=== PATIENT | male | born 1955 | race Caucasian/White ===

== ENCOUNTER 2020-01-20 14:13 | Outpatient (REF) | payer MEDICARE, SELFPAY | END 2020-01-20 14:14 | disposition home or self-care (01) | LOC: HO.LAB 14:13 | PROVIDERS: PCP Internal Medicine; Visit Provider Internal Medicine | DX: Z20.828 Contact with and (suspected) exposure to other viral communicable diseases (principal) | CPT/HCPCS: C9803; U0003 ==

== ENCOUNTER 2020-04-04 07:16 | Outpatient (REF) | payer MEDICARE, MEDICAID, SELFPAY ==
[2020-04-04 08:08] LABS: MANUAL DIFF FLAG NO
[2020-04-04 08:20] LABS: Basophils Percent Auto 0.2 % (0-2); Eosinophils Absolute Auto 0.1 X10*3/uL (0.0-0.4); Hemoglobin 12.8 g/dl (14.0-18.0); Imm Gran Abs Auto 0.02 X10*3/uL (0.00-0.03); Imm Gran Pct Auto 0.2 % (0.0-0.4); Lymphocytes Absolute Auto 2.5 X10*3/uL (1.2-4.9); Lymphocytes Percent Auto 27.9 % (20-40); Mean Corpuscular HGB Conc 32.8 g/dl (31.0-36.0); Mean Corpuscular Hemoglobin 30.5 pg (27.0-33.0); Mean Corpuscular Volume 93.1 fL (80-98); Mean Platelet Volume 12.7 fL (9.4-12.4); Monocytes Absolute Auto 0.6 X10*3/uL (0.1-1.2); Monocytes Percent Auto 6.5 % (2-11); Neutrophils Absolute Auto 5.7 X10*3/uL (2.0-8.3); Neutrophils Percent Auto 64.2 % (45-73); Platelet Count 178 X10*3/uL (160-400); Red Blood Count 4.19 X10*6/uL (4.60-5.80); White Blood Count 8.9 X10*3/uL (4.8-10.8)
[2020-04-04 08:46] LABS: Glucose Urine UA NEG (NEG); Leukocyte Esterase Urine NEG (NEG); Nitrite Urine NEG (NEG); Specific Gravity - Urine >= 1.030 (1.005-1.025); Urine Blood TRACE (NEG); Urine Ketones NEG (NEG); Urine Protein 2+ MG/DL (NEG-TRACE)
[2020-04-04 08:50] LABS: Appearance Urine CLEAR; Color Urine YELLOW
[2020-04-04 08:57] LABS: Alanine Aminotransferase 35 U/L (0-40); Albumin Level 3.7 g/dL (3.5-5.0); Alkaline Phosphatase 140 U/L (39-117); Anion Gap 12 (12-20); Aspartate Amino Transferase 37 U/L (5-37); Bilirubin Total 0.5 mg/dL (0.0-1.0); Blood Urea Nitrogen 16 mg/dL (9-16); Calcium 8.9 mg/dL (8.4-10.2); Carbon Dioxide 31 mmol/L (22-29); Chloride 103 mmol/L (96-108); Cholesterol 136 mg/dL; Estimated Glomerular Filt Rate > 60; Glucose Fasting 174 mg/dL (60-99); HDL Cholesterol 29 mg/dL; LDL Cholesterol Calculated 70 mg/dl; Potassium 4.3 mmol/l (3.3-5.1); Sodium 142 mmol/L (135-145); Total Protein 6.7 g/dL (6.5-8.0); Triglycerides 188 mg/dL
[2020-04-04 08:58] LABS: Creatinine Urine 132.24 mg/dL
[2020-04-04 09:01] LABS: WBC Urine 0 /HPF (0-4)
[2020-04-04 09:02] LABS: Mucus Urine 1+ /LPF; Squamous Epithelial Cell Urine 1+ /LPF
[2020-04-04 09:12] LABS: TSH reflex Free T4 1.18 mIU/mL (0.32-4.0)
[2020-04-04 09:13] LABS: Microalbum/Creatinine Ratio Ur 669.2 ug/mg cr
[2020-04-04 09:25] LABS: Vitamin B12 252 pg/mL (200-900)
[2020-04-04 09:29] LABS: Estimated Average Glucose 232 mg/dL; Hemoglobin A1c % 9.7 %
== END 2020-04-04 07:17 | disposition home or self-care (01) ==
LOC: HO.LAB 07:16
PROVIDERS: PCP Internal Medicine; Visit Provider Internal Medicine
DX: E11.42 Type 2 diabetes mellitus with diabetic polyneuropathy (principal); I10 Essential (primary) hypertension; E78.00 Pure hypercholesterolemia, unspecified; I25.10 Atherosclerotic heart disease of native coronary artery without angina pectoris; K59.00 Constipation, unspecified; E66.01 Morbid (severe) obesity due to excess calories
CPT/HCPCS: 36415; 80053; 80061; 81001; 82043; 82607; 82746; 83036; 84443; 85025

== ENCOUNTER 2020-05-09 10:27 | Inpatient (IN) | payer MEDICARE, MEDICAID, SELFPAY ==
[2020-05-09] VITALS (17 sets, daily range): BP systolic 40–159; BP diastolic 22–106; PULSE 69–92; RESP 13–27; TEMP 36.3–37.3; O2SAT 93–98; BMI 43.7
--- NOTE | ~2020-05-09 | CT_ITS ---
EXAMINATION: CT PELVIS WITHOUT CONTRAST CLINICAL INFORMATION: Rectal abscess. Evaluate depth and tracking. COMPARISON: None TECHNIQUE: Helical scanning was performed with submillimeter collimation through the pelvis. Sagittal and coronal multiplanar 2-D reconstructions were obtained. This CT examination was performed using dose optimization techniques as appropriate, variously including the following: *Automated exposure control *Adjustment of mA and/or kV according to patient size (this includes techniques or standardized protocols for targeted exams where dose is matched to indication/reason for exam; i.e. extremities or head) *Use of iterative reconstruction technique DLP: 799 mGy-cm FINDINGS: PELVIS: There is a right pararectal soft tissue induration with punctate gas collection. The induration is 5.80 cm in AP length and 1.4 cm thick and likely arises from the posterior anorectal wall. Rest of visualized rectum, sigmoid colon and the descending colon appears unremarkable. Appendix is normal caliber. The small bowel loops are normal caliber. No abnormal pelvic or inguinal lymph nodes seen. OSSEOUS STRUCTURES: No lytic or sclerotic process seen. CT/CT pelvis wo con IMPRESSION: Right perirectal soft tissue induration extending from the posterior anorectal wall. There is punctate air collection within this induration. Not a whole lot of abscess visualized for drainage.
--- NOTE | 2020-05-09 12:03 | ED.SKABFB ---
HPI - Skin/Abscess/Foreign Bdy General Chief complaint: Skin/Abscess/Foreign Body Stated complaint: abscess 5 days Time Seen by Provider: 05/09/20 11:04 Source: patient Mode of arrival: ambulatory History of Present Illness HPI narrative: 64-year-old male with a past medical history of hypertension, constipation, BPH, CAD, diabetes, polyneuropathy, quadruple bypass, major depression disorder, obesity, sick, hyperlipidemia vitamin-D deficiency, complaining of rectal/gluteal abscess x5 days. Reports area is worsening/growing, painful, with perianal itching. Denies fever, chills, drainage from area, pain with BMs/difficulty having BM, dysuria/hematuria or rectal bleeding, abdominal pain MD complaint: abscess/boil Related Data Home Medications Medication Instructions Recorded Confirmed atorvastatin 80 mg tablet 80 mg PO DAILY 03/06/20 03/06/20 gabapentin 400 mg capsule 400 mg PO BID 03/06/20 03/06/20 lisinopril 10 mg tablet 10 mg PO DAILY 03/06/20 03/06/20 tramadol 50 mg tablet 50 mg PO Q6H PRN 03/06/20 03/06/20 miscellaneous medical supply ea MISCELLANEOUS 03/21/20 Previous Rx's Medication Instructions Recorded lancets #100 ea 01/10/20 fluticasone propionate 110 2 puff INHALATION BID #12 g 02/10/20 mcg/actuation HFA aerosol inhaler fluticasone propionate 50 1 spray INTRANASAL DAILY #15.8 ml 02/10/20 mcg/actuation nasal spray,suspension metoprolol tartrate 50 mg tablet 50 mg PO BID #180 tab 03/11/20 furosemide 20 mg tablet 20 mg PO QAM PRN 30 Days #30 tab 03/16/20 diaper,brief,adult,disposable #100 ea 03/27/20 albuterol sulfate 90 mcg/actuation 2 puff PO Q4-6H PRN #8.5 g 04/18/20 aerosol inhaler aspirin 81 mg tablet,delayed 81 mg PO DAILY #90 tab 05/01/20 release Allergies Allergy/AdvReac Type Severity Reaction Status Date / Time hydromorphone [Dilaudid] AdvReac Unknown confusion Verified 03/06/20 08:56 From DILAUDID AdvReac Severe CONFUSION/H Uncoded 03/06/20 08:56 ALLUCIATION S From PERCOCET AdvReac Intermediate AGITATION Uncoded 03/06/20 08:56 Review of Systems Review of Systems: Constitutional: No Fever, No Chills Gastrointestinal: No Nausea, No Vomiting, No Diarrhea, No Constipation, No Abdominal pain Genitourinary: No Dysuria, No Hematuria, +rectal pain Skin: +abscess Yes all other systems are reviewed and are negative PMFSH Past Medical History Attestation statement: The following information was validated with the patient. Medical History Benign essential hypertension Benign prostatic hyperplasia with urinary frequency Constipation Coronary artery disease Diabetes mellitus Diabetic polyneuropathy Major depressive disorder, recurrent Obesity (BMI 30-39.9) Obstructive sleep apnea Pure hypercholesterolemia Vitamin D deficiency Surgical History History of prostate surgery History of quadruple bypass Hx of cholecystectomy Hx of cystoscopy Family History Family History Father Lung cancer Mother Diabetes Hypertension Stomach cancer Social History Social History Alcohol intake: former Smoking Status: Former smoker Advance Directives: Yes Advance Directives Information Provided: Yes Advance Directives on File: No Physical Exam Vital Signs: Vital Signs: Last Vital Signs Temp 98 F 05/09/20 10:30 Pulse 75 05/09/20 12:55 Resp 16 05/09/20 12:55 BP 155/66 H 05/09/20 12:55 Body Mass Index 43.7 Const: General: cooperative, healthy appearing, comfortable and no acute distress Orientation/consciousness: patient oriented x3 Limitations: no limitations HENMT: Head: Yes normal to inspection Ears: hearing grossly normal bilaterally General nose exam: Normal external nose present Face and sinus: Yes normal facial exam Eyes: General: appearance normal, both eyes and all related structures EOM: EOMs intact bilaterally Neck: Neck: Yes normal visual inspection Resp: Effort & Inspection: normal respiratory effort Cardio: Rate: regular rate GI: Other: +Right sided gluteal abscess with +induration and small central fluctuance with surrounding cellulitis. Right sided perirectal ttp and slight fluctuance Inspection: Yes normal to inspection Skin: Rashes: no rashes Wounds: no wounds Neuro: General: patient oriented x3 Extrem: General: Yes normal to inspection Course Course Course Narrative: -leukocytosis of 15.9. H&H at baseline. Sodium 131, corrected for hyperglycemia is 134 - Patient with an SLY with BUN of 25 & Creatinine of 1.59 >> IV Zosyn ordered to cover for severe sepsis Patient's ideal body weight is 121 lb or 55kg x 30cc/kg sepsis fluids = 1650 cc of IVF > 2L ordered due to renal dysfunction -1345-- lactic 1.4 CT pelvis wo con IMPRESSION: Right perirectal soft tissue induration extending from the posterior anorectal wall. There is punctate air collection within this induration. Not a whole lot of abscess visualized for drainage. >> Dr. Crowley Surgery consulted and will evaluate patient in the ED. Patient NPO since 5 am. -patient will be admitted to surgical service for further management and I&D in OR MDM - Skin/Abscess/Foreign Bdy MDM Narrative Medical decision making narrative: 64-year-old male with a past medical history of hypertension, constipation, BPH, CAD, diabetes, polyneuropathy, quadruple bypass, major depression disorder, obesity, sick, hyperlipidemia vitamin-D deficiency, complaining of rectal/gluteal abscess x5 days. On exam mildly tachypneic likely from obesity, NAD/nontoxic-appearing, physical exam as above. Concern for perianal abscess vs perirectal involvement. Will obtain CT to rule out rectal involvement Low concern for severe sepsis at this time Plan: Labs, CT, anticipated I&D Differential Diagnosis Differential diagnosis: Likely abscess of skin or subcutaneous tissue Medical Records Attestation: I reviewed the patient's medical records. Lab Data Result diagrams: 05/09/20 12:05/09/20 12: Labs: Lab Results 05/09/20 05/09/20 05/09/20 Range/Units 12: 12: 12:01 WBC 15.9 H (4.8-10.8) X10*3/uL RBC 4.39 L (4.60-5.80) X10*6/uL Hgb 13.4 L (14.0-18.0) g/dl Hct 40.1 L (42-52) % MCV 91.3 (80-98) fL MCH 30.5 (27.0-33.0) pg MCHC 33.4 (31.0-36.0) g/dl RDW 11.9 (11.0-16.0) % Plt Count 188 (160-400) X10*3/uL MPV 12.5 H (9.4-12.4) fL Immature Gran % (Auto) 0.4 (0.0-0.4) % Neut % (Auto) 81.1 H (45-73) % Lymph % (Auto) 10.6 L (20-40) % [place] % (Auto) 7.0 (2-11) % Eos % (Auto) 0.8 (0-4) % Baso % (Auto) 0.1 (0-2) % Lymph # (Auto) 1.7 (1.2-4.9) X10*3/uL [place] # (Auto) 1.1 (0.1-1.2) X10*3/uL Eos # (Auto) 0.1 (0.0-0.4) X10*3/uL Baso # (Auto) 0.0 (0.0-0.2) X10*3/uL Abs Immat Gran (auto) 0.07 H (0.00-0.03) X10*3/uL Absolute Neuts (auto) 12.9 H (2.0-8.3) X10*3/uL Absolute Nucleated RBC 0.000 (0.0-0.012) X10*3/uL Nucleated RBC % (auto) 0.0 (0.0-0.2) /100WBC Hold Blue Top SEE NOTE Sodium 131 L (135-145) mmol/L Potassium 4.5 (3.3-5.1) mmol/L Chloride 97 (96-108) mmol/L Carbon Dioxide 22 (22-29) mmol/L Anion Gap 17 (12-20) BUN 25 H D (9-16) mg/dL Creatinine 1.59 H (0.5-1.4) mg/dL Estim Creat Clear Calc 52.8 Estimated GFR 44 Random Glucose 292 H (60-115) mg/dL Lactic Acid (0.5-2.0) mmol/L Calcium 8.2 L D (8.4-10.2) mg/dL COVID-19 ([facility]TE) (Negative) COVID-19 Clin Com 05/09/20 05/09/20 Range/Units 12:54 13:20 WBC (4.8-10.8) X10*3/uL RBC (4.60-5.80) X10*6/uL Hgb (14.0-18.0) g/dl Hct (42-52) % MCV (80-98) fL MCH (27.0-33.0) pg MCHC (31.0-36.0) g/dl RDW (11.0-16.0) % Plt Count (160-400) X10*3/uL MPV (9.4-12.4) fL Immature Gran % (Auto) (0.0-0.4) % Neut % (Auto) (45-73) % Lymph % (Auto) (20-40) % [place] % (Auto) (2-11) % Eos % (Auto) (0-4) % Baso % (Auto) (0-2) % Lymph # (Auto) (1.2-4.9) X10*3/uL [place] # (Auto) (0.1-1.2) X10*3/uL Eos # (Auto) (0.0-0.4) X10*3/uL Baso # (Auto) (0.0-0.2) X10*3/uL Abs Immat Gran (auto) (0.00-0.03) X10*3/uL Absolute Neuts (auto) (2.0-8.3) X10*3/uL Absolute Nucleated RBC (0.0-0.012) X10*3/uL Nucleated RBC % (auto) (0.0-0.2) /100WBC Hold Blue Top Sodium (135-145) mmol/L Potassium (3.3-5.1) mmol/L Chloride (96-108) mmol/L Carbon Dioxide (22-29) mmol/L Anion Gap (12-20) BUN (9-16) mg/dL Creatinine (0.5-1.4) mg/dL Estim Creat Clear Calc Estimated GFR Random Glucose (60-115) mg/dL Lactic Acid 1.4 (0.5-2.0) mmol/L Calcium (8.4-10.2) mg/dL COVID-19 ([facility]VETTE) Negative (Negative) COVID-19 Clin Com See Note Discharge Plan Discharge Clinical Impression: Abscess, perirectal Patient Disposition: Admitted As Inpatient
[2020-05-09 12:05] LABS: MANUAL DIFF FLAG NO
[2020-05-09 12:07] LABS: Basophils Percent Auto 0.1 % (0-2); Eosinophils Absolute Auto 0.1 X10*3/uL (0.0-0.4); Eosinophils Percent Auto 0.8 % (0-4); Hematocrit 40.1 % (42-52); Hemoglobin 13.4 g/dl (14.0-18.0); Imm Gran Abs Auto 0.07 X10*3/uL (0.00-0.03); Imm Gran Pct Auto 0.4 % (0.0-0.4); Lymphocytes Absolute Auto 1.7 X10*3/uL (1.2-4.9); Lymphocytes Percent Auto 10.6 % (20-40); Mean Corpuscular HGB Conc 33.4 g/dl (31.0-36.0); Mean Corpuscular Hemoglobin 30.5 pg (27.0-33.0); Mean Corpuscular Volume 91.3 fL (80-98); Mean Platelet Volume 12.5 fL (9.4-12.4); Monocytes Absolute Auto 1.1 X10*3/uL (0.1-1.2); Neutrophils Absolute Auto 12.9 X10*3/uL (2.0-8.3); Neutrophils Percent Auto 81.1 % (45-73); Platelet Count 188 X10*3/uL (160-400); Red Blood Count 4.39 X10*6/uL (4.60-5.80); Red Cell Distribution Width 11.9 % (11.0-16.0); White Blood Count 15.9 X10*3/uL (4.8-10.8)
[2020-05-09 12:34] LABS: Anion Gap 17 (12-20); Blood Urea Nitrogen 25 mg/dL (9-16); Calcium 8.2 mg/dL (8.4-10.2); Carbon Dioxide 22 mmol/L (22-29); Chloride 97 mmol/L (96-108); Creatinine Clr Calc Pharmacy 52.8; Estimated Glomerular Filt Rate 44; Glucose Random 292 mg/dL (60-115); Potassium 4.5 mmol/L (3.3-5.1); Sodium 131 mmol/L (135-145)
[2020-05-09] MEDS: Piperacillin Sodium/Tazobactam 3.375 GM in 0.9 % Sodium Chloride 50 ML IV ×2 (13:14→20:10)
[2020-05-09] MEDS: 0.9 % Sodium Chloride 1,000 ML 999 ML IVCONT ×2 (13:14→14:02)
[2020-05-09 13:39] LABS: Lactic Acid 1.4 mmol/L (0.5-2.0)
[2020-05-09] MEDS: Acetaminophen 325 MG TABLET 650 MG PO (13:40)
--- NOTE | 2020-05-09 13:54 | PC.NURSE ---
pt will have rectal abscess drained in or with dr dominguez. pt aware.
--- NOTE | 2020-05-09 14:02 | PM.HPGS ---
History of Present Illness History of Present Illness Date of Service: 05/09/20 Chief complaint: PERIRECTAL ABSCESS Narrative: Regan Gibbs is a 64 year old male, diabetic, with severe pain near the anus for about 5 days now. He says this seems to be worsening. He denies any fever or chills. He says he has never had any similar problems in the past. He denies any drainage from the area. He says his blood sugars have been stable. Review of Systems Constitutional: Constitutional: Denies chills and Denies fever(s) Cardiovascular: Cardiovascular: Denies chest pain, Denies dyspnea and Denies dyspnea on exertion Respiratory: Respiratory: Denies cough, Denies dyspnea and Denies dyspnea on exertion Gastrointestinal: Gastrointestinal: Denies hematochezia and Denies change in bowel habits Genitourinary: Genitourinary: Denies hematuria and Denies difficulty urinating Musculoskeletal: Musculoskeletal: Denies back pain and Denies limited range of motion Neurologic: Denies focal weakness and Denies convulsions Psychiatric: Psychiatric: Denies depression and Denies mood swings [facility] Past Medical History Medical History Benign essential hypertension Benign prostatic hyperplasia with urinary frequency Constipation Coronary artery disease Diabetes mellitus Diabetic polyneuropathy Major depressive disorder, recurrent Obesity (BMI 30-39.9) Obstructive sleep apnea Pure hypercholesterolemia Vitamin D deficiency Family History Family History Father Lung cancer Mother Diabetes Hypertension Stomach cancer Surgical History Surgical History History of prostate surgery History of quadruple bypass Hx of cholecystectomy Hx of cystoscopy Social History Social History Alcohol intake: former Smoking Status: Never smoker Use of substances other than those prescribed or required for medical reasons: No Advance Directives: Yes Advance Directives Information Provided: Yes Advance Directives on File: No Advance Directives Date on File: 05/09/20 Meds Allergies Allergy/AdvReac Type Severity Reaction Status Date / Time hydromorphone [Dilaudid] AdvReac Unknown confusion Verified 05/09/20 14:31 From DILAUDID AdvReac Severe CONFUSION/H Uncoded 03/06/20 08:56 ALLUCIATION S From PERCOCET AdvReac Intermediate AGITATION Uncoded 03/06/20 08:56 Active Medications: Current Medications Generic Name Dose Route Start Last Admin Trade Name Femi PRN Reason Stop Dose Admin Pharmacy Consult 1 each 05/09/20 13:44 Consult Rx Perform Med Rec MISCELLANE ONCE PRN Consult order Home Medications Medication Instructions Recorded Confirmed Last Taken Type atorvastatin 80 mg tablet 80 mg PO DAILY 03/06/20 03/06/20 Unknown History gabapentin 400 mg capsule 800 mg PO BID 03/06/20 03/06/20 Unknown History lisinopril 10 mg tablet 10 mg PO DAILY 03/06/20 03/06/20 Unknown History tramadol 50 mg tablet 50 mg PO Q6H PRN 03/06/20 03/06/20 Unknown History ferrous sulfate [FeroSul] 325 mg PO DAILY 05/09/20 Unknown History furosemide 20 mg PO DAILY PRN 05/09/20 Unknown History paroxetine HCl 40 mg PO DAILY 05/09/20 Unknown History tamsulosin 0.4 mg PO DAILY 05/09/20 Unknown History Physical Exam Vital Signs: Vital Signs: Last Vital Signs Temp 98 F 05/09/20 10:30 Pulse 75 05/09/20 12:55 Resp 16 05/09/20 12:55 BP 155/66 H 05/09/20 12:55 Body Mass Index 43.7 Const: Other: Complains of pain, appears obese General: no acute distress Orientation/consciousness: patient oriented x3 Neck: Neck: Yes no lymphadenopathy Resp: Auscultation: clear to auscultation bilaterally Cardio: Rhythm: regular rhythm GI: Other: Very tender induration about 4-5 cm, on the right perianal area near the buttock, no draining sinus, Palpation (GI): Soft to palpation, nontender and no guarding Neuro: General: patient oriented x3 Results Results Labs: Short CBC 05/09/20 Range/Units 12:01 WBC 15.9 H (4.8-10.8) X10*3/uL Hgb 13.4 L (14.0-18.0) g/dl Hct 40.1 L (42-52) % Plt Count 188 (160-400) X10*3/uL BMP 05/09/20 12:01 Sodium 131 L Potassium 4.5 Chloride 97 Carbon Dioxide 22 BUN 25 H D Creatinine 1.59 H Calcium 8.[address] scan - pelvis: report reviewed and image reviewed Assessment and Plan (1) Abscess, perirectal: Status: Acute His CAT scan does show a perirectal abscess the right side. He has leukocytosis. There was small amount of gas in the area. I therefore explained to him that it is best to proceed with I and D of this area. This will be done under anesthesia in the operating room as he is very tender. I explained him the technique of the procedure. I reviewed with him the risks including but not limited to bleeding, infections, poor healing, as well as the benefits and alternatives. He understands and has given consent. Procedures Date of Service Date of Service: 05/09/20
[2020-05-09 14:09] LABS: COVID-19 Test Negative (Negative)
--- NOTE | 2020-05-09 14:11 | PC.NURSE ---
report given to isaias rn.
--- NOTE | 2020-05-09 14:30 | HO.ANESPROP2 ---
[facility] Active Problems Active Problems: All Active Problems (Updated 05/09/20 @ 13:51 by SLOAN Polanco) Abscess, perirectal (Acute) Major depressive disorder, recurrent (Acute) Benign prostatic hyperplasia with urinary frequency (Acute) Constipation (Acute) Obstructive sleep apnea (Acute) Vitamin D deficiency (Acute) Diabetic polyneuropathy (Acute) Diabetes mellitus (Acute) Obesity (BMI 30-39.9) (Acute) Benign essential hypertension (Acute) Pure hypercholesterolemia (Acute) Coronary artery disease (Acute) Past Medical History Medical History Benign essential hypertension Benign prostatic hyperplasia with urinary frequency Constipation Coronary artery disease Diabetes mellitus Diabetic polyneuropathy Major depressive disorder, recurrent Obesity (BMI 30-39.9) Obstructive sleep apnea Pure hypercholesterolemia Vitamin D deficiency Family History Family History Father Lung cancer Mother Diabetes Hypertension Stomach cancer Surgical History Surgical History History of prostate surgery History of quadruple bypass Hx of cholecystectomy Hx of cystoscopy Social History Social History Alcohol intake: former Smoking Status: Former smoker Advance Directives: Yes Advance Directives Information Provided: Yes Advance Directives on File: No Meds Allergies Allergy/AdvReac Type Severity Reaction Status Date / Time hydromorphone [Dilaudid] AdvReac Unknown confusion Verified 03/06/20 08:56 From DILAUDID AdvReac Severe CONFUSION/H Uncoded 03/06/20 08:56 ALLUCIATION S From PERCOCET AdvReac Intermediate AGITATION Uncoded 03/06/20 08:56 Active Medications: Current Medications Generic Name Dose Route Start Last Admin Trade Name Freq PRN Reason Stop Dose Admin Cefotetan Disodium 2 gm in 50 mls @ 100 mls/hr 05/09/20 14:07 Cefotan IV 05/09/20 14:36 PREOP ONE Sodium Chloride 1,000 mls @ 80 mls/hr 05/09/20 14:15 Ns IVCONT .[id number] [facility] Pharmacy Consult 1 each 05/09/20 13:44 Consult Rx Perform Med Rec MISCELLANE ONCE PRN Consult order Sodium Chloride 3 ml 05/09/20 16:00 0.9 % Sodium Chloride Flush 3 Ml Syringe IVFLUSH QSHIFT [facility] Home Medications Medication Instructions Recorded Confirmed Last Taken Type atorvastatin 80 mg tablet 80 mg PO DAILY 03/06/20 03/06/20 Unknown History gabapentin 400 mg capsule 400 mg PO BID 03/06/20 03/06/20 Unknown History lisinopril 10 mg tablet 10 mg PO DAILY 03/06/20 03/06/20 Unknown History tramadol 50 mg tablet 50 mg PO Q6H PRN 03/06/20 03/06/20 Unknown History miscellaneous medical supply ea MISCELLANEOUS 03/21/20 Unknown History Exam Exam Date and Time: May 09, 2020 1430 Height,Weight and Vital Signs: Height 5 ft 4 in Weight 115.666 kg Last Vital Signs Temp 97.8 F 05/09/20 14:09 Pulse 80 05/09/20 14:09 Resp 18 05/09/20 14:09 BP 148/90 H 05/09/20 14:09 Pulse Ox 97 05/09/20 14:09 Pertinent Lab Results Pertinent Lab Results: Laboratory Tests 05/09/20 05/09/20 05/09/20 12:01 12:01 12:01 WBC 15.9 H RBC 4.39 L Hgb 13.4 L Hct 40.1 L MCV 91.3 MCH 30.5 MCHC 33.4 RDW 11.9 Plt Count 188 MPV 12.5 H Immature Gran % (Auto) 0.4 Neut % (Auto) 81.1 H Lymph % (Auto) 10.6 L [place] % (Auto) 7.0 Eos % (Auto) 0.8 Baso % (Auto) 0.1 Lymph # (Auto) 1.7 [place] # (Auto) 1.1 Eos # (Auto) 0.1 Baso # (Auto) 0.0 Abs Immat Gran (auto) 0.07 H Absolute Neuts (auto) 12.9 H Absolute Nucleated RBC 0.000 Nucleated RBC % (auto) 0.0 Hold Blue Top SEE NOTE Sodium 131 L Potassium 4.5 Chloride 97 Carbon Dioxide 22 Anion Gap 17 BUN 25 H D Creatinine 1.59 H Estim Creat Clear Calc 52.8 Estimated GFR 44 Random Glucose 292 H Lactic Acid Calcium 8.2 L D COVID-19 ([facility]TE) COVID-19 Clin Com 05/09/20 05/09/20 12:54 13:20 WBC RBC Hgb Hct MCV MCH MCHC RDW Plt Count MPV Immature Gran % (Auto) Neut % (Auto) Lymph % (Auto) [place] % (Auto) Eos % (Auto) Baso % (Auto) Lymph # (Auto) [place] # (Auto) Eos # (Auto) Baso # (Auto) Abs Immat Gran (auto) Absolute Neuts (auto) Absolute Nucleated RBC Nucleated RBC % (auto) Hold Blue Top Sodium Potassium Chloride Carbon Dioxide Anion Gap BUN Creatinine Estim Creat Clear Calc Estimated GFR Random Glucose Lactic Acid 1.4 Calcium COVID-19 (YVETTE) Negative COVID-19 Clin Com See Note Airway Mallampati Class: II TM Dist: >3cm Neck ROM: Full Assessment and Plan Assessment Anesthesia Assessment: Anesthesia Plan Discussed and Chart Reviewed Final Anesthetic Review NPO: Yes ASA Class: III Final Preanesthetic Review: No Changes in Pt Med Stat, Meds/Allgs Chart Reviewed, Consent Obtained/Reviewed and Anes Risks/Benef Reviewed Patient Risk: Intermediate Procedure Risk: Low Assessment/Block/Sedation in SS: Assess/Block/Sedation-SS Anesthetic Plan Anesthetic Plan: MAC: Disposition: Standard PACU
--- NOTE | 2020-05-09 15:18 | W.PM.OPN ---
Operative Note Operative Note Date of Service: 05/09/20 Narrative: Preop diagnosis: Right perirectal abscess Postop diagnosis: Right perirectal abscess Procedure: Exam under anesthesia, Incision and drainage of a right perirectal abscess Surgeon: Tae Crowley MD The patient is a 64-year-old diabetes male who came to the emergency room today because of severe pain in anal area. Examination at shown a very tender, large duration on the right perirectal area. His CAT scan was also sent with a perirectal abscess with note of bubbles of air. I therefore explained to him it was best to proceed with I and D under anesthesia. I discussed with him the technique the procedure. I reviewed the risks, benefits, and alternatives and he had given consent. He was brought to the operating room and placed in right lateral decubitus position under monitored anesthesia care. The left buttock was retracted away from the right buttock with wide tape. The perirectal area on the right was prepped and draped in the usual sterile fashion. A surgical time-out was done. The patient received Cefotan 2 g IV preoperatively. The induration on the right perirectal area was noted. This was about 5 cm in widest dimension. I infiltrated the middle part of this induration using lidocaine 1%. I then made a cruciate incision in the skin using a blade 15 . This was carried down through the full-thickness of the skin into the subcutaneous layer. I proceeded to do blunt dissection using a hemostat through this incision until I entered the abscess cavity. Large amounts of thick yellow pus was drained. Cultures of the abscess was done and sent as a specimen. I probed the abscess cavity with my finger to make sure that we had broken down all loculations. I made sure that we had drained all the abscess by examining the abscess cavity. Examination of the abscess cavity did not reveal any necrotizing process. I copiously irrigated the abscess cavity. I applied light packing with iodoform 1 in. Dressings were applied. The procedure was completed. The patient tolerated well. There were no immediate complications. Estimated blood loss was about 15 cc. The patient was then transferred to the recovery room with stable vital signs.
--- NOTE | 2020-05-09 15:25 | PM.OP ---
Brief Operative Note Date of Service: 05/09/20 Pre-op diagnosis: right perirectal abscess Post-op diagnosis: same Procedure: EUA, I and D of a right perirectal abscess Surgeon: Tae Crowley MD Anesthesia: MAC and local Estimated blood loss (mL): 15 Pathology: other (cultures) Condition: stable Disposition: PACU
[2020-05-09 16:00] LABS: Glucose, Whole Blood 187 mg/dL (60-115)
--- NOTE | 2020-05-09 16:28 | PM.EVENT ---
Event Note Date of Service: 05/09/20 Event Note: seen postop Underwent I and D of a perirectal abscess earlier Large amounts of pus had been drained He looks comfortable Seems to have adequate pain management IV Polinasyn Patient is a diabetic - hospitalist consulted Pain management Hope to be able to DC home tomorrow -has packing in place
--- NOTE | 2020-05-09 16:55 | P.EN_ITS ---
Event Note Date of Service: 05/09/20 Event Note: pt reevaluated in PACU rapid response was called - pt was hypotensive at 59sys with BP cuff, manual he stated he did not feel well was given 2 liters bolus seemed to be not oriented for a few minutes now pt back to baseline mental status BP 135/56 he is alert, joking around denies any chest pain dressings dry Hospitalists came to evaluate lactic acid ordered ok to send to med surg with monitor technician episode lasted about 40 minutes
[2020-05-09 17:15] LABS: Lactic Acid 1.9 mmol/L (0.5-2.0)
--- NOTE | 2020-05-09 17:51 | P.HPHOSP_ITS ---
History of Present Illness Date of Service: 05/09/20 Chief Complaint: Medical management 64 year old mohawk speaking man with history of hypertension, CAD, diabetes mellitus admitted by General surgery and is status post while in the PACU a rapid response was called due to hypotension. Systolic blood pressure was in the 40s at point and patient was not responsive. Apparently reported that he did not feel well. It took him several minutes however he did come around and blood pressure improved to systolic 130s. He denied chest pain, shortness of. [facility] Medical History Benign essential hypertension Benign prostatic hyperplasia with urinary frequency Constipation Coronary artery disease Diabetes mellitus Diabetic polyneuropathy Major depressive disorder, recurrent Obesity (BMI 30-39.9) Obstructive sleep apnea Pure hypercholesterolemia Vitamin D deficiency Family History Father Lung cancer Mother Diabetes Hypertension Stomach cancer Surgical History History of prostate surgery History of quadruple bypass Hx of cholecystectomy Hx of cystoscopy Social History Alcohol intake: former Smoking Status: Never smoker Use of substances other than those prescribed or required for medical reasons: No Advance Directives: Yes Advance Directives Information Provided: Yes Advance Directives on File: No Advance Directives Date on File: 05/09/20 Meds Allergies Allergy/AdvReac Type Severity Reaction Status Date / Time hydromorphone [Dilaudid] AdvReac Unknown confusion Verified 05/09/20 14:31 From DILAUDID AdvReac Severe CONFUSION/H Uncoded 03/06/20 08:56 ALLUCIATION S From PERCOCET AdvReac Intermediate AGITATION Uncoded 03/06/20 08:56 Active Medications: Current Medications Generic Name Dose Route Start Last Admin Trade Name Freq PRN Reason Stop Dose Admin Acetaminophen 650 mg 05/09/20 14:31 Acetaminophen 325 Mg Tablet PO ONCE PRN Pain, Mild (Pain Scale 1-3) Albuterol Sulfate 2 puff 05/09/20 16:07 Albuterol Sulfate 90 Mcg 8 Gm Inhaler INHALE Q4H PRN for wheezing Aspirin 81 mg 05/10/20 09:00 Aspirin Enteric Coated 81 Mg Tablet. PO DAILY [facility] Atorvastatin Calcium 80 mg 05/10/20 09:00 Atorvastatin Calcium 80 Mg Tablet PO DAILY [facility] Fentanyl 50 mcg 05/09/20 14:31 Fentanyl Citrate/Pf 100 Mcg/2 Ml Vial IVPUSH Q5M PRN Pain, Severe (Pain Scale 7-10) Fluticasone Propionate 1 puff 05/09/20 20:00 Fluticasone Propionate 250 Mcg Blst.W.Dev INHALE RBID [facility] Fluticasone Propionate 1 spray 05/10/20 09:00 Fluticasone Propionate Nasal 16 Gm [place] NOSTRIL-B DAILY [facility] Furosemide 20 mg 05/09/20 16:07 Furosemide 20 Mg Tablet PO DAILY PRN swelling Protocol Gabapentin 800 mg 05/09/20 21:00 Gabapentin 400 Mg Capsule PO BID [facility] Sodium Chloride 1,000 mls @ 60 mls/hr 05/09/20 14:15 Ns IVCONT .[id number] [facility] Lactated Ringer's 1,000 mls @ 20 mls/hr 05/09/20 15:00 Lr IVCONT .Q24H [facility] Insulin Glargine 10 unit 05/10/20 09:00 Insulin Glargine,Hum.Rec.Anlog 100 Unit/Ml 10 Ml Vial SUBCUT DAILY [facility] Ketorolac Tromethamine 30 mg 05/09/20 14:31 Ketorolac Tromethamine 30 Mg/Ml Vial IVPUSH ONCE PRN Pain, Moderate (Pain Scale 4-6 Lisinopril 10 mg 05/10/20 09:00 Lisinopril 10 Mg Tablet PO DAILY [facility] Protocol Metoprolol Tartrate 50 mg 05/09/20 21:00 Metoprolol Tartrate 50 Mg Tablet PO BID [facility] Protocol Morphine Sulfate 2 mg 05/09/20 15:12 Morphine Sulfate 2 Mg/Ml Cartridge IVPUSH Q3H PRN Pain, Severe (Pain Scale 7-10) Ondansetron HCl 4 mg 05/09/20 14:31 Ondansetron Hcl 4 Mg/2 Ml Vial IVPUSH ONCE PRN Nausea and Vomiting Oxycodone HCl 5 mg 05/09/20 15:12 Oxycodone Hcl Immed Release 5 Mg Tablet PO Q4H PRN Pain, Moderate (Pain Scale 4-6 Paroxetine HCl 40 mg 05/10/20 09:00 Paroxetine Hcl 40 Mg Tablet PO DAILY [facility] Pharmacy Consult 1 each 05/09/20 13:44 Consult Rx Perform Med Rec MISCELLANE ONCE PRN Consult order Sodium Chloride 3 ml 05/09/20 16:00 0.9 % Sodium Chloride Flush 3 Ml [facility] Tamsulosin HCl 0.4 mg 05/10/20 09:00 Tamsulosin Hcl 0.4 Mg Capsule PO DAILY [facility] Home Medications Medication Instructions Recorded Confirmed Last Taken Type atorvastatin 80 mg tablet 80 mg PO DAILY 03/06/20 05/09/20 Unknown History gabapentin 400 mg capsule 800 mg PO BID 03/06/20 05/09/20 Unknown History lisinopril 10 mg tablet 10 mg PO DAILY 03/06/20 05/09/20 Unknown History tramadol 50 mg tablet 50 mg PO Q6H PRN 03/06/20 05/09/20 Unknown History ferrous sulfate [FeroSul] 325 mg PO DAILY 05/09/20 05/09/20 Unknown History furosemide 20 mg PO DAILY PRN 05/09/20 05/09/20 Unknown History insulin glargine 0 unit SUBCUT DAILY 05/09/20 05/09/20 Unknown History paroxetine HCl 40 mg PO DAILY 05/09/20 05/09/20 Unknown History tamsulosin 0.4 mg PO DAILY 05/09/20 05/09/20 Unknown History Physical Exam Vital Signs and Narrative: Vital Signs: Last Vital Signs Temp 98.9 F 05/09/20 16:30 Pulse 90 05/09/20 17:35 Resp 22 H 05/09/20 17:35 BP 118/58 L 05/09/20 17:35 Pulse Ox 94 05/09/20 17:35 Body Mass Index 43.7 Results Labs CBC and Chem 7: 05/09/20 12:01 05/09/20 12:01 Labs: Laboratory Results - last 24 hr 05/09/20 05/09/20 05/09/20 12:01 12:01 12:01 MCV 91.3 MCH 30.5 MCHC 33.4 RDW 11.9 Plt Count 188 MPV 12.5 H Immature Gran % (Auto) 0.4 Neut % (Auto) 81.1 H Lymph % (Auto) 10.6 L [place] % (Auto) 7.0 Eos % (Auto) 0.8 Baso % (Auto) 0.1 Lymph # (Auto) 1.7 [place] # (Auto) 1.1 Eos # (Auto) 0.1 Baso # (Auto) 0.0 Abs Immat Gran (auto) 0.07 H Absolute Neuts (auto) 12.9 H Absolute Nucleated RBC 0.000 Nucleated RBC % (auto) 0.0 Hold Blue Top SEE NOTE Anion Gap 17 Estim Creat Clear Calc 52.8 Estimated GFR 44 POC Glucose Random Glucose 292 H Lactic Acid Calcium 8.2 L D COVID-19 ([facility]) COVID-19 Clin Com 05/09/20 05/09/20 05/09/20 12:54 13:20 15:56 MCV MCH MCHC RDW Plt Count MPV Immature Gran % (Auto) Neut % (Auto) Lymph % (Auto) [place] % (Auto) Eos % (Auto) Baso % (Auto) Lymph # (Auto) [place] # (Auto) Eos # (Auto) Baso # (Auto) Abs Immat Gran (auto) Absolute Neuts (auto) Absolute Nucleated RBC Nucleated RBC % (auto) Hold Blue Top Anion Gap Estim Creat Clear Calc Estimated GFR POC Glucose 187 H Random Glucose Lactic Acid 1.4 Calcium COVID-19 ([facility]) Negative COVID-19 Clin Com See Note 05/09/20 16:47 MCV MCH MCHC RDW Plt Count MPV Immature Gran % (Auto) Neut % (Auto) Lymph % (Auto) [place] % (Auto) Eos % (Auto) Baso % (Auto) Lymph # (Auto) [place] # (Auto) Eos # (Auto) Baso # (Auto) Abs Immat Gran (auto) Absolute Neuts (auto) Absolute Nucleated RBC Nucleated RBC % (auto) Hold Blue Top Anion Gap Estim Creat Clear Calc Estimated GFR POC Glucose Random Glucose Lactic Acid 1.9 Calcium COVID-19 ([facility]) COVID-19 Clin Com Imaging Radiologist's Impressions: Impressions Pelvis CT 05/09/20 12:45 IMPRESSION: Right perirectal soft tissue induration extending from the posterior anorectal wall. There is punctate air collection within this induration. Not a whole lot of abscess visualized for drainage.
--- NOTE | 2020-05-09 18:00 | P.CONIM_ITS ---
History of Present Illness Data of Consult Service Date: 05/09/20 Requesting physician: Tae Crowley Primary Care Provider: Jerry Persaud MD [facility] Reason for consult: Medical Management 64 year old central african speaking man with history of hypertension, CAD, diabetes mellitus admitted by General surgery and is status post perirectal abscess repair. Surgery was unremarkable. While in the PACU a rapid response was called due to hypotension. Systolic blood pressure was in the 40s and at one point the patient was not responsive. Apparently reported that he did not feel well. It took him several minutes however, he did come around and blood pressure improved to systolic 130s. He denied chest pain, shortness of breath. Review of Systems Review of Systems: Denies any recent fever chills or decrease in appetite respiratory denies any shortness of breath coverage production cardiovascular is adjustment of any PND or edema gastrointestinal denies any dysphagia abdominal pain nausea vomiting or diarrhea genitourinary denies any dysuria frequency or hematuria musculoskeletal denies any joint pain or swelling neuropsych denies any weakness or seizures all other systems reviewed are negative [facility] Medical History Benign essential hypertension Benign prostatic hyperplasia with urinary frequency Constipation Coronary artery disease Diabetes mellitus Diabetic polyneuropathy Major depressive disorder, recurrent Obesity (BMI 30-39.9) Obstructive sleep apnea Pure hypercholesterolemia Vitamin D deficiency Family History Father Lung cancer Mother Diabetes Hypertension Stomach cancer Surgical History History of prostate surgery History of quadruple bypass Hx of cholecystectomy Hx of cystoscopy Social History Alcohol intake: former Smoking Status: Never smoker Use of substances other than those prescribed or required for medical reasons: No Advance Directives: Yes Advance Directives Information Provided: Yes Advance Directives on File: No Advance Directives Date on File: 05/09/20 Meds Allergies Allergy/AdvReac Type Severity Reaction Status Date / Time hydromorphone [Dilaudid] AdvReac Unknown confusion Verified 05/09/20 14:31 From DILAUDID AdvReac Severe CONFUSION/H Uncoded 03/06/20 08:56 ALLUCIATION S From PERCOCET AdvReac Intermediate AGITATION Uncoded 03/06/20 08:56 Active Medications: Current Medications Generic Name Dose Route Start Last Admin Trade Name Freq PRN Reason Stop Dose Admin Acetaminophen 650 mg 05/09/20 14:31 Acetaminophen 325 Mg Tablet PO ONCE PRN Pain, Mild (Pain Scale 1-3) Albuterol Sulfate 2 puff 05/09/20 16:07 Albuterol Sulfate 90 Mcg 8 Gm Inhaler INHALE Q4H PRN for wheezing Aspirin 81 mg 05/10/20 09:00 Aspirin Enteric Coated 81 Mg Tablet.Dr PO DAILY [facility] Atorvastatin Calcium 80 mg 05/10/20 09:00 Atorvastatin Calcium 80 Mg Tablet PO DAILY [facility] Fentanyl 50 mcg 05/09/20 14:31 Fentanyl Citrate/Pf 100 Mcg/2 Ml Vial IVPUSH Q5M PRN Pain, Severe (Pain Scale 7-10) Fluticasone Propionate 1 puff 05/09/20 20:00 Fluticasone Propionate 250 Mcg Blst.W.Dev INHALE RBID [facility] Fluticasone Propionate 1 spray 05/10/20 09:00 Fluticasone Propionate Nasal 16 Gm [place] NOSTRIL-B DAILY [facility] Furosemide 20 mg 05/09/20 16:07 Furosemide 20 Mg Tablet PO DAILY PRN swelling Protocol Gabapentin 800 mg 05/09/20 21:00 Gabapentin 400 Mg Capsule PO BID [facility] Sodium Chloride 1,000 mls @ 60 mls/hr 05/09/20 14:15 Ns IVCONT .[id number] [facility] Lactated Ringer's 1,000 mls @ 20 mls/hr 05/09/20 15:00 Lr IVCONT .Q24H [facility] Insulin Glargine 10 unit 05/10/20 09:00 Insulin Glargine,Hum.Rec.Anlog 100 Unit/Ml 10 Ml Vial SUBCUT DAILY [facility] Ketorolac Tromethamine 30 mg 05/09/20 14:31 Ketorolac Tromethamine 30 Mg/Ml Vial IVPUSH ONCE PRN Pain, Moderate (Pain Scale 4-6 Lisinopril 10 mg 05/10/20 09:00 Lisinopril 10 Mg Tablet PO DAILY [facility] Protocol Metoprolol Tartrate 50 mg 05/09/20 21:00 Metoprolol Tartrate 50 Mg Tablet PO BID [facility] Protocol Morphine Sulfate 2 mg 05/09/20 15:12 Morphine Sulfate 2 Mg/Ml Cartridge IVPUSH Q3H PRN Pain, Severe (Pain Scale 7-10) Ondansetron HCl 4 mg 05/09/20 14:31 Ondansetron Hcl 4 Mg/2 Ml Vial IVPUSH ONCE PRN Nausea and Vomiting Oxycodone HCl 5 mg 05/09/20 15:12 Oxycodone Hcl Immed Release 5 Mg Tablet PO Q4H PRN Pain, Moderate (Pain Scale 4-6 Paroxetine HCl 40 mg 05/10/20 09:00 Paroxetine Hcl 40 Mg Tablet PO DAILY [facility] Pharmacy Consult 1 each 05/09/20 13:44 Consult Rx Perform Med Rec MISCELLANE ONCE PRN Consult order Sodium Chloride 3 ml 05/09/20 16:00 0.9 % Sodium Chloride Flush 3 Ml Syringe IVFLUSH [facility] Tamsulosin HCl 0.4 mg 05/10/20 09:00 Tamsulosin Hcl 0.4 Mg Capsule PO DAILY [facility] Home Medications Medication Instructions Recorded Confirmed Last Taken Type atorvastatin 80 mg tablet 80 mg PO DAILY 03/06/20 05/09/20 Unknown History gabapentin 400 mg capsule 800 mg PO BID 03/06/20 05/09/20 Unknown History lisinopril 10 mg tablet 10 mg PO DAILY 03/06/20 05/09/20 Unknown History tramadol 50 mg tablet 50 mg PO Q6H PRN 03/06/20 05/09/20 Unknown History ferrous sulfate [FeroSul] 325 mg PO DAILY 05/09/20 05/09/20 Unknown History furosemide 20 mg PO DAILY PRN 05/09/20 05/09/20 Unknown History insulin glargine 0 unit SUBCUT DAILY 05/09/20 05/09/20 Unknown History paroxetine HCl 40 mg PO DAILY 05/09/20 05/09/20 Unknown History tamsulosin 0.4 mg PO DAILY 05/09/20 05/09/20 Unknown History Physical Exam Vital Signs and Narrative: Vital Signs: Last Vital Signs Temp 98.9 F 05/09/20 16:30 Pulse 90 05/09/20 17:35 Resp 22 H 05/09/20 17:35 BP 118/58 L 05/09/20 17:35 Pulse Ox 94 05/09/20 17:35 Body Mass Index 43.7 Appearing in no acute distress head is normocephalic atraumatic eyes pupils are PERRLA sclera is anicteric mouth throat mucous membranes are intact and moist neck is supple no lymphadenopathy, no JVD noted lung sounds are clear to auscultation heart regular rate rhythm, clear S1, S2 positive bowel sounds, abdomen is soft, nontender neuro patient is alert x3, no focal deficits Results Labs CBC and Chem 7: 05/09/20 12:05/09/20 12:01 Labs: Laboratory Results - last 24 hr 05/09/20 05/09/20 05/09/20 12:01 12: 12:01 MCV 91.3 MCH 30.5 MCHC 33.4 RDW 11.9 Plt Count 188 MPV 12.5 H Immature Gran % (Auto) 0.4 Neut % (Auto) 81.1 H Lymph % (Auto) 10.6 L [place] % (Auto) 7.0 Eos % (Auto) 0.8 Baso % (Auto) 0.1 Lymph # (Auto) 1.7 [place] # (Auto) 1.1 Eos # (Auto) 0.1 Baso # (Auto) 0.0 Abs Immat Gran (auto) 0.07 H Absolute Neuts (auto) 12.9 H Absolute Nucleated RBC 0.000 Nucleated RBC % (auto) 0.0 Hold Blue Top SEE NOTE Anion Gap 17 Estim Creat Clear Calc 52.8 Estimated GFR 44 POC Glucose Random Glucose 292 H Lactic Acid Calcium 8.2 L D COVID-19 ([facility]) COVID-19 Clin Com 05/09/20 05/09/20 05/09/20 12:54 13:20 15:56 MCV MCH MCHC RDW Plt Count MPV Immature Gran % (Auto) Neut % (Auto) Lymph % (Auto) [place] % (Auto) Eos % (Auto) Baso % (Auto) Lymph # (Auto) [place] # (Auto) Eos # (Auto) Baso # (Auto) Abs Immat Gran (auto) Absolute Neuts (auto) Absolute Nucleated RBC Nucleated RBC % (auto) Hold Blue Top Anion Gap Estim Creat Clear Calc Estimated GFR POC Glucose 187 H Random Glucose Lactic Acid 1.4 Calcium COVID-19 ([facility]) Negative COVID-19 Clin Com See Note 05/09/20 16:47 MCV MCH MCHC RDW Plt Count MPV Immature Gran % (Auto) Neut % (Auto) Lymph % (Auto) [place] % (Auto) Eos % (Auto) Baso % (Auto) Lymph # (Auto) [place] # (Auto) Eos # (Auto) Baso # (Auto) Abs Immat Gran (auto) Absolute Neuts (auto) Absolute Nucleated RBC Nucleated RBC % (auto) Hold Blue Top Anion Gap Estim Creat Clear Calc Estimated GFR POC Glucose Random Glucose Lactic Acid 1.9 Calcium COVID-19 ([facility]) COVID-19 Clin Com Imaging Radiologist's Impressions: Impressions Pelvis CT 05/09/20 12:45 IMPRESSION: Right perirectal soft tissue induration extending from the posterior anorectal wall. There is punctate air collection within this induration. Not a whole lot of abscess visualized for drainage. Assessment and Plan (1) Abscess, perirectal: Status: Acute 64-year-old [place]ic-speaking man admitted by General surgery due to perirectal abscess. Patient was taken OR today for abscess I&D. Surgery was unremarkable however postoperatively patient hypotension and 1 point unr esponsive. Rapid response was called. Systolic pressure was found to be 40s. After several minutes patient did come around blood pressure did improve and patient was alert and awake even joking. Seems like likely vasovagal episode as patient was sitting during the event and suddenly became unresponsive. Due to this consultation was placed. [place] rectal abscess. Management per surgical team. Pain management. Vasovagal syncope. Likely due postoperative course, hypotension, anesthesia. This has since resolved and blood pressures are within acceptable limits at this time. Follow blood pressures closely and neuro status. Hyponatremia. Mild. Likely related to dehydration. Gentle IV fluid hydration. SLY. Likely related to dehydration. Gentle IV fluid hydration. Follow BMP closely. Coronary artery disease. Continue beta-meenakshi, aspirin and statin. Diabetes mellitus. Sliding scale, ADA diet, Lantus. BPH. Continue tamsulosin. DVT prophylaxis with mechanical compression boots Case discussed with Dr. Johnson Full code
[2020-05-09] MEDS: 0.9 % Sodium Chloride 1,000 ML 60 ML IVCONT (20:08)
[2020-05-09] MEDS: Gabapentin 400 MG CAPSULE 800 MG PO (20:10)
[2020-05-09] MEDS: Metoprolol Tartrate 50 MG TABLET PO (20:11)
[2020-05-09] MEDS: Fluticasone Propionate 250 MCG BLST.W.DEV 1 PUFF INHALE (20:17)
[2020-05-09 20:35] LABS: Glucose, Whole Blood 182 mg/dL (60-115)
[2020-05-09] MEDS: Insulin Lispro 100 UNIT/ML 3 ML VIAL SUBCUT (20:54)
[2020-05-10] VITALS (12 sets, daily range): BP systolic 108–143; BP diastolic 53–70; PULSE 57–84; RESP 16–20; TEMP 36–38; O2SAT 93–98; BMI 43.7
[2020-05-10] MEDS: 0.9 % Sodium Chloride Flush 3 ML SYRINGE IVFLUSH ×5 (00:21→16:47)
[2020-05-10] MEDS: Piperacillin Sodium/Tazobactam 3.375 GM in 0.9 % Sodium Chloride 50 ML IV ×4 (02:56→20:51)
[2020-05-10] MEDS: Acetaminophen 325 MG TABLET 650 MG PO (04:08)
[2020-05-10] MEDS: 0.9 % Sodium Chloride 1,000 ML 60 ML IVCONT (04:12)
[2020-05-10 06:09] LABS: Hemoglobin 11.1 g/dl (14.0-18.0)
[2020-05-10 06:11] LABS: Hematocrit 33.1 % (42-52); Mean Corpuscular HGB Conc 33.5 g/dl (31.0-36.0); Mean Corpuscular Hemoglobin 30.6 pg (27.0-33.0); Mean Corpuscular Volume 91.2 fL (80-98); Mean Platelet Volume 12.6 fL (9.4-12.4); PLT CLUMP 1; Red Blood Count 3.63 X10*6/uL (4.60-5.80)
[2020-05-10 06:31] LABS: Anion Gap 12 (12-20); Blood Urea Nitrogen 26 mg/dL (9-16); Calcium 7.7 mg/dL (8.4-10.2); Carbon Dioxide 27 mmol/L (22-29); Chloride 100 mmol/L (96-108); Creatinine Clr Calc Pharmacy 58.7; Estimated Glomerular Filt Rate 49; Glucose Random 198 mg/dL (60-115); Potassium 3.9 mmol/L (3.3-5.1); Sodium 135 mmol/L (135-145)
[2020-05-10 06:44] LABS: PLT ABN DIST 1
[2020-05-10 06:57] LABS: Platelet Count 165 X10*3/uL (160-400); White Blood Count 17.1 X10*3/uL (4.8-10.8)
[2020-05-10] MEDS: Fluticasone Propionate 250 MCG BLST.W.DEV 1 PUFF INHALE ×2 (07:40→19:57)
[2020-05-10 07:52] LABS: Glucose, Whole Blood 169 mg/dL (60-115)
[2020-05-10] MEDS: Insulin Lispro 100 UNIT/ML 3 ML VIAL SUBCUT ×2 (07:57→11:44)
--- NOTE | 2020-05-10 07:58 | P.PNGS_ITS ---
Subjective Subjective Date of Service: 05/10/20 <Cora Moreira PA-C - Last Filed: 05/10/20 08:02> 05/10/20 <Tae Crowley MD - Last Filed: 05/10/20 08:38> Patient reports: no new complaints <Cora Moreira PA-C - Last Filed: 05/10/20 08:02> Interval history: Feels much better this morning. Denies any pain. <DILLON Marquez - Last Filed: 05/10/20 08:02> Physical Exam Vital Signs: Vital Signs: Last Vital Signs Temp 98.5 F 05/10/20 07:35 Pulse 84 05/10/20 07:41 Resp 19 05/10/20 07:35 BP 134/62 05/10/20 07:35 Pulse Ox 93 05/10/20 07:35 Body Mass Index 43.7 <Cora Moreira PA-C - Last Filed: 05/10/20 08:02> Const: General: comfortable, no acute distress and alert <Cora Moreira PA-C - Last Filed: 05/10/20 08:02> Orientation/consciousness: patient oriented x3 <Cora Moreira PA-C - Last Filed: 05/10/20 08:02> Eyes: Sclerae: sclerae normal <Cora Moreira PA-C - Last Filed: 05/10/20 08:02> Resp: Effort & Inspection: normal respiratory effort <Cora Moreira PA-C - Last Filed: 05/10/20 08:02> Back/Spine/Pelvis: Other: right perirectal abscess site- packing removed, I&D site open, moderate amount of induration, edema and erythema persist, no drainage noted <Cora Moreira PA-C - Last Filed: 05/10/20 08:02> Skin: Other: normal color, warm and dry <Cora Moreira PA-C - Last Filed: 05/10/20 08:02> Neuro: General: patient oriented x3 <ANGELES Marquez Last Filed: 05/10/20 08:02> Extrem: General: Yes no clubbing, cyanosis or edema <Cora Moreira PA-C - Last Filed: 05/10/20 08:02> Progress Note: A&P Assessment and plan (1) Abscess, perirectal: Status: Acute <Cora Moreira PA-C - Last Filed: 05/10/20 08:02> Assessment and Plan: Feels much better No events overnight No fever Looks well Some residual induration on abscess site Packing removed CBC shows leukocytosis still Re-evaluate tomorrow Continue IV antibiotics Seen and examined -agree with SLOAN Moreira <Tae Crowley MD - Last Filed: 05/10/20 08:38> (2) Status post incision and drainage: Problem details: POD #1 <Cora Moreira PA-C - Last Filed: 05/10/20 08:02> Status: Acute <Cora Moreira PA-C - Last Filed: 05/10/20 08:02> Assessment and Plan: Feels much better this morning. VSS. I&D site- moderate erythema/induration/edema persist. Packing removed, abscess site remains open. Redressed with fluffs and tape. Cont IV abx for another day. Repeat CBC tomorrow. <Cora Moreira PA-C - Last Filed: 05/10/20 08:02> (3) Diabetes mellitus: Status: Acute <Cora Moreira PA-C - Last Filed: 05/10/20 08:02> Fall Risk Details Current Medications: Current Medications Generic Name Dose Route Start Last Admin Trade Name Freq PRN Reason Stop Dose Admin Albuterol Sulfate 2 puff 05/09/20 16:07 Albuterol Sulfate 90 Mcg 8 Gm Inhaler INHALE Q4H PRN for wheezing Aspirin 81 mg 05/10/20 09:00 Aspirin Enteric Coated 81 Mg Tablet. PO DAILY [facility] Atorvastatin Calcium 80 mg 05/10/20 09:00 Atorvastatin Calcium 80 Mg Tablet PO DAILY [facility] Fentanyl 50 mcg 05/09/20 14:31 Fentanyl Citrate/Pf 100 Mcg/2 Ml Vial IVPUSH Q5M PRN Pain, Severe (Pain Scale 7-10) Fluticasone Propionate 1 puff 05/09/20 20:00 05/10/20 07:40 Fluticasone Propionate 250 Mcg Blst.W.Dev INHALE 1 puff RBID [facility] Administration Fluticasone Propionate 1 spray 05/10/20 09:00 Fluticasone Propionate Nasal 16 Gm [place] NOSTRIL-B DAILY [facility] Furosemide 20 mg 05/09/20 16:07 Furosemide 20 Mg Tablet PO DAILY PRN swelling Protocol Gabapentin 800 mg 05/09/20 21:00 05/09/20 20:10 Gabapentin 400 Mg Capsule PO 800 mg BID [facility] Administration Sodium Chloride 1,000 mls @ 60 mls/hr 05/09/20 14:15 05/10/20 04:12 Ns IVCONT 60 mls/hr .[id number] [facility] Administration Piperacillin Sod/Tazobactam 50 mls @ 100 mls/hr 05/10/20 09:00 Sod 3.375 gm/ Sodium Chloride IV Q6H [facility] Insulin Glargine 10 unit 05/10/20 09:00 Insulin Glargine,Hum.Rec.Anlog 100 Unit/Ml 10 Ml Vial SUBCUT DAILY [facility] Insulin Human Lispro 0 unit 05/09/20 21:00 05/09/20 20:54 Insulin Lispro 100 Unit/Ml 3 Ml Vial SUBCUT 2 unit QIDACHS [facility] Administration Protocol Ketorolac Tromethamine 30 mg 05/09/20 14:31 Ketorolac Tromethamine 30 Mg/Ml Vial IVPUSH ONCE PRN Pain, Moderate (Pain Scale 4-6 Lisinopril 10 mg 05/10/20 09:00 Lisinopril 10 Mg Tablet PO DAILY [facility] Protocol Metoprolol Tartrate 50 mg 05/09/20 21:00 05/09/20 20:11 Metoprolol Tartrate 50 Mg Tablet PO 50 mg BID [facility] Administration Protocol Morphine Sulfate 2 mg 05/09/20 15:12 Morphine Sulfate 2 Mg/Ml Cartridge IVPUSH Q3H PRN Pain, Severe (Pain Scale 7-10) Ondansetron HCl 4 mg 05/09/20 14:31 Ondansetron Hcl 4 Mg/2 Ml Vial IVPUSH ONCE PRN Nausea and Vomiting Oxycodone HCl 5 mg 05/09/20 15:12 Oxycodone Hcl Immed Release 5 Mg Tablet PO Q4H PRN Pain, Moderate (Pain Scale 4-6 Paroxetine HCl 40 mg 05/10/20 09:00 Paroxetine Hcl 40 Mg Tablet PO DAILY [facility] Pharmacy Consult 1 each 05/09/20 13:44 Consult Rx Perform Med Rec MISCELLANE ONCE PRN Consult order Sodium Chloride 3 ml 05/09/20 16:00 05/10/20 00:21 0.9 % Sodium Chloride Flush 3 Ml Syringe IVFLUSH 3 ml QSHIFT [facility] Administration Sodium Chloride 3 ml 05/10/20 00:00 05/10/20 00:21 0.9 % Sodium Chloride Flush 3 Ml Syringe IVFLUSH 3 ml QSHIFT [facility] Administration Tamsulosin HCl 0.4 mg 05/10/20 09:00 Tamsulosin Hcl 0.4 Mg Capsule PO DAILY [facility] <Cora Moreira PA-C - Last Filed: 05/10/20 08:02> Time Spent With Patient Time: Total time spent is greater than 50% in coordination of care (as documented) at patient's floor/unit and/or counseling patient: <Cora Moreira PA-C - Last Filed: 05/10/20 08:02> Time with patient: 15 - 24 minutes <Cora Moreira PA-C - Last Filed: 05/10/20 08:02> Procedures Date of Service Date of Service: 05/10/20 <ANGELES Marquez Last Filed: 05/10/20 08:02>
[2020-05-10] MEDS: Aspirin Enteric Coated 81 MG TABLET.DR PO (08:19)
[2020-05-10] MEDS: Gabapentin 400 MG CAPSULE 800 MG PO ×2 (08:19→20:49)
[2020-05-10] MEDS: Insulin Glargine,Hum.rec.anlog 100 UNIT/ML 10 ML VIAL 10 UNIT SUBCUT (08:19)
[2020-05-10] MEDS: PARoxetine HCL 40 MG TABLET PO (08:19)
[2020-05-10] MEDS: Metoprolol Tartrate 50 MG TABLET PO ×2 (08:20→20:50)
[2020-05-10] MEDS: Atorvastatin Calcium 80 MG TABLET PO (08:20)
[2020-05-10] MEDS: Fluticasone Propionate Nasal 16 GM SPRAY 1 SPRAY NOSTRIL-B (08:20)
[2020-05-10] MEDS: Tamsulosin HCL 0.4 MG CAPSULE PO (08:20)
--- NOTE | 2020-05-10 09:22 | P.POSTANES_ITS ---
Post Anesthesia Evaluation Post Anesthesia Evaluation Vital Signs: Vital Signs Temp Pulse Resp BP Pulse Ox 05/10/20 08:20 68 134/62 05/10/20 08:19 68 134/62 05/10/20 08:00 98.5 F 68 19 134/62 93 05/10/20 07:41 84 05/10/20 07:35 98.5 F 68 19 134/62 93 05/10/20 04:00 97.7 F 74 18 143/59 H 96 05/09/20 23:39 99.2 F 71 18 120/50 L 98 Anesthesia: General Mental Status: Awake Pain Control: Satisfactory Nausea/Vomiting: None Anesthesia-Related Issues: No Anes. Related Issues Comments: Patient had vasovagal episode in PACU awaiting transfer to the [facility]. IV placed and fluid bolus given and patient responded and has been doing well since
[2020-05-10 11:26] LABS: Glucose, Whole Blood 214 mg/dL (60-115)
--- NOTE | 2020-05-10 11:59 | HO.PM.IMPN ---
Subjective Subjective Date of Service: 05/10/20 Interval History: seen in f/u for med consult for medical managment, had an episode of hypotension in PACU yesterday likely from a vagal episode but has since been ok. No issues overngith and feels fine and look forward to going home Review of Systems Gen: no fever Resp: no sob, no cough CV: no chest, no CASTANO, no leg edema GI: No n/v, no abd pain Neuro: No confusion Physical Exam Vital Signs: Vital Signs: Last Vital Signs Temp 99.8 F 05/10/20 11:19 Pulse 76 05/10/20 11:19 Resp 20 05/10/20 11:19 BP 122/58 L 05/10/20 11:19 Pulse Ox 96 05/10/20 11:19 Body Mass Index 43.7 General: AO X 3, no acute distress Resp: CTA bilateral CVS: S1,S2,RRR GI: +BS, NT, no distention Skin: perirectal abscess s/p ID, dressing in place Neuro: motor grossly intact Psych: appropriate affect Objective Data Current Medications Generic Name Dose Route Start Last Admin Trade Name Freq PRN Reason Stop Dose Admin Albuterol Sulfate 2 puff 05/09/20 16:07 Albuterol Sulfate 90 Mcg 8 Gm Inhaler INHALE Q4H PRN for wheezing Aspirin 81 mg 05/10/20 09:00 05/10/20 08:19 Aspirin Enteric Coated 81 Mg Tablet. PO 81 mg DAILY [facility] Administration Atorvastatin Calcium 80 mg 05/10/20 09:00 05/10/20 08:20 Atorvastatin Calcium 80 Mg Tablet PO 80 mg DAILY [facility] Administration Fentanyl 50 mcg 05/09/20 14:31 Fentanyl Citrate/Pf 100 Mcg/2 Ml Vial IVPUSH Q5M PRN Pain, Severe (Pain Scale 7-10) Fluticasone Propionate 1 puff 05/09/20 20:00 05/10/20 07:40 Fluticasone Propionate 250 Mcg Blst.W.Dev INHALE 1 puff RBID [facility] Administration Fluticasone Propionate 1 spray 05/10/20 09:00 05/10/20 08:20 Fluticasone Propionate Nasal 16 Gm [place] NOSTRIL-B 1 spray DAILY [facility] Administration Furosemide 20 mg 05/09/20 16:07 Furosemide 20 Mg Tablet PO DAILY PRN swelling Protocol Gabapentin 800 mg 05/09/20 21:00 05/10/20 08:19 Gabapentin 400 Mg Capsule PO 800 mg BID [facility] Administration Piperacillin Sod/Tazobactam 50 mls @ 100 mls/hr 05/10/20 09:00 05/10/20 08:59 Sod 3.375 gm/ Sodium Chloride IV Infused Q6H [facility] Infusion Insulin Glargine 10 unit 05/10/20 09:00 05/10/20 08:19 Insulin Glargine,Hum.Rec.Anlog 100 Unit/Ml 10 Ml Vial SUBCUT 10 unit DAILY [facility] Administration Insulin Human Lispro 0 unit 05/09/20 21:00 05/10/20 11:44 Insulin Lispro 100 Unit/Ml 3 Ml Vial SUBCUT 4 unit QIDACHS [facility] Administration Protocol Ketorolac Tromethamine 30 mg 05/09/20 14:31 Ketorolac Tromethamine 30 Mg/Ml Vial IVPUSH ONCE PRN Pain, Moderate (Pain Scale 4-6 Lisinopril 10 mg 05/10/20 09:00 05/10/20 08:19 Lisinopril 10 Mg Tablet PO 10 mg DAILY [facility] Administration Protocol Metoprolol Tartrate 50 mg 05/09/20 21:00 05/10/20 08:20 Metoprolol Tartrate 50 Mg Tablet PO 50 mg BID [facility] Administration Protocol Morphine Sulfate 2 mg 05/09/20 15:12 Morphine Sulfate 2 Mg/Ml Cartridge IVPUSH Q3H PRN Pain, Severe (Pain Scale 7-10) Ondansetron HCl 4 mg 05/09/20 14:31 Ondansetron Hcl 4 Mg/2 Ml Vial IVPUSH ONCE PRN Nausea and Vomiting Oxycodone HCl 5 mg 05/09/20 15:12 Oxycodone Hcl Immed Release 5 Mg Tablet PO Q4H PRN Pain, Moderate (Pain Scale 4-6 Paroxetine HCl 40 mg 05/10/20 09:00 05/10/20 08:19 Paroxetine Hcl 40 Mg Tablet PO 40 mg DAILY [facility] Administration Pharmacy Consult 1 each 05/09/20 13:44 Consult Rx Perform Med Rec MISCELLANE ONCE PRN Consult order Sodium Chloride 3 ml 05/09/20 16:00 05/10/20 08:18 0.9 % Sodium Chloride Flush 3 Ml Syringe IVFLUSH Not Given QSHIFT [facility] Sodium Chloride 3 ml 05/10/20 00:00 05/10/20 08:20 0.9 % Sodium Chloride Flush 3 Ml Syringe IVFLUSH 3 ml QSHIFT [facility] Administration Tamsulosin HCl 0.4 mg 05/10/20 09:00 05/10/20 08:20 Tamsulosin Hcl 0.4 Mg Capsule PO 0.4 mg DAILY [facility] Administration Labs CBC & Chem 7: 05/10/20 05:22 05/10/20 05:22 Microbiology Microbiology Results: Microbiology 05/09/20 Unknown Abscess Rectal Gram Stain - Final 05/09/20 Unknown Abscess Rectal Routine Culture - Preliminary Culture in progress. Assessment and Plan (1) Abscess, perirectal: Status: Acute Assessment and Plan: 64-year-old Portuguese-speaking man admitted by General surgery due to perirectal abscess. Patient was taken OR today for abscess I&D. Surgery was unremarkable however postoperatively patient hypotension and 1 point unresponsive. Rapid response was called. Systolic pressure was found to be 40s. After several minutes patient did come around blood pressure did improve and patient was alert and awake even joking. Seems like likely vasovagal episode as patient was sitting during the event and suddenly became unresponsive. Due to this consultation was placed. Zulay rectal abscess. Management per surgical team. Pain management. Vasovagal syncope. Likely due postoperative course, hypotension, anesthesia. This has since resolved and blood pressures are within acceptable limits at this time. Follow blood pressures closely and neuro status. Hyponatremia. Mild. Likely related to dehydration. Resolved SLY. Likely related to dehydration. Getting better, follow Creat Coronary artery disease. Continue beta-meenakshi, aspirin and statin. Diabetes mellitus. Sliding scale, ADA diet, Lantus. BPH. Continue tamsulosin. DVT prophylaxis with mechanical compression boots
--- NOTE | 2020-05-10 14:21 | MHC.CM.PN ---
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 PCP DR RAYMON APONTE TRANSPORTATION TO BE FURTHER EXPLAINED AND WILL TRY TO FIND OUT IF HE HAS A HEALTH CARE PROXY MEDICARE IMM EXPLAINED AND LEFT WITH PATIENT
[2020-05-10 16:29] LABS: Glucose, Whole Blood 150 mg/dL (60-115)
[2020-05-10 19:26] LABS: Glucose, Whole Blood 140 mg/dL (60-115)
[2020-05-10] MEDS: Ketorolac Tromethamine 30 MG/ML VIAL IVPUSH (20:50)
[2020-05-10] MEDS: traZODone HCL 25 MG HALFTAB PO (20:50)
[2020-05-11] MEDS: 0.9 % Sodium Chloride Flush 3 ML SYRINGE IVFLUSH ×3 (00:05→08:22)
[2020-05-11] MEDS: Piperacillin Sodium/Tazobactam 3.375 GM in 0.9 % Sodium Chloride 50 ML IV ×2 (03:31→08:23)
[2020-05-11 04:00] VITALS: BP 120/60; PULSE 60; RESP 18; TEMP 36.4; O2SAT 99
[2020-05-11 04:56] LABS: MANUAL DIFF FLAG NO
[2020-05-11 05:02] LABS: Basophils Percent Auto 0.1 % (0-2); Eosinophils Absolute Auto 0.1 X10*3/uL (0.0-0.4); Eosinophils Percent Auto 1.4 % (0-4); Hematocrit 34.1 % (42-52); Imm Gran Abs Auto 0.03 X10*3/uL (0.00-0.03); Imm Gran Pct Auto 0.4 % (0.0-0.4); Lymphocytes Absolute Auto 1.1 X10*3/uL (1.2-4.9); Lymphocytes Percent Auto 15.1 % (20-40); Mean Corpuscular HGB Conc 32.3 g/dl (31.0-36.0); Mean Corpuscular Hemoglobin 30.1 pg (27.0-33.0); Mean Corpuscular Volume 93.2 fL (80-98); Mean Platelet Volume 12.1 fL (9.4-12.4); Monocytes Absolute Auto 0.8 X10*3/uL (0.1-1.2); Monocytes Percent Auto 11.4 % (2-11); Neutrophils Absolute Auto 5.2 X10*3/uL (2.0-8.3); Neutrophils Percent Auto 71.6 % (45-73); Platelet Count 153 X10*3/uL (160-400); Red Blood Count 3.66 X10*6/uL (4.60-5.80); Red Cell Distribution Width 12.2 % (11.0-16.0); White Blood Count 7.3 X10*3/uL (4.8-10.8)
[2020-05-11 07:20] VITALS: BP 178/70; PULSE 69; RESP 21; TEMP 37.1; O2SAT 100
[2020-05-11 07:36] LABS: Glucose, Whole Blood 114 mg/dL (60-115)
--- NOTE | 2020-05-11 08:13 | PM.PNGS ---
Subjective Subjective Date of Service: 05/12/20 Interval history: Says he continues to feel much better Pain much improved on the perirectal area No events overnight Physical Exam Vital Signs: Vital Signs: Last Vital Signs Temp 98.7 F 05/11/20 07:20 Pulse 69 05/11/20 07:20 Resp 21 H 05/11/20 07:20 BP 178/70 H 05/11/20 07:20 Pulse Ox 100 05/11/20 07:20 Body Mass Index 43.7 Sodium 135 mmol/L (135-1 45) 05/10/20 05:22 BUN 26 mg/dL (9-16) H 05/10/20 05:22 Creatinine 1.43 mg/dL (0.5-1 .4) H 05/10/20 05:22 Laboratory Results - last 24 hr 05/10/20 05/10/20 05/10/20 11:17 16:20 19:14 WBC RBC Hgb Hct MCV MCH MCHC RDW Plt Count MPV Immature Gran % (A uto) Neut % (Auto) Lymph % (Auto) Hitchcock % (Auto) Eos % (Auto) Baso % (Auto) Lymph # (Auto) Hitchcock # (Auto) Eos # (Auto) Baso # (Auto) Abs Immat Gran (au to) Absolute Neuts (au to) Absolute Nucleated RBC Nucleated RBC % (a uto) POC Glucose 214 H 150 H 140 H 05/11/20 05/11/20 04:47 07:22 WBC 7.3 RBC 3.66 L Hgb 11.0 L Hct 34.1 L MCV 93.2 MCH 30.1 MCHC 32.3 RDW 12.2 Plt Count 153 L MPV 12.1 Immature Gran % (A uto) 0.4 Neut % (Auto) 71.6 Lymph % (Auto) 15.1 L Hitchcock % (Auto) 11.4 H Eos % (Auto) 1.4 Baso % (Auto) 0.1 Lymph # (Auto) 1.1 L [place]cock # (Auto) 0.8 Eos # (Auto) 0.1 Baso # (Auto) 0.0 Abs Immat Gran (au to) 0.03 Absolute Neuts (au to) 5.2 Absolute Nucleated RBC 0.000 Nucleated RBC % (a uto) 0.0 POC Glucose 114 Const: General: comfortable and no acute distress Orientation/consciousness: patient oriented x3 Resp: Effort & Inspection: normal respiratory effort Cardio: Rhythm: regular rhythm GI: Other: I&D site on right perirectal area -much less indurated, no significant pus, no cellulitis, no significant tenderness Palpation (GI): Soft to palpation and nontender Neuro: General: patient oriented x3 Progress Note: A&P Assessment and plan (1) Abscess, perirectal: Status: Acute Assessment and Plan: Status post I and D of perirectal abscess I&D site much improved No residual tenderness He feels much better WBC back to normal Sodium now normal, creatinine trending down Appears ready to be discharged home 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 basis Instructed to see his primary care physician as well Blood sugar control emphasized Case discussed with watch case polisher Fall Risk Details Current Medications: Current Medications Generic Name Dose Route Start Last Admin Trade Name Freq PRN Reason Stop Dose Admin Albuterol Sulfate 2 puff 05/09/20 16:07 Albuterol Sulfate 90 Mcg 8 Gm Inhaler INHALE Q4H PRN for wheezing Aspirin 81 mg 05/10/20 09:00 05/10/20 08:19 Aspirin Enteric Coated 81 Mg Tablet. PO 81 mg DAILY [facility] Administration Atorvastatin Calcium 80 mg 05/10/20 09:00 05/10/20 08:20 Atorvastatin Calcium 80 Mg Tablet PO 80 mg DAILY [facility] Administration Fentanyl 50 mcg 05/09/20 14:31 Fentanyl Citrate/Pf 100 Mcg/2 Ml Vial IVPUSH Q5M PRN Pain, Severe (Pain Scale 7-10) Fluticasone Propionate 1 puff 05/09/20 20:00 05/10/20 19:57 Fluticasone Propionate 250 Mcg Blst.W.Dev INHALE 1 puff RBID [facility] Administration Fluticasone Propionate 1 spray 05/10/20 09:00 05/10/20 08:20 Fluticasone Propionate Nasal 16 Gm [place] NOSTRIL-B 1 spray DAILY [facility] Administration Furosemide 20 mg 05/09/20 16:07 Furosemide 20 Mg Tablet PO DAILY PRN swelling Protocol Gabapentin 800 mg 05/09/20 21:00 05/10/20 20:49 Gabapentin 400 Mg Capsule PO 800 mg BID [facility] Administration Piperacillin Sod/Tazobactam 50 mls @ 100 mls/hr 05/10/20 09:00 05/11/20 04:06 Sod 3.375 gm/ Sodium Chloride IV Infused Q6H [facility] Infusion Insulin Glargine 10 unit 05/10/20 09:00 05/10/20 08:19 Insulin Glargine,Hum.Rec.Anlog 100 Unit/Ml 10 Ml Vial SUBCUT 10 unit DAILY [facility] Administration Insulin Human Lispro 0 unit 05/09/20 21:00 05/10/20 21:05 Insulin Lispro 100 Unit/Ml 3 Ml Vial SUBCUT Not Given QIDACHS [facility] Protocol Lisinopril 10 mg 05/10/20 09:00 05/10/20 08:19 Lisinopril 10 Mg Tablet PO 10 mg DAILY [facility] Administration Protocol Metoprolol Tartrate 50 mg 05/09/20 21:00 05/10/20 20:50 Metoprolol Tartrate 50 Mg Tablet PO 50 mg BID [facility] Administration Protocol Morphine Sulfate 2 mg 05/09/20 15:12 Morphine Sulfate 2 Mg/Ml Cartridge IVPUSH Q3H PRN Pain, Severe (Pain Scale 7-10) Ondansetron HCl 4 mg 05/09/20 14:31 Ondansetron Hcl 4 Mg/2 Ml Vial IVPUSH ONCE PRN Nausea and Vomiting Oxycodone HCl 5 mg 05/09/20 15:12 Oxycodone Hcl Immed Release 5 Mg Tablet PO Q4H PRN Pain, Moderate (Pain Scale 4-6 Paroxetine HCl 40 mg 05/10/20 09:00 05/10/20 08:19 Paroxetine Hcl 40 Mg Tablet PO 40 mg DAILY [facility] Administration Pharmacy Consult 1 each 05/09/20 13:44 Consult Rx Perform Med Rec MISCELLANE ONCE PRN Consult order Sodium Chloride 3 ml 05/09/20 16:00 05/11/20 00:05 0.9 % Sodium Chloride Flush 3 Ml Syringe IVFLUSH 3 ml QSHIFT [facility] Administration Sodium Chloride 3 ml 05/10/20 00:00 05/11/20 00:05 0.9 % Sodium Chloride Flush 3 Ml Syringe IVFLUSH 3 ml QSHIFT [facility] Administration Tamsulosin HCl 0.4 mg 05/10/20 09:00 05/10/20 08:20 Tamsulosin Hcl 0.4 Mg Capsule PO 0.4 mg DAILY [facility] Administration Trazodone HCl 25 mg 05/10/20 19:50 05/10/20 20:50 Trazodone Hcl 25 Mg Halftab PO 25 mg BEDTIME PRN Administration Insomnia Time Spent With Patient Time: Total time spent is greater than 50% in coordination of care (as documented) at patient's floor/unit and/or counseling patient: Time with patient: 15 - 24 minutes Procedures Date of Service Date of Service: 05/11/20
[2020-05-11] MEDS: Gabapentin 400 MG CAPSULE 800 MG PO (08:19)
--- NOTE | 2020-05-11 08:19 | P.F2F_ITS ---
Service Date Service Date: 05/11/20 Reasons for Services Homebound: Leaving the home is medically contraindicated at this time without the asist of a device and/or another person due th the listed conditions above and below. 1. Perirectal abscess 2. Diabetes mellitus with polyneuropathy 3. Morbid obesity Certification: Based on the above findings, I certify that this patient is confined to the home and needs intermittent senior care care, physical therapy and/or speech therapy, or continues to need occupational therapy. The patient is under my care, and I have initiated the establishment of the plan of care. The patient will be followed by a physician who will periodically review the plan of care.
[2020-05-11] MEDS: Aspirin Enteric Coated 81 MG TABLET.DR PO (08:20)
[2020-05-11] MEDS: PARoxetine HCL 40 MG TABLET PO (08:20)
[2020-05-11] MEDS: Tamsulosin HCL 0.4 MG CAPSULE PO (08:20)
[2020-05-11] MEDS: Metoprolol Tartrate 50 MG TABLET PO (08:20)
[2020-05-11] MEDS: Insulin Glargine,Hum.rec.anlog 100 UNIT/ML 10 ML VIAL 10 UNIT SUBCUT (08:20)
[2020-05-11] MEDS: Atorvastatin Calcium 80 MG TABLET PO (08:20)
[2020-05-11] MEDS: Fluticasone Propionate Nasal 16 GM SPRAY 1 SPRAY NOSTRIL-B (08:23)
[2020-05-11 08:26] VITALS: PULSE 66; O2SAT 92
[2020-05-11] MEDS: Fluticasone Propionate 250 MCG BLST.W.DEV 1 PUFF INHALE (08:26)
--- NOTE | 2020-05-11 09:19 | MHC.CM.PN ---
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 through catrina, visiting nurse for wound assessment and dressing changes and teaching to patient and medtronics technician /family, [facility] , buy then today when notified that he would need dressing changes qd for a short time for teaching to patient /pvcas and family jeanine called back and reported that they now would have to decline as they have no availability for nursing daily through care [facility] and alls scripts re referred to the following emanuel contreras, [facility] ,[facility] mati campbell spoke with patient and also to his sonmark gomez (explaining the discharge plan t0 he will arrange to have family member pick him up and take him to the pharmacy him) discharge plan home with the [facility] for nursing 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
--- NOTE | 2020-05-11 10:24 | HO.PM.IMPN ---
Subjective Subjective Date of Service: 05/11/20 Interval History: seen in f/u for med consult for medical managment, had an episode of hypotension in PACU yesterday likely from a vagal episode but has since been ok. No new issues, wants to go home Review of Systems Gen: no fever Resp: no sob, no cough CV: no chest, no CASTANO, no leg edema GI: No n/v, no abd pain Neuro: No confusion Physical Exam Vital Signs: Vital Signs: Last Vital Signs Temp 98.7 F 05/11/20 07:20 Pulse 66 05/11/20 08:26 Resp 21 H 05/11/20 07:20 BP 178/70 H 05/11/20 07:20 Pulse Ox 100 05/11/20 07:20 Body Mass Index 43.7 General: AO X 3, no acute distress Resp: CTA bilateral CVS: S1,S2,RRR GI: +BS, NT, no distention Skin: buttock wond dressing in place and been changed by surgery Neuro: motor grossly intact Psych: appropriate affect Objective Data Current Medications Generic Name Dose Route Start Last Admin Trade Name Freq PRN Reason Stop Dose Admin Albuterol Sulfate 2 puff 05/09/20 16:07 Albuterol Sulfate 90 Mcg 8 Gm Inhaler INHALE Q4H PRN for wheezing Aspirin 81 mg 05/10/20 09:00 05/11/20 08:20 Aspirin Enteric Coated 81 Mg Tablet. PO 81 mg DAILY ABELARDO Administration Atorvastatin Calcium 80 mg 05/10/20 09:00 05/11/20 08:20 Atorvastatin Calcium 80 Mg Tablet PO 80 mg DAILY ABELARDO Administration Fentanyl 50 mcg 05/09/20 14:31 Fentanyl Citrate/Pf 100 Mcg/2 Ml Vial IVPUSH Q5M PRN Pain, Severe (Pain Scale 7-10) Fluticasone Propionate 1 puff 05/09/20 20:00 05/11/20 08:26 Fluticasone Propionate 250 Mcg Blst.W.Dev INHALE 1 puff RBID ABELARDO Administration Fluticasone Propionate 1 spray 05/10/20 09:00 05/11/20 08:23 Fluticasone Propionate Nasal 16 Gm [place] NOSTRIL-B 1 spray DAILY ABELARDO Administration Furosemide 20 mg 05/09/20 16:07 Furosemide 20 Mg Tablet PO DAILY PRN swelling Protocol Gabapentin 800 mg 05/09/20 21:00 05/11/20 08:19 Gabapentin 400 Mg Capsule PO 800 mg BID [facility] Administration Piperacillin Sod/Tazobactam 50 mls @ 100 mls/hr 05/10/20 09:00 05/11/20 09:00 Sod 3.375 gm/ Sodium Chloride IV Infused Q6H [facility] Infusion Insulin Glargine 10 unit 05/10/20 09:00 05/11/20 08:20 Insulin Glargine,Hum.Rec.Anlog 100 Unit/Ml 10 Ml Vial SUBCUT 10 unit DAILY [facility] Administration Insulin Human Lispro 0 unit 05/09/20 21:00 05/11/20 08:21 Insulin Lispro 100 Unit/Ml 3 Ml Vial SUBCUT Not Given QIDACHS [facility] Protocol Lisinopril 10 mg 05/10/20 09:00 05/11/20 08:20 Lisinopril 10 Mg Tablet PO 10 mg DAILY [facility] Administration Protocol Metoprolol Tartrate 50 mg 05/09/20 21:00 05/11/20 08:20 Metoprolol Tartrate 50 Mg Tablet PO 50 mg BID [facility] Administration Protocol Morphine Sulfate 2 mg 05/09/20 15:12 Morphine Sulfate 2 Mg/Ml Cartridge IVPUSH Q3H PRN Pain, Severe (Pain Scale 7-10) Ondansetron HCl 4 mg 05/09/20 14:31 Ondansetron Hcl 4 Mg/2 Ml Vial IVPUSH ONCE PRN Nausea and Vomiting Oxycodone HCl 5 mg 05/09/20 15:12 Oxycodone Hcl Immed Release 5 Mg Tablet PO Q4H PRN Pain, Moderate (Pain Scale 4-6 Paroxetine HCl 40 mg 05/10/20 09:00 05/11/20 08:20 Paroxetine Hcl 40 Mg Tablet PO 40 mg DAILY [facility] Administration Pharmacy Consult 1 each 05/09/20 13:44 Consult Rx Perform Med Rec MISCELLANE ONCE PRN Consult order Sodium Chloride 3 ml 05/09/20 16:00 05/11/20 08:22 0.9 % Sodium Chloride Flush 3 Ml Syringe IVFLUSH 3 ml QSWVFT [facility] Administration Sodium Chloride 3 ml 05/10/20 00:00 05/11/20 08:22 0.9 % Sodium Chloride Flush 3 Ml Syringe IVFLUSH Not Given QSWVFT [facility] Tamsulosin HCl 0.4 mg 05/10/20 09:00 05/11/20 08:20 Tamsulosin Hcl 0.4 Mg Capsule PO 0.4 mg DAILY ABELARDO Administration Trazodone HCl 25 mg 05/10/20 19:50 05/10/20 20:50 Trazodone Hcl 25 Mg Halftab PO 25 mg BEDTIME PRN Administration Insomnia Labs CBC & Chem 7: 05/11/20 04:47 05/10/20 05:22 Microbiology Microbiology Results: Microbiology 05/09/20 12:54 Blood - Venous Blood Culture - Preliminary No growth after 24 hours. 05/09/20 12:54 Blood - Venous Blood Culture - Preliminary No growth after 24 hours. 05/09/20 Unknown Abscess Rectal Gram Stain - Final 05/09/20 Unknown Abscess Rectal Routine Culture - Preliminary Culture in progress. Assessment and Plan (1) Abscess, perirectal: Status: Acute Assessment and Plan: 64-year-old Frisian-speaking man admitted by General surgery due to perirectal abscess. Patient was taken OR today for abscess I&D. Surgery was unremarkable however postoperatively patient hypotension and 1 point unresponsive. Rapid response was called. Systolic pressure was found to be 40s. After several minutes patient did come around blood pressure did improve and patient was alert and awake even joking. Seems like likely vasovagal episode as patient was sitting during the event and suddenly became unresponsive. Due to this consultation was placed. Zulay rectal abscess s/p I and D, Management per surgical team. Pain management. Vasovagal syncope. in PACU, rsolved. HypOnatremia. Mild. Likely related to dehydration. Resolved SLY. Likely related to dehydration. Getting better, follow Creat Coronary artery disease. Continue beta-meenakshi, aspirin and statin. Diabetes mellitus. Sliding scale, ADA diet, Lantus. BPH. Continue tamsulosin. DVT prophylaxis with mechanical compression boots From my perspective ok to disdcharge and to follow up with PCP
[2020-05-11 11:19] VITALS: BP 152/65; PULSE 65; RESP 15; TEMP 36.1; O2SAT 96
[2020-05-11 11:46] LABS: Glucose, Whole Blood 252 mg/dL (60-115)
--- NOTE | 2020-05-12 10:43 | PM.DS ---
DS: Providers Provider Date of Service: 05/12/20 Date of admission: 05/09/20 14:09 Primary care physician: Jerry Persaud MD Consults: 05/09/20 15:16 Consult to Hospitalist Routine Consulting Provider: Hospitalist Reason For Exam: diabetes, perirectal abscess DS: Diagnosis Discharge Diagnosis (1) Abscess, perirectal: Status: Acute (2) Status post incision and drainage: Status: Acute (3) Diabetes mellitus: Status: Acute DS: Medications Discharge Medications Home Medications: Home Medications Medication Instructions Recorded Confirmed atorvastatin 80 mg tablet 80 mg PO DAILY 03/06/20 05/09/20 gabapentin 400 mg capsule 800 mg PO BID 03/06/20 05/09/20 lisinopril 10 mg tablet 10 mg PO DAILY 03/06/20 05/09/20 tramadol 50 mg tablet 50 mg PO Q6H PRN 03/06/20 05/09/20 ferrous sulfate [FeroSul] 325 mg PO DAILY 05/09/20 05/09/20 furosemide 20 mg PO DAILY PRN 05/09/20 05/09/20 insulin glargine 0 unit SUBCUT DAILY 05/09/20 05/09/20 paroxetine HCl 40 mg PO DAILY 05/09/20 05/09/20 tamsulosin 0.4 mg PO DAILY 05/09/20 05/09/20 Previous Rx's Medication Instructions Recorded fluticasone propionate 110 2 puff INHALATION BID #12 g 02/10/20 mcg/actuation HFA aerosol inhaler fluticasone propionate 50 1 spray INTRANASAL DAILY #15.8 ml 02/10/20 mcg/actuation nasal spray,suspension metoprolol tartrate 50 mg tablet 50 mg PO BID #180 tab 03/11/20 albuterol sulfate 90 mcg/actuation 2 puff PO Q4-6H PRN #8.5 g 04/18/20 aerosol inhaler aspirin 81 mg tablet,delayed 81 mg PO DAILY #90 tab 05/01/20 release amoxicillin-pot clavulanate 1 tab PO BID #14 tab 05/10/20 [Augmentin] DS: Summary Hospital Course Hospital Course: BRIEF HPI: Regan Gibbs is a 64 year old male with PMH including diabetes mellitus, with severe pain near the anus for about 5 days now. He says this seems to be worsening. He denies any fever or chills. He says he has never had any similar problems in the past. He denies any drainage from the area. He says his blood sugars have been stable. HOSPITAL COURSE: The patient was admitted to the surgical service for further treatment of the perirectal abscess. He was started on IV zosyn, IVF, made NPO and started on PRN analgesics for pain. It was recommended to proceed with incision and drainage of the perirectal abscess under anesthesia. The patient agreed and he was added onto the OR schedule for that day. On 05/09/20, EUA, incision and drainage of right perirectal abscess was performed by Dr. Tae Crowley without complication. The patient tolerated the procedure well. During post op recovery, a rapid response was called as he became hypotensive with a SBP. He was given a 2 liter bolus with improvement in his mental status and blood pressure. Hospitalist consult was obtained and they came to evaluate patient. He was stable and transferred to the medical/surgical floor with telemetry. The patient had an uncomplicated post operative course. He stayed inpatient for 2 nights for treatment with IV zosyn. The packing was removed from the I&D site on POD #1 and dressing was changed. On POD #2, there was significant improvement in the erythema, induration and edema of the abscess site. His WBC normalized. He was transitioned to PO augmentin. He remained clinically appearing well and his vitals remained stable during this time. He was stable for discharge to home and was d/c to home with a PO course of Augmentin, with VNA services and resumption of his home [employer] services. Status at Discharge Functional status at discharge: independent ambulation Overall status at discharge: patient is progressing back to baseline Time Spent with Patient Time attestation: Total time spent providing and/or coordinating discharge services: Discharge coordination time: Less than 30 minutes Physical Exam Vital Signs: Vital Signs: Last Vital Signs Temp 97.0 F 05/11/20 11:19 Pulse 65 05/11/20 11:19 Resp 15 05/11/20 11:19 BP 152/65 H 05/11/20 11:19 Pulse Ox 96 05/11/20 11:19 Body Mass Index 43.7 Const: General: comfortable, no acute distress and alert Orientation/consciousness: patient oriented x3 Eyes: Sclerae: sclerae normal Resp: Effort & Inspection: normal respiratory effort Cardio: Rate: regular rate GI: Rectal Exam - Male: Yes other (I&D site with little erythema and induration remaining, site remains open) Skin: General skin exam: no rashes or lesions noted Neuro: General: patient oriented x3 Extrem: General: Yes no clubbing, cyanosis or edema DS: Data Data Completed and Pending Completed studies during hospitalization [Text1]: Procedures Drainage of Perineum Subcutaneous Tissue and Fascia, Open Approach (05/09/20) Labs on day of discharge: Laboratory Results - last 24 hr 05/11/20 11:17 POC Glucose 252 H Preliminary micro results at discharge 05/09/20 12:54 Blood Culture - Preliminary Blood - Venous No growth after 48 hours. 05/09/20 12:54 Blood Culture - Preliminary Blood - Venous No growth after 48 hours. 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 through [facility] transportation family ) Jerry Persaud MD [Primary Care Provider] - (Upon discharge) Tae Crowley MD [Physician] - None (as needed) Discharge Medications: New amoxicillin-pot clavulanate [Augmentin] 500-125 mg tablet 1 tab PO BID Qty: 14 RF: 0 Continued Flovent HFA 110 mcg/actuation HFA aerosol inhaler 2 puff inhalation BID Qty: 12 RF: 2 fluticasone propionate 50 mcg/actuation spray,suspension 1 spray intranasal DAILY Qty: 15.8 RF: 2 metoprolol tartrate 50 mg tablet 50 mg PO BID Qty: 180 RF: 0 albuterol sulfate 90 mcg/actuation HFA aerosol inhaler 2 puff PO Q4-6H PRN (Reason: for wheezing) Qty: 8.5 RF: 2 aspirin 81 mg tablet,delayed release (DR/EC) 81 mg PO DAILY Qty: 90 RF: 3 furosemide 20 mg tablet 20 mg PO DAILY PRN (Reason: swelling) RF: 0 tamsulosin 0.4 mg capsule 0.4 mg PO DAILY RF: 0 paroxetine HCl 40 mg tablet 40 mg PO DAILY RF: 0 ferrous sulfate [FeroSul] 325 mg (65 mg iron) tablet 325 mg PO DAILY RF: 0 insulin glargine 100 unit/mL Solution 0 unit SUBCUT DAILY RF: 0 gabapentin 400 mg capsule 800 mg PO BID RF: 0 tramadol 50 mg tablet 50 mg PO Q6H PRN (Reason: Pain) RF: 0 lisinopril 10 mg tablet 10 mg PO DAILY RF: 0 atorvastatin 80 mg tablet 80 mg PO DAILY RF: 0 Discharge Orders: Discharge Order (Routine); Ordered 05/11/20 Ordered By: Cora Moreira Diet: diabetic diet Activity on Discharge: As tolerated Stand Alone Forms: Patient Portal Discharge page Activity Restrictions/Additional Instructions: Warm soaks to the mara rectal area at least 3 times a day Need to keep the perirectal area clean and dry -wash after BMs Okay to apply dry gauze to the I&D site and change daily and as needed Care Plan Goals: Wound healing, complete antibiotics course Health Concerns: Diabetes mellitus, right perirectal abscess s/p I&D Plan of Treatment: s/p I&D, transition to PO abx and discharge to home with f/u in office Discharge Date/Time: 05/11/20 14:06
== END 2020-05-11 14:06 | disposition home health service (06) | DRG 358 ==
LOC: HO.ED 14:09 → HO.EDOVER 14:21 → HO.S3 14:23
PROVIDERS: Physician Assistant; Physician Assistant Surgical; Admitting Provider Surgery; Emergency Provider Emergency Medicine; PCP Internal Medicine; Visit Provider Surgery
PROC: 0J9B0ZZ Drainage of Perineum Subcutaneous Tissue and Fascia, Open Approach (ICD-10-PCS; CPT 46040; principal; 2020-05-09 12:10)
DX: K61.1 Rectal abscess (principal); I25.10 Atherosclerotic heart disease of native coronary artery without angina pectoris; E11.9 Type 2 diabetes mellitus without complications; N40.0 Benign prostatic hyperplasia without lower urinary tract symptoms; I95.81 Postprocedural hypotension; Z20.822 Contact with and (suspected) exposure to COVID-19; Z88.5 Allergy status to narcotic agent; Z79.4 Long term (current) use of insulin; Z79.52 Long term (current) use of systemic steroids; Z79.891 Long term (current) use of opiate analgesic; Z79.899 Other long term (current) drug therapy
CPT/HCPCS: 36415; 72192; 80048; 82947; 83605; 85025; 85027; 87040; 87071; 87205; 87635; 94640; 96365; 99024; 99285; J0690; J1885; J2370; J2543; J3010

== ENCOUNTER 2020-05-27 08:58 | Outpatient (REF) | payer MEDICARE, MEDICAID, SELFPAY ==
[2020-05-27 10:54] LABS: Glucose Urine UA NEG (NEG); Leukocyte Esterase Urine NEG (NEG); Nitrite Urine NEG (NEG); Urine Blood NEG (NEG); Urine Ketones NEG (NEG); Urine Protein TRACE MG/DL (NEG-TRACE)
[2020-05-27 10:57] LABS: Appearance Urine CLEAR; Color Urine YELLOW
[2020-05-27 11:03] LABS: MANUAL DIFF FLAG NO
[2020-05-27 11:15] LABS: Basophils Percent Auto 0.2 % (0-2); Eosinophils Absolute Auto 0.1 X10*3/uL (0.0-0.4); Eosinophils Percent Auto 0.7 % (0-4); Hematocrit 36.7 % (42-52); Hemoglobin 11.9 g/dl (14.0-18.0); Imm Gran Abs Auto 0.03 X10*3/uL (0.00-0.03); Imm Gran Pct Auto 0.3 % (0.0-0.4); Lymphocytes Percent Auto 20.9 % (20-40); Mean Corpuscular HGB Conc 32.4 g/dl (31.0-36.0); Mean Corpuscular Hemoglobin 30.4 pg (27.0-33.0); Mean Corpuscular Volume 93.6 fL (80-98); Mean Platelet Volume 12.8 fL (9.4-12.4); Monocytes Absolute Auto 0.7 X10*3/uL (0.1-1.2); Neutrophils Absolute Auto 6.9 X10*3/uL (2.0-8.3); Neutrophils Percent Auto 70.9 % (45-73); Platelet Count 229 X10*3/uL (160-400); Red Blood Count 3.92 X10*6/uL (4.60-5.80); Red Cell Distribution Width 12.3 % (11.0-16.0); White Blood Count 9.8 X10*3/uL (4.8-10.8)
[2020-05-27 11:20] LABS: Creatinine Urine 78.63 mg/dL; Microalbum/Creatinine Ratio Ur 204.7 ug/mg cr
[2020-05-27 11:27] LABS: Alanine Aminotransferase 32 U/L (0-40); Albumin Level 3.9 g/dL (3.5-5.0); Alkaline Phosphatase 146 U/L (39-117); Anion Gap 12 (12-20); Aspartate Amino Transferase 30 U/L (5-37); Bilirubin Total 0.7 mg/dL (0.0-1.0); Blood Urea Nitrogen 28 mg/dL (9-16); Calcium 9.2 mg/dL (8.4-10.2); Carbon Dioxide 33 mmol/L (22-29); Chloride 101 mmol/L (96-108); Cholesterol 137 mg/dL; Estimated Glomerular Filt Rate > 60; Glucose Fasting 157 mg/dL (60-99); HDL Cholesterol 32 mg/dL; LDL Cholesterol Calculated 76 mg/dl; Potassium 5.6 mmol/L (3.3-5.1); Sodium 140 mmol/L (135-145); Total Protein 7.3 g/dL (6.5-8.0); Triglycerides 146 mg/dL
[2020-05-27 11:41] LABS: TSH reflex Free T4 1.09 uIU/mL (0.32-4.0); Vitamin D 25-OH Total 18.3 ng/mL (>30)
[2020-05-29 04:19] LABS: Folate 11.1 ng/mL (> or = 4.0); Vitamin B12 242 pg/mL (200-900)
== END 2020-05-27 08:59 | disposition home or self-care (01) ==
LOC: HO.LAB 08:58
PROVIDERS: PCP Internal Medicine; Visit Provider Internal Medicine
DX: E11.42 Type 2 diabetes mellitus with diabetic polyneuropathy (principal); I10 Essential (primary) hypertension; I25.10 Atherosclerotic heart disease of native coronary artery without angina pectoris; E78.00 Pure hypercholesterolemia, unspecified; E66.9 Obesity, unspecified; E55.9 Vitamin D deficiency, unspecified; L30.4 Erythema intertrigo; N40.1 Benign prostatic hyperplasia with lower urinary tract symptoms; R35.0 Frequency of micturition; Z79.4 Long term (current) use of insulin
CPT/HCPCS: 36415; 80053; 80061; 81003; 82043; 82306; 82607; 82746; 84443; 85025

== ENCOUNTER 2020-07-06 09:37 | Outpatient (REF) | payer MEDICARE, MEDICAID, SELFPAY ==
[2020-07-06 10:41] LABS: Glucose Urine UA NEG (NEG); Leukocyte Esterase Urine NEG (NEG); Nitrite Urine NEG (NEG); Specific Gravity - Urine 1.025 (1.005-1.025); Urine Blood NEG (NEG); Urine Ketones NEG (NEG); Urine Protein 1+ MG/DL (NEG-TRACE)
[2020-07-06 10:42] LABS: Appearance Urine CLEAR; Color Urine YELLOW
[2020-07-06 10:48] LABS: RBC Urine 0 /HPF (0); Squamous Epithelial Cell Urine TRACE /LPF; WBC Urine 0-2 /HPF (0-4)
[2020-07-06 11:01] LABS: Alanine Aminotransferase 35 U/L (0-40); Albumin Level 3.8 g/dL (3.5-5.0); Alkaline Phosphatase 165 U/L (39-117); Anion Gap 13 (12-20); Aspartate Amino Transferase 28 U/L (5-37); Bilirubin Total 0.4 mg/dL (0.0-1.0); Blood Urea Nitrogen 21 mg/dL (9-16); Calcium 9.1 mg/dL (8.4-10.2); Carbon Dioxide 28 mmol/L (22-29); Chloride 101 mmol/L (96-108); Estimated Glomerular Filt Rate 57; Glucose Random 211 mg/dL (60-115); Potassium 4.7 mmol/L (3.3-5.1); Sodium 137 mmol/L (135-145); Total Protein 6.9 g/dL (6.5-8.0)
[2020-07-06 11:34] LABS: Estimated Average Glucose 206 mg/dL; Hemoglobin A1c % 8.8 %
== END 2020-07-06 09:38 | disposition home or self-care (01) ==
LOC: HO.LAB 09:37
PROVIDERS: Nurse Practitioner Family; PCP Internal Medicine; Visit Provider Internal Medicine
DX: E87.5 Hyperkalemia (principal); E11.9 Type 2 diabetes mellitus without complications; L30.4 Erythema intertrigo
CPT/HCPCS: 36415; 80053; 81001; 83036

== ENCOUNTER 2020-10-02 07:03 | Outpatient (REF) | payer MEDICARE, MEDICAID, SELFPAY ==
[2020-10-02 07:36] LABS: MANUAL DIFF FLAG NO
[2020-10-02 07:39] LABS: Basophils Percent Auto 0.2 % (0-2); Eosinophils Absolute Auto 0.1 X10*3/uL (0.0-0.4); Eosinophils Percent Auto 1.1 % (0-4); Hematocrit 38.1 % (42-52); Hemoglobin 12.4 g/dl (14.0-18.0); Imm Gran Abs Auto 0.04 X10*3/uL (0.00-0.03); Imm Gran Pct Auto 0.4 % (0.0-0.4); Lymphocytes Absolute Auto 2.5 X10*3/uL (1.2-4.9); Lymphocytes Percent Auto 24.2 % (20-40); Mean Corpuscular HGB Conc 32.5 g/dl (31.0-36.0); Mean Corpuscular Hemoglobin 30.3 pg (27.0-33.0); Mean Corpuscular Volume 93.2 fL (80-98); Mean Platelet Volume 12.5 fL (9.4-12.4); Monocytes Absolute Auto 0.7 X10*3/uL (0.1-1.2); Monocytes Percent Auto 7.1 % (2-11); Neutrophils Absolute Auto 6.9 X10*3/uL (2.0-8.3); Platelet Count 201 X10*3/uL (160-400); Red Blood Count 4.09 X10*6/uL (4.60-5.80); Red Cell Distribution Width 12.4 % (11.0-16.0); White Blood Count 10.4 X10*3/uL (4.8-10.8)
[2020-10-02 08:00] LABS: Estimated Average Glucose 232 mg/dL; Hemoglobin A1c % 9.7 %
[2020-10-02 08:09] LABS: Alanine Aminotransferase 24 U/L (0-40); Albumin Level 3.7 g/dL (3.5-5.0); Alkaline Phosphatase 152 U/L (39-117); Anion Gap 11 (12-20); Aspartate Amino Transferase 23 U/L (5-37); Bilirubin Total 0.7 mg/dL (0.0-1.0); Blood Urea Nitrogen 19 mg/dL (9-16); Calcium 9.1 mg/dL (8.4-10.2); Carbon Dioxide 32 mmol/L (22-29); Chloride 102 mmol/L (96-108); Cholesterol 149 mg/dL; Estimated Glomerular Filt Rate > 60; Glucose Fasting 223 mg/dL (60-99); HDL Cholesterol 31 mg/dL; LDL Cholesterol Calculated 84 mg/dl; Potassium 5.2 mmol/L (3.3-5.1); Sodium 140 mmol/L (135-145); Total Protein 6.9 g/dL (6.5-8.0); Triglycerides 172 mg/dL
[2020-10-02 08:30] LABS: TSH reflex Free T4 1.73 uIU/mL (0.32-4.0); Vitamin D 25-OH Total 18.4 ng/mL (>30)
[2020-10-02 09:17] LABS: Glucose Urine UA NEG (NEG); Leukocyte Esterase Urine NEG (NEG); Nitrite Urine NEG (NEG); Urine Blood NEG (NEG); Urine Ketones NEG (NEG); Urine Protein 1+ MG/DL (NEG-TRACE)
[2020-10-02 09:30] LABS: Creatinine Urine 204.84 mg/dL; Microalbum/Creatinine Ratio Ur 86.4 ug/mg cr
[2020-10-02 09:37] LABS: Appearance Urine HAZY; Color Urine YELLOW
[2020-10-02 09:40] LABS: RBC Urine 0-2 /HPF (0); Squamous Epithelial Cell Urine TRACE /LPF; WBC Urine 0 /HPF (0-4)
== END 2020-10-02 07:04 | disposition home or self-care (01) ==
LOC: HO.LAB 07:03
PROVIDERS: PCP Internal Medicine; Visit Provider Internal Medicine
DX: I10 Essential (primary) hypertension (principal); I25.10 Atherosclerotic heart disease of native coronary artery without angina pectoris; E66.9 Obesity, unspecified; E78.00 Pure hypercholesterolemia, unspecified; E55.9 Vitamin D deficiency, unspecified; E11.42 Type 2 diabetes mellitus with diabetic polyneuropathy; Z79.4 Long term (current) use of insulin
CPT/HCPCS: 36415; 80053; 80061; 81001; 82043; 82306; 83036; 84443; 85025

== ENCOUNTER 2020-10-05 10:00 | Outpatient (AMB) | payer MEDICARE, MEDICAID, SELFPAY ==
--- NOTE | 2020-10-05 10:07 | A.OFFVIS_ITS ---
Intake Vital Signs 10/05/20 10:08 Height 5 ft 4 in Weight 250 lb BMI 42.9 BP 136/70 Pulse 62 Pulse Source Pulse Oximeter Temp 97.5 F Pulse Oximetry (%) 97 Oxygen Delivery Method Room Air Intake Visit Reasons: AWV/ Form Apple Packing Header Required: No Accompanied by: Self / Same As Patient Allergies hydromorphone [Dilaudid] Adverse Reaction (Unknown, Verified 10/14/22 13:11) confusion From DILAUDID Adverse Reaction (Severe, Uncoded 10/14/22 13:11) CONFUSION/HALLUCIATIONS From PERCOCET Adverse Reaction (Intermediate, Uncoded 10/14/22 13:11) AGITATION HPI AWV/ Form HPI Details Patient comes in today for his Annual Medicare Wellness Exam and follow up visit States that he feels okay He denies any headaches or dizziness Denies any chest pains, no shortness of breath No nausea vomiting, no abdominal pain No change in bowel habits noted Had his follow up labs done a few days ago - to discuss his results He would like to request for prescription for a shower chair IPPE/AWV:? c/o of Annual Wellness Visit, initial visit. ? Medical / Social History Reviewed? Past Medical History? Yes . ? [facility] / Care Team list updated? Yes . ? Surgical/Hospitalization History? Yes . ? Current Medications (including OTC and supplements)? Yes . ? Family History? Yes . ? Tobacco Control form? Yes . ? AUDIT-C (Alcohol use) form? Yes . ? Illicit drug use in Social History? Yes . ? Current diagnosis of depression?? No ? Appropriate PHQ2/PHQ9 completed? Yes . ? Data entered by? Account Representative and reviewed by provider ?Home Safety? Throw rugs?? No ? Grab bars?? No ? Raised toilet seats?? No ? Working smoke detectors?? Yes ? Working carbon monoxide detectors?? Yes ? Data? entered by Account Representative and reviewed by provider ? Activities of Daily Living (ADLs)? Difficulty bathing or showering?? No ? Difficulty dressing?? No ? Difficulty using the toilet?? No ? Difficulty getting in and out of bed?? No ? Difficulty walking?? No ? Receives help from another person with any of the above tasks?? No ? Instrumental Activities of Daily Living (IADLs)? Uses the telephone? without help ? Gets to places out of walking distance? without help ? Goes shopping for groceries? without help ? Prepares own meals? without help ? Does own minor home maintenance? with help [facility] Medical History (Updated 10/21/22 @ 03:38 by Jerry Persaud MD) Benign essential hypertension Benign prostatic hyperplasia with urinary frequency Constipation Coronary artery disease Diabetes mellitus Diabetic polyneuropathy Gastritis and duodenitis Hyperkalemia Intertrigo Major depressive disorder, recurrent Obesity (BMI 30-39.9) Obstructive sleep apnea Pure hypercholesterolemia Vitamin B12 deficiency Vitamin D deficiency Surgical History History of prostate surgery (~12/04/10) History of quadruple bypass (~2005) Hx of cataract extraction (~2011) Hx of cholecystectomy (~2007) Hx of cystoscopy Family History Father Lung cancer Mother Diabetes Hypertension Stomach cancer Social History Household Members: None Housing: Apartment Do you presently have visiting nurse or other home services: No Alcohol intake: never Patient Tobacco Use Status: Former Tobacco user Quit Date: 17 years ago e-Cigarette/Vaping Use: Never Used Second Hand Smoke Exposure: No Advance Directives Date on File: 05/09/20 service: No Current occupational status: disabled Cognitive needs: Yes (cane) Hearing needs: No Vision needs: Yes Questionnaire PHQ-9 Over the last 2 weeks, how often have you been bothered by any of the following problems? 1. Little interest or pleasure in doing things: not at all 2. Feeling down, depressed, or hopeless: not at all 3. Trouble falling or staying asleep, or sleeping too much: not at all 4. Feeling tired or having little energy: not at all 5. Poor appetite or overeating: not at all 6. Feeling bad about yourself - or that you are a failure or have let yourself or your family down: not at all 7. Trouble concentrating on things, such as reading the newspaper or watching television: not at all 8. Moving or speaking so slowly that other people could have noticed. Or the opp osite - being so fidgety or restless that you have been moving around a lot more than usual: not at all 9. Thoughts that you would be better off or of hurting yourself in some way: not at all Total score: 0 10. If you checked off any problems, how difficult have those problems made it for you to do your work, take care of things at home, or get along with other people?: not difficult at all 0-4 None-Minimal, 5-9 Mild, 10-14 Moderate, 15-19 Moderately Severe, 20-27 Severe Source: Developed by Drs. Steven Miller, Monie Garduno, Trevor Lin and colleagues, with an educational kwabena from [employer]. Medicare Wellness Checkup [age] 65-69 What gender do you identify with?: male During the past 4 weeks, how much have you been bothered by emotional problems such as feeling anxious, depressed, irritable, sad or downhearted, and blue?: quite a bit During the past 4 weeks, how much bodily pain have you generally had?: moderate pain During the past 4 weeks, was someone available to help you if you needed & wanted help?: yes, a little During the past 4 weeks, what was the hardest physical activity you could do for at least 2 minutes?: very light Can you get to places out of walking distance without help? (For eg., can you travel alone on buses, taxis or drive your car?): Yes Can you go shopping for groceries or clothes without someone's help?: Yes Can you prepare your own meals?: Yes Can you do your housework without help?: No Because of any health problems, do you need the help of another person with your personal care needs such as eating, bathing, dressing or getting around the house?: Yes Can you handle your own money without help?: Yes During the past 4 weeks, how would you rate your health in general?: poor During the past 4 weeks how have things been going for you?: good & bad parts about equal Are you having difficulties driving your car?: no Do you always fasten your seat belt when you are in a car?: yes, usually During past 4 weeks, have you been bothered by the following: seldom: Trouble eating well?, sometimes: Falling or dizzy when standing up and Problems using the telephone?, often: Teeth or denture problems? and Tiredness or fatigue? and always: Sexual problems? Have you fallen 2 or more times in the past year?: Yes Are you afraid of falling?: Yes Are you a smoker?: no During the past 4 weeks, how many drinks of wine, beer, or other alcoholic beverages did you have?: no alcohol at all Do you exercise for about 20 minutes 3 or more times a week?: no, I usually do not exercise this much Have you been given information to help with the following?: no: Hazards in your house that might hurt you? and no: Keeping track of your medications? How often do you have trouble taking medicines the way you have been told to take them?: I always take medicine as prescribed How confident are you that you can control & manage most of your health problems?: somewhat confident What is your race?: or origin or descent Mini Mental State Exam (MMSE) Orientation What is the (year) (season) (date) (day) (month)?: year, season, date, day and month Where are we (state) (county) (town or city) (hospital) (floor)?: state, county, town or city, hospital/clinic and floor Registration Name of 3 unrelated objects clearly and slowly, then ask patient to repeat all 3 of them. (1st repeat determines score. Make sure they can repeat all three): object 1, object 2 and object 3 Attention & Calculation (CHOOSE ONE) Ask pt to begin with 100 & count backward by 7. Stop after 5 repeats. If pt cannot ask them to spell the word WORLD backward.: 93, 86, 79 and 72 Recall Ask patient to repeat the 3 items from question #3.: object 1 and object 2 Language Show patient a wristwatch & ask what it is. Repeat for pencil.: watch and pencil Ask the patient to repeat the phrase 'No ifs, ands, or buts' after you.: correct Ask the patient to 'take a piece of paper with their right hand' 'fold paper in half' 'place paper on floor': take paper in right hand, fold paper in half and place paper on floor Print the sentence 'CLOSE YOUR EYES' on a piece. If patient actually closes eyes then score.: followed written direction Give patient a blank piece of paper & ask to write a sentence. Score if it contains a noun & verb.: sentence contains subject and verb Score Score: 27 Activity of Daily Living Bathing - sponge bath, tub bath or shower: receives no assistance (gets in/out by self, if usual bathing means Dressing - getting clothes from closets & drawers, including inner/outer garments & fasteners.: gets clothes & gets completely dressed without help Toileting - going to the 'toilet room' for urine/bowel elimination & cleaning self/arranging clothes: goes to toilet room, cleans self, arranges clothes without help Transfer: moves in & out of bed and chair without help (may use support object) Continence: controls urination/bowel movements completely by self Feeding: feeds self without help Total Score: 0 Information obtained from: patient Using telephone: independent Traveling: independent Shopping: independent Preparing meals: independent Housework: needs assistance Taking medicine: independent Managing money: independent AUDIT C Alcohol Use Questionnaire (AUDIT-C) 1. How often do you have a drink containing alcohol?: Never 3. How often do you have six or more drinks on one occasion?: Never Total Score: 0 Score Reviewed/Action Taken: Yes Thrive Questionnaire Date Thrive assessed: 10/05/20 I am a: Patient What is your living situation today?: I have a steady place to live Within the past 12 months, did the food you bought not last and you didn't have the money to get more?: Never true Within the past 12 months, did you worry whether your food would run out before you got money to buy more?: Never true Do you have trouble paying for medicines?: No Do you have trouble getting transportation to medical appointments?: No Do you have trouble paying your heating and electricity bill?: No Do you have trouble taking care of your child, family member or friend?: No Do you have trouble with day-to-day activities such as bathing, preparing meals, shopping, managing finances, etc.?: No Are you currently unemployed and looking for a job?: No Are you interested in more education?: No Currently or been in a relationship where the following occur: no concerns reported Review of Systems Const Denies chills, Reports fatigue, Denies fever(s) and Denies headache(s) ENT Denies dysphagia, Denies dizziness, Denies otalgia, Denies headache(s), Denies odynophagia and Denies sore throat Card Denies chest pain, Denies palpitations and Denies dyspnea Resp Denies cough and Denies dyspnea GI Denies abdominal pain, Denies constipation, Denies dysphagia, Denies heartburn, Denies diarrhea, Denies nausea, Denies odynophagia and Denies vomiting Denies dysuria, Denies nocturia and Denies urinary frequency Musc Denies back pain and Denies arthralgias Skin/Breast Denies rash Neuro Denies dizziness and Denies headache(s) Endo Reports fatigue and Denies palpitations Physical Exam Vital Signs: Last Vital Signs Temp 97.5 F 10/05/20 10:08 Pulse 62 10/05/20 10:08 BP 136/70 10/05/20 10:08 Pulse Ox 97 10/05/20 10:08 Oxygen Delivery Method Room Air 10/05/20 10:08 BMI result Body Mass Index 42.9 IPPE/AWV: Balance Romberg Yes . Tandem walk NO . Walk and Turn Yes . Rise from sit to stand Yes . Vision Corrective lens No Vision screen pass Hearing Whisper test pass . Urinary incont. no. EKG Not clinically necessary. Const General: no acute distress and alert HENMT Ears: TM's normal bilaterally and EAC's normal Throat: Yes posterior oropharynx normal and Yes tonsils normal (no TP congestion noted) Neck Neck: Yes no lymphadenopathy and Yes supple Resp Auscultation: clear to auscultation bilaterally, no rales and no wheezes Cardio Rate: regular rate Rhythm: regular rhythm Heart sounds: no murmurs GI Palpation (GI): Soft to palpation and nontender Auscultation: normal bowel sounds Rectal Exam - Male: Yes other ((+) healing wound/ulcer over the perianal area; no drainage noted) Extrem General: Yes no clubbing, cyanosis or edema Results Reviewed Results Reviewed: Laboratory Tests 10/02/20 10/02/20 10/02/20 07:20 07:20 07:20 WBC 10.4 Hgb 12.4 L Hct 38.1 L Plt Count 201 Sodium 140 Potassium 5.2 H Creatinine 1.10 Estimated GFR > 60 Fasting Glucose 223 H D Estimat Average Glucose 232 Hemoglobin A1c % 9.7 AST 23 ALT 24 Triglycerides 172 Cholesterol 149 LDL Cholesterol, Calc 84 HDL Cholesterol 31 25-OH Vitamin D Total 18.4 TSH 1.73 Urine pH Ur Specific [place] Urine Protein Urine Glucose (UA) Urine Blood 10/02/20 07:25 WBC Hgb Hct Plt Count Sodium Potassium Creatinine Estimated GFR Fasting Glucose Estimat Average Glucose Hemoglobin A1c % AST ALT Triglycerides Cholesterol LDL Cholesterol, Calc HDL Cholesterol 25-OH Vitamin D Total TSH Urine pH 6.0 Ur Specific [place] 1.020 Urine Protein 1+ H Urine Glucose (UA) NEG Urine Blood NEG Assessment & Plan Assessment & Plan (1) Medicare annual wellness visit, initial: Code(s): Z00.00 - Encounter for general adult medical examination without abnormal findings Plan: HRA form reviewed and discussed with patient; form will be scanned into patient's chart (2) Diabetes mellitus: Code(s): E11.9 - Type 2 diabetes mellitus without complications Qualifiers: Diabetes mellitus complication detail: with polyneuropathy Diabetes mellitus complication status: with neurologic complications Diabetes mellitus alf insulin use: with intermediate designer use Diabetes mellitus type: type 2 Qualified Code(s): E11.42 - Type 2 diabetes mellitus with diabetic polyneuropathy; Z79.4 - intermediate designer (current) use of insulin Plan: HgbA1c was at 9.7% on his labs done a few days ago - goal is <7.0% Reinforced diabetic diet Continue Humalog Kwikpen up to 50 units BID per sliding scale, Lantus 80 units BID and Invokana 100 mg Q AM Will refer patient to endocrinology for further evaluation and management (3) Diabetic polyneuropathy: Code(s): E11.42 - Type 2 diabetes mellitus with diabetic polyneuropathy Qualifiers: Diabetes mellitus type: type 2 Qualified Code(s): E11.42 - Type 2 diabetes mellitus with diabetic polyneuropathy Plan: Continue Gabapentin 400 mg BID, Tramadol 50 mg TID PRN and Duloxetine 30 mg QD Pateint is reminded again that the best way to slow down the progression of his neuropathy is to get his diabetes under control, with goal of HgbA1c of at least <7.0% or 7.5% (4) Coronary artery disease: Comment: 2005 Code(s): I25.10 - Atherosclerotic heart disease of [place] coronary artery without angina pectoris Qualifiers: Coronary Disease-Associated Artery/Lesion type: [place] artery [place] vs. transplanted heart: [place] heart Associated angina: without angina Qualified Code(s): I25.10 - Atherosclerotic heart disease of [place] coronary artery without angina pectoris Plan: S/P quadruple bypass in 2005 Continue Aspirin 81 mg QD and Metoprolol 50 mg BID Follow up with cardiology (Dr. Zhou) as scheduled (5) Pure hypercholesterolemia: Code(s): E78.00 - Pure hypercholesterolemia, unspecified Plan: Results of his labs done a few days ago reviewed and discussed with patient Reinforced low cholesterol diet Continue Atorvastatin 80 mg QD Will recheck his labs and fasting lipids in 3 months for follow up (6) Benign essential hypertension: Code(s): I10 - Essential (primary) hypertension Plan: Reinforced low-sodium diet - goal is systolic BP of at least 130 mm or less Continue Lisinopril 10 mg QD and Metoprolol 50 mg BID (7) Obesity (BMI 30-39.9): Code(s): E66.9 - Obesity, unspecified Plan: Reinforced diet/exercise as tolerated/lose weight Plan Follow up in 3 months Orders: Referrals Endocrinology Referral E11.42 - Type 2 diabetes mellitus with diabetic polyneuropathy, Z79.4 - [facility] (current) use of insulin Medications: New [SHOWER CHAIR] As directed 1 ea 0RF E11.42 - Type 2 diabetes mellitus with diabetic polyneuropathy Quality Reporting (2019) Depression/Bipolar (159/160/161/177) PHQ-9: Total score: 0 Coding Level of Care Code Medicare First (G0438) Est Pt Level 4 (23967) Diagnoses Medicare annual wellness visit, initial Z00.00 Diabetes mellitus E11.42; Z79.4 Diabetes mellitus complication detail: with polyneuropathy Diabetes mellitus complication status: with neurologic complications Diabetes mellitus alf insulin use: with intermediate designer use Diabetes mellitus type: type 2 Diabetic polyneuropathy E11.42 Diabetes mellitus type: type 2 Coronary artery disease I25.10 Coronary Disease-Associated Artery/Lesion type: [place] artery [place] vs. transplanted heart: [place] heart Associated angina: without angina Pure hypercholesterolemia E78.00 Benign essential hypertension I10 Obesity (BMI 30-39.9) E66.9
[2020-10-05 10:08] VITALS: BP 136/70; PULSE 62; TEMP 36.4; O2SAT 97; BMI 42.9
== END 2020-10-05 11:21 | disposition home or self-care (01) ==
LOC: HO.HMGH 10:00
PROVIDERS: PCP Internal Medicine; Visit Provider Internal Medicine
DX: Z00.00 Encounter for general adult medical examination without abnormal findings (principal); E11.42 Type 2 diabetes mellitus with diabetic polyneuropathy; Z79.4 Long term (current) use of insulin; I10 Essential (primary) hypertension; I25.10 Atherosclerotic heart disease of native coronary artery without angina pectoris; E78.00 Pure hypercholesterolemia, unspecified; E66.9 Obesity, unspecified
CPT/HCPCS: G0438

== ENCOUNTER 2021-01-05 07:12 | Outpatient (REF) | payer MEDICARE, MEDICAID, SELFPAY ==
[2021-01-05 09:58] LABS: Appearance Urine CLEAR; Color Urine YELLOW; Glucose Urine UA NEG (NEG); Leukocyte Esterase Urine NEG (NEG); Nitrite Urine NEG (NEG); Specific Gravity - Urine 1.015 (1.005-1.025); Urine Blood NEG (NEG); Urine Ketones NEG (NEG); Urine Protein TRACE MG/DL (NEG-TRACE)
== END 2021-01-05 07:13 | disposition home or self-care (01) ==
LOC: HO.LAB 07:12
PROVIDERS: PCP Internal Medicine; Visit Provider Internal Medicine
DX: E11.42 Type 2 diabetes mellitus with diabetic polyneuropathy (principal); I10 Essential (primary) hypertension; L30.4 Erythema intertrigo; Z79.4 Long term (current) use of insulin
CPT/HCPCS: 81003

== ENCOUNTER → 2021-07-03 08:02 | Outpatient (BNVA) | payer OTHER, MEDICAID, SELFPAY | PROVIDERS: PCP Internal Medicine; Visit Provider Internal Medicine Endocrinology, Diabetes & Metabolism | DX: E11.42 Type 2 diabetes mellitus with diabetic polyneuropathy (principal); Z79.4 Long term (current) use of insulin | CPT/HCPCS: 82947 ==

== ENCOUNTER → 2021-07-24 07:59 | Outpatient (BNVA) | payer OTHER, MEDICAID, SELFPAY | PROVIDERS: PCP Internal Medicine; Visit Provider Registered Nurse Diabetes Educator | DX: E11.9 Type 2 diabetes mellitus without complications (principal) ==

== ENCOUNTER → 2021-08-03 08:59 | Outpatient (BNVA) | payer OTHER, MEDICAID, SELFPAY | PROVIDERS: PCP Internal Medicine; Visit Provider Dietitian, Registered | DX: E11.9 Type 2 diabetes mellitus without complications (principal) | CPT/HCPCS: 97802 ==

== ENCOUNTER 2021-08-28 06:35 | Outpatient (REF) | payer OTHER, SELFPAY ==
[2021-08-28 07:03] LABS: MANUAL DIFF FLAG NO
[2021-08-28 07:30] LABS: Basophils Percent Auto 0.2 % (0-2); Eosinophils Absolute Auto 0.1 X10*3/uL (0.0-0.4); Eosinophils Percent Auto 1.1 % (0-4); Hematocrit 37.4 % (42.0-52.0); Hemoglobin 12.5 g/dl (14.0-18.0); Imm Gran Abs Auto 0.05 X10*3/uL (0.00-0.03); Imm Gran Pct Auto 0.5 % (0.0-0.4); Lymphocytes Absolute Auto 2.5 X10*3/uL (1.2-4.9); Lymphocytes Percent Auto 24.8 % (20-40); Mean Corpuscular HGB Conc 33.4 g/dl (31.0-36.0); Mean Corpuscular Hemoglobin 30.5 pg (27.0-33.0); Mean Corpuscular Volume 91.2 fL (80.0-98.0); Mean Platelet Volume 12.8 fL (9.4-12.4); Monocytes Absolute Auto 0.7 X10*3/uL (0.1-1.2); Monocytes Percent Auto 6.9 % (2-11); Neutrophils Absolute Auto 6.6 x10*3/uL (2.0-8.3); Neutrophils Percent Auto 66.5 % (45-73); Platelet Count 193 X10*3/uL (160-400); Red Cell Distribution Width 12.3 % (11.0-16.0); White Blood Count 9.9 X10*3/uL (4.8-10.8)
[2021-08-28 07:42] LABS: Estimated Average Glucose 203 mg/dL; Hemoglobin A1c % 8.7 %
[2021-08-28 07:51] LABS: Appearance Urine CLEAR; Color Urine YELLOW; Glucose Urine UA NEG (NEG); Leukocyte Esterase Urine NEG (NEG); Nitrite Urine NEG (NEG); PH 5.5 (5.0-8.0); Specific Gravity - Urine >= 1.030 (1.005-1.025); UACC Culture Trigger NO; Urine Blood TRACE (NEG); Urine Ketones NEG (NEG); Urine Protein 2+ MG/DL (NEG-TRACE)
[2021-08-28 07:54] LABS: Alanine Aminotransferase 19 U/L (0-40); Albumin Level 3.7 g/dL (3.5-5.0); Alkaline Phosphatase 168 U/L (39-117); Anion Gap 11 (12-20); Aspartate Amino Transferase 19 U/L (5-37); Bilirubin Total 0.4 mg/dL (0.0-1.0); Blood Urea Nitrogen 18 mg/dL (9-16); Calcium 8.7 mg/dL (8.4-10.2); Carbon Dioxide 26 mmol/L (22-29); Chloride 103 mmol/L (96-108); Cholesterol 180 mg/dL; Estimated Glomerular Filt Rate > 60; Glucose Fasting 258 mg/dL (60-99); HDL Cholesterol 26 mg/dL; Sodium 136 mmol/L (135-145); Total Protein 6.9 g/dL (6.5-8.0); Triglycerides 467 mg/dL
[2021-08-28 07:58] LABS: B Type Natriuretic Peptide 102 pg/mL (<100)
[2021-08-28 08:02] LABS: Hyaline Casts Urine 0-2 /LPF; RBC Urine 0-2 /HPF (0); Squamous Epithelial Cell Urine 2+ /LPF; Urine Talc Crystals 2+ /LPF
[2021-08-28 08:18] LABS: TSH reflex Free T4 1.77 uIU/mL (0.32-4.0); Vitamin D 25-OH Total 17.1 ng/mL (>30)
[2021-08-28 08:21] LABS: Creatinine Urine 185.24 mg/dL
[2021-08-28 08:25] LABS: Folate 9.6 ng/mL (> or = 4.0); Vitamin B12 191 pg/mL (200-900)
[2021-08-28 08:41] LABS: Microalbum/Creatinine Ratio Ur 338.4 ug/mg cr
== END 2021-08-28 06:36 | disposition home or self-care (01) ==
LOC: HO.LAB 06:35
PROVIDERS: PCP Internal Medicine; Visit Provider Internal Medicine
DX: I89.0 Lymphedema, not elsewhere classified (principal); R60.0 Localized edema; I10 Essential (primary) hypertension; E11.42 Type 2 diabetes mellitus with diabetic polyneuropathy; E55.9 Vitamin D deficiency, unspecified; E78.00 Pure hypercholesterolemia, unspecified
CPT/HCPCS: 36415; 80053; 80061; 81001; 82043; 82306; 82607; 82746; 83036; 83880; 84443; 85025

== ENCOUNTER → 2021-09-07 10:58 | Outpatient (BNVA) | payer OTHER, SELFPAY | PROVIDERS: PCP Internal Medicine; Visit Provider Dietitian, Registered | DX: E11.9 Type 2 diabetes mellitus without complications (principal); Z71.3 Dietary counseling and surveillance | CPT/HCPCS: 97803 ==

== ENCOUNTER 2021-09-25 07:02 | Outpatient (REF) | payer OTHER, SELFPAY ==
[2021-09-25 08:19] LABS: Anion Gap 11 (12-20); Blood Urea Nitrogen 21 mg/dL (9-16); Calcium 8.9 mg/dL (8.4-10.2); Carbon Dioxide 29 mmol/L (22-29); Chloride 105 mmol/L (96-108); Cholesterol 133 mg/dL; Estimated Glomerular Filt Rate > 60; Glucose Random 140 mg/dL (60-115); HDL Cholesterol 28 mg/dL; LDL Cholesterol Calculated 76 mg/dl; Potassium 4.9 mmol/L (3.3-5.1); Sodium 140 mmol/L (135-145); Triglycerides 146 mg/dL
[2021-09-25 08:54] LABS: Microalbum/Creatinine Ratio Ur 144.9 ug/mg cr
== END 2021-09-25 07:03 | disposition home or self-care (01) ==
LOC: HO.LAB 07:02
PROVIDERS: PCP Internal Medicine; Visit Provider Internal Medicine Endocrinology, Diabetes & Metabolism
DX: E11.9 Type 2 diabetes mellitus without complications (principal)
CPT/HCPCS: 36415; 80048; 80061; 82043

== ENCOUNTER 2021-12-02 07:23 | Emergency (ER) | payer OTHER, SELFPAY ==
[2021-12-02 08:02] VITALS: BP 162/70; PULSE 73; RESP 18; TEMP 37.1; O2SAT 96; BMI 46.3
== END 2021-12-02 12:30 | disposition left against medical advice (07) ==
PROVIDERS: Emergency Provider Emergency Medicine; PCP Internal Medicine
DX: R60.0 Localized edema (principal)
CPT/HCPCS: 99281

== ENCOUNTER → 2021-12-03 11:10 | Outpatient (BNVA) | payer OTHER, SELFPAY | PROVIDERS: PCP Internal Medicine; Visit Provider Registered Nurse Diabetes Educator | DX: E11.9 Type 2 diabetes mellitus without complications (principal) | CPT/HCPCS: 99211 ==

== ENCOUNTER 2021-12-31 06:36 | Outpatient (REF) | payer OTHER, SELFPAY ==
[2021-12-31 07:56] LABS: Eosinophils Absolute Auto 0.1 X10*3/uL (0.0-0.4); Imm Gran Abs Auto 0.05 X10*3/uL (0.00-0.03); Imm Gran Pct Auto 0.4 % (0.0-0.4); MANUAL DIFF FLAG SCAN; SCAN SMEAR FLAG 1
[2021-12-31 07:58] LABS: Basophils Percent Auto 0.2 % (0-2); Hematocrit 39.4 % (42.0-52.0); Lymphocytes Absolute Auto 3.4 X10*3/uL (1.2-4.9); Lymphocytes Percent Auto 27.8 % (20-40); Mean Corpuscular Hemoglobin 30.2 pg (27.0-33.0); Mean Corpuscular Volume 91.4 fL (80.0-98.0); Monocytes Percent Auto 7.7 % (2-11); Neutrophils Absolute Auto 7.8 x10*3/uL (2.0-8.3); Neutrophils Percent Auto 62.9 % (45-73); PLT CLUMP 1; Red Blood Count 4.31 X10*6/uL (4.60-5.80)
[2021-12-31 08:02] LABS: PLT ABN DIST 1
[2021-12-31 08:42] LABS: White Blood Count 12.4 X10*3/uL (4.8-10.8)
[2021-12-31 08:43] LABS: Mean Platelet Volume 13.2 fL (9.4-12.4); Platelet Count 184 X10*3/uL (160-400); SLIDE REVIEW VERIFIED
[2021-12-31 08:54] LABS: Estimated Average Glucose 229 mg/dL; Hemoglobin A1c % 9.6 %
[2021-12-31 09:12] LABS: Folate 14.5 ng/mL (> or = 4.0); Vitamin B12 598 pg/mL (200-900)
[2021-12-31 09:17] LABS: Alanine Aminotransferase 32 U/L (0-40); Albumin Level 3.8 g/dL (3.5-5.0); Alkaline Phosphatase 184 U/L (39-117); Anion Gap 19 (12-20); Aspartate Amino Transferase 29 U/L (5-37); Bilirubin Total 0.4 mg/dL (0.0-1.0); Blood Urea Nitrogen 22 mg/dL (9-16); Calcium 9.3 mg/dL (8.4-10.2); Carbon Dioxide 23 mmol/L (22-29); Chloride 102 mmol/L (96-108); Cholesterol 143 mg/dL; Estimated Glomerular Filt Rate > 60; Glucose Fasting 95 mg/dL (60-99); HDL Cholesterol 30 mg/dL; LDL Cholesterol Calculated 83 mg/dl; Potassium 4.9 mmol/L (3.3-5.1); Sodium 139 mmol/L (135-145); Total Protein 7.3 g/dL (6.5-8.0); Triglycerides 153 mg/dL
[2021-12-31 09:23] LABS: TSH reflex Free T4 1.58 uIU/mL (0.32-4.0); Vitamin D 25-OH Total 30.3 ng/mL (>30)
[2021-12-31 09:25] LABS: Appearance Urine Clear; Color Urine Yellow; Glucose Urine UA Negative (Negative); Leukocyte Esterase Urine Negative (Negative); Nitrite Urine Negative (Negative); PH 5.5 (5.0-9.0); UMIC TRIGGER UACC YES; Urine Blood Negative (Negative); Urine Ketones Trace mg/dL (Negative); Urine Protein 30 (1+) mg/dL (Neg-Trace)
[2021-12-31 09:29] LABS: Bacteria Urine None Seen (None Seen); Hyaline Casts Urine 0-2 /LPF (0-2); RBC Urine 0-2 /HPF (0-2); Squamous Epithelial Cell Urine 0-2 /HPF (0-2); WBC Urine 0-5 /HPF (0-5)
[2021-12-31 13:55] LABS: Creatinine Urine 178.87 mg/dL; Microalbum/Creatinine Ratio Ur 158.2 ug/mg cr
== END 2021-12-31 06:37 | disposition home or self-care (01) ==
LOC: HO.LAB 06:36
PROVIDERS: PCP Internal Medicine; Visit Provider Internal Medicine
DX: E78.00 Pure hypercholesterolemia, unspecified (principal); E55.9 Vitamin D deficiency, unspecified; E11.9 Type 2 diabetes mellitus without complications; E53.8 Deficiency of other specified B group vitamins; I10 Essential (primary) hypertension
CPT/HCPCS: 36415; 80053; 80061; 81001; 82043; 82306; 82607; 82746; 83036; 84443; 85025

== ENCOUNTER → 2022-01-21 12:25 | Outpatient (BNVA) | payer OTHER, SELFPAY | PROVIDERS: PCP Internal Medicine; Visit Provider Dietitian, Registered | DX: E11.9 Type 2 diabetes mellitus without complications (principal) | CPT/HCPCS: 97803 ==

== ENCOUNTER → 2022-01-23 10:13 | Outpatient (BNVA) | payer OTHER, SELFPAY | PROVIDERS: PCP Internal Medicine; Visit Provider Internal Medicine Endocrinology, Diabetes & Metabolism | DX: E11.42 Type 2 diabetes mellitus with diabetic polyneuropathy (principal); Z79.4 Long term (current) use of insulin | CPT/HCPCS: 82947; 99212 ==

== ENCOUNTER → 2022-02-25 08:44 | Outpatient (BNVA) | payer OTHER, SELFPAY | PROVIDERS: PCP Internal Medicine; Visit Provider Urology | DX: Z13.9 Encounter for screening, unspecified (principal); N40.1 Benign prostatic hyperplasia with lower urinary tract symptoms; R32 Unspecified urinary incontinence | CPT/HCPCS: 51798; 99202 ==

== ENCOUNTER → 2022-03-19 09:27 | Outpatient (BNVA) | payer OTHER, SELFPAY | PROVIDERS: PCP Internal Medicine; Visit Provider Surgery Vascular Surgery | DX: I83.11 Varicose veins of right lower extremity with inflammation (principal) | CPT/HCPCS: 99212 ==

== ENCOUNTER 2022-04-01 07:17 | Outpatient (REF) | payer OTHER, SELFPAY ==
[2022-04-01 07:35] LABS: MANUAL DIFF FLAG NO
[2022-04-01 08:18] LABS: Basophils Percent Auto 0.2 % (0-2); Eosinophils Absolute Auto 0.1 X10*3/uL (0.0-0.4); Eosinophils Percent Auto 1.4 % (0-4); Hematocrit 36.7 % (42.0-52.0); Hemoglobin 12.2 g/dl (14.0-18.0); Imm Gran Abs Auto 0.02 X10*3/uL (0.00-0.03); Imm Gran Pct Auto 0.2 % (0.0-0.4); Lymphocytes Absolute Auto 2.4 X10*3/uL (1.2-4.9); Lymphocytes Percent Auto 24.3 % (20-40); Mean Corpuscular HGB Conc 33.2 g/dl (31.0-36.0); Mean Corpuscular Hemoglobin 29.8 pg (27.0-33.0); Mean Corpuscular Volume 89.7 fL (80.0-98.0); Mean Platelet Volume 12.9 fL (9.4-12.4); Monocytes Absolute Auto 0.7 X10*3/uL (0.1-1.2); Monocytes Percent Auto 6.8 % (2-11); Neutrophils Absolute Auto 6.8 x10*3/uL (2.0-8.3); Neutrophils Percent Auto 67.1 % (45-73); Platelet Count 159 X10*3/uL (160-400); Red Blood Count 4.09 X10*6/uL (4.60-5.80); Red Cell Distribution Width 12.3 % (11.0-16.0); White Blood Count 10.1 X10*3/uL (4.8-10.8)
[2022-04-01 08:23] LABS: Appearance Urine Clear; Color Urine Yellow; Glucose Urine UA Negative (Negative); Leukocyte Esterase Urine Negative (Negative); Nitrite Urine Negative (Negative); PH 5.5 (5.0-9.0); UMIC TRIGGER UACC YES; Urine Blood Negative (Negative); Urine Ketones Negative (Negative); Urine Protein 30 (1+) mg/dL (Neg-Trace)
[2022-04-01 08:29] LABS: Bacteria Urine None Seen (None Seen); Hyaline Casts Urine 0-2 /LPF (0-2); RBC Urine 0-2 /HPF (0-2); Squamous Epithelial Cell Urine 0-2 /HPF (0-2); WBC Urine 0-5 /HPF (0-5)
[2022-04-01 08:40] LABS: Creatinine Urine 128.68 mg/dL; Microalbum/Creatinine Ratio Ur 135.2 ug/mg cr
[2022-04-01 08:50] LABS: Alanine Aminotransferase 43 U/L (0-40); Albumin Level 3.6 g/dL (3.5-5.0); Alkaline Phosphatase 155 U/L (39-117); Anion Gap 14 (12-20); Aspartate Amino Transferase 33 U/L (5-37); Bilirubin Total 0.6 mg/dL (0.0-1.0); Blood Urea Nitrogen 19 mg/dL (9-16); Carbon Dioxide 26 mmol/L (22-29); Chloride 108 mmol/L (96-108); Cholesterol 108 mg/dL; Estimated Glomerular Filt Rate > 60; Glucose Fasting 141 mg/dL (60-99); HDL Cholesterol 27 mg/dL; LDL Cholesterol Calculated 62 mg/dl; Potassium 4.2 mmol/L (3.3-5.1); Sodium 144 mmol/L (135-145); Total Protein 6.6 g/dL (6.5-8.0); Triglycerides 96 mg/dL
[2022-04-01 08:51] LABS: Estimated Average Glucose 171 mg/dL; Hemoglobin A1c % 7.6 %
[2022-04-01 09:06] LABS: PSA,Total (Free>4and<10) 0.31 ng/mL (0.00-4.00); TSH reflex Free T4 0.99 uIU/mL (0.32-4.0); Vitamin D 25-OH Total 29.9 ng/mL (>30)
== END 2022-04-01 07:18 | disposition home or self-care (01) ==
LOC: HO.LAB 07:17
PROVIDERS: Urology; PCP Internal Medicine; Visit Provider Internal Medicine
DX: Z12.5 Encounter for screening for malignant neoplasm of prostate (principal); E78.00 Pure hypercholesterolemia, unspecified; E11.9 Type 2 diabetes mellitus without complications; I10 Essential (primary) hypertension; E55.9 Vitamin D deficiency, unspecified; N40.1 Benign prostatic hyperplasia with lower urinary tract symptoms
CPT/HCPCS: 36415; 80053; 80061; 81001; 82043; 82306; 83036; 84153; 84443; 85025

== ENCOUNTER 2022-04-04 12:15 | Outpatient (REF) | payer OTHER, SELFPAY ==
--- NOTE | ~2022-04-04 | US_ITS ---
EXAMINATION: US RETROPERITONEAL LIMITED (RENAL ONLY) CLINICAL INFORMATION: Benign prostatic hypertrophy with lower urinary tract symptoms. COMPARISON: CT scan of 01/07/2016. TECHNIQUE: Renal and bladder ultrasound. FINDINGS: RIGHT KIDNEY: 9.6 x 5.4 x 4.7 cm (SAG x AP x TRV). The kidney is normal in size, contour, and echogenicity. Renal cortical thickness is normal. No calculi or focal parenchymal lesions. No hydronephrosis. LEFT KIDNEY: 10.5 x 5.8 x 3.6 cm (SAG x AP x TRV). The kidney is normal in size, contour, and echogenicity. Renal cortical thickness is normal. No calculi or focal parenchymal lesions. No hydronephrosis. The urinary bladder was full. Ureteral jets were not identified during the course of the study. The prostate gland was not well visualized. Prevoid bladder volume was 156 mL with postvoid bladder volume being 36 mL. US/US renal BI IMPRESSION: 1. Small postvoid residual. 2. Ureteral jets not identified during this study; however, no hydronephrosis is evident.
== END 2022-04-04 12:16 | disposition home or self-care (01) ==
LOC: HO.US 12:15
PROVIDERS: PCP Internal Medicine; Visit Provider Urology
DX: N40.1 Benign prostatic hyperplasia with lower urinary tract symptoms (principal); R32 Unspecified urinary incontinence
CPT/HCPCS: 76775

== ENCOUNTER 2022-04-09 07:31 | Outpatient (REF) | payer OTHER, SELFPAY ==
--- NOTE | ~2022-04-09 | US_ITS ---
EXAMINATION: US LOWER EXTREMITY VENOUS (REFLUX EXAM), BILATERAL CLINICAL INDICATION: Varicose veins COMPARISON: None. TECHNIQUE: Color flow triplex imaging and compression Doppler was performed to evaluate both the deep and the superficial systems bilaterally. To evaluate the superficial system, the examination was performed in the upright position. Color-flow Doppler ultrasound and compression ultrasound were utilized. In addition, maneuvers were utilized to demonstrate reflux. FINDINGS: 1. DEEP VENOUS ULTRASOUND OF THE RIGHT LOWER EXTREMITY: Common Femoral Vein: Compressible, normal respiratory variation and augmented flow. Femoral Vein: Compressible, normal color flow and augmentation. Popliteal Vein: Compressible, normal augmentation. Deep Reflux: There is no evidence of reflux in the deep system in either the common femoral vein or the popliteal vein. There is no evidence of a Araujo's cyst. 2. SUPERFICIAL ULTRASOUND WITH DOPPLER OF RIGHT LOWER EXTREMITY: GREAT SAPHENOUS VEIN: Saphenofemoral Junction: 0.7 cm; Reflux: 0 ms Proximal Thigh: 0.5 cm; Reflux: 0 ms Mid Thigh: 0.3 cm; Reflux: 0 ms Above Knee: 0.3 cm; Reflux: 0 ms At Knee: 0.2 cm; Reflux: 0 ms Below Knee: 0.2 cm; Reflux: 0 ms Mid Calf: 0.1 cm; Reflux: 0 ms Ankle: Not visualized DUPLICATED MEDIAL GREAT SAPHENOUS VEIN: Diameter: None Imaged Reflux: NA DUPLICATED LATERAL GREAT SAPHENOUS VEIN: Diameter: None Imaged Reflux: NA SMALL SAPHENOUS VEIN: Proximal: 0.2 cm; Reflux: 0 ms Distal: 0.2 cm; Reflux: 0 ms VEIN OF GIACOMINI: None Imaged. PERFORATORS: Location: Thigh and calf Size: 0.1-0.3 cm Reflux: NA VARICOSITIES: Location: Multiple varicosities in the proximal thigh Size: 0.3-0.4 cm Reflux: NA 3. DEEP VENOUS ULTRASOUND OF THE LEFT LOWER EXTREMITY: Common Femoral Vein: Compressible, normal respiratory variation and augmented flow. Femoral Vein: Compressible, normal color flow and augmentation. Popliteal Vein: Compressible, normal augmentation. Deep Reflux: There is no evidence of reflux in the deep system in either the common femoral vein or the popliteal vein. There is no evidence of a Araujo's cyst. 4. SUPERFICIAL ULTRASOUND WITH DOPPLER OF LEFT LOWER EXTREMITY: GREAT SAPHENOUS VEIN: Saphenofemoral Junction: 1.2 cm; Reflux: 0 ms Proximal Thigh: 0.4 cm; Reflux: 620 ms Mid Thigh: Not visualized Above Knee: 0.3 cm; Reflux: 0 ms At Knee: 0.2 cm; Reflux: 0 ms Below Knee: Not visualized Mid Calf: 0.2 cm; Reflux: 0 ms Ankle: 0.2 cm; Reflux: 0 ms DUPLICATED MEDIAL GREAT SAPHENOUS VEIN: Diameter: None Imaged Reflux: NA DUPLICATED LATERAL GREAT SAPHENOUS VEIN: Diameter: None Imaged Reflux: NA SMALL SAPHENOUS VEIN: Proximal: 0.3 cm; Reflux: 0 ms Distal: 0.2 cm; Reflux: 0 ms VEIN OF GIACOMINI: None Imaged. PERFORATORS: Location: Multiple perforators in the mid calf and proximal thigh Size: 0.2 cm Reflux: NA VARICOSITIES: Location: None Imaged Size: NA Reflux: NA US/US venous duplex LE BI IMPRESSION: 1. Left great saphenous venous insufficiency proximally. 2. Multiple varicosities in the proximal right thigh and multiple bilateral perforators. 3. No reflux in the bilateral small saphenous veins.
== END 2022-04-09 07:32 | disposition home or self-care (01) ==
LOC: HO.US 07:31
PROVIDERS: Visit Provider Surgery Vascular Surgery
DX: I83.893 Varicose veins of bilateral lower extremities with other complications (principal)
CPT/HCPCS: 93970

== ENCOUNTER → 2022-04-10 09:05 | Outpatient (BNVA) | payer OTHER, SELFPAY | PROVIDERS: PCP Internal Medicine; Visit Provider Dietitian, Registered | DX: E11.9 Type 2 diabetes mellitus without complications (principal) | CPT/HCPCS: 97803 ==

== ENCOUNTER → 2022-04-25 09:38 | Outpatient (BNVA) | payer OTHER, SELFPAY | PROVIDERS: PCP Internal Medicine; Visit Provider Urology | DX: N40.1 Benign prostatic hyperplasia with lower urinary tract symptoms (principal); R35.0 Frequency of micturition; N52.9 Male erectile dysfunction, unspecified | CPT/HCPCS: 52000; 99212 ==

== ENCOUNTER → 2022-06-12 11:40 | Outpatient (BNVA) | payer OTHER, SELFPAY | PROVIDERS: PCP Internal Medicine; Visit Provider Internal Medicine Endocrinology, Diabetes & Metabolism | DX: E11.42 Type 2 diabetes mellitus with diabetic polyneuropathy (principal); E11.49 Type 2 diabetes mellitus with other diabetic neurological complication; Z79.4 Long term (current) use of insulin | CPT/HCPCS: 82947; 99212 ==

== ENCOUNTER → 2022-06-25 11:08 | Outpatient (BNVA) | payer OTHER, SELFPAY | PROVIDERS: PCP Internal Medicine; Visit Provider Surgery Vascular Surgery | DX: I83.11 Varicose veins of right lower extremity with inflammation (principal) | CPT/HCPCS: 99212 ==

== ENCOUNTER 2022-07-04 23:29 | Emergency (ER) | payer OTHER, SELFPAY ==
--- NOTE | ~2022-07-04 | CT_ITS ---
EXAMINATION: CT ABDOMEN AND PELVIS WITHOUT CONTRAST CLINICAL INFORMATION: Left lower quadrant pain. Question diverticulitis. COMPARISON: None available. TECHNIQUE: Nail Tech image of the abdomen and pelvis performed. No additional imaging. Patient would not lie flat. Terminated examination. This CT examination was performed using dose optimization techniques as appropriate, variously including the following: *Automated exposure control *Adjustment of mA and/or kV according to patient size (this includes techniques or standardized protocols for targeted exams where dose is matched to indication/reason for exam; i.e. extremities or head) *Use of iterative reconstruction technique DLP: 5 mGy-cm FINDINGS: On the manager presentation image there is a nonobstructive bowel gas pattern. Degenerative changes of the hips and spine. CT/CT abdomen pelvis wo IV con IMPRESSION: Examination not performed due to patient tolerance.
[2022-07-04 23:31] VITALS: BP 158/80; PULSE 91; RESP 20; TEMP 36.4; O2SAT 97; BMI 41.7
[2022-07-05 00:18] LABS: MANUAL DIFF FLAG NO
[2022-07-05 00:19] LABS: Basophils Percent Auto 0.2 % (0-2); Eosinophils Percent Auto 0.3 % (0-4); Hemoglobin 13.1 g/dl (14.0-18.0); Imm Gran Abs Auto 0.03 X10*3/uL (0.00-0.03); Imm Gran Pct Auto 0.3 % (0.0-0.4); Lymphocytes Absolute Auto 2.4 X10*3/uL (1.2-4.9); Lymphocytes Percent Auto 19.8 % (20-40); Mean Corpuscular HGB Conc 33.6 g/dl (31.0-36.0); Mean Corpuscular Hemoglobin 30.3 pg (27.0-33.0); Mean Corpuscular Volume 90.1 fL (80.0-98.0); Mean Platelet Volume 12.5 fL (9.4-12.4); Monocytes Absolute Auto 0.8 X10*3/uL (0.1-1.2); Monocytes Percent Auto 6.7 % (2-11); Neutrophils Absolute Auto 8.7 x10*3/uL (2.0-8.3); Neutrophils Percent Auto 72.7 % (45-73); Platelet Count 193 X10*3/uL (160-400); Red Blood Count 4.33 X10*6/uL (4.60-5.80); White Blood Count 11.9 X10*3/uL (4.8-10.8)
[2022-07-05 00:28] VITALS: BP 135/84; PULSE 83; RESP 16; TEMP 36.7; O2SAT 96
--- NOTE | 2022-07-05 00:29 | PC.NURSE ---
Pt. on residential monitor at this time
[2022-07-05 01:07] LABS: Alanine Aminotransferase 26 U/L (0-40); Albumin Level 4.1 g/dL (3.5-5.0); Alkaline Phosphatase 134 U/L (39-117); Anion Gap 15 (12-20); Aspartate Amino Transferase 20 U/L (5-37); Bilirubin Direct 0.4 mg/dL (0.0-0.5); Bilirubin Total 1.2 mg/dL (0.0-1.0); Blood Urea Nitrogen 20 mg/dL (9-16); Calcium 9.5 mg/dL (8.4-10.2); Carbon Dioxide 27 mmol/L (22-29); Chloride 101 mmol/L (96-108); Creatinine Clr Calc Pharmacy 62.8; Estimated Glomerular Filt Rate 57; Glucose Random 305 mg/dL (60-115); Lipase 14 U/L (8-78); Potassium 4.5 mmol/L (3.3-5.1); Sodium 138 mmol/L (135-145); Total Protein 7.6 g/dL (6.5-8.0)
--- NOTE | 2022-07-05 01:21 | ED.ABDPAIN ---
HPI - Abdominal Pain General Chief Complaint: Abdominal Pain Stated Complaint: Abd pain Time Seen by Provider: 07/05/22 01:21 Source: patient Mode of arrival: ambulatory Limitations: no limitations History of Present Illness HPI narrative: Patient been complaining of lower abdominal 2 days more on the left side than the right , unable to eat much food no fever no chills no abdominal distention no urinary symptom no fever no chills no blood in the stool no history of similar pain in the past Related Data Home Medications Medication Instructions Recorded Confirmed furosemide 20 mg tablet 20 mg PO DAILY PRN swelling 05/09/20 06/12/22 blood-glucose meter (OneTouch #1 ea 06/12/22 06/12/22 Ultra2 Meter) Previous Rx's Medication Instructions Recorded fluticasone propionate 110 2 puff inhalation BID #12 grams 02/10/20 mcg/actuation HFA aerosol inhaler (Flovent HFA) docusate sodium 100 mg capsule 100 mg PO DAILY PRN constipation 07/17/20 30 days #30 caps SHOWER CHAIR #1 ea 10/05/20 SHOWER CHAIR #1 ea 01/10/21 fluticasone propionate 50 1 spray intranasal DAILY #16 grams 03/16/21 mcg/actuation nasal spray,suspension insulin syr/ndl U100 half gareth 0.5 #100 ea 05/14/21 mL 30 gauge x 5/16 polyethylene glycol 3350 17 17 g PO DAILY 30 days #510 grams 06/26/21 gram/dose oral powder (Miralax) cholecalciferol (vitamin D3) 50 50 mcg PO DAILY 90 days #90 caps 09/07/21 mcg (2,000 unit) capsule nut.tx.gluc.intol,lac-free,soy See Rx Instructions .Route 09/11/21 (Glucerna Hunger Smart oral liquid) .COMPLEX 30 days #60 bottles tamsulosin 0.4 mg capsule 0.4 mg PO DAILY 30 days #30 caps 09/12/21 clotrimazole-betamethasone 1 1 appl topical BID 15 days #45 11/26/21 %-0.05 % topical cream grams aspirin 81 mg tablet,delayed 81 mg PO DAILY #90 tabs 01/14/22 release insulin glargine 100 unit/mL (3 80 unit (0.8 mL) subcut BID 30 01/14/22 mL) subcutaneous pen (Lantus days #48 mL Solostar U-100 Insulin) dulaglutide 1.5 mg/0.5 mL 1.5 mg (0.5 mL) subcut QWEEK #2 mL 01/23/22 subcutaneous pen injector (Trulicuc health) atorvastatin 80 mg tablet 80 mg PO DAILY #90 tabs 02/19/22 duloxetine 30 mg capsule,delayed 30 mg PO DAILY 30 days #30 caps 02/19/22 release blood-glucose meter (Flooveduch #1 ea 03/12/22 Ultra2 Meter kit) insulin lispro 100 unit/mL 35 unit (0.35 mL) subcut BID #15 mL 03/12/22 subcutaneous pen (Humalog KwikPen (U-100) Insulin) paroxetine HCl 40 mg tablet 40 mg PO DAILY #90 tabs 03/12/22 pen needle, diabetic 31 gauge x #100 ea 03/12/2207/23 (Lite Touch Insulin Pen Commerce) lancets 33 gauge (GLGTouch Delica #100 ea 03/13/22 Lancets) gabapentin 400 mg capsule 800 mg PO BID #120 caps 04/22/22 cyanocobalamin (vitamin B-12) 1,000 mcg PO DAILY 90 days #90 tabs 04/25/22 1,000 mcg tablet metoprolol tartrate 50 mg tablet 50 mg PO BID #180 tabs 04/25/22 oxybutynin chloride 10 mg 10 mg PO DAILY #90 tabs 04/25/22 tablet,extended release 24 hr lisinopril 10 mg tablet 10 mg PO DAILY #90 tabs 05/21/22 blood sugar diagnostic 1 strip miscellaneous TID #100 05/31/22 strips omeprazole 40 mg capsule,delayed 40 mg PO DAILY 30 days #30 caps 06/10/22 release flash glucose scanning reader #1 ea 06/12/22 (FreeStyle I[place] 2 [place]) flash glucose sensor ([employer]Style #2 ea 06/12/22 Iwona 2 Sensor kit) albuterol sulfate 90 mcg/actuation 2 puff PO Q4-6H PRN for wheezing 07/02/22 aerosol inhaler #8.5 grams amoxicillin 875 mg-potassium 1 tab PO BID #20 tabs 07/05/22 clavulanate 125 mg tablet dicyclomine 20 mg tablet 20 mg PO QID PRN abdominal pain 07/05/22 #20 tabs Allergies Allergy/AdvReac Type Severity Reaction Status Date / Time hydromorphone [Dilaudid] AdvReac Unknown confusion Verified 07/04/22 23:36 From DILAUDID AdvReac Severe CONFUSION/H Uncoded 06/10/22 09:56 ALLUCIATION S From PERCOCET AdvReac Intermediate AGITATION Uncoded 06/10/22 09:56 Review of Systems Review of Systems Yes all other systems are reviewed and are negative PMFSH Past Medical History Medical History Benign essential hypertension Benign prostatic hyperplasia with urinary frequency Constipation Coronary artery disease Diabetes mellitus Diabetic polyneuropathy Hyperkalemia Intertrigo Major depressive disorder, recurrent Obesity (BMI 30-39.9) Obstructive sleep apnea Pure hypercholesterolemia Vitamin B12 deficiency Vitamin D deficiency Surgical History History of prostate surgery (~12/04/10) History of quadruple bypass (~2005) Hx of cataract extraction (~2011) Hx of cholecystectomy (~2007) Hx of cystoscopy Family History Family History Father Lung cancer Mother Diabetes Hypertension Stomach cancer Social History Social History Household Members: None Housing: Apartment Do you presently have visiting nurse or other home services: No (offered VNA in past and refused) Alcohol intake: never Patient Tobacco Use Status: Former Tobacco user Smoked in Last 30 Days: No e-Cigarette/Vaping Use: Never Used Second Hand Smoke Exposure: Yes Use of substances other than those prescribed or required for medical reasons: No Advance Directives: Yes Advance Directives Information Provided: Yes Advance Directives on File: No Advance Directives Date on File: 05/09/20 service: No Current occupational status: disabled Cognitive needs: Yes (cane) Hearing needs: No Vision needs: Yes Physical Exam ED Vital Signs: Vital Signs - 24 hr 07/04/22 23:31 07/05/22 00:28 07/05/22 01:41 Temperature 97.6 F 98.0 F 97.1 F Pulse Rate 91 83 83 Respiratory Rate 20 16 17 Blood Pressure 158/80 H 135/84 150/60 H Pulse Oximetry 97 96 96 Oxygen Delivery Method Room Air Room Air BMI result Body Mass Index 41.7 Appearance: Alert. Oriented X3. No acute distress. Eyes: No pallor/icterus ENT: Pharynx normal. Oral Mucosa moist Neck: Normal inspection. Neck supple. CVS: Normal heart rate and rhythm. Pulses normal. Respiratory: No respiratory distress. Equal air entry bilateral, no wheezing/rales/rhonchi Abdomen: Soft , deep tenderness left lower quadrant no rebound tenderness or guarding. Bowel sounds are present, no mass palpable, no CVA tenderness Skin: Skin warm and dry. Normal skin color. Normal skin turgor. Extremities: No lower extremity edema. No calf tenderness Neuro: Oriented X 3. No motor deficit. t Medical Decision Making Medical Decision Making [facility] Narrative: Patient has abdominal pain with stable labs unable to get CT scan as patient refusing to lay flat in the CT scan . abdomen is benign patient able to take p.o. fluids labs showed slight leukocytosis will give Augmentin for possible uncomplicated diverticulitis advised to report to the ER if pain gets worse Lab Data [facility] Lab Attestation statement: I reviewed the patient's lab results. 07/05/22 00:12 07/05/22 00:12 Labs: Lab Results 07/05/22 07/05/22 07/05/22 Range/Units 00:12 00:12 01:39 WBC 11.9 H (4.8-10.8) X10*3/uL RBC 4.33 L (4.60-5.80) X10*6/uL Hgb 13.1 L (14.0-18.0) g/dl Hct 39.0 L (42.0-52.0) % MCV 90.1 (80.0-98.0) fL MCH 30.3 (27.0-33.0) pg MCHC 33.6 (31.0-36.0) g/dl RDW 12.0 (11.0-16.0) % Plt Count 193 (160-400) X10*3/uL MPV 12.5 H (9.4-12.4) fL Immature Gran % (Auto) 0.3 (0.0-0.4) % Neut % (Auto) 72.7 (45-73) % Lymph % (Auto) 19.8 L (20-40) % Coles % (Auto) 6.7 (2-11) % Eos % (Auto) 0.3 (0-4) % Baso % (Auto) 0.2 (0-2) % Lymph # (Auto) 2.4 (1.2-4.9) X10*3/uL [place] # (Auto) 0.8 (0.1-1.2) X10*3/uL Eos # (Auto) 0.0 (0.0-0.4) X10*3/uL Baso # (Auto) 0.0 (0.0-0.2) X10*3/uL Abs Immat Gran (auto) 0.03 (0.00-0.03) X10*3/uL Absolute Neuts (auto) 8.7 H (2.0-8.3) x10*3/uL Absolute Nucleated RBC 0.000 (0.0-0.012) X10*3/uL Nucleated RBC % (auto) 0.0 (0.0-0.2) /100WBC Sodium 138 (135-145) mmol/L Potassium 4.5 (3.3-5.1) mmol/L Chloride 101 (96-108) mmol/L Carbon Dioxide 27 (22-29) mmol/L Anion Gap 15 (12-20) BUN 20 H (9-16) mg/dL Creatinine 1.25 (0.5-1.4) mg/dL Estim Creat Clear Calc 62.8 Estimated GFR 57 Random Glucose 305 H (60-115) mg/dL Calcium 9.5 (8.4-10.2) mg/dL Total Bilirubin 1.2 H (0.0-1.0) mg/dL Direct Bilirubin 0.4 (0.0-0.5) mg/dL AST 20 (5-37) U/L ALT 26 (0-40) U/L Alkaline Phosphatase 134 H (39-117) U/L Total Protein 7.6 (6.5-8.0) g/dL Albumin 4.1 (3.5-5.0) g/dL Lipase 14 (8-78) U/L Urine Color Dark Yellow Urine Appearance Clear Urine pH 5.5 (5.0-9.0) Ur Specific [place] >= 1.030 H (1.005-1.025) Urine Protein 100 (2+) H (Neg-Trace) mg/dL Urine Glucose (UA) 100 H (Negative) mg/dL Urine Ketones 15 (Negative) mg/dL Urine Blood Negative (Negative) Urine Nitrite Negative (Negative) Ur Leukocyte Esterase Trace H (Negative) Urine RBC 0-2 (0-2) /HPF Urine WBC 0-5 (0-5) /HPF Ur Squamous Epith Cells 0-2 (0-2) /HPF Urine Bacteria None Seen (None Seen) Hyaline Casts 0-2 (0-2) /LPF Medications Administered Discontinued Medications Generic Name Dose Route Start Last Admin Trade Name Freq PRN Reason Stop Dose Admin Amoxicillin/Clavulanate Potassium 875 mg 07/05/22 04:25 07/05/22 04:51 Amoxicillin/Potassium Clav 875 Mg Tablet PO 07/05/22 04:26 875 mg ONCE ONE Administration Dicyclomine HCl 20 mg 07/05/22 04:25 07/05/22 04:52 Dicyclomine Hcl 10 Mg Capsule PO 07/05/22 04:26 20 mg ONCE ONE Administration Lorazepam 2 mg 07/05/22 02:33 07/05/22 02:42 Lorazepam 1 Mg Tablet PO 07/05/22 02:34 2 mg ONCE ONE Administration Discharge Plan Discharge Clinical Impression: Abdominal pain Patient Disposition: Home, Self-Care Instructions: Abdominal Pain (ED) Additional Instructions: Cause of the abdominal pain is not very clear possibly might have diverticulitis take antibiotic as prescribed Clear fluids advanced as tolerated Follow with PCP if not better La causa del dolor abdominal no est? muy nain, posiblemente tenga diverticulitis, tome el antibi?cathy seg?n lo prescrito. L?quidos kenneth avanzados seg?n tolerancia Siga con PCP si no mejor Prescriptions: New dicyclomine 20 mg tablet 20 mg PO QID PRN (Reason: abdominal pain) Qty: 20 0RF amoxicillin-pot clavulanate 875-125 mg tablet 1 tab PO BID Qty: 20 0RF No Action Flovent HFA 110 mcg/actuation HFA aerosol inhaler 2 puff inhalation BID Qty: 12 2RF docusate sodium 100 mg capsule 100 mg PO DAILY PRN (Reason: constipation) 30 Days Qty: 30 3RF Rx Instructions: 1 capsule as needed Orally Once a day fluticasone propionate 50 mcg/actuation spray,suspension 1 spray intranasal DAILY Qty: 16 2RF polyethylene glycol 3350 [Miralax] 17 gram/dose powder 17 g PO DAILY 30 Days Qty: 510 3RF Glucerna Hunger Smart Liquid See Rx Instructions .ROUTE .COMPLEX 30 Days Qty: 60 3RF Rx Instructions: Take contents of 1 bottle orally twice a day; tamsulosin 0.4 mg capsule 0.4 mg PO DAILY 30 Days Qty: 30 3RF clotrimazole-betamethasone 1-0.05 % cream 1 appl topical BID 15 Days Qty: 45 0RF aspirin 81 mg tablet,delayed release (DR/EC) 81 mg PO DAILY Qty: 90 3RF insulin glargine [Lantus Solostar U-100 Insulin] 100 unit/mL (3 mL) insulin pen 80 unit subcut BID 30 Days Qty: 48 3RF atorvastatin 80 mg tablet 80 mg PO DAILY Qty: 90 1RF duloxetine 30 mg capsule,delayed release(DR/EC) 30 mg PO DAILY 30 Days Qty: 30 3RF (DME) blood-glucose meter [[employer] Ultra2 Meter] Kit See Rx Instructions .Route Qty: 1 0RF Rx Instructions: As directed- To test blood sugar three times daily insulin lispro [Humalog KwikPen Insulin] 100 unit/mL insulin pen 35 unit subcut BID Qty: 15 3RF paroxetine HCl 40 mg tablet 40 mg PO DAILY Qty: 90 0RF (DME) pen needle, diabetic [Lite Touch Insulin Pen [employer]] 31 gauge x 5/16 needle See Rx Instructions .Route Qty: 100 12RF Rx Instructions: Use 3 times daily (DME) lancets [OneTouch Delica Lancets] 33 gauge misc See Rx Instructions .Route Qty: 100 12RF Rx Instructions: As directed 3 times a day gabapentin 400 mg capsule 800 mg PO BID Qty: 120 3RF Rx Instructions: take 2 capsules orally twice a day cyanocobalamin (vitamin B-12) 1,000 mcg tablet 1,000 mcg PO DAILY 90 Days Qty: 90 3RF metoprolol tartrate 50 mg tablet 50 mg PO BID Qty: 180 1RF lisinopril 10 mg tablet 10 mg PO DAILY Qty: 90 0RF blood sugar diagnostic Strip 1 strip miscellaneous TID Qty: 100 3RF albuterol sulfate 90 mcg/actuation HFA aerosol inhaler 2 puff PO Q4-6H PRN (Reason: for wheezing) Qty: 8.5 2RF furosemide 20 mg tablet 20 mg PO DAILY PRN (Reason: swelling) (DME) SHOWER CHAIR See Rx Instructions .Route .MEDSUPPLY Qty: 1 0RF Rx Instructions: As directed ([facility] [place]) SHOWER CHAIR See Rx Instructions .Route .MEDSUPPLY Qty: 1 0RF Rx Instructions: As directed omeprazole 40 mg capsule,delayed release(DR/EC) 40 mg PO DAILY 30 Days Qty: 30 3RF (DME) insulin syr/ndl U100 half gareth 0.5 mL 30 gauge x 5/16 syringe See Rx Instructions .Route Qty: 100 12RF Rx Instructions: Use 4 times daily cholecalciferol (vitamin D3) 50 mcg (2,000 unit) capsule 50 mcg PO DAILY 90 Days Qty: 90 3RF oxybutynin chloride 10 mg tablet extended release 24hr 10 mg PO DAILY Qty: 90 0RF Trulicity 1.5 mg/0.5 mL pen injector 1.5 mg subcut QWEEK Qty: 2 5RF ([facility] [place]) blood-glucose meter [OneTouch Ultra2 Meter] Misc See Rx Instructions .ROUTE TID Qty: 1 Rx Instructions: As directed ([facility] [place]) FreeStyle Iwona 2 Sensor Kit See Rx Instructions .Route Qty: 2 5RF Rx Instructions: As directed change every 14 days ([facility] [place]) FreeStyle Iwona 2 [place] Misc See Rx Instructions .Route Qty: 1 0RF Rx Instructions: As directed Print Language: [place]an
[2022-07-05 01:41] VITALS: BP 150/60; PULSE 83; RESP 17; TEMP 36.2; O2SAT 96
[2022-07-05 01:46] LABS: Appearance Urine Clear; Color Urine Dark Yellow; Glucose Urine UA 100 mg/dL (Negative); Leukocyte Esterase Urine Trace (Negative); Nitrite Urine Negative (Negative); PH 5.5 (5.0-9.0); Specific Gravity - Urine >= 1.030 (1.005-1.025); UMIC TRIGGER UACC YES; Urine Blood Negative (Negative); Urine Ketones 15 mg/dL (Negative); Urine Protein 100 (2+) mg/dL (Neg-Trace)
[2022-07-05 01:48] LABS: Bacteria Urine None Seen (None Seen); Hyaline Casts Urine 0-2 /LPF (0-2); RBC Urine 0-2 /HPF (0-2); Squamous Epithelial Cell Urine 0-2 /HPF (0-2); WBC Urine 0-5 /HPF (0-5)
[2022-07-05] MEDS: LORazepam 1 MG TABLET 2 MG PO (02:42)
[2022-07-05] MEDS: Amoxicillin/Potassium Clav 875 MG TABLET PO (04:51)
[2022-07-05] MEDS: Dicyclomine HCl 10 MG CAPSULE 20 MG PO (04:52)
--- NOTE | 2022-07-05 04:53 | PC.NURSE ---
pt a&o, no sob or chest pain, pt sitting upright in chair, medicated per Mar. No sign of distress
== END 2022-07-05 05:12 | disposition home or self-care (01) ==
PROVIDERS: Emergency Provider Internal Medicine; PCP Internal Medicine
DX: R10.32 Left lower quadrant pain (principal); E11.9 Type 2 diabetes mellitus without complications; I10 Essential (primary) hypertension; E78.00 Pure hypercholesterolemia, unspecified; Z79.4 Long term (current) use of insulin; Z79.899 Other long term (current) drug therapy; Z79.82 Long term (current) use of aspirin; Z79.02 Long term (current) use of antithrombotics/antiplatelets; Z87.891 Personal history of nicotine dependence
CPT/HCPCS: 36415; 74176; 80048; 80076; 81001; 83690; 85025; 99284

== ENCOUNTER 2022-07-06 00:55 | Emergency (ER) | payer OTHER, SELFPAY ==
--- NOTE | ~2022-07-06 | XR_ITS ---
EXAMINATION: XR ABDOMEN KUB CLINICAL INDICATION: Rule out small bowel obstruction, perforation COMPARISON: None available. TECHNIQUE: AP view of the abdomen. FINDINGS: Nonobstructive bowel gas pattern. No dilated loops of bowel. Gas and stool throughout the colon with moderate colonic stool burden. No free air on the upright view. No air-fluid levels. The lung bases are clear. Degenerative changes of the spine. Right upper quadrant surgical clips. XR/XR KUB IMPRESSION: Nonobstructive bowel gas pattern. Moderate colonic stool burden.
[2022-07-06 00:58] VITALS: BP 118/61; PULSE 84; RESP 20; TEMP 36.4; O2SAT 98; BMI 3887.0
[2022-07-06 01:21] VITALS: BP 145/74; PULSE 82; RESP 16; TEMP 36.4; O2SAT 98
--- NOTE | 2022-07-06 01:22 | MHC.EDTECH ---
this pct assumed care of pt around 0100 ,vitals sign taken pt blood drawn and sent to lab .
[2022-07-06 01:24] LABS: MANUAL DIFF FLAG NO
--- NOTE | 2022-07-06 01:24 | MHC.EDTECH ---
warm blanket given .
[2022-07-06 01:25] LABS: Basophils Percent Auto 0.1 % (0-2); Eosinophils Absolute Auto 0.1 X10*3/uL (0.0-0.4); Eosinophils Percent Auto 0.5 % (0-4); Hematocrit 37.2 % (42.0-52.0); Hemoglobin 12.5 g/dl (14.0-18.0); Imm Gran Abs Auto 0.03 X10*3/uL (0.00-0.03); Imm Gran Pct Auto 0.3 % (0.0-0.4); Lymphocytes Absolute Auto 2.2 X10*3/uL (1.2-4.9); Lymphocytes Percent Auto 20.5 % (20-40); Mean Corpuscular HGB Conc 33.6 g/dl (31.0-36.0); Mean Corpuscular Hemoglobin 30.1 pg (27.0-33.0); Mean Corpuscular Volume 89.6 fL (80.0-98.0); Mean Platelet Volume 12.4 fL (9.4-12.4); Monocytes Absolute Auto 0.8 X10*3/uL (0.1-1.2); Monocytes Percent Auto 7.4 % (2-11); Neutrophils Absolute Auto 7.7 x10*3/uL (2.0-8.3); Neutrophils Percent Auto 71.2 % (45-73); Platelet Count 184 X10*3/uL (160-400); Red Blood Count 4.15 X10*6/uL (4.60-5.80); Red Cell Distribution Width 12.1 % (11.0-16.0); White Blood Count 10.8 X10*3/uL (4.8-10.8)
--- NOTE | 2022-07-06 01:35 | ECG_ITS ---
Test Reason : ABD PAIN Blood Pressure : / mmHG Vent. Rate : 076 BPM Atrial Rate : 076 BPM P-R Int : 234 ms QRS Dur : 094 ms QT Int : 390 ms P-R-T Axes : 048 -28 193 degrees QTc Int : 438 ms Sinus rhythm with 1st degree A-V block Minimal voltage criteria for LVH, may be normal variant ( R in aVL ) Septal infarct , age undetermined ST & T wave abnormality, consider lateral ischemia Abnormal ECG When compared with ECG of 27-APR-2019 14:57, Significant changes have occurred Referred By: Nuria Russell Electronically Signed By:Silverio Page
--- NOTE | 2022-07-06 01:36 | ED.ABDPAIN ---
HPI - Abdominal Pain General Chief Complaint: Abdominal Pain Stated Complaint: Abdominal Pain Time Seen by Provider: 07/06/22 01:26 Source: patient Mode of arrival: ambulatory Limitations: no limitations History of Present Illness HPI narrative: Patient comes to the emergency room complaining of nausea and vomiting. Patient was seen here yesterday, diagnosed with possible diverticulitis. Patient states that he is unable to lay flat on the CT scan, therefore yesterday's CT scan was not obtained. Patient denies chest pain or shortness of breath Related Data Home Medications Medication Instructions Recorded Confirmed furosemide 20 mg tablet 20 mg PO DAILY PRN swelling 05/09/20 06/12/22 blood-glucose meter (OneTouch #1 ea 06/12/22 06/12/22 Ultra2 Meter) Previous Rx's Medication Instructions Recorded fluticasone propionate 110 2 puff inhalation BID #12 grams 02/10/20 mcg/actuation HFA aerosol inhaler (Flovent HFA) docusate sodium 100 mg capsule 100 mg PO DAILY PRN constipation 07/17/20 30 days #30 caps SHOWER CHAIR #1 ea 10/05/20 SHOWER CHAIR #1 ea 01/10/21 fluticasone propionate 50 1 spray intranasal DAILY #16 grams 03/16/21 mcg/actuation nasal spray,suspension insulin syr/ndl U100 half gareth 0.5 #100 ea 05/14/21 mL 30 gauge x 5/16 polyethylene glycol 3350 17 17 g PO DAILY 30 days #510 grams 06/26/21 gram/dose oral powder (Miralax) cholecalciferol (vitamin D3) 50 50 mcg PO DAILY 90 days #90 caps 09/07/21 mcg (2,000 unit) capsule nut.tx.gluc.intol,lac-free,soy See Rx Instructions .Route 09/11/21 (Glucerna Hunger Smart oral liquid) .COMPLEX 30 days #60 bottles tamsulosin 0.4 mg capsule 0.4 mg PO DAILY 30 days #30 caps 09/12/21 clotrimazole-betamethasone 1 1 appl topical BID 15 days #45 11/26/21 %-0.05 % topical cream grams aspirin 81 mg tablet,delayed 81 mg PO DAILY #90 tabs 01/14/22 release insulin glargine 100 unit/mL (3 80 unit (0.8 mL) subcut BID 30 01/14/22 mL) subcutaneous pen (Lantus days #48 mL Solostar U-100 Insulin) dulaglutide 1.5 mg/0.5 mL 1.5 mg (0.5 mL) subcut QWEEK #2 mL 01/23/22 subcutaneous pen injector (Trulicity) atorvastatin 80 mg tablet 80 mg PO DAILY #90 tabs 02/19/22 duloxetine 30 mg capsule,delayed 30 mg PO DAILY 30 days #30 caps 02/19/22 release blood-glucose meter (pSiFlow Technologyuch #1 ea 03/12/22 Ultra2 Meter kit) insulin lispro 100 unit/mL 35 unit (0.35 mL) subcut BID #15 mL 03/12/22 subcutaneous pen (Humalog KwikPen (U-100) Insulin) paroxetine HCl 40 mg tablet 40 mg PO DAILY #90 tabs 03/12/22 pen needle, diabetic 31 gauge x #100 ea 03/12/2207/23 (Lite Touch Insulin Pen Rocklin) lancets 33 gauge (LeapforceTouch Delica #100 ea 03/13/22 Lancets) gabapentin 400 mg capsule 800 mg PO BID #120 caps 04/22/22 cyanocobalamin (vitamin B-12) 1,000 mcg PO DAILY 90 days #90 tabs 04/25/22 1,000 mcg tablet metoprolol tartrate 50 mg tablet 50 mg PO BID #180 tabs 04/25/22 oxybutynin chloride 10 mg 10 mg PO DAILY #90 tabs 04/25/22 tablet,extended release 24 hr lisinopril 10 mg tablet 10 mg PO DAILY #90 tabs 05/21/22 blood sugar diagnostic 1 strip miscellaneous TID #100 05/31/22 strips omeprazole 40 mg capsule,delayed 40 mg PO DAILY 30 days #30 caps 06/10/22 release flash glucose scanning reader #1 ea 06/12/22 (FreeStyle Iwona 2 Beggs) flash glucose sensor (CaseMetrixyle #2 ea 06/12/22 Iwona 2 Sensor kit) albuterol sulfate 90 mcg/actuation 2 puff PO Q4-6H PRN for wheezing 07/02/22 aerosol inhaler #8.5 grams amoxicillin 875 mg-potassium 1 tab PO BID #20 tabs 07/05/22 clavulanate 125 mg tablet dicyclomine 20 mg tablet 20 mg PO QID PRN abdominal pain 07/05/22 #20 tabs ondansetron HCl 4 mg tablet 4 mg PO Q6H PRN nausea and 07/06/22 vomiting #14 tabs Allergies Allergy/AdvReac Type Severity Reaction Status Date / Time hydromorphone [Dilaudid] AdvReac Unknown confusion Verified 07/04/22 23:36 From DILAUDID AdvReac Severe CONFUSION/H Uncoded 06/10/22 09:56 ALLUCIATION S From PERCOCET AdvReac Intermediate AGITATION Uncoded 06/10/22 09:56 Review of Systems Review of Systems Constitutional : No Weight loss, No Fever, No Chills, No Night Sweats, No Fatigue, No Malaise ENT/Mouth : No Hearing loss, No Ear Pain, No Nasal Congestion, No Sinus Pain, No Hoarseness, No sore throat, No Rhinorrhea, No Swallowing Difficulty Eyes: No Eye Pain, No Swelling, No Redness, No Foreign Body, No Discharge, No Vision Changes Cardiovascular : No Chest Pain, No SOB, No Dyspnea on Exertion, No Orthopnea, No Edema, No Palpitations Respiratory : No Cough, No Sputum, No Wheezing, No Smoke Exposure, No Dyspnea Gastrointestinal : Complaining of nausea vomiting, No Diarrhea, No Constipation, complaining of diffuse abdominal pain Genitourinary : no irregular bleeding, No Dysuria, No Urinary Frequency, No Hematuria, No Urinary Incontinence, No Urgency, No Flank Pain, No Urinary Flow Changes, No Hesitancy Musculoskeletal : No joint pain, No Myalgias, No Joint Swelling Skin : No Skin Lesions, No rash Neuro : No Weakness, No Numbness, No Paresthesias, No Loss of Consciousness, No Dizziness, No Headache Psych : No Anxiety/Panic, No Depression, No SI/HI/AH/VH, No Social Issues, Heme/Lymph: No Bruising, No Bleeding,No Lymphadenopathy Endocrine : No Polyuria, No Polydipsia, No Temperature Intolerance PMFSH Past Medical History Medical History Benign essential hypertension Benign prostatic hyperplasia with urinary frequency Constipation Coronary artery disease Diabetes mellitus Diabetic polyneuropathy Hyperkalemia Intertrigo Major depressive disorder, recurrent Obesity (BMI 30-39.9) Obstructive sleep apnea Pure hypercholesterolemia Vitamin B12 deficiency Vitamin D deficiency Surgical History History of prostate surgery (~12/04/10) History of quadruple bypass (~2005) Hx of cataract extraction (~2011) Hx of cholecystectomy (~2007) Hx of cystoscopy Family History Family History Father Lung cancer Mother Diabetes Hypertension Stomach cancer Social History Social History Household Members: None Housing: Apartment Do you presently have visiting nurse or other home services: No (offered VNA in past and refused) Alcohol intake: never Patient Tobacco Use Status: Former Tobacco user e-Cigarette/Vaping Use: Never Used Second Hand Smoke Exposure: Yes Advance Directives: Yes Advance Directives Information Provided: Yes Advance Directives on File: No Advance Directives Date on File: 05/09/20 service: No Current occupational status: disabled Cognitive needs: Yes (cane) Hearing needs: No Vision needs: Yes Physical Exam ED Vital Signs: Vital Signs - 24 hr 07/06/22 00:58 07/06/22 01:21 07/06/22 02:04 Temperature 97.5 F 97.6 F Pulse Rate 84 82 77 Respiratory Rate 20 16 Blood Pressure 118/61 145/74 H 139/67 Pulse Oximetry 98 98 Oxygen Delivery Method Room Air Room Air 07/06/22 02:04 07/06/22 02:06 07/06/22 04:00 Temperature 97.8 F Pulse Rate 78 85 85 Respiratory Rate 16 Blood Pressure 142/66 H 144/59 H 144/59 H Pulse Oximetry 98 Oxygen Delivery Method Room Air BMI result Body Mass Index 3887.0 Const Other: Appearance: Alert. Oriented X3. No acute distress. Eyes: Pupils equal, round and reactive to light. ENT: Pharynx normal. Neck: Normal inspection. Neck supple. No lymph nodes noted. No crepitus CVS: Normal heart rate and rhythm. Pulses normal. Normal S1 and S2 Respiratory: No respiratory distress. Breath sounds normal. No Wheezing. No rales Abdomen: Soft and nontender. No rigidity. No distention. Skin: Skin warm and dry. Normal skin color. Normal skin turgor. Extremities: No lower extremity edema. No Lacerations. No Rash Neuro: Oriented X 3. No motor deficit. No sensory deficit. Moving all extremities. No slurred speech. CN 2 through 12 grossly intact Psych: calm, cooperative, normal affect Medical Decision Making Medical Decision Making [facility] Narrative: -patient's labs look better than yesterday. KUB does not show any free air or air-fluid levels. Patient instructed to continue taking his antibiotic as prescribed yesterday. Here in the emergency room, patient was given IV fluids and Zofran. Patient was given 5 units of insulin. -and a gap is closed, not significantly hyperglycemic. DKA is not suspected -by time of discharge, glucose 206 Differential Diagnosis Differential Diagnoses: The differential diagnosis associated with the presentation includes (Diverticulitis, diverticulosis, colitis, gastroenteritis) Lab Data [facility] Lab Attestation statement: I reviewed the patient's lab results. 07/06/22 01:19 07/06/22 01:19 Labs: Lab Results 07/06/22 07/06/22 07/06/22 Range/Units 01:19 01:19 01:52 WBC 10.8 (4.8-10.8) X10*3/uL RBC 4.15 L (4.60-5.80) X10*6/uL Hgb 12.5 L (14.0-18.0) g/dl Hct 37.2 L (42.0-52.0) % MCV 89.6 (80.0-98.0) fL MCH 30.1 (27.0-33.0) pg MCHC 33.6 (31.0-36.0) g/dl RDW 12.1 (11.0-16.0) % Plt Count 184 (160-400) X10*3/uL MPV 12.4 (9.4-12.4) fL Immature Gran % (Auto) 0.3 (0.0-0.4) % Neut % (Auto) 71.2 (45-73) % Lymph % (Auto) 20.5 (20-40) % Steele % (Auto) 7.4 (2-11) % Eos % (Auto) 0.5 (0-4) % Baso % (Auto) 0.1 (0-2) % Lymph # (Auto) 2.2 (1.2-4.9) X10*3/uL Steele # (Auto) 0.8 (0.1-1.2) X10*3/uL Eos # (Auto) 0.1 (0.0-0.4) X10*3/uL Baso # (Auto) 0.0 (0.0-0.2) X10*3/uL Abs Immat Gran (auto) 0.03 (0.00-0.03) X10*3/uL Absolute Neuts (auto) 7.7 (2.0-8.3) x10*3/uL Absolute Nucleated RBC 0.000 (0.0-0.012) X10*3/uL Nucleated RBC % (auto) 0.0 (0.0-0.2) /100WBC Sodium 137 (135-145) mmol/L Potassium 4.3 (3.3-5.1) mmol/L Chloride 100 (96-108) mmol/L Carbon Dioxide 32 H (22-29) mmol/L Anion Gap 9 L (12-20) BUN 19 H (9-16) mg/dL Creatinine 1.19 (0.5-1.4) mg/dL Estim Creat Clear Calc -10.0 Estimated GFR > 60 POC Glucose (60-115) mg/dL Random Glucose 342 H (60-115) mg/dL Calcium 9.2 (8.4-10.2) mg/dL Total Bilirubin 1.1 H (0.0-1.0) mg/dL Direct Bilirubin 0.3 (0.0-0.5) mg/dL AST 25 (5-37) U/L ALT 24 (0-40) U/L Alkaline Phosphatase 133 H (39-117) U/L Total Protein 7.4 (6.5-8.0) g/dL Albumin 4.0 (3.5-5.0) g/dL Lipase 15 (8-78) U/L Urine Color Dark Yellow Urine Appearance Clear Urine pH 5.5 (5.0-9.0) Ur Specific [place] >= 1.030 H (1.005-1.025) Urine Protein 100 (2+) H (Neg-Trace) mg/dL Urine Glucose (UA) 100 H (Negative) mg/dL Urine Ketones Trace (Negative) mg/dL Urine Blood Negative (Negative) Urine Nitrite Negative (Negative) Ur Leukocyte Esterase Negative (Negative) Urine RBC 0-2 (0-2) /HPF Urine WBC 0-5 (0-5) /HPF Ur Squamous Epith Cells 0-2 (0-2) /HPF Urine Bacteria None Seen (None Seen) Hyaline Casts 0-2 (0-2) /LPF 07/06/22 07/06/22 Range/Units 02:54 04:06 WBC (4.8-10.8) X10*3/uL RBC (4.60-5.80) X10*6/uL Hgb (14.0-18.0) g/dl Hct (42.0-52.0) % MCV (80.0-98.0) fL MCH (27.0-33.0) pg MCHC (31.0-36.0) g/dl RDW (11.0-16.0) % Plt Count (160-400) X10*3/uL MPV (9.4-12.4) fL Immature Gran % (Auto) (0.0-0.4) % Neut % (Auto) (45-73) % Lymph % (Auto) (20-40) % Steele % (Auto) (2-11) % Eos % (Auto) (0-4) % Baso % (Auto) (0-2) % Lymph # (Auto) (1.2-4.9) X10*3/uL Steele # (Auto) (0.1-1.2) X10*3/uL Eos # (Auto) (0.0-0.4) X10*3/uL Baso # (Auto) (0.0-0.2) X10*3/uL Abs Immat Gran (auto) (0.00-0.03) X10*3/uL Absolute Neuts (auto) (2.0-8.3) x10*3/uL Absolute Nucleated RBC (0.0-0.012) X10*3/uL Nucleated RBC % (auto) (0.0-0.2) /100WBC Sodium (135-145) mmol/L Potassium (3.3-5.1) mmol/L Chloride (96-108) mmol/L Carbon Dioxide (22-29) mmol/L Anion Gap (12-20) BUN (9-16) mg/dL Creatinine (0.5-1.4) mg/dL Estim Creat Clear Calc Estimated GFR POC Glucose 314 H 206 H (60-115) mg/dL Random Glucose (60-115) mg/dL Calcium (8.4-10.2) mg/dL Total Bilirubin (0.0-1.0) mg/dL Direct Bilirubin (0.0-0.5) mg/dL AST (5-37) U/L ALT (0-40) U/L Alkaline Phosphatase (39-117) U/L Total Protein (6.5-8.0) g/dL Albumin (3.5-5.0) g/dL Lipase (8-78) U/L Urine Color Urine Appearance Urine pH (5.0-9.0) Ur Specific [place] (1.005-1.025) Urine Protein (Neg-Trace) mg/dL Urine Glucose (UA) (Negative) mg/dL Urine Ketones (Negative) mg/dL Urine Blood (Negative) Urine Nitrite (Negative) Ur Leukocyte Esterase (Negative) Urine RBC (0-2) /HPF Urine WBC (0-5) /HPF Ur Squamous Epith Cells (0-2) /HPF Urine Bacteria (None Seen) Hyaline Casts (0-2) /LPF Independent Interpretation I performed an independent interpretation of an: Plain X-Ray (KUB: No air-fluid levels, no free air under the diaphragm) Radiology Impression Discussion of test interpretation with radiology: I have reviewed the radiologist's reading. Radiologist Impression: Nonobstructive bowel gas pattern. No dilated loops of bowel. Gas and stool throughout the colon with moderate colonic stool burden. No free air on the upright view. No air-fluid levels. The lung bases are clear. Degenerative changes of the spine. Right upper quadrant surgical clips. XR/XR KUB IMPRESSION: Nonobstructive bowel gas pattern. Moderate colonic stool burden. ? Medications Administered Discontinued Medications Generic Name Dose Route Start Last Admin Trade Name Freq PRN Reason Stop Dose Admin Sodium Chloride 1,000 mls @ 999 mls/hr 07/06/22 02:01 07/06/22 03:25 Ns IVCONT 07/06/22 03:01 Infused .Q1H1M ONE Infusion Insulin Human Regular 5 unit 07/06/22 02:30 07/06/22 02:57 Insulin Regular, Human 100 Unit/Ml 3 Ml Vial IVPUSH 07/06/22 02:31 5 unit ONCE ONE Administration Ondansetron HCl 4 mg 07/06/22 02:01 07/06/22 02:13 Ondansetron Hcl 4 Mg/2 Ml Vial IVPUSH 07/06/22 02:02 4 mg ONCE ONE Administration Discharge Plan Discharge Clinical Impression: Abdominal pain, Nausea & vomiting, Hyperglycemia Patient Disposition: Home, Self-Care Instructions: Abdominal Pain (ED), Diabetic Hyperglycemia (ED), Diabetes and Exercise (ED) Additional Instructions: Please follow-up with your primary care physician tomorrow. If you have any worsening or new symptoms, please return to the emergency room or call 911 Prescriptions: New ondansetron HCl 4 mg tablet 4 mg PO Q6H PRN (Reason: nausea and vomiting) Qty: 14 0RF No Action Flovent HFA 110 mcg/actuation HFA aerosol inhaler 2 puff inhalation BID Qty: 12 2RF docusate sodium 100 mg capsule 100 mg PO DAILY PRN (Reason: constipation) 30 Days Qty: 30 3RF Rx Instructions: 1 capsule as needed Orally Once a day fluticasone propionate 50 mcg/actuation spray,suspension 1 spray intranasal DAILY Qty: 16 2RF polyethylene glycol 3350 [Miralax] 17 gram/dose powder 17 g PO DAILY 30 Days Qty: 510 3RF Glucerna Hunger Smart Liquid See Rx Instructions .ROUTE .COMPLEX 30 Days Qty: 60 3RF Rx Instructions: Take contents of 1 bottle orally twice a day; tamsulosin 0.4 mg capsule 0.4 mg PO DAILY 30 Days Qty: 30 3RF clotrimazole-betamethasone 1-0.05 % cream 1 appl topical BID 15 Days Qty: 45 0RF aspirin 81 mg tablet,delayed release (DR/EC) 81 mg PO DAILY Qty: 90 3RF insulin glargine [Lantus Solostar U-100 Insulin] 100 unit/mL (3 mL) insulin pen 80 unit subcut BID 30 Days Qty: 48 3RF atorvastatin 80 mg tablet 80 mg PO DAILY Qty: 90 1RF duloxetine 30 mg capsule,delayed release(DR/EC) 30 mg PO DAILY 30 Days Qty: 30 3RF (DME) blood-glucose meter [LeapforceTouch Ultra2 Meter] Kit See Rx Instructions .Route Qty: 1 0RF Rx Instructions: As directed- To test blood sugar three times daily insulin lispro [Humalog KwikPen Insulin] 100 unit/mL insulin pen 35 unit subcut BID Qty: 15 3RF paroxetine HCl 40 mg tablet 40 mg PO DAILY Qty: 90 0RF (DME) pen needle, diabetic [Lite Touch Insulin Pen Rocklin] 31 gauge x 5/16 needle See Rx Instructions .Route Qty: 100 12RF Rx Instructions: Use 3 times daily (DME) lancets [OneTouch Delica Lancets] 33 gauge misc See Rx Instructions .Route Qty: 100 12RF Rx Instructions: As directed 3 times a day gabapentin 400 mg capsule 800 mg PO BID Qty: 120 3RF Rx Instructions: take 2 capsules orally twice a day cyanocobalamin (vitamin B-12) 1,000 mcg tablet 1,000 mcg PO DAILY 90 Days Qty: 90 3RF metoprolol tartrate 50 mg tablet 50 mg PO BID Qty: 180 1RF lisinopril 10 mg tablet 10 mg PO DAILY Qty: 90 0RF blood sugar diagnostic Strip 1 strip miscellaneous TID Qty: 100 3RF albuterol sulfate 90 mcg/actuation HFA aerosol inhaler 2 puff PO Q4-6H PRN (Reason: for wheezing) Qty: 8.5 2RF furosemide 20 mg tablet 20 mg PO DAILY PRN (Reason: swelling) dicyclomine 20 mg tablet 20 mg PO QID PRN (Reason: abdominal pain) Qty: 20 0RF amoxicillin-pot clavulanate 875-125 mg tablet 1 tab PO BID Qty: 20 0RF (DME) SHOWER CHAIR See Rx Instructions .Route .MEDSUPPLY Qty: 1 0RF Rx Instructions: As directed (DME) SHOWER CHAIR See Rx Instructions .Route .MEDSUPPLY Qty: 1 0RF Rx Instructions: As directed omeprazole 40 mg capsule,delayed release(DR/EC) 40 mg PO DAILY 30 Days Qty: 30 3RF (DME) insulin syr/ndl U100 half gareth 0.5 mL 30 gauge x 5/16 syringe See Rx Instructions .Route Qty: 100 12RF Rx Instructions: Use 4 times daily cholecalciferol (vitamin D3) 50 mcg (2,000 unit) capsule 50 mcg PO DAILY 90 Days Qty: 90 3RF oxybutynin chloride 10 mg tablet extended release 24hr 10 mg PO DAILY Qty: 90 0RF Trulicity 1.5 mg/0.5 mL pen injector 1.5 mg subcut QWEEK Qty: 2 5RF (DME) blood-glucose meter [OneTouch Ultra2 Meter] Misc See Rx Instructions .ROUTE TID Qty: 1 Rx Instructions: As directed (DME) FreeStyle Iwona 2 Sensor Kit See Rx Instructions .Route Qty: 2 5RF Rx Instructions: As directed change every 14 days (DME) FreeStyle Iwona 2 Beggs Misc See Rx Instructions .Route Qty: 1 0RF Rx Instructions: As directed
[2022-07-06 01:41] LABS: Anion Gap 9 (12-20); Blood Urea Nitrogen 19 mg/dL (9-16); Calcium 9.2 mg/dL (8.4-10.2); Carbon Dioxide 32 mmol/L (22-29); Chloride 100 mmol/L (96-108); Estimated Glomerular Filt Rate > 60; Glucose Random 342 mg/dL (60-115); Potassium 4.3 mmol/L (3.3-5.1); Sodium 137 mmol/L (135-145)
[2022-07-06 01:53] LABS: Alanine Aminotransferase 24 U/L (0-40); Alkaline Phosphatase 133 U/L (39-117); Aspartate Amino Transferase 25 U/L (5-37); Bilirubin Direct 0.3 mg/dL (0.0-0.5); Bilirubin Total 1.1 mg/dL (0.0-1.0); Lipase 15 U/L (8-78); Total Protein 7.4 g/dL (6.5-8.0)
[2022-07-06 01:58] LABS: Appearance Urine Clear; Color Urine Dark Yellow; Glucose Urine UA 100 mg/dL (Negative); Leukocyte Esterase Urine Negative (Negative); Nitrite Urine Negative (Negative); PH 5.5 (5.0-9.0); Specific Gravity - Urine >= 1.030 (1.005-1.025); UMIC TRIGGER UACC YES; Urine Blood Negative (Negative); Urine Ketones Trace mg/dL (Negative); Urine Protein 100 (2+) mg/dL (Neg-Trace)
[2022-07-06 02:04] VITALS: BP 139/67; BP 142/66; PULSE 77; PULSE 78
[2022-07-06 02:04] LABS: Bacteria Urine None Seen (None Seen); Hyaline Casts Urine 0-2 /LPF (0-2); RBC Urine 0-2 /HPF (0-2); Squamous Epithelial Cell Urine 0-2 /HPF (0-2); WBC Urine 0-5 /HPF (0-5)
[2022-07-06 02:06] VITALS: BP 144/59; PULSE 85
[2022-07-06] MEDS: 0.9 % Sodium Chloride 1,000 ML 999 ML IVCONT (02:11)
[2022-07-06] MEDS: ondansetron HCL 4 MG/2 ML VIAL IVPUSH (02:13)
--- NOTE | 2022-07-06 02:35 | MHC.EDTECH ---
PT EKG DONE AND WAS READ BY MD ROSE .
--- NOTE | 2022-07-06 02:56 | MHC.EDTECH ---
PT BLOOD SUGAR CHECK ,RN KAREN AWARE OF RESULT OF 314 .
[2022-07-06] MEDS: Insulin Regular, Human 100 UNIT/ML 3 ML VIAL IVPUSH (02:57)
[2022-07-06 02:58] LABS: Glucose, Whole Blood 314 mg/dL (60-115)
[2022-07-06 04:00] VITALS: BP 144/59; PULSE 85; RESP 16; TEMP 36.6; O2SAT 98
--- NOTE | 2022-07-06 04:08 | MHC.EDTECH ---
0400 rounding done ,vitals sign taken ,blood sugar re check ,rn david aware of result of 206 .
[2022-07-06 04:12] LABS: Glucose, Whole Blood 206 mg/dL (60-115)
== END 2022-07-06 04:52 | disposition home or self-care (01) ==
PROVIDERS: Emergency Provider Emergency Medicine; PCP Internal Medicine
DX: R10.9 Unspecified abdominal pain (principal); E11.65 Type 2 diabetes mellitus with hyperglycemia; R11.2 Nausea with vomiting, unspecified; E78.00 Pure hypercholesterolemia, unspecified; I10 Essential (primary) hypertension; Z79.4 Long term (current) use of insulin; Z79.899 Other long term (current) drug therapy; Z79.02 Long term (current) use of antithrombotics/antiplatelets
CPT/HCPCS: 36415; 74018; 80048; 80076; 81001; 81003; 82947; 83690; 85025; 93005; 96361; 96374; 96375; 99284; 99285; J2405

== ENCOUNTER 2022-07-06 18:45 | Emergency (ER) | payer OTHER, SELFPAY ==
--- NOTE | ~2022-07-06 | CT_ITS ---
EXAMINATION: CT ABDOMEN AND PELVIS WITHOUT CONTRAST CLINICAL INFORMATION: Left lower quadrant pain. COMPARISON: CT abdomen/pelvis 07/05/2022. TECHNIQUE: Multidetector volumetric imaging was performed from the superior aspect of the liver through the pubic symphysis. Sagittal and coronal reformatted images were obtained on the technologist's workstation. This CT examination was performed using dose optimization techniques as appropriate, variously including the following: *Automated exposure control *Adjustment of mA and/or kV according to patient size (this includes techniques or standardized protocols for targeted exams where dose is matched to indication/reason for exam; i.e. extremities or head) *Use of iterative reconstruction technique DLP: 931 mGy-cm FINDINGS: LUNG BASES: There is a 5 mm pulmonary nodule in the right lower lobe (4:22). No focal consolidation or pleural effusion. Partially imaged and sternal wires and coronary artery calcifications. Symmetric gynecomastia. LIVER, GALLBLADDER, AND BILIARY TREE: The noncontrast liver is normal in size, shape, and attenuation. No focal hepatic lesion or biliary ductal dilatation is present. Cholecystectomy. PANCREAS: Limited noncontrast examination, unremarkable. SPLEEN: Unremarkable. ADRENAL GLANDS: Unremarkable. KIDNEYS AND URETERS: No nephrolithiasis or hydronephrosis. No significant perinephric fat stranding. BLADDER: Unremarkable. GASTROINTESTINAL TRACT: Colonic diverticulosis. No pericolonic inflammatory changes. The stomach and the small bowel are nondilated. Normal appendix. Moderate degree of colonic and rectal stool content. ABDOMINAL WALL: Small bilateral fat-containing inguinal hernias. LYMPH NODES: No lymphadenopathy. VASCULAR: Atherosclerotic disease. Abdominal aorta is normal in caliber. PELVIC VISCERA: Unremarkable. OSSEOUS STRUCTURES: Degenerative changes of the spine. No acute or aggressive appearing osseous abnormalities. CT/CT abdomen pelvis wo IV con IMPRESSION: 1. No acute intra-abdominal or pelvic abnormalities to explain the patient's symptoms. 2. Colonic diverticulosis but no evidence of acute diverticulitis. 3. Moderate degree of colonic and rectal stool content suggesting constipation. 4. Incidentally noted 5 mm pulmonary nodule in the right lower lobe. According to the UPDATED 2017 Fleischner Society recommendations, the advised followup imaging for solid nodules < 6 mm is: LOW RISK PATIENT: No routine follow up. HIGH RISK PATIENT: Optional CT at 12 months.
[2022-07-06 19:16] VITALS: BP 130/60; PULSE 82; RESP 15; TEMP 36.5; O2SAT 99; BMI 41.7
--- NOTE | 2022-07-06 19:22 | ED.ABDPAIN ---
HPI - Abdominal Pain General Chief Complaint: Abdominal Pain <SLOAN Cook - Last Filed: 07/06/22 19:28> Stated Complaint: abd pain, nausea, diarrhea <SLOAN Cook - Last Filed: 07/06/22 19:28> Time Seen by Provider: 07/06/22 20:32 <SLOAN Cook - Last Filed: 07/06/22 19:28> Source: patient <Sharath Styles MD - Last Filed: 07/07/22 02:18> Mode of arrival: ambulatory <Sharath Styles MD - Last Filed: 07/07/22 02:18> Limitations: no limitations <Sharath Styles MD - Last Filed: 07/07/22 02:18> History of Present Illness HPI narrative: Patient with History of constipation not moving his bowel as usual , complaining of pain in left lower abdomen for last 3- 4 days patient was seen here yesterday and again today unable to get the CT scan of the abdomen because patient refused to lay flat on the CT scan machine patient was empirically started on Augmentin, labs were stable now comes again because pain and nausea with multiple episodes of vomiting patient's does not feel comfortable and he agreed for the CT scan <Sharath Styles MD - Last Filed: 07/07/22 02:18> Related Data Home Medications: Home Medications Medication Instructions Recorded Confirmed furosemide 20 mg tablet 20 mg PO DAILY PRN swelling 05/09/20 06/12/22 blood-glucose meter (OneTouch #1 ea 06/12/22 06/12/22 Ultra2 Meter) Previous Rx's Medication Instructions Recorded fluticasone propionate 110 2 puff inhalation BID #12 grams 02/10/20 mcg/actuation HFA aerosol inhaler (Flovent HFA) docusate sodium 100 mg capsule 100 mg PO DAILY PRN constipation 07/17/20 30 days #30 caps SHOWER CHAIR #1 ea 10/05/20 SHOWER CHAIR #1 ea 01/10/21 fluticasone propionate 50 1 spray intranasal DAILY #16 grams 03/16/21 mcg/actuation nasal spray,suspension insulin syr/ndl U100 half gareth 0.5 #100 ea 05/14/21 mL 30 gauge x 5/16 polyethylene glycol 3350 17 17 g PO DAILY 30 days #510 grams 06/26/21 gram/dose oral powder (Miralax) cholecalciferol (vitamin D3) 50 50 mcg PO DAILY 90 days #90 caps 09/07/21 mcg (2,000 unit) capsule nut.tx.gluc.intol,lac-free,soy See Rx Instructions .Route 09/11/21 (Glucerna Hunger Smart oral liquid) .COMPLEX 30 days #60 bottles tamsulosin 0.4 mg capsule 0.4 mg PO DAILY 30 days #30 caps 09/12/21 clotrimazole-betamethasone 1 1 appl topical BID 15 days #45 11/26/21 %-0.05 % topical cream grams aspirin 81 mg tablet,delayed 81 mg PO DAILY #90 tabs 01/14/22 release insulin glargine 100 unit/mL (3 80 unit (0.8 mL) subcut BID 30 01/14/22 mL) subcutaneous pen (Lan #48 mL Solostar U-100 Insulin) dulaglutide 1.5 mg/0.5 mL 1.5 mg (0.5 mL) subcut QWEEK #2 mL 01/23/22 subcutaneous pen injector (T[employer]Spring) atorvastatin 80 mg tablet 80 mg PO DAILY #90 tabs 02/19/22 duloxetine 30 mg capsule,delayed 30 mg PO DAILY 30 days #30 caps 02/19/22 release blood-glucose meter ([employer] #1 ea 03/12/22 Ultra2 Meter kit) insulin lispro 100 unit/mL 35 unit (0.35 mL) subcut BID #15 mL 03/12/22 subcutaneous pen (Humalog KwikPen (U-100) Insulin) paroxetine HCl 40 mg tablet 40 mg PO DAILY #90 tabs 03/12/22 pen needle, diabetic 31 gauge x #100 ea 03/12/2207/23 (Lite Touch Insulin Pen Clark) lancets 33 gauge (OneTouch Delica #100 ea 03/13/22 Lancets) gabapentin 400 mg capsule 800 mg PO BID #120 caps 04/22/22 cyanocobalamin (vitamin B-12) 1,000 mcg PO DAILY 90 days #90 tabs 04/25/22 1,000 mcg tablet metoprolol tartrate 50 mg tablet 50 mg PO BID #180 tabs 04/25/22 oxybutynin chloride 10 mg 10 mg PO DAILY #90 tabs 04/25/22 tablet,extended release 24 hr lisinopril 10 mg tablet 10 mg PO DAILY #90 tabs 05/21/22 blood sugar diagnostic 1 strip miscellaneous TID #100 05/31/22 strips omeprazole 40 mg capsule,delayed 40 mg PO DAILY 30 days #30 caps 06/10/22 release flash glucose scanning reader #1 ea 06/12/22 (FreeStyle Iwona 2 [place]) flash glucose sensor (FreeStyle #2 ea 06/12/22 Iwona 2 Sensor kit) albuterol sulfate 90 mcg/actuation 2 puff PO Q4-6H PRN for wheezing 07/02/22 aerosol inhaler #8.5 grams amoxicillin 875 mg-potassium 1 tab PO BID #20 tabs 07/05/22 clavulanate 125 mg tablet dicyclomine 20 mg tablet 20 mg PO QID PRN abdominal pain 07/05/22 #20 tabs ondansetron HCl 4 mg tablet 4 mg PO Q6H PRN nausea and 07/06/22 vomiting #14 tabs ondansetron 4 mg disintegrating 4 mg PO Q6-8H PRN nausea and 07/07/22 tablet vomiting #7 tabs polyethylene glycol 3350 17 17 g PO DAILY #510 grams 07/07/22 gram/dose oral powder (Miralax) <SLOAN Cook - Last Filed: 07/06/22 19:28> Allergies/Adverse Reactions: Allergies Allergy/AdvReac Type Severity Reaction Status Date / Time hydromorphone [Dilaudid] AdvReac Unknown confusion Verified 07/04/22 23:36 From DILAUDID AdvReac Severe CONFUSION/H Uncoded 06/10/22 09:56 ALLUCIATION S From PERCOCET AdvReac Intermediate AGITATION Uncoded 06/10/22 09:56 <SLOAN Cook - Last Filed: 07/06/22 19:28> Review of Systems Review of Systems Yes all other systems are reviewed and are negative <Sharath Styles MD - Last Filed: 07/07/22 02:18> [facility] Past Medical History Medical History: Medical History Benign essential hypertension Benign prostatic hyperplasia with urinary frequency Constipation Coronary artery disease Diabetes mellitus Diabetic polyneuropathy Hyperkalemia Intertrigo Major depressive disorder, recurrent Obesity (BMI 30-39.9) Obstructive sleep apnea Pure hypercholesterolemia Vitamin B12 deficiency Vitamin D deficiency <SLOAN Cook - Last Filed: 07/06/22 19:28> Surgical History: Surgical History History of prostate surgery (~12/04/10) History of quadruple bypass (~2005) Hx of cataract extraction (~2011) Hx of cholecystectomy (~2007) Hx of cystoscopy <SLOAN Cook - Last Filed: 07/06/22 19:28> Family History Family History: Family History Father Lung cancer Mother Diabetes Hypertension Stomach cancer <SLOAN Cook - Last Filed: 07/06/22 19:28> Social History Social History: Social History Household Members: None Housing: Apartment Do you presently have visiting nurse or other home services: No (offered VNA in past and refused) Alcohol intake: never Patient Tobacco Use Status: Former Tobacco user Smoked in Last 30 Days: No e-Cigarette/Vaping Use: Never Used Second Hand Smoke Exposure: Yes Use of substances other than those prescribed or required for medical reasons: No Advance Directives: Yes Advance Directives Information Provided: No Advance Directives on File: No Advance Directives Date on File: 05/09/20 service: No Current occupational status: disabled Cognitive needs: Yes (cane) Hearing needs: No Vision needs: Yes <SLOAN Cook - Last Filed: 07/06/22 19:28> Physical Exam ED Vital Signs: Vital Signs - 24 hr 07/06/22 19:16 07/06/22 19:44 07/07/22 00:00 Temperature 97.7 F 97.6 F Pulse Rate 82 81 90 Respiratory Rate 15 16 18 Blood Pressure 130/60 157/70 H 156/72 H Pulse Oximetry 99 94 99 Oxygen Delivery Method Room Air Room Air BMI result Body Mass Index 41.7 <SLOAN Cook - Last Filed: 07/06/22 19:28> Vital Signs - 24 hr 04/29/23 19:16 07/06/22 19:44 07/07/22 00:00 Temperature 97.7 F 97.6 F Pulse Rate 82 81 90 Respiratory Rate 15 16 18 Blood Pressure 130/60 157/70 H 156/72 H Pulse Oximetry 99 94 99 Oxygen Delivery Method Room Air Room Air BMI result Body Mass Index 41.7 <Sharath Styles MD - Last Filed: 07/07/22 02:18> Vital Signs - 24 hr 07/06/22 19:16 07/06/22 19:44 07/07/22 00:00 Temperature 97.7 F 97.6 F Pulse Rate 82 81 90 Respiratory Rate 15 16 18 Blood Pressure 130/60 157/70 H 156/72 H Pulse Oximetry 99 94 99 Oxygen Delivery Method Room Air Room Air BMI result Body Mass Index 41.7 <Nuria Russell MD - Last Filed: 07/07/22 05:35> Appearance: Alert. Oriented X3. Feel nauseated actively vomiting Eyes: No pallor or icterus ENT: Pharynx normal. Oral Mucosa moist Neck: Normal inspection. Neck supple. CVS: Normal heart rate and rhythm. Pulses normal. Respiratory: No respiratory distress. Equal air entry bilateral, no wheezing/rales/rhonchi Abdomen: Soft depends left lower quadrant no rebound tenderness regard Bowel sounds are present, no mass palpable, no CVA tenderness Skin: Skin warm and dry. Normal skin color. Normal skin turgor. Extremities: No lower extremity edema. No calf tenderness Neuro: Oriented X 3. No motor deficit. <Sharath Styles MD - Last Filed: 07/07/22 02:18> Course Course Course Narrative: This is an RME: Additional HPI, ROS, PE not included below will be deferred to primary provider. This is a [id number], with a past medical history of htn, diabetes, JAIME, BPH, who presents to the emergency department with ongoing abdominal pain. Patient has been seen here twice for the same symptoms, there is a question of diverticulitis however patient has not had a CT scan of his abdomen, as per note patient has been on able to lay down to get the image. On examination patient has diffuse abdominal tenderness, worse in the left upper quadrant. Patient has been taking antibiotics without any relief and feels as though his pain is only getting worse. Plan: Labs, UA, and CT abd ordered. <SLOAN Cook - Last Filed: 07/06/22 19:28> Medical Decision Making Medical Decision Making MDM Narrative: Patient with 3rd visit to the ER for abdominal discomfort and nausea vomiting last bowel movement was [address] scan was done which was negative for acute pathology except for moderate amount of stool no SBO patient still continued to vomit in the ER unable to take any p.o. fluids. Will give him IV Compazine and Ativan re-evaluate hospitalist aware if patient does not get better will get admitted for intractable vomiting <Sharath Styles MD - Last Filed: 07/07/22 02:18> Patient with 3rd visit to the ER for abdominal discomfort and nausea vomiting last bowel movement was [address] scan was done which was negative for acute pathology except for moderate amount of stool no SBO patient still continued to vomit in the ER unable to take any p.o. fluids. Will give him IV Compazine and Ativan re-evaluate hospitalist aware if patient does not get better will get admitted for intractable vomiting -I was informed by Dr. Pérez, the patient states that he is feeling much better and he would like to be discharged. This is the 3rd visit in 3 days for the same complaints. Patient refuses to stay. Patient will be leaving against medical advice. <Nuria Russell MD - Last Filed: 07/07/22 05:35> Consult Healthcare Provider Management of the patient was discussed with: Hospitalist <Sharath Styles MD - Last Filed: 07/07/22 02:18> Lab Data MDM Lab Attestation statement: I reviewed the patient's lab results. <Sharath Styles MD - Last Filed: 07/07/22 02:18> Result Diagrams: 07/06/22 20:41 07/06/22 20:41 <SLOAN Cook - Last Filed: 07/06/22 19:28> Labs: Lab Results 07/06/22 07/06/22 07/07/22 Range/Units 20:41 20:41 01:30 WBC 8.5 (4.8-10.8) X10*3/uL RBC 4.35 L (4.60-5.80) X10*6/uL Hgb 13.2 L (14.0-18.0) g/dl Hct 39.4 L (42.0-52.0) % MCV 90.6 (80.0-98.0) fL MCH 30.3 (27.0-33.0) pg MCHC 33.5 (31.0-36.0) g/dl RDW 12.2 (11.0-16.0) % Plt Count 169 (160-400) X10*3/uL MPV 12.4 (9.4-12.4) fL Immature Gran % (Auto) 0.4 (0.0-0.4) % Neut % (Auto) 74.3 H (45-73) % Lymph % (Auto) 17.9 L (20-40) % Winn % (Auto) 6.7 (2-11) % Eos % (Auto) 0.6 (0-4) % Baso % (Auto) 0.1 (0-2) % Lymph # (Auto) 1.5 (1.2-4.9) X10*3/uL Winn # (Auto) 0.6 (0.1-1.2) X10*3/uL Eos # (Auto) 0.1 (0.0-0.4) X10*3/uL Baso # (Auto) 0.0 (0.0-0.2) X10*3/uL Abs Immat Gran (auto) 0.03 (0.00-0.03) X10*3/uL Absolute Neuts (auto) 6.3 (2.0-8.3) x10*3/uL Absolute Nucleated RBC 0.000 (0.0-0.012) X10*3/uL Nucleated RBC % (auto) 0.0 (0.0-0.2) /100WBC Sodium 140 (135-145) mmol/L Potassium 4.0 (3.3-5.1) mmol/L Chloride 102 (96-108) mmol/L Carbon Dioxide 28 (22-29) mmol/L Anion Gap 14 (12-20) BUN 15 (9-16) mg/dL Creatinine 1.15 (0.5-1.4) mg/dL Estim Creat Clear Calc 68.2 Estimated GFR > 60 Random Glucose 318 H (60-115) mg/dL Calcium 9.6 (8.4-10.2) mg/dL Magnesium 1.9 (1.6-2.6) mg/dL Total Bilirubin 0.9 (0.0-1.0) mg/dL Direct Bilirubin 0.3 (0.0-0.5) mg/dL AST 31 (5-37) U/L ALT 24 (0-40) U/L Alkaline Phosphatase 128 H (39-117) U/L Total Protein 7.4 (6.5-8.0) g/dL Albumin 4.0 (3.5-5.0) g/dL Lipase 17 (8-78) U/L Urine Color Yellow Urine Appearance Clear Urine pH 6.0 (5.0-9.0) Ur Specific Reading 1.020 (1.005-1.025) Urine Protein 100 (2+) H (Neg-Trace) mg/dL Urine Glucose (UA) >=1000 H (Negative) mg/dL Urine Ketones 15 (Negative) mg/dL Urine Blood Negative (Negative) Urine Nitrite Negative (Negative) Ur Leukocyte Esterase Negative (Negative) Urine RBC 0-2 (0-2) /HPF Urine WBC 0-5 (0-5) /HPF Ur Squamous Epith Cells 0-2 (0-2) /HPF Urine Bacteria None Seen (None Seen) Hyaline Casts 0-2 (0-2) /LPF Ethyl Alcohol < 10 mg/dL <SLOAN Cook - Last Filed: 07/06/22 19:28> Lab Results 07/06/22 07/06/22 07/07/22 Range/Units 20:41 20:41 01:30 WBC 8.5 (4.8-10.8) X10*3/uL RBC 4.35 L (4.60-5.80) X10*6/uL Hgb 13.2 L (14.0-18.0) g/dl Hct 39.4 L (42.0-52.0) % MCV 90.6 (80.0-98.0) fL MCH 30.3 (27.0-33.0) pg MCHC 33.5 (31.0-36.0) g/dl RDW 12.2 (11.0-16.0) % Plt Count 169 (160-400) X10*3/uL MPV 12.4 (9.4-12.4) fL Immature Gran % (Auto) 0.4 (0.0-0.4) % Neut % (Auto) 74.3 H (45-73) % Lymph % (Auto) 17.9 L (20-40) % Winn % (Auto) 6.7 (2-11) % Eos % (Auto) 0.6 (0-4) % Baso % (Auto) 0.1 (0-2) % Lymph # (Auto) 1.5 (1.2-4.9) X10*3/uL Winn # (Auto) 0.6 (0.1-1.2) X10*3/uL Eos # (Auto) 0.1 (0.0-0.4) X10*3/uL Baso # (Auto) 0.0 (0.0-0.2) X10*3/uL Abs Immat Gran (auto) 0.03 (0.00-0.03) X10*3/uL Absolute Neuts (auto) 6.3 (2.0-8.3) x10*3/uL Absolute Nucleated RBC 0.000 (0.0-0.012) X10*3/uL Nucleated RBC % (auto) 0.0 (0.0-0.2) /100WBC Sodium 140 (135-145) mmol/L Potassium 4.0 (3.3-5.1) mmol/L Chloride 102 (96-108) mmol/L Carbon Dioxide 28 (22-29) mmol/L Anion Gap 14 (12-20) BUN 15 (9-16) mg/dL Creatinine 1.15 (0.5-1.4) mg/dL Estim Creat Clear Calc 68.2 Estimated GFR > 60 Random Glucose 318 H (60-115) mg/dL Calcium 9.6 (8.4-10.2) mg/dL Magnesium 1.9 (1.6-2.6) mg/dL Total Bilirubin 0.9 (0.0-1.0) mg/dL Direct Bilirubin 0.3 (0.0-0.5) mg/dL AST 31 (5-37) U/L ALT 24 (0-40) U/L Alkaline Phosphatase 128 H (39-117) U/L Total Protein 7.4 (6.5-8.0) g/dL Albumin 4.0 (3.5-5.0) g/dL Lipase 17 (8-78) U/L Urine Color Yellow Urine Appearance Clear Urine pH 6.0 (5.0-9.0) Ur Specific Reading 1.020 (1.005-1.025) Urine Protein 100 (2+) H (Neg-Trace) mg/dL Urine Glucose (UA) >=1000 H (Negative) mg/dL Urine Ketones 15 (Negative) mg/dL Urine Blood Negative (Negative) Urine Nitrite Negative (Negative) Ur Leukocyte Esterase Negative (Negative) Urine RBC 0-2 (0-2) /HPF Urine WBC 0-5 (0-5) /HPF Ur Squamous Epith Cells 0-2 (0-2) /HPF Urine Bacteria None Seen (None Seen) Hyaline Casts 0-2 (0-2) /LPF Ethyl Alcohol < 10 mg/dL <Sharath Styles MD - Last Filed: 07/07/22 02:18> Lab Results 07/06/22 07/06/22 07/07/22 Range/Units 20:41 20:41 01:30 WBC 8.5 (4.8-10.8) X10*3/uL RBC 4.35 L (4.60-5.80) X10*6/uL Hgb 13.2 L (14.0-18.0) g/dl Hct 39.4 L (42.0-52.0) % MCV 90.6 (80.0-98.0) fL MCH 30.3 (27.0-33.0) pg MCHC 33.5 (31.0-36.0) g/dl RDW 12.2 (11.0-16.0) % Plt Count 169 (160-400) X10*3/uL MPV 12.4 (9.4-12.4) fL Immature Gran % (Auto) 0.4 (0.0-0.4) % Neut % (Auto) 74.3 H (45-73) % Lymph % (Auto) 17.9 L (20-40) % Winn % (Auto) 6.7 (2-11) % Eos % (Auto) 0.6 (0-4) % Baso % (Auto) 0.1 (0-2) % Lymph # (Auto) 1.5 (1.2-4.9) X10*3/uL Winn # (Auto) 0.6 (0.1-1.2) X10*3/uL Eos # (Auto) 0.1 (0.0-0.4) X10*3/uL Baso # (Auto) 0.0 (0.0-0.2) X10*3/uL Abs Immat Gran (auto) 0.03 (0.00-0.03) X10*3/uL Absolute Neuts (auto) 6.3 (2.0-8.3) x10*3/uL Absolute Nucleated RBC 0.000 (0.0-0.012) X10*3/uL Nucleated RBC % (auto) 0.0 (0.0-0.2) /100WBC Sodium 140 (135-145) mmol/L Potassium 4.0 (3.3-5.1) mmol/L Chloride 102 (96-108) mmol/L Carbon Dioxide 28 (22-29) mmol/L Anion Gap 14 (12-20) BUN 15 (9-16) mg/dL Creatinine 1.15 (0.5-1.4) mg/dL Estim Creat Clear Calc 68.2 Estimated GFR > 60 Random Glucose 318 H (60-115) mg/dL Calcium 9.6 (8.4-10.2) mg/dL Magnesium 1.9 (1.6-2.6) mg/dL Total Bilirubin 0.9 (0.0-1.0) mg/dL Direct Bilirubin 0.3 (0.0-0.5) mg/dL AST 31 (5-37) U/L ALT 24 (0-40) U/L Alkaline Phosphatase 128 H (39-117) U/L Total Protein 7.4 (6.5-8.0) g/dL Albumin 4.0 (3.5-5.0) g/dL Lipase 17 (8-78) U/L Urine Color Yellow Urine Appearance Clear Urine pH 6.0 (5.0-9.0) Ur Specific Reading 1.020 (1.005-1.025) Urine Protein 100 (2+) H (Neg-Trace) mg/dL Urine Glucose (UA) >=1000 H (Negative) mg/dL Urine Ketones 15 (Negative) mg/dL Urine Blood Negative (Negative) Urine Nitrite Negative (Negative) Ur Leukocyte Esterase Negative (Negative) Urine RBC 0-2 (0-2) /HPF Urine WBC 0-5 (0-5) /HPF Ur Squamous Epith Cells 0-2 (0-2) /HPF Urine Bacteria None Seen (None Seen) Hyaline Casts 0-2 (0-2) /LPF Ethyl Alcohol < 10 mg/dL <Nuria Russell MD - Last Filed: 07/07/22 05:35> Medications Administered Discontinued Medications Generic Name Dose Route Start Last Admin Trade Name Freq PRN Reason Stop Dose Admin Bisacodyl 10 mg 07/06/22 23:01 07/06/22 23:14 Bisacodyl 5 Mg Tablet.Dr PO 07/06/22 23:02 10 mg ONCE ONE Administration Sodium Chloride 1,000 mls @ 999 mls/hr 07/06/22 20:48 07/06/22 22:03 Ns IV 07/06/22 21:48 Infused .Q1H1M ONE Infusion Sodium Chloride 1,000 mls @ 999 mls/hr 07/07/22 01:12 07/07/22 04:42 Ns IV 07/07/22 02:12 Infused .Q1H1M ONE Infusion Lorazepam 1 mg 07/07/22 01:39 07/07/22 01:55 Lorazepam 2 Mg/Ml Vial IVPUSH 07/07/22 01:40 1 mg ONCE ONE Administration Magnesium Hydroxide 30 ml 07/06/22 23:01 07/06/22 23:14 Milk Of Magnesia 30 Ml Oral.Susp PO 07/06/22 23:02 30 ml ONCE ONE Administration Morphine Sulfate 4 mg 07/06/22 20:48 07/06/22 20:58 Morphine Sulfate 4 Mg/Ml Cartridge IVPUSH 07/06/22 20:49 4 mg ONCE ONE Administration Protocol Ondansetron HCl 4 mg 07/06/22 20:48 07/06/22 20:58 Ondansetron Hcl 4 Mg/2 Ml Vial IVPUSH 07/06/22 20:49 4 mg ONCE ONE Administration Ondansetron HCl 4 mg 07/06/22 23:37 07/06/22 23:47 Ondansetron Hcl 4 Mg/2 Ml Vial IVPUSH 07/06/22 23:38 4 mg ONCE ONE Administration Prochlorperazine Edisylate 10 mg 07/07/22 01:11 07/07/22 01:32 Prochlorperazine Edisylate 10 Mg/2 Ml Vial IVPUSH 07/07/22 01:12 10 mg ONCE ONE Administration <SLOAN Cook - Last Filed: 07/06/22 19:28> Medications Administered Discontinued Medications Generic Name Dose Route Start Last Admin Trade Name Femi PRN Reason Stop Dose Admin Bisacodyl 10 mg 07/06/22 23:01 07/06/22 23:14 Bisacodyl 5 Mg Tablet.Dr PO 07/06/22 23:02 10 mg ONCE ONE Administration Sodium Chloride 1,000 mls @ 999 mls/hr 07/06/22 20:48 07/06/22 22:03 Ns IV 07/06/22 21:48 Infused .Q1H1M ONE Infusion Sodium Chloride 1,000 mls @ 999 mls/hr 07/07/22 01:12 07/07/22 04:42 Ns IV 07/07/22 02:12 Infused .Q1H1M ONE Infusion Lorazepam 1 mg 07/07/22 01:39 07/07/22 01:55 Lorazepam 2 Mg/Ml Vial IVPUSH 07/07/22 01:40 1 mg ONCE ONE Administration Magnesium Hydroxide 30 ml 07/06/22 23:01 07/06/22 23:14 Milk Of Magnesia 30 Ml Oral.Susp PO 07/06/22 23:02 30 ml ONCE ONE Administration Morphine Sulfate 4 mg 07/06/22 20:48 07/06/22 20:58 Morphine Sulfate 4 Mg/Ml Cartridge IVPUSH 07/06/22 20:49 4 mg ONCE ONE Administration Protocol Ondansetron HCl 4 mg 07/06/22 20:48 07/06/22 20:58 Ondansetron Hcl 4 Mg/2 Ml Vial IVPUSH 07/06/22 20:49 4 mg ONCE ONE Administration Ondansetron HCl 4 mg 07/06/22 23:37 07/06/22 23:47 Ondansetron Hcl 4 Mg/2 Ml Vial IVPUSH 07/06/22 23:38 4 mg ONCE ONE Administration Prochlorperazine Edisylate 10 mg 07/07/22 01:11 07/07/22 01:32 Prochlorperazine Edisylate 10 Mg/2 Ml Vial IVPUSH 07/07/22 01:12 10 mg ONCE ONE Administration <Sharath Styles MD - Last Filed: 07/07/22 02:18> Medications Administered Discontinued Medications Generic Name Dose Route Start Last Admin Trade Name Livanq PRN Reason Stop Dose Admin Bisacodyl 10 mg 07/06/22 23:01 07/06/22 23:14 Bisacodyl 5 Mg Tablet.Dr PO 07/06/22 23:02 10 mg ONCE ONE Administration Sodium Chloride 1,000 mls @ 999 mls/hr 07/06/22 20:48 07/06/22 22:03 Ns IV 07/06/22 21:48 Infused .Q1H1M ONE Infusion Sodium Chloride 1,000 mls @ 999 mls/hr 07/07/22 01:12 07/07/22 04:42 Ns IV 07/07/22 02:12 Infused .Q1H1M ONE Infusion Lorazepam 1 mg 07/07/22 01:39 07/07/22 01:55 Lorazepam 2 Mg/Ml Vial IVPUSH 07/07/22 01:40 1 mg ONCE ONE Administration Magnesium Hydroxide 30 ml 07/06/22 23:01 07/06/22 23:14 Milk Of Magnesia 30 Ml Oral.Susp PO 07/06/22 23:02 30 ml ONCE ONE Administration Morphine Sulfate 4 mg 07/06/22 20:48 07/06/22 20:58 Morphine Sulfate 4 Mg/Ml Cartridge IVPUSH 07/06/22 20:49 4 mg ONCE ONE Administration Protocol Ondansetron HCl 4 mg 07/06/22 20:48 07/06/22 20:58 Ondansetron Hcl 4 Mg/2 Ml Vial IVPUSH 07/06/22 20:49 4 mg ONCE ONE Administration Ondansetron HCl 4 mg 07/06/22 23:37 07/06/22 23:47 Ondansetron Hcl 4 Mg/2 Ml Vial IVPUSH 07/06/22 23:38 4 mg ONCE ONE Administration Prochlorperazine Edisylate 10 mg 07/07/22 01:11 07/07/22 01:32 Prochlorperazine Edisylate 10 Mg/2 Ml Vial IVPUSH 07/07/22 01:12 10 mg ONCE ONE Administration <Nuria Russell MD - Last Filed: 07/07/22 05:35> Discharge Plan Discharge Clinical Impression: Intractable vomiting, Constipation, Abdominal pain <SLOAN Cook - Last Filed: 07/06/22 19:28> Patient Disposition: Left Against Medical Advice <SLOAN Cook - Last Filed: 07/06/22 19:28> Instructions: Constipation (ED), Acute Nausea and Vomiting (ED) <SLOAN Coko - Last Filed: 07/06/22 19:28> Additional Instructions: Drink plenty of fluid Medication as advised for nausea/vomiting Take stool softener as prescribed Follow with PCP <SLOAN Cook - Last Filed: 07/06/22 19:28> Prescriptions: New ondansetron 4 mg tablet,disintegrating 4 mg PO Q6-8H PRN (Reason: nausea and vomiting) Qty: 7 0RF polyethylene glycol 3350 [Miralax] 17 gram/dose powder 17 g PO DAILY Qty: 510 0RF No Action Flovent HFA 110 mcg/actuation HFA aerosol inhaler 2 puff inhalation BID Qty: 12 2RF docusate sodium 100 mg capsule 100 mg PO DAILY PRN (Reason: constipation) 30 Days Qty: 30 3RF Rx Instructions: 1 capsule as needed Orally Once a day fluticasone propionate 50 mcg/actuation spray,suspension 1 spray intranasal DAILY Qty: 16 2RF polyethylene glycol 3350 [Miralax] 17 gram/dose powder 17 g PO DAILY 30 Days Qty: 510 3RF Glucerna Hunger Smart Liquid See Rx Instructions .ROUTE .COMPLEX 30 Days Qty: 60 3RF Rx Instructions: Take contents of 1 bottle orally twice a day; tamsulosin 0.4 mg capsule 0.4 mg PO DAILY 30 Days Qty: 30 3RF clotrimazole-betamethasone 1-0.05 % cream 1 appl topical BID 15 Days Qty: 45 0RF aspirin 81 mg tablet,delayed release (DR/EC) 81 mg PO DAILY Qty: 90 3RF insulin glargine [Lantus Solostar U-100 Insulin] 100 unit/mL (3 mL) insulin pen 80 unit subcut BID 30 Days Qty: 48 3RF atorvastatin 80 mg tablet 80 mg PO DAILY Qty: 90 1RF duloxetine 30 mg capsule,delayed release(DR/EC) 30 mg PO DAILY 30 Days Qty: 30 3RF (DME) blood-glucose meter [[employer] Ultra2 Meter] Kit See Rx Instructions .Route Qty: 1 0RF Rx Instructions: As directed- To test blood sugar three times daily insulin lispro [Humalog KwikPen Insulin] 100 unit/mL insulin pen 35 unit subcut BID Qty: 15 3RF paroxetine HCl 40 mg tablet 40 mg PO DAILY Qty: 90 0RF (DME) pen needle, diabetic [Lite Touch Insulin Pen Clark] 31 gauge x 5/16 needle See Rx Instructions .Route Qty: 100 12RF Rx Instructions: Use 3 times daily (DME) lancets [[employer] DelBitbond Lancets] 33 gauge misc See Rx Instructions .Route Qty: 100 12RF Rx Instructions: As directed 3 times a day gabapentin 400 mg capsule 800 mg PO BID Qty: 120 3RF Rx Instructions: take 2 capsules orally twice a day cyanocobalamin (vitamin B-12) 1,000 mcg tablet 1,000 mcg PO DAILY 90 Days Qty: 90 3RF metoprolol tartrate 50 mg tablet 50 mg PO BID Qty: 180 1RF lisinopril 10 mg tablet 10 mg PO DAILY Qty: 90 0RF blood sugar diagnostic Strip 1 strip miscellaneous TID Qty: 100 3RF albuterol sulfate 90 mcg/actuation HFA aerosol inhaler 2 puff PO Q4-6H PRN (Reason: for wheezing) Qty: 8.5 2RF furosemide 20 mg tablet 20 mg PO DAILY PRN (Reason: swelling) dicyclomine 20 mg tablet 20 mg PO QID PRN (Reason: abdominal pain) Qty: 20 0RF amoxicillin-pot clavulanate 875-125 mg tablet 1 tab PO BID Qty: 20 0RF ondansetron HCl 4 mg tablet 4 mg PO Q6H PRN (Reason: nausea and vomiting) Qty: 14 0RF (DME) SHOWER CHAIR See Rx Instructions .Route .MEDSUPPLY Qty: 1 0RF Rx Instructions: As directed (DME) SHOWER CHAIR See Rx Instructions .Route .MEDSUPPLY Qty: 1 0RF Rx Instructions: As directed omeprazole 40 mg capsule,delayed release(DR/EC) 40 mg PO DAILY 30 Days Qty: 30 3RF (DME) insulin syr/ndl U100 half gareth 0.5 mL 30 gauge x 5/16 syringe See Rx Instructions .Route Qty: 100 12RF Rx Instructions: Use 4 times daily cholecalciferol (vitamin D3) 50 mcg (2,000 unit) capsule 50 mcg PO DAILY 90 Days Qty: 90 3RF oxybutynin chloride 10 mg tablet extended release 24hr 10 mg PO DAILY Qty: 90 0RF Trulicity 1.5 mg/0.5 mL pen injector 1.5 mg subcut QWEEK Qty: 2 5RF (DME) blood-glucose meter [OneTouch Ultra2 Meter] Misc See Rx Instructions .ROUTE TID Qty: 1 Rx Instructions: As directed (DME) FreeStyle [place]wona 2 Sensor Kit See Rx Instructions .Route Qty: 2 5RF Rx Instructions: As directed change every 14 days (DME) FreeStyle Iwona 2 [place] Misc See Rx Instructions .Route Qty: 1 0RF Rx Instructions: As directed <SLOAN Cook - Last Filed: 07/06/22 19:28>
[2022-07-06 19:44] VITALS: BP 157/70; PULSE 81; RESP 16; TEMP 36.4; O2SAT 94
[2022-07-06 20:49] LABS: MANUAL DIFF FLAG NO
[2022-07-06 20:53] LABS: Basophils Percent Auto 0.1 % (0-2); Eosinophils Absolute Auto 0.1 X10*3/uL (0.0-0.4); Eosinophils Percent Auto 0.6 % (0-4); Hematocrit 39.4 % (42.0-52.0); Hemoglobin 13.2 g/dl (14.0-18.0); Imm Gran Abs Auto 0.03 X10*3/uL (0.00-0.03); Imm Gran Pct Auto 0.4 % (0.0-0.4); Lymphocytes Absolute Auto 1.5 X10*3/uL (1.2-4.9); Lymphocytes Percent Auto 17.9 % (20-40); Mean Corpuscular HGB Conc 33.5 g/dl (31.0-36.0); Mean Corpuscular Hemoglobin 30.3 pg (27.0-33.0); Mean Corpuscular Volume 90.6 fL (80.0-98.0); Mean Platelet Volume 12.4 fL (9.4-12.4); Monocytes Absolute Auto 0.6 X10*3/uL (0.1-1.2); Monocytes Percent Auto 6.7 % (2-11); Neutrophils Absolute Auto 6.3 x10*3/uL (2.0-8.3); Neutrophils Percent Auto 74.3 % (45-73); Platelet Count 169 X10*3/uL (160-400); Red Blood Count 4.35 X10*6/uL (4.60-5.80); Red Cell Distribution Width 12.2 % (11.0-16.0); White Blood Count 8.5 X10*3/uL (4.8-10.8)
[2022-07-06] MEDS: 0.9 % Sodium Chloride 1,000 ML 999 ML IV (20:57)
[2022-07-06] MEDS: ondansetron HCL 4 MG/2 ML VIAL IVPUSH ×2 (20:58→23:47)
[2022-07-06] MEDS: Morphine Sulfate 4 MG/ML CARTRIDGE IVPUSH (20:58)
[2022-07-06 21:13] LABS: Alanine Aminotransferase 24 U/L (0-40); Alkaline Phosphatase 128 U/L (39-117); Anion Gap 14 (12-20); Aspartate Amino Transferase 31 U/L (5-37); Bilirubin Direct 0.3 mg/dL (0.0-0.5); Bilirubin Total 0.9 mg/dL (0.0-1.0); Blood Urea Nitrogen 15 mg/dL (9-16); Calcium 9.6 mg/dL (8.4-10.2); Carbon Dioxide 28 mmol/L (22-29); Chloride 102 mmol/L (96-108); Creatinine Clr Calc Pharmacy 68.2; Estimated Glomerular Filt Rate > 60; Ethanol < 10 mg/dL; Glucose Random 318 mg/dL (60-115); Lipase 17 U/L (8-78); Magnesium 1.9 mg/dL (1.6-2.6); Sodium 140 mmol/L (135-145); Total Protein 7.4 g/dL (6.5-8.0)
[2022-07-06] MEDS: bisacodyL 5 MG TABLET.DR 10 MG PO (23:14)
[2022-07-06] MEDS: Milk of Magnesia 30 ML ORAL.SUSP PO (23:14)
[2022-07-07] VITALS: BP 156/72; PULSE 90; RESP 18; O2SAT 99
[2022-07-07] MEDS: Prochlorperazine Edisylate 10 MG/2 ML VIAL IVPUSH (01:32)
[2022-07-07] MEDS: 0.9 % Sodium Chloride 1,000 ML 999 ML IV (01:35)
[2022-07-07 01:48] LABS: Appearance Urine Clear; Color Urine Yellow; Glucose Urine UA >=1000 mg/dL (Negative); Leukocyte Esterase Urine Negative (Negative); Nitrite Urine Negative (Negative); UMIC TRIGGER UACC YES; Urine Blood Negative (Negative); Urine Ketones 15 mg/dL (Negative); Urine Protein 100 (2+) mg/dL (Neg-Trace)
[2022-07-07 01:53] LABS: Bacteria Urine None Seen (None Seen); Hyaline Casts Urine 0-2 /LPF (0-2); RBC Urine 0-2 /HPF (0-2); Squamous Epithelial Cell Urine 0-2 /HPF (0-2); WBC Urine 0-5 /HPF (0-5)
[2022-07-07] MEDS: LORazepam 2 MG/ML VIAL 1 MG IVPUSH (01:55)
[2022-07-07 06:00] VITALS: BP 149/62; PULSE 90; RESP 18; O2SAT 100
== END 2022-07-07 06:09 | disposition left against medical advice (07) ==
PROVIDERS: Physician Assistant Medical; Emergency Provider Emergency Medicine; PCP Internal Medicine
DX: R11.10 Vomiting, unspecified (principal); K59.00 Constipation, unspecified; R10.32 Left lower quadrant pain; E11.9 Type 2 diabetes mellitus without complications; I10 Essential (primary) hypertension; E78.00 Pure hypercholesterolemia, unspecified; Z79.899 Other long term (current) drug therapy; Z79.82 Long term (current) use of aspirin; Z79.4 Long term (current) use of insulin; Z79.02 Long term (current) use of antithrombotics/antiplatelets
CPT/HCPCS: 36415; 74176; 80048; 80076; 81001; 82077; 83690; 83735; 85025; 96361; 96374; 96375; 96376; 99285; J2060; J2270; J2405

== ENCOUNTER 2022-07-07 20:23 | Emergency (ER) | payer OTHER, SELFPAY ==
[2022-07-07 20:43] VITALS: BP 147/77; PULSE 79; RESP 18; TEMP 36.8; O2SAT 97; BMI 41.7
[2022-07-07 21:19] LABS: MANUAL DIFF FLAG NO
[2022-07-07 21:21] LABS: Basophils Percent Auto 0.1 % (0-2); Eosinophils Percent Auto 0.4 % (0-4); Hematocrit 37.2 % (42.0-52.0); Hemoglobin 12.5 g/dl (14.0-18.0); Imm Gran Abs Auto 0.02 X10*3/uL (0.00-0.03); Imm Gran Pct Auto 0.2 % (0.0-0.4); Lymphocytes Absolute Auto 1.5 X10*3/uL (1.2-4.9); Lymphocytes Percent Auto 16.2 % (20-40); Mean Corpuscular HGB Conc 33.6 g/dl (31.0-36.0); Mean Corpuscular Hemoglobin 30.3 pg (27.0-33.0); Mean Corpuscular Volume 90.3 fL (80.0-98.0); Mean Platelet Volume 12.2 fL (9.4-12.4); Monocytes Absolute Auto 0.6 X10*3/uL (0.1-1.2); Monocytes Percent Auto 6.6 % (2-11); Neutrophils Percent Auto 76.5 % (45-73); Platelet Count 173 X10*3/uL (160-400); Red Blood Count 4.12 X10*6/uL (4.60-5.80); Red Cell Distribution Width 12.1 % (11.0-16.0); White Blood Count 9.1 X10*3/uL (4.8-10.8)
[2022-07-07 22:07] LABS: Alanine Aminotransferase 23 U/L (0-40); Albumin Level 3.8 g/dL (3.5-5.0); Alkaline Phosphatase 122 U/L (39-117); Aspartate Amino Transferase 27 U/L (5-37); Bilirubin Direct 0.2 mg/dL (0.0-0.5); Bilirubin Total 0.7 mg/dL (0.0-1.0); Blood Urea Nitrogen 13 mg/dL (9-16); Calcium 9.1 mg/dL (8.4-10.2); Carbon Dioxide 28 mmol/L (22-29); Chloride 100 mmol/L (96-108); Creatinine Clr Calc Pharmacy 64.3; Estimated Glomerular Filt Rate 59; Glucose Random 392 mg/dL (60-115); Lipase 15 U/L (8-78); Potassium 4.3 mmol/L (3.3-5.1); Sodium 137 mmol/L (135-145); Total Protein 6.9 g/dL (6.5-8.0)
--- NOTE | 2022-07-07 23:08 | PC.NURSE ---
this rn assumed care of pt @ 2300. poc performed 345. dr grande made aware at this time. no new orders at this time
[2022-07-07 23:09] LABS: Glucose, Whole Blood 345 mg/dL (60-115)
--- NOTE | 2022-07-07 23:26 | ED.ABDPAIN ---
HPI - Abdominal Pain General Chief Complaint: Abdominal Pain Stated Complaint: abd pain Time Seen by Provider: 07/07/22 23:15 Source: patient Mode of arrival: ambulatory Limitations: no limitations History of Present Illness HPI narrative: Patient diabetic with constipation likely gastroparesis been here multiple times for abdominal discomfort had a CT scan done which was negative showed moderate amount of stool was seen here yesterday went home came back again for same symptoms blood sugar on arrival was 392 feel nauseated has not had any bowel movement yet Related Data Home Medications Medication Instructions Recorded Confirmed furosemide 20 mg tablet 20 mg PO DAILY PRN swelling 05/09/20 06/12/22 blood-glucose meter (OneTouch #1 ea 06/12/22 06/12/22 Ultra2 Meter) Previous Rx's Medication Instructions Recorded fluticasone propionate 110 2 puff inhalation BID #12 grams 02/10/20 mcg/actuation HFA aerosol inhaler (Flovent HFA) docusate sodium 100 mg capsule 100 mg PO DAILY PRN constipation 07/17/20 30 days #30 caps SHOWER CHAIR #1 ea 10/05/20 SHOWER CHAIR #1 ea 01/10/21 fluticasone propionate 50 1 spray intranasal DAILY #16 grams 03/16/21 mcg/actuation nasal spray,suspension insulin syr/ndl U100 half gareth 0.5 #100 ea 05/14/21 mL 30 gauge x 5/16 polyethylene glycol 3350 17 17 g PO DAILY 30 days #510 grams 06/26/21 gram/dose oral powder (Miralax) cholecalciferol (vitamin D3) 50 50 mcg PO DAILY 90 days #90 caps 09/07/21 mcg (2,000 unit) capsule nut.tx.gluc.intol,lac-free,soy See Rx Instructions .Route 09/11/21 (Glucerna Hunger Smart oral liquid) .COMPLEX 30 days #60 bottles tamsulosin 0.4 mg capsule 0.4 mg PO DAILY 30 days #30 caps 09/12/21 clotrimazole-betamethasone 1 1 appl topical BID 15 days #45 11/26/21 %-0.05 % topical cream grams aspirin 81 mg tablet,delayed 81 mg PO DAILY #90 tabs 01/14/22 release insulin glargine 100 unit/mL (3 80 unit (0.8 mL) subcut BID 30 01/14/22 mL) subcutaneous pen (Lantus days #48 mL Solostar U-100 Insulin) dulaglutide 1.5 mg/0.5 mL 1.5 mg (0.5 mL) subcut QWEEK #2 mL 01/23/22 subcutaneous pen injector (Trulicity) atorvastatin 80 mg tablet 80 mg PO DAILY #90 tabs 02/19/22 duloxetine 30 mg capsule,delayed 30 mg PO DAILY 30 days #30 caps 02/19/22 release blood-glucose meter ([employer]uch #1 ea 03/12/22 Ultra2 Meter kit) insulin lispro 100 unit/mL 35 unit (0.35 mL) subcut BID #15 mL 03/12/22 subcutaneous pen (Humalog KwikPen (U-100) Insulin) paroxetine HCl 40 mg tablet 40 mg PO DAILY #90 tabs 03/12/22 pen needle, diabetic 31 gauge x #100 ea 03/12/2207/23 (Lite Touch Insulin Pen Merom) lancets 33 gauge (ViacorTouch Delica #100 ea 03/13/22 Lancets) gabapentin 400 mg capsule 800 mg PO BID #120 caps 04/22/22 cyanocobalamin (vitamin B-12) 1,000 mcg PO DAILY 90 days #90 tabs 04/25/22 1,000 mcg tablet metoprolol tartrate 50 mg tablet 50 mg PO BID #180 tabs 04/25/22 oxybutynin chloride 10 mg 10 mg PO DAILY #90 tabs 04/25/22 tablet,extended release 24 hr lisinopril 10 mg tablet 10 mg PO DAILY #90 tabs 05/21/22 blood sugar diagnostic 1 strip miscellaneous TID #100 05/31/22 strips omeprazole 40 mg capsule,delayed 40 mg PO DAILY 30 days #30 caps 06/10/22 release flash glucose scanning reader #1 ea 06/12/22 (FreeStyle [place]wona 2 [place]) flash glucose sensor (GlobalLabStyle #2 ea 06/12/22 Iwona 2 Sensor kit) albuterol sulfate 90 mcg/actuation 2 puff PO Q4-6H PRN for wheezing 07/02/22 aerosol inhaler #8.5 grams amoxicillin 875 mg-potassium 1 tab PO BID #20 tabs 07/05/22 clavulanate 125 mg tablet dicyclomine 20 mg tablet 20 mg PO QID PRN abdominal pain 07/05/22 #20 tabs ondansetron HCl 4 mg tablet 4 mg PO Q6H PRN nausea and 07/06/22 vomiting #14 tabs ondansetron 4 mg disintegrating 4 mg PO Q6-8H PRN nausea and 07/07/22 tablet vomiting #7 tabs polyethylene glycol 3350 17 17 g PO DAILY #510 grams 07/07/22 gram/dose oral powder (Miralax) Allergies Allergy/AdvReac Type Severity Reaction Status Date / Time hydromorphone [Dilaudid] AdvReac Unknown confusion Verified 07/04/22 23:36 From DILAUDID AdvReac Severe CONFUSION/H Uncoded 06/10/22 09:56 ALLUCIATION S From PERCOCET AdvReac Intermediate AGITATION Uncoded 06/10/22 09:56 Review of Systems Review of Systems Yes all other systems are reviewed and are negative FORMERLY [facility], [facility] Past Medical History Medical History Benign essential hypertension Benign prostatic hyperplasia with urinary frequency Constipation Coronary artery disease Diabetes mellitus Diabetic polyneuropathy Hyperkalemia Intertrigo Major depressive disorder, recurrent Obesity (BMI 30-39.9) Obstructive sleep apnea Pure hypercholesterolemia Vitamin B12 deficiency Vitamin D deficiency Surgical History History of prostate surgery (~12/04/10) History of quadruple bypass (~2005) Hx of cataract extraction (~2011) Hx of cholecystectomy (~2007) Hx of cystoscopy Family History Family History Father Lung cancer Mother Diabetes Hypertension Stomach cancer Social History Social History Household Members: None Housing: Apartment Do you presently have visiting nurse or other home services: No (offered VNA in past and refused) Alcohol intake: never Patient Tobacco Use Status: Former Tobacco user e-Cigarette/Vaping Use: Never Used Second Hand Smoke Exposure: Yes Advance Directives: Yes Advance Directives on File: Yes Advance Directives Date on File: 05/09/20 service: No Current occupational status: disabled Cognitive needs: Yes (cane) Hearing needs: No Vision needs: Yes Physical Exam ED Vital Signs: Vital Signs - 24 hr 07/07/22 20:43 07/07/22 23:27 07/08/22 02:19 Temperature 98.3 F 98.1 F 97.1 F Pulse Rate 79 77 75 Respiratory Rate 18 16 16 Blood Pressure 147/77 H 169/78 H 152/62 H Pulse Oximetry 97 99 96 Oxygen Delivery Method Room Air Room Air BMI result Body Mass Index 41.7 Appearance: Alert. Oriented X3. No acute distress. Eyes: No pallor or icterus ENT: Pharynx normal. Oral Mucosa moist Neck: Normal inspection. Neck supple. CVS: Normal heart rate and rhythm. Pulses normal. Respiratory: No respiratory distress. Equal air entry bilateral, no wheezing/rales/rhonchi Abdomen: Soft , mild diffuse tender Bowel sounds are present, no mass palpable, no CVA tenderness Skin: Skin warm and dry. Normal skin color. Normal skin turgor. Extremities: No lower extremity edema. No calf tenderness Neuro: Oriented X 3. No motor deficit. Medical Decision Making Medical Decision Making [facility] Narrative: Patient with diffuse abdominal pain likely gastroparesis no active vomiting in the ER blood sugar was elevated to 392 which improved after insulin which patient does want to stay in the hospital discharge patient home advised to small amount of meals drink plenty of fluid and take stool softener Lab Data MDM Lab Attestation statement: I reviewed the patient's lab results. 07/07/22 21:14 07/07/22 21:14 Labs: Lab Results 07/07/22 07/07/22 07/07/22 Range/Units 21:14 21:14 23:05 WBC 9.1 (4.8-10.8) X10*3/uL RBC 4.12 L (4.60-5.80) X10*6/uL Hgb 12.5 L (14.0-18.0) g/dl Hct 37.2 L (42.0-52.0) % MCV 90.3 (80.0-98.0) fL MCH 30.3 (27.0-33.0) pg MCHC 33.6 (31.0-36.0) g/dl RDW 12.1 (11.0-16.0) % Plt Count 173 (160-400) X10*3/uL MPV 12.2 (9.4-12.4) fL Immature Gran % (Auto) 0.2 (0.0-0.4) % Neut % (Auto) 76.5 H (45-73) % Lymph % (Auto) 16.2 L (20-40) % [place] % (Auto) 6.6 (2-11) % Eos % (Auto) 0.4 (0-4) % Baso % (Auto) 0.1 (0-2) % Lymph # (Auto) 1.5 (1.2-4.9) X10*3/uL [place] # (Auto) 0.6 (0.1-1.2) X10*3/uL Eos # (Auto) 0.0 (0.0-0.4) X10*3/uL Baso # (Auto) 0.0 (0.0-0.2) X10*3/uL Abs Immat Gran (auto) 0.02 (0.00-0.03) X10*3/uL Absolute Neuts (auto) 7.0 (2.0-8.3) x10*3/uL Absolute Nucleated RBC 0.000 (0.0-0.012) X10*3/uL Nucleated RBC % (auto) 0.0 (0.0-0.2) /100WBC Sodium 137 (135-145) mmol/L Potassium 4.3 (3.3-5.1) mmol/L Chloride 100 (96-108) mmol/L Carbon Dioxide 28 (22-29) mmol/L Anion Gap Not Reportable BUN 13 (9-16) mg/dL Creatinine 1.22 (0.5-1.4) mg/dL Estim Creat Clear Calc 64.3 Estimated GFR 59 POC Glucose 345 H (60-115) mg/dL Random Glucose 392 H* (60-115) mg/dL Calcium 9.1 (8.4-10.2) mg/dL Total Bilirubin 0.7 (0.0-1.0) mg/dL Direct Bilirubin 0.2 (0.0-0.5) mg/dL AST 27 (5-37) U/L ALT 23 (0-40) U/L Alkaline Phosphatase 122 H (39-117) U/L Total Protein 6.9 (6.5-8.0) g/dL Albumin 3.8 (3.5-5.0) g/dL Lipase 15 (8-78) U/L Urine Color Urine Appearance Urine pH (5.0-9.0) Ur Specific [place] (1.005-1.025) Urine Protein (Neg-Trace) mg/dL Urine Glucose (UA) (Negative) mg/dL Urine Ketones (Negative) mg/dL Urine Blood (Negative) Urine Nitrite (Negative) Ur Leukocyte Esterase (Negative) Urine RBC (0-2) /HPF Urine WBC (0-5) /HPF Ur Squamous Epith Cells (0-2) /HPF Urine Bacteria (None Seen) Hyaline Casts (0-2) /LPF 07/07/22 07/08/22 Range/Units 23:34 00:54 WBC (4.8-10.8) X10*3/uL RBC (4.60-5.80) X10*6/uL Hgb (14.0-18.0) g/dl Hct (42.0-52.0) % MCV (80.0-98.0) fL MCH (27.0-33.0) pg MCHC (31.0-36.0) g/dl RDW (11.0-16.0) % Plt Count (160-400) X10*3/uL MPV (9.4-12.4) fL Immature Gran % (Auto) (0.0-0.4) % Neut % (Auto) (45-73) % Lymph % (Auto) (20-40) % [place] % (Auto) (2-11) % Eos % (Auto) (0-4) % Baso % (Auto) (0-2) % Lymph # (Auto) (1.2-4.9) X10*3/uL [place] # (Auto) (0.1-1.2) X10*3/uL Eos # (Auto) (0.0-0.4) X10*3/uL Baso # (Auto) (0.0-0.2) X10*3/uL Abs Immat Gran (auto) (0.00-0.03) X10*3/uL Absolute Neuts (auto) (2.0-8.3) x10*3/uL Absolute Nucleated RBC (0.0-0.012) X10*3/uL Nucleated RBC % (auto) (0.0-0.2) /100WBC Sodium (135-145) mmol/L Potassium (3.3-5.1) mmol/L Chloride (96-108) mmol/L Carbon Dioxide (22-29) mmol/L Anion Gap BUN (9-16) mg/dL Creatinine (0.5-1.4) mg/dL Estim Creat Clear Calc Estimated GFR POC Glucose 338 H (60-115) mg/dL Random Glucose (60-115) mg/dL Calcium (8.4-10.2) mg/dL Total Bilirubin (0.0-1.0) mg/dL Direct Bilirubin (0.0-0.5) mg/dL AST (5-37) U/L ALT (0-40) U/L Alkaline Phosphatase (39-117) U/L Total Protein (6.5-8.0) g/dL Albumin (3.5-5.0) g/dL Lipase (8-78) U/L Urine Color Yellow Urine Appearance Clear Urine pH 6.0 (5.0-9.0) Ur Specific [place] >= 1.030 H (1.005-1.025) Urine Protein 100 (2+) H (Neg-Trace) mg/dL Urine Glucose (UA) >=1000 H (Negative) mg/dL Urine Ketones Trace (Negative) mg/dL Urine Blood Negative (Negative) Urine Nitrite Negative (Negative) Ur Leukocyte Esterase Negative (Negative) Urine RBC 0-2 (0-2) /HPF Urine WBC 0-5 (0-5) /HPF Ur Squamous Epith Cells 0-2 (0-2) /HPF Urine Bacteria None Seen (None Seen) Hyaline Casts 0-2 (0-2) /LPF Medications Administered Discontinued Medications Generic Name Dose Route Start Last Admin Trade Name Freq PRN Reason Stop Dose Admin Insulin Human Lispro 12 unit 07/07/22 23:25 07/07/22 23:46 Insulin Lispro 100 Unit/Ml 3 Ml Vial SUBCUT 07/07/22 23:26 12 unit ONCE ONE Administration Ketorolac Tromethamine 60 mg 07/07/22 23:25 07/07/22 23:39 Ketorolac Tromethamine 60 Mg/2 Ml Vial IM 07/07/22 23:26 60 mg ONCE ONE Administration Magnesium Hydroxide 30 ml 07/07/22 23:25 07/07/22 23:38 Milk Of Magnesia 30 Ml Oral.Susp PO 07/07/22 23:26 30 ml ONCE ONE Administration Metoclopramide HCl 10 mg 07/08/22 01:10 07/08/22 01:20 Metoclopramide Hcl 10 Mg Tablet PO 07/08/22 01:11 10 mg ONCE ONE Administration Polyethylene Glycol 17 gm 07/07/22 23:25 07/07/22 23:38 Polyethylene Glycol 3350 17 Gm Powd.Pack PO 07/07/22 23:26 17 gm ONCE ONE Administration Discharge Plan Discharge Clinical Impression: Diabetes mellitus with gastroparesis Patient Disposition: Home, Self-Care Instructions: Gastroparesis (ED) Additional Instructions: Continue your medications and follow up with PCP Drink plenty of fluids Contin?e con tony medicamentos y francisca un seguimiento con el PCP Beber mucho l?quido Prescriptions: No Action Flovent HFA 110 mcg/actuation HFA aerosol inhaler 2 puff inhalation BID Qty: 12 2RF docusate sodium 100 mg capsule 100 mg PO DAILY PRN (Reason: constipation) 30 Days Qty: 30 3RF Rx Instructions: 1 capsule as needed Orally Once a day fluticasone propionate 50 mcg/actuation spray,suspension 1 spray intranasal DAILY Qty: 16 2RF polyethylene glycol 3350 [Miralax] 17 gram/dose powder 17 g PO DAILY 30 Days Qty: 510 3RF Glucerna Hunger Smart Liquid See Rx Instructions .ROUTE .COMPLEX 30 Days Qty: 60 3RF Rx Instructions: Take contents of 1 bottle orally twice a day; tamsulosin 0.4 mg capsule 0.4 mg PO DAILY 30 Days Qty: 30 3RF clotrimazole-betamethasone 1-0.05 % cream 1 appl topical BID 15 Days Qty: 45 0RF aspirin 81 mg tablet,delayed release (DR/EC) 81 mg PO DAILY Qty: 90 3RF insulin glargine [Lantus Solostar U-100 Insulin] 100 unit/mL (3 mL) insulin pen 80 unit subcut BID 30 Days Qty: 48 3RF atorvastatin 80 mg tablet 80 mg PO DAILY Qty: 90 1RF duloxetine 30 mg capsule,delayed release(DR/EC) 30 mg PO DAILY 30 Days Qty: 30 3RF (DME) blood-glucose meter [[employer] Ultra2 Meter] Kit See Rx Instructions .Route Qty: 1 0RF Rx Instructions: As directed- To test blood sugar three times daily insulin lispro [Humalog KwikPen Insulin] 100 unit/mL insulin pen 35 unit subcut BID Qty: 15 3RF paroxetine HCl 40 mg tablet 40 mg PO DAILY Qty: 90 0RF (DME) pen needle, diabetic [Lite Touch Insulin Pen Merom] 31 gauge x 5/16 needle See Rx Instructions .Route Qty: 100 12RF Rx Instructions: Use 3 times daily (DME) lancets [[employer] Delica Lancets] 33 gauge misc See Rx Instructions .Route Qty: 100 12RF Rx Instructions: As directed 3 times a day gabapentin 400 mg capsule 800 mg PO BID Qty: 120 3RF Rx Instructions: take 2 capsules orally twice a day cyanocobalamin (vitamin B-12) 1,000 mcg tablet 1,000 mcg PO DAILY 90 Days Qty: 90 3RF metoprolol tartrate 50 mg tablet 50 mg PO BID Qty: 180 1RF lisinopril 10 mg tablet 10 mg PO DAILY Qty: 90 0RF blood sugar diagnostic Strip 1 strip miscellaneous TID Qty: 100 3RF albuterol sulfate 90 mcg/actuation HFA aerosol inhaler 2 puff PO Q4-6H PRN (Reason: for wheezing) Qty: 8.5 2RF furosemide 20 mg tablet 20 mg PO DAILY PRN (Reason: swelling) dicyclomine 20 mg tablet 20 mg PO QID PRN (Reason: abdominal pain) Qty: 20 0RF amoxicillin-pot clavulanate 875-125 mg tablet 1 tab PO BID Qty: 20 0RF ondansetron HCl 4 mg tablet 4 mg PO Q6H PRN (Reason: nausea and vomiting) Qty: 14 0RF ondansetron 4 mg tablet,disintegrating 4 mg PO Q6-8H PRN (Reason: nausea and vomiting) Qty: 7 0RF polyethylene glycol 3350 [Miralax] 17 gram/dose powder 17 g PO DAILY Qty: 510 0RF (DME) SHOWER CHAIR See Rx Instructions .Route .MEDSUPPLY Qty: 1 0RF Rx Instructions: As directed (DME) SHOWER CHAIR See Rx Instructions .Route .MEDSUPPLY Qty: 1 0RF Rx Instructions: As directed omeprazole 40 mg capsule,delayed release(DR/EC) 40 mg PO DAILY 30 Days Qty: 30 3RF (DME) insulin syr/ndl U100 half gareth 0.5 mL 30 gauge x 5/16 syringe See Rx Instructions .Route Qty: 100 12RF Rx Instructions: Use 4 times daily cholecalciferol (vitamin D3) 50 mcg (2,000 unit) capsule 50 mcg PO DAILY 90 Days Qty: 90 3RF oxybutynin chloride 10 mg tablet extended release 24hr 10 mg PO DAILY Qty: 90 0RF Trulicity 1.5 mg/0.5 mL pen injector 1.5 mg subcut QWEEK Qty: 2 5RF (DME) blood-glucose meter [OneTouch Ultra2 Meter] Misc See Rx Instructions .ROUTE TID Qty: 1 Rx Instructions: As directed (DME) FreeStyle Iwona 2 Sensor Kit See Rx Instructions .Route Qty: 2 5RF Rx Instructions: As directed change every 14 days (DME) FreeStyle Iwona 2 [place] Misc See Rx Instructions .Route Qty: 1 0RF Rx Instructions: As directed Print Language: [place]
[2022-07-07 23:27] VITALS: BP 169/78; PULSE 77; RESP 16; TEMP 36.7; O2SAT 99
[2022-07-07] MEDS: Milk of Magnesia 30 ML ORAL.SUSP PO (23:38)
[2022-07-07] MEDS: polyethylene glycoL 3350 17 GM POWD.PACK PO (23:38)
[2022-07-07] MEDS: Ketorolac Tromethamine 60 MG/2 ML VIAL IM (23:39)
[2022-07-07 23:41] LABS: Appearance Urine Clear; Color Urine Yellow; Glucose Urine UA >=1000 mg/dL (Negative); Leukocyte Esterase Urine Negative (Negative); Nitrite Urine Negative (Negative); Specific Gravity - Urine >= 1.030 (1.005-1.025); UMIC TRIGGER UACC YES; Urine Blood Negative (Negative); Urine Ketones Trace mg/dL (Negative); Urine Protein 100 (2+) mg/dL (Neg-Trace)
[2022-07-07 23:46] LABS: Bacteria Urine None Seen (None Seen); Hyaline Casts Urine 0-2 /LPF (0-2); RBC Urine 0-2 /HPF (0-2); Squamous Epithelial Cell Urine 0-2 /HPF (0-2); WBC Urine 0-5 /HPF (0-5)
[2022-07-07] MEDS: Insulin Lispro 100 UNIT/ML 3 ML VIAL 12 UNIT SUBCUT (23:46)
[2022-07-08 00:58] LABS: Glucose, Whole Blood 338 mg/dL (60-115)
[2022-07-08] MEDS: Metoclopramide HCl 10 MG TABLET PO (01:20)
--- NOTE | 2022-07-08 02:15 | PC.NURSE ---
late entry- pt ambulatory to restroom. pt unsteady while walking. pt states he is always unsteady. this rn assisted pt back into bed
[2022-07-08 02:19] VITALS: BP 152/62; PULSE 75; RESP 16; TEMP 36.2; O2SAT 96
--- NOTE | 2022-07-08 03:30 | PC.NURSE ---
pt reports to bangladeshi speaking rn that he wants to be directly admitted. dr grande and dr saini at pt bedside. pt states that he wants to leave . dr grande placed pt up for discharge
--- NOTE | 2022-07-08 03:40 | PC.NURSE ---
pr provided with discharge packet. pt verbalized understanding. pt states he needed a wheelchair to be brought to waiting room. this rn assised pt in wheelchair to waiting room pt asked this rn to wheel him to his car. this rn educated pt that could not do that. pt walked using own cane to car. charge account identification clerk made aware
== END 2022-07-08 03:45 | disposition home or self-care (01) ==
PROVIDERS: Emergency Provider Internal Medicine; PCP Internal Medicine
DX: E11.43 Type 2 diabetes mellitus with diabetic autonomic (poly)neuropathy (principal); Z79.899 Other long term (current) drug therapy; Z87.891 Personal history of nicotine dependence; Z79.4 Long term (current) use of insulin
CPT/HCPCS: 36415; 80053; 81001; 82248; 82947; 83690; 85025; 96372; 99284; J1885

== ENCOUNTER 2022-07-14 01:01 | Emergency (ER) | payer OTHER, SELFPAY ==
[2022-07-14 01:13] VITALS: BP 146/78; PULSE 84; O2SAT 96
[2022-07-14 01:17] VITALS: BP 138/65; PULSE 83; RESP 17; TEMP 36.6; O2SAT 94
[2022-07-14 01:28] VITALS: BMI 40.6
[2022-07-14 04:24] VITALS: BP 148/59; PULSE 78; RESP 17; TEMP 36.5; O2SAT 95
--- NOTE | 2022-07-14 06:34 | ED.ABDPAIN ---
HPI - Abdominal Pain General Chief Complaint: Abdominal Pain Stated Complaint: abd pain Time Seen by Provider: 07/14/22 06:28 Source: patient, RN notes reviewed and old records reviewed Mode of arrival: ambulatory Limitations: no limitations History of Present Illness HPI narrative: 67-year-old male with history of obesity, diabetes, polyneuropathy, JAIME, HTN, HLD, CAD, lymphedema, BPH who presents to the ER for evaluation for the 5th time in a week and a half for evaluation of abdominal pain and nausea. patient reports he did have 1 episode of vomiting yesterday. States the pain is mostly in his lower abdomen and comes and goes. He currently has no pain or nausea. he states he is hungry. He feels like his sugar is getting low. He states he has had CT scans and x-rays along with blood work done here and [facility] over the last week and a half. He was told he has gastroparesis but was not given any medications for this. He states he has been constipated but did have a small bowel movement here earlier. No vomiting today. No fevers. No urinary symptoms. MD elicited complaint: abdominal pain Onset (ago): week(s) (1.5) Pain Consistency: intermittent Location: diffuse Severity: moderate Quality: cramping and aching Radiation: none Migration to: no migration Exacerbating factors: nothing Relieving factors: nothing Context: history of similar episodes Associated symptoms: nausea, vomiting and chills Related Data Home Medications Medication Instructions Recorded Confirmed furosemide 20 mg tablet 20 mg PO DAILY PRN swelling 05/09/20 06/12/22 blood-glucose meter (OneTouch #1 ea 06/12/22 06/12/22 Ultra2 Meter) Previous Rx's Medication Instructions Recorded fluticasone propionate 110 2 puff inhalation BID #12 grams 02/10/20 mcg/actuation HFA aerosol inhaler (Flovent HFA) docusate sodium 100 mg capsule 100 mg PO DAILY PRN constipation 07/17/20 30 days #30 caps SHOWER CHAIR #1 ea 10/05/20 SHOWER CHAIR #1 ea 01/10/21 fluticasone propionate 50 1 spray intranasal DAILY #16 grams 03/16/21 mcg/actuation nasal spray,suspension insulin syr/ndl U100 half gareth 0.5 #100 ea 05/14/21 mL 30 gauge x 5/16 polyethylene glycol 3350 17 17 g PO DAILY 30 days #510 grams 06/26/21 gram/dose oral powder (Miralax) cholecalciferol (vitamin D3) 50 50 mcg PO DAILY 90 days #90 caps 09/07/21 mcg (2,000 unit) capsule nut.tx.gluc.intol,lac-free,soy See Rx Instructions .Route 09/11/21 (Glucerna Hunger Smart oral liquid) .COMPLEX 30 days #60 bottles tamsulosin 0.4 mg capsule 0.4 mg PO DAILY 30 days #30 caps 09/12/21 clotrimazole-betamethasone 1 1 appl topical BID 15 days #45 11/26/21 %-0.05 % topical cream grams aspirin 81 mg tablet,delayed 81 mg PO DAILY #90 tabs 01/14/22 release insulin glargine 100 unit/mL (3 80 unit (0.8 mL) subcut BID 30 01/14/22 mL) subcutaneous pen (Lantus days #48 mL Solostar U-100 Insulin) dulaglutide 1.5 mg/0.5 mL 1.5 mg (0.5 mL) subcut QWEEK #2 mL 01/23/22 subcutaneous pen injector (TrEquidam) atorvastatin 80 mg tablet 80 mg PO DAILY #90 tabs 02/19/22 duloxetine 30 mg capsule,delayed 30 mg PO DAILY 30 days #30 caps 02/19/22 release blood-glucose meter (Microventuresuch #1 ea 03/12/22 Ultra2 Meter kit) insulin lispro 100 unit/mL 35 unit (0.35 mL) subcut BID #15 mL 03/12/22 subcutaneous pen (Humalog KwikPen (U-100) Insulin) pen needle, diabetic 31 gauge x #100 ea 03/12/2207/23 (Lite Touch Insulin Pen [place]) lancets 33 gauge (OneTouch Delica #100 ea 03/13/22 Lancets) gabapentin 400 mg capsule 800 mg PO BID #120 caps 04/22/22 cyanocobalamin (vitamin B-12) 1,000 mcg PO DAILY 90 days #90 tabs 04/25/22 1,000 mcg tablet metoprolol tartrate 50 mg tablet 50 mg PO BID #180 tabs 04/25/22 oxybutynin chloride 10 mg 10 mg PO DAILY #90 tabs 04/25/22 tablet,extended release 24 hr lisinopril 10 mg tablet 10 mg PO DAILY #90 tabs 05/21/22 blood sugar diagnostic 1 strip miscellaneous TID #100 05/31/22 strips omeprazole 40 mg capsule,delayed 40 mg PO DAILY 30 days #30 caps 06/10/22 release flash glucose scanning reader #1 ea 06/12/22 (FreeStyle [place] 2 [place]) flash glucose sensor (FreeStyle #2 ea 06/12/22 Iwona 2 Sensor kit) albuterol sulfate 90 mcg/actuation 2 puff PO Q4-6H PRN for wheezing 07/02/22 aerosol inhaler #8.5 grams amoxicillin 875 mg-potassium 1 tab PO BID #20 tabs 07/05/22 clavulanate 125 mg tablet dicyclomine 20 mg tablet 20 mg PO QID PRN abdominal pain 07/05/22 #20 tabs ondansetron HCl 4 mg tablet 4 mg PO Q6H PRN nausea and 07/06/22 vomiting #14 tabs ondansetron 4 mg disintegrating 4 mg PO Q6-8H PRN nausea and 07/07/22 tablet vomiting #7 tabs polyethylene glycol 3350 17 17 g PO DAILY #510 grams 07/07/22 gram/dose oral powder (Miralax) paroxetine HCl 40 mg tablet 40 mg PO DAILY #90 tabs 07/12/22 metoclopramide HCl 10 mg tablet 10 mg PO AC PRN nausea and 07/14/22 (Reglan) vomiting #20 tabs polyethylene glycol 3350 17 gram 17 g PO DAILY #14 ea 07/14/22 oral powder packet (Miralax) Allergies Allergy/AdvReac Type Severity Reaction Status Date / Time hydromorphone [Dilaudid] AdvReac Unknown confusion Verified 07/04/22 23:36 From DILAUDID AdvReac Severe CONFUSION/H Uncoded 06/10/22 09:56 ALLUCIATION S From PERCOCET AdvReac Intermediate AGITATION Uncoded 06/10/22 09:56 Review of Systems Review of Systems Yes all other systems are reviewed and are negative [facility] Past Medical History Medical History Benign essential hypertension Benign prostatic hyperplasia with urinary frequency Constipation Coronary artery disease Diabetes mellitus Diabetic polyneuropathy Hyperkalemia Intertrigo Major depressive disorder, recurrent Obesity (BMI 30-39.9) Obstructive sleep apnea Pure hypercholesterolemia Vitamin B12 deficiency Vitamin D deficiency Surgical History History of prostate surgery (~12/04/10) History of quadruple bypass (~2005) Hx of cataract extraction (~2011) Hx of cholecystectomy (~2007) Hx of cystoscopy Family History Family History Father Lung cancer Mother Diabetes Hypertension Stomach cancer Social History Social History Household Members: None Housing: Apartment Do you presently have visiting nurse or other home services: No (offered VNA in past and refused) Alcohol intake: former Patient Tobacco Use Status: Former Tobacco user Smoked in Last 30 Days: No e-Cigarette/Vaping Use: Never Used Second Hand Smoke Exposure: Yes Advance Directives: Yes Advance Directives on File: Yes Advance Directives Date on File: 05/09/20 service: No Current occupational status: disabled Cognitive needs: Yes (cane) Hearing needs: No Vision needs: Yes Physical Exam ED Vital Signs: Vital Signs - 24 hr 07/14/22 01:17 07/14/22 04:24 07/14/22 07:20 Temperature 97.8 F 97.7 F 98.3 F Pulse Rate 83 78 78 Respiratory Rate 17 17 15 Blood Pressure 138/65 148/59 H 147/85 H Pulse Oximetry 94 95 96 Oxygen Delivery Method Room Air Room Air Room Air BMI result Body Mass Index 40.6 Appearance: Alert. Oriented X3. No acute distress. Head: normocephalic, atraumatic. Eyes: Pupils equal, round and reactive to light. ENT: Pharynx normal. No tonsillar swelling or exudate. Neck: Normal inspection. Neck supple. CVS: Normal heart rate and rhythm. Pulses normal. Respiratory: No respiratory distress. Breath sounds normal. Abdomen: Obese, Soft with mild bilateral lower abdominal tenderness to deep palpation onlywithout rebound or guarding, normal active +BS x4 Skin: Skin warm and dry. Normal skin color. Normal skin turgor. No rashes. Extremities: No lower extremity edema. No joint swelling. Neuro/psych: Oriented X 3. No motor deficit. No sensory deficit. CN II-XII intact. Normal speech and cognition. Medical Decision Making Medical Decision Making [facility] Narrative: 67 y/o male with history of DM, BPH, overactive bladder, ED, depression, constipation, obesity, HTN, polyneuropathy, CAD, HLD who presernts to the ER for evaluation of nausea and abdominal pain for the lasts several days. Patient has been here 4 times in the last week and also went to [facility] where patient was diagnosed with gastroparesis and constipation. He states he has not gotten any medications for this. He reports 1 episode of vomiting yesterday. he had a small bowel movement today. He has normoactive bowel sounds on examination, doubt obstruction. He has no leukocytosis, doubt diverticulitis. CT scan done few days ago showing moderate constipation. He has not taken any laxatives. He has not tried Reglan for gastroparesis. Will plan to start laxatives and Reglan. Advised him to stick to a bland diet well is not feeling well. Advised him to follow-up with his primary care doctor and will have him follow-up with GI given his recurrence symptoms. At this time he is tolerating p.o., stable for discharge home. arc trimmer used to discuss diagnosis and plan. All questions were answered Differential Diagnosis Differential Diagnoses: The differential diagnosis associated with the presentation includes diabetic gastroparesis, colitis, diverticulitis, gastroenteritis, UTI, IBS, food intolerance, doubt appendicitis or cholecystitis or SBO Admission/Observation Consideration of admission/observation: Escalation of care including admission/observation considered multiple visits for abd pain, considered admission for intractable pain but he improved Lab Data [facility] Lab Attestation statement: I reviewed the patient's lab results. Stable anemia and thrombocytopenia, no leukocytosis. Labs otherwise unremarkable. 07/14/22 07:17 07/14/22 07:17 Labs: Lab Results 07/14/22 07/14/22 07/14/22 Range/Units 07:17 07:17 07:55 WBC 6.7 (4.8-10.8) X10*3/uL RBC 3.79 L (4.60-5.80) X10*6/uL Hgb 11.5 L (14.0-18.0) g/dl Hct 34.9 L (42.0-52.0) % MCV 92.1 (80.0-98.0) fL MCH 30.3 (27.0-33.0) pg MCHC 33.0 (31.0-36.0) g/dl RDW 12.7 (11.0-16.0) % Plt Count 130 L (160-400) X10*3/uL MPV 12.0 (9.4-12.4) fL Immature Gran % (Auto) 0.1 (0.0-0.4) % Neut % (Auto) 66.6 (45-73) % Lymph % (Auto) 23.1 (20-40) % Maries % (Auto) 10.0 (2-11) % Eos % (Auto) 0.1 (0-4) % Baso % (Auto) 0.1 (0-2) % Lymph # (Auto) 1.5 (1.2-4.9) X10*3/uL Maries # (Auto) 0.7 (0.1-1.2) X10*3/uL Eos # (Auto) 0.0 (0.0-0.4) X10*3/uL Baso # (Auto) 0.0 (0.0-0.2) X10*3/uL Abs Immat Gran (auto) 0.01 (0.00-0.03) X10*3/uL Absolute Neuts (auto) 4.4 (2.0-8.3) x10*3/uL Absolute Nucleated RBC 0.000 (0.0-0.012) X10*3/uL Nucleated RBC % (auto) 0.0 (0.0-0.2) /100WBC Sodium 138 (135-145) mmol/L Potassium 4.4 (3.3-5.1) mmol/L Chloride 103 (96-108) mmol/L Carbon Dioxide 31 H (22-29) mmol/L Anion Gap 8 L (12-20) BUN 19 H (9-16) mg/dL Creatinine 0.89 (0.5-1.4) mg/dL Estim Creat Clear Calc 86.9 Estimated GFR > 60 POC Glucose (60-115) mg/dL Random Glucose 75 (60-115) mg/dL Calcium 8.4 D (8.4-10.2) mg/dL Magnesium 2.0 (1.6-2.6) mg/dL Total Bilirubin 0.8 (0.0-1.0) mg/dL Direct Bilirubin 0.3 (0.0-0.5) mg/dL AST 29 (5-37) U/L ALT 25 (0-40) U/L Alkaline Phosphatase 85 (39-117) U/L Total Protein 6.0 L (6.5-8.0) g/dL Albumin 3.2 L (3.5-5.0) g/dL Lipase 12 (8-78) U/L Urine Color Yellow Urine Appearance Clear Urine pH 8.0 (5.0-9.0) Ur Specific [place] 1.015 (1.005-1.025) Urine Protein 30 (1+) H (Neg-Trace) mg/dL Urine Glucose (UA) Negative (Negative) mg/dL Urine Ketones Negative (Negative) mg/dL Urine Blood Negative (Negative) Urine Nitrite Negative (Negative) Ur Leukocyte Esterase Negative (Negative) Urine RBC 0-2 (0-2) /HPF Urine WBC 0-5 (0-5) /HPF Ur Squamous Epith Cells 0-2 (0-2) /HPF Urine Bacteria None Seen (None Seen) Hyaline Casts 0-2 (0-2) /LPF 07/14/22 Range/Units 07:55 WBC (4.8-10.8) X10*3/uL RBC (4.60-5.80) X10*6/uL Hgb (14.0-18.0) g/dl Hct (42.0-52.0) % MCV (80.0-98.0) fL MCH (27.0-33.0) pg MCHC (31.0-36.0) g/dl RDW (11.0-16.0) % Plt Count (160-400) X10*3/uL MPV (9.4-12.4) fL Immature Gran % (Auto) (0.0-0.4) % Neut % (Auto) (45-73) % Lymph % (Auto) (20-40) % Maries % (Auto) (2-11) % Eos % (Auto) (0-4) % Baso % (Auto) (0-2) % Lymph # (Auto) (1.2-4.9) X10*3/uL Maries # (Auto) (0.1-1.2) X10*3/uL Eos # (Auto) (0.0-0.4) X10*3/uL Baso # (Auto) (0.0-0.2) X10*3/uL Abs Immat Gran (auto) (0.00-0.03) X10*3/uL Absolute Neuts (auto) (2.0-8.3) x10*3/uL Absolute Nucleated RBC (0.0-0.012) X10*3/uL Nucleated RBC % (auto) (0.0-0.2) /100WBC Sodium (135-145) mmol/L Potassium (3.3-5.1) mmol/L Chloride (96-108) mmol/L Carbon Dioxide (22-29) mmol/L Anion Gap (12-20) BUN (9-16) mg/dL Creatinine (0.5-1.4) mg/dL Estim Creat Clear Calc Estimated GFR POC Glucose 61 (60-115) mg/dL Random Glucose (60-115) mg/dL Calcium (8.4-10.2) mg/dL Magnesium (1.6-2.6) mg/dL Total Bilirubin (0.0-1.0) mg/dL Direct Bilirubin (0.0-0.5) mg/dL AST (5-37) U/L ALT (0-40) U/L Alkaline Phosphatase (39-117) U/L Total Protein (6.5-8.0) g/dL Albumin (3.5-5.0) g/dL Lipase (8-78) U/L Urine Color Urine Appearance Urine pH (5.0-9.0) Ur Specific [place] (1.005-1.025) Urine Protein (Neg-Trace) mg/dL Urine Glucose (UA) (Negative) mg/dL Urine Ketones (Negative) mg/dL Urine Blood (Negative) Urine Nitrite (Negative) Ur Leukocyte Esterase (Negative) Urine RBC (0-2) /HPF Urine WBC (0-5) /HPF Ur Squamous Epith Cells (0-2) /HPF Urine Bacteria (None Seen) Hyaline Casts (0-2) /LPF Radiology Impression Discussion of test interpretation with radiology: I have reviewed the radiologist's reading. Radiologist Impression: CT/CT abdomen pelvis wo IV con 07/06/22 IMPRESSION: 1.? No acute intra-abdominal or pelvic abnormalities to explain the patient's symptoms. 2.? Colonic diverticulosis but no evidence of acute diverticulitis. 3.? Moderate degree of colonic and rectal stool content suggesting constipation. 4.? Incidentally noted 5 mm pulmonary nodule in the right lower lobe. According to the UPDATED 2017 Fleischner Society recommendations, the advised followup imaging for solid nodules < 6 mm is: External Record Review External record reviewed: Office record, Outpatient record, Prior outpatient labs and Prior outpatient radiology Prescription Management I considered prescription management with: Other ( Antispasmodics, antiemetics, laxatives) Chronic Conditions Patient?s care impacted by: Diabetes Medications Administered Discontinued Medications Generic Name Dose Route Start Last Admin Trade Name Freq PRN Reason Stop Dose Admin Docusate Sodium 100 mg 07/14/22 08:29 07/14/22 09:10 Docusate Sodium 100 Mg Capsule PO 07/14/22 08:30 100 mg ONCE ONE Administration Metoclopramide HCl 10 mg 07/14/22 08:29 07/14/22 09:10 Metoclopramide Hcl 10 Mg Tablet PO 07/14/22 08:30 10 mg ONCE ONE Administration Polyethylene Glycol 17 gm 07/14/22 08:29 07/14/22 09:10 Polyethylene Glycol 3350 17 Gm Powd.Pack PO 07/14/22 08:30 17 gm ONCE ONE Administration Critical Care Time Critical Care Time Critical Care Time: No Discharge Plan Discharge Clinical Impression: Abdominal pain, Constipation Patient Disposition: Home, Self-Care Instructions: Diabetic Gastroparesis (DC), Constipation (DC) Additional Instructions: Your lab workup today is unremarkable. Your CT scan last week showed constipation. Recommend taking the prescribed laxative daily. Increase her fiber intake and drink plenty of water. It is important to keep her sugars under control. When your sugars are out of control you can have delayed gastric emptying which can make you nauseous and have abdominal pain. Follow-up with your primary care doctor. Also recommend following up with GI given your ongoing symptoms and multiple ER visits for this. Name and number below. Call for an appointment. If you develop new or worsening symptoms call 911 or come back to the ER for further evaluation. Louise an?eduardo de laboratorio de hoy no tiene nada especial. Louise tomograf?a computarizada la semana pasada mostr? estre?imiento. Se recomienda lynn diariamente el laxante prescrito. Aumente louise consumo de fibra y jackson pauline agua. Es importante mantener tony az?cares bajo control. Cuando tony az?cares est?n fuera de control, puede tener un retraso en el vaciamiento g?strico, lo que puede causarle n?useas y dolor abdominal. Seguimiento con louise m?dico de atenci?n primaria. Tambi?n recomiende hacer un seguimiento con GI dados tony s?ntomas continuos y m?ltiples visitas a la spring de emergencias para esto. Nombre y n?kaley a continuaci?n. Llame para virginia jil. Si desarrolla s?ntomas nuevos o que empeoran, llame al 911 o regrese a la spring de emergencias para virginia evaluaci?n adicional. Prescriptions: New metoclopramide HCl [Reglan] 10 mg tablet 10 mg PO AC PRN (Reason: nausea and vomiting) Qty: 20 0RF polyethylene glycol 3350 [Miralax] 17 gram powder in packet 17 g PO DAILY Qty: 14 0RF No Action Flovent HFA 110 mcg/actuation HFA aerosol inhaler 2 puff inhalation BID Qty: 12 2RF docusate sodium 100 mg capsule 100 mg PO DAILY PRN (Reason: constipation) 30 Days Qty: 30 3RF Rx Instructions: 1 capsule as needed Orally Once a day fluticasone propionate 50 mcg/actuation spray,suspension 1 spray intranasal DAILY Qty: 16 2RF polyethylene glycol 3350 [Miralax] 17 gram/dose powder 17 g PO DAILY 30 Days Qty: 510 3RF Glucerna Hunger Smart Liquid See Rx Instructions .ROUTE .COMPLEX 30 Days Qty: 60 3RF Rx Instructions: Take contents of 1 bottle orally twice a day; tamsulosin 0.4 mg capsule 0.4 mg PO DAILY 30 Days Qty: 30 3RF clotrimazole-betamethasone 1-0.05 % cream 1 appl topical BID 15 Days Qty: 45 0RF aspirin 81 mg tablet,delayed release (DR/EC) 81 mg PO DAILY Qty: 90 3RF insulin glargine [Lantus Solostar U-100 Insulin] 100 unit/mL (3 mL) insulin pen 80 unit subcut BID 30 Days Qty: 48 3RF atorvastatin 80 mg tablet 80 mg PO DAILY Qty: 90 1RF duloxetine 30 mg capsule,delayed release(DR/EC) 30 mg PO DAILY 30 Days Qty: 30 3RF (DME) blood-glucose meter [TVA Medical Ultra2 Meter] Kit See Rx Instructions .Route Qty: 1 0RF Rx Instructions: As directed- To test blood sugar three times daily insulin lispro [Humalog KwikPen Insulin] 100 unit/mL insulin pen 35 unit subcut BID Qty: 15 3RF (DME) pen needle, diabetic [Lite Touch Insulin Pen [place]] 31 gauge x 5/16 needle See Rx Instructions .Route Qty: 100 12RF Rx Instructions: Use 3 times daily (DME) lancets [TVA Medical Delica Lancets] 33 gauge misc See Rx Instructions .Route Qty: 100 12RF Rx Instructions: As directed 3 times a day gabapentin 400 mg capsule 800 mg PO BID Qty: 120 3RF Rx Instructions: take 2 capsules orally twice a day cyanocobalamin (vitamin B-12) 1,000 mcg tablet 1,000 mcg PO DAILY 90 Days Qty: 90 3RF metoprolol tartrate 50 mg tablet 50 mg PO BID Qty: 180 1RF lisinopril 10 mg tablet 10 mg PO DAILY Qty: 90 0RF blood sugar diagnostic Strip 1 strip miscellaneous TID Qty: 100 3RF albuterol sulfate 90 mcg/actuation HFA aerosol inhaler 2 puff PO Q4-6H PRN (Reason: for wheezing) Qty: 8.5 2RF paroxetine HCl 40 mg tablet 40 mg PO DAILY Qty: 90 0RF furosemide 20 mg tablet 20 mg PO DAILY PRN (Reason: swelling) dicyclomine 20 mg tablet 20 mg PO QID PRN (Reason: abdominal pain) Qty: 20 0RF amoxicillin-pot clavulanate 875-125 mg tablet 1 tab PO BID Qty: 20 0RF ondansetron HCl 4 mg tablet 4 mg PO Q6H PRN (Reason: nausea and vomiting) Qty: 14 0RF ondansetron 4 mg tablet,disintegrating 4 mg PO Q6-8H PRN (Reason: nausea and vomiting) Qty: 7 0RF polyethylene glycol 3350 [Miralax] 17 gram/dose powder 17 g PO DAILY Qty: 510 0RF (DME) SHOWER CHAIR See Rx Instructions .Route .MEDSUPPLY Qty: 1 0RF Rx Instructions: As directed (DME) SHOWER CHAIR See Rx Instructions .Route .MEDSUPPLY Qty: 1 0RF Rx Instructions: As directed omeprazole 40 mg capsule,delayed release(DR/EC) 40 mg PO DAILY 30 Days Qty: 30 3RF (DME) insulin syr/ndl U100 half gareth 0.5 mL 30 gauge x 5/16 syringe See Rx Instructions .Route Qty: 100 12RF Rx Instructions: Use 4 times daily cholecalciferol (vitamin D3) 50 mcg (2,000 unit) capsule 50 mcg PO DAILY 90 Days Qty: 90 3RF oxybutynin chloride 10 mg tablet extended release 24hr 10 mg PO DAILY Qty: 90 0RF Trulicity 1.5 mg/0.5 mL pen injector 1.5 mg subcut QWEEK Qty: 2 5RF (DME) blood-glucose meter [OneTouch Ultra2 Meter] [facility] [place] See Rx Instructions .ROUTE TID Qty: 1 Rx Instructions: As directed (DME) FreeStyle [place] 2 Sensor Kit See Rx Instructions .Route Qty: 2 5RF Rx Instructions: As directed change every 14 days (DME) FreeStyle [place] 2 [place] [facility] [place] See Rx Instructions .Route Qty: 1 0RF Rx Instructions: As directed Referrals: [facility] [place] [facility]ology Services [Provider Group] (diabetic gastroparesis, constipation) Print Language: Kyrgyz
[2022-07-14 07:20] VITALS: BP 147/85; PULSE 78; RESP 15; TEMP 36.8; O2SAT 96
[2022-07-14 07:25] LABS: MANUAL DIFF FLAG NO
[2022-07-14 07:31] LABS: Basophils Percent Auto 0.1 % (0-2); Eosinophils Percent Auto 0.1 % (0-4); Hematocrit 34.9 % (42.0-52.0); Hemoglobin 11.5 g/dl (14.0-18.0); Imm Gran Abs Auto 0.01 X10*3/uL (0.00-0.03); Imm Gran Pct Auto 0.1 % (0.0-0.4); Lymphocytes Absolute Auto 1.5 X10*3/uL (1.2-4.9); Lymphocytes Percent Auto 23.1 % (20-40); Mean Corpuscular Hemoglobin 30.3 pg (27.0-33.0); Mean Corpuscular Volume 92.1 fL (80.0-98.0); Monocytes Absolute Auto 0.7 X10*3/uL (0.1-1.2); Neutrophils Absolute Auto 4.4 x10*3/uL (2.0-8.3); Neutrophils Percent Auto 66.6 % (45-73); Platelet Count 130 X10*3/uL (160-400); Red Blood Count 3.79 X10*6/uL (4.60-5.80); Red Cell Distribution Width 12.7 % (11.0-16.0); White Blood Count 6.7 X10*3/uL (4.8-10.8)
--- NOTE | 2022-07-14 07:38 | PC.NURSE ---
Resumed care of patient this morning, IV placed and labs obtained, awaiting further orders at this time
[2022-07-14 07:52] LABS: Alanine Aminotransferase 25 U/L (0-40); Albumin Level 3.2 g/dL (3.5-5.0); Alkaline Phosphatase 85 U/L (39-117); Anion Gap 8 (12-20); Aspartate Amino Transferase 29 U/L (5-37); Bilirubin Direct 0.3 mg/dL (0.0-0.5); Bilirubin Total 0.8 mg/dL (0.0-1.0); Blood Urea Nitrogen 19 mg/dL (9-16); Calcium 8.4 mg/dL (8.4-10.2); Carbon Dioxide 31 mmol/L (22-29); Chloride 103 mmol/L (96-108); Creatinine Clr Calc Pharmacy 86.9; Estimated Glomerular Filt Rate > 60; Glucose Random 75 mg/dL (60-115); Lipase 12 U/L (8-78); Potassium 4.4 mmol/L (3.3-5.1); Sodium 138 mmol/L (135-145)
[2022-07-14 08:00] LABS: Glucose, Whole Blood 61 mg/dL (60-115)
[2022-07-14 08:03] LABS: Appearance Urine Clear; Color Urine Yellow; Glucose Urine UA Negative (Negative); Leukocyte Esterase Urine Negative (Negative); Nitrite Urine Negative (Negative); Specific Gravity - Urine 1.015 (1.005-1.025); UMIC TRIGGER UACC YES; Urine Blood Negative (Negative); Urine Ketones Negative (Negative); Urine Protein 30 (1+) mg/dL (Neg-Trace)
[2022-07-14 08:07] LABS: Bacteria Urine None Seen (None Seen); Hyaline Casts Urine 0-2 /LPF (0-2); RBC Urine 0-2 /HPF (0-2); Squamous Epithelial Cell Urine 0-2 /HPF (0-2); WBC Urine 0-5 /HPF (0-5)
[2022-07-14] MEDS: Docusate Sodium 100 MG CAPSULE PO (09:10)
[2022-07-14] MEDS: polyethylene glycoL 3350 17 GM POWD.PACK PO (09:10)
[2022-07-14] MEDS: Metoclopramide HCl 10 MG TABLET PO (09:10)
== END 2022-07-14 10:17 | disposition home or self-care (01) ==
PROVIDERS: Physician Assistant; Emergency Provider Emergency Medicine
DX: R10.13 Epigastric pain (principal); K59.00 Constipation, unspecified; Z79.899 Other long term (current) drug therapy
CPT/HCPCS: 36415; 80048; 80076; 81001; 81003; 82947; 83690; 83735; 85025; 99284

== ENCOUNTER 2022-09-09 09:24 | Outpatient (REF) | payer OTHER, SELFPAY ==
[2022-09-09 10:52] LABS: Estimated Average Glucose 171 mg/dL; Hemoglobin A1c % 7.6 %
[2022-09-09 11:13] LABS: Alanine Aminotransferase 46 U/L (0-40); Albumin Level 3.5 g/dL (3.5-5.0); Alkaline Phosphatase 140 U/L (39-117); Anion Gap 13 (12-20); Aspartate Amino Transferase 37 U/L (5-37); Bilirubin Total 0.4 mg/dL (0.0-1.0); Blood Urea Nitrogen 25 mg/dL (9-16); Calcium 9.4 mg/dL (8.4-10.2); Carbon Dioxide 26 mmol/L (22-29); Chloride 104 mmol/L (96-108); Cholesterol 146 mg/dL; Estimated Glomerular Filt Rate > 60; Glucose Fasting 260 mg/dL (60-99); HDL Cholesterol 27 mg/dL; LDL Cholesterol Calculated 69 mg/dl; Potassium 4.5 mmol/L (3.3-5.1); Sodium 138 mmol/L (135-145); TSH reflex Free T4 1.07 uIU/mL (0.32-4.0); Total Protein 7.3 g/dL (6.5-8.0); Triglycerides 251 mg/dL; Vitamin D 25-OH Total 36.6 ng/mL (>30)
[2022-09-09 11:56] LABS: Creatinine Urine 77.07 mg/dL; Microalbum/Creatinine Ratio Ur 141.4 ug/mg cr
== END 2022-09-09 09:25 | disposition home or self-care (01) ==
LOC: HO.LAB 09:24
PROVIDERS: Absent Provider Internal Medicine; PCP Internal Medicine; Visit Provider Urology
DX: E78.00 Pure hypercholesterolemia, unspecified (principal); R30.0 Dysuria; E11.9 Type 2 diabetes mellitus without complications; E55.9 Vitamin D deficiency, unspecified; I10 Essential (primary) hypertension; N52.9 Male erectile dysfunction, unspecified
CPT/HCPCS: 36415; 80053; 80061; 81003; 82043; 82306; 83036; 84402; 84403; 84443; 85025

== ENCOUNTER 2022-10-09 11:26 | Inpatient (IN) | payer OTHER, SELFPAY ==
[2022-10-09] VITALS (9 sets, daily range): BP systolic 110–161; BP diastolic 48–84; PULSE 51–95; RESP 18–20; TEMP 36.2–38.6; O2SAT 88–97; BMI 35.4
--- NOTE | ~2022-10-09 | CT_ITS ---
EXAMINATION: CT HEAD WITHOUT CONTRAST CLINICAL INFORMATION: Head trauma, rule out intracranial abnormality. COMPARISON: Head CT scan dated 05/04/2012. TECHNIQUE: Contiguous axial imaging was performed from the skull base to vertex without intravenous administration of contrast. Coronal and sagittal reformatted images were obtained. This CT examination was performed using dose optimization techniques as appropriate, variously including the following: *Automated exposure control *Adjustment of mA and/or kV according to patient size (this includes techniques or standardized protocols for targeted exams where dose is matched to indication/reason for exam; i.e. extremities or head) *Use of iterative reconstruction technique DLP: 930.63 mGy-cm FINDINGS: There is mild widening of the cortical sulci and associated ventriculomegaly. The lateral ventricles are symmetrical. The third and fourth ventricles are in their normal midline position. The basilar and prepontine cisterns are unremarkable. Mild periventricular microvascular changes are seen. There is no acute intra or extracerebral abnormality. There is no mass effect or midline shift. Sections through the bony calvarium are unremarkable. The orbits are intact. Mild periventricular microvascular changes are seen. Mild to moderate mucosal thickening posteromedially in the left maxillary sinus. The remainder of the paranasal sinuses are clear. The mastoid air cells are clear. CT/CT head/brain wo IV con IMPRESSION: No acute intracranial pathology.
--- NOTE | ~2022-10-09 | CT_ITS ---
EXAMINATION: CT CERVICAL SPINE WITHOUT CONTRAST CLINICAL INFORMATION: Status post fall with neck pain. COMPARISON: None available. TECHNIQUE: Multiple axial images of the cervical spine were obtained without the administration of intravenous contrast. Coronal and sagittal reformatted images were obtained This CT examination was performed using dose optimization techniques as appropriate, variously including the following: *Automated exposure control *Adjustment of mA and/or kV according to patient size (this includes techniques or standardized protocols for targeted exams where dose is matched to indication/reason for exam; i.e. extremities or head) *Use of iterative reconstruction technique DLP: 767.10 mGy-cm FINDINGS: There is straightening of the normal cervical lordosis with normal spinal alignment. Mild to moderate multilevel degenerative disc disease is seen from C3-4 to C6-7. The vertebral bodies and odontoid processes are intact with the neural foramina are patent. The facet joints are unremarkable. The spinous and transverse processes are unremarkable. A rudimentary right cervical rib and mildly prominent left transverse processes are seen at C7. The cervical soft tissues are unremarkable. There is no significant lymphadenopathy. Mild atherosclerosis is seen in the carotid bulbs bilaterally. There is incidental mild medial deviation of the carotid bulbs bilaterally, left greater than right. The thyroid gland is unremarkable. The visualized lung apices are unremarkable. CT/CT cervical spine wo IV con IMPRESSION: 1. Straightening of the normal cervical lordosis may be secondary to positioning and/or muscle spasm. 2. Mild to moderate multilevel degenerative changes without acute abnormality.
--- NOTE | ~2022-10-09 | XR_ITS ---
EXAMINATION: XR CHEST CLINICAL INFORMATION: Fever. COMPARISON: 06/28/2019 chest radiograph. TECHNIQUE: Frontal view of the chest was obtained. FINDINGS: The lungs are clear. The heart and mediastinal structures are unremarkable. Multilevel sternotomy wires are intact. XR/XR chest 1V IMPRESSION: No acute cardiopulmonary process.
--- NOTE | 2022-10-09 11:42 | PC.NURSE ---
Alert and orienbted, bengali speaking only, info obtained via title one teacher. Patient states fell and was on the floor x 5 hours. Reports weak legs, neck and arm pain.Unable to be c collared by EMS. Unsure if he struck his head, unsure what caused him to fall. Denies sob or chest pain. 92%on RA. temp 101. 5 pa aware.
--- NOTE | 2022-10-09 11:51 | ED.FALL ---
HPI - Fall General Chief Complaint: Fall Stated Complaint: FALL OOB,DOWN X5 HRS,NECK/LEG PAIN PER EMS Time Seen by Provider: 10/09/22 11:29 Source: patient, EMS, RN notes reviewed and old records reviewed Mode of arrival: EMS History of Present Illness HPI Narrative: 67-year-old male with a past medical history of obesity, diabetes, polyneuropathy, JAIME, HTN, HLD, CAD, lymphedema, BPH, presenting to the ED via EMS from home for unwitnessed fall, patient states he is on the floor for about 5 hours unable to get himself up. unknown head trauma, denies LOC, reports neck / back and bilateral arm pain secondary to trying to get self off the ground. Patient denies known fever /chills, CP/ SOB, abdominal pain, nausea / vomiting, urinary symptoms. Takes ASA MD complaint: fall Onset (ago): unknown Related Data Home Medications Medication Instructions Recorded Confirmed blood-glucose meter (OneTouch #1 ea 06/12/22 06/12/22 Ultra2 Meter) insulin lispro 100 unit/mL 15 - 20 unit subcut BID 10/09/22 10/09/22 subcutaneous pen (Humalog KwikPen (U-100) Insulin) polyethylene glycol 3350 17 17 g PO DAILY PRN Constipation 10/09/22 10/09/22 gram/dose oral powder (Miralax) Previous Rx's Medication Instructions Recorded SHOWER CHAIR #1 ea 10/05/20 SHOWER CHAIR #1 ea 01/10/21 fluticasone propionate 50 1 spray intranasal DAILY #16 grams 03/16/21 mcg/actuation nasal spray,suspension insulin syr/ndl U100 half gareth 0.5 #100 ea 05/14/21 mL 30 gauge x 5/16 cholecalciferol (vitamin D3) 50 50 mcg PO DAILY 90 days #90 caps 09/07/21 mcg (2,000 unit) capsule aspirin 81 mg tablet,delayed 81 mg PO DAILY #90 tabs 01/14/22 release insulin glargine 100 unit/mL (3 80 unit (0.8 mL) subcut BID 30 01/14/22 mL) subcutaneous pen (Lantus days #48 mL Solostar U-100 Insulin) blood-glucose meter (OneTouch #1 ea 03/12/22 Ultra2 Meter kit) pen needle, diabetic 31 gauge x #100 ea 03/12/2207/23 (Lite Touch Insulin Pen [place]) lancets 33 gauge (OneTouch [place] #100 ea 03/13/22 Lancets) cyanocobalamin (vitamin B-12) 1,000 mcg PO DAILY 90 days #90 tabs 04/25/22 1,000 mcg tablet metoprolol tartrate 50 mg tablet 50 mg PO BID #180 tabs 04/25/22 omeprazole 40 mg capsule,delayed 40 mg PO DAILY 30 days #30 caps 06/10/22 release flash glucose scanning reader #1 ea 06/12/22 (FreeStyle [place] 2 [place]) flash glucose sensor (FreeStyle #2 ea 06/12/22 [place] 2 Sensor kit) albuterol sulfate 90 mcg/actuation 2 puff PO Q4-6H PRN for wheezing 07/02/22 aerosol inhaler #8.5 grams dicyclomine 20 mg tablet 20 mg PO QID PRN abdominal pain 07/05/22 #20 tabs ondansetron HCl 4 mg tablet 4 mg PO Q6H PRN nausea and 07/06/22 vomiting #14 tabs paroxetine HCl 40 mg tablet 40 mg PO DAILY #90 tabs 07/12/22 oxybutynin chloride 10 mg 10 mg PO DAILY #90 tabs 08/20/22 tablet,extended release 24 hr atorvastatin 80 mg tablet 80 mg PO DAILY #90 tabs 08/23/22 gabapentin 400 mg capsule 800 mg PO BID #120 caps 08/29/22 lisinopril 10 mg tablet 10 mg PO DAILY #90 tabs 09/05/22 metoclopramide HCl 10 mg tablet 10 mg PO AC PRN nausea and 09/05/22 (Reglan) vomiting #20 tabs Allergies Allergy/AdvReac Type Severity Reaction Status Date / Time hydromorphone [Dilaudid] AdvReac Unknown confusion Verified 07/04/22 23:36 From DILAUDID AdvReac Severe CONFUSION/H Uncoded 06/10/22 09:56 ALLUCIATION S From PERCOCET AdvReac Intermediate AGITATION Uncoded 06/10/22 09:56 Review of Systems Review of Systems: Constitutional: No Fever, No Chills, No Fatigue, No Malaise ENT/Mouth: No Ear Pain, No Nasal Congestion, No sore throat, No Rhinorrhea, No Swallowing Difficulty Eyes: No Eye Pain, No Swelling, No Redness, No Vision Changes Cardiovascular: No Chest Pain, No SOB, No Edema, No Palpitations Respiratory: No Cough, No Sputum, No Dyspnea Gastrointestinal: No Nausea, No Vomiting, No Diarrhea, No Constipation, No Abdominal pain Genitourinary: No Dysuria, No Urinary Frequency, No Hematuria, No Urinary Incontinence/retention, No Flank Pain Musculoskeletal: + joint pain, + Myalgias, No Joint Swelling Skin: No Skin Lesions, No rash Neuro: No Weakness, No Numbness, No Paresthesias, No Loss of Consciousness, No Dizziness, No Headache Yes all other systems are reviewed and are negative Constitutional: Constitutional: Reports as per HPI Neurologic: Denies Abnormal speech present [facility] Past Medical History Attestation statement: The following information was validated with the patient. Source: old records reviewed Medical History Benign essential hypertension Benign prostatic hyperplasia with urinary frequency Constipation Coronary artery disease Diabetes mellitus Diabetic polyneuropathy Hyperkalemia Intertrigo Major depressive disorder, recurrent Obesity (BMI 30-39.9) Obstructive sleep apnea Pure hypercholesterolemia Vitamin B12 deficiency Vitamin D deficiency Surgical History History of prostate surgery (~12/04/10) History of quadruple bypass (~2005) Hx of cataract extraction (~2011) Hx of cholecystectomy (~2007) Hx of cystoscopy Family History Family History Father Lung cancer Mother Diabetes Hypertension Stomach cancer Social History Social History Household Members: None Housing: Apartment Do you presently have visiting nurse or other home services: No (offered VNA in past and refused) Alcohol intake: never Patient Tobacco Use Status: Former Tobacco user Smoked in Last 30 Days: Yes e-Cigarette/Vaping Use: Never Used Second Hand Smoke Exposure: Yes Use of substances other than those prescribed or required for medical reasons: No Advance Directives: Yes Advance Directives on File: Yes Advance Directives Date on File: 05/09/20 service: No Current occupational status: disabled Cognitive needs: Yes (cane) Hearing needs: No Vision needs: Yes Physical Exam Vital Signs: Vital Signs: Last Vital Signs Temp 97.5 F 10/09/22 18:14 Pulse 95 10/09/22 18:14 Resp 20 10/09/22 18:14 BP 127/49 L 10/09/22 18:14 Pulse Ox 94 10/09/22 18:14 O2 Del Method Nasal Cannula 10/09/22 18:14 O2 Flow Rate 2 10/09/22 18:14 BMI result Body Mass Index 35.4 Const: General: cooperative and no acute distress Nutritional Appearance: obese Orientation/consciousness: patient oriented x3 Limitations: no limitations HEENT: Head: Yes normal to inspection and Yes atraumatic Ears: hearing grossly normal bilaterally General nose exam: Normal external nose present Face and sinus: Yes normal facial exam Throat: Yes posterior oropharynx normal Eyes: General: appearance normal, both eyes and all related structures Pupils: Equal, round and reactive pupils present EOM: EOMs intact bilaterally Neck: Neck: Yes normal visual inspection, Yes no meningeal signs, No anterior neck swelling and No torticollis Chest: Chest palpation & inspection: normal inspection of the chest, no crepitus and no tenderness Resp: Effort & Inspection: normal respiratory effort and no respiratory distress Auscultation: clear to auscultation bilaterally Cardio: Rate: regular rate Heart sounds: S1 normal heart sound present and S2 normal heart sound present GI: Inspection: Yes normal to inspection Palpation (GI): Soft to palpation, nontender, no guarding and not rigid Back/Spine/Pelvis: Other: No midline cervical/thoracic/lumbar spinous tenderness/step-off or deformity Skin: Rashes: no rashes Wounds: no wounds Neuro: General: patient oriented x3, tone normal, moves all extremities, no meningeal signs, no focal motor deficits and CN's II-XI intact bilaterally Cranial nerves: Yes CN's II-XII intact bilaterally and Yes Equal, round and reactive pupils present Cognition (Neuro): normal cognition Speech: No Abnormal speech present Motor exam (neuro): 5/5 motor strength present throughout Extrem: Other: +b/l LE edema General: Yes normal to inspection Course Course Course Narrative: -1400-- no leukocytosis. H&H at patient's baseline. Lactic acid negative. Initial troponin 74.9 (will obtain 3 hr repeat), BNP 415 > chronically elevated, greater than priors - COVID-19 positive > IV Decadron ordered for hypoxia XR chest 1V IMPRESSION: No acute cardiopulmonary process. -1630-- patient's labs hemolyzed, chemistry still pending CT cervical spine wo IV con IMPRESSION: 1.? Straightening of the normal cervical lordosis may be secondary to positioning and/or muscle spasm. 2.? Mild to moderate multilevel degenerative changes without acute abnormality. -1636-- ED care transferred to [facility] pending remaining labs, head CT, and admission Reevaluation(s) Reevaluation #1: CT of the head without acute intracranial pathology. CMP overall unremarkable. Delta trop negative. Patient admitted to Medicine Service under hospitalist; Dr. Kohli for COVID-19 with hypoxia Time: 18:38 Medications Administered Discontinued Medications Generic Name Dose Route Start Last Admin Trade Name Freq PRN Reason Stop Dose Admin Acetaminophen 975 mg 10/09/22 11:54 10/09/22 13:47 Acetaminophen 325 Mg Tablet PO 10/09/22 11:55 975 mg ONCE ONE Administration Dexamethasone Sodium Phosphate 6 mg 10/09/22 14:02 10/09/22 14:16 Dexamethasone Sod Phosphate 4 Mg/Ml Vial IVPUSH 10/09/22 14:03 6 mg ONCE ONE Administration Sodium Chloride 500 mls @ 999 mls/hr 10/09/22 12:00 10/09/22 16:36 Ns IV 10/09/22 12:30 Infused .Q31M ABELARDO Infusion Ceftriaxone Sodium 1 gm/ 50 mls @ 100 mls/hr 10/09/22 12:11 10/09/22 15:29 Sodium Chloride IV 10/09/22 12:40 Infused ONCE ONE Infusion Lidocaine HCl 5 ml 10/09/22 13:57 10/09/22 14:09 Lidocaine Hcl 1 % Mpf 5 Ml Vial INFILTRATI 10/09/22 13:58 5 ml ONCE STA Administration Procedures EJ/Peripheral Line Neck R: Time Out Performed: No Skin Cleansed in Sterile Fashion: Yes Size (gauge): 20 IV Secured and Dressing Applied: Yes Patient Tolerated Procedure: well Additional Comments: The patient's skin was cleaned with Hibiclens skin prep and alcohol, using 1% lidocaine his skin was anesthetized with 0.5 cc. A 20 gauge Angiocath was easily inserted into his right external jugular. There was good blood return and the IV flushed easily. The IV was secured with Tegaderm. Patient's nurse was able to easily flush the IV as well. Medical Decision Making Medical Decision Making MDM Narrative: 67-year-old male with a past medical history of obesity, diabetes, polyneuropathy, JAIME, HTN, HLD, CAD, lymphedema, BPH, presenting to the ED via EMS from home for unwitnessed fall, patient states he is on the floor for about 5 hours unable to get himself up. On exam febrile 101.5 orally, desatting to 88% on RA > 92% on 2 L NC, lungs CTA, abdomen soft/ nontender, no midline spinous tenderness throughout or red flag symptoms, no evidence of trauma. Concern for ICH vs fractures vs infectious/metabolic etiology including rhabdomyolysis. no evidence of compartment syndrome. Low suspicion for severe sepsis at this time plan: EKG, labs, UA, lactic/ blood cultures, head/ C-spine CT, CXR, IVF, p.o. Tylenol Please refer to course for remaining clinical decision making, interpretation of labs/imaging results, and discussions with consultants and/or family members. Differential Diagnosis Differential Diagnoses: The differential diagnosis associated with the presentation includes As above Admission/Observation Consideration of admission/observation: Escalation of care including admission/observation considered Lab Data [facility] Lab Attestation statement: I reviewed the patient's lab results. 10/09/22 13:16 10/09/22 13:16 Labs: Lab Results 10/09/22 10/09/22 10/09/22 Range/Units 13:16 13:16 13:16 WBC 7.7 (4.8-10.8) X10*3/uL RBC 3.85 L (4.60-5.80) X10*6/uL Hgb 11.7 L (14.0-18.0) g/dl Hct 35.1 L (42.0-52.0) % MCV 91.2 (80.0-98.0) fL MCH 30.4 (27.0-33.0) pg MCHC 33.3 (31.0-36.0) g/dl RDW 12.6 (11.0-16.0) % Plt Count 135 L (160-400) X10*3/uL MPV 13.3 H (9.4-12.4) fL Immature Gran % (Auto) 0.5 H (0.0-0.4) % Neut % (Auto) 75.1 H (45-73) % Lymph % (Auto) 13.7 L (20-40) % [place] % (Auto) 10.6 (2-11) % Eos % (Auto) 0.0 (0-4) % Baso % (Auto) 0.1 (0-2) % Lymph # (Auto) 1.1 L (1.2-4.9) X10*3/uL [place] # (Auto) 0.8 (0.1-1.2) X10*3/uL Eos # (Auto) 0.0 (0.0-0.4) X10*3/uL Baso # (Auto) 0.0 (0.0-0.2) X10*3/uL Abs Immat Gran (auto) 0.04 H (0.00-0.03) X10*3/uL Absolute Neuts (auto) 5.8 (2.0-8.3) x10*3/uL Absolute Nucleated RBC 0.000 (0.0-0.012) X10*3/uL Nucleated RBC % (auto) 0.0 (0.0-0.2) /100WBC PT 11.7 (11.1-13.3) SEC INR 1.0 (0.9-1.1) Sodium (135-145) mmol/L Potassium (3.3-5.1) mmol/L Chloride (96-108) mmol/L Carbon Dioxide (22-29) mmol/L Anion Gap (12-20) BUN (9-16) mg/dL Creatinine (0.5-1.4) mg/dL Estim Creat Clear Calc Estimated GFR POC Glucose (60-115) mg/dL Random Glucose (60-115) mg/dL Lactic Acid 1.1 (0.5-2.0) mmol/L Calcium (8.4-10.2) mg/dL Magnesium (1.6-2.6) mg/dL Total Bilirubin (0.0-1.0) mg/dL Direct Bilirubin (0.0-0.5) mg/dL AST (5-37) U/L ALT (0-40) U/L Alkaline Phosphatase (39-117) U/L Total Creatine Kinase (38-174) U/L Troponin I High Sens (<3.5-35.0) ng/L B-Natriuretic Peptide (<100) pg/mL Total Protein (6.5-8.0) g/dL Albumin (3.5-5.0) g/dL Urine Color Urine Appearance Urine pH (5.0-9.0) Ur Specific [place] (1.005-1.025) Urine Protein (Neg-Trace) mg/dL Urine Glucose (UA) (Negative) mg/dL Urine Ketones (Negative) mg/dL Urine Blood (Negative) Urine Nitrite (Negative) Ur Leukocyte Esterase (Negative) Urine RBC (0-2) /HPF Urine WBC (0-5) /HPF Ur Squamous Epith Cells (0-2) /HPF Urine Bacteria (None Seen) Hyaline Casts (0-2) /LPF COVID-19 (YVETTE) (Negative) COVID-19 Clin Com 10/09/22 10/09/22 10/09/22 Range/Units 13:16 13:16 13:18 WBC (4.8-10.8) X10*3/uL RBC (4.60-5.80) X10*6/uL Hgb (14.0-18.0) g/dl Hct (42.0-52.0) % MCV (80.0-98.0) fL MCH (27.0-33.0) pg MCHC (31.0-36.0) g/dl RDW (11.0-16.0) % Plt Count (160-400) X10*3/uL MPV (9.4-12.4) fL Immature Gran % (Auto) (0.0-0.4) % Neut % (Auto) (45-73) % Lymph % (Auto) (20-40) % [place] % (Auto) (2-11) % Eos % (Auto) (0-4) % Baso % (Auto) (0-2) % Lymph # (Auto) (1.2-4.9) X10*3/uL [place] # (Auto) (0.1-1.2) X10*3/uL Eos # (Auto) (0.0-0.4) X10*3/uL Baso # (Auto) (0.0-0.2) X10*3/uL Abs Immat Gran (auto) (0.00-0.03) X10*3/uL Absolute Neuts (auto) (2.0-8.3) x10*3/uL Absolute Nucleated RBC (0.0-0.012) X10*3/uL Nucleated RBC % (auto) (0.0-0.2) /100WBC PT (11.1-13.3) SEC INR (0.9-1.1) Sodium (135-145) mmol/L Potassium (3.3-5.1) mmol/L Chloride (96-108) mmol/L Carbon Dioxide (22-29) mmol/L Anion Gap (12-20) BUN (9-16) mg/dL Creatinine (0.5-1.4) mg/dL Estim Creat Clear Calc Estimated GFR POC Glucose (60-115) mg/dL Random Glucose (60-115) mg/dL Lactic Acid (0.5-2.0) mmol/L Calcium (8.4-10.2) mg/dL Magnesium (1.6-2.6) mg/dL Total Bilirubin (0.0-1.0) mg/dL Direct Bilirubin (0.0-0.5) mg/dL AST (5-37) U/L ALT (0-40) U/L Alkaline Phosphatase (39-117) U/L Total Creatine Kinase (38-174) U/L Troponin I High Sens 74.9 H (<3.5-35.0) ng/L B-Natriuretic Peptide 415 H (<100) pg/mL Total Protein (6.5-8.0) g/dL Albumin (3.5-5.0) g/dL Urine Color Urine Appearance Urine pH (5.0-9.0) Ur Specific [place] (1.005-1.025) Urine Protein (Neg-Trace) mg/dL Urine Glucose (UA) (Negative) mg/dL Urine Ketones (Negative) mg/dL Urine Blood (Negative) Urine Nitrite (Negative) Ur Leukocyte Esterase (Negative) Urine RBC (0-2) /HPF Urine WBC (0-5) /HPF Ur Squamous Epith Cells (0-2) /HPF Urine Bacteria (None Seen) Hyaline Casts (0-2) /LPF COVID-19 (YVETTE) Positive A (Negative) COVID-19 Clin Com See Note 10/09/22 10/09/22 10/09/22 Range/Units 14:48 15:58 16:44 WBC (4.8-10.8) X10*3/uL RBC (4.60-5.80) X10*6/uL Hgb (14.0-18.0) g/dl Hct (42.0-52.0) % MCV (80.0-98.0) fL MCH (27.0-33.0) pg MCHC (31.0-36.0) g/dl RDW (11.0-16.0) % Plt Count (160-400) X10*3/uL MPV (9.4-12.4) fL Immature Gran % (Auto) (0.0-0.4) % Neut % (Auto) (45-73) % Lymph % (Auto) (20-40) % [place] % (Auto) (2-11) % Eos % (Auto) (0-4) % Baso % (Auto) (0-2) % Lymph # (Auto) (1.2-4.9) X10*3/uL [place] # (Auto) (0.1-1.2) X10*3/uL Eos # (Auto) (0.0-0.4) X10*3/uL Baso # (Auto) (0.0-0.2) X10*3/uL Abs Immat Gran (auto) (0.00-0.03) X10*3/uL Absolute Neuts (auto) (2.0-8.3) x10*3/uL Absolute Nucleated RBC (0.0-0.012) X10*3/uL Nucleated RBC % (auto) (0.0-0.2) /100WBC PT (11.1-13.3) SEC INR (0.9-1.1) Sodium 139 (135-145) mmol/L Potassium 4.3 (3.3-5.1) mmol/L Chloride 103 (96-108) mmol/L Carbon Dioxide 25 (22-29) mmol/L Anion Gap 15 (12-20) BUN 19 H (9-16) mg/dL Creatinine 1.28 (0.5-1.4) mg/dL Estim Creat Clear Calc 66.1 Estimated GFR 56 POC Glucose 178 H (60-115) mg/dL Random Glucose 226 H (60-115) mg/dL Lactic Acid (0.5-2.0) mmol/L Calcium 8.7 D (8.4-10.2) mg/dL Magnesium 1.9 (1.6-2.6) mg/dL Total Bilirubin 0.4 (0.0-1.0) mg/dL Direct Bilirubin 0.2 (0.0-0.5) mg/dL AST 29 (5-37) U/L ALT 26 (0-40) U/L Alkaline Phosphatase 102 (39-117) U/L Total Creatine Kinase 325 H (38-174) U/L Troponin I High Sens (<3.5-35.0) ng/L B-Natriuretic Peptide (<100) pg/mL Total Protein 7.0 (6.5-8.0) g/dL Albumin 3.5 (3.5-5.0) g/dL Urine Color Yellow Urine Appearance Clear Urine pH 6.5 (5.0-9.0) Ur Specific [place] 1.020 (1.005-1.025) Urine Protein 100 (2+) H (Neg-Trace) mg/dL Urine Glucose (UA) Negative (Negative) mg/dL Urine Ketones Negative (Negative) mg/dL Urine Blood Negative (Negative) Urine Nitrite Negative (Negative) Ur Leukocyte Esterase Negative (Negative) Urine RBC 0-2 (0-2) /HPF Urine WBC 0-5 (0-5) /HPF Ur Squamous Epith Cells 0-2 (0-2) /HPF Urine Bacteria None Seen (None Seen) Hyaline Casts 0-2 (0-2) /LPF COVID-19 (YVETTE) (Negative) COVID-19 Clin Com 10/09/22 Range/Units 16:44 WBC (4.8-10.8) X10*3/uL RBC (4.60-5.80) X10*6/uL Hgb (14.0-18.0) g/dl Hct (42.0-52.0) % MCV (80.0-98.0) fL MCH (27.0-33.0) pg MCHC (31.0-36.0) g/dl RDW (11.0-16.0) % Plt Count (160-400) X10*3/uL MPV (9.4-12.4) fL Immature Gran % (Auto) (0.0-0.4) % Neut % (Auto) (45-73) % Lymph % (Auto) (20-40) % [place] % (Auto) (2-11) % Eos % (Auto) (0-4) % Baso % (Auto) (0-2) % Lymph # (Auto) (1.2-4.9) X10*3/uL [place] # (Auto) (0.1-1.2) X10*3/uL Eos # (Auto) (0.0-0.4) X10*3/uL Baso # (Auto) (0.0-0.2) X10*3/uL Abs Immat Gran (auto) (0.00-0.03) X10*3/uL Absolute Neuts (auto) (2.0-8.3) x10*3/uL Absolute Nucleated RBC (0.0-0.012) X10*3/uL Nucleated RBC % (auto) (0.0-0.2) /100WBC PT (11.1-13.3) SEC INR (0.9-1.1) Sodium (135-145) mmol/L Potassium (3.3-5.1) mmol/L Chloride (96-108) mmol/L Carbon Dioxide (22-29) mmol/L Anion Gap (12-20) BUN (9-16) mg/dL Creatinine (0.5-1.4) mg/dL Estim Creat Clear Calc Estimated GFR POC Glucose (60-115) mg/dL Random Glucose (60-115) mg/dL Lactic Acid (0.5-2.0) mmol/L Calcium (8.4-10.2) mg/dL Magnesium (1.6-2.6) mg/dL Total Bilirubin (0.0-1.0) mg/dL Direct Bilirubin (0.0-0.5) mg/dL AST (5-37) U/L ALT (0-40) U/L Alkaline Phosphatase (39-117) U/L Total Creatine Kinase (38-174) U/L Troponin I High Sens 72.2 H (<3.5-35.0) ng/L B-Natriuretic Peptide (<100) pg/mL Total Protein (6.5-8.0) g/dL Albumin (3.5-5.0) g/dL Urine Color Urine Appearance Urine pH (5.0-9.0) Ur Specific [place] (1.005-1.025) Urine Protein (Neg-Trace) mg/dL Urine Glucose (UA) (Negative) mg/dL Urine Ketones (Negative) mg/dL Urine Blood (Negative) Urine Nitrite (Negative) Ur Leukocyte Esterase (Negative) Urine RBC (0-2) /HPF Urine WBC (0-5) /HPF Ur Squamous Epith Cells (0-2) /HPF Urine Bacteria (None Seen) Hyaline Casts (0-2) /LPF COVID-19 (YVETTE) (Negative) COVID-19 Clin Com Radiology Impression Discussion of test interpretation with radiology: I have reviewed the radiologist's reading. Radiologist Impression: CT/CT head/brain wo IV con IMPRESSION: No acute intracranial pathology. Independent Historian Clinical information obtained from an independent historian. History obtained from or confirmed by: EMS External Record Review External record reviewed: Inpatient record, Office record, Outpatient record, Prior outpatient labs, Prior outpatient radiology, Primary care record and Outside ED record Tests considered The following testing was considered but not selected: As above Prescription Management I considered prescription management with: Pain Medication and Antibiotic Chronic Conditions Patient?s care impacted by: Diabetes, Hypertension and Other (JAIME, CAD) Social Determinants Patient?s care significantly limited by Social Determinants of Health including: Problems related to primary support group Discharge Plan Discharge Clinical Impression: COVID-19, Hypoxia, Fall
--- NOTE | 2022-10-09 11:52 | ECG_ITS ---
Test Reason : SOB Blood Pressure : / mmHG Vent. Rate : 062 BPM Atrial Rate : 062 BPM P-R Int : 202 ms QRS Dur : 092 ms QT Int : 416 ms P-R-T Axes : 066 -27 032 degrees QTc Int : 422 ms Sinus rhythm with Premature atrial complexes Septal infarct (cited on or before 06-JUL-2022) Abnormal ECG When compared with ECG of 06-JUL-2022 02:29, Premature atrial complexes are now Present MA interval has decreased T wave inversion no longer evident in Lateral leads Referred By: Cristin Ordoñez Electronically Signed By:JAIME CASTRO
--- NOTE | 2022-10-09 13:05 | PC.NURSE ---
x2 attempts to start IV unsuccessful. second nurse attempted with ultrasound , unsuccessful at this time
[2022-10-09 13:27] LABS: MANUAL DIFF FLAG NO
--- NOTE | 2022-10-09 13:38 | PC.NURSE ---
Provider attempted to place EJ, unsuccessful at this time
[2022-10-09 13:40] LABS: Lactic Acid 1.1 mmol/L (0.5-2.0)
[2022-10-09 13:43] LABS: COVID-19 Test Positive (Negative); IDNOW Serial# BCCEAD1C
[2022-10-09 13:43] LABS: Basophils Percent Auto 0.1 % (0-2); Hematocrit 35.1 % (42.0-52.0); Hemoglobin 11.7 g/dl (14.0-18.0); Imm Gran Abs Auto 0.04 X10*3/uL (0.00-0.03); Imm Gran Pct Auto 0.5 % (0.0-0.4); Lymphocytes Absolute Auto 1.1 X10*3/uL (1.2-4.9); Lymphocytes Percent Auto 13.7 % (20-40); Mean Corpuscular HGB Conc 33.3 g/dl (31.0-36.0); Mean Corpuscular Hemoglobin 30.4 pg (27.0-33.0); Mean Corpuscular Volume 91.2 fL (80.0-98.0); Mean Platelet Volume 13.3 fL (9.4-12.4); Monocytes Absolute Auto 0.8 X10*3/uL (0.1-1.2); Monocytes Percent Auto 10.6 % (2-11); Neutrophils Absolute Auto 5.8 x10*3/uL (2.0-8.3); Neutrophils Percent Auto 75.1 % (45-73); Platelet Count 135 X10*3/uL (160-400); Red Blood Count 3.85 X10*6/uL (4.60-5.80); Red Cell Distribution Width 12.6 % (11.0-16.0); White Blood Count 7.7 X10*3/uL (4.8-10.8)
[2022-10-09 13:47] LABS: Prothrombin Time 11.7 SEC (11.1-13.3)
[2022-10-09] MEDS: Acetaminophen 325 MG TABLET 975 MG PO (13:47)
[2022-10-09 13:51] LABS: B Type Natriuretic Peptide 415 pg/mL (<100); Troponin-I High Sensitivity 74.9 ng/L (<3.5-35.0)
[2022-10-09] MEDS: Lidocaine HCl 1 % MPF 5 ML VIAL INFILTRATI (14:09)
[2022-10-09] MEDS: 0.9 % Sodium Chloride 500 ML 999 ML IV (14:12)
[2022-10-09] MEDS: dexAMETHasone sod phosphate 4 MG/ML VIAL 6 MG IVPUSH (14:16)
[2022-10-09] MEDS: cefTRIAXone sodium 1 GM in 0.9 % Sodium Chloride 50 ML IV (14:17)
--- NOTE | 2022-10-09 14:49 | PHA.MEDREC ---
Pharmacy Consult ? Medication Reconciliation Pharmacy has completed the medication reconciliation. spoke with patient through an ranch hand. Confirmed his medications. He is no longer taking trulicity, he says he stopped taking it about a month and a half ago. His lantus is prescribed for 35 units BID however patient reports taking 15-20 units BID. He did confirm the Humalog units as well.
[2022-10-09 15:09] LABS: Appearance Urine Clear; Color Urine Yellow; Glucose Urine UA Negative (Negative); Leukocyte Esterase Urine Negative (Negative); Nitrite Urine Negative (Negative); PH 6.5 (5.0-9.0); UMIC TRIGGER UACC YES; Urine Blood Negative (Negative); Urine Ketones Negative (Negative); Urine Protein 100 (2+) mg/dL (Neg-Trace)
[2022-10-09 15:11] LABS: Bacteria Urine None Seen (None Seen); Hyaline Casts Urine 0-2 /LPF (0-2); RBC Urine 0-2 /HPF (0-2); Squamous Epithelial Cell Urine 0-2 /HPF (0-2); WBC Urine 0-5 /HPF (0-5)
[2022-10-09 16:02] LABS: Glucose, Whole Blood 178 mg/dL (60-115)
--- NOTE | 2022-10-09 16:49 | PC.NURSE ---
Alert and oriented, reporting feeling much better. labs drawn per order
[2022-10-09 16:58] LABS: Anion Gap 15 (12-20)
[2022-10-09 17:03] LABS: Alanine Aminotransferase 26 U/L (0-40); Albumin Level 3.5 g/dL (3.5-5.0); Alkaline Phosphatase 102 U/L (39-117); Aspartate Amino Transferase 29 U/L (5-37); Bilirubin Direct 0.2 mg/dL (0.0-0.5); Bilirubin Total 0.4 mg/dL (0.0-1.0); Blood Urea Nitrogen 19 mg/dL (9-16); Calcium 8.7 mg/dL (8.4-10.2); Carbon Dioxide 25 mmol/L (22-29); Chloride 103 mmol/L (96-108); Creatinine Clr Calc Pharmacy 66.1; Estimated Glomerular Filt Rate 56; Glucose Random 226 mg/dL (60-115); Magnesium 1.9 mg/dL (1.6-2.6); Potassium 4.3 mmol/L (3.3-5.1); Sodium 139 mmol/L (135-145)
[2022-10-09 17:09] LABS: Troponin-I High Sensitivity 72.2 ng/L (<3.5-35.0)
--- NOTE | 2022-10-09 18:04 | P.HPHOSP_ITS ---
History of Present Illness Date of Service: 10/09/22 Chief Complaint: fatigue, fever, fall 67M PMH CAD obesity, JAIME, htn, hld, bph, DM, presented s/p fall. patient reports about 1 week of feeling ill. reports generalized fatigue, weakness, subjective fevers, denies sick contacts. denies sob, chest pain, cough. on day of presentation had mechanical fall, was unable to get up for 5 hours. eventually managed to contact employees at home where he lives and ems was called, in ED febrile, hypoxic, covid positive. Review of Systems Review of Systems: Yes all other systems are reviewed and are negative FORMERLY [facility], 1928–1983 Medical History Benign essential hypertension Benign prostatic hyperplasia with urinary frequency Constipation Coronary artery disease Diabetes mellitus Diabetic polyneuropathy Hyperkalemia Intertrigo Major depressive disorder, recurrent Obesity (BMI 30-39.9) Obstructive sleep apnea Pure hypercholesterolemia Vitamin B12 deficiency Vitamin D deficiency Family History Father Lung cancer Mother Diabetes Hypertension Stomach cancer Surgical History History of prostate surgery (~12/04/10) History of quadruple bypass (~2005) Hx of cataract extraction (~2011) Hx of cholecystectomy (~2007) Hx of cystoscopy Social History Household Members: None Housing: Apartment Do you presently have visiting nurse or other home services: No (offered VNA in past and refused) Alcohol intake: never Patient Tobacco Use Status: Former Tobacco user Smoked in Last 30 Days: Yes e-Cigarette/Vaping Use: Never Used Second Hand Smoke Exposure: Yes Use of substances other than those prescribed or required for medical reasons: No Advance Directives: Yes Advance Directives on File: Yes Advance Directives Date on File: 05/09/20 service: No Current occupational status: disabled Cognitive needs: Yes (cane) Hearing needs: No Vision needs: Yes Meds Allergies Allergy/AdvReac Type Severity Reaction Status Date / Time hydromorphone [Dilaudid] AdvReac Unknown confusion Verified 07/04/22 23:36 From DILAUDID AdvReac Severe CONFUSION/H Uncoded 06/10/22 09:56 ALLUCIATION S From PERCOCET AdvReac Intermediate AGITATION Uncoded 06/10/22 09:56 Active Medications: Current Medications Dexamethasone Sodium Phosphate (Dexamethasone Sod Phosphate 4 Mg/Ml Vial) 6 mg IVPUSH DAILY [facility] Dextrose (Dextrose 50 % 25 Gm/50 Ml Syringe) 25 gm IVPUSH Q15M PRN; Protocol PRN Reason: per Hypoglycemia Standing Ord. Enoxaparin Sodium (Enoxaparin Sodium 40 Mg/0.4 Ml Syringe) 40 mg SUBCUT Q24H ABELARDO Glucose (Glucose Gel 15 Gm Gel..Gram.) 15 gm PO Q15M PRN; Protocol PRN Reason: per Hypoglycemia Standing Ord. Insulin Glargine (Insulin Glargine,Hum.Rec.Anlog 100 Unit/Ml 10 Ml Vial) 50 unit SUBCUT BID [facility] Insulin Human Lispro (Insulin Lispro 100 Unit/Ml 3 Ml Vial) 0 unit SUBCUT QIDACHS [facility]; Protocol Insulin Human Lispro (Insulin Lispro 100 Unit/Ml 3 Ml Vial) 5 unit SUBCUT QIDACHS [facility] Sodium Chloride (0.9 % Sodium Chloride Flush 3 Ml Syringe) 3 ml IVFLUSH QSHIFT [facility] Home Medications Medication Instructions Recorded Confirmed Last Taken Type blood-glucose meter (OneTouch #1 ea 06/12/22 06/12/22 Unknown History Ultra2 Meter) insulin lispro 100 unit/mL 15 - 20 unit subcut BID 10/09/22 10/09/22 Unknown History subcutaneous pen (Humalog KwikPen (U-100) Insulin) polyethylene glycol 3350 17 17 g PO DAILY PRN Constipation 10/09/22 10/09/22 Unknown History gram/dose oral powder (Miralax) Physical Exam Vital Signs and Narrative: Vital Signs: Last Vital Signs Temp 99.4 F 10/09/22 16:07 Pulse 56 10/09/22 16:07 Resp 20 10/09/22 16:07 BP 125/50 L 10/09/22 16:07 Pulse Ox 91 L 10/09/22 16:07 O2 Del Method Nasal Cannula 10/09/22 16:07 O2 Flow Rate 2 10/09/22 11:44 BMI result Body Mass Index 35.4 General: AO X 3, no acute distress Resp: CTA bilateral, no accessory muscles used CVS: S1,S2,RRR GI: soft, non tender, non distended Neuro: motor grossly intact, alert Psych: appropriate affect, appropriate insight Results Labs 10/09/22 13:16 10/09/22 16:44 Labs: Laboratory Results - last 24 hr 10/09/22 10/09/22 10/09/22 13:16 13:16 13:16 MCV 91.2 MCH 30.4 MCHC 33.3 RDW 12.6 Plt Count 135 L MPV 13.3 H Immature Gran % (Auto) 0.5 H Neut % (Auto) 75.1 H Lymph % (Auto) 13.7 L [place] % (Auto) 10.6 Eos % (Auto) 0.0 Baso % (Auto) 0.1 Lymph # (Auto) 1.1 L [place] # (Auto) 0.8 Eos # (Auto) 0.0 Baso # (Auto) 0.0 Abs Immat Gran (auto) 0.04 H Absolute Neuts (auto) 5.8 Absolute Nucleated RBC 0.000 Nucleated RBC % (auto) 0.0 PT 11.7 INR 1.0 Anion Gap Estim Creat Clear Calc Estimated GFR POC Glucose Random Glucose Lactic Acid 1.1 Calcium Magnesium Total Bilirubin Direct Bilirubin AST ALT Alkaline Phosphatase Total Creatine Kinase B-Natriuretic Peptide Total Protein Albumin Urine Color Urine Appearance Urine pH Ur Specific [place] Urine Protein Urine Glucose (UA) Urine Ketones Urine Blood Urine Nitrite Ur Leukocyte Esterase Urine RBC Urine WBC Ur Squamous Epith Cells Urine Bacteria Hyaline Casts COVID-19 ([facility]) COVID-19 Clin Com 10/09/22 10/09/22 10/09/22 13:16 13:18 14:48 MCV MCH MCHC RDW Plt Count MPV Immature Gran % (Auto) Neut % (Auto) Lymph % (Auto) [place] % (Auto) Eos % (Auto) Baso % (Auto) Lymph # (Auto) [place] # (Auto) Eos # (Auto) Baso # (Auto) Abs Immat Gran (auto) Absolute Neuts (auto) Absolute Nucleated RBC Nucleated RBC % (auto) PT INR Anion Gap Estim Creat Clear Calc Estimated GFR POC Glucose Random Glucose Lactic Acid Calcium Magnesium Total Bilirubin Direct Bilirubin AST ALT Alkaline Phosphatase Total Creatine Kinase B-Natriuretic Peptide 415 H Total Protein Albumin Urine Color Yellow Urine Appearance Clear Urine pH 6.5 Ur Specific [place] 1.020 Urine Protein 100 (2+) H Urine Glucose (UA) Negative Urine Ketones Negative Urine Blood Negative Urine Nitrite Negative Ur Leukocyte Esterase Negative Urine RBC 0-2 Urine WBC 0-5 Ur Squamous Epith Cells 0-2 Urine Bacteria None Seen Hyaline Casts 0-2 COVID-19 ([facility]) Positive A COVID-19 Clin Com See Note 10/09/22 10/09/22 15:58 16:44 MCV MCH MCHC RDW Plt Count MPV Immature Gran % (Auto) Neut % (Auto) Lymph % (Auto) [place] % (Auto) Eos % (Auto) Baso % (Auto) Lymph # (Auto) [place] # (Auto) Eos # (Auto) Baso # (Auto) Abs Immat Gran (auto) Absolute Neuts (auto) Absolute Nucleated RBC Nucleated RBC % (auto) PT INR Anion Gap 15 Estim Creat Clear Calc 66.1 Estimated GFR 56 POC Glucose 178 H Random Glucose 226 H Lactic Acid Calcium 8.7 D Magnesium 1.9 Total Bilirubin 0.4 Direct Bilirubin 0.2 AST 29 ALT 26 Alkaline Phosphatase 102 Total Creatine Kinase 325 H B-Natriuretic Peptide Total Protein 7.0 Albumin 3.5 Urine Color Urine Appearance Urine pH Ur Specific [place] Urine Protein Urine Glucose (UA) Urine Ketones Urine Blood Urine Nitrite Ur Leukocyte Esterase Urine RBC Urine WBC Ur Squamous Epith Cells Urine Bacteria Hyaline Casts COVID-19 ([facility]) COVID-19 Clin Com Imaging Radiologist's Impressions: Impressions Chest X-Ray 10/09/22 12:02 IMPRESSION: No acute cardiopulmonary process. Cervical Spine CT 10/09/22 15:34 IMPRESSION: 1. Straightening of the normal cervical lordosis may be secondary to positioning and/or muscle spasm. 2. Mild to moderate multilevel degenerative changes without acute abnormality. Head CT 10/09/22 15:34 IMPRESSION: No acute intracranial pathology. Assessment and Plan (1) COVID-19: Status: Acute Plan 67M PMH CAD obesity, JAIME, htn, hld, bph, DM, presented s/p fall. found to be hypoxic and covid positive acute hypoxic resipratory failure due to covid 19 decadron wean o2 as tolerated CAD asa, statin DM with hyperglycemia basal bolus insulin monitor pocs htn lisinopril, metoprolol obesity weight loss recommended dvt prophylaxis - lovenox full code patient with significant hypoxia, fevers, comorbidities including obesity and DM make patient at risk for further decompensation and likely to require atleast 2 midnights inpatient Time Spent With Patient Time: Total time managing care of this patient today ____ minutes. Quality Stroke Does the patient have a stroke diagnosis?: No VTE Prior VTE?: No VTE Risk Level:: Medical - moderate - high VTE Device Contraindication: Treatment Not Indicated VTE Drug Contraindication: N/A - Med Ordered
--- NOTE | 2022-10-09 19:42 | MHC.EDTECH ---
Patient repositioned and put in a nohemy
[2022-10-09] MEDS: Enoxaparin Sodium 40 MG/0.4 ML SYRINGE SUBCUT (19:44)
--- NOTE | 2022-10-09 20:13 | PC.NURSE ---
Attempt to call report, nurse in a room.
--- NOTE | 2022-10-09 20:58 | PC.NURSE ---
Report given to Alonzo EDMONDS on [facility]
[2022-10-09 21:55] LABS: Glucose, Whole Blood 346 mg/dL (60-115)
[2022-10-09] MEDS: Insulin Glargine,Hum.rec.anlog 100 UNIT/ML 10 ML VIAL 50 UNIT SUBCUT (22:36)
[2022-10-09] MEDS: Metoprolol Tartrate 50 MG TABLET PO (22:36)
[2022-10-09] MEDS: Gabapentin 400 MG CAPSULE 800 MG PO (22:36)
[2022-10-09] MEDS: Insulin Lispro 100 UNIT/ML 3 ML VIAL SUBCUT ×2 (22:37)
[2022-10-09] MEDS: 0.9 % Sodium Chloride Flush 3 ML SYRINGE IVFLUSH (22:37)
[2022-10-10 04:00] VITALS: BP 152/58; PULSE 50; TEMP 35.9; O2SAT 97
[2022-10-10] MEDS: Omeprazole 40 MG CAPSULE.DR PO (06:02)
[2022-10-10 07:27] LABS: Glucose, Whole Blood 264 mg/dL (60-115)
[2022-10-10 07:32] VITALS: BP 150/50; PULSE 49; RESP 20; TEMP 36.2; O2SAT 97
[2022-10-10 07:36] LABS: Hematocrit 38.8 % (42.0-52.0); Hemoglobin 12.6 g/dl (14.0-18.0); Mean Corpuscular HGB Conc 32.5 g/dl (31.0-36.0); Mean Corpuscular Hemoglobin 29.7 pg (27.0-33.0); Mean Corpuscular Volume 91.5 fL (80.0-98.0); Mean Platelet Volume 12.8 fL (9.4-12.4); Platelet Count 146 X10*3/uL (160-400); Red Blood Count 4.24 X10*6/uL (4.60-5.80); Red Cell Distribution Width 12.5 % (11.0-16.0); White Blood Count 5.7 X10*3/uL (4.8-10.8)
[2022-10-10 07:57] LABS: Anion Gap 15 (12-20); Blood Urea Nitrogen 25 mg/dL (9-16); C Reactive Protein 3.03 mg/dL (< or = 0.50); Calcium 9.3 mg/dL (8.4-10.2); Carbon Dioxide 25 mmol/L (22-29); Chloride 102 mmol/L (96-108); Creatinine Clr Calc Pharmacy 72.3; Estimated Glomerular Filt Rate > 60; Glucose Fasting 272 mg/dL (60-99); Magnesium 2.1 mg/dL (1.6-2.6); Potassium 4.4 mmol/L (3.3-5.1); Sodium 138 mmol/L (135-145)
[2022-10-10] MEDS: Insulin Glargine,Hum.rec.anlog 100 UNIT/ML 10 ML VIAL 50 UNIT SUBCUT ×2 (09:49→22:16)
[2022-10-10] MEDS: Insulin Lispro 100 UNIT/ML 3 ML VIAL SUBCUT ×8 (09:50→22:16)
[2022-10-10] MEDS: 0.9 % Sodium Chloride Flush 3 ML SYRINGE IVFLUSH ×3 (09:51→22:17)
[2022-10-10] MEDS: Atorvastatin Calcium 80 MG TABLET PO (09:52)
[2022-10-10] MEDS: lisinopriL 10 MG TABLET PO (09:52)
[2022-10-10] MEDS: Cyanocobalamin (Vitamin B-12) 1,000 MCG TABLET 1000 MCG PO (09:52)
[2022-10-10] MEDS: Cholecalciferol (Vitamin D3) 25 MCG TABLET 50 MCG PO (09:52)
[2022-10-10] MEDS: Aspirin Enteric Coated 81 MG TABLET.DR PO (09:52)
[2022-10-10] MEDS: dexAMETHasone sod phosphate 4 MG/ML VIAL 6 MG IVPUSH (09:52)
[2022-10-10] MEDS: Metoprolol Tartrate 50 MG TABLET PO ×2 (09:52→22:15)
[2022-10-10] MEDS: Gabapentin 400 MG CAPSULE 800 MG PO ×2 (09:52→22:16)
[2022-10-10] MEDS: PARoxetine HCL 40 MG TABLET PO (09:52)
[2022-10-10] MEDS: oxyBUTYnin chloride ER 5 MG TAB.ER.24 10 MG PO (09:53)
--- NOTE | 2022-10-10 09:56 | MHC.CM.PN ---
Patient is Covid (+) and unreachable by phone. CM awaits a return call from Son/Manuel at listed #. CM will follow.
[2022-10-10 11:06] LABS: Glucose, Whole Blood 279 mg/dL (60-115)
[2022-10-10 11:24] VITALS: BP 150/60; PULSE 52; RESP 20; TEMP 36.2; O2SAT 98
--- NOTE | 2022-10-10 12:20 | HO.PM.IMPN ---
Subjective Subjective Date of Service: 10/10/22 Interval History: improving Neurologic Neurologic: Denies Abnormal speech present Physical Exam Vital Signs: Vital Signs: Last Vital Signs Temp 97.2 F 10/10/22 11:24 Pulse 52 10/10/22 11:24 Resp 20 10/10/22 11:24 BP 150/60 H 10/10/22 11:24 Pulse Ox 98 10/10/22 11:24 O2 Del Method Nasal Cannula 10/10/22 11:24 O2 Flow Rate 2 10/10/22 11:24 BMI result Body Mass Index 35.4 Const: General: cooperative and no acute distress Nutritional Appearance: obese Orientation/consciousness: patient oriented x3 Limitations: no limitations HEENT: Head: Yes normal to inspection and Yes atraumatic Ears: hearing grossly normal bilaterally General nose exam: Normal external nose present Face and sinus: Yes normal facial exam Throat: Yes posterior oropharynx normal Eyes: General: appearance normal, both eyes and all related structures Pupils: Equal, round and reactive pupils present EOM: EOMs intact bilaterally Neck: Neck: Yes normal visual inspection, Yes no meningeal signs, No anterior neck swelling and No torticollis Chest: Chest palpation & inspection: normal inspection of the chest, no crepitus and no tenderness Resp: Effort & Inspection: normal respiratory effort and no respiratory distress Auscultation: clear to auscultation bilaterally Cardio: Rate: regular rate Heart sounds: S1 normal heart sound present and S2 normal heart sound present GI: Inspection: Yes normal to inspection Palpation (GI): Soft to palpation, nontender, no guarding and not rigid Back/Spine/Pelvis: Other: No midline cervical/thoracic/lumbar spinous tenderness/step-off or deformity Skin: Rashes: no rashes Wounds: no wounds Neuro: General: patient oriented x3, tone normal, moves all extremities, no meningeal signs, no focal motor deficits and CN's II-XI intact bilaterally Cranial nerves: Yes CN's II-XII intact bilaterally and Yes Equal, round and reactive pupils present Cognition (Neuro): normal cognition Speech: No Abnormal speech present Motor exam (neuro): 5/5 motor strength present throughout Extrem: Other: +b/l LE edema General: Yes normal to inspection Objective Data Active Medications Albuterol Sulfate (Albuterol Sulfate 90 Mcg 8 Gm Inhaler) 2 puff INHALE Q4H PRN PRN Reason: for wheezing Aspirin (Aspirin Enteric Coated 81 Mg Tablet.) 81 mg PO DAILY [facility] Last Admin: 10/10/22 09:52 Dose: 81 mg Documented By: KODY Atorvastatin Calcium (Atorvastatin Calcium 80 Mg Tablet) 80 mg PO DAILY [facility] Last Admin: 10/10/22 09:52 Dose: 80 mg Documented By: KODY Cyanocobalamin (Cyanocobalamin (Vitamin B-12) 1,000 Mcg Tablet) 1,000 mcg PO DAILY [facility] Last Admin: 10/10/22 09:52 Dose: 1,000 mcg Documented By: KODY Dexamethasone Sodium Phosphate (Dexamethasone Sod Phosphate 4 Mg/Ml Vial) 6 mg IVPUSH DAILY [facility] Last Admin: 10/10/22 09:52 Dose: 6 mg Documented By: KODY Dextrose (Dextrose 50 % 25 Gm/50 Ml Syringe) 25 gm IVPUSH Q15M PRN; Protocol PRN Reason: per Hypoglycemia Standing Ord. Enoxaparin Sodium (Enoxaparin Sodium 40 Mg/0.4 Ml Syringe) 40 mg SUBCUT Q24H [facility] Last Admin: 10/09/22 19:44 Dose: 40 mg Documented By: DAVID Gabapentin (Gabapentin 400 Mg Capsule) 800 mg PO BID [facility] Last Admin: 10/10/22 09:52 Dose: 800 mg Documented By: KODY Glucose (Glucose Gel 15 Gm Gel..Gram.) 15 gm PO Q15M PRN; Protocol PRN Reason: per Hypoglycemia Standing Ord. Insulin Glargine (Insulin Glargine,Hum.Rec.Anlog 100 Unit/Ml 10 Ml Vial) 50 unit SUBCUT BID [facility] Last Admin: 10/10/22 09:49 Dose: 50 unit Documented By: KODY Insulin Human Lispro (Insulin Lispro 100 Unit/Ml 3 Ml Vial) 0 unit SUBCUT QIDACHS [facility]; Protocol Last Admin: 10/10/22 09:50 Dose: 6 unit Documented By: KODY Insulin Human Lispro (Insulin Lispro 100 Unit/Ml 3 Ml Vial) 5 unit SUBCUT QIDACHS [facility] Last Admin: 10/10/22 09:50 Dose: 5 unit Documented By: KODY Lisinopril (Lisinopril 10 Mg Tablet) 10 mg PO DAILY [facility]; Protocol Last Admin: 10/10/22 09:52 Dose: 10 mg Documented By: KODY Metoclopramide HCl (Metoclopramide Hcl 10 Mg Tablet) 10 mg PO TIDAC PRN PRN Reason: nausea and vomiting Metoprolol Tartrate (Metoprolol Tartrate 50 Mg Tablet) 50 mg PO BID [facility]; Protocol Last Admin: 10/10/22 09:52 Dose: 50 mg Documented By: KODY Omeprazole (Omeprazole 40 Mg Capsule.Dr) 40 mg PO DAILY@0630 [facility] Last Admin: 10/10/22 06:02 Dose: 40 mg Documented By: PAULA Oxybutynin Chloride (Oxybutynin Chloride Er 5 Mg Tab.Er.24) 10 mg PO DAILY [facility] Last Admin: 10/10/22 09:53 Dose: 10 mg Documented By: KODY Paroxetine HCl (Paroxetine Hcl 40 Mg Tablet) 40 mg PO DAILY [facility] Last Admin: 10/10/22 09:52 Dose: 40 mg Documented By: KODY Polyethylene Glycol (Polyethylene Glycol 3350 17 Gm Powd.Pack) 17 gm PO DAILY PRN PRN Reason: Constipation Sodium Chloride (0.9 % Sodium Chloride Flush 3 Ml Syringe) 3 ml IVFLUSH QSHIFT [facility] Last Admin: 10/10/22 09:51 Dose: 3 ml Documented By: KODY Vitamin D (Cholecalciferol (Vitamin D3) 25 Mcg Tablet) 50 mcg PO DAILY [facility] Last Admin: 10/10/22 09:52 Dose: 50 mcg Documented By: KODY Labs 10/10/22 07:27 10/10/22 07:27 Labs: Laboratory Results - last 24 hr 10/09/22 10/09/22 10/09/22 13:16 13:16 13:16 MCV 91.2 MCH 30.4 MCHC 33.3 RDW 12.6 Plt Count 135 L MPV 13.3 H Immature Gran % (Auto) 0.5 H Neut % (Auto) 75.1 H Lymph % (Auto) 13.7 L [place] % (Auto) 10.6 Eos % (Auto) 0.0 Baso % (Auto) 0.1 Lymph # (Auto) 1.1 L [place] # (Auto) 0.8 Eos # (Auto) 0.0 Baso # (Auto) 0.0 Abs Immat Gran (auto) 0.04 H Absolute Neuts (auto) 5.8 Absolute Nucleated RBC 0.000 Nucleated RBC % (auto) 0.0 PT 11.7 INR 1.0 Anion Gap Estim Creat Clear Calc Estimated GFR POC Glucose Random Glucose Fasting Glucose Lactic Acid 1.1 Calcium Magnesium Total Bilirubin Direct Bilirubin AST ALT Alkaline Phosphatase Total Creatine Kinase C-Reactive Protein B-Natriuretic Peptide Total Protein Albumin Urine Color Urine Appearance Urine pH Ur Specific [place] Urine Protein Urine Glucose (UA) Urine Ketones Urine Blood Urine Nitrite Ur Leukocyte Esterase Urine RBC Urine WBC Ur Squamous Epith Cells Urine Bacteria Hyaline Casts COVID-19 ([facility]) COVID-19 Clin Com 10/09/22 10/09/22 10/09/22 13:16 13:18 14:48 MCV MCH MCHC RDW Plt Count MPV Immature Gran % (Auto) Neut % (Auto) Lymph % (Auto) [place] % (Auto) Eos % (Auto) Baso % (Auto) Lymph # (Auto) [place] # (Auto) Eos # (Auto) Baso # (Auto) Abs Immat Gran (auto) Absolute Neuts (auto) Absolute Nucleated RBC Nucleated RBC % (auto) PT INR Anion Gap Estim Creat Clear Calc Estimated GFR POC Glucose Random Glucose Fasting Glucose Lactic Acid Calcium Magnesium Total Bilirubin Direct Bilirubin AST ALT Alkaline Phosphatase Total Creatine Kinase C-Reactive Protein B-Natriuretic Peptide 415 H Total Protein Albumin Urine Color Yellow Urine Appearance Clear Urine pH 6.5 Ur Specific [place] 1.020 Urine Protein 100 (2+) H Urine Glucose (UA) Negative Urine Ketones Negative Urine Blood Negative Urine Nitrite Negative Ur Leukocyte Esterase Negative Urine RBC 0-2 Urine WBC 0-5 Ur Squamous Epith Cells 0-2 Urine Bacteria None Seen Hyaline Casts 0-2 COVID-19 ([facility]) Positive A COVID-19 Clin Com See Note 10/09/22 10/09/22 10/09/22 15:58 16:44 21:51 MCV MCH MCHC RDW Plt Count MPV Immature Gran % (Auto) Neut % (Auto) Lymph % (Auto) [place] % (Auto) Eos % (Auto) Baso % (Auto) Lymph # (Auto) [place] # (Auto) Eos # (Auto) Baso # (Auto) Abs Immat Gran (auto) Absolute Neuts (auto) Absolute Nucleated RBC Nucleated RBC % (auto) PT INR Anion Gap 15 Estim Creat Clear Calc 66.1 Estimated GFR 56 POC Glucose 178 H 346 H Random Glucose 226 H Fasting Glucose Lactic Acid Calcium 8.7 D Magnesium 1.9 Total Bilirubin 0.4 Direct Bilirubin 0.2 AST 29 ALT 26 Alkaline Phosphatase 102 Total Creatine Kinase 325 H C-Reactive Protein B-Natriuretic Peptide Total Protein 7.0 Albumin 3.5 Urine Color Urine Appearance Urine pH Ur Specific [place] Urine Protein Urine Glucose (UA) Urine Ketones Urine Blood Urine Nitrite Ur Leukocyte Esterase Urine RBC Urine WBC Ur Squamous Epith Cells Urine Bacteria Hyaline Casts COVID-19 ([facility]) COVID-19 Clin Com 10/10/22 10/10/22 10/10/22 07:14 07:27 07:27 MCV 91.5 MCH 29.7 MCHC 32.5 RDW 12.5 Plt Count 146 L MPV 12.8 H Immature Gran % (Auto) Neut % (Auto) Lymph % (Auto) [place] % (Auto) Eos % (Auto) Baso % (Auto) Lymph # (Auto) [place] # (Auto) Eos # (Auto) Baso # (Auto) Abs Immat Gran (auto) Absolute Neuts (auto) Absolute Nucleated RBC 0.000 Nucleated RBC % (auto) 0.0 PT INR Anion Gap 15 Estim Creat Clear Calc 72.3 Estimated GFR > 60 POC Glucose 264 H Random Glucose Fasting Glucose 272 H Lactic Acid Calcium 9.3 D Magnesium 2.1 Total Bilirubin Direct Bilirubin AST ALT Alkaline Phosphatase Total Creatine Kinase C-Reactive Protein 3.03 H B-Natriuretic Peptide Total Protein Albumin Urine Color Urine Appearance Urine pH Ur Specific [place] Urine Protein Urine Glucose (UA) Urine Ketones Urine Blood Urine Nitrite Ur Leukocyte Esterase Urine RBC Urine WBC Ur Squamous Epith Cells Urine Bacteria Hyaline Casts COVID-19 ([facility]) COVID-19 Clin Com 10/10/22 11:02 MCV MCH MCHC RDW Plt Count MPV Immature Gran % (Auto) Neut % (Auto) Lymph % (Auto) [place] % (Auto) Eos % (Auto) Baso % (Auto) Lymph # (Auto) [place] # (Auto) Eos # (Auto) Baso # (Auto) Abs Immat Gran (auto) Absolute Neuts (auto) Absolute Nucleated RBC Nucleated RBC % (auto) PT INR Anion Gap Estim Creat Clear Calc Estimated GFR POC Glucose 279 H Random Glucose Fasting Glucose Lactic Acid Calcium Magnesium Total Bilirubin Direct Bilirubin AST ALT Alkaline Phosphatase Total Creatine Kinase C-Reactive Protein B-Natriuretic Peptide Total Protein Albumin Urine Color Urine Appearance Urine pH Ur Specific [place] Urine Protein Urine Glucose (UA) Urine Ketones Urine Blood Urine Nitrite Ur Leukocyte Esterase Urine RBC Urine WBC Ur Squamous Epith Cells Urine Bacteria Hyaline Casts COVID-19 ([facility]) COVID-19 Clin Com Assessment and Plan (1) COVID-19: Status: Acute Plan 67M PMH CAD obesity, JAIME, htn, hld, bph, DM, presented s/p fall. found to be hypoxic and covid positive acute hypoxic respiratory failure due to covid 19 complicated by mechanical fall decadron wean o2 as tolerated CAD asa, statin DM with hyperglycemia basal bolus insulin monitor pocs htn lisinopril, metoprolol obesity weight loss recommended dvt prophylaxis - lovenox full code reason for continued hospitalization:still sob, hypoxic Time Spent With Patient Time: Total time managing care of this patient today ____ minutes. Quality Stroke Does the patient have a stroke diagnosis?: No VTE Prior VTE?: No VTE Risk Level:: Medical - moderate - high VTE Device Contraindication: Treatment Not Indicated VTE Drug Contraindication: N/A - Med Ordered
--- NOTE | 2022-10-10 13:17 | MHC.CM.PN ---
CM spoke with Son/HCP/Manuel, who provided CM with an additional Contact/Daughter/Maite @ [phone]. Patient lives alone in an apartment and he uses a cane to assist with mobility. 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 CM has initiated and will follow for dc planning. PCP is Dr. Jerry Persaud.
[2022-10-10 14:58] VITALS: BP 156/69; PULSE 55; RESP 18; TEMP 36.7; O2SAT 97
[2022-10-10 16:16] LABS: Glucose, Whole Blood 257 mg/dL (60-115)
[2022-10-10] MEDS: Enoxaparin Sodium 40 MG/0.4 ML SYRINGE SUBCUT (17:48)
[2022-10-10 19:48] VITALS: BP 157/67; PULSE 53; RESP 18; TEMP 36.7; O2SAT 97
[2022-10-10 20:26] LABS: Glucose, Whole Blood 288 mg/dL (60-115)
[2022-10-10 23:25] VITALS: BP 162/70; PULSE 50; RESP 17; TEMP 36.1; O2SAT 95
[2022-10-11 04:00] VITALS: BP 140/71; PULSE 64; RESP 17; TEMP 36; O2SAT 96
[2022-10-11] MEDS: Omeprazole 40 MG CAPSULE.DR PO (05:16)
[2022-10-11 07:16] LABS: Glucose, Whole Blood 166 mg/dL (60-115)
[2022-10-11 07:20] LABS: Hematocrit 34.4 % (42.0-52.0); Hemoglobin 11.5 g/dl (14.0-18.0); Mean Corpuscular HGB Conc 33.4 g/dl (31.0-36.0); Mean Corpuscular Hemoglobin 30.2 pg (27.0-33.0); Mean Corpuscular Volume 90.3 fL (80.0-98.0); Platelet Count 137 X10*3/uL (160-400); Red Blood Count 3.81 X10*6/uL (4.60-5.80); Red Cell Distribution Width 12.4 % (11.0-16.0); White Blood Count 7.8 X10*3/uL (4.8-10.8)
[2022-10-11 07:25] LABS: Anion Gap 13 (12-20); Blood Urea Nitrogen 28 mg/dL (9-16); Carbon Dioxide 27 mmol/L (22-29); Chloride 104 mmol/L (96-108); Creatinine Clr Calc Pharmacy 76.9; Estimated Glomerular Filt Rate > 60; Glucose Fasting 171 mg/dL (60-99); Potassium 4.4 mmol/L (3.3-5.1); Sodium 140 mmol/L (135-145)
[2022-10-11 07:39] VITALS: BP 140/60; PULSE 52; RESP 20; TEMP 36.8; O2SAT 98
[2022-10-11] MEDS: Cholecalciferol (Vitamin D3) 25 MCG TABLET 50 MCG PO (09:05)
[2022-10-11] MEDS: Cyanocobalamin (Vitamin B-12) 1,000 MCG TABLET 1000 MCG PO (09:06)
[2022-10-11] MEDS: Aspirin Enteric Coated 81 MG TABLET.DR PO (09:06)
[2022-10-11] MEDS: Atorvastatin Calcium 80 MG TABLET PO (09:06)
[2022-10-11] MEDS: PARoxetine HCL 40 MG TABLET PO (09:06)
[2022-10-11] MEDS: Gabapentin 400 MG CAPSULE 800 MG PO (09:06)
[2022-10-11] MEDS: lisinopriL 10 MG TABLET PO (09:06)
[2022-10-11] MEDS: oxyBUTYnin chloride ER 5 MG TAB.ER.24 10 MG PO (09:07)
[2022-10-11] MEDS: dexAMETHasone sod phosphate 4 MG/ML VIAL 6 MG IVPUSH (09:07)
[2022-10-11] MEDS: Insulin Lispro 100 UNIT/ML 3 ML VIAL SUBCUT ×4 (09:08→12:11)
[2022-10-11] MEDS: 0.9 % Sodium Chloride Flush 3 ML SYRINGE IVFLUSH (09:09)
[2022-10-11] MEDS: Insulin Glargine,Hum.rec.anlog 100 UNIT/ML 10 ML VIAL 50 UNIT SUBCUT (09:09)
--- NOTE | 2022-10-11 09:15 | PC.NURSE ---
patient removed from 02 support sat is 96% on room air
--- NOTE | 2022-10-11 09:59 | PM.DS ---
DS: Providers Provider Date of Service: 10/11/22 Date of admission: 10/09/22 18:01 Primary care physician: Jerry Persaud MD DS: Diagnosis Discharge Diagnosis (1) COVID-19: Status: Acute DS: Summary Hospital Course Hospital Course: from initial hpi: 67M PMH CAD obesity, JAIME, htn, hld, bph, DM, presented s/p fall. patient reports about 1 week of feeling ill. reports generalized fatigue, weakness, subjective fevers, denies sick contacts. denies sob, chest pain, cough. on day of presentation had mechanical fall, was unable to get up for 5 hours. eventually managed to contact employees at home where he lives and ems was called, in ED febrile, hypoxic, covid positive. hospital course: patient was admitted for acute hypoxic respiratory failure due to covid 19 complicated by mechanical fall. he was treated with decadron and weaned off o2. sob resolved. for CAD was continue on asa and statin. for DM with hyperglcycemia was conitnued on basal boluds insulin. for htn on lisinopril and metoprolol. for obesity wieght loss recommended. patient will be discharged home with 3 more days of prednisone. Time Spent with Patient Time attestation: Total time managing care of this patient today ____ minutes. Discharge coordination time: Greater than 30 minutes Quality: Safe Use of Opioids Does Pt have an Active Cancer Diagnosis on the Problem List?: No Quality: Stroke Does the patient have a stroke diagnosis?: No Physical Exam Vital Signs: Vital Signs: Last Vital Signs Temp 98.3 F 10/11/22 07:39 Pulse 52 10/11/22 07:39 Resp 20 10/11/22 07:39 BP 140/60 H 10/11/22 07:39 Pulse Ox 98 10/11/22 07:39 O2 Del Method Nasal Cannula 10/11/22 07:39 O2 Flow Rate 2 10/11/22 07:39 BMI result Body Mass Index 35.4 General: AO X 3, no acute distress Resp: CTA bilateral, no accessory muscles used CVS: S1,S2,RRR GI: soft, non tender, non distended Neuro: motor grossly intact, alert Psych: appropriate affect, appropriate insight DS: Data Data Completed and Pending Completed studies during hospitalization [Text1]: Procedures Drainage of Perineum Subcutaneous Tissue and Fascia, Open Approach (05/09/20) Labs on day of discharge: Laboratory Results - last 24 hr 10/10/22 10/10/22 10/10/22 11:02 15:59 19:44 WBC RBC Hgb Hct MCV MCH MCHC RDW Plt Count MPV Absolute Nucleated RBC Nucleated RBC % (auto) Sodium Potassium Chloride Carbon Dioxide Anion Gap BUN Creatinine Estim Creat Clear Calc Estimated GFR POC Glucose 279 H 257 H 288 H Fasting Glucose Calcium 10/11/22 10/11/22 10/11/22 06:45 06:45 07:10 WBC 7.8 RBC 3.81 L Hgb 11.5 L Hct 34.4 L MCV 90.3 MCH 30.2 MCHC 33.4 RDW 12.4 Plt Count 137 L MPV 13.0 H Absolute Nucleated RBC 0.000 Nucleated RBC % (auto) 0.0 Sodium 140 Potassium 4.4 Chloride 104 Carbon Dioxide 27 Anion Gap 13 BUN 28 H Creatinine 1.10 Estim Creat Clear Calc 76.9 Estimated GFR > 60 POC Glucose 166 H Fasting Glucose 171 H Calcium 9.0 Preliminary micro results at discharge 10/09/22 13:14 Blood Culture - Preliminary Blood - Venous No growth after 24 hours. 10/09/22 13:18 Blood Culture - Preliminary Blood - Venous No growth after 24 hours. Discharge Plan Discharge Anticipated Discharge Date/Time: 10/11/22 09:56 Patient Disposition: Home, Self-Care Discharge Diagnosis: covid Referrals: Jerry Persaud MD [Primary Care Provider] - 1 Week Discharge Medications: New prednisone 20 mg tablet 40 mg PO DAILY Qty: 6 0RF Continued fluticasone propionate 50 mcg/actuation spray,suspension 1 spray intranasal DAILY Qty: 16 2RF aspirin 81 mg tablet,delayed release (DR/EC) 81 mg PO DAILY Qty: 90 3RF insulin glargine [Lantus Solostar U-100 Insulin] 100 unit/mL (3 mL) insulin pen 80 unit subcut BID 30 Days Qty: 48 3RF (DME) blood-glucose meter [OneTouch Ultra2 Meter] Kit See Rx Instructions .Route Qty: 1 0RF Rx Instructions: As directed- To test blood sugar three times daily (DME) pen needle, diabetic [Lite Touch Insulin Pen [place]] 31 gauge x 5/16 needle See Rx Instructions .Route Qty: 100 12RF Rx Instructions: Use 3 times daily (DME) lancets [OneTouch Delica Lancets] 33 gauge misc See Rx Instructions .Route Qty: 100 12RF Rx Instructions: As directed 3 times a day cyanocobalamin (vitamin B-12) 1,000 mcg tablet 1,000 mcg PO DAILY 90 Days Qty: 90 3RF metoprolol tartrate 50 mg tablet 50 mg PO BID Qty: 180 1RF albuterol sulfate 90 mcg/actuation HFA aerosol inhaler 2 puff PO Q4-6H PRN (Reason: for wheezing) Qty: 8.5 2RF paroxetine HCl 40 mg tablet 40 mg PO DAILY Qty: 90 0RF oxybutynin chloride 10 mg tablet extended release 24hr 10 mg PO DAILY Qty: 90 0RF atorvastatin 80 mg tablet 80 mg PO DAILY Qty: 90 1RF gabapentin 400 mg capsule 800 mg PO BID Qty: 120 3RF Rx Instructions: take 2 capsules orally twice a day lisinopril 10 mg tablet 10 mg PO DAILY Qty: 90 0RF metoclopramide HCl [Reglan] 10 mg tablet 10 mg PO AC PRN (Reason: nausea and vomiting) Qty: 20 0RF dicyclomine 20 mg tablet 20 mg PO QID PRN (Reason: abdominal pain) Qty: 20 0RF ondansetron HCl 4 mg tablet 4 mg PO Q6H PRN (Reason: nausea and vomiting) Qty: 14 0RF polyethylene glycol 3350 [Miralax] 17 gram/dose powder 17 g PO DAILY PRN (Reason: Constipation) insulin lispro [Humalog KwikPen Insulin] 100 unit/mL insulin pen 15 - 20 unit subcut BID (DME) SHOWER CHAIR See Rx Instructions .Route .MEDSUPPLY Qty: 1 0RF Rx Instructions: As directed (DME) SHOWER CHAIR See Rx Instructions .Route .MEDSUPPLY Qty: 1 0RF Rx Instructions: As directed omeprazole 40 mg capsule,delayed release(DR/EC) 40 mg PO DAILY 30 Days Qty: 30 3RF (DME) insulin syr/ndl U100 half gareth 0.5 mL 30 gauge x 5/16 syringe See Rx Instructions .Route Qty: 100 12RF Rx Instructions: Use 4 times daily cholecalciferol (vitamin D3) 50 mcg (2,000 unit) capsule 50 mcg PO DAILY 90 Days Qty: 90 3RF (DME) blood-glucose meter [OneTouch Ultra2 Meter] Misc See Rx Instructions .ROUTE TID Qty: 1 Rx Instructions: As directed (DME) FreeStyle [place] 2 Sensor Kit See Rx Instructions .Route Qty: 2 5RF Rx Instructions: As directed change every 14 days (DME) FreeStyle [place] 2 [place] Misc See Rx Instructions .Route Qty: 1 0RF Rx Instructions: As directed Discharge Orders: Discharge Order (Routine); Ordered 10/11/22 Ordered By: Jean Kohli Diet: Advance to usual diet Activity on Discharge: As tolerated Stand Alone Forms: Patient Portal Discharge page Care Plan Goals: recovery Health Concerns: covid Plan of Treatment: 3 more days prednsione Assessment: see above
[2022-10-11 11:05] VITALS: BP 148/40; PULSE 50; RESP 20; TEMP 36.1; O2SAT 93
[2022-10-11 11:18] LABS: Glucose, Whole Blood 163 mg/dL (60-115)
== END 2022-10-11 14:14 | disposition home or self-care (01) | DRG 177 ==
LOC: HO.ED 14:02 → HO.EDOVER 18:21 → HO.IMC 20:03
PROVIDERS: Physician Assistant; Admitting Provider Internal Medicine; Emergency Provider Emergency Medicine; PCP Internal Medicine; Visit Provider Internal Medicine
DX: U07.1 COVID-19 (principal); J96.01 Acute respiratory failure with hypoxia; E11.42 Type 2 diabetes mellitus with diabetic polyneuropathy; G47.33 Obstructive sleep apnea (adult) (pediatric); I25.10 Atherosclerotic heart disease of native coronary artery without angina pectoris; E11.65 Type 2 diabetes mellitus with hyperglycemia; I10 Essential (primary) hypertension; E66.9 Obesity, unspecified; Z68.35 Body mass index [BMI] 35.0-35.9, adult; E78.00 Pure hypercholesterolemia, unspecified; Z79.4 Long term (current) use of insulin; Z79.51 Long term (current) use of inhaled steroids; Z79.82 Long term (current) use of aspirin; Z79.899 Other long term (current) drug therapy
CPT/HCPCS: 36415; 70450; 71045; 72125; 80048; 80076; 81001; 82550; 82947; 83605; 83735; 83880; 84484; 85025; 85027; 85610; 86140; 87040; 87635; 93005; 99285; J0696; J1100; J1650

== ENCOUNTER → 2022-10-09 11:52 | Outpatient (BNV) | payer OTHER, SELFPAY | PROVIDERS: Admitting Provider Internal Medicine; Emergency Provider Emergency Medicine; PCP Internal Medicine; Visit Provider Internal Medicine | DX: I49.1 Atrial premature depolarization (principal) | CPT/HCPCS: 93010 ==

== ENCOUNTER → 2022-10-09 12:12 | Outpatient (BNV) | payer OTHER, SELFPAY | PROVIDERS: Emergency Provider Emergency Medicine; PCP Internal Medicine; Visit Provider Internal Medicine | DX: U07.1 COVID-19 (principal); W19.XXXA Unspecified fall, initial encounter | CPT/HCPCS: 99222; 99232; 99239 ==

== ENCOUNTER 2022-10-14 12:41 | Outpatient (AMB) | payer OTHER, SELFPAY ==
--- NOTE | 2022-10-14 12:43 | MHC.PC.OV ---
Vital Signs 10/14/22 12:53 BP 120/72 Blood Pressure Location Lt brachial Position Sitting Pulse 70 Pulse Source Pulse Oximeter Pulse Oximetry (%) 98 Oxygen Delivery Method Room Air Intake Visit Reasons: 3 month f/u Bit Grinder Required: Yes Accompanied by: Self / Same As Patient Allergies hydromorphone [Dilaudid] Adverse Reaction (Unknown, Verified 10/14/22 13:11) confusion From DILAUDID Adverse Reaction (Severe, Uncoded 10/14/22 13:11) CONFUSION/HALLUCIATIONS From PERCOCET Adverse Reaction (Intermediate, Uncoded 10/14/22 13:11) AGITATION Medication List - Last Reconciled 10/14/22 by Jerry Persaud MD albuterol sulfate 90 mcg/actuation 2 puffs PO Q4-6H PRN aspirin 81 mg PO DAILY atorvastatin 80 mg PO DAILY blood-glucose meter (G[employer] Ultra2 Meter kit) As directed- To test blood sugar three times daily blood-glucose meter (CORD:USE Cord Blood Bankuch Ultra2 Meter) As directed cholecalciferol (vitamin D3) 50 mcg PO DAILY 90 days cyanocobalamin (vitamin B-12) 1,000 mcg PO DAILY 90 days dicyclomine 20 mg PO QID PRN flash glucose scanning reader ([place] SoftwareStyle [place] 2 [place]) As directed flash glucose sensor (FreeStyle [place] 2 Sensor kit) As directed change every 14 days fluticasone propionate 50 mcg/actuation 1 spray intranasal DAILY gabapentin 800 mg (2 x 400 mg) PO BID insulin glargine (Lantus Solostar U-100 Insulin) 80 units (0.8 mL) subcut BID 30 days insulin lispro (Humalog KwikPen (U-100) Insulin) 15 - 20 units subcut BID insulin syr/ndl U100 half gareth Use 4 times daily lancets (Gift[employer] Delica Lancets) As directed 3 times a day lisinopril 10 mg PO DAILY metoclopramide HCl (Reglan) 10 mg PO AC PRN metoprolol tartrate 50 mg PO BID omeprazole 40 mg PO DAILY 30 days ondansetron HCl 4 mg PO Q6H PRN oxybutynin chloride ER 10 mg PO DAILY paroxetine HCl 40 mg PO DAILY pen needle, diabetic (Lite Touch Insulin Pen [place]) Use 3 times daily polyethylene glycol 3350 (Miralax) 17 grams PO DAILY PRN prednisone 40 mg (2 x 20 mg) PO DAILY [SHOWER CHAIR As directed] [SHOWER CHAIR As directed] Tobacco use date assessed: 06/10/22 HPI 3 month f/u HPI Details Patient comes in today for his HDF follow up visit He was just discharged from [facility] [place] a few days ago - was admitted briefly last week for COVID-19 when he presented to the ER with increasing fatigue and weakness and following a fall wherein he was on the floor for about 5 hours and could not get up on his own He was started on Decadron and was quickly weaned off when his respiratory symptoms improved; was switched over to oral prednisone and he was promptly discharged home with instructions to continue on his oral Prednisone x 3 more days Patient states that he is currently experiencing some overall weakness and on and off dizziness but feels okay otherwise He denies any fever or headaches Denies any chest pains, no increased SOB No nausea/vomiting, no abdominal pain No change in bowel habits noted He had his follow up labs done last month - to discuss his results Would also like to get Rx for a walker as he states that he has been feeling unsteady lately and no longer feels that the cane is enough to help keep him from falling PFS Medical History (Updated 10/21/22 @ 02:35 by Jerry Persaud MD) Benign essential hypertension Benign prostatic hyperplasia with urinary frequency Constipation Coronary artery disease Diabetes mellitus Diabetic polyneuropathy Gastritis and duodenitis Hyperkalemia Intertrigo Major depressive disorder, recurrent Obesity (BMI 30-39.9) Obstructive sleep apnea Pure hypercholesterolemia Vitamin B12 deficiency Vitamin D deficiency Surgical History History of prostate surgery (~12/04/10) History of quadruple bypass (~2005) Hx of cataract extraction (~2011) Hx of cholecystectomy (~2007) Hx of cystoscopy Family History Father Lung cancer Mother Diabetes Hypertension Stomach cancer Social History Household Members: None Housing: Apartment Do you presently have visiting nurse or other home services: No Alcohol intake: never Patient Tobacco Use Status: Former Tobacco user Quit Date: 17 years ago e-Cigarette/Vaping Use: Never Used Second Hand Smoke Exposure: No Advance Directives Date on File: 05/09/20 service: No Current occupational status: disabled Cognitive needs: Yes (cane) Hearing needs: No Vision needs: Yes Questionnaire PHQ-9 Over the last 2 weeks, how often have you been bothered by any of the following problems? 1. Little interest or pleasure in doing things: several days 2. Feeling down, depressed, or hopeless: several days 3. Trouble falling or staying asleep, or sleeping too much: several days 4. Feeling tired or having little energy: several days 5. Poor appetite or overeating: several days 6. Feeling bad about yourself - or that you are a failure or have let yourself or your family down: not at all 7. Trouble concentrating on things, such as reading the newspaper or watching television: not at all 8. Moving or speaking so slowly that other people could have noticed. Or the opposite - being so fidgety or restless that you have been moving around a lot more than usual: not at all 9. Thoughts that you would be better off or of hurting yourself in some way: not at all Total score: 5 Depression Screening Interpretation: Positive Depression Screening Follow-up: Existing condition and In treatment 63266 - PHQ-9 Billing: Yes Source: Developed by Drs. Steven Miller, Monie Garduno, Trevor Lin and colleagues, with an educational kwabena from [employer]. Thrive Questionnaire Date Thrive assessed: 10/14/22 I am a: Patient What is your living situation today?: I have a steady place to live Within the past 12 months, did the food you bought not last and you didn't have the money to get more?: Never true Within the past 12 months, did you worry whether your food would run out before you got money to buy more?: Never true Do you have trouble paying for medicines?: No Do you have trouble getting transportation to medical appointments?: No Do you have trouble paying your heating and electricity bill?: No Do you have trouble taking care of your child, family member or friend?: No Do you have trouble with day-to-day activities such as bathing, preparing meals, shopping, managing finances, etc.?: No Are you currently unemployed and looking for a job?: No Are you interested in more education?: No Please select the resources that you would like help with: None Currently or been in a relationship where the following occur: no concerns reported AUDIT C Alcohol Use Questionnaire (AUDIT-C) 1. How often do you have a drink containing alcohol?: Never 3. How often do you have six or more drinks on one occasion?: Never Total Score: 0 Score Reviewed/Action Taken: Yes CHEL-7 AMB Questionnaire CHEL-7 Date CHEL - 7 assessed: 10/14/22 Feeling nervous, anxious, or on edge: 1 = Several days Not being able to stop or control worryin = Several days Worrying too much about different things: 1 = Several days Trouble relaxin = Several days Being so restless that it is hard to sit still: 1 = Several days Becoming easily annoyed or irritable: 1 = Several days Feeling afraid as if something awful might happen: 1 = Several days Total CHEL-7 score (0-4 normal; 5-9 mild; 10-14 moderate; 15-21 severe): 7 Source: Developed by Drs. Steven Miller, Monie Garduno, Trevor Lin and colleagues, with an educational kwabena from [employer]. Review of Systems Const Denies chills, Reports fatigue, Denies fever(s) and Denies headache(s) ENT Denies dysphagia, Reports dizziness (on and off), Denies otalgia, Denies headache(s), Denies neck pain, Denies odynophagia and Denies sore throat Card Denies chest pain, Denies rapid heart rate, Denies irregular heart rhythm, Denies palpitations and Reports dyspnea on exertion (mild) Resp Denies chest congestion, Denies cough, Reports dyspnea on exertion (mild) and Denies wheezing GI Denies abdominal pain, Denies constipation, Denies dysphagia, Denies heartburn, Denies diarrhea, Denies nausea, Denies odynophagia and Denies vomiting Denies difficulty urinating, Denies dysuria and Denies urinary frequency Musc Reports back pain (over the lower back - chronic), Denies joint swelling and Denies neck pain Skin/Breast Denies rash Neuro Reports dizziness (on and off), Denies headache(s) and Reports radicular pain (in both legs, on and off) Endo Reports fatigue and Denies palpitations Aller/Immun Denies wheezing Physical exam (Primary Care) Vital Signs: Last Vital Signs Pulse 70 10/14/22 12:53 BP 120/72 10/14/22 12:53 Pulse Ox 98 10/14/22 12:53 Oxygen Delivery Method Room Air 10/14/22 12:53 Tobacco/Smoking Status: Tobacco use Status Tobacco use date assessed 06/10/22 10/14/22 12:45 Patient Tobacco Use Status Former Tobacco user 10/14/22 12:45 e-Cigarette/Vaping Use Never Used 10/14/22 12:45 PHQ-9: PHQ-9 Score PHQ-9: Total score 5 10/14/22 13:41 Depression Screening Interpretation: Positive Depression Screening Follow-up: Existing condition and In treatment Thrive Assessment: Date of Thrive Assessment Date Thrive assessed 10/14/22 10/14/22 12:54 Currently or been in a relationship where the following occur: no concerns reported Const General: no acute distress and alert HENMT Ears: TM's normal bilaterally and EAC's normal Throat: Yes posterior oropharynx normal and Yes tonsils normal (no TP congestion) Neck Neck: Yes no lymphadenopathy and Yes supple Thyroid: Thyroid normal Resp Auscultation: clear to auscultation bilaterally, no rales and no wheezes Cardio Rate: regular rate Rhythm: regular rhythm Heart sounds: no murmurs GI Palpation (GI): Soft to palpation, nontender and not rigid Auscultation: normal bowel sounds General: Yes no CVA tenderness Back/Spine/Pelvis Back: no CVA tenderness Thoracic/Lumbar Spine: lumbar spinal tenderness Skin Rashes: no rashes Extrem Other: (+) healed longitudinal scars over the medial aspect of both lower legs, the result of his quadruple bypass done back in 2005 General: Yes no clubbing, cyanosis or edema Results Reviewed Results Reviewed: Laboratory Tests 09/09/22 09/09/22 09/09/22 09:40 09:41 09:41 WBC Hgb Hct Plt Count Sodium Potassium Creatinine Estimated GFR Fasting Glucose Hemoglobin A1c % 7.6 Calcium Magnesium AST ALT Triglycerides 251 Cholesterol 146 LDL Cholesterol, Calc 69 HDL Cholesterol 27 25-OH Vitamin D Total 36.6 TSH 1.07 Ur Specific [place] Urine Protein Urine Glucose (UA) Urine Blood Microalb/Creat Ratio 141.4 10/09/22 10/09/22 10/10/22 14:48 16:44 07:27 WBC Hgb Hct Plt Count Sodium Potassium Creatinine Estimated GFR Fasting Glucose Hemoglobin A1c % Calcium Magnesium 2.1 AST 29 ALT 26 Triglycerides Cholesterol LDL Cholesterol, Calc HDL Cholesterol 25-OH Vitamin D Total TSH Ur Specific [place] 1.020 Urine Protein 100 (2+) H Urine Glucose (UA) Negative Urine Blood Negative Microalb/Creat Ratio 10/11/22 10/11/22 06:45 06:45 WBC 7.8 Hgb 11.5 L Hct 34.4 L Plt Count 137 L Sodium 140 Potassium 4.4 Creatinine 1.10 Estimated GFR > 60 Fasting Glucose 171 H Hemoglobin A1c % Calcium 9.0 Magnesium AST ALT Triglycerides Cholesterol LDL Cholesterol, Calc HDL Cholesterol 25-OH Vitamin D Total TSH Ur Specific [place] Urine Protein Urine Glucose (UA) Urine Blood Microalb/Creat Ratio Assessment and Plan Assessment & Plan (1) COVID-19: Code(s): U07.1 - COVID-19 Plan: Resolving; S/P Tx with Decadron followed by oral Prednisone Patient states that aside from some overall weakness and fatigue, he currently does not have any increased respiratory symptoms Have advised bed rest, increased oral fluids and symptomatic Tx with OTC meds PRN for the next few days (2) Frequent falls: Code(s): R29.6 - Repeated falls Plan: S/P mechanical fall last week wherein he was on the floor for about 5 hours and could not get up unassisted Reinforced fall precautions Per request, will provide patient with Rx for a walker to help improve his stability/mobility and minimize risks of falling (3) Diabetes mellitus: Code(s): E11.9 - Type 2 diabetes mellitus without complications Qualifiers: Diabetes mellitus type: type 2 Diabetes mellitus extermination supervisor insulin use: with extermination supervisor use Diabetes mellitus complication status: with neurologic complications Diabetes mellitus complication detail: with polyneuropathy Qualified Code(s): E11.42 - Type 2 diabetes mellitus with diabetic polyneuropathy; Z79.4 - custodial (current) use of insulin Plan: HgbA1c was at 7.6% on his labs done last month - goal is <7.0% Reinforced diabetic diet - is now seeing the diabetic school curriculum developer for diet counseling / education Continue Humalog Kwikpen up to 50 units BID per sliding scale, Lantus 80 units BID and Invokana 100 mg Q AM Follow up with endocrinology (Dr. Lucas) as scheduled (4) Diabetic polyneuropathy: Code(s): E11.42 - Type 2 diabetes mellitus with diabetic polyneuropathy Qualifiers: Diabetes mellitus type: type 2 Qualified Code(s): E11.42 - Type 2 diabetes mellitus with diabetic polyneuropathy Plan: Continue Gabapentin 400 mg BID, Tramadol 50 mg TID PRN and Duloxetine 30 mg QD Reminded again that the best way to slow down the progression of his neuropathy is to get his diabetes under control, with goal of HgbA1c of at least <7.0% or 7.5% (5) Coronary artery disease: Comment: 2005 Code(s): I25.10 - Atherosclerotic heart disease of [place] coronary artery without angina pectoris Qualifiers: Coronary Disease-Associated Artery/Lesion type: [place] artery [place] vs. transplanted heart: [place] heart Associated angina: without angina Qualified Code(s): I25.10 - Atherosclerotic heart disease of [place] coronary artery without angina pectoris Plan: S/P quadruple bypass in 2005 Continue Aspirin 81 mg QD and Metoprolol 50 mg BID Follow up with cardiology as scheduled - was seeing Dr. Zhou for cardiology follow up in the past but he was discharged recently due to poor compliance; he has been referred to [facility] [place] Cardiology since (6) Pure hypercholesterolemia: Code(s): E78.00 - Pure hypercholesterolemia, unspecified Plan: Results of his labs done last month reviewed and discussed with patient Reinforced low cholesterol diet Continue Atorvastatin 80 mg QD Will recheck his labs and fasting lipids in 3 months for follow up (7) Benign essential hypertension: Code(s): I10 - Essential (primary) hypertension Plan: Reinforced low-sodium diet - goal is systolic BP of at least 130 mm or less Continue Lisinopril 10 mg QD and Metoprolol 50 mg BID (8) Gastritis and duodenitis: Code(s): K29.90 - Gastroduodenitis, unspecified, without bleeding Plan: (+) gastritis and duodenitis on EGD done by Dr. Chavis in 2008 Reinforced dietary restrictions in gastritis Continue Omeprazole 40 mg QD Follow up with GI as scheduled (9) Obstructive sleep apnea: Code(s): G47.33 - Obstructive sleep apnea (adult) (pediatric) Plan: (+) Hx of JAIME - has CPAP device but states that he has not been using it as he had more trouble sleeping when he tried using it for the first time States that he feels that he sleeps well enough without it and denies any daytime somnolence fatigue (10) Obesity (BMI 30-39.9): Code(s): E66.9 - Obesity, unspecified Plan: Reinforced diet/exercise as tolerated/lose weight Plan Follow up in 3 months Orders: Orders Hemoglobin A1c 3 Months E11.9 - Type 2 diabetes mellitus without complications Lipid Panel 3 Months E78.00 - Pure hypercholesterolemia, unspecified Complete Blood Count Auto Diff 3 Months I10 - Essential (primary) hypertension Comprehensive [place]. Panel Fast 3 Months E78.00 - Pure hypercholesterolemia, unspecified TSH reflex Free T4 3 Months E78.00 - Pure hypercholesterolemia, unspecified Microalbumin, Random (w Creat) 3 Months E11.9 - Type 2 diabetes mellitus without complications UA CC w/rflx Micro + Cult 3 Months R30.0 - Dysuria Vitamin D 25-OH Total 3 Months E55.9 - Vitamin D deficiency, unspecified Vitamin B12 and Folate 3 Months E53.8 - Deficiency of other specified B group vitamins Medications: New [WALKER] As directed 1 ea 0RF E11.42 - Type 2 diabetes mellitus with diabetic polyneuropathy, I89.0 - Lymphedema, not elsewhere classified, R29.6 - Repeated falls Discontinued polyethylene glycol 3350 17 grams PO DAILY 30 days 510 grams 3RF insulin lispro 35 units (0.35 mL) subcut BID 15 mL 3RF E11.42 - Type 2 diabetes mellitus with diabetic polyneuropathy, Z79.4 - termite treater helper (current) use of insulin Coding Level of Care Code Est Pt Level 4 (21878) Diagnoses COVID-19 U07.1 Frequent falls R29.6 Diabetes mellitus E11.42; Z79.4 Diabetes mellitus type: type 2 Diabetes mellitus extermination supervisor insulin use: with extermination supervisor use Diabetes mellitus complication status: with neurologic complications Diabetes mellitus complication detail: with polyneuropathy Diabetic polyneuropathy E11.42 Diabetes mellitus type: type 2 Coronary artery disease I25.10 Coronary Disease-Associated Artery/Lesion type: [place] artery [place] vs. transplanted heart: [place] heart Associated angina: without angina Pure hypercholesterolemia E78.00 Benign essential hypertension I10 Gastritis and duodenitis K29.90 Obstructive sleep apnea G47.33 Obesity (BMI 30-39.9) E66.9
[2022-10-14 12:53] VITALS: BP 120/72; PULSE 70; O2SAT 98
== END 2022-10-14 13:26 | disposition home or self-care (01) ==
PROVIDERS: PCP Internal Medicine; Visit Provider Internal Medicine
DX: U07.1 COVID-19 (principal); R29.6 Repeated falls; E11.42 Type 2 diabetes mellitus with diabetic polyneuropathy; Z79.4 Long term (current) use of insulin; I10 Essential (primary) hypertension; I25.10 Atherosclerotic heart disease of native coronary artery without angina pectoris; E78.00 Pure hypercholesterolemia, unspecified; K29.90 Gastroduodenitis, unspecified, without bleeding; G47.33 Obstructive sleep apnea (adult) (pediatric); E66.9 Obesity, unspecified
CPT/HCPCS: 99214

== ENCOUNTER 2022-10-21 14:33 | Emergency (ER) | payer OTHER, SELFPAY ==
--- NOTE | ~2022-10-21 | XR_ITS ---
EXAMINATION: XR CHEST CLINICAL INFORMATION: Intermittent chest pain. COMPARISON: 10/09/2022 chest radiograph. TECHNIQUE: 2 views of the chest were obtained. FINDINGS: No significant abnormality is noted involving the heart, lungs, mediastinum, bony thorax or soft tissues. Multilevel sternotomy wires are intact. XR/XR chest 2V IMPRESSION: No acute cardiopulmonary process.
[2022-10-21 15:08] VITALS: BP 154/64; PULSE 78
[2022-10-21 15:12] VITALS: BP 113/55; PULSE 74; RESP 13; TEMP 36.8; O2SAT 96; BMI 39.7
--- NOTE | 2022-10-21 15:16 | ECG_ITS ---
Test Reason : CHEST PAIN Blood Pressure : / mmHG Vent. Rate : 067 BPM Atrial Rate : 067 BPM P-R Int : 260 ms QRS Dur : 090 ms QT Int : 420 ms P-R-T Axes : 056 -32 -06 degrees QTc Int : 443 ms Sinus rhythm with 1st degree A-V block Left axis deviation Septal infarct (cited on or before 06-JUL-2022) Abnormal ECG When compared with ECG of 09-OCT-2022 12:14, Premature atrial complexes are no longer Present VT interval has increased T wave amplitude has decreased in Lateral leads Referred By: Zander Lay Electronically Signed By:MARIA TERESA TORRES
[2022-10-21 15:42] LABS: MANUAL DIFF FLAG NO
[2022-10-21 15:44] LABS: Basophils Percent Auto 0.2 % (0-2); Eosinophils Percent Auto 0.4 % (0-4); Hematocrit 34.2 % (42.0-52.0); Hemoglobin 11.4 g/dl (14.0-18.0); Imm Gran Abs Auto 0.04 X10*3/uL (0.00-0.03); Imm Gran Pct Auto 0.4 % (0.0-0.4); Lymphocytes Absolute Auto 1.7 X10*3/uL (1.2-4.9); Lymphocytes Percent Auto 17.2 % (20-40); Mean Corpuscular HGB Conc 33.3 g/dl (31.0-36.0); Mean Corpuscular Hemoglobin 30.2 pg (27.0-33.0); Mean Corpuscular Volume 90.5 fL (80.0-98.0); Mean Platelet Volume 12.2 fL (9.4-12.4); Monocytes Absolute Auto 0.8 X10*3/uL (0.1-1.2); Monocytes Percent Auto 7.8 % (2-11); Neutrophils Absolute Auto 7.4 x10*3/uL (2.0-8.3); Platelet Count 176 X10*3/uL (160-400); Red Blood Count 3.78 X10*6/uL (4.60-5.80); Red Cell Distribution Width 12.2 % (11.0-16.0)
[2022-10-21] MEDS: 0.9 % Sodium Chloride 1,000 ML 999 ML IV (15:46)
[2022-10-21 15:53] LABS: Prothrombin Time 11.8 SEC (11.1-13.3)
--- NOTE | 2022-10-21 15:57 | ED_ITS ---
HPI - Chest Pain General Chief Complaint: Chest Pain Stated Complaint: CP,WEAKNESS,-COVID Time Seen by Provider: 10/21/22 15:15 Source: patient and EMS Mode of arrival: EMS Limitations: no limitations History of Present Illness HPI narrative: 67-year-old male with a history diabetes, electrolyte abnormality, depression, BPH, sleep apnea, hypertension, hypercholesterolemia coronary artery disease presents with chest pain. Chest pain started at approximately 7:00 a.m. this morning. Pain is been intermittent. He rates it as a 5/10. It is substernal. It is sharp and stabbing. The pain does not radiate. The pain is not associated with exertion. The pain typically lasts anywhere from 3-10 minutes at a time. It is not associated with any nausea, vomiting, shortness of breath. Patient recently got over COVID-19 infection. He denies any recent fevers, chills, cough, mucus production. Patient was brought in by EMS. Found to be hemodynamically stable blood sugar in the 300 range. Patient reports that his blood sugars have been running high despite not eating much. His oxygen saturation was 98% on room air. Related Data Home Medications Medication Instructions Recorded Confirmed blood-glucose meter (OneTouch #1 ea 06/12/22 10/14/22 Ultra2 Meter) insulin lispro 100 unit/mL 15 - 20 unit subcut BID 10/09/22 10/21/22 subcutaneous pen (Humalog KwikPen (U-100) Insulin) polyethylene glycol 3350 17 17 g PO DAILY PRN Constipation 10/09/22 10/21/22 gram/dose oral powder (Miralax) Previous Rx's Medication Instructions Recorded SHOWER CHAIR #1 ea 10/05/20 SHOWER CHAIR #1 ea 01/10/21 fluticasone propionate 50 1 spray intranasal DAILY #16 grams 03/16/21 mcg/actuation nasal spray,suspension insulin syr/ndl U100 half gareth 0.5 #100 ea 05/14/21 mL 30 gauge x 07/23 cholecalciferol (vitamin D3) 50 50 mcg PO DAILY 90 days #90 caps 09/07/21 mcg (2,000 unit) capsule aspirin 81 mg tablet,delayed 81 mg PO DAILY #90 tabs 01/14/22 release insulin glargine 100 unit/mL (3 80 unit (0.8 mL) subcut BID 30 01/14/22 mL) subcutaneous pen (Lantus days #48 mL Solostar U-100 Insulin) blood-glucose meter (Freeman MotorbikesTouch #1 ea 03/12/22 Ultra2 Meter kit) pen needle, diabetic 31 gauge x #100 ea 03/12/2207/23 (Lite Touch Insulin Pen [place]) lancets 33 gauge (Freeman MotorbikesTouch Delica #100 ea 03/13/22 Lancets) cyanocobalamin (vitamin B-12) 1,000 mcg PO DAILY 90 days #90 tabs 04/25/22 1,000 mcg tablet metoprolol tartrate 50 mg tablet 50 mg PO BID #180 tabs 04/25/22 flash glucose scanning reader #1 ea 06/12/22 (FreeStyle [place] 2 [place]) flash glucose sensor (Uprizer LabsStyle #2 ea 06/12/22 Iwona 2 Sensor kit) albuterol sulfate 90 mcg/actuation 2 puff PO Q4-6H PRN for wheezing 07/02/22 aerosol inhaler #8.5 grams dicyclomine 20 mg tablet 20 mg PO QID PRN abdominal pain 07/05/22 #20 tabs ondansetron HCl 4 mg tablet 4 mg PO Q6H PRN nausea and 07/06/22 vomiting #14 tabs paroxetine HCl 40 mg tablet 40 mg PO DAILY #90 tabs 07/12/22 oxybutynin chloride 10 mg 10 mg PO DAILY #90 tabs 08/20/22 tablet,extended release 24 hr atorvastatin 80 mg tablet 80 mg PO DAILY #90 tabs 08/23/22 gabapentin 400 mg capsule 800 mg PO BID #120 caps 08/29/22 lisinopril 10 mg tablet 10 mg PO DAILY #90 tabs 09/05/22 WALKER #1 ea 10/14/22 metoclopramide HCl 10 mg tablet 10 mg PO AC PRN nausea and 10/14/22 (Reglan) vomiting #20 tabs omeprazole 40 mg capsule,delayed 40 mg PO DAILY 30 days #30 caps 10/14/22 release Allergies Allergy/AdvReac Type Severity Reaction Status Date / Time hydromorphone [Dilaudid] AdvReac Unknown confusion Verified 10/14/22 13:11 From DILAUDID AdvReac Severe CONFUSION/H Uncoded 10/14/22 13:11 ALLUCIATION S From PERCOCET AdvReac Intermediate AGITATION Uncoded 10/14/22 13:11 Review of Systems Review of Systems: CONSTITUTIONAL: Denies weight loss, fever and chills. HEENT: Denies changes in vision and hearing. RESPIRATORY: Denies SOB and cough. CV: Denies palpitations + CP. GI: Denies abdominal pain, nausea, vomiting and diarrhea. : Denies dysuria and urinary frequency. MSK: Denies myalgia and joint pain. SKIN: Denies rash and pruritus. NEUROLOGICAL: Denies headache and syncope. PSYCHIATRIC: Denies recent changes in mood. Denies anxiety and depression. All other ROS are negative unless in HPI PMFSH Past Medical History Medical History Benign essential hypertension Benign prostatic hyperplasia with urinary frequency Constipation Coronary artery disease Diabetes mellitus Diabetic polyneuropathy Gastritis and duodenitis Hyperkalemia Intertrigo Major depressive disorder, recurrent Obesity (BMI 30-39.9) Obstructive sleep apnea Pure hypercholesterolemia Vitamin B12 deficiency Vitamin D deficiency Surgical History History of prostate surgery (~12/04/10) History of quadruple bypass (~2005) Hx of cataract extraction (~2011) Hx of cholecystectomy (~2007) Hx of cystoscopy Family History Family History Father Lung cancer Mother Diabetes Hypertension Stomach cancer Social History Social History Household Members: None Housing: Apartment Do you presently have visiting nurse or other home services: No Alcohol intake: never Patient Tobacco Use Status: Former Tobacco user Quit Date: 17 years ago e-Cigarette/Vaping Use: Never Used Second Hand Smoke Exposure: No Advance Directives: Yes Advance Directives on File: Yes Advance Directives Date on File: 05/09/20 service: No Current occupational status: disabled Cognitive needs: Yes (cane) Hearing needs: No Vision needs: Yes Physical Exam Vital Signs: Vital Signs: Last Vital Signs Temp 98.0 F 10/21/22 22:45 Pulse 66 10/21/22 22:45 Resp 14 10/21/22 22:45 BP 143/67 H 10/21/22 22:45 Pulse Ox 95 10/21/22 22:45 O2 Del Method Room Air 10/21/22 22:45 BMI result Body Mass Index 39.7 GEN: Well developed, no acute distress, alert, oriented HEENT: Normocephalic, atraumatic, normal external ears, nose appears normal, no oropharyngeal edema or exudates Eyes: Normal to appearance Neck: Supple, no lymphadenopathy Respiratory: Talks in complete sentences, no respiratory distress, clear to auscultation bilaterally Cardiovascular: Regular rate and rhythm, no murmurs rubs or gallops Abdomen: Soft, nontender, nondistended, no guarding, no rebound Back: No CVA tenderness Extremities: No clubbing cyanosis or edema Neurologic: No focal neurologic deficits, cranial nerves 2-12 intact, strength is 5/5 bilaterally Skin: No rash Course Reevaluation(s) Reevaluation #1: The workup is complete at this time. Two sets of cardiac enzymes are negative that with a nonischemic EKG, nontypical chest pain, doubt this is acute coronary syndrome. Patient describes that he is having some generalized weakness which is concerning for him. He is able to somewhat take care of himself. We discussed the possibility of short-term rehabilitation. He is does not appear to be interested but will rediscuss this shortly. Will touch base with our case management assistant to see if we could arrange for some home health assistance. Time: 19:13 Reevaluation #2: Patient has significant lower extremity weakness. We discussed the possibilities again of some form of physical therapy and home health aide versus short-term rehabilitation. He had seems to be at high risk for falls. Patient has agreed to stay overnight pending physical therapy and case management evaluation. I will place the patient in physician observation at this time. Time: 19:32 Reevaluation #3: Transition of care to Dr. Styles pending CM/PT Time: 02:00 Medications Administered Discontinued Medications Generic Name Dose Route Start Last Admin Trade Name Freq PRN Reason Stop Dose Admin Sodium Chloride 1,000 mls @ 999 mls/hr 10/21/22 15:15 10/21/22 17:01 Ns IV 10/21/22 16:15 Infused .Q1H1M ABELARDO Infusion Medical Decision Making Medical Decision Making MDM Narrative: 67-year-old male with multiple medical problems presents with sharp stabbing intermittent chest pain not associated with exertion. Examination was benign. He is hemodynamically stable, no acute distress with no active pain. Differential diagnosis includes: Atypical chest pain, musculoskeletal chest pain, chest wall pain, myocardial infarction, pericarditis, myocarditis, anxiety, stress, reflux, pneumonia, pulmonary embolus, dissection My plan to rule out the differential of above but did obtain an EKG, chest x-ray, laboratory analysis. Will obtain 2 sets of troponins. His pain is atypical although he is diabetic. Assuming his cardiac enzymes are normal, nonischemic EKG, there is a possibly patient may be discharged home with reassurance. However, should his troponin or EKG show any significant abnormalities, patient will certainly warrant hospitalization and further evaluation. Differential Diagnosis Differential Diagnoses: The differential diagnosis associated with the presentation includes (See above) Chest pain Admission/Observation Consideration of admission/observation: Escalation of care including admission/observation considered Lab Data MDM Lab Attestation statement: I reviewed the patient's lab results. 10/21/22 15:37 10/21/22 15:37 Labs: Lab Results 10/21/22 10/21/22 10/21/22 Range/Units 15:37 15:37 15:37 WBC 10.0 (4.8-10.8) X10*3/uL RBC 3.78 L (4.60-5.80) X10*6/uL Hgb 11.4 L (14.0-18.0) g/dl Hct 34.2 L (42.0-52.0) % MCV 90.5 (80.0-98.0) fL MCH 30.2 (27.0-33.0) pg MCHC 33.3 (31.0-36.0) g/dl RDW 12.2 (11.0-16.0) % Plt Count 176 D (160-400) X10*3/uL MPV 12.2 (9.4-12.4) fL Immature Gran % (Auto) 0.4 (0.0-0.4) % Neut % (Auto) 74.0 H (45-73) % Lymph % (Auto) 17.2 L (20-40) % [place] % (Auto) 7.8 (2-11) % Eos % (Auto) 0.4 (0-4) % Baso % (Auto) 0.2 (0-2) % Lymph # (Auto) 1.7 (1.2-4.9) X10*3/uL [place] # (Auto) 0.8 (0.1-1.2) X10*3/uL Eos # (Auto) 0.0 (0.0-0.4) X10*3/uL Baso # (Auto) 0.0 (0.0-0.2) X10*3/uL Abs Immat Gran (auto) 0.04 H (0.00-0.03) X10*3/uL Absolute Neuts (auto) 7.4 (2.0-8.3) x10*3/uL Absolute Nucleated RBC 0.000 (0.0-0.012) X10*3/uL Nucleated RBC % (auto) 0.0 (0.0-0.2) /100WBC PT (11.1-13.3) SEC INR (0.9-1.1) APTT 33.0 (26.0-36.4) SEC Sodium 138 (135-145) mmol/L Potassium 5.0 (3.3-5.1) mmol/L Chloride 104 (96-108) mmol/L Carbon Dioxide 28 (22-29) mmol/L Anion Gap 11 L (12-20) BUN 17 H (9-16) mg/dL Creatinine 1.17 (0.5-1.4) mg/dL Estim Creat Clear Calc 65.2 Estimated GFR > 60 Random Glucose 314 H (60-115) mg/dL Calcium 9.3 (8.4-10.2) mg/dL Total Bilirubin 0.6 (0.0-1.0) mg/dL AST 21 (5-37) U/L ALT 22 (0-40) U/L Alkaline Phosphatase 111 (39-117) U/L Troponin I High Sens (<3.5-35.0) ng/L Total Protein 7.3 (6.5-8.0) g/dL Albumin 3.4 L (3.5-5.0) g/dL TSH 0.73 (0.32-4.0) uIU/mL Urine Color Urine Appearance Urine pH (5.0-9.0) Ur Specific [place] (1.005-1.025) Urine Protein (Neg-Trace) mg/dL Urine Glucose (UA) (Negative) mg/dL Urine Ketones (Negative) mg/dL Urine Blood (Negative) Urine Nitrite (Negative) Ur Leukocyte Esterase (Negative) Urine RBC (0-2) /HPF Urine WBC (0-5) /HPF Ur Squamous Epith Cells (0-2) /HPF Urine Bacteria (None Seen) Hyaline Casts (0-2) /LPF 10/21/22 10/21/22 10/21/22 Range/Units 15:37 15:37 17:36 WBC (4.8-10.8) X10*3/uL RBC (4.60-5.80) X10*6/uL Hgb (14.0-18.0) g/dl Hct (42.0-52.0) % MCV (80.0-98.0) fL MCH (27.0-33.0) pg MCHC (31.0-36.0) g/dl RDW (11.0-16.0) % Plt Count (160-400) X10*3/uL MPV (9.4-12.4) fL Immature Gran % (Auto) (0.0-0.4) % Neut % (Auto) (45-73) % Lymph % (Auto) (20-40) % [place] % (Auto) (2-11) % Eos % (Auto) (0-4) % Baso % (Auto) (0-2) % Lymph # (Auto) (1.2-4.9) X10*3/uL [place] # (Auto) (0.1-1.2) X10*3/uL Eos # (Auto) (0.0-0.4) X10*3/uL Baso # (Auto) (0.0-0.2) X10*3/uL Abs Immat Gran (auto) (0.00-0.03) X10*3/uL Absolute Neuts (auto) (2.0-8.3) x10*3/uL Absolute Nucleated RBC (0.0-0.012) X10*3/uL Nucleated RBC % (auto) (0.0-0.2) /100WBC PT 11.8 (11.1-13.3) SEC INR 1.0 (0.9-1.1) APTT (26.0-36.4) SEC Sodium (135-145) mmol/L Potassium (3.3-5.1) mmol/L Chloride (96-108) mmol/L Carbon Dioxide (22-29) mmol/L Anion Gap (12-20) BUN (9-16) mg/dL Creatinine (0.5-1.4) mg/dL Estim Creat Clear Calc Estimated GFR Random Glucose (60-115) mg/dL Calcium (8.4-10.2) mg/dL Total Bilirubin (0.0-1.0) mg/dL AST (5-37) U/L ALT (0-40) U/L Alkaline Phosphatase (39-117) U/L Troponin I High Sens 23.6 D 22.4 (<3.5-35.0) ng/L Total Protein (6.5-8.0) g/dL Albumin (3.5-5.0) g/dL TSH (0.32-4.0) uIU/mL Urine Color Urine Appearance Urine pH (5.0-9.0) Ur Specific [place] (1.005-1.025) Urine Protein (Neg-Trace) mg/dL Urine Glucose (UA) (Negative) mg/dL Urine Ketones (Negative) mg/dL Urine Blood (Negative) Urine Nitrite (Negative) Ur Leukocyte Esterase (Negative) Urine RBC (0-2) /HPF Urine WBC (0-5) /HPF Ur Squamous Epith Cells (0-2) /HPF Urine Bacteria (None Seen) Hyaline Casts (0-2) /LPF 10/21/22 Range/Units 21:07 WBC (4.8-10.8) X10*3/uL RBC (4.60-5.80) X10*6/uL Hgb (14.0-18.0) g/dl Hct (42.0-52.0) % MCV (80.0-98.0) fL MCH (27.0-33.0) pg MCHC (31.0-36.0) g/dl RDW (11.0-16.0) % Plt Count (160-400) X10*3/uL MPV (9.4-12.4) fL Immature Gran % (Auto) (0.0-0.4) % Neut % (Auto) (45-73) % Lymph % (Auto) (20-40) % [place] % (Auto) (2-11) % Eos % (Auto) (0-4) % Baso % (Auto) (0-2) % Lymph # (Auto) (1.2-4.9) X10*3/uL [place] # (Auto) (0.1-1.2) X10*3/uL Eos # (Auto) (0.0-0.4) X10*3/uL Baso # (Auto) (0.0-0.2) X10*3/uL Abs Immat Gran (auto) (0.00-0.03) X10*3/uL Absolute Neuts (auto) (2.0-8.3) x10*3/uL Absolute Nucleated RBC (0.0-0.012) X10*3/uL Nucleated RBC % (auto) (0.0-0.2) /100WBC PT (11.1-13.3) SEC INR (0.9-1.1) APTT (26.0-36.4) SEC Sodium (135-145) mmol/L Potassium (3.3-5.1) mmol/L Chloride (96-108) mmol/L Carbon Dioxide (22-29) mmol/L Anion Gap (12-20) BUN (9-16) mg/dL Creatinine (0.5-1.4) mg/dL Estim Creat Clear Calc Estimated GFR Random Glucose (60-115) mg/dL Calcium (8.4-10.2) mg/dL Total Bilirubin (0.0-1.0) mg/dL AST (5-37) U/L ALT (0-40) U/L Alkaline Phosphatase (39-117) U/L Troponin I High Sens (<3.5-35.0) ng/L Total Protein (6.5-8.0) g/dL Albumin (3.5-5.0) g/dL TSH (0.32-4.0) uIU/mL Urine Color Yellow Urine Appearance Clear Urine pH 5.5 (5.0-9.0) Ur Specific [place] 1.025 (1.005-1.025) Urine Protein 30 (1+) H (Neg-Trace) mg/dL Urine Glucose (UA) 500 H (Negative) mg/dL Urine Ketones Negative (Negative) mg/dL Urine Blood Negative (Negative) Urine Nitrite Negative (Negative) Ur Leukocyte Esterase Negative (Negative) Urine RBC 0-2 (0-2) /HPF Urine WBC 0-5 (0-5) /HPF Ur Squamous Epith Cells 0-2 (0-2) /HPF Urine Bacteria None Seen (None Seen) Hyaline Casts 0-2 (0-2) /LPF Independent Interpretation I performed an independent interpretation of an: EKG (Normal sinus rhythm heart rate 67, first-degree AV block, nonspecific T-wave changes, poor precordial progression suggestive of an old septal wall NM) and Plain X-Ray (Chest: No acute cardiopulmonary disease) Independent Historian Clinical information obtained from an independent historian. History obtained from or confirmed by: EMS Prescription Management I considered prescription management with: Pain Medication Chronic Conditions Patient?s care impacted by: Diabetes and Hypertension Critical Care Time Critical Care Time Critical Care Time: Yes Total Critical Care Time: 35 Attestation: Approximately 35+ minutes of critical care time was spent on the patient given his significant comorbidities including diabetes, hypertension, coronary artery disease presenting with intermittent sharp chest pain. Patient is at risk for significant morbidity and mortality. Critical care time in the form of initial assessment, reassessment, consultation with patient and family, review of medical data, interpretation medical data, medical management all outside of any procedures was performed. Discharge Plan Discharge Clinical Impression: Chest pain, Generalized weakness Patient Disposition: Still a Patient Instructions: Chest Pain (DC), Weakness (ED) Prescriptions: No Action fluticasone propionate 50 mcg/actuation spray,suspension 1 spray intranasal DAILY Qty: 16 2RF aspirin 81 mg tablet,delayed release (DR/EC) 81 mg PO DAILY Qty: 90 3RF insulin glargine [Lantus Solostar U-100 Insulin] 100 unit/mL (3 mL) insulin pen 80 unit subcut BID 30 Days Qty: 48 3RF (DME) blood-glucose meter [Antix Labsuch Ultra2 Meter] Kit See Rx Instructions .Route Qty: 1 0RF Rx Instructions: As directed- To test blood sugar three times daily (DME) pen needle, diabetic [Lite Touch Insulin Pen [place]] 31 gauge x 5/16 needle See Rx Instructions .Route Qty: 100 12RF Rx Instructions: Use 3 times daily (DME) lancets [OneTouch Delica Lancets] 33 gauge misc See Rx Instructions .Route Qty: 100 12RF Rx Instructions: As directed 3 times a day cyanocobalamin (vitamin B-12) 1,000 mcg tablet 1,000 mcg PO DAILY 90 Days Qty: 90 3RF metoprolol tartrate 50 mg tablet 50 mg PO BID Qty: 180 1RF albuterol sulfate 90 mcg/actuation HFA aerosol inhaler 2 puff PO Q4-6H PRN (Reason: for wheezing) Qty: 8.5 2RF paroxetine HCl 40 mg tablet 40 mg PO DAILY Qty: 90 0RF oxybutynin chloride 10 mg tablet extended release 24hr 10 mg PO DAILY Qty: 90 0RF atorvastatin 80 mg tablet 80 mg PO DAILY Qty: 90 1RF gabapentin 400 mg capsule 800 mg PO BID Qty: 120 3RF Rx Instructions: take 2 capsules orally twice a day lisinopril 10 mg tablet 10 mg PO DAILY Qty: 90 0RF omeprazole 40 mg capsule,delayed release(DR/EC) 40 mg PO DAILY 30 Days Qty: 30 3RF metoclopramide HCl [Reglan] 10 mg tablet 10 mg PO AC PRN (Reason: nausea and vomiting) Qty: 20 0RF dicyclomine 20 mg tablet 20 mg PO QID PRN (Reason: abdominal pain) Qty: 20 0RF ondansetron HCl 4 mg tablet 4 mg PO Q6H PRN (Reason: nausea and vomiting) Qty: 14 0RF polyethylene glycol 3350 [Miralax] 17 gram/dose powder 17 g PO DAILY PRN (Reason: Constipation) insulin lispro [Humalog KwikPen Insulin] 100 unit/mL insulin pen 15 - 20 unit subcut BID (DME) SHOWER CHAIR See Rx Instructions .Route .MEDSUPPLY Qty: 1 0RF Rx Instructions: As directed (DME) SHOWER CHAIR See Rx Instructions .Route .MEDSUPPLY Qty: 1 0RF Rx Instructions: As directed (DME) insulin syr/ndl U100 half gareth 0.5 mL 30 gauge x 5/16 syringe See Rx Instructions .Route Qty: 100 12RF Rx Instructions: Use 4 times daily cholecalciferol (vitamin D3) 50 mcg (2,000 unit) capsule 50 mcg PO DAILY 90 Days Qty: 90 3RF (DME) SHAHLA See Rx Instructions .Route .[facility] Qty: 1 0RF Rx Instructions: As directed (DME) blood-glucose meter [OneTouch Ultra2 Meter] Misc See Rx Instructions .ROUTE TID Qty: 1 Rx Instructions: As directed (DME) FreeStyle [place] 2 Sensor Kit See Rx Instructions .Route Qty: 2 5RF Rx Instructions: As directed change every 14 days (DME) FreeStyle [place] 2 [place] Misc See Rx Instructions .Route Qty: 1 0RF Rx Instructions: As directed Referrals: Robinson Zhou MD [Physician] - 3 days
[2022-10-21 16:53] LABS: Alanine Aminotransferase 22 U/L (0-40); Albumin Level 3.4 g/dL (3.5-5.0); Alkaline Phosphatase 111 U/L (39-117); Anion Gap 11 (12-20); Aspartate Amino Transferase 21 U/L (5-37); Bilirubin Total 0.6 mg/dL (0.0-1.0); Blood Urea Nitrogen 17 mg/dL (9-16); Calcium 9.3 mg/dL (8.4-10.2); Carbon Dioxide 28 mmol/L (22-29); Chloride 104 mmol/L (96-108); Creatinine Clr Calc Pharmacy 65.2; Estimated Glomerular Filt Rate > 60; Glucose Random 314 mg/dL (60-115); Sodium 138 mmol/L (135-145); Total Protein 7.3 g/dL (6.5-8.0)
[2022-10-21 16:55] LABS: Troponin-I High Sensitivity 23.6 ng/L (<3.5-35.0)
[2022-10-21 17:03] VITALS: BP 129/54; PULSE 68; RESP 18; TEMP 36.9; O2SAT 96
[2022-10-21 17:09] LABS: TSH reflex Free T4 0.73 uIU/mL (0.32-4.0)
[2022-10-21 18:13] LABS: Troponin-I High Sensitivity 22.4 ng/L (<3.5-35.0)
[2022-10-21 19:04] VITALS: BP 137/65; PULSE 69; RESP 15; TEMP 36.5; O2SAT 97
--- NOTE | 2022-10-21 21:00 | PHA.MEDREC ---
Pharmacy Consult ? Medication Reconciliation Pharmacy has completed the medication reconciliation. Patient just discharged 10/11/22. Utilized discharge summary and claim history. Iris England, JosieD
[2022-10-21 21:03] VITALS: BP 139/67; PULSE 70; RESP 15; TEMP 36.7; O2SAT 95
[2022-10-21 21:14] LABS: Appearance Urine Clear; Color Urine Yellow; Glucose Urine UA 500 mg/dL (Negative); Leukocyte Esterase Urine Negative (Negative); Nitrite Urine Negative (Negative); PH 5.5 (5.0-9.0); Specific Gravity - Urine 1.025 (1.005-1.025); UMIC TRIGGER UACC YES; Urine Blood Negative (Negative); Urine Ketones Negative (Negative); Urine Protein 30 (1+) mg/dL (Neg-Trace)
[2022-10-21 21:16] LABS: Bacteria Urine None Seen (None Seen); Hyaline Casts Urine 0-2 /LPF (0-2); RBC Urine 0-2 /HPF (0-2); Squamous Epithelial Cell Urine 0-2 /HPF (0-2); WBC Urine 0-5 /HPF (0-5)
--- NOTE | 2022-10-21 22:42 | PC.NURSE ---
This RN assumed care at 1900. Patient is calm and cooperative, son was present at bedside, VSS, will continue to monitor.
[2022-10-21 22:45] VITALS: BP 143/67; PULSE 66; RESP 14; TEMP 36.7; O2SAT 95
[2022-10-22 03:20] VITALS: BP 154/69; PULSE 67; RESP 18; TEMP 36.4; O2SAT 98
[2022-10-22 05:24] LABS: Estimated Average Glucose 192 mg/dL; Hemoglobin A1c % 8.3 %
[2022-10-22 07:58] LABS: Glucose, Whole Blood 258 mg/dL (60-115)
[2022-10-22 08:43] VITALS: BP 162/64; PULSE 75; RESP 18; TEMP 36.6; O2SAT 98
[2022-10-22] MEDS: PARoxetine HCL 40 MG TABLET PO (10:29)
[2022-10-22] MEDS: Cyanocobalamin (Vitamin B-12) 1,000 MCG TABLET 1000 MCG PO (10:29)
[2022-10-22] MEDS: oxyBUTYnin chloride ER 5 MG TAB.ER.24 10 MG PO (10:29)
[2022-10-22] MEDS: Omeprazole 40 MG CAPSULE.DR PO (10:29)
[2022-10-22] MEDS: Aspirin Enteric Coated 81 MG TABLET.DR PO (10:29)
[2022-10-22] MEDS: Metoprolol Tartrate 50 MG TABLET PO ×2 (10:29→21:03)
[2022-10-22] MEDS: Metoclopramide HCl 10 MG TABLET PO ×2 (10:29→18:10)
[2022-10-22] MEDS: Gabapentin 400 MG CAPSULE 800 MG PO ×2 (10:29→21:03)
[2022-10-22] MEDS: Atorvastatin Calcium 80 MG TABLET PO (10:29)
[2022-10-22] MEDS: Cholecalciferol (Vitamin D3) 25 MCG TABLET 50 MCG PO (10:29)
[2022-10-22] MEDS: Insulin Glargine,Hum.rec.anlog 100 UNIT/ML 10 ML VIAL 80 UNIT SUBCUT ×2 (10:30→21:02)
[2022-10-22] MEDS: lisinopriL 10 MG TABLET PO (10:30)
[2022-10-22] MEDS: Fluticasone Propionate Nasal 16 GM SPRAY 1 SPRAY NOSTRIL-B (10:32)
--- NOTE | 2022-10-22 10:40 | PC.NURSE ---
alert and oriented, reports some abdominal pain that has improved. Po meds as ordered, good po intake and appetite for breakfast.
[2022-10-22 11:56] LABS: Glucose, Whole Blood 331 mg/dL (60-115)
--- NOTE | 2022-10-22 13:10 | PC.NURSE ---
Pa notified of bs and patient request to be discharged home and not go to [facility].
--- NOTE | 2022-10-22 16:28 | PC.NURSE ---
Pawel notified of BS of [id number]
[2022-10-22 16:29] VITALS: BP 140/64; PULSE 67; RESP 16; TEMP 36.4; O2SAT 98
[2022-10-22 16:31] LABS: Glucose, Whole Blood 368 mg/dL (60-115)
--- NOTE | 2022-10-22 16:59 | MHC.EDTECH ---
Emptied patients urinal 400mL.
[2022-10-22] MEDS: Insulin Lispro 100 UNIT/ML 3 ML VIAL SUBCUT ×2 (17:21→21:02)
--- NOTE | 2022-10-22 19:06 | PC.NURSE ---
Alert and oriented, denies pain or discomfort, good po intake and appetite for dinner. Aware that he will be seen by therapy in [place]
[2022-10-22 19:18] LABS: Glucose, Whole Blood 223 mg/dL (60-115)
--- NOTE | 2022-10-22 19:18 | PC.NURSE ---
Addendum entered by Raul Carrion RN 10/22/22 19:20: IV R forearm patent, no IFV running currently. Original Note: Assumed care of pt. Pt lying on stretcher, rousable to voice, no complaints at this time. POC glucose checked for current levels, plan to medicate per orders at 2100. Continuing plan of care.
--- NOTE | 2022-10-22 19:24 | PC.NURSE ---
Moved pt to Over 9 for functional telvision.
[2022-10-22 20:54] LABS: Glucose, Whole Blood 186 mg/dL (60-115)
[2022-10-22 21:44] VITALS: BP 138/68; PULSE 66; RESP 16; TEMP 36.6; O2SAT 97
--- NOTE | 2022-10-22 22:17 | MHC.EDTECH ---
Emptied patients urinal 300mL. Assist patient to change soiled juan c and put a clean juan c on. Gave patient two warm blankets.
--- NOTE | 2022-10-23 04:31 | PC.NURSE ---
Assumed care of patient. Resting comfortably. No complaints at this time.
[2022-10-23 06:34] VITALS: BP 145/70; PULSE 66; RESP 15; TEMP 37.1; O2SAT 97
[2022-10-23 07:24] LABS: Glucose, Whole Blood 58 mg/dL (60-115)
--- NOTE | 2022-10-23 07:26 | PC.NURSE ---
PT at bedside to evaluate patient
--- NOTE | 2022-10-23 07:40 | PC.NURSE ---
pt POC low at 58. provided with juice and sandwich - awaiting arrival of breakfast
[2022-10-23 07:53] VITALS: BP 145/70; PULSE 66; O2SAT 97
[2022-10-23 08:27] LABS: Glucose, Whole Blood 105 mg/dL (60-115)
--- NOTE | 2022-10-23 09:21 | MHC.CM.PN ---
Addendum entered by Laine Pena 10/23/22 10:04: [facility] HAS ACCEPTED REFERRAL PENDING PCP VERIFICATION THEY WILL SEE PT WITHIN 48 HOURS Original Note: CM MET WITH PT TO DISCUSS DC PLAN PT IS ARE STR HAS BEEN RECOMMENDED HE REPORTS HE IS NOT INTERESTED IN [facility] PT STATES HE WILL GO HOME WITH [facility] FOR HOME PT HE STATES HE HAS A [employer] DAILY M-F. HE IS AGREEABLE TO A MESSAGE BEING SENT TO [facility] TO EVAL FOR INCREASED HOME SERVICES PT DECLINES CM OFFER TO CALL FAMILY AND STATES HE WILL CALL HIS BROTHER FOR TRANSPORT WHEN READY
[2022-10-23] MEDS: PARoxetine HCL 40 MG TABLET PO (11:01)
[2022-10-23] MEDS: Aspirin Enteric Coated 81 MG TABLET.DR PO (11:01)
[2022-10-23] MEDS: Gabapentin 400 MG CAPSULE 800 MG PO (11:01)
[2022-10-23] MEDS: Cholecalciferol (Vitamin D3) 25 MCG TABLET 50 MCG PO (11:01)
[2022-10-23] MEDS: Fluticasone Propionate Nasal 16 GM SPRAY 1 SPRAY NOSTRIL-B (11:01)
[2022-10-23] MEDS: Metoclopramide HCl 10 MG TABLET PO (11:02)
[2022-10-23] MEDS: Omeprazole 40 MG CAPSULE.DR PO (11:02)
[2022-10-23] MEDS: Cyanocobalamin (Vitamin B-12) 1,000 MCG TABLET 1000 MCG PO (11:02)
[2022-10-23] MEDS: Atorvastatin Calcium 80 MG TABLET PO (11:02)
[2022-10-23] MEDS: Metoprolol Tartrate 50 MG TABLET PO (11:02)
[2022-10-23 11:17] LABS: Glucose, Whole Blood 239 mg/dL (60-115)
[2022-10-23] MEDS: oxyBUTYnin chloride ER 5 MG TAB.ER.24 10 MG PO (11:57)
[2022-10-23] MEDS: lisinopriL 10 MG TABLET PO (11:58)
[2022-10-23] MEDS: Insulin Lispro 100 UNIT/ML 3 ML VIAL SUBCUT (11:58)
[2022-10-23 13:50] VITALS: BP 161/61; PULSE 66; RESP 16; TEMP 36.8; O2SAT 96
== END 2022-10-23 15:03 | disposition home or self-care (01) ==
PROVIDERS: Emergency Provider Emergency Medicine
DX: R07.9 Chest pain, unspecified (principal); R53.1 Weakness; E11.9 Type 2 diabetes mellitus without complications; I10 Essential (primary) hypertension; E78.00 Pure hypercholesterolemia, unspecified; E66.9 Obesity, unspecified; Z68.39 Body mass index [BMI] 39.0-39.9, adult; Z79.4 Long term (current) use of insulin; Z79.82 Long term (current) use of aspirin; Z79.899 Other long term (current) drug therapy; Z87.891 Personal history of nicotine dependence
CPT/HCPCS: 36415; 71046; 80053; 81001; 82947; 83036; 84443; 84484; 85025; 85610; 85730; 93005; 96361; 96374; 97161; 99285

== ENCOUNTER 2022-11-13 11:37 | Emergency (ER) | payer OTHER, SELFPAY ==
[2022-11-13 11:50] VITALS: BP 160/66; BP 182/78; PULSE 69; PULSE 70; RESP 16; O2SAT 95; BMI 38.3
--- NOTE | 2022-11-13 12:00 | PC.NURSE ---
ivorian speaking - medical staff assistant to bedside. pt arrived via ems; reporting lower abdominal pain however now stating pain resolved. home care nurse reported pt noncompliant with daily meds (bp & insulin meds). pt denies n/v/d/cp/sob/urinary sx. nsr on monitor 68 bpm. respirations even and unlabored. +bs x 4. no abd distention/tenderness noted. md to bedside for primary eval. awaiting orders; call aileen goodman.
[2022-11-13 12:01] VITALS: TEMP 36.6
--- NOTE | 2022-11-13 12:08 | ECG_ITS ---
Test Reason : DYSPNEA Blood Pressure : / mmHG Vent. Rate : 070 BPM Atrial Rate : 070 BPM P-R Int : 212 ms QRS Dur : 092 ms QT Int : 408 ms P-R-T Axes : 071 -22 049 degrees QTc Int : 440 ms Sinus rhythm with 1st degree A-V block Septal infarct (cited on or before 06-JUL-2022) Abnormal ECG When compared with ECG of 21-OCT-2022 17:47, Nonspecific T wave abnormality no longer evident in Inferior leads Referred By: Torrie Rick Electronically Signed By:MARIA TERESA TORRES
--- NOTE | 2022-11-13 12:10 | ED.ABDPAIN ---
HPI - Abdominal Pain General Chief Complaint: Abdominal Pain Stated Complaint: left lower abd pain, per ems Time Seen by Provider: 11/13/22 11:48 Source: patient, old records reviewed and vp digital marketing social media and crm Mode of arrival: EMS Limitations: no limitations History of Present Illness HPI narrative: 67 yo male with PMH of ETOH abuse, gastritis, COPD with asthma, pancreatitis, ED, BPH, DM, JAIME, CAD, HLD here with c/o resolved abdominal pain that started yesterday denies fevers, symptoms, nausea and vomiting did have mild diarrhea yesterday that resolved. He has none now and no pain. His GUEST EXPERIENCE MANAGER told EMS he is not longer compliant with medications - he states he doesn't feel like taking them anymore, no SI he just doesn't want to. MD elicited complaint: abdominal pain Pertinent past history: none Onset (ago): day(s) (1) Pain Consistency: now resolved Location: periumbilical Severity: mild Quality: aching Radiation: none Migration to: no migration Exacerbating factors: nothing Relieving factors: nothing Associated symptoms: diarrhea Related Data Home Medications Medication Instructions Recorded Confirmed blood-glucose meter (OneTouch #1 ea 06/12/22 10/14/22 Ultra2 Meter) insulin lispro 100 unit/mL 15 - 20 unit subcut BID 10/09/22 10/21/22 subcutaneous pen (Humalog KwikPen (U-100) Insulin) polyethylene glycol 3350 17 17 g PO DAILY PRN Constipation 10/09/22 10/21/22 gram/dose oral powder (Miralax) Previous Rx's Medication Instructions Recorded SHOWER CHAIR #1 ea 10/05/20 SHOWER CHAIR #1 ea 01/10/21 fluticasone propionate 50 1 spray intranasal DAILY #16 grams 03/16/21 mcg/actuation nasal spray,suspension insulin syr/ndl U100 half gareth 0.5 #100 ea 05/14/21 mL 30 gauge x 5/16 aspirin 81 mg tablet,delayed 81 mg PO DAILY #90 tabs 01/14/22 release insulin glargine 100 unit/mL (3 80 unit (0.8 mL) subcut BID 30 01/14/22 mL) subcutaneous pen (Lantus days #48 mL Solostar U-100 Insulin) blood-glucose meter (OneTouch #1 ea 03/12/22 Ultra2 Meter kit) pen needle, diabetic 31 gauge x #100 ea 03/12/22 5/16 (Lite Touch Insulin Pen [place]) lancets 33 gauge (OneTouch Delica #100 ea 03/13/22 Lancets) cyanocobalamin (vitamin B-12) 1,000 mcg PO DAILY 90 days #90 tabs 04/25/22 1,000 mcg tablet flash glucose scanning reader #1 ea 06/12/22 (FreeStyle [place] 2 [place]) flash glucose sensor (FreeStyle #2 ea 06/12/22 I[place] 2 Sensor kit) dicyclomine 20 mg tablet 20 mg PO QID PRN abdominal pain 07/05/22 #20 tabs ondansetron HCl 4 mg tablet 4 mg PO Q6H PRN nausea and 07/06/22 vomiting #14 tabs oxybutynin chloride 10 mg 10 mg PO DAILY #90 tabs 08/20/22 tablet,extended release 24 hr atorvastatin 80 mg tablet 80 mg PO DAILY #90 tabs 08/23/22 gabapentin 400 mg capsule 800 mg PO BID #120 caps 08/29/22 lisinopril 10 mg tablet 10 mg PO DAILY #90 tabs 09/05/22 WALKER #1 ea 10/14/22 omeprazole 40 mg capsule,delayed 40 mg PO DAILY 30 days #30 caps 10/14/22 release metoprolol tartrate 50 mg tablet 50 mg PO BID #180 tabs 10/28/22 paroxetine HCl 40 mg tablet 40 mg PO DAILY #90 tabs 10/31/22 cholecalciferol (vitamin D3) 50 50 mcg PO DAILY 90 days #90 caps 11/04/22 mcg (2,000 unit) capsule albuterol sulfate 90 mcg/actuation 2 puff PO Q4-6H PRN for wheezing 11/12/22 aerosol inhaler #8.5 grams metoclopramide HCl 10 mg tablet 10 mg PO AC PRN nausea and 11/12/22 (Reglan) vomiting #20 tabs Allergies Allergy/AdvReac Type Severity Reaction Status Date / Time hydromorphone [Dilaudid] AdvReac Unknown confusion Verified 10/14/22 13:11 From DILAUDID AdvReac Severe CONFUSION/H Uncoded 10/14/22 13:11 ALLUCIATION S From PERCOCET AdvReac Intermediate AGITATION Uncoded 08/07/23 13:11 Review of Systems Review of Systems Constitutional : No Weight loss, No Fever, No Chills Cardiovascular : No Chest Pain, No SOB, NoEdema Respiratory : No Cough, No Sputum, No Wheezing Gastrointestinal : no Nausea, no Vomiting, pos Diarrhea, positive abdominal Pain, No Hematochezia, No Melena Genitourinary : No Dysuria, No Urinary Frequency, No Hematuria, No Urgency Musculoskeletal : No joint pain, No Myalgias, No Joint Swelling Skin : No Skin Lesions, No rash Neuro : No Weakness, No Numbness, No Dizziness, No Headache Psych : No Anxiety/Panic, No Depression All other systems reviewed and are negative. FORMERLY [facility], 1928–1983 Past Medical History Attestation statement: The following information was validated with the patient. Source: old records reviewed Medical History Benign essential hypertension Benign prostatic hyperplasia with urinary frequency Constipation Coronary artery disease Diabetes mellitus Diabetic polyneuropathy Gastritis and duodenitis Hyperkalemia Intertrigo Major depressive disorder, recurrent Obesity (BMI 30-39.9) Obstructive sleep apnea Pure hypercholesterolemia Vitamin B12 deficiency Vitamin D deficiency Surgical History History of prostate surgery (~12/04/10) History of quadruple bypass (~2005) Hx of cataract extraction (~2011) Hx of cholecystectomy (~2007) Hx of cystoscopy Family History Family History Father Lung cancer Mother Diabetes Hypertension Stomach cancer Social History Social History Household Members: None Housing: Apartment Do you presently have visiting nurse or other home services: No Alcohol intake: never Patient Tobacco Use Status: Former Tobacco user Quit Date: 17 years ago Smoked in Last 30 Days: No e-Cigarette/Vaping Use: Never Used Second Hand Smoke Exposure: No Use of substances other than those prescribed or required for medical reasons: No Advance Directives: No Advance Directives Date on File: 05/09/20 service: No Current occupational status: disabled Cognitive needs: Yes (cane) Hearing needs: No Vision needs: Yes Physical Exam ED Vital Signs: Vital Signs - 24 hr 11/13/22 11:50 11/13/22 12:01 11/13/22 13:51 Temperature 97.9 F Pulse Rate 69 76 Respiratory Rate 16 14 Blood Pressure 160/66 H 149/58 H Pulse Oximetry 95 96 Oxygen Delivery Method Room Air Room Air BMI result Body Mass Index 38.3 Appearance: Alert. Oriented X3. No acute distress. Eyes: Pupils equal, round and reactive to light. ENT: Pharynx normal. Neck: Normal inspection. Neck supple. CVS: Normal heart rate and rhythm. Pulses normal. Respiratory: No respiratory distress. Breath sounds normal. Abdomen: Soft and nontender. Skin: Skin warm and dry. Normal skin color. Normal skin turgor. Extremities: No lower extremity edema. No calf ttp Neuro: Oriented X 3. No motor deficit. No sensory deficit. Course Course Course Narrative: states he has no pain wants to go home and feels fine, pending UA states he only missed his meds for one day and will take them again. he is tolerating PO no pain or diarrhea here Reevaluation(s) Reevaluation #1: johnny has no urinary symptoms he urinated and we did not get sample at this time he states he feels better and really wants to leave he does not want to stay for urine sample Medical Decision Making Medical Decision Making [facility] Narrative: 67 yo male with PMH of ETOH abuse, gastritis, COPD with asthma, pancreatitis, ED, BPH, DM, JAIME, CAD, HLD here with c/o abdominal pain and diarrhea that resolved yesterday. He states he feels fine now and has no complaints. His GUEST EXPERIENCE MANAGER told EMS he hasn't been eating or drinking much for 2 days and he is not taking his medications. He tells me just doesn't want to. He has no pain on exam at this time. He is somewhat acting off but answers questions as he should. I have ordered labs, UA, bladder scan. I am holding CT scan as he has no pain to palpation and his pain has resolved. Differential Diagnosis Differential Diagnoses: The differential diagnosis associated with the presentation includes UTI, retention, non compliance, constipation Admission/Observation Consideration of admission/observation: Escalation of care including admission/observation considered labs normal no pain tolerating PO not in DKA stable for DC Lab Data [facility] Lab Attestation statement: I reviewed the patient's lab results. 11/13/22 12:37 11/13/22 12:37 Labs: Lab Results 0911/13/22 11/13/22 Range/Units 12:36 12:37 12:37 WBC 9.5 (4.8-10.8) X10*3/uL RBC 3.96 L (4.60-5.80) X10*6/uL Hgb 12.0 L (14.0-18.0) g/dl Hct 35.5 L (42.0-52.0) % MCV 89.6 (80.0-98.0) fL MCH 30.3 (27.0-33.0) pg MCHC 33.8 (31.0-36.0) g/dl RDW 12.3 (11.0-16.0) % Plt Count 212 (160-400) X10*3/uL MPV 12.8 H (9.4-12.4) fL Immature Gran % (Auto) 0.3 (0.0-0.4) % Neut % (Auto) 72.2 (45-73) % Lymph % (Auto) 18.6 L (20-40) % [place] % (Auto) 8.2 (2-11) % Eos % (Auto) 0.5 (0-4) % Baso % (Auto) 0.2 (0-2) % Lymph # (Auto) 1.8 (1.2-4.9) X10*3/uL [place] # (Auto) 0.8 (0.1-1.2) X10*3/uL Eos # (Auto) 0.1 (0.0-0.4) X10*3/uL Baso # (Auto) 0.0 (0.0-0.2) X10*3/uL Abs Immat Gran (auto) 0.03 (0.00-0.03) X10*3/uL Absolute Neuts (auto) 6.9 (2.0-8.3) x10*3/uL Absolute Nucleated RBC 0.000 (0.0-0.012) X10*3/uL Nucleated RBC % (auto) 0.0 (0.0-0.2) /100WBC Sodium 135 (135-145) mmol/L Potassium 4.5 (3.3-5.1) mmol/L Chloride 99 (96-108) mmol/L Carbon Dioxide 30 H (22-29) mmol/L Anion Gap 11 L (12-20) BUN 20 H (9-16) mg/dL Creatinine 1.23 (0.5-1.4) mg/dL Estim Creat Clear Calc 60.9 Estimated GFR 58 Random Glucose 414 H* (60-115) mg/dL Calcium 9.8 (8.4-10.2) mg/dL Magnesium 1.8 (1.6-2.6) mg/dL Total Bilirubin 0.6 (0.0-1.0) mg/dL Direct Bilirubin 0.2 (0.0-0.5) mg/dL AST 20 (5-37) U/L ALT 20 (0-40) U/L Alkaline Phosphatase 134 H (39-117) U/L Ammonia (13-55) umol/L Troponin I High Sens 6.6 D (<3.5-35.0) ng/L Total Protein 7.7 (6.5-8.0) g/dL Albumin 3.8 (3.5-5.0) g/dL Lipase 16 (8-78) U/L Ethyl Alcohol < 10 mg/dL 11/13/22 Range/Units 12:37 WBC (4.8-10.8) X10*3/uL RBC (4.60-5.80) X10*6/uL Hgb (14.0-18.0) g/dl Hct (42.0-52.0) % MCV (80.0-98.0) fL MCH (27.0-33.0) pg MCHC (31.0-36.0) g/dl RDW (11.0-16.0) % Plt Count (160-400) X10*3/uL MPV (9.4-12.4) fL Immature Gran % (Auto) (0.0-0.4) % Neut % (Auto) (45-73) % Lymph % (Auto) (20-40) % [place] % (Auto) (2-11) % Eos % (Auto) (0-4) % Baso % (Auto) (0-2) % Lymph # (Auto) (1.2-4.9) X10*3/uL [place] # (Auto) (0.1-1.2) X10*3/uL Eos # (Auto) (0.0-0.4) X10*3/uL Baso # (Auto) (0.0-0.2) X10*3/uL Abs Immat Gran (auto) (0.00-0.03) X10*3/uL Absolute Neuts (auto) (2.0-8.3) x10*3/uL Absolute Nucleated RBC (0.0-0.012) X10*3/uL Nucleated RBC % (auto) (0.0-0.2) /100WBC Sodium (135-145) mmol/L Potassium (3.3-5.1) mmol/L Chloride (96-108) mmol/L Carbon Dioxide (22-29) mmol/L Anion Gap (12-20) BUN (9-16) mg/dL Creatinine (0.5-1.4) mg/dL Estim Creat Clear Calc Estimated GFR Random Glucose (60-115) mg/dL Calcium (8.4-10.2) mg/dL Magnesium (1.6-2.6) mg/dL Total Bilirubin (0.0-1.0) mg/dL Direct Bilirubin (0.0-0.5) mg/dL AST (5-37) U/L ALT (0-40) U/L Alkaline Phosphatase (39-117) U/L Ammonia 25 (13-55) umol/L Troponin I High Sens (<3.5-35.0) ng/L Total Protein (6.5-8.0) g/dL Albumin (3.5-5.0) g/dL Lipase (8-78) U/L Ethyl Alcohol mg/dL Independent Interpretation I performed an independent interpretation of an: EKG Interpretation: Rate: 70 Rhythm: NSR with 1st degree AVB [place]: left Normal P waves. Normal JOHN. Normal QRS complex. ST T wave : normal no BERNARDA qTC: normal prior studies: no acute ischemia The study has been interpreted contemporaneously by me. . External Record Review External record reviewed: Inpatient record Tests considered The following testing was considered but not selected: CT scan - has no pain to palpation not indicated right now Social Determinants Patient?s care significantly limited by Social Determinants of Health including: Problems related to primary support group Discharge Plan Discharge Clinical Impression: Abdominal pain, Acute hyperglycemia Patient Disposition: Home, Self-Care Instructions: Abdominal Pain (ED), Diabetic Hyperglycemia (ED) Additional Instructions: TAKE YOUR MEDICATIONS. return for worsening symptoms - return of pain or diarrhea. return if you have fevers, vomiting, diarrhea, black or bloody stools, or any other concerns. ALLIE TUS MEDICAMENTOS. Regrese si los s?ntomas empeoran: regreso del dolor o diarrea. Regrese si tiene fiebre, v?mitos, diarrea, heces negras o con marina, o cualquier otra inquietud. Prescriptions: No Action fluticasone propionate 50 mcg/actuation spray,suspension 1 spray intranasal DAILY Qty: 16 2RF aspirin 81 mg tablet,delayed release (DR/EC) 81 mg PO DAILY Qty: 90 3RF insulin glargine [Lantus Solostar U-100 Insulin] 100 unit/mL (3 mL) insulin pen 80 unit subcut BID 30 Days Qty: 48 3RF (DME) blood-glucose meter [FlexMinder Ultra2 Meter] Kit See Rx Instructions .Route Qty: 1 0RF Rx Instructions: As directed- To test blood sugar three times daily (DME) pen needle, diabetic [Lite Touch Insulin Pen [place]] 31 gauge x 5/16 needle See Rx Instructions .Route Qty: 100 12RF Rx Instructions: Use 3 times daily (DME) lancets [ProPerformaTouch Delica Lancets] 33 gauge misc See Rx Instructions .Route Qty: 100 12RF Rx Instructions: As directed 3 times a day cyanocobalamin (vitamin B-12) 1,000 mcg tablet 1,000 mcg PO DAILY 90 Days Qty: 90 3RF oxybutynin chloride 10 mg tablet extended release 24hr 10 mg PO DAILY Qty: 90 0RF atorvastatin 80 mg tablet 80 mg PO DAILY Qty: 90 1RF gabapentin 400 mg capsule 800 mg PO BID Qty: 120 3RF Rx Instructions: take 2 capsules orally twice a day lisinopril 10 mg tablet 10 mg PO DAILY Qty: 90 0RF omeprazole 40 mg capsule,delayed release(DR/EC) 40 mg PO DAILY 30 Days Qty: 30 3RF metoprolol tartrate 50 mg tablet 50 mg PO BID Qty: 180 1RF paroxetine HCl 40 mg tablet 40 mg PO DAILY Qty: 90 0RF cholecalciferol (vitamin D3) 50 mcg (2,000 unit) capsule 50 mcg PO DAILY 90 Days Qty: 90 3RF albuterol sulfate 90 mcg/actuation HFA aerosol inhaler 2 puff PO Q4-6H PRN (Reason: for wheezing) Qty: 8.5 2RF metoclopramide HCl [Reglan] 10 mg tablet 10 mg PO AC PRN (Reason: nausea and vomiting) Qty: 20 0RF dicyclomine 20 mg tablet 20 mg PO QID PRN (Reason: abdominal pain) Qty: 20 0RF ondansetron HCl 4 mg tablet 4 mg PO Q6H PRN (Reason: nausea and vomiting) Qty: 14 0RF polyethylene glycol 3350 [Miralax] 17 gram/dose powder 17 g PO DAILY PRN (Reason: Constipation) insulin lispro [Humalog KwikPen Insulin] 100 unit/mL insulin pen 15 - 20 unit subcut BID (DME) SHOWER CHAIR See Rx Instructions .Route .MEDSUPPLY Qty: 1 0RF [place] Instructions: [place] [place] SHOWER CHAIR See Rx Instructions .Route .MEDSUPPLY Qty: 1 0RF Rx Instructions: [place] [place] syr/ndl U100 half gareth 0.5 mL 30 gauge x 5/16 syringe See Rx Instructions .Route Qty: 100 12RF Rx Instructions: Use 4 times daily [place] [place] WALKER See Rx Instructions .Route .MEDSUPPLY Qty: 1 0RF Rx Instructions: [place] directed [place] [place] blood-glucose meter [OneTouch Ultra2 Meter] Misc See Rx Instructions .ROUTE TID Qty: 1 Rx Instructions: As directed [place] [place] FreeStyle [place] 2 Sensor Kit See Rx Instructions .Route Qty: 2 5RF Rx Instructions: As directed change every 14 days [place] [place] FreeStyle [place] 2 [place] Misc See Rx Instructions .Route Qty: 1 0RF Rx Instructions: As directed Print Language: Guatemalan
--- NOTE | 2022-11-13 12:40 | PC.NURSE ---
20G IV placed to left wrist. labs drawn and sent. awaiting CT scan.
[2022-11-13 12:44] LABS: MANUAL DIFF FLAG NO
[2022-11-13 12:47] LABS: Basophils Percent Auto 0.2 % (0-2); Eosinophils Absolute Auto 0.1 X10*3/uL (0.0-0.4); Eosinophils Percent Auto 0.5 % (0-4); Hematocrit 35.5 % (42.0-52.0); Imm Gran Abs Auto 0.03 X10*3/uL (0.00-0.03); Imm Gran Pct Auto 0.3 % (0.0-0.4); Lymphocytes Absolute Auto 1.8 X10*3/uL (1.2-4.9); Lymphocytes Percent Auto 18.6 % (20-40); Mean Corpuscular HGB Conc 33.8 g/dl (31.0-36.0); Mean Corpuscular Hemoglobin 30.3 pg (27.0-33.0); Mean Corpuscular Volume 89.6 fL (80.0-98.0); Mean Platelet Volume 12.8 fL (9.4-12.4); Monocytes Absolute Auto 0.8 X10*3/uL (0.1-1.2); Monocytes Percent Auto 8.2 % (2-11); Neutrophils Absolute Auto 6.9 x10*3/uL (2.0-8.3); Neutrophils Percent Auto 72.2 % (45-73); Platelet Count 212 X10*3/uL (160-400); Red Blood Count 3.96 X10*6/uL (4.60-5.80); Red Cell Distribution Width 12.3 % (11.0-16.0); White Blood Count 9.5 X10*3/uL (4.8-10.8)
[2022-11-13 12:57] LABS: Ammonia 25 umol/L (13-55)
[2022-11-13 13:09] LABS: Alanine Aminotransferase 20 U/L (0-40); Albumin Level 3.8 g/dL (3.5-5.0); Alkaline Phosphatase 134 U/L (39-117); Anion Gap 11 (12-20); Aspartate Amino Transferase 20 U/L (5-37); Bilirubin Direct 0.2 mg/dL (0.0-0.5); Bilirubin Total 0.6 mg/dL (0.0-1.0); Blood Urea Nitrogen 20 mg/dL (9-16); Calcium 9.8 mg/dL (8.4-10.2); Carbon Dioxide 30 mmol/L (22-29); Chloride 99 mmol/L (96-108); Creatinine Clr Calc Pharmacy 60.9; Estimated Glomerular Filt Rate 58; Ethanol < 10 mg/dL; Glucose Random 414 mg/dL (60-115); Lipase 16 U/L (8-78); Magnesium 1.8 mg/dL (1.6-2.6); Potassium 4.5 mmol/L (3.3-5.1); Sodium 135 mmol/L (135-145); Total Protein 7.7 g/dL (6.5-8.0)
[2022-11-13 13:12] LABS: Troponin-I High Sensitivity 6.6 ng/L (<3.5-35.0)
[2022-11-13 13:51] VITALS: BP 149/58; PULSE 76; RESP 14; O2SAT 96
--- NOTE | 2022-11-13 15:16 | PC.NURSE ---
pt unable to urinate; aware
== END 2022-11-13 15:32 | disposition home or self-care (01) ==
PROVIDERS: Emergency Provider Emergency Medicine; PCP Internal Medicine
DX: R10.32 Left lower quadrant pain (principal); E11.65 Type 2 diabetes mellitus with hyperglycemia; I10 Essential (primary) hypertension; E78.00 Pure hypercholesterolemia, unspecified; F10.11 Alcohol abuse, in remission; E66.9 Obesity, unspecified; Z68.38 Body mass index [BMI] 38.0-38.9, adult; R29.6 Repeated falls; Z91.81 History of falling; Z91.148 Patient's other noncompliance with medication regimen for other reason; Z87.891 Personal history of nicotine dependence
CPT/HCPCS: 36415; 51798; 80048; 80076; 80307; 82140; 83690; 83735; 84484; 85025; 93005; 99283; 99285

== ENCOUNTER 2023-02-11 12:06 | Emergency (ER) | payer OTHER, SELFPAY ==
--- NOTE | ~2023-02-11 | CT_ITS ---
EXAMINATION: CT ABDOMEN AND PELVIS WITH CONTRAST CLINICAL INFORMATION: Periumbilical abdominal pain COMPARISON: Previous CT of the abdomen and pelvis June 2022 TECHNIQUE: Multidetector volumetric images were obtained from the superior aspect of the liver through the pubic symphysis following administration 85 mL of Omnipaque 350 intravenous contrast. Sagittal and coronal reformatted images were obtained on the technologist's workstation. Oral contrast: Yes This CT examination was performed using dose optimization techniques as appropriate, variously including the following: *Automated exposure control *Adjustment of mA and/or kV according to patient size (this includes techniques or standardized protocols for targeted exams where dose is matched to indication/reason for exam; i.e. extremities or head) *Use of iterative reconstruction technique DLP: 781 mGy-cm FINDINGS: LUNG BASES: The visualized lung bases are clear. Median sternotomy wires. Coronary artery calcification. LIVER, GALLBLADDER, AND BILIARY TREE: The liver is normal in size, shape, and attenuation. No focal hepatic lesion or biliary ductal dilatation is present. The gallbladder has been removed. PANCREAS: Unremarkable. SPLEEN: Unremarkable. ADRENAL GLANDS: Unremarkable. KIDNEYS AND URETERS: The kidneys are normal in size, shape, and attenuation. No hydronephrosis, hydroureter, or calculi seen. No perinephric stranding. BLADDER: Unremarkable. GASTROINTESTINAL TRACT: The small and large bowel are unremarkable. The appendix is unremarkable. ABDOMINAL WALL: No significant hernia is appreciated. LYMPH NODES: Normal. VASCULAR: Atherosclerotic disease. No aneurysm PELVIC VISCERA: Unremarkable. OSSEOUS STRUCTURES: Degenerative changes. CT/CT abdomen pelvis w IV con IMPRESSION: No acute findings. Normal appendix. Fleischner guidelines were followed.
[2023-02-11 12:12] VITALS: BP 134/86; PULSE 60; O2SAT 94
[2023-02-11 12:15] VITALS: BP 146/46; PULSE 54; RESP 20; TEMP 36.1; O2SAT 94; BMI 41.2
[2023-02-11 12:24] LABS: Glucose, Whole Blood 276 mg/dL (60-115)
[2023-02-11 12:40] LABS: MANUAL DIFF FLAG NO
[2023-02-11 12:51] LABS: Basophils Percent Auto 0.3 % (0-2); Eosinophils Absolute Auto 0.1 X10*3/uL (0.0-0.4); Eosinophils Percent Auto 0.7 % (0-4); Hematocrit 35.4 % (42.0-52.0); Hemoglobin 11.9 g/dl (14.0-18.0); Imm Gran Abs Auto 0.02 X10*3/uL (0.00-0.03); Imm Gran Pct Auto 0.3 % (0.0-0.4); Mean Corpuscular HGB Conc 33.6 g/dl (31.0-36.0); Red Cell Distribution Width 12.3 % (11.0-16.0); SCAN SMEAR FLAG 1
[2023-02-11 12:53] LABS: Lymphocytes Absolute Auto 1.9 X10*3/uL (1.2-4.9); Lymphocytes Percent Auto 24.8 % (20-40); Mean Corpuscular Hemoglobin 30.4 pg (27.0-33.0); Mean Corpuscular Volume 90.5 fL (80.0-98.0); Mean Platelet Volume 13.1 fL (9.4-12.4); Monocytes Absolute Auto 0.7 X10*3/uL (0.1-1.2); Monocytes Percent Auto 9.9 % (2-11); Neutrophils Absolute Auto 4.8 x10*3/uL (2.0-8.3); Platelet Count 165 X10*3/uL (160-400); Red Blood Count 3.91 X10*6/uL (4.60-5.80); White Blood Count 7.5 X10*3/uL (4.8-10.8)
[2023-02-11 12:54] LABS: PLT ABN DIST 1
[2023-02-11 12:58] LABS: Alanine Aminotransferase 19 U/L (0-40); Albumin Level 3.6 g/dL (3.5-5.0); Alkaline Phosphatase 116 U/L (39-117); Anion Gap 15 (12-20); Aspartate Amino Transferase 26 U/L (5-37); Bilirubin Direct 0.3 mg/dL (0.0-0.5); Bilirubin Total 0.9 mg/dL (0.0-1.0); Blood Urea Nitrogen 16 mg/dL (9-16); Calcium 9.4 mg/dL (8.4-10.2); Carbon Dioxide 25 mmol/L (22-29); Chloride 102 mmol/L (96-108); Creatinine Clr Calc Pharmacy 80.3; Estimated Glomerular Filt Rate > 60; Glucose Random 306 mg/dL (60-115); Potassium 4.5 mmol/L (3.3-5.1); Sodium 137 mmol/L (135-145); Total Protein 7.1 g/dL (6.5-8.0)
[2023-02-11] MEDS: iohexoL 350 MG/ML 75 ML INFUS..BTL 85 ML IV (13:32)
[2023-02-11] MEDS: Morphine Sulfate 2 MG/ML CARTRIDGE IVPUSH (13:38)
[2023-02-11] MEDS: 0.9 % Sodium Chloride 1,000 ML 999 ML IV (13:38)
[2023-02-11] MEDS: ondansetron HCL 4 MG/2 ML VIAL IVPUSH (13:50)
--- NOTE | 2023-02-11 14:00 | ED_ITS ---
HPI - Abdominal Pain General Chief Complaint: Abdominal Pain Stated Complaint: UPPER ABD/THROAT PAIN PER EMS Time Seen by Provider: 02/11/23 13:02 Source: patient, EMS, RN notes reviewed and old records reviewed Mode of arrival: EMS History of Present Illness HPI narrative: 67-year-old male with a past medical history of gastritis, duodenitis, JAIME, major depression, diabetes, HTN, HLD, CAD, presenting to the ED complaining of generalized/lower abdominal pain since last night with associated nausea. Denies known fever, chills, vomiting, diarrhea/constipation, dysuria/hematuria. MD elicited complaint: abdominal pain Related Data Home Medications Medication Instructions Recorded Confirmed insulin lispro 100 unit/mL 15 - 20 unit subcut BID 10/09/22 10/21/22 subcutaneous pen (Humalog KwikPen (U-100) Insulin) polyethylene glycol 3350 17 17 g PO DAILY PRN Constipation 10/09/22 10/21/22 gram/dose oral powder (Miralax) blood-glucose meter (Awesomiuch #1 ea 11/27/22 Ultra2 Meter) Previous Rx's Medication Instructions Recorded SHOWER CHAIR #1 ea 10/05/20 SHOWER CHAIR #1 ea 01/10/21 fluticasone propionate 50 1 spray intranasal DAILY #16 grams 03/16/21 mcg/actuation nasal spray,suspension insulin syr/ndl U100 half gareth 0.5 #100 ea 05/14/21 mL 30 gauge x 07/23 aspirin 81 mg tablet,delayed 81 mg PO DAILY #90 tabs 01/14/22 release pen needle, diabetic 31 gauge x #100 ea 03/12/2207/23 (Lite Touch Insulin Pen [place]) lancets 33 gauge (OneTouch Delica #100 ea 03/13/22 Lancets) cyanocobalamin (vitamin B-12) 1,000 mcg PO DAILY 90 days #90 tabs 04/25/22 1,000 mcg tablet dicyclomine 20 mg tablet 20 mg PO QID PRN abdominal pain 07/05/22 #20 tabs ondansetron HCl 4 mg tablet 4 mg PO Q6H PRN nausea and 07/06/22 vomiting #14 tabs atorvastatin 80 mg tablet 80 mg PO DAILY #90 tabs 08/23/22 gabapentin 400 mg capsule 800 mg (2 x 400 mg) PO BID #120 08/29/22 caps WALKER #1 ea 10/14/22 omeprazole 40 mg capsule,delayed 40 mg PO DAILY 30 days #30 caps 10/14/22 release metoprolol tartrate 50 mg tablet 50 mg PO BID #180 tabs 10/28/22 paroxetine HCl 40 mg tablet 40 mg PO DAILY #90 tabs 10/31/22 cholecalciferol (vitamin D3) 50 50 mcg PO DAILY 90 days #90 caps 11/04/22 mcg (2,000 unit) capsule albuterol sulfate 90 mcg/actuation 2 puff PO Q4-6H PRN for wheezing 11/12/22 aerosol inhaler #8.5 grams metoclopramide HCl 10 mg tablet 10 mg PO AC PRN nausea and 11/12/22 (Reglan) vomiting #20 tabs insulin glargine 100 unit/mL (3 80 unit (0.8 mL) subcut BID 30 11/22/22 mL) subcutaneous pen (Lantus days #48 mL Solostar U-100 Insulin) blood sugar diagnostic 1 strip miscellaneous TID #100 11/27/22 strips oxybutynin chloride 10 mg 10 mg PO DAILY #90 tabs 12/20/22 tablet,extended release 24 hr blood sugar diagnostic (OneTouch #100 ea 01/13/23 Ultra Test strips) lisinopril 10 mg tablet 10 mg PO DAILY #90 tabs 01/13/23 Allergies Allergy/AdvReac Type Severity Reaction Status Date / Time hydromorphone [Dilaudid] AdvReac Unknown confusion Verified 10/14/22 13:11 From DILAUDID AdvReac Severe CONFUSION/H Uncoded 10/14/22 13:11 ALLUCIATION S From PERCOCET AdvReac Intermediate AGITATION Uncoded 10/14/22 13:11 Review of Systems Review of Systems Constitutional: No Fever, No Chills ENT/Mouth: No Ear Pain, No Nasal Congestion, No sore throat, No Rhinorrhea, No Swallowing Difficulty Cardiovascular: No Chest Pain, No SOB Respiratory: No Cough, No Sputum, No Wheezing Gastrointestinal: + Nausea, No Vomiting, No Diarrhea, No Constipation, + Abdominal pain Genitourinary: No Dysuria, No Urinary Frequency, No Hematuria, No Flank Pain Musculoskeletal: No joint pain, No Myalgias, No Joint Swelling Skin: No Skin Lesions, No rash Neuro: No Weakness Yes all other systems are reviewed and are negative Constitutional: Reports as per [facility] Past Medical History Attestation statement: The following information was validated with the patient. Source: old records reviewed Medical History Gastritis and duodenitis Vitamin B12 deficiency Hyperkalemia Intertrigo Major depressive disorder, recurrent Benign prostatic hyperplasia with urinary frequency Constipation Obstructive sleep apnea Vitamin D deficiency Diabetic polyneuropathy Diabetes mellitus Obesity (BMI 30-39.9) Benign essential hypertension Pure hypercholesterolemia Coronary artery disease Surgical History Hx of cataract extraction (~2011) History of quadruple bypass (~2005) Hx of cystoscopy History of prostate surgery (~12/04/10) Hx of cholecystectomy (~2007) Family History Family History Father Lung cancer Mother Diabetes Hypertension Stomach cancer Social History Social History Household Members: None Housing: Apartment Do you presently have visiting nurse or other home services: No Alcohol intake: never Patient Tobacco Use Status: Former Tobacco user Quit Date: 17 years ago Smoked in Last 30 Days: No e-Cigarette/Vaping Use: Never Used Second Hand Smoke Exposure: No Use of substances other than those prescribed or required for medical reasons: No Advance Directives: Yes Advance Directives Information Provided: Yes Advance Directives on File: No Advance Directives Date on File: 05/09/20 service: No Current occupational status: disabled Cognitive needs: Yes (cane) Hearing needs: No Vision needs: Yes Physical Exam ED Vital Signs: Vital Signs - 24 hr 02/11/23 12:15 02/11/23 15:16 Temperature 96.9 F Pulse Rate 54 51 Respiratory Rate 20 16 Blood Pressure 146/46 H 133/55 L Pulse Oximetry 94 96 Oxygen Delivery Method Room Air Room Air BMI result Body Mass Index 41.2 Const General: cooperative, healthy appearing and no acute distress Orientation/consciousness: patient oriented x3 Limitations: no limitations HENMT Head: Yes normal to inspection and Yes atraumatic Ears: hearing grossly normal bilaterally General nose exam: Normal external nose present Face and sinus: Yes normal facial exam Eyes General: appearance normal, both eyes and all related structures EOM: EOMs intact bilaterally Neck Neck: Yes normal visual inspection and Yes no meningeal signs Resp Effort & Inspection: normal respiratory effort and no respiratory distress Auscultation: clear to auscultation bilaterally Cardio Rate: regular rate Heart sounds: S1 normal heart sound present and S2 normal heart sound present GI Inspection: Yes normal to inspection Palpation (GI): Soft to palpation, Tenderness to palpation present (GI) (Lower abdominal tenderness) with no rebound tenderness, no guarding and not rigid General: Yes no CVA tenderness Back/Spine/Pelvis Back: no CVA tenderness Skin Rashes: no rashes Wounds: no wounds Neuro General: patient oriented x3, tone normal and no meningeal signs Cranial nerves: Yes CN's II-XII intact bilaterally Gait exam (Neuro): Normal gait present Extrem General: Yes normal to inspection Course Course Course Narrative: -no leukocytosis. H&H at patient's baseline. Labs otherwise reassuring 1622--CT abdomen pelvis w IV con IMPRESSION: No acute findings. Normal appendix. Fleischner guidelines were followed. -1630--ED transfer to [facility] pending UA, p.o. challenge and dispo per results Medical Decision Making Medical Decision Making [facility] Narrative: 67-year-old male with a past medical history of gastritis, duodenitis, JAIME, major depression, diabetes, HTN, HLD, CAD, presenting to the ED complaining of generalized/lower abdominal pain since last night with associated nausea. On exam vital signs stable, NAD, nontoxic appearing, abdomen soft with lower tenderness, no rebound or guarding. Concern for appendicitis/diverticulitis vs colitis vs UTI. Lower suspicion for renal stone, pancreatitis/cholecystitis/lithiasis at this time. Plan: Labs, UA, CT, IVF, pain control, re-evaluate Please refer to course for remaining clinical decision making, interpretation of labs/imaging results, and discussions with consultants and/or family members. Differential Diagnosis Differential Diagnoses: The differential diagnosis associated with the presentation includes As above Admission/Observation Consideration of admission/observation: Escalation of care including admission/observation considered Lab Data [facility] Lab Attestation statement: I reviewed the patient's lab results. 02/11/23 12:36 02/11/23 12:36 Labs: Lab Results 02/11/23 02/11/23 Range/Units 12:20 12:36 WBC 7.5 (4.8-10.8) X10*3/uL RBC 3.91 L (4.60-5.80) X10*6/uL Hgb 11.9 L (14.0-18.0) g/dl Hct 35.4 L (42.0-52.0) % MCV 90.5 (80.0-98.0) fL MCH 30.4 (27.0-33.0) pg MCHC 33.6 (31.0-36.0) g/dl RDW 12.3 (11.0-16.0) % Plt Count 165 (160-400) X10*3/uL MPV 13.1 H (9.4-12.4) fL Immature Gran % (Auto) 0.3 (0.0-0.4) % Neut % (Auto) 64.0 (45-73) % Lymph % (Auto) 24.8 (20-40) % [place] % (Auto) 9.9 (2-11) % Eos % (Auto) 0.7 (0-4) % Baso % (Auto) 0.3 (0-2) % Lymph # (Auto) 1.9 (1.2-4.9) X10*3/uL [place] # (Auto) 0.7 (0.1-1.2) X10*3/uL Eos # (Auto) 0.1 (0.0-0.4) X10*3/uL Baso # (Auto) 0.0 (0.0-0.2) X10*3/uL Abs Immat Gran (auto) 0.02 (0.00-0.03) X10*3/uL Absolute Neuts (auto) 4.8 (2.0-8.3) x10*3/uL Absolute Nucleated RBC 0.000 (0.0-0.012) X10*3/uL Nucleated RBC % (auto) 0.0 (0.0-0.2) /100WBC Sodium 137 (135-145) mmol/L Potassium 4.5 (3.3-5.1) mmol/L Chloride 102 (96-108) mmol/L Carbon Dioxide 25 (22-29) mmol/L Anion Gap 15 (12-20) BUN 16 (9-16) mg/dL Creatinine 0.97 (0.5-1.4) mg/dL Estim Creat Clear Calc 80.3 Estimated GFR > 60 POC Glucose 276 H (60-115) mg/dL Random Glucose 306 H (60-115) mg/dL Calcium 9.4 (8.4-10.2) mg/dL Magnesium 1.9 (1.6-2.6) mg/dL Total Bilirubin 0.9 (0.0-1.0) mg/dL Direct Bilirubin 0.3 (0.0-0.5) mg/dL AST 26 (5-37) U/L ALT 19 (0-40) U/L Alkaline Phosphatase 116 (39-117) U/L Total Protein 7.1 (6.5-8.0) g/dL Albumin 3.6 (3.5-5.0) g/dL Lipase 10 (8-78) U/L Independent Interpretation I performed an independent interpretation of an: CT Scan Radiology Impression Discussion of test interpretation with radiology: I have reviewed the radiologist's reading. Independent Historian Clinical information obtained from an independent historian. History obtained from or confirmed by: EMS External Record Review External record reviewed: Inpatient record, Office record, Outpatient record, Prior outpatient labs, Prior outpatient radiology, Primary care record and Outside ED record Tests considered The following testing was considered but not selected: As above Prescription Management I considered prescription management with: Pain Medication Chronic Conditions Patient?s care impacted by: Diabetes and Hypertension Medications Administered Discontinued Medications Generic Name Dose Route Start Last Admin Trade Name Freq PRN Reason Stop Dose Admin Sodium Chloride 1,000 mls @ 999 mls/hr 02/11/23 13:15 02/11/23 15:39 Ns IV 02/11/23 14:15 Infused .Q1H1M ABELARDO Infusion Iohexol 85 ml 02/11/23 13:32 02/11/23 13:32 Iohexol 350 Mg/Ml 75 Ml Infus..Btl IV 02/11/23 13:33 85 ml ONCE ONE Administration Morphine Sulfate 2 mg 02/11/23 13:14 02/11/23 13:38 Morphine Sulfate 2 Mg/Ml Cartridge IVPUSH 02/11/23 13:15 2 mg ONCE ONE Administration Protocol Ondansetron HCl 4 mg 02/11/23 13:43 02/11/23 13:50 Ondansetron Hcl 4 Mg/2 Ml Vial IVPUSH 02/11/23 13:44 4 mg ONCE ONE Administration Discharge Plan Discharge Clinical Impression: Abdominal pain Patient Disposition: Still a Patient Prescriptions: No Action fluticasone propionate 50 mcg/actuation spray,suspension 1 spray intranasal DAILY Qty: 16 2RF aspirin 81 mg tablet,delayed release (DR/EC) 81 mg PO DAILY Qty: 90 3RF (DME) pen needle, diabetic [Lite Touch Insulin Pen [place]] 31 gauge x 5/16 needle See Rx Instructions .Route Qty: 100 12RF Rx Instructions: Use 3 times daily (DME) lancets [Awesomiuch Delica Lancets] 33 gauge misc See Rx Instructions .Route Qty: 100 12RF Rx Instructions: As directed 3 times a day cyanocobalamin (vitamin B-12) 1,000 mcg tablet 1,000 mcg PO DAILY 90 Days Qty: 90 3RF atorvastatin 80 mg tablet 80 mg PO DAILY Qty: 90 1RF gabapentin 400 mg capsule 800 mg PO BID Qty: 120 3RF Rx Instructions: take 2 capsules orally twice a day omeprazole 40 mg capsule,delayed release(DR/EC) 40 mg PO DAILY 30 Days Qty: 30 3RF metoprolol tartrate 50 mg tablet 50 mg PO BID Qty: 180 1RF paroxetine HCl 40 mg tablet 40 mg PO DAILY Qty: 90 0RF cholecalciferol (vitamin D3) 50 mcg (2,000 unit) capsule 50 mcg PO DAILY 90 Days Qty: 90 3RF albuterol sulfate 90 mcg/actuation HFA aerosol inhaler 2 puff PO Q4-6H PRN (Reason: for wheezing) Qty: 8.5 2RF metoclopramide HCl [Reglan] 10 mg tablet 10 mg PO AC PRN (Reason: nausea and vomiting) Qty: 20 0RF insulin glargine [Lantus Solostar U-100 Insulin] 100 unit/mL (3 mL) insulin pen 80 unit subcut BID 30 Days Qty: 48 3RF OneTouch Ultra Blue Test Strip Strip 1 strip miscellaneous TID Qty: 100 3RF (DME) blood-glucose meter [OneTouch Ultra2 Meter] [facility] See Rx Instructions .ROUTE TID Qty: 1 Rx Instructions: test 3 times per day oxybutynin chloride 10 mg tablet extended release 24hr 10 mg PO DAILY Qty: 90 1RF (DME) OneTouch Ultra Test Strip See Rx Instructions .Route Qty: 100 8RF Rx Instructions: test 3 times per day lisinopril 10 mg tablet 10 mg PO DAILY Qty: 90 0RF dicyclomine 20 mg tablet 20 mg PO QID PRN (Reason: abdominal pain) Qty: 20 0RF ondansetron HCl 4 mg tablet 4 mg PO Q6H PRN (Reason: nausea and vomiting) Qty: 14 0RF polyethylene glycol 3350 [Miralax] 17 gram/dose powder 17 g PO DAILY PRN (Reason: Constipation) insulin lispro [Humalog KwikPen Insulin] 100 unit/mL insulin pen 15 - 20 unit subcut BID (DME) SHOWER CHAIR See Rx Instructions .Route .MEDSUPPLY Qty: 1 0RF Rx Instructions: As directed ([facility] [place]) SHOWER CHAIR See Rx Instructions .Route .MEDSUPPLY Qty: 1 0RF Rx Instructions: As directed ([facility] [place]) insulin syr/ndl U100 half gareth 0.5 mL 30 gauge x 5/16 syringe See Rx Instructions .Route Qty: 100 12RF Rx Instructions: Use 4 times daily (DME) WALKER See Rx Instructions .Route .MEDSUPPLY Qty: 1 0RF Rx Instructions: As directed
[2023-02-11 14:02] LABS: Lipase 10 U/L (8-78); Magnesium 1.9 mg/dL (1.6-2.6)
[2023-02-11 15:16] VITALS: BP 133/55; PULSE 51; RESP 16; O2SAT 96
--- NOTE | 2023-02-11 18:00 | PC.NURSE ---
Patient requesting to use bathroom. Given urinal at this time and instructed how to use urinal.
[2023-02-11 18:21] LABS: Appearance Urine Clear; Color Urine Yellow; Glucose Urine UA 500 mg/dL (Negative); Leukocyte Esterase Urine Negative (Negative); Nitrite Urine Negative (Negative); Specific Gravity - Urine >= 1.030 (1.005-1.025); Urine Blood Negative (Negative); Urine Ketones Negative (Negative); Urine Protein Trace mg/dL (Neg-Trace)
[2023-02-11 18:52] VITALS: BP 143/58; PULSE 54; RESP 16; TEMP 36.6; O2SAT 97
== END 2023-02-11 19:15 | disposition home or self-care (01) ==
PROVIDERS: Physician Assistant; Emergency Provider Emergency Medicine Emergency Medical Services; PCP Internal Medicine
DX: R10.30 Lower abdominal pain, unspecified (principal); R07.0 Pain in throat; I25.10 Atherosclerotic heart disease of native coronary artery without angina pectoris; E11.9 Type 2 diabetes mellitus without complications; R11.2 Nausea with vomiting, unspecified; Z79.4 Long term (current) use of insulin; Z79.899 Other long term (current) drug therapy; Z87.891 Personal history of nicotine dependence
CPT/HCPCS: 36415; 74177; 80048; 80076; 81003; 82947; 83690; 83735; 85025; 96361; 96374; 96375; 99284; J2270; J2405; Q9967

== ENCOUNTER 2023-02-13 20:45 | Emergency (ER) | payer OTHER, SELFPAY ==
--- NOTE | 2023-02-13 20:55 | ED_ITS ---
HPI - Abdominal Pain General Chief Complaint: General Medical Stated Complaint: Stomach Paim Related Data Home Medications Medication Instructions Recorded Confirmed insulin lispro 100 unit/mL 15 - 20 unit subcut BID 10/09/22 10/21/22 subcutaneous pen (Humalog KwikPen (U-100) Insulin) polyethylene glycol 3350 17 17 g PO DAILY PRN Constipation 10/09/22 10/21/22 gram/dose oral powder (Miralax) blood-glucose meter (PlacedTouch #1 ea 11/27/22 Ultra2 Meter) Previous Rx's Medication Instructions Recorded SHOWER CHAIR #1 ea 10/05/20 SHOWER CHAIR #1 ea 01/10/21 fluticasone propionate 50 1 spray intranasal DAILY #16 grams 03/16/21 mcg/actuation nasal spray,suspension insulin syr/ndl U100 half gareth 0.5 #100 ea 05/14/21 mL 30 gauge x 07/23 aspirin 81 mg tablet,delayed 81 mg PO DAILY #90 tabs 01/14/22 release pen needle, diabetic 31 gauge x #100 ea 03/12/2207/23 (Lite Touch Insulin Pen [place]) lancets 33 gauge (PlacedTouch Delica #100 ea 03/13/22 Lancets) cyanocobalamin (vitamin B-12) 1,000 mcg PO DAILY 90 days #90 tabs 04/25/22 1,000 mcg tablet dicyclomine 20 mg tablet 20 mg PO QID PRN abdominal pain 07/05/22 #20 tabs ondansetron HCl 4 mg tablet 4 mg PO Q6H PRN nausea and 07/06/22 vomiting #14 tabs atorvastatin 80 mg tablet 80 mg PO DAILY #90 tabs 08/23/22 WALKER #1 ea 10/14/22 omeprazole 40 mg capsule,delayed 40 mg PO DAILY 30 days #30 caps 10/14/22 release metoprolol tartrate 50 mg tablet 50 mg PO BID #180 tabs 10/28/22 paroxetine HCl 40 mg tablet 40 mg PO DAILY #90 tabs 10/31/22 cholecalciferol (vitamin D3) 50 50 mcg PO DAILY 90 days #90 caps 11/04/22 mcg (2,000 unit) capsule albuterol sulfate 90 mcg/actuation 2 puff PO Q4-6H PRN for wheezing 11/12/22 aerosol inhaler #8.5 grams metoclopramide HCl 10 mg tablet 10 mg PO AC PRN nausea and 11/12/22 (Reglan) vomiting #20 tabs insulin glargine 100 unit/mL (3 80 unit (0.8 mL) subcut BID 30 11/22/22 mL) subcutaneous pen (Lantus days #48 mL Solostar U-100 Insulin) blood sugar diagnostic 1 strip miscellaneous TID #100 11/27/22 strips oxybutynin chloride 10 mg 10 mg PO DAILY #90 tabs 12/20/22 tablet,extended release 24 hr blood sugar diagnostic (OneTouch #100 ea 01/13/23 Ultra Test strips) lisinopril 10 mg tablet 10 mg PO DAILY #90 tabs 01/13/23 gabapentin 400 mg capsule 800 mg (2 x 400 mg) PO BID #120 02/12/23 caps Allergies Allergy/AdvReac Type Severity Reaction Status Date / Time hydromorphone [Dilaudid] AdvReac Unknown confusion Verified 02/14/23 01:16 From DILAUDID AdvReac Severe CONFUSION/H Uncoded 02/14/23 01:16 ALLUCIATION S From PERCOCET AdvReac Intermediate AGITATION Uncoded 02/14/23 01:16 PMFSH Past Medical History Medical History Gastritis and duodenitis Vitamin B12 deficiency Hyperkalemia Intertrigo Major depressive disorder, recurrent Benign prostatic hyperplasia with urinary frequency Constipation Obstructive sleep apnea Vitamin D deficiency Diabetic polyneuropathy Diabetes mellitus Obesity (BMI 30-39.9) Benign essential hypertension Pure hypercholesterolemia Coronary artery disease Surgical History Hx of cataract extraction (~2011) History of quadruple bypass (~2005) Hx of cystoscopy History of prostate surgery (~12/04/10) Hx of cholecystectomy (~2007) Family History Family History Father Lung cancer Mother Diabetes Hypertension Stomach cancer Social History Social History Household Members: None Housing: Apartment Do you presently have visiting nurse or other home services: No Alcohol intake: never Patient Tobacco Use Status: Former Tobacco user Quit Date: 17 years ago Smoked in Last 30 Days: No e-Cigarette/Vaping Use: Never Used Second Hand Smoke Exposure: No Use of substances other than those prescribed or required for medical reasons: No Advance Directives: No Advance Directives Information Provided: No Advance Directives Date on File: 05/09/20 service: No Current occupational status: disabled Cognitive needs: Yes (cane) Hearing needs: No Vision needs: Yes Physical Exam ED Vital Signs: BMI result Body Mass Index 41.2 Course Course Course Narrative: This is an RME: Additional HPI, ROS, PE not included below will be deferred to primary provider. This is a 67 [id number] with a history of gastritis, duodenitis, JAIME, major depression, diabetes, HTN, HLD, CAD, presenting to the ED complaining of dizziness, abdominal pain and headache. +nausea, no vomiting or diarrhea. Pt was seen in the ER two days ago, had negative CT abd/pelvis. Plan: Labs, POC glucose Reevaluation(s) Reevaluation #1: pt eloped Medical Decision Making Lab Data 02/13/23 21:22 02/13/23 21:22 Labs: Lab Results 02/13/23 02/13/23 Range/Units 21:05 21:22 WBC 8.4 (4.8-10.8) X10*3/uL RBC 4.38 L (4.60-5.80) X10*6/uL Hgb 13.1 L (14.0-18.0) g/dl Hct 38.5 L (42.0-52.0) % MCV 87.9 (80.0-98.0) fL MCH 29.9 (27.0-33.0) pg MCHC 34.0 (31.0-36.0) g/dl RDW 12.2 (11.0-16.0) % Plt Count 178 (160-400) X10*3/uL MPV 12.8 H (9.4-12.4) fL Immature Gran % (Auto) 0.2 (0.0-0.4) % Neut % (Auto) 72.6 (45-73) % Lymph % (Auto) 20.4 (20-40) % Rogers % (Auto) 5.9 (2-11) % Eos % (Auto) 0.7 (0-4) % Baso % (Auto) 0.2 (0-2) % Lymph # (Auto) 1.7 (1.2-4.9) X10*3/uL Rogers # (Auto) 0.5 (0.1-1.2) X10*3/uL Eos # (Auto) 0.1 (0.0-0.4) X10*3/uL Baso # (Auto) 0.0 (0.0-0.2) X10*3/uL Abs Immat Gran (auto) 0.02 (0.00-0.03) X10*3/uL Absolute Neuts (auto) 6.1 (2.0-8.3) x10*3/uL Absolute Nucleated RBC 0.000 (0.0-0.012) X10*3/uL Nucleated RBC % (auto) 0.0 (0.0-0.2) /100WBC Sodium 140 (135-145) mmol/L Potassium 3.8 (3.3-5.1) mmol/L Chloride 102 (96-108) mmol/L Carbon Dioxide 25 (22-29) mmol/L Anion Gap 17 (12-20) BUN 14 (9-16) mg/dL Creatinine 1.02 (0.5-1.4) mg/dL Estim Creat Clear Calc 76.4 Estimated GFR > 60 POC Glucose 358 H* (60-115) mg/dL Random Glucose 361 H* (60-115) mg/dL Calcium 9.7 (8.4-10.2) mg/dL Magnesium 1.8 (1.6-2.6) mg/dL Total Bilirubin 0.7 (0.0-1.0) mg/dL Direct Bilirubin 0.2 (0.0-0.5) mg/dL AST 19 (5-37) U/L ALT 15 (0-40) U/L Alkaline Phosphatase 120 H (39-117) U/L Total Protein 7.1 (6.5-8.0) g/dL Albumin 3.7 (3.5-5.0) g/dL Lipase 12 (8-78) U/L Discharge Plan Discharge Clinical Impression: Nausea Patient Disposition: Left W/O Completing Treatment Prescriptions: No Action fluticasone propionate 50 mcg/actuation spray,suspension 1 spray intranasal DAILY Qty: 16 2RF aspirin 81 mg tablet,delayed release (DR/EC) 81 mg PO DAILY Qty: 90 3RF (DME) pen needle, diabetic [Lite Touch Insulin Pen Stafford] 31 gauge x 5/16 needle See Rx Instructions .Route Qty: 100 12RF Rx Instructions: Use 3 times daily (DME) lancets [OneTouch Delica Lancets] 33 gauge [facility] [place] See Rx Instructions .Route Qty: 100 12RF Rx Instructions: As directed 3 times a day cyanocobalamin (vitamin B-12) 1,000 mcg tablet 1,000 mcg PO DAILY 90 Days Qty: 90 3RF atorvastatin 80 mg tablet 80 mg PO DAILY Qty: 90 1RF omeprazole 40 mg capsule,delayed release(DR/EC) 40 mg PO DAILY 30 Days Qty: 30 3RF metoprolol tartrate 50 mg tablet 50 mg PO BID Qty: 180 1RF paroxetine HCl 40 mg tablet 40 mg PO DAILY Qty: 90 0RF cholecalciferol (vitamin D3) 50 mcg (2,000 unit) capsule 50 mcg PO DAILY 90 Days Qty: 90 3RF albuterol sulfate 90 mcg/actuation HFA aerosol inhaler 2 puff PO Q4-6H PRN (Reason: for wheezing) Qty: 8.5 2RF metoclopramide HCl [Reglan] 10 mg tablet 10 mg PO AC PRN (Reason: nausea and vomiting) Qty: 20 0RF insulin glargine [Lantus Solostar U-100 Insulin] 100 unit/mL (3 mL) insulin pen 80 unit subcut BID 30 Days Qty: 48 3RF OneTouch Ultra Blue Test Strip Strip 1 strip miscellaneous TID Qty: 100 3RF (DME) blood-glucose meter [OneTouch Ultra2 Meter] [facility] [place] See Rx Instructions .ROUTE TID Qty: 1 Rx Instructions: test 3 times per day oxybutynin chloride 10 mg tablet extended release 24hr 10 mg PO DAILY Qty: 90 1RF (DME) OneTouch Ultra Test Strip See Rx Instructions .Route Qty: 100 8RF Rx Instructions: test 3 times per day lisinopril 10 mg tablet 10 mg PO DAILY Qty: 90 0RF gabapentin 400 mg capsule 800 mg PO BID Qty: 120 3RF Rx Instructions: take 2 capsules orally twice a day dicyclomine 20 mg tablet 20 mg PO QID PRN (Reason: abdominal pain) Qty: 20 0RF ondansetron HCl 4 mg tablet 4 mg PO Q6H PRN (Reason: nausea and vomiting) Qty: 14 0RF polyethylene glycol 3350 [Miralax] 17 gram/dose powder 17 g PO DAILY PRN (Reason: Constipation) insulin lispro [Humalog KwikPen Insulin] 100 unit/mL insulin pen 15 - 20 unit subcut BID (DME) SHOWER CHAIR See Rx Instructions .Route .MEDSUPPLY Qty: 1 0RF Rx Instructions: [place] directed [place] [place] SHOWER CHAIR See Rx Instructions .Route .MEDSUPPLY Qty: 1 0RF Rx Instructions: As directed (DME) insulin syr/ndl U100 half gareth 0.5 mL 30 gauge x 5/16 syringe See Rx Instructions .Route Qty: 100 12RF Rx Instructions: Use 4 times daily (DME) WALKER See Rx Instructions .Route .MEDSUPPLY Qty: 1 0RF Rx Instructions: As directed Discharge Date/Time: 02/14/23 00:07
[2023-02-13 20:58] VITALS: BP 128/99; PULSE 83; RESP 18; TEMP 35.9; O2SAT 98; BMI 41.2
[2023-02-13 21:12] LABS: Glucose, Whole Blood 358 mg/dL (60-115)
[2023-02-13 21:27] LABS: MANUAL DIFF FLAG NO
[2023-02-13 21:29] LABS: Basophils Percent Auto 0.2 % (0-2); Eosinophils Absolute Auto 0.1 X10*3/uL (0.0-0.4); Eosinophils Percent Auto 0.7 % (0-4); Hematocrit 38.5 % (42.0-52.0); Hemoglobin 13.1 g/dl (14.0-18.0); Imm Gran Abs Auto 0.02 X10*3/uL (0.00-0.03); Imm Gran Pct Auto 0.2 % (0.0-0.4); Lymphocytes Absolute Auto 1.7 X10*3/uL (1.2-4.9); Lymphocytes Percent Auto 20.4 % (20-40); Mean Corpuscular Hemoglobin 29.9 pg (27.0-33.0); Mean Corpuscular Volume 87.9 fL (80.0-98.0); Mean Platelet Volume 12.8 fL (9.4-12.4); Monocytes Absolute Auto 0.5 X10*3/uL (0.1-1.2); Monocytes Percent Auto 5.9 % (2-11); Neutrophils Absolute Auto 6.1 x10*3/uL (2.0-8.3); Neutrophils Percent Auto 72.6 % (45-73); Platelet Count 178 X10*3/uL (160-400); Red Blood Count 4.38 X10*6/uL (4.60-5.80); Red Cell Distribution Width 12.2 % (11.0-16.0); White Blood Count 8.4 X10*3/uL (4.8-10.8)
[2023-02-13 21:46] LABS: Alanine Aminotransferase 15 U/L (0-40); Albumin Level 3.7 g/dL (3.5-5.0); Alkaline Phosphatase 120 U/L (39-117); Anion Gap 17 (12-20); Aspartate Amino Transferase 19 U/L (5-37); Bilirubin Direct 0.2 mg/dL (0.0-0.5); Bilirubin Total 0.7 mg/dL (0.0-1.0); Blood Urea Nitrogen 14 mg/dL (9-16); Calcium 9.7 mg/dL (8.4-10.2); Carbon Dioxide 25 mmol/L (22-29); Chloride 102 mmol/L (96-108); Creatinine Clr Calc Pharmacy 76.4; Estimated Glomerular Filt Rate > 60; Glucose Random 361 mg/dL (60-115); Lipase 12 U/L (8-78); Magnesium 1.8 mg/dL (1.6-2.6); Potassium 3.8 mmol/L (3.3-5.1); Sodium 140 mmol/L (135-145); Total Protein 7.1 g/dL (6.5-8.0)
[2023-02-21 10:19] LABS: Glucose, Whole Blood 326 mg/dL (60-115)
== END 2023-02-14 00:07 | disposition left against medical advice (07) ==
PROVIDERS: Physician Assistant Medical; Emergency Provider Emergency Medicine; PCP Internal Medicine
DX: R11.0 Nausea (principal); E11.9 Type 2 diabetes mellitus without complications; I10 Essential (primary) hypertension; E78.00 Pure hypercholesterolemia, unspecified; Z87.891 Personal history of nicotine dependence; Z79.82 Long term (current) use of aspirin; Z79.02 Long term (current) use of antithrombotics/antiplatelets; Z79.4 Long term (current) use of insulin; Z79.899 Other long term (current) drug therapy
CPT/HCPCS: 36415; 80048; 80076; 82947; 83690; 83735; 85025; 99281; 99283

== ENCOUNTER 2023-02-14 00:57 | Emergency (ER) | payer OTHER, SELFPAY ==
[2023-02-14 01:07] VITALS: BP 130/88; PULSE 80; O2SAT 97
[2023-02-14 01:12] VITALS: BP 161/63; PULSE 71; RESP 16; TEMP 36.8; O2SAT 100; BMI 34.5
--- NOTE | 2023-02-14 01:23 | ED.GENADULT ---
HPI - General Adult General Chief complaint: Anxiety Stated complaint: abd pain Time Seen by Provider: 02/14/23 01:16 Source: patient Mode of arrival: EMS Limitations: no limitations History of Present Illness HPI narrative: Patient comes to the emergency room via ambulance from home. Patient was seen here earlier today in triage. Patient states that he got tired of waiting to be seen, went home, called the ambulance because he knew he would that coming by ambulance with him in right away. Patient complaining of anxiety. Per EMS, patient's point of care was 400. I asked the patient why he did not take his insulin at home, patient states that he was anxious and then feel like taking it due to anxiety. Of note, patient was seen here 2 days ago, patients hematology and chemistry were at baseline. CT scan did not show any acute abnormality. Related Data Home Medications Medication Instructions Recorded Confirmed insulin lispro 100 unit/mL 15 - 20 unit subcut BID 10/09/22 10/21/22 subcutaneous pen (Humalog KwikPen (U-100) Insulin) polyethylene glycol 3350 17 17 g PO DAILY PRN Constipation 10/09/22 10/21/22 gram/dose oral powder (Miralax) blood-glucose meter (CHIC.TVuch #1 ea 11/27/22 Ultra2 Meter) Previous Rx's Medication Instructions Recorded SHOWER CHAIR #1 ea 10/05/20 SHOWER CHAIR #1 ea 01/10/21 fluticasone propionate 50 1 spray intranasal DAILY #16 grams 03/16/21 mcg/actuation nasal spray,suspension insulin syr/ndl U100 half gareth 0.5 #100 ea 05/14/21 mL 30 gauge x 07/23 aspirin 81 mg tablet,delayed 81 mg PO DAILY #90 tabs 01/14/22 release pen needle, diabetic 31 gauge x #100 ea 03/12/2207/23 (Lite Touch Insulin Pen [place]) lancets 33 gauge (OneTouch Delica #100 ea 03/13/22 Lancets) cyanocobalamin (vitamin B-12) 1,000 mcg PO DAILY 90 days #90 tabs 04/25/22 1,000 mcg tablet dicyclomine 20 mg tablet 20 mg PO QID PRN abdominal pain 07/05/22 #20 tabs ondansetron HCl 4 mg tablet 4 mg PO Q6H PRN nausea and 07/06/22 vomiting #14 tabs atorvastatin 80 mg tablet 80 mg PO DAILY #90 tabs 08/23/22 WALKER #1 ea 10/14/22 omeprazole 40 mg capsule,delayed 40 mg PO DAILY 30 days #30 caps 10/14/22 release metoprolol tartrate 50 mg tablet 50 mg PO BID #180 tabs 10/28/22 paroxetine HCl 40 mg tablet 40 mg PO DAILY #90 tabs 10/31/22 cholecalciferol (vitamin D3) 50 50 mcg PO DAILY 90 days #90 caps 11/04/22 mcg (2,000 unit) capsule albuterol sulfate 90 mcg/actuation 2 puff PO Q4-6H PRN for wheezing 11/12/22 aerosol inhaler #8.5 grams metoclopramide HCl 10 mg tablet 10 mg PO AC PRN nausea and 11/12/22 (Reglan) vomiting #20 tabs insulin glargine 100 unit/mL (3 80 unit (0.8 mL) subcut BID 30 11/22/22 mL) subcutaneous pen (Lanus days #48 mL Solostar U-100 Insulin) blood sugar diagnostic 1 strip miscellaneous TID #100 11/27/22 strips oxybutynin chloride 10 mg 10 mg PO DAILY #90 tabs 12/20/22 tablet,extended release 24 hr blood sugar diagnostic (OneTouch #100 ea 01/13/23 Ultra Test strips) lisinopril 10 mg tablet 10 mg PO DAILY #90 tabs 01/13/23 gabapentin 400 mg capsule 800 mg (2 x 400 mg) PO BID #120 02/12/23 [facility] Allergies Allergy/AdvReac Type Severity Reaction Status Date / Time hydromorphone [Dilaudid] AdvReac Unknown confusion Verified 02/14/23 01:16 From DILAUDID AdvReac Severe CONFUSION/H Uncoded 02/14/23 01:16 ALLUCIATION S From PERCOCET AdvReac Intermediate AGITATION Uncoded 02/14/23 01:16 Review of Systems Review of Systems: Constitutional : No Weight loss, No Fever, No Chills, No Night Sweats, No Fatigue, No Malaise ENT/Mouth : No Hearing loss, No Ear Pain, No Nasal Congestion, No Sinus Pain, No Hoarseness, No sore throat, No Rhinorrhea, No Swallowing Difficulty Eyes: No Eye Pain, No Swelling, No Redness, No Foreign Body, No Discharge, No Vision Changes Cardiovascular : No Chest Pain, No SOB, No Dyspnea on Exertion, No Orthopnea, No Edema, No Palpitations Respiratory : No Cough, No Sputum, No Wheezing, No Smoke Exposure, No Dyspnea Gastrointestinal : No Nausea, No Vomiting, No Diarrhea, No Constipation, No abdominal Pain, No Hematochezia, No Melena Genitourinary : no irregular bleeding, No Dysuria, No Urinary Frequency, No Hematuria, No Urinary Incontinence, No Urgency, No Flank Pain, No Urinary Flow Changes, No Hesitancy Musculoskeletal : No joint pain, No Myalgias, No Joint Swelling Skin : No Skin Lesions, No rash Neuro : No Weakness, No Numbness, No Paresthesias, No Loss of Consciousness, No Dizziness, No Headache Psych : Complaining of anxiety, No Depression, No SI/HI/AH/VH, No Social Issues, Heme/Lymph: No Bruising, No Bleeding,No Lymphadenopathy Endocrine : No Polyuria, No Polydipsia, No Temperature Intolerance PMFSH Past Medical History Medical History Gastritis and duodenitis Vitamin B12 deficiency Hyperkalemia Intertrigo Major depressive disorder, recurrent Benign prostatic hyperplasia with urinary frequency Constipation Obstructive sleep apnea Vitamin D deficiency Diabetic polyneuropathy Diabetes mellitus Obesity (BMI 30-39.9) Benign essential hypertension Pure hypercholesterolemia Coronary artery disease Surgical History Hx of cataract extraction (~2011) History of quadruple bypass (~2005) Hx of cystoscopy History of prostate surgery (~12/04/10) Hx of cholecystectomy (~2007) Family History Family History Father Lung cancer Mother Diabetes Hypertension Stomach cancer Social History Social History Household Members: None Housing: Apartment Do you presently have visiting nurse or other home services: No Alcohol intake: never Patient Tobacco Use Status: Former Tobacco user Quit Date: 17 years ago Smoked in Last 30 Days: No e-Cigarette/Vaping Use: Never Used Second Hand Smoke Exposure: No Use of substances other than those prescribed or required for medical reasons: No Advance Directives: No Advance Directives Information Provided: No Advance Directives Date on File: 05/09/20 service: No Current occupational status: disabled Cognitive needs: Yes (cane) Hearing needs: No Vision needs: Yes Physical Exam ED Vital Signs: Vital Signs - 24 hr 02/14/23 01:12 Temperature 98.3 F Pulse Rate 71 Respiratory Rate 16 Blood Pressure 161/63 H Pulse Oximetry 100 Oxygen Delivery Method Room Air BMI result Body Mass Index 34.5 Const Other: Appearance: Alert. Oriented X3. No acute distress. Eyes: Pupils equal, round and reactive to light. ENT: Pharynx normal. Neck: Normal inspection. Neck supple. No lymph nodes noted. No crepitus CVS: Normal heart rate and rhythm. Pulses normal. Normal S1 and S2 Respiratory: No respiratory distress. Breath sounds normal. No Wheezing. No rales Abdomen: Soft and nontender. No rigidity. No distention. Skin: Skin warm and dry. Normal skin color. Normal skin turgor. Extremities: No lower extremity edema. No Lacerations. No Rash Neuro: Oriented X 3. No motor deficit. No sensory deficit. Moving all extremities. No slurred speech. CN 2 through 12 grossly intact Psych: calm, cooperative, anxious Medications Administered Discontinued Medications Generic Name Dose Route Start Last Admin Trade Name Freq PRN Reason Stop Dose Admin Sodium Chloride 1,000 mls @ 999 mls/hr 02/14/23 01:30 02/14/23 02:18 Ns IVCONT 02/14/23 02:30 999 mls/hr .Q1H1M ONE Administration Insulin Human Regular 10 unit 02/14/23 01:30 02/14/23 02:23 Insulin Regular, Human 100 Unit/Ml 3 Ml Vial IVPUSH 02/14/23 01:31 10 unit ONCE ONE Administration Lorazepam 0.5 mg 02/14/23 01:31 02/14/23 02:23 Lorazepam 0.5 Mg Tablet PO 02/14/23 01:32 0.5 mg ONCE ONE Administration Medical Decision Making Medical Decision Making [facility] Narrative: -my interpretation of labs: patient's labs from 1st visit today are unchanged from previous labs, they are at baseline including hematology and chemistry -we will obtain a point of care, correct glucose if needed and then patient will be discharged home. -patient feeling less anxious, point of care glucose 251, patient asymptomatic. Patient ready for discharge -patient has medications at home including insulin. Patient just does not want to take it because he was anxious. At this time, we will not change any of his medication doses Differential Diagnosis Differential Diagnoses: The differential diagnosis associated with the presentation includes (Anxiety, hyperglycemia) Lab Data MDM Lab Attestation statement: I reviewed the patient's lab results. Labs: Lab Results 02/14/23 02/14/23 Range/Units 01:28 03:09 POC Glucose 402 H* 251 H (60-115) mg/dL Critical Care Time Critical Care Time Critical Care Time: Yes Total Critical Care Time: 45 Attestation: I have personally provided critical care time. Time includes review of lab data, radiology results, discussion with consultants, and monitoring for potential decompensation. Intervention performed as documented. Discharge Plan Discharge Clinical Impression: Anxiety, Acute hyperglycemia Patient Disposition: Home, Self-Care Instructions: Diabetic Hyperglycemia (ED), Anxiety (ED) Additional Instructions: Please follow-up with your primary care physician tomorrow. If you have any worsening or new symptoms, please return to the emergency room or call 911 Prescriptions: No Action fluticasone propionate 50 mcg/actuation spray,suspension 1 spray intranasal DAILY Qty: 16 2RF aspirin 81 mg tablet,delayed release (DR/EC) 81 mg PO DAILY Qty: 90 3RF (DME) pen needle, diabetic [Lite Touch Insulin Pen [place]] 31 gauge x 5/16 needle See Rx Instructions .Route Qty: 100 12RF Rx Instructions: Use 3 times daily (DME) lancets [OneTouch Delica Lancets] 33 gauge misc See Rx Instructions .Route Qty: 100 12RF Rx Instructions: As directed 3 times a day cyanocobalamin (vitamin B-12) 1,000 mcg tablet 1,000 mcg PO DAILY 90 Days Qty: 90 3RF atorvastatin 80 mg tablet 80 mg PO DAILY Qty: 90 1RF omeprazole 40 mg capsule,delayed release(DR/EC) 40 mg PO DAILY 30 Days Qty: 30 3RF metoprolol tartrate 50 mg tablet 50 mg PO BID Qty: 180 1RF paroxetine HCl 40 mg tablet 40 mg PO DAILY Qty: 90 0RF cholecalciferol (vitamin D3) 50 mcg (2,000 unit) capsule 50 mcg PO DAILY 90 Days Qty: 90 3RF albuterol sulfate 90 mcg/actuation HFA aerosol inhaler 2 puff PO Q4-6H PRN (Reason: for wheezing) Qty: 8.5 2RF metoclopramide HCl [Reglan] 10 mg tablet 10 mg PO AC PRN (Reason: nausea and vomiting) Qty: 20 0RF insulin glargine [Lantus Solostar U-100 Insulin] 100 unit/mL (3 mL) insulin pen 80 unit subcut BID 30 Days Qty: 48 3RF OneTouch Ultra Blue Test Strip Strip 1 strip miscellaneous TID Qty: 100 3RF (DME) blood-glucose meter [OneTouch Ultra2 Meter] Misc See Rx Instructions .ROUTE TID Qty: 1 Rx Instructions: test 3 times per day oxybutynin chloride 10 mg tablet extended release 24hr 10 mg PO DAILY Qty: 90 1RF (DME) OneTouch Ultra Test Strip See Rx Instructions .Route Qty: 100 8RF Rx Instructions: test 3 times per day lisinopril 10 mg tablet 10 mg PO DAILY Qty: 90 0RF gabapentin 400 mg capsule 800 mg PO BID Qty: 120 3RF Rx Instructions: take 2 capsules orally twice a day dicyclomine 20 mg tablet 20 mg PO QID PRN (Reason: abdominal pain) Qty: 20 0RF ondansetron HCl 4 mg tablet 4 mg PO Q6H PRN (Reason: nausea and vomiting) Qty: 14 0RF polyethylene glycol 3350 [Miralax] 17 gram/dose powder 17 g PO DAILY PRN (Reason: Constipation) insulin lispro [Humalog KwikPen Insulin] 100 unit/mL insulin pen 15 - 20 unit subcut BID ([facility] [place]) SHOWER CHAIR See Rx Instructions .Route .MEDSUPPLY Qty: 1 0RF Rx Instructions: As directed ([facility] [place]) SHOWER CHAIR See Rx Instructions .Route .MEDSUPPLY Qty: 1 0RF Rx Instructions: As directed ([facility] [place]) insulin syr/ndl U100 half gareth 0.5 mL 30 gauge x 5/16 syringe See Rx Instructions .Route Qty: 100 12RF Rx Instructions: Use 4 times daily ([facility] [place]) WALKER See Rx Instructions .Route .MEDSUPPLY Qty: 1 0RF Rx Instructions: As directed
[2023-02-14 01:33] LABS: Glucose, Whole Blood 402 mg/dL (60-115)
[2023-02-14] MEDS: 0.9 % Sodium Chloride 1,000 ML 999 ML IVCONT (02:18)
[2023-02-14] MEDS: LORazepam 0.5 MG TABLET PO (02:23)
[2023-02-14] MEDS: Insulin Regular, Human 100 UNIT/ML 3 ML VIAL 10 UNIT IVPUSH (02:23)
[2023-02-14 03:15] LABS: Glucose, Whole Blood 251 mg/dL (60-115)
[2023-02-14 03:40] VITALS: BP 156/78; PULSE 82; RESP 20; O2SAT 98
== END 2023-02-14 03:45 | disposition home or self-care (01) ==
PROVIDERS: Emergency Provider Emergency Medicine; PCP Internal Medicine
DX: F41.1 Generalized anxiety disorder (principal); R07.89 Other chest pain; E11.65 Type 2 diabetes mellitus with hyperglycemia; Z79.4 Long term (current) use of insulin; Z79.899 Other long term (current) drug therapy; Z87.891 Personal history of nicotine dependence
CPT/HCPCS: 82947; 96374; 99284

== ENCOUNTER 2023-03-06 18:55 | Emergency (ER) | payer OTHER, SELFPAY ==
--- NOTE | ~2023-03-06 | XR_ITS ---
EXAMINATION: XR CHEST CLINICAL INFORMATION: Generalized weakness COMPARISON: Chest x-ray October 21, 2022 TECHNIQUE: 2 views of the chest were obtained. FINDINGS: Status post median sternotomy. Heart size is normal. Cardiac mediastinal contours are normal. No pulmonary vascular congestion. Lungs normally aerated. No pleural effusion and no pneumothorax. Surgical clips right upper quadrant of abdomen. XR/XR chest 2V IMPRESSION: No acute abnormality of the chest.
[2023-03-06 20:20] VITALS: BP 151/84; PULSE 73; RESP 17; TEMP 36.2; O2SAT 96; BMI 35.5
--- NOTE | 2023-03-06 20:23 | ED.NAVMDI ---
HPI - Nausea/Vomiting/Diarrhea General Chief complaint: General Medical Stated complaint: vomiting Time Seen by Provider: 03/06/23 22:00 Source: patient Mode of arrival: ambulatory Limitations: no limitations History of Present Illness HPI Narrative: Patient comes to the emergency room complaining of not feeling well, nonspecific symptoms, patient states that sometimes he feels weak, sometimes confused. Patient denies any nausea vomiting diarrhea. Patient states in the last few days he has not had any appetite and he has not been drinking fluids. Patient states that he has been using his insulin as prescribed. Related Data Home Medications Medication Instructions Recorded Confirmed insulin lispro 100 unit/mL 15 - 20 unit subcut BID 10/09/22 10/21/22 subcutaneous pen (Humalog KwikPen (U-100) Insulin) polyethylene glycol 3350 17 17 g PO DAILY PRN Constipation 10/09/22 10/21/22 gram/dose oral powder (Miralax) blood-glucose meter (OneTouch #1 ea 11/27/22 Ultra2 Meter) Previous Rx's Medication Instructions Recorded SHOWER CHAIR #1 ea 10/05/20 SHOWER CHAIR #1 ea 01/10/21 fluticasone propionate 50 1 spray intranasal DAILY #16 grams 03/16/21 mcg/actuation nasal spray,suspension insulin syr/ndl U100 half gareth 0.5 #100 ea 05/14/21 mL 30 gauge x 5/16 pen needle, diabetic 31 gauge x #100 ea 03/12/22 5/16 (Lite Touch Insulin Pen [place]) lancets 33 gauge (OneTouch Delica #100 ea 03/13/22 Lancets) cyanocobalamin (vitamin B-12) 1,000 mcg PO DAILY 90 days #90 tabs 04/25/22 1,000 mcg tablet dicyclomine 20 mg tablet 20 mg PO QID PRN abdominal pain 07/05/22 #20 tabs ondansetron HCl 4 mg tablet 4 mg PO Q6H PRN nausea and 07/06/22 vomiting #14 tabs WALKER #1 ea 10/14/22 omeprazole 40 mg capsule,delayed 40 mg PO DAILY 30 days #30 caps 10/14/22 release metoprolol tartrate 50 mg tablet 50 mg PO BID #180 tabs 10/28/22 paroxetine HCl 40 mg tablet 40 mg PO DAILY #90 tabs 10/31/22 cholecalciferol (vitamin D3) 50 50 mcg PO DAILY 90 days #90 caps 11/04/22 mcg (2,000 unit) capsule albuterol sulfate 90 mcg/actuation 2 puff PO Q4-6H PRN for wheezing 11/12/22 aerosol inhaler #8.5 grams metoclopramide HCl 10 mg tablet 10 mg PO AC PRN nausea and 11/12/22 (Reglan) vomiting #20 tabs insulin glargine 100 unit/mL (3 80 unit (0.8 mL) subcut BID 30 11/22/22 mL) subcutaneous pen (Lantus days #48 mL Solostar U-100 Insulin) blood sugar diagnostic 1 strip miscellaneous TID #100 11/27/22 strips oxybutynin chloride 10 mg 10 mg PO DAILY #90 tabs 12/20/22 tablet,extended release 24 hr blood sugar diagnostic (OneTouch #100 ea 01/13/23 Ultra Test strips) lisinopril 10 mg tablet 10 mg PO DAILY #90 tabs 01/13/23 gabapentin 400 mg capsule 800 mg (2 x 400 mg) PO BID #120 02/12/23 caps aspirin 81 mg tablet,delayed 81 mg PO DAILY #90 tabs 03/04/23 release atorvastatin 80 mg tablet 80 mg PO DAILY #90 tabs 03/04/23 Allergies Allergy/AdvReac Type Severity Reaction Status Date / Time hydromorphone [Dilaudid] AdvReac Unknown confusion Verified 02/14/23 01:16 From DILAUDID AdvReac Severe CONFUSION/H Uncoded 02/14/23 01:16 ALLUCIATION S From PERCOCET AdvReac Intermediate AGITATION Uncoded 02/14/23 01:16 Review of Systems Review of Systems: Constitutional : No Weight loss, No Fever, No Chills, No Night Sweats, complaining of fatigue and generalized malaise ENT/Mouth : No Hearing loss, No Ear Pain, No Nasal Congestion, No Sinus Pain, No Hoarseness, No sore throat, No Rhinorrhea, No Swallowing Difficulty Eyes: No Eye Pain, No Swelling, No Redness, No Foreign Body, No Discharge, No Vision Changes Cardiovascular : No Chest Pain, No SOB, No Dyspnea on Exertion, No Orthopnea, No Edema, No Palpitations Respiratory : No Cough, No Sputum, No Wheezing, No Smoke Exposure, No Dyspnea Gastrointestinal : No Nausea, No Vomiting, No Diarrhea, No Constipation, No abdominal Pain, No Hematochezia, No Melena Genitourinary : no irregular bleeding, No Dysuria, No Urinary Frequency, No Hematuria, No Urinary Incontinence, No Urgency, No Flank Pain, No Urinary Flow Changes, No Hesitancy Musculoskeletal : No joint pain, No Myalgias, No Joint Swelling Skin : No Skin Lesions, No rash Neuro : No Weakness, No Numbness, No Paresthesias, No Loss of Consciousness, No Dizziness, No Headache Psych : No Anxiety/Panic, No Depression, No SI/HI/AH/VH, No Social Issues, Heme/Lymph: No Bruising, No Bleeding,No Lymphadenopathy Endocrine : Complaining of not being hungry, feeling thirsty but not drinking fluids. High blood sugar [facility] Past Medical History Medical History Gastritis and duodenitis Vitamin B12 deficiency Hyperkalemia Intertrigo Major depressive disorder, recurrent Benign prostatic hyperplasia with urinary frequency Constipation Obstructive sleep apnea Vitamin D deficiency Diabetic polyneuropathy Diabetes mellitus Obesity (BMI 30-39.9) Benign essential hypertension Pure hypercholesterolemia Coronary artery disease Surgical History Hx of cataract extraction (~2011) History of quadruple bypass (~2005) Hx of cystoscopy History of prostate surgery (~12/04/10) Hx of cholecystectomy (~2007) Family History Family History Father Lung cancer Mother Diabetes Hypertension Stomach cancer Social History Social History Household Members: None Housing: Apartment Do you presently have visiting nurse or other home services: No Alcohol intake: never Patient Tobacco Use Status: Former Tobacco user Quit Date: 17 years ago e-Cigarette/Vaping Use: Never Used Second Hand Smoke Exposure: No Advance Directives: No Advance Directives Information Provided: No Advance Directives Date on File: 05/09/20 service: No Current occupational status: disabled Cognitive needs: Yes (cane) Hearing needs: No Vision needs: Yes Physical Exam Vital Signs: Vital Signs: Last Vital Signs Temp 97.9 F 03/06/23 22:32 Pulse 70 03/06/23 22:32 Resp 14 03/06/23 22:32 BP 170/73 H 03/06/23 22:32 Pulse Ox 98 03/06/23 22:32 O2 Del Method Room Air 03/06/23 22:32 BMI result Body Mass Index 35.5 Const: Other: Appearance: Alert. Oriented X3. No acute distress. Eyes: Pupils equal, round and reactive to light. ENT: Pharynx normal. Neck: Normal inspection. Neck supple. No lymph nodes noted. No crepitus CVS: Normal heart rate and rhythm. Pulses normal. Normal S1 and S2 Respiratory: No respiratory distress. Breath sounds normal. No Wheezing. No rales Abdomen: Soft and nontender. No rigidity. No distention. Skin: Skin warm and dry. Normal skin color. Normal skin turgor. Extremities: No lower extremity edema. No Lacerations. No Rash Neuro: Oriented X 3. No motor deficit. No sensory deficit. Moving all extremities. No slurred speech. CN 2 through 12 grossly intact Psych: calm, cooperative, normal affect Course Course Course Narrative: RME:?67 yo male w/ hx of gastritis, duodenitis, JAIME, major depression, diabetes, HTN, HLD, CAD here w/ generalized weakness and N/V x3 days. Endorses 1 episode of vomiting. endorses associated lethargy, somewhat confused. States sugars at home have been high, around 400-500. Endorses compliance with insulin at home. Denies recent falls. POC in triage 418. Denies recent steroids. labs, UA, CXR Full HPI, ROS and PE to be performed by the primary ED provider. Medications Administered Discontinued Medications Generic Name Dose Route Start Last Admin Trade Name Freq PRN Reason Stop Dose Admin Sodium Chloride 1,000 mls @ 999 mls/hr 03/06/23 22:11 03/06/23 22:54 Ns IVCONT 03/06/23 23:11 999 mls/hr .Q1H1M ONE Administration Insulin Human Regular 10 unit 03/06/23 22:11 03/06/23 22:54 Insulin Regular, Human 100 Unit/Ml 3 Ml Vial IVPUSH 03/06/23 22:12 10 unit ONCE ONE Administration Ondansetron HCl 4 mg 03/06/23 22:11 03/06/23 22:56 Ondansetron Hcl 4 Mg/2 Ml Vial IVPUSH 03/06/23 22:12 4 mg ONCE ONE Administration Medical Decision Making Medical Decision Making [facility] Narrative: -my interpretation of labs: White blood cell count 8.5 , Venous blood gases show normal pCO2, normal pH, chemistry shows elevated glucose of 444, anion gap is closed, patient to be dehydrated, beta hydroxybutyrate elevated, 0.96. -patient received 10 units of insulin, IV fluids 1 L, patient states that he feels much better, patient states that he no longer wants to wait for repeat labs, does not want to wait for serology to return., patient declined giving a urine test. -patient is alert and oriented x3, states he feels better, would like to be discharged home -I discussed with the patient that the workup is not complete, patient is still adamant that he wants to go home. Patient is willing to wait until his fluids are completed. Differential Diagnosis Differential Diagnoses: The differential diagnosis associated with the presentation includes (DKA, diabetes, UTI) Admission/Observation Consideration of admission/observation: Escalation of care including admission/observation considered (Given patient's initial symptoms and lab work, patient was considered) Lab Data [facility] Lab Attestation statement: I reviewed the patient's lab results. 03/06/23 22:45 03/06/23 22:45 Labs: Lab Results 03/06/23 03/06/23 03/06/23 Range/Units 20:29 22:45 22:47 WBC 8.5 (4.8-10.8) X10*3/uL RBC 4.23 L (4.60-5.80) X10*6/uL Hgb 12.9 L (14.0-18.0) g/dl Hct 36.9 L (42.0-52.0) % MCV 87.2 (80.0-98.0) fL MCH 30.5 (27.0-33.0) pg MCHC 35.0 (31.0-36.0) g/dl RDW 12.4 (11.0-16.0) % Plt Count 172 (160-400) X10*3/uL MPV 12.9 H (9.4-12.4) fL Immature Gran % (Auto) 0.2 (0.0-0.4) % Neut % (Auto) 68.2 (45-73) % Lymph % (Auto) 24.0 (20-40) % [place] % (Auto) 7.2 (2-11) % Eos % (Auto) 0.2 (0-4) % Baso % (Auto) 0.2 (0-2) % Lymph # (Auto) 2.0 (1.2-4.9) X10*3/uL [place] # (Auto) 0.6 (0.1-1.2) X10*3/uL Eos # (Auto) 0.0 (0.0-0.4) X10*3/uL Baso # (Auto) 0.0 (0.0-0.2) X10*3/uL Abs Immat Gran (auto) 0.02 (0.00-0.03) X10*3/uL Absolute Neuts (auto) 5.8 (2.0-8.3) x10*3/uL Absolute Nucleated RBC 0.000 (0.0-0.012) X10*3/uL Nucleated RBC % (auto) 0.0 (0.0-0.2) /100WBC VBG pH 7.41 (7.32-7.43) VBG pCO2 50 mmHg VBG pO2 38 mmHg VBG HCO3 32 H (22-26) mmol/L VBG O2 Saturation 57.0 % VBG Base Excess 6.2 mmol/L Sodium 135 (135-145) mmol/L Potassium 3.7 (3.3-5.1) mmol/L Chloride 95 L (96-108) mmol/L Carbon Dioxide 29 (22-29) mmol/L Anion Gap 15 (12-20) BUN 17 H (9-16) mg/dL Creatinine 1.11 (0.5-1.4) mg/dL Estim Creat Clear Calc 64.8 Estimated GFR > 60 POC Glucose 418 H* (60-115) mg/dL Random Glucose 444 H* (60-115) mg/dL Calcium 9.9 (8.4-10.2) mg/dL Magnesium 1.8 (1.6-2.6) mg/dL Total Bilirubin 0.9 (0.0-1.0) mg/dL AST 16 (5-37) U/L ALT 14 (0-40) U/L Alkaline Phosphatase 123 H (39-117) U/L Ammonia 14 (13-55) umol/L Total Protein 7.8 (6.5-8.0) g/dL Albumin 4.2 (3.5-5.0) g/dL Lipase 9 (8-78) U/L Beta-Hydroxybutyrate 0.96 H (0.02-0.27) mmol/L Critical Care Time Critical Care Time Critical Care Time: Yes Total Critical Care Time: 60 Attestation: I have personally provided critical care time. Time includes review of lab data, radiology results, discussion with consultants, and monitoring for potential decompensation. Intervention performed as documented. Discharge Plan Discharge Clinical Impression: Acute hyperglycemia, Malaise Patient Disposition: Left Against Medical Advice Instructions: Diabetic Hyperglycemia (ED) Additional Instructions: Please follow-up with your primary care physician tomorrow. If you have any worsening or new symptoms, please return to the emergency room or call 911 Prescriptions: No Action fluticasone propionate 50 mcg/actuation spray,suspension 1 spray intranasal DAILY Qty: 16 2RF (DME) pen needle, diabetic [Lite Touch Insulin Pen [place]] 31 gauge x 5/16 needle See Rx Instructions .Route Qty: 100 12RF Rx Instructions: Use 3 times daily (DME) lancets [OneTouch Delica Lancets] 33 gauge misc See Rx Instructions .Route Qty: 100 12RF Rx Instructions: As directed 3 times a day cyanocobalamin (vitamin B-12) 1,000 mcg tablet 1,000 mcg PO DAILY 90 Days Qty: 90 3RF omeprazole 40 mg capsule,delayed release(DR/EC) 40 mg PO DAILY 30 Days Qty: 30 3RF metoprolol tartrate 50 mg tablet 50 mg PO BID Qty: 180 1RF paroxetine HCl 40 mg tablet 40 mg PO DAILY Qty: 90 0RF cholecalciferol (vitamin D3) 50 mcg (2,000 unit) capsule 50 mcg PO DAILY 90 Days Qty: 90 3RF albuterol sulfate 90 mcg/actuation HFA aerosol inhaler 2 puff PO Q4-6H PRN (Reason: for wheezing) Qty: 8.5 2RF metoclopramide HCl [Reglan] 10 mg tablet 10 mg PO AC PRN (Reason: nausea and vomiting) Qty: 20 0RF insulin glargine [Lantus Solostar U-100 Insulin] 100 unit/mL (3 mL) insulin pen 80 unit subcut BID 30 Days Qty: 48 3RF OneTouch Ultra Blue Test Strip Strip 1 strip miscellaneous TID Qty: 100 3RF (DME) blood-glucose meter [OneTouch Ultra2 Meter] [facility] See Rx Instructions .ROUTE TID Qty: 1 Rx Instructions: test 3 times per day oxybutynin chloride 10 mg tablet extended release 24hr 10 mg PO DAILY Qty: 90 1RF (DME) OneTouch Ultra Test Strip See Rx Instructions .Route Qty: 100 8RF Rx Instructions: test 3 times per day lisinopril 10 mg tablet 10 mg PO DAILY Qty: 90 0RF gabapentin 400 mg capsule 800 mg PO BID Qty: 120 3RF Rx Instructions: take 2 capsules orally twice a day atorvastatin 80 mg tablet 80 mg PO DAILY Qty: 90 0RF aspirin 81 mg tablet,delayed release (DR/EC) 81 mg PO DAILY Qty: 90 0RF dicyclomine 20 mg tablet 20 mg PO QID PRN (Reason: abdominal pain) Qty: 20 0RF ondansetron HCl 4 mg tablet 4 mg PO Q6H PRN (Reason: nausea and vomiting) Qty: 14 0RF polyethylene glycol 3350 [Miralax] 17 gram/dose powder 17 g PO DAILY PRN (Reason: Constipation) insulin lispro [Humalog KwikPen Insulin] 100 unit/mL insulin pen 15 - 20 unit subcut BID (DME) SHOWER CHAIR See Rx Instructions .Route .MEDSUPPLY Qty: 1 0RF Rx Instructions: As directed ([facility] [place]) SHOWER CHAIR See Rx Instructions .Route .MEDSUPPLY Qty: 1 0RF Rx Instructions: As directed ([facility] [place]) insulin syr/ndl U100 half gareth 0.5 mL 30 gauge x 5/16 syringe See Rx Instructions .Route Qty: 100 12RF Rx Instructions: Use 4 times daily ([facility] [place]) WALKER See Rx Instructions .Route .MEDSUPPLY Qty: 1 0RF Rx Instructions: As directed
--- NOTE | 2023-03-06 20:24 | ECG_ITS ---
Test Reason : WEAKNESS Blood Pressure : / mmHG Vent. Rate : 075 BPM Atrial Rate : 075 BPM P-R Int : 180 ms QRS Dur : 098 ms QT Int : 406 ms P-R-T Axes : 000 -24 100 degrees QTc Int : 453 ms Artifact in tracing Normal sinus rhythm Left ventricular hypertrophy with repolarization abnormality ( R in aVL ) Abnormal ECG When compared with ECG of 13-NOV-2022 12:13, MS interval has decreased Referred By: Renea Spivey Electronically Signed By:JAIME CASTRO
[2023-03-06 20:33] LABS: Glucose, Whole Blood 418 mg/dL (60-115)
[2023-03-06 22:32] VITALS: BP 170/73; PULSE 70; RESP 14; TEMP 36.6; O2SAT 98
[2023-03-06 22:50] LABS: MANUAL DIFF FLAG NO
[2023-03-06 22:52] LABS: Basophils Percent Auto 0.2 % (0-2); Eosinophils Percent Auto 0.2 % (0-4); Hematocrit 36.9 % (42.0-52.0); Hemoglobin 12.9 g/dl (14.0-18.0); Imm Gran Abs Auto 0.02 X10*3/uL (0.00-0.03); Imm Gran Pct Auto 0.2 % (0.0-0.4); Mean Corpuscular Hemoglobin 30.5 pg (27.0-33.0); Mean Corpuscular Volume 87.2 fL (80.0-98.0); Mean Platelet Volume 12.9 fL (9.4-12.4); Monocytes Absolute Auto 0.6 X10*3/uL (0.1-1.2); Monocytes Percent Auto 7.2 % (2-11); Neutrophils Absolute Auto 5.8 x10*3/uL (2.0-8.3); Neutrophils Percent Auto 68.2 % (45-73); Platelet Count 172 X10*3/uL (160-400); Red Blood Count 4.23 X10*6/uL (4.60-5.80); Red Cell Distribution Width 12.4 % (11.0-16.0); White Blood Count 8.5 X10*3/uL (4.8-10.8)
[2023-03-06 22:54] LABS: VBG Base Excess 6.2 mmol/L; VBG HCO3 32 mmol/L (22-26); VBG pCO2 50 mmHg; VBG pH 7.41 (7.32-7.43); VBG pO2 38 mmHg
[2023-03-06] MEDS: Insulin Regular, Human 100 UNIT/ML 3 ML VIAL 10 UNIT IVPUSH (22:54)
[2023-03-06] MEDS: 0.9 % Sodium Chloride 1,000 ML 999 ML IVCONT (22:54)
[2023-03-06] MEDS: ondansetron HCL 4 MG/2 ML VIAL IVPUSH (22:56)
--- NOTE | 2023-03-06 22:56 | PC.NURSE ---
Multiple RN's attempted IV. GREY Fuentes placed a 22g IV in the right AC. Labs drawn and sent. Pt medicated per MAY.
[2023-03-06 22:58] LABS: Venous Blood Gas Refer to POC result
[2023-03-06 23:04] LABS: Beta-Hydroxybutyrate 0.96 mmol/L (0.02-0.27)
[2023-03-06 23:07] LABS: Alanine Aminotransferase 14 U/L (0-40); Albumin Level 4.2 g/dL (3.5-5.0); Alkaline Phosphatase 123 U/L (39-117); Ammonia 14 umol/L (13-55); Anion Gap 15 (12-20); Aspartate Amino Transferase 16 U/L (5-37); Bilirubin Total 0.9 mg/dL (0.0-1.0); Blood Urea Nitrogen 17 mg/dL (9-16); Calcium 9.9 mg/dL (8.4-10.2); Carbon Dioxide 29 mmol/L (22-29); Chloride 95 mmol/L (96-108); Creatinine Clr Calc Pharmacy 64.8; Estimated Glomerular Filt Rate > 60; Glucose Random 444 mg/dL (60-115); Lipase 9 U/L (8-78); Magnesium 1.8 mg/dL (1.6-2.6); Potassium 3.7 mmol/L (3.3-5.1); Sodium 135 mmol/L (135-145); Total Protein 7.8 g/dL (6.5-8.0)
[2023-03-06 23:32] LABS: Glucose, Whole Blood 367 mg/dL (60-115)
== END 2023-03-06 23:59 | disposition left against medical advice (07) ==
PROVIDERS: Physician Assistant Medical; Emergency Provider Emergency Medicine; PCP Internal Medicine
DX: R11.2 Nausea with vomiting, unspecified (principal); R94.31 Abnormal electrocardiogram [ECG] [EKG]; E11.65 Type 2 diabetes mellitus with hyperglycemia; I25.10 Atherosclerotic heart disease of native coronary artery without angina pectoris; Z79.4 Long term (current) use of insulin; Z79.899 Other long term (current) drug therapy
CPT/HCPCS: 36415; 71046; 80053; 82010; 82140; 82803; 82947; 83690; 83735; 85025; 93005; 96361; 96374; 96375; 99284; J2405

== ENCOUNTER → 2023-03-06 20:24 | Outpatient (BNV) | payer OTHER, SELFPAY | PROVIDERS: Emergency Provider Emergency Medicine; PCP Internal Medicine; Visit Provider Internal Medicine | DX: R94.31 Abnormal electrocardiogram [ECG] [EKG] (principal) | CPT/HCPCS: 93010 ==

== ENCOUNTER 2023-03-09 19:49 | Emergency (ER) | payer OTHER, SELFPAY ==
--- NOTE | 2023-03-09 19:57 | ED_ITS ---
HPI - General Adult General Stated complaint: anxiety Related Data Home Medications Medication Instructions Recorded Confirmed insulin lispro 100 unit/mL 15 - 20 unit subcut BID 10/09/22 10/21/22 subcutaneous pen (Humalog KwikPen (U-100) Insulin) polyethylene glycol 3350 17 17 g PO DAILY PRN Constipation 10/09/22 10/21/22 gram/dose oral powder (Miralax) blood-glucose meter (ProxeonTouch #1 ea 11/27/22 Ultra2 Meter) Previous Rx's Medication Instructions Recorded SHOWER CHAIR #1 ea 10/05/20 SHOWER CHAIR #1 ea 01/10/21 fluticasone propionate 50 1 spray intranasal DAILY #16 grams 03/16/21 mcg/actuation nasal spray,suspension insulin syr/ndl U100 half gareth 0.5 #100 ea 05/14/21 mL 30 gauge x 5/16 pen needle, diabetic 31 gauge x #100 ea 03/12/22 5/16 (Lite Touch Insulin Pen [place]) lancets 33 gauge (OneTouch Delica #100 ea 03/13/22 Lancets) cyanocobalamin (vitamin B-12) 1,000 mcg PO DAILY 90 days #90 tabs 04/25/22 1,000 mcg tablet dicyclomine 20 mg tablet 20 mg PO QID PRN abdominal pain 07/05/22 #20 tabs ondansetron HCl 4 mg tablet 4 mg PO Q6H PRN nausea and 07/06/22 vomiting #14 tabs WALKER #1 ea 10/14/22 omeprazole 40 mg capsule,delayed 40 mg PO DAILY 30 days #30 caps 10/14/22 release metoprolol tartrate 50 mg tablet 50 mg PO BID #180 tabs 10/28/22 paroxetine HCl 40 mg tablet 40 mg PO DAILY #90 tabs 10/31/22 cholecalciferol (vitamin D3) 50 50 mcg PO DAILY 90 days #90 caps 11/04/22 mcg (2,000 unit) capsule albuterol sulfate 90 mcg/actuation 2 puff PO Q4-6H PRN for wheezing 11/12/22 aerosol inhaler #8.5 grams metoclopramide HCl 10 mg tablet 10 mg PO AC PRN nausea and 11/12/22 (Reglan) vomiting #20 tabs insulin glargine 100 unit/mL (3 80 unit (0.8 mL) subcut BID 30 11/22/22 mL) subcutaneous pen (Lantus days #48 mL Solostar U-100 Insulin) blood sugar diagnostic 1 strip miscellaneous TID #100 11/27/22 strips oxybutynin chloride 10 mg 10 mg PO DAILY #90 tabs 12/20/22 tablet,extended release 24 hr blood sugar diagnostic (OneTouch #100 ea 01/13/23 Ultra Test strips) lisinopril 10 mg tablet 10 mg PO DAILY #90 tabs 01/13/23 gabapentin 400 mg capsule 800 mg (2 x 400 mg) PO BID #120 02/12/23 caps aspirin 81 mg tablet,delayed 81 mg PO DAILY #90 tabs 03/04/23 release atorvastatin 80 mg tablet 80 mg PO DAILY #90 tabs 03/04/23 Allergies Allergy/AdvReac Type Severity Reaction Status Date / Time hydromorphone [Dilaudid] AdvReac Unknown confusion Verified 03/09/23 19:55 From DILAUDID AdvReac Severe CONFUSION/H Uncoded 02/14/23 01:16 ALLUCIATION S From PERCOCET AdvReac Intermediate AGITATION Uncoded 02/14/23 01:16 [facility] Past Medical History Medical History Gastritis and duodenitis Vitamin B12 deficiency Hyperkalemia Intertrigo Major depressive disorder, recurrent Benign prostatic hyperplasia with urinary frequency Constipation Obstructive sleep apnea Vitamin D deficiency Diabetic polyneuropathy Diabetes mellitus Obesity (BMI 30-39.9) Benign essential hypertension Pure hypercholesterolemia Coronary artery disease Surgical History Hx of cataract extraction (~2011) History of quadruple bypass (~2005) Hx of cystoscopy History of prostate surgery (~12/04/10) Hx of cholecystectomy (~2007) Family History Family History Father Lung cancer Mother Diabetes Hypertension Stomach cancer Social History Social History Household Members: None Housing: Apartment Do you presently have visiting nurse or other home services: No Alcohol intake: never Patient Tobacco Use Status: Former Tobacco user Quit Date: 17 years ago e-Cigarette/Vaping Use: Never Used Second Hand Smoke Exposure: No Advance Directives Date on File: 05/09/20 service: No Current occupational status: disabled Cognitive needs: Yes (cane) Hearing needs: No Vision needs: Yes Course Course Course Narrative: This is a rapid medical exam: Additional HPI, ROS, PE not included below will be deferred to primary provider. Patient is a 67-year-old male presenting to the emergency department complaining of anxiety related to the end of the year. Feels sad but denies any suicidal or homicidal ideation. Denies auditory or visual hallucinations. States he was seen at [facility] last night and was prescribed a laxative. States he does not currently have any anxiety medicine. Denies any physical complaints. After completion of triage patient states that he is leaving the ED. Discharge Plan Discharge Clinical Impression: Anxiety Patient Disposition: Left W/O Completing Treatment Prescriptions: No Action fluticasone propionate 50 mcg/actuation spray,suspension 1 spray intranasal DAILY Qty: 16 2RF (DME) pen needle, diabetic [Lite Touch Insulin Pen [place]] 31 gauge x 5/16 needle See Rx Instructions .Route Qty: 100 12RF Rx Instructions: Use 3 times daily (DME) lancets [OneTouch Delica Lancets] 33 gauge misc See Rx Instructions .Route Qty: 100 12RF Rx Instructions: As directed 3 times a day cyanocobalamin (vitamin B-12) 1,000 mcg tablet 1,000 mcg PO DAILY 90 Days Qty: 90 3RF omeprazole 40 mg capsule,delayed release(DR/EC) 40 mg PO DAILY 30 Days Qty: 30 3RF metoprolol tartrate 50 mg tablet 50 mg PO BID Qty: 180 1RF paroxetine HCl 40 mg tablet 40 mg PO DAILY Qty: 90 0RF cholecalciferol (vitamin D3) 50 mcg (2,000 unit) capsule 50 mcg PO DAILY 90 Days Qty: 90 3RF albuterol sulfate 90 mcg/actuation HFA aerosol inhaler 2 puff PO Q4-6H PRN (Reason: for wheezing) Qty: 8.5 2RF metoclopramide HCl [Reglan] 10 mg tablet 10 mg PO AC PRN (Reason: nausea and vomiting) Qty: 20 0RF insulin glargine [Lantus Solostar U-100 Insulin] 100 unit/mL (3 mL) insulin pen 80 unit subcut BID 30 Days Qty: 48 3RF OneTouch Ultra Blue Test Strip Strip 1 strip miscellaneous TID Qty: 100 3RF (DME) blood-glucose meter [OneTouch Ultra2 Meter] [facility] See Rx Instructions .ROUTE TID Qty: 1 Rx Instructions: test 3 times per day oxybutynin chloride 10 mg tablet extended release 24hr 10 mg PO DAILY Qty: 90 1RF (DME) OneTouch Ultra Test Strip See Rx Instructions .Route Qty: 100 8RF Rx Instructions: test 3 times per day lisinopril 10 mg tablet 10 mg PO DAILY Qty: 90 0RF gabapentin 400 mg capsule 800 mg PO BID Qty: 120 3RF Rx Instructions: take 2 capsules orally twice a day atorvastatin 80 mg tablet 80 mg PO DAILY Qty: 90 0RF aspirin 81 mg tablet,delayed release (DR/EC) 81 mg PO DAILY Qty: 90 0RF dicyclomine 20 mg tablet 20 mg PO QID PRN (Reason: abdominal pain) Qty: 20 0RF ondansetron HCl 4 mg tablet 4 mg PO Q6H PRN (Reason: nausea and vomiting) Qty: 14 0RF polyethylene glycol 3350 [Miralax] 17 gram/dose powder 17 g PO DAILY PRN (Reason: Constipation) insulin lispro [Humalog KwikPen Insulin] 100 unit/mL insulin pen 15 - 20 unit subcut BID ([facility] [place]) SHOWER CHAIR See Rx Instructions .Route .MEDSUPPLY Qty: 1 0RF Rx Instructions: As directed ([facility] [place]) SHOWER CHAIR See Rx Instructions .Route .MEDSUPPLY Qty: 1 0RF Rx Instructions: As directed ([facility] [place]) insulin syr/ndl U100 half gareth 0.5 mL 30 gauge x 5/16 syringe See Rx Instructions .Route Qty: 100 12RF Rx Instructions: Use 4 times daily ([facility] [place]) WALKER See Rx Instructions .Route .MEDSUPPLY Qty: 1 0RF Rx Instructions: As directed
[2023-03-09 20:00] VITALS: BP 160/79; PULSE 82; RESP 16; TEMP 36.9; O2SAT 98; BMI 37.2
== END 2023-03-09 22:28 | disposition left against medical advice (07) ==
PROVIDERS: Emergency Provider Emergency Medicine
DX: F41.9 Anxiety disorder, unspecified (principal); E11.9 Type 2 diabetes mellitus without complications; I10 Essential (primary) hypertension
CPT/HCPCS: 99283

== ENCOUNTER 2023-04-16 15:47 | Outpatient (AMB) | payer OTHER, SELFPAY ==
--- NOTE | 2023-04-16 16:30 | A.OFFVIS_ITS ---
Intake Intake Visit Reasons: follow up testo & urinary issues Intake Note: Patient presents to office for follow-up on Urinary Issues and Testosterone: Medication: tamsulosin and oxybutin? blood thinners: aspirin? no ABX allergies? PVR 10 Rehabilitation Aide Required: Yes Rehabilitation Aide Language: Weight And Balance Control Agent Name: DEVORA Parada/PADDY Boyle Information Interpreted: non-clinical & clinical Accompanied by: Self / Same As Patient Allergies hydromorphone [Dilaudid] Adverse Reaction (Unknown, Verified 05/09/23 10:03) confusion From DILAUDID Adverse Reaction (Severe, Uncoded 05/02/23 17:03) CONFUSION/HALLUCIATIONS From PERCOCET Adverse Reaction (Intermediate, Uncoded 05/02/23 17:03) AGITATION Medication List - Last Reconciled 04/16/23 by Vida Martinez MD albuterol sulfate 90 mcg/actuation 2 puffs PO Q4-6H PRN aspirin 81 mg PO DAILY atorvastatin 80 mg PO DAILY blood sugar diagnostic (OneTouch Ultra Test strips) test 3 times per day blood sugar diagnostic 1 strip miscellaneous TID blood-glucose meter (Meilapp.comTouch Ultra2 Meter) test 3 times per day cholecalciferol (vitamin D3) 50 mcg PO DAILY 90 days cyanocobalamin (vitamin B-12) 1,000 mcg PO DAILY 90 days dicyclomine 20 mg PO QID PRN fluticasone propionate 50 mcg/actuation 1 spray intranasal DAILY gabapentin 800 mg (2 x 400 mg) PO BID insulin glargine (Lantus Solostar U-100 Insulin) 80 units (0.8 mL) subcut BID 30 days insulin lispro (Humalog KwikPen (U-100) Insulin) 15 - 20 units subcut BID insulin syr/ndl U100 half gareth Use 4 times daily lancets (Satellieruch Delica Lancets) As directed 3 times a day lisinopril 10 mg PO DAILY metoclopramide HCl (Reglan) 10 mg PO AC PRN metoprolol tartrate 50 mg PO BID omeprazole 40 mg PO DAILY 30 days ondansetron HCl 4 mg PO Q6H PRN oxybutynin chloride ER 10 mg PO DAILY paroxetine HCl 40 mg PO DAILY pen needle, diabetic (Lite Touch Insulin Pen [place]) Use 3 times daily pen needle, diabetic (BD Ultra-Fine Original Pen Needle) 3 times daily pen needle, diabetic (BD Ultra-Fine [place] Pen Needle) test 3 times daily polyethylene glycol 3350 (Miralax) 17 grams PO DAILY PRN [SHOWER CHAIR As directed] [SHOWER CHAIR As directed] tamsulosin (Flomax) 0.4 mg PO BEDTIME [WALKER As directed] HPI HPI Comments History of Present Illness Details 04/16/23--Regan is a 67-year-old Pashto-speaking male and is here as for FU. He has been prescribed Flomax and oxybutynin for lower urinary tract symptoms urgency and BPH. Certified translator and interpreter present. Past medical history significant for insulin dependent diabetes. The patient states he was started on Flomax by his primary care physician but is still having urgency and urinary leakage. He is up 4-5 times at night to urinate. He denies problems with urinary tract infections are irritative voiding symptoms, denies gross hematuria. Review of chart: 04/25/22--Office cystoscopy- prostatic u rethra bilobar enlargement, non obstructive, no suspicious bladder lesions visualized Renal ultrasound-04/04/22- results WNL and PSA 04/01/22---0.31 he c/o's of problems with erections. CoMorbidity IDDM Evaluation today urinalysis leukocytes negative blood negative, protein 1 +. Plan - increase oxybutynin to 10 mg ER daily, testosterone levels, fu in 2 months PFSH Medical History Gastritis and duodenitis Vitamin B12 deficiency Hyperkalemia Intertrigo Major depressive disorder, recurrent Benign prostatic hyperplasia with urinary frequency Constipation Obstructive sleep apnea Vitamin D deficiency Diabetic polyneuropathy Diabetes mellitus Obesity (BMI 30-39.9) Benign essential hypertension Pure hypercholesterolemia Coronary artery disease Surgical History Hx of cataract extraction (~2011) History of quadruple bypass (~2005) Hx of cystoscopy History of prostate surgery (~12/04/10) Hx of cholecystectomy (~2007) Family History Father Lung cancer Mother Diabetes Hypertension Stomach cancer Social History Household Members: None Housing: Apartment Do you presently have visiting nurse or other home services: No Alcohol intake: never Patient Tobacco Use Status: Former Tobacco user Quit Date: 17 years ago e-Cigarette/Vaping Use: Never Used Second Hand Smoke Exposure: No Advance Directives Date on File: 05/09/20 service: No Current occupational status: disabled Cognitive needs: Yes (cane) Hearing needs: No Vision needs: Yes Review of Systems Const All systems reviewed & are unremarkable except as noted in HPI and below Reports no additional complaints Eyes Reports no additional complaints ENT Reports no additional complaints Card Reports no additional complaints Resp Reports no additional complaints GI Reports no additional complaints Reports as per HPI Musc Reports no additional complaints Skin/Breast Reports system reviewed and no additional complaints, except as documented Neuro Reports no additional complaints Psych Reports no additional complaints Endo Reports no additional complaints Lam/Lymph Reports no additional complaints Aller/Immun Reports no additional complaints Results AMB Urinalysis, Automated UA Leukoctes 0 Sydney/uL Last Edit by DEVORA Parada on 04/16/23 16:48 UA Nitrite Negative Last Edit by DEVORA Parada on 04/16/23 16:48 UA Urobilinogen 0.2 mg/dL Last Edit by DEVORA Parada on 04/16/23 16:4 8 UA Protein 30 mg/dL Last Edit by DEVORA Parada on 04/16/23 16:48 UA pH 5.5 Last Edit by DEVORA Parada on 04/16/23 16:48 UA Blood 0 Gomez/uL Last Edit by DEVORA Parada on 04/16/23 16:48 UA Specific [place] 1.025 Last Edit by DEVORA Parada on 04/16/23 16: 48 UA Ketone Negative Last Edit by DEVORA Parada on 04/16/23 16:48 UA Bilirubin 1 mg/dL Last Edit by DEVORA Parada on 04/16/23 16:48 UA Glucose 0 mg/dL Last Edit by DEVORA Parada on 04/16/23 16:48 Results Reviewed Results Reviewed: Laboratory Last Values Urine pH (Auto) 5.5 04/16/23 16:47 Specific [place] (Auto) 1.025 04/16/23 16:47 Urine Protein (Auto) 30 mg/dL 04/16/23 16:47 Glucose (UA)(Auto) 0 mg/dL 04/16/23 16:47 Urine Ketones (Auto) Negative 04/16/23 16:47 Urine Blood (Auto) 0 Gomez/uL 04/16/23 16:47 Urine Nitrite (Auto) Negative 04/16/23 16:47 Urine Bilirubin (Auto) 1 mg/dL 04/16/23 16:47 Urine Urobilinogen (Auto) 0.2 mg/dL 04/16/23 16:47 Leukocyte Esterase (Auto) 0 [place]/uL 04/16/23 16:47 Assessment & Plan Assessment & Plan (1) Urinary incontinence: Code(s): R32 - Unspecified urinary incontinence (2) BPH loc w urin obs/LUTS: Code(s): N40.1 - Benign prostatic hyperplasia with lower urinary tract symptoms (3) OAB (overactive bladder): Code(s): N32.81 - Overactive bladder (4) Erectile dysfunction: Code(s): N52.9 - Male erectile dysfunction, unspecified Plan increase oxybutynin to 10 mg ER daily, testosterone levels, fu in 2 months Orders: Orders AMB Urinalysis Automated 04/16/23 Z13.9 - Encounter for screening, unspecified Prostate Specific Antigen 04/16/23 N40.1 - Benign prostatic hyperplasia with lower urinary tract symptoms Medications: New tamsulosin (Flomax) 0.4 mg PO BEDTIME 90 caps 2RF Refilled oxybutynin chloride ER 10 mg PO DAILY 90 tabs 1RF Coding Level of Care Code Est Pt Level 4 (74525) Diagnoses Urinary incontinence R32 BPH loc w urin obs/LUTS N40.1 OAB (overactive bladder) N32.81 Erectile dysfunction N52.9
== END 2023-04-16 16:51 | disposition home or self-care (01) ==
PROVIDERS: Visit Provider Urology
DX: R32 Unspecified urinary incontinence (principal); N40.1 Benign prostatic hyperplasia with lower urinary tract symptoms; N32.81 Overactive bladder; N52.9 Male erectile dysfunction, unspecified
CPT/HCPCS: 99214

== ENCOUNTER → 2023-04-16 15:47 | Outpatient (BNVA) | payer OTHER, SELFPAY | PROVIDERS: Visit Provider Urology | DX: N40.1 Benign prostatic hyperplasia with lower urinary tract symptoms (principal); N32.81 Overactive bladder; N52.9 Male erectile dysfunction, unspecified; R32 Unspecified urinary incontinence | CPT/HCPCS: 81003; 99212 ==

== ENCOUNTER 2023-05-02 16:47 | Outpatient (AMB) | payer OTHER, SELFPAY ==
[2023-05-02 16:52] VITALS: BP 138/70; PULSE 80; RESP 16; O2SAT 97; BMI 40.9
--- NOTE | 2023-05-02 16:52 | A.OFFPC_ITS ---
Vital Signs 05/02/23 16:52 Height 5 ft 3 in Weight 231 lb BMI 40.9 BP 138/70 Blood Pressure Location Lt brachial Position Sitting Respiration 16 Pulse 80 Pulse Source Pulse Oximeter Pulse Oximetry (%) 97 Oxygen Delivery Method Room Air Intake Visit Reasons: follow up Intake Note: Pt is here for medication F/U. Neurophysiologist Required: Yes Neurophysiologist Language: Armenian Accompanied by: Self / Same As Patient Allergies hydromorphone [Dilaudid] Adverse Reaction (Unknown, Verified 05/02/23 17:03) confusion From DILAUDID Adverse Reaction (Severe, Uncoded 05/02/23 17:03) CONFUSION/HALLUCIATIONS From PERCOCET Adverse Reaction (Intermediate, Uncoded 05/02/23 17:03) AGITATION Medication List - Last Reconciled 05/02/23 by Jerry Persaud MD albuterol sulfate 90 mcg/actuation 2 puffs PO Q4-6H PRN aspirin 81 mg PO DAILY atorvastatin 80 mg PO DAILY blood sugar diagnostic (Marginizeuch Ultra Test strips) test 3 times per day blood sugar diagnostic 1 strip miscellaneous TID blood-glucose meter (Marginizeuch Ultra2 Meter) test 3 times per day cholecalciferol (vitamin D3) 50 mcg PO DAILY 90 days cyanocobalamin (vitamin B-12) 1,000 mcg PO DAILY 90 days dicyclomine 20 mg PO QID PRN fluticasone propionate 50 mcg/actuation 1 spray intranasal DAILY gabapentin 800 mg (2 x 400 mg) PO BID insulin glargine (Lantus Solostar U-100 Insulin) 80 units (0.8 mL) subcut BID 30 days insulin lispro (Humalog KwikPen (U-100) Insulin) 15 - 20 units subcut BID insulin syr/ndl U100 half gareth Use 4 times daily lancets (WIDIPTouch Delica Lancets) As directed 3 times a day lisinopril 10 mg PO DAILY metoclopramide HCl (Reglan) 10 mg PO AC PRN metoprolol tartrate 50 mg PO BID omeprazole 40 mg PO DAILY 30 days ondansetron HCl 4 mg PO Q6H PRN oxybutynin chloride ER 10 mg PO DAILY paroxetine HCl 40 mg PO DAILY pen needle, diabetic (Lite Touch Insulin Pen [place]) Use 3 times daily pen needle, diabetic (BD Ultra-Fine Original Pen Needle) 3 times daily pen needle, diabetic (BD Ultra-Fine Brittany Pen Needle) test 3 times daily polyethylene glycol 3350 (Miralax) 17 grams PO DAILY PRN [SHOWER CHAIR As directed] [SHOWER CHAIR As directed] tamsulosin (Flomax) 0.4 mg PO BEDTIME [WALKER As directed] Tobacco use date assessed: 05/02/23 Fall risk assessment: 1 Fall in past year Last assessed Fall Risk: 05/02/23 Dental Screening Dental Screen Date: 05/02/23 Did you have a dental visit in the last 12 months?: Yes Did you have a dental problem in the last 6 months where you did not have access to dental care?: No Was dental information given to patient?: Patient has dentist HPI follow up HPI Details Patient comes in today for his follow up visit - was last seen by me on 10/14/2022 States that he feels okay He denies any headaches or dizziness Denies any chest pains, no increased SOB No nausea/vomiting, no abdominal pain No change in bowel habits noted He has no follow up labs done recently but recalls that he had a HgbA1c done by a nurse sent over by his health insurance ([employer]) a few weeks ago - HgbA1c was at 8.5% States that he continues to experience increased pain and at times, an intense burning sensation in both of his legs and feet, and that the pain gets unbearable sometimes and that his current medications are not really helping much with the pain FOR[facility]LY [facility], [facility] Medical History Gastritis and duodenitis Vitamin B12 deficiency Hyperkalemia Intertrigo Major depressive disorder, recurrent Benign prostatic hyperplasia with urinary frequency Constipation Obstructive sleep apnea Vitamin D deficiency Diabetic polyneuropathy Diabetes mellitus Obesity (BMI 30-39.9) Benign essential hypertension Pure hypercholesterolemia Coronary artery disease Surgical History Hx of cataract extraction (~2011) History of quadruple bypass (~2005) Hx of cystoscopy History of prostate surgery (~12/04/10) Hx of cholecystectomy (~2007) Family History Father Lung cancer Mother Diabetes Hypertension Stomach cancer Social History Household Members: None Housing: Apartment Do you presently have visiting nurse or other home services: No Alcohol intake: never Patient Tobacco Use Status: Former Tobacco user Quit Date: 17 years ago e-Cigarette/Vaping Use: Never Used Second Hand Smoke Exposure: No Advance Directives Date on File: 05/09/20 service: No Current occupational status: disabled Cognitive needs: Yes (cane) Hearing needs: No Vision needs: Yes Questionnaire PHQ-9 Over the last 2 weeks, how often have you been bothered by any of the following problems? 1. Little interest or pleasure in doing things: not at all 2. Feeling down, depressed, or hopeless: not at all 3. Trouble falling or staying asleep, or sleeping too much: not at all 4. Feeling tired or having little energy: not at all 5. Poor appetite or overeating: not at all 6. Feeling bad about yourself - or that you are a failure or have let yourself or your family down: not at all 7. Trouble concentrating on things, such as reading the newspaper or watching television: not at all 8. Moving or speaking so slowly that other people could have noticed. Or the opposite - being so fidgety or restless that you have been moving around a lot more than usual: not at all 9. Thoughts that you would be better off or of hurting yourself in some way: not at all Total score: 0 Depression Screening Interpretation: Negative Depression Screening Done: Yes 74998 - PHQ-9 Billing: Yes Source: Developed by Drs. Steven Miller, Monie Garduno, Trevor Lin and colleagues, with an educational kwabena from [employer]. Thrive Questionnaire Date Thrive assessed: 05/02/23 I am a: Patient What is your living situation today?: I have a steady place to live Within the past 12 months, did the food you bought not last and you didn't have the money to get more?: Never true Within the past 12 months, did you worry whether your food would run out before you got money to buy more?: Never true Do you have trouble paying for medicines?: No Do you have trouble getting transportation to medical appointments?: No Do you have trouble paying your heating and electricity bill?: No Do you have trouble taking care of your child, family member or friend?: No Do you have trouble with day-to-day activities such as bathing, preparing meals, shopping, managing finances, etc.?: No Are you currently unemployed and looking for a job?: No Are you interested in more education?: No Please select the resources that you would like help with: None Currently or been in a relationship where the following occur: no concerns reported THRIVE Score: 0 AUDIT C Alcohol Use Questionnaire (AUDIT-C) 1. How often do you have a drink containing alcohol?: Never 3. How often do you have six or more drinks on one occasion?: Never Total Score: 0 Score Reviewed/Action Taken: Yes CHEL-7 AMB Questionnaire CHEL-7 Date CHEL - 7 assessed: 05/02/23 Feeling nervous, anxious, or on edge: 0 = Not at all Not being able to stop or control worryin = Not at all Worrying too much about different things: 0 = Not at all Trouble relaxin = Not at all Being so restless that it is hard to sit still: 0 = Not at all Becoming easily annoyed or irritable: 0 = Not at all Feeling afraid as if something awful might happen: 0 = Not at all Total CHEL-7 score (0-4 normal; 5-9 mild; 10-14 moderate; 15-21 severe): 0 Source: Developed by Drs. Steven Miller, Monie Garduno, Trevor Lin and colleagues, with an educational kwabena from [employer]. CHEL-7 Assessment Billing CHEL-7 Assessment Tool: CHEL-7 Assessment 18320 Review of Systems Const Denies chills, Reports fatigue, Denies fever(s) and Denies headache(s) ENT Denies dysphagia, Denies dizziness, Denies otalgia, Denies headache(s), Denies neck pain, Denies odynophagia and Denies sore throat Card Denies chest pain, Denies rapid heart rate, Denies irregular heart rhythm, Denies palpitations and Reports dyspnea on exertion (mild) Resp Denies chest congestion, Denies cough, Reports dyspnea on exertion (mild) and Denies wheezing GI Denies abdominal pain, Denies constipation, Denies dysphagia, Denies heartburn, Denies diarrhea, Denies nausea, Denies odynophagia and Denies vomiting Denies difficulty urinating, Denies dysuria and Denies urinary frequency Musc Reports back pain (over the lower back - chronic), Denies joint swelling and Denies neck pain Skin/Breast Denies rash Neuro Denies dizziness, Denies headache(s) and Reports radicular pain (in both legs, on and off) Endo Reports fatigue and Denies palpitations Aller/Immun Denies wheezing Physical exam (Primary Care) Vital Signs: Last Vital Signs Pulse 80 05/02/23 16:52 Resp 16 05/02/23 16:52 BP 138/70 05/02/23 16:52 Pulse Ox 97 05/02/23 16:52 Oxygen Delivery Method Room Air 05/02/23 16:52 BMI result Body Mass Index 40.9 Tobacco/Smoking Status: Tobacco use Status Tobacco use date assessed 05/02/23 05/02/23 16:57 Patient Tobacco Use Status Former Tobacco user 05/02/23 16:53 e-Cigarette/Vaping Use Never Used 05/02/23 16:53 PHQ-9: PHQ-9 Score PHQ-9: Total score 0 05/02/23 17:14 Depression Screening Interpretation: Negative Thrive Assessment: Date of Thrive Assessment Date Thrive assessed 05/02/23 05/02/23 16:57 Currently or been in a relationship where the following occur: no concerns reported Const General: no acute distress and alert HENMT Ears: TM's normal bilaterally and EAC's normal Throat: Yes posterior oropharynx normal and Yes tonsils normal (no TP congestion) Neck Neck: Yes no lymphadenopathy and Yes supple Thyroid: Thyroid normal Resp Auscultation: clear to auscultation bilaterally, no rales and no wheezes Cardio Rate: regular rate Rhythm: regular rhythm Heart sounds: no murmurs GI Palpation (GI): Soft to palpation and nontender Auscultation: normal bowel sounds General: Yes no CVA tenderness Back/Spine/Pelvis Back: no CVA tenderness Thoracic/Lumbar Spine: lumbar spinal tenderness Skin Rashes: no rashes Extrem Other: (+) healed longitudinal scars over the medial aspect of both lower legs, the result of his quadruple bypass done back in 2005 General: Yes no clubbing, cyanosis or edema Results AMB Hemoglobin A1c AMB Hemoglobin A1c 8.8 % Last Edit by AMOR Joya on 05/02/23 17:14 Results Reviewed Results Reviewed: Laboratory Last Values Hgb A1c (Clinic) 8.8 % (4.0-6.0) H 05/02/23 17:08 Assessment and Plan Assessment & Plan (1) Type 2 diabetes mellitus with diabetic neuropathy: Code(s): E11.40 - Type 2 diabetes mellitus with diabetic neuropathy, unspecified Qualifiers: Diabetes mellitus terminal supervisor insulin use: with terminal supervisor use Qualified Code(s): E11.40 - Type 2 diabetes mellitus with diabetic neuropathy, unspecified; Z79.4 - terminal supervisor (current) use of insulin Plan: In-office HgbA1c done today is at 8.8% (HgbA1c was at 7.6% back in October 2022) - goal is <7.0% Reinforced diabetic diet - is now seeing the diabetic superintendent system operation for diet counseling / education Continue Humalog Kwikpen up to 50 units BID per sliding scale, Lantus 80 units BID and Trulicity 1.5 mg SQ once a week although it appears that patient has not been taking his Trulicity lately He used to see Dr. Lucas for endocrinology follow-up and management but has not been seen since June 2022 Will refer him back to endocrinology for further evaluation and management of his poorly controlled diabetes mellitus (2) Diabetic polyneuropathy: Code(s): E11.42 - Type 2 diabetes mellitus with diabetic polyneuropathy Qualifiers: Diabetes mellitus type: type 2 Qualified Code(s): E11.42 - Type 2 diabetes mellitus with diabetic polyneuropathy Plan: Continue Gabapentin *00 mg BID, Tramadol 50 mg TID PRN and Duloxetine 30 mg QD Reminded again that the best way to slow down the progression of his neuropathy is to get his diabetes under control, with goal of HgbA1c of at least <7.0% or 7.5% As he has been experiencing increasing pain in his lower extremities and his current medications have not been helping, will refer him to pain management (3) Coronary artery disease: Comment: 2005 Code(s): I25.10 - Atherosclerotic heart disease of [place] coronary artery without angina pectoris Qualifiers: Associated angina: without angina Coronary Disease-Associated Artery/Lesion type: [place] artery [place] vs. transplanted heart: [place] heart Qualified Code(s): I25.10 - Atherosclerotic heart disease of [place] coronary artery without angina pectoris Plan: S/P quadruple bypass in 2005 Continue Aspirin 81 mg QD and Metoprolol 50 mg BID [place] [facility] [place] (4) Pure hypercholesterolemia: Code(s): E78.00 - Pure hypercholesterolemia, unspecified Plan: Reinforced low cholesterol diet Continue Atorvastatin 80 mg QD Will recheck his labs and fasting lipids in 3 months for follow up (5) Benign essential hypertension: Code(s): I10 - Essential (primary) hypertension Plan: Reinforced low-sodium diet - goal is systolic BP of at least 130 mm or less Continue Lisinopril 10 mg QD and Metoprolol 50 mg BID (6) Gastritis and duodenitis: Code(s): K29.90 - Gastroduodenitis, unspecified, without bleeding Plan: (+) gastritis and duodenitis on EGD done by Dr. Chavis in 2008 Reinforced dietary restrictions in gastritis Continue Omeprazole 40 mg QD Follow up with GI as scheduled (7) Obstructive sleep apnea: Code(s): G47.33 - Obstructive sleep apnea (adult) (pediatric) Plan: (+) Hx of JAIME - has CPAP device but states that he has not been using it as he had more trouble sleeping when he tried using it for the first time States that he feels that he sleeps well enough without it and denies any daytime somnolence fatigue (8) Obesity (BMI 30-39.9): Code(s): E66.9 - Obesity, unspecified Plan: Reinforced diet/exercise as tolerated/lose weight Plan Follow up in 3 months Orders: Orders TSH reflex Free T4 3 Months E78.00 - Pure hypercholesterolemia, unspecified UA CC w/rflx Micro + Cult 3 Months R30.0 - Dysuria AMB Hemoglobin A1c 24 E11.9 - Type 2 diabetes mellitus without complications Hemoglobin A1c 3 Months E11.9 - Type 2 diabetes mellitus without complications Complete Blood Count Auto Diff 3 Months D64.9 - Anemia, unspecified Comprehensive [place]. Panel Fast 3 Months E78.00 - Pure hypercholesterolemia, unspecified Lipid Panel 3 Months E78.00 - Pure hypercholesterolemia, unspecified Vitamin D 25-OH Total 3 Months E55.9 - Vitamin D deficiency, unspecified Vitamin B12 and Folate 3 Months E53.8 - Deficiency of other specified B group vitamins Microalbumin, Random (w Creat) 3 Months E11.9 - Type 2 diabetes mellitus without complications Referrals Pain Management Referral E11.42 - Type 2 diabetes mellitus with diabetic polyneuropathy Endocrinology Referral E11.40 - Type 2 diabetes mellitus with diabetic neurop athy, unspecified Coding Level of Care Code Est Pt Level 4 (76128) Diagnoses Type 2 diabetes mellitus with diabetic neuropathy, with long-term current use of insulin E11.40; Z79.4 Diabetes mellitus jail insulin use: with terminal supervisor use Diabetic polyneuropathy associated with type 2 diabetes mellitus E11.42 Diabetes mellitus type: type 2 Coronary artery disease involving [place] coronary artery of [place] heart without angina pectoris I25.10 Associated angina: without angina Coronary Disease-Associated Artery/Lesion type: [place] artery [place] vs. transplanted heart: [place] heart Pure hypercholesterolemia E78.00 Benign essential hypertension I10 Gastritis and duodenitis K29.90 Obstructive sleep apnea G47.33 Obesity (BMI 30-39.9) E66.9 Additional Codes CHEL-7 Assessment Billing - CHEL-7 Assessment Tool: CHEL-7 Assessment 46043 ([id number])
== END 2023-05-02 17:19 | disposition home or self-care (01) ==
PROVIDERS: PCP Internal Medicine; Visit Provider Internal Medicine
DX: E11.40 Type 2 diabetes mellitus with diabetic neuropathy, unspecified (principal); Z79.4 Long term (current) use of insulin; Z68.41 Body mass index [BMI] 40.0-44.9, adult; E66.9 Obesity, unspecified; E11.42 Type 2 diabetes mellitus with diabetic polyneuropathy; E78.00 Pure hypercholesterolemia, unspecified; I25.10 Atherosclerotic heart disease of native coronary artery without angina pectoris; I10 Essential (primary) hypertension; K29.90 Gastroduodenitis, unspecified, without bleeding; G47.33 Obstructive sleep apnea (adult) (pediatric)
CPT/HCPCS: 83036; 99214

== ENCOUNTER 2023-05-09 09:48 | Emergency (ER) | payer OTHER, SELFPAY ==
--- NOTE | ~2023-05-09 | CT_ITS ---
EXAMINATION: CT HEAD WITHOUT CONTRAST CLINICAL INFORMATION: Weakness. COMPARISON: CT head dated 10/09/2022. TECHNIQUE: Contiguous axial imaging was performed from the skull base to vertex without intravenous administration of contrast. This CT examination was performed using dose optimization techniques as appropriate, variously including the following: *Automated exposure control *Adjustment of mA and/or kV according to patient size (this includes techniques or standardized protocols for targeted exams where dose is matched to indication/reason for exam; i.e. extremities or head) *Use of iterative reconstruction technique DLP: 793 mGy-cm FINDINGS: There is no intracranial hemorrhage. There is no evidence of acute/subacute cerebral or cerebellar infarction. There is a moderate degree of microvascular ischemic change. There is a lacunar infarct, chronic within the left aspect of the annie. There is no midline shift or mass effect. No extra-axial fluid collection. The ventricles are normal in size. The orbits are symmetric and within normal limits. The ocular lenses are surgically absent. The calvarium is intact. Mastoid air cells are well aerated. Paranasal sinuses are clear. CT/CT head/brain wo IV con IMPRESSION: No acute intracranial abnormality. There is moderate microvascular ischemic change.
--- NOTE | ~2023-05-09 | XR_ITS ---
EXAMINATION: XR CHEST CLINICAL INFORMATION: Shortness of breath. COMPARISON: 03/06/2023 TECHNIQUE: Frontal view of the chest was obtained. FINDINGS: The lungs are moderately expanded. No focal consolidation. No pleural effusion. Cardiac silhouette is unchanged. Prior median sternotomy. XR/XR chest 1V IMPRESSION: No acute abnormality.
[2023-05-09 10:00] VITALS: BP 142/74; BP 155/49; PULSE 79; PULSE 85; RESP 18; TEMP 37.2; O2SAT 94; O2SAT 95; BMI 36.6
--- NOTE | 2023-05-09 10:03 | ECG_ITS ---
Test Reason : EPIGASTRIC PAIN Blood Pressure : / mmHG Vent. Rate : 076 BPM Atrial Rate : 076 BPM P-R Int : 244 ms QRS Dur : 094 ms QT Int : 388 ms P-R-T Axes : 021 -28 035 degrees QTc Int : 436 ms Sinus rhythm with 1st degree A-V block Minimal voltage criteria for LVH, may be normal variant ( R in aVL ) Septal infarct , age undetermined Possible Lateral infarct , age undetermined Abnormal ECG When compared with ECG of 06-MAR-2023 20:45, OK interval has increased Borderline criteria for Lateral infarct are now Present T wave inversion no longer evident in Lateral leads Referred By: Breann Monahan Electronically Signed By:JAIME CASTRO
--- NOTE | 2023-05-09 10:04 | ED.GENADULT ---
HPI - General Adult General Chief complaint: Abdominal Pain Stated complaint: ABD PAIN Time Seen by Provider: 05/09/23 10:02 Source: patient, family and EMS Mode of arrival: EMS Limitations: other (poor historian ) History of Present Illness HPI narrative: This is a 67-year-old male history of diabetes, alcohol abuse, COPD, asthma, gastritis, overactive bladder, erectile dysfunction, BPH, hyperkalemia, intertrigo, hypercholesterolemia presenting to the emergency department via ambulance for complaints of epigastric pain, shortness of breath, urinary frequency ongoing for the past few days. Patient reports his shortness of breath has been worsening. Patient is not on a blood thinner. Patient denies chest pain, nausea, vomiting, abdominal pain, headache, vision changes, dizziness and weakness. Patient seems confused. Related Data Home Medications Medication Instructions Recorded Confirmed insulin lispro 100 unit/mL 15 - 20 unit subcut BID 10/09/22 05/02/23 subcutaneous pen (Humalog KwikPen (U-100) Insulin) polyethylene glycol 3350 17 17 g PO DAILY PRN Constipation 10/09/22 05/02/23 gram/dose oral powder (Miralax) blood-glucose meter (OneTouch #1 ea 11/27/22 05/02/23 Ultra2 Meter) Previous Rx's Medication Instructions Recorded SHOWER CHAIR #1 ea 10/05/20 SHOWER CHAIR #1 ea 01/10/21 fluticasone propionate 50 1 spray intranasal DAILY #16 grams 03/16/21 mcg/actuation nasal spray,suspension insulin syr/ndl U100 half gareth 0.5 #100 ea 05/14/21 mL 30 gauge x 5/16 pen needle, diabetic 31 gauge x #100 ea 03/12/22 5/16 (Lite Touch Insulin Pen [place]) lancets 33 gauge (OneTouch Delica #100 ea 03/13/22 Lancets) cyanocobalamin (vitamin B-12) 1,000 mcg PO DAILY 90 days #90 tabs 04/25/22 1,000 mcg tablet dicyclomine 20 mg tablet 20 mg PO QID PRN abdominal pain 07/05/22 #20 tabs ondansetron HCl 4 mg tablet 4 mg PO Q6H PRN nausea and 07/06/22 vomiting #14 tabs metoprolol tartrate 50 mg tablet 50 mg PO BID #180 tabs 10/28/22 paroxetine HCl 40 mg tablet 40 mg PO DAILY #90 tabs 10/31/22 cholecalciferol (vitamin D3) 50 50 mcg PO DAILY 90 days #90 caps 11/04/22 mcg (2,000 unit) capsule albuterol sulfate 90 mcg/actuation 2 puff PO Q4-6H PRN for wheezing 11/12/22 aerosol inhaler #8.5 grams metoclopramide HCl 10 mg tablet 10 mg PO AC PRN nausea and 11/12/22 (Reglan) vomiting #20 tabs insulin glargine 100 unit/mL (3 80 unit (0.8 mL) subcut BID 30 11/22/22 mL) subcutaneous pen (Lantus days #48 mL Solostar U-100 Insulin) blood sugar diagnostic 1 strip miscellaneous TID #100 11/27/22 strips blood sugar diagnostic (OneTouch #100 ea 01/13/23 Ultra Test strips) lisinopril 10 mg tablet 10 mg PO DAILY #90 tabs 01/13/23 aspirin 81 mg tablet,delayed 81 mg PO DAILY #90 tabs 03/04/23 release atorvastatin 80 mg tablet 80 mg PO DAILY #90 tabs 03/04/23 pen needle, diabetic 29 gauge x #100 ea 04/02/23 12 (BD Ultra-Fine Original Pen Needle) pen needle, diabetic 32 gauge x #1,200 ea 04/02/23 (BD Ultra-Fine Brittany Pen Needle) WALKER #1 ea 04/09/23 omeprazole 40 mg capsule,delayed 40 mg PO DAILY 30 days #30 caps 04/09/23 release oxybutynin chloride 10 mg 10 mg PO DAILY #90 tabs 04/16/23 tablet,extended release 24 hr tamsulosin 0.4 mg capsule (Flomax) 0.4 mg PO BEDTIME #90 caps 04/16/23 gabapentin 800 mg tablet 800 mg PO TID 30 days #90 tabs 05/08/23 Allergies Allergy/AdvReac Type Severity Reaction Status Date / Time hydromorphone [Dilaudid] AdvReac Unknown confusion Verified 05/09/23 10:03 From DILAUDID AdvReac Severe CONFUSION/H Uncoded 05/02/23 17:03 ALLUCIATION S From PERCOCET AdvReac Intermediate AGITATION Uncoded 05/02/23 17:03 Review of Systems Review of Systems: Yes all other systems are reviewed and are negative [facility] Past Medical History Attestation statement: The following information was validated with the patient. Source: old records reviewed and nursing notes reviewed Medical History Gastritis and duodenitis Vitamin B12 deficiency Hyperkalemia Intertrigo Major depressive disorder, recurrent Benign prostatic hyperplasia with urinary frequency Constipation Obstructive sleep apnea Vitamin D deficiency Diabetic polyneuropathy Diabetes mellitus Obesity (BMI 30-39.9) Benign essential hypertension Pure hypercholesterolemia Coronary artery disease Surgical History Hx of cataract extraction (~2011) History of quadruple bypass (~2005) Hx of cystoscopy History of prostate surgery (~12/04/10) Hx of cholecystectomy (~2007) Family History Family History Father Lung cancer Mother Diabetes Hypertension Stomach cancer Social History Social History Household Members: None Housing: Apartment Do you presently have visiting nurse or other home services: No Alcohol intake: never Patient Tobacco Use Status: Former Tobacco user Quit Date: 17 years ago e-Cigarette/Vaping Use: Never Used Second Hand Smoke Exposure: No Advance Directives: No Advance Directives Information Provided: Yes Advance Directives Date on File: 05/09/20 service: No Current occupational status: disabled Cognitive needs: Yes (cane) Hearing needs: No Vision needs: Yes Physical Exam ED Vital Signs: Vital Signs - 24 hr 05/09/23 10:00 05/09/23 14:35 Temperature 98.9 F 98.9 F Pulse Rate 79 80 Respiratory Rate 18 16 Blood Pressure 155/49 H 160/80 H Pulse Oximetry 94 98 Oxygen Delivery Method Room Air Room Air BMI result Body Mass Index 36.6 vss Appearance: Alert.? Oriented to person not place time or situation? No acute distress.? Head: Normocephalic, atraumatic, no step-offs or deformities Eyes: Pupils equal, round and reactive to light.? CVS: Normal heart rate and rhythm.? Pulses normal.? Respiratory: No respiratory distress.? Breath sounds normal.? Abdomen: Soft and nontender.? Skin: Skin warm and dry.? Normal skin color.? Normal skin turgor.? Extremities: No lower extremity edema.? No calf ttp. Global weakness Back: No midline tenderness, no C-spine tenderness, full range of motion, no CVA tenderness bilaterally Neuro: Oriented to person not place, time situation.? No motor deficit.? No sensory deficit. Unsteady gait Course Reevaluation(s) Reevaluation #1: CBC with normocytic baseline anemia. Chemistry with elevated anion gap at this time unclear etiology. Blood cultures, lactic acid ordered and pending. BUN 23, creatinine 0.97. Fluids ordered. Lactic acid negative. Flu, COVID, RSV negative. Nursing staff did try to get patient up earlier patient with unsteady gait. Head scan ordered. Patient states claustrophobia. Ativan ordered as he was refusing scan earlier. Time: 14:22 Reevaluation #2: Beta hydroxybutyrate normal. Unlikely anion gap secondary to DKA. Patient adamantly refusing CT scan. Has been taking multiple times. Pending UA Time: 15:43 Reevaluation #3: I have tried to call patient's son multiple times no answer. Time: 16:59 Additional Reevaluation(s): 1702 Spoke to son (mark hancock) and daughter patient has been very confused/ spaced out and at times depressed but hasnt been evaluated for dementia. He has not been making sense lately. Has a SUPPLY ROOM CLERK who told him he should go in to be seen. Son and daughter tell me he lives home alone. Agree it would be unsafe to send him home like this. Family would want patient to get abdominal scans. Sign out to Marlys REYNOSO Medications Administered Discontinued Medications Generic Name Dose Route Start Last Admin Trade Name Freq PRN Reason Stop Dose Admin Sodium Chloride 1,000 mls @ 999 mls/hr 05/09/23 14:30 05/09/23 17:10 Ns IV 05/09/23 15:30 Infused .Q1H1M ABELARDO Infusion Lorazepam 0.5 mg 05/09/23 14:21 05/09/23 14:31 Lorazepam 0.5 Mg Tablet PO 05/09/23 14:22 0.5 mg ONCE ONE Administration Lorazepam 1 mg 05/09/23 17:08 05/09/23 17:15 Lorazepam 2 Mg/Ml Vial IVPUSH 05/09/23 17:09 1 mg ONCE ONE Administration Medical Decision Making Medical Decision Making [facility] Narrative: 1005 67-year-old male presents with epigastric pain, urinary frequency, shortness of breath for the past few days. Recently COVID positive Physical examination diminished breath sounds bilaterally . History and physical exam concerning for post viral symptoms versus pneumonia versus CHF versus chronic lung condition. Unlikely PE, ACS, dissection, acute hypoxic respiratory failure. Will rule out metabolic derangements and or UTI for concerns of possible urinary tract infection. Plan labs, imaging, viral test Differential Diagnosis Differential Diagnoses: The differential diagnosis associated with the presentation includes History and physical exam concerning for post viral symptoms versus pneumonia versus CHF versus chronic lung condition. Unlikely PE, ACS, dissection, acute hypoxic respiratory failure. Will rule out metabolic derangements and or UTI for concerns of possible urinary tract infection. Admission/Observation Consideration of admission/observation: Escalation of care including admission/observation considered Unlikely Consult Healthcare Provider Management of the patient was discussed with: Technical Maintenance Specialist ([employer]) Lab Data [facility] Lab Attestation statement: I reviewed the patient's lab results. 05/09/23 11:47 05/09/23 11:47 Labs: Lab Results 05/09/23 05/09/23 05/09/23 Range/Units 11:23 11:47 12:35 WBC 9.1 (4.8-10.8) X10*3/uL RBC 3.94 L (4.60-5.80) X10*6/uL Hgb 12.2 L (14.0-18.0) g/dl Hct 35.3 L (42.0-52.0) % MCV 89.6 (80.0-98.0) fL MCH 31.0 (27.0-33.0) pg MCHC 34.6 (31.0-36.0) g/dl RDW 12.3 (11.0-16.0) % Plt Count 158 L (160-400) X10*3/uL MPV Not Reportable Immature Gran % (Auto) 0.3 (0.0-0.4) % Neut % (Auto) 72.9 (45-73) % Lymph % (Auto) 18.6 L (20-40) % [place] % (Auto) 7.5 (2-11) % Eos % (Auto) 0.5 (0-4) % Baso % (Auto) 0.2 (0-2) % Lymph # (Auto) 1.7 (1.2-4.9) X10*3/uL [place] # (Auto) 0.7 (0.1-1.2) X10*3/uL Eos # (Auto) 0.1 (0.0-0.4) X10*3/uL Baso # (Auto) 0.0 (0.0-0.2) X10*3/uL Abs Immat Gran (auto) 0.03 (0.00-0.03) X10*3/uL Absolute Neuts (auto) 6.6 (2.0-8.3) x10*3/uL Absolute Nucleated RBC 0.000 (0.0-0.012) X10*3/uL Nucleated RBC % (auto) 0.0 (0.0-0.2) /100WBC Smear Tech's Comments VERIFIED Hold Purple Top SEE NOTE PT 11.4 (11.1-13.3) SEC INR 0.9 (0.9-1.1) Sodium 143 (135-145) mmol/L Potassium 4.6 (3.3-5.1) mmol/L Chloride 98 (96-108) mmol/L Carbon Dioxide 25 (22-29) mmol/L Anion Gap 25 H (12-20) BUN 23 H (9-16) mg/dL Creatinine 0.97 (0.5-1.4) mg/dL Estim Creat Clear Calc 80.7 Estimated GFR > 60 Random Glucose 273 H (60-115) mg/dL Lactic Acid (0.5-2.0) mmol/L Calcium 9.2 D (8.4-10.2) mg/dL Magnesium 2.1 (1.6-2.6) mg/dL Total Bilirubin 0.7 (0.0-1.0) mg/dL AST 21 (5-37) U/L ALT 25 (0-40) U/L Alkaline Phosphatase 112 (39-117) U/L Total Creatine Kinase 95 (38-174) U/L Troponin I High Sens 7.3 (<3.5-35.0) ng/L B-Natriuretic Peptide 88 (<100) pg/mL Total Protein 7.0 (6.5-8.0) g/dL Albumin 3.7 (3.5-5.0) g/dL Lipase 14 (8-78) U/L Beta-Hydroxybutyrate (0.02-0.27) mmol/L Urine Color Urine Appearance Urine pH (5.0-9.0) Ur Specific [place] (1.005-1.025) Urine Protein (Neg-Trace) mg/dL Urine Glucose (UA) (Negative) mg/dL Urine Ketones (Negative) mg/dL Urine Blood (Negative) Urine Nitrite (Negative) Ur Leukocyte Esterase (Negative) Urine RBC (0-2) /HPF Urine WBC (0-5) /HPF Ur Squamous Epith Cells (0-2) /HPF Urine Bacteria (None Seen) Hyaline Casts (0-2) /LPF Salicylates (15-30) mg/dL Acetaminophen (<30) mcg/mL Ethyl Alcohol mg/dL Influenza Type A (PCR) NEGATIVE (Negative) Influenza Type B (PCR) NEGATIVE (Negative) RSV RNA Qual (PCR) NEGATIVE (Negative) SARS-CoV-2 RNA (RT-PCR) NEGATIVE (Negative) 05/09/23 05/09/23 05/09/23 Range/Units 12:43 13:24 15:36 WBC (4.8-10.8) X10*3/uL RBC (4.60-5.80) X10*6/uL Hgb (14.0-18.0) g/dl Hct (42.0-52.0) % MCV (80.0-98.0) fL MCH (27.0-33.0) pg MCHC (31.0-36.0) g/dl RDW (11.0-16.0) % Plt Count (160-400) X10*3/uL MPV Immature Gran % (Auto) (0.0-0.4) % Neut % (Auto) (45-73) % Lymph % (Auto) (20-40) % [place] % (Auto) (2-11) % Eos % (Auto) (0-4) % Baso % (Auto) (0-2) % Lymph # (Auto) (1.2-4.9) X10*3/uL [place] # (Auto) (0.1-1.2) X10*3/uL Eos # (Auto) (0.0-0.4) X10*3/uL Baso # (Auto) (0.0-0.2) X10*3/uL Abs Immat Gran (auto) (0.00-0.03) X10*3/uL Absolute Neuts (auto) (2.0-8.3) x10*3/uL Absolute Nucleated RBC (0.0-0.012) X10*3/uL Nucleated RBC % (auto) (0.0-0.2) /100WBC Smear Tech's Comments Hold Purple Top PT (11.1-13.3) SEC INR (0.9-1.1) Sodium (135-145) mmol/L Potassium (3.3-5.1) mmol/L Chloride (96-108) mmol/L Carbon Dioxide (22-29) mmol/L Anion Gap (12-20) BUN (9-16) mg/dL Creatinine (0.5-1.4) mg/dL Estim Creat Clear Calc Estimated GFR Random Glucose (60-115) mg/dL Lactic Acid 1.8 (0.5-2.0) mmol/L Calcium (8.4-10.2) mg/dL Magnesium (1.6-2.6) mg/dL Total Bilirubin (0.0-1.0) mg/dL AST (5-37) U/L ALT (0-40) U/L Alkaline Phosphatase (39-117) U/L Total Creatine Kinase (38-174) U/L Troponin I High Sens (<3.5-35.0) ng/L B-Natriuretic Peptide (<100) pg/mL Total Protein (6.5-8.0) g/dL Albumin (3.5-5.0) g/dL Lipase (8-78) U/L Beta-Hydroxybutyrate 0.13 (0.02-0.27) mmol/L Urine Color Yellow Urine Appearance Clear Urine pH 6.5 (5.0-9.0) Ur Specific [place] 1.020 (1.005-1.025) Urine Protein 30 (1+) H (Neg-Trace) mg/dL Urine Glucose (UA) 100 H (Negative) mg/dL Urine Ketones Negative (Negative) mg/dL Urine Blood Negative (Negative) Urine Nitrite Negative (Negative) Ur Leukocyte Esterase Negative (Negative) Urine RBC 0-2 (0-2) /HPF Urine WBC 0-5 (0-5) /HPF Ur Squamous Epith Cells 0-2 (0-2) /HPF Urine Bacteria None Seen (None Seen) Hyaline Casts 0-2 (0-2) /LPF Salicylates < 5.0 L (15-30) mg/dL Acetaminophen < 3 (<30) mcg/mL Ethyl Alcohol < 10 mg/dL Influenza Type A (PCR) (Negative) Influenza Type B (PCR) (Negative) RSV RNA Qual (PCR) (Negative) SARS-CoV-2 RNA (RT-PCR) (Negative) Independent Interpretation I performed an independent interpretation of an: EKG (Ventricular rate of 76, [place] prolonged 244, QT normal, QTC normal. EKG with sinus rhythm and a 1st degree AV block no ST elevations or inversions concerning for acute ischemia.), Plain X-Ray (XR/XR chest 1V IMPRESSION: No acute abnormality. ) and CT Scan Radiology Impression Discussion of test interpretation with radiology: I have reviewed the radiologist's reading. External Record Review External record reviewed: Inpatient record, Office record, Outpatient record, Prior outpatient labs, Prior outpatient radiology, Primary care record and Outside ED record Chronic Conditions Patient?s care impacted by: Diabetes and Other (Hyperlipidemia, CAD) Critical Care Time Critical Care Time Critical Care Time: Yes Total Critical Care Time: 35 Attestation: I attest to this time spent taking care of the patient, obtaining history, physical, reviewing labs, imaging, speaking to my attending, speaking to specialist. Discharge Plan Discharge Clinical Impression: Confusion, Abdominal pain, Unsteady gait, Physical deconditioning, Shortness of breath Patient Disposition: Still a Patient Prescriptions: No Action fluticasone propionate 50 mcg/actuation spray,suspension 1 spray intranasal DAILY Qty: 16 2RF (DME) pen needle, diabetic [Lite Touch Insulin Pen [place]] 31 gauge x 5/16 needle See Rx Instructions .Route Qty: 100 12RF Rx Instructions: Use 3 times daily (DME) lancets [OneTouch Delica Lancets] 33 gauge misc See Rx Instructions .Route Qty: 100 12RF Rx Instructions: As directed 3 times a day cyanocobalamin (vitamin B-12) 1,000 mcg tablet 1,000 mcg PO DAILY 90 Days Qty: 90 3RF metoprolol tartrate 50 mg tablet 50 mg PO BID Qty: 180 1RF paroxetine HCl 40 mg tablet 40 mg PO DAILY Qty: 90 0RF cholecalciferol (vitamin D3) 50 mcg (2,000 unit) capsule 50 mcg PO DAILY 90 Days Qty: 90 3RF albuterol sulfate 90 mcg/actuation HFA aerosol inhaler 2 puff PO Q4-6H PRN (Reason: for wheezing) Qty: 8.5 2RF metoclopramide HCl [Reglan] 10 mg tablet 10 mg PO AC PRN (Reason: nausea and vomiting) Qty: 20 0RF insulin glargine [Lantus Solostar U-100 Insulin] 100 unit/mL (3 mL) insulin pen 80 unit subcut BID 30 Days Qty: 48 3RF OneTouch Ultra Blue Test Strip Strip 1 strip miscellaneous TID Qty: 100 3RF (DME) blood-glucose meter [OneTouch Ultra2 Meter] Mis See Rx Instructions .ROUTE TID Qty: 1 Rx Instructions: test 3 times per day (DME) OneTouch Ultra Test Strip See Rx Instructions .Route Qty: 100 8RF Rx Instructions: test 3 times per day lisinopril 10 mg tablet 10 mg PO DAILY Qty: 90 0RF atorvastatin 80 mg tablet 80 mg PO DAILY Qty: 90 0RF aspirin 81 mg tablet,delayed release (DR/EC) 81 mg PO DAILY Qty: 90 0RF (DME) pen needle, diabetic [BD Ultra-Fine Orig Pen Needle] 29 gauge x 1/2 needle See Rx Instructions .Route Qty: 100 12RF Rx Instructions: 3 times daily (DME) pen needle, diabetic [BD Ultra-Fine Brittany Pen Needle] 32 gauge x 5/32 needle See Rx Instructions .Route Qty: 1200 4RF Rx Instructions: test 3 times daily omeprazole 40 mg capsule,delayed release(DR/EC) 40 mg PO DAILY 30 Days Qty: 30 3RF (DME) SHAHLA See Rx Instructions .Route .MEDSUPPLY Qty: 1 0RF Rx Instructions: As directed gabapentin 800 mg tablet 800 mg PO TID 30 Days Qty: 90 1RF dicyclomine 20 mg tablet 20 mg PO QID PRN (Reason: abdominal pain) Qty: 20 0RF ondansetron HCl 4 mg tablet 4 mg PO Q6H PRN (Reason: nausea and vomiting) Qty: 14 0RF polyethylene glycol 3350 [Miralax] 17 gram/dose powder 17 g PO DAILY PRN (Reason: Constipation) insulin lispro [Humalog KwikPen Insulin] 100 unit/mL insulin pen 15 - 20 unit subcut BID (DME) SHOWER CHAIR See Rx Instructions .Route .MEDSUPPLY Qty: 1 0RF Rx Instructions: As directed ([facility]) SHOWER CHAIR See Rx Instructions .Route .MEDSUPPLY Qty: 1 0RF Rx Instructions: As directed ([facility]) insulin syr/ndl U100 half gareth 0.5 mL 30 gauge x 5/16 syringe See Rx Instructions .Route Qty: 100 12RF Rx Instructions: Use 4 times daily oxybutynin chloride 10 mg tablet extended release 24hr 10 mg PO DAILY Qty: 90 1RF tamsulosin [Flomax] 0.4 mg capsule 0.4 mg PO BEDTIME Qty: 90 2RF
[2023-05-09 11:56] LABS: Basophils Percent Auto 0.2 % (0-2); Eosinophils Absolute Auto 0.1 X10*3/uL (0.0-0.4); Eosinophils Percent Auto 0.5 % (0-4); Hematocrit 35.3 % (42.0-52.0); Hemoglobin 12.2 g/dl (14.0-18.0); Imm Gran Abs Auto 0.03 X10*3/uL (0.00-0.03); Imm Gran Pct Auto 0.3 % (0.0-0.4); Lymphocytes Absolute Auto 1.7 X10*3/uL (1.2-4.9); Lymphocytes Percent Auto 18.6 % (20-40); MANUAL DIFF FLAG SCAN; Mean Corpuscular HGB Conc 34.6 g/dl (31.0-36.0); Mean Corpuscular Volume 89.6 fL (80.0-98.0); Monocytes Absolute Auto 0.7 X10*3/uL (0.1-1.2); Monocytes Percent Auto 7.5 % (2-11); Neutrophils Absolute Auto 6.6 x10*3/uL (2.0-8.3); Neutrophils Percent Auto 72.9 % (45-73); PLT CLUMP 1; Red Blood Count 3.94 X10*6/uL (4.60-5.80); Red Cell Distribution Width 12.3 % (11.0-16.0); SCAN SMEAR FLAG 1
[2023-05-09 12:18] LABS: B Type Natriuretic Peptide 88 pg/mL (<100)
[2023-05-09 12:22] LABS: Platelet Count 158 X10*3/uL (160-400); White Blood Count 9.1 X10*3/uL (4.8-10.8)
[2023-05-09 12:23] LABS: SLIDE REVIEW VERIFIED
[2023-05-09 12:25] LABS: Influenza A PCR NEGATIVE (Negative); Influenza B PCR NEGATIVE (Negative); Resp Syncy Virus RNA Qual PCR NEGATIVE (Negative); SARS COV2 PCR INHOUSE NEGATIVE (Negative)
[2023-05-09 12:30] LABS: Alanine Aminotransferase 25 U/L (0-40); Albumin Level 3.7 g/dL (3.5-5.0); Alkaline Phosphatase 112 U/L (39-117); Anion Gap 25 (12-20); Aspartate Amino Transferase 21 U/L (5-37); Bilirubin Total 0.7 mg/dL (0.0-1.0); Blood Urea Nitrogen 23 mg/dL (9-16); Calcium 9.2 mg/dL (8.4-10.2); Carbon Dioxide 25 mmol/L (22-29); Chloride 98 mmol/L (96-108); Creatinine Clr Calc Pharmacy 80.7; Estimated Glomerular Filt Rate > 60; Glucose Random 273 mg/dL (60-115); Lipase 14 U/L (8-78); Magnesium 2.1 mg/dL (1.6-2.6); Potassium 4.6 mmol/L (3.3-5.1); Sodium 143 mmol/L (135-145); Troponin-I High Sensitivity 7.3 ng/L (<3.5-35.0)
[2023-05-09 12:51] LABS: INTERNATIONAL NORM RATIO 0.9 (0.9-1.1); Prothrombin Time 11.4 SEC (11.1-13.3)
[2023-05-09 13:43] LABS: Lactic Acid 1.8 mmol/L (0.5-2.0)
[2023-05-09] MEDS: LORazepam 0.5 MG TABLET PO (14:31)
[2023-05-09] MEDS: 0.9 % Sodium Chloride 1,000 ML 999 ML IV (14:31)
[2023-05-09 14:35] VITALS: BP 160/80; PULSE 80; RESP 16; TEMP 37.2; O2SAT 98
[2023-05-09 14:37] LABS: Acetaminophen LAB < 3 mcg/mL (<30); Salicylate < 5.0 mg/dL (15-30)
[2023-05-09 14:43] LABS: Beta-Hydroxybutyrate 0.13 mmol/L (0.02-0.27)
[2023-05-09 15:53] LABS: Appearance Urine Clear; Color Urine Yellow; Glucose Urine UA 100 mg/dL (Negative); Leukocyte Esterase Urine Negative (Negative); Nitrite Urine Negative (Negative); PH 6.5 (5.0-9.0); UMIC TRIGGER UACC YES; Urine Blood Negative (Negative); Urine Ketones Negative (Negative); Urine Protein 30 (1+) mg/dL (Neg-Trace)
[2023-05-09 16:03] LABS: Bacteria Urine None Seen (None Seen); Hyaline Casts Urine 0-2 /LPF (0-2); RBC Urine 0-2 /HPF (0-2); Squamous Epithelial Cell Urine 0-2 /HPF (0-2); WBC Urine 0-5 /HPF (0-5)
[2023-05-09 16:15] LABS: Ethanol < 10 mg/dL
--- NOTE | 2023-05-09 16:56 | PC.NURSE ---
Pt getting himself dressed and attempting to leave, pt redirected to room, camera placed on patient at this time
[2023-05-09] MEDS: LORazepam 2 MG/ML VIAL 1 MG IVPUSH (17:15)
--- NOTE | 2023-05-09 18:38 | MHC.EDTECH ---
Patient given dinner tray
--- NOTE | 2023-05-09 21:11 | MHC.CM.ED ---
CM received consult from Madelyn LISA. CM met with patient with manager commercial. Pt is alert to name. Does not know where he is. Could not tell CM where he lived initially, but then remembered the city and then eventually, his address. Pt could tell CM who his PCP is. Pt tells CM that he has a NEWSPAPER MANAGING EDITOR, who comes for 1 hour/dayx5. All conversations seemed to take him some time to find the answer. manager commercial confirms that patient seems confused. Pt lives alone. Has a walker. No HCP on file. Son, Manuel Boo ([phone]). PA spoke with son, who stated that he does not see his father very often, but thinks he is confused and depressed. Pt is unsteady on his feet. PT evaluation is pending. Psych consult pending. No STR referrals placed pending psych evaluation. CM will follow for safe discharge plan.
--- NOTE | 2023-05-10 04:41 | PC.NURSE ---
Pt has been resting in bed, periodically attempting to stand, asking for the bathroom. Pt has been assisted to the commode several times. Pt has a camera and a sitter in place at this time due to high fall risk and high flight risk status. Pt has no complaints.
[2023-05-10 06:22] VITALS: BP 158/96; PULSE 80; RESP 14; TEMP 36.4; O2SAT 97
--- NOTE | 2023-05-10 08:38 | PC.NURSE ---
pt sitting upright in recliner in no apparent distress at this time. no sob/wob noted. respirations even and unlabored. camera/1:1 sitter present for safety precautions. call gallagher placed within reach.
[2023-05-10 09:21] VITALS: BP 159/82; PULSE 79; RESP 16; TEMP 36.8; O2SAT 97
--- NOTE | 2023-05-10 09:21 | PC.NURSE ---
PT eval completed at this time. pt requires a 1:1 assist while using walker for an assistive device. pt ambulates w/ a slow/shuffling gait. no sob/wob noted. respirations even and unlabored.
[2023-05-10 09:24] VITALS: BP 159/82; PULSE 76; O2SAT 94
--- NOTE | 2023-05-10 12:59 | PC.NURSE ---
pt becoming increasingly agitated d/t not having ashley españa completed yet. pt states that he wants to go home and that he will start yelling if he does not leave soon. ED provider notified/aware.
--- NOTE | 2023-05-10 12:59 | MHC.CM.ED ---
Addendum entered by Dede Bush 05/10/23 15:18: Spoke with son Manuel to confirm information given by pt: per Manuel, pt lives alone but has a sister that lives below him who assists at times as well as HISTOLOGY SUPERVISOR's who help w/cleaning and errands. Manuel states his father needs time to process questions and may not understand what is being asked. His sister, (not spouse) confirms this. Manuel will be in to visit on 05/10 and will assist w/CM questions as he knows how to speak with pt to elicit information. We will discuss completion of a HCP as well. CM to follow Original Note: Met w/pt using German interpretor: Discussed PT findings recommending STR. Pt verbalizing understanding of STR recommendation but states he is in a hurry to go home. Pt will need to be seen by psych to ensure he has insight into his needs and can make his own decisions. Broad STR referrals made in anticipation of pt requiring placement. Pt's payor, [employer], does not give auth on weekends and pt will need to board in ED. Call placed to spouse to inform her of plan. ED CM to follow.
[2023-05-10] MEDS: LORazepam 0.5 MG TABLET PO (13:41)
--- NOTE | 2023-05-10 13:41 | PC.NURSE ---
medication administered per provider order. effectiveness pending. 1:1 sitter remains present. plan of care ongoing.
[2023-05-10 13:44] VITALS: BP 178/71; PULSE 79; RESP 16; TEMP 37.1; O2SAT 98
--- NOTE | 2023-05-10 16:25 | PM.PSYCN ---
History of Present Illness Date of Service: 05/10/2023 Chief Complaint: ABD PAIN Reason for Consult: ? confusion and ?ability to decide to refuse short term rehab recommended by ER providers Requesting physician: Breann Monahan Discussed with referring provider: Yes Sources of Information: patient interviewed, chart reviewed and crisis/core team assessment reviewed (coordinated care with care team Daphne and had link trainer mechanic) Additional Sources of Information: called sister Indy with help of link trainer mechanic HPI Narrative: 67 yo Single HM presents to ER for intermittent abdominal and back pain- nursing reports patient can barely walk- ER doc finds no acute finding but there is some decline in self care/adls and ? confusion- ? deconditioned so short term rehab recommended. He has no HCP but has dr Persaud for pcp - His son is at work and was called by a few people at hospital and is reportedly not very involved. However- I want to see if we can engage him in helping father access care before determining capacity to refuse placement in short term rehab. Pt reports never having had screening colonscopy but co abd pain and back pain- Sister Indy reports that he has no patience at doctors and will leave dr Khan's office before being seen. Indy his sister is 74 and reports she can not support him as she has her own flooring machine feeder and is legally blind. Though she would gladly engage pt's son Manuel to see if he could help father. 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 He denies hx of mental health issues, (sister reports anxiety and that is problem) He had hx of etoh use 18 years ago - sober since no longer drinks. He knows he has diabetes and takes insulin but does not know of other conditions hx of confusion and agiation on opiates (see allergies report) Past Psychiatric History: hx of ?untreated anxiety and hx of etoh use years ago , hx on diagnoses of MDD? Medical Evaluation Reviewed: Yes decondtioned due to recent covid? with ongoing various somatic complaints Personal & Social History: lives alone and has flooring machine feeder- limited social contacts? sister , and more infrequently son. Review of Systems Review of Systems reviewed most recent cpe with dr Persaud 05/02/23! which noted no depression and no anxiety on 2 rating scales however no mention about neuro status/cognition - outside of needing cane/walker due to possible diabetic neuropathy [facility] Medical History Gastritis and duodenitis Vitamin B12 deficiency Hyperkalemia Intertrigo Major depressive disorder, recurrent Benign prostatic hyperplasia with urinary frequency Constipation Obstructive sleep apnea Vitamin D deficiency Diabetic polyneuropathy Diabetes mellitus Obesity (BMI 30-39.9) Benign essential hypertension Pure hypercholesterolemia Coronary artery disease Surgical History Hx of cataract extraction (~2011) History of quadruple bypass (~2005) Hx of cystoscopy History of prostate surgery (~12/04/10) Hx of cholecystectomy (~2007) Diagnostics Vital Signs (24Hr): Vital Signs - 24 hr 05/10/23 06:22 05/10/23 09:21 05/10/23 09:24 Temperature 97.5 F 98.2 F Pulse Rate 80 79 76 Respiratory Rate 14 16 Blood Pressure 158/96 H 159/82 H 159/82 H Pulse Oximetry 97 97 94 Oxygen Delivery Method Room Air Room Air 05/10/23 13:44 Temperature 98.7 F Pulse Rate 79 Respiratory Rate 16 Blood Pressure 178/71 H Pulse Oximetry 98 Oxygen Delivery Method Room Air BMI result Body Mass Index 36.6 Labs 05/09/23 11:47 05/09/23 11:47 Labs: Laboratory Results - last 48 hr 05/09/23 05/09/23 05/09/23 11:23 11:47 12:35 WBC 9.1 RBC 3.94 L Hgb 12.2 L Hct 35.3 L MCV 89.6 MCH 31.0 MCHC 34.6 RDW 12.3 Plt Count 158 L MPV Not Reportable Immature Gran % (Auto) 0.3 Neut % (Auto) 72.9 Lymph % (Auto) 18.6 L Harlan % (Auto) 7.5 Eos % (Auto) 0.5 Baso % (Auto) 0.2 Lymph # (Auto) 1.7 Harlan # (Auto) 0.7 Eos # (Auto) 0.1 Baso # (Auto) 0.0 Abs Immat Gran (auto) 0.03 Absolute Neuts (auto) 6.6 Absolute Nucleated RBC 0.000 Nucleated RBC % (auto) 0.0 Smear Tech's Comments VERIFIED Hold Purple Top SEE NOTE PT 11.4 INR 0.9 Sodium 143 Potassium 4.6 Chloride 98 Carbon Dioxide 25 Anion Gap 25 H BUN 23 H Creatinine 0.97 Estim Creat Clear Calc 80.7 Estimated GFR > 60 Random Glucose 273 H Lactic Acid Calcium 9.2 D Magnesium 2.1 Total Bilirubin 0.7 AST 21 ALT 25 Alkaline Phosphatase 112 Total Creatine Kinase 95 Troponin I High Sens 7.3 B-Natriuretic Peptide 88 Total Protein 7.0 Albumin 3.7 Lipase 14 Beta-Hydroxybutyrate Urine Color Urine Appearance Urine pH Ur Specific [place] Urine Protein Urine Glucose (UA) Urine Ketones Urine Blood Urine Nitrite Ur Leukocyte Esterase Urine RBC Urine WBC Ur Squamous Epith Cells Urine Bacteria Hyaline Casts Salicylates Acetaminophen Ethyl Alcohol Influenza Type A (PCR) NEGATIVE Influenza Type B (PCR) NEGATIVE RSV RNA Qual (PCR) NEGATIVE SARS-CoV-2 RNA (RT-PCR) NEGATIVE 05/09/23 05/09/23 05/09/23 12:43 13:24 15:36 WBC RBC Hgb Hct MCV MCH MCHC RDW Plt Count MPV Immature Gran % (Auto) Neut % (Auto) Lymph % (Auto) [place] % (Auto) Eos % (Auto) Baso % (Auto) Lymph # (Auto) [place] # (Auto) Eos # (Auto) Baso # (Auto) Abs Immat Gran (auto) Absolute Neuts (auto) Absolute Nucleated RBC Nucleated RBC % (auto) Smear Tech's Comments Hold Purple Top PT INR Sodium Potassium Chloride Carbon Dioxide Anion Gap BUN Creatinine Estim Creat Clear Calc Estimated GFR Random Glucose Lactic Acid 1.8 Calcium Magnesium Total Bilirubin AST ALT Alkaline Phosphatase Total Creatine Kinase Troponin I High Sens B-Natriuretic Peptide Total Protein Albumin Lipase Beta-Hydroxybutyrate 0.13 Urine Color Yellow Urine Appearance Clear Urine pH 6.5 Ur Specific [place] 1.020 Urine Protein 30 (1+) H Urine Glucose (UA) 100 H Urine Ketones Negative Urine Blood Negative Urine Nitrite Negative Ur Leukocyte Esterase Negative Urine RBC 0-2 Urine WBC 0-5 Ur Squamous Epith Cells 0-2 Urine Bacteria None Seen Hyaline Casts 0-2 Salicylates < 5.0 L Acetaminophen < 3 Ethyl Alcohol < 10 Influenza Type A (PCR) Influenza Type B (PCR) RSV RNA Qual (PCR) SARS-CoV-2 RNA (RT-PCR) Imaging Radiology Impressions: ITS Impressions Chest X-Ray 05/09/23 10:20 IMPRESSION: No acute abnormality. Head CT 05/09/23 20:27 IMPRESSION: No acute intracranial abnormality. There is moderate microvascular ischemic change. Mental Status Exam Mental Status Exam Patient Appearance: Fatigued and Disheveled Patient Orientation: Person, Place, Time and Situation Level of Consciousness: Awake and Appropriate Patient Behavior: Appropriate, Dependent, Passive and Wandering Mood Description: Calm and Anxious Affect Description: Blunted Patient Cognition Impaired: Yes Ability to Follow Directions: Fair Speech Pattern: Clear and Impoverished Hallucinations: None Delusions: Not Present Thought Process: Intact Thought Content: positive for Poverty of Content Medications Medications see note from pcp 05/02 Allergies Allergies Allergy/AdvReac Type Severity Reaction Status Date / Time hydromorphone [Dilaudid] AdvReac Unknown confusion Verified 05/09/23 10:03 From DILAUDID AdvReac Severe CONFUSION/H Uncoded 05/02/23 17:03 ALLUCIATION S From PERCOCET AdvReac Intermediate AGITATION Uncoded 05/02/23 17:03 Assessment & Plan Assessment & Plan (1) Confusion with non-focal neuro exam: Status: Acute Code(s): R41.0 - Disorientation, unspecified Assessment and Plan: Seems to understand partially but has no clear reason why he refusing rehab other than wanting to be home- (2) Physical deconditioning: Status: Acute Code(s): R53.81 - Other malaise (3) Post covid-19 condition, unspecified: Status: Acute Code(s): U09.9 - Post COVID-19 condition, unspecified Plan hold over night for further assessment of cognition and coordinate care with his son POssible do a MOCA with patient tomorrow with link trainer mechanic Total time managing care of this patient today ____ minutes. Patient educated on: medical condition Informed Consent: further education needed
--- NOTE | 2023-05-10 16:51 | MHC.EDTECH ---
Patient given a shower
[2023-05-10] MEDS: OLANZapine 10 MG TABLET PO (21:19)
[2023-05-10 21:20] VITALS: BP 162/78; PULSE 95; RESP 20; TEMP 36.6; O2SAT 97
--- NOTE | 2023-05-10 21:23 | PC.NURSE ---
Pt very restless, stating I am going to leave , Pt unsteady on feet, ambulated to BR with one assist but did not use BR. Needs multiple redirection with camera in place. Provider Mahendra made aware, new order given per MAY.
[2023-05-11 01:35] LABS: Glucose, Whole Blood 350 mg/dL (60-115)
--- NOTE | 2023-05-11 01:38 | PC.NURSE ---
Pt restless again, reports he has to use BR and on assist Pt was not able to. Bladder scan results >210 mL.
--- NOTE | 2023-05-11 01:49 | MHC.EDTECH ---
POC was taken for patient at 01:20 with a result of 320. RN aware
--- NOTE | 2023-05-11 01:51 | PC.NURSE ---
POC 350, Med rec complete by list. Provider Mahendra made aware.
[2023-05-11 03:27] VITALS: BP 152/69; PULSE 98; RESP 18; O2SAT 96
[2023-05-11] MEDS: Insulin Glargine,Hum.rec.anlog 100 UNIT/ML 10 ML VIAL 80 UNIT SUBCUT ×2 (03:29→09:47)
[2023-05-11] MEDS: Metoprolol Tartrate 50 MG TABLET PO ×2 (03:29→09:48)
[2023-05-11] MEDS: Gabapentin 400 MG CAPSULE 800 MG PO ×2 (03:29→09:48)
[2023-05-11] MEDS: Docusate Sodium 100 MG CAPSULE PO ×2 (03:29→09:48)
[2023-05-11 03:36] LABS: Glucose, Whole Blood 333 mg/dL (60-115)
--- NOTE | 2023-05-11 03:43 | PC.NURSE ---
Pt incontinent of large amount of urine. Incontinent care provided.
--- NOTE | 2023-05-11 03:43 | MHC.EDTECH ---
POC- 333 AT 03:25
[2023-05-11 06:45] LABS: Glucose, Whole Blood 279 mg/dL (60-115)
[2023-05-11 09:46] VITALS: BP 155/73; PULSE 79; RESP 16; O2SAT 96
[2023-05-11] MEDS: Insulin Lispro 100 UNIT/ML 3 ML VIAL SUBCUT (09:47)
[2023-05-11] MEDS: Cholecalciferol (Vitamin D3) 25 MCG TABLET 50 MCG PO (09:48)
[2023-05-11] MEDS: Atorvastatin Calcium 80 MG TABLET PO (09:48)
[2023-05-11] MEDS: Aspirin Enteric Coated 81 MG TABLET.DR PO (09:48)
[2023-05-11] MEDS: Omeprazole 40 MG CAPSULE.DR PO (09:48)
[2023-05-11] MEDS: lisinopriL 10 MG TABLET PO (09:48)
[2023-05-11] MEDS: Cyanocobalamin (Vitamin B-12) 1,000 MCG TABLET 1000 MCG PO (10:15)
--- NOTE | 2023-05-11 12:08 | MHC.CM.ED ---
Pt has been accepted to [facility] in [facility] for a transfer time of 3:30pm via [facility]. Family in to visit and updated on plan. HCP completed and faxed to [facility]. Pt verbalizes understanding of d/c plan
[2023-05-11 13:30] LABS: Glucose, Whole Blood 79 mg/dL (60-115)
--- NOTE | 2023-05-11 14:29 | P.CNPS_ITS ---
History of Present Illness Date of Service: 05/11/23 Chief Complaint: ABD PAIN Reason for Consult: ? competency - Did [place] on patient that wasn't even scorable- pt was distracted by some pain ED recommends short term rehab for deconditioning they will also need to assess OT pt's safety to go home independtly - Currently pt refusing to go - envoking HCP as pt seems to have no good understanding of his condition or the recommendation- Discussed with referring provider: No (but discussed today with case folder and pt's son) Sources of Information: patient interviewed Additional Sources of Information: MOCA POOR RESPONSE CAN'T BE SCORED - WOULD SHOW SEVERE DEMENTIA AT THIS TIME HPI Narrative: SEEN SECOND DAY IN A ROW NO BETTER, MAYBE WORSE TODAY Past Psychiatric History: hx of ?untreated anxiety and hx of etoh use years ago , hx on diagnoses of MDD? Personal & Social History: SISTER AND SON CAME IN TO SUPPORT DECISION TO GET MORE FURTHER CARE Review of Systems Review of Systems CO PAIN IN BACK AND STOMACH ONGOING - [facility] Medical History Gastritis and duodenitis Vitamin B12 deficiency Hyperkalemia Intertrigo Major depressive disorder, recurrent Benign prostatic hyperplasia with urinary frequency Constipation Obstructive sleep apnea Vitamin D deficiency Diabetic polyneuropathy Diabetes mellitus Obesity (BMI 30-39.9) Benign essential hypertension Pure hypercholesterolemia Coronary artery disease Surgical History Hx of cataract extraction (~2011) History of quadruple bypass (~2005) Hx of cystoscopy History of prostate surgery (~12/04/10) Hx of cholecystectomy (~2007) Diagnostics Vital Signs (24Hr): Vital Signs - 24 hr 05/10/23 21:20 05/11/23 03:27 05/11/23 09:46 Temperature 97.9 F Pulse Rate 95 98 79 Respiratory Rate 20 18 16 Blood Pressure 162/78 H 152/69 H 155/73 H Pulse Oximetry 97 96 96 Oxygen Delivery Method Room Air Room Air BMI result Body Mass Index 36.6 Labs 05/09/23 11:47 05/09/23 11:47 Labs: Laboratory Results - last 48 hr 05/09/23 05/09/23 05/09/23 12:43 13:24 15:36 POC Glucose Beta-Hydroxybutyrate 0.13 Urine Color Yellow Urine Appearance Clear Urine pH 6.5 Ur Specific [place] 1.020 Urine Protein 30 (1+) H Urine Glucose (UA) 100 H Urine Ketones Negative Urine Blood Negative Urine Nitrite Negative Ur Leukocyte Esterase Negative Urine RBC 0-2 Urine WBC 0-5 Ur Squamous Epith Cells 0-2 Urine Bacteria None Seen Hyaline Casts 0-2 Salicylates < 5.0 L Acetaminophen < 3 Ethyl Alcohol < 10 05/11/23 05/11/23 05/11/23 01:29 03:30 06:40 POC Glucose 350 H* 333 H 279 H Beta-Hydroxybutyrate Urine Color Urine Appearance Urine pH Ur Specific [place] Urine Protein Urine Glucose (UA) Urine Ketones Urine Blood Urine Nitrite Ur Leukocyte Esterase Urine RBC Urine WBC Ur Squamous Epith Cells Urine Bacteria Hyaline Casts Salicylates Acetaminophen Ethyl Alcohol 05/11/23 13:25 POC Glucose 79 Beta-Hydroxybutyrate Urine Color Urine Appearance Urine pH Ur Specific [place] Urine Protein Urine Glucose (UA) Urine Ketones Urine Blood Urine Nitrite Ur Leukocyte Esterase Urine RBC Urine WBC Ur Squamous Epith Cells Urine Bacteria Hyaline Casts Salicylates Acetaminophen Ethyl Alcohol Imaging Radiology Impressions: ITS Impressions Chest X-Ray 05/09/23 10:20 IMPRESSION: No acute abnormality. Head CT 05/09/23 20:27 IMPRESSION: No acute intracranial abnormality. There is moderate microvascular ischemic change. Mental Status Exam Mental Status Exam Narrative: LYING IN BED, NOT ABLE TO COOPERATE FULLY WITH MOCA DUE TO DISTRACTION FROM PAIN AND LIMITED INTEREST IN COOPERATIVE- Patient Appearance: Fatigued, Disheveled and Unkempt Patient Orientation: Person, Place, Time and Situation Level of Consciousness: Awake Patient Behavior: Dependent, Passive, Distractible and Poor Eye Contact Mood Description: Anxious Affect Description: Appropriate Patient Cognition Impaired: Yes Ability to Follow Directions: Fair Speech Pattern: Poor Articulation and Long Pauses Memory Description: Immediate Impaired Hallucinations: None Delusions: Not Present Thought Content: positive for [place] Judgement: Poor Medications Medications Current Medications Albuterol Sulfate (Albuterol Sulfate 90 Mcg 8 Gm Inhaler) 2 puff INHALE Q4H PRN PRN Reason: for wheezing Aspirin (Aspirin Enteric Coated 81 Mg Tablet.) 81 mg PO DAILY [facility] Last Admin: 05/11/23 09:48 Dose: 81 mg Atorvastatin Calcium (Atorvastatin Calcium 80 Mg Tablet) 80 mg PO DAILY [facility] Last Admin: 05/11/23 09:48 Dose: 80 mg Cyanocobalamin (Cyanocobalamin (Vitamin B-12) 1,000 Mcg Tablet) 1,000 mcg PO DAILY [facility] Last Admin: 05/11/23 10:15 Dose: 1,000 mcg Dextrose (Dextrose 50 % 25 Gm/50 Ml Syringe) 25 gm IVPUSH Q15M PRN; Protocol PRN Reason: per Hypoglycemia Standing Ord. Docusate Sodium (Docusate Sodium 100 Mg Capsule) 100 mg PO BID [facility] Last Admin: 05/11/23 09:48 Dose: 100 mg Gabapentin (Gabapentin 400 Mg Capsule) 800 mg PO BID [facility] Last Admin: 05/11/23 09:48 Dose: 800 mg Glucose (Glucose Gel 15 Gm Gel..Gram.) 15 gm PO Q15M PRN; Protocol PRN Reason: per Hypoglycemia Standing Ord. Hydroxyzine HCl (Hydroxyzine Hcl 25 Mg Tablet) 25 mg PO Q6H PRN PRN Reason: anxiety Insulin Glargine (Insulin Glargine,Hum.Rec.Anlog 100 Unit/Ml 10 Ml Vial) 80 unit SUBCUT BID [facility] Last Admin: 05/11/23 09:47 Dose: 80 unit Insulin Human Lispro (Insulin Lispro 100 Unit/Ml 3 Ml Vial) 0 unit SUBCUT QIDACHS [facility]; Protocol Last Admin: 05/11/23 13:32 Dose: Not Given Lisinopril (Lisinopril 10 Mg Tablet) 10 mg PO DAILY [facility]; Protocol Last Admin: 05/11/23 09:48 Dose: 10 mg Metoprolol Tartrate (Metoprolol Tartrate 50 Mg Tablet) 50 mg PO BID [facility]; Protocol Last Admin: 05/11/23 09:48 Dose: 50 mg Omeprazole (Omeprazole 40 Mg Capsule.Dr) 40 mg PO DAILY [facility] Last Admin: 05/11/23 09:48 Dose: 40 mg Vitamin D (Cholecalciferol (Vitamin D3) 25 Mcg Tablet) 50 mcg PO DAILY [facility] Last Admin: 05/11/23 09:48 Dose: 50 mcg Allergies Allergies Allergy/AdvReac Type Severity Reaction Status Date / Time hydromorphone [Dilaudid] AdvReac Unknown confusion Verified 05/09/23 10:03 From DILAUDID AdvReac Severe CONFUSION/H Uncoded 05/02/23 17:03 ALLUCIATION S From PERCOCET AdvReac Intermediate AGITATION Uncoded 05/02/23 17:03 Assessment & Plan Assessment & Plan (1) Confusion with non-focal neuro exam: Status: Acute Code(s): R41.0 - Disorientation, unspecified Assessment and Plan: POOR MOCA SCORE DOES NOT APPEAR COMPETENT RECOMMEND INVOKING HCP =- (2) Physical deconditioning: Status: Acute Code(s): R53.81 - Other malaise Total time managing care of this patient today ____ minutes. Patient educated on: medical condition Guardian/Caregiver educated on: medical condition and other (FAMILY UNDERSTANDS) Informed Consent: does not understand (PT DOES NOT UNDERSTAND RISK/BENEFIT)
[2023-05-11 14:44] VITALS: BP 111/36; PULSE 79; RESP 16; TEMP 36.4; O2SAT 96
[2023-05-11 16:15] VITALS: BP 157/72; PULSE 75; RESP 16; O2SAT 97
== END 2023-05-11 16:27 | disposition home or self-care (01) ==
PROVIDERS: Physician Assistant; Emergency Provider Emergency Medicine Emergency Medical Services; PCP Internal Medicine
DX: R41.0 Disorientation, unspecified (principal); R10.13 Epigastric pain; R26.81 Unsteadiness on feet; R53.81 Other malaise; R06.02 Shortness of breath; R45.1 Restlessness and agitation; Z11.52 Encounter for screening for COVID-19; Z20.828 Contact with and (suspected) exposure to other viral communicable diseases; E11.9 Type 2 diabetes mellitus without complications; F10.10 Alcohol abuse, uncomplicated; Y90.0 Blood alcohol level of less than 20 mg/100 ml; J44.9 Chronic obstructive pulmonary disease, unspecified; E78.00 Pure hypercholesterolemia, unspecified; Z79.4 Long term (current) use of insulin; Z79.02 Long term (current) use of antithrombotics/antiplatelets; Z79.899 Other long term (current) drug therapy; Z79.82 Long term (current) use of aspirin
CPT/HCPCS: 0241U; 36415; 70450; 71045; 80053; 80143; 80179; 80307; 81001; 82010; 82550; 82947; 83605; 83690; 83735; 83880; 84484; 85025; 85610; 87040; 93005; 96361; 96374; 97162; 99285; J2060; S9485

== ENCOUNTER → 2023-05-09 10:03 | Outpatient (BNV) | payer OTHER, SELFPAY | PROVIDERS: Emergency Provider Emergency Medicine Emergency Medical Services; PCP Internal Medicine; Visit Provider Internal Medicine | DX: R94.31 Abnormal electrocardiogram [ECG] [EKG] (principal) | CPT/HCPCS: 93010 ==

== ENCOUNTER 2023-06-11 09:58 | Outpatient (AMB) | payer OTHER, SELFPAY ==
[2023-06-11 10:01] VITALS: BP 110/72; PULSE 85; O2SAT 98; BMI 39.9
--- NOTE | 2023-06-11 10:01 | A.OFFPC_ITS ---
Vital Signs 06/11/23 10:01 Height 5 ft 3 in Weight 102.058 kg BMI 39.9 BP 110/72 Blood Pressure Location Lt brachial Position Sitting Pulse 85 Pulse Source Pulse Oximeter Pulse Oximetry (%) 98 Oxygen Delivery Method Room Air Intake Visit Reasons: [facility]/Abdominal Pain 05/10-05/23 Distribution Associate Required: No Graphic Art Technician: Not Required per policy Accompanied by: Self / Same As Patient Allergies hydromorphone [Dilaudid] Adverse Reaction (Unknown, Verified 06/11/23 10:02) confusion From DILAUDID Adverse Reaction (Severe, Uncoded 06/11/23 10:02) CONFUSION/HALLUCIATIONS From PERCOCET Adverse Reaction (Intermediate, Uncoded 06/11/23 10:02) AGITATION Tobacco use date assessed: 05/02/23 Fall risk assessment: No Falls in past year Last assessed Fall Risk: 06/11/23 Dental Screening Dental Screen Date: 05/02/23 HPI HPI Comments History of Present Illness Details 68-year-old male with history of uncontr olled type 2 diabetes, history of alcohol abuse, COPD/or asthma overlap, gastritis, BPH with LUTS, among others presented to the ED on 05/08 for evaluation of epigastric pain, shortness of breath, urinary frequency. In the ED, hematology studies unremarkable. Renal function baseline, electrolyte levels normal. Abdominal exam benign. Head CT negative for acute intracranial abnormality. CXR negative for acute abnormality. He was negative for COVID-19, flu, RSV. Urinalysis unremarkable. He was noted to have unsteady gait.. Per family report, the patient had been confused and spaced out at times with he possible underlying dementia. The patient does live at home alone with [facility] services. He he was recommended for short-term rehab but adamantly refused. The patient was evaluated by Psychiatry recommending patient be held overnight for further assessment of cognition and to coordinate care with his son. Beltrami was performed at bedside with poor response was unable to be scored but felt to show severe dementia had this been able to be scored. The patient was deemed to not have capacity and was recommended for discharge to [facility] for short-term rehab from 05/10 thru 05/25. While at rehab, patient was ambulating with walker and cane. Per report, PT/OT course uneventful and patient met goal for inpatient therapy. Was recommended to discharge home with services. While at the facility, his Lantus was decreased from 80 units twice daily to 30 units twice daily. However patient reports his glucose levels are uncontrolled and has continued using 80 units twice daily. He continues using between 15-20 units of lispro with meals. He states he has known difficulty with excess neck Ng and poor dietary choices. His most recent hemoglobin A1c was 8.8%. Reports fasting glucose is between 200-300. He is looking for assistance with this. He continues to feel unsteady with his gait and states he only has a cane at home and would like a walker. He has not had any falls since returning home but states he does feel unsteady. 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 He states that his legs feel weak bilaterally and he does have neuropathy in the bilateral lower extremities which is affecting his gait. He states that his gabapentin was decreased to 400mg BID at the facility (previously 800mg BID) and reports pain is poorly controlled. He does have referral to Pain Management but has not yet attended an appointment. Mi in discharge medications reviewed and reconciled. However, as noted above patient has resumed Lantus 80 units twice daily though was taking 30 units twice daily while at rehab though diet was controlled during his stay. [facility] Medical History Gastritis and duodenitis Vitamin B12 deficiency Hyperkalemia Intertrigo Major depressive disorder, recurrent Benign prostatic hyperplasia with urinary frequency Constipation Obstructive sleep apnea Vitamin D deficiency Diabetic polyneuropathy Diabetes mellitus Obesity (BMI 30-39.9) Benign essential hypertension Pure hypercholesterolemia Coronary artery disease Surgical History Hx of cataract extraction (~2011) History of quadruple bypass (~2005) Hx of cystoscopy History of prostate surgery (~12/04/10) Hx of cholecystectomy (~2007) Family History Father Lung cancer Mother Diabetes Hypertension Stomach cancer Social History Household Members: None Housing: Apartment Do you presently have visiting nurse or other home services: No Alcohol intake: never Patient Tobacco Use Status: Former Tobacco user Quit Date: 17 years ago e-Cigarette/Vaping Use: Never Used Second Hand Smoke Exposure: No Advance Directives Date on File: 05/09/20 service: No Current occupational status: disabled Cognitive needs: Yes (cane) Hearing needs: No Vision needs: Yes Questionnaire Thrive Questionnaire Date Thrive assessed: 05/02/23 CHEL-7 AMB Questionnaire CHEL-7 Date CHEL - 7 assessed: 05/02/23 Source: Developed by Drs. Steven Miller, Monie Garduno, Trevor Lin and colleagues, with an educational kwabena from [employer]. Review of Systems Const All systems reviewed & are unremarkable except as noted in HPI and below Physical exam (Primary Care) Vital Signs: Last Vital Signs Pulse 85 06/11/23 10:01 BP 110/72 06/11/23 10:01 Pulse Ox 98 06/11/23 10:01 Oxygen Delivery Method Room Air 06/11/23 10:01 BMI result Body Mass Index 39.9 Tobacco/Smoking Status: Tobacco use Status Tobacco use date assessed 05/02/23 06/11/23 10:02 Patient Tobacco Use Status Former Tobacco user 06/11/23 10:02 e-Cigarette/Vaping Use Never Used 06/11/23 10:02 Thrive Assessment: Date of Thrive Assessment Date Thrive assessed 05/02/23 06/11/23 10:02 Const Other: Constitutional - Awake and Alert, No apparent distress Eyes - PERRLA, EOMI Cardiovascular - S1S2, RRR, No edema Respiratory - Normal lung expansion, Normal respiratory effort, No respiratory distress, CTA bilaterally Extremities - no calf tenderness bilaterally, no swelling Skin - Warm/Dry Neurological - Alert & oriented x3. 4/5 strenght ble, difficulty with change of positions, slow/unsteady gait with cane Results Reviewed Results Reviewed: CBC, BMP, UA, CXR, head CT, ED report, Psychiatry consult, [facility] discharge report Assessment and Plan Assessment & Plan (1) Frequent falls: Code(s): R29.6 - Repeated falls Plan: Due to unsteady gait and diabetic polyneuropathy. Discussed that his gabapentin can increase risk of confusion or sedation. However pain levels to remain uncontrolled. Will increase frequency of gabapentin 400 mg 2 t.i.d.. He should follow-up with pain management as scheduled. He is ordered for a walker as he was using this device along with cane while at rehab facility and would greatly benefit from this. He also reports he was not discharged with home services. He is referred for PT/OT for further rehabilitation as well as home safety assessment. (2) Type 2 diabetes mellitus with diabetic neuropathy: Code(s): E11.40 - Type 2 diabetes mellitus with diabetic neuropathy, unspecified Qualifiers: Diabetes mellitus termination clerk insulin use: with termination clerk use Qualified Code(s): E11.40 - Type 2 diabetes mellitus with diabetic neuropathy, unspecified; Z79.4 - [facility] (current) use of insulin Plan: Diabetes uncontrolled with hemoglobin A1c of 8.8%. The patient reports that he has very poor compliance with diabetic diet and frequently snacks. He is referred to [facility] for further assistance with his diabetes including Nutrition Education. At this time will continue Lantus 80 units twice daily as patient has been using this and fasting glucose remains uncontrolled between 200-300. He will continue lispo ssi as directed. Increase gabapentin as above for diabetic polyneuropathy. (3) Unsteady gait: Code(s): R26.81 - Unsteadiness on feet Plan: As above Orders: Referrals Nurse Navigator Referral E11.40 - Type 2 diabetes mellitus with diabetic neuropathy, unspecified, Z79.4 - bed bug exterminator (current) use of insulin [facility] Referral E11.40 - Type 2 diabetes mellitus with diabetic neuropathy, unspecified, R26.81 - Unsteadiness on feet, R29.6 - Repeated falls, Z79.4 - bed bug exterminator (current) use of insulin Medications: New walker As directed 1 ea 0RF E11.40 - Type 2 diabetes mellitus with diabetic neuropathy, unspecified, R26.81 - Unsteadiness on feet, Z79.4 - [facility] (current) use of insulin Changed From gabapentin 800 mg PO BID To gabapentin 400 mg PO TID 270 caps 1RF Coding Level of Care Code Est Pt Level 5 (05605) Diagnoses Frequent falls R29.6 Type 2 diabetes mellitus with diabetic neuropathy, with long-term current use of insulin E11.40; Z79.4 Diabetes mellitus [facility] insulin use: with [facility] use Unsteady gait R26.81 Time Spent (min) 45 Comment Time spent reviewing as above, interview/exam with patient, documentation time
== END 2023-06-11 10:38 | disposition home or self-care (01) ==
PROVIDERS: PCP Internal Medicine; Visit Provider Physician Assistant
DX: R26.81 Unsteadiness on feet (principal); R29.6 Repeated falls; E11.40 Type 2 diabetes mellitus with diabetic neuropathy, unspecified; Z79.4 Long term (current) use of insulin
CPT/HCPCS: 99215

== ENCOUNTER 2023-07-23 16:17 | Emergency (ER) | payer OTHER, SELFPAY ==
[2023-07-23 16:51] VITALS: BP 182/96; PULSE 81; O2SAT 97
[2023-07-23 16:58] LABS: Glucose, Whole Blood 410 mg/dL (60-115)
--- NOTE | 2023-07-23 16:58 | ED.AMS ---
HPI - Altered Mental Status General Chief Complaint: Altered Mental Status Stated Complaint: confused Time Seen by Provider: 07/23/23 16:54 Source: EMS Mode of arrival: EMS History of Present Illness HPI narrative: Patient history of coronary artery disease hypertension BPH brought by EMS for increased confusion patient was admitted here on 05/11/23 and sent to short-term rehab seen by psychiatrist :: POOR MOCA SCORE DOES NOT APPEAR COMPETENT RECOMMEND INVOKING HCP per family patient has not taken his medication for 1 week family very vague nobody aware about taking medication and who is giving the medication Related Data Home Medications ?Medication ?Instructions ?Recorded ?Confirmed polyethylene glycol 3350 17 17 g PO DAILY PRN Constipation 10/09/22 06/15/23 gram/dose oral powder (Miralax) blood-glucose meter ([employer] #1 ea 11/27/22 06/15/23 Ultra2 Meter) atorvastatin 80 mg tablet 80 mg PO DAILY 05/11/23 06/15/23 cholecalciferol (vitamin D3) 50 50 mcg PO DAILY 05/11/23 07/23/23 mcg (2,000 unit) capsule (Vitamin D3) cyanocobalamin (vitamin B-12) 1,000 mcg PO DAILY 05/11/23 07/23/23 1,000 mcg tablet hydroxyzine HCl 25 mg tablet 25 mg PO Q6H PRN anxiety 05/11/23 07/23/23 insulin glargine 100 unit/mL (3 80 unit subcut BID 05/11/23 07/23/23 mL) subcutaneous pen (Lantus Solostar U-100 Insulin) omeprazole 40 mg capsule,delayed 40 mg PO DAILY 05/11/23 07/23/23 release insulin lispro 100 unit/mL 15 - 20 unit subcut .TIDAC 06/15/23 07/23/23 subcutaneous pen (Humalog KwikPen (U-100) Insulin) Previous Rx's ?Medication ?Instructions ?Recorded SHOWER CHAIR #1 ea 10/05/20 SHOWER CHAIR #1 ea 01/10/21 fluticasone propionate 50 1 spray intranasal DAILY #16 grams 03/16/21 mcg/actuation nasal spray,suspension insulin syr/ndl U100 half gareth 0.5 #100 ea 05/14/21 mL 30 gauge x 07/23 pen needle, diabetic 31 gauge x #100 ea 01/03/23 5/16 (Lite Touch Insulin Pen [place]) lancets 33 gauge (OneTouch Delica #100 ea 03/13/22 Lancets) dicyclomine 20 mg tablet 20 mg PO QID PRN abdominal pain 07/05/22 #20 tabs ondansetron HCl 4 mg tablet 4 mg PO Q6H PRN nausea and 07/06/22 vomiting #14 tabs albuterol sulfate 90 mcg/actuation 2 puff PO Q4-6H PRN for wheezing 11/12/22 aerosol inhaler #8.5 grams metoclopramide HCl 10 mg tablet 10 mg PO AC PRN nausea and 11/12/22 (Reglan) vomiting #20 tabs blood sugar diagnostic 1 strip miscellaneous TID #100 11/27/22 strips blood sugar diagnostic [facility] 01/13/23 Ultra Test strips) pen needle, diabetic 29 gauge x #100 ea 04/02/2303/11 (BD Ultra-Fine Original Pen Needle) pen needle, diabetic 32 gauge x #1,200 ea 04/02/23 (BD Ultra-Fine Brittany Pen Needle) WALKER #1 ea 04/09/23 oxybutynin chloride 10 mg 10 mg PO DAILY #90 tabs 04/16/23 tablet,extended release 24 hr tamsulosin 0.4 mg capsule (Flomax) 0.4 mg PO BEDTIME #90 caps 04/16/23 metoprolol tartrate 50 mg tablet 50 mg PO BID #180 tabs 06/08/23 gabapentin 400 mg capsule 400 mg PO TID #270 caps 06/11/23 walker #1 ea 06/15/23 aspirin 81 mg tablet,delayed 81 mg PO DAILY #90 tabs 07/09/23 release docusate sodium 100 mg capsule 100 mg PO BID PRN constipation 30 07/11/23 days #60 caps lisinopril 10 mg tablet 10 mg PO DAILY 90 days #90 tabs 07/11/23 paroxetine HCl 40 mg tablet 40 mg PO DAILY #90 tabs 07/11/23 Allergies Allergy/AdvReac Type Severity Reaction Status Date / Time hydromorphone [Dilaudid] AdvReac Unknown confusion Verified 07/23/23 17:04 From DILAUDID AdvReac Severe CONFUSION/H Uncoded 06/11/23 10:02 ALLUCIATION S From PERCOCET AdvReac Intermediate AGITATION Uncoded 06/11/23 10:02 Review of Systems Review of Systems: Yes Unobtainable due to mental status PMFSH Past Medical History Medical History Gastritis and duodenitis Vitamin B12 deficiency Hyperkalemia Intertrigo Major depressive disorder, recurrent Benign prostatic hyperplasia with urinary frequency Constipation Obstructive sleep apnea Vitamin D deficiency Diabetic polyneuropathy Diabetes mellitus Obesity (BMI 30-39.9) Benign essential hypertension Pure hypercholesterolemia Coronary artery disease Surgical History Hx of cataract extraction (~2011) History of quadruple bypass (~2005) Hx of cystoscopy History of prostate surgery (~12/04/10) Hx of cholecystectomy (~2007) Family History Family History Father Lung cancer Mother Diabetes Hypertension Stomach cancer Social History Social History Household Members: None Housing: Apartment Do you presently have visiting nurse or other home services: No Alcohol intake: never Patient Tobacco Use Status: Former Tobacco user Quit Date: 17 years ago Smoked in Last 30 Days: No e-Cigarette/Vaping Use: Never Used Second Hand Smoke Exposure: No Advance Directives: Yes Advance Directives on File: Yes Advance Directives Date on File: 05/30/23 Do you have a plan to hurt others: No Plan service: No Current occupational status: disabled Cognitive needs: Yes (cane) Hearing needs: No Vision needs: Yes Physical Exam ED Vital Signs: Vital Signs - 24 hr 07/23/23 17:02 07/23/23 21:20 07/23/23 23:46 Temperature 97.9 F 97.9 F Pulse Rate 85 68 75 Respiratory Rate 16 16 Blood Pressure 176/65 H 170/63 H 172/67 H Pulse Oximetry 93 95 Oxygen Delivery Method Room Air Room Air 07/24/23 00:02 Temperature 97.7 F Pulse Rate 75 Respiratory Rate 16 Blood Pressure 172/67 H Pulse Oximetry 96 Oxygen Delivery Method Room Air BMI result Body Mass Index 40.3 Appearance: Alert. Oriented X1-2. No acute distress. Eyes: PERRLA, No Nystagmus ENT: Pharynx normal. Oral Mucosa dry Neck: Normal inspection. Neck supple. CVS: Normal heart rate and rhythm. Pulses normal. Respiratory: No respiratory distress. Equal air entry bilateral, no wheezing/rales/rhonchi Abdomen: Soft and nontender. Bowel sounds are present, no mass palpable, no CVA tenderness Skin: Skin warm and dry. Normal skin color. Normal skin turgor. Extremities: No lower extremity edema. No calf tenderness Neuro: Oriented X 1-2. No motor deficit. No sensory deficit.No cerebellar signs , cranial nerves II-XII intact Medications Administered Generic Name Dose Route Start Last Admin Trade Name Freq PRN Reason Stop Dose Admin Metoprolol Tartrate 50 mg 07/23/23 23:30 07/23/23 23:46 Metoprolol Tartrate 50 Mg Tablet PO 50 mg BID ABELARDO Administration Protocol Discontinued Medications Generic Name Dose Route Start Last Admin Trade Name Freq PRN Reason Stop Dose Admin Sodium Chloride 1,000 mls @ 999 mls/hr 07/23/23 18:00 07/23/23 20:05 Ns IV 07/23/23 19:00 Infused .Q1H1M ONE Infusion Insulin Glargine 80 unit 07/23/23 19:08 07/23/23 19:44 Insulin Glargine,Hum.Rec.Anlog 100 Unit/Ml 10 Ml Vial SUBCUT 07/23/23 19:09 80 unit ONCE ONE Administration Insulin Human Lispro 14 unit 07/23/23 18:00 07/23/23 18:49 Insulin Lispro 100 Unit/Ml 3 Ml Vial SUBCUT 07/23/23 18:01 14 unit ONCE ONE Administration Medical Decision Making Medical Decision Making MDM Narrative: Patient's dementia with multiple comorbid condition poor management at home RN spoke with the family Son Manuel called ED to see how his father was. Manuel has not seen his father in over a week, was unsure why EMS was called and did not know his father's medications. Manuel called his aunt who seemed to have more information, she called EMS because the patient was wandering around his apartment, and seemed spaced out . Per patient's sister patient has not taken his insulin or any other medication in days. Patient lives alone, still drives, but per son was in a fpc maybe a month ago . Son did not know why he was in a fpc. Manuel's number is [phone] can be reached for additional questions. Patient was seen during last admission 05/31 by psychiatrist when decided : POOR MOCA SCORE DOES NOT APPEAR COMPETENT RECOMMEND INVOKING HCP supposed to go to short-term rehab for 3 weeks. Will consult case management patient's blood sugar improved after insulin to 215 now Differential Diagnosis Differential Diagnoses: The differential diagnosis associated with the presentation includes Dementia/metabolic encephalopathy/hyperglycemia Admission/Observation Consideration of admission/observation: Escalation of care including admission/observation considered Lab Data [facility] Lab Attestation statement: I reviewed the patient's lab results. 07/23/23 17:24 07/23/23 17:24 Labs: Lab Results 07/23/23 07/23/23 07/23/23 Range/Units 16:55 17:24 19:44 WBC 9.7 (4.8-10.8) X10*3/uL RBC 4.35 L (4.60-5.80) X10*6/uL Hgb 13.2 L (14.0-18.0) g/dl Hct 37.6 L (42.0-52.0) % MCV 86.4 (80.0-98.0) fL MCH 30.3 (27.0-33.0) pg MCHC 35.1 (31.0-36.0) g/dl RDW 11.9 (11.0-16.0) % Plt Count 194 (160-400) X10*3/uL MPV 12.4 (9.4-12.4) fL Immature Gran % (Auto) 0.3 (0.0-0.4) % Neut % (Auto) 73.0 (45-73) % Lymph % (Auto) 17.1 L (20-40) % [place] % (Auto) 8.9 (2-11) % Eos % (Auto) 0.4 (0-4) % Baso % (Auto) 0.3 (0-2) % Lymph # (Auto) 1.7 (1.2-4.9) X10*3/uL [place] # (Auto) 0.9 (0.1-1.2) X10*3/uL Eos # (Auto) 0.0 (0.0-0.4) X10*3/uL Baso # (Auto) 0.0 (0.0-0.2) X10*3/uL Abs Immat Gran (auto) 0.03 (0.00-0.03) X10*3/uL Absolute Neuts (auto) 7.1 (2.0-8.3) x10*3/uL Absolute Nucleated RBC 0.000 (0.0-0.012) X10*3/uL Nucleated RBC % (auto) 0.0 (0.0-0.2) /100WBC Smear Tech's Comments VERIFIED Hold Blue Top SEE NOTE Sodium 137 (135-145) mmol/L Potassium 3.8 (3.3-5.1) mmol/L Chloride 101 (96-108) mmol/L Carbon Dioxide 24 (22-29) mmol/L Anion Gap 16 (12-20) BUN 28 H (9-16) mg/dL Creatinine 1.41 H (0.5-1.4) mg/dL Estim Creat Clear Calc 57.6 Estimated GFR 50 POC Glucose 410 H* 325 H (60-115) mg/dL Random Glucose 441 H* (60-115) mg/dL Calcium 9.7 (8.4-10.2) mg/dL Total Bilirubin 0.7 (0.0-1.0) mg/dL AST 18 (5-37) U/L ALT 20 (0-40) U/L Alkaline Phosphatase 133 H (39-117) U/L Troponin I High Sens 16.3 D (<3.5-35.0) ng/L Total Protein 7.8 (6.5-8.0) g/dL Albumin 4.1 (3.5-5.0) g/dL Urine Color Urine Appearance Urine pH (5.0-9.0) Ur Specific [place] (1.005-1.025) Urine Protein (Neg-Trace) mg/dL Urine Glucose (UA) (Negative) mg/dL Urine Ketones (Negative) mg/dL Urine Blood (Negative) Urine Nitrite (Negative) Ur Leukocyte Esterase (Negative) Urine RBC (0-2) /HPF Urine WBC (0-5) /HPF Ur Squamous Epith Cells (0-2) /HPF Urine Bacteria (None Seen) Hyaline Casts (0-2) /LPF 05/15/24 05/15/24 Range/Units 22:06 23:00 WBC (4.8-10.8) X10*3/uL RBC (4.60-5.80) X10*6/uL Hgb (14.0-18.0) g/dl Hct (42.0-52.0) % MCV (80.0-98.0) fL MCH (27.0-33.0) pg MCHC (31.0-36.0) g/dl RDW (11.0-16.0) % Plt Count (160-400) X10*3/uL MPV (9.4-12.4) fL Immature Gran % (Auto) (0.0-0.4) % Neut % (Auto) (45-73) % Lymph % (Auto) (20-40) % [place] % (Auto) (2-11) % Eos % (Auto) (0-4) % Baso % (Auto) (0-2) % Lymph # (Auto) (1.2-4.9) X10*3/uL [place] # (Auto) (0.1-1.2) X10*3/uL Eos # (Auto) (0.0-0.4) X10*3/uL Baso # (Auto) (0.0-0.2) X10*3/uL Abs Immat Gran (auto) (0.00-0.03) X10*3/uL Absolute Neuts (auto) (2.0-8.3) x10*3/uL Absolute Nucleated RBC (0.0-0.012) X10*3/uL Nucleated RBC % (auto) (0.0-0.2) /100WBC Smear Tech's Comments Hold Blue Top Sodium (135-145) mmol/L Potassium (3.3-5.1) mmol/L Chloride (96-108) mmol/L Carbon Dioxide (22-29) mmol/L Anion Gap (12-20) BUN (9-16) mg/dL Creatinine (0.5-1.4) mg/dL Estim Creat Clear Calc Estimated GFR POC Glucose 215 H (60-115) mg/dL Random Glucose (60-115) mg/dL Calcium (8.4-10.2) mg/dL Total Bilirubin (0.0-1.0) mg/dL AST (5-37) U/L ALT (0-40) U/L Alkaline Phosphatase (39-117) U/L Troponin I High Sens (<3.5-35.0) ng/L Total Protein (6.5-8.0) g/dL Albumin (3.5-5.0) g/dL Urine Color Yellow Urine Appearance Clear Urine pH 5.5 (5.0-9.0) Ur Specific [place] 1.025 (1.005-1.025) Urine Protein 100 (2+) H (Neg-Trace) mg/dL Urine Glucose (UA) >=1000 H (Negative) mg/dL Urine Ketones Negative (Negative) mg/dL Urine Blood Negative (Negative) Urine Nitrite Negative (Negative) Ur Leukocyte Esterase Negative (Negative) Urine RBC 0-2 (0-2) /HPF Urine WBC 0-5 (0-5) /HPF Ur Squamous Epith Cells 0-2 (0-2) /HPF Urine Bacteria None Seen (None Seen) Hyaline Casts 0-2 (0-2) /LPF Independent Interpretation I performed an independent interpretation of an: EKG Interpretation: Normal sinus rhythm left axis deviation LVH no acute STT wave changes no acute ischemia Discharge Plan Discharge Clinical Impression: Diabetes mellitus with hyperglycemia, Dementia Patient Disposition: Still a Patient Prescriptions: No Action fluticasone propionate 50 mcg/actuation spray,suspension 1 spray intranasal DAILY Qty: 16 2RF (DME) pen needle, diabetic [Lite Touch Insulin Pen [place]] 31 gauge x 5/16 needle See Rx Instructions .Route Qty: 100 12RF Rx Instructions: Use 3 times daily (DME) lancets [OneTouch Delica Lancets] 33 gauge misc See Rx Instructions .Route Qty: 100 12RF Rx Instructions: As directed 3 times a day albuterol sulfate 90 mcg/actuation HFA aerosol inhaler 2 puff PO Q4-6H PRN (Reason: for wheezing) Qty: 8.5 2RF metoclopramide HCl [Reglan] 10 mg tablet 10 mg PO AC PRN (Reason: nausea and vomiting) Qty: 20 0RF OneTouch Ultra Blue Test Strip Strip 1 strip miscellaneous TID Qty: 100 3RF (DME) blood-glucose meter [OneTouch Ultra2 Meter] Misc See Rx Instructions .ROUTE TID Qty: 1 Rx Instructions: test 3 times per day (DME) OneTouch Ultra Test Strip See Rx Instructions .Route Qty: 100 8RF Rx Instructions: test 3 times per day (DME) pen needle, diabetic [BD Ultra-Fine Orig Pen Needle] 29 gauge x 1/2 needle See Rx Instructions .Route Qty: 100 12RF Rx Instructions: 3 times daily (DME) pen needle, diabetic [BD Ultra-Fine Brittany Pen Needle] 32 gauge x needle See Rx Instructions .Route Qty: 1200 4RF Rx Instructions: test 3 times daily (DME) WALKER See Rx Instructions .Route .MEDSUPPLY Qty: 1 0RF Rx Instructions: As directed metoprolol tartrate 50 mg tablet 50 mg PO BID Qty: 180 1RF aspirin 81 mg tablet,delayed release (DR/EC) 81 mg PO DAILY Qty: 90 0RF docusate sodium 100 mg capsule 100 mg PO BID PRN (Reason: constipation) 30 Days Qty: 60 3RF lisinopril 10 mg tablet 10 mg PO DAILY 90 Days Qty: 90 1RF paroxetine HCl 40 mg tablet 40 mg PO DAILY Qty: 90 0RF dicyclomine 20 mg tablet 20 mg PO QID PRN (Reason: abdominal pain) Qty: 20 0RF ondansetron HCl 4 mg tablet 4 mg PO Q6H PRN (Reason: nausea and vomiting) Qty: 14 0RF polyethylene glycol 3350 [Miralax] 17 gram/dose powder 17 g PO DAILY PRN (Reason: Constipation) atorvastatin 80 mg tablet 80 mg PO DAILY cyanocobalamin (vitamin B-12) 1,000 mcg tablet 1,000 mcg PO DAILY omeprazole 40 mg capsule,delayed release(DR/EC) 40 mg PO DAILY hydroxyzine HCl 25 mg tablet 25 mg PO Q6H PRN (Reason: anxiety) insulin glargine [Lantus Solostar U-100 Insulin] 100 unit/mL (3 mL) insulin pen 80 unit subcut BID cholecalciferol (vitamin D3) [Vitamin D3] 50 mcg (2,000 unit) capsule 50 mcg PO DAILY (DME) SHOWER CHAIR See Rx Instructions .Route .MEDSUPPLY Qty: 1 0RF Rx Instructions: [place] directed [place] [place]OWER CHAIR See Rx Instructions .Route .MEDSUPPLY Qty: 1 0RF Rx Instructions: As directed (DME) insulin syr/ndl U100 half gareth 0.5 mL 30 gauge x 5/16 syringe See Rx Instructions .Route Qty: 100 12RF Rx Instructions: Use 4 times daily gabapentin 400 mg capsule 400 mg PO TID Qty: 270 1RF (DME) walker Misc See Rx Instructions .Route Qty: 1 0RF Rx Instructions: As directed insulin lispro [Humalog KwikPen Insulin] 100 unit/mL insulin pen 15 - 20 unit subcut .TIDAC oxybutynin chloride 10 mg tablet extended release 24hr 10 mg PO DAILY Qty: 90 1RF tamsulosin [Flomax] 0.4 mg capsule 0.4 mg PO BEDTIME Qty: 90 2RF Print Language: Divehi
[2023-07-23 17:02] VITALS: BP 176/65; PULSE 85; RESP 16; TEMP 36.6; O2SAT 93; BMI 40.3
--- NOTE | 2023-07-23 17:07 | ECG_ITS ---
Test Reason : ALTERED MENTAL Blood Pressure : / mmHG Vent. Rate : 076 BPM Atrial Rate : 076 BPM P-R Int : 190 ms QRS Dur : 096 ms QT Int : 418 ms P-R-T Axes : 052 -30 097 degrees QTc Int : 470 ms Normal sinus rhythm Left axis deviation Minimal voltage criteria for LVH, may be normal variant ( R in aVL ) Septal infarct (cited on or before 09-MAY-2023) Abnormal ECG When compared with ECG of 09-MAY-2023 11:03, CA interval has decreased Borderline criteria for Lateral infarct are no longer Present Nonspecific T wave abnormality now evident in Lateral leads Referred By: Sharath Styles Electronically Signed By:BAN SPANGLER MD
[2023-07-23 17:40] LABS: Basophils Percent Auto 0.3 % (0-2); Eosinophils Percent Auto 0.4 % (0-4); Hematocrit 37.6 % (42.0-52.0); Hemoglobin 13.2 g/dl (14.0-18.0); Imm Gran Abs Auto 0.03 X10*3/uL (0.00-0.03); Imm Gran Pct Auto 0.3 % (0.0-0.4); Lymphocytes Absolute Auto 1.7 X10*3/uL (1.2-4.9); Lymphocytes Percent Auto 17.1 % (20-40); MANUAL DIFF FLAG SCAN; Mean Corpuscular HGB Conc 35.1 g/dl (31.0-36.0); Mean Corpuscular Hemoglobin 30.3 pg (27.0-33.0); Mean Corpuscular Volume 86.4 fL (80.0-98.0); Mean Platelet Volume 12.4 fL (9.4-12.4); Monocytes Absolute Auto 0.9 X10*3/uL (0.1-1.2); Monocytes Percent Auto 8.9 % (2-11); Neutrophils Absolute Auto 7.1 x10*3/uL (2.0-8.3); PLT CLUMP 1; Red Blood Count 4.35 X10*6/uL (4.60-5.80); Red Cell Distribution Width 11.9 % (11.0-16.0); SCAN SMEAR FLAG 1
[2023-07-23 17:57] LABS: Troponin-I High Sensitivity 16.3 ng/L (<3.5-35.0)
[2023-07-23 17:59] LABS: Platelet Count 194 X10*3/uL (160-400); SLIDE REVIEW VERIFIED; White Blood Count 9.7 X10*3/uL (4.8-10.8)
--- NOTE | 2023-07-23 17:59 | PC.NURSE ---
Son Manuel called ED to see how his father was. Manuel has not seen his father in over a week, was unsure why EMS was called and did not know his father's medications. Manuel called his aunt who seemed to have more information, she called EMS because the patient was wandering around his apartment, and seemed spaced out . Per patient's sister patient has not taken his insulin or any other medication in days. Patient lives alone, still drives, but per son was in a group home maybe a month ago . Son did not know why he was in a group home. Manuel's number is [phone] can be reached for additional questions.
[2023-07-23 18:01] LABS: Alanine Aminotransferase 20 U/L (0-40); Albumin Level 4.1 g/dL (3.5-5.0); Alkaline Phosphatase 133 U/L (39-117); Anion Gap 16 (12-20); Aspartate Amino Transferase 18 U/L (5-37); Bilirubin Total 0.7 mg/dL (0.0-1.0); Blood Urea Nitrogen 28 mg/dL (9-16); Calcium 9.7 mg/dL (8.4-10.2); Carbon Dioxide 24 mmol/L (22-29); Chloride 101 mmol/L (96-108); Creatinine Clr Calc Pharmacy 57.6; Estimated Glomerular Filt Rate 50; Glucose Random 441 mg/dL (60-115); Potassium 3.8 mmol/L (3.3-5.1); Sodium 137 mmol/L (135-145); Total Protein 7.8 g/dL (6.5-8.0)
--- NOTE | 2023-07-23 18:33 | PC.NURSE ---
Attempted IV insertion x 2, charge nurse aware. Will find additional RN to attempt insertion
[2023-07-23] MEDS: 0.9 % Sodium Chloride 1,000 ML 999 ML IV (18:45)
[2023-07-23] MEDS: Insulin Lispro 100 UNIT/ML 3 ML VIAL 14 UNIT SUBCUT (18:49)
[2023-07-23] MEDS: Insulin Glargine,Hum.rec.anlog 100 UNIT/ML 10 ML VIAL 80 UNIT SUBCUT (19:44)
[2023-07-23 19:47] LABS: Glucose, Whole Blood 325 mg/dL (60-115)
--- NOTE | 2023-07-23 20:44 | PC.NURSE ---
Handoff report to Marleen EDMONDS.
[2023-07-23 21:20] VITALS: BP 170/63; PULSE 68; RESP 16; TEMP 36.6; O2SAT 95
--- NOTE | 2023-07-23 21:48 | MHC.CM.ED ---
CM met with patient with merchant mill utility worker, as patient is Welsh speaking. Pt is confused. Appears to be word searching. Pt does not know where he is or why he is here. Pt does not know where he lives. He knows his PCP is Dr. Persaud and his son is Manuel. When asked if he needs help at home, he says yes. CM called and spoke with his son, Manuel. Manuel will be in tonight to speak with CM and see his father. Manuel admits that his father seems to be doing worse since he left the rehab. States he has dementia, and sometimes remembers and sometimes does not. CM spent some time explaining the dementia process with Manuel. Manuel believes he is the HCP and thinks he has a copy at home. He is willing to be the HCP. He understands that the HCP may be invoked, and he would need to make medical decisions for his father, including him possibly living in a usp. Pt has [employer]. Manuel tells CM that he works and cannot care for his father 30/09. 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 He does not know the agency.His father ambulates poorly, uses a cane and walker and does not believe his consistantly takes his medications. States his aunt tries to help care for him, but she is not well herself. She told him he is not taking his medications. CM reviewed the old record. He was admitted on 05/08-05/10 and was discharged to [place] for STR. There is documentation of a HCP being faxed to [place], but it is not in our system. Pt had a psych evaluation at that time. Per psych, the patient did not have capacity and it was recommended to invoke the HCP at that time. A MOCA was attempted, but patient was unable to attend to the questioning, so no scoring was obtained. Per psych eval, the inability to complete the testing leads to the probable diagnosis of severe dementia. Pt is not safe to go home. CM spoke with Manuel at the bedside. Manuel thinks his father should go to LTC and is not safe at home. Cannot care for him at home, as he works and his father would be alone in his home. Manuel was very happy with his care at [place] and would like him to return there if they have a bed. He is also interested in [facility] and [facility]. CM will place referrals. CM spoke with Dr. Styles and requested a psych evaluation for capacity and to attempt to complete a MOCA if recommended by psych. CM will follow for discharge planning
[2023-07-23 22:13] LABS: Glucose, Whole Blood 215 mg/dL (60-115)
--- NOTE | 2023-07-23 22:39 | PC.NURSE ---
Med rec done with most recent pharmacy fills.
[2023-07-23 23:21] LABS: Appearance Urine Clear; Color Urine Yellow; Glucose Urine UA >=1000 mg/dL (Negative); Leukocyte Esterase Urine Negative (Negative); Nitrite Urine Negative (Negative); PH 5.5 (5.0-9.0); Specific Gravity - Urine 1.025 (1.005-1.025); UMIC TRIGGER UACC YES; Urine Blood Negative (Negative); Urine Ketones Negative (Negative); Urine Protein 100 (2+) mg/dL (Neg-Trace)
[2023-07-23 23:29] LABS: Bacteria Urine None Seen (None Seen); Hyaline Casts Urine 0-2 /LPF (0-2); RBC Urine 0-2 /HPF (0-2); Squamous Epithelial Cell Urine 0-2 /HPF (0-2); WBC Urine 0-5 /HPF (0-5)
[2023-07-23 23:46] VITALS: BP 172/67; PULSE 75
[2023-07-23] MEDS: Metoprolol Tartrate 50 MG TABLET PO (23:46)
[2023-07-24] VITALS (7 sets, daily range): BP systolic 105–197; BP diastolic 54–67; PULSE 54–75; RESP 16; TEMP 36.1–36.6; O2SAT 96–98
--- NOTE | 2023-07-24 02:44 | PC.NURSE ---
This copy writer assumed care of this Pt at 2100. Pt A&O to self, confused, unable to make needs known. T/W asked Pt if he had to use the BR, Pt denied, laughed and sat on edge of bed and started urinating on floor. Urine sample was able to be obtained and sent to lab.
[2023-07-24 07:34] LABS: Glucose, Whole Blood 86 mg/dL (60-115)
--- NOTE | 2023-07-24 08:42 | MHC.CM.ED ---
Addendum entered by Jenn Sloan 07/24/23 12:50: [facility] not have a bed to offer. [facility] is able to offer a bed. Manuel accepts bed. [facility] has been asked to go for ins auth. Addendum entered by Jenn Sloan 07/24/23 08:57: Copy of HCP obtained from [facility]. Original Note: Patient remains in ER overflow. HCP invoked by Dr Olguin. Physical therapy eval pending. Continue to monitor for d/c needs.
[2023-07-24] MEDS: Insulin Glargine,Hum.rec.anlog 100 UNIT/ML 10 ML VIAL 80 UNIT SUBCUT (10:28)
[2023-07-24] MEDS: Omeprazole 40 MG CAPSULE.DR PO (10:29)
[2023-07-24] MEDS: lisinopriL 10 MG TABLET PO (10:29)
[2023-07-24] MEDS: Cyanocobalamin (Vitamin B-12) 1,000 MCG TABLET 1000 MCG PO (10:32)
[2023-07-24] MEDS: Gabapentin 400 MG CAPSULE PO ×3 (10:32→20:41)
[2023-07-24] MEDS: oxyBUTYnin chloride ER 5 MG TAB.ER.24 10 MG PO (10:32)
[2023-07-24] MEDS: Cholecalciferol (Vitamin D3) 25 MCG TABLET 50 MCG PO (10:33)
[2023-07-24] MEDS: Aspirin Enteric Coated 81 MG TABLET.DR PO (10:33)
[2023-07-24 11:29] LABS: Glucose, Whole Blood 102 mg/dL (60-115)
[2023-07-24 11:35] LABS: COVID-19 Test Negative (Negative); IDNOW Serial# 152EDE1D
--- NOTE | 2023-07-24 12:00 | PC.NURSE ---
Pt remains confused awaiting case management review for placement. FIELD SERVICER at bedside, Covid swab obtained this am. Pt alert and confused. Speaks pest control technician needed. Medication not avaiable in the [facility], pharmacy notified awaiting medication delivery.
[2023-07-24] MEDS: PARoxetine HCL 40 MG TABLET PO (12:58)
--- NOTE | 2023-07-24 14:10 | PC.NURSE ---
this RN assumed care of patient, patient resting quietly in hospital bed, respirations equal and unlabored, skin dry and intact. sitter at bedside
--- NOTE | 2023-07-24 15:20 | PC.NURSE ---
patient medicated per MAY, takes meds with water
[2023-07-24 20:39] LABS: Glucose, Whole Blood 68 mg/dL (60-115)
[2023-07-24] MEDS: Metoprolol Tartrate 50 MG TABLET PO (20:41)
[2023-07-24] MEDS: Glucose Gel 15 GM GEL..GRAM. PO (20:42)
--- NOTE | 2023-07-24 20:42 | PC.NURSE ---
Pt blood glucose 68. PO glucose given at this time and nighttime lantus held.
[2023-07-24 22:58] LABS: Glucose, Whole Blood 85 mg/dL (60-115)
--- NOTE | 2023-07-25 04:29 | PC.NURSE ---
pt arrived from the main ed to overflow
--- NOTE | 2023-07-25 04:29 | PC.NURSE ---
Handoff report to Edvin EDMONDS. Pt transported to overflow per [facility].
--- NOTE | 2023-07-25 05:16 | PC.NURSE ---
Addendum entered by Edvin Weller RN 07/25/23 06:02: poc 170, pt awake Addendum entered by Edvin Weller RN 07/25/23 05:38: pt drowsy, Medicated per, charge nurse and dr. gonzalez Original Note: pt POC 58
[2023-07-25 05:17] LABS: Glucose, Whole Blood 58 mg/dL (60-115)
[2023-07-25] MEDS: Dextrose 10 % 250 ML 750 ML IV (05:36)
[2023-07-25 05:37] VITALS: BP 141/63; PULSE 50; RESP 18; TEMP 37.1; O2SAT 94
[2023-07-25 06:06] LABS: Glucose, Whole Blood 170 mg/dL (60-115)
[2023-07-25 07:16] LABS: Glucose, Whole Blood 130 mg/dL (60-115)
[2023-07-25] MEDS: oxyBUTYnin chloride ER 5 MG TAB.ER.24 10 MG PO (09:13)
[2023-07-25] MEDS: lisinopriL 10 MG TABLET PO (09:13)
[2023-07-25] MEDS: Gabapentin 400 MG CAPSULE PO ×3 (09:14→20:39)
[2023-07-25] MEDS: Omeprazole 40 MG CAPSULE.DR PO (09:14)
[2023-07-25] MEDS: Metoprolol Tartrate 50 MG TABLET PO ×2 (09:14→20:39)
[2023-07-25] MEDS: Cyanocobalamin (Vitamin B-12) 1,000 MCG TABLET 1000 MCG PO (09:14)
[2023-07-25] MEDS: Aspirin Enteric Coated 81 MG TABLET.DR PO (09:14)
[2023-07-25] MEDS: Cholecalciferol (Vitamin D3) 25 MCG TABLET 50 MCG PO (09:14)
[2023-07-25 09:17] VITALS: BP 166/49; PULSE 54; RESP 16; TEMP 36.5; O2SAT 95
[2023-07-25] MEDS: Insulin Glargine,Hum.rec.anlog 100 UNIT/ML 10 ML VIAL 80 UNIT SUBCUT ×2 (10:39→20:44)
[2023-07-25] MEDS: PARoxetine HCL 40 MG TABLET PO (11:12)
[2023-07-25 11:59] LABS: Glucose, Whole Blood 259 mg/dL (60-115)
[2023-07-25] MEDS: Insulin Lispro 100 UNIT/ML 3 ML VIAL SUBCUT ×2 (12:21→16:57)
[2023-07-25 14:47] VITALS: BP 125/66; PULSE 62; RESP 18; TEMP 36.4; O2SAT 97
--- NOTE | 2023-07-25 16:18 | MHC.CM.ED ---
Patient remains in ER overflow. Insurance auth has been obtained by [facility]. Patient can leave tomorrow 07/25 at 10am. Markus JOY booked. Med [facility] with chart. Patient, son Leeanne Jackson RN and Rich LISA aware. Continue to monitor for d/c needs.
[2023-07-25 16:47] LABS: Glucose, Whole Blood 167 mg/dL (60-115)
[2023-07-25 20:39] VITALS: BP 159/70; PULSE 66
[2023-07-25 20:46] LABS: Glucose, Whole Blood 112 mg/dL (60-115)
--- NOTE | 2023-07-25 23:51 | MHC.EDTECH ---
pt given mor gerry and crackers
[2023-07-26 05:12] VITALS: BP 140/58; PULSE 56; RESP 16; TEMP 36.3; O2SAT 94
[2023-07-26] MEDS: Dextrose 10 % 250 ML 750 ML IV (07:45)
[2023-07-26 07:58] LABS: Glucose, Whole Blood 40 mg/dL (60-115)
[2023-07-26 08:39] LABS: Glucose, Whole Blood 43 mg/dL (60-115)
[2023-07-26 08:54] LABS: Glucose, Whole Blood 140 mg/dL (60-115)
[2023-07-26] MEDS: oxyBUTYnin chloride ER 5 MG TAB.ER.24 10 MG PO (09:36)
[2023-07-26] MEDS: Aspirin Enteric Coated 81 MG TABLET.DR PO (09:37)
[2023-07-26] MEDS: Cholecalciferol (Vitamin D3) 25 MCG TABLET 50 MCG PO (09:37)
[2023-07-26] MEDS: Cyanocobalamin (Vitamin B-12) 1,000 MCG TABLET 1000 MCG PO (09:37)
[2023-07-26] MEDS: Omeprazole 40 MG CAPSULE.DR PO (09:37)
[2023-07-26] MEDS: PARoxetine HCL 40 MG TABLET PO (09:37)
[2023-07-26 09:38] VITALS: BP 162/55
[2023-07-26] MEDS: lisinopriL 10 MG TABLET PO (09:38)
[2023-07-26 09:39] VITALS: BP 162/55; PULSE 57
[2023-07-26] MEDS: Glucose Gel 15 GM GEL..GRAM. PO (09:40)
[2023-07-26] MEDS: Gabapentin 400 MG CAPSULE PO (09:43)
[2023-07-26 11:12] VITALS: BP 150/63; PULSE 60; RESP 16; TEMP 36.7; O2SAT 97
--- NOTE | 2023-07-26 11:12 | MHC.CM.PN ---
DP: PT WILL DC [facility] THIS AM [facility]IA [facility] CENTER UPDATED.
== END 2023-07-26 11:14 | disposition skilled nursing facility (03) ==
PROVIDERS: Physician Assistant Medical; Emergency Provider Internal Medicine; PCP Internal Medicine
DX: F03.90 Unspecified dementia, unspecified severity, without behavioral disturbance, psychotic disturbance, mood disturbance, and anxiety (principal); R41.0 Disorientation, unspecified; E11.65 Type 2 diabetes mellitus with hyperglycemia; Z79.4 Long term (current) use of insulin; Z79.899 Other long term (current) drug therapy
CPT/HCPCS: 36415; 80053; 81001; 82947; 84484; 85025; 87635; 93005; 97163; 99285

== ENCOUNTER → 2023-07-23 17:07 | Outpatient (BNV) | payer OTHER, SELFPAY | PROVIDERS: Emergency Provider Internal Medicine; PCP Internal Medicine; Visit Provider Internal Medicine Cardiovascular Disease | DX: R94.31 Abnormal electrocardiogram [ECG] [EKG] (principal); R41.82 Altered mental status, unspecified | CPT/HCPCS: 93010 ==

== ENCOUNTER 2023-09-07 23:11 | Emergency (ER) | payer OTHER, SELFPAY ==
[2023-09-07 23:20] VITALS: BP 158/68; BP 160/66; PULSE 79; PULSE 88; RESP 20; TEMP 37.3; O2SAT 96; O2SAT 97; BMI 39.5
--- NOTE | 2023-09-08 00:38 | ED_ITS ---
HPI - Anxiety General Chief Complaint: Anxiety Stated Complaint: anxiety Time Seen by Provider: 09/07/23 23:31 Source: patient Mode of arrival: EMS Limitations: language barrier History of Present Illness ED Provider: Jamilah Pena PA-C HPI narrative: 68-year-old male with history of anxiety, depression, hypertension, hyperlipidemia, diabetes, coronary artery disease, asthma/COPD, alcohol abuse, morbid obesity, dementia presents from home with anxiety. Patient states he was getting ready for bed and was having difficulty sleeping, he became anxious and called EMS for assistance. Patient states he tried to call his sister who lives below him and another apartment, he was advised to go to the emergency department. Patient states he has medication at home for his anxiety, however he did not take it. Patient denies SI or HI at this time. Related Data Home Medications ?Medication ?Instructions ?Recorded ?Confirmed polyethylene glycol 3350 17 17 g PO DAILY PRN Constipation 10/09/22 06/15/23 gram/dose oral powder (Miralax) blood-glucose meter (OneTouch #1 ea 11/27/22 06/15/23 Ultra2 Meter) atorvastatin 80 mg tablet 80 mg PO DAILY 05/11/23 06/15/23 cholecalciferol (vitamin D3) 50 50 mcg PO DAILY 05/11/23 07/23/23 mcg (2,000 unit) capsule (Vitamin D3) cyanocobalamin (vitamin B-12) 1,000 mcg PO DAILY 05/11/23 07/23/23 1,000 mcg tablet hydroxyzine HCl 25 mg tablet 25 mg PO Q6H PRN anxiety 05/11/23 07/23/23 insulin glargine 100 unit/mL (3 80 unit subcut BID 05/11/23 07/23/23 mL) subcutaneous pen (Lantus Solostar U-100 Insulin) omeprazole 40 mg capsule,delayed 40 mg PO DAILY 05/11/23 07/23/23 release insulin lispro 100 unit/mL 15 - 20 unit subcut .TIDAC 06/15/23 07/23/23 subcutaneous pen (Humalog KwikPen (U-100) Insulin) Previous Rx's ?Medication ?Instructions ?Recorded SHOWER CHAIR #1 ea 10/05/20 SHOWER CHAIR #1 ea 01/10/21 fluticasone propionate 50 1 spray intranasal DAILY #16 grams 03/16/21 mcg/actuation nasal spray,suspension insulin syr/ndl U100 half gareth 0.5 #100 ea 05/14/21 mL 30 gauge x 07/23 pen needle, diabetic 31 gauge x #100 ea 03/12/2207/23 (Lite Touch Insulin Pen [place]) lancets 33 gauge (Elauch Sofia #100 ea 03/13/22 Lancets) dicyclomine 20 mg tablet 20 mg PO QID PRN abdominal pain 07/05/22 #20 tabs ondansetron HCl 4 mg tablet 4 mg PO Q6H PRN nausea and 07/06/22 vomiting #14 tabs albuterol sulfate 90 mcg/actuation 2 puff PO Q4-6H PRN for wheezing 11/12/22 aerosol inhaler #8.5 grams metoclopramide HCl 10 mg tablet 10 mg PO AC PRN nausea and 11/12/22 (Reglan) vomiting #20 tabs blood sugar diagnostic 1 strip miscellaneous TID #100 11/27/22 strips blood sugar diagnostic ([facility] e[facility] 01/13/23 Ultra Test strips) pen needle, diabetic 29 gauge x #100 ea 04/02/2303/11 (BD Ultra-Fine Original Pen Needle) pen needle, diabetic 32 gauge x #1,200 ea 04/02/23 (BD Ultra-Fine Brittany Pen Needle) SHAHLA #1 ea 04/09/23 oxybutynin chloride 10 mg 10 mg PO DAILY #90 tabs 04/16/23 tablet,extended release 24 hr tamsulosin 0.4 mg capsule (Flomax) 0.4 mg PO BEDTIME #90 caps 04/16/23 metoprolol tartrate 50 mg tablet 50 mg PO BID #180 tabs 06/08/23 gabapentin 400 mg capsule 400 mg PO TID #270 caps 06/11/23 walker #1 ea 06/15/23 aspirin 81 mg tablet,delayed 81 mg PO DAILY #90 tabs 07/09/23 release docusate sodium 100 mg capsule 100 mg PO BID PRN constipation 30 07/11/23 days #60 caps lisinopril 10 mg tablet 10 mg PO DAILY 90 days #90 tabs 07/11/23 paroxetine HCl 40 mg tablet 40 mg PO DAILY #90 tabs 07/11/23 Allergies Allergy/AdvReac Type Severity Reaction Status Date / Time hydromorphone [Dilaudid] AdvReac Unknown confusion Verified 09/07/23 23:22 From DILAUDID AdvReac Severe CONFUSION/H Uncoded 09/07/23 23:22 ALLUCIATION S From PERCOCET AdvReac Intermediate AGITATION Uncoded 09/07/23 23:22 Review of Systems Review of Systems: Yes all other systems are reviewed and are negative Constitutional: Constitutional: Denies fever(s) Cardiovascular: Cardiovascular: Denies chest pain and Denies dyspnea Respiratory: Respiratory: Denies dyspnea Gastrointestinal: Gastrointestinal: Denies abdominal pain and Denies nausea Integumentary/Breasts: Skin/Breast: Denies rash Psychiatric: Psychiatric: Reports abnormal sleep pattern and Reports anxiety PMFSH Past Medical History Attestation statement: The following information was validated with the patient. Medical History Gastritis and duodenitis Vitamin B12 deficiency Hyperkalemia Intertrigo Major depressive disorder, recurrent Benign prostatic hyperplasia with urinary frequency Constipation Obstructive sleep apnea Vitamin D deficiency Diabetic polyneuropathy Diabetes mellitus Obesity (BMI 30-39.9) Benign essential hypertension Pure hypercholesterolemia Coronary artery disease Surgical History Hx of cataract extraction (~2011) History of quadruple bypass (~2005) Hx of cystoscopy History of prostate surgery (~12/04/10) Hx of cholecystectomy (~2007) Family History Family History Father Lung cancer Mother Diabetes Hypertension Stomach cancer Social History Social History Household Members: None Housing: Apartment Do you presently have visiting nurse or other home services: No Alcohol intake: never Patient Tobacco Use Status: Former Tobacco user e-Cigarette/Vaping Use: Never Used Second Hand Smoke Exposure: No Advance Directives: Yes Advance Directives on File: Yes Advance Directives Date on File: 07/24/23 Do you have a plan to hurt others: No Plan service: No Current occupational status: disabled Cognitive needs: Yes (cane) Hearing needs: No Vision needs: Yes Physical Exam Vital Signs: Vital Signs: Last Vital Signs Temp 98.9 F 09/08/23 00:43 Pulse 70 09/08/23 00:43 Resp 18 09/08/23 00:43 BP 171/67 H 09/08/23 00:43 Pulse Ox 96 09/08/23 00:43 O2 Del Method Room Air 09/08/23 00:43 BMI result Body Mass Index 39.5 Const: Other: Alert, overall well in appearance Orientation/consciousness: oriented to person, oriented to place and oriented to time HEENT: Other: No alcohol halitosis Resp: Other: Nonlabored respirations Cardio: Other: Normal peripheral perfusion Skin: Other: No rash Neuro: General: oriented to person, oriented to place and oriented to time Psych: Other: Calm cooperative, does not appear anxious Medical Decision Making Medical Decision Making MDM Narrative: 68-year-old male with history of anxiety, depression, hypertension, hyperlipidemia, diabetes, coronary artery disease, asthma/COPD, alcohol abuse, morbid obesity, dementia presents from home with anxiety. Patient states he was getting ready for bed and was having difficulty sleeping, he became anxious and called EMS for assistance. Patient states he tried to call his sister who lives below him and another apartment, he was advised to go to the emergency department. Patient states he has medication at home for his anxiety, however he did not take it. Patient denies SI or HI at this time. Problem: Psychiatric illness, alcohol abuse, dementia History: Per patient I have considered the following differential diagnoses: Decompensated psychiatric illness, alcohol intoxication, SI, HI Plan: Patient is literally here in the emergency department secondary to insomnia that made him anxious. I am not initiating a medical workup as it is not warranted. The patient is able to call for a ride, he knows his nephew will come pick him up. I will send him with information to read about insomnia, and the use of melatonin. He can follow up with his primary care provider as needed. Thought about alcohol intoxication, however he appears clinically sober and there is no alcohol halitosis. Thought about decompensated psychiatric illness, however he denies suicidal or homicidal ideation, he is alert and oriented x3. With his complaint of insomnia, perhaps the patient's dementia is worsening, however again he is alert and oriented x3. There is no indication to pursue this at this time. Patient further indicates that he has an appointment this month whose primary care provider to discuss his insomnia. We will be sending him with a list of outpatient resources for therapy and counseling. Differential Diagnosis Differential Diagnoses: The differential diagnosis associated with the p resentation includes Decompensated psychiatric illness, alcohol intoxication, SI, HI Discharge Plan Discharge Clinical Impression: Insomnia, Anxiety and depression Patient Disposition: Home, Self-Care Instructions: Insomnia (ED), Anxiety (ED) Additional Instructions: I provided you with information to read about regard to your anxiety disorder and insomnia. You need to follow up with your primary care provider for further discussion about medication management. I am also providing you with a list of outpatient resources for counseling and therapy, sounds as if your anxiety and depression are poorly controlled. In the meantime, you can use [id number] melatonin, 9 mg, taken an hour before bed. Read the package instructions. Call your primary care provider tomorrow for an appointment. Prescriptions: No Action fluticasone propionate 50 mcg/actuation spray,suspension 1 spray intranasal DAILY Qty: 16 2RF (DME) pen needle, diabetic [Lite Touch Insulin Pen [place]] 31 gauge x 5/16 n eedle See Rx Instructions .Route Qty: 100 12RF Rx Instructions: Use 3 times daily (DME) lancets [OneTouch Delica Lancets] 33 gauge misc See Rx Instructions .Route Qty: 100 12RF Rx Instructions: As directed 3 times a day albuterol sulfate 90 mcg/actuation HFA aerosol inhaler 2 puff PO Q4-6H PRN (Reason: for wheezing) Qty: 8.5 2RF metoclopramide HCl [Reglan] 10 mg tablet 10 mg PO AC PRN (Reason: nausea and vomiting) Qty: 20 0RF OneTouch Ultra Blue Test Strip Strip 1 strip miscellaneous TID Qty: 100 3RF (DME) blood-glucose meter [OneTouch Ultra2 Meter] Misc See Rx Instructions .ROUTE TID Qty: 1 Rx Instructions: test 3 times per day (DME) OneTouch Ultra Test Strip See Rx Instructions .Route Qty: 100 8RF Rx Instructions: test 3 times per day (DME) pen needle, diabetic [BD Ultra-Fine Orig Pen Needle] 29 gauge x 1/2 needle See Rx Instructions .Route Qty: 100 12RF Rx Instructions: 3 times daily (DME) pen needle, diabetic [BD Ultra-Fine Brittany Pen Needle] 32 gauge x 5/32 needle See Rx Instructions .Route Qty: 1200 4RF Rx Instructions: test 3 times daily (DME) SHAHLA See Rx Instructions .Route .MEDSUPPLY Qty: 1 0RF Rx Instructions: As directed metoprolol tartrate 50 mg tablet 50 mg PO BID Qty: 180 1RF aspirin 81 mg tablet,delayed release (DR/EC) 81 mg PO DAILY Qty: 90 0RF docusate sodium 100 mg capsule 100 mg PO BID PRN (Reason: constipation) 30 Days Qty: 60 3RF lisinopril 10 mg tablet 10 mg PO DAILY 90 Days Qty: 90 1RF paroxetine HCl 40 mg tablet 40 mg PO DAILY Qty: 90 0RF dicyclomine 20 mg tablet 20 mg PO QID PRN (Reason: abdominal pain) Qty: 20 0RF ondansetron HCl 4 mg tablet 4 mg PO Q6H PRN (Reason: nausea and vomiting) Qty: 14 0RF polyethylene glycol 3350 [Miralax] 17 gram/dose powder 17 g PO DAILY PRN (Reason: Constipation) atorvastatin 80 mg tablet 80 mg PO DAILY cyanocobalamin (vitamin B-12) 1,000 mcg tablet 1,000 mcg PO DAILY omeprazole 40 mg capsule,delayed release(DR/EC) 40 mg PO DAILY hydroxyzine HCl 25 mg tablet 25 mg PO Q6H PRN (Reason: anxiety) insulin glargine [Lantus Solostar U-100 Insulin] 100 unit/mL (3 mL) insulin pen 80 unit subcut BID cholecalciferol (vitamin D3) [Vitamin D3] 50 mcg (2,000 unit) capsule 50 mcg PO DAILY (DME) SHOWER CHAIR See Rx Instructions .Route .MEDSUPPLY Qty: 1 0RF Rx Instructions: As directed (DME) SHOWER CHAIR See Rx Instructions .Route .MEDSUPPLY Qty: 1 0RF Rx Instructions: As directed (DME) insulin syr/ndl U100 half gareth 0.5 mL 30 gauge x 516 syringe See Rx Instructions .Route Qty: 100 12RF Rx Instructions: Use 4 times daily gabapentin 400 mg capsule 400 mg PO TID Qty: 270 1RF (DME) shahla [facility] See Rx Instructions .Route Qty: 1 0RF Rx Instructions: As directed insulin lispro [Humalog KwikPen Insulin] 100 unit/mL insulin pen 15 - 20 unit subcut .TIDAC oxybutynin chloride 10 mg tablet extended release 24hr 10 mg PO DAILY Qty: 90 1RF tamsulosin [Flomax] 0.4 mg capsule 0.4 mg PO BEDTIME Qty: 90 2RF Print Language: French
[2023-09-08 00:43] VITALS: BP 171/67; PULSE 70; RESP 18; TEMP 37.2; O2SAT 96
[2023-09-08 02:41] VITALS: BP 153/84; PULSE 89; RESP 18; TEMP 36.8; O2SAT 96
== END 2023-09-08 02:42 | disposition home or self-care (01) ==
PROVIDERS: Emergency Provider Emergency Medicine
DX: F41.9 Anxiety disorder, unspecified (principal); G47.00 Insomnia, unspecified; F33.1 Major depressive disorder, recurrent, moderate; Z79.899 Other long term (current) drug therapy
CPT/HCPCS: 99282; 99284

== ENCOUNTER 2023-10-03 11:01 | Outpatient (AMB) | payer OTHER, SELFPAY ==
[2023-10-03 11:15] VITALS: BP 128/52; PULSE 60; O2SAT 96; BMI 40.3
--- NOTE | 2023-10-03 11:15 | MHC.PC.OV ---
Vital Signs 10/03/23 11:15 Height 5 ft 3 in Weight 227 lb 8 oz BMI 40.3 BP 128/52 L Blood Pressure Location Lt brachial Position Sitting Pulse 60 Pulse Source Pulse Oximeter Pulse Oximetry (%) 96 Oxygen Delivery Method Room Air Intake Visit Reasons: HDF 08/13/23 - see comments Sharepoint Net Developer Required: No Accompanied by: Nephew or Niece Allergies hydromorphone [Dilaudid] Adverse Reaction (Unknown, Verified 10/03/23 11:40) confusion From DILAUDID Adverse Reaction (Severe, Uncoded 10/03/23 11:40) CONFUSION/HALLUCIATIONS From PERCOCET Adverse Reaction (Intermediate, Uncoded 10/03/23 11:40) AGITATION Medication List - Last Reconciled 10/03/23 by Jerry Persaud MD albuterol sulfate 90 mcg/actuation 2 puffs PO Q4-6H PRN aspirin 81 mg PO DAILY atorvastatin 80 mg PO DAILY blood sugar diagnostic ([employer] Ultra Test strips) test 3 times per day blood sugar diagnostic 1 strip miscellaneous TID blood-glucose meter ([employer] Ultra2 Meter) test 3 times per day cholecalciferol (vitamin D3) (Vitamin D3) 50 mcg PO DAILY cyanocobalamin (vitamin B-12) 1,000 mcg PO DAILY dicyclomine 20 mg PO QID PRN docusate sodium 100 mg PO BID PRN 30 days fluticasone propionate 50 mcg/actuation 1 spray intranasal DAILY gabapentin 400 mg PO TID hydroxyzine HCl 25 mg PO Q6H PRN insulin glargine (Lantus Solostar U-100 Insulin) 80 units subcut BID insulin lispro (Humalog KwikPen (U-100) Insulin) 15 - 20 units subcut .TIDAC insulin syr/ndl U100 half gareth Use 4 times daily lancets ([employer] Delica Lancets) As directed 3 times a day lisinopril 10 mg PO DAILY 90 days metoclopramide HCl (Reglan) 10 mg PO AC PRN metoprolol tartrate 50 mg PO BID omeprazole 40 mg PO DAILY ondansetron HCl 4 mg PO Q6H PRN oxybutynin chloride ER 10 mg PO DAILY paroxetine HCl 40 mg PO DAILY pen needle, diabetic (Lite Touch Insulin Pen [place]) Use 3 times daily pen needle, diabetic (BD Ultra-Fine Original Pen Needle) 3 times daily pen needle, diabetic (BD Ultra-Fine Brittany Pen Needle) test 3 times daily polyethylene glycol 3350 (Miralax) 17 grams PO DAILY PRN [SHOWER CHAIR As directed] [SHOWER CHAIR As directed] tamsulosin (Flomax) 0.4 mg PO BEDTIME [WALKER As directed] walker As directed Tobacco use date assessed: 05/02/23 Fall risk assessment: No Falls in past year Last assessed Fall Risk: 10/03/23 Dental Screening Dental Screen Date: 05/02/23 HPI HDF 08/13/23 - see comments HPI Details Patient comes in today for his follow up visit - is accompanied today by his niece, who is also his [facility] His niece is the one now helping patient manage and take his meds He was seen at the ER back on 07/23/2023 for increasing confusion and at the time, it was determined that patient does not appear to be competent enough to manage his own meds and health conditions and he was transferred to short term rehab, where he spent some time until a [facility]/HCP was assigned to him He again went to the ER more recently on 09/07/2023 for increasing anxiety due to inability to get any sleep for a few days He was given a refill on his Hydroxyzine and was advised also to try taking some OTC Melatonin but was not prescribed anything else stronger to help him sleep due to his polypharmacy and inability to manage his own medications Patient states that he still has increased anxiety/depression but feels okay otherwise He denies any headaches or dizziness Denies any chest pains, no increased SOB No nausea/vomiting, no abdominal pain No change in bowel habits noted Reports that he has been experiencing increased pain over his left hip posteriorly for a few weeks now - notes that the pain seems to feel worse after some prolonged walking or standing recently Needs a couple of his Rx refilled He's had no follow up labs done recently other than his labs done at the ER back on 07/23/2023 [facility] Medical History Gastritis and duodenitis Vitamin B12 deficiency Hyperkalemia Intertrigo Major depressive disorder, recurrent Benign prostatic hyperplasia with urinary frequency Constipation Obstructive sleep apnea Vitamin D deficiency Diabetic polyneuropathy Diabetes mellitus Obesity (BMI 30-39.9) Benign essential hypertension Pure hypercholesterolemia Coronary artery disease Surgical History Hx of cataract extraction (~2011) History of quadruple bypass (~2005) Hx of cystoscopy History of prostate surgery (~12/04/10) Hx of cholecystectomy (~2007) Family History Father Lung cancer Mother Diabetes Hypertension Stomach cancer Social History Household Members: None Housing: Apartment Do you presently have visiting nurse or other home services: No Alcohol intake: never Patient Tobacco Use Status: Former Tobacco user e-Cigarette/Vaping Use: Never Used Second Hand Smoke Exposure: No Advance Directives Date on File: 07/24/23 service: No Current occupational status: disabled Cognitive needs: Yes (cane) Hearing needs: No Vision needs: Yes Questionnaire Thrive Questionnaire Date Thrive assessed: 05/02/23 CHEL-7 AMB Questionnaire CHEL-7 Date CHEL - 7 assessed: 05/02/23 Source: Developed by Drs. Steven Miller, Monie Garduno, Trevor Lin and colleagues, with an educational kwabena from [employer]. Review of Systems Const Denies chills, Reports fatigue, Denies fever(s) and Denies headache(s) ENT Denies dysphagia, Denies dizziness, Denies otalgia, Denies headache(s), Denies neck pain, Denies odynophagia and Denies sore throat Card Denies chest pain, Denies rapid heart rate, Denies irregular heart rhythm, Denies palpitations and Reports dyspnea on exertion (mild) Resp Denies chest congestion, Denies cough, Reports dyspnea on exertion (mild) and Denies wheezing GI Denies abdominal pain, Denies constipation, Denies dysphagia, Denies heartburn, Denies diarrhea, Denies nausea, Denies odynophagia and Denies vomiting Denies difficulty urinating, Denies dysuria and Denies urinary frequency Musc Reports back pain (over the lower back - chronic), Reports arthralgias (over the posterior left hip recently), Denies joint swelling and Denies neck pain Skin/Breast Denies rash Neuro Reports confusion (on and off - unable to manage his own meds due to cognitive issues), Denies dizziness, Denies headache(s) and Reports radicular pain (in both legs, on and off) Psych Reports confusion (on and off - unable to manage his own meds due to cognitive issues) Endo Reports fatigue and Denies palpitations Aller/Immun Denies wheezing Physical exam (Primary Care) Vital Signs: Last Vital Signs Pulse 60 10/03/23 11:15 BP 128/52 L 10/03/23 11:15 Pulse Ox 96 10/03/23 11:15 Oxygen Delivery Method Room Air 10/03/23 11:15 BMI result Body Mass Index 40.3 Tobacco/Smoking Status: Tobacco use Status Tobacco use date assessed 05/02/23 10/03/23 11:16 Patient Tobacco Use Status Former Tobacco user 10/03/23 11:16 e-Cigarette/Vaping Use Never Used 10/03/23 11:16 Thrive Assessment: Date of Thrive Assessment Date Thrive assessed 05/02/23 10/03/23 11:16 Const General: no acute distress, alert and confusion (on and off - unable to manage his own meds due to cognitive issues) Orientation/consciousness: confusion (on and off - unable to manage his own meds due to cognitive issues) HENMT Ears: TM's normal bilaterally and EAC's normal Throat: Yes posterior oropharynx normal and Yes tonsils normal (no TP congestion) Neck Neck: Yes no lymphadenopathy and Yes supple Thyroid: Thyroid normal Resp Auscultation: clear to auscultation bilaterally, no rales and no wheezes Cardio Rate: regular rate Rhythm: regular rhythm Heart sounds: no murmurs GI Palpation (GI): Soft to palpation and nontender Auscultation: normal bowel sounds General: Yes no CVA tenderness Back/Spine/Pelvis Back: no CVA tenderness Thoracic/Lumbar Spine: lumbar spinal tenderness Skin Rashes: no rashes Neuro General: confusion (on and off - unable to manage his own meds due to cognitive issues) Extrem Other: (+) healed longitudinal scars over the medial aspect of both lower legs, the result of his quadruple bypass done back in 2005 General: Yes no clubbing, cyanosis or edema Results AMB Hemoglobin A1c AMB Hemoglobin A1c 8.8 % Last Edit by AMOR Joya on 10/03/23 11:20 Results Reviewed Results Reviewed: Laboratory Last Values Hgb A1c (Clinic) 8.8 % (4.0-6.0) H 10/03/23 11:04 Assessment and Plan Assessment & Plan (1) Type 2 diabetes mellitus with diabetic neuropathy: Code(s): E11.40 - Type 2 diabetes mellitus with diabetic neuropathy, unspecified Qualifiers: Diabetes mellitus retirement insulin use: 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 Lucas for endocrinology follow-up and management but has not been seen since June 2022 Will refer him back to endocrinology for further evaluation and management of his poorly controlled diabetes mellitus (2) Diabetic polyneuropathy: Code(s): E11.42 - Type 2 diabetes mellitus with diabetic polyneuropathy Qualifiers: Diabetes mellitus type: type 2 Qualified Code(s): E11.42 - Type 2 diabetes mellitus with diabetic polyneuropathy Plan: Continue Gabapentin *00 mg BID, Tramadol 50 mg TID PRN and Duloxetine 30 mg QD He is reminded again that the best way to slow down the progression of his neuropathy is to get his diabetes under control, with goal of HgbA1c of at least <7.0% or 7.5% He was also previously referred to pain management as he was experiencing increasing pain in his lower extremities and his current medications have not been helping - unclear if he was ever seen or if he pursued this (3) Coronary artery disease: Comment: 2005 Code(s): I25.10 - Atherosclerotic heart disease of jackson coronary artery without angina pectoris Qualifiers: Coronary Disease-Associated Artery/Lesion type: jackson artery [place] vs. transplanted heart: jackson heart Associated angina: without angina Qualified Code(s): I25.10 - Atherosclerotic heart disease of jackson coronary artery without angina pectoris Plan: S/P quadruple bypass in 2005 Continue Aspirin 81 mg QD and Metoprolol 50 mg BID Follow up with [facility] cardiology as scheduled (4) Pure hypercholesterolemia: Code(s): E78.00 - Pure hypercholesterolemia, unspecified Plan: Reinforced low cholesterol diet Continue Atorvastatin 80 mg QD Will recheck his labs and fasting lipids in 3 months for follow up (5) Benign essential hypertension: Code(s): I10 - Essential (primary) hypertension Plan: Reinforced low-sodium diet - goal is systolic BP of at least 130 mm or less Continue Lisinopril 10 mg QD and Metoprolol 50 mg BID (6) Gastritis and duodenitis: Code(s): K29.90 - Gastroduodenitis, unspecified, without bleeding Plan: (+) gastritis and duodenitis on EGD done by Dr. Chavis in 2008 Reinforced dietary restrictions in gastritis Continue Omeprazole 40 mg QD Follow up with GI as scheduled (7) Left hip pain: Code(s): M25.552 - Pain in left hip Plan: Will send him for x-rays of the left hip for further evaluation (8) Obstructive sleep apnea: Code(s): G47.33 - Obstructive sleep apnea (adult) (pediatric) Plan: (+) Hx of JAIME - has CPAP device but states that he has not been using it as he had more trouble sleeping when he tried using it for the first time States that he feels that he sleeps well enough without it and denies any daytime somnolence fatigue (9) Anxiety and depression: Code(s): F41.9 - Anxiety disorder, unspecified; F32.A - Depression, unspecified Plan: Continue Hydroxyzine 25 mg Q 6 hours PRN and Paroxetine 40 mg QD Will refer him to psychiatry for further evaluation and management (10) Obesity (BMI 30-39.9): Code(s): E66.9 - Obesity, unspecified Plan: Reinforced diet; exercise and weight loss are unrealistic given patient's comorbidities and cognitive deficits Plan Follow up in 3 months Orders: Orders AMB Hemoglobin A1c 10/03/23 E11.40 - Type 2 diabetes mellitus with diabetic neuropathy, unspecified, Z79.4 - 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 Panel Fast 3 Months E78.00 - Pure hypercholesterolemia, unspecified UA CC w/rflx Micro + Cult 3 Months R30.0 - Dysuria Hemoglobin A1c 3 Months E11.9 - Type 2 diabetes mellitus without complications Complete Blood Count Auto Diff 3 Months D64.9 - Anemia, unspecified Microalbumin, Random (w Creat) 3 Months E11.9 - Type 2 diabetes mellitus without complications Referrals Endocrinology Referral E11.42 - Type 2 diabetes mellitus with diabetic polyneuropathy, Z79.4 - residential (current) use of insulin Psychiatry Referral F32.A - Depression, unspecified, F41.9 - Anxiety disorder, unspecified Medications: Changed From hydroxyzine HCl 25 mg PO Q6H PRN anxiety To hydroxyzine HCl 25 mg PO Q6H 30 days PRN 120 tabs 3RF anxiety From cyanocobalamin (vitamin B-12) 1,000 mcg PO DAILY To cyanocobalamin (vitamin B-12) 1,000 mcg PO DAILY 90 days 90 tabs 3RF Coding Level of Care Code Est Pt Level 4 (27272) Complex EM visit Add On G2211 Diagnoses Type 2 diabetes mellitus with diabetic neuropathy, with long-term current use of insulin E11.40; Z79.4 Diabetes mellitus retirement insulin use: 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 transplanted heart: jackson heart Associated angina: without angina Pure hypercholesterolemia E78.00 Benign essential hypertension I10 Gastritis and duodenitis K29.90 Left hip pain M25.552 Obstructive sleep apnea G47.33 Anxiety and depression F41.9; F32.A Obesity (BMI 30-39.9) E66.9
== END 2023-10-03 12:00 | disposition home or self-care (01) ==
PROVIDERS: PCP Internal Medicine; Visit Provider Internal Medicine
DX: E11.40 Type 2 diabetes mellitus with diabetic neuropathy, unspecified (principal); Z79.4 Long term (current) use of insulin
CPT/HCPCS: 83036; 99214; G2211

== ENCOUNTER 2023-10-04 08:37 | Outpatient (REF) | payer OTHER, SELFPAY ==
--- NOTE | ~2023-10-04 | XR_ITS ---
EXAMINATION: XR HIP, LEFT CLINICAL INFORMATION: Left hip pain. COMPARISON: 02/11/2023 TECHNIQUE: AP and frog-leg lateral views of the left hip. FINDINGS: Mild osteoarthritis of the left hip with marginal osteophytes and nonuniform joint space narrowing. No fracture or malalignment. Enthesopathic spurring is present at the anterior superior iliac spine. XR/XR hip LT min 2V IMPRESSION: Mild osteoarthritis in the left hip. No acute osseous findings.
[2023-10-04 12:02] LABS: TSH reflex Free T4 1.77 uIU/mL (0.32-4.0); Vitamin D 25-OH Total 36.9 ng/mL (>30)
[2023-10-04 12:15] LABS: Folate 8.4 ng/mL (> or = 4.0); Vitamin B12 1741 pg/mL (200-900)
== END 2023-10-04 08:38 | disposition home or self-care (01) ==
LOC: HO.LAB 08:37
PROVIDERS: PCP Internal Medicine; Visit Provider Internal Medicine
DX: E78.00 Pure hypercholesterolemia, unspecified (principal); E53.8 Deficiency of other specified B group vitamins; E55.9 Vitamin D deficiency, unspecified; M25.552 Pain in left hip
CPT/HCPCS: 36415; 73502; 82306; 82607; 82746; 84443

== ENCOUNTER 2023-10-21 12:50 | Outpatient (AMB) | payer OTHER, SELFPAY ==
--- NOTE | 2023-10-21 12:55 | A.OFFVIS_ITS ---
Vital Signs 10/21/23 12:59 Height 5 ft 3 in Weight 227 lb 1.218 oz BMI 40.2 BP 128/60 Blood Pressure Location Rt brachial Position Sitting Pulse 60 Pulse Source Pulse Oximeter Intake Visit Reasons: T2DM/CONFIRMED Intake Note: Patient presents today for to re-establish treatment for Type 2 Diabetes Mellitus: Last Diabetic eye exam was on: DUE Last Podiatry exam was on: Does not see a Document Management Analyst Most recent HbA1c: 8.8%, 10/03/2023 Random Glucose- 127mg/dL, Today Production Reproduction Manager Required: Yes Production Reproduction Manager Language: [place] Accompanied by: Nephew or Niece Allergies hydromorphone [Dilaudid] Adverse Reaction (Unknown, Verified 10/03/23 11:40) confusion From DILAUDID Adverse Reaction (Severe, Uncoded 10/03/23 11:40) CONFUSION/HALLUCIATIONS From PERCOCET Adverse Reaction (Intermediate, Uncoded 10/03/23 11:40) AGITATION HPI Comments Details: This is a 68-year-old male with a past medical history of type 2 diabetes with neuropathy, JAIME, hyperlipidemia, hypercholesterolemia, CAD, depression and dementia presenting for management of type 2 diabetes. Accompanied by niece /ENTERPRISE RESOURCE PLANNERCrystal. master fire control technician present for visit. He was initially diagnosed in 1981. He was last seen by Dr. Lucas on 06/12/2022. They mention recent hospitalizations for depression and dementia. They did not bring his glucometer today. He does not have a CGM. POC 127. Hemoglobin A1c 8.8%. Current regimen: Lantus 60 units twice daily. Humalog sliding scale taken 15 minutes prior to meals. He usually has 2 meals during the day, and he does not take Humalog at night if he has dinnerl. He was previously on Trulicity. No clear reason patient gives for why this was discontinued. Chart indicates he has a history of pancreatitis. Humalog sliding scale 200-250: 2 units 251-300: 4 units 301-350: 6 units 351-400: 8 units Over 400: 10 units They deny glucose readings less than 70. He did feel shaky when his glucose was 84 the other day. His niece says there is great variability in glucose readings. She became involved with his care, and now she is his ENTERPRISE RESOURCE PLANNER. They are trying to increase ENTERPRISE RESOURCE PLANNER hours. She does prepare his meals when she is there and checks his glucose. She wants to now if he is a candidate for insulin pump. Hypoglycemia symptoms: Shakiness Hyperglycemia symptoms: Dry mouth, polydipsia Microvascular complications: Neuropathy, nephropathy (CKD) Macrovascular complications: CAD, TIA in 1996 and 2009 ROS: Constitutional: No unexplained weight loss, fever, chills or night sweats. Eyes: No vision changes Respiratory: No shortness of breath Cardiovascular: No chest pain Gastrointestinal: No anorexia, nausea, vomiting or diarrhea. No abdominal pain Neurologic: No headache, dizziness, syncope, Endocrine: No cold or heat intolerance. No polyuria Physical exam: Constitutional: Alert, in no distress. Eyes: Pupils are equal, round and reactive to light. Extraocular muscles intact. Neck: Supple, Full range of motion. No lymphadenopathy. Respiratory: Clear to auscultation. Cardiovascular: S1 S2 regular. No murmurs. Right foot: Warm and well perfused. No clubbing, cyanosis or edema. DP pulse 3+. Decreased vibratory sensation and sensation to monofilament. Left foot: Warm and well perfused. No clubbing, cyanosis or edema. DP pulse 3+. Decreased vibratory sensation and sensation to monofilament. [facility] Medical History (Updated 10/21/23 @ 16:08 by SLOAN Pedersen) Type 2 diabetes mellitus with neurologic complication Gastritis and duodenitis Vitamin B12 deficiency Hyperkalemia Intertrigo Major depressive disorder, recurrent Benign prostatic hyperplasia with urinary frequency Constipation Obstructive sleep apnea Vitamin D deficiency Diabetic polyneuropathy Diabetes mellitus Obesity (BMI 30-39.9) Benign essential hypertension Pure hypercholesterolemia Coronary artery disease Surgical History Hx of cataract extraction (~2011) History of quadruple bypass (~2005) Hx of cystoscopy History of prostate surgery (~12/04/10) Hx of cholecystectomy (~2007) Family History Father Lung cancer Mother Diabetes Hypertension Stomach cancer Social History Household Members: None Housing: Apartment Do you presently have visiting nurse or other home services: No Alcohol intake: never Patient Tobacco Use Status: Former Tobacco user e-Cigarette/Vaping Use: Never Used Second Hand Smoke Exposure: No Advance Directives Date on File: 07/24/23 service: No Current occupational status: disabled Cognitive needs: Yes (cane) Hearing needs: No Vision needs: Yes Physical Exam Vital Signs: Last Vital Signs Pulse 60 10/21/23 12:59 BP 128/60 10/21/23 12:59 BMI result Body Mass Index 40.2 Results Reviewed Results Reviewed: Laboratory Last Values Glucose (Clinic) 127 mg/dL (60-115) H 10/21/23 13:04 Assessment & Plan Assessment & Plan (1) Type 2 diabetes mellitus with neurologic complication: Code(s): E11.49 - Type 2 diabetes mellitus with other diabetic neurological complication Category: Medical Qualifiers: 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 Encouraged compliance with humalog sliding scale for all meals. Prescribed freestyle iwona 3. Referred to division director. Defer resuming glp1 given history of pancreatitis. Will discuss possibility of starting SGLT2 at follow up visit. Follow up in 4 weeks to review CGM data. Medications: New blood-glucose sensor (FreeStyle [place] 3 Sensor device) As directed 2 ea 11RF blood-glucose meter,continuous (FreeStyle [place] 3 [place]) as directed 1 ea 0RF Coding Level of Care Code Est Pt Level 5 (39515) Complex EM visit Add On G2211 Diagnoses Type 2 diabetes mellitus with diabetic polyneuropathy, with long-term current use of insulin E11.42; Z79.4 Diabetes mellitus nursing home insulin use: with nursing home use Diabetes mellitus complication detail: with polyneuropathy Time Spent (min) 55 Comment seeing the patient, reviewing the chart completing documentation
[2023-10-21 12:59] VITALS: BP 128/60; PULSE 60; BMI 40.2
[2023-10-21 13:10] LABS: Glucose, Whole Blood 127 mg/dL (60-115)
== END 2023-10-21 14:10 | disposition home or self-care (01) ==
PROVIDERS: PCP Internal Medicine; Visit Provider Physician Assistant Medical
DX: E11.42 Type 2 diabetes mellitus with diabetic polyneuropathy (principal); Z79.4 Long term (current) use of insulin
CPT/HCPCS: 99215; G2211

== ENCOUNTER → 2023-10-21 12:50 | Outpatient (BNVA) | payer OTHER, SELFPAY | PROVIDERS: PCP Internal Medicine; Visit Provider Physician Assistant Medical | DX: E11.42 Type 2 diabetes mellitus with diabetic polyneuropathy (principal); Z79.4 Long term (current) use of insulin | CPT/HCPCS: 82947; 99212 ==

== ENCOUNTER 2023-11-04 15:34 | Emergency (ER) | payer OTHER, SELFPAY ==
--- NOTE | 2023-11-04 15:45 | ED.GENADULT ---
HPI - General Adult General Chief complaint: Urogenital-Male Stated complaint: Abdominal pain/sent from Time Seen by Provider: 11/04/23 17:08 Source: patient Mode of arrival: ambulatory Limitations: no limitations History of Present Illness ED Provider: harjinder GAYLE narrative: Patient is type 2 diabetic comes here for dysuria frequency for last few days no fever no chills no history of frequent UTI no nausea no vomiting POC was 118 on arrival Related Data Home Medications ?Medication ?Instructions ?Recorded ?Confirmed polyethylene glycol 3350 17 17 g PO DAILY PRN Constipation 10/09/22 10/03/23 gram/dose oral powder (Miralax) blood-glucose meter (OneTouch #1 ea 11/27/22 10/03/23 Ultra2 Meter) atorvastatin 80 mg tablet 80 mg PO DAILY 05/11/23 10/03/23 cholecalciferol (vitamin D3) 50 50 mcg PO DAILY 05/11/23 10/03/23 mcg (2,000 unit) capsule (Vitamin D3) Monthly Medication Organizer 10/03/23 (Med-Box) Previous Rx's ?Medication ?Instructions ?Recorded SHOWER CHAIR #1 ea 10/05/20 SHOWER CHAIR #1 ea 01/10/21 fluticasone propionate 50 1 spray intranasal DAILY #16 grams 03/16/21 mcg/actuation nasal spray,suspension insulin syr/ndl U100 half gareth 0.5 #100 ea 05/14/21 mL 30 gauge x /16 pen needle, diabetic 31 gauge x #100 ea 03/12/22 516 (Lite Touch Insulin Pen Veteran) lancets 33 gauge (Oneuch Delica #100 ea 03/13/22 Lancets) dicyclomine 20 mg tablet 20 mg PO QID PRN abdominal pain 07/05/22 #20 tabs ondansetron HCl 4 mg tablet 4 mg PO Q6H PRN nausea and 07/06/22 vomiting #14 tabs metoclopramide HCl 10 mg tablet 10 mg PO AC PRN nausea and 11/12/22 (Reglan) vomiting #20 tabs blood sugar diagnostic 1 strip miscellaneous TID #100 11/27/22 strips blood sugar diagnostic (OneTouch #100 ea 01/13/23 Ultra Test strips) pen needle, diabetic 29 gauge x #100 ea 04/02/23 1/2 (BD Ultra-Fine Original Pen Needle) pen needle, diabetic 32 gauge x #1,200 ea 04/02/2332 (BD Ultra-Fine Brittany Pen Needle) WALKER #1 ea 04/09/23 oxybutynin chloride 10 mg 10 mg PO DAILY #90 tabs 04/16/23 tablet,extended release 24 hr tamsulosin 0.4 mg capsule (Flomax) 0.4 mg PO BEDTIME #90 caps 04/16/23 metoprolol tartrate 50 mg tablet 50 mg PO BID #180 tabs 06/08/23 gabapentin 400 mg capsule 400 mg PO TID #270 caps 06/11/23 walker #1 ea 06/15/23 docusate sodium 100 mg capsule 100 mg PO BID PRN constipation 30 07/11/23 days #60 caps lisinopril 10 mg tablet 10 mg PO DAILY 90 days #90 tabs 07/11/23 aspirin 81 mg tablet,delayed 81 mg PO DAILY #90 tabs 10/01/23 release paroxetine HCl 40 mg tablet 40 mg PO DAILY #90 tabs 10/01/23 cyanocobalamin (vitamin B-12) 1,000 mcg PO DAILY 90 days #90 tabs 10/03/23 1,000 mcg tablet hydroxyzine HCl 25 mg tablet 25 mg PO Q6H PRN anxiety 30 days 10/03/23 #120 tabs monthly medication organizer (med #1 ea 10/06/23 box) [facility] #1 ea 10/07/23 albuterol sulfate 90 mcg/actuation 2 puff PO Q4-6H PRN for wheezing 10/09/23 aerosol inhaler #8.5 grams insulin lispro 100 unit/mL 15 - 20 unit (0.15 - 0.2 mL) 10/13/23 subcutaneous pen (Humalog KwikPen subcut .TIDAC #15 mL (U-100) Insulin) omeprazole 40 mg capsule,delayed 40 mg PO DAILY #30 caps 10/17/23 release insulin glargine 100 unit/mL (3 80 unit (0.8 mL) subcut BID #45 mL 10/20/23 mL) subcutaneous pen (Lantus Solostar U-100 Insulin) blood-glucose meter,continuous #1 ea 10/21/23 (FreeStyle Iwona 3 Alder) blood-glucose sensor (FreeStyle #2 ea 10/21/23 Iwona 3 Sensor device) cefuroxime axetil 250 mg tablet 250 mg PO BID 7 days #14 tabs 11/04/23 phenazopyridine 200 mg tablet 200 mg PO TID 2 days #6 tabs 11/04/23 (Pyridium) Allergies Allergy/AdvReac Type Severity Reaction Status Date / Time hydromorphone [Dilaudid] AdvReac Unknown confusion Verified 11/04/23 15:51 From DILAUDID AdvReac Severe CONFUSION/H Uncoded 10/03/23 11:40 ALLUCIATION S From PERCOCET AdvReac Intermediate AGITATION Uncoded 10/03/23 11:40 Review of Systems Review of Systems: Yes all other systems are reviewed and are negative PMFSH Past Medical History Medical History Type 2 diabetes mellitus with neurologic complication Gastritis and duodenitis Vitamin B12 deficiency Hyperkalemia Intertrigo Major depressive disorder, recurrent Benign prostatic hyperplasia with urinary frequency Constipation Obstructive sleep apnea Vitamin D deficiency Diabetic polyneuropathy Diabetes mellitus Obesity (BMI 30-39.9) Benign essential hypertension Pure hypercholesterolemia Coronary artery disease Surgical History Hx of cataract extraction (~2011) History of quadruple bypass (~2005) Hx of cystoscopy History of prostate surgery (~12/04/10) Hx of cholecystectomy (~2007) Family History Family History Father Lung cancer Mother Diabetes Hypertension Stomach cancer Social History Social History Household Members: None Housing: Apartment Do you presently have visiting nurse or other home services: No Alcohol intake: never Patient Tobacco Use Status: Former Tobacco user Smoked in Last 30 Days: No e-Cigarette/Vaping Use: Never Used Second Hand Smoke Exposure: No Use of substances other than those prescribed or required for medical reasons: No Advance Directives: Yes Advance Directives on File: Yes Advance Directives Date on File: 07/24/23 Do you have a plan to hurt others: No Plan service: No Current occupational status: disabled Cognitive needs: Yes (cane) Hearing needs: No Vision needs: Yes Physical Exam ED Vital Signs: Vital Signs - 24 hr 11/04/23 15:47 11/04/23 17:28 11/04/23 17:49 Temperature 99.0 F 98 F 98.2 F Pulse Rate 59 55 55 Respiratory Rate 18 14 14 Blood Pressure 139/47 L 141/68 H 120/70 Pulse Oximetry 94 94 98 Oxygen Delivery Method Room Air Room Air Room Air BMI result Body Mass Index 39.5 Appearance: Alert. Oriented X3. No acute distress. Eyes: No pallor or icterus ENT: Pharynx normal. Oral Mucosa moist Neck: Normal inspection. Neck supple. CVS: Normal heart rate and rhythm. Pulses normal. Respiratory: No respiratory distress. Equal air entry bilateral, no wheezing/rales/rhonchi Abdomen: Soft and nontender. Bowel sounds are present, no mass palpable, no CVA tenderness Skin: Skin warm and dry. Normal skin color. Normal skin turgor. Extremities: No lower extremity edema. No calf tenderness Neuro: Oriented X 3. No motor deficit. Course Course Course Narrative: This is an RME done by SLOAN Monahan: Additional HPI, ROS, PE not included below will be deferred to primary provider. 68 year old male presenting from urgent care with complaints of urinary frequency, burning, foul smell, and abdominal pain for past 3-5 days. Pt states blood glucose was 219 around 12:30 today. Plan - labs, urine Appearance: Alert.? Oriented X3.? No acute cardiopulmonary distress distress.? Head: Normocephalic, atraumatic, no step-offs or deformities Neck: Normal inspection.? Neck supple.? CVS: Pulses normal.? Respiratory: No respiratory distress.? Abdomen: Soft and nontender.? Skin: ? Normal skin color. Extremities: 5/5 strength to bilateral upper and lower extremities Neuro: Oriented X 3.? No motor deficit.? No sensory deficit. Medications Administered Discontinued Medications Generic Name Dose Route Start Last Admin Trade Name Freq PRN Reason Stop Dose Admin Cefuroxime Axetil 500 mg 11/04/23 17:26 11/04/23 17:36 Cefuroxime Axetil 500 Mg Tablet PO 11/04/23 17:27 500 mg ONCE ONE Administration Phenazopyridine HCl 200 mg 11/04/23 17:26 11/04/23 17:35 Phenazopyridine Hcl 200 Mg Tablet PO 11/04/23 17:27 200 mg ONCE ONE Administration Medical Decision Making Medical Decision Making [facility] Narrative: Patient with uncomplicated UTI with no previous history of UTIs will prescribe Ceftin and Pyridium for symptoms culture of the urine advised to follow with PCP Differential Diagnosis Differential Diagnoses: The differential diagnosis associated with the presentation includes UTI/ pyelonephritis Lab Data [facility] Lab Attestation statement: I reviewed the patient's lab results. 11/04/23 16:43 11/04/23 16:43 Labs: Lab Results 11/04/23 11/04/23 Range/Units 16:43 16:55 WBC 10.1 (4.8-10.8) X10*3/uL RBC 3.72 L (4.60-5.80) X10*6/uL Hgb 11.2 L (14.0-18.0) g/dl Hct 32.8 L (42.0-52.0) % MCV 88.2 (80.0-98.0) fL MCH 30.1 (27.0-33.0) pg MCHC 34.1 (31.0-36.0) g/dl RDW 13.1 (11.0-16.0) % Plt Count 191 (160-400) X10*3/uL MPV 11.5 (9.4-12.4) fL Immature Gran % (Auto) 0.4 (0.0-0.4) % Neut % (Auto) 67.4 (45-73) % Lymph % (Auto) 21.9 (20-40) % Cecil % (Auto) 9.0 (2-11) % Eos % (Auto) 1.1 (0-4) % Baso % (Auto) 0.2 (0-2) % Lymph # (Auto) 2.2 (1.2-4.9) X10*3/uL Cecil # (Auto) 0.9 (0.1-1.2) X10*3/uL Eos # (Auto) 0.1 (0.0-0.4) X10*3/uL Baso # (Auto) 0.0 (0.0-0.2) X10*3/uL Abs Immat Gran (auto) 0.04 H (0.00-0.03) X10*3/uL Absolute Neuts (auto) 6.8 (2.0-8.3) x10*3/uL Absolute Nucleated RBC 0.000 (0.0-0.012) X10*3/uL Nucleated RBC % (auto) 0.0 (0.0-0.2) /100WBC VBG pH 7.52 H (7.32-7.43) VBG pCO2 35 mmHg VBG pO2 172 mmHg VBG HCO3 29 H (22-26) mmol/L VBG O2 Saturation 100.0 % VBG Base Excess 6.4 mmol/L Sodium 139 (135-145) mmol/L Potassium 4.2 (3.3-5.1) mmol/L Chloride 104 (96-108) mmol/L Carbon Dioxide 26 (22-29) mmol/L Anion Gap 13 (12-20) BUN 23 H (9-16) mg/dL Creatinine 1.34 (0.5-1.4) mg/dL Estim Creat Clear Calc 56.0 Estimated GFR 53 Random Glucose 118 H (60-115) mg/dL Calcium 9.2 (8.4-10.2) mg/dL Magnesium 1.8 (1.6-2.6) mg/dL Total Bilirubin 0.5 (0.0-1.0) mg/dL AST 25 (5-37) U/L ALT 28 (0-40) U/L Alkaline Phosphatase 100 (39-117) U/L Total Protein 6.8 (6.5-8.0) g/dL Albumin 3.5 (3.5-5.0) g/dL Lipase 11 (8-78) U/L Beta-Hydroxybutyrate 0.06 (0.02-0.27) mmol/L Urine Color Yellow Urine Appearance Turbid Urine pH 6.5 (5.0-9.0) Ur Specific [place] 1.020 (1.005-1.025) Urine Protein 100 (2+) H (Neg-Trace) mg/dL Urine Glucose (UA) Negative (Negative) mg/dL Urine Ketones Trace (Negative) mg/dL Urine Blood Moderate (2+) H (Negative) Urine Nitrite Negative (Negative) Ur Leukocyte Esterase Large (3+) H (Negative) Urine RBC >20 H (0-2) /HPF Urine WBC >50 H (0-5) /HPF Ur Squamous Epith Cells 0-2 (0-2) /HPF Urine Bacteria Trace (None Seen) Hyaline Casts 0-2 (0-2) /LPF Discharge Plan Discharge Clinical Impression: Acute UTI Patient Disposition: Home, Self-Care Instructions: Urinary Tract Infection in Men (ED) Additional Instructions: Drink plenty of fluids Take antibiotics as prescribed Pyridium every 8 hours as needed for 2 days for symptoms Report to the ER/PCP if high fever/vomiting/increased flank pain Prescriptions: New cefuroxime axetil 250 mg tablet 250 mg PO BID 7 Days Qty: 14 0RF phenazopyridine [Pyridium] 200 mg tablet 200 mg PO TID 2 Days Qty: 6 0RF No Action fluticasone propionate 50 mcg/actuation spray,suspension 1 spray intranasal DAILY Qty: 16 2RF (DME) pen needle, diabetic [Lite Touch Insulin Pen Veteran] 31 gauge x 5/16 needle See Rx Instructions .Route Qty: 100 12RF Rx Instructions: Use 3 times daily (DME) lancets [OneTouch Delica Lancets] 33 gauge misc See Rx Instructions .Route Qty: 100 12RF Rx Instructions: As directed 3 times a day metoclopramide HCl [Reglan] 10 mg tablet 10 mg PO AC PRN (Reason: nausea and vomiting) Qty: 20 0RF OneTouch Ultra Blue Test Strip Strip 1 strip miscellaneous TID Qty: 100 3RF (DME) blood-glucose meter [OneTouch Ultra2 Meter] Mis See Rx Instructions .ROUTE TID Qty: 1 Rx Instructions: test 3 times per day (DME) OneTouch Ultra Test Strip See Rx Instructions .Route Qty: 100 8RF Rx Instructions: test 3 times per day (DME) pen needle, diabetic [BD Ultra-Fine Orig Pen Needle] 29 gauge x 1/2 needle See Rx Instructions .Route Qty: 100 12RF Rx Instructions: 3 times daily (DME) pen needle, diabetic [BD Ultra-Fine Brittany Pen Needle] 32 gauge x 5/32 needle See Rx Instructions .Route Qty: 1200 4RF Rx Instructions: test 3 times daily (DME) WALKER See Rx Instructions .Route .MEDSUPPLY Qty: 1 0RF Rx Instructions: As directed metoprolol tartrate 50 mg tablet 50 mg PO BID Qty: 180 1RF docusate sodium 100 mg capsule 100 mg PO BID PRN (Reason: constipation) 30 Days Qty: 60 3RF lisinopril 10 mg tablet 10 mg PO DAILY 90 Days Qty: 90 1RF aspirin 81 mg tablet,delayed release (DR/EC) 81 mg PO DAILY Qty: 90 0RF paroxetine HCl 40 mg tablet 40 mg PO DAILY Qty: 90 0RF (DME) Monthly Medication Organizer (Med-Box) 0 .Route .MEDSUPPLY (DME) monthly medication organizer (med box) See Rx Instructions .Route .MEDSUPPLY Qty: 1 0RF Rx Instructions: monthly medication organizer box; (DME) Semi-[facility] Bed See Rx Instructions .Route .MEDSUPPLY Qty: 1 0RF Rx Instructions: As directed albuterol sulfate 90 mcg/actuation HFA aerosol inhaler 2 puff PO Q4-6H PRN (Reason: for wheezing) Qty: 8.5 2RF insulin lispro [Humalog KwikPen Insulin] 100 unit/mL insulin pen 15 - 20 unit subcut .TIDAC Qty: 15 3RF omeprazole 40 mg capsule,delayed release(DR/EC) 40 mg PO DAILY Qty: 30 3RF insulin glargine [Lantus Solostar U-100 Insulin] 100 unit/mL (3 mL) insulin pen 80 unit subcut BID Qty: 45 3RF dicyclomine 20 mg tablet 20 mg PO QID PRN (Reason: abdominal pain) Qty: 20 0RF ondansetron HCl 4 mg tablet 4 mg PO Q6H PRN (Reason: nausea and vomiting) Qty: 14 0RF polyethylene glycol 3350 [Miralax] 17 gram/dose powder 17 g PO DAILY PRN (Reason: Constipation) atorvastatin 80 mg tablet 80 mg PO DAILY cholecalciferol (vitamin D3) [Vitamin D3] 50 mcg (2,000 unit) capsule 50 mcg PO DAILY (DME) SHOWER CHAIR See Rx Instructions .Route .MEDSUPPLY Qty: 1 0RF Rx Instructions: [place] [place] SHOWER [place]AIR See Rx Instructions .Route .MEDSUPPLY Qty: 1 0RF Rx Instructions: [place] [place] syr/ndl U100 half gareth 0.5 mL 30 gauge x 5/16 syringe See Rx Instructions .Route Qty: 100 12RF Rx Instructions: Use 4 times daily gabapentin 400 mg capsule 400 mg PO TID Qty: 270 1RF (DME) walker Misc See Rx Instructions .Route Qty: 1 0RF Rx Instructions: As directed hydroxyzine HCl 25 mg tablet 25 mg PO Q6H PRN (Reason: anxiety) 30 Days Qty: 120 3RF cyanocobalamin (vitamin B-12) 1,000 mcg tablet 1,000 mcg PO DAILY 90 Days Qty: 90 3RF oxybutynin chloride 10 mg tablet extended release 24hr 10 mg PO DAILY Qty: 90 1RF tamsulosin [Flomax] 0.4 mg capsule 0.4 mg PO BEDTIME Qty: 90 2RF (DME) FreeStyle Iwona 3 Sensor Device See Rx Instructions .ROUTE .MEDSUPPLY Qty: 2 11RF Rx Instructions: As directed (DME) FreeStyle Iwona 3 Alder Misc See Rx Instructions .ROUTE .MEDSUPPLY Qty: 1 0RF Rx Instructions: as directed Interventions: ED Discharge Assessment Last Done: 11/04/23 17:49 Discharge Date/Time: 11/04/23 17:52 Print Language: Romanian
[2023-11-04 15:47] VITALS: BP 139/47; PULSE 59; RESP 18; TEMP 37.2; O2SAT 94; BMI 39.5
[2023-11-04 16:49] LABS: MANUAL DIFF FLAG NO
[2023-11-04 16:51] LABS: Appearance Urine Turbid; Color Urine Yellow; Glucose Urine UA Negative (Negative); Leukocyte Esterase Urine Large (3+) (Negative); Nitrite Urine Negative (Negative); PH 6.5 (5.0-9.0); UMIC TRIGGER UACC YES; Urine Blood Moderate (2+) (Negative); Urine Ketones Trace mg/dL (Negative); Urine Protein 100 (2+) mg/dL (Neg-Trace)
[2023-11-04 16:53] LABS: Bacteria Urine Trace (None Seen); Hyaline Casts Urine 0-2 /LPF (0-2); RBC Urine >20 /HPF (0-2); Squamous Epithelial Cell Urine 0-2 /HPF (0-2); UACC Culture Trigger YES; WBC Urine >50 /HPF (0-5)
[2023-11-04 16:58] LABS: Basophils Percent Auto 0.2 % (0-2); Eosinophils Absolute Auto 0.1 X10*3/uL (0.0-0.4); Eosinophils Percent Auto 1.1 % (0-4); Hematocrit 32.8 % (42.0-52.0); Hemoglobin 11.2 g/dl (14.0-18.0); Imm Gran Abs Auto 0.04 X10*3/uL (0.00-0.03); Imm Gran Pct Auto 0.4 % (0.0-0.4); Lymphocytes Absolute Auto 2.2 X10*3/uL (1.2-4.9); Lymphocytes Percent Auto 21.9 % (20-40); Mean Corpuscular HGB Conc 34.1 g/dl (31.0-36.0); Mean Corpuscular Hemoglobin 30.1 pg (27.0-33.0); Mean Corpuscular Volume 88.2 fL (80.0-98.0); Mean Platelet Volume 11.5 fL (9.4-12.4); Monocytes Absolute Auto 0.9 X10*3/uL (0.1-1.2); Neutrophils Absolute Auto 6.8 x10*3/uL (2.0-8.3); Neutrophils Percent Auto 67.4 % (45-73); Platelet Count 191 X10*3/uL (160-400); Red Blood Count 3.72 X10*6/uL (4.60-5.80); Red Cell Distribution Width 13.1 % (11.0-16.0); White Blood Count 10.1 X10*3/uL (4.8-10.8)
[2023-11-04 16:58] LABS: VBG Base Excess 6.4 mmol/L; VBG HCO3 29 mmol/L (22-26); VBG pCO2 35 mmHg; VBG pH 7.52 (7.32-7.43); VBG pO2 172 mmHg
[2023-11-04 17:11] LABS: Alanine Aminotransferase 28 U/L (0-40); Albumin Level 3.5 g/dL (3.5-5.0); Alkaline Phosphatase 100 U/L (39-117); Anion Gap 13 (12-20); Aspartate Amino Transferase 25 U/L (5-37); Bilirubin Total 0.5 mg/dL (0.0-1.0); Blood Urea Nitrogen 23 mg/dL (9-16); Calcium 9.2 mg/dL (8.4-10.2); Carbon Dioxide 26 mmol/L (22-29); Chloride 104 mmol/L (96-108); Estimated Glomerular Filt Rate 53; Glucose Random 118 mg/dL (60-115); Lipase 11 U/L (8-78); Magnesium 1.8 mg/dL (1.6-2.6); Potassium 4.2 mmol/L (3.3-5.1); Sodium 139 mmol/L (135-145); Total Protein 6.8 g/dL (6.5-8.0)
[2023-11-04 17:28] VITALS: BP 141/68; PULSE 55; RESP 14; TEMP 36.6; O2SAT 94
[2023-11-04] MEDS: Phenazopyridine HCL 200 MG TABLET PO (17:35)
[2023-11-04] MEDS: cefuroxime axetiL 500 MG TABLET PO (17:36)
[2023-11-04 17:49] VITALS: BP 120/70; PULSE 55; RESP 14; TEMP 36.8; O2SAT 98
[2023-11-04 18:18] LABS: Beta-Hydroxybutyrate 0.06 mmol/L (0.02-0.27)
[2023-11-04 18:25] LABS: Venous Blood Gas Refer to POC result
== END 2023-11-04 17:52 | disposition home or self-care (01) ==
PROVIDERS: Physician Assistant; Emergency Provider Internal Medicine; PCP Internal Medicine
DX: N39.0 Urinary tract infection, site not specified (principal); R30.0 Dysuria; R35.0 Frequency of micturition; Z79.899 Other long term (current) drug therapy
CPT/HCPCS: 36415; 80053; 81001; 82010; 82803; 83690; 83735; 85025; 87086; 99283; 99284

== ENCOUNTER 2023-11-12 10:09 | Outpatient (AMB) | payer OTHER, SELFPAY ==
--- NOTE | 2023-11-12 10:39 | MHC.AMDMED ---
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 Name: Pt's Nemissy Allergies hydromorphone [Dilaudid] Adverse Reaction (Unknown, Verified 11/04/23 15:51) confusion From DILAUDID Adverse Reaction (Severe, Uncoded 10/03/23 11:40) CONFUSION/HALLUCIATIONS From PERCOCET Adverse Reaction (Intermediate, Uncoded 10/03/23 11:40) AGITATION HPI Comprehensive Diabetes Asmnt Most Recent Diabetes Results: Creatinine 1.34 mg/dL (0.5-1.4) 11/04/23 Blood Urea Nitrogen 23 mg/dL (9-16) H 11/04/23 Sodium 139 mmol/L (135-145) 11/04/23 Potassium 4.2 mmol/L (3.3-5.1) 11/04/23 Chloride 104 mmol/L (96-108) 11/04/23 Carbon Dioxide 26 mmol/L (22-29) 11/04/23 Calcium 9.2 mg/dL (8.4-10.2) 11/04/23 AST 25 U/L (5-37) 11/04/23 ALT 28 U/L (0-40) 11/04/23 Total Protein 6.8 g/dL (6.5-8.0) 11/04/23 Albumin 3.5 g/dL (3.5-5.0) 11/04/23 [facility] Medical History Type 2 diabetes mellitus with neurologic complication Gastritis and duodenitis Vitamin B12 deficiency Hyperkalemia Intertrigo Major depressive disorder, recurrent Benign prostatic hyperplasia with urinary frequency Constipation Obstructive sleep apnea Vitamin D deficiency Diabetic polyneuropathy Diabetes mellitus Obesity (BMI 30-39.9) Benign essential hypertension Pure hypercholesterolemia Coronary artery disease Surgical History Hx of cataract extraction (~2011) History of quadruple bypass (~2005) Hx of cystoscopy History of prostate surgery (~12/04/10) Hx of cholecystectomy (~2007) Family History Father Lung cancer Mother Diabetes Hypertension Stomach cancer Social History Household Members: None Housing: Apartment Do you presently have visiting nurse or other home services: No Alcohol intake: never Patient Tobacco Use Status: Former Tobacco user e-Cigarette/Vaping Use: Never Used Second Hand Smoke Exposure: No Advance Directives Date on File: 07/24/23 service: No Current occupational status: disabled Cognitive needs: Yes (cane) Hearing needs: No Vision needs: Yes Assessment & Plan Assessment & Plan (1) Type 2 diabetes mellitus with neurologic complication: Code(s): E11.49 - Type 2 diabetes mellitus with other diabetic neurological complication Qualifiers: Diabetes mellitus terminal superintendent insulin use: with terminal superintendent use Diabetes mellitus complication detail: with polyneuropathy Qualified Code(s): E11.42 - Type 2 diabetes mellitus with diabetic polyneuropathy; Z79.4 - USP (current) use of insulin Plan: Patient at visit to set up an insert Iwona 3 Instructed patient sensors water proof you can shower, or swim do not submerge sensor in water for over 30 minutes Is sensor falls off cannot put back in you need to replace sensor, customer service number given to patient for sensor replacement Sensor placed on the back of L arm Patient left visit with sensor in warmup Patient visit with his niece, patient's niece wanted to know if patient would it be able to use an insulin pump to administer insulin because he forgets to take his insulin in the evening when he is alone. Discussed with patient and his niece different options for insulin pump therapy, patient declined insulin pump therapy at this time Reviewed how to interpret trend arrows Reminded patient that to check finger sticks if symptoms do not match sensor reading. Discussed lag time between finger stick and sensor data.? Instructed patient she should always keep blood glucometer for backup testing if needed Reviewed delay of CGM from fingersticks Reminded pt that if symptoms do not match sensor still needs to check fingersticks. Portions of this note were created using voice recognition software, please excuse any words or phrases that may have been misinterpreted. Coding Level of Care Code Est Pt Level 1 (74876) Diagnoses Type 2 diabetes mellitus with diabetic polyneuropathy, with long-term current use of insulin E11.42; Z79.4 Diabetes mellitus group home insulin use: with group home use Diabetes mellitus complication detail: with polyneuropathy
== END 2023-11-12 11:08 | disposition home or self-care (01) ==
PROVIDERS: PCP Internal Medicine; Visit Provider Registered Nurse Diabetes Educator
DX: E11.42 Type 2 diabetes mellitus with diabetic polyneuropathy (principal); Z79.4 Long term (current) use of insulin

== ENCOUNTER → 2023-11-12 10:09 | Outpatient (BNVA) | payer OTHER, SELFPAY | PROVIDERS: PCP Internal Medicine; Visit Provider Registered Nurse Diabetes Educator | DX: E11.49 Type 2 diabetes mellitus with other diabetic neurological complication (principal); E11.42 Type 2 diabetes mellitus with diabetic polyneuropathy; Z79.4 Long term (current) use of insulin; Z71.89 Other specified counseling | CPT/HCPCS: 99211 ==

== ENCOUNTER 2023-11-20 09:55 | Emergency (ER) | payer OTHER, SELFPAY ==
--- NOTE | ~2023-11-20 | XR_ITS ---
EXAMINATION: XR CHEST CLINICAL INFORMATION: Shortness of breath. COMPARISON: Chest radiograph dated May 09, 2023. TECHNIQUE: 2 views of the chest were obtained. FINDINGS: There are sternotomy sutures. There are mediastinal clips. The heart is normal in size. There are low lung volumes. No consolidation. No pleural effusion or pneumothorax. No acute osseous abnormality. XR/XR chest 2V IMPRESSION: No acute cardiopulmonary disease. Electronically signed by: Jorge Landers DO 11/20/2023 07:14 PM EDT
--- NOTE | ~2023-11-20 | CT_ITS ---
EXAMINATION: CT ABDOMEN AND PELVIS WITH CONTRAST CLINICAL INFORMATION: Abdominal pain COMPARISON: 02/11/2023 TECHNIQUE: Multidetector volumetric images were obtained from the superior aspect of the liver through the pubic symphysis following administration 85 mL of Omnipaque 350 intravenous contrast. Sagittal and coronal reformatted images were obtained on the technologist's workstation. Oral contrast: No This CT examination was performed using dose optimization techniques as appropriate, variously including the following: *Automated exposure control *Adjustment of mA and/or kV according to patient size (this includes techniques or standardized protocols for targeted exams where dose is matched to indication/reason for exam; i.e. extremities or head) *Use of iterative reconstruction technique DLP: 1297 mGy-cm FINDINGS: LUNG BASES: Unremarkable. ABDOMINAL AND PELVIC WALL: Unremarkable. LIVER AND BILIARY TREE: Unremarkable. GALLBLADDER: Status post cholecystectomy. PANCREAS: Unremarkable. SPLEEN: Unremarkable. ADRENAL GLANDS: Unremarkable. KIDNEYS AND URETERS: Unremarkable. GASTROINTESTINAL TRACT: Unremarkable. Appendix is within normal limits. VASCULAR: Aortic atherosclerotic calcifications, no aneurysmal dialation. LYMPH NODES/PERITONEUM: No lymphadenopathy. FREE FLUID: None. BLADDER: Unremarkable. PELVIC VISCERA: Unremarkable. OSSEOUS STRUCTURES: Degenerative changes of the spine. CT/CT abdomen pelvis w IV con IMPRESSION: No acute intra-abdominal abnormality. Electronically signed by: Tami Bell MD 11/20/2023 11:56 PM EDT
[2023-11-20 10:14] VITALS: BP 165/48; PULSE 62; RESP 20; TEMP 35.7; O2SAT 97; BMI 41.2
[2023-11-20 10:37] LABS: MANUAL DIFF FLAG NO
[2023-11-20 10:40] LABS: Basophils Percent Auto 0.3 % (0-2); Eosinophils Absolute Auto 0.1 X10*3/uL (0.0-0.4); Eosinophils Percent Auto 0.9 % (0-4); Hematocrit 38.4 % (42.0-52.0); Hemoglobin 13.1 g/dl (14.0-18.0); Imm Gran Abs Auto 0.04 X10*3/uL (0.00-0.03); Imm Gran Pct Auto 0.4 % (0.0-0.4); Lymphocytes Absolute Auto 2.3 X10*3/uL (1.2-4.9); Lymphocytes Percent Auto 20.3 % (20-40); Mean Corpuscular HGB Conc 34.1 g/dl (31.0-36.0); Mean Corpuscular Volume 87.9 fL (80.0-98.0); Mean Platelet Volume 11.2 fL (9.4-12.4); Monocytes Absolute Auto 0.8 X10*3/uL (0.1-1.2); Neutrophils Percent Auto 71.1 % (45-73); Platelet Count 221 X10*3/uL (160-400); Red Blood Count 4.37 X10*6/uL (4.60-5.80); Red Cell Distribution Width 12.6 % (11.0-16.0); White Blood Count 11.2 X10*3/uL (4.8-10.8)
[2023-11-20 10:59] LABS: Alanine Aminotransferase 35 U/L (0-40); Anion Gap 14 (12-20); Aspartate Amino Transferase 23 U/L (5-37); Bilirubin Direct 0.1 mg/dL (0.0-0.5); Bilirubin Total 0.4 mg/dL (0.0-1.0); Blood Urea Nitrogen 22 mg/dL (9-16); Calcium 9.7 mg/dL (8.4-10.2); Carbon Dioxide 27 mmol/L (22-29); Chloride 105 mmol/L (96-108); Creatinine Clr Calc Pharmacy 70.5; Estimated Glomerular Filt Rate > 60; Glucose Random 121 mg/dL (60-115); Potassium 3.5 mmol/L (3.3-5.1); Sodium 142 mmol/L (135-145)
[2023-11-20 11:00] LABS: Alkaline Phosphatase 140 U/L (39-117); Lipase 14 U/L (8-78); Total Protein 7.6 g/dL (6.5-8.0)
[2023-11-20 11:17] LABS: Influenza A PCR NEGATIVE (Negative); Influenza B PCR NEGATIVE (Negative); Resp Syncy Virus RNA Qual PCR NEGATIVE (Negative); SARS COV2 PCR INHOUSE NEGATIVE (Negative)
[2023-11-20 16:09] VITALS: BP 162/71; PULSE 60; RESP 16; TEMP 36.5; O2SAT 97
[2023-11-20 16:19] LABS: Glucose, Whole Blood 157 mg/dL (60-115)
--- NOTE | 2023-11-20 17:07 | ED.GENADULT ---
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 Per the patient and his niece who is his primary caregiver, the patient has had decreased appetite for the last 3 days. He had abdominal pain starting this morning and he vomited 3 times today The patient's niece states the patient was complaining of left upper abdominal pain He reports some chest pain 2 days ago but this resolved he has not had chest pain since The patient does endorse some shortness of breath, no fevers or coughing He denies any history abdominal surgeries There have been no reported sick contacts at home No other complaints or concerns at this time Related Data Home Medications ?Medication ?Instructions ?Recorded ?Confirmed polyethylene glycol 3350 17 17 g PO DAILY PRN Constipation 10/09/22 10/03/23 gram/dose oral powder (Miralax) blood-glucose meter (Steelwedge SoftwareTouch #1 ea 11/27/22 10/03/23 Ultra2 Meter) atorvastatin 80 mg tablet 80 mg PO DAILY 05/11/23 10/03/23 Monthly Medication Organizer 10/03/23 (Med-Box) Previous Rx's ?Medication ?Instructions ?Recorded SHOWER CHAIR #1 ea 10/05/20 SHOWER CHAIR #1 ea 01/10/21 fluticasone propionate 50 1 spray intranasal DAILY #16 grams 03/16/21 mcg/actuation nasal spray,suspension insulin syr/ndl U100 half gareth 0.5 #100 ea 05/14/21 mL 30 gauge x 5/16 pen needle, diabetic 31 gauge x #100 ea 03/12/22 5/16 (Lite Touch Insulin Pen [place]) lancets 33 gauge (Steelwedge SoftwareTouch Delica #100 ea 03/13/22 Lancets) dicyclomine 20 mg tablet 20 mg PO QID PRN abdominal pain 07/05/22 #20 tabs ondansetron HCl 4 mg tablet 4 mg PO Q6H PRN nausea and 07/06/22 vomiting #14 tabs metoclopramide HCl 10 mg tablet 10 mg PO AC PRN nausea and 11/12/22 (Reglan) vomiting #20 tabs blood sugar diagnostic 1 strip miscellaneous TID #100 11/27/22 strips blood sugar diagnostic (OneTouch #100 ea 01/13/23 Ultra Test strips) pen needle, diabetic 29 gauge x #100 ea 04/02/2303/11 (BD Ultra-Fine Original Pen Needle) pen needle, diabetic 32 gauge x #1,200 ea 04/02/23 (BD Ultra-Fine Brittany Pen Needle) WALKER #1 ea 04/09/23 oxybutynin chloride 10 mg 10 mg PO DAILY #90 tabs 04/16/23 tablet,extended release 24 hr tamsulosin 0.4 mg capsule (Flomax) 0.4 mg PO BEDTIME #90 caps 04/16/23 metoprolol tartrate 50 mg tablet 50 mg PO BID #180 tabs 06/08/23 gabapentin 400 mg capsule 400 mg PO TID #270 caps 06/11/23 walker #1 ea 06/15/23 docusate sodium 100 mg capsule 100 mg PO BID PRN constipation 30 07/11/23 days #60 caps lisinopril 10 mg tablet 10 mg PO DAILY 90 days #90 tabs 07/11/23 aspirin 81 mg tablet,delayed 81 mg PO DAILY #90 tabs 10/01/23 release paroxetine HCl 40 mg tablet 40 mg PO DAILY #90 tabs 10/01/23 cyanocobalamin (vitamin B-12) 1,000 mcg PO DAILY 90 days #90 tabs 10/03/23 1,000 mcg tablet hydroxyzine HCl 25 mg tablet 25 mg PO Q6H PRN anxiety 30 days 10/03/23 #120 tabs monthly medication organizer (med #1 ea 10/06/23 box) Semi-Electric Hospital Bed #1 ea 10/07/23 albuterol sulfate 90 mcg/actuation 2 puff PO Q4-6H PRN for wheezing 10/09/23 aerosol inhaler #8.5 grams insulin lispro 100 unit/mL 15 - 20 unit (0.15 - 0.2 mL) 10/13/23 subcutaneous pen (Humalog KwikPen subcut .TIDAC #15 mL (U-100) Insulin) omeprazole 40 mg capsule,delayed 40 mg PO DAILY #30 caps 10/17/23 release insulin glargine 100 unit/mL (3 80 unit (0.8 mL) subcut BID #45 mL 10/20/23 mL) subcutaneous pen (Lantus Solostar U-100 Insulin) blood-glucose meter,continuous #1 ea 10/21/23 (FreeStyle [place] 3 [place]) blood-glucose sensor (FreeStyle #2 ea 10/21/23 Iwona 3 Sensor device) cefuroxime axetil 250 mg tablet 250 mg PO BID 7 days #14 tabs 11/04/23 phenazopyridine 200 mg tablet 200 mg PO TID 2 days #6 tabs 11/04/23 (Pyridium) cholecalciferol (vitamin D3) 50 50 mcg PO DAILY #90 caps 11/19/23 mcg (2,000 unit) capsule (Vitamin D3) ondansetron 4 mg disintegrating 4 mg PO Q8H PRN nausea and 11/21/23 tablet vomiting #20 tabs Allergies Allergy/AdvReac Type Severity Reaction Status Date / Time hydromorphone [Dilaudid] AdvReac Unknown confusion Verified 11/20/23 10:16 From DILAUDID AdvReac Severe CONFUSION/H Uncoded 10/03/23 11:40 ALLUCIATION S From PERCOCET AdvReac Intermediate AGITATION Uncoded 10/03/23 11:40 Review of Systems Constitutional: Constitutional: Denies body ache(s), Denies chills and Denies fever(s) ENT: Denies sore throat Cardiovascular: Cardiovascular: Reports chest pain and Reports dyspnea Respiratory: Respiratory: Denies cough and Reports dyspnea Gastrointestinal: Gastrointestinal: Reports abdominal pain, Denies hematochezia, Reports nausea and Reports vomiting Musculoskeletal: Musculoskeletal: Denies back pain Integumentary/Breasts: Skin/Breast: Denies rash PMFSH Past Medical History Medical History Type 2 diabetes mellitus with neurologic complication Gastritis and duodenitis Vitamin B12 deficiency Hyperkalemia Intertrigo Major depressive disorder, recurrent Benign prostatic hyperplasia with urinary frequency Constipation Obstructive sleep apnea Vitamin D deficiency Diabetic polyneuropathy Diabetes mellitus Obesity (BMI 30-39.9) Benign essential hypertension Pure hypercholesterolemia Coronary artery disease Surgical History Hx of cataract extraction (~2011) History of quadruple bypass (~2005) Hx of cystoscopy History of prostate surgery (~12/04/10) Hx of cholecystectomy (~2007) Family History Family History Father Lung cancer Mother Diabetes Hypertension Stomach cancer Social History Social History Household Members: None Housing: Apartment Do you presently have visiting nurse or other home services: No Alcohol intake: never Patient Tobacco Use Status: Former Tobacco user e-Cigarette/Vaping Use: Never Used Second Hand Smoke Exposure: No Advance Directives: Yes Advance Directives on File: Yes Advance Directives Date on File: 07/24/23 Do you have a plan to hurt others: No Plan service: No Current occupational status: disabled Cognitive needs: Yes (cane) Hearing needs: No Vision needs: Yes Physical Exam ED Vital Signs: Vital Signs - 24 hr 11/20/23 10:14 11/20/23 16:09 11/20/23 18:48 Temperature 96.3 F L 97.7 F 97.7 F Pulse Rate 62 60 68 Respiratory Rate 20 16 14 Blood Pressure 165/48 H 162/71 H 186/75 H Pulse Oximetry 97 97 97 Oxygen Delivery Method Room Air Room Air Room Air Oxygen Flow Rate 11/20/23 20:00 11/20/23 22:00 Temperature 97.4 F 97.5 F Pulse Rate 72 81 Respiratory Rate 19 19 Blood Pressure 147/74 H 176/89 H Pulse Oximetry 100 93 Oxygen Delivery Method Nasal Cannula Room Air Oxygen Flow Rate 4 BMI result Body Mass Index 41.2 Const General: healthy appearing, comfortable, no acute distress, alert and awake Nutritional Appearance: well nourished Orientation/consciousness: patient oriented x3 HENMT Head: Yes normocephalic and Yes atraumatic Eyes Eyelids: Yes eyelids normal Conjunctivae: conjunctivae normal Sclerae: sclerae normal Corneas: corneas normal Pupils: Equal, round and reactive pupils present EOM: EOMs intact bilaterally Neck Neck: Yes full ROM Resp Effort & Inspection: normal respiratory effort, able to speak in complete sentences, no audible wheezes and not labored Auscultation: clear to auscultation bilaterally Cardio Rate: regular rate Rhythm: regular rhythm GI Inspection: No distended Palpation (GI): Soft to palpation, not firm, Tenderness to palpation present (GI) in the LLQ, in the RLQ and in the LUQ; not in the RUQ, no guarding and not rigid Skin General skin exam: elasticity normal Neuro General: patient oriented x3 Cranial nerves: Yes Equal, round and reactive pupils present and Yes Bilaterally intact EOM present Cognition (Neuro): normal cognition Extrem Other: Moving all extremities well without any obvious deformities Course Reevaluation(s) Reevaluation #1: Patient's workup is negative, the white count was likely from vomiting. CT scan shows no infectious, obstructive pathology. The patient is feeling better, he is able to ambulate without vomiting. He is comfortable with discharge at this time. I discussed this with the patient and his niece who is bedside Time: 00:03 Medications Administered Discontinued Medications Generic Name Dose Route Start Last Admin Trade Name Freq PRN Reason Stop Dose Admin Hydroxyzine HCl 25 mg 11/20/23 17:48 11/20/23 17:55 Hydroxyzine Hcl 25 Mg Tablet PO 11/20/23 17:49 25 mg ONCE ONE Administration Sodium Chloride 1,000 mls @ 999 mls/hr 11/20/23 17:00 11/20/23 18:06 Ns IV 11/20/23 18:00 999 mls/hr .Q1H1M ABELARDO Administration Iohexol 85 ml 11/20/23 21:16 11/20/23 21:16 Iohexol 350 Mg/Ml 100 Ml Infus..Btl IV 11/20/23 21:17 85 ml ONCE ONE Administration Lorazepam 2 mg 11/20/23 20:11 11/20/23 20:28 Lorazepam 2 Mg/Ml Vial IVPUSH 11/20/23 20:12 2 mg ONCE ONE Administration Ondansetron HCl 4 mg 11/20/23 16:56 11/20/23 18:06 Ondansetron Hcl 4 Mg/2 Ml Vial IVPUSH 11/20/23 16:57 4 mg ONCE ONE Administration Medical Decision Making Medical Decision Making MDM Narrative: 68-year-old male past medical history as documented above presents for evaluation of mostly abdominal pain and shortness a breath. He also complains of weakness, lightheadedness and headache. Per his knees, his vomiting appears to be positional. His labs ordered in triage are indicative of a leukocytosis of 11.2, this may just be reactive to vomiting but could represent infectious pathology. The patient does have generalized abdominal tenderness, he has tenderness in the right lower quadrant, left lower quadrant and left quadrant. There was no specific right upper quadrant, so biliary disease is less likely. Patient has a mild anemia is actually improved compared to his baseline. This may be due to hemoconcentration from vomiting he has no significant left shift. Patient has chronic kidney disease and his elevated BUN of 22 is indicative of that, his creatinine is within normal limits at 1.09. The patient is a diabetic with a random glucose of 121, no evidence of DKA. Alk-phos is elevated to 140. The patient has a history of alcohol abuse but is not an active drinker. Plan for chest x-ray, CT scan of the abdomen pelvis. Viral swabs negative. The patient was recently treated for a UTI, he complete his antibiotics, we will repeat a urinalysis to evaluate for continued UTI Differential Diagnosis Differential Diagnoses: The differential diagnosis associated with the presentation includes Viral syndrome Pneumonia Gastroenteritis Acute appendicitis Peptic ulcer disease Bowel obstruction less likely UTI Lab Data MDM Lab Attestation statement: I reviewed the patient's lab results. 11/20/23 10:34 11/20/23 10:34 Labs: Lab Results 11/20/23 11/20/23 11/20/23 Range/Units 10:34 16:07 18:04 WBC 11.2 H (4.8-10.8) X10*3/uL RBC 4.37 L (4.60-5.80) X10*6/uL Hgb 13.1 L (14.0-18.0) g/dl Hct 38.4 L (42.0-52.0) % MCV 87.9 (80.0-98.0) fL MCH 30.0 (27.0-33.0) pg MCHC 34.1 (31.0-36.0) g/dl RDW 12.6 (11.0-16.0) % Plt Count 221 (160-400) X10*3/uL MPV 11.2 (9.4-12.4) fL Immature Gran % (Auto) 0.4 (0.0-0.4) % Neut % (Auto) 71.1 (45-73) % Lymph % (Auto) 20.3 (20-40) % Ness % (Auto) 7.0 (2-11) % Eos % (Auto) 0.9 (0-4) % Baso % (Auto) 0.3 (0-2) % Lymph # (Auto) 2.3 (1.2-4.9) X10*3/uL Ness # (Auto) 0.8 (0.1-1.2) X10*3/uL Eos # (Auto) 0.1 (0.0-0.4) X10*3/uL Baso # (Auto) 0.0 (0.0-0.2) X10*3/uL Abs Immat Gran (auto) 0.04 H (0.00-0.03) X10*3/uL Absolute Neuts (auto) 8.0 (2.0-8.3) x10*3/uL Absolute Nucleated RBC 0.000 (0.0-0.012) X10*3/uL Nucleated RBC % (auto) 0.0 (0.0-0.2) /100WBC Sodium 142 (135-145) mmol/L Potassium 3.5 (3.3-5.1) mmol/L Chloride 105 (96-108) mmol/L Carbon Dioxide 27 (22-29) mmol/L Anion Gap 14 (12-20) BUN 22 H (9-16) mg/dL Creatinine 1.09 (0.5-1.4) mg/dL Estim Creat Clear Calc 70.5 Estimated GFR > 60 POC Glucose 157 H (60-115) mg/dL Random Glucose 121 H (60-115) mg/dL Calcium 9.7 (8.4-10.2) mg/dL Total Bilirubin 0.4 (0.0-1.0) mg/dL Direct Bilirubin 0.1 (0.0-0.5) mg/dL AST 23 (5-37) U/L ALT 35 (0-40) U/L Alkaline Phosphatase 140 H (39-117) U/L Troponin I High Sens 5.0 D (<3.5-35.0) ng/L Total Protein 7.6 (6.5-8.0) g/dL Albumin 4.0 (3.5-5.0) g/dL Lipase 14 (8-78) U/L Urine Color Urine Appearance Urine pH (5.0-9.0) Ur Specific Alvo (1.005-1.025) Urine Protein (Neg-Trace) mg/dL Urine Glucose (UA) (Negative) mg/dL Urine Ketones (Negative) mg/dL Urine Blood (Negative) Urine Nitrite (Negative) Ur Leukocyte Esterase (Negative) Urine RBC (0-2) /HPF Urine WBC (0-5) /HPF Ur Squamous Epith Cells (0-2) /HPF Urine Bacteria (None Seen) Hyaline Casts (0-2) /LPF Influenza Type A (PCR) NEGATIVE (Negative) Influenza Type B (PCR) NEGATIVE (Negative) RSV RNA Qual (PCR) NEGATIVE (Negative) SARS-CoV-2 RNA (RT-PCR) NEGATIVE (Negative) 11/20/23 Range/Units 22:04 WBC (4.8-10.8) X10*3/uL RBC (4.60-5.80) X10*6/uL Hgb (14.0-18.0) g/dl Hct (42.0-52.0) % MCV (80.0-98.0) fL MCH (27.0-33.0) pg MCHC (31.0-36.0) g/dl RDW (11.0-16.0) % Plt Count (160-400) X10*3/uL MPV (9.4-12.4) fL Immature Gran % (Auto) (0.0-0.4) % Neut % (Auto) (45-73) % Lymph % (Auto) (20-40) % Ness % (Auto) (2-11) % Eos % (Auto) (0-4) % Baso % (Auto) (0-2) % Lymph # (Auto) (1.2-4.9) X10*3/uL Ness # (Auto) (0.1-1.2) X10*3/uL Eos # (Auto) (0.0-0.4) X10*3/uL Baso # (Auto) (0.0-0.2) X10*3/uL Abs Immat Gran (auto) (0.00-0.03) X10*3/uL Absolute Neuts (auto) (2.0-8.3) x10*3/uL Absolute Nucleated RBC (0.0-0.012) X10*3/uL Nucleated RBC % (auto) (0.0-0.2) /100WBC Sodium (135-145) mmol/L Potassium (3.3-5.1) mmol/L Chloride (96-108) mmol/L Carbon Dioxide (22-29) mmol/L Anion Gap (12-20) BUN (9-16) mg/dL Creatinine (0.5-1.4) mg/dL Estim Creat Clear Calc Estimated GFR POC Glucose (60-115) mg/dL Random Glucose (60-115) mg/dL Calcium (8.4-10.2) mg/dL Total Bilirubin (0.0-1.0) mg/dL Direct Bilirubin (0.0-0.5) mg/dL AST (5-37) U/L ALT (0-40) U/L Alkaline Phosphatase (39-117) U/L Troponin I High Sens (<3.5-35.0) ng/L Total Protein (6.5-8.0) g/dL Albumin (3.5-5.0) g/dL Lipase (8-78) U/L Urine Color Yellow Urine Appearance Clear Urine pH 5.5 (5.0-9.0) Ur Specific Alvo >= 1.030 H (1.005-1.025) Urine Protein 300 (3+) H (Neg-Trace) mg/dL Urine Glucose (UA) Negative (Negative) mg/dL Urine Ketones Negative (Negative) mg/dL Urine Blood Negative (Negative) Urine Nitrite Negative (Negative) Ur Leukocyte Esterase Negative (Negative) Urine RBC 0-2 (0-2) /HPF Urine WBC 0-5 (0-5) /HPF Ur Squamous Epith Cells 0-2 (0-2) /HPF Urine Bacteria None Seen (None Seen) Hyaline Casts 0-2 (0-2) /LPF Influenza Type A (PCR) (Negative) Influenza Type B (PCR) (Negative) RSV RNA Qual (PCR) (Negative) SARS-CoV-2 RNA (RT-PCR) (Negative) Discharge Plan Discharge Clinical Impression: Vomiting Patient Disposition: Home, Self-Care Instructions: Acute Nausea and Vomiting (ED) Additional Instructions: Your workup in the ER today was reassuring. You do not have COVID, your chest x-ray was clear, your CT scan of the abdomen pelvis was clear Use Zofran as needed for nausea/vomiting Follow-up with your primary doctor, return for new or worsening symptoms Prescriptions: New ondansetron 4 mg tablet,disintegrating 4 mg PO Q8H PRN (Reason: nausea and vomiting) Qty: 20 0RF No Action fluticasone propionate 50 mcg/actuation spray,suspension 1 spray intranasal DAILY Qty: 16 2RF (DME) pen needle, diabetic [Lite Touch Insulin Pen [place]] 31 gauge x 5/16 needle See Rx Instructions .Route Qty: 100 12RF Rx Instructions: Use 3 times daily (DME) lancets [OneTouch Delica Lancets] 33 gauge misc See Rx Instructions .Route Qty: 100 12RF Rx Instructions: As directed 3 times a day metoclopramide HCl [Reglan] 10 mg tablet 10 mg PO AC PRN (Reason: nausea and vomiting) Qty: 20 0RF OneTouch Ultra Blue Test Strip Strip 1 strip miscellaneous TID Qty: 100 3RF (DME) blood-glucose meter [OneTouch Ultra2 Meter] [facility] [place] Rx Instructions .ROUTE TID Qty: 1 Rx Instructions: test 3 times per day (DME) OneTouch Ultra Test Strip See Rx Instructions .Route Qty: 100 8RF Rx Instructions: test 3 times per day (DME) pen needle, diabetic [BD Ultra-Fine Orig Pen Needle] 29 gauge x 1/2 needle See Rx Instructions .Route Qty: 100 12RF Rx Instructions: 3 times daily (DME) pen needle, diabetic [BD Ultra-Fine Brittany Pen Needle] 32 gauge x 5/32 needle See Rx Instructions .Route Qty: 1200 4RF Rx Instructions: test 3 times daily (DME) WALKER See Rx Instructions .Route .MEDSUPPLY Qty: 1 0RF Rx Instructions: As directed metoprolol tartrate 50 mg tablet 50 mg PO BID Qty: 180 1RF docusate sodium 100 mg capsule 100 mg PO BID PRN (Reason: constipation) 30 Days Qty: 60 3RF lisinopril 10 mg tablet 10 mg PO DAILY 90 Days Qty: 90 1RF aspirin 81 mg tablet,delayed release (DR/EC) 81 mg PO DAILY Qty: 90 0RF paroxetine HCl 40 mg tablet 40 mg PO DAILY Qty: 90 0RF [place] [place] Medication Organizer (Med-Box) 0 .Route .MEDSUPPLY [place] [place] medication organizer (med box) See Rx Instructions .Route .MEDSUPPLY Qty: 1 0RF Rx Instructions: monthly medication organizer box; [place] [place] Semi-Electric [facility] Bed See Rx Instructions .Route .MEDSUPPLY Qty: 1 0RF Rx Instructions: As directed albuterol sulfate 90 mcg/actuation HFA aerosol inhaler 2 puff PO Q4-6H PRN (Reason: for wheezing) Qty: 8.5 2RF insulin lispro [Humalog KwikPen Insulin] 100 unit/mL insulin pen 15 - 20 unit subcut .TIDAC Qty: 15 3RF omeprazole 40 mg capsule,delayed release(DR/EC) 40 mg PO DAILY Qty: 30 3RF insulin glargine [Lantus Solostar U-100 Insulin] 100 unit/mL (3 mL) insulin pen 80 unit subcut BID Qty: 45 3RF cholecalciferol (vitamin D3) [Vitamin D3] 50 mcg (2,000 unit) capsule 50 mcg PO DAILY Qty: 90 3RF dicyclomine 20 mg tablet 20 mg PO QID PRN (Reason: abdominal pain) Qty: 20 0RF ondansetron HCl 4 mg tablet 4 mg PO Q6H PRN (Reason: nausea and vomiting) Qty: 14 0RF polyethylene glycol 3350 [Miralax] 17 gram/dose powder 17 g PO DAILY PRN (Reason: Constipation) atorvastatin 80 mg tablet 80 mg PO DAILY cefuroxime axetil 250 mg tablet 250 mg PO BID 7 Days Qty: 14 0RF phenazopyridine [Pyridium] 200 mg tablet 200 mg PO TID 2 Days Qty: 6 0RF [place] [place] SHOWER CHAIR See Rx Instructions .Route .MEDSUPPLY Qty: 1 0RF Rx Instructions: As directed [place] [place] SHOWER CHAIR See Rx Instructions .Route .MEDSUPPLY Qty: 1 0RF Rx Instructions: As directed [place] [place] insulin syr/ndl U100 half gareth 0.5 mL 30 gauge x 5/16 syringe See Rx Instructions .Route Qty: 100 12RF Rx Instructions: Use 4 times daily gabapentin 400 mg capsule 400 mg PO TID Qty: 270 1RF (DME) walker Misc See Rx Instructions .Route Qty: 1 0RF Rx Instructions: As directed hydroxyzine HCl 25 mg tablet 25 mg PO Q6H PRN (Reason: anxiety) 30 Days Qty: 120 3RF cyanocobalamin (vitamin B-12) 1,000 mcg tablet 1,000 mcg PO DAILY 90 Days Qty: 90 3RF oxybutynin chloride 10 mg tablet extended release 24hr 10 mg PO DAILY Qty: 90 1RF tamsulosin [Flomax] 0.4 mg capsule 0.4 mg PO BEDTIME Qty: 90 2RF (DME) FreeStyle [place] 3 Sensor Device See Rx Instructions .ROUTE .MEDSUPPLY Qty: 2 11RF Rx Instructions: As directed (DME) FreeStyle [place] 3 [place] Misc See Rx Instructions .ROUTE .MEDSUPPLY Qty: 1 0RF Rx Instructions: as directed Print Language: Polish
--- NOTE | 2023-11-20 17:23 | ECG_ITS ---
Test Reason : CHEST PAIN Blood Pressure : / mmHG Vent. Rate : 057 BPM Atrial Rate : 057 BPM P-R Int : 224 ms QRS Dur : 118 ms QT Int : 428 ms P-R-T Axes : 000 210 149 degrees QTc Int : 416 ms Suspect limb lead reversal, interpretation assumes no reversal Sinus bradycardia with 1st degree A-V block Septal infarct (cited on or before 09-MAY-2023) Lateral infarct , age undetermined Abnormal ECG When compared with ECG of 23-JUL-2023 17:38, QRS axis Shifted right Referred By: Kb Marie Electronically Signed By:MARIA TERESA TORRES
[2023-11-20] MEDS: hydrOXYzine HCL 25 MG TABLET PO (17:55)
[2023-11-20] MEDS: ondansetron HCL 4 MG/2 ML VIAL IVPUSH (18:06)
[2023-11-20] MEDS: 0.9 % Sodium Chloride 1,000 ML 999 ML IV (18:06)
[2023-11-20 18:48] VITALS: BP 186/75; PULSE 68; RESP 14; TEMP 36.5; O2SAT 97
[2023-11-20 20:00] VITALS: BP 147/74; PULSE 72; RESP 19; TEMP 36.3; O2SAT 100
[2023-11-20] MEDS: LORazepam 2 MG/ML VIAL IVPUSH (20:28)
[2023-11-20] MEDS: iohexoL 350 MG/ML 100 ML INFUS..BTL 85 ML IV (21:16)
[2023-11-20 22:00] VITALS: BP 176/89; PULSE 81; RESP 19; TEMP 36.4; O2SAT 93
[2023-11-20 22:12] LABS: Appearance Urine Clear; Color Urine Yellow; Glucose Urine UA Negative (Negative); Leukocyte Esterase Urine Negative (Negative); Nitrite Urine Negative (Negative); PH 5.5 (5.0-9.0); Specific Gravity - Urine >= 1.030 (1.005-1.025); UMIC TRIGGER UACC YES; Urine Blood Negative (Negative); Urine Ketones Negative (Negative); Urine Protein 300 (3+) mg/dL (Neg-Trace)
[2023-11-20 22:15] LABS: Bacteria Urine None Seen (None Seen); Hyaline Casts Urine 0-2 /LPF (0-2); RBC Urine 0-2 /HPF (0-2); Squamous Epithelial Cell Urine 0-2 /HPF (0-2); WBC Urine 0-5 /HPF (0-5)
[2023-11-21 00:49] VITALS: BP 176/89; PULSE 78; RESP 12; TEMP 36.4; O2SAT 98
== END 2023-11-21 00:51 | disposition home or self-care (01) ==
PROVIDERS: Physician Assistant; Emergency Provider Internal Medicine; PCP Internal Medicine
DX: R06.02 Shortness of breath (principal); E11.9 Type 2 diabetes mellitus without complications; F33.1 Major depressive disorder, recurrent, moderate; R07.89 Other chest pain; R10.12 Left upper quadrant pain; F03.90 Unspecified dementia, unspecified severity, without behavioral disturbance, psychotic disturbance, mood disturbance, and anxiety; R11.2 Nausea with vomiting, unspecified; J44.9 Chronic obstructive pulmonary disease, unspecified; R51.9 Headache, unspecified; Z79.899 Other long term (current) drug therapy; Z03.818 Encounter for observation for suspected exposure to other biological agents ruled out; Z79.4 Long term (current) use of insulin
CPT/HCPCS: 0241U; 36415; 71046; 74177; 80048; 80076; 81001; 82947; 83690; 84484; 85025; 93005; 96374; 96375; 99284; J2060; J2405; Q9967

== ENCOUNTER 2023-11-25 10:00 | Outpatient (AMB) | payer OTHER, SELFPAY ==
--- NOTE | 2023-11-25 10:31 | A.OFFVIS_ITS ---
Vital Signs 11/25/23 10:47 BMI Reason not done Patient refused/unable BP 138/58 L Blood Pressure Location Lt brachial Position Sitting Pulse 61 Pulse Source Pulse Oximeter Intake Visit Reasons: Review CGM data/LVM Intake Note: Patient present today to follow up on Type 2 Diabetes Mellitus. Last Diabetic Eye exam: 11/14/2023 Last Podiatry Visit: Does not see a Freelance Programmer/App Developer Random Glucose: 155 mg/dl HgA1C: 8.8% 10/03/2023 Baking Factory Worker Required: Yes Baking Factory Worker Language: Utility Technician Services: Baking Factory Worker Offered & Declined Accompanied by: Niece Allergies hydromorphone [Dilaudid] Adverse Reaction (Unknown, Verified 11/25/23 10:48) confusion From DILAUDID Adverse Reaction (Severe, Uncoded 11/25/23 10:48) CONFUSION/HALLUCIATIONS From PERCOCET Adverse Reaction (Intermediate, Uncoded 11/25/23 10:48) AGITATION HPI Comments Details: This is a 68-year-old male with a past medical history of type 2 diabetes with neuropathy, JAIME, hyperlipidemia, hypercholesterolemia, CAD, depression and dementia presenting for management of type 2 diabetes. Accompanied by niece/PAINTER ASSISTANTCrystal. seismic interpreter present for visit. He was initially diagnosed in 1981. He was last seen by me on 10/21/23. I reviewed today's CGM download dated 11/12/2023 through 11/25/2023 Time CGM active: 93% Average glucose 178 mg/dL GMI 7.6% Glucose variability 37% Very high 16% High 27% Target range 55% Low 2% Very low 0% Trends show hypoglycemia late night to midnight. Patient had 1 day with hypoglycemia mid afternoon. He experiences hyperglycemia throughout the day. Current regimen: Lantus 60 units twice daily. Humalog per sliding scale before meals. Humalog sliding scale 200-250: 2 units 251-300: 4 units 301-350: 6 units 351-400: 8 units Over 400: 10 units He was previously on Trulicity. Chart indicates he has a history of pancreatitis. He met with the hematology nurse educator to discuss insulin pumps, but he is not interested in purusing it right now. His niece continues to be his PAINTER ASSISTANT. Hypoglycemia symptoms: Shakiness Hyperglycemia symptoms: Dry mouth, polydipsia Microvascular complications: Neuropathy, nephropathy (CKD) Macrovascular complications: CAD, TIA in 1996 and 2009 ROS: Constitutional: No unexplained weight loss, fever, chills or night sweats. Eyes: No vision changes Respiratory: No shortness of breath Cardiovascular: No chest pain Gastrointestinal: No anorexia, nausea, vomiting or diarrhea. No abdominal pain Neurologic: No headache, dizziness, syncope, Endocrine: No cold or heat intolerance. No polyuria Physical exam: Constitutional: Alert, in no distress. Eyes: Pupils are equal, round and reactive to light. Extraocular muscles intact. Neck: Supple, Full range of motion. No lymphadenopathy. Respiratory: Clear to auscultation. Cardiovascular: S1 S2 regular. No murmurs. ON LICENSE OF [facility] Medical History Type 2 diabetes mellitus with neurologic complication Gastritis and duodenitis Vitamin B12 deficiency Hyperkalemia Intertrigo Major depressive disorder, recurrent Benign prostatic hyperplasia with urinary frequency Constipation Obstructive sleep apnea Vitamin D deficiency Diabetic polyneuropathy Diabetes mellitus Obesity (BMI 30-39.9) Benign essential hypertension Pure hypercholesterolemia Coronary artery disease Surgical History Hx of cataract extraction (~2011) History of quadruple bypass (~2005) Hx of cystoscopy History of prostate surgery (~12/04/10) Hx of cholecystectomy (~2007) Family History Father Lung cancer Mother Diabetes Hypertension Stomach cancer Social History Household Members: None Housing: Apartment Do you presently have visiting nurse or other home services: No Alcohol intake: never Patient Tobacco Use Status: Former Tobacco user e-Cigarette/Vaping Use: Never Used Second Hand Smoke Exposure: No Advance Directives Date on File: 07/24/23 service: No Current occupational status: disabled Cognitive needs: Yes (cane) Hearing needs: No Vision needs: Yes Physical Exam Vital Signs: Last Vital Signs Pulse 61 11/25/23 10:47 BP 138/58 L 11/25/23 10:47 Office Procedures Glucose Monitoring Details 75543 - Glucose monitoring, continuous-physician I&R (see HPI) Procedure code (CPT) selection complete Results Reviewed Results Reviewed: Laboratory Last Values Glucose (Clinic) 155 mg/dL (60-115) H 11/25/23 11:05 Assessment & Plan Assessment & Plan (1) Type 2 diabetes mellitus with neurologic complication: Code(s): E11.49 - Type 2 diabetes mellitus with other diabetic neurological complication Category: Medical Qualifiers: Diabetes mellitus detention insulin use: with detention use Diabetes mellitus complication detail: with polyneuropathy Qualified Code(s): E11.42 - Type 2 diabetes mellitus with diabetic polyneuropathy; Z79.4 - rodent exterminator (current) use of insulin Plan: In summary this is a 68-year-old male with suboptimally controlled type 2 diabetes requiring chronic insulin use with micro and macrovascular comp lications. We discussed recent episodes of nocturnal hypoglycemia. Decrease Lantus to 56 units at bedtime, continue 60 units of Lantus in the morning and current sliding scale for Humalog. They were advised that is is vital to bring glucometer to visits so we can review data and make adjustments to the patient's medication regimen. Encouraged compliance with humalog sliding scale for all meals. Consult with hematology nurse educator greatly appreciated. Defer resuming glp1 given history of pancreatitis and duodenitis. We discussed SGLT2. Daughter mentions he was recently in the hospital for a UTI. History of intertrigo also noted so he may not be a good candidate for this medication. Follow up in 2-4 weeks to review CGM to ensure hypoglycemic episodes decreased. Orders: Orders AMB Glucose Monitoring Today E11.9 - Type 2 diabetes mellitus without complications Patient Instructions: Lantus 60 units in the morning Decrease Lantus 56 units at bedtime Continue Humalog sliding scale with meals. If you experience low blood sugar, treat this by eating a chewable fruit candy like skittles or jelly beans (about 8 pieces), 4 ounces (1/2 cup) of fruit juice (not diet), 1 tablespoon of honey or 4 glucose tablets. If your blood sugar is under 50, take double the amount of one of the above. Recheck your blood sugar in 15 minutes. Coding Level of Care Code Est Pt Level 4 (93676) Diagnoses Type 2 diabetes mellitus with diabetic polyneuropathy, with long-term current use of insulin E11.42; Z79.4 Diabetes mellitus detention insulin use: with detention use Diabetes mellitus complication detail: with polyneuropathy CPT Codes Details - CPT: 74727 - Glucose monitoring, continuous-physician I&R ([id number])
[2023-11-25 10:47] VITALS: BP 138/58; PULSE 61
[2023-11-25 11:11] LABS: Glucose, Whole Blood 155 mg/dL (60-115)
== END 2023-11-25 11:34 | disposition home or self-care (01) ==
LOC: HO.ENCR 10:00
PROVIDERS: PCP Internal Medicine; Visit Provider Physician Assistant Medical
DX: E11.42 Type 2 diabetes mellitus with diabetic polyneuropathy (principal); Z79.4 Long term (current) use of insulin
CPT/HCPCS: 95251; 99214

== ENCOUNTER → 2023-11-25 10:00 | Outpatient (BNVA) | payer OTHER, SELFPAY | PROVIDERS: PCP Internal Medicine; Visit Provider Physician Assistant Medical | DX: E11.42 Type 2 diabetes mellitus with diabetic polyneuropathy (principal); E78.00 Pure hypercholesterolemia, unspecified; Z79.4 Long term (current) use of insulin | CPT/HCPCS: 82947; 99212 ==

== ENCOUNTER 2023-12-05 06:13 | Emergency (ER) | payer OTHER, SELFPAY ==
--- NOTE | 2023-12-05 | ECG_ITS ---
Test Reason : AMS Blood Pressure : / mmHG Vent. Rate : 078 BPM Atrial Rate : 078 BPM P-R Int : 198 ms QRS Dur : 100 ms QT Int : 402 ms P-R-T Axes : 064 -28 074 degrees QTc Int : 458 ms Normal sinus rhythm Minimal voltage criteria for LVH, may be normal variant ( R in aVL ) Septal infarct (cited on or before 09-MAY-2023) Abnormal ECG When compared with ECG of 20-NOV-2023 18:06, Criteria for Lateral infarct are no longer Present Non-specific change in ST segment in Lateral leads Referred By: Generic ED Physician Electronically Signed By:MARIA TERESA TORRES
[2023-12-05 06:20] VITALS: BP 132/65; BP 152/47; PULSE 80; PULSE 85; RESP 16; TEMP 37.6; O2SAT 95; BMI 39.0
--- NOTE | 2023-12-05 06:36 | PC.NURSE ---
attempt to call hcp no answer. attempt call to home phone no answer. ?if pt is at baseline mentation. per previous visits pt at baseline. awaiting primary eval by ed provider. labs/ekg ordered per protocol. pt is pleasant, talking and laughing. pt has no complaints at this time.
[2023-12-05 06:41] LABS: MANUAL DIFF FLAG NO
[2023-12-05 06:43] LABS: Basophils Percent Auto 0.3 % (0-2); Eosinophils Absolute Auto 0.1 X10*3/uL (0.0-0.4); Eosinophils Percent Auto 0.6 % (0-4); Hematocrit 34.6 % (42.0-52.0); Hemoglobin 11.9 g/dl (14.0-18.0); Imm Gran Abs Auto 0.04 X10*3/uL (0.00-0.03); Imm Gran Pct Auto 0.4 % (0.0-0.4); Lymphocytes Absolute Auto 1.7 X10*3/uL (1.2-4.9); Lymphocytes Percent Auto 16.8 % (20-40); Mean Corpuscular HGB Conc 34.4 g/dl (31.0-36.0); Mean Corpuscular Hemoglobin 30.6 pg (27.0-33.0); Mean Corpuscular Volume 88.9 fL (80.0-98.0); Mean Platelet Volume 11.6 fL (9.4-12.4); Monocytes Absolute Auto 0.6 X10*3/uL (0.1-1.2); Monocytes Percent Auto 5.9 % (2-11); Neutrophils Absolute Auto 7.8 x10*3/uL (2.0-8.3); Platelet Count 150 X10*3/uL (160-400); Red Blood Count 3.89 X10*6/uL (4.60-5.80); Red Cell Distribution Width 12.9 % (11.0-16.0); White Blood Count 10.2 X10*3/uL (4.8-10.8)
[2023-12-05 06:58] LABS: Alanine Aminotransferase 27 U/L (0-40); Albumin Level 3.9 g/dL (3.5-5.0); Alkaline Phosphatase 105 U/L (39-117); Anion Gap 15 (12-20); Aspartate Amino Transferase 20 U/L (5-37); Bilirubin Total 0.6 mg/dL (0.0-1.0); Blood Urea Nitrogen 27 mg/dL (9-16); Calcium 9.8 mg/dL (8.4-10.2); Carbon Dioxide 25 mmol/L (22-29); Chloride 100 mmol/L (96-108); Creatinine Clr Calc Pharmacy 54.4; Estimated Glomerular Filt Rate 51; Glucose Random 374 mg/dL (60-115); Potassium 3.9 mmol/L (3.3-5.1); Sodium 136 mmol/L (135-145); Total Protein 7.2 g/dL (6.5-8.0)
[2023-12-05 07:04] LABS: Troponin-I High Sensitivity 5.1 ng/L (<3.5-35.0)
[2023-12-05 07:19] LABS: Influenza A PCR NEGATIVE (Negative); Influenza B PCR NEGATIVE (Negative); Resp Syncy Virus RNA Qual PCR NEGATIVE (Negative); SARS COV2 PCR INHOUSE NEGATIVE (Negative)
--- NOTE | 2023-12-05 07:59 | ED.GENADULT ---
HPI - General Adult General Chief complaint: General Medical Stated complaint: General Malaise Time Seen by Provider: 12/05/23 07:25 Source: patient Mode of arrival: ambulatory Limitations: no limitations History of Present Illness HPI narrative: 68-year-old male past medical history significant for dementia. Patient has diabetes and this was to have someone come to the house every day but has not had any we visited for the past week. Patient found to be hyperglycemic on arrival patient is unsure why he is here he denies fevers chills pain nausea vomiting or diarrhea. Related Data Home Medications ?Medication ?Instructions ?Recorded ?Confirmed polyethylene glycol 3350 17 17 g PO DAILY PRN Constipation 10/09/22 10/03/23 gram/dose oral powder (Miralax) blood-glucose meter (OneTouch #1 ea 11/27/22 10/03/23 Ultra2 Meter) atorvastatin 80 mg tablet 80 mg PO DAILY 05/11/23 10/03/23 Monthly Medication Organizer 10/03/23 (Med-Box) Previous Rx's ?Medication ?Instructions ?Recorded SHOWER CHAIR #1 ea 10/05/20 SHOWER CHAIR #1 ea 01/10/21 fluticasone propionate 50 1 spray intranasal DAILY #16 grams 03/16/21 mcg/actuation nasal spray,suspension insulin syr/ndl U100 half gareth 0.5 #100 ea 05/14/21 mL 30 gauge x 5/16 pen needle, diabetic 31 gauge x #100 ea 03/12/22 5/16 (Lite Touch Insulin Pen [place]) lancets 33 gauge ([facility] #100 ea 03/13/22 Lancets) dicyclomine 20 mg tablet 20 mg PO QID PRN abdominal pain 07/05/22 #20 tabs ondansetron HCl 4 mg tablet 4 mg PO Q6H PRN nausea and 07/06/22 vomiting #14 tabs metoclopramide HCl 10 mg tablet 10 mg PO AC PRN nausea and 11/12/22 (Reglan) vomiting #20 tabs blood sugar diagnostic 1 strip miscellaneous TID #100 11/27/22 strips blood sugar diagnostic (OneTouch #100 ea 01/13/23 Ultra Test strips) pen needle, diabetic 29 gauge x #100 ea 04/02/23 1/2 (BD Ultra-Fine Original Pen Needle) pen needle, diabetic 32 gauge x #1,200 ea 04/02/23 (BD Ultra-Fine Brittany Pen Needle) WALKER #1 ea 04/09/23 oxybutynin chloride 10 mg 10 mg PO DAILY #90 tabs 04/16/23 tablet,extended release 24 hr tamsulosin 0.4 mg capsule (Flomax) 0.4 mg PO BEDTIME #90 caps 04/16/23 metoprolol tartrate 50 mg tablet 50 mg PO BID #180 tabs 06/08/23 gabapentin 400 mg capsule 400 mg PO TID #270 caps 06/11/23 walker #1 ea 06/15/23 docusate sodium 100 mg capsule 100 mg PO BID PRN constipation 30 07/11/23 days #60 caps lisinopril 10 mg tablet 10 mg PO DAILY 90 days #90 tabs 07/11/23 aspirin 81 mg tablet,delayed 81 mg PO DAILY #90 tabs 10/01/23 release paroxetine HCl 40 mg tablet 40 mg PO DAILY #90 tabs 10/01/23 cyanocobalamin (vitamin B-12) 1,000 mcg PO DAILY 90 days #90 tabs 10/03/23 1,000 mcg tablet hydroxyzine HCl 25 mg tablet 25 mg PO Q6H PRN anxiety 30 days 10/03/23 #120 tabs monthly medication organizer (med #1 ea 10/06/23 box) [facility] Bed #1 ea 10/07/23 albuterol sulfate 90 mcg/actuation 2 puff PO Q4-6H PRN for wheezing 10/09/23 aerosol inhaler #8.5 grams insulin lispro 100 unit/mL 15 - 20 unit (0.15 - 0.2 mL) 10/13/23 subcutaneous pen (Humalog KwikPen subcut .TIDAC #15 mL (U-100) Insulin) omeprazole 40 mg capsule,delayed 40 mg PO DAILY #30 caps 10/17/23 release insulin glargine 100 unit/mL (3 80 unit (0.8 mL) subcut BID #45 mL 10/20/23 mL) subcutaneous pen (Lantus Solostar U-100 Insulin) blood-glucose meter,continuous #1 ea 10/21/23 (FreeStyle [place] 3 [place]) blood-glucose sensor (FreeStyle #2 10/21/23 Iwona 3 Sensor device) cefuroxime axetil 250 mg tablet 250 mg PO BID 7 days #14 tabs 11/04/23 phenazopyridine 200 mg tablet 200 mg PO TID 2 days #6 tabs 11/04/23 (Pyridium) cholecalciferol (vitamin D3) 50 50 mcg PO DAILY #90 caps 11/19/23 mcg (2,000 unit) capsule (Vitamin D3) Active Mal guard pads 6 x 11 #208 ea 11/21/23 Cleansing wipes #100 ea 11/21/23 Disposable 30x30 polymer pads #90 ea 11/21/23 heavy floweds Powder free synthetic exam gloves #100 ea 11/21/23 ondansetron 4 mg disintegrating 4 mg PO Q8H PRN nausea and 11/21/23 tablet vomiting #20 tabs Allergies Allergy/AdvReac Type Severity Reaction Status Date / Time hydromorphone [Dilaudid] AdvReac Unknown confusion Verified 12/05/23 06:22 From DILAUDID AdvReac Severe CONFUSION/H Uncoded 12/05/23 06:22 ALLUCIATION S From PERCOCET AdvReac Intermediate AGITATION Uncoded 12/05/23 06:22 Review of Systems Review of Systems: Review of systems: General: Patient denies any fever chills recent illness or falls Musculoskeletal: Denies back pain or body aches or other injuries HEENT: denies headache, runny nose, ear pain Respiratory: denies shortness of breath, cough Cardiovascular: no chest pain or palpitations : denies dysuria, frequency Abdomen: no nausea vomiting denies abdominal pain Extremities: no swelling, no pain Skin: no diaphoresis Yes all other systems are reviewed and are negative [facility]LY [facility] Past Medical History Medical History Type 2 diabetes mellitus with neurologic complication Gastritis and duodenitis Vitamin B12 deficiency Hyperkalemia Intertrigo Major depressive disorder, recurrent Benign prostatic hyperplasia with urinary frequency Constipation Obstructive sleep apnea Vitamin D deficiency Diabetic polyneuropathy Diabetes mellitus Obesity (BMI 30-39.9) Benign essential hypertension Pure hypercholesterolemia Coronary artery disease Surgical History Hx of cataract extraction (~2011) History of quadruple bypass (~2005) Hx of cystoscopy History of prostate surgery (~12/04/10) Hx of cholecystectomy (~2007) Family History Family History Father Lung cancer Mother Diabetes Hypertension Stomach cancer Social History Social History Household Members: None Housing: Apartment Do you presently have visiting nurse or other home services: No Alcohol intake: never Patient Tobacco Use Status: Former Tobacco user Smoked in Last 30 Days: No e-Cigarette/Vaping Use: Never Used Second Hand Smoke Exposure: No Advance Directives: Yes Advance Directives on File: Yes Advance Directives Date on File: 07/24/23 service: No Current occupational status: disabled Cognitive needs: Yes (cane) Hearing needs: No Vision needs: Yes Physical Exam ED Vital Signs: Vital Signs - 24 hr 12/05/23 06:20 12/05/23 08:33 Temperature 99.6 F Pulse Rate 80 78 Respiratory Rate 16 18 Blood Pressure 152/47 H 139/61 Pulse Oximetry 95 94 Oxygen Delivery Method Room Air Room Air BMI result Body Mass Index 39.0 General: Well-appearing well-nourished in no signs of distress HEENT: Normocephalic atraumatic Neck: No signs of JVD, no masses no tenderness or lymphadenopathy Cardiovascular: Regular rate and rhythm Respiratory: Clear to auscultation bilaterally Abdomen: Soft nontender no masses Extremities: Normal pedal pulses no signs of edema Skin: Dry warm no rashes Back: No tenderness full ROM Course Course Course Narrative: Patient's medical workup was unremarkable patient is up and ambulatory family is contacted and they do not want placement for the patient they will come pick the patient up and take him home. Medications Administered Discontinued Medications Generic Name Dose Route Start Last Admin Trade Name Freq PRN Reason Stop Dose Admin Sodium Chloride 1,000 mls @ 999 mls/hr 12/05/23 08:00 12/05/23 09:43 Ns IV 12/05/23 09:00 Infused .Q1H1M ABELARDO Infusion Insulin Human Lispro 15 unit 12/05/23 08:00 12/05/23 08:26 Insulin Lispro 100 Unit/Ml 3 Ml Vial SUBCUT 12/05/23 08:01 15 unit ONCE ONE Administration Medical Decision Making Medical Decision Making [facility] Narrative: Pending case management I will give patient some fluids while awaiting. Differential Diagnosis Differential Diagnoses: The differential diagnosis associated with the presentation includes Patient with concerns for he has living alone I will wait for continuous pillowcase cutter to see the patient general labs already sent and are normal Lab Data 12/05/23 06:37 12/05/23 06:37 Labs: Lab Results 12/05/23 12/05/23 12/05/23 Range/Units 06:33 06:37 09:17 WBC 10.2 (4.8-10.8) X10*3/uL RBC 3.89 L (4.60-5.80) X10*6/uL Hgb 11.9 L (14.0-18.0) g/dl Hct 34.6 L (42.0-52.0) % MCV 88.9 (80.0-98.0) fL MCH 30.6 (27.0-33.0) pg MCHC 34.4 (31.0-36.0) g/dl RDW 12.9 (11.0-16.0) % Plt Count 150 L D (160-400) X10*3/uL MPV 11.6 (9.4-12.4) fL Immature Gran % (Auto) 0.4 (0.0-0.4) % Neut % (Auto) 76.0 H (45-73) % Lymph % (Auto) 16.8 L (20-40) % [place] % (Auto) 5.9 (2-11) % Eos % (Auto) 0.6 (0-4) % Baso % (Auto) 0.3 (0-2) % Lymph # (Auto) 1.7 (1.2-4.9) X10*3/uL [place] # (Auto) 0.6 (0.1-1.2) X10*3/uL Eos # (Auto) 0.1 (0.0-0.4) X10*3/uL Baso # (Auto) 0.0 (0.0-0.2) X10*3/uL Abs Immat Gran (auto) 0.04 H (0.00-0.03) X10*3/uL Absolute Neuts (auto) 7.8 (2.0-8.3) x10*3/uL Absolute Nucleated RBC 0.000 (0.0-0.012) X10*3/uL Nucleated RBC % (auto) 0.0 (0.0-0.2) /100WBC Sodium 136 (135-145) mmol/L Potassium 3.9 (3.3-5.1) mmol/L Chloride 100 (96-108) mmol/L Carbon Dioxide 25 (22-29) mmol/L Anion Gap 15 (12-20) BUN 27 H (9-16) mg/dL Creatinine 1.37 (0.5-1.4) mg/dL Estim Creat Clear Calc 54.4 Estimated GFR 51 POC Glucose 259 H (60-115) mg/dL Random Glucose 374 H* (60-115) mg/dL Calcium 9.8 (8.4-10.2) mg/dL Total Bilirubin 0.6 (0.0-1.0) mg/dL AST 20 (5-37) U/L ALT 27 (0-40) U/L Alkaline Phosphatase 105 (39-117) U/L Troponin I High Sens 5.1 (<3.5-35.0) ng/L Total Protein 7.2 (6.5-8.0) g/dL Albumin 3.9 (3.5-5.0) g/dL Influenza Type A (PCR) NEGATIVE (Negative) Influenza Type B (PCR) NEGATIVE (Negative) RSV RNA Qual (PCR) NEGATIVE (Negative) SARS-CoV-2 RNA (RT-PCR) NEGATIVE (Negative) Discharge Plan Discharge Clinical Impression: Acute hyperglycemia, Dementia Patient Disposition: Home, Self-Care Instructions: Diabetic Hyperglycemia (ED), Dementia (ED) Additional Instructions: You were seen today in the emergency department for elevated blood sugar. Please call follow up with her doctor if you have any other concerns please return to the emergency department. Prescriptions: No Action fluticasone propionate 50 mcg/actuation spray,suspension 1 spray intranasal DAILY Qty: 16 2RF (DME) pen needle, diabetic [Lite Touch Insulin Pen [place]] 31 gauge x 5/16 needle See Rx Instructions .Route Qty: 100 12RF Rx Instructions: Use 3 times daily (DME) lancets [OneTouch Delica Lancets] 33 gauge misc See Rx Instructions .Route Qty: 100 12RF Rx Instructions: As directed 3 times a day metoclopramide HCl [Reglan] 10 mg tablet 10 mg PO AC PRN (Reason: nausea and vomiting) Qty: 20 0RF OneTouch Ultra Blue Test Strip Strip 1 strip miscellaneous TID Qty: 100 3RF (DME) blood-glucose meter [OneTouch Ultra2 Meter] Mis See Rx Instructions .ROUTE TID Qty: 1 Rx Instructions: test 3 times per day (DME) OneTouch Ultra Test Strip See Rx Instructions .Route Qty: 100 8RF Rx Instructions: test 3 times per day (DME) pen needle, diabetic [BD Ultra-Fine Orig Pen Needle] 29 gauge x 1/2 needle See Rx Instructions .Route Qty: 100 12RF Rx Instructions: 3 times daily (DME) pen needle, diabetic [BD Ultra-Fine Brittany Pen Needle] 32 gauge x needle See Rx Instructions .Route Qty: 1200 4RF Rx Instructions: test 3 times daily (DME) WALKER See Rx Instructions .Route .MEDSUPPLY Qty: 1 0RF Rx Instructions: As directed metoprolol tartrate 50 mg tablet 50 mg PO BID Qty: 180 1RF docusate sodium 100 mg capsule 100 mg PO BID PRN (Reason: constipation) 30 Days Qty: 60 3RF lisinopril 10 mg tablet 10 mg PO DAILY 90 Days Qty: 90 1RF aspirin 81 mg tablet,delayed release (DR/EC) 81 mg PO DAILY Qty: 90 0RF paroxetine HCl 40 mg tablet 40 mg PO DAILY Qty: 90 0RF (DME) Monthly Medication Organizer (Med-Box) 0 .Route .MEDSUPPLY ([facility] [place] monthly medication organizer (med box) See Rx Instructions .Route .MEDSUPPLY Qty: 1 0RF Rx Instructions: monthly medication organizer box; ([facility] [place]) Semi-[facility] Bed See Rx Instructions .Route .MEDSUPPLY Qty: 1 0RF Rx Instructions: As directed albuterol sulfate 90 mcg/actuation HFA aerosol inhaler 2 puff PO Q4-6H PRN (Reason: for wheezing) Qty: 8.5 2RF insulin lispro [Humalog KwikPen Insulin] 100 unit/mL insulin pen 15 - 20 unit subcut .TIDAC Qty: 15 3RF omeprazole 40 mg capsule,delayed release(DR/EC) 40 mg PO DAILY Qty: 30 3RF insulin glargine [Lantus Solostar U-100 Insulin] 100 unit/mL (3 mL) insulin pen 80 unit subcut BID Qty: 45 3RF cholecalciferol (vitamin D3) [Vitamin D3] 50 mcg (2,000 unit) capsule 50 mcg PO DAILY Qty: 90 3RF (DME) Disposable 30x30 polymer pads heavy floweds See Rx Instructions .Route .MEDSUPPLY Qty: 90 11RF Rx Instructions: As directed (DME) Active Mal guard pads 6 x 11 See Rx Instructions .Route .MEDSUPPLY Qty: 208 0RF Rx Instructions: As directed ([facility] [place]) Cleansing wipes See Rx Instructions .Route .MEDSUPPLY Qty: 100 11RF Rx Instructions: As directed ([facility] [place]) Powder free synthetic exam gloves small See Rx Instructions .Route .MEDSUPPLY Qty: 100 11RF Rx Instructions: As directed dicyclomine 20 mg tablet 20 mg PO QID PRN (Reason: abdominal pain) Qty: 20 0RF ondansetron HCl 4 mg tablet 4 mg PO Q6H PRN (Reason: nausea and vomiting) Qty: 14 0RF polyethylene glycol 3350 [Miralax] 17 gram/dose powder 17 g PO DAILY PRN (Reason: Constipation) atorvastatin 80 mg tablet 80 mg PO DAILY cefuroxime axetil 250 mg tablet 250 mg PO BID 7 Days Qty: 14 0RF phenazopyridine [Pyridium] 200 mg tablet 200 mg PO TID 2 Days Qty: 6 0RF ondansetron 4 mg tablet,disintegrating 4 mg PO Q8H PRN (Reason: nausea and vomiting) Qty: 20 0RF ([facility] [place]) SHOWER CHAIR See Rx Instructions .Route .MEDSUPPLY Qty: 1 0RF Rx Instructions: As directed ([facility] [place]) SHOWER CHAIR See Rx Instructions .Route .MEDSUPPLY Qty: 1 0RF Rx Instructions: As directed ([facility] [place]) insulin syr/ndl U100 half gareth 0.5 mL 30 gauge x 5/16 syringe See Rx Instructions .Route Qty: 100 12RF Rx Instructions: Use 4 times daily gabapentin 400 mg capsule 400 mg PO TID Qty: 270 1RF (DME) walker Misc See Rx Instructions .Route Qty: 1 0RF Rx Instructions: As directed hydroxyzine HCl 25 mg tablet 25 mg PO Q6H PRN (Reason: anxiety) 30 Days Qty: 120 3RF cyanocobalamin (vitamin B-12) 1,000 mcg tablet 1,000 mcg PO DAILY 90 Days Qty: 90 3RF oxybutynin chloride 10 mg tablet extended release 24hr 10 mg PO DAILY Qty: 90 1RF tamsulosin [Flomax] 0.4 mg capsule 0.4 mg PO BEDTIME Qty: 90 2RF (DME) FreeStyle [place] 3 Sensor Device See Rx Instructions .ROUTE .MEDSUPPLY Qty: 2 11RF Rx Instructions: As directed (DME) FreeStyle Iwona 3 [place] Misc See Rx Instructions .ROUTE .MEDSUPPLY Qty: 1 0RF Rx Instructions: as directed Print Language: Bulgarian
[2023-12-05] MEDS: Insulin Lispro 100 UNIT/ML 3 ML VIAL 15 UNIT SUBCUT (08:26)
[2023-12-05] MEDS: 0.9 % Sodium Chloride 1,000 ML 999 ML IV (08:27)
[2023-12-05 08:33] VITALS: BP 139/61; PULSE 78; RESP 18; O2SAT 94
[2023-12-05 09:21] LABS: Glucose, Whole Blood 259 mg/dL (60-115)
--- NOTE | 2023-12-05 09:58 | MHC.CM.ED ---
Addendum entered by Jenn Sloan 12/05/23 12:44: Spoke with richar's HCP/son, Manuel. Manuel feels patient can safely return home. Patient lives on the 7th floor. Manuel's aunt, lives on the 2nd floor of the same building and sees him multiple times a day. Patient's niece is also his INSTRUMENTAL TEACHER. Manuel will be here at 1230pm to transport patient home. Original Note: Received case management consult from Dr Aceves. Patient came to the ER due to weakness. Work up essentially negative. Physical therapy eval is pending. Attempted to meet with patient in regards to dischare planning. Nursing care currently being provided. Attempted to speak to son/HCP, Manuel. Left message requesting return telephone call. Per Dr Aceves, family is interested in LTC. Patient has been to [facility] and [facility] in the past. Referral will be broadcasted at this time. Continue to monitor for d/c needs.
--- NOTE | 2023-12-05 10:04 | PC.NURSE ---
Pt up out of bed using urinal. Pt then assisted by Mili and this RN. Pt unsteady gait on feet, redirected back into bed. Pt pulled out 20g IV in left forearm, 1L NS finished. Plan for case management to meet with pt regarding possible LTC. Call gallagher within reach, all needs met at this time.
[2023-12-05 12:23] VITALS: BP 139/61; PULSE 78; O2SAT 94
[2023-12-05 12:51] VITALS: BP 139/61; PULSE 72; RESP 18; TEMP 37.3; O2SAT 98
== END 2023-12-05 12:53 | disposition home or self-care (01) ==
PROVIDERS: Emergency Provider Student in an Organized Health Care Education/Training Program; PCP Internal Medicine
DX: E11.65 Type 2 diabetes mellitus with hyperglycemia (principal); F03.90 Unspecified dementia, unspecified severity, without behavioral disturbance, psychotic disturbance, mood disturbance, and anxiety; Z03.818 Encounter for observation for suspected exposure to other biological agents ruled out; I10 Essential (primary) hypertension; E78.00 Pure hypercholesterolemia, unspecified; J45.909 Unspecified asthma, uncomplicated; Z87.891 Personal history of nicotine dependence; Z79.02 Long term (current) use of antithrombotics/antiplatelets; Z79.899 Other long term (current) drug therapy; Z79.4 Long term (current) use of insulin; Z79.82 Long term (current) use of aspirin
CPT/HCPCS: 0241U; 80053; 82947; 84484; 85025; 93005; 96360; 97162; 99285

== ENCOUNTER 2023-12-09 14:52 | Emergency (ER) | payer OTHER, SELFPAY ==
--- NOTE | ~2023-12-09 | XR_ITS ---
EXAMINATION: XR RIBS, RIGHT CLINICAL INFORMATION: Right rib pain after trauma COMPARISON: Chest radiograph 11/20/2023 TECHNIQUE: Single view chest and 6 additional views of the right ribs were obtained. FINDINGS: Status post median sternotomy Lungs are clear. No consolidation, pneumothorax, or pleural effusion. The cardiomediastinal silhouette and pulmonary vasculature are normal. Status post median sternotomy. Osseous structures are unremarkable. Ribs are intact. No fractures are identified. XR/XR ribs RT min 3V w CXR1V IMPRESSION: 1. No acute pulmonary disease. 2. No displaced rib fractures. Electronically signed by: Dakota Julian MD 12/09/2023 04:38 PM EDT RP
[2023-12-09 15:09] VITALS: BP 122/47; PULSE 64; RESP 20; TEMP 37.1; O2SAT 95; BMI 41.2
--- NOTE | 2023-12-09 15:10 | ED.GENADULT ---
HPI - General Adult General Chief complaint: Fall Stated complaint: Fall 12/06 - back pain Time Seen by Provider: 12/09/23 19:05 Source: patient and family (niece ) Mode of arrival: ambulatory Limitations: no limitations History of Present Illness ED Provider: DR. Osuna HPI narrative: a 68-year-old male brought in for evaluation of right-sided body ache after he sustained a fall on Friday the was witnessed by his niece, patient fell end up twisting his body and fell on his right side complaining of right-sided pain and right flank pain, no head injury, not taking anticoagulation. Related Data Home Medications ?Medication ?Instructions ?Recorded ?Confirmed polyethylene glycol 3350 17 17 g PO DAILY PRN Constipation 10/09/22 10/03/23 gram/dose oral powder (Miralax) blood-glucose meter (OneTouch #1 ea 11/27/22 10/03/23 Ultra2 Meter) atorvastatin 80 mg tablet 80 mg PO DAILY 05/11/23 10/03/23 Monthly Medication Organizer 10/03/23 (Med-Box) Previous Rx's ?Medication ?Instructions ?Recorded SHOWER CHAIR #1 ea 10/05/20 SHOWER CHAIR #1 ea 01/10/21 fluticasone propionate 50 1 spray intranasal DAILY #16 grams 03/16/21 mcg/actuation nasal spray,suspension insulin syr/ndl U100 half gareth 0.5 #100 ea 05/14/21 mL 30 gauge x 5/16 pen needle, diabetic 31 gauge x #100 ea 03/12/22 5/16 (Lite Touch Insulin Pen Labolt) lancets 33 gauge (OneTouch Delica #100 ea 03/13/22 Lancets) dicyclomine 20 mg tablet 20 mg PO QID PRN abdominal pain 07/05/22 #20 tabs ondansetron HCl 4 mg tablet 4 mg PO Q6H PRN nausea and 07/06/22 vomiting #14 tabs metoclopramide HCl 10 mg tablet 10 mg PO AC PRN nausea and 11/12/22 (Reglan) vomiting #20 tabs blood sugar diagnostic 1 strip miscellaneous TID #100 11/27/22 strips blood sugar diagnostic (OneTouch #100 ea 01/13/23 Ultra Test strips) pen needle, diabetic 29 gauge x #100 ea 04/02/23 1/2 (BD Ultra-Fine Original Pen Needle) pen needle, diabetic 32 gauge x #1,200 ea 04/02/2332 (BD Ultra-Fine Brittany Pen Needle) WALKER #1 ea 04/09/23 oxybutynin chloride 10 mg 10 mg PO DAILY #90 tabs 04/16/23 tablet,extended release 24 hr tamsulosin 0.4 mg capsule (Flomax) 0.4 mg PO BEDTIME #90 caps 04/16/23 metoprolol tartrate 50 mg tablet 50 mg PO BID #180 tabs 06/08/23 gabapentin 400 mg capsule 400 mg PO TID #270 caps 06/11/23 walker #1 ea 06/15/23 docusate sodium 100 mg capsule 100 mg PO BID PRN constipation 30 07/11/23 days #60 caps lisinopril 10 mg tablet 10 mg PO DAILY 90 days #90 tabs 07/11/23 aspirin 81 mg tablet,delayed 81 mg PO DAILY #90 tabs 10/01/23 release paroxetine HCl 40 mg tablet 40 mg PO DAILY #90 tabs 10/01/23 cyanocobalamin (vitamin B-12) 1,000 mcg PO DAILY 90 days #90 tabs 10/03/23 1,000 mcg tablet hydroxyzine HCl 25 mg tablet 25 mg PO Q6H PRN anxiety 30 days 10/03/23 #120 tabs monthly medication organizer (med #1 ea 10/06/23 box) Semi-[facility] Hospital Bed #1 ea 10/07/23 albuterol sulfate 90 mcg/actuation 2 puff PO Q4-6H PRN for wheezing 10/09/23 aerosol inhaler #8.5 grams insulin lispro 100 unit/mL 15 - 20 unit (0.15 - 0.2 mL) 10/13/23 subcutaneous pen (Humalog KwikPen subcut .TIDAC #15 mL (U-100) Insulin) omeprazole 40 mg capsule,delayed 40 mg PO DAILY #30 caps 10/17/23 release insulin glargine 100 unit/mL (3 80 unit (0.8 mL) subcut BID #45 mL 10/20/23 mL) subcutaneous pen (Lantus Solostar U-100 Insulin) blood-glucose meter,continuous #1 ea 10/21/23 (FreeStyle [place] 3 [place]) blood-glucose sensor (FreeStyle #2 ea 10/21/23 Iwona 3 Sensor device) cefuroxime axetil 250 mg tablet 250 mg PO BID 7 days #14 tabs 11/04/23 phenazopyridine 200 mg tablet 200 mg PO TID 2 days #6 tabs 11/04/23 (Pyridium) cholecalciferol (vitamin D3) 50 50 mcg PO DAILY #90 caps 11/19/23 mcg (2,000 unit) capsule (Vitamin D3) Active Mal guard pads 6 x 11 #208 ea 11/21/23 Cleansing wipes #100 ea 11/21/23 Disposable 30x30 polymer pads #90 ea 11/21/23 heavy floweds Powder free synthetic exam gloves #100 ea 11/21/23 ondansetron 4 mg disintegrating 4 mg PO Q8H PRN nausea and 11/21/23 tablet vomiting #20 tabs cyclobenzaprine 10 mg tablet 10 mg PO TID PRN muscle spasm #10 12/09/23 tabs naproxen 500 mg tablet 500 mg PO BID PRN pain #10 tabs 12/09/23 Allergies Allergy/AdvReac Type Severity Reaction Status Date / Time hydromorphone [Dilaudid] AdvReac Unknown confusion Verified 12/09/23 15:10 From DILAUDID AdvReac Severe CONFUSION/H Uncoded 12/05/23 06:22 ALLUCIATION S From PERCOCET AdvReac Intermediate AGITATION Uncoded 12/05/23 06:22 Review of Systems Review of Systems: All other systems are reviewed and are negative Constitutional: Reports as per HPI and Reports no additional constitutional complaints Eyes: Reports as per HPI and Reports no additional eye complaints Reports system reviewed and no additional complaints, except as documented Cardiovascular: Reports as per HPI and Reports no additional cardiovascular complaints Respiratory: Reports as per HPI and Reports no additional respiratory complaints Gastrointestinal: Reports as per HPI and Reports no additional gastrointestinal complaints Genitourinary: Reports no additional female genitourinary complaints Musculoskeletal: Reports no additional musculoskeletal complaints Skin/Breast: Reports system reviewed and no additional complaints, except as docu Psychiatric: Reports no additional psychiatric complaints Endocrine: Reports no additional endocrine complaints Hematologic/Lymphatic: Reports no additional hematologic/lymphatic complaints Allergic/Immunologic: Reports no additional allergic/immunologic complaints Reports system reviewed and no additional complaints, except as documented and Reports Abnormal speech present [facility] Past Medical History Medical History Type 2 diabetes mellitus with neurologic complication Gastritis and duodenitis Vitamin B12 deficiency Hyperkalemia Intertrigo Major depressive disorder, recurrent Benign prostatic hyperplasia with urinary frequency Constipation Obstructive sleep apnea Vitamin D deficiency Diabetic polyneuropathy Diabetes mellitus Obesity (BMI 30-39.9) Benign essential hypertension Pure hypercholesterolemia Coronary artery disease Surgical History Hx of cataract extraction (~2011) History of quadruple bypass (~2005) Hx of cystoscopy History of prostate surgery (~12/04/10) Hx of cholecystectomy (~2007) Family History Family History Father Lung cancer Mother Diabetes Hypertension Stomach cancer Social History Social History Household Members: None Housing: Apartment Do you presently have visiting nurse or other home services: No Alcohol intake: never Patient Tobacco Use Status: Former Tobacco user e-Cigarette/Vaping Use: Never Used Second Hand Smoke Exposure: No Advance Directives: Yes Advance Directives on File: Yes Advance Directives Date on File: 07/24/23 service: No Current occupational status: disabled Cognitive needs: Yes (cane) Hearing needs: No Vision needs: Yes Physical Exam ED Vital Signs: Vital Signs - 24 hr 12/09/23 15:09 12/09/23 19:28 Temperature 98.8 F 98.6 F Pulse Rate 64 59 Respiratory Rate 20 16 Blood Pressure 122/47 L 167/64 H Pulse Oximetry 95 98 Oxygen Delivery Method Room Air Room Air BMI result Body Mass Index 41.2 Vital signs have been reviewed and appear to be correct. Blood pressure elevated. Heart rate normal. Respiratory rate normal. Temperature normal. Oxygen saturation normal. Appearance: Alert. Oriented X3. No acute distress. Head: Normal external exam. Normocephalic. Atraumatic. No Araujo signs noted. No raccoon eyes noted Eyes: PERRLA. EOMI. Conjunctiva and sclera normal. Eyelids normal. ENT: TM's Normal. Pharynx normal. Uvula midline. Moist mucous membranes. No trismus noted. No drooling noted. No muffled voice noted. Neck: Normal inspection. Neck supple. FROM. No adenopathy. Thyroid Normal. No meningeal signs. No neck mass noted. CVS: Normal heart rate and rhythm. Heart sound normal. No murmurs noted. Pulses normal throughout. Respiratory: No respiratory distress. Painless inspiration. Breath sounds normal. No wheezes/rales/rhonchi noted. Chest nontender. No accessory muscle usage noted or decreased air movement noted. Abdomen: Soft and nontender. Bowel sounds normal in all 4 quadrants. No distention noted. No organomegaly noted. No visible injury noted. Back: Right flank pain, no tenderness, no ecchymosis, no obvious deformity. Full range of motion noted. Skin: Skin warm and dry. Normal skin color. Normal skin turgor. No rashes/lesions/lacerations noted. Extremities: No lower extremity edema. Extremities exhibit normal range of motion. Extremities nontender. Neuro: Oriented X 3. Cranial nerve exam: II-XII are grossly intact No motor deficit. No sensory deficit. Reflexes normal. Course Course Course Narrative: RME, this is a rapid medical exam performed by Rich Marie please refer to primary provider for complete H&P- 68-year-old male past medical history significant for diabetes, COPD, history of alcohol abuse, obesity, overactive bladder, sleep apnea, hypertension presents for evaluation of right flank pain. The patient fell 2 days ago onto his right side. She is having right flank pain in the area of his injury. Plan for x-rays. Per his caregiver he has also been having worsening difficulty swallowing Reevaluation(s) Reevaluation #1: Sustained a fall 2 days ago with right flank pain, feels slightly better after was given Toradol in the emergency department patient with a history mental status change and bad reaction to narcotic, rib/chest x-ray unremarkable CT abdomen pelvis was not performed because patient is claustrophobic and got anxious on the table. Will discharge take naproxen if needed for pain. Patient was given the option of staying in the emergency department and get PT evaluation and case management to place him to a short-term rehab but patient declined. Time: 21:00 Medications Administered Discontinued Medications Generic Name Dose Route Start Last Admin Trade Name Freq PRN Reason Stop Dose Admin Ketorolac Tromethamine 30 mg 12/09/23 19:16 12/09/23 19:41 Ketorolac Tromethamine 30 Mg/Ml Vial IM 12/09/23 19:17 30 mg ONCE ONE Administration Medical Decision Making Differential Diagnosis Differential Diagnoses: The differential diagnosis associated with the presentation includes ( Rib fracture, chest wall contusion, UTI, pyelonephritis, myofascial pain.) Admission/Observation Consideration of admission/observation: Escalation of care including admission/observation considered Lab Data MDM Lab Attestation statement: I reviewed the patient's lab results. Labs: Lab Results 12/09/23 Range/Units 20:03 Urine Color Yellow Urine Appearance Clear Urine pH 5.5 (5.0-9.0) Ur Specific [place] 1.010 (1.005-1.025) Urine Protein Trace (Neg-Trace) mg/dL Urine Glucose (UA) Negative (Negative) mg/dL Urine Ketones Negative (Negative) mg/dL Urine Blood Negative (Negative) Urine Nitrite Negative (Negative) Ur Leukocyte Esterase Negative (Negative) Independent Interpretation I performed an independent interpretation of an: Plain X-Ray ( Rib and chest: No acute pathology.) Radiology Impression Discussion of test interpretation with radiology: I have reviewed the radiologist's reading. Discharge Plan Discharge Clinical Impression: Muscular abdominal pain in right flank Patient Disposition: Home, Self-Care Instructions: Musculoskeletal Pain (ED) Prescriptions: New cyclobenzaprine 10 mg tablet 10 mg PO TID PRN (Reason: muscle spasm) Qty: 10 0RF naproxen 500 mg tablet 500 mg PO BID PRN (Reason: pain) Qty: 10 0RF No Action fluticasone propionate 50 mcg/actuation spray,suspension 1 spray intranasal DAILY Qty: 16 2RF (DME) pen needle, diabetic [Lite Touch Insulin Pen Labolt] 31 gauge x 5/16 needle See Rx Instructions .Route Qty: 100 12RF Rx Instructions: Use 3 times daily (DME) lancets [OneTouch Delica Lancets] 33 gauge misc See Rx Instructions .Route Qty: 100 12RF Rx Instructions: As directed 3 times a day metoclopramide HCl [Reglan] 10 mg tablet 10 mg PO AC PRN (Reason: nausea and vomiting) Qty: 20 0RF OneTouch Ultra Blue Test Strip Strip 1 strip miscellaneous TID Qty: 100 3RF (DME) blood-glucose meter [OneTouch Ultra2 Meter] Misc See Rx Instructions .ROUTE TID Qty: 1 Rx Instructions: test 3 times per day (DME) OneTouch Ultra Test Strip See Rx Instructions .Route Qty: 100 8RF Rx Instructions: test 3 times per day (DME) pen needle, diabetic [BD Ultra-Fine Orig Pen Needle] 29 gauge x 1/2 needle See Rx Instructions .Route Qty: 100 12RF Rx Instructions: 3 times daily (DME) pen needle, diabetic [BD Ultra-Fine Brittany Pen Needle] 32 gauge x needle See Rx Instructions .Route Qty: 1200 4RF Rx Instructions: test 3 times daily (DME) WALKER See Rx Instructions .Route .MEDSUPPLY Qty: 1 0RF Rx Instructions: As directed metoprolol tartrate 50 mg tablet 50 mg PO BID Qty: 180 1RF docusate sodium 100 mg capsule 100 mg PO BID PRN (Reason: constipation) 30 Days Qty: 60 3RF lisinopril 10 mg tablet 10 mg PO DAILY 90 Days Qty: 90 1RF aspirin 81 mg tablet,delayed release (DR/EC) 81 mg PO DAILY Qty: 90 0RF paroxetine HCl 40 mg tablet 40 mg PO DAILY Qty: 90 0RF (DME) Monthly Medication Organizer (Med-Box) 0 .Route .MEDSUPPLY ([facility]) monthly medication organizer (med box) See Rx Instructions .Route .MEDSUPPLY Qty: 1 0RF Rx Instructions: monthly medication organizer box; ([facility]) Semi-[facility]lectric [facility] Bed See Rx Instructions .Route .MEDSUPPLY Qty: 1 0RF Rx Instructions: As directed albuterol sulfate 90 mcg/actuation HFA aerosol inhaler 2 puff PO Q4-6H PRN (Reason: for wheezing) Qty: 8.5 2RF insulin lispro [Humalog KwikPen Insulin] 100 unit/mL insulin pen 15 - 20 unit subcut .TIDAC Qty: 15 3RF omeprazole 40 mg capsule,delayed release(DR/EC) 40 mg PO DAILY Qty: 30 3RF insulin glargine [Lantus Solostar U-100 Insulin] 100 unit/mL (3 mL) insulin pen 80 unit subcut BID Qty: 45 3RF cholecalciferol (vitamin D3) [Vitamin D3] 50 mcg (2,000 unit) capsule 50 mcg PO DAILY Qty: 90 3RF (DME) Disposable 30x30 polymer pads heavy floweds See Rx Instructions .Route .MEDSUPPLY Qty: 90 11RF Rx Instructions: As directed ([facility]) Active Mal guard pads 6 x 11 See Rx Instructions .Route .MEDSUPPLY Qty: 208 0RF Rx Instructions: As directed ([facility]) Cleansing wipes See Rx Instructions .Route .MEDSUPPLY Qty: 100 11RF Rx Instructions: As directed ([facility]) Powder free synthetic exam gloves small See Rx Instructions .Route .MEDSUPPLY Qty: 100 11RF Rx Instructions: As directed dicyclomine 20 mg tablet 20 mg PO QID PRN (Reason: abdominal pain) Qty: 20 0RF ondansetron HCl 4 mg tablet 4 mg PO Q6H PRN (Reason: nausea and vomiting) Qty: 14 0RF polyethylene glycol 3350 [Miralax] 17 gram/dose powder 17 g PO DAILY PRN (Reason: Constipation) atorvastatin 80 mg tablet 80 mg PO DAILY cefuroxime axetil 250 mg tablet 250 mg PO BID 7 Days Qty: 14 0RF phenazopyridine [Pyridium] 200 mg tablet 200 mg PO TID 2 Days Qty: 6 0RF ondansetron 4 mg tablet,disintegrating 4 mg PO Q8H PRN (Reason: nausea and vomiting) Qty: 20 0RF ([facility]) SHOWER CHAIR See Rx Instructions .Route .MEDSUPPLY Qty: 1 0RF Rx Instructions: As directed ([facility]) SHOWER CHAIR See Rx Instructions .Route .MEDSUPPLY Qty: 1 0RF Rx Instructions: As directed ([facility]) insulin syr/ndl U100 half gareth 0.5 mL 30 gauge x 5/16 syringe See Rx Instructions .Route Qty: 100 12RF Rx Instructions: Use 4 times daily gabapentin 400 mg capsule 400 mg PO TID Qty: 270 1RF (DME) walker Misc See Rx Instructions .Route Qty: 1 0RF Rx Instructions: As directed hydroxyzine HCl 25 mg tablet 25 mg PO Q6H PRN (Reason: anxiety) 30 Days Qty: 120 3RF cyanocobalamin (vitamin B-12) 1,000 mcg tablet 1,000 mcg PO DAILY 90 Days Qty: 90 3RF oxybutynin chloride 10 mg tablet extended release 24hr 10 mg PO DAILY Qty: 90 1RF tamsulosin [Flomax] 0.4 mg capsule 0.4 mg PO BEDTIME Qty: 90 2RF (DME) FreeStyle Iwona 3 Sensor Device See Rx Instructions .ROUTE .MEDSUPPLY Qty: 2 11RF Rx Instructions: As directed (DME) FreeStyle Iwona 3 [place] Misc See Rx Instructions .ROUTE .MEDSUPPLY Qty: 1 0RF Rx Instructions: as directed Print Language: Vietnamese
[2023-12-09 19:28] VITALS: BP 167/64; PULSE 59; RESP 16; TEMP 37; O2SAT 98
[2023-12-09] MEDS: Ketorolac Tromethamine 30 MG/ML VIAL IM (19:41)
[2023-12-09 20:16] LABS: Appearance Urine Clear; Color Urine Yellow; Glucose Urine UA Negative (Negative); Leukocyte Esterase Urine Negative (Negative); Nitrite Urine Negative (Negative); PH 5.5 (5.0-9.0); Urine Blood Negative (Negative); Urine Ketones Negative (Negative); Urine Protein Trace mg/dL (Neg-Trace)
[2023-12-09 21:19] VITALS: BP 167/64; PULSE 59; RESP 16; TEMP 37; O2SAT 98
== END 2023-12-09 21:20 | disposition home or self-care (01) ==
PROVIDERS: Emergency Provider Emergency Medicine; PCP Internal Medicine
DX: R10.9 Unspecified abdominal pain (principal); M79.18 Myalgia, other site; R07.81 Pleurodynia; Z91.81 History of falling; E11.9 Type 2 diabetes mellitus without complications; I10 Essential (primary) hypertension; E78.00 Pure hypercholesterolemia, unspecified; Z79.82 Long term (current) use of aspirin; Z79.899 Other long term (current) drug therapy; Z79.4 Long term (current) use of insulin; Z79.02 Long term (current) use of antithrombotics/antiplatelets
CPT/HCPCS: 71101; 81003; 96372; 99283; 99284; J1885

== ENCOUNTER 2023-12-12 10:47 | Outpatient (AMB) | payer OTHER, SELFPAY ==
--- NOTE | 2023-12-12 10:56 | A.OFFVIS_ITS ---
Vital Signs 12/12/23 10:57 Height 5 ft 4 in Weight 242 lb 8.136 oz BMI 41.6 BP 142/55 H Blood Pressure Location Rt brachial Position Sitting Intake Visit Reasons: diabetes check CGM Intake Note: Patient present today to follow up on Type 2 Diabetes Mellitus. Last Diabetic Eye exam: 11/14/2023 Last Podiatry Visit: Does not see a Customer Advocacy Manager Most Recent HgA1C: 8.8% 10/03/2023 Random Glucose: 187 mg/dl, Today Road Test Examiner Required: Yes Road Test Examiner Language: Panel Gluer Services: Road Test Examiner Offered & Declined Accompanied by: Niece Allergies hydromorphone [Dilaudid] Adverse Reaction (Unknown, Verified 12/09/23 15:10) confusion From DILAUDID Adverse Reaction (Severe, Uncoded 12/05/23 06:22) CONFUSION/HALLUCIATIONS From PERCOCET Adverse Reaction (Intermediate, Uncoded 12/05/23 06:22) AGITATION HPI Comments Details: This is a 68-year-old male with a past medical history of type 2 diabetes with neuropathy, dementia, JAIME, hyperlipidemia, hypercholesterolemia, CAD, depression and dementia presenting for management of type 2 diabetes. Accompanied by niece/Crystal MENDEZ (phone [phone]). He was initially diagnosed in 1981. He was last seen by me on 11/25/23. His niece says dementia is worsening. The patient fell 12/07/2023. They took him to the ER 12/09/2023. He injured his ribs but no fractures. He was put on naproxen and Flexeril. Flexeril is making him very sedated. They have an appointment with primary care on 12/25/2023. Patient was also seen at the emergency department on 12/05/2023. His niece says that he went to his mother's house at 4 in the morning, and he was unsure why he was there. Blood sugar was 374. He was treated with insulin and fluids and discharged home POC 187. 8.8% 10/03/2023. They reduced his dose of Lantus at night to 56 units, and he takes 60 units in the morning. His niece is not always there to administer the evening dose. He misses the dose sometimes or other times may take it at a different time. Last week he got both doses at least 3 days because she administered it. She administers Humalog before his breakfast and before lunch per sliding scale, but she says he forgets it a lot before his dinner which is his largest meal. She also suspects he takes it some time after dinner sometimes which may be contributing to ongoing nocturnal hypoglycemia. Humalog sliding scale 200-250: 2 units 251-300: 4 units 301-350: 6 units 351-400: 8 units Over 400: 10 units He was previously on Trulicity. Discontinued-history of pancreatitis. We discussed SGLT2, but he has a history of UTI and intertrigo. I reviewed today's CGM download dated 11/27/2023 through 12/10/2023 Time CGM active: 97% Average glucose 203 mg/dL GMI 8.2% Glucose variability 43.3% Very high 30% High 26% Target range 39% Low 5% Very low 0% Patient experiences hypoglycemia mostly between 12am and 4 am and 7 am to 2 am Hypoglycemia symptoms: Shakiness and increased confusion Hyperglycemia symptoms: Dry mouth, polydipsia and increased confusion Microvascular complications: Neuropathy, nephropathy (CKD) Macrovascular complications: CAD, TIA in 1996 and 2009 ROS: Constitutional: No unexplained weight loss, fever, chills or night sweats. Eyes: No vision changes Respiratory: No shortness of breath Cardiovascular: No chest pain Gastrointestinal: No anorexia, nausea, vomiting or diarrhea. No abdominal pain Neurologic: No headache, dizziness, syncope, Endocrine: No cold or heat intolerance. No polyuria Physical exam: Constitutional: Alert, in no distress. Appears tired. Ambulates with walker. Eyes: Pupils are equal, round and reactive to light. Extraocular muscles intact. Neck: Supple, Full range of motion. No lymphadenopathy. Abdomen: soft, nontender Ribs: right anterolateral area tender, no ecchymosis or swelling Respiratory: Clear to auscultation. Cardiovascular: S1 S2 regular. No murmurs. [facility] Medical History Type 2 diabetes mellitus with neurologic complication Gastritis and duodenitis Vitamin B12 deficiency Hyperkalemia Intertrigo Major depressive disorder, recurrent Benign prostatic hyperplasia with urinary frequency Constipation Obstructive sleep apnea Vitamin D deficiency Diabetic polyneuropathy Diabetes mellitus Obesity (BMI 30-39.9) Benign essential hypertension Pure hypercholesterolemia Coronary artery disease Surgical History Hx of cataract extraction (~2011) History of quadruple bypass (~2005) Hx of cystoscopy History of prostate surgery (~12/04/10) Hx of cholecystectomy (~2007) Family History Father Lung cancer Mother Diabetes Hypertension Stomach cancer Social History Household Members: None Housing: Apartment Do you presently have visiting nurse or other home services: No Alcohol intake: never Patient Tobacco Use Status: Former Tobacco user e-Cigarette/Vaping Use: Never Used Second Hand Smoke Exposure: No Advance Directives Date on File: 07/24/23 service: No Current occupational status: disabled Cognitive needs: Yes (cane) Hearing needs: No Vision needs: Yes Physical Exam Vital Signs: Last Vital Signs BP 142/55 H 12/12/23 10:57 BMI result Body Mass Index 41.6 Office Procedures Glucose Monitoring Details Details: see [facility] [id number] - Glucose monitoring, continuous-physician I&R Procedure code (CPT) selection complete Results Reviewed Results Reviewed: Laboratory Last Values Glucose (Clinic) 187 mg/dL (60-115) H 12/12/23 11:04 Assessment & Plan Assessment & Plan (1) Type 2 diabetes mellitus with neurologic complication: Code(s): E11.49 - Type 2 diabetes mellitus with other diabetic neurological complication Category: Medical Qualifiers: Diabetes mellitus complication detail: with polyneuropathy Diabetes m ellitus extermination inspector insulin use: with extermination inspector use Qualified Code(s): E11.42 - Type 2 diabetes mellitus with diabetic polyneuropathy; Z79.4 - [facility] (current) use of insulin Plan: In summary this is a 68-year-old male with suboptimally controlled type 2 diabetes micro and macrovascular complications on basal-bolus insulin. Given dementia we discussed simplifying his medication regimen. Due to his significant insulin requirement Lantus has been prescribed twice daily and improper administration is contributing to hyper and hypoglycemia. Tresiba is the preferred insulin for this patient and is medically necessary. Stop Lantus and start Tresiba U200 100 units every morning so that his DIRECTOR CHEMISTRY can consistently administer this for him. We discussed the dose may need to be adjusted, but we need to see how he is doing after getting the medication consistently. Continue humalog sliding scale and administer 15 minutes before meals. In order to decrease insulin requirement I will start him on Metformin ER 500 mg daily and increase based on tolerability and response. Side effects reviewed. Bring glucometer to visits so we can review data and make adjustments to the patient's medication regimen. Reviewed treatment of hypo/hyperglycemia. Follow up in 1 week for diabetes mellitus. Orders: Orders AMB Glucose Monitoring Today E11.9 - Type 2 diabetes mellitus without complications Medications: New insulin degludec (Tresiba FlexTouch U-200 insulin) Replaces insulin glargine (lantus). 100 units (0.5 mL) subcut DAILY 18 mL 5RF metformin ER 500 mg PO DAILY 90 tabs 0RF glucose (Dex4 Glucose) until symptoms of low blood sugar are controlled 16 grams (4 x 4 gram) PO Q15M PRN 60 tabs 1RF hypoglycemia Discontinued insulin glargine (Lantus Solostar U-100 Insulin) Discontinued Reason: Doctor's Order 80 units (0.8 mL) subcut BID 45 mL 3RF Coding Level of Care Code Est Pt Level 5 (66553) Diagnoses Type 2 diabetes mellitus with diabetic polyneuropathy, with long-term current use of insulin E11.42; Z79.4 Diabetes mellitus complication detail: with polyneuropathy Diabetes mellitus extermination inspector insulin use: with fpc use CPT Codes Details - CPT: 38772 - Glucose monitoring, continuous-physician I&R ([id number]) Time Spent (min) 50 Comment reviewing records, direct patient care, completing documentation
[2023-12-12 10:57] VITALS: BP 142/55; BMI 41.6
[2023-12-12 11:08] LABS: Glucose, Whole Blood 187 mg/dL (60-115)
== END 2023-12-12 11:56 | disposition home or self-care (01) ==
PROVIDERS: PCP Internal Medicine; Visit Provider Physician Assistant Medical
DX: E11.42 Type 2 diabetes mellitus with diabetic polyneuropathy (principal); Z79.4 Long term (current) use of insulin

== ENCOUNTER → 2023-12-12 10:47 | Outpatient (BNVA) | payer OTHER, SELFPAY | PROVIDERS: PCP Internal Medicine; Visit Provider Physician Assistant Medical | DX: E11.42 Type 2 diabetes mellitus with diabetic polyneuropathy (principal); E78.00 Pure hypercholesterolemia, unspecified; F03.90 Unspecified dementia, unspecified severity, without behavioral disturbance, psychotic disturbance, mood disturbance, and anxiety; Z79.4 Long term (current) use of insulin | CPT/HCPCS: 82947; 99212 ==

== ENCOUNTER 2023-12-23 15:05 | Outpatient (AMB) | payer OTHER, SELFPAY ==
--- NOTE | 2023-12-23 15:06 | A.OFFVIS_ITS ---
Vital Signs 12/23/23 15:08 Height 5 ft 4 in Weight 235 lb 14.314 oz BMI 40.5 BP 122/58 L Blood Pressure Location Rt brachial Position Sitting Pulse 85 Pulse Source Pulse Oximeter Intake Visit Reasons: DM Intake Note: Patient present today to follow up on Type 2 Diabetes Mellitus. Last Diabetic Eye exam: 11/14/2023 Last Podiatry Visit: Does not see a Openstack Cloud Consulting Architect Most Recent HgA1C: 8.8% 10/03/2023 Random Glucose: 166 mg/dL, Today Industrial Roof Plumber Required: Yes Industrial Roof Plumber Language: Net Software Developer Services: Industrial Roof Plumber Offered & Declined Accompanied by: Niece Allergies hydromorphone [Dilaudid] Adverse Reaction (Unknown, Verified 12/23/23 15:07) confusion From DILAUDID Adverse Reaction (Severe, Uncoded 12/23/23 15:07) CONFUSION/HALLUCIATIONS From PERCOCET Adverse Reaction (Intermediate, Uncoded 12/23/23 15:07) AGITATION Medication List - Last Reconciled 12/23/23 by SLOAN Pedersen [Active Mal guard pads 6 x 11 As directed] albuterol sulfate 90 mcg/actuation 2 puffs PO Q4-6H PRN aspirin 81 mg PO DAILY atorvastatin 80 mg PO DAILY blood sugar diagnostic (OneTouch Ultra Test strips) test 3 times per day blood sugar diagnostic 1 strip miscellaneous TID blood-glucose meter (OneTouch Ultra2 Meter) test 3 times per day blood-glucose meter,continuous (FreeStyle Iwona 3 [place]) as directed blood-glucose sensor (FreeStyle Iwona 3 Sensor device) As directed cefuroxime axetil 250 mg PO BID 7 days cholecalciferol (vitamin D3) (Vitamin D3) 50 mcg PO DAILY [Cleansing wipes As directed] cyanocobalamin (vitamin B-12) 1,000 mcg PO DAILY 90 days cyclobenzaprine 10 mg PO TID PRN dicyclomine 20 mg PO QID PRN [Disposable 30x30 polymer pads heavy floweds As directed] docusate sodium 100 mg PO BID PRN 30 days fluticasone propionate 50 mcg/actuation 1 spray intranasal DAILY gabapentin 400 mg PO TID glucose (Dex4 Glucose) 16 grams (4 x 4 gram) PO Q15M PRN hydroxyzine HCl 25 mg PO Q6H PRN 30 days insulin degludec (Tresiba FlexTouch U-200 insulin) 100 units (0.5 mL) subcut DAILY insulin lispro (Humalog KwikPen (U-100) Insulin) 15 - 20 units (0.15 - 0.2 mL) subcut .TIDAC insulin syr/ndl U100 half gareth Use 4 times daily lancets ([employer] Delica Lancets) As directed 3 times a day lisinopril 10 mg PO DAILY 90 days metformin ER 1,000 mg PO DAILY metoclopramide HCl (Reglan) 10 mg PO AC PRN metoprolol tartrate 50 mg PO BID [monthly medication organizer (med box) monthly medication organizer box; ] [Monthly Medication Organizer (Med-Box) ] naproxen 500 mg PO BID PRN omeprazole 40 mg PO DAILY ondansetron 4 mg PO Q8H PRN ondansetron HCl 4 mg PO Q6H PRN oxybutynin chloride ER 10 mg PO DAILY paroxetine HCl 40 mg PO DAILY pen needle, diabetic (Lite Touch Insulin Pen [place]) Use 3 times daily pen needle, diabetic (BD Ultra-Fine Original Pen Needle) 3 times daily pen needle, diabetic (BD Ultra-Fine Brittany Pen Needle) test 3 times daily phenazopyridine (Pyridium) 200 mg PO TID 2 days polyethylene glycol 3350 (Miralax) 17 grams PO DAILY PRN [Powder free synthetic exam gloves As directed] [Semi-Electric Hospital Bed As directed] [SHOWER CHAIR As directed] [SHOWER CHAIR As directed] tamsulosin (Flomax) 0.4 mg PO BEDTIME [WALKER As directed] walker As directed HPI Comments Details: This is a 68-year-old male with a past medical history of type 2 diabetes with neuropathy, dementia, JAIME, hyperlipidemia, hypercholesterolemia, CAD, depression and dementia presenting for management of type 2 diabetes. Accompanied by niece/SNOW REMOVAL SUPERVISORCrystal (phone [phone]). He was initially diagnosed in 1981. He was last seen by me on 12/12/23. POC 166, but his Iwona 3 sensor is reading 49. They tell me that this started happening this morning. It was 44, but when she checked a fingerstick glucose it was 178. He denies symptoms of hypoglycemia. Sensor was applied 4 days ago. Patient states that the Iwona 3 sensor before this 1 did not work and gave an error message. POC 187. 8.8% 10/03/2023. Current regimen: Lantus 60 units in the morning and 56 units at night, metformin extended release 500 mg once daily, Humalog per sliding scale. I prescribed Tresiba 100 units in the morning to replace Lantus due to episodes of hyper and hypoglycemia and inconsistencies with medication administration. His niece is usually not there in the evening to administer the dose. Patient says today that he is taking the dose in the evening, but she feels strongly that this is not the case or that he is not getting it consistently so they did not start the Tresiba due to concerns about hypoglycemia on the dose prescribed. She administers Humalog before his breakfast and before lunch per sliding scale, but she says he forgets it a lot before his dinner which is his largest meal. She also suspects he takes it some time after dinner. We started metformin after his last visit in an attempt to decrease the amount of prandial insulin he needs. They have seen a significant benefit with this, and he denies side effects to the medication. Humalog sliding scale 200-250: 2 units 251-300: 4 units 301-350: 6 units 351-400: 8 units Over 400: 10 units He was previously on Trulicity. Discontinued-history of pancreatitis. He has not taken an SGLT2, but he has a history of UTI and intertrigo. Patient's CGM was only active 33% of the time from December 09 to 12/23/2023. Target range 58% High 16% Very high 16% Low 6% - erroneous data from today Very low 4% - erroneous data from today Glucose variability 47.5% Average glucose 158 Hypoglycemia symptoms: None Hyperglycemia symptoms: Dry mouth, polydipsia and increased confusion Microvascular complications: Neuropathy, nephropathy (CKD) Macrovascular complications: CAD, TIA in 1996 and 2009 ROS: Constitutional: No unexplained weight loss, fever, chills or night sweats. Eyes: No vision changes Respiratory: No shortness of breath Cardiovascular: No chest pain Gastrointestinal: No anorexia, nausea, vomiting or diarrhea. No abdominal pain Neurologic: No headache, dizziness, syncope, Endocrine: No cold or heat intolerance. No polyuria Physical exam: Constitutional: Alert, in no distress. Appears alert today. Ambulates with walker. Eyes: Pupils are equal, round and reactive to light. Extraocular muscles intact. Neck: Supple, Full range of motion. No lymphadenopathy. Respiratory: Clear to auscultation. Cardiovascular: S1 S2 regular. No murmurs. [facility] Medical History Type 2 diabetes mellitus with neurologic complication Gastritis and duodenitis Vitamin B12 deficiency Hyperkalemia Intertrigo Major depressive disorder, recurrent Benign prostatic hyperplasia with urinary frequency Constipation Obstructive sleep apnea Vitamin D deficiency Diabetic polyneuropathy Diabetes mellitus Obesity (BMI 30-39.9) Benign essential hypertension Pure hypercholesterolemia Coronary artery disease Surgical History Hx of cataract extraction (~2011) History of quadruple bypass (~2005) Hx of cystoscopy History of prostate surgery (~12/04/10) Hx of cholecystectomy (~2007) Family History Father Lung cancer Mother Diabetes Hypertension Stomach cancer Social History Household Members: None Housing: Apartment Do you presently have visiting nurse or other home services: No Alcohol intake: never Patient Tobacco Use Status: Former Tobacco user e-Cigarette/Vaping Use: Never Used Second Hand Smoke Exposure: No Advance Directives Date on File: 07/24/23 service: No Current occupational status: disabled Cognitive needs: Yes (cane) Hearing needs: No Vision needs: Yes Physical Exam Vital Signs: Last Vital Signs Pulse 85 12/23/23 15:08 BP 122/58 L 12/23/23 15:08 BMI result Body Mass Index 40.5 Results Reviewed Results Reviewed: Laboratory Last Values Glucose (Clinic) 166 mg/dL (60-115) H 12/23/23 15:22 Assessment & Plan Assessment & Plan (1) Type 2 diabetes mellitus with neurologic complication: Code(s): E11.49 - Type 2 diabetes mellitus with other diabetic neurological complication Category: Medical Qualifiers: Diabetes mellitus nursing home insulin use: with truck terminal manager use Diabetes mellitus complication detail: with polyneuropathy Qualified Code(s): E11.42 - Type 2 diabetes mellitus with diabetic polyneuropathy; Z79.4 - [facility] (current) use of insulin Plan: In summary this is a 68-year-old male with suboptimally controlled type 2 diabetes with micro and macrovascular complications on basal-bolus insulin and metformin. Given dementia we again revisited the goal of simplifying his medication regimen. I am concerned about him switching to Tresiba without knowing how much Lantus he is getting in a 24 hour period especially given the sizable doses he is supposed to be taking. His niece says she will try tracking this until his next visit and will not start Tresiba yet. Continue humalog sliding scale and administer 15 minutes before meals. Increase metformin extended release to 500 mg 2 tablets daily. Side effects reviewed. The Iwona 3 sensor was removed at the visit. Iwona 3 plus sensor applied to patient at the visit. Reviewed treatment of hypo/hyperglycemia. He has a follow up scheduled in 2 weeks with me for type 2 diabetes. Medications: New insulin glargine (Lantus Solostar U-100 Insulin) subcutaneously 60 units every morning and 56 units every evening Discontinued insulin degludec (Tresiba FlexTouch U-200 insulin) Replaces insulin glargine (lantus). Discontinued Reason: Doctor's Order 100 units (0.5 mL) subcut DAILY 18 mL 5RF Coding Level of Care Code Est Pt Level 5 (67935) Complex EM visit Add On G2211 Diagnoses Type 2 diabetes mellitus with diabetic polyneuropathy, with long-term current use of insulin E11.42; Z79.4 Diabetes mellitus truck terminal manager insulin use: with nursing home use Diabetes mellitus complication detail: with polyneuropathy Time Spent (min) 58 Comment Direct patient care and completing documentation
[2023-12-23 15:08] VITALS: BP 122/58; PULSE 85; BMI 40.5
[2023-12-23 15:30] LABS: Glucose, Whole Blood 166 mg/dL (60-115)
== END 2023-12-23 16:11 | disposition home or self-care (01) ==
PROVIDERS: PCP Internal Medicine; Visit Provider Physician Assistant Medical
DX: E11.42 Type 2 diabetes mellitus with diabetic polyneuropathy (principal); Z79.4 Long term (current) use of insulin

== ENCOUNTER → 2023-12-23 15:05 | Outpatient (BNVA) | payer OTHER, SELFPAY | PROVIDERS: PCP Internal Medicine; Visit Provider Physician Assistant Medical | DX: E11.42 Type 2 diabetes mellitus with diabetic polyneuropathy (principal); Z79.4 Long term (current) use of insulin | CPT/HCPCS: 82947; 99212 ==

== ENCOUNTER 2023-12-25 10:18 | Outpatient (AMB) | payer OTHER, SELFPAY ==
[2023-12-25 10:35] VITALS: BP 148/66; PULSE 64; O2SAT 98; BMI 40.2
--- NOTE | 2023-12-25 10:35 | A.OFFPC_ITS ---
Vital Signs 12/25/23 10:35 Height 5 ft 4 in Weight 234 lb 6 oz BMI 40.2 BP 148/66 H Blood Pressure Location Rt brachial Position Sitting Pulse 64 Pulse Source Pulse Oximeter Pulse Oximetry (%) 98 Oxygen Delivery Method Room Air Intake Visit Reasons: [facility] 12/06 fall Online Merchant Required: No Accompanied by: Niece-BASEBALL GLOVE STUFFER Allergies hydromorphone [Dilaudid] Adverse Reaction (Unknown, Verified 12/25/23 10:36) confusion From DILAUDID Adverse Reaction (Severe, Uncoded 12/25/23 10:36) CONFUSION/HALLUCIATIONS From PERCOCET Adverse Reaction (Intermediate, Uncoded 12/25/23 10:36) AGITATION Tobacco use date assessed: 05/02/23 Fall risk assessment: No Falls in past year Last assessed Fall Risk: 12/25/23 Dental Screening Dental Screen Date: 05/02/23 HPI HPI Comments History of Present Illness Details 68 y/o male patient who presents to the clinic today for EDF. Pt was admitted at [facility] on 12/09/23 and discharged home the same day. Pt suffered a Fall at home, after he lost his balance due to BLE weakness. He reports Lower back pain. He was discharged home with Naproxen and Flexeril. Today he continues to c/o back pain. His Import/Export Specialist reports that she has noticed Memory changes on patient. Pt has F/U with PCP in January. [facility] Medical History Type 2 diabetes mellitus with neurologic complication Gastritis and duodenitis Vitamin B12 deficiency Hyperkalemia Intertrigo Major depressive disorder, recurrent Benign prostatic hyperplasia with urinary frequency Constipation Obstructive sleep apnea Vitamin D deficiency Diabetic polyneuropathy Diabetes mellitus Obesity (BMI 30-39.9) Benign essential hypertension Pure hypercholesterolemia Coronary artery disease Surgical History Hx of cataract extraction (~2011) History of quadruple bypass (~2005) Hx of cystoscopy History of prostate surgery (~12/04/10) Hx of cholecystectomy (~2007) Family History Father Lung cancer Mother Diabetes Hypertension Stomach cancer Social History Household Members: None Housing: Apartment Do you presently have visiting nurse or other home services: No Alcohol intake: never Patient Tobacco Use Status: Former Tobacco user e-Cigarette/Vaping Use: Never Used Second Hand Smoke Exposure: No Advance Directives Date on File: 07/24/23 service: No Current occupational status: disabled Cognitive needs: Yes (cane) Hearing needs: No Vision needs: Yes Questionnaire Thrive Questionnaire Date Thrive assessed: 05/02/23 CHEL-7 AMB Questionnaire CHEL-7 Date CHEL - 7 assessed: 05/02/23 Source: Developed by Drs. Steven Miller, Monie Garduno, Trevor Lin and colleagues, with an educational kwabena from [employer]. Review of Systems Const All systems reviewed & are unremarkable except as noted in HPI and below Physical exam (Primary Care) Vital Signs: Last Vital Signs Pulse 64 12/25/23 10:35 BP 148/66 H 12/25/23 10:35 Pulse Ox 98 12/25/23 10:35 Oxygen Delivery Method Room Air 12/25/23 10:35 BMI result Body Mass Index 40.2 Tobacco/Smoking Status: Tobacco use Status Tobacco use date assessed 05/02/23 12/25/23 10:37 Patient Tobacco Use Status Former Tobacco user 12/25/23 10:37 e-Cigarette/Vaping Use Never Used 12/25/23 10:37 Thrive Assessment: Date of Thrive Assessment Date Thrive assessed 05/02/23 12/25/23 10:37 Const General: cooperative and no acute distress Nutritional Appearance: obese Orientation/consciousness: patient oriented x3 Limitations: ambulation with walker GI Inspection: Yes Abdominal panniculus present Back/Spine/Pelvis Back: back tenderness Thoracic/Lumbar Spine: pain with thoraco-lumbar ROM and lumbar spinal tenderness Neuro General: patient oriented x3 and moves all extremities Psych Speech and movement: Normal speech and movement present Office Procedures Flu Questionnaire Does the patient have a severe egg allergy?: No Does the patient have severe life threatening allergies?: No Does the patient have a fever or illness today?: No Results AMB Hemoglobin A1c AMB Hemoglobin A1c 7.4 % Last Edit by AMOR Joya on 12/25/23 10:41 Immunizations Fluarix Triv [id number] (PF) 45 mcg (15 mcg x 3)/0.5 mL IM syringe Performing Provider: Nadya Wells NP Per[facility] Administered by: AMOR Joya on 12/25/23 10:37 Dose Route Admin Location Dispensed Lot Number Expiration Date [facility] Senior Qc Technician 0.5 mL IM Left Deltoid 0.5 mL [id number] 09/06/24 [id number] Silver Curve VIS Given Date VIS Provided VIS Publication Date 12/25/23 Single Vaccine 20 Eligibility Eligibility Date Funding Source Not [facility] Eligible 12/25/23 Private Results Reviewed Results Reviewed: Laboratory Last Values Hgb A1c (Clinic) 7.4 % (4.0-6.0) H 12/25/23 10:41 Coding Level of Care Code Est Pt Level 4 (12400) Diagnoses Chronic right-sided low back pain without sciatica M54.50; G89.29 Back pain laterality: right Chronicity: chronic Sciatica presence: without sciatica Time Spent (min) 20 Comment Spent on reviewing hospital notes and patient education Assessment & Plan Assessment & Plan (1) Low back pain: Code(s): M54.50 - Low back pain, unspecified Qualifiers: Back pain laterality: right Chronicity: chronic Sciatica presence: without sciatica Qualified Code(s): M54.50 - Low back pain, unspecified; G89.29 - Other chronic pain Plan: Ordered Lidocaine Patches for pain relief. Continue taking NSAIDs and Acetaminophen for pain relief. Ordered PT Ordered Muscle relaxants. Orders: Orders Influenza [id number] Immunization Today Z23 - Encounter for immunization PT Evaluation and Treatment Today G89.29 - Other chronic pain, M54.50 - Low back pain, unspecified AMB Hemoglobin A1c Today E11.40 - Type 2 diabetes mellitus with diabetic neuropathy, unspecified, Z79.4 - roasterman (current) use of insulin Medications: New lidocaine 5% leave on most painful area for up to 12 hrs 1 patch topical DAILY 30 ea 0RF G89.29 - Other chronic pain, M54.50 - Low back pain, unspecified metaxalone 800 mg PO BEDTIME 10 tabs 0RF G89.29 - Other chronic pain, M54.50 - Low back pain, unspecified Refilled naproxen 500 mg PO BID PRN 60 tabs 0RF pain G89.29 - Other chronic pain, M54.50 - Low back pain, unspecified Discontinued cyclobenzaprine Discontinued Reason: Patient Completed Course 10 mg PO TID PRN 10 tabs 0RF muscle spasm
== END 2023-12-25 10:51 | disposition home or self-care (01) ==
PROVIDERS: PCP Internal Medicine; Visit Provider Nurse Practitioner Family
DX: M54.50 Low back pain, unspecified (principal); G89.29 Other chronic pain; E11.40 Type 2 diabetes mellitus with diabetic neuropathy, unspecified; Z79.4 Long term (current) use of insulin; Z23 Encounter for immunization

== ENCOUNTER → 2023-12-25 10:18 | Outpatient (BNVA) | payer OTHER, SELFPAY | PROVIDERS: PCP Internal Medicine; Visit Provider Nurse Practitioner Family | DX: G89.29 Other chronic pain (principal); M54.50 Low back pain, unspecified; E11.40 Type 2 diabetes mellitus with diabetic neuropathy, unspecified; Z79.4 Long term (current) use of insulin; Z23 Encounter for immunization | CPT/HCPCS: 83036; 90471; 90656; 99212 ==

== ENCOUNTER 2024-01-09 11:31 | Outpatient (REF) | payer OTHER, SELFPAY ==
[2024-01-09 14:19] LABS: Estimated Glomerular Filt Rate 56
== END 2024-01-09 11:32 | disposition home or self-care (01) ==
LOC: HO.LAB 11:31
PROVIDERS: PCP Internal Medicine; Visit Provider Physician Assistant Medical
DX: E11.42 Type 2 diabetes mellitus with diabetic polyneuropathy (principal); Z79.4 Long term (current) use of insulin
CPT/HCPCS: 36415; 82565; 82947; 99212

== ENCOUNTER 2024-01-09 11:31 | Outpatient (AMB) | payer OTHER, SELFPAY ==
--- NOTE | 2024-01-09 11:33 | A.OFFVIS_ITS ---
Vital Signs 01/09/24 11:38 Height 5 ft 4 in Weight 233 lb 11.04 oz BMI 40.1 BP 120/70 Blood Pressure Location Rt brachial Position Sitting Pulse 70 Pulse Source Pulse Oximeter Intake Visit Reasons: T2DM/CONFIRMED Intake Note: Patient present today to follow up on Type 2 Diabetes Mellitus. Last Diabetic Eye exam: 11/14/2023 Last Podiatry Visit: Does not see a Chief I Dispatcher Most Recent HgA1C: 7.4%, 12/25/2023 Random Glucose: 98 mg/dL, Today Biometrics Consultant Required: Yes Biometrics Consultant Language: Crate Icer Services: Biometrics Consultant Offered & Declined Accompanied by: Niece Allergies hydromorphone [Dilaudid] Adverse Reaction (Unknown, Verified 12/25/23 10:36) confusion From DILAUDID Adverse Reaction (Severe, Uncoded 12/25/23 10:36) CONFUSION/HALLUCIATIONS From PERCOCET Adverse Reaction (Intermediate, Uncoded 12/25/23 10:36) AGITATION HPI Comments Details: This is a 68-year-old male with a past medical history of type 2 diabetes with neuropathy, dementia, JAIME, hyperlipidemia, hypercholesterolemia, CAD, depression and dementia presenting for management of type 2 diabetes. Accompanied by niece/PUBLIC HEALTH TEACHERCrystal (phone [phone]). He was initially diagnosed in 1981. He was last seen by me on 12/23/23. POC 98. A1c 7.4% 12/25/2023 down from 8.8% 10/03/2023. Current regimen: Lantus 60 units in the morning and 56 units at night, metformin extended release 500 mg 2 tabs daily, Humalog per sliding scale. Previously documented that his niece his PUBLIC HEALTH TEACHER leaves at 3 or 17:00 and is not there to administer evening doses of Humalog and Lantus. She sometimes that is the Lantus up for him, but when she comes back in the morning it has not been administered. This happens to half the days of the week. She says that when he does administer it she thinks those are the mornings he has low blood sugar. She also does not know if he is administering Humalog correctly. Humalog sliding scale 200-250: 2 units 251-300: 4 units 301-350: 6 units 351-400: 8 units Over 400: 10 units He was previously on Trulicity. Discontinued-history of pancreatitis. He has not taken an SGLT2, but he has a history of UTI and intertrigo. Reviewed CGM download dated 12/27/23 - 01/09/2024 CGM active 96% Average glucose 183 G [place] 7.7% Glucose variability 34.3% Very high 15% High 38% Target 44% Low 3% Very low 0% Patient experiences overnight, morning and evening lows. Hypoglycemia symptoms: None Hyperglycemia symptoms: Dry mouth, polydipsia and increased confusion Microvascular complications: Neuropathy, nephropathy (CKD) Macrovascular complications: CAD, TIA in 1996 and 2009 ROS: Constitutional: No unexplained weight loss, fever, chills or night sweats. Eyes: No vision changes Respiratory: No shortness of breath Cardiovascular: No chest pain Gastrointestinal: No anorexia, nausea, vomiting or diarrhea. No abdominal pain Neurologic: No headache, dizziness, syncope Endocrine: No cold or heat intolerance. No polyuria Physical exam: Constitutional: Alert, in no distress. Appears alert today. Ambulates with walker. Eyes: Pupils are equal, round and reactive to light. Extraocular muscles intact. Neck: Supple, Full range of motion. No lymphadenopathy. Respiratory: Clear to auscultation. Cardiovascular: S1 S2 regular. No murmurs. [facility] Medical History Type 2 diabetes mellitus with neurologic complication Gastritis and duodenitis Vitamin B12 deficiency Hyperkalemia Intertrigo Major depressive disorder, recurrent Benign prostatic hyperplasia with urinary frequency Constipation Obstructive sleep apnea Vitamin D deficiency Diabetic polyneuropathy Diabetes mellitus Obesity (BMI 30-39.9) Benign essential hypertension Pure hypercholesterolemia Coronary artery disease Surgical History Hx of cataract extraction (~2011) History of quadruple bypass (~2005) Hx of cystoscopy History of prostate surgery (~12/04/10) Hx of cholecystectomy (~2007) Family History Father Lung cancer Mother Diabetes Hypertension Stomach cancer Social History Household Members: None Housing: Apartment Do you presently have visiting nurse or other home services: No Alcohol intake: never Patient Tobacco Use Status: Former Tobacco user e-Cigarette/Vaping Use: Never Used Second Hand Smoke Exposure: No Advance Directives Date on File: 07/24/23 service: No Current occupational status: disabled Cognitive needs: Yes (cane) Hearing needs: No Vision needs: Yes Physical Exam Vital Signs: Last Vital Signs Pulse 70 01/09/24 11:38 BP 120/70 01/09/24 11:38 BMI result Body Mass Index 40.1 Assessment & Plan Assessment & Plan (1) Type 2 diabetes mellitus with neurologic complication: Code(s): E11.49 - Type 2 diabetes mellitus with other diabetic neurological complication Category: Medical Qualifiers: Diabetes mellitus exterminator insulin use: with exterminator use Diabetes mellitus complication detail: with polyneuropathy Qualified Code(s): E11.42 - Type 2 diabetes mellitus with diabetic polyneuropathy; Z79.4 - [facility] (curre nt) use of insulin Plan: In summary this is a 68-year-old male with suboptimally controlled type 2 diabetes with micro and macrovascular complications on basal-bolus insulin and metformin. Continue Lantus 60 units in the morning and decrease to 50 units at night due to hypoglycemic events. Continue humalog sliding scale and administer 15 minutes before meals. Increase metformin extended release to 500 mg 2 tablets qam and 1 tablet in the afternoon. Side effects reviewed. Check creatinine today. Reviewed treatment of hypo/hyperglycemia. I submitted a letter to [facility] to request an increase in his PUBLIC HEALTH TEACHER hours because he is unable to administer his medications consistently in the evening. Follow up in 4 weeks for type 2 diabetes. Orders: Orders Creatinine Today E11.42 - Type 2 diabetes mellitus with diabetic p olyneuropathy, Z79.4 - [facility] (current) use of insulin Medications: Changed From metformin ER 1,000 mg PO DAILY To metformin ER 1,500 mg (3 x 500 mg) PO DAILY 90 days 270 tabs 0RF Patient Instructions: Increase Metformin 500 mg to 3 tablets daily. He can take 2 in the morning and 1 in the afternoon or evening. Continue sliding scale for Humalog. Continue Lantus 60 units in the morning and decrease Lantus to 50 units in the evening. Coding Level of Care Code Est Pt Level 4 (82214) Complex EM visit Add On G2211 Diagnoses Type 2 diabetes mellitus with diabetic polyneuropathy, with long-term current use of insulin E11.42; Z79.4 Diabetes mellitus exterminator insulin use: with exterminator use Diabetes mellitus complication detail: with polyneuropathy
[2024-01-09 11:38] VITALS: BP 120/70; PULSE 70; BMI 40.1
[2024-01-09 11:47] LABS: Glucose, Whole Blood 98 mg/dL (60-115)
== END 2024-01-09 12:22 | disposition home or self-care (01) ==
LOC: HO.ENCR 11:31
PROVIDERS: PCP Internal Medicine; Visit Provider Physician Assistant Medical
DX: E11.42 Type 2 diabetes mellitus with diabetic polyneuropathy (principal); Z79.4 Long term (current) use of insulin

== ENCOUNTER 2024-02-12 10:17 | Outpatient (AMB) | payer OTHER, SELFPAY ==
--- NOTE | 2024-02-12 10:42 | MHC.AMDMED ---
Intake Intake Visit Reasons: 60 min-lvm Stationary Boiler Fireman Required: Yes Stationary Boiler Fireman Language: Scottish Allergies hydromorphone [Dilaudid] Adverse Reaction (Unknown, Verified 12/25/23 10:36) confusion From DILAUDID Adverse Reaction (Severe, Uncoded 12/25/23 10:36) CONFUSION/HALLUCIATIONS From PERCOCET Adverse Reaction (Intermediate, Uncoded 12/25/23 10:36) AGITATION HPI Comprehensive Diabetes Asmnt Most Recent Diabetes Results: Hemoglobin A1c 10.4 % 10/13/19 Microalb/Creat Ratio 141.4 ug/mg cr 09/09/22 Cholesterol 146 mg/dL 09/09/22 HDL Cholesterol 27 mg/dL 09/09/22 Triglycerides 251 mg/dL 09/09/22 Creatinine 1.28 mg/dL (0.5-1.4) 01/09/24 Blood Urea Nitrogen 27 mg/dL (9-16) H 12/05/23 Sodium 136 mmol/L (135-145) 12/05/23 Potassium 3.9 mmol/L (3.3-5.1) 12/05/23 Chloride 100 mmol/L (96-108) 12/05/23 Carbon Dioxide 25 mmol/L (22-29) 12/05/23 Calcium 9.8 mg/dL (8.4-10.2) 12/05/23 AST 20 U/L (5-37) 12/05/23 ALT 27 U/L (0-40) 12/05/23 Total Protein 7.2 g/dL (6.5-8.0) 12/05/23 Albumin 3.9 g/dL (3.5-5.0) 12/05/23 [facility] Medical History Type 2 diabetes mellitus with neurologic complication Gastritis and duodenitis Vitamin B12 deficiency Hyperkalemia Intertrigo Major depressive disorder, recurrent Benign prostatic hyperplasia with urinary frequency Constipation Obstructive sleep apnea Vitamin D deficiency Diabetic polyneuropathy Diabetes mellitus Obesity (BMI 30-39.9) Benign essential hypertension Pure hypercholesterolemia Coronary artery disease Surgical History Hx of cataract extraction (~2011) History of quadruple bypass (~2005) Hx of cystoscopy History of prostate surgery (~12/04/10) Hx of cholecystectomy (~2007) Family History Father Lung cancer Mother Diabetes Hypertension Stomach cancer Social History Household Members: None Housing: Apartment Do you presently have visiting nurse or other home services: No Alcohol intake: never Patient Tobacco Use Status: Former Tobacco user e-Cigarette/Vaping Use: Never Used Second Hand Smoke Exposure: No Advance Directives Date on File: 07/24/23 service: No Current occupational status: disabled Cognitive needs: Yes (cane) Hearing needs: No Vision needs: Yes Assessment & Plan Assessment & Plan (1) Type 2 diabetes mellitus without complications: Code(s): E11.9 - Type 2 diabetes mellitus without complications Plan: Personal Continuous Glucose Monitor: Patients CGM information reviewed, Pt uses Shotsyle [place] 3 sensor with [place] Sensor data: Hypoglycemia: ? 0% Hyperglycemia:?94% Time in Range:?6% Average glucose for the last 2 weeks? 333 mg/dL Patient was at visit without TROUBLE SHOOTER, patient could not answer how he is taking his Humalog Recommendation?to switch patient from Lantus to Tresiba U 200, sent to provider. This may help with medication adherence Patient has assistance at home to insert sensor independently at home without issue.? Portions of this note were created using voice recognition software, please excuse any words or phrases that may have been misinterpreted. Patient Instructions: Seguimiento con Adrianna, la asistente mayelin, arsh 08/20/23 Coding Level of Care Code Est Pt Level 1 (15260) Diagnoses Type 2 diabetes mellitus without complications E11.9
== END 2024-02-12 10:51 | disposition home or self-care (01) ==
PROVIDERS: PCP Internal Medicine; Visit Provider Registered Nurse Diabetes Educator
DX: E11.9 Type 2 diabetes mellitus without complications (principal)

== ENCOUNTER → 2024-02-12 10:17 | Outpatient (BNVA) | payer OTHER, SELFPAY | PROVIDERS: PCP Internal Medicine; Visit Provider Registered Nurse Diabetes Educator | DX: E11.9 Type 2 diabetes mellitus without complications (principal) | CPT/HCPCS: 99211 ==

== ENCOUNTER 2024-02-18 12:59 | Emergency (ER) | payer OTHER, SELFPAY ==
[2024-02-18 13:33] VITALS: BP 132/94; PULSE 89; O2SAT 95
[2024-02-18 13:38] VITALS: BP 168/72; PULSE 87; RESP 18; TEMP 36.8; O2SAT 97; BMI 37.5
[2024-02-18 13:40] LABS: Glucose, Whole Blood 418 mg/dL (60-115)
--- NOTE | 2024-02-18 13:44 | ECG_ITS ---
Test Reason : abd pain Blood Pressure : / mmHG Vent. Rate : 089 BPM Atrial Rate : 089 BPM P-R Int : 178 ms QRS Dur : 098 ms QT Int : 386 ms P-R-T Axes : 040 -30 111 degrees QTc Int : 469 ms Normal sinus rhythm Left axis deviation Left ventricular hypertrophy with repolarization abnormality ( R in aVL , Ezekiel product ) Cannot rule out Septal infarct (cited on or before 09-MAY-2023) Abnormal ECG When compared with ECG of 05-DEC-2023 06:21, No significant change was found Referred By: Renea Osuna Electronically Signed By:BAN SPANGLER MD
--- NOTE | 2024-02-18 13:58 | ED.GENADULT ---
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 Osuna HPI narrative: A 68-year-old male speaking with history of dementia, DM, came in by ambulance for evaluation of few minutes of feeling generalized weakness and not feeling well when he woke up from an afternoon nap. Symptoms lasted for about 5 minutes then patient at his baseline, family called 911 and was transported to the hospital. Patient currently symptoms, no chest pain, no shortness of breath, no abdominal pain, no nausea, no vomiting, no diarrhea, no fever,. Related Data Home Medications ?Medication ?Instructions ?Recorded ?Confirmed polyethylene glycol 3350 17 17 g PO DAILY PRN Constipation 10/09/22 10/03/23 gram/dose oral powder (Miralax) blood-glucose meter (PurposeMatch (formerly [employer]) #1 ea 11/27/22 10/03/23 Ultra2 Meter) atorvastatin 80 mg tablet 80 mg PO DAILY 05/11/23 10/03/23 Monthly Medication Organizer 10/03/23 (Med-Box) insulin glargine 100 unit/mL (3 See Rx Instructions subcut QAM 12/23/23 12/23/23 mL) subcutaneous pen (Lantus Solostar U-100 Insulin) Previous Rx's ?Medication ?Instructions ?Recorded SHOWER CHAIR #1 ea 10/05/20 SHOWER CHAIR #1 ea 01/10/21 fluticasone propionate 50 1 spray intranasal DAILY #16 grams 03/16/21 mcg/actuation nasal spray,suspension insulin syr/ndl U100 half gareth 0.5 #100 ea 05/14/21 mL 30 gauge x 5/16 pen needle, diabetic 31 gauge x #100 ea 03/12/22 5/16 (Lite Touch Insulin Pen [place]) lancets 33 gauge (OneTouch Delica #100 ea 03/13/22 Lancets) dicyclomine 20 mg tablet 20 mg PO QID PRN abdominal pain 07/05/22 #20 tabs ondansetron HCl 4 mg tablet 4 mg PO Q6H PRN nausea and 07/06/22 vomiting #14 tabs metoclopramide HCl 10 mg tablet 10 mg PO AC PRN nausea and 11/12/22 (Reglan) vomiting #20 tabs blood sugar diagnostic 1 strip miscellaneous TID #100 11/27/22 strips blood sugar diagnostic (OneTouch #100 ea 01/13/23 Ultra Test strips) pen needle, diabetic 29 gauge x #100 ea 04/02/2303/11 (BD Ultra-Fine Original Pen Needle) pen needle, diabetic 32 gauge x #1,200 ea 04/02/23 (BD Ultra-Fine Brittany Pen Needle) WALKER #1 ea 04/09/23 oxybutynin chloride 10 mg 10 mg PO DAILY #90 tabs 04/16/23 tablet,extended release 24 hr tamsulosin 0.4 mg capsule (Flomax) 0.4 mg PO BEDTIME #90 caps 04/16/23 metoprolol tartrate 50 mg tablet 50 mg PO BID #180 tabs 06/08/23 gabapentin 400 mg capsule 400 mg PO TID #270 caps 06/11/23 walker #1 ea 06/15/23 lisinopril 10 mg tablet 10 mg PO DAILY 90 days #90 tabs 07/11/23 aspirin 81 mg tablet,delayed 81 mg PO DAILY #90 tabs 10/01/23 release paroxetine HCl 40 mg tablet 40 mg PO DAILY #90 tabs 10/01/23 cyanocobalamin (vitamin B-12) 1,000 mcg PO DAILY 90 days #90 tabs 10/03/23 1,000 mcg tablet hydroxyzine HCl 25 mg tablet 25 mg PO Q6H PRN anxiety 30 days 10/03/23 #120 tabs monthly medication organizer (med #1 ea 10/06/23 box) Semi-Electric Hospital Bed #1 ea 10/07/23 omeprazole 40 mg capsule,delayed 40 mg PO DAILY #30 caps 10/17/23 release blood-glucose meter,continuous #1 ea 10/21/23 (FreeStyle [place] 3 [place]) blood-glucose sensor (FreeStyle #2 ea 10/21/23 Iwona 3 Sensor device) cefuroxime axetil 250 mg tablet 250 mg PO BID 7 days #14 tabs 11/04/23 phenazopyridine 200 mg tablet 200 mg PO TID 2 days #6 tabs 11/04/23 (Pyridium) cholecalciferol (vitamin D3) 50 50 mcg PO DAILY #90 caps 11/19/23 mcg (2,000 unit) capsule (Vitamin D3) Active Mal guard pads 6 x 11 #208 ea 11/21/23 Cleansing wipes #100 ea 11/21/23 Disposable 30x30 polymer pads #90 ea 11/21/23 heavy floweds Powder free synthetic exam gloves #100 ea 11/21/23 ondansetron 4 mg disintegrating 4 mg PO Q8H PRN nausea and 11/21/23 tablet vomiting #20 tabs lidocaine 5 % topical patch 1 patch topical DAILY #30 ea 12/25/23 metaxalone 800 mg tablet 800 mg PO BEDTIME #10 tabs 12/25/23 naproxen 500 mg tablet 500 mg PO BID PRN pain #60 tabs 12/25/23 metformin 500 mg tablet,extended 1,500 mg (3 x 500 mg) PO DAILY 90 01/09/24 release 24 hr days #270 tabs glucose 4 gram chewable tablet 16 g (4 x 4 gram) PO Q15M #10 tabs 01/22/24 docusate sodium 100 mg capsule 100 mg PO BID PRN constipation 30 01/28/24 days #60 caps insulin lispro 100 unit/mL 15 - 20 unit (0.15 - 0.2 mL) 01/30/24 subcutaneous pen (Humalog KwikPen subcut .TIDAC #15 mL (U-100) Insulin) albuterol sulfate 90 mcg/actuation 2 puff PO Q4-6H PRN for wheezing 02/07/24 aerosol inhaler #8.5 grams Allergies Allergy/AdvReac Type Severity Reaction Status Date / Time hydromorphone [Dilaudid] AdvReac Unknown confusion Verified 02/18/24 13:40 From DILAUDID AdvReac Severe CONFUSION/H Uncoded 12/25/23 10:36 ALLUCIATION S From PERCOCET AdvReac Intermediate AGITATION Uncoded 12/25/23 10:36 Review of Systems Review of Systems: All other systems are reviewed and are negative Constitutional: Reports as per HPI and Reports no additional constitutional complaints Eyes: Reports as per HPI and Reports no additional eye complaints Reports system reviewed and no additional complaints, except as documented Cardiovascular: Reports as per HPI and Reports no additional cardiovascular complaints Respiratory: Reports as per HPI and Reports no additional respiratory complaints Gastrointestinal: Reports as per HPI and Reports no additional gastrointestinal complaints Genitourinary: Reports no additional female genitourinary complaints Musculoskeletal: Reports no additional musculoskeletal complaints Skin/Breast: Reports system reviewed and no additional complaints, except as docu Psychiatric: Reports no additional psychiatric complaints Endocrine: Reports no additional endocrine complaints Hematologic/Lymphatic: Reports no additional hematologic/lymphatic complaints Allergic/Immunologic: Reports no additional allergic/immunologic complaints Reports system reviewed and no additional complaints, except as documented and Reports Abnormal speech present [facility] Past Medical History Medical History Type 2 diabetes mellitus with neurologic complication Gastritis and duodenitis Vitamin B12 deficiency Hyperkalemia Intertrigo Major depressive disorder, recurrent Benign prostatic hyperplasia with urinary frequency Constipation Obstructive sleep apnea Vitamin D deficiency Diabetic polyneuropathy Diabetes mellitus Obesity (BMI 30-39.9) Benign essential hypertension Pure hypercholesterolemia Coronary artery disease Surgical History Hx of cataract extraction (~2011) History of quadruple bypass (~2005) Hx of cystoscopy History of prostate surgery (~12/04/10) Hx of cholecystectomy (~2007) Family History Family History Father Lung cancer Mother Diabetes Hypertension Stomach cancer Social History Social History Household Members: None Housing: Apartment Do you presently have visiting nurse or other home services: No Alcohol intake: never Patient Tobacco Use Status: Former Tobacco user e-Cigarette/Vaping Use: Never Used Second Hand Smoke Exposure: No Advance Directives: Yes Advance Directives on File: Yes Advance Directives Date on File: 07/24/23 service: No Current occupational status: disabled Cognitive needs: Yes (cane) Hearing needs: No Vision needs: Yes Physical Exam ED Vital Signs: Vital Signs - 24 hr 02/18/24 13:38 02/18/24 17:12 Temperature 98.2 F 98.8 F Pulse Rate 87 106 H Respiratory Rate 18 20 Blood Pressure 168/72 H 144/81 H Pulse Oximetry 97 97 Oxygen Delivery Method Room Air Room Air BMI result Body Mass Index 37.5 Vital signs have been reviewed and appear to be correct. Blood pressure elevated. Heart rate normal. Respiratory rate normal. Temperature normal. Oxygen saturation normal. Appearance: Alert. Oriented X3. No acute distress. Head: Normal external exam. Normocephalic. Atraumatic. No Araujo signs noted. No raccoon eyes noted Eyes: PERRLA. EOMI. Conjunctiva and sclera normal. Eyelids normal. ENT: TM's Normal. Pharynx normal. Uvula midline. Moist mucous membranes. No trismus noted. No drooling noted. No muffled voice noted. Neck: Normal inspection. Neck supple. FROM. No adenopathy. Thyroid Normal. No meningeal signs. No neck mass noted. CVS: Normal heart rate and rhythm. Heart sound normal. No murmurs noted. Pulses normal throughout. Respiratory: No respiratory distress. Painless inspiration. Breath sounds normal. No wheezes/rales/rhonchi noted. Chest nontender. No accessory muscle usage noted or decreased air movement noted. Abdomen: Soft and nontender. Bowel sounds normal in all 4 quadrants. No distention noted. No organomegaly noted. No visible injury noted. Back: No CVA tenderness. Full range of motion noted. Skin: Skin warm and dry. Normal skin color. Normal skin turgor. No rashes/lesions/lacerations noted. Extremities: No lower extremity edema. Extremities exhibit normal range of motion. Extremities nontender. Neuro: Oriented X 3. Cranial nerve exam: II-XII are grossly intact No motor deficit. No sensory deficit. Reflexes normal. Course Reevaluation(s) Reevaluation #1: Patient now is AAO x3, no acute distress, VSS, labs are unremarkable, able to tolerate p.o. intake in the emergency department, found to have diabetic hyperglycemia with no DKA was managed with IV fluids and IV insulin, patient currently has no complaints or symptoms, no chest pain. Time: 17:40 Medications Administered Discontinued Medications Generic Name Dose Route Start Last Admin Trade Name Freq PRN Reason Stop Dose Admin Insulin Human Regular 5 unit 02/18/24 15:44 02/18/24 16:12 Insulin Regular, Human 100 Unit/Ml 10 Ml Vial IVPUSH 02/18/24 15:45 5 unit ONCE ONE Administration Medical Decision Making Differential Diagnosis Differential Diagnoses: The differential diagnosis associated with the presentation includes (Electrolyte derangement, hyperglycemia, DKA, severe anemia, UTI, upper respiratory viral infection.) Admission/Observation Consideration of admission/observation: Escalation of care including admission/observation considered Lab Data MDM Lab Attestation statement: I reviewed the patient's lab results. 02/18/24 15:02 02/18/24 15:03 Labs: Lab Results 02/18/24 02/18/24 02/18/24 Range/Units 13:37 15:02 15:03 WBC 11.9 H (4.8-10.8) X10*3/uL RBC 4.38 L (4.60-5.80) X10*6/uL Hgb 13.2 L (14.0-18.0) g/dl Hct 37.8 L (42.0-52.0) % MCV 86.3 (80.0-98.0) fL MCH 30.1 (27.0-33.0) pg MCHC 34.9 (31.0-36.0) g/dl RDW 12.2 (11.0-16.0) % Plt Count 199 D (160-400) X10*3/uL MPV 12.2 (9.4-12.4) fL Immature Gran % (Auto) 0.3 (0.0-0.4) % Neut % (Auto) 78.9 H (45-73) % Lymph % (Auto) 14.2 L (20-40) % [place] % (Auto) 5.8 (2-11) % Eos % (Auto) 0.6 (0-4) % Baso % (Auto) 0.2 (0-2) % Lymph # (Auto) 1.7 (1.2-4.9) X10*3/uL [place] # (Auto) 0.7 (0.1-1.2) X10*3/uL Eos # (Auto) 0.1 (0.0-0.4) X10*3/uL Baso # (Auto) 0.0 (0.0-0.2) X10*3/uL Abs Immat Gran (auto) 0.04 H (0.00-0.03) X10*3/uL Absolute Neuts (auto) 9.4 H (2.0-8.3) x10*3/uL Absolute Nucleated RBC 0.000 (0.0-0.012) X10*3/uL Nucleated RBC % (auto) 0.0 (0.0-0.2) /100WBC Sodium 137 (135-145) mmol/L Potassium 4.3 (3.3-5.1) mmol/L Chloride 100 (96-108) mmol/L Carbon Dioxide 25 (22-29) mmol/L Anion Gap 16 (12-20) BUN 17 H (9-16) mg/dL Creatinine 1.21 (0.5-1.4) mg/dL Estim Creat Clear Calc 64.6 Estimated GFR 59 POC Glucose 418 H* (60-115) mg/dL Random Glucose 423 H* (60-115) mg/dL Calcium 9.5 (8.4-10.2) mg/dL Total Bilirubin 0.6 (0.0-1.0) mg/dL Direct Bilirubin 0.1 (0.0-0.5) mg/dL AST 22 (5-37) U/L ALT 13 (0-40) U/L Alkaline Phosphatase 120 H (39-117) U/L Troponin I High Sens 28.8 D (<3.5-35.0) ng/L Total Protein 7.4 (6.5-8.0) g/dL Albumin 3.9 (3.5-5.0) g/dL Lipase 11 (8-78) U/L Urine Color Urine Appearance Urine pH (5.0-9.0) Ur Specific [place] (1.005-1.025) Urine Protein (Neg-Trace) mg/dL Urine Glucose (UA) (Negative) mg/dL Urine Ketones (Negative) mg/dL Urine Blood (Negative) Urine Nitrite (Negative) Ur Leukocyte Esterase (Negative) Urine RBC (0-2) /HPF Urine WBC (0-5) /HPF Ur Squamous Epith Cells (0-2) /HPF Urine Bacteria (None Seen) Hyaline Casts (0-2) /LPF Influenza Type A (PCR) NEGATIVE (Negative) Influenza Type B (PCR) NEGATIVE (Negative) RSV RNA Qual (PCR) NEGATIVE (Negative) SARS-CoV-2 RNA (RT-PCR) NEGATIVE (Negative) 02/18/24 02/18/24 02/18/24 Range/Units 15:05 16:32 17:31 WBC (4.8-10.8) X10*3/uL RBC (4.60-5.80) X10*6/uL Hgb (14.0-18.0) g/dl Hct (42.0-52.0) % MCV (80.0-98.0) fL MCH (27.0-33.0) pg MCHC (31.0-36.0) g/dl RDW (11.0-16.0) % Plt Count (160-400) X10*3/uL MPV (9.4-12.4) fL Immature Gran % (Auto) (0.0-0.4) % Neut % (Auto) (45-73) % Lymph % (Auto) (20-40) % [place] % (Auto) (2-11) % Eos % (Auto) (0-4) % Baso % (Auto) (0-2) % Lymph # (Auto) (1.2-4.9) X10*3/uL [place] # (Auto) (0.1-1.2) X10*3/uL Eos # (Auto) (0.0-0.4) X10*3/uL Baso # (Auto) (0.0-0.2) X10*3/uL Abs Immat Gran (auto) (0.00-0.03) X10*3/uL Absolute Neuts (auto) (2.0-8.3) x10*3/uL Absolute Nucleated RBC (0.0-0.012) X10*3/uL Nucleated RBC % (auto) (0.0-0.2) /100WBC Sodium (135-145) mmol/L Potassium (3.3-5.1) mmol/L Chloride (96-108) mmol/L Carbon Dioxide (22-29) mmol/L Anion Gap (12-20) BUN (9-16) mg/dL Creatinine (0.5-1.4) mg/dL Estim Creat Clear Calc Estimated GFR POC Glucose 371 H* 319 H (60-115) mg/dL Random Glucose (60-115) mg/dL Calcium (8.4-10.2) mg/dL Total Bilirubin (0.0-1.0) mg/dL Direct Bilirubin (0.0-0.5) mg/dL AST (5-37) U/L ALT (0-40) U/L Alkaline Phosphatase (39-117) U/L Troponin I High Sens (<3.5-35.0) ng/L Total Protein (6.5-8.0) g/dL Albumin (3.5-5.0) g/dL Lipase (8-78) U/L Urine Color Yellow Urine Appearance Cloudy Urine pH 6.0 (5.0-9.0) Ur Specific [place] 1.025 (1.005-1.025) Urine Protein 100 (2+) H (Neg-Trace) mg/dL Urine Glucose (UA) >=1000 H (Negative) mg/dL Urine Ketones 15 (Negative) mg/dL Urine Blood Negative (Negative) Urine Nitrite Negative (Negative) Ur Leukocyte Esterase Negative (Negative) Urine RBC 0-2 (0-2) /HPF Urine WBC 0-5 (0-5) /HPF Ur Squamous Epith Cells 0-2 (0-2) /HPF Urine Bacteria None Seen (None Seen) Hyaline Casts 0-2 (0-2) /LPF Influenza Type A (PCR) (Negative) Influenza Type B (PCR) (Negative) RSV RNA Qual (PCR) (Negative) SARS-CoV-2 RNA (RT-PCR) (Negative) Chronic Conditions Patient?s care impacted by: Diabetes Discharge Plan Discharge Clinical Impression: Acute hyperglycemia Patient Disposition: Home, Self-Care Instructions: Diabetic Hyperglycemia (ED) Prescriptions: No Action fluticasone propionate 50 mcg/actuation spray,suspension 1 spray intranasal DAILY Qty: 16 2RF (DME) pen needle, diabetic [Lite Touch Insulin Pen [place]] 31 gauge x 5/16 needle See Rx Instructions .Route Qty: 100 12RF Rx Instructions: Use 3 times daily (DME) lancets [OneTouch Delica Lancets] 33 gauge misc See Rx Instructions .Route Qty: 100 12RF Rx Instructions: As directed 3 times a day metoclopramide HCl [Reglan] 10 mg tablet 10 mg PO AC PRN (Reason: nausea and vomiting) Qty: 20 0RF OneTouch Ultra Blue Test Strip Strip 1 strip miscellaneous TID Qty: 100 3RF (DME) blood-glucose meter [OneTouch Ultra2 Meter] Mis See Rx Instructions .ROUTE TID Qty: 1 Rx Instructions: test 3 times per day (DME) OneTouch Ultra Test Strip See Rx Instructions .Route Qty: 100 8RF Rx Instructions: test 3 times per day (DME) pen needle, diabetic [BD Ultra-Fine Orig Pen Needle] 29 gauge x 1/2 needle See Rx Instructions .Route Qty: 100 12RF Rx Instructions: 3 times daily (DME) pen needle, diabetic [BD Ultra-Fine Brittany Pen Needle] 32 gauge x 5/32 needle See Rx Instructions .Route Qty: 1200 4RF Rx Instructions: test 3 times daily (DME) WALKER See Rx Instructions .Route .MEDSUPPLY Qty: 1 0RF Rx Instructions: As directed metoprolol tartrate 50 mg tablet 50 mg PO BID Qty: 180 1RF lisinopril 10 mg tablet 10 mg PO DAILY 90 Days Qty: 90 1RF aspirin 81 mg tablet,delayed release (DR/EC) 81 mg PO DAILY Qty: 90 0RF paroxetine HCl 40 mg tablet 40 mg PO DAILY Qty: 90 0RF (DME) Monthly Medication Organizer (Med-Box) 0 .Route .MEDSUPPLY (DME) monthly medication organizer (med box) See Rx Instructions .Route .MEDSUPPLY Qty: 1 0RF Rx Instructions: monthly medication organizer box; (DME) Semi-Electric Hospital Bed See Rx Instructions .Route .MEDSUPPLY Qty: 1 0RF Rx Instructions: As directed omeprazole 40 mg capsule,delayed release(DR/EC) 40 mg PO DAILY Qty: 30 3RF cholecalciferol (vitamin D3) [Vitamin D3] 50 mcg (2,000 unit) capsule 50 mcg PO DAILY Qty: 90 3RF (DME) Disposable 30x30 polymer pads heavy floweds See Rx Instructions .Route .MEDSUPPLY Qty: 90 11RF Rx Instructions: As directed (DME) Active Mal guard pads 6 x 11 See Rx Instructions .Route .MEDSUPPLY Qty: 208 0RF Rx Instructions: As directed ([facility] [place]) Cleansing wipes See Rx Instructions .Route .MEDSUPPLY Qty: 100 11RF Rx Instructions: As directed ([facility]) Powder free synthetic exam gloves small See Rx Instructions .Route .MEDSUPPLY Qty: 100 11RF Rx Instructions: As directed glucose 4 gram tablet,chewable 16 g PO Q15M Qty: 10 5RF Rx Instructions: Chew 4 tablets as needed for low blood sugar (less than 70 mg/dL) every 15 minutes until symptoms improve docusate sodium 100 mg capsule 100 mg PO BID PRN (Reason: constipation) 30 Days Qty: 60 3RF insulin lispro [Humalog KwikPen Insulin] 100 unit/mL insulin pen 15 - 20 unit subcut .TIDAC Qty: 15 3RF albuterol sulfate 90 mcg/actuation HFA aerosol inhaler 2 puff PO Q4-6H PRN (Reason: for wheezing) Qty: 8.5 2RF dicyclomine 20 mg tablet 20 mg PO QID PRN (Reason: abdominal pain) Qty: 20 0RF ondansetron HCl 4 mg tablet 4 mg PO Q6H PRN (Reason: nausea and vomiting) Qty: 14 0RF polyethylene glycol 3350 [Miralax] 17 gram/dose powder 17 g PO DAILY PRN (Reason: Constipation) atorvastatin 80 mg tablet 80 mg PO DAILY cefuroxime axetil 250 mg tablet 250 mg PO BID 7 Days Qty: 14 0RF phenazopyridine [Pyridium] 200 mg tablet 200 mg PO TID 2 Days Qty: 6 0RF ondansetron 4 mg tablet,disintegrating 4 mg PO Q8H PRN (Reason: nausea and vomiting) Qty: 20 0RF (DME) SHOWER CHAIR See Rx Instructions .Route .MEDSUPPLY Qty: 1 0RF Rx Instructions: As directed (DME) SHOWER CHAIR See Rx Instructions .Route .MEDSUPPLY Qty: 1 0RF Rx Instructions: As directed (DME) insulin syr/ndl U100 half gareth 0.5 mL 30 gauge x 5/16 syringe See Rx Instructions .Route Qty: 100 12RF Rx Instructions: Use 4 times daily gabapentin 400 mg capsule 400 mg PO TID Qty: 270 1RF (DME) [facility] [place] See Rx Instructions .Route Qty: 1 0RF Rx Instructions: As directed hydroxyzine HCl 25 mg tablet 25 mg PO Q6H PRN (Reason: anxiety) 30 Days Qty: 120 3RF cyanocobalamin (vitamin B-12) 1,000 mcg tablet 1,000 mcg PO DAILY 90 Days Qty: 90 3RF metformin 500 mg tablet extended release 24 hr 1,500 mg PO DAILY 90 Days Qty: 270 0RF oxybutynin chloride 10 mg tablet extended release 24hr 10 mg PO DAILY Qty: 90 1RF tamsulosin [Flomax] 0.4 mg capsule 0.4 mg PO BEDTIME Qty: 90 2RF (DME) FreeStyle [place] 3 Sensor Device See Rx Instructions .ROUTE .MEDSUPPLY Qty: 2 11RF Rx Instructions: As directed (DME) FreeStyle [place] 3 [place] Misc See Rx Instructions .ROUTE .MEDSUPPLY Qty: 1 0RF Rx Instructions: as directed naproxen 500 mg tablet 500 mg PO BID PRN (Reason: pain) Qty: 60 0RF lidocaine 5 % adhesive patch,medicated 1 patch topical DAILY Qty: 30 0RF Rx Instructions: leave on most painful area for up to 12 hrs metaxalone 800 mg tablet 800 mg PO BEDTIME Qty: 10 0RF insulin glargine [Lantus Solostar U-100 Insulin] 100 unit/mL (3 mL) insulin pen See Rx Instructions subcut QAM Rx Instructions: subcutaneously 60 units every morning and 56 units every evening Referrals: Jerry Persaud MD [Primary Care Provider] - Print Language: Com[place]an
[2024-02-18 15:15] LABS: MANUAL DIFF FLAG NO
[2024-02-18 15:17] LABS: Appearance Urine Cloudy; Color Urine Yellow; Glucose Urine UA >=1000 mg/dL (Negative); Leukocyte Esterase Urine Negative (Negative); Nitrite Urine Negative (Negative); Specific Gravity - Urine 1.025 (1.005-1.025); UMIC TRIGGER UACC YES; Urine Blood Negative (Negative); Urine Ketones 15 mg/dL (Negative); Urine Protein 100 (2+) mg/dL (Neg-Trace)
[2024-02-18 15:19] LABS: Basophils Percent Auto 0.2 % (0-2); Eosinophils Absolute Auto 0.1 X10*3/uL (0.0-0.4); Eosinophils Percent Auto 0.6 % (0-4); Hematocrit 37.8 % (42.0-52.0); Hemoglobin 13.2 g/dl (14.0-18.0); Imm Gran Abs Auto 0.04 X10*3/uL (0.00-0.03); Imm Gran Pct Auto 0.3 % (0.0-0.4); Lymphocytes Absolute Auto 1.7 X10*3/uL (1.2-4.9); Lymphocytes Percent Auto 14.2 % (20-40); Mean Corpuscular HGB Conc 34.9 g/dl (31.0-36.0); Mean Corpuscular Hemoglobin 30.1 pg (27.0-33.0); Mean Corpuscular Volume 86.3 fL (80.0-98.0); Mean Platelet Volume 12.2 fL (9.4-12.4); Monocytes Absolute Auto 0.7 X10*3/uL (0.1-1.2); Monocytes Percent Auto 5.8 % (2-11); Neutrophils Absolute Auto 9.4 x10*3/uL (2.0-8.3); Neutrophils Percent Auto 78.9 % (45-73); Platelet Count 199 X10*3/uL (160-400); Red Blood Count 4.38 X10*6/uL (4.60-5.80); Red Cell Distribution Width 12.2 % (11.0-16.0); White Blood Count 11.9 X10*3/uL (4.8-10.8)
[2024-02-18 15:19] LABS: Bacteria Urine None Seen (None Seen); Hyaline Casts Urine 0-2 /LPF (0-2); RBC Urine 0-2 /HPF (0-2); Squamous Epithelial Cell Urine 0-2 /HPF (0-2); WBC Urine 0-5 /HPF (0-5)
[2024-02-18 15:36] LABS: Troponin-I High Sensitivity 28.8 ng/L (<3.5-35.0)
[2024-02-18 15:43] LABS: Albumin Level 3.9 g/dL (3.5-5.0); Anion Gap 16 (12-20); Aspartate Amino Transferase 22 U/L (5-37); Bilirubin Direct 0.1 mg/dL (0.0-0.5); Bilirubin Total 0.6 mg/dL (0.0-1.0); Blood Urea Nitrogen 17 mg/dL (9-16); Calcium 9.5 mg/dL (8.4-10.2); Carbon Dioxide 25 mmol/L (22-29); Chloride 100 mmol/L (96-108); Creatinine Clr Calc Pharmacy 64.6; Estimated Glomerular Filt Rate 59; Glucose Random 423 mg/dL (60-115); Lipase 11 U/L (8-78); Potassium 4.3 mmol/L (3.3-5.1); Sodium 137 mmol/L (135-145); Total Protein 7.4 g/dL (6.5-8.0)
[2024-02-18 15:52] LABS: Influenza A PCR NEGATIVE (Negative); Influenza B PCR NEGATIVE (Negative); Resp Syncy Virus RNA Qual PCR NEGATIVE (Negative); SARS COV2 PCR INHOUSE NEGATIVE (Negative)
[2024-02-18] MEDS: Insulin Regular, Human 100 UNIT/ML 10 ML VIAL IVPUSH (16:12)
[2024-02-18 16:39] LABS: Glucose, Whole Blood 371 mg/dL (60-115)
[2024-02-18 17:02] LABS: Alanine Aminotransferase 13 U/L (0-40); Alkaline Phosphatase 120 U/L (39-117)
[2024-02-18 17:12] VITALS: BP 144/81; PULSE 106; RESP 20; TEMP 37.1; O2SAT 97
[2024-02-18 17:35] LABS: Glucose, Whole Blood 319 mg/dL (60-115)
--- NOTE | 2024-02-18 18:05 | PC.NURSE ---
called son Manuel and left a message asking him to come and lease picker the pt
[2024-02-18 19:07] VITALS: BP 144/81; PULSE 106; RESP 20; TEMP 37.1; O2SAT 97
== END 2024-02-18 19:07 | disposition home or self-care (01) ==
PROVIDERS: Emergency Provider Emergency Medicine; PCP Internal Medicine
DX: E11.65 Type 2 diabetes mellitus with hyperglycemia (principal); R53.1 Weakness; Z03.818 Encounter for observation for suspected exposure to other biological agents ruled out; I10 Essential (primary) hypertension; E78.00 Pure hypercholesterolemia, unspecified; F03.90 Unspecified dementia, unspecified severity, without behavioral disturbance, psychotic disturbance, mood disturbance, and anxiety; J45.909 Unspecified asthma, uncomplicated; Z79.4 Long term (current) use of insulin; Z79.02 Long term (current) use of antithrombotics/antiplatelets; Z79.899 Other long term (current) drug therapy; Z79.82 Long term (current) use of aspirin; Z79.84 Long term (current) use of oral hypoglycemic drugs; Z87.891 Personal history of nicotine dependence
CPT/HCPCS: 0241U; 36415; 80048; 80076; 81001; 82947; 83690; 84484; 85025; 93005; 96374; 99284

== ENCOUNTER → 2024-02-18 13:44 | Outpatient (BNV) | payer OTHER, SELFPAY | PROVIDERS: Emergency Provider Emergency Medicine; PCP Internal Medicine; Visit Provider Internal Medicine Cardiovascular Disease | DX: R10.9 Unspecified abdominal pain (principal); R94.31 Abnormal electrocardiogram [ECG] [EKG] | CPT/HCPCS: 93010 ==

== ENCOUNTER 2024-02-21 11:08 | Emergency (ER) | payer OTHER, SELFPAY ==
--- NOTE | ~2024-02-21 | CT_ITS ---
EXAMINATION: CT HEAD WITHOUT CONTRAST CLINICAL INFORMATION: Falls, nausea, vomiting COMPARISON: CT head 05/09/2023 TECHNIQUE: Contiguous axial imaging was performed from the skull base to vertex without intravenous administration of contrast. This CT examination was performed using dose optimization techniques as appropriate, variously including the following: *Automated exposure control *Adjustment of mA and/or kV according to patient size (this includes techniques or standardized protocols for targeted exams where dose is matched to indication/reason for exam; i.e. extremities or head) *Use of iterative reconstruction technique DLP: 797 mGy-cm FINDINGS: There is no evidence of acute intracranial hemorrhage or edematous large vessel territorial infarction. No abnormal mass effect or midline shift is seen. [place] to white matter differentiation is well preserved. No abnormal extra-axial fluid collections are identified. Commensurate prominence of the ventricles and sulci is compatible with generalized parenchymal volume loss. There is moderate periventricular and subcortical white matter hypoattenuation, most likely representing microangiopathic disease No acute calvarial fracture.. Paranasal sinuses and mastoid air cells are well-aerated. CT/CT head/brain wo IV con IMPRESSION: No CT evidence of acute intracranial hemorrhage or edematous territorial infarction.. Chronic findings as detailed above. Electronically signed by: Rashaad Rick MD 02/21/2024 03:05 PM [facility]UR[facility]
--- NOTE | ~2024-02-21 | XR_ITS ---
EXAMINATION: XR CHEST CLINICAL INFORMATION: cough COMPARISON: Prior chest 12/09/2023 TECHNIQUE: Frontal view of the chest was obtained. FINDINGS: Low lung volumes. Otherwise clear. Sternotomy wires in place intact. Cardiomediastinal silhouette normal. Bone and soft tissues unremarkable. XR/XR chest 1V IMPRESSION: 1. Low lung volumes. 2. No acute disease. Electronically signed by: Kervin Acosta MD 02/21/2024 02:43 PM [facility]
[2024-02-21 11:26] VITALS: BP 164/68; PULSE 88; RESP 20; TEMP 37; O2SAT 98; BMI 37.4
--- NOTE | 2024-02-21 11:29 | ED_ITS ---
HPI - General Adult General Chief complaint: Nausea/Vomiting/Diarrhea Stated complaint: pain Time Seen by Provider: 02/21/24 12:17 Source: patient, EMS, old records reviewed and translator and interpreter Mode of arrival: EMS Limitations: other (very poor historian) History of Present Illness ED Provider: KAREN HPI narrative: 68 yo male with PMH of CAD obesity, JAIME, HTN, HLD, BPH, DM, COPD, cognitive impairment, frequent falls here with many complaints including his mouth is very dry, then states he tries to swallow and it comes right back up which has been 1 week. He denies abdominal pain, diarrhea, sick contacts. No new SOB from his COPD. He denies any GI bleeding. He then admits he fell but no injury and no headstrike. He denies FB but then initially stated he couldn't swallow and now states he feels like when he does it gets stuck. He states he is very anxious. He was very hard to follow as his story keeps changing MD complaint: unclear if n/v or just dry mouth Onset (ago): week(s) (1) Location: mouth Radiation: non-radiation Severity: moderate Quality: other (dry) Relieving factors: none Exacerbating factors: eating Associated symptoms: loss of appetite, malaise and other (falls) Treatments prior to arrival: none Related Data Home Medications ?Medication ?Instructions ?Recorded ?Confirmed polyethylene glycol 3350 17 17 g PO DAILY PRN Constipation 10/09/22 10/03/23 gram/dose oral powder (Miralax) blood-glucose meter (OneTouch #1 ea 11/27/22 10/03/23 Ultra2 Meter) atorvastatin 80 mg tablet 80 mg PO DAILY 05/11/23 10/03/23 Monthly Medication Organizer 10/03/23 (Med-Box) insulin glargine 100 unit/mL (3 See Rx Instructions subcut QAM 12/23/23 12/23/23 mL) subcutaneous pen (Lantus Solostar U-100 Insulin) Previous Rx's ?Medication ?Instructions ?Recorded SHOWER CHAIR #1 ea 10/05/20 SHOWER CHAIR #1 ea 01/10/21 fluticasone propionate 50 1 spray intranasal DAILY #16 grams 03/16/21 mcg/actuation nasal spray,suspension insulin syr/ndl U100 half gareth 0.5 #100 ea 05/14/21 mL 30 gauge x 5/16 pen needle, diabetic 31 gauge x #100 ea 03/12/22 5/16 (Lite Touch Insulin Pen Evergreen) lancets 33 gauge [facility] ea 03/13/22 Lancets) dicyclomine 20 mg tablet 20 mg PO QID PRN abdominal pain 07/05/22 #20 tabs ondansetron HCl 4 mg tablet 4 mg PO Q6H PRN nausea and 07/06/22 vomiting #14 tabs metoclopramide HCl 10 mg tablet 10 mg PO AC PRN nausea and 11/12/22 (Reglan) vomiting #20 tabs blood sugar diagnostic 1 strip miscellaneous TID #100 11/27/22 strips blood sugar diagnostic (OneTouch #100 ea 01/13/23 Ultra Test strips) pen needle, diabetic 29 gauge x #100 ea 04/02/2303/11 (BD Ultra-Fine Original Pen Needle) pen needle, diabetic 32 gauge x #1,200 ea 04/02/23 (BD Ultra-Fine Brittany Pen Needle) WALKER #1 ea 04/09/23 oxybutynin chloride 10 mg 10 mg PO DAILY #90 tabs 04/16/23 tablet,extended release 24 hr tamsulosin 0.4 mg capsule (Flomax) 0.4 mg PO BEDTIME #90 caps 04/16/23 metoprolol tartrate 50 mg tablet 50 mg PO BID #180 tabs 06/08/23 gabapentin 400 mg capsule 400 mg PO TID #270 caps 06/11/23 walker #1 ea 06/15/23 lisinopril 10 mg tablet 10 mg PO DAILY 90 days #90 tabs 07/11/23 aspirin 81 mg tablet,delayed 81 mg PO DAILY #90 tabs 10/01/23 release paroxetine HCl 40 mg tablet 40 mg PO DAILY #90 tabs 10/01/23 cyanocobalamin (vitamin B-12) 1,000 mcg PO DAILY 90 days #90 tabs 10/03/23 1,000 mcg tablet hydroxyzine HCl 25 mg tablet 25 mg PO Q6H PRN anxiety 30 days 10/03/23 #120 tabs monthly medication organizer (med #1 ea 10/06/23 box) Semi-Electric Hospital Bed #1 ea 10/07/23 blood-glucose meter,continuous #1 ea 10/21/23 (FreeStyle Iwona 3 Porter) blood-glucose sensor (FreeStyle #2 ea 10/21/23 Iwona 3 Sensor device) cefuroxime axetil 250 mg tablet 250 mg PO BID 7 days #14 tabs 11/04/23 phenazopyridine 200 mg tablet 200 mg PO TID 2 days #6 tabs 11/04/23 (Pyridium) cholecalciferol (vitamin D3) 50 50 mcg PO DAILY #90 caps 11/19/23 mcg (2,000 unit) capsule (Vitamin D3) Active Mal guard pads 6 x 11 #208 ea 11/21/23 Cleansing wipes #100 ea 11/21/23 Disposable 30x30 polymer pads #90 ea 11/21/23 heavy floweds Powder free synthetic exam gloves #100 ea 11/21/23 ondansetron 4 mg disintegrating 4 mg PO Q8H PRN nausea and 11/21/23 tablet vomiting #20 tabs lidocaine 5 % topical patch 1 patch topical DAILY #30 ea 12/25/23 metaxalone 800 mg tablet 800 mg PO BEDTIME #10 tabs 12/25/23 naproxen 500 mg tablet 500 mg PO BID PRN pain #60 tabs 12/25/23 metformin 500 mg tablet,extended 1,500 mg (3 x 500 mg) PO DAILY 90 01/09/24 release 24 hr days #270 tabs glucose 4 gram chewable tablet 16 g (4 x 4 gram) PO Q15M #10 tabs 01/22/24 docusate sodium 100 mg capsule 100 mg PO BID PRN constipation 30 01/28/24 days #60 caps insulin lispro 100 unit/mL 15 - 20 unit (0.15 - 0.2 mL) 01/30/24 subcutaneous pen (Humalog KwikPen subcut .TIDAC #15 mL (U-100) Insulin) albuterol sulfate 90 mcg/actuation 2 puff PO Q4-6H PRN for wheezing 02/07/24 aerosol inhaler #8.5 grams omeprazole 40 mg capsule,delayed 40 mg PO DAILY #30 caps 02/20/24 release cefuroxime axetil 250 mg tablet 250 mg PO BID 6 days #12 tabs 02/21/24 Allergies Allergy/AdvReac Type Severity Reaction Status Date / Time hydromorphone [Dilaudid] AdvReac Unknown confusion Verified 02/21/24 11:29 From DILAUDID AdvReac Severe CONFUSION/H Uncoded 02/21/24 11:29 ALLUCIATION S From PERCOCET AdvReac Intermediate AGITATION Uncoded 02/21/24 11:29 Review of Systems 2 Review of Systems: Constitutional : No Fever, No Chills ENT/Mouth : No sore throat, No Rhinorrhea, pos dry mouth Eyes: No Swelling, No Redness Cardiovascular : No Chest Pain, No SOB, NoEdema Respiratory : No Cough, No Sputum, No Wheezing Gastrointestinal : Positive Nausea, Positive Vomiting, no Diarrhea, no abdominal Pain, No Hematochezia, No Melena Genitourinary : No Dysuria, No Urinary Frequency, No Hematuria, No Urgency Musculoskeletal : No joint pain, No Myalgias, No Joint Swelling Skin : No Skin Lesions, No rash Neuro : pos Weakness, No Numbness, No Dizziness, No Headache Psych : pos Anxiety/Panic, No Depression All other systems reviewed and are negative. [facility] Past Medical History Attestation statement: The following information was validated with the patient. Source: old records reviewed Medical History Type 2 diabetes mellitus with neurologic complication Gastritis and duodenitis Vitamin B12 deficiency Hyperkalemia Intertrigo Major depressive disorder, recurrent Benign prostatic hyperplasia with urinary frequency Constipation Obstructive sleep apnea Vitamin D deficiency Diabetic polyneuropathy Diabetes mellitus Obesity (BMI 30-39.9) Benign essential hypertension Pure hypercholesterolemia Coronary artery disease Surgical History Hx of cataract extraction (~2011) History of quadruple bypass (~2005) Hx of cystoscopy History of prostate surgery (~12/04/10) Hx of cholecystectomy (~2007) Family History Family History Father Lung cancer Mother Diabetes Hypertension Stomach cancer Social History Social History Household Members: None Housing: Apartment Do you presently have visiting nurse or other home services: No Alcohol intake: never Patient Tobacco Use Status: Former Tobacco user Smoked in Last 30 Days: No e-Cigarette/Vaping Use: Never Used Second Hand Smoke Exposure: No Use of substances other than those prescribed or required for medical reasons: No Advance Directives: Yes Advance Directives on File: Yes Advance Directives Date on File: 07/24/23 service: No Current occupational status: disabled Cognitive needs: Yes (cane) Hearing needs: No Vision needs: Yes Physical Exam ED Vital Signs: Vital Signs - 24 hr 02/21/24 11:26 02/21/24 14:13 Temperature 98.6 F 97.9 F Pulse Rate 88 94 Respiratory Rate 20 18 Blood Pressure 164/68 H 156/70 H Pulse Oximetry 98 98 Oxygen Delivery Method Room Air Room Air BMI result Body Mass Index 37.4 Appearance: Alert. Oriented X3 he is oriented but then his story changes about his complaints. No acute distress. Eyes: Pupils equal, round and reactive to light. ENT: Pharynx dry MM. on exam he is able to swallow water a few times without any vomiting or difficulty swallowing - no choking or gagging. atraumatic Neck: Normal inspection. Neck supple. CVS: Normal heart rate and rhythm. Pulses normal. Respiratory: No respiratory distress. Breath sounds normal. Abdomen: Soft and nontender. Skin: Skin warm and dry. pale skin color. Normal skin turgor. Extremities: No lower extremity edema. Neuro: Oriented X 3. No motor deficit. No sensory deficit. Course Course Course Narrative: This is an RME: Additional HPI, ROS, PE not included below will be deferred to primary provider. RME assessment and note performed by: Dulce Cortes PA-C This is a [id number]-male, with a hx of depression, COPD, who presents to the ER with complaints of nausea, vomiting x 1 week. No diarrhea. Reports that he has been unable to tolerate anything by mouth due to nausea and vomiting. He reports no abdominal pain or chest pain. Plan: Labs, EKG, UA, further ER eval needed Medications Administered Discontinued Medications Generic Name Dose Route Start Last Admin Trade Name Freq PRN Reason Stop Dose Admin Sodium Chloride 1,000 mls @ 999 mls/hr 02/21/24 12:58 02/21/24 13:12 Ns IV 02/21/24 13:58 999 mls/hr .Q1H1M ONE Administration Magnesium Sulfate 2 gm in 50 mls @ 25 mls/hr 02/21/24 13:52 02/21/24 14:29 Magnesium Sulfate/H2o IV 02/21/24 15:51 25 mls/hr ONCE ONE Administration Insulin Human Regular 5 unit 02/21/24 12:58 02/21/24 13:22 Insulin Regular, Human 100 Unit/Ml 10 Ml Vial IVPUSH 02/21/24 12:59 5 unit ONCE ONE Administration Lorazepam 0.5 mg 02/21/24 12:58 02/21/24 13:17 Lorazepam 2 Mg/Ml Vial IVPUSH 02/21/24 12:59 0.5 mg STAT STA Administration Medical Decision Making Medical Decision Making MDM Narrative: 68 yo male with PMH of CAD obesity, JAIME, HTN, HLD, BPH, DM, COPD, cognitive impairment, frequent falls here with c/o dry mouth then n/v but then denies it, no diarrhea no abdominal pain, fell but denies trauma - at this time his complaint changes frequently he has no abdominal pain on exam - I am going to order CT head for fall, labs UA, he is drinking on arrival and has no swallowing difficulties and no vomiting. It is odd he is not eating but his BS is high - will dose with insulin. Differential Diagnosis Differential Diagnoses: The differential diagnosis associated with the presentation includes n/v, dry mouth, anxiety, dehydration no abdominal pain to suggest pathology Admission/Observation Consideration of admission/observation: Escalation of care including admission/observation considered labs at baseline, mild bump in Cr but not SLY + UA started on ceftriaxone will dose with ceftin he is eating sandwhiches and drinking fluids here with no issue he states he wants to go home I am unclear family was here and told us to take his keys away but we will call for a ride home for him Lab Data [facility] Lab Attestation statement: I reviewed the patient's lab results. 02/21/24 11:52 02/21/24 11:52 Labs: Lab Results 02/21/24 02/21/24 02/21/24 Range/Units 11:52 14:14 14:28 WBC 8.8 (4.8-10.8) X10*3/uL RBC 3.92 L (4.60-5.80) X10*6/uL Hgb 12.1 L (14.0-18.0) g/dl Hct 34.0 L (42.0-52.0) % MCV 86.7 (80.0-98.0) fL MCH 30.9 (27.0-33.0) pg MCHC 35.6 (31.0-36.0) g/dl RDW 12.3 (11.0-16.0) % Plt Count 179 (160-400) X10*3/uL MPV 12.5 H (9.4-12.4) fL Immature Gran % (Auto) 0.6 H (0.0-0.4) % Neut % (Auto) 73.4 H (45-73) % Lymph % (Auto) 18.6 L (20-40) % [place] % (Auto) 5.8 (2-11) % Eos % (Auto) 1.4 (0-4) % Baso % (Auto) 0.2 (0-2) % Lymph # (Auto) 1.6 (1.2-4.9) X10*3/uL [place] # (Auto) 0.5 (0.1-1.2) X10*3/uL Eos # (Auto) 0.1 (0.0-0.4) X10*3/uL Baso # (Auto) 0.0 (0.0-0.2) X10*3/uL Abs Immat Gran (auto) 0.05 H (0.00-0.03) X10*3/uL Absolute Neuts (auto) 6.5 (2.0-8.3) x10*3/uL Absolute Nucleated RBC 0.000 (0.0-0.012) X10*3/uL Nucleated RBC % (auto) 0.0 (0.0-0.2) /100WBC Sodium 134 L (135-145) mmol/L Potassium 4.1 (3.3-5.1) mmol/L Chloride 99 (96-108) mmol/L Carbon Dioxide 26 (22-29) mmol/L Anion Gap 13 (12-20) BUN 24 H (9-16) mg/dL Creatinine 1.63 H (0.5-1.4) mg/dL Estim Creat Clear Calc 46.3 Estimated GFR 42 POC Glucose 336 H (60-115) mg/dL Random Glucose 540 H* (60-115) mg/dL Calcium 9.6 (8.4-10.2) mg/dL Magnesium 1.5 L (1.6-2.6) mg/dL Total Bilirubin 0.4 (0.0-1.0) mg/dL Direct Bilirubin 0.1 (0.0-0.5) mg/dL AST 24 (5-37) U/L ALT 18 (0-40) U/L Alkaline Phosphatase 138 H (39-117) U/L Troponin I High Sens 15.4 (<3.5-35.0) ng/L Total Protein 7.1 (6.5-8.0) g/dL Albumin 3.9 (3.5-5.0) g/dL Lipase 9 (8-78) U/L Urine Color Yellow Urine Appearance Clear Urine pH 5.5 (5.0-9.0) Ur Specific [place] 1.025 (1.005-1.025) Urine Protein 30 (1+) H (Neg-Trace) mg/dL Urine Glucose (UA) >=1000 H (Negative) mg/dL Urine Ketones Negative (Negative) mg/dL Urine Blood Negative (Negative) Urine Nitrite Positive H (Negative) Ur Leukocyte Esterase Negative (Negative) Urine RBC 0-2 (0-2) /HPF Urine WBC 6-10 H (0-5) /HPF Ur Squamous Epith Cells 0-2 (0-2) /HPF Urine Bacteria 4+ (None Seen) Hyaline Casts 0-2 (0-2) /LPF Ethyl Alcohol < 10 mg/dL Influenza Type A (PCR) NEGATIVE (Negative) Influenza Type B (PCR) NEGATIVE (Negative) RSV RNA Qual (PCR) NEGATIVE (Negative) SARS-CoV-2 RNA (RT-PCR) NEGATIVE (Negative) Independent Interpretation I performed an independent interpretation of an: EKG, Plain X-Ray (normal) and CT Scan (no ICH) Interpretation: Rate: 81 Rhythm: NSR with 1st degree AVB [place]: left, LVH Normal P waves. Normal JOHN. Normal QRS complex. ST T wave : no BERNARDA, nonspecific ST T wave changes I and aVL consistent with LVH qTC: 464 prior studies: no acute ischemia The study has been interpreted contemporaneously by me. . Radiology Impression Discussion of test interpretation with radiology: I have reviewed the radiologist's reading. External Record Review External record reviewed: Inpatient record and Outpatient record Prescription Management I considered prescription management with: Antibiotic Discharge Plan Discharge Clinical Impression: Acute dehydration, Hypomagnesemia, Acute UTI Patient Disposition: Home, Self-Care Instructions: Dehydration (ED), Urinary Tract Infection in Men (ED), Hypomagnesemia (ED) Additional Instructions: your magnesium was low we replaced it you were mildly dehydrated we gave you IV fluids in the ED you were given a dose of antibiotics in the ED REPEAT YOUR LABS ON FRIDAY WITH YOUR DOCTOR NEXT DOSE OF ANTIBIOTIC IS IN THE MORNING On a cephalosporin?antibiotic, softer bowel movements are to be expected. Call your provider if you move your bowels more than 4 times a day, your bowel movements are almost all liquid, or you get a rash.?? Prescriptions: New cefuroxime axetil 250 mg tablet 250 mg PO BID 6 Days Qty: 12 0RF No Action fluticasone propionate 50 mcg/actuation spray,suspension 1 spray intranasal DAILY Qty: 16 2RF (DME) pen needle, diabetic [Lite Touch Insulin Pen Evergreen] 31 gauge x 5/16 needle See Rx Instructions .Route Qty: 100 12RF Rx Instructions: Use 3 times daily (DME) lancets [OneTouch Delica Lancets] 33 gauge misc See Rx Instructions .Route Qty: 100 12RF Rx Instructions: As directed 3 times a day metoclopramide HCl [Reglan] 10 mg tablet 10 mg PO AC PRN (Reason: nausea and vomiting) Qty: 20 0RF OneTouch Ultra Blue Test Strip Strip 1 strip miscellaneous TID Qty: 100 3RF (DME) blood-glucose meter [OneTouch Ultra2 Meter] [facility] See Rx Instructions .ROUTE TID Qty: 1 Rx Instructions: test 3 times per day (DME) OneTouch Ultra Test Strip See Rx Instructions .Route Qty: 100 8RF Rx Instructions: test 3 times per day (DME) pen needle, diabetic [BD Ultra-Fine Orig Pen Needle] 29 gauge x 1/2 needle See Rx Instructions .Route Qty: 100 12RF Rx Instructions: 3 times daily (DME) pen needle, diabetic [BD Ultra-Fine Brittany Pen Needle] 32 gauge x 5/32 needle See Rx Instructions .Route Qty: 1200 4RF Rx Instructions: test 3 times daily (DME) WALKER See Rx Instructions .Route .MEDSUPPLY Qty: 1 0RF Rx Instructions: As directed metoprolol tartrate 50 mg tablet 50 mg PO BID Qty: 180 1RF lisinopril 10 mg tablet 10 mg PO DAILY 90 Days Qty: 90 1RF aspirin 81 mg tablet,delayed release (DR/EC) 81 mg PO DAILY Qty: 90 0RF paroxetine HCl 40 mg tablet 40 mg PO DAILY Qty: 90 0RF (DME) Monthly Medication Organizer (Med-Box) 0 .Route .MEDSUPPLY (DME) monthly medication organizer (med box) See Rx Instructions .Route .MEDSUPPLY Qty: 1 0RF Rx Instructions: monthly medication organizer box; (DME) Semi-Electric Hospital Bed See Rx Instructions .Route .MEDSUPPLY Qty: 1 0RF Rx Instructions: As directed cholecalciferol (vitamin D3) [Vitamin D3] 50 mcg (2,000 unit) capsule 50 mcg PO DAILY Qty: 90 3RF (DME) Disposable 30x30 polymer pads heavy floweds See Rx Instructions .Route .MEDSUPPLY Qty: 90 11RF Rx Instructions: As directed (DME) Active Mal guard pads 6 x 11 See Rx Instructions .Route .MEDSUPPLY Qty: 208 0RF Rx Instructions: As directed (DME) Cleansing wipes See Rx Instructions .Route .MEDSUPPLY Qty: 100 11RF Rx Instructions: As directed (DME) Powder free synthetic exam gloves small See Rx Instructions .Route .MEDSUPPLY Qty: 100 11RF Rx Instructions: As directed glucose 4 gram tablet,chewable 16 g PO Q15M Qty: 10 5RF Rx Instructions: Chew 4 tablets as needed for low blood sugar (less than 70 mg/dL) every 15 minutes until symptoms improve docusate sodium 100 mg capsule 100 mg PO BID PRN (Reason: constipation) 30 Days Qty: 60 3RF insulin lispro [Humalog KwikPen Insulin] 100 unit/mL insulin pen 15 - 20 unit subcut .TIDAC Qty: 15 3RF albuterol sulfate 90 mcg/actuation HFA aerosol inhaler 2 puff PO Q4-6H PRN (Reason: for wheezing) Qty: 8.5 2RF omeprazole 40 mg capsule,delayed release(DR/EC) 40 mg PO DAILY Qty: 30 3RF dicyclomine 20 mg tablet 20 mg PO QID PRN (Reason: abdominal pain) Qty: 20 0RF ondansetron HCl 4 mg tablet 4 mg PO Q6H PRN (Reason: nausea and vomiting) Qty: 14 0RF polyethylene glycol 3350 [Miralax] 17 gram/dose powder 17 g PO DAILY PRN (Reason: Constipation) atorvastatin 80 mg tablet 80 mg PO DAILY cefuroxime axetil 250 mg tablet 250 mg PO BID 7 Days Qty: 14 0RF phenazopyridine [Pyridium] 200 mg tablet 200 mg PO TID 2 Days Qty: 6 0RF ondansetron 4 mg tablet,disintegrating 4 mg PO Q8H PRN (Reason: nausea and vomiting) Qty: 20 0RF (DME) SHOWER CHAIR See Rx Instructions .Route .MEDSUPPLY Qty: 1 0RF Rx Instructions: As directed (DME) SHOWER CHAIR See Rx Instructions .Route .MEDSUPPLY Qty: 1 0RF Rx Instructions: As directed (DME) insulin syr/ndl U100 half gareth 0.5 mL 30 gauge x 5/16 syringe See Rx Instructions .Route Qty: 100 12RF Rx Instructions: Use 4 times daily gabapentin 400 mg capsule 400 mg PO TID Qty: 270 1RF (DME) kashif [facility] See Rx Instructions .Route Qty: 1 0RF Rx Instructions: As directed hydroxyzine HCl 25 mg tablet 25 mg PO Q6H PRN (Reason: anxiety) 30 Days Qty: 120 3RF cyanocobalamin (vitamin B-12) 1,000 mcg tablet 1,000 mcg PO DAILY 90 Days Qty: 90 3RF metformin 500 mg tablet extended release 24 hr 1,500 mg PO DAILY 90 Days Qty: 270 0RF oxybutynin chloride 10 mg tablet extended release 24hr 10 mg PO DAILY Qty: 90 1RF tamsulosin [Flomax] 0.4 mg capsule 0.4 mg PO BEDTIME Qty: 90 2RF (DME) FreeStyle Iwona 3 Sensor Device See Rx Instructions .ROUTE .MEDSUPPLY Qty: 2 11RF Rx Instructions: As directed (DME) FreeStyle Iwona 3 Porter Misc See Rx Instructions .ROUTE .MEDSUPPLY Qty: 1 0RF Rx Instructions: as directed naproxen 500 mg tablet 500 mg PO BID PRN (Reason: pain) Qty: 60 0RF lidocaine 5 % adhesive patch,medicated 1 patch topical DAILY Qty: 30 0RF Rx Instructions: leave on most painful area for up to 12 hrs metaxalone 800 mg tablet 800 mg PO BEDTIME Qty: 10 0RF insulin glargine [Lantus Solostar U-100 Insulin] 100 unit/mL (3 mL) insulin pen See Rx Instructions subcut QAM Rx Instructions: subcutaneously 60 units every morning and 56 units every evening Print Language: Eritrean
--- NOTE | 2024-02-21 11:32 | ECG_ITS ---
Test Reason : PAIN Blood Pressure : / mmHG Vent. Rate : 081 BPM Atrial Rate : 081 BPM P-R Int : 204 ms QRS Dur : 098 ms QT Int : 400 ms P-R-T Axes : 075 -26 084 degrees QTc Int : 464 ms Normal sinus rhythm Minimal voltage criteria for LVH, may be normal variant ( R in aVL ) Borderline ECG When compared with ECG of 18-FEB-2024 15:38, No significant change was found Referred By: Dulce Cortes Electronically Signed By:BAN SPANGLER MD
[2024-02-21 11:56] LABS: MANUAL DIFF FLAG NO
[2024-02-21 11:58] LABS: Basophils Percent Auto 0.2 % (0-2); Eosinophils Absolute Auto 0.1 X10*3/uL (0.0-0.4); Eosinophils Percent Auto 1.4 % (0-4); Hemoglobin 12.1 g/dl (14.0-18.0); Imm Gran Abs Auto 0.05 X10*3/uL (0.00-0.03); Imm Gran Pct Auto 0.6 % (0.0-0.4); Lymphocytes Absolute Auto 1.6 X10*3/uL (1.2-4.9); Lymphocytes Percent Auto 18.6 % (20-40); Mean Corpuscular HGB Conc 35.6 g/dl (31.0-36.0); Mean Corpuscular Hemoglobin 30.9 pg (27.0-33.0); Mean Corpuscular Volume 86.7 fL (80.0-98.0); Mean Platelet Volume 12.5 fL (9.4-12.4); Monocytes Absolute Auto 0.5 X10*3/uL (0.1-1.2); Monocytes Percent Auto 5.8 % (2-11); Neutrophils Absolute Auto 6.5 x10*3/uL (2.0-8.3); Neutrophils Percent Auto 73.4 % (45-73); Platelet Count 179 X10*3/uL (160-400); Red Blood Count 3.92 X10*6/uL (4.60-5.80); Red Cell Distribution Width 12.3 % (11.0-16.0); White Blood Count 8.8 X10*3/uL (4.8-10.8)
[2024-02-21 12:34] LABS: Influenza A PCR NEGATIVE (Negative); Influenza B PCR NEGATIVE (Negative); Resp Syncy Virus RNA Qual PCR NEGATIVE (Negative); SARS COV2 PCR INHOUSE NEGATIVE (Negative)
[2024-02-21 12:35] LABS: Troponin-I High Sensitivity 15.4 ng/L (<3.5-35.0)
[2024-02-21 12:53] LABS: Alanine Aminotransferase 18 U/L (0-40); Albumin Level 3.9 g/dL (3.5-5.0); Alkaline Phosphatase 138 U/L (39-117); Anion Gap 13 (12-20); Aspartate Amino Transferase 24 U/L (5-37); Bilirubin Direct 0.1 mg/dL (0.0-0.5); Bilirubin Total 0.4 mg/dL (0.0-1.0); Blood Urea Nitrogen 24 mg/dL (9-16); Calcium 9.6 mg/dL (8.4-10.2); Carbon Dioxide 26 mmol/L (22-29); Chloride 99 mmol/L (96-108); Creatinine Clr Calc Pharmacy 46.3; Estimated Glomerular Filt Rate 42; Glucose Random 540 mg/dL (60-115); Lipase 9 U/L (8-78); Magnesium 1.5 mg/dL (1.6-2.6); Potassium 4.1 mmol/L (3.3-5.1); Sodium 134 mmol/L (135-145); Total Protein 7.1 g/dL (6.5-8.0)
[2024-02-21] MEDS: 0.9 % Sodium Chloride 1,000 ML 999 ML IV (13:12)
[2024-02-21] MEDS: LORazepam 2 MG/ML VIAL 0.5 MG IVPUSH (13:17)
[2024-02-21] MEDS: Insulin Regular, Human 100 UNIT/ML 10 ML VIAL IVPUSH (13:22)
[2024-02-21 14:13] VITALS: BP 156/70; PULSE 94; RESP 18; TEMP 36.6; O2SAT 98
[2024-02-21 14:20] LABS: Appearance Urine Clear; Color Urine Yellow; Glucose Urine UA >=1000 mg/dL (Negative); Leukocyte Esterase Urine Negative (Negative); Nitrite Urine Positive (Negative); PH 5.5 (5.0-9.0); Specific Gravity - Urine 1.025 (1.005-1.025); UMIC TRIGGER UACC YES; Urine Blood Negative (Negative); Urine Ketones Negative (Negative); Urine Protein 30 (1+) mg/dL (Neg-Trace)
[2024-02-21 14:27] LABS: Bacteria Urine 4+ (None Seen); Hyaline Casts Urine 0-2 /LPF (0-2); RBC Urine 0-2 /HPF (0-2); Squamous Epithelial Cell Urine 0-2 /HPF (0-2); UACC Culture Trigger YES
[2024-02-21] MEDS: Magnesium Sulfate/H2O 2 GM/50 ML PIGGYBACK IV (14:29)
[2024-02-21 14:33] LABS: Glucose, Whole Blood 336 mg/dL (60-115)
[2024-02-21 14:41] LABS: Ethanol < 10 mg/dL
--- NOTE | 2024-02-21 16:16 | PC.NURSE ---
Patient admitted from home via triage for c/o of vomiting x1 week. Patient states feels like he can't swallow. Patient also stated he had fallen a couple of times as well. Swallow test performed by MD, patient able to pass swallow test without issue. Patient stated mouth felt dry as well. Alert but confused at times. BS was 540, 5 units of Insulin given as ordered with effect. 20g IV started, IVF infusing as ordered. OOB with walker and RN at side ambulating to bathroom.
[2024-02-21] MEDS: cefTRIAXone sodium 1 GM VIAL IVPUSH (16:46)
[2024-02-21 18:14] VITALS: BP 156/70; PULSE 94; RESP 18; TEMP 36.6; O2SAT 98
== END 2024-02-21 18:15 | disposition home or self-care (01) ==
PROVIDERS: Physician Assistant Medical; Emergency Provider Emergency Medicine; PCP Internal Medicine
DX: E86.0 Dehydration (principal); E83.42 Hypomagnesemia; N39.0 Urinary tract infection, site not specified; B96.20 Unspecified Escherichia coli [E. coli] as the cause of diseases classified elsewhere; Z03.818 Encounter for observation for suspected exposure to other biological agents ruled out; R11.2 Nausea with vomiting, unspecified; F41.9 Anxiety disorder, unspecified; R53.1 Weakness; E11.9 Type 2 diabetes mellitus without complications; I10 Essential (primary) hypertension; E78.00 Pure hypercholesterolemia, unspecified; J44.9 Chronic obstructive pulmonary disease, unspecified; R29.6 Repeated falls; Z91.81 History of falling; Z87.891 Personal history of nicotine dependence; Z79.4 Long term (current) use of insulin; Z79.899 Other long term (current) drug therapy; Z79.82 Long term (current) use of aspirin; Z79.84 Long term (current) use of oral hypoglycemic drugs; Z79.02 Long term (current) use of antithrombotics/antiplatelets
CPT/HCPCS: 0241U; 70450; 71045; 80048; 80076; 80307; 81001; 82947; 83690; 83735; 84484; 85025; 87086; 87088; 87186; 93005; 96361; 96365; 96366; 96375; 99285; J0696; J2060; J3475

== ENCOUNTER → 2024-02-21 11:32 | Outpatient (BNV) | payer OTHER, SELFPAY | PROVIDERS: Emergency Provider Emergency Medicine; PCP Internal Medicine; Visit Provider Internal Medicine Cardiovascular Disease | DX: R11.2 Nausea with vomiting, unspecified (principal) | CPT/HCPCS: 93010 ==

== ENCOUNTER 2024-03-01 16:51 | Emergency (ER) | payer OTHER, SELFPAY ==
--- NOTE | ~2024-03-01 | CT_ITS ---
EXAMINATION CT HEAD WITHOUT CONTRAST CLINICAL INFORMATION: Headache COMPARISON: CT head February 21, 2024 TECHNIQUE: CT of the head was performed without intravenous contrast. Reformatted axial, coronal, and sagittal images were reviewed. This CT examination was performed using dose optimization techniques as appropriate, variously including the following: *Automated exposure control *Adjustment of mA and/or kV according to patient size (this includes techniques or standardized protocols for targeted exams where dose is matched to indication/reason for exam; i.e. extremities or head) *Use of iterative reconstruction technique DLP: 782 mGy-cm FINDINGS: No intracranial hemorrhage, extra-axial fluid collection, or midline shift is identified. Caruso-white matter differentiation is preserved. Periventricular white matter hypoattenuation consistent with chronic small vessel ischemic disease. Prominence of the cerebral sulci with commensurate ventriculomegaly consistent with age-related cerebral volume loss. Basal cisterns are within normal limits. Paranasal sinuses are clear. Mastoid air cells and middle ear cavities are clear. No acute calvarial fractures. CT/CT head/brain wo IV con IMPRESSION: No acute intracranial abnormality. Chronic small vessel ischemic disease and age-related cerebral volume loss. Electronically signed by: Sam Noe DO 03/01/2024 08:27 PM EST
--- NOTE | ~2024-03-01 | XR_ITS ---
EXAMINATION: XR CHEST CLINICAL INFORMATION: Exertional dyspnea COMPARISON: 04/23/2023 TECHNIQUE: Frontal view of the chest was obtained. FINDINGS: No focal consolidation, pulmonary edema, or pleural effusion. Stable cardiomediastinal silhouette. XR/XR chest 1V IMPRESSION: No acute cardiopulmonary findings. Electronically signed by: Saul Malave MD 03/01/2024 08:03 PM [facility]
[2024-03-01 17:00] VITALS: BP 117/65; PULSE 88; O2SAT 100
[2024-03-01 17:01] VITALS: BP 142/65; PULSE 83; RESP 17; TEMP 37.1; O2SAT 99
[2024-03-01 17:11] VITALS: BMI 46.0
--- NOTE | 2024-03-01 18:09 | ECG_ITS ---
Test Reason : SOB Blood Pressure : / mmHG Vent. Rate : 082 BPM Atrial Rate : 082 BPM P-R Int : 208 ms QRS Dur : 096 ms QT Int : 372 ms P-R-T Axes : 064 -35 070 degrees QTc Int : 434 ms Normal sinus rhythm Left axis deviation Minimal voltage criteria for LVH, may be normal variant ( R in aVL ) Septal infarct , age undetermined Abnormal ECG When compared with ECG of 21-FEB-2024 12:33, No significant change was found Referred By: Renea Osuna Electronically Signed By:Silverio Page
--- NOTE | 2024-03-01 18:11 | ED_ITS ---
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 Osuna HPI narrative: A 68-year-old male with PMH for CAD, obesity, JAIME, HTN, HLD, BPH, DM. Came in by ambulance for evaluation of multiple symptoms. Headache for the past 2-3 days, and feeling lightheadedness and dizziness, no fever, no chills, no weakness, no numbness. Patient is also complaining of dry mouth and feeling thirsty, patient is diabetic stated that his blood sugar is bed on the high side above 300 at home. Patient is also complaining of exertional dyspnea, lower extremity swelling and edema. Related Data Home Medications ?Medication ?Instructions ?Recorded ?Confirmed polyethylene glycol 3350 17 17 g PO DAILY PRN Constipation 10/09/22 10/03/23 gram/dose oral powder (Miralax) blood-glucose meter (PlayOn! Sportsuch #1 ea 11/27/22 10/03/23 Ultra2 Meter) atorvastatin 80 mg tablet 80 mg PO DAILY 05/11/23 10/03/23 Monthly Medication Organizer 10/03/23 (Med-Box) insulin glargine 100 unit/mL (3 See Rx Instructions subcut QAM 12/23/23 12/23/23 mL) subcutaneous pen (Lantus Solostar U-100 Insulin) Previous Rx's ?Medication ?Instructions ?Recorded SHOWER CHAIR #1 ea 10/05/20 SHOWER CHAIR #1 ea 01/10/21 fluticasone propionate 50 1 spray intranasal DAILY #16 grams 03/16/21 mcg/actuation nasal spray,suspension insulin syr/ndl U100 half gareth 0.5 #100 ea 05/14/21 mL 30 gauge x /16 pen needle, diabetic 31 gauge x #100 ea 03/12/2216 (Lite Touch Insulin Pen Mears) lancets 33 gauge (OneTouch Delica #100 ea 03/13/22 Lancets) dicyclomine 20 mg tablet 20 mg PO QID PRN abdominal pain 07/05/22 #20 tabs ondansetron HCl 4 mg tablet 4 mg PO Q6H PRN nausea and 07/06/22 vomiting #14 tabs metoclopramide HCl 10 mg tablet 10 mg PO AC PRN nausea and 11/12/22 (Reglan) vomiting #20 tabs blood sugar diagnostic 1 strip miscellaneous TID #100 11/27/22 strips blood sugar diagnostic (OneTouch #100 ea 01/13/23 Ultra Test strips) pen needle, diabetic 29 gauge x #100 ea 04/02/23 1 (BD Ultra-Fine Original Pen Needle) pen needle, diabetic 32 gauge x #1,200 ea 04/02/23 (BD Ultra-Fine Brittany Pen Needle) WALKER #1 ea 04/09/23 oxybutynin chloride 10 mg 10 mg PO DAILY #90 tabs 04/16/23 tablet,extended release 24 hr tamsulosin 0.4 mg capsule (Flomax) 0.4 mg PO BEDTIME #90 caps 04/16/23 metoprolol tartrate 50 mg tablet 50 mg PO BID #180 tabs 06/08/23 gabapentin 400 mg capsule 400 mg PO TID #270 caps 06/11/23 walker #1 ea 06/15/23 lisinopril 10 mg tablet 10 mg PO DAILY 90 days #90 tabs 07/11/23 cyanocobalamin (vitamin B-12) 1,000 mcg PO DAILY 90 days #90 tabs 10/03/23 1,000 mcg tablet monthly medication organizer (med #1 ea 10/06/23 box) Semi-Electric [facility] #1 ea 10/07/23 blood-glucose meter,continuous #1 ea 10/21/23 (FreeStyle [place] 3 [place]) blood-glucose sensor (FreeStyle #2 ea 10/21/23 Iwona 3 Sensor device) cefuroxime axetil 250 mg tablet 250 mg PO BID 7 days #14 tabs 11/04/23 phenazopyridine 200 mg tablet 200 mg PO TID 2 days #6 tabs 11/04/23 (Pyridium) cholecalciferol (vitamin D3) 50 50 mcg PO DAILY #90 caps 11/19/23 mcg (2,000 unit) capsule (Vitamin D3) Active Mal guard pads 6 x 11 #208 ea 11/21/23 Cleansing wipes #100 ea 11/21/23 Disposable 30x30 polymer pads #90 ea 11/21/23 heavy floweds Powder free synthetic exam gloves #100 ea 11/21/23 ondansetron 4 mg disintegrating 4 mg PO Q8H PRN nausea and 11/21/23 tablet vomiting #20 tabs metaxalone 800 mg tablet 800 mg PO BEDTIME #10 tabs 12/25/23 metformin 500 mg tablet,extended 1,500 mg (3 x 500 mg) PO DAILY 90 01/09/24 release 24 hr days #270 tabs glucose 4 gram chewable tablet 16 g (4 x 4 gram) PO Q15M #10 tabs 01/22/24 docusate sodium 100 mg capsule 100 mg PO BID PRN constipation 30 01/28/24 days #60 caps insulin lispro 100 unit/mL 15 - 20 unit (0.15 - 0.2 mL) 01/30/24 subcutaneous pen (Humalog KwikPen subcut .TIDAC #15 mL (U-100) Insulin) albuterol sulfate 90 mcg/actuation 2 puff PO Q4-6H PRN for wheezing 02/07/24 aerosol inhaler #8.5 grams omeprazole 40 mg capsule,delayed 40 mg PO DAILY #30 caps 02/20/24 release cefuroxime axetil 250 mg tablet 250 mg PO BID 6 days #12 tabs 02/21/24 aspirin 81 mg tablet,delayed 81 mg PO DAILY #90 tabs 02/27/24 release hydroxyzine HCl 25 mg tablet 25 mg PO Q6H PRN anxiety 30 days 02/27/24 #120 tabs lidocaine 5 % topical patch 1 patch topical DAILY #30 ea 02/27/24 naproxen 500 mg tablet 500 mg PO BID PRN pain #60 tabs 02/27/24 paroxetine HCl 40 mg tablet 40 mg PO DAILY #90 tabs 02/27/24 Allergies Allergy/AdvReac Type Severity Reaction Status Date / Time hydromorphone [Dilaudid] AdvReac Unknown confusion Verified 03/01/24 17:12 From DILAUDID AdvReac Severe CONFUSION/H Uncoded 03/01/24 17:12 ALLUCIATION S From PERCOCET AdvReac Intermediate AGITATION Uncoded 03/01/24 17:12 Review of Systems 2 Review of Systems: All other systems are reviewed and are negative Constitutional: Reports as per HPI and Reports no additional constitutional complaints Eyes: Reports as per HPI and Reports no additional eye complaints Reports system reviewed and no additional complaints, except as documented Cardiovascular: Reports as per HPI and Reports no additional cardiovascular complaints Respiratory: Reports as per HPI and Reports no additional respiratory complaints Gastrointestinal: Reports as per HPI and Reports no additional gastrointestinal complaints Genitourinary: Reports no additional female genitourinary complaints Musculoskeletal: Reports no additional musculoskeletal complaints Skin/Breast: Reports system reviewed and no additional complaints, except as docu Psychiatric: Reports no additional psychiatric complaints Endocrine: Reports no additional endocrine complaints Hematologic/Lymphatic: Reports no additional hematologic/lymphatic complaints Allergic/Immunologic: Reports no additional allergic/immunologic complaints Reports system reviewed and no additional complaints, except as documented and Reports Abnormal speech present [facility] Past Medical History Medical History Type 2 diabetes mellitus with neurologic complication Gastritis and duodenitis Vitamin B12 deficiency Hyperkalemia Intertrigo Major depressive disorder, recurrent Benign prostatic hyperplasia with urinary frequency Constipation Obstructive sleep apnea Vitamin D deficiency Diabetic polyneuropathy Diabetes mellitus Obesity (BMI 30-39.9) Benign essential hypertension Pure hypercholesterolemia Coronary artery disease Surgical History Hx of cataract extraction (~2011) History of quadruple bypass (~2005) Hx of cystoscopy History of prostate surgery (~12/04/10) Hx of cholecystectomy (~2007) Family History Family History Father Lung cancer Mother Diabetes Hypertension Stomach cancer Social History Social History Household Members: None Housing: Apartment Do you presently have visiting nurse or other home services: No Alcohol intake: never Patient Tobacco Use Status: Former Tobacco user Smoked in Last 30 Days: No e-Cigarette/Vaping Use: Never Used Second Hand Smoke Exposure: No Use of substances other than those prescribed or required for medical reasons: No Advance Directives: Yes Advance Directives on File: Yes Advance Directives Date on File: 07/24/23 Do you have a plan to hurt others: No Plan service: No Current occupational status: disabled Cognitive needs: Yes (cane) Hearing needs: No Vision needs: Yes Physical Exam ED Vital Signs: Vital Signs - 24 hr 03/01/24 17:03/01/24 19:46 Temperature 98.7 F Pulse Rate 83 85 Respiratory Rate 17 22 H Blood Pressure 142/65 H 142/71 H Pulse Oximetry 99 96 Oxygen Delivery Method Room Air Room Air BMI result Body Mass Index 46.0 Vital signs have been reviewed and appear to be correct. Blood pressure elevated. Heart rate normal. Respiratory rate normal. Temperature normal. Oxygen saturation normal. Appearance: Alert. Oriented X3. No acute distress. Head: Normal external exam. Normocephalic. Atraumatic. No Araujo signs noted. No raccoon eyes noted Eyes: PERRLA. EOMI. Conjunctiva and sclera normal. Eyelids normal. ENT: TM's Normal. Pharynx normal. Uvula midline. Moist mucous membranes. No trismus noted. No drooling noted. No muffled voice noted. Neck: Normal inspection. Neck supple. FROM. No adenopathy. Thyroid Normal. No meningeal signs. No neck mass noted. CVS: Normal heart rate and rhythm. Heart sound normal. No murmurs noted. Pulses normal throughout. Respiratory: No respiratory distress. Painless inspiration. Breath sounds normal. No wheezes/rales/rhonchi noted. Chest nontender. No accessory muscle usage noted or decreased air movement noted. Abdomen: Soft and nontender. Bowel sounds normal in all 4 quadrants. No distention noted. No organomegaly noted. No visible injury noted. Back: No CVA tenderness. Full range of motion noted. Skin: Skin warm and dry. Normal skin color. Normal skin turgor. No rashes/lesions/lacerations noted. Extremities: +1 lower extremity edema bilaterally, Extremities exhibit normal range of motion. Extremities nontender. Neuro: Mental status: Normal attention, orientation, memory, and affect. Cranial nerves: Pupils are equal, round and reactive to light, EOMI, visual elise are fall, face is symmetric, facial sensations are normal. Motor examination normal muscle tone, strength to 4 extremities. DTR are +2, planter's are flexor. Sensory exam; normal coordination, no ataxia, gait stable. Cerebellar exam: [id number] and [id number] is normal. Extrapyramidal system: No tremors, no rigidity with normal facial expressions. Pronator drift not present NIH Stroke Scale Time: 20:39 Level of Consciousness: Alert Level of Consciousness Questions: Answers both questions correctly Level of Consciousness Commands: Performs both tasks correctly Best Gaze: Normal Visual: No visual loss Facial Palsy: Normal Motor Arm (Right): No drift Motor Arm (Left): No drift Motor Leg (Right): No drift Motor Leg (Left): No drift Limb Ataxia: Absent Sensory: Normal Best Language: No aphasia Dysarthia: Normal Extinction and Inattention: No abnormality Score: 0 Course Reevaluation(s) Reevaluation #1: Poorly-controlled diabetes with hyperglycemia in the ED, otherwise normal neuro exam, head CT is unremarkable, no sign of CHF. Will discharge and follow-up with PCP patient was instructed to discuss with PCP a better management plan for his diabetes. Will keep the patient for physician observation patient is expressing interest in going to rehab. Will consult cm/PT. Time: 20:37 Medical Decision Making Differential Diagnosis Differential Diagnoses: The differential diagnosis associated with the presentation includes (ACS, CHF, pneumonia, pneumothorax, pleural effusion, electrolyte derangement, DKA, severe anemia, UTI, diabetic hyperglycemia.) Admission/Observation Consideration of admission/observation: Escalation of care including admission/observation considered Lab Data MDM Lab Attestation statement: I reviewed the patient's lab results. 03/01/24 19:36 03/01/24 19:36 Labs: Lab Results 03/01/24 03/01/24 03/01/24 Range/Units 19:36 19:37 20:06 WBC 7.3 (4.8-10.8) X10*3/uL RBC 4.19 L (4.60-5.80) X10*6/uL Hgb 13.1 L (14.0-18.0) g/dl Hct 37.0 L (42.0-52.0) % MCV 88.3 (80.0-98.0) fL MCH 31.3 (27.0-33.0) pg MCHC 35.4 (31.0-36.0) g/dl RDW 11.9 (11.0-16.0) % Plt Count 205 (160-400) X10*3/uL MPV 12.1 (9.4-12.4) fL Immature Gran % (Auto) 0.3 (0.0-0.4) % Neut % (Auto) 65.1 (45-73) % Lymph % (Auto) 25.0 (20-40) % [place] % (Auto) 8.1 (2-11) % Eos % (Auto) 1.4 (0-4) % Baso % (Auto) 0.1 (0-2) % Lymph # (Auto) 1.8 (1.2-4.9) X10*3/uL [place] # (Auto) 0.6 (0.1-1.2) X10*3/uL Eos # (Auto) 0.1 (0.0-0.4) X10*3/uL Baso # (Auto) 0.0 (0.0-0.2) X10*3/uL Abs Immat Gran (auto) 0.02 (0.00-0.03) X10*3/uL Absolute Neuts (auto) 4.8 (2.0-8.3) x10*3/uL Absolute Nucleated RBC 0.000 (0.0-0.012) X10*3/uL Nucleated RBC % (auto) 0.0 (0.0-0.2) /100WBC Sodium 138 (135-145) mmol/L Potassium 4.8 (3.3-5.1) mmol/L Chloride 102 (96-108) mmol/L Carbon Dioxide 28 (22-29) mmol/L Anion Gap 13 (12-20) BUN 21 H (9-16) mg/dL Creatinine 1.23 (0.5-1.4) mg/dL Estim Creat Clear Calc 62.0 Estimated GFR 58 Random Glucose 334 H (60-115) mg/dL Lactic Acid 1.2 (0.5-2.0) mmol/L Calcium 10.3 H D (8.4-10.2) mg/dL Total Bilirubin 0.5 (0.0-1.0) mg/dL Direct Bilirubin 0.1 (0.0-0.5) mg/dL AST 31 (5-37) U/L ALT 20 (0-40) U/L Alkaline Phosphatase 123 H (39-117) U/L Troponin I High Sens 11.6 (<3.5-35.0) ng/L Total Protein 7.8 (6.5-8.0) g/dL Albumin 4.1 (3.5-5.0) g/dL Lipase 9 (8-78) U/L Urine Color Yellow Urine Appearance Clear Urine pH 6.0 (5.0-9.0) Ur Specific [place] 1.020 (1.005-1.025) Urine Protein 100 (2+) H (Neg-Trace) mg/dL Urine Glucose (UA) >=1000 H (Negative) mg/dL Urine Ketones Trace (Negative) mg/dL Urine Blood Negative (Negative) Urine Nitrite Negative (Negative) Ur Leukocyte Esterase Negative (Negative) Urine RBC 0-2 (0-2) /HPF Urine WBC 0-5 (0-5) /HPF Ur Squamous Epith Cells 0-2 (0-2) /HPF Urine Bacteria None Seen (None Seen) Hyaline Casts 0-2 (0-2) /LPF Influenza Type A (PCR) NEGATIVE (Negative) Influenza Type B (PCR) NEGATIVE (Negative) RSV RNA Qual (PCR) NEGATIVE (Negative) SARS-CoV-2 RNA (RT-PCR) NEGATIVE (Negative) Independent Interpretation I performed an independent interpretation of an: Plain X-Ray (Chest: No acute intrathoracic pathology.) and CT Scan (Head: No acute intracranial pathology.) Radiology Impression Discussion of test interpretation with radiology: I have reviewed the radiologist's reading. Discharge Plan Discharge Clinical Impression: Acute hyperglycemia, Generalized weakness Patient Disposition: Still a Patient Instructions: Diabetic Hyperglycemia (ED) Additional Instructions: Follow-up with your PCP to manage your diabetes. Prescriptions: No Action fluticasone propionate 50 mcg/actuation spray,suspension 1 spray intranasal DAILY Qty: 16 2RF (DME) pen needle, diabetic [Lite Touch Insulin Pen Mears] 31 gauge x 5/16 needle See Rx Instructions .Route Qty: 100 12RF Rx Instructions: Use 3 times daily (DME) lancets [OneTouch Delica Lancets] 33 gauge misc See Rx Instructions .Route Qty: 100 12RF Rx Instructions: As directed 3 times a day metoclopramide HCl [Reglan] 10 mg tablet 10 mg PO AC PRN (Reason: nausea and vomiting) Qty: 20 0RF OneTouch Ultra Blue Test Strip Strip 1 strip miscellaneous TID Qty: 100 3RF (DME) blood-glucose meter [OneTouch Ultra2 Meter] [facility] See Rx Instructions .ROUTE TID Qty: 1 Rx Instructions: test 3 times per day (DME) OneTouch Ultra Test Strip See Rx Instructions .Route Qty: 100 8RF Rx Instructions: test 3 times per day (DME) pen needle, diabetic [BD Ultra-Fine Orig Pen Needle] 29 gauge x 1/2 needle See Rx Instructions .Route Qty: 100 12RF Rx Instructions: 3 times daily (DME) pen needle, diabetic [BD Ultra-Fine Brittany Pen Needle] 32 gauge x 5/ needle See Rx Instructions .Route Qty: 1200 4RF Rx Instructions: test 3 times daily (DME) WALKER See Rx Instructions .Route .MEDSUPPLY Qty: 1 0RF Rx Instructions: As directed metoprolol tartrate 50 mg tablet 50 mg PO BID Qty: 180 1RF lisinopril 10 mg tablet 10 mg PO DAILY 90 Days Qty: 90 1RF (DME) Monthly Medication Organizer (Med-Box) 0 .Route .MEDSUPPLY (DME) monthly medication organizer (med box) See Rx Instructions .Route .MEDSUPPLY Qty: 1 0RF Rx Instructions: monthly medication organizer box; (DME) Semi-Electric Hospital Bed See Rx Instructions .Route .MEDSUPPLY Qty: 1 0RF Rx Instructions: As directed cholecalciferol (vitamin D3) [Vitamin D3] 50 mcg (2,000 unit) capsule 50 mcg PO DAILY Qty: 90 3RF (DME) Disposable 30x30 polymer pads heavy floweds See Rx Instructions .Route .MEDSUPPLY Qty: 90 11RF Rx Instructions: As directed (DME) Active Mal guard pads 6 x 11 See Rx Instructions .Route .MEDSUPPLY Qty: 208 0RF Rx Instructions: As directed (DME) Cleansing wipes See Rx Instructions .Route .MEDSUPPLY Qty: 100 11RF Rx Instructions: As directed (DME) Powder free synthetic exam gloves small See Rx Instructions .Route .MEDSUPPLY Qty: 100 11RF Rx Instructions: As directed glucose 4 gram tablet,chewable 16 g PO Q15M Qty: 10 5RF Rx Instructions: Chew 4 tablets as needed for low blood sugar (less than 70 mg/dL) every 15 minutes until symptoms improve docusate sodium 100 mg capsule 100 mg PO BID PRN (Reason: constipation) 30 Days Qty: 60 3RF insulin lispro [Humalog KwikPen Insulin] 100 unit/mL insulin pen 15 - 20 unit subcut .TIDAC Qty: 15 3RF albuterol sulfate 90 mcg/actuation HFA aerosol inhaler 2 puff PO Q4-6H PRN (Reason: for wheezing) Qty: 8.5 2RF omeprazole 40 mg capsule,delayed release(DR/EC) 40 mg PO DAILY Qty: 30 3RF paroxetine HCl 40 mg tablet 40 mg PO DAILY Qty: 90 0RF lidocaine 5 % adhesive patch,medicated 1 patch topical DAILY Qty: 30 0RF Rx Instructions: leave on most painful area for up to 12 hrs naproxen 500 mg tablet 500 mg PO BID PRN (Reason: pain) Qty: 60 0RF aspirin 81 mg tablet,delayed release (DR/EC) 81 mg PO DAILY Qty: 90 0RF hydroxyzine HCl 25 mg tablet 25 mg PO Q6H PRN (Reason: anxiety) 30 Days Qty: 120 3RF dicyclomine 20 mg tablet 20 mg PO QID PRN (Reason: abdominal pain) Qty: 20 0RF ondansetron HCl 4 mg tablet 4 mg PO Q6H PRN (Reason: nausea and vomiting) Qty: 14 0RF polyethylene glycol 3350 [Miralax] 17 gram/dose powder 17 g PO DAILY PRN (Reason: Constipation) atorvastatin 80 mg tablet 80 mg PO DAILY cefuroxime axetil 250 mg tablet 250 mg PO BID 7 Days Qty: 14 0RF phenazopyridine [Pyridium] 200 mg tablet 200 mg PO TID 2 Days Qty: 6 0RF ondansetron 4 mg tablet,disintegrating 4 mg PO Q8H PRN (Reason: nausea and vomiting) Qty: 20 0RF cefuroxime axetil 250 mg tablet 250 mg PO BID 6 Days Qty: 12 0RF ([facility]) SHOWER CHAIR See Rx Instructions .Route .MEDSUPPLY Qty: 1 0RF Rx Instructions: As directed ([facility]) SHOWER CHAIR See Rx Instructions .Route .MEDSUPPLY Qty: 1 0RF Rx Instructions: As directed ([facility]) insulin syr/ndl U100 half gareth 0.5 mL 30 gauge x 5/16 syringe See Rx Instructions .Route Qty: 100 12RF Rx Instructions: Use 4 times daily gabapentin 400 mg capsule 400 mg PO TID Qty: 270 1RF ([facility]) kashif Misellie See Rx Instructions .Route Qty: 1 0RF Rx Instructions: As directed cyanocobalamin (vitamin B-12) 1,000 mcg tablet 1,000 mcg PO DAILY 90 Days Qty: 90 3RF metformin 500 mg tablet extended release 24 hr 1,500 mg PO DAILY 90 Days Qty: 270 0RF oxybutynin chloride 10 mg tablet extended release 24hr 10 mg PO DAILY Qty: 90 1RF tamsulosin [Flomax] 0.4 mg capsule 0.4 mg PO BEDTIME Qty: 90 2RF (DME) FreeStyle Iwona 3 Sensor Device See Rx Instructions .ROUTE .MEDSUPPLY Qty: 2 11RF Rx Instructions: As directed (DME) FreeStyle Iwona 3 [place] Misc See Rx Instructions .ROUTE .MEDSUPPLY Qty: 1 0RF Rx Instructions: as directed metaxalone 800 mg tablet 800 mg PO BEDTIME Qty: 10 0RF insulin glargine [Lantus Solostar U-100 Insulin] 100 unit/mL (3 mL) insulin pen See Rx Instructions subcut QAM Rx Instructions: subcutaneously 60 units every morning and 56 units every evening Referrals: Jerry Persaud MD [Primary Care Provider] - Print Language: [place]
[2024-03-01 19:41] LABS: MANUAL DIFF FLAG NO
[2024-03-01 19:43] LABS: Basophils Percent Auto 0.1 % (0-2); Eosinophils Absolute Auto 0.1 X10*3/uL (0.0-0.4); Eosinophils Percent Auto 1.4 % (0-4); Hemoglobin 13.1 g/dl (14.0-18.0); Imm Gran Abs Auto 0.02 X10*3/uL (0.00-0.03); Imm Gran Pct Auto 0.3 % (0.0-0.4); Lymphocytes Absolute Auto 1.8 X10*3/uL (1.2-4.9); Mean Corpuscular HGB Conc 35.4 g/dl (31.0-36.0); Mean Corpuscular Hemoglobin 31.3 pg (27.0-33.0); Mean Corpuscular Volume 88.3 fL (80.0-98.0); Mean Platelet Volume 12.1 fL (9.4-12.4); Monocytes Absolute Auto 0.6 X10*3/uL (0.1-1.2); Monocytes Percent Auto 8.1 % (2-11); Neutrophils Absolute Auto 4.8 x10*3/uL (2.0-8.3); Neutrophils Percent Auto 65.1 % (45-73); Platelet Count 205 X10*3/uL (160-400); Red Blood Count 4.19 X10*6/uL (4.60-5.80); Red Cell Distribution Width 11.9 % (11.0-16.0); White Blood Count 7.3 X10*3/uL (4.8-10.8)
[2024-03-01 19:46] VITALS: BP 142/71; PULSE 85; RESP 22; O2SAT 96
[2024-03-01 19:59] LABS: Lactic Acid 1.2 mmol/L (0.5-2.0)
[2024-03-01 20:00] LABS: Alanine Aminotransferase 20 U/L (0-40); Albumin Level 4.1 g/dL (3.5-5.0); Alkaline Phosphatase 123 U/L (39-117); Anion Gap 13 (12-20); Aspartate Amino Transferase 31 U/L (5-37); Bilirubin Direct 0.1 mg/dL (0.0-0.5); Bilirubin Total 0.5 mg/dL (0.0-1.0); Blood Urea Nitrogen 21 mg/dL (9-16); Calcium 10.3 mg/dL (8.4-10.2); Carbon Dioxide 28 mmol/L (22-29); Chloride 102 mmol/L (96-108); Estimated Glomerular Filt Rate 58; Glucose Random 334 mg/dL (60-115); Lipase 9 U/L (8-78); Potassium 4.8 mmol/L (3.3-5.1); Sodium 138 mmol/L (135-145); Total Protein 7.8 g/dL (6.5-8.0)
[2024-03-01 20:06] LABS: Troponin-I High Sensitivity 11.6 ng/L (<3.5-35.0)
[2024-03-01 20:15] LABS: Appearance Urine Clear; Color Urine Yellow; Glucose Urine UA >=1000 mg/dL (Negative); Leukocyte Esterase Urine Negative (Negative); Nitrite Urine Negative (Negative); UMIC TRIGGER UACC YES; Urine Blood Negative (Negative); Urine Ketones Trace mg/dL (Negative); Urine Protein 100 (2+) mg/dL (Neg-Trace)
[2024-03-01 20:18] LABS: Bacteria Urine None Seen (None Seen); Hyaline Casts Urine 0-2 /LPF (0-2); RBC Urine 0-2 /HPF (0-2); Squamous Epithelial Cell Urine 0-2 /HPF (0-2); WBC Urine 0-5 /HPF (0-5)
[2024-03-01 20:26] LABS: Influenza A PCR NEGATIVE (Negative); Influenza B PCR NEGATIVE (Negative); Resp Syncy Virus RNA Qual PCR NEGATIVE (Negative); SARS COV2 PCR INHOUSE NEGATIVE (Negative)
[2024-03-01 21:39] VITALS: BP 171/86; PULSE 81; RESP 16; TEMP 36.7; O2SAT 96
[2024-03-01 21:41] VITALS: BP 171/86; PULSE 81; RESP 16; TEMP 36.7; O2SAT 96
== END 2024-03-01 21:43 | disposition home or self-care (01) ==
PROVIDERS: Emergency Provider Emergency Medicine; PCP Internal Medicine
DX: E11.65 Type 2 diabetes mellitus with hyperglycemia (principal); R53.1 Weakness; R06.02 Shortness of breath; Z03.818 Encounter for observation for suspected exposure to other biological agents ruled out; R29.700 NIHSS score 0; I10 Essential (primary) hypertension; E78.5 Hyperlipidemia, unspecified; F03.90 Unspecified dementia, unspecified severity, without behavioral disturbance, psychotic disturbance, mood disturbance, and anxiety; J45.909 Unspecified asthma, uncomplicated; Z79.4 Long term (current) use of insulin; Z79.899 Other long term (current) drug therapy; Z79.82 Long term (current) use of aspirin; Z79.02 Long term (current) use of antithrombotics/antiplatelets; Z79.84 Long term (current) use of oral hypoglycemic drugs
CPT/HCPCS: 0241U; 70450; 71045; 80048; 80076; 81001; 83605; 83690; 83880; 84484; 85025; 87040; 93005; 99284

== ENCOUNTER → 2024-03-01 18:09 | Outpatient (BNV) | payer OTHER, SELFPAY | PROVIDERS: Emergency Provider Emergency Medicine; PCP Internal Medicine; Visit Provider Internal Medicine Cardiovascular Disease | DX: R94.31 Abnormal electrocardiogram [ECG] [EKG] (principal) | CPT/HCPCS: 93010 ==

== ENCOUNTER 2024-03-02 01:23 | Emergency (ER) | payer OTHER, SELFPAY ==
[2024-03-02 01:31] VITALS: BP 152/82; BP 167/73; PULSE 78; PULSE 89; RESP 18; TEMP 36.8; O2SAT 98; BMI 35.4
[2024-03-02 01:34] LABS: Glucose, Whole Blood 351 mg/dL (60-115)
--- NOTE | 2024-03-02 01:50 | PC.NURSE ---
pt biba from home, mostly georgian speaking, a&ox4, respirations even and unlabored. pt reporting hyperglycemia, pt reports taking 7u insulin Prior to ems arrival, ems poc 540. on arrival, pt poc 351. pt offers no complaints at this time. pt seen here yesterday for similar episode.
--- NOTE | 2024-03-02 02:06 | ED.GENADULT ---
HPI - General Adult General Chief complaint: General Medical Stated complaint: HIGH POC Time Seen by Provider: 03/02/24 01:52 Source: patient and EMS Mode of arrival: EMS Limitations: no limitations History of Present Illness ED Provider: Dr. Nuria Russell HPI narrative: Patient comes to the emergency room complaining of high blood sugar and anxiety. Patient was discharged from the hospital about 3 hours ago. Initially the plan was to keep him overnight so that PT and case management could help him out for possible rehab/possible placement? . Patient states that he checked his sugar at home, it was above 500, became anxious, gave himself 10 units of insulin, called 911 and came to the hospital. Patient has a complaints. Related Data Home Medications ?Medication ?Instructions ?Recorded ?Confirmed polyethylene glycol 3350 17 17 g PO DAILY PRN Constipation 10/09/22 10/03/23 gram/dose oral powder (Miralax) blood-glucose meter (MattersightTouch #1 ea 11/27/22 10/03/23 Ultra2 Meter) atorvastatin 80 mg tablet 80 mg PO DAILY 05/11/23 10/03/23 Monthly Medication Organizer 10/03/23 (Med-Box) insulin glargine 100 unit/mL (3 See Rx Instructions subcut QAM 12/23/23 12/23/23 mL) subcutaneous pen (Lantus Solostar U-100 Insulin) Previous Rx's ?Medication ?Instructions ?Recorded SHOWER CHAIR #1 ea 10/05/20 SHOWER CHAIR #1 ea 01/10/21 fluticasone propionate 50 1 spray intranasal DAILY #16 grams 03/16/21 mcg/actuation nasal spray,suspension insulin syr/ndl U100 half gareth 0.5 #100 ea 05/14/21 mL 30 gauge x 5/16 pen needle, diabetic 31 gauge x #100 ea 03/12/22 5/16 (Lite Touch Insulin Pen [place]) lancets 33 gauge (OneTouch Delica #100 ea 03/13/22 Lancets) dicyclomine 20 mg tablet 20 mg PO QID PRN abdominal pain 07/05/22 #20 tabs ondansetron HCl 4 mg tablet 4 mg PO Q6H PRN nausea and 07/06/22 vomiting #14 tabs metoclopramide HCl 10 mg tablet 10 mg PO AC PRN nausea and 11/12/22 (Reglan) vomiting #20 tabs blood sugar diagnostic 1 strip miscellaneous TID #100 11/27/22 strips blood sugar diagnostic (OneTouch #100 ea 01/13/23 Ultra Test strips) pen needle, diabetic 29 gauge x #100 ea 04/02/23 1/2 (BD Ultra-Fine Original Pen Needle) pen needle, diabetic 32 gauge x #1,200 ea 04/02/23/32 (BD Ultra-Fine Brittany Pen Needle) WALKER #1 ea 04/09/23 oxybutynin chloride 10 mg 10 mg PO DAILY #90 tabs 04/16/23 tablet,extended release 24 hr tamsulosin 0.4 mg capsule (Flomax) 0.4 mg PO BEDTIME #90 caps 04/16/23 metoprolol tartrate 50 mg tablet 50 mg PO BID #180 tabs 06/08/23 gabapentin 400 mg capsule 400 mg PO TID #270 caps 06/11/23 walker #1 ea 06/15/23 lisinopril 10 mg tablet 10 mg PO DAILY 90 days #90 tabs 07/11/23 cyanocobalamin (vitamin B-12) 1,000 mcg PO DAILY 90 days #90 tabs 10/03/23 1,000 mcg tablet monthly medication organizer (med #1 ea 10/06/23 box) Semi-Electric Hospital Bed #1 ea 10/07/23 blood-glucose meter,continuous #1 ea 10/21/23 (FreeStyle [place] 3 [place]) blood-glucose sensor (FreeStyle #2 ea 10/21/23 [place] 3 Sensor device) cefuroxime axetil 250 mg tablet 250 mg PO BID 7 days #14 tabs 11/04/23 phenazopyridine 200 mg tablet 200 mg PO TID 2 days #6 tabs 11/04/23 (Pyridium) cholecalciferol (vitamin D3) 50 50 mcg PO DAILY #90 caps 11/19/23 mcg (2,000 unit) capsule (Vitamin D3) Active Mal guard pads 6 x 11 #208 ea 11/21/23 Cleansing wipes #100 ea 11/21/23 Disposable 30x30 polymer pads #90 ea 11/21/23 heavy floweds Powder free synthetic exam gloves #100 ea 11/21/23 ondansetron 4 mg disintegrating 4 mg PO Q8H PRN nausea and 11/21/23 tablet vomiting #20 tabs metaxalone 800 mg tablet 800 mg PO BEDTIME #10 tabs 12/25/23 metformin 500 mg tablet,extended 1,500 mg (3 x 500 mg) PO DAILY 90 01/09/24 release 24 hr days #270 tabs glucose 4 gram chewable tablet 16 g (4 x 4 gram) PO Q15M #10 tabs 01/22/24 docusate sodium 100 mg capsule 100 mg PO BID PRN constipation 30 01/28/24 days #60 caps insulin lispro 100 unit/mL 15 - 20 unit (0.15 - 0.2 mL) 01/30/24 subcutaneous pen (Humalog KwikPen subcut .TIDAC #15 mL (U-100) Insulin) albuterol sulfate 90 mcg/actuation 2 puff PO Q4-6H PRN for wheezing 02/07/24 aerosol inhaler #8.5 grams omeprazole 40 mg capsule,delayed 40 mg PO DAILY #30 caps 02/20/24 release cefuroxime axetil 250 mg tablet 250 mg PO BID 6 days #12 tabs 02/21/24 aspirin 81 mg tablet,delayed 81 mg PO DAILY #90 tabs 02/27/24 release hydroxyzine HCl 25 mg tablet 25 mg PO Q6H PRN anxiety 30 days 02/27/24 #120 tabs lidocaine 5 % topical patch 1 patch topical DAILY #30 ea 02/27/24 naproxen 500 mg tablet 500 mg PO BID PRN pain #60 tabs 02/27/24 paroxetine HCl 40 mg tablet 40 mg PO DAILY #90 tabs 02/27/24 Allergies Allergy/AdvReac Type Severity Reaction Status Date / Time hydromorphone [Dilaudid] AdvReac Unknown confusion Verified 03/02/24 01:38 From DILAUDID AdvReac Severe CONFUSION/H Uncoded 03/02/24 01:38 ALLUCIATION S From PERCOCET AdvReac Intermediate AGITATION Uncoded 03/02/24 01:38 Review of Systems Review of Systems: Constitutional : No Weight loss, No Fever, No Chills, No Night Sweats, No Fatigue, No Malaise ENT/Mouth : No Hearing loss, No Ear Pain, No Nasal Congestion, No Sinus Pain, No Hoarseness, No sore throat, No Rhinorrhea, No Swallowing Difficulty Eyes: No Eye Pain, No Swelling, No Redness, No Foreign Body, No Discharge, No Vision Changes Cardiovascular : No Chest Pain, No SOB, No Dyspnea on Exertion, No Orthopnea, No Edema, No Palpitations Respiratory : No Cough, No Sputum, No Wheezing, No Smoke Exposure, No Dyspnea Gastrointestinal : No Nausea, No Vomiting, No Diarrhea, No Constipation, No abdominal Pain, No Hematochezia, No Melena Genitourinary : no irregular bleeding, No Dysuria, No Urinary Frequency, No Hematuria, No Urinary Incontinence, No Urgency, No Flank Pain, No Urinary Flow Changes, No Hesitancy Musculoskeletal : No joint pain, No Myalgias, No Joint Swelling Skin : No Skin Lesions, No rash Neuro : No Weakness, No Numbness, No Paresthesias, No Loss of Consciousness, No Dizziness, No Headache Psych : Complaining of anxiety, No Depression, No SI/HI/AH/VH, No Social Issues, Heme/Lymph: No Bruising, No Bleeding,No Lymphadenopathy Endocrine : Complaining of hyperglycemia, No Polyuria, No Polydipsia, No Temperature Intolerance PMFSH Past Medical History Medical History Type 2 diabetes mellitus with neurologic complication Gastritis and duodenitis Vitamin B12 deficiency Hyperkalemia Intertrigo Major depressive disorder, recurrent Benign prostatic hyperplasia with urinary frequency Constipation Obstructive sleep apnea Vitamin D deficiency Diabetic polyneuropathy Diabetes mellitus Obesity (BMI 30-39.9) Benign essential hypertension Pure hypercholesterolemia Coronary artery disease Surgical History Hx of cataract extraction (~2011) History of quadruple bypass (~2005) Hx of cystoscopy History of prostate surgery (~12/04/10) Hx of cholecystectomy (~2007) Family History Family History Father Lung cancer Mother Diabetes Hypertension Stomach cancer Social History Social History Household Members: None Housing: Apartment Do you presently have visiting nurse or other home services: No Alcohol intake: never Patient Tobacco Use Status: Former Tobacco user Smoked in Last 30 Days: No e-Cigarette/Vaping Use: Never Used Second Hand Smoke Exposure: No Use of substances other than those prescribed or required for medical reasons: No Advance Directives: Yes Advance Directives on File: Yes Advance Directives Date on File: 07/24/23 Do you have a plan to hurt others: No Plan service: No Current occupational status: disabled Cognitive needs: Yes (cane) Hearing needs: No Vision needs: Yes Physical Exam ED Vital Signs: Vital Signs - 24 hr 03/02/24 01:31 Temperature 98.3 F Pulse Rate 89 Respiratory Rate 18 Blood Pressure 167/73 H Pulse Oximetry 98 Oxygen Delivery Method Room Air BMI result Body Mass Index 35.4 Const Other: Appearance: Alert. Oriented X3. No acute distress. Eyes: Pupils equal, round and reactive to light. ENT: Pharynx normal. Neck: Normal inspection. Neck supple. No lymph nodes noted. No crepitus CVS: Normal heart rate and rhythm. Pulses normal. Normal S1 and S2 Respiratory: No respiratory distress. Breath sounds normal. No Wheezing. No rales Abdomen: Soft and nontender. No rigidity. No distention. Skin: Skin warm and dry. Normal skin color. Normal skin turgor. Extremities: No lower extremity edema. No Lacerations. No Rash Neuro: Oriented X 3. No motor deficit. No sensory deficit. Moving all extremities. No slurred speech. CN 2 through 12 grossly intact Psych: calm, cooperative, normal affect Medical Decision Making Medical Decision Making [facility] Narrative: We have current labs from his previous visit a few hours ago. Current point of care 351, patient receiving subcutaneous insulin. After subcutaneous insulin, patient's glucose 205, patient asymptomatic. Lab Data [facility] Lab Attestation statement: I reviewed the patient's lab results. Labs: Lab Results 03/02/24 03/02/24 Range/Units 01:28 02:15 POC Glucose 351 H* 205 H (60-115) mg/dL Discharge Plan Discharge Clinical Impression: Acute hyperglycemia, Anxiety Patient Disposition: Home, Self-Care Instructions: Diabetic Hyperglycemia (ED), Anxiety (ED) Additional Instructions: Please follow-up with your primary care physician tomorrow. If you have any worsening or new symptoms, please return to the emergency room or call 911 Prescriptions: No Action fluticasone propionate 50 mcg/actuation spray,suspension 1 spray intranasal DAILY Qty: 16 2RF (DME) pen needle, diabetic [Lite Touch Insulin Pen [place]] 31 gauge x 5/16 needle See Rx Instructions .Route Qty: 100 12RF Rx Instructions: Use 3 times daily (DME) lancets [OneTouch Delica Lancets] 33 gauge misc See Rx Instructions .Route Qty: 100 12RF Rx Instructions: As directed 3 times a day metoclopramide HCl [Reglan] 10 mg tablet 10 mg PO AC PRN (Reason: nausea and vomiting) Qty: 20 0RF OneTouch Ultra Blue Test Strip Strip 1 strip miscellaneous TID Qty: 100 3RF (DME) blood-glucose meter [OneTouch Ultra2 Meter] [facility] [place] See Rx Instructions .ROUTE TID Qty: 1 Rx Instructions: test 3 times per day (DME) OneTouch Ultra Test Strip See Rx Instructions .Route Qty: 100 8RF Rx Instructions: test 3 times per day (DME) pen needle, diabetic [BD Ultra-Fine Orig Pen Needle] 29 gauge x 1/2 needle See Rx Instructions .Route Qty: 100 12RF Rx Instructions: 3 times daily (DME) pen needle, diabetic [BD Ultra-Fine Brittany Pen Needle] 32 gauge x 5/32 needle See Rx Instructions .Route Qty: 1200 4RF Rx Instructions: test 3 times daily (DME) WALKER See Rx Instructions .Route .MEDSUPPLY Qty: 1 0RF Rx Instructions: As directed metoprolol tartrate 50 mg tablet 50 mg PO BID Qty: 180 1RF lisinopril 10 mg tablet 10 mg PO DAILY 90 Days Qty: 90 1RF (DME) Monthly Medication Organizer (Med-Box) 0 .Route .MEDSUPPLY (DME) monthly medication organizer (med box) See Rx Instructions .Route .MEDSUPPLY Qty: 1 0RF Rx Instructions: monthly medication organizer box; (DME) Semi-Electric Hospital Bed See Rx Instructions .Route .MEDSUPPLY Qty: 1 0RF Rx Instructions: As directed cholecalciferol (vitamin D3) [Vitamin D3] 50 mcg (2,000 unit) capsule 50 mcg PO DAILY Qty: 90 3RF (DME) Disposable 30x30 polymer pads heavy floweds See Rx Instructions .Route .MEDSUPPLY Qty: 90 11RF Rx Instructions: As directed (DME) Active Mal guard pads 6 x 11 See Rx Instructions .Route .MEDSUPPLY Qty: 208 0RF Rx Instructions: As directed (DME) Cleansing wipes See Rx Instructions .Route .MEDSUPPLY Qty: 100 11RF Rx Instructions: As directed (DME) Powder free synthetic exam gloves small See Rx Instructions .Route .MEDSUPPLY Qty: 100 11RF Rx Instructions: As directed glucose 4 gram tablet,chewable 16 g PO Q15M Qty: 10 5RF Rx Instructions: Chew 4 tablets as needed for low blood sugar (less than 70 mg/dL) every 15 minutes until symptoms improve docusate sodium 100 mg capsule 100 mg PO BID PRN (Reason: constipation) 30 Days Qty: 60 3RF insulin lispro [Humalog KwikPen Insulin] 100 unit/mL insulin pen 15 - 20 unit subcut .TIDAC Qty: 15 3RF albuterol sulfate 90 mcg/actuation HFA aerosol inhaler 2 puff PO Q4-6H PRN (Reason: for wheezing) Qty: 8.5 2RF omeprazole 40 mg capsule,delayed release(DR/EC) 40 mg PO DAILY Qty: 30 3RF paroxetine HCl 40 mg tablet 40 mg PO DAILY Qty: 90 0RF lidocaine 5 % adhesive patch,medicated 1 patch topical DAILY Qty: 30 0RF Rx Instructions: leave on most painful area for up to 12 hrs naproxen 500 mg tablet 500 mg PO BID PRN (Reason: pain) Qty: 60 0RF aspirin 81 mg tablet,delayed release (DR/EC) 81 mg PO DAILY Qty: 90 0RF hydroxyzine HCl 25 mg tablet 25 mg PO Q6H PRN (Reason: anxiety) 30 Days Qty: 120 3RF dicyclomine 20 mg tablet 20 mg PO QID PRN (Reason: abdominal pain) Qty: 20 0RF ondansetron HCl 4 mg tablet 4 mg PO Q6H PRN (Reason: nausea and vomiting) Qty: 14 0RF polyethylene glycol 3350 [Miralax] 17 gram/dose powder 17 g PO DAILY PRN (Reason: Constipation) atorvastatin 80 mg tablet 80 mg PO DAILY cefuroxime axetil 250 mg tablet 250 mg PO BID 7 Days Qty: 14 0RF phenazopyridine [Pyridium] 200 mg tablet 200 mg PO TID 2 Days Qty: 6 0RF ondansetron 4 mg tablet,disintegrating 4 mg PO Q8H PRN (Reason: nausea and vomiting) Qty: 20 0RF cefuroxime axetil 250 mg tablet 250 mg PO BID 6 Days Qty: 12 0RF (DME) SHOWER CHAIR See Rx Instructions .Route .MEDSUPPLY Qty: 1 0RF Rx Instructions: As directed (DME) SHOWER CHAIR See Rx Instructions .Route .MEDSUPPLY Qty: 1 0RF Rx Instructions: As directed (DME) insulin syr/ndl U100 half gareth 0.5 mL 30 gauge x 5/16 syringe See Rx Instructions .Route Qty: 100 12RF Rx Instructions: Use 4 times daily gabapentin 400 mg capsule 400 mg PO TID Qty: 270 1RF (DME) walker Misc See Rx Instructions .Route Qty: 1 0RF Rx Instructions: As directed cyanocobalamin (vitamin B-12) 1,000 mcg tablet 1,000 mcg PO DAILY 90 Days Qty: 90 3RF metformin 500 mg tablet extended release 24 hr 1,500 mg PO DAILY 90 Days Qty: 270 0RF oxybutynin chloride 10 mg tablet extended release 24hr 10 mg PO DAILY Qty: 90 1RF tamsulosin [Flomax] 0.4 mg capsule 0.4 mg PO BEDTIME Qty: 90 2RF (DME) FreeStyle [place] 3 Sensor Device See Rx Instructions .ROUTE .MEDSUPPLY Qty: 2 11RF Rx Instructions: As directed (DME) FreeStyle [place] 3 [place] Misc See Rx Instructions .ROUTE .MEDSUPPLY Qty: 1 0RF Rx Instructions: as directed metaxalone 800 mg tablet 800 mg PO BEDTIME Qty: 10 0RF insulin glargine [Lantus Solostar U-100 Insulin] 100 unit/mL (3 mL) insulin pen See Rx Instructions subcut QAM Rx Instructions: subcutaneously 60 units every morning and 56 units every evening Print Language: Macedonian
[2024-03-02 02:19] LABS: Glucose, Whole Blood 205 mg/dL (60-115)
[2024-03-02] MEDS: Insulin Lispro 100 UNIT/ML 3 ML VIAL SUBCUT (02:27)
[2024-03-02 03:51] VITALS: BP 167/73; PULSE 89; RESP 18; TEMP 36.8; O2SAT 98
== END 2024-03-02 03:52 | disposition home or self-care (01) ==
PROVIDERS: Emergency Provider Emergency Medicine
DX: E11.65 Type 2 diabetes mellitus with hyperglycemia (principal); F41.1 Generalized anxiety disorder; F43.0 Acute stress reaction; Z79.4 Long term (current) use of insulin; Z87.891 Personal history of nicotine dependence; Z79.899 Other long term (current) drug therapy
CPT/HCPCS: 82947; 99282; 99284

== ENCOUNTER 2024-03-03 03:57 | Emergency (ER) | payer OTHER, SELFPAY ==
[2024-03-03 04:00] VITALS: BP 160/60; PULSE 81; O2SAT 98
[2024-03-03 04:06] VITALS: BP 145/54; PULSE 85; RESP 20; TEMP 36.8; O2SAT 97; BMI 18.4
[2024-03-03 04:14] LABS: Glucose, Whole Blood 197 mg/dL (60-115)
[2024-03-03] MEDS: LORazepam 1 MG TABLET PO (04:14)
--- NOTE | 2024-03-03 04:21 | ED.ANXIETY ---
HPI - Anxiety General Chief Complaint: Anxiety Stated Complaint: ANXIETY Time Seen by Provider: 03/03/24 04:08 Source: patient Mode of arrival: ambulatory Limitations: no limitations History of Present Illness ED Provider: HPI narrative: Patient's history of anxiety diabetes unable to sleep for last 2 days tried hydroxyzine without much sleep denies any depression or any stress asking for medication to relax and sleep Related Data Home Medications ?Medication ?Instructions ?Recorded ?Confirmed polyethylene glycol 3350 17 17 g PO DAILY PRN Constipation 10/09/22 10/03/23 gram/dose oral powder (Miralax) blood-glucose meter (OneTouch #1 ea 11/27/22 10/03/23 Ultra2 Meter) atorvastatin 80 mg tablet 80 mg PO DAILY 05/11/23 10/03/23 Monthly Medication Organizer 10/03/23 (Med-Box) insulin glargine 100 unit/mL (3 See Rx Instructions subcut QAM 12/23/23 12/23/23 mL) subcutaneous pen (Lantus Solostar U-100 Insulin) Previous Rx's ?Medication ?Instructions ?Recorded SHOWER CHAIR #1 ea 10/05/20 SHOWER CHAIR #1 ea 01/10/21 fluticasone propionate 50 1 spray intranasal DAILY #16 grams 03/16/21 mcg/actuation nasal spray,suspension insulin syr/ndl U100 half gareth 0.5 #100 ea 05/14/21 mL 30 gauge x 5/16 pen needle, diabetic 31 gauge x #100 ea 03/12/22 5/16 (Lite Touch Insulin Pen [place]) lancets 33 gauge (OneTouch Delica #100 ea 03/13/22 Lancets) dicyclomine 20 mg tablet 20 mg PO QID PRN abdominal pain 07/05/22 #20 tabs ondansetron HCl 4 mg tablet 4 mg PO Q6H PRN nausea and 07/06/22 vomiting #14 tabs metoclopramide HCl 10 mg tablet 10 mg PO AC PRN nausea and 11/12/22 (Reglan) vomiting #20 tabs blood sugar diagnostic 1 strip miscellaneous TID #100 11/27/22 strips blood sugar diagnostic (OneTouch #100 ea 01/13/23 Ultra Test strips) pen needle, diabetic 29 gauge x #100 ea 04/02/23 1/2 (BD Ultra-Fine Original Pen Needle) pen needle, diabetic 32 gauge x #1,200 ea 04/02/23 5/32 (BD Ultra-Fine Brittany Pen Needle) WALKER #1 ea 04/09/23 oxybutynin chloride 10 mg 10 mg PO DAILY #90 tabs 04/16/23 tablet,extended release 24 hr tamsulosin 0.4 mg capsule (Flomax) 0.4 mg PO BEDTIME #90 caps 04/16/23 metoprolol tartrate 50 mg tablet 50 mg PO BID #180 tabs 06/08/23 gabapentin 400 mg capsule 400 mg PO TID #270 caps 06/11/23 walker #1 ea 06/15/23 lisinopril 10 mg tablet 10 mg PO DAILY 90 days #90 tabs 07/11/23 cyanocobalamin (vitamin B-12) 1,000 mcg PO DAILY 90 days #90 tabs 10/03/23 1,000 mcg tablet monthly medication organizer (med #1 ea 10/06/23 box) Semi-Electric Hospital Bed #1 ea 10/07/23 blood-glucose meter,continuous #1 10/21/23 (FreeStyle [place] 3 [place]) blood-glucose sensor (FreeStyle #2 ea 10/21/23 Iwona 3 Sensor device) cefuroxime axetil 250 mg tablet 250 mg PO BID 7 days #14 tabs 11/04/23 phenazopyridine 200 mg tablet 200 mg PO TID 2 days #6 tabs 11/04/23 (Pyridium) cholecalciferol (vitamin D3) 50 50 mcg PO DAILY #90 caps 11/19/23 mcg (2,000 unit) capsule (Vitamin D3) Active Mal guard pads 6 x 11 #208 ea 11/21/23 Cleansing wipes #100 ea 11/21/23 Disposable 30x30 polymer pads #90 ea 11/21/23 heavy floweds Powder free synthetic exam gloves #100 ea 11/21/23 ondansetron 4 mg disintegrating 4 mg PO Q8H PRN nausea and 11/21/23 tablet vomiting #20 tabs metaxalone 800 mg tablet 800 mg PO BEDTIME #10 tabs 12/25/23 metformin 500 mg tablet,extended 1,500 mg (3 x 500 mg) PO DAILY 90 01/09/24 release 24 hr days #270 tabs glucose 4 gram chewable tablet 16 g (4 x 4 gram) PO Q15M #10 tabs 01/22/24 docusate sodium 100 mg capsule 100 mg PO BID PRN constipation 30 01/28/24 days #60 caps insulin lispro 100 unit/mL 15 - 20 unit (0.15 - 0.2 mL) 01/30/24 subcutaneous pen (Humalog KwikPen subcut .TIDAC #15 mL (U-100) Insulin) albuterol sulfate 90 mcg/actuation 2 puff PO Q4-6H PRN for wheezing 02/07/24 aerosol inhaler #8.5 grams omeprazole 40 mg capsule,delayed 40 mg PO DAILY #30 caps 02/20/24 release cefuroxime axetil 250 mg tablet 250 mg PO BID 6 days #12 tabs 02/21/24 aspirin 81 mg tablet,delayed 81 mg PO DAILY #90 tabs 02/27/24 release hydroxyzine HCl 25 mg tablet 25 mg PO Q6H PRN anxiety 30 days 02/27/24 #120 tabs lidocaine 5 % topical patch 1 patch topical DAILY #30 ea 02/27/24 naproxen 500 mg tablet 500 mg PO BID PRN pain #60 tabs 02/27/24 paroxetine HCl 40 mg tablet 40 mg PO DAILY #90 tabs 02/27/24 lorazepam 1 mg tablet (Ativan) 1 mg PO BEDTIME PRN anxiety/sleep 03/03/24 #10 tabs Allergies Allergy/AdvReac Type Severity Reaction Status Date / Time hydromorphone [Dilaudid] AdvReac Unknown confusion Verified 03/03/24 04:07 From DILAUDID AdvReac Severe CONFUSION/H Uncoded 03/03/24 04:07 ALLUCIATION S From PERCOCET AdvReac Intermediate AGITATION Uncoded 03/03/24 04:07 Review of Systems Review of Systems: Yes all other systems are reviewed and are negative PMFSH Past Medical History Medical History Type 2 diabetes mellitus with neurologic complication Gastritis and duodenitis Vitamin B12 deficiency Hyperkalemia Intertrigo Major depressive disorder, recurrent Benign prostatic hyperplasia with urinary frequency Constipation Obstructive sleep apnea Vitamin D deficiency Diabetic polyneuropathy Diabetes mellitus Obesity (BMI 30-39.9) Benign essential hypertension Pure hypercholesterolemia Coronary artery disease Surgical History Hx of cataract extraction (~2011) History of quadruple bypass (~2005) Hx of cystoscopy History of prostate surgery (~12/04/10) Hx of cholecystectomy (~2007) Family History Family History Father Lung cancer Mother Diabetes Hypertension Stomach cancer Social History Social History Household Members: None Housing: Apartment Do you presently have visiting nurse or other home services: No Alcohol intake: never Patient Tobacco Use Status: Former Tobacco user Smoked in Last 30 Days: No e-Cigarette/Vaping Use: Never Used Second Hand Smoke Exposure: No Use of substances other than those prescribed or required for medical reasons: No Advance Directives: Yes Advance Directives on File: Yes Advance Directives Date on File: 07/24/23 service: No Current occupational status: disabled Cognitive needs: Yes (cane) Hearing needs: No Vision needs: Yes Physical Exam Vital Signs: Vital Signs: Last Vital Signs Temp 98.3 F 03/03/24 04:06 Pulse 85 03/03/24 04:06 Resp 20 03/03/24 04:06 BP 145/54 H 03/03/24 04:06 Pulse Ox 97 03/03/24 04:06 O2 Del Method Room Air 03/03/24 04:06 BMI result Body Mass Index 18.4 Appearance: Alert. Oriented X3. No acute distress. Anxious Eyes: PERRLA, No Nystagmus ENT: Pharynx normal. Oral Mucosa moist Neck: Normal inspection. Neck supple. CVS: Normal heart rate and rhythm. Pulses normal. Respiratory: No respiratory distress. Equal air entry bilateral, no wheezing/rales/rhonchi Abdomen: Soft and nontender. Bowel sounds are present, no mass palpable, no CVA tenderness Skin: Skin warm and dry. Normal skin color. Normal skin turgor. Extremities: No lower extremity edema. No calf tenderness Neuro: Oriented X 3. No motor deficit. No sensory deficit.No cerebellar signs , cranial nerves II-XII intact Medications Administered Discontinued Medications Generic Name Dose Route Start Last Admin Trade Name Freq PRN Reason Stop Dose Admin Lorazepam 1 mg 03/03/24 04:08 12/25/24 04:14 Lorazepam 1 Mg Tablet PO 03/03/24 04:09 1 mg ONCE ONE Administration Medical Decision Making Medical Decision Making [facility] Narrative: Patient's anxiety with frequent ED visits for sleep problems does not have any medication for anxiety at home will prescribe him lorazepam for now advised to follow up with PCP if patient felt relaxed after taking 1 tablet of lorazepam in the ER Lab Data [facility] Lab Attestation statement: I reviewed the patient's lab results. Labs: Lab Results 03/03/24 Range/Units 04:10 POC Glucose 197 H (60-115) mg/dL Discharge Plan Discharge Clinical Impression: Anxiety, Insomnia disorder Patient Disposition: Home, Self-Care Instructions: Insomnia (ED), Anxiety (ED) Additional Instructions: Take medication as prescribed for insomnia and anxiety every evening to get good sleep Follow up with your PCP/therapist Prescriptions: New lorazepam [Ativan] 1 mg tablet 1 mg PO BEDTIME PRN (Reason: anxiety/sleep) Qty: 10 0RF No Action fluticasone propionate 50 mcg/actuation spray,suspension 1 spray intranasal DAILY Qty: 16 2RF (DME) pen needle, diabetic [Lite Touch Insulin Pen [place]] 31 gauge x 5/16 needle See Rx Instructions .Route Qty: 100 12RF Rx Instructions: Use 3 times daily (DME) lancets [OneTouch Delica Lancets] 33 gauge misc See Rx Instructions .Route Qty: 100 12RF Rx Instructions: As directed 3 times a day metoclopramide HCl [Reglan] 10 mg tablet 10 mg PO AC PRN (Reason: nausea and vomiting) Qty: 20 0RF OneTouch Ultra Blue Test Strip Strip 1 strip miscellaneous TID Qty: 100 3RF (DME) blood-glucose meter [OneTouch Ultra2 Meter] Misc See Rx Instructions .ROUTE TID Qty: 1 Rx Instructions: test 3 times per day (DME) OneTouch Ultra Test Strip See Rx Instructions .Route Qty: 100 8RF Rx Instructions: test 3 times per day (DME) pen needle, diabetic [BD Ultra-Fine Orig Pen Needle] 29 gauge x 1/2 needle See Rx Instructions .Route Qty: 100 12RF Rx Instructions: 3 times daily (DME) pen needle, diabetic [BD Ultra-Fine Brittany Pen Needle] 32 gauge x 5/32 needle See Rx Instructions .Route Qty: 1200 4RF Rx Instructions: test 3 times daily (DME) WALKER See Rx Instructions .Route .MEDSUPPLY Qty: 1 0RF Rx Instructions: As directed metoprolol tartrate 50 mg tablet 50 mg PO BID Qty: 180 1RF lisinopril 10 mg tablet 10 mg PO DAILY 90 Days Qty: 90 1RF (DME) Monthly Medication Organizer (Med-Box) 0 .Route .MEDSUPPLY (DME) monthly medication organizer (med box) See Rx Instructions .Route .MEDSUPPLY Qty: 1 0RF Rx Instructions: monthly medication organizer box; (DME) Semi-Electric Hospital Bed See Rx Instructions .Route .MEDSUPPLY Qty: 1 0RF Rx Instructions: As directed cholecalciferol (vitamin D3) [Vitamin D3] 50 mcg (2,000 unit) capsule 50 mcg PO DAILY Qty: 90 3RF (DME) Disposable 30x30 polymer pads heavy floweds See Rx Instructions .Route .MEDSUPPLY Qty: 90 11RF Rx Instructions: As directed (DME) Active Mal guard pads 6 x 11 See Rx Instructions .Route .MEDSUPPLY Qty: 208 0RF Rx Instructions: As directed (DME) Cleansing wipes See Rx Instructions .Route .MEDSUPPLY Qty: 100 11RF Rx Instructions: As directed (DME) Powder free synthetic exam gloves small See Rx Instructions .Route .MEDSUPPLY Qty: 100 11RF Rx Instructions: As directed glucose 4 gram tablet,chewable 16 g PO Q15M Qty: 10 5RF Rx Instructions: Chew 4 tablets as needed for low blood sugar (less than 70 mg/dL) every 15 minutes until symptoms improve docusate sodium 100 mg capsule 100 mg PO BID PRN (Reason: constipation) 30 Days Qty: 60 3RF insulin lispro [Humalog KwikPen Insulin] 100 unit/mL insulin pen 15 - 20 unit subcut .TIDAC Qty: 15 3RF albuterol sulfate 90 mcg/actuation HFA aerosol inhaler 2 puff PO Q4-6H PRN (Reason: for wheezing) Qty: 8.5 2RF omeprazole 40 mg capsule,delayed release(DR/EC) 40 mg PO DAILY Qty: 30 3RF paroxetine HCl 40 mg tablet 40 mg PO DAILY Qty: 90 0RF lidocaine 5 % adhesive patch,medicated 1 patch topical DAILY Qty: 30 0RF Rx Instructions: leave on most painful area for up to 12 hrs naproxen 500 mg tablet 500 mg PO BID PRN (Reason: pain) Qty: 60 0RF aspirin 81 mg tablet,delayed release (DR/EC) 81 mg PO DAILY Qty: 90 0RF hydroxyzine HCl 25 mg tablet 25 mg PO Q6H PRN (Reason: anxiety) 30 Days Qty: 120 3RF dicyclomine 20 mg tablet 20 mg PO QID PRN (Reason: abdominal pain) Qty: 20 0RF ondansetron HCl 4 mg tablet 4 mg PO Q6H PRN (Reason: nausea and vomiting) Qty: 14 0RF polyethylene glycol 3350 [Miralax] 17 gram/dose powder 17 g PO DAILY PRN (Reason: Constipation) atorvastatin 80 mg tablet 80 mg PO DAILY cefuroxime axetil 250 mg tablet 250 mg PO BID 7 Days Qty: 14 0RF phenazopyridine [Pyridium] 200 mg tablet 200 mg PO TID 2 Days Qty: 6 0RF ondansetron 4 mg tablet,disintegrating 4 mg PO Q8H PRN (Reason: nausea and vomiting) Qty: 20 0RF cefuroxime axetil 250 mg tablet 250 mg PO BID 6 Days Qty: 12 0RF (DME) SHOWER CHAIR See Rx Instructions .Route .MEDSUPPLY Qty: 1 0RF Rx Instructions: As directed (DME) SHOWER CHAIR See Rx Instructions .Route .MEDSUPPLY Qty: 1 0RF Rx Instructions: As directed (DME) insulin syr/ndl U100 half gareth 0.5 mL 30 gauge x 5/16 syringe See Rx Instructions .Route Qty: 100 12RF Rx Instructions: Use 4 times daily gabapentin 400 mg capsule 400 mg PO TID Qty: 270 1RF (DME) walker [facility] [place] See Rx Instructions .Route Qty: 1 0RF Rx Instructions: As directed cyanocobalamin (vitamin B-12) 1,000 mcg tablet 1,000 mcg PO DAILY 90 Days Qty: 90 3RF metformin 500 mg tablet extended release 24 hr 1,500 mg PO DAILY 90 Days Qty: 270 0RF oxybutynin chloride 10 mg tablet extended release 24hr 10 mg PO DAILY Qty: 90 1RF tamsulosin [Flomax] 0.4 mg capsule 0.4 mg PO BEDTIME Qty: 90 2RF (DME) FreeStyle Iwona 3 Sensor Device See Rx Instructions .ROUTE .MEDSUPPLY Qty: 2 11RF Rx Instructions: As directed (DME) FreeStyle [place] 3 [place] Misc See Rx Instructions .ROUTE .MEDSUPPLY Qty: 1 0RF Rx Instructions: as directed metaxalone 800 mg tablet 800 mg PO BEDTIME Qty: 10 0RF insulin glargine [Lantus Solostar U-100 Insulin] 100 unit/mL (3 mL) insulin pen See Rx Instructions subcut QAM Rx Instructions: subcutaneously 60 units every morning and 56 units every evening Print Language: Jordanian
[2024-03-03 06:27] VITALS: BP 134/58; PULSE 74; RESP 16; TEMP 36.8; O2SAT 98
[2024-03-03 06:32] VITALS: BP 134/58; PULSE 74; RESP 16; TEMP 36.8; O2SAT 98
[2024-03-03 08:19] VITALS: BP 00/00; PULSE 0; RESP 0; TEMP -17.7; TEMP 0; O2SAT 0
== END 2024-03-03 07:30 | disposition home or self-care (01) ==
PROVIDERS: Emergency Provider Internal Medicine; PCP Internal Medicine
DX: F41.9 Anxiety disorder, unspecified (principal); G47.00 Insomnia, unspecified; E11.9 Type 2 diabetes mellitus without complications; Z79.899 Other long term (current) drug therapy; Z87.891 Personal history of nicotine dependence
CPT/HCPCS: 82947; 99283; 99284

== ENCOUNTER 2024-03-04 00:49 | Emergency (ER) | payer OTHER, SELFPAY ==
[2024-03-04 00:53] VITALS: BP 148/64; PULSE 74; O2SAT 99
[2024-03-04 00:54] VITALS: BP 136/48; PULSE 73; RESP 18; TEMP 36.7; O2SAT 99; BMI 39.6
--- NOTE | 2024-03-04 01:58 | PC.NURSE ---
provided pt with water per request
--- NOTE | 2024-03-04 02:31 | PC.NURSE ---
pt rang for tv not working, found remote and gave to pt
--- NOTE | 2024-03-04 03:34 | PC.NURSE ---
pt rang for assist to bathroom, provided walker and stand by assist.
[2024-03-04 04:00] VITALS: BP 140/59; PULSE 82; RESP 18; TEMP 37.1; O2SAT 98
--- NOTE | 2024-03-04 04:39 | PC.NURSE ---
made pt a cup of tea, pt on the phone in his room
--- NOTE | 2024-03-04 05:58 | ED_ITS ---
HPI - Anxiety General Chief Complaint: Anxiety Stated Complaint: anxious, insomnia, hyperglycemic, hx diabetes Time Seen by Provider: 03/04/24 03:33 Source: patient Mode of arrival: EMS Limitations: no limitations History of Present Illness ED Provider: HPI narrative: Patient's history of anxiety insomnia been here 5 times this month unable to get his medication yesterday from the pharmacy comes here again as he could not sleep tonight also with increased anxiety Related Data Home Medications ?Medication ?Instructions ?Recorded ?Confirmed polyethylene glycol 3350 17 17 g PO DAILY PRN Constipation 10/09/22 10/03/23 gram/dose oral powder (Miralax) blood-glucose meter (OneTouch #1 ea 11/27/22 10/03/23 Ultra2 Meter) atorvastatin 80 mg tablet 80 mg PO DAILY 05/11/23 10/03/23 Monthly Medication Organizer 10/03/23 (Med-Box) insulin glargine 100 unit/mL (3 See Rx Instructions subcut QAM 12/23/23 12/23/23 mL) subcutaneous pen (Lantus Solostar U-100 Insulin) Previous Rx's ?Medication ?Instructions ?Recorded SHOWER CHAIR #1 ea 10/05/20 SHOWER CHAIR #1 ea 01/10/21 fluticasone propionate 50 1 spray intranasal DAILY #16 grams 03/16/21 mcg/actuation nasal spray,suspension insulin syr/ndl U100 half gareth 0.5 #100 ea 05/14/21 mL 30 gauge x 5/16 pen needle, diabetic 31 gauge x #100 ea 03/12/22 5/16 (Lite Touch Insulin Pen [place]) lancets 33 gauge ([employer] [place] #100 ea 03/13/22 Lancets) dicyclomine 20 mg tablet 20 mg PO QID PRN abdominal pain 07/05/22 #20 tabs ondansetron HCl 4 mg tablet 4 mg PO Q6H PRN nausea and 07/06/22 vomiting #14 tabs metoclopramide HCl 10 mg tablet 10 mg PO AC PRN nausea and 11/12/22 (Reglan) vomiting #20 tabs blood sugar diagnostic 1 strip miscellaneous TID #100 11/27/22 strips blood sugar diagnostic (OneTouch #100 ea 01/13/23 Ultra Test strips) pen needle, diabetic 29 gauge x #100 ea 01/24/24 1/2 (BD Ultra-Fine Original Pen Needle) pen needle, diabetic 32 gauge x #1,200 ea 04/02/23 (BD Ultra-Fine Brittany Pen Needle) WALKER #1 ea 04/09/23 oxybutynin chloride 10 mg 10 mg PO DAILY #90 tabs 04/16/23 tablet,extended release 24 hr tamsulosin 0.4 mg capsule (Flomax) 0.4 mg PO BEDTIME #90 caps 04/16/23 metoprolol tartrate 50 mg tablet 50 mg PO BID #180 tabs 06/08/23 gabapentin 400 mg capsule 400 mg PO TID #270 caps 06/11/23 walker #1 ea 06/15/23 lisinopril 10 mg tablet 10 mg PO DAILY 90 days #90 tabs 07/11/23 cyanocobalamin (vitamin B-12) 1,000 mcg PO DAILY 90 days #90 tabs 10/03/23 1,000 mcg tablet monthly medication organizer (med #1 ea 10/06/23 box) Semi-Electric Hospital Bed #1 ea 10/07/23 blood-glucose meter,continuous #1 ea 10/21/23 (FreeStyle [place] 3 [place]) blood-glucose sensor (FreeStyle #2 ea 10/21/23 Iwona 3 Sensor device) cefuroxime axetil 250 mg tablet 250 mg PO BID 7 days #14 tabs 11/04/23 phenazopyridine 200 mg tablet 200 mg PO TID 2 days #6 tabs 11/04/23 (Pyridium) cholecalciferol (vitamin D3) 50 50 mcg PO DAILY #90 caps 11/19/23 mcg (2,000 unit) capsule (Vitamin D3) Active Mal guard pads 6 x 11 #208 ea 11/21/23 Cleansing wipes #100 ea 11/21/23 Disposable 30x30 polymer pads #90 ea 11/21/23 heavy floweds Powder free synthetic exam gloves #100 ea 11/21/23 ondansetron 4 mg disintegrating 4 mg PO Q8H PRN nausea and 11/21/23 tablet vomiting #20 tabs metaxalone 800 mg tablet 800 mg PO BEDTIME #10 tabs 12/25/23 metformin 500 mg tablet,extended 1,500 mg (3 x 500 mg) PO DAILY 90 01/09/24 release 24 hr days #270 tabs glucose 4 gram chewable tablet 16 g (4 x 4 gram) PO Q15M #10 tabs 01/22/24 docusate sodium 100 mg capsule 100 mg PO BID PRN constipation 30 01/28/24 days #60 caps insulin lispro 100 unit/mL 15 - 20 unit (0.15 - 0.2 mL) 01/30/24 subcutaneous pen (Humalog KwikPen subcut .TIDAC #15 mL (U-100) Insulin) albuterol sulfate 90 mcg/actuation 2 puff PO Q4-6H PRN for wheezing 02/07/24 aerosol inhaler #8.5 grams omeprazole 40 mg capsule,delayed 40 mg PO DAILY #30 caps 02/20/24 release cefuroxime axetil 250 mg tablet 250 mg PO BID 6 days #12 tabs 02/21/24 aspirin 81 mg tablet,delayed 81 mg PO DAILY #90 tabs 02/27/24 release hydroxyzine HCl 25 mg tablet 25 mg PO Q6H PRN anxiety 30 days 02/27/24 #120 tabs lidocaine 5 % topical patch 1 patch topical DAILY #30 ea 02/27/24 naproxen 500 mg tablet 500 mg PO BID PRN pain #60 tabs 02/27/24 paroxetine HCl 40 mg tablet 40 mg PO DAILY #90 tabs 02/27/24 lorazepam 1 mg tablet (Ativan) 1 mg PO BEDTIME PRN anxiety/sleep 03/03/24 #10 tabs Allergies Allergy/AdvReac Type Severity Reaction Status Date / Time hydromorphone [Dilaudid] AdvReac Unknown confusion Verified 03/04/24 00:55 From DILAUDID AdvReac Severe CONFUSION/H Uncoded 03/04/24 00:55 ALLUCIATION S From PERCOCET AdvReac Intermediate AGITATION Uncoded 03/04/24 00:55 Review of Systems Review of Systems: Yes all other systems are reviewed and are negative PMFSH Past Medical History Medical History Type 2 diabetes mellitus with neurologic complication Gastritis and duodenitis Vitamin B12 deficiency Hyperkalemia Intertrigo Major depressive disorder, recurrent Benign prostatic hyperplasia with urinary frequency Constipation Obstructive sleep apnea Vitamin D deficiency Diabetic polyneuropathy Diabetes mellitus Obesity (BMI 30-39.9) Benign essential hypertension Pure hypercholesterolemia Coronary artery disease Surgical History Hx of cataract extraction (~2011) History of quadruple bypass (~2005) Hx of cystoscopy History of prostate surgery (~12/04/10) Hx of cholecystectomy (~2007) Family History Family History Father Lung cancer Mother Diabetes Hypertension Stomach cancer Social History Social History Household Members: None Housing: Apartment Do you presently have visiting nurse or other home services: No Alcohol intake: never Patient Tobacco Use Status: Former Tobacco user e-Cigarette/Vaping Use: Never Used Second Hand Smoke Exposure: No Advance Directives: Yes Advance Directives on File: Yes Advance Directives Date on File: 07/24/23 service: No Current occupational status: disabled Cognitive needs: Yes (cane) Hearing needs: No Vision needs: Yes Physical Exam Vital Signs: Vital Signs: Last Vital Signs Temp 98.7 F 03/04/24 04:00 Pulse 82 03/04/24 04:00 Resp 18 03/04/24 04:00 BP 140/59 H 03/04/24 04:00 Pulse Ox 98 03/04/24 04:00 O2 Del Method Room Air 03/04/24 04:00 BMI result Body Mass Index 39.6 Appearance: Alert. Oriented X3. No acute distress. Anxious Eyes: PERRLA, No Nystagmus ENT: Pharynx normal. Oral Mucosa moist Neck: Normal inspection. Neck supple. CVS: Normal heart rate and rhythm. Pulses normal. Respiratory: No respiratory distress. Equal air entry bilateral, no wheezing/rales/rhonchi Abdomen: Soft and nontender. Bowel sounds are present, no mass palpable, no CVA tenderness Skin: Skin warm and dry. Normal skin color. Normal skin turgor. Extremities: No lower extremity edema. No calf tenderness Neuro: Oriented X 3. No motor deficit. Medical Decision Making Medical Decision Making MDM Narrative: Patient's anxiety does have medications at home need to go to pharmacy to pick it up will discharge patient home advised to take his medications as prescribed and follow up with PCP Discharge Plan Discharge Clinical Impression: Acute anxiety Patient Disposition: Home, Self-Care Instructions: Anxiety (ED) Additional Instructions: Take medication as prescribed for sleep and anxiety Follow with your PCP Prescriptions: No Action fluticasone propionate 50 mcg/actuation spray,suspension 1 spray intranasal DAILY Qty: 16 2RF (DME) pen needle, diabetic [Lite Touch Insulin Pen [place]] 31 gauge x 5/16 needle See Rx Instructions .Route Qty: 100 12RF Rx Instructions: Use 3 times daily (DME) lancets [OneTouch [place] Lancets] 33 gauge misc See Rx Instructions .Route Qty: 100 12RF Rx Instructions: As directed 3 times a day metoclopramide HCl [Reglan] 10 mg tablet 10 mg PO AC PRN (Reason: nausea and vomiting) Qty: 20 0RF OneTouch Ultra Blue Test Strip Strip 1 strip miscellaneous TID Qty: 100 3RF (DME) blood-glucose meter [OneTouch Ultra2 Meter] [facility] [place] [facility] [place] See Rx Instructions .ROUTE TID Qty: 1 Rx Instructions: test 3 times per day (DME) OneTouch Ultra Test Strip See Rx Instructions .Route Qty: 100 8RF Rx Instructions: test 3 times per day (DME) pen needle, diabetic [BD Ultra-Fine Orig Pen Needle] 29 gauge x 1/2 needle See Rx Instructions .Route Qty: 100 12RF Rx Instructions: 3 times daily (DME) pen needle, diabetic [BD Ultra-Fine Brittany Pen Needle] 32 gauge x 5/32 needle See Rx Instructions .Route Qty: 1200 4RF Rx Instructions: test 3 times daily (DME) WALKER See Rx Instructions .Route .MEDSUPPLY Qty: 1 0RF Rx Instructions: As directed metoprolol tartrate 50 mg tablet 50 mg PO BID Qty: 180 1RF lisinopril 10 mg tablet 10 mg PO DAILY 90 Days Qty: 90 1RF (DME) Monthly Medication Organizer (Med-Box) 0 .Route .MEDSUPPLY (DME) monthly medication organizer (med box) See Rx Instructions .Route .MEDSUPPLY Qty: 1 0RF Rx Instructions: monthly medication organizer box; (DME) Semi-Electric Hospital Bed See Rx Instructions .Route .MEDSUPPLY Qty: 1 0RF Rx Instructions: As directed cholecalciferol (vitamin D3) [Vitamin D3] 50 mcg (2,000 unit) capsule 50 mcg PO DAILY Qty: 90 3RF (DME) Disposable 30x30 polymer pads heavy floweds See Rx Instructions .Route .MEDSUPPLY Qty: 90 11RF Rx Instructions: As directed (DME) Active Mal guard pads 6 x 11 See Rx Instructions .Route .MEDSUPPLY Qty: 208 0RF Rx Instructions: As directed (DME) Cleansing wipes See Rx Instructions .Route .MEDSUPPLY Qty: 100 11RF Rx Instructions: As directed (DME) Powder free synthetic exam gloves small See Rx Instructions .Route .MEDSUPPLY Qty: 100 11RF Rx Instructions: As directed glucose 4 gram tablet,chewable 16 g PO Q15M Qty: 10 5RF Rx Instructions: Chew 4 tablets as needed for low blood sugar (less than 70 mg/dL) every 15 minutes until symptoms improve docusate sodium 100 mg capsule 100 mg PO BID PRN (Reason: constipation) 30 Days Qty: 60 3RF insulin lispro [Humalog KwikPen Insulin] 100 unit/mL insulin pen 15 - 20 unit subcut .TIDAC Qty: 15 3RF albuterol sulfate 90 mcg/actuation HFA aerosol inhaler 2 puff PO Q4-6H PRN (Reason: for wheezing) Qty: 8.5 2RF omeprazole 40 mg capsule,delayed release(DR/EC) 40 mg PO DAILY Qty: 30 3RF paroxetine HCl 40 mg tablet 40 mg PO DAILY Qty: 90 0RF lidocaine 5 % adhesive patch,medicated 1 patch topical DAILY Qty: 30 0RF Rx Instructions: leave on most painful area for up to 12 hrs naproxen 500 mg tablet 500 mg PO BID PRN (Reason: pain) Qty: 60 0RF aspirin 81 mg tablet,delayed release (DR/EC) 81 mg PO DAILY Qty: 90 0RF hydroxyzine HCl 25 mg tablet 25 mg PO Q6H PRN (Reason: anxiety) 30 Days Qty: 120 3RF dicyclomine 20 mg tablet 20 mg PO QID PRN (Reason: abdominal pain) Qty: 20 0RF ondansetron HCl 4 mg tablet 4 mg PO Q6H PRN (Reason: nausea and vomiting) Qty: 14 0RF polyethylene glycol 3350 [Miralax] 17 gram/dose powder 17 g PO DAILY PRN (Reason: Constipation) atorvastatin 80 mg tablet 80 mg PO DAILY cefuroxime axetil 250 mg tablet 250 mg PO BID 7 Days Qty: 14 0RF phenazopyridine [Pyridium] 200 mg tablet 200 mg PO TID 2 Days Qty: 6 0RF ondansetron 4 mg tablet,disintegrating 4 mg PO Q8H PRN (Reason: nausea and vomiting) Qty: 20 0RF cefuroxime axetil 250 mg tablet 250 mg PO BID 6 Days Qty: 12 0RF lorazepam [Ativan] 1 mg tablet 1 mg PO BEDTIME PRN (Reason: anxiety/sleep) Qty: 10 0RF (DME) SHOWER CHAIR See Rx Instructions .Route .MEDSUPPLY Qty: 1 0RF Rx Instructions: As directed (DME) SHOWER CHAIR See Rx Instructions .Route .MEDSUPPLY Qty: 1 0RF Rx Instructions: As directed (DME) insulin syr/ndl U100 half gareth 0.5 mL 30 gauge x 5/16 syringe See Rx Instructions .Route Qty: 100 12RF Rx Instructions: Use 4 times daily gabapentin 400 mg capsule 400 mg PO TID Qty: 270 1RF (DME) walker Misc See Rx Instructions .Route Qty: 1 0RF Rx Instructions: As directed cyanocobalamin (vitamin B-12) 1,000 mcg tablet 1,000 mcg PO DAILY 90 Days Qty: 90 3RF metformin 500 mg tablet extended release 24 hr 1,500 mg PO DAILY 90 Days Qty: 270 0RF oxybutynin chloride 10 mg tablet extended release 24hr 10 mg PO DAILY Qty: 90 1RF tamsulosin [Flomax] 0.4 mg capsule 0.4 mg PO BEDTIME Qty: 90 2RF (DME) FreeStyle [place] 3 Sensor Device See Rx Instructions .ROUTE .MEDSUPPLY Qty: 2 11RF Rx Instructions: As directed (DME) FreeStyle [place] 3 [place] Misc See Rx Instructions .ROUTE .MEDSUPPLY Qty: 1 0RF Rx Instructions: as directed metaxalone 800 mg tablet 800 mg PO BEDTIME Qty: 10 0RF insulin glargine [Lantus Solostar U-100 Insulin] 100 unit/mL (3 mL) insulin pen See Rx Instructions subcut QAM Rx Instructions: subcutaneously 60 units every morning and 56 units every evening Print Language: [place]
[2024-03-04 06:36] VITALS: BP 131/66; PULSE 76; RESP 18; TEMP 36.6; O2SAT 99
[2024-03-04 06:55] VITALS: BP 131/66; PULSE 76; RESP 18; TEMP 36.6; O2SAT 99
== END 2024-03-04 06:55 | disposition home or self-care (01) ==
PROVIDERS: Emergency Provider Internal Medicine
DX: F41.9 Anxiety disorder, unspecified (principal); E11.9 Type 2 diabetes mellitus without complications; I10 Essential (primary) hypertension; E78.00 Pure hypercholesterolemia, unspecified; G47.33 Obstructive sleep apnea (adult) (pediatric); Z87.891 Personal history of nicotine dependence
CPT/HCPCS: 99283

== ENCOUNTER 2024-03-04 22:36 | Emergency (ER) | payer OTHER, SELFPAY ==
[2024-03-04 22:49] VITALS: BP 145/75; PULSE 82; RESP 18; TEMP 36.5; O2SAT 100; BMI 41.2
[2024-03-04 23:14] LABS: MANUAL DIFF FLAG NO
[2024-03-04 23:15] LABS: Basophils Percent Auto 0.3 % (0-2); Eosinophils Absolute Auto 0.1 X10*3/uL (0.0-0.4); Eosinophils Percent Auto 1.3 % (0-4); Hemoglobin 11.7 g/dl (14.0-18.0); Imm Gran Abs Auto 0.05 X10*3/uL (0.00-0.03); Imm Gran Pct Auto 0.5 % (0.0-0.4); Lymphocytes Absolute Auto 2.4 X10*3/uL (1.2-4.9); Lymphocytes Percent Auto 24.7 % (20-40); Mean Corpuscular HGB Conc 33.4 g/dl (31.0-36.0); Mean Corpuscular Volume 89.7 fL (80.0-98.0); Mean Platelet Volume 11.8 fL (9.4-12.4); Monocytes Absolute Auto 0.7 X10*3/uL (0.1-1.2); Monocytes Percent Auto 7.3 % (2-11); Neutrophils Absolute Auto 6.3 x10*3/uL (2.0-8.3); Neutrophils Percent Auto 65.9 % (45-73); Platelet Count 216 X10*3/uL (160-400); Red Cell Distribution Width 12.1 % (11.0-16.0); White Blood Count 9.6 X10*3/uL (4.8-10.8)
[2024-03-04 23:30] LABS: Alanine Aminotransferase 22 U/L (0-40); Albumin Level 3.8 g/dL (3.5-5.0); Alkaline Phosphatase 117 U/L (39-117); Anion Gap 13 (12-20); Aspartate Amino Transferase 29 U/L (5-37); Bilirubin Total 0.2 mg/dL (0.0-1.0); Blood Urea Nitrogen 27 mg/dL (9-16); Calcium 9.3 mg/dL (8.4-10.2); Carbon Dioxide 26 mmol/L (22-29); Chloride 104 mmol/L (96-108); Creatinine Clr Calc Pharmacy 55.7; Estimated Glomerular Filt Rate 51; Glucose Random 175 mg/dL (60-115); Potassium 4.5 mmol/L (3.3-5.1); Sodium 138 mmol/L (135-145); Total Protein 7.2 g/dL (6.5-8.0)
[2024-03-04 23:53] LABS: Influenza A PCR NEGATIVE (Negative); Influenza B PCR NEGATIVE (Negative); Resp Syncy Virus RNA Qual PCR NEGATIVE (Negative); SARS COV2 PCR INHOUSE NEGATIVE (Negative)
== END 2024-03-05 03:32 | disposition left against medical advice (07) ==
LOC: HO.ED 03-05 03:29
PROVIDERS: Emergency Provider Emergency Medicine
DX: F41.9 Anxiety disorder, unspecified (principal); R06.02 Shortness of breath; R53.1 Weakness; Z03.818 Encounter for observation for suspected exposure to other biological agents ruled out
CPT/HCPCS: 0241U; 80053; 85025; 99281

== ENCOUNTER 2024-03-19 09:14 | Emergency (ER) | payer OTHER, SELFPAY ==
--- NOTE | ~2024-03-19 | XR_ITS ---
EXAMINATION: XR ABDOMEN KUB CLINICAL INDICATION: constipation COMPARISON: X-ray dated July 06, 2022 TECHNIQUE: AP view of the abdomen. FINDINGS: No intestinal dilatation. No air-fluid levels. Stool within the large intestine. Vascular clips right upper abdomen. Sternal wires. Multilevel thoracolumbar spondylosis. XR/XR KUB IMPRESSION: No intestinal obstruction pattern. Status post cholecystectomy. Multilevel thoracolumbar spondylosis. Electronically signed by: Jermain Harrington MD 03/19/2024 10:39 AM AURY BUTT
[2024-03-19 09:27] VITALS: BP 130/49; PULSE 75; RESP 16; TEMP 37; O2SAT 93; BMI 38.8
--- NOTE | 2024-03-19 09:53 | ED.GENADULT ---
HPI - General Adult General Chief complaint: Abdominal Pain Stated complaint: back pain Time Seen by Provider: 03/19/24 09:53 History of Present Illness ED Provider: Sharif GAYLE narrative: The patient says that he developed abdominal pain around 08:00 this morning. He tried to have a bowel movement but he felt it was difficult and he thought he might be constipated. A relative drove him to the emergency room. No fever, sweats, chills. No nausea or vomiting. He feels the pain across his lower abdomen. Related Data Home Medications ?Medication ?Instructions ?Recorded ?Confirmed polyethylene glycol 3350 17 17 g PO DAILY PRN Constipation 10/09/22 10/03/23 gram/dose oral powder (Miralax) blood-glucose meter (OneTouch #1 ea 11/27/22 10/03/23 Ultra2 Meter) atorvastatin 80 mg tablet 80 mg PO DAILY 05/11/23 10/03/23 Monthly Medication Organizer 10/03/23 (Med-Box) insulin glargine 100 unit/mL (3 See Rx Instructions subcut QAM 12/23/23 12/23/23 mL) subcutaneous pen (Lantus Solostar U-100 Insulin) Previous Rx's ?Medication ?Instructions ?Recorded SHOWER CHAIR #1 ea 10/05/20 SHOWER CHAIR #1 ea 01/10/21 fluticasone propionate 50 1 spray intranasal DAILY #16 grams 03/16/21 mcg/actuation nasal spray,suspension insulin syr/ndl U100 half gareth 0.5 #100 ea 05/14/21 mL 30 gauge x 5/16 pen needle, diabetic 31 gauge x #100 ea 03/12/22 5/16 (Lite Touch Insulin Pen [place]) lancets 33 gauge (OneTouch Delica #100 ea 03/13/22 Lancets) dicyclomine 20 mg tablet 20 mg PO QID PRN abdominal pain 07/05/22 #20 tabs ondansetron HCl 4 mg tablet 4 mg PO Q6H PRN nausea and 07/06/22 vomiting #14 tabs metoclopramide HCl 10 mg tablet 10 mg PO AC PRN nausea and 11/12/22 (Reglan) vomiting #20 tabs blood sugar diagnostic 1 strip miscellaneous TID #100 11/27/22 strips blood sugar diagnostic (OneTouch #100 ea 01/13/23 Ultra Test strips) pen needle, diabetic 29 gauge x #100 ea 04/02/23 1/2 (BD Ultra-Fine Original Pen Needle) pen needle, diabetic 32 gauge x #1,200 ea 04/02/23 (BD Ultra-Fine Brittany Pen Needle) WALKER #1 ea 04/09/23 oxybutynin chloride 10 mg 10 mg PO DAILY #90 tabs 04/16/23 tablet,extended release 24 hr tamsulosin 0.4 mg capsule (Flomax) 0.4 mg PO BEDTIME #90 caps 04/16/23 metoprolol tartrate 50 mg tablet 50 mg PO BID #180 tabs 06/08/23 gabapentin 400 mg capsule 400 mg PO TID #270 caps 06/11/23 walker #1 ea 06/15/23 lisinopril 10 mg tablet 10 mg PO DAILY 90 days #90 tabs 07/11/23 cyanocobalamin (vitamin B-12) 1,000 mcg PO DAILY 90 days #90 tabs 10/03/23 1,000 mcg tablet monthly medication organizer (med #1 10/06/23 box) Semi-Electric Hospital Bed #1 ea 10/07/23 blood-glucose meter,continuous #1 10/21/23 (FreeStyle [place] 3 [place]) blood-glucose sensor (FreeStyle #2 ea 10/21/23 Iwona 3 Sensor device) cefuroxime axetil 250 mg tablet 250 mg PO BID 7 days #14 tabs 11/04/23 phenazopyridine 200 mg tablet 200 mg PO TID 2 days #6 tabs 11/04/23 (Pyridium) cholecalciferol (vitamin D3) 50 50 mcg PO DAILY #90 caps 11/19/23 mcg (2,000 unit) capsule (Vitamin D3) Active Mal guard pads 6 x 11 #208 ea 11/21/23 Cleansing wipes #100 ea 11/21/23 Disposable 30x30 polymer pads #90 ea 11/21/23 heavy floweds Powder free synthetic exam gloves #100 ea 11/21/23 ondansetron 4 mg disintegrating 4 mg PO Q8H PRN nausea and 11/21/23 tablet vomiting #20 tabs metaxalone 800 mg tablet 800 mg PO BEDTIME #10 tabs 12/25/23 metformin 500 mg tablet,extended 1,500 mg (3 x 500 mg) PO DAILY 90 01/09/24 release 24 hr days #270 tabs glucose 4 gram chewable tablet 16 g (4 x 4 gram) PO Q15M #10 tabs 01/22/24 docusate sodium 100 mg capsule 100 mg PO BID PRN constipation 30 01/28/24 days #60 caps insulin lispro 100 unit/mL 15 - 20 unit (0.15 - 0.2 mL) 01/30/24 subcutaneous pen (Humalog KwikPen subcut .TIDAC #15 mL (U-100) Insulin) albuterol sulfate 90 mcg/actuation 2 puff PO Q4-6H PRN for wheezing 02/07/24 aerosol inhaler #8.5 grams omeprazole 40 mg capsule,delayed 40 mg PO DAILY #30 caps 02/20/24 release cefuroxime axetil 250 mg tablet 250 mg PO BID 6 days #12 tabs 02/21/24 aspirin 81 mg tablet,delayed 81 mg PO DAILY #90 tabs 02/27/24 release hydroxyzine HCl 25 mg tablet 25 mg PO Q6H PRN anxiety 30 days 02/27/24 #120 tabs lidocaine 5 % topical patch 1 patch topical DAILY #30 ea 02/27/24 naproxen 500 mg tablet 500 mg PO BID PRN pain #60 tabs 02/27/24 paroxetine HCl 40 mg tablet 40 mg PO DAILY #90 tabs 02/27/24 lorazepam 1 mg tablet (Ativan) 1 mg PO BEDTIME PRN anxiety/sleep 03/03/24 #10 tabs Allergies Allergy/AdvReac Type Severity Reaction Status Date / Time hydromorphone [Dilaudid] AdvReac Unknown confusion Verified 03/19/24 09:31 From DILAUDID AdvReac Severe CONFUSION/H Uncoded 03/04/24 22:54 ALLUCIATION S From PERCOCET AdvReac Intermediate AGITATION Uncoded 03/04/24 22:54 Review of Systems Review of Systems: Yes all other systems are reviewed and are negative PMFSH Past Medical History Medical History Type 2 diabetes mellitus with neurologic complication Gastritis and duodenitis Vitamin B12 deficiency Hyperkalemia Intertrigo Major depressive disorder, recurrent Benign prostatic hyperplasia with urinary frequency Constipation Obstructive sleep apnea Vitamin D deficiency Diabetic polyneuropathy Diabetes mellitus Obesity (BMI 30-39.9) Benign essential hypertension Pure hypercholesterolemia Coronary artery disease Surgical History Hx of cataract extraction (~2011) History of quadruple bypass (~2005) Hx of cystoscopy History of prostate surgery (~12/04/10) Hx of cholecystectomy (~2007) Family History Family History Father Lung cancer Mother Diabetes Hypertension Stomach cancer Social History Social History Household Members: None Housing: Apartment Do you presently have visiting nurse or other home services: No Alcohol intake: never Patient Tobacco Use Status: Former Tobacco user Smoked in Last 30 Days: No e-Cigarette/Vaping Use: Never Used Second Hand Smoke Exposure: No Use of substances other than those prescribed or required for medical reasons: No Advance Directives: Yes Advance Directives on File: Yes Advance Directives Date on File: 07/24/23 service: No Current occupational status: disabled Cognitive needs: Yes (cane) Hearing needs: No Vision needs: Yes Physical Exam ED Vital Signs: Vital Signs - 24 hr 03/19/24 09:27 03/19/24 10:25 03/19/24 12:18 Temperature 98.6 F 97.9 F 98.7 F Pulse Rate 75 82 77 Respiratory Rate 16 16 16 Blood Pressure 130/49 L 170/85 H 161/70 H Pulse Oximetry 93 94 94 Oxygen Delivery Method Room Air Room Air Room Air BMI result Body Mass Index 38.8 Const Other: The patient is somewhat chronically ill-appearing man who is awake and alert. He does not appear obviously acutely ill. He is pleasant cooperative. HENNV Head: Yes normal to inspection Mouth: Normal oral and palatal mucosa present and moist mucous membranes Eyes General: appearance normal, both eyes and all related structures Neck Neck: Yes full ROM Resp Effort & Inspection: normal respiratory effort Auscultation: clear to auscultation bilaterally Cardio Rate: regular rate Rhythm: regular rhythm Heart sounds: S1 normal heart sound present and S2 normal heart sound present GI Other: The abdomen was soft and nontender. Rectal exam revealed normal rectal tone. No significant stool in the rectum. No fecal impaction. Skin Other: Skin was pale and dry Neuro Other: the patient is awake and alert. Cranial nerves are grossly intact. He moves extremities symmetrically. Extrem Other: No peripheral edema Medications Administered Discontinued Medications Generic Name Dose Route Start Last Admin Trade Name Freq PRN Reason Stop Dose Admin Sodium Biphosphate/Sodium Phosphate 133 ml 03/19/24 10:40 03/19/24 10:42 Sodium Phosphate,Baldwin-Dibasic 133 Ml Enema [place] 03/19/24 10:41 133 ml ONCE ONE Administration Medical Decision Making Medical Decision Making [facility] Narrative: the patient is a 68-year-old male who presents with the complaint of lower abdominal pain and a sense of hard stools. A KUB did not show any significant abnormalities. Digital rectal exam does not reveal any fecal impaction. I administered a Fleet enema after performing a digital rectal exam. The patient subsequently reports having a large bowel movement with improvement in his symptoms. He will be discharged With instructions to increase fiber in his diet. Discharge Plan Discharge Clinical Impression: Abdominal pain, Constipation Patient Disposition: Home, Self-Care Instructions: Constipation (ED), High Fiber Diet (ED) Additional Instructions: It seems as though your abdominal discomfort may have been the result of constipation. Please try to increase the amount of fiber in your diet to help reduce constipation in the future. Vegetables and beans will be helpful. Please follow up soon with your regular doctor to discuss this further. Return to the emergency room if worse. Prescriptions: No Action fluticasone propionate 50 mcg/actuation spray,suspension 1 spray intranasal DAILY Qty: 16 2RF (DME) pen needle, diabetic [Lite Touch Insulin Pen [place]] 31 gauge x 5/16 needle See Rx Instructions .Route Qty: 100 12RF Rx Instructions: Use 3 times daily (DME) lancets [OneTouch Delica Lancets] 33 gauge misc See Rx Instructions .Route Qty: 100 12RF Rx Instructions: As directed 3 times a day metoclopramide HCl [Reglan] 10 mg tablet 10 mg PO AC PRN (Reason: nausea and vomiting) Qty: 20 0RF OneTouch Ultra Blue Test Strip Strip 1 strip miscellaneous TID Qty: 100 3RF (DME) blood-glucose meter [OneTouch Ultra2 Meter] Misc See Rx Instructions .ROUTE TID Qty: 1 Rx Instructions: test 3 times per day (DME) OneTouch Ultra Test Strip See Rx Instructions .Route Qty: 100 8RF Rx Instructions: test 3 times per day (DME) pen needle, diabetic [BD Ultra-Fine Orig Pen Needle] 29 gauge x 1/2 needle See Rx Instructions .Route Qty: 100 12RF Rx Instructions: 3 times daily (DME) pen needle, diabetic [BD Ultra-Fine Brittany Pen Needle] 32 gauge x 5/32 needle See Rx Instructions .Route Qty: 1200 4RF Rx Instructions: test 3 times daily (DME) WALKER See Rx Instructions .Route .MEDSUPPLY Qty: 1 0RF Rx Instructions: As directed metoprolol tartrate 50 mg tablet 50 mg PO BID Qty: 180 1RF lisinopril 10 mg tablet 10 mg PO DAILY 90 Days Qty: 90 1RF (DME) Monthly Medication Organizer (Med-Box) 0 .Route .MEDSUPPLY (DME) monthly medication organizer (med box) See Rx Instructions .Route .MEDSUPPLY Qty: 1 0RF Rx Instructions: monthly medication organizer box; (DME) [facility] Bed See Rx Instructions .Route .MEDSUPPLY Qty: 1 0RF Rx Instructions: As directed cholecalciferol (vitamin D3) [Vitamin D3] 50 mcg (2,000 unit) capsule 50 mcg PO DAILY Qty: 90 3RF (DME) Disposable 30x30 polymer pads heavy floweds See Rx Instructions .Route .MEDSUPPLY Qty: 90 11RF Rx Instructions: As directed (DME) Active Mal guard pads 6 x 11 See Rx Instructions .Route .MEDSUPPLY Qty: 208 0RF Rx Instructions: As directed (DME) Cleansing wipes See Rx Instructions .Route .MEDSUPPLY Qty: 100 11RF Rx Instructions: As directed (DME) Powder free synthetic exam gloves small See Rx Instructions .Route .MEDSUPPLY Qty: 100 11RF Rx Instructions: As directed glucose 4 gram tablet,chewable 16 g PO Q15M Qty: 10 5RF Rx Instructions: Chew 4 tablets as needed for low blood sugar (less than 70 mg/dL) every 15 minutes until symptoms improve docusate sodium 100 mg capsule 100 mg PO BID PRN (Reason: constipation) 30 Days Qty: 60 3RF insulin lispro [Humalog KwikPen Insulin] 100 unit/mL insulin pen 15 - 20 unit subcut .TIDAC Qty: 15 3RF albuterol sulfate 90 mcg/actuation HFA aerosol inhaler 2 puff PO Q4-6H PRN (Reason: for wheezing) Qty: 8.5 2RF omeprazole 40 mg capsule,delayed release(DR/EC) 40 mg PO DAILY Qty: 30 3RF paroxetine HCl 40 mg tablet 40 mg PO DAILY Qty: 90 0RF lidocaine 5 % adhesive patch,medicated 1 patch topical DAILY Qty: 30 0RF Rx Instructions: leave on most painful area for up to 12 hrs naproxen 500 mg tablet 500 mg PO BID PRN (Reason: pain) Qty: 60 0RF aspirin 81 mg tablet,delayed release (DR/EC) 81 mg PO DAILY Qty: 90 0RF hydroxyzine HCl 25 mg tablet 25 mg PO Q6H PRN (Reason: anxiety) 30 Days Qty: 120 3RF dicyclomine 20 mg tablet 20 mg PO QID PRN (Reason: abdominal pain) Qty: 20 0RF ondansetron HCl 4 mg tablet 4 mg PO Q6H PRN (Reason: nausea and vomiting) Qty: 14 0RF polyethylene glycol 3350 [Miralax] 17 gram/dose powder 17 g PO DAILY PRN (Reason: Constipation) atorvastatin 80 mg tablet 80 mg PO DAILY cefuroxime axetil 250 mg tablet 250 mg PO BID 7 Days Qty: 14 0RF phenazopyridine [Pyridium] 200 mg tablet 200 mg PO TID 2 Days Qty: 6 0RF ondansetron 4 mg tablet,disintegrating 4 mg PO Q8H PRN (Reason: nausea and vomiting) Qty: 20 0RF cefuroxime axetil 250 mg tablet 250 mg PO BID 6 Days Qty: 12 0RF lorazepam [Ativan] 1 mg tablet 1 mg PO BEDTIME PRN (Reason: anxiety/sleep) Qty: 10 0RF ([facility]) SHOWER CHAIR See Rx Instructions .Route .MEDSUPPLY Qty: 1 0RF Rx Instructions: As directed ([facility]) SHOWER CHAIR See Rx Instructions .Route .MEDSUPPLY Qty: 1 0RF Rx Instructions: As directed ([facility]) insulin syr/ndl U100 half gareth 0.5 mL 30 gauge x 5/16 syringe See Rx Instructions .Route Qty: 100 12RF Rx Instructions: Use 4 times daily gabapentin 400 mg capsule 400 mg PO TID Qty: 270 1RF (DME) walker Misc See Rx Instructions .Route Qty: 1 0RF Rx Instructions: As directed cyanocobalamin (vitamin B-12) 1,000 mcg tablet 1,000 mcg PO DAILY 90 Days Qty: 90 3RF metformin 500 mg tablet extended release 24 hr 1,500 mg PO DAILY 90 Days Qty: 270 0RF oxybutynin chloride 10 mg tablet extended release 24hr 10 mg PO DAILY Qty: 90 1RF tamsulosin [Flomax] 0.4 mg capsule 0.4 mg PO BEDTIME Qty: 90 2RF (DME) FreeStyle Iwona 3 Sensor Device See Rx Instructions .ROUTE .MEDSUPPLY Qty: 2 11RF Rx Instructions: As directed (DME) FreeStyle [place] 3 [place] Misc See Rx Instructions .ROUTE .MEDSUPPLY Qty: 1 0RF Rx Instructions: as directed metaxalone 800 mg tablet 800 mg PO BEDTIME Qty: 10 0RF insulin glargine [Lantus Solostar U-100 Insulin] 100 unit/mL (3 mL) insulin pen See Rx Instructions subcut QAM Rx Instructions: subcutaneously 60 units every morning and 56 units every evening Referrals: Jerry Persaud MD [Primary Care Provider] - (Constipation) Interventions: ED Discharge Assessment Last Done: 03/19/24 12:56 Discharge Date/Time: 03/19/24 12:56 Print Language: Puerto Rican
[2024-03-19 10:25] VITALS: BP 170/85; PULSE 82; RESP 16; TEMP 36.6; O2SAT 94
[2024-03-19] MEDS: Sodium Phosphate,Mono-Dibasic 133 ML ENEMA PR (10:42)
[2024-03-19 12:18] VITALS: BP 161/70; PULSE 77; RESP 16; TEMP 37.1; O2SAT 94
[2024-03-19 12:56] VITALS: BP 161/70; PULSE 77; RESP 16; TEMP 37.1; O2SAT 94
== END 2024-03-19 12:56 | disposition home or self-care (01) ==
PROVIDERS: Emergency Provider Emergency Medicine; PCP Internal Medicine
DX: K59.00 Constipation, unspecified (principal); R10.30 Lower abdominal pain, unspecified; R10.2 Pelvic and perineal pain; E11.9 Type 2 diabetes mellitus without complications; Z79.899 Other long term (current) drug therapy; Z79.4 Long term (current) use of insulin
CPT/HCPCS: 74018; 99284

== ENCOUNTER → 2024-03-19 10:00 | Outpatient (BNV) | payer OTHER, SELFPAY | PROVIDERS: Emergency Provider Emergency Medicine; PCP Internal Medicine; Visit Provider Radiology Diagnostic Radiology | DX: K59.00 Constipation, unspecified (principal) | CPT/HCPCS: 74018 ==

== ENCOUNTER 2024-04-23 14:25 | Outpatient (AMB) | payer OTHER, SELFPAY ==
--- OUTSIDE RECORDS SUMMARY | 2024-04-23 14:27 | XMS_ITS | Clinical Summary ---
Author Organization [facility] Address [address] [place] [address] Care Team Providers Care Director Meetings Name Role Phone Unavailable Primary Care Provider Unavailabl e Social History Tobacco Use Types Packs/Day Years Used Date Smoking Tobacco: Never Assessed Sex and Gender Information Value Date Recorded Sex Assigned at Not on file Legal Sex Male 9:10 PM EST Gender Identity Not on file Sexual Orientation Not on file Plan of Treatment Health Maintenance Due Date Last Done Comments DTaP,Tdap,and Td Vaccines (1 - Tdap) 1972 Zoster Vaccines (1 of 2) 06/04/2003 Pneumococcal Vaccine: 50+ Ye ars (1 of 1 - PCV) 2018 Abdominal Aortic Aneurysm (A AA) Screen 04/04/2023 Cholesterol Screening (Lipid Panel) 04/04/2023 Colorectal Cancer Screening: Colonoscopy 04/04/2023 Depression Screening 04/04/2023 Falls Risk Assessment 04/04/2023 Hepatitis C Screening 04/04/2023 Social Influencers of Health Screening 04/04/2023 COVID-19 Vaccine ( - 2023-2 5 season) 2023 Influenza Vaccine (#1) 2023 RSV Immunization Patients 60 + Years Old (1 - 1-dose 75+ series) 2028 HIB Vaccines Aged Out No longer eligi ble based on patient's age to complete this topic HPV Vaccines Aged Out No longer eligi ble based on patient's age to complete this topic Hepatitis A Vaccines Aged Out No long er eligible based on patient's age to complete this topic Hepatitis B Vaccines Aged Out No long er eligible based on patient's age to complete this topic IPV Vaccines Aged Out No longer eligi ble based on patient's age to complete this topic MMR Vaccines Aged Out No longer eligi ble based on patient's age to complete this topic Meningococcal ACWY Vaccine Aged Out N o longer eligible based on patient's age to complete this topic RSV Immunization Patients Un lashawn 20 months Aged Out No longer eligible b ased on patient's age to complete this topic Varicella Vaccines Aged Out No longer eligible based on patient's age to complete this topic
--- OUTSIDE RECORDS SUMMARY | 2024-04-23 14:27 | XMS_ITS | Clinical Summary ---
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 2 Active atorvastatin (Lipitor) 80 MG tablet Take 80 mg by mouth in the morning. 2 Active Blood Glucose Monitoring Suppl (ONE TOUCH ULTRA 2) w/Device kit USE TO CHECK BLOOD SUGAR THREE TIMES DAILY 2 Active cholecalcifero l (Vitamin D-3) 50 MCG (2000 UT) capsule TAKE 1 CAPSULE BY MOUTH EVERY DAY FOR 90 DAYS 2 Active clotrimazole-b etamethasone (Lotrisone) cream APPLY TOPICALLY TO THE AFFECTED AREA TWICE DAILY FOR 15 DAYS 2 Active cyanocobalamin (Vitamin B-12) 1000 MCG tablet Take 1,000 mcg by mouth in the morning. 2 Active Trulicity 1.5 MG/0.5ML solution pen-injector INJECT ONE PEN (=1.5MG) SUBCUTANEOUSLY ONCE A WEEK DIRECTED 2 Active DULoxetine (Cymbalta) [address] capsule Take 30 mg by mouth in the morning. 2 Active FeroSul 325 (65 Fe) MG tablet Take 1 tablet by mouth in the morning. 2 Active fluticasone (Flonase) 50 MCG/ACT nasal spray SHAKE LIQUID AND USE 1 SPRAY IN EACH NOSTRIL DAILY 2 Active gabapentin (Neurontin) 400 MG capsule Take 800 mg by mouth in the morning and at bedtime. 2 Active OneTouch Ultra test strip TEST BLOOD SUGAR THREE TIMES DAILY 2 Active Lantus SoloStar 100 UNIT/ML pen ADMINISTER 80 UNITS UNDER THE SKIN TWICE DAILY 2 Active insulin lispro (HumaLOG) 100 UNIT/ML injection INJECT 35 UNITS UNDER THE SKIN TWICE DAILY 2 Active B-D ULTRAFINE III SHORT PEN 31G X 8 MM misc USE TO INJECT 3 TIMES DAILY 2 Active lisinopril 10 MG tablet Take 10 mg by mouth in the morning. 2 Active metoprolol tartrate (Lopressor) 50 MG tablet Take 50 mg by mouth in the morning and at bedtime. 2 Active oxybutynin XL (Ditropan-XL) 5 MG 24 hr tablet Take 5 mg by mouth in the morning. 2 Active PARoxetine (Paxil) 40 MG tablet Take 40 mg by mouth in the morning. 2 Active polyethylene glycol, PEG, 3350 (Glycolax) 17 GM/SCOOP powder DISSOLVE 17 GRAMS IN LIQUID AND TAKE BY MOUTH DAILY 2 Active tamsulosin (Flomax) 0.4 MG 24 hr capsule Take 0.4 mg by mouth in the morning. 2 Active Immunizations Name Administration Dates Next Due Influenza High-dose Quadrivalent Preservative Fr ee 02/27/2022 Influenza Whole 12/27/2005 Influenza injectable quadriv alent IIV4 with preservative 02/25/2018,11/20/2016 Influenza injectable quadrivalent preservative f ree 01/10/2021 Influenza, High Dose Seasonal, Preservative Free 12/15/2018 Influenza, seasonal, injectable, preservative fr ee 05/04/2012 Pneumococcal Conjugate PCV 20 05/22/2022 Pneumococcal Polysaccharide PPSV23 01/10/2001 RSV Bivalent 04/17/2023 Tdap 03/22/2016 Zoster, Recombinant 05/22/2022,02/27/2022 Social History Tobacco Use Types Packs/Day Years Used Date Smoking Tobacco: Former Cigarettes 1 30 0 06/12/1975 - 06/11/2005 Passive Smoke Exposure: Never Smokeless Tobacco: Never Tobacco Cessation:Counseling Given: Not Answered Alcohol Use Standard Drinks/Week Comments Not Currently 12 (1 standard drink = 0.6 oz pu re alcohol) Sex and Gender Information Value Date Recorded Sex Assigned at Male 01/07/2022 10:14 AM EDT Legal Sex Male 10:14 AM EDT Gender Identity Male 03/18/2022 9:09 AM EST Sexual Orientation Choose not to disclose 2021 10:14 AM EDT Last Filed Vital Signs Vital Sign Reading Time Taken Comments Blood Pressure 120/64 05/31/2022 3:14 PM EDT Pulse 76 03/29/2022 8:49 AM EST Temperature - - Respiratory Rate - - Oxygen Saturation - - Inhaled Oxygen Concentration - - Weight - - Height - - Body Mass Index - - Plan of Treatment Health Maintenance Due Date Last Done Comments CT Colonography 1953 Colonoscopy 1953 Colorectal Cancer Screening 1953 Dental X-Ray: Bitewings 1953 Depression Screening 1953 FIT DNA/Cologuard 1953 FIT 1953 FOBT 1953 Lipid Panel 1953 SDOH Screening 1953 Sigmoidoscopy 1953 Alcohol/Substance Use Screening 1965 Hepatitis C Screening 06/04/1971 Dental Oral Exam 08/16/2022 02/14/2022 Dental Prophylaxis 08/16/2022 02/14/2022 Tobacco Screening 06/01/2023 05/31/2022 COVID-19 Vaccine ( season) 2023 Influenza Vaccine (#1) 2023 , 01/10/2021, 12/15/2018, Additional history exists Dental X-Ray: Full Mouth 05/14/2025 05/13/2022 DTaP/Tdap/Td Vaccines (2 - Td or Tdap) 03/22/2026 03/22/2016 Pneumococcal Vaccine: 50+ Years Completed 05/22/2022, 01/10/2001 Zoster Vaccines Completed 05/22/2022, 02/27/2022 RSV Patients and Patients Aged 60 years or older Completed 04/17/2023 HIB Vaccines Aged Out No longer eligi [...] patient's age to complete this topic Meningococcal Vaccine Aged Out No renetta rajesh eligible based on patient's age to complete this topic RSV under 20 months Aged Out No longe r eligible based on patient's age to complete this topic Rotavirus Vaccines Aged Out No longer eligible based on patient's age to complete this topic Procedures Procedure Name Priority Date/Time Associated Diagnosis Comments PANORAMIC RADIOGRAPHIC IMAGE Routine 05/13/2022 10:00 AM EST Edentulous maxilla Partially edentulous mandible, class I edentulism PROPHYLAXIS - ADULT Routine 02/14/2022 8 :00 AM EST PERIODIC ORAL EVALUATION - ESTABLISHED PATIENT Routine 02/14/2022 8:00 AM EST from Last 3 Months or Most Recently Relevant to Health Maintenance [place] [phone] DENTAL - [facility]
--- OUTSIDE RECORDS SUMMARY | 2024-04-23 14:27 | XMS_ITS ---
Author Name Tammy Vega NP Address [address] [place] [address] Phone [phone] Organization 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 Role Phone Cale Vegakiara Unavailable [phone] Unavailable Unavailable Unavailable Unavailable Unavailable Unavailable [facility] Unavailable Unavailable Unavailable Unavailable Jerry Persaud Unavailable [phone] Reason for Referral Not Available Allergies, adverse reactions, alerts Allergen Type Reaction Severity Status Onset Date HYDROmorphone HCl Allergy to substance (disorder) Anxiety Mild Active N/A History of medication use Medication Class Instructions Start Date End Date OneTouch Ultra Strip USE TO TEST THREE T IMES DAILY 2021-03-21 No Data Available DULoxetine 30 mg Cap delayed rel TAKE 1 CAPSULE BY MOUTH DAILY 2021-09-07 2022-10-18 VITAMIN B-12 1000MCG TABLETS N/B TAKE 1 TABLET BY MOUTH EVERY DAY 2021-09-07 No Data Available VITAMIN D3 2000UNIT CAPSULES TAKE 1 CAPS ULE BY MOUTH EVERY DAY FOR 90 DAYS 2021-09-07 2022-10-18 Metoprolol Tartrate 50 mg Tab take 1 tab let orally twice daily 2021-09-12 No Data Available Tamsulosin 0.4 mg Cap 1 capsule orally o ne time daily 2021-09-12 No Data Available Aspirin Low Dose 81 mg Tab delayed rel TAKE 1 TABLET BY MOUTH DAILY 2021-09-12 No Data Available Gabapentin 400 mg Cap 1 capsules orally TID 2021-03-28 No Data Available Lantus SoloStar 100 UNIT/ML Solution Pen-injector Subcutaneous ADMINISTER 60 UNITS UNDER THE SKIN IN THE MORNING, AND 56 IN THE EVENING. 2021-05-14 No Data Available B-D PEN NDL SHRT [id number](07/23) ANNAMARIE USE TO INJECT 3 TIMES DAILY 2021-06-052023-12-12 Clotrimazole-Betamethasone 1-0.05 % Crm APPLY TOPICALLY TO THE AFFECTED AREA TWICE DAILY FOR 15 DAYS 2021-11-26 No Data Available Lisinopril 10 mg Tab TAKE 1 TABLET BY [facility] DAILY 2022-02-05 No Data Available Trulicity 1.5 mg/0.5ML Solution Pen-injector ADMINISTER 1.5 MG UNDER THE SKIN EVERY WEEK 2022-01-23 2022-10-14 Fluticasone Propionate 50 MCG/ACT Suspension Nasal 1 puffs inhaled orally 1x per day 2022-02-19 No Data Available Atorvastatin Calcium 80 mg Tab take 1 tablet orally once daily 2022-02-19 No Data Available Vitamin B-12 1000 MCG Tab TAKE 1 TABLET BY MOUTH EVERY DAY 2022-04-25 No Data Available Oxybutynin Chloride ER 10 mg Tab ER 24hr TAKE 1 TABLET BY MOUTH ONCE DAILY 2022-04-25 No Data Available Insulin Lispro (1 Unit Dial) 100 UNIT/ML Solution Pen-injector Subcutaneous INJECT 2-8 UNITS SUBCUTANEOUSLY TWICE DAILY DIRECTED 2022-03-12 No Data Available OneTouch Delica Plus [id number] Miscellaneous TEST BLOOD SUGAR THREE TIMES DAILY 2022-03-13 No Data Available UltiCare Pen Needle 31 gauge x 5/16 USE THREE TIMES DAILY DIRECTED 2022-03-12 2023-12-12 Omeprazole 40 mg Cap delayed rel TAKE 1 CAPSULE BY MOUTH EVERY DAY 2022-06-10 No Data Available FreeStyle Iwona 2 Sensor Miscellaneous USE DIRECTED. CHANGE EVERY 14 DAYS. 2022-06-12 No Data Available Amoxicillin-Pot Clavulanate 875/125 mg Tab TAKE 1 TABLET BY MOUTH TWICE DAILY 2022-07-05 No Data Available PARoxetine 40 mg Tab TAKE 1 TABLET BY [facility] DAILY 2022-07-12 No Data Available Polyethylene Glycol 3350 17 GM Packet Mix 1 packet in 8 ounces of water, juice, coffee or tea and drink once a day 2022-07-14 No Data Available Vitamin D3 50 mcg (2,000 unit) capsule TAKE 1 CAPSULE BY MOUTH DAILY 2021-09-07 No Data Available predniSONE 20 mg Tab TAKE 2 TABLETS BY [facility] DAILY x 3days 2022-10-11 2022-10-18 Aspirin 81 mg Tab delayed rel take 1 tab let orally once daily 2022-10-14 No Data Available Albuterol Sulfate HFA 108 (9 0 Base) MCG/ACT Aerosol Solution Inhalation 2 puffs Q 4-6H PRN cough, wheezing 2022-10-14 No Data Available Diclofenac Sodium 1 % Gel 4 grams topica lly to affected area 4 times per day PRN 2023-04-04 No Data Available hydrOXYzine 25 mg Tab take 1 tablets ora lly every 6 hours as needed for moderate to severe anxiety 2023-04-04 2023-12-10 hydrOXYzine 25 mg Tab ADVISED TO HOLD ta ke 1 tablets orally every 6 hours as needed for moderate to severe anxiety 2023-04-04 No Data Available Docusate Sodium 100 mg Cap TAKE 1 CAPSUL E BY MOUTH TWICE DAILY 2023-03-08 No Data Available UltiCare Pen Needle 32 gauge x 5/32 USE THREE TIMES DAILY 2023-04-02 2023-12-12 Trulicity 1.5 mg/0.5ML Solution Pen-injector INJECT ONE PEN (=1.5MG) SUBCUTANEOUSLY ONCE A WEEK DIRECTED 2022-08-06 No Data Available Esomeprazole Magnesium 40 mg Cap delayed rel TAKE 1 CAPSULE BY MOUTH EVERY DAY 2023-05-26 No Data Available Flexeril (cyclobenzaprine) 1 0 mg ADVISED TO HOLD UNLESS ABSOLUTELY NECESSARY 1 po TID prn 2023-12-10 2023-12-18 Naproxen 500 mg Tab 1 tablet by mouth tw ice a day 2023-12-10 No Data Available Dicyclomine 20 mg Tab 1 tablet orally 2 times a day PRN 2023-12-10 No Data Available Metoclopramide 10 mg Tab 1 tablet orally 3 times per day before meals and QHS PRN 2023-12-10 No Data Available BD ULTRA-FINE SHAJI PEN NEEDL E 32 GAUGE X 5/32 USE THREE TIMES DAILY 2023-04-02 2023-12-12 TechLITE Pen Needle 32 gauge x 5/32 USE THREE TIMES DAILY 2023-04-02 2023-12-12 Phenazopyridine 200 mg Tab TAKE 1 TABLET BY MOUTH THREE TIMES DAILY FOR 2 DAYS 2023-11-04 No Data Available Cefuroxime Axetil 250 mg Tab TAKE 1 TABL ET BY MOUTH TWICE DAILY FOR 7 DAYS 2023-11-04 No Data Available prednisoLONE Acetate 1 % Suspension INSTILL 1 DROP IN THE RIGHT EYE THREE TIMES DAILY FOR 2 WEEKS 2023-11-14 No Data Available Cyclobenzaprine 10 mg Tab TAKE 1 TABLET BY MOUTH THREE TIMES DAILY NEEDED FOR MUSCLE SPASMS 2023-12-09 No Data Available metFORMIN ER 500 mg Tab ER 24hr TAKE 1 TABLET BY MOUTH EVERY DAY 2023-12-12 No Data Available Tresiba FlexTouch 200 UNIT/M L Solution Pen-injector INJECT 100 UNITS SUBCUTANEOUSLY EVERY DAY 2023-12-12 No Data Available glucose 4 gram chewable tablet CHEW 4 TABLETS NEEDED FOR low blood sugar (LESS THAN 70mg/dL) EVERY 15 MINUTES UNTIL SYMPTOMS IMPROVE 2023-12-12 No Data Available Lidocaine 5 % Patch APPLY 1 PATCH TOPICA LLY TO SKIN, LEAVE ON FOR 12 HOURS AND OFF FOR 12 HOURS DIRECTED 2023-12-25 No Data Available TRUEplus Glucose 4 GM Tab Chewable CHEW 4 TABLETS NEEDED FOR low blood sugar (LESS THAN 70mg/dL) EVERY 15 MINUTES UNTIL SYMPTOMS IMPROVE 2023-12-12 No Data Available Pentips 32 gauge x 5/32 needle USE THREE TIMES DAILY 2023-04-02 No Data Available Pentips Pen Needle 32 gauge x 5/32 USE THREE TIMES DAILY 2023-04-02 No Data Available LORazepam 1 mg Tab TAKE 1 TABLET BY SHANNAN TH AT BEDTIME NEEDED FOR ANXIETY OR for SLEEP 2024-03-03 No Data Available Problem List Problem Status Onset Date Resolved Date BPH (benign prostatic hyperplasia) Active 2021-03 2-13 N/A Hyperlipidemia Active 2022-02-19 N/A Morbid (severe) obesity due to excess calories Active 2022-02-25 N/A Coronary artery disease Active 2022-02-23 N/A Diabetic peripheral neuropat hy associated with type 2 diabetes mellitus Active 2022-02-19 N/A Altered mental state Active 2023-07-31 N/A Other [facility] other [facility] care Active 2023-03-26 N/A MDD (major depressive disord er), recurrent episode, moderate Active 2023-04-04 N/A Osteoarthritis, multiple sites Active 2023-12-18 N/A Unsteady gait Active 2023-12-18 N/A Fall, initial encounter Active 2023-04-04 N/A Diabetes mellitus with other complicationsHLD Active 2022-02-19 N/A Chronic obstructive airway d iseasePulmonary emphysema, unspecified emphysema type Active 2022-02-19 N/ A Hypertension Active 2022-02-19 N/A History of recent hospitalization Active 2024-02 N/A Declining functional status andFrequent falls Active 2023-12-10 N/A Anxiety Active 2024-03-08 N/A Upper respiratory infection Active 2024-03-08 N/A Low back pain Active 2022-02-23 N/A Other problems related to co dical facilities and other health care Active 2024-03-08 N/A Encounters Encounters Type Facility Date of Service Diagnosis/Co mplaint New patient,40-59min; chronic exacerbation, 2 stable chronic or 1 acute illness add add modifier 95 for video (do not use for phone, instead use [id number]) [facility] Morbid (severe) obesity due to excess caloriesBody mass index (BMI) 40.0-44.9, adultChronic obstructive pulmonary disease, unspecifiedEnlarged prostate without lower urinary tract symptomsType 2 diabetes mellitus with diabetic polyneuropathyEssential (primary) hypertensionHyperlipidemia, unspecifiedMajor depressive disorder, single episode, in full remissionLow back pain, unspecifiedAthscl heart disease of [place] coronary artery w/o ang pctrsType 2 diabetes mellitus with other specified complicationLong term (current) use of insulin New patient,40-59min; chronic exacerbation, 2 stable chronic or 1 acute illness add add modifier 95 for video (do not use for phone, instead use [id number]) [facility] New patient,40-59min; chronic exacerbation, 2 stable chronic or 1 acute illness add add modifier 95 for video (do not use for phone, instead use [id number]) [facility] New patient,40-59min; chronic exacerbation, 2 stable chronic or 1 acute illness add add modifier 95 for video (do not use for phone, instead use [id number]) [facility] New patient,40-59min; chronic exacerbation, 2 stable chronic or 1 acute illness add add modifier 95 for video (do not use for phone, instead use [id number]) [facility] New patient,40-59min; chronic exacerbation, 2 stable chronic or 1 acute illness add add modifier 95 for video (do not use for phone, instead use [id number]) [facility] [place] 02[place]2022 RN, CN or CP time with patient by phone; use with 1111F, BP, A1c or other CPTII codes [facility] [place] 10/14/2022 Encounter for other specifie d aftercare RN, CN or CP time with patient by phone; use with 1111F, BP, A1c or other CPTII codes [facility] [place] 10/14/2022 Estab. patient 30-39min; chronic exacerbation, 2 stable chronic or 1 acute illness add add modifier 95 for video, (do not use for phone, instead use [id number]) [facility] [place]18[place]2022 Type 2 diabetes mellitus wit h other specified complicationHyperlipidemia, unspecifiedEmphysema, unspecifiedType 2 diabetes mellitus with diabetic polyneuropathyMajor depressive disorder, single episode, in full remissionMorbid (severe) obesity due to excess caloriesBody mass index (BMI) 40.0-44.9, adultEssential (primary) hypertensionLow back pain, unspecifiedEnlarged prostate without lower urinary tract symptomsCOVID-19 Estab. patient 30-39min; chronic exacerbation, 2 stable chronic or 1 acute illness add add modifier 95 for video, (do not use for phone, instead use [id number]) [facility] [place] Estab. patient 30-39min; chronic exacerbation, 2 stable chronic or 1 acute illness add add modifier 95 for video, (do not use for phone, instead use [id number]) [facility] [place] Estab. patient 30-39min; chronic exacerbation, 2 stable chronic or 1 acute illness add add modifier 95 for video, (do not use for phone, instead use [id number]) [facility] [place]18[place] Estab. patient 30-39min; chronic exacerbation, 2 stable chronic or 1 acute illness add add modifier 95 for video, (do not use for phone, instead use [id number]) [facility] [place] Estab. patient 30-39min; chronic exacerbation, 2 stable chronic or 1 acute illness add add modifier 95 for video, (do not use for phone, instead use [id number]) [facility] [place] Estab. patient 30-39min; chronic exacerbation, 2 stable chronic or 1 acute illness add add modifier 95 for video, (do not use for phone, instead use [id number]) [facility] [place] Estab. patient 30-39min; chronic exacerbation, 2 stable chronic or 1 acute illness add add modifier 95 for video, (do not use for phone, instead use [id number]) [facility] [place] 10[place]18[place] Estab. patient 30-39min; chronic exacerbation, 2 stable chronic or 1 acute illness add add modifier 95 for video, (do not use for phone, instead use [id number]) [facility] [place] 10[place]18[place] Estab. patient 30-39min; chronic exacerbation, 2 stable chronic or 1 acute illness add add modifier 95 for video, (do not use for phone, instead use [id number]) [facility] [place] 10[place]18[place]22 Unlisted special service; to be used for medical record reviews and reporting CPTII codes (1111F, etc) [facility] [place] 11/25/2022 Other specified health statu s Unlisted special service; to be used for medical record reviews and reporting CPTII codes (1111F, etc) [facility] [place] 11/25/2022 Unlisted special service; to be used for medical record reviews and reporting CPTII codes (1111F, etc) [facility] [place] 11/25/2022 No Data Available [facility] [place] 02/24/2023 Type 2 diabetes mellitus wit h other specified complicationEmphysema, unspecifiedEnlarged prostate without lower urinary tract symptomsType 2 diabetes mellitus with diabetic polyneuropathyEssential (primary) hypertensionHyperlipidemia, unspecifiedMajor depressive disorder, single episode, in full remissionLow back pain, unspecifiedAthscl heart disease of [place] coronary artery w/o ang pctrsMorbid (severe) obesity due to excess caloriesBody mass index (BMI) 40.0-44.9, adult No Data Available [facility]20[place] No Data Available [facility] No Data Available [facility] No Data Available [facility]20[place] No Data Available [facility] No Data Available [facility]2023 Type 2 diabetes mellitus wit h diabetic polyneuropathyType 2 diabetes mellitus with other specified complicationHyperlipidemia, unspecifiedLong term (current) use of insulinMorbid (severe) obesity due to excess caloriesBody mass index (BMI) 40.0-44.9, adultMajor depressive disorder, recurrent, moderateEmphysema, unspecifiedEnlarged prostate without lower urinary tract symptomsEssential (primary) hypertensionLow back pain, unspecifiedOther problems related to medical facilities and other health careUnspecified fall, initial encounterAnxiety disorder, unspecified No Data Available [facility]2023 No Data Available [facility] No Data Available [facility]20[place] No Data Available [facility] 04[place]04[place]20[place] No Data Available [facility]04[place]20[place] No Data Available [facility] 04/04[place]2023 No Data Available [facility] 04[place]04[place]2023 No Data Available [facility] 05/02/2023 Type 2 diabetes mellitus wit h other specified complicationEmphysema, unspecifiedEnlarged prostate without lower urinary tract symptomsType 2 diabetes mellitus with diabetic polyneuropathyEssential (primary) hypertensionHyperlipidemia, unspecifiedLow back pain, unspecifiedAthscl heart disease of [place] coronary artery w/o ang pctrsBody mass index (BMI) 40.0-44.9, adultMorbid (severe) obesity due to excess caloriesOther problems related to medical facilities and other health careUnspecified fall, initial encounterAnxiety disorder, unspecifiedMajor depressive disorder, recurrent, moderate No Data Available [facility] 05[place]2023 No Data Available [facility] 05[place] No Data Available [facility] 05/[place]20[place] No Data Available [facility] 05/[place]20[place] No Data Available [facility] 05/[place]20[place] No Data Available [facility] 05[place]2023 Type 2 diabetes mellitus wit h diabetic polyneuropathyType 2 diabetes mellitus with other specified complicationHyperlipidemia, unspecifiedEmphysema, unspecifiedMorbid (severe) obesity due to excess caloriesBody mass index (BMI) 40.0-44.9, adultMajor depressive disorder, recurrent, moderateEnlarged prostate without lower urinary tract symptomsEssential (primary) hypertensionLow back pain, unspecifiedOther problems related to medical facilities and other health careAnxiety disorder, unspecifiedUnspecified fall, subsequent encounter No Data Available [facility] 05[place]2023 No Data Available [facility] 05[place]20[place] No Data Available [facility]20[place] No Data Available [facility]20[place] No Data Available [facility] 05[place]20[place] No Data Available [facility] 07[place]/2023 Type 2 diabetes mellitus wit h other specified complicationHyperlipidemia, unspecifiedLong term (current) use of insulinLong-term (current) use of injectable non-insulin antidiabetic drugsOther problems related to medical facilities and other health care No Data Available [facility] 07/[place]/2023 Altered mental status, unspecified No Data Available [facility] 08/26/2023 Altered mental status, unspecifiedOther problems related to medical facilities and other health care No Data Available [facility] [place] 10[place]02[place]2023 Type 2 diabetes mellitus wit h other specified complicationHyperlipidemia, unspecifiedOther problems related to medical facilities and other health careAltered mental status, unspecified Estab. patient 30-39min; chronic exacerbation, 2 stable chronic or 1 acute illness add add modifier 95 for video, (do not use for phone, instead use [id number]) [facility]2023 Type 2 diabetes mellitus wit h other specified complicationEmphysema, unspecifiedEnlarged prostate without lower urinary tract symptomsType 2 diabetes mellitus with diabetic polyneuropathyEssential (primary) hypertensionHyperlipidemia, unspecifiedLow back pain, unspecifiedMorbid (severe) obesity due to excess caloriesOther problems related to medical facilities and other health careBody mass index (BMI) 40.0-44.9, adultAnxiety disorder, unspecifiedMajor depressive disorder, recurrent, moderateAltered mental status, unspecifiedRepeated fallsOther malaiseChondrocostal junction syndrome [tietze]Unspecified abdominal painOther specified health statusPatient's noncompliance with other medical treatment and regimen due to unspecified reason Estab. patient 30-39min; chronic exacerbation, 2 stable chronic or 1 acute illness add add modifier 95 for video, (do not use for phone, instead use [id number]) [facility] Estab. patient 30-39min; chronic exacerbation, 2 stable chronic or 1 acute illness add add modifier 95 for video, (do not use for phone, instead use [id number]) [facility] Estab. patient 30-39min; chronic exacerbation, 2 stable chronic or 1 acute illness add add modifier 95 for video, (do not use for phone, instead use [id number]) [facility] [place] Estab. patient 30-39min; chronic exacerbation, 2 stable chronic or 1 acute illness add add modifier 95 for video, (do not use for phone, instead use [id number]) [facility] [place]20[place] Estab. patient 30-39min; chronic exacerbation, 2 stable chronic or 1 acute illness add add modifier 95 for video, (do not use for phone, instead use [id number]) [facility]20[place] Estab. patient 30-39min; chronic exacerbation, 2 stable chronic or 1 acute illness add add modifier 95 for video, (do not use for phone, instead use [id number]) [facility]20[place] Estab. patient 30-39min; chronic exacerbation, 2 stable chronic or 1 acute illness add add modifier 95 for video, (do not use for phone, instead use [id number]) [facility] 12[place]20[place] Estab. patient 30-39min; chronic exacerbation, 2 stable chronic or 1 acute illness add add modifier 95 for video, (do not use for phone, instead use [id number]) [facility] 12[place]2023 Estab. patient 30-39min; chronic exacerbation, 2 stable chronic or 1 acute illness add add modifier 95 for video, (do not use for phone, instead use [id number]) [facility] 12[place]10[place]2023 No Data Available [facility] [place] 12[place]18[place]2023 Major depressive disorder, recurrent, moderateType 2 diabetes mellitus with other specified complicationHyperlipidemia, unspecifiedPolyosteoarthritis, unspecifiedUnsteadiness on feetAnxiety disorder, unspecifiedOther problems related to medical facilities and other health careLow back pain, unspecifiedUnspecified fall, initial encounter No Data Available [facility] [place] 12/18[place]2023 No Data Available [facility] [place] 12/18[place]2023 No Data Available [facility] [place] 12/18[place]2023 No Data Available [facility] [place] 12/18[place]2023 No Data Available [facility] 01/14/2024 Essential (primary) hypertensionType 2 diabetes mellitus with other specified complicationNicotine dependence, unspecified, in remissionHyperlipidemia, unspecifiedOther problems related to medical facilities and other health care No Data Available [facility] 01/14/2024 No Data Available [facility] [place] 01/14[place]2024 No Data Available [facility] [place] No Data Available [facility] [place] 01/14[place]2024 No Data Available [facility] [place] 01/14/2024 No Data Available [facility] [place] 02/27/2024 Other malaiseRepeated fallsPersonal history of other medical treatment No Data Available [facility] [place] 02/27/2024 No Data Available [facility] [place] 02/27/2024 No Data Available [facility] [place] 02/27/2024 No Data Available [facility] [place] 03/08/2024 Anxiety disorder, unspecifiedAcute upper respiratory infection, unspecifiedOther problems related to medical facilities and other health care No Data Available [facility] [place] 03/08/2024 No Data Available [facility] [place] 03/08/20[place] Estab. patient 10-29min; 1 minor problem; add add modifier 95 for video, modifier 93 for phone [facility] [place] 03/12/2024 Acute upper respiratory infection, unspecifiedOther problems related to medical facilities and other health care Estab. patient 10-29min; 1 minor problem; add add modifier 95 for video, modifier 93 for phone [facility] [place] 03/12/2024 Estab. patient 10-29min; 1 minor problem; add add modifier 95 for video, modifier 93 for phone [facility] [place] 04[place]07/2024 Low back pain, unspecifiedOt her problems related to medical facilities and other health care Vital Signs Date of Collection Vitals 2022-02-19 11:14:30 Height - 162.56 cmWe ight - 109.77 kgBody Mass Index (BMI) - 41.54 kg/m2 2022-10-18 13:25:11 Height - 162.56 cmWe ight - 108.86 kgBody Mass Index (BMI) - 41.2 kg/m2BP Diastolic - 64.0 mm[Hg]BP Systolic - 120.0 mm[Hg] 2023-02-24 07:37:55 Weight - 108.86 kgBo dy Mass Index (BMI) - 41.2 kg/m2Pain Scale - 0.0 {score} 2023-04-04 08:03:10 Weight - 108.86 kgBo dy Mass Index (BMI) - 41.2 kg/m2BP Diastolic - 64.0 mm[Hg]BP Systolic - 120.0 mm[Hg]Pain Scale - 4.0 {score} 2023-05-02 06:52:53 Weight - 108.86 kgBo dy Mass Index (BMI) - 41.2 kg/m2Pain Scale - 4.0 {score} 2023-05-20 09:16:58 Weight - 108.86 kgBo dy Mass Index (BMI) - 41.2 kg/m2Pain Scale - 0.0 {score} 2023-12-10 06:39:26 BP Diastolic - 76.0 mm[Hg]BP Systolic - 150.0 mm[Hg]Heart Rate - 56.0 /min 2023-12-18 09:44:24 Height - 162.56 cmWe ight - 108.86 kgBody Mass Index (BMI) - 41.2 kg/m2BP Systolic - 140.0 mm[Hg]Pain Scale - 2.0 {score} 2024-01-14 12:22:45 Height - 162.56 cmWe ight - 104.33 kgBody Mass Index (BMI) - 39.48 kg/m2Pain Scale - 0.0 {score} 2024-02-27 07:10:08 Pain Scale - 0.0 {sc ore} Social History Social History Social History Observation Description Effec tive Time Current Smoking Status Former smoker 2024-04-10 4 Sex Male Gender identity Man History of Procedures Procedures Service Procedure code Service date Servicing provider Phone# New patient,40-59min; chronic exacerbation, 2 stable chronic or 1 acute illness add add modifier 95 for video (do not use for phone, instead use 61108-48) [id number] 2022-02-19 No Data Available No Data Availa ble Medication List Documented (1159F) 1159F 2022-02-19 No Data Available No Data Colette ilable Medication Review by prescribing provider or pharmacist documented (1160F) 1160F 2022-02-19 No Data Available No Data Colette ilable Pain Assessment - Pain Documented on a Pain Scale (1125F) 1125F 2022-02-19 No Data Available No Data Colette ilable Advance Care Directive Advance care planning discussion documented in the medical record (1158F) 1158F 2022-02-19 No Data Available No Data Availa ble BMI obtained (3008F) 3008F 2022-02-19 No Data Availab le No Data Available RN, CN or CP time with patient by phone; use with 1111F, BP, A1c or other CPTII codes 28758 2022-10-14 No Data Available No Data Avai lable Medications prescribed in hospital were reviewed and reconciled against what they were taking prior to admission during today's visit. (1111F) 1111F 2022-10-14 No Data Available No Data Availa ble Estab. patient 30-39min; chronic exacerbation, 2 stable chronic or 1 acute illness add add modifier 95 for video, (do not use for phone, instead use 15694-40) [id number] 2022-10-18 No Data Available No Data Availa ble Medication List Documented (1159F) 1159F 2022-10-18 No Data Available No Data Colette ilable Medication Review by prescribing provider or pharmacist documented (1160F) 1160F 2022-10-18 No Data Available No Data Colette ilable BMI obtained (3008F) 3008F 2022-10-18 No Data Availab le No Data Available Advance Care Directive Advance care planning discussion documented in the medical record (1158F) 1158F 2022-10-18 No Data Available No Data Availa ble Advance care planning discussed and documented ? advance care plan or surrogate decision-maker was documented in the medical record. (1123F) 1123F 2022-10-18 No Data Available No Data Availa ble Medications prescribed in hospital were reviewed and reconciled against what they were taking prior to admission during today's visit. (1111F) 1111F 2022-10-18 No Data Available No Data Availa ble SBP < 130 (3074F) 3074F 2022-10-18 No Data Available No Data Available DBP <80 (3078F) 3078F 2022-10-18 No Data Available No Data Available No Data Available 1125 2022-10-18 No Data Available No Data Available Unlisted special service; to be used for medical record reviews and reporting CPTII codes (1111F, etc) 94934 2022-11-25 No Data Available No Data Availa ble DBP <80 (3078F) 3078F 2022-11-25 No Data Available No Data Available SBP < 130 (3074F) 3074F 2022-11-25 No Data Available No Data Available No Data Available [id number] 2023-02-24 No Data Available No Data Available Medication List Documented (1159F) 1159F 2023-02-24 No Data Available No Data Colette ilable Functional Status Assessed (1170F) 1170F 2023-02-24 No Data Available No Data Avail able Pain Assessment - NO pain present (1126F) 1126F 2023-02-24 No Data Available No Data A vailable Advance Care Directive Advance care planning discussion documented in the medical record (1158F) 1158F 2023-02-24 No Data Available No Data Availa ble BMI obtained (3008F) 3008F 2023-02-24 No Data Availab le No Data Available No Data Available 2023-04-04 No Data Available No Data Available Functional Status Assessed (1170F) 1170F 2023-04-04 No Data Available No Data Avail able Medication List Documented (1159F) 1159F 2023-04-04 No Data Available No Data Colette ilable Pain Assessment - Pain Documented on a Pain Scale (1125F) 1125F 2023-04-04 No Data Available No Data Colette ilable SBP < 130 (3074F) 3074F 2023-04-04 No Data Available No Data Available DBP <80 (3078F) 3078F 2023-04-04 No Data Available No Data Available Medications prescribed in hospital were reviewed and reconciled against what they were taking prior to admission during today's visit. (1111F) 1111F 2023-04-04 No Data Available No Data Availa ble BMI obtained (3008F) 3008F 2023-04-04 No Data Availab le No Data Available No Data Available 2023-05-02 No Data Available No Data Available Pain Assessment - Pain Documented on a Pain Scale (1125F) 1125F 2023-05-02 No Data Available No Data Colette ilable BMI obtained (3008F) 3008F 2023-05-02 No Data Availab le No Data Available Advance Care Directive Advance care planning discussion documented in the medical record (1158F) 1158F 2023-05-02 No Data Available No Data Availa ble Advance care planning discussed and documented ? advance care plan or surrogate decision-maker was documented in the medical record. (1123F) 1123F 2023-05-02 No Data Available No Data Availa ble Functional Status Assessed (1170F) 1170F 2023-05-02 No Data Available No Data Avail able No Data Available [id number] 2023-05-20 No Data Available No Data Available Functional Status Assessed (1170F) 1170F 2023-05-20 No Data Available No Data Avail able Medication List Documented (1159F) 1159F 2023-05-20 No Data Available No Data Colette ilable Medications prescribed in hospital were reviewed and reconciled against what they were taking prior to admission during today's visit. (1111F) 1111F 2023-05-20 No Data Available No Data Availa ble Pain Assessment - NO pain present (1126F) 1126F 2023-05-20 No Data Available No Data A vailable BMI obtained (3008F) 3008F 2023-05-20 No Data Availab le No Data Available No Data Available [id number] 2023-07-08 No Data Available No Data Available No Data Available 21274 2023-07-31 No Data Available No Data Available No Data Available 55178 2023-08-26 No Data Available No Data Available No Data Available [id number] 2023-10-02 No Data Available No Data Available Estab. patient 30-39min; chronic exacerbation, 2 stable chronic or 1 acute illness add add modifier 95 for video, (do not use for phone, instead use 15636-47) 61888 2023-12-10 No Data Available No Data Availa ble Medication List Documented (1159F) 1159F 2023-12-10 No Data Available No Data Colette ilable Medication Review by prescribing provider or pharmacist documented (1160F) 1160F 2023-12-10 No Data Available No Data Colette ilable BMI obtained (3008F) 3008F 2023-12-10 No Data Availab le No Data Available Advance Care Directive Advance care planning discussion documented in the medical record (1158F) 1158F 2023-12-10 No Data Available No Data Availa ble Advance care planning discussed and documented ? advance care plan or surrogate decision-maker was documented in the medical record. (1123F) 1123F 2023-12-10 No Data Available No Data Availa ble Pain Assessment - Pain Documented on a Pain Scale (1125F) 1125F 2023-12-10 No Data Available No Data Colette ilable SBP >= 140 3077F 2023-12-10 No Data Available No Data Available DBP <80 (3078F) 3078F 2023-12-10 No Data Available No Data Available Functional Status Assessed (1170F) 1170F 2023-12-10 No Data Available No Data Avail able No Data Available [id number] 2023-12-18 No Data Available No Data Available Medication List Documented (1159F) 1159F 2023-12-18 No Data Available No Data Colette ilable Pain Assessment - Pain Documented on a Pain Scale (1125F) 1125F 2023-12-18 No Data Available No Data Colette ilable BMI obtained (3008F) 3008F 2023-12-18 No Data Availab le No Data Available SBP >= 140 3077F 2023-12-18 No Data Available No Data Available No Data Available 13290 2024-01-14 No Data Available No Data Available Pain Assessment - NO pain present (1126F) 1126F 2024-01-14 No Data Available No Data A vailable Functional Status Assessed (1170F) 1170F 2024-01-14 No Data Available No Data Avail able BMI obtained (3008F) 3008F 2024-01-14 No Data Availab le No Data Available Advance Care Directive Advance care planning discussion documented in the medical record (1158F) 1158F 2024-01-14 No Data Available No Data Availa ble Advance care planning discussed and documented ? advance care plan or surrogate decision-maker was documented in the medical record. (1123F) 1123F 2024-01-14 No Data Available No Data Availa ble No Data Available [id number] 2024-02-27 No Data Available No Data Available Medications prescribed in hospital were reviewed and reconciled against what they were taking prior to admission during today's visit. (1111F) 1111F 2024-02-27 No Data Available No Data Availa ble Medication List Documented (1159F) 1159F 2024-02-27 No Data Available No Data Colette ilable Pain Assessment - NO pain present (1126F) 1126F 2024-02-27 No Data Available No Data A vailable No Data Available [id number] 2024-03-08 No Data Available No Data Available Medication List Documented (1159F) 1159F 2024-03-08 No Data Available No Data Colette ilable Medications prescribed in hospital were reviewed and reconciled against what they were taking prior to admission during today's visit. (1111F) 1111F 2024-03-08 No Data Available No Data Availa ble Estab. patient 10-29min; 1 minor problem; add add modifier 95 for video, modifier 93 for phone 94050 2024-03-12 No Data Available No Data Availa ble Medication List Documented (1159F) 1159F 2024-03-12 No Data Available No Data Colette ilable Estab. 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 [employer] 2023-12-18 has meals on wheels coming in 2023-12-18 Mental Status No Information Assessments Date of Service Assessments 2022-02-19 11:14:30 Type 2 diabetes beck itus with other specified complicationChronic obstructive airway diseaseBPH (benign prostatic hyperplasia)Diabetic peripheral neuropathy associated with type 2 diabetes mellitusHypertensionHyperlipidemiaMajor depressive disorder in remissionLow back painCoronary artery diseaseMorbid (severe) obesity due to excess calories 2022-10-18 13:25:11 Diabetes mellitus wi th other complications/HLDChronic obstructive airway diseasePulmonary emphysema, unspecified emphysema typeBPH (benign prostatic hyperplasia)Diabetic peripheral neuropathy associated with type 2 diabetes mellitusHypertensionHyperlipidemiaMajor depressive disorder in remissionLow back painMorbid (severe) obesity due to excess caloriesCOVID-19 2023-02-24 07:37:55 Diabetes mellitus wi th other complications/HLDChronic obstructive airway diseasePulmonary emphysema, unspecified emphysema typeBPH (benign prostatic hyperplasia)Diabetic peripheral neuropathy associated with type 2 diabetes mellitusHypertensionHyperlipidemiaMajor depressive disorder in remissionLow back painCoronary artery diseaseMorbid (severe) obesity due to excess calories 2023-04-04 08:03:10 Diabetes mellitus wi th other complications/HLDChronic obstructive airway diseasePulmonary emphysema, unspecified emphysema typeBPH (benign prostatic hyperplasia)Diabetic peripheral neuropathy associated with type 2 diabetes mellitusHypertensionHyperlipidemiaLow back painCoronary artery diseaseMorbid (severe) obesity due to excess caloriesOther problems related to medical facilities and other health careFall, initial encounterMDD (major depressive disorder), recurrent episode, moderate 2023-05-02 06:52:53 Diabetes mellitus wi th other complications/HLDChronic obstructive airway diseasePulmonary emphysema, unspecified emphysema typeBPH (benign prostatic hyperplasia)Diabetic peripheral neuropathy associated with type 2 diabetes mellitusHypertensionHyperlipidemiaLow back painCoronary artery diseaseMorbid (severe) obesity due to excess caloriesOther problems related to medical facilities and other health careFall, initial encounterMDD (major depressive disorder), recurrent episode, moderate 2023-05-20 09:16:58 Diabetes mellitus wi th other complications/HLDChronic obstructive airway diseasePulmonary emphysema, unspecified emphysema typeBPH (benign prostatic hyperplasia)Diabetic peripheral neuropathy associated with type 2 diabetes mellitusHypertensionHyperlipidemiaLow back painCoronary artery diseaseMorbid (severe) obesity due to excess caloriesOther problems related to medical facilities and other health careFall, initial encounterMDD (major depressive disorder), recurrent episode, moderate 2023-07-08 11:58:49 Diabetes mellitus wi th other complications/HLDOther problems related to medical facilities and other health care 2023-07-31 07:55:39 Altered mental state 2023-08-26 13:38:01 Altered mental state Other problems related to medical facilities and other health care 2023-10-02 12:45:19 Diabetes mellitus wi th other complications/HLDOther problems related to medical facilities and other health careAltered mental state 2023-12-10 06:39:26 Diabetes mellitus wi th other complications/HLDChronic obstructive airway diseasePulmonary emphysema, unspecified emphysema typeBPH (benign prostatic hyperplasia)Diabetic peripheral neuropathy associated with type 2 diabetes mellitusHypertensionHyperlipidemiaLow back painCoronary artery diseaseMorbid (severe) obesity due to excess caloriesOther problems related to medical facilities and other health careFall, initial encounterMDD (major depressive disorder), recurrent episode, moderateAltered mental stateDeclining functional status andFrequent fallsFlank pain and costochondritisPoor compliance and Needs assistance with community resources 2023-12-18 09:44:24 Osteoarthritis, mult iple sitesUnsteady gaitMDD (major depressive disorder), recurrent episode, moderateFall, initial encounterOther problems related to medical facilities and other health careLow back painDiabetes mellitus with other complicationsHLD 2024-01-14 12:22:45 Diabetes mellitus wi th other complicationsHLDHypertensionOther problems related to medical facilities and other health care 2024-02-27 07:10:08 Patient Education to avoid future hospitalization: Call [facility] if symptoms of illness develop.History of recent hospitalizationDeclining functional status andFrequent falls 2024-03-08 07:30:24 Patient Education to avoid future hospitalization: Call [facility] if symptoms of illness develop.AnxietyUpper respiratory infectionOther problems related to medical facilities and other health care 2024-03-12 07:31:36 Upper respiratory in fectionOther problems related to medical facilities and other health care 2024-04-07 05:25:01 Other problems relat ed to medical facilities and other health careLow back painOther problems related to medical facilities and other health care Plan of Care Date of Service Plans 2022-02-19 11:14:30 Medication Review by prescribing provider or pharmacist documented (1160F)Medication List Documented (1159F)Functional Status Assessed (1170F)Advance Care Directive Advance care planning discussion documented in the medical record (1158F)BMI obtained (3008F)Televideo new patient,40-59min; chronic exacerbation, 2 stable chronic or 1 acute illness add modifier 95Pain Assessment - Pain Documented (1125F)Continue to see PCP. Follow-up with [facility] as needed for any acute or disease education needs that may arise.StableNo A1c on EMR, Pt denies monitoring BGLantus, TrulicityContinue to f/u w/ track helper q3-6 months, monitor BG levels, discussed dietary and exercise interventions, contact us if develop hyperglycemia s/sxStableAlbuterol, FloventMonitor O2, take medications as Rx, continue f/u care w/ PCP [id number], contact us if you develop respiratory distressStableTamsulosinMonitor urine output, continue taking medication as prescribed, f/u PCP [id number], contact us if develop acute decrease in urine outputStableGabapentin, Lantus, TrulicityMonitor sensation of BLE, continue taking medications as Rx, monitor BG levels, discussed diabetic dietary and exercise interventions, contact us if neuropathy worsensStablePt denies monitoring BPLisinopril, MetoprololDiscussed dietary and exercise interventions, f/u w/ PCP q6-12 months, contact us develop emergent HTN s/sxStableAtorvastatin Discussed dietary and exercise interventions, f/u w/ PCP q6-12 monthsStablePHQ-2: score 0CymbaltaContinue taking medication as Rx, discussed using effective coping mechanisms and benefits of potential verbal therapyStableCymbaltaContinue taking medications, practice core ROM exercises as tolerable, contact us if develop increase in low back pain without reliefSuspectBMI-41.54encourage healthy food choices 2022-10-14 11:57:28 Oct 15, 2022, 12:00 P M 2022-10-18 13:25:11 Medication Review by prescribing provider or pharmacist documented (1160F)Medication List Documented (1159F)Functional Status Assessed (1170F)Advance Care Directive Advance care planning discussion documented in the medical record (1158F)BMI obtained (3008F)SBP < 130 (3074F)DBP <80 (3078F)Televideo 30-39min; chronic exacerbation, 2 stable chronic or 1 acute illness add modifier 95Advance care planning discussed and documented ? advance care plan or surrogate decision-maker was documented in the medical record. (1123F)Advance care planning discussed and documented in the medical record ? beneficiary/patient did not wish to or was unable to provide an advance care plan or name a surrogate decision-maker. (1124F)Pain Assessment - NO pain documented (1126F)Medications prescribed in hospital were reviewed and reconciled against what they were taking prior to admission during today's visit. (1111F)Medications prescribed in hospital were reviewed and reconciled against what they were taking prior to admission during today's visit. (1111F)Continue to see PCP. Follow-up with [facility] as needed for any acute or disease education needs that may arise.Type 2 diabetes mellitus with HLDNo A1c on EMR, Pt denies monitoring BGLantus, TrulicityContinue to f/u w/ track helper q3-6 months, monitor BG levels, discussed dietary and exercise interventions, contact us if develop hyperglycemia s/sxStableAlbuterol, FloventMonitor O2, take medications as Rx, continue f/u care w/ PCP [id number], contact us if you develop respiratory distressStableTamsulosinMonitor urine output, continue taking medication as prescribed, f/u PCP [id number], contact us if develop acute decrease in urine outputStableGabapentin, Lantus, TrulicityMonitor sensation of BLE, continue taking medications as Rx, monitor BG levels, discussed diabetic dietary and exercise interventions, contact us if neuropathy worsensStablePt denies monitoring BPLisinopril, MetoprololDiscussed dietary and exercise interventions, f/u w/ PCP q6-12 months, contact us develop emergent HTN s/sxStableAtorvastatin Discussed dietary and exercise interventions, f/u w/ PCP q6-12 monthsStablePHQ-2: score 0CymbaltaContinue taking medication as Rx, discussed using effective coping mechanisms and benefits of potential verbal therapyStableCymbaltaContinue taking medications, practice core ROM exercises as tolerable, contact us if develop increase in low back pain without reliefBMI-41.54encourage healthy food choicesdiagnosed 10/08/2022Improving, tested negative 2022-11-25 08:14:28 Unlisted special ser vice; to be used for medical record reviews and reporting CPTII codes (1111F, etc)3074FDBP <80 (3078F) 2023-02-24 07:37:55 Phone (patient, pare nt, or guardian); 5-10 minutes of medical discussion (no modifier 95)Continue to see PCP. Follow-up with [facility] as needed for any acute or disease education needs that may arise 30/09.Type 2 diabetes mellitus with HLDNo A1c on EMR, Pt denies monitoring BGLantus, TrulicityContinue to f/u w/ track helper q3-6 months, monitor BG levels, discussed dietary and exercise interventions, contact us if develop hyperglycemia s/sxStableAlbuterol, FloventMonitor O2, take medications as Rx, continue f/u care w/ PCP [id number], contact us if you develop respiratory distressStableTamsulosinMonitor urine output, continue taking medication as prescribed, f/u PCP [id number], contact us if develop acute decrease in urine outputStableGabapentin, Lantus, TrulicityMonitor sensation of BLE, continue taking medications as Rx, monitor BG levels, discussed diabetic dietary and exercise interventions, contact us if neuropathy worsensStablePt denies monitoring BPLisinopril, MetoprololDiscussed dietary and exercise interventions, f/u w/ PCP q6-12 months, contact us develop emergent HTN s/sxStableAtorvastatin Discussed dietary and exercise interventions, f/u w/ PCP q6-12 monthsStablePHQ-2: score 0CymbaltaContinue taking medication as Rx, discussed using effective coping mechanisms and benefits of potential verbal fajjabl96/18/23: feels more calm now that he's home; he feels safe at home. Previously having night sanchez. (h/o nightmares since family started passing away: dad, friends, brother). Reports he is having better night sleep now. denies SI, just wants to be home.StableCymbaltaContinue taking medications, practice core ROM exercises as tolerable, contact us if develop increase in low back pain without reliefSuspectAdvised to eat a healthy diet include emphasizing fruits, vegetables, whole grains, poultry, fish and nuts and limiting sugary foods and beverages. Eating this way may help increase fiber, which is also beneficial. A diet high in fiber can help lower cholesterol levels by as much as 10 percent. DASH diet. Increase exercise to 30-45 min q day. Decrease sugary drinks, stop soda intake. Limit ETOH intake. If you smoke, quit smoking.BMI-41.54encourage healthy food choices 2023-04-04 08:03:10 Phone (patient, pare nt, or guardian); 5-10 minutes of medical discussion (no modifier 95)Medications prescribed in hospital were reviewed and reconciled against what they were taking prior to admission during today's visit. (1111F)SBP < 130 (3074F)DBP <80 (3078F)BMI obtained (3008F)Pain Assessment - Pain Documented (1125F)Medications prescribed in hospital were reviewed and reconciled against what they were taking prior to admission during today's visit. (1111F)Continue to see PCP. Follow-up with [facility] as needed for any acute or disease education needs that may arise 30/09.Type 2 diabetes mellitus with HLDNo A1c on EMR, Pt denies monitoring BGLantus, TrulicityContinue to f/u w/ track helper q3-6 months, monitor BG levels, discussed dietary and exercise interventions, contact us if develop hyperglycemia s/sxCONTINGENCY PLANMember to call for the following symptoms: Blood sugar <70/ Blood sugar >300/ More thirsty than usual/ Urinating more than usualPlanned intervention:StableAlbuterol, FloventMonitor O2, take medications as Rx, continue f/u care w/ PCP [id number], contact us if you develop respiratory distressStableTamsulosinMonitor urine output, continue taking medication as prescribed, f/u PCP [id number], contact us if develop acute decrease in urine outputStableGabapentin, Lantus, TrulicityMonitor sensation of BLE, continue taking medications as Rx, monitor BG levels, discussed diabetic dietary and exercise interventions, contact us if neuropathy worsensStablePt denies monitoring BPLisinopril, MetoprololDiscussed dietary and exercise interventions, f/u w/ PCP q6-12 months, contact us develop emergent HTN s/sxStableAtorvastatin Discussed dietary and exercise interventions, f/u w/ PCP q6-12 monthsStableCymbaltaContinue taking medications, practice core ROM exercises as tolerable, contact us if develop increase in low back pain without reliefSuspectAdvised to eat a healthy diet include emphasizing fruits, vegetables, whole grains, poultry, fish and nuts and limiting sugary foods and beverages. Eating this way may help increase fiber, which is also beneficial. A diet high in fiber can help lower cholesterol levels by as much as 10 percent. DASH diet. Increase exercise to 30-45 min q day. Decrease sugary drinks, stop soda intake. Limit ETOH intake. If you smoke, quit smoking.BMI-41.54encourage healthy food choicesWhen member to call: 1. If bp is elevated sbp>150; dbp>90 or symptomatic-h/a, dizziness, cp, sob. 2. if there is a fall 3. if BS >300 or BS<90 or symptomatic; i.e., dizzy, off balance , shaky, general weakness. 4. if UTI symptoms arise-urinary frequency, dysuria, low abd pain. 5. if pain in knees increases/ or joint pain increased Please remember to call CBContinue to see PCP. Follow-up with [facility] as needed for any acute or disease education needs that may arise 30/09.what should be done when the member calls: see each individual diagnosis for contingency planfall 04/03/23: from chair neck pain today 10did not hit his head taking tylenol arthritis BS: 99, 120's Is no longer using trulicity (d/t N/V) DME ordered in ER-shower chair and walker ANXIETY: taking gabapentin (for RLS)Large Anxiety component (exacerbated end of year 2022)taking paroxetine 40mg 02/24/23: feels more calm now that he's home; he feels safe at home. Previously having night sanchez. (h/o nightmares since family started passing away: dad, friends, brother). Reports he is having better night sleep now. denies SI, just wants to be home. 04/04/23: feels anxiety much improved, but does have panic attacks 2x/ week 2023-05-02 06:52:53 Phone (patient, pare nt, or guardian); 5-10 minutes of medical discussion (no modifier 95)Continue to see PCP. Follow-up with [facility] as needed for any acute or disease education needs that may arise 30/09.Type 2 diabetes mellitus with HLDNo A1c on EMR, Pt denies monitoring BGLantus, TrulicityContinue to f/u w/ track helper q3-6 months, monitor BG levels, discussed dietary and exercise interventions, contact us if develop hyperglycemia s/sxCONTINGENCY PLANMember to call for the following symptoms: Blood sugar <70/ Blood sugar >300/ More thirsty than usual/ Urinating more than usualPlanned intervention:StableAlbuterol, FloventMonitor O2, take medications as Rx, continue f/u care w/ PCP [id number], contact us if you develop respiratory distressStableTamsulosinMonitor urine output, continue taking medication as prescribed, f/u PCP [id number], contact us if develop acute decrease in urine outputStableGabapentin, Lantus, TrulicityMonitor sensation of BLE, continue taking medications as Rx, monitor BG levels, discussed diabetic dietary and exercise interventions, contact us if neuropathy worsen05/02/23: Worse symptom out of all chronic issues is neuropathy . will f/u with pcp today. plan was to increase gabapentin during last OV, but never received the increase at the pharmacy. Will discuss increase josé manuel with pcp and recommend lyrica if gabapentin not helpingStablePt denies monitoring BPLisinopril, MetoprololDiscussed dietary and exercise interventions, f/u w/ PCP q6-12 months, contact us develop emergent HTN s/sxStableAtorvastatin Discussed dietary and exercise interventions, f/u w/ PCP q6-12 monthsStableCymbaltaContinue taking medications, practice core ROM exercises as tolerable, contact us if develop increase in low back pain without reliefSuspectAdvised to eat a healthy diet include emphasizing fruits, vegetables, whole grains, poultry, fish and nuts and limiting sugary foods and beverages. Eating this way may help increase fiber, which is also beneficial. A diet high in fiber can help lower cholesterol levels by as much as 10 percent. DASH diet. Increase exercise to 30-45 min q day. Decrease sugary drinks, stop soda intake. Limit ETOH intake. If you smoke, quit smoking.BMI-41.54encourage healthy food choicesWhen member to call: 1. If bp is elevated sbp>150; dbp>90 or symptomatic-h/a, dizziness, cp, sob. 2. if there is a fall 3. if BS >300 or BS<90 or symptomatic; i.e., dizzy, off balance , shaky, general weakness. 4. if UTI symptoms arise-urinary frequency, dysuria, low abd pain. 5. if pain in knees increases/ or joint pain increased Please remember to call CBContinue to see PCP. Follow-up with [facility] as needed for any acute or disease education needs that may arise 30/09.what should be done when the member calls: see each individual diagnosis for contingency planfall 04/03/23: from chair neck pain today 06/17did not hit his head taking tylenol arthritis BS: 99, 120's Is no longer using trulicity (d/t N/V) DME ordered in ER-shower chair and walker ANXIETY: taking gabapentin (for RLS)Large Anxiety component (exacerbated end of year 2022)taking paroxetine 40mg 02/24/23: feels more calm now that he's home; he feels safe at home. Previously having night sanchez. (h/o nightmares since family started passing away: dad, friends, brother). Reports he is having better night sleep now. denies SI, just wants to be home. 04/04/23: feels anxiety much improved, but does have panic attacks 2x/ week 05/02/23: hydroxyzine is helping with panic attacks PRN 2023-05-20 09:16:58 Phone (patient, pare nt, or guardian); 5-10 minutes of medical discussion (no modifier 95)Medications prescribed in hospital were reviewed and reconciled against what they were taking prior to admission during today's visit. (1111F)Continue to see PCP. Follow-up with [facility] as needed for any acute or disease education needs that may arise 30/09.Type 2 diabetes mellitus with HLDNo A1c on EMR, Pt denies monitoring BGLantus, TrulicityContinue to f/u w/ track helper q3-6 months, monitor BG levels, discussed dietary and exercise interventions, contact us if develop hyperglycemia s/sxCONTINGENCY PLANMember to call for the following symptoms: Blood sugar <70/ Blood sugar >300/ More thirsty than usual/ Urinating more than usualPlanned intervention: 05/20/23: had episodes of hypoglycemia in STR; have decreased lantus to 60Units per nightStableAlbuterol, FloventMonitor O2, take medications as Rx, continue f/u care w/ PCP [id number], contact us if you develop respiratory distressStableTamsulosinMonitor urine output, continue taking medication as prescribed, f/u PCP [id number], contact us if develop acute decrease in urine outputStableGabapentin, Lantus, TrulicityMonitor sensation of BLE, continue taking medications as Rx, monitor BG levels, discussed diabetic dietary and exercise interventions, contact us if neuropathy worsen05/02/23: Worse symptom out of all chronic issues is neuropathyStablePt denies monitoring BPLisinopril, MetoprololDiscussed dietary and exercise interventions, f/u w/ PCP q6-12 months, contact us develop emergent HTN s/sxStableAtorvastatin Discussed dietary and exercise interventions, f/u w/ PCP q6-12 monthsStableCymbaltaContinue taking medications, practice core ROM exercises as tolerable, contact us if develop increase in low back pain without reliefSuspectAdvised to eat a healthy diet include emphasizing fruits, vegetables, whole grains, poultry, fish and nuts and limiting sugary foods and beverages. Eating this way may help increase fiber, which is also beneficial. A diet high in fiber can help lower cholesterol levels by as much as 10 percent. DASH diet. Increase exercise to 30-45 min q day. Decrease sugary drinks, stop soda intake. Limit ETOH intake. If you smoke, quit smoking.BMI-41.54encourage healthy food choicesWhen member to call: 1. If bp is elevated sbp>150; dbp>90 or symptomatic-h/a, dizziness, cp, sob. 2. if there is a fall 3. if BS >300 or BS<90 or symptomatic; i.e., dizzy, off balance , shaky, general weakness. 4. if UTI symptoms arise-urinary frequency, dysuria, low abd pain. 5. if pain in knees increases/ or joint pain increased Please remember to call [facility] to see PCP. Follow-up with [facility] as needed for any acute or disease education needs that may arise 30/09.what should be done when the member calls: see each individual diagnosis for contingency planfall 04/03/23: from chair neck pain today 4/10did not hit his head taking tylenol arthritis BS: 99, 120's Is no longer using trulicity (d/t N/V) DME ordered in ER-shower chair and walker ANXIETY: taking gabapentin (for RLS)Large Anxiety component (exacerbated end of year 2022)taking paroxetine 40mg 02/24/23: feels more calm now that he's home; he feels safe at home. Previously having night sanchez. (h/o nightmares since family started passing away: dad, friends, brother). Reports he is having better night sleep now. denies SI, just wants to be home. 04/04/23: feels anxiety much improved, but does have panic attacks 2x/ week 05/02/23: hydroxyzine is helping with panic attacks PRN 2023-07-08 11:58:49 Phone (patient, pare nt, or guardian); 5-10 minutes of medical discussion (no modifier 95)Continue to see PCP. Follow-up with [facility] as needed for any acute or disease education needs that may arise 30/09.Type 2 diabetes mellitus with HLDNo A1c on EMR, Pt denies monitoring BGLantus, TrulicityContinue to f/u w/ track helper q3-6 months, monitor BG levels, discussed dietary and exercise interventions, contact us if develop hyperglycemia s/sxCONTINGENCY PLANMember to call for the following symptoms: Blood sugar <70/ Blood sugar >300/ More thirsty than usual/ Urinating more than usualPlanned intervention: 05/20/23: had episodes of hypoglycemia in STR; have decreased lantus to 60Units per night 07/08/23: Reports episodic hypoglycemia episode at night, causing him to eat more (unhealthy) and wake up with high BS levels in the 300's. Patient has not been compliant with insulin medication instructions. He has an appt with endo on August 07. I reviewed the current dosing and instructions of the insulins and contingency plan.When member to call: 1. If bp is elevated sbp>150; dbp>90 or symptomatic-h/a, dizziness, cp, sob. 2. if there is a fall 3. if BS >300 or BS<90 or symptomatic; i.e., dizzy, off balance , shaky, general weakness. 4. if UTI symptoms arise-urinary frequency, dysuria, low abd pain. 5. if pain in knees increases/ or joint pain increased Please remember to call CBContinue to see PCP. Follow-up with [facility] as needed for any acute or disease education needs that may arise 30/09.what should be done when the member calls: see each individual diagnosis for contingency plan 2023-07-31 07:55:39 Phone (patient, pare nt, or guardian); 5-10 minutes of medical discussion (no modifier 95)Continue to see PCP. Follow-up with [facility] as needed for any acute or disease education needs that may arise 30/09.07/31/23: Cg reports patient had AMS last week (unable to recall date) tx from the hospital to a halfway for advanced dementia per cg. I left a message to the patient's son Manuel for add. information. Placed member on hold due to placement. 2023-08-26 13:38:01 Phone (patient, pare nt, or guardian); 5-10 minutes of medical discussion (no modifier 95)Continue to see PCP. Follow-up with [facility] as needed for any acute or disease education needs that may arise 30/09.07/31/23: Cg reports patient had AMS last week (unable to recall date) tx from the hospital to a halfway for advanced dementia per cg. I left a message to the patient's son Manuel for add. information. Placed member on hold due to placement.08/26/23: Son reports that the patient returned home 2 weeks ago from SNF. The family has been providing 30/09 support but he reports that the patient needs more CATTLE MANAGER hours to continue to providing adequate care. I provided [facility] CC number for follow up. Denies any other concerns at this time. He reports that the patient requires care with all ADLs and reminders to eat and drink medications.When member to call: 1. If bp is elevated sbp>150; dbp>90 or symptomatic-h/a, dizziness, cp, sob. 2. if there is a fall 3. if BS >300 or BS<90 or symptomatic; i.e., dizzy, off balance , shaky, general weakness. 4. if UTI symptoms arise-urinary frequency, dysuria, low abd pain. 5. if pain in knees increases/ or joint pain increased Please remember to call CBContinue to see PCP. Follow-up with [facility] as needed for any acute or disease education needs that may arise 30/09.what should be done when the member calls: see each individual diagnosis for contingency plan 2023-10-02 12:45:19 Phone (patient, pare nt, or guardian); 5-10 minutes of medical discussion (no modifier 95)Continue to see PCP. Follow-up with [facility] as needed for any acute or disease education needs that may arise 30/09.Type 2 diabetes mellitus with HLDNo A1c on EMR, Pt denies monitoring BGLantus, TrulicityContinue to f/u w/ track helper q3-6 months, monitor BG levels, discussed dietary and exercise interventions, contact us if develop hyperglycemia s/sxCONTINGENCY PLANMember to call for the following symptoms: Blood sugar <70/ Blood sugar >300/ More thirsty than usual/ Urinating more than usualPlanned intervention: 05/20/23: had episodes of hypoglycemia in STR; have decreased lantus to 60Units per night 07/08/23: Reports episodic hypoglycemia episode at night, causing him to eat more (unhealthy) and wake up with high BS levels in the 300's. Patient has not been compliant with insulin medication instructions. He has an appt with endo on August 07. I reviewed the current dosing and instructions of the insulins and contingency plan.10/02/23: Son reports that the patient recently started with CATTLE MANAGER (niece) to help with his care. He was previously non-compliant with his medications and insulin; CATTLE MANAGER Crystal is helping with his medication management due to BS in 300's avg.When member to call: 1. If bp is elevated sbp>150; dbp>90 or symptomatic-h/a, dizziness, cp, sob. 2. if there is a fall 3. if BS >300 or BS<90 or symptomatic; i.e., dizzy, off balance , shaky, general weakness. 4. if UTI symptoms arise-urinary frequency, dysuria, low abd pain. 5. if pain in knees increases/ or joint pain increased Please remember to call CBContinue to see PCP. Follow-up with [facility] as needed for any acute or disease education needs that may arise 30/09.what should be done when the member calls: see each individual diagnosis for contingency plan07/31/23: Cg reports patient had AMS last week (unable to recall date) tx from the hospital to a halfway for advanced dementia per cg. I left a message to the patient's son Manuel for add. information. Placed member on hold due to placement.08/26/23: Son reports that the patient returned home 2 weeks ago from SNF. The family has been providing 24/7 support but he reports that the patient needs more CATTLE MANAGER hours to continue to providing adequate care. I provided [facility] CC number for follow up. Denies any other concerns at this time. He reports that the patient requires care with all ADLs and reminders to eat and drink medications. 10/02/23: Son reports that the patient's cognitive status has slightly improved and he is closer to his baseline. He requires additional care due to overall decline. 2023-12-10 06:39:26 Televideo 30-39min; chronic exacerbation, 2 stable chronic or 1 acute illness add modifier 95Functional Status Assessed (1170F)BMI obtained (3008F)Advance Care Directive Advance care planning discussion documented in the medical record (1158F)Advance care planning discussed and documented ? advance care plan or surrogate decision-maker was documented in the medical record. (1123F)Pain Assessment - Pain Documented (1125F)Continue to see PCP. Follow-up with [facility] as needed for any acute or disease education needs that may arise.Type 2 diabetes mellitus with HLDNo A1c on EMR, Pt denies monitoring BGLantus, TrulicityContinue to f/u w/ track helper q3-6 months, monitor BG levels, discussed dietary and exercise interventions, contact us if develop hyperglycemia s/sxCONTINGENCY PLANMember to call for the following symptoms: Blood sugar <70/ Blood sugar >300/ More thirsty than usual/ Urinating more than usualPlanned intervention: 05/20/23: had episodes of hypoglycemia in STR; have decreased lantus to 60Units per night 07/08/23: Reports episodic hypoglycemia episode at night, causing him to eat more (unhealthy) and wake up with high BS levels in the 300's. Patient has not been compliant with insulin medication instructions. He has an appt with endo on August 07. I reviewed the current dosing and instructions of the insulins and contingency plan.10/02/23: Son reports that the patient recently started with CATTLE MANAGER (niece) to help with his care. He was previously non-compliant with his medications and insulin; CATTLE MANAGER Crystal is helping with his medication management due to BS in 300's avg.StableAlbuterol, FloventMonitor O2, take medications as Rx, continue f/u care w/ PCP [id number], contact us if you develop respiratory distressStableTamsulosinMonitor urine output, continue taking medication as prescribed, f/u PCP [id number], contact us if develop acute decrease in urine outputStableGabapentin, Lantus, TrulicityMonitor sensation of BLE, continue taking medications as Rx, monitor BG levels, discussed diabetic dietary and exercise interventions, contact us if neuropathy worsen/: Worse symptom out of all chronic issues is neuropathyStablePt denies monitoring BPLisinopril, MetoprololDiscussed dietary and exercise interventions, f/u w/ PCP q6-12 months, contact us develop emergent HTN s/sx10//24BP 150/76 today but in pain and frustrated about reduced CATTLE MANAGER hours. Please keep a log and we will FU.StableAtorvastatin Discussed dietary and exercise interventions, f/u w/ PCP q6-12 monthsStableCymbaltaContinue taking medications, practice core ROM exercises as tolerable, contact us if develop increase in low back pain without reliefSuspectAdvised to eat a healthy diet include emphasizing fruits, vegetables, whole grains, poultry, fish and nuts and limiting sugary foods and beverages. Eating this way may help increase fiber, which is also beneficial. A diet high in fiber can help lower cholesterol levels by as much as 10 percent. DASH diet. Increase exercise to 30-45 min q day. Decrease sugary drinks, stop soda intake. Limit ETOH intake. If you smoke, quit smoking.BMI-41.54encourage healthy food choicesWhen member to call: If he falls or feels dizzy and is at danger of fallingIf bp is elevated sbp>150; dbp>90 or symptomatic-h/a, dizziness, cp, sob. if BS >300 or BS<90 or symptomatic; i.e., dizzy, off balance , shaky, general weakness. if UTI symptoms arise-urinary frequency, dysuria, low abd pain. if pain in knees increases/ or joint pain increased Please remember to call CBContinue to see PCP. Follow-up with [facility] as needed for any acute or disease education needs that may arise 30/09.what should be done when the member calls: see each individual diagnosis for contingency planfall 04/03/23: from chair neck pain today 10did not hit his head taking tylenol arthritis BS: 99, 120's Is no longer using trulicity (d/t N/V) DME ordered in ER-shower chair and walker ANXIETY: taking gabapentin (for RLS)Large Anxiety component (exacerbated end of year 2022)taking paroxetine 40mg 02/24/23: feels more calm now that he's home; he feels safe at home. Previously having night sanchez. (h/o nightmares since family started passing away: dad, friends, brother). Reports he is having better night sleep now. denies SI, just wants to be home. 04/04/23: feels anxiety much improved, but does have panic attacks 2x/ week 05/02/23: hydroxyzine is helping with panic attacks PRNPCA hours were reduced just as he is getting weaker and his walking is unsafe.Needs PT - asking PCP.Due to not enough CATTLE MANAGER presence, has fallen a number of times recently, and hurt his ribs badly.Also needs medication reminders. Reduced CATTLE MANAGER hours because they were sending meals on wheels. CATTLE MANAGER has been with him since August and has not been paid yet.WAS PRESCRIBED FLEXERIL Advised not to take due to risk of falls, unless absolutely necessary for pain, and then only half a tablet, and do not stand up (take at bedtime for example).ALso advised to hold hydroxyzine for similar reasons - FU w PCP re polypharmacy and FU w CB 1 month.Patient verbalized understanding. Caregiver verbalized understanding.fell and hurt ribs, no rib fracture per [facility] (per patient), but has pain in right rib areaPaoinful to cough.Advice to breathe deeply and make sure he coughs properly (with coughing pillow) if he has to cough, to reduce risk of pneumonia.Naproxen BID (with food)Patient verbalized understanding. Caregiver verbalized understanding.Reduced CATTLE MANAGER hours because they were sending meals on wheels but has not received the meals yet.Also needs medication reminders now that his CATTLE MANAGER is not there as much - at risk for noncompliance.Reduced CATTLE MANAGER hours because they were sending meals on wheels. CATTLE MANAGER has been with him since August and has not been paid yet.Messaged [facility] for assistance. 2023-12-18 09:44:24 Phone (patient, pare nt, or guardian); 5-10 minutes of medical discussion (no modifier 95)Continue to see PCP. Follow-up with [facility] as needed for any acute or disease education needs that may arise 30/09.at risk for falls uses PRN diclofenac gel, gabapentin, PRN naproxen Fall prevention TIPS: Wear sensible shoes. Remove home hazards (Get rid of all rugs/mats in your home). Light up your living space (keep a flash light next to your bed for night time). Use assistive devices.Unsteady gait R26.81 d/t OA M15.9, Low back pain M54.50at risk for fallsFall prevention TIPS: Wear sensible shoes. Remove home hazards (Get rid of all rugs/mats in your home). Light up your living space (keep a flash light next to your bed for night time). Use assistive devices.rollator walker ordered 12/18/23Large Anxiety component (exacerbated end of year 2022)taking paroxetine 40mg 02/24/23: feels more calm now that he's home; he feels safe at home. Previously having night sanchez. (h/o nightmares since family started passing away: dad, friends, brother). Reports he is having better night sleep now. denies SI, just wants to be home. 04/04/23: feels anxiety much improved, but does have panic attacks 2x/ week 05/02/23: hydroxyzine is helping with panic attacks PRN10.10.24: continues to see psychiatrist. Anxiety controlled with medications.fall 04/03/23: from chair neck pain today 10did not hit his head taking tylenol arthritis BS: 99, 120's Is no longer using trulicity (d/t N/V) DME ordered in ER-shower chair and walker ANXIETY: taking gabapentin (for RLS) 10.10.10-reports number of falls in past few months, Last fall one week ago. At times feels off-balanced, dizzy, lightheaded. will order walker/rollator today. Bedside commode also orderedmeds that are contributing to his fall risk: dicyclomine, cyclobenzaprine, gabapentin, hydroxyzine, oxybutynin. Will send via sms to his [facility] member to call: If he falls or feels dizzy and is at danger of fallingIf bp is elevated sbp>150; dbp>90 or symptomatic-h/a, dizziness, cp, sob. if BS >300 or BS<90 or symptomatic; i.e., dizzy, off balance , shaky, general weakness. if UTI symptoms arise-urinary frequency, dysuria, low abd pain. if pain in knees increases/ or joint pain increased Please remember to call CBContinue to see PCP. Follow-up with [facility] as needed for any acute or disease education needs that may arise 30/09.what should be done when the member calls: see each individual diagnosis for contingency planStableCymbaltaContinue taking medications, practice core ROM exercises as tolerable, contact us if develop increase in low back pain without reliefType 2 diabetes mellitus with HLDNo A1c on EMR, Pt denies monitoring BGLantus, TrulicityContinue to f/u w/ track helper q3-6 months, monitor BG levels, discussed dietary and exercise interventions, contact us if develop hyperglycemia s/sxCONTINGENCY PLANMember to call for the following symptoms: Blood sugar <70/ Blood sugar >300/ More thirsty than usual/ Urinating more than usualPlanned intervention: 05/20/23: had episodes of hypoglycemia in STR; have decreased lantus to 60Units per night 07/08/23: Reports episodic hypoglycemia episode at night, causing him to eat more (unhealthy) and wake up with high BS levels in the 300's. Patient has not been compliant with insulin medication instructions. He has an appt with endo on August 07. I reviewed the current dosing and instructions of the insulins and contingency plan.10/02/23: Son reports that the patient recently started with CATTLE MANAGER (niece) to help with his care. He was previously non-compliant with his medications and insulin; CATTLE MANAGER Crystal is helping with his medication management due to BS in 300's avg.12.18.23: reports his BS have decreased. Now <200 average. Is f/u wit pcp and reports good bs and good BP during visit no records available to review today 2024-01-14 12:22:45 Phone (patient, pare nt, or guardian); 5-10 minutes of medical discussion (no modifier 95)Pain Assessment - NO pain documented (1126F)Continue to see PCP. Follow-up with [facility] as needed for any acute or disease education needs that may arise 30/09.Type 2 diabetes mellitus with HLDNo A1c on EMR, Pt denies monitoring BGLantus, TrulicityContinue to f/u w/ track helper q3-6 months, monitor BG levels, discussed dietary and exercise interventions, contact us if develop hyperglycemia s/sxCONTINGENCY PLANMember to call for the following symptoms: Blood sugar <70/ Blood sugar >300/ More thirsty than usual/ Urinating more than usualPlanned intervention: 05/20/23: had episodes of hypoglycemia in STR; have decreased lantus to 60Units per night 07/08/23: Reports episodic hypoglycemia episode at night, causing him to eat more (unhealthy) and wake up with high BS levels in the 300's. Patient has not been compliant with insulin medication instructions. He has an appt with endo on August 07. I reviewed the current dosing and instructions of the insulins and contingency plan.10/02/23: Son reports that the patient recently started with CATTLE MANAGER (niece) to help with his care. He was previously non-compliant with his medications and insulin; CATTLE MANAGER Crystal is helping with his medication management due to BS in 300's [id number]: reports his BS have decreased. Now <200 average. Is f/u wit pcp and reports good bs and good BP during visit no records available to review today01/14/2024 patient visited track helper this week . patient states that his BG is controlled for the most part.StablePt denies monitoring BPLisinopril, MetoprololDiscussed dietary and exercise interventions, f/u w/ PCP q6-12 months, contact us develop emergent HTN s/sx1//24BP 150/76 today but in pain and frustrated about reduced CATTLE MANAGER hours. Please keep a log and we will FU.01/14/2024 patient states that his BP is controlled and take his medicationWhen member to call: If he falls or feels dizzy and is at danger of fallingIf bp is elevated sbp>150; dbp>90 or symptomatic-h/a, dizziness, cp, sob. if BS >300 or BS<90 or symptomatic; i.e., dizzy, off balance , shaky, general weakness. if UTI symptoms arise-urinary frequency, dysuria, low abd pain. if pain in knees increases/ or joint pain increased Please remember to call CBContinue to see PCP. Follow-up with [facility] as needed for any acute or disease education needs that may arise 30/09.what should be done when the member calls: see each individual diagnosis for contingency plan 2024-02-27 07:10:08 Discharge medication s reconciled with current medication listPhone (patient, parent, or guardian); 5-10 minutes of medical discussion (no modifier 95)Advance care planning discussed and documented ? advance care plan or surrogate decision-maker was documented in the medical record. ([id number])Advance care planning discussed and documented in the medical record ? beneficiary/patient did not wish to or was unable to provide an advance care plan or name a surrogate decision-maker. (1124F)PCP visit is planned for:Patient reports that on 02/12/2024 and was discharged the same date.- not admittedPatient reports that he was in the hospital due to having respiratoy infection- thought he had COVID-19, he fell at home and decided to get looked at.CATTLE MANAGER hours were reduced just as he is getting weaker and his walking is unsafe.Needs PT - asking PCP.Due to not enough CATTLE MANAGER presence, has fallen a number of times recently, and hurt his ribs badly.Also needs medication reminders. Reduced CATTLE MANAGER hours because they were sending meals on wheels. CATTLE MANAGER has been with him since August and has not been paid yet.WAS PRESCRIBED FLEXERIL Advised not to take due to risk of falls, unless absolutely necessary for pain, and then only half a tablet, and do not stand up (take at bedtime for example).ALso advised to hold hydroxyzine for similar reasons - FU w PCP re polypharmacy and FU w CB 1 month.Patient verbalized understanding. Caregiver verbalized understanding. 02/27/24 - Patient reports that he was in the hospital due to having respiratoy infection- thought he had COVID-19, he fell at home and decided to get looked at. He already followed up with PCP 2024-03-08 07:30:24 Discharge medication s reconciled with current medication listPhone (patient, parent, or guardian); 5-10 minutes of medical discussion (no modifier 95)PCP visit is planned for:Patient reports that he went into the ED on 03/03/24 for Anxiety, panic attack. The patient reports that he was given Lorazepam 10 tablets - LORazepam 1 mg Tab TAKE 1 TABLET BY MOUTH AT BEDTIME NEEDED FOR ANXIETY OR for SLEEP. He reports that he hasn't picked them up education on importance of picking up medication. Asked patient if he follows with psych or psychiatrist patient stated no. Declined referral. Patient educated on the importance of f/u with phycologist and psychiatrist , importance of medication compliance and not to stop abruptly. also patient made aware not to mix medications with alcohol. if patient is presenting an episode of anxiety to seek medical assistance or to call [facility].03/08/24 Patient reports fever, chills and congestion with coughing. - for about 1 week he has had symptoms and doesn't feel betterRx for azithromycin and benzonatate capsules sentPSYCH CONTINGENCY PLANLast updated: 03/08/2024Member to call for the following symptoms: Agitation/ Anxiety/ Insomnia/ Panic attacksPlanned intervention: Hydroxyzine (Vistaril) 25mg PO q6h PRN anxiety/ Encourage member to journal feelings/ Remind member of personal goal:/ Encourage use of home medication:/ Increase dose of current medication:/ Limit extra stimulation 2024-03-12 07:31:36 Phone (patient, pare nt, or guardian); 5-10 minutes of medical discussion (no modifier 95)Continue to see PCP. Follow-up with [facility] as needed for any acute or disease education needs that may arise 30/09.03/08/24 Patient reports fever, chills and congestion with coughing. - for about 1 week he has had symptoms and doesn't feel betterRx for azithromycin and Benzonatate capsules sent03/12/2024 Patient reports that respiratory infection has improved feeling much betterWhen member to call: If he falls or feels dizzy and is at danger of fallingIf bp is elevated sbp>150; dbp>90 or symptomatic-h/a, dizziness, cp, sob. if BS >300 or BS<90 or symptomatic; i.e., dizzy, off balance , shaky, general weakness. if UTI symptoms arise-urinary frequency, dysuria, low abd pain. if pain in knees increases/ or joint pain increased Please remember [facility]. [facility] any acute or disease education needs that may arise 30/09.what should be done when the member calls: see each individual diagnosis for contingency plan 2024-04-07 05:25:01 Estab. patient 10-29 min; 1 minor problem; add add modifier 95 for video, modifier 93 for phoneContinue to see PCP. [facility] for any acute or disease education needs that may arise 30/09.Add Contingency PlanStableCymbaltaContinue taking medications, practice core ROM exercises as tolerable, contact us if develop increase in low back pain without reliefER visit on 03/19/24 at [facility] for back pain. He reports feeling better, he will follow up with PCP. Denies any current concerns.When member to call: 1. If bp is elevated sbp>150; dbp>90 or symptomatic-h/a, dizziness, cp, sob. 2. if there is a fall 3. if BS >300 or BS<90 or symptomatic; i.e., dizzy, off balance , shaky, general weakness. 4. if UTI symptoms arise-urinary frequency, dysuria, low abd pain.5. Generalized body pain/aches.Please remember to call CBPSYCH CONTINGENCY PLANLast updated: 03/08/2024Member to call for the following symptoms: Agitation/ Anxiety/ Insomnia/ Panic attacksPlanned intervention: Hydroxyzine (Vistaril) 25mg PO q6h PRN anxiety/ Encourage member to journal feelings/ Remind member of personal goal:/ Encourage use of home medication:/ Increase dose of current medication:/ Limit extra stimulation Goals Date Goal 2022-02-19 Remember to monitor BP and BG levels daily, monitor progression of neuropathy 2022-02-19 Call me if if develo p hyperglycemia s/sx, emergent HTN s/sx, or respiratory distress 2022-02-19 Continue taking medi cations as prescribed and performs ADLs independently 2024-01-14 At least 50% of time spent counseling pt, discussing diagnosis, treatment plan, compliance, and coordinating followup care. Continue taking medications as directed and keep all follow up appointments with established PCP and Specialist 2024-02-27 Continue taking medi cations as directed and keep all follow up appointments with established PCP and Specialist. 2024-03-08 Continue taking medi cations as directed and keep all follow up appointments with established PCP and Specialist. 2024-03-12 Continue taking medi cations as directed and keep all follow up appointments with established PCP and Specialist. Health Concerns Date Concern 2024-04-07 Visit completed via audio by telephone. Patient/Guardian agreed to visit via telehealth.Time spent in visit: 2024-04-07 Most recent hospital stay(s) or ER visit(s) and precipitating factors: ER visit on 03/19/24 at [facility] for back pain. He reports feeling better, he will follow up with PCP.
[2024-04-23 14:30] VITALS: BP 110/80; PULSE 69; O2SAT 99; BMI 38.7
--- NOTE | 2024-04-23 14:30 | A.OFFPC_ITS ---
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 Project Management Required: No Accompanied by: Self / Same As Patient Allergies hydromorphone [Dilaudid] Adverse Reaction (Unknown, Verified 04/23/24 15:12) confusion From DILAUDID Adverse Reaction (Severe, Uncoded 04/23/24 15:12) CONFUSION/HALLUCIATIONS From PERCOCET Adverse Reaction (Intermediate, Uncoded 04/23/24 15:12) AGITATION Medication List - Last Reconciled 04/23/24 by Jerry Persaud MD [Active Mal guard pads 6 x 11 As directed] albuterol sulfate 90 mcg/actuation 2 puffs PO Q4-6H PRN aspirin 81 mg PO DAILY atorvastatin 80 mg PO DAILY blood sugar diagnostic ([employer]uch Ultra Test strips) test 3 times per day blood sugar diagnostic 1 strip miscellaneous TID blood-glucose meter (ShijiebangTouch Ultra2 Meter) test 3 times per day blood-glucose meter,continuous (FreeStyle [place] 3 Breda) as directed blood-glucose sensor (FreeStyle [place] 3 Sensor device) As directed cholecalciferol (vitamin D3) (Vitamin D3) 50 mcg PO DAILY [Cleansing wipes As directed] cyanocobalamin (vitamin B-12) 1,000 mcg PO DAILY 90 days dicyclomine 20 mg PO QID PRN [Disposable 30x30 polymer pads heavy floweds As directed] docusate sodium 100 mg PO BID PRN 30 days fluticasone propionate 50 mcg/actuation 1 spray intranasal DAILY gabapentin 400 mg PO TID glucose 16 grams (4 x 4 gram) PO Q15M hydroxyzine HCl 25 mg PO Q6H PRN 30 days insulin glargine (Lantus Solostar U-100 Insulin) subcutaneously 60 units every morning and 56 units every evening insulin lispro (Humalog KwikPen (U-100) Insulin) 15 - 20 units (0.15 - 0.2 mL) subcut .TIDAC insulin syr/ndl U100 half gareth Use 4 times daily lancets ([employer] Delica Lancets) As directed 3 times a day lidocaine 5% 1 patch topical DAILY lisinopril 10 mg PO DAILY 90 days lorazepam (Ativan) 1 mg PO BEDTIME PRN metaxalone 800 mg PO BEDTIME metformin ER 1,500 mg (3 x 500 mg) PO DAILY 90 days metoclopramide HCl (Reglan) 10 mg PO AC PRN metoprolol tartrate 50 mg PO BID [monthly medication organizer (med box) monthly medication organizer box; ] [Monthly Medication Organizer (Med-Box) ] naproxen 500 mg PO BID PRN omeprazole 40 mg PO DAILY ondansetron 4 mg PO Q8H PRN ondansetron HCl 4 mg PO Q6H PRN oxybutynin chloride ER 10 mg PO DAILY paroxetine HCl 40 mg PO DAILY pen needle, diabetic (Lite Touch Insulin Pen [place]) Use 3 times daily pen needle, diabetic (BD Ultra-Fine Original Pen Needle) 3 times daily pen needle, diabetic (BD Ultra-Fine Brittany Pen Needle) test 3 times daily phenazopyridine (Pyridium) 200 mg PO TID 2 days polyethylene glycol 3350 (Miralax) 17 grams PO DAILY PRN [Powder free synthetic exam gloves As directed] [Semi-Electric Hospital Bed As directed] [SHOWER CHAIR As directed] [SHOWER CHAIR As directed] tamsulosin (Flomax) 0.4 mg PO BEDTIME [WALKER As directed] walker As directed Tobacco use date assessed: 04/23/24 Last assessed Fall Risk: 04/23/24 Dental Screening Dental Screen Date: 04/23/24 HPI 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 HPI Details Patient comes in today for his follow-up visit - is accompanied again by his niece, who is also his ANALYTICAL TECHNICIAN They are currently requesting for him to have more hours of ANALYTICAL TECHNICIAN help as he is reportedly no longer able to care for himself and he is not able to manage his medications on his own States that he currently only gets 2 hours of ANALYTICAL TECHNICIAN help a day, which is severely inadequate Patient has been feeling very depressed lately and according to his niece, has also been experiencing frequent bouts of confusion as well as episodes of visual hallucinations States that patient often reports seeing people that are not actually present - patient states that these people do not talk back to him and he denies experiencing any auditory hallucinations/hearing voices His niece is also requesting for him to transfer to Dr. Caceres as his PCP due to language barrier (patient speaks very little Amharic) as his niece states that she tries to come in with him to his appointments but she also has some other commitments and may not be able to come in with him all the time and in those situations, they feel like patient is not able to express himself properly in Amharic States that they tried to transfer to Dr. Caceres a couple of months ago but patient missed his appointment with her and would like to know if they can try to transfer again to Dr. Caceres as his PCP Patient states that he currently feels okay He denies any headaches or dizziness Denies any exertional chest pains; reports that has been experiencing increased shortness of breath with exertion a few years now This appears to be due to a combination of his weight, physical decompensation, his chronic bilateral lower extremity pain and gait instability as it appears to take a lot of effort for him to move about No nausea/vomiting, no abdominal pain No change in bowel habits noted Needs a few of his Rx refilled He has no follow-up labs done recently - his most recent labs were done when he was admitted to the hospital back in February 2024 [facility] Medical History (Updated 04/25/24 @ 06:22 by Jerry Persaud MD) Anxiety Type 2 diabetes mellitus with neurologic complication Gastritis and duodenitis Vitamin B12 deficiency Hyperkalemia Intertrigo Major depressive disorder, recurrent Benign prostatic hyperplasia with urinary frequency Constipation Obstructive sleep apnea Vitamin D deficiency Diabetic polyneuropathy Diabetes mellitus Obesity (BMI 30-39.9) Benign essential hypertension Pure hypercholesterolemia Coronary artery disease Surgical History Hx of cataract extraction (~2011) History of quadruple bypass (~2005) Hx of cystoscopy History of prostate surgery (~12/04/10) Hx of cholecystectomy (~2007) Family History Father Lung cancer Mother Diabetes Hypertension Stomach cancer Social History Household Members: None Housing: Apartment Do you presently have visiting nurse or other home services: No Alcohol intake: never Patient Tobacco Use Status: Former Tobacco user e-Cigarette/Vaping Use: Never Used Second Hand Smoke Exposure: No Advance Directives Date on File: 07/24/23 service: No Current occupational status: disabled Cognitive needs: Yes (cane) Hearing needs: No Vision needs: Yes Questionnaire PHQ-9 Over the last 2 weeks, how often have you been bothered by any of the following problems? 1. Little interest or pleasure in doing things: not at all 2. Feeling down, depressed, or hopeless: not at all 3. Trouble falling or staying asleep, or sleeping too much: not at all 4. Feeling tired or having little energy: not at all 5. Poor appetite or overeating: not at all 6. Feeling bad about yourself - or that you are a failure or have let yourself or your family down: not at all 7. Trouble concentrating on things, such as reading the newspaper or watching television: not at all 8. Moving or speaking so slowly that other people could have noticed. Or the opposite - being so fidgety or restless that you have been moving around a lot more than usual: not at all 9. Thoughts that you would be better off or of hurting yourself in some way: not at all Total score: 0 Depression Screening Interpretation: Negative Depression Screening Done: Yes 27788 - PHQ-9 Billing: Yes Source: Developed by Drs. Steven Miller, Monie Garduno, Trevor Lin and colleagues, with an educational kwabena from [employer]. Thrive Questionnaire Date Thrive assessed: 04/23/24 I am a: Patient What is your living situation today?: I have a steady place to live Within the past 12 months, did the food you bought not last and you didn't have the money to get more?: Never true Within the past 12 months, did you worry whether your food would run out before you got money to buy more?: Never true Do you have trouble paying for medicines?: No Do you have trouble getting transportation to medical appointments?: No Do you have trouble paying your heating and electricity bill?: No Do you have trouble taking care of your child, family member or friend?: No Do you have trouble with day-to-day activities such as bathing, preparing meals, shopping, managing finances, etc.?: No Are you currently unemployed and looking for a job?: No Are you interested in more education?: No Please select the resources that you would like help with: None Currently or been in a relationship where the following occur: No concerns reported THRIVE Score: 0 AUDIT C Alcohol Use Questionnaire (AUDIT-C) 1. How often do you have a drink containing alcohol?: Never 3. How often do you have six or more drinks on one occasion?: Never Total Score: 0 Score Reviewed/Action Taken: Yes CHEL-7 AMB Questionnaire CHEL-7 Date CHEL - 7 assessed: 04/23/24 Feeling nervous, anxious, or on edge: 0 = Not at all Not being able to stop or control worryin = Not at all Worrying too much about different things: 0 = Not at all Trouble relaxin = Not at all Being so restless that it is hard to sit still: 0 = Not at all Becoming easily annoyed or irritable: 0 = Not at all Feeling afraid as if something awful might happen: 0 = Not at all Total CHEL-7 score (0-4 normal; 5-9 mild; 10-14 moderate; 15-21 severe): 0 Source: Developed by Drs. Steven Miller, Monie Garduno, Trevor Lin and colleagues, with an educational kwabena from [employer]. Review of Systems Const Denies chills, Reports difficulty sleeping, Reports fatigue, Denies fever(s) and Denies headache(s) ENT Denies dysphagia, Denies dizziness, Denies otalgia, Denies headache(s), Denies neck pain, Denies odynophagia and Denies sore throat Card Denies chest pain, Denies irregular heart rhythm, Denies palpitations and Reports dyspnea on exertion (mild) Resp Denies chest congestion, Denies cough and Reports dyspnea on exertion (mild) GI Denies abdominal pain, Denies constipation, Denies dysphagia, Denies heartburn, Denies diarrhea, Denies nausea, Denies odynophagia and Denies vomiting Denies difficulty urinating, Denies dysuria and Denies urinary frequency Musc Reports back pain (over the lower back - chronic), Reports arthralgias (over the posterior left hip ) and Denies neck pain Skin/Breast Denies rash Neuro Reports confusion (on and off - unable to manage his own meds due to cognitive issues), Denies dizziness, Denies headache(s) and Reports radicular pain (in both legs, on and off) Psych Reports confusion (on and off - unable to manage his own meds due to cognitive issues), Reports depression and Reports visual hallucinations Endo Reports fatigue and Denies palpitations Physical exam (Primary Care) Vital Signs: Last Vital Signs Pulse 69 04/23/24 14:30 BP 110/80 04/23/24 14:30 Pulse Ox 99 04/23/24 14:30 Oxygen Delivery Method Room Air 04/23/24 14:30 BMI result Body Mass Index 38.7 Tobacco/Smoking Status: Tobacco use Status Tobacco use date assessed 04/23/24 04/23/24 14:32 Patient Tobacco Use Status Former Tobacco user 04/23/24 14:32 e-Cigarette/Vaping Use Never Used 04/23/24 14:32 PHQ-9: PHQ-9 Score PHQ-9: Total score 0 04/23/24 15:23 Depression Screening Interpretation: Negative Thrive Assessment: Date of Thrive Assessment Date Thrive assessed 04/23/24 04/23/24 14:32 Currently or been in a relationship where the following occur: No concerns reported Const General: no acute distress and confusion (on and off - unable to manage his own meds due to cognitive issues) Orientation/consciousness: confusion (on and off - unable to manage his own meds due to cognitive issues) HENMT Ears: TM's normal bilaterally and EAC's normal Throat: Yes posterior oropharynx normal and Yes tonsils normal (no TP congestion) Neck Neck: Yes supple and No lymphadenopathy Thyroid: Thyroid normal Resp Auscultation: clear to auscultation bilaterally, no rales and no wheezes Cardio Rate: regular rate Rhythm: regular rhythm Heart sounds: no murmurs GI Palpation (GI): Soft to palpation and nontender Auscultation: normal bowel sounds General: Yes no CVA tenderness Back/Spine/Pelvis Back: no CVA tenderness Thoracic/Lumbar Spine: lumbar spinal tenderness Skin Rashes: no rashes Neuro General: confusion (on and off - unable to manage his own meds due to cognitive issues) Extrem Other: (+) healed longitudinal scars over the medial aspect of both lower legs, the result of his quadruple bypass done back in 2005 General: Yes no clubbing, cyanosis or edema Results AMB Hemoglobin A1c AMB Hemoglobin A1c 10.2 % Last Edit by DEVORA Alvarez on 04/23/24 14:56 Results Reviewed Results Reviewed: Laboratory Last Values Hgb A1c (Clinic) 10.2 % (4.0-6.0) H 04/23/24 14:55 Coding Level of Care Code Est Pt Level 4 (80703) Diagnoses Type 2 diabetes mellitus with diabetic neuropathy, with long-term current use of insulin E11.40; Z79.4 Diabetes mellitus snf insulin use: with snf use Diabetic polyneuropathy associated with type 2 diabetes mellitus E11.42 Diabetes mellitus type: type 2 Coronary artery disease involving [place] coronary artery of [place] heart without angina pectoris I25.10 Associated angina: without angina Coronary Disease-Associated Artery/Lesion type: [place] artery [place] vs. transplanted heart: [place] heart Pure hypercholesterolemia E78.00 Benign essential hypertension I10 Gastritis and duodenitis K29.90 Visual hallucination R44.1 Left hip pain M25.552 Obstructive sleep apnea G47.33 Anxiety F41.9 Episode of recurrent major depressive disorder, unspecified depression episode severity F33.9 Active/Remission status: currently active Depression Type: major depressive disorder Major depression episode severity: unspecified Major depression recurrence: recurrent Obesity (BMI 30-39.9) E66.9 Additional Codes PHQ-9 - 55375 - PHQ-9 Billing: Yes ([id number]) Assessment & Plan Assessment & Plan (1) Type 2 diabetes mellitus with diabetic neuropathy: Code(s): E11.40 - Type 2 diabetes mellitus with diabetic neuropathy, unspecified Category: Medical Qualifiers: Diabetes mellitus snf insulin use: with snf use Qualified Code(s): E11.40 - Type 2 diabetes mellitus with diabetic neuropathy, unspecified; Z79.4 - MCFP (current) use of insulin Plan: His in-office HgbA1c today is at 10.2% (he was previously at 7.4% back when he was seen by endocrinology in December 2023) - goal is at least <7.5% Reinforced diabetic diet Continue Metformin ER 1500 mg QD, Lantus 60 units in AM and 56 units in PM and Humalog Kwikpen 15 to 20 units TID with meals per sliding scale Follow up with endocrinology as scheduled (2) Diabetic polyneuropathy: Code(s): E11.42 - Type 2 diabetes mellitus with diabetic polyneuropathy Category: Medical Qualifiers: Diabetes mellitus type: type 2 Qualified Code(s): E11.42 - Type 2 diabetes mellitus with diabetic polyneuropathy Plan: Continue Gabapentin *00 mg BID, Tramadol 50 mg TID PRN and Duloxetine 30 mg QD He is reminded again that the best way to slow down the progression of his neuropathy is to get his diabetes under control, with goal of HgbA1c of at least <7.0% or 7.5% He was also previously referred to pain management as he was experiencing incre asing pain in his lower extremities and his current medications have not been helping - unclear if he was ever seen or if he ever pursued this (3) Coronary artery disease: Comment: S/P quadruple bypass in 2005 Code(s): I25.10 - Atherosclerotic heart disease of [place] coronary artery without angina pectoris Category: Medical Qualifiers: Associated angina: without angina Coronary Disease-Associated Artery/Lesion type: [place] artery [place] vs. transplanted heart: [place] heart Qualified Code(s): I25.10 - Atherosclerotic heart disease of [place] coronary artery without angina pectoris Plan: S/P quadruple bypass in 2005 Continue Aspirin 81 mg QD and Metoprolol 50 mg BID Follow up with [facility] cardiology as scheduled (4) Pure hypercholesterolemia: Code(s): E78.00 - Pure hypercholesterolemia, unspecified Category: Medical Plan: Patient has not had any follow-up labs done recently and his most recent labs done when he was at the hospital back in February 2024 did not include a fasting lipid profile Reinforced low cholesterol diet Continue Atorvastatin 80 mg QD Will recheck his labs and fasting lipids in couple of months before his next appointment for follow up (5) Benign essential hypertension: Code(s): I10 - Essential (primary) hypertension Category: Medical Plan: Reinforced low-sodium diet - goal is systolic BP of at least 130 mm or less Continue Lisinopril 10 mg QD and Metoprolol 50 mg BID (6) Gastritis and duodenitis: Code(s): K29.90 - Gastroduodenitis, unspecified, without bleeding Category: Medical Plan: (+) gastritis and duodenitis on EGD done by Dr. Chavis in 2008 Reinforced dietary restrictions in gastritis Continue Omeprazole 40 mg QD Follow up with GI as scheduled (7) Visual hallucination: Code(s): R44.1 - Visual hallucinations Category: Medical Plan: I am concerned that this may be a symptom/manifestation of some undiagnosed dementia at present, especially in light of patient's declining ability to care for himself Will refer him to Neurology [facility] for further evaluation and management (8) Left hip pain: Code(s): M25.552 - Pain in left hip Category: Medical Plan: X-rays of the left hip done back in September 2023 revealed (+) mild osteoarthritis in the left hip with no acute osseous findings Have advised patient of the option of going to physical therapy or referring him to Orthopedics if his left hip pain persists Patient states that his left hip pain has eased up a lot lately and he would like to hold off on seeing other doctors for now (9) Obstructive sleep apnea: Code(s): G47.33 - Obstructive sleep apnea (adult) (pediatric) Category: Medical Plan: (+) Hx of JAIME - he has a CPAP device but patient states that he has not been using it as he had more trouble sleeping when he tried using it for the first time States that he feels that he sleeps well enough without it and denies any daytime somnolence or fatigue and does not wish to pursue this further for now (10) Anxiety: Code(s): F41.9 - Anxiety disorder, unspecified Category: Medical Plan: Continue Hydroxyzine 25 mg Q 6 hours PRN and Paroxetine 40 mg QD We did refer him to psychiatry for further evaluation and management previously (11) Depression: Code(s): F32.A - Depression, unspecified Category: Medical Qualifiers: Active/Remission status: currently active Depression Type: major depressive disorder Major depression episode severity: unspecified Major depression recurrence: recurrent Qualified Code(s): F33.9 - Major depressive disorder, recurrent, unspecified Plan: Continue Paroxetine 40 mg QD Follow-up with Psychiatry as scheduled (12) Obesity (BMI 30-39.9): Code(s): E66.9 - Obesity, unspecified Category: Medical Plan: Reinforced diet; exercise and weight loss are unrealistic given patient's comorbidities and cognitive deficits Plan Follow up as scheduled in June 2024 - would like to switch to Dr. Caceres due to language barrier and family states that they cannot come in with him to his appointments all the time Orders: Orders AMB Hemoglobin A1c 04/23/24 Z13.9 - Encounter for screening, unspecified Referrals Neurology Referral F09 - Unspecified mental disorder due to known physiological condition, R44.1 - Visual hallucinations Medications: New insulin glargine (Lantus Solostar U-100 Insulin) Take 60 units every morning and 56 units every evening subcutaneously 15 mL 3RF Changed From atorvastatin 80 mg PO DAILY To atorvastatin 80 mg PO DAILY 90 days 90 tabs 1RF Refilled tamsulosin (Flomax) 0.4 mg PO BEDTIME 90 caps 2RF paroxetine HCl 40 mg PO DAILY 90 tabs 0RF oxybutynin chloride ER 10 mg PO DAILY 90 tabs 0RF
== END 2024-04-23 15:40 | disposition home or self-care (01) ==
PROVIDERS: PCP Internal Medicine; Visit Provider Internal Medicine
DX: Z13.9 Encounter for screening, unspecified (principal)

== ENCOUNTER → 2024-04-23 14:25 | Outpatient (BNVA) | payer OTHER, SELFPAY | PROVIDERS: PCP Internal Medicine; Visit Provider Internal Medicine | DX: E11.40 Type 2 diabetes mellitus with diabetic neuropathy, unspecified (principal); E11.42 Type 2 diabetes mellitus with diabetic polyneuropathy; I25.10 Atherosclerotic heart disease of native coronary artery without angina pectoris; E78.00 Pure hypercholesterolemia, unspecified; I10 Essential (primary) hypertension; K29.90 Gastroduodenitis, unspecified, without bleeding; R44.1 Visual hallucinations; G47.33 Obstructive sleep apnea (adult) (pediatric); F41.9 Anxiety disorder, unspecified; F33.9 Major depressive disorder, recurrent, unspecified; E66.9 Obesity, unspecified; Z79.4 Long term (current) use of insulin | CPT/HCPCS: 83036; 96127; 99212 ==

== ENCOUNTER 2024-04-30 15:04 | Outpatient (AMB) | payer OTHER, SELFPAY ==
--- NOTE | 2024-04-30 15:08 | A.OFFVIS_ITS ---
Vital Signs 04/30/24 15:11 04/30/24 15:46 BMI Reason not done Patient refused/unable BP 132/58 L Blood Pressure Location Rt brachial Position Sitting Pulse 75 Pulse Source Pulse Oximeter Pulse Oximetry (%) 92 93 Oxygen Delivery Method Room Air Intake Visit Reasons: DM Intake Note: Patient present today to follow up on Type 2 Diabetes Mellitus. Last Diabetic Eye exam: 11/14/2023 Last Podiatry Visit: Does not see a Hay Sorter Random Glucose: 275 mg/dl HgA1C: 10.2% 04/23/2024 [employer] Supervisor Required: Yes [employer] Supervisor Language: [employer] Services: [employer] Supervisor Offered & Declined Accompanied by: Ninoska Allergies hydromorphone [Dilaudid] Adverse Reaction (Unknown, Verified 04/30/24 15:12) confusion From DILAUDID Adverse Reaction (Severe, Uncoded 04/30/24 15:12) CONFUSION/HALLUCIATIONS From PERCOCET Adverse Reaction (Intermediate, Uncoded 04/30/24 15:12) AGITATION HPI Comments Details: This is a 68-year-old male with a past medical history of type 2 diabetes with neuropathy, dementia, JAIME, hyperlipidemia, hypercholesterolemia, CAD, depression and depression presenting for management of type 2 diabetes. Accompanied by Crystal macedo (phone [phone]). His niece provides most of the history. I have not seen the patient since 01/09/2024. He missed appointments. She is no longer his DIAMOND SAWER. Reports he has a new DIAMOND SAWER. He only has DIAMOND SAWER services 2 hours per day. DIAMOND SAWER does not come at scheduled time. Patient is living alone in his apartment. She tells me that other family members including grandparents are trying to administer his medications, but they do not administer medications as prescribed. Sometimes they gave him 30 or 40 units of insulin. She does not know how often he is getting Humalog. She is putting the metformin in his pillbox. She reports that he seems to be declining in terms of cognitive status over several months. He is frequently drowsy. He is on multiple medications with sedation as a side effect. He falls frequently. He has been in the emergency department about once per month since September of 2023. She also states he wanders out of his house day and night. His hemoglobin A1c was down to 7.4% 12/25/2023, but now it is 10.2%. He needs assistance with ADLs. He was initially diagnosed in 1981. He was last seen by me on 12/23/23. Current regimen: Lantus 60 units in the morning and 50 units at night, metformin extended release 500 mg 2 tabs qam and 1 tab at night, Humalog per sliding scale. Humalog sliding scale 200-250: 2 units 251-300: 4 units 301-350: 6 units 351-400: 8 units Over 400: 10 units He was previously on Trulicity. Discontinued-history of pancreatitis. He has not taken an SGLT2, but he has a history of UTI and intertrigo. They do not have a glucometer with them today. It is unclear how often blood sugars are being monitored. Microvascular complications: Neuropathy, nephropathy (CKD) Macrovascular complications: CAD, TIA in 1996 and 2009 ROS: Constitutional: No fevers, chills or night sweats. Eyes: No vision changes Respiratory: No shortness of breath Cardiovascular: No chest pain Gastrointestinal: No anorexia, nausea, vomiting or diarrhea. No abdominal pain Neurologic: No headache or dizziness Endocrine: No cold or heat intolerance. No polyuria Physical exam: Constitutional: He is drowsy but in no acute distress. He is in a wheelchair. Eyes: Pupils are equal, round and reactive to light. Extraocular muscles intact. Neck: Supple, Full range of motion. No lymphadenopathy. Respiratory: Clear to auscultation. Cardiovascular: S1 S2 regular. No murmurs. Neurologic: He answers questions when asked and maintains eye contact when I am speaking to him. Extremities: No lower extremity edema [facility] Medical History (Updated 04/30/24 @ 16:51 by SLOAN Pedersen) At risk for elder neglect Anxiety Type 2 diabetes mellitus with neurologic complication Gastritis and duodenitis Vitamin B12 deficiency Hyperkalemia Intertrigo Major depressive disorder, recurrent Benign prostatic hyperplasia with urinary frequency Constipation Obstructive sleep apnea Vitamin D deficiency Diabetic polyneuropathy Diabetes mellitus Obesity (BMI 30-39.9) Benign essential hypertension Pure hypercholesterolemia Coronary artery disease Surgical History Hx of cataract extraction (~2011) History of quadruple bypass (~2005) Hx of cystoscopy History of prostate surgery (~12/04/10) Hx of cholecystectomy (~2007) Family History Father Lung cancer Mother Diabetes Hypertension Stomach cancer Social History Household Members: None Housing: Apartment Do you presently have visiting nurse or other home services: No Alcohol intake: never Patient Tobacco Use Status: Former Tobacco user e-Cigarette/Vaping Use: Never Used Second Hand Smoke Exposure: No Advance Directives Date on File: 07/24/23 service: No Current occupational status: disabled Cognitive needs: Yes (cane) Hearing needs: No Vision needs: Yes Physical Exam Vital Signs: Last Vital Signs Pulse 75 04/30/24 15:11 BP 132/58 L 04/30/24 15:11 Pulse Ox 93 04/30/24 15:46 Oxygen Delivery Method Room Air 04/30/24 15:11 Results Reviewed Results Reviewed: Laboratory Last Values Glucose (Clinic) 275 mg/dL (60-115) H 04/30/24 15:27 Laboratory Tests 09/09/22 05/09/23 07/23/23 09:41 11:47 17:24 Creatinine 1.41 H Estim Creat Clear Calc 57.6 Estimated GFR 50 Hgb A1c (Clinic) AST 18 ALT 20 B-Natriuretic Peptide 88 Triglycerides 251 Cholesterol 146 LDL Cholesterol, Calc 69 HDL Cholesterol 27 Vitamin B12 10/04/23 03/04/24 04/23/24 09:02 23:09 14:55 Creatinine 1.38 Estim Creat Clear Calc Estimated GFR 51 Hgb A1c (Clinic) 10.2 H AST 29 ALT 22 B-Natriuretic Peptide Triglycerides Cholesterol LDL Cholesterol, Calc HDL Cholesterol Vitamin B12 1741 H Assessment & Plan Assessment & Plan (1) Type 2 diabetes mellitus with neurologic complication: Code(s): E11.49 - Type 2 diabetes mellitus with other diabetic neurological complication Category: Medical Qualifiers: Diabetes mellitus complication detail: with polyneuropathy 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 I had a very kvng discussion with his niece today. We are not going to be able to control his diabetes with the current circumstances. She is concerned about his care as am I. I think the level of care he needs exceeds his current living situation. Advised that I will be filing elder at risk. I will notify his primary care provider. I did not make adjustments to his medications at this time since medications are being administered incorrectly, and there were no glucometer readings to review today. Follow up in 2-3 weeks. Coding Level of Care Code Est Pt Level 5 (85043) Complex EM visit Add On G2211 Diagnoses Type 2 diabetes mellitus with diabetic polyneuropathy, with long-term current use of insulin E11.42; Z79.4 Diabetes mellitus complication detail: with polyneuropathy Diabetes mellitus care home insulin use: with olericulture teacher use At risk for elder neglect Z91.89 Time Spent (min) 65 Comment Care coordination, direct patient care, completing documentation
[2024-04-30 15:11] VITALS: BP 132/58; PULSE 75; O2SAT 92
--- OUTSIDE RECORDS SUMMARY | 2024-04-30 15:12 | XMS_ITS | Clinical Summary ---
[facility] Organization [facility] Address [address] [place] [address] Care Team Providers Care Supervisor [employer] Name Role Phone Unavailable Primary Care Provider [...] DTaP,Tdap,and Td Vaccines (1 - Tdap) 1972 Pneumococcal Vaccine: 50+ Ye ars (1 of 1 - PCV) 06/04/2003 Zoster Vaccines (1 of 2) 06/04/2003 Abdominal Aortic Aneurysm (A AA) Screen 04/04/2023 [...] patient's age to complete this topic Meningococcal B Vacine Aged Out No lo nger eligible based on patient's age to complete this topic RSV Immunization Patients Un lashawn 20 months Aged Out No longer eligible b ased on patient's age to complete this topic Varicella Vaccines Aged Out No longer eligible based on patient's age to complete this topic
--- OUTSIDE RECORDS SUMMARY | 2024-04-30 15:13 | XMS_ITS | Clinical Summary ---
Author Organization [facility] Address [address] [place] [address] Care Team Providers Care Strategic Development Manager Name Role Phone Unavailable Primary Care Provider [...] Most Recently Relevant to Health Maintenance [place] [phone] DENTAL - [facility]
--- OUTSIDE RECORDS SUMMARY | 2024-04-30 15:13 | XMS_ITS ---
Author Name Tammy Vega NP Address [address] [place] [address] Phone [phone] Organization [facility] Care Team Providers Care Build Manager Name Role Phone Cale Vegakiara Unavailable [phone] Unavailable Unavailable Unavailable Unavailable Unavailable Unavailable [facility] Unavailable Unavailable Unavailable Unavailable Jerry Persaud Unavailable [phone] Reason for Referral Not Available Allergies, adverse [...] No Data Available B-D PEN NDL SHRT [id number](07/23) ANNAMARIE USE TO INJECT 3 TIMES DAILY 2021-06-052023-12-12 Clotrimazole-Betamethasone 1-0.05 % Crm APPLY TOPICALLY TO THE AFFECTED AREA TWICE DAILY FOR 15 DAYS 2021-11-26 No Data Available Lisinopril 10 mg Tab TAKE 1 TABLET BY MO [facility] DAILY 2022-02-05 No Data Available Trulicity [...] 2022-03-12 No Data Available OneTouch Delica Plus [id number] Miscellaneous TEST BLOOD SUGAR THREE TIMES DAILY [...] mg Tab TAKE 1 TABLET BY MO [facility] DAILY 2022-07-12 No Data Available Polyethylene Glycol 3350 17 GM Packet Mix 1 packet in 8 ounces of water, juice, coffee or tea and drink once a day 2022-07-14 No Data Available Vitamin D3 50 mcg (2,000 unit) capsule TAKE 1 CAPSULE BY MOUTH DAILY 2021-09-07 No Data Available predniSONE 20 mg Tab TAKE 2 TABLETS BY M [facility] DAILY x 3days 2022-10-11 2022-10-18 Aspirin 81 [...] Active 2023-07-31 N/A [facility] Active 2023-03-26 [...] Active 2022-02-23 N/A Other problems related to hi dical facilities and other health care Active 2024-03-08 N/A Encounters Encounters Type Facility Date of Service Diagnosis/Co mplaint New patient,40-59min; chronic exacerbation, 2 stable chronic or 1 acute illness add add modifier 95 for video (do not use for phone, instead use 50753-23) [facility] ([place]19[place] Morbid (severe) obesity due to excess caloriesBody mass index (BMI) 40.0-44.9, adultChronic obstructive pulmonary disease, unspecifiedEnlarged prostate without lower urinary tract symptomsType 2 diabetes mellitus with diabetic polyneuropathyEssential (primary) hypertensionHyperlipidemia, unspecifiedMajor depressive disorder, single episode, in full remissionLow back pain, unspecifiedAthscl heart disease of [place] coronary artery w/o ang pctrsType 2 diabetes mellitus with other specified complicationLong term (current) use of insulin New patient,40-59min; chronic exacerbation, 2 stable chronic or 1 acute illness add add modifier 95 for video (do not use for phone, instead use 75699-93) [facility] New patient,40-59min; chronic exacerbation, 2 stable chronic or 1 acute illness add add modifier 95 for video (do not use for phone, instead use 06197-13) [facility] New patient,40-59min; chronic exacerbation, 2 stable chronic or 1 acute illness add add modifier 95 for video (do not use for phone, instead use 88234-70) [facility] New patient,40-59min; chronic exacerbation, 2 stable chronic or 1 acute illness add add modifier 95 for video (do not use for phone, instead use 59324-17) [facility] New patient,40-59min; chronic exacerbation, 2 stable chronic or 1 acute illness add add modifier 95 for video (do not use for phone, instead use 55179-90) [facility] ([place] 02[place]19/20[place] RN, CN or CP time with patient by phone; use with 1111F, BP, A1c or other CPTII codes [facility], ([place]) 10/14/2022 Encounter for other specifie d aftercare RN, CN or CP time with patient by phone; use with 1111F, BP, A1c or other CPTII codes [facility], ([place]) 10/14/2022 Estab. patient 30-39min; chronic exacerbation, 2 stable chronic or 1 acute illness add add modifier 95 for video, (do not use for phone, instead use 95540-17) [facility]18[place]20[place] Type 2 diabetes mellitus wit h [...] (do not use for phone, instead use 17247-49) [facility] Estab. patient 30-39min; chronic exacerbation, 2 stable chronic or 1 acute illness add add modifier 95 for video, (do not use for phone, instead use 95746-39) [facility]18[place] Estab. patient 30-39min; chronic exacerbation, 2 stable chronic or 1 acute illness add add modifier 95 for video, (do not use for phone, instead use 79480-14) [facility]18[place]20[place] Estab. patient 30-39min; chronic exacerbation, 2 stable chronic or 1 acute illness add add modifier 95 for video, (do not use for phone, instead use 03620-31) [facility]18[place]20[place] Estab. patient 30-39min; chronic exacerbation, 2 stable chronic or 1 acute illness add add modifier 95 for video, (do not use for phone, instead use 44661-04) [facility]18[place] Estab. patient 30-39min; chronic exacerbation, 2 stable chronic or 1 acute illness add add modifier 95 for video, (do not use for phone, instead use 67934-67) [facility] ([place] 10[place]18/20[place] Estab. patient 30-39min; chronic exacerbation, 2 stable chronic or 1 acute illness add add modifier 95 for video, (do not use for phone, instead use 11262-39) [facility] ([place] 10[place]18/2022 Estab. patient 30-39min; chronic exacerbation, 2 stable chronic or 1 acute illness add add modifier 95 for video, (do not use for phone, instead use 48746-15) [facility] ([place] 10[place]18/2022 Estab. patient 30-39min; chronic exacerbation, 2 stable chronic or 1 acute illness add add modifier 95 for video, (do not use for phone, instead use 01612-48) [facility] 10/18/2022 Unlisted special service; to be used for medical record reviews and reporting CPTII codes (1111F, etc) [facility] ([place] 11/25/2022 Other specified health statu s Unlisted special service; to be used for medical record reviews and reporting CPTII codes (1111F, etc) [facility] ([place]/25/2022 Unlisted special service; to be used for medical record reviews and reporting CPTII codes (1111F, etc) [facility]/2022 No Data Available [facility] ([place] 02/24/2023 Type 2 diabetes mellitus wit h other specified complicationEmphysema, unspecifiedEnlarged prostate without lower urinary tract symptomsType 2 diabetes mellitus with diabetic polyneuropathyEssential (primary) hypertensionHyperlipidemia, unspecifiedMajor depressive disorder, single episode, in full remissionLow back pain, unspecifiedAthscl heart disease of [place] coronary artery w/o ang pctrsMorbid (severe) obesity due to excess caloriesBody mass index (BMI) 40.0-44.9, adult No Data Available [facility]/20[place] No Data Available [facility] No Data Available [facility] No Data Available [facility] No Data Available [facility] No Data Available [facility]20[place] Type 2 diabetes mellitus [...] initial encounterAnxiety disorder, unspecified No Data Available [facility]20[place] No Data Available [facility] No Data Available [facility]20[place] No Data Available [facility]20[place] No Data Available [facility]04[place]20[place] No Data Available [facility] No Data Available [facility]20[place] No Data Available [facility] 05[place]02/2023 Type 2 diabetes mellitus wit h other specified complicationEmphysema, unspecifiedEnlarged prostate without lower urinary tract symptomsType 2 diabetes mellitus with diabetic polyneuropathyEssential (primary) hypertensionHyperlipidemia, unspecifiedLow back pain, unspecifiedAthscl heart disease of [place] coronary artery w/o ang pctrsBody mass index (BMI) 40.0-44.9, adultMorbid (severe) obesity due to excess caloriesOther problems related to medical facilities and other health careUnspecified fall, initial encounterAnxiety disorder, unspecifiedMajor depressive disorder, recurrent, moderate No Data Available [facility] No Data Available [facility] No Data Available [facility] No Data Available [facility] No Data Available [facility] No Data Available [facility]2023 Type 2 diabetes mellitus wit h diabetic polyneuropathyType 2 diabetes mellitus with other specified complicationHyperlipidemia, unspecifiedEmphysema, unspecifiedMorbid (severe) obesity due to excess caloriesBody mass index (BMI) 40.0-44.9, adultMajor depressive disorder, recurrent, moderateEnlarged prostate without lower urinary tract symptomsEssential (primary) hypertensionLow back pain, unspecifiedOther problems related to medical facilities and other health careAnxiety disorder, unspecifiedUnspecified fall, subsequent encounter No Data Available [facility]20[place] No Data Available [facility] No Data Available [facility] No Data Available [facility] No Data Available [facility] No Data Available [facility] 07[place]08/2023 Type 2 diabetes mellitus wit h other specified complicationHyperlipidemia, unspecifiedLong term (current) use of insulinLong-term (current) use of injectable non-insulin antidiabetic drugsOther problems related to medical facilities and other health care No Data Available [facility] 07[place]/2023 Altered mental status, unspecified No Data Available [facility] 08/26/2023 Altered mental status, unspecifiedOther problems related to medical facilities and other health care No Data Available [facility] 10[place]02/2023 Type 2 diabetes mellitus wit h other specified complicationHyperlipidemia, unspecifiedOther problems related to medical facilities and other health careAltered mental status, unspecified Estab. patient 30-39min; chronic exacerbation, 2 stable chronic or 1 acute illness add add modifier 95 for video, (do not use for phone, instead use 17010-78) [facility]20[place] Type 2 diabetes mellitus wit h [...] (do not use for phone, instead use 19388-67) [facility]20[place] Estab. patient 30-39min; chronic exacerbation, 2 stable chronic or 1 acute illness add add modifier 95 for video, (do not use for phone, instead use 25873-58) [facility] 12[place]10[place]20[place] Estab. patient 30-39min; chronic exacerbation, 2 stable chronic or 1 acute illness add add modifier 95 for video, (do not use for phone, instead use 22655-42) [facility]20[place] Estab. patient 30-39min; chronic exacerbation, 2 stable chronic or 1 acute illness add add modifier 95 for video, (do not use for phone, instead use 51879-04) [facility]20[place] Estab. patient 30-39min; chronic exacerbation, 2 stable chronic or 1 acute illness add add modifier 95 for video, (do not use for phone, instead use 98407-39) [facility] Estab. patient 30-39min; chronic exacerbation, 2 stable chronic or 1 acute illness add add modifier 95 for video, (do not use for phone, instead use 53087-26) [facility] Estab. patient 30-39min; chronic exacerbation, 2 stable chronic or 1 acute illness add add modifier 95 for video, (do not use for phone, instead use 90881-94) [facility]20[place] Estab. patient 30-39min; chronic exacerbation, 2 stable chronic or 1 acute illness add add modifier 95 for video, (do not use for phone, instead use 72002-52) [facility] 12[place]20[place] Estab. patient 30-39min; chronic exacerbation, 2 stable chronic or 1 acute illness add add modifier 95 for video, (do not use for phone, instead use 88843-08) [facility] 12[place]20[place] No Data Available [facility] 12[place]18[place]2023 Major depressive disorder, recurrent, moderateType 2 diabetes mellitus with other specified complicationHyperlipidemia, unspecifiedPolyosteoarthritis, unspecifiedUnsteadiness on feetAnxiety disorder, unspecifiedOther problems related to medical facilities and other health careLow back pain, unspecifiedUnspecified fall, initial encounter No Data Available [facility] 12[place]18[place]2023 No Data Available [facility]/18[place]20[place] No Data Available [facility]/18[place]20[place] No Data Available [facility]18[place]20[place] No Data Available [facility] 01[place]14/2024 Essential (primary) hypertensionType 2 diabetes mellitus with other specified complicationNicotine dependence, unspecified, in remissionHyperlipidemia, unspecifiedOther problems related to medical facilities and other health care No Data Available [facility] 01[place]14[place]20[place] No Data Available [facility] 01/14/20[place] No Data Available [facility] [place] 01[place]14[place]20[place] No Data Available [facility] [place]/14[place]2024 No Data Available [facility] [place] 01[place]14[place]2024 No Data Available [facility] [place] 02/27/2024 Other malaiseRepeated fallsPersonal history of other medical treatment No Data Available [facility] [place] 02/27/2024 No Data Available [facility] [place] 02/27/2024 No Data Available [facility] [place] 02/27/2024 No Data Available [facility] [place] 03/08/2024 Anxiety disorder, unspecifiedAcute upper respiratory infection, unspecifiedOther problems related to medical facilities and other health care No Data Available [facility] 03/08/2024 No Data Available [facility] [place] 03/08/20[place] Estab. patient 10-29min; 1 minor problem; add add modifier 95 for video, modifier 93 for phone [facility] 03/12/2024 Acute upper respiratory infection, unspecifiedOther problems related to medical facilities and other health care Estab. patient 10-29min; 1 minor problem; add add modifier 95 for video, modifier 93 for phone [facility] 03/12/2024 Estab. patient 10-29min; 1 minor problem; add add modifier 95 for video, modifier 93 for phone [facility] 04/07/2024 Low back pain, unspecifiedOt [...] tive Time Current Smoking Status Former smoker 2024-04-11 1 Sex Male Gender identity Man History of Procedures Procedures Service Procedure code Service date Servicing provider Phone# New patient,40-59min; chronic exacerbation, 2 stable chronic or 1 acute illness add add modifier 95 for video (do not use for phone, instead use 36059-73) [id number] 2022-02-19 No Data Available No Data Availa [...] 1111F, BP, A1c or other CPTII codes 86842 2022-10-14 No Data Available No Data Avai lable Medications prescribed in hospital were reviewed and reconciled against what they were taking prior to admission during today's visit. (1111F) 1111F 2022-10-14 No Data Available No Data Availa ble Estab. patient 30-39min; chronic exacerbation, 2 stable chronic or 1 acute illness add add modifier 95 for video, (do not use for phone, instead use 59448-75) [id number] 2022-10-18 No Data Available No Data Availa [...] reviews and reporting CPTII codes (1111F, etc) 65042 2022-11-25 No Data Available No Data Availa ble DBP <80 (3078F) 3078F 2022-11-25 No Data Available No Data Available SBP < 130 (3074F) 3074F 2022-11-25 No Data Available No Data Available No Data Available [id number] 2023-02-24 No Data Available No Data Available [...] No Data Avail able No Data Available [id number] 2023-05-20 No Data Available No Data Available [...] le No Data Available No Data Available [id number] 2023-07-08 No Data Available No Data Available No Data Available [id number] 2023-07-31 No Data Available No Data Available No Data Available [id number] 2023-08-26 No Data Available No Data Available No Data Available [id number] 2023-10-02 No Data Available No Data Available Estab. patient 30-39min; chronic exacerbation, 2 stable chronic or 1 acute illness add add modifier 95 for video, (do not use for phone, instead use 57603-85) 82577 2023-12-10 No Data Available No Data Availa [...] No Data Avail able No Data Available [id number] 2023-12-18 No Data Available No Data Available [...] Available No Data Available No Data Available [id number] 2024-01-14 No Data Available No Data Available [...] No Data Availa ble No Data Available [id number] 2024-02-27 No Data Available No Data Available [...] No Data A vailable No Data Available [id number] 2024-03-08 No Data Available No Data Available [...] 95 for video, modifier 93 for phone 89712 2024-03-12 No Data Available No Data Availa [...] in last 6 months - Yes 2022-10-18 [employer] coming in M-F only one h our per day (originally approved for 10 hours) 2023-04-04 uses cane and walker at home to ambulate 2023-12-18 [employer] MACHINE [employer]CH[employer] is his niece. [employer] 2023-12-18 has meals [...] denies monitoring BGLantus, TrulicityContinue to f/u w/ valet cashier q3-6 months, monitor BG levels, discussed dietary and exercise interventions, contact us if develop hyperglycemia s/sxStableAlbuterol, FloventMonitor O2, take medications as Rx, continue f/u care w/ PCP [id number], contact us if you develop respiratory distressStableTamsulosinMonitor urine output, continue taking medication as prescribed, f/u PCP [id number], contact us if develop acute decrease in [...] denies monitoring BGLantus, TrulicityContinue to f/u w/ valet cashier q3-6 months, monitor BG levels, discussed dietary and exercise interventions, contact us if develop hyperglycemia s/sxStableAlbuterol, FloventMonitor O2, take medications as Rx, continue f/u care w/ PCP [id number], contact us if you develop respiratory distressStableTamsulosinMonitor urine output, continue taking medication as prescribed, f/u PCP [id number], contact us if develop acute decrease in [...] denies monitoring BGLantus, TrulicityContinue to f/u w/ valet cashier q3-6 months, monitor BG levels, discussed dietary and exercise interventions, contact us if develop hyperglycemia s/sxStableAlbuterol, FloventMonitor O2, take medications as Rx, continue f/u care w/ PCP [id number], contact us if you develop respiratory distressStableTamsulosinMonitor urine output, continue taking medication as prescribed, f/u PCP [id number], contact us if develop acute decrease in [...] coping mechanisms and benefits of potential verbal [id number]/18/23: feels more calm now that he's home; [...] denies monitoring BGLantus, TrulicityContinue to f/u w/ valet cashier q3-6 months, monitor BG levels, discussed dietary and exercise interventions, contact us if develop hyperglycemia s/sxCONTINGENCY PLANMember to call for the following symptoms: Blood sugar <70/ Blood sugar >300/ More thirsty than usual/ Urinating more than usualPlanned intervention:StableAlbuterol, FloventMonitor O2, take medications as Rx, continue f/u care w/ PCP [id number], contact us if you develop respiratory distressStableTamsulosinMonitor urine output, continue taking medication as prescribed, f/u PCP [id number], contact us if develop acute decrease in [...] denies monitoring BGLantus, TrulicityContinue to f/u w/ valet cashier q3-6 months, monitor BG levels, discussed dietary and exercise interventions, contact us if develop hyperglycemia s/sxCONTINGENCY PLANMember to call for the following symptoms: Blood sugar <70/ Blood sugar >300/ More thirsty than usual/ Urinating more than usualPlanned intervention:StableAlbuterol, FloventMonitor O2, take medications as Rx, continue f/u care w/ PCP [id number], contact us if you develop respiratory distressStableTamsulosinMonitor urine output, continue taking medication as prescribed, f/u PCP [id number], contact us if develop acute decrease in [...] denies monitoring BGLantus, TrulicityContinue to f/u w/ valet cashier q3-6 months, monitor BG levels, discussed dietary and exercise interventions, contact us if develop hyperglycemia s/sxCONTINGENCY PLANMember to call for the following symptoms: Blood sugar <70/ Blood sugar >300/ More thirsty than usual/ Urinating more than usualPlanned intervention: 05/20/23: had episodes of hypoglycemia in STR; have decreased lantus to 60Units per nightStableAlbuterol, FloventMonitor O2, take medications as Rx, continue f/u care w/ PCP [id number], contact us if you develop respiratory distressStableTamsulosinMonitor urine output, continue taking medication as prescribed, f/u PCP [id number], contact us if develop acute decrease in [...] joint pain increased Please remember to call [facility] to see PCP. Follow-up with Don as [...] denies monitoring BGLantus, TrulicityContinue to f/u w/ valet cashier q3-6 months, monitor BG levels, discussed dietary [...] date) tx from the hospital to a shelter for [facility] per cg. I left [...] date) tx from the hospital to a shelter for advanced dementia per cg. I left a message to the patient's son Manuel for add. information. Placed member on hold due to placement.08/26/23: Son reports that the patient returned home 2 weeks ago from SNF. The family has been providing 30/09 support but he reports that the patient needs more [employer] hours to continue to providing adequate care. I provided [facility] number for follow up. Denies any [...] denies monitoring BGLantus, TrulicityContinue to f/u w/ valet cashier q3-6 months, monitor BG levels, discussed dietary [...] reports that the patient recently started with [employer] (niece) to help with his care. He was previously non-compliant with his medications and insulin; [employer]CH[employer] Crystal is helping with his medication management [...] date) tx from the hospital to a shelter for advanced dementia per cg. I left a message to the patient's son Manuel for add. information. Placed member on hold due to placement.08/26/23: Son reports that the patient returned home 2 weeks ago from SNF. The family has been providing 24/7 support but he reports that the patient needs more [employer]CH[employer] hours to continue to providing adequate care. I provided [facility] number for follow up. Denies any [...] denies monitoring BGLantus, TrulicityContinue to f/u w/ valet cashier q3-6 months, monitor BG levels, discussed dietary [...] reports that the patient recently started with BAKERY MACHINE MECHANIC (niece) to help with his care. He was previously non-compliant with his medications and insulin; BAKERY MACHINE MECHANIC Crystal is helping with his medication management due to BS in 300's avg.StableAlbuterol, FloventMonitor O2, take medications as Rx, continue f/u care w/ PCP [id number], contact us if you develop respiratory distressStableTamsulosinMonitor urine output, continue taking medication as prescribed, f/u PCP [id number], contact us if develop acute decrease in [...] but in pain and frustrated about reduced BAKERY MACHINE MECHANIC hours. Please keep a log and we [...] call CBContinue to see PCP. Follow-up with [facility] as needed for any acute or disease [...] PT - asking PCP.Due to not enough BAKERY MACHINE MECHANIC presence, has fallen a number of times recently, and hurt his ribs badly.Also needs medication reminders. Reduced BAKERY MACHINE MECHANIC hours because they were sending meals on wheels. BAKERY MACHINE MECHANIC has been with him since August and [...] (with food)Patient verbalized understanding. Caregiver verbalized understanding.Reduced BAKERY MACHINE MECHANIC hours because they were sending meals on wheels but has not received the meals yet.Also needs medication reminders now that his BAKERY MACHINE MECHANIC is not there as much - at risk for noncompliance.Reduced BAKERY MACHINE MECHANIC hours because they were sending meals on wheels. BAKERY MACHINE MECHANIC has been with him since August and [...] denies monitoring BGLantus, TrulicityContinue to f/u w/ valet cashier q3-6 months, monitor BG levels, discussed dietary [...] reports that the patient recently started with BAKERY MACHINE MECHANIC (niece) to help with his care. He was previously non-compliant with his medications and insulin; BAKERY MACHINE MECHANIC Crystal is helping with his medication management [...] denies monitoring BGLantus, TrulicityContinue to f/u w/ valet cashier q3-6 months, monitor BG levels, discussed dietary [...] reports that the patient recently started with BAKERY MACHINE MECHANIC (niece) to help with his care. He was previously non-compliant with his medications and insulin; BAKERY MACHINE MECHANIC Crystal is helping with his medication management due to BS in 300's avg.10.10.24: reports his BS have decreased. Now <200 average. Is f/u wit pcp and reports good bs and good BP during visit no records available to review today01/14/2024 patient visited valet cashier this week . patient states that his BG is controlled for the most part.StablePt denies monitoring BPLisinopril, MetoprololDiscussed dietary and exercise interventions, f/u w/ PCP q6-12 months, contact us develop emergent HTN s/sx1//24BP 150/76 today but in pain and frustrated about reduced BAKERY MACHINE MECHANIC hours. Please keep a log and we [...] at home and decided to get looked at.BAKERY MACHINE MECHANIC hours were reduced just as he is getting weaker and his walking is unsafe.Needs PT - asking PCP.Due to not enough BAKERY MACHINE MECHANIC presence, has fallen a number of times recently, and hurt his ribs badly.Also needs medication reminders. Reduced BAKERY MACHINE MECHANIC hours because they were sending meals on wheels. BAKERY MACHINE MECHANIC has been with him since August and [...] to seek medical assistance or to call [facility].03/08/24 Patient reports fever, chills and congestion with [...] modifier 95)Continue to see PCP. Follow-up with [facility] as needed for any acute or disease [...] joint pain increased Please remember [facility]. [facility] for any acute or disease education needs that may arise 30/09.what should be done when the member calls: see each individual diagnosis for contingency plan 2024-04-07 05:25:01 Estab. patient 10-29 min; 1 minor problem; add add modifier 95 for video, modifier 93 for phoneContinue to see PCP. [facility] for any acute or disease education needs that may arise 30/09.Add Contingency PlanStableCymbaltaContinue taking medications, practice core ROM exercises as tolerable, contact us if develop increase in low back pain without reliefER visit on 03/19/24 at [facility] for [facility]. He reports feeling better, [...] precipitating factors: ER visit on 03/19/24 at [facility] for back pain. He reports feeling better, he will follow up with PCP.
[2024-04-30 15:35] LABS: Glucose, Whole Blood 275 mg/dL (60-115)
[2024-04-30 15:46] VITALS: O2SAT 93
== END 2024-04-30 16:07 | disposition home or self-care (01) ==
PROVIDERS: PCP Internal Medicine; Visit Provider Physician Assistant Medical
DX: E11.42 Type 2 diabetes mellitus with diabetic polyneuropathy (principal); Z79.4 Long term (current) use of insulin; Z91.89 Other specified personal risk factors, not elsewhere classified

== ENCOUNTER → 2024-04-30 15:04 | Outpatient (BNVA) | payer OTHER, SELFPAY | PROVIDERS: PCP Internal Medicine; Visit Provider Physician Assistant Medical | DX: E11.42 Type 2 diabetes mellitus with diabetic polyneuropathy (principal); E11.65 Type 2 diabetes mellitus with hyperglycemia; Z91.89 Other specified personal risk factors, not elsewhere classified; Z79.4 Long term (current) use of insulin; Z79.84 Long term (current) use of oral hypoglycemic drugs | CPT/HCPCS: 82947; 99212 ==

== ENCOUNTER 2024-05-28 14:55 | Outpatient (AMB) | payer OTHER, SELFPAY ==
--- NOTE | 2024-05-28 14:57 | A.OFFVIS_ITS ---
Vital Signs 05/28/24 15:01 Height 5 ft 4 in Weight 222 lb 14.197 oz BMI 38.3 BP 112/58 L Blood Pressure Location Rt brachial Position Sitting Pulse 60 Pulse Source Pulse Oximeter Pulse Oximetry (%) 95 Oxygen Delivery Method Room Air Intake Visit Reasons: DM Intake Note: Patient present today to follow up on Type 2 Diabetes Mellitus. Last Diabetic Eye exam: 11/14/2023 Last Podiatry Visit: Does not see a [employer] Supervisor Random Glucose: 219 mg/dl HgA1C: 10.2% 04/23/2024 Woolen Tester Required: Yes Woolen Tester Language: Adoption Counselor Services: Woolen Tester Offered & Declined Accompanied by: SUPERVISOR PRINTING AND STAMPING Allergies hydromorphone [Dilaudid] Adverse Reaction (Unknown, Verified 05/28/24 15:02) confusion From DILAUDID Adverse Reaction (Severe, Uncoded 05/28/24 15:02) CONFUSION/HALLUCIATIONS From PERCOCET Adverse Reaction (Intermediate, Uncoded 05/28/24 15:02) AGITATION Medication List - Last Reconciled 05/28/24 by SLOAN Pedersen [Active Mal guard pads 6 x 11 As directed] albuterol sulfate 90 mcg/actuation 2 puffs PO Q4-6H PRN aspirin 81 mg PO DAILY atorvastatin 80 mg PO DAILY 90 days blood sugar diagnostic (OneTouch Ultra Test strips) test 3 times per day blood sugar diagnostic 1 strip miscellaneous TID blood-glucose meter (OneTouch Ultra2 Meter) test 3 times per day blood-glucose meter,continuous (FreeStyle [place] 3 [place]) as directed blood-glucose sensor (FreeStyle [place] 3 Sensor device) As directed cholecalciferol (vitamin D3) (Vitamin D3) 50 mcg PO DAILY [Cleansing wipes As directed] cyanocobalamin (vitamin B-12) 1,000 mcg PO DAILY 90 days dicyclomine 20 mg PO QID PRN [Disposable 30x30 polymer pads heavy floweds As directed] docusate sodium 100 mg PO BID PRN 30 days fluticasone propionate 50 mcg/actuation 1 spray intranasal DAILY gabapentin 400 mg PO TID glucose 16 grams (4 x 4 gram) PO Q15M hydroxyzine HCl 25 mg PO Q6H PRN 30 days insulin glargine (Lantus Solostar U-100 Insulin) Take 60 units every morning and 56 units every evening subcutaneously insulin lispro (Humalog KwikPen (U-100) Insulin) 15 - 20 units (0.15 - 0.2 mL) subcut .TIDAC insulin syr/ndl U100 half gareth Use 4 times daily lancets (OneTouch Delica Lancets) As directed 3 times a day lidocaine 5% 1 patch topical DAILY lisinopril 10 mg PO DAILY 90 days lorazepam (Ativan) 1 mg PO BEDTIME PRN metaxalone 800 mg PO BEDTIME metformin ER 1,500 mg (3 x 500 mg) PO DAILY 90 days metoclopramide HCl (Reglan) 10 mg PO AC PRN metoprolol tartrate 50 mg PO BID [monthly medication organizer (med box) monthly medication organizer box; ] [Monthly Medication Organizer (Med-Box) ] naproxen 500 mg PO BID PRN omeprazole 40 mg PO DAILY ondansetron 4 mg PO Q8H PRN ondansetron HCl 4 mg PO Q6H PRN oxybutynin chloride ER 10 mg PO DAILY paroxetine HCl 40 mg PO DAILY pen needle, diabetic (Lite Touch Insulin Pen [place]) Use 3 times daily pen needle, diabetic (BD Ultra-Fine Original Pen Needle) 3 times daily pen needle, diabetic (BD Ultra-Fine Brittany Pen Needle) test 3 times daily phenazopyridine (Pyridium) 200 mg PO TID 2 days polyethylene glycol 3350 (Miralax) 17 grams PO DAILY PRN [Powder free synthetic exam gloves As directed] [Semi-Electric Hospital Bed As directed] [SHOWER CHAIR As directed] [SHOWER CHAIR As directed] tamsulosin (Flomax) 0.4 mg PO BEDTIME [WALKER As directed] walker As directed HPI Comments Details: This is a 68-year-old male with a past medical history of type 2 diabetes with neuropathy, dementia, JAIME, hyperlipidemia, hypercholesterolemia, CAD, depression and depression presenting for management of type 2 diabetes. Accompanied by Fidelia MENDEZ. Usually accompanied by his niece, Crystal (phone [phone]). They report he was hospitalized after a fall and was released last Friday from [facility]. She says he has an appointment with his primary care office at the end of the month. They had evaluation with a visiting nurse, and he is getting PT and OT. Fidelia says his family members are administering his medication, but she was not able to confirm dosages and frequency. They do not have the meter with him today to review blood sugars. He was initially diagnosed in 1981. Current regimen: Lantus 60 units in the morning and 50 units at night, metformin extended release 500 mg 2 tabs qam and 1 tab at night, Humalog per sliding scale. Humalog sliding scale 200-250: 2 units 251-300: 4 units 301-350: 6 units 351-400: 8 units Over 400: 10 units Previous medications: He was previously on Trulicity. Discontinued-history of pancreatitis. He has not taken an SGLT2, but he has a history of UTI and intertrigo. Microvascular complications: Neuropathy, nephropathy (CKD) Macrovascular complications: CAD, TIA in 1996 and 2009 ROS: Constitutional: No fevers, chills or night sweats. Eyes: No vision changes Respiratory: No shortness of breath Cardiovascular: No chest pain Gastrointestinal: No anorexia, nausea, vomiting or diarrhea. No abdominal pain Neurologic: No headache or dizziness Endocrine: No cold or heat intolerance. No polyuria Physical exam: Constitutional: No acute distress. In wheelchair. Eyes: Pupils are equal, round and reactive to light. Extraocular muscles intact. Neck: Supple, Full range of motion. No lymphadenopathy. Respiratory: Clear to auscultation. Cardiovascular: S1 S2 regular. No murmurs. Neurologic: He answers questions when asked and maintains eye contact when I am speaking to him. Extremities: No lower extremity edema [facility] Medical History (Updated 04/30/24 @ 16:51 by SLOAN Pedersen) At risk for elder neglect Anxiety Type 2 diabetes mellitus with neurologic complication Gastritis and duodenitis Vitamin B12 deficiency Hyperkalemia Intertrigo Major depressive disorder, recurrent Benign prostatic hyperplasia with urinary frequency Constipation Obstructive sleep apnea Vitamin D deficiency Diabetic polyneuropathy Diabetes mellitus Obesity (BMI 30-39.9) Benign essential hypertension Pure hypercholesterolemia Coronary artery disease Surgical History Hx of cataract extraction (~2011) History of quadruple bypass (~2005) Hx of cystoscopy History of prostate surgery (~12/04/10) Hx of cholecystectomy (~2007) Family History Father Lung cancer Mother Diabetes Hypertension Stomach cancer Social History Household Members: None Housing: Apartment Do you presently have visiting nurse or other home services: No Alcohol intake: never Patient Tobacco Use Status: Former Tobacco user e-Cigarette/Vaping Use: Never Used Second Hand Smoke Exposure: No Advance Directives Date on File: 07/24/23 service: No Current occupational status: disabled Cognitive needs: Yes (cane) Hearing needs: No Vision needs: Yes Physical Exam Vital Signs: Last Vital Signs Pulse 60 05/28/24 15:01 BP 112/58 L 05/28/24 15:01 Pulse Ox 95 05/28/24 15:01 Oxygen Delivery Method Room Air 05/28/24 15:01 BMI result Body Mass Index 38.3 Results Reviewed Results Reviewed: Laboratory Last Values Glucose (Clinic) 219 mg/dL (60-115) H 05/28/24 15:09 Laboratory Tests 09/09/22 05/09/23 07/23/23 09:41 11:47 17:24 Creatinine 1.41 H Estim Creat Clear Calc 57.6 Estimated GFR 50 Hgb A1c (Clinic) AST 18 ALT 20 B-Natriuretic Peptide 88 Triglycerides 251 Cholesterol 146 LDL Cholesterol, Calc 69 HDL Cholesterol 27 Vitamin B12 10/04/23 03/04/24 04/23/24 09:02 23:09 14:55 Creatinine 1.38 Estim Creat Clear Calc Estimated GFR 51 Hgb A1c (Clinic) 10.2 H AST 29 ALT 22 B-Natriuretic Peptide Triglycerides Cholesterol LDL Cholesterol, Calc HDL Cholesterol Vitamin B12 1741 H Assessment & Plan Assessment & Plan (1) Type 2 diabetes mellitus with neurologic complication: Code(s): E11.49 - Type 2 diabetes mellitus with other diabetic neurological complication Category: Medical Qualifiers: Diabetes mellitus shelter insulin use: with wardrobe manager use Diabetes mellitus complication detail: with polyneuropathy Qualified Code(s): E11.42 - Type 2 diabetes mellitus with diabetic polyneuropathy; Z79.4 - long-term (current) use of insulin Plan: In summary this is a 68-year-old male with uncontrolled type 2 diabetes with micro and macrovascular complications on basal-bolus insulin and metformin. They did not have the glucometer today, and it was still unclear today what medications are being administered reliably at home, but residential is starting s/p hospitalization for medication administration. Continue Lantus 60 units in the morning and 50 units at night. Continue humalog sliding scale and administer 15 minutes before meals. Continue metformin extended release 500 mg 2 tablets qam and 1 tablet in the afternoon. Side effects reviewed. Reviewed treatment of hypo/hyperglycemia. I will follow back up with [facility]. Filed elder Follow up in 2 weeks for type 2 diabetes and bring glucometer. Coding Level of Care Code Est Pt Level 4 (78799) Complex EM visit Add On G2211 Diagnoses Type 2 diabetes mellitus with diabetic polyneuropathy, with long-term current use of insulin E11.42; Z79.4 Diabetes mellitus wardrobe manager insulin use: with shelter use Diabetes mellitus complication detail: with polyneuropathy
[2024-05-28 15:01] VITALS: BP 112/58; PULSE 60; O2SAT 95; BMI 38.3
[2024-05-28 15:13] LABS: Glucose, Whole Blood 219 mg/dL (60-115)
--- OUTSIDE RECORDS SUMMARY | 2024-05-28 17:03 | XMS_ITS | Clinical Summary ---
Author Organization [employer] Address [address] [place] [address] Care Team Providers Care [place] Services Manager Name Role Phone Unavailable Primary Care [...] Most Recently Relevant to Health Maintenance [place] [phone] [facility]AL - [facility]
--- OUTSIDE RECORDS SUMMARY | 2024-05-28 17:03 | XMS_ITS | Clinical Summary ---
[facility] Organization [facility] Address [address] [place] [address] Care Team Providers Care Furnace Keeper Name Role Phone Unavailable Primary Care Provider [...]
--- OUTSIDE RECORDS SUMMARY | 2024-05-28 17:03 | XMS_ITS ---
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 Name Role Phone Cale Vegakiara Unavailable [phone] Unavailable Unavailable Unavailable Unavailable Unavailable [phone] [facility] Unavailable [phone] Jerry Persaud Unavailable [phone] Reason for Referral Not Available Allergies, adverse [...] No Data Available B-D PEN NDL SHRT [id number](07/23) ANNAMARIE USE TO INJECT 3 TIMES DAILY 2021-06-05 2023-12-12 Clotrimazole-Betamethasone 1-0.05 % Crm APPLY TOPICALLY TO THE AFFECTED AREA TWICE DAILY FOR 15 DAYS 2021-11-26 No Data Available Lisinopril 10 mg Tab TAKE 1 TABLET BY MO [facility] DAILY 2022-02-05 No Data Available Trulicity 1.5 [...] 2022-03-12 No Data Available OneTouch Delica Plus [id number] Miscellaneous TEST BLOOD SUGAR THREE TIMES DAILY [...] 40 mg Tab TAKE 1 TABLET BY [facility] DAILY 2022-07-12 No Data Available Polyethylene Glycol 3350 17 GM Packet Mix 1 packet in 8 ounces of water, juice, coffee or tea and drink once a day 2022-07-14 No Data Available Vitamin D3 50 mcg (2,000 unit) capsule TAKE 1 CAPSULE BY MOUTH DAILY 2021-09-07 No Data Available predniSONE 20 mg Tab TAKE 2 TABLETS BY M [facility] DAILY x 3days 2022-10-11 2022-10-18 Aspirin 81 [...] Active 2023-07-31 N/A Other problems related to [facility] facilities and other health care Active 2023-03-26 [...] Active 2022-02-23 N/A Other problems related to dc dical facilities and other health care Active 2024-03-08 N/A Encounters Encounters Type Facility Date of Service Diagnosis/Co mplaint New patient,40-59min; chronic exacerbation, 2 stable chronic or 1 acute illness add add modifier 95 for video (do not use for phone, instead use 83153-83) [facility] Morbid (severe) obesity due to excess caloriesBody mass index (BMI) 40.0-44.9, adultChronic obstructive pulmonary disease, unspecifiedEnlarged prostate without lower urinary tract symptomsType 2 diabetes mellitus with diabetic polyneuropathyEssential (primary) hypertensionHyperlipidemia, unspecifiedMajor depressive disorder, single episode, in full remissionLow back pain, unspecifiedAthscl heart disease of [place] coronary artery w/o ang pctrsType 2 diabetes mellitus with other specified complicationLong term (current) use of insulin New patient,40-59min; chronic exacerbation, 2 stable chronic or 1 acute illness add add modifier 95 for video (do not use for phone, instead use 70870-67) [facility] 02[place] New patient,40-59min; chronic exacerbation, 2 stable chronic or 1 acute illness add add modifier 95 for video (do not use for phone, instead use 66545-49) [facility] 02[place] New patient,40-59min; chronic exacerbation, 2 stable chronic or 1 acute illness add add modifier 95 for video (do not use for phone, instead use 11630-53) [facility] 02[place] New patient,40-59min; chronic exacerbation, 2 stable chronic or 1 acute illness add add modifier 95 for video (do not use for phone, instead use 20961-69) [facility] 02[place] New patient,40-59min; chronic exacerbation, 2 stable chronic or 1 acute illness add add modifier 95 for video (do not use for phone, instead use 82013-81) [facility] 02[place]19[place]2022 RN, CN or CP time with patient by phone; use with 1111F, BP, A1c or other CPTII codes [facility], ([place]) 10/14/2022 Encounter for other specifie d aftercare RN, CN or CP time with patient by phone; use with 1111F, BP, A1c or other CPTII codes [facility] 10/14/2022 Estab. patient 30-39min; chronic exacerbation, 2 stable chronic or 1 acute illness add add modifier 95 for video, (do not use for phone, instead use 75663-81) [facility]18[place]2022 Type 2 diabetes mellitus wit h [...] (do not use for phone, instead use 27338-17) [facility] 10[place]18[place]20[place] Estab. patient 30-39min; chronic exacerbation, 2 stable chronic or 1 acute illness add add modifier 95 for video, (do not use for phone, instead use 38041-68) [facility] 10[place]18[place]20[place] Estab. patient 30-39min; chronic exacerbation, 2 stable chronic or 1 acute illness add add modifier 95 for video, (do not use for phone, instead use 08938-56) [facility] 10[place]18[place]20[place] Estab. patient 30-39min; chronic exacerbation, 2 stable chronic or 1 acute illness add add modifier 95 for video, (do not use for phone, instead use 16411-81) [facility] 10[place]18[place]20[place] Estab. patient 30-39min; chronic exacerbation, 2 stable chronic or 1 acute illness add add modifier 95 for video, (do not use for phone, instead use 62878-20) [facility] 10[place]18[place]20[place] Estab. patient 30-39min; chronic exacerbation, 2 stable chronic or 1 acute illness add add modifier 95 for video, (do not use for phone, instead use 39695-97) [facility] 10[place]18[place]20[place] Estab. patient 30-39min; chronic exacerbation, 2 stable chronic or 1 acute illness add add modifier 95 for video, (do not use for phone, instead use 13137-92) [facility] 10[place]18[place]20[place] Estab. patient 30-39min; chronic exacerbation, 2 stable chronic or 1 acute illness add add modifier 95 for video, (do not use for phone, instead use 81974-57) [facility] 10[place]18[place]20[place] Estab. patient 30-39min; chronic exacerbation, 2 stable chronic or 1 acute illness add add modifier 95 for video, (do not use for phone, instead use 00498-03) [facility] [place] 10[place]18[place]2022 Unlisted special service; to be used for medical record reviews and reporting CPTII codes (1111F, etc) [facility] ([place]/2022 Other specified health statu s Unlisted special service; to be used for medical record reviews and reporting CPTII codes (1111F, etc) [facility] [place]/25/2022 Unlisted special service; to be used for medical record reviews and reporting CPTII codes (1111F, etc) [facility] [place] 11/25/2022 No Data Available [facility] [place] 02[place]/2023 Type 2 diabetes mellitus wit h other specified complicationEmphysema, unspecifiedEnlarged prostate without lower urinary tract symptomsType 2 diabetes mellitus with diabetic polyneuropathyEssential (primary) hypertensionHyperlipidemia, unspecifiedMajor depressive disorder, single episode, in full remissionLow back pain, unspecifiedAthscl heart disease of [place] coronary artery w/o ang pctrsMorbid (severe) obesity due to excess caloriesBody mass index (BMI) 40.0-44.9, adult No Data Available [facility] No Data Available [facility] No Data Available [facility] No Data Available [facility] No Data Available [facility] No Data Available [facility] 04[place]04[place]2023 Type 2 diabetes mellitus wit [...] initial encounterAnxiety disorder, unspecified No Data Available [facility]2023 No Data Available [facility] No Data Available [facility]20[place] No Data Available [facility] No Data Available [facility] No Data Available [facility]20[place] No Data Available [facility]20[place] No Data Available [facility] 05[place]02[place]2023 Type 2 diabetes mellitus wit h other specified complicationEmphysema, unspecifiedEnlarged prostate without lower urinary tract symptomsType 2 diabetes mellitus with diabetic polyneuropathyEssential (primary) hypertensionHyperlipidemia, unspecifiedLow back pain, unspecifiedAthscl heart disease of [place] coronary artery w/o ang pctrsBody mass index (BMI) 40.0-44.9, adultMorbid (severe) obesity due to excess caloriesOther problems related to medical facilities and other health careUnspecified fall, initial encounterAnxiety disorder, unspecifiedMajor depressive disorder, recurrent, moderate No Data Available [facility]2023 No Data Available [facility]20[place] No Data Available [facility]20[place] No Data Available [facility]20[place] No Data Available [facility]20[place] No Data Available [facility] 05[place]2023 Type 2 diabetes mellitus wit h diabetic polyneuropathyType 2 diabetes mellitus with other specified complicationHyperlipidemia, unspecifiedEmphysema, unspecifiedMorbid (severe) obesity due to excess caloriesBody mass index (BMI) 40.0-44.9, adultMajor depressive disorder, recurrent, moderateEnlarged prostate without lower urinary tract symptomsEssential (primary) hypertensionLow back pain, unspecifiedOther problems related to medical facilities and other health careAnxiety disorder, unspecifiedUnspecified fall, subsequent encounter No Data Available [facility]20[place] No Data Available [facility]20[place] No Data Available [facility]20[place] No Data Available [facility] No Data Available [facility] No Data Available [facility] 07[place]2023 Type 2 diabetes mellitus wit h other specified complicationHyperlipidemia, unspecifiedLong term (current) use of insulinLong-term (current) use of injectable non-insulin antidiabetic drugsOther problems related to medical facilities and other health care No Data Available [facility] 07[place]/2023 Altered mental status, unspecified No Data Available [facility] 08/[place]/2023 Altered mental status, unspecifiedOther problems related to medical facilities and other health care No Data Available [facility] 10[place]02/2023 Type 2 diabetes mellitus wit h other specified complicationHyperlipidemia, unspecifiedOther problems related to medical facilities and other health careAltered mental status, unspecified Estab. patient 30-39min; chronic exacerbation, 2 stable chronic or 1 acute illness add add modifier 95 for video, (do not use for phone, instead use 89082-35) [facility]2023 Type 2 diabetes mellitus wit h [...] (do not use for phone, instead use 69865-05) [facility] 12[place]20[place] Estab. patient 30-39min; chronic exacerbation, 2 stable chronic or 1 acute illness add add modifier 95 for video, (do not use for phone, instead use 21300-35) [facility] 12[place]10[place]2023 Estab. patient 30-39min; chronic exacerbation, 2 stable chronic or 1 acute illness add add modifier 95 for video, (do not use for phone, instead use 34549-02) [facility] 12[place]2023 Estab. patient 30-39min; chronic exacerbation, 2 stable chronic or 1 acute illness add add modifier 95 for video, (do not use for phone, instead use 19190-60) [facility] 12[place]2023 Estab. patient 30-39min; chronic exacerbation, 2 stable chronic or 1 acute illness add add modifier 95 for video, (do not use for phone, instead use 20340-78) [facility] Estab. patient 30-39min; chronic exacerbation, 2 stable chronic or 1 acute illness add add modifier 95 for video, (do not use for phone, instead use 49455-76) [facility] Estab. patient 30-39min; chronic exacerbation, 2 stable chronic or 1 acute illness add add modifier 95 for video, (do not use for phone, instead use 43173-40) [facility] Estab. patient 30-39min; chronic exacerbation, 2 stable chronic or 1 acute illness add add modifier 95 for video, (do not use for phone, instead use 92075-68) [facility] 12[place]20[place] Estab. patient 30-39min; chronic exacerbation, 2 stable chronic or 1 acute illness add add modifier 95 for video, (do not use for phone, instead use 67187-71) [facility] 12[place]2023 No Data Available [facility] 12[place]18[place]2023 Major depressive disorder, recurrent, moderateType 2 diabetes mellitus with other specified complicationHyperlipidemia, unspecifiedPolyosteoarthritis, unspecifiedUnsteadiness on feetAnxiety disorder, unspecifiedOther problems related to medical facilities and other health careLow back pain, unspecifiedUnspecified fall, initial encounter No Data Available [facility] 12[place]18[place]2023 No Data Available [facility] 12[place]18[place]2023 No Data Available [facility] 12/18[place]2023 No Data Available [facility] 12[place]18[place]2023 No Data Available [facility] 01[place]14/2024 Essential (primary) hypertensionType 2 diabetes mellitus with other specified complicationNicotine dependence, unspecified, in remissionHyperlipidemia, unspecifiedOther problems related to medical facilities and other health care No Data Available [facility] 01/14/2024 No Data Available [facility] 01/14/2024 No Data Available [facility] 01/14/2024 No Data Available [facility] No Data Available [facility] 01[place]14/2024 No Data Available [facility] [place] 02/27/2024 Other malaiseRepeated fallsPersonal history of other medical treatment No Data Available [facility] [place] 02/27/2024 No Data Available [facility] 02/27/2024 No Data Available [facility] [place] 02/27/2024 No Data Available [facility] [place] 03/08/2024 Anxiety disorder, unspecifiedAcute upper respiratory infection, unspecifiedOther problems related to medical facilities and other health care No Data Available [facility] [place] 03/08/2024 No Data Available [facility] [place] 03/08/20[place] Estab. patient 10-29min; 1 minor problem; add add modifier 95 for video, modifier 93 for phone [facility] [place] 03[place]12/2024 Acute upper respiratory infection, unspecifiedOther problems related to medical facilities and other health care Estab. patient 10-29min; 1 minor problem; add add modifier 95 for video, modifier 93 for phone [facility] 03/12/2024 Estab. patient 10-29min; 1 minor problem; add add modifier 95 for video, modifier 93 for phone [facility] [place] 04/07/2024 Low back pain, unspecifiedOt her [...] tive Time Current Smoking Status Former smoker 2024-05-09 1 Sex Male Gender identity Man History of Procedures Procedures Service Procedure code Service date Servicing provider Phone# New patient,40-59min; chronic exacerbation, 2 stable chronic or 1 acute illness add add modifier 95 for video (do not use for phone, instead use 51144-57) [id number] 2022-02-19 No Data Available No Data Availa [...] 1111F, BP, A1c or other CPTII codes 75125 2022-10-14 No Data Available No Data Avai lable Medications prescribed in hospital were reviewed and reconciled against what they were taking prior to admission during today's visit. (1111F) 1111F 2022-10-14 No Data Available No Data Availa ble Estab. patient 30-39min; chronic exacerbation, 2 stable chronic or 1 acute illness add add modifier 95 for video, (do not use for phone, instead use 17051-47) 96757 2022-10-18 No Data Available No Data Availa [...] reviews and reporting CPTII codes (1111F, etc) 42034 2022-11-25 No Data Available No Data Availa ble DBP <80 (3078F) 3078F 2022-11-25 No Data Available No Data Available SBP < 130 (3074F) 3074F 2022-11-25 No Data Available No Data Available No Data Available [id number] 2023-02-24 No Data Available No Data Available [...] le No Data Available No Data Available [id number] 2023-05-02 No Data Available No Data Available [...] No Data Avail able No Data Available 80107 2023-05-20 No Data Available No Data Available [...] le No Data Available No Data Available [id number] 2023-07-08 No Data Available No Data Available No Data Available [id number] 2023-07-31 No Data Available No Data Available No Data Available [id number] 2023-08-26 No Data Available No Data Available No Data Available [id number] 2023-10-02 No Data Available No Data Available Estab. patient 30-39min; chronic exacerbation, 2 stable chronic or 1 acute illness add add modifier 95 for video, (do not use for phone, instead use 54149-90) [id number] 2023-12-10 No Data Available No Data Availa [...] No Data Avail able No Data Available [id number] 2023-12-18 No Data Available No Data Available [...] Available No Data Available No Data Available [id number] 2024-01-14 No Data Available No Data Available [...] No Data Availa ble No Data Available [id number] 2024-02-27 No Data Available No Data Available [...] No Data A vailable No Data Available [id number] 2024-03-08 No Data Available No Data Available [...] 95 for video, modifier 93 for phone [id number] 2024-03-12 No Data Available No Data Availa ble Medication List Documented (1159F) 1159F 2024-03-12 No Data Available No Data Colette ilable Estab. patient 10-29min; 1 minor problem; add add modifier 95 for video, modifier 93 for phone [id number] 2024-04-07 No Data Available No Data Availa ble Functional Status Functional Category Effective Dates ADLsDressing - Needs assista nceBathing - Needs assistanceToileting - Needs assistanceTransfers - Needs assistanceEating - IndependentiADLsShopping - Needs assistanceMedications - IndependentHousekeeping - Needs assistanceCooking - Needs assistanceFalls in last 6 months - Yes 2022-10-18 IT SUPPORT SPECIALIST coming in M-F only one h our per day (originally approved for 10 hours) 2023-04-04 uses cane and walker at home to ambulate 2023-12-18 IT SUPPORT SPECIALIST is his niece. [employer] 2023-12-18 has meals [...] denies monitoring BGLantus, TrulicityContinue to f/u w/ fortune cookie maker q3-6 months, monitor BG levels, discussed dietary and exercise interventions, contact us if develop hyperglycemia s/sxStableAlbuterol, FloventMonitor O2, take medications as Rx, continue f/u care w/ PCP [id number], contact us if you develop respiratory distressStableTamsulosinMonitor urine output, continue taking medication as prescribed, f/u PCP [id number], contact us if develop acute decrease in [...] denies monitoring BGLantus, TrulicityContinue to f/u w/ fortune cookie maker q3-6 months, monitor BG levels, discussed dietary and exercise interventions, contact us if develop hyperglycemia s/sxStableAlbuterol, FloventMonitor O2, take medications as Rx, continue f/u care w/ PCP [id number], contact us if you develop respiratory distressStableTamsulosinMonitor urine output, continue taking medication as prescribed, f/u PCP [id number], contact us if develop acute decrease in [...] denies monitoring BGLantus, TrulicityContinue to f/u w/ fortune cookie maker q3-6 months, monitor BG levels, discussed dietary and exercise interventions, contact us if develop hyperglycemia s/sxStableAlbuterol, FloventMonitor O2, take medications as Rx, continue f/u care w/ PCP [id number], contact us if you develop respiratory distressStableTamsulosinMonitor urine output, continue taking medication as prescribed, f/u PCP [id number], contact us if develop acute decrease in [...] coping mechanisms and benefits of potential verbal ayozyqx00/18/23: feels more calm now that he's home; [...] denies monitoring BGLantus, TrulicityContinue to f/u w/ fortune cookie maker q3-6 months, monitor BG levels, discussed dietary and exercise interventions, contact us if develop hyperglycemia s/sxCONTINGENCY PLANMember to call for the following symptoms: Blood sugar <70/ Blood sugar >300/ More thirsty than usual/ Urinating more than usualPlanned intervention:StableAlbuterol, FloventMonitor O2, take medications as Rx, continue f/u care w/ PCP [id number], contact us if you develop respiratory distressStableTamsulosinMonitor urine output, continue taking medication as prescribed, f/u PCP [id number], contact us if develop acute decrease in [...] denies monitoring BGLantus, TrulicityContinue to f/u w/ fortune cookie maker q3-6 months, monitor BG levels, discussed dietary and exercise interventions, contact us if develop hyperglycemia s/sxCONTINGENCY PLANMember to call for the following symptoms: Blood sugar <70/ Blood sugar >300/ More thirsty than usual/ Urinating more than usualPlanned intervention:StableAlbuterol, FloventMonitor O2, take medications as Rx, continue f/u care w/ PCP [id number], contact us if you develop respiratory distressStableTamsulosinMonitor urine output, continue taking medication as prescribed, f/u PCP [id number], contact us if develop acute decrease in [...] denies monitoring BGLantus, TrulicityContinue to f/u w/ fortune cookie maker q3-6 months, monitor BG levels, discussed dietary and exercise interventions, contact us if develop hyperglycemia s/sxCONTINGENCY PLANMember to call for the following symptoms: Blood sugar <70/ Blood sugar >300/ More thirsty than usual/ Urinating more than usualPlanned intervention: 05/20/23: had episodes of hypoglycemia in STR; have decreased lantus to 60Units per nightStableAlbuterol, FloventMonitor O2, take medications as Rx, continue f/u care w/ PCP [id number], contact us if you develop respiratory distressStableTamsulosinMonitor urine output, continue taking medication as prescribed, f/u PCP [id number], contact us if develop acute decrease in [...] joint pain increased [facility]. Follow-up with Don as [...] denies monitoring BGLantus, TrulicityContinue to f/u w/ fortune cookie maker q3-6 months, monitor BG levels, discussed dietary [...] date) tx from the hospital to a intermediate for advanced dementia per cg. I left [...] date) tx from the hospital to a intermediate for advanced dementia per cg. I left a message to the patient's son Manuel for add. information. Placed member on hold due to placement.08/26/23: Son reports that the patient returned home 2 weeks ago from SNF. The family has been providing / support but he reports that the patient needs more IT SUPPORT SPECIALIST hours to continue to providing adequate care. I provided [facility] number for follow up. Denies any [...] modifier 95)Continue to see PCP. Follow-up with Don as needed for any acute or disease education needs that may arise 30/09.Type 2 diabetes mellitus with HLDNo A1c on EMR, Pt denies monitoring BGLantus, TrulicityContinue to f/u w/ fortune cookie maker q3-6 months, monitor BG levels, discussed dietary [...] reports that the patient recently started with IT SUPPORT SPECIALIST (niece) to help with his care. He was previously non-compliant with his medications and insulin; IT SUPPORT SPECIALIST Crystal is helping with his medication management [...] date) tx from the hospital to a intermediate for advanced dementia per cg. I left a message to the patient's son Manuel for add. information. Placed member on hold due to placement.08/26/23: Son reports that the patient returned home 2 weeks ago from SNF. The family has been providing 24/7 support but he reports that the patient needs more IT SUPPORT SPECIALIST hours to continue to providing adequate care. I provided [facility] number for follow up. Denies any [...] denies monitoring BGLantus, TrulicityContinue to f/u w/ fortune cookie maker q3-6 months, monitor BG levels, discussed dietary [...] reports that the patient recently started with IT SUPPORT SPECIALIST (niece) to help with his care. He was previously non-compliant with his medications and insulin; IT SUPPORT SPECIALIST Crystal is helping with his medication management due to BS in 300's avg.StableAlbuterol, FloventMonitor O2, take medications as Rx, continue f/u care w/ PCP [id number], contact us if you develop respiratory distressStableTamsulosinMonitor urine output, continue taking medication as prescribed, f/u PCP [id number], contact us if develop acute decrease in urine outputStableGabapentin, Lantus, TrulicityMonitor sensation of BLE, continue taking medications as Rx, monitor BG levels, discussed diabetic dietary and exercise interventions, contact us if neuropathy worsen/: Worse symptom out of all chronic issues is neuropathyStablePt denies monitoring BPLisinopril, MetoprololDiscussed dietary and exercise interventions, f/u w/ PCP q6-12 months, contact us develop emergent HTN s/sx10//BP 150/76 today but in pain and frustrated about reduced IT SUPPORT SPECIALIST hours. Please keep a log and we [...] joint pain increased [facility]. Follow-up with [facility] as needed for any acute or disease education needs that may arise 30/09.what should be done when the member calls: see each individual diagnosis for contingency planfall 04/03/23: from chair neck pain today /10did not hit his head taking tylenol arthritis [...] PT - asking PCP.Due to not enough IT SUPPORT SPECIALIST presence, has fallen a number of times recently, and hurt his ribs badly.Also needs medication reminders. Reduced IT SUPPORT SPECIALIST hours because they were sending meals on wheels. IT SUPPORT SPECIALIST has been with him since August and [...] (with food)Patient verbalized understanding. Caregiver verbalized understanding.Reduced IT SUPPORT SPECIALIST hours because they were sending meals on wheels but has not received the meals yet.Also needs medication reminders now that his IT SUPPORT SPECIALIST is not there as much - at risk for noncompliance.Reduced IT SUPPORT SPECIALIST hours because they were sending meals on wheels. IT SUPPORT SPECIALIST has been with him since August and [...] joint pain increased Please remember [facility]. [facility] for any acute or disease education needs that may arise 30/09.what should be done when the member calls: see each individual diagnosis for contingency planStableCymbaltaContinue taking medications, practice core ROM exercises as tolerable, contact us if develop increase in low back pain without reliefType 2 diabetes mellitus with HLDNo A1c on EMR, Pt denies monitoring BGLantus, TrulicityContinue to f/u w/ fortune cookie maker q3-6 months, monitor BG levels, discussed dietary [...] reports that the patient recently started with IT SUPPORT SPECIALIST (niece) to help with his care. He was previously non-compliant with his medications and insulin; IT SUPPORT SPECIALIST Crystal is helping with his medication management [...] denies monitoring BGLantus, TrulicityContinue to f/u w/ fortune cookie maker q3-6 months, monitor BG levels, discussed dietary [...] reports that the patient recently started with IT SUPPORT SPECIALIST (niece) to help with his care. He was previously non-compliant with his medications and insulin; IT SUPPORT SPECIALIST Crystal is helping with his medication management due to BS in 300's avg.10.10.24: reports his BS have decreased. Now <200 average. Is f/u wit pcp and reports good bs and good BP during visit no records available to review today01/14/2024 patient visited fortune cookie maker this week . patient states that his BG is controlled for the most part.StablePt denies monitoring BPLisinopril, MetoprololDiscussed dietary and exercise interventions, f/u w/ PCP q6-12 months, contact us develop emergent HTN s/sx1/05/03BP 150/76 today but in pain and frustrated about reduced IT SUPPORT SPECIALIST hours. Please keep a log and we [...] at home and decided to get looked at.IT SUPPORT SPECIALIST hours were reduced just as he is getting weaker and his walking is unsafe.Needs PT - asking PCP.Due to not enough IT SUPPORT SPECIALIST presence, has fallen a number of times recently, and hurt his ribs badly.Also needs medication reminders. Reduced IT SUPPORT SPECIALIST hours because they were sending meals on wheels. IT SUPPORT SPECIALIST has been with him since August and [...] to seek medical assistance or to call [facility].03/08/24 Patient reports fever, chills and congestion [...] modifier 95)Continue to see PCP. Follow-up with [facility] as needed for any acute or [...] joint pain increased Please remember [facility]. [facility] as needed for any acute or disease education needs that may arise 30/09.what should be done when the member calls: see each individual diagnosis for contingency plan 2024-04-07 05:25:01 Estab. patient 10-29 min; 1 minor problem; add add modifier 95 for video, modifier 93 for phoneContinue to see PCP. [facility] needed for any acute or disease education needs that may arise 30/09.Add Contingency PlanStableCymbaltaContinue taking medications, practice core ROM exercises as tolerable, contact us if develop increase in low back pain without reliefER visit on 03/19/24 at [facility] for back pain. He reports feeling [...] precipitating factors: ER visit on 03/19/24 at [facility] for back pain. He reports feeling better, he will follow up with PCP.
== END 2024-05-28 15:44 | disposition home or self-care (01) ==
LOC: HO.ENCR 14:56
PROVIDERS: PCP Internal Medicine; Visit Provider Physician Assistant Medical
DX: E11.42 Type 2 diabetes mellitus with diabetic polyneuropathy (principal); Z79.4 Long term (current) use of insulin

== ENCOUNTER → 2024-05-28 14:55 | Outpatient (BNVA) | payer OTHER, SELFPAY | PROVIDERS: PCP Internal Medicine; Visit Provider Physician Assistant Medical | DX: E11.42 Type 2 diabetes mellitus with diabetic polyneuropathy (principal); Z79.4 Long term (current) use of insulin; Z79.84 Long term (current) use of oral hypoglycemic drugs | CPT/HCPCS: 82947; 99212 ==

== ENCOUNTER 2024-06-03 22:15 | Emergency (ER) | payer OTHER, SELFPAY ==
[2024-06-03 22:23] VITALS: BP 157/43; PULSE 63; RESP 18; TEMP 36.8; O2SAT 93; BMI 37.0
[2024-06-03 22:35] LABS: MANUAL DIFF FLAG NO
[2024-06-03 22:36] LABS: Basophils Percent Auto 0.2 % (0-2); Eosinophils Absolute Auto 0.1 X10*3/uL (0.0-0.4); Eosinophils Percent Auto 0.9 % (0-4); Hematocrit 33.9 % (42.0-52.0); Hemoglobin 11.6 g/dl (14.0-18.0); Imm Gran Abs Auto 0.04 X10*3/uL (0.00-0.03); Imm Gran Pct Auto 0.4 % (0.0-0.4); Lymphocytes Absolute Auto 2.3 X10*3/uL (1.2-4.9); Lymphocytes Percent Auto 20.4 % (20-40); Mean Corpuscular HGB Conc 34.2 g/dl (31.0-36.0); Mean Corpuscular Hemoglobin 29.4 pg (27.0-33.0); Mean Platelet Volume 11.6 fL (9.4-12.4); Monocytes Absolute Auto 0.6 X10*3/uL (0.1-1.2); Monocytes Percent Auto 5.1 % (2-11); Neutrophils Absolute Auto 8.2 x10*3/uL (2.0-8.3); Platelet Count 223 X10*3/uL (160-400); Red Blood Count 3.94 X10*6/uL (4.60-5.80); Red Cell Distribution Width 12.3 % (11.0-16.0); White Blood Count 11.2 X10*3/uL (4.8-10.8)
[2024-06-03 22:50] LABS: Alanine Aminotransferase 22 U/L (0-40); Albumin Level 3.7 g/dL (3.5-5.0); Alkaline Phosphatase 107 U/L (39-117); Anion Gap 14 (12-20); Aspartate Amino Transferase 30 U/L (5-37); Bilirubin Total 0.5 mg/dL (0.0-1.0); Blood Urea Nitrogen 17 mg/dL (9-16); Calcium 9.2 mg/dL (8.4-10.2); Carbon Dioxide 26 mmol/L (22-29); Chloride 103 mmol/L (96-108); Creatinine Clr Calc Pharmacy 59.6; Estimated Glomerular Filt Rate 60; Glucose Random 302 mg/dL (60-115); Potassium 4.4 mmol/L (3.3-5.1); Sodium 139 mmol/L (135-145); Total Protein 6.7 g/dL (6.5-8.0)
[2024-06-04 01:27] VITALS: BP 154/57; PULSE 61; RESP 16; TEMP 36.7; O2SAT 97
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
--- NOTE | 2024-06-04 02:31 | PC.NURSE ---
Pt refusing IV and CT scan. Very disrespectful to staff- RN, PCT, and MD. Plan for PO meds and DC home.
[2024-06-04] MEDS: Dicyclomine HCl 10 MG CAPSULE 20 MG PO (02:49)
[2024-06-04] MEDS: Ondansetron ODT 4 MG TAB.RAPDIS TRANSLINGU (02:49)
[2024-06-04 02:55] VITALS: BP 154/57; PULSE 61; RESP 16; TEMP 36.7; O2SAT 97
== END 2024-06-04 02:56 | disposition home or self-care (01) ==
PROVIDERS: Emergency Provider Internal Medicine; PCP Internal Medicine
DX: R10.9 Unspecified abdominal pain (principal); E11.9 Type 2 diabetes mellitus without complications; I10 Essential (primary) hypertension; E78.00 Pure hypercholesterolemia, unspecified; Z87.891 Personal history of nicotine dependence; Z79.02 Long term (current) use of antithrombotics/antiplatelets; Z79.4 Long term (current) use of insulin; Z79.899 Other long term (current) drug therapy; Z79.84 Long term (current) use of oral hypoglycemic drugs
CPT/HCPCS: 36415; 80053; 85025; 99282; 99283

== ENCOUNTER 2024-06-11 09:59 | Outpatient (AMB) | payer OTHER, SELFPAY ==
--- NOTE | 2024-06-11 10:02 | MHC.OFFVIS ---
Vital Signs 06/11/24 10:10 06/11/24 11:06 Height 5 ft 4 in Weight 217 lb 9.54 oz BMI 37.3 BP 98/44 L 96/44 L Blood Pressure Location Lt brachial Position Sitting Pulse 70 Pulse Source Pulse Oximeter Pulse Oximetry (%) 98 Oxygen Delivery Method Room Air Intake Visit Reasons: Type II diabetes Intake Note: Patient present today to follow up on Type 2 Diabetes Mellitus. Last Diabetic Eye exam: 11/14/2023 Last Podiatry Visit: Does not see a Service Delivery Director Random Glucose: 336 mg/dl HgA1C: 10.2% 04/23/2024 Gas Adjuster Required: Yes Gas Adjuster Language: Blackjack Supervisor Services: Gas Adjuster Offered & Declined Accompanied by: BULK PLANT AGENT Allergies hydromorphone [Dilaudid] Adverse Reaction (Unknown, Verified 06/11/24 10:10) confusion From DILAUDID Adverse Reaction (Severe, Uncoded 06/11/24 10:10) CONFUSION/HALLUCIATIONS From PERCOCET Adverse Reaction (Intermediate, Uncoded 06/11/24 10:10) AGITATION Medication List - Last Reconciled 06/11/24 by SLOAN Pedersen [Active Mal guard pads 6 x 11 As directed] albuterol sulfate 90 mcg/actuation 2 puffs PO Q4-6H PRN aspirin 81 mg PO DAILY atorvastatin 80 mg PO DAILY 90 days blood sugar diagnostic (OneTouch Ultra Test strips) test 3 times per day blood sugar diagnostic 1 strip miscellaneous TID blood-glucose meter (OneTouch Ultra2 Meter) test 3 times per day blood-glucose sensor (FreeStyle Iwona 3 Sensor device) As directed blood-glucose,director new product,cont (FreeStyle Iwona 3 [place]) as directed cholecalciferol (vitamin D3) (Vitamin D3) 50 mcg PO DAILY [Cleansing wipes As directed] cyanocobalamin (vitamin B-12) 1,000 mcg PO DAILY 90 days dicyclomine 20 mg PO TID PRN dicyclomine 20 mg PO QID PRN [Disposable 30x30 polymer pads heavy floweds As directed] docusate sodium 100 mg PO BID PRN 30 days fluticasone propionate 50 mcg/actuation 1 spray intranasal DAILY gabapentin 400 mg PO TID glucose 16 grams (4 x 4 gram) PO Q15M hydroxyzine HCl 25 mg PO Q6H PRN 30 days insulin glargine U-300 conc (Toujeo Max U-300 SoloStar) 120 units (0.4 mL) subcut BEDTIME insulin lispro (Humalog KwikPen (U-100) Insulin) 2 - 12 units subcut .TIDAC insulin syr/ndl U100 half gareth Use 4 times daily lancets (OneTouch Delica Lancets) As directed 3 times a day lidocaine 5% 1 patch topical DAILY lisinopril 10 mg PO DAILY 90 days lorazepam (Ativan) 1 mg PO BEDTIME PRN metaxalone 800 mg PO BEDTIME metformin ER 1,500 mg (3 x 500 mg) PO DAILY 90 days metoclopramide HCl (Reglan) 10 mg PO AC PRN metoprolol tartrate 50 mg PO BID [monthly medication organizer (med box) monthly medication organizer box; ] [Monthly Medication Organizer (Med-Box) ] naproxen 500 mg PO BID PRN omeprazole 40 mg PO DAILY ondansetron 4 mg PO Q6-8H PRN ondansetron 4 mg PO Q8H PRN ondansetron HCl 4 mg PO Q6H PRN oxybutynin chloride ER 10 mg PO DAILY paroxetine HCl 40 mg PO DAILY pen needle, diabetic (Lite Touch Insulin Pen Letart) Use 3 times daily pen needle, diabetic (BD Ultra-Fine Original Pen Needle) 3 times daily pen needle, diabetic (BD Ultra-Fine Brittany Pen Needle) test 3 times daily phenazopyridine (Pyridium) 200 mg PO TID 2 days polyethylene glycol 3350 (Miralax) 17 grams PO DAILY PRN [Powder free synthetic exam gloves As directed] [Semi-Electric Hospital Bed As directed] [SHOWER CHAIR As directed] [SHOWER CHAIR As directed] tamsulosin (Flomax) 0.4 mg PO BEDTIME [WALKER As directed] walker As directed HPI Comments Details: This is a 69-year-old male with a past medical history of type 2 diabetes with neuropathy, dementia, JAIME, hyperlipidemia, hypercholesterolemia, CAD, depression and depression presenting for management of type 2 diabetes. Accompanied by Fidelia MENDEZ. Declined title search manager. He is not feeling well. They tell me that for the past week he has a sore throat, headache, shakiness and weakness. He had a low-grade fever last night up to 100 degrees. He had no fever this morning, but he did take 2 tablets of Tylenol. Throat feels a little bit better since taking that, but he has not been able to eat and drink very much. Says that his throat hurts too much to swallow. Today he only had a small amount of applesauce and mor gerry, and he is drinking some water. Endorses dizziness. He is using his walker, but his BULK PLANT AGENT says as of this morning he seems more unsteady. Went to the ED 06/04/2024 for evaluation of abdominal pain and was discharged. Denies abdominal pain today. Denies chest pain, shortness of breath, palpitations. His blood pressure was high when they were checking it at home as evidenced by the log they presented today, but today his blood pressure is low now at 96/44. His blood sugar is 336. Patient was unable to be assisted to the restroom to check urine for ketones because he felt too weak. He has a history of frequent falling. He was diagnosed with diabetes in 1981. Usually accompanied by his niece, Crystal (phone [phone]). Fidelia says he has a skilled nurse coming twice per week and PT and OT. Reviewed Iwona 3 download Average glucose 245 Glucose management indicator 9.2% Glucose variability 23.7% Very high 52% High 36% Target range 12% 0% hypoglycemia. Patient has hyperglycemia throughout the 24 hour period. Current regimen: Lantus 60 units in the morning and 50 units at night, metformin extended release 500 mg 2 tabs qam and 1 tab at night, Humalog per sliding scale. Humalog sliding scale 200-250: 2 units 251-300: 4 units 301-350: 6 units 351-400: 8 units Over 400: 10 units Previous medications: He was previously on Trulicity. Discontinued-history of pancreatitis. He has not taken an SGLT2, but he has a history of UTI and intertrigo. Microvascular complications: Neuropathy, nephropathy (CKD) Macrovascular complications: CAD, TIA in 1996 and 2009 ROS: Constitutional: + low grade fevers as of yesterday, no chills, +fatigue and increased weakness from baseline Eyes: No vision changes or loss of vision Respiratory: Denies cough, wheezing or shortness of breath Cardiovascular: Denies chest pain, chest pressure and palpitations. Gastrointestinal: No anorexia, nausea, vomiting or diarrhea. No abdominal pain : Denies dysuria, urinary frequency and hematuria Neurologic: +dizziness and increase shakiness Endocrine: No cold or heat intolerance. No polyuria Physical exam: Constitutional: In no acute distress but appears fatigued. Throat: Tonsils 2+ and erythematous without exudates. Eyes: Pupils are equal, round and reactive to light. Extraocular muscles intact. Neck: Supple, Full range of motion. No lymphadenopathy. Respiratory: Clear to auscultation. Cardiovascular: S1 S2 regular. No murmurs. Neurologic: He answers questions when asked and maintains eye contact when I am speaking to him. He is very shaky and unsteady when trying to stand and walk using his walker with assistance. Extremities: No lower extremity edema [facility] Medical History (Updated 06/11/24 @ 11:15 by SLOAN Pedersen) Decreased oral intake Sore throat Weakness At risk for elder neglect Anxiety Type 2 diabetes mellitus with neurologic complication Gastritis and duodenitis Vitamin B12 deficiency Hyperkalemia Intertrigo Major depressive disorder, recurrent Benign prostatic hyperplasia with urinary frequency Constipation Obstructive sleep apnea Vitamin D deficiency Diabetic polyneuropathy Diabetes mellitus Obesity (BMI 30-39.9) Benign essential hypertension Pure hypercholesterolemia Coronary artery disease Surgical History Hx of cataract extraction (~2011) History of quadruple bypass (~2005) Hx of cystoscopy History of prostate surgery (~12/04/10) Hx of cholecystectomy (~2007) Family History Father Lung cancer Mother Diabetes Hypertension Stomach cancer Social History Household Members: None Housing: Apartment Do you presently have visiting nurse or other home services: No Alcohol intake: never Patient Tobacco Use Status: Former Tobacco user e-Cigarette/Vaping Use: Never Used Second Hand Smoke Exposure: No Advance Directives Date on File: 07/24/23 service: No Current occupational status: disabled Cognitive needs: Yes (cane) Hearing needs: No Vision needs: Yes Physical Exam Vital Signs: Last Vital Signs Pulse 70 06/11/24 10:10 BP 98/44 L 06/11/24 10:10 Pulse Ox 98 06/11/24 10:10 Oxygen Delivery Method Room Air 06/11/24 10:10 BMI result Body Mass Index 37.3 Office Procedures Glucose Monitoring Details Details: see [facility] [address] - Glucose monitoring, continuous-physician I&R Procedure code (CPT) selection complete Results Reviewed Results Reviewed: Laboratory Last Values Glucose (Clinic) 336 mg/dL (60-115) H 06/11/24 10:16 Laboratory Tests 09/09/22 05/09/23 07/23/23 09:41 11:47 17:24 Creatinine 1.41 H Estim Creat Clear Calc 57.6 Estimated GFR 50 Hgb A1c (Clinic) AST 18 ALT 20 B-Natriuretic Peptide 88 Triglycerides 251 Cholesterol 146 LDL Cholesterol, Calc 69 HDL Cholesterol 27 Vitamin B12 10/04/23 03/04/24 04/23/24 09:02 23:09 14:55 Creatinine 1.38 Estim Creat Clear Calc Estimated GFR 51 Hgb A1c (Clinic) 10.2 H AST 29 ALT 22 B-Natriuretic Peptide Triglycerides Cholesterol LDL Cholesterol, Calc HDL Cholesterol Vitamin B12 1741 H Assessment & Plan Assessment & Plan (1) Type 2 diabetes mellitus with neurologic complication: Code(s): E11.49 - Type 2 diabetes mellitus with other diabetic neurological complication Category: Medical Qualifiers: Diabetes mellitus terminal gauger supervisor insulin use: with terminal gauger supervisor use Diabetes mellitus complication detail: with polyneuropathy Qualified Code(s): E11.42 - Type 2 diabetes mellitus with diabetic polyneuropathy; Z79.4 - terminal superintendent (current) use of insulin (2) Weakness: Code(s): R53.1 - Weakness Category: Medical (3) Sore throat: Code(s): J02.9 - Acute pharyngitis, unspecified Category: Medical (4) Decreased oral intake: Code(s): R63.8 - Other symptoms and signs concerning food and fluid intake Category: Medical Plan In summary this is a 69-year-old male with uncontrolled type 2 diabetes with micro and macrovascular complications on basal-bolus insulin and metformin with hyperglycemia today and 1 week of headache, sore throat, decreased oral intake. Now has increased shakiness and weakness this morning and low blood pressure. He has a history of frequent falls. Advised patient I am recommending transport by ambulance to the ER for evaluation. I am concerned he may have an underlying viral or bacterial infection and is now dehydrated along with hyperglycemia. They agreed. EMS transported patient to the hospital. Continue Metformin 2 pills in the morning and 1 pill at in the evening Stop lantus 60 units in the morning and 50 units at night and start Toujeo 120 units every evening. Adjust Humalog sliding scale blood sugar 150-200 take 2 units blood sugar 201-250: take 4 units blood sugar 251-300: take 6 units blood sugar 301-350: take 8 units blood sugar 351-400: take 10 units blood sugar Over 400: take 12 units Reviewed treatment of hypo/hyperglycemia. Follow up in 2 weeks for type 2 diabetes. Orders: Orders AMB Glucose Monitoring Today SLOAN Pedersen E11.9 - Type 2 diabetes mellitus without complications AMB Ketone Urine Dipstick Today SLOAN Pedersen Z13.9 - Encounter for screening, unspecified Medications: New insulin glargine U-300 conc (Toujeo Max U-300 SoloStar) 120 units (0.4 mL) subcut BEDTIME 18 mL 3RF SLOAN Pedersen Changed From insulin lispro (Humalog KwikPen (U-100) Insulin) 15 - 20 units (0.15 - 0.2 mL) subcut .TIDAC 15 mL 3RF To insulin lispro (Humalog KwikPen (U-100) Insulin) 2 - 12 units subcut .TIDAC Jerry Persaud MD Discontinued insulin glargine (Lantus Solostar U-100 Insulin) Discontinued Reason: Doctor's Order Take 60 units every morning and 56 units every evening subcutaneously 15 mL 3RF Patient Instructions: Cotinue Metformin 2 pills in the morning and 1 pill at in the evening Stop lantus 60 units in the morning and 50 units at night and start Toujeo 120 units every evening. Adjust sliding scale Humalog sliding scale blood sugar 150-200 take 2 units blood sugar 201-250: take 4 units blood sugar 251-300: take 6 units blood sugar 301-350: take 8 units blood sugar 351-400: take 10 units blood sugar Over 400: take 12 units Coding Level of Care Code Est Pt Level 5 (05492) Diagnoses Type 2 diabetes mellitus with diabetic polyneuropathy, with long-term current use of insulin E11.42; Z79.4 Diabetes mellitus skilled nursing insulin use: with terminal gauger supervisor use Diabetes mellitus complication detail: with polyneuropathy Weakness R53.1 Sore throat J02.9 Decreased oral intake R63.8 CPT Codes Details - CPT: 02716 - Glucose monitoring, continuous-physician I&R ([id number]) Time Spent (min) 48 Comment Direct patient care, completing documentation
[2024-06-11 10:10] VITALS: BP 98/44; PULSE 70; O2SAT 98; BMI 37.3
[2024-06-11 10:21] LABS: Glucose, Whole Blood 336 mg/dL (60-115)
[2024-06-11 11:06] VITALS: BP 96/44
--- OUTSIDE RECORDS SUMMARY | 2024-06-11 11:19 | XMS_ITS ---
Author Name Tammy Vega NP Address [address] [place] [address] Phone [phone] [facility] [facility] Care Team Providers Care Egg Breaker Name Role Phone Cale Vegakiara Unavailable [phone] [facility] Unavailable Unavailable Unavailable Unavailable Unavailable Unavailable Unavailable [facility] Unavailable HungJerry carrillo Unavailable [phone] Reason for Referral Not Available Allergies, adverse [...] MOUTH DAILY 2021-09-12 No Data Available Gabapentin 200 mg Cap 1 capsules orally TID 2021-03-28 No Data Available Lantus SoloStar 100 UNIT/ML Solution Pen-injector Subcutaneous 35U IN THE EVENING. 2021-05-14 No Data Available B-D PEN NDL SHRT [id number](07/23) ANNAMARIE USE TO INJECT 3 TIMES DAILY 2021-06-05 2023-12-12 Clotrimazole-Betamethasone 1-0.05 % Crm APPLY TOPICALLY TO THE AFFECTED AREA TWICE DAILY FOR 15 DAYS 2021-11-26 No Data Available Lisinopril 10 mg Tab TAKE 1 TABLET BY [facility] DAILY 2022-02-05 2024-06-01 Trulicity 1.5 mg/0.5ML Solution Pen-injector ADMINISTER 1.5 [...] 2022-03-12 No Data Available OneTouch Delica Plus [id number] Miscellaneous TEST BLOOD SUGAR THREE TIMES DAILY [...] 40 mg Tab TAKE 1 TABLET BY [facility] DAILY 2022-07-12 No Data Available Polyethylene Glycol 3350 17 GM Packet Mix 1 packet in 8 ounces of water, juice, coffee or tea and drink once a day 2022-07-14 No Data Available Vitamin D3 50 mcg (2,000 unit) capsule TAKE 1 CAPSULE BY MOUTH DAILY 2021-09-07 No Data Available predniSONE 20 mg Tab TAKE 2 TABLETS BY [facility] DAILY x 3days 2022-10-11 2022-10-18 Aspirin 81 [...] needed for moderate to severe anxiety 2023-04-04 2024-06-01 Docusate Sodium 100 mg Cap TAKE 1 CAPSUL E BY MOUTH DAILY 2023-03-08 No Data Available UltiCare Pen Needle 32 gauge x 5/32 USE THREE TIMES DAILY 2023-04-02 2023-12-12 Trulicity 1.5 mg/0.5ML Solution Pen-injector INJECT ONE PEN (=1.5MG) SUBCUTANEOUSLY ONCE A WEEK DIRECTED 2022-08-06 2024-06-01 Esomeprazole Magnesium 40 mg Cap delayed rel TAKE 1 CAPSULE BY MOUTH EVERY DAY 2023-05-26 2024-06-08 Flexeril (cyclobenzaprine) 1 0 mg ADVISED TO HOLD UNLESS ABSOLUTELY NECESSARY 1 po TID prn 2023-12-10 2023-12-18 Naproxen 500 mg Tab 1 tablet by mouth tw ice a day as needed for pain 2023-12-10 No Data Available Dicyclomine 20 mg Tab 1 tablet orally 2 times a day PRN 2023-12-10 No Data Available Metoclopramide 10 mg Tab 1 tablet orally 3 times per day before meals and QHS PRN 2023-12-10 2024-06-01 BD ULTRA-FINE SHAJI PEN NEEDL E 32 GAUGE X 5/32 USE THREE TIMES DAILY 2023-04-02 2023-12-12 TechLITE Pen Needle 32 gauge x 5/32 USE THREE TIMES DAILY 2023-04-02 2023-12-12 Phenazopyridine 200 mg Tab TAKE 1 TABLET BY MOUTH THREE TIMES DAILY FOR 2 DAYS 2023-11-04 2024-06-01 Cefuroxime Axetil 250 mg Tab TAKE 1 TABL ET BY MOUTH TWICE DAILY FOR 7 DAYS 2023-11-04 No Data Available prednisoLONE Acetate 1 % Suspension INSTILL 1 DROP IN THE RIGHT EYE THREE TIMES DAILY FOR 2 WEEKS 2023-11-14 2024-06-01 Cyclobenzaprine 10 mg Tab TAKE 1 TABLET BY MOUTH THREE TIMES DAILY NEEDED FOR MUSCLE SPASMS 2023-12-09 No Data Available metFORMIN ER 500 mg Tab ER 24hr TAKE 1 TABLET BY MOUTH BID 2023-12-12 No Data Avail able Tresiba FlexTouch 200 UNIT/M L Solution Pen-injector INJECT 100 UNITS SUBCUTANEOUSLY EVERY DAY 2023-12-12 2024-06-01 glucose 4 gram chewable tablet CHEW 4 [...] NEEDED FOR ANXIETY OR for SLEEP 2024-03-03 2024-06-01 Azithromycin 250 mg Tab TAKE 2 TABLETS B Y MOUTH ON DAY 1, THEN TAKE 1 TABLET DAILY ON DAYS 2-5 2024-03-08 No Data Available TechLITE Pen Needle 32 gauge x 5/32 USE THREE TIMES DAILY 2023-04-02 No Data Available Clopidogrel Bisulfate 75 mg Tab TOME 1 TABLETA POR V A ORAL TODOS LOS D 2024-05-03 2024 hydrALAZINE 25 mg Tab 1 tablet 2 time daily 2024-05-03 No Data Available Lidocaine 5 % Patch 1 patch topically to affected area daily remove after 12 hours PRN Pain 2024-06-08 No Data Available Ondansetron 4 mg Tab Disintegrating 1 tablet orally every 8 hours prn 2024-06-08 No Data Available Furosemide 20 mg Tab Take 1 tablet daily 2024-06-08 No Data Available Memantine 5 mg Tab TAKE 1 TABLET BY SHAN[facility] TH TWICE DAILY 2024-06-07 No Data Available QUEtiapine Fumarate 25 mg Tab TAKE 1 TAB LET BY MOUTH AT BEDTIME 2024-06-07 No Data Available Clopidogrel Bisulfate 75 mg Tab take 1 tablet by mouth daily 2024-06-09 No Data Available Problem List Problem Status Onset Date Resolved Date BPH (benign prostatic hyperplasia) Active 2021-03 2-13 N/A Hyperlipidemia Active 2022-02-19 N/A Morbid (severe) obesity due to excess calories Active 2022-02-25 N/A Coronary artery disease Active 2022-02-23 N/A MDD (major depressive disord er), recurrent episode, moderate Active 2023-04-04 N/A Osteoarthritis, multiple sites Active 2023-12-18 N/A Unsteady gait Active 2023-12-18 N/A Anxiety Active 2024-03-08 N/A Low back pain Active 2022-02-23 N/A Upper respiratory infection Resolved 2024-03-08 2024-06-04 Abdominal pain Active 2024-06-04 N/A Fall, initial encounter Active 2023-04-04 N/A Incontinence Active 2024-06-08 N/A History of recent hospitalization Active 2024-02 N/A Chronic obstructive airway d iseasePulmonary emphysema, unspecified emphysema type Active 2022-02-19 N/ A Altered mental state Resolved 2023-07-312024-06 Diabetes mellitus with other complicationsHLD Active 2022-02-19 N/A Other problems related to [facility] facilities and other health care Active 2024-03-08 N/A URI (upper respiratory infection) Active 2024-06 N/A Hypertension Active 2022-02-19 N/A Diabetic peripheral neuropat hy associated with type 2 diabetes mellitus Active 2022-02-19 N/A Encounters Encounters Type Facility Date of Service Diagnosis/Co mplaint New patient,40-59min; chronic exacerbation, 2 stable chronic or 1 acute illness add add modifier 95 for video (do not use for phone, instead use 52329-10) [facility], ([place]) 02[place]19[place]2022 Morbid (severe) obesity due to excess caloriesBody mass index (BMI) 40.0-44.9, adultChronic obstructive pulmonary disease, unspecifiedEnlarged prostate without lower urinary tract symptomsType 2 diabetes mellitus with diabetic polyneuropathyEssential (primary) hypertensionHyperlipidemia, unspecifiedMajor depressive disorder, single episode, in full remissionLow back pain, unspecifiedAthscl heart disease [place] coronary artery w/o ang pctrsType 2 diabetes mellitus with other specified complicationLong term (current) use of insulin New patient,40-59min; chronic exacerbation, 2 stable chronic or 1 acute illness add add modifier 95 for video (do not use for phone, instead use [id number]) [facility], [place] 02[place]19/2022 New patient,40-59min; chronic exacerbation, 2 stable chronic or 1 acute illness add add modifier 95 for video (do not use for phone, instead use 30039-79) [facility] [place] New patient,40-59min; chronic exacerbation, 2 stable chronic or 1 acute illness add add modifier 95 for video (do not use for phone, instead use 65768-48) [facility] 02[place] New patient,40-59min; chronic exacerbation, 2 stable chronic or 1 acute illness add add modifier 95 for video (do not use for phone, instead use 01060-05) [facility] [place] 02[place] New patient,40-59min; chronic exacerbation, 2 stable chronic or 1 acute illness add add modifier 95 for video (do not use for phone, instead use 74181-89) [facility], [place] 02/19/2022 RN, CN or CP time with patient by phone; use with 1111F, BP, A1c or other CPTII codes [facility], ([place]) 10/14/2022 Encounter for other specifie d aftercare RN, CN or CP time with patient by phone; use with 1111F, BP, A1c or other CPTII codes [facility], ([place]) 10/14/2022 Estab. patient 30-39min; chronic exacerbation, 2 stable chronic or 1 acute illness add add modifier 95 for video, (do not use for phone, instead use 95155-32) [facility] [place] 10[place]18/2022 Type 2 diabetes mellitus wit h [...] (do not use for phone, instead use 78371-62) [facility]18[place] Estab. patient 30-39min; chronic exacerbation, 2 stable chronic or 1 acute illness add add modifier 95 for video, (do not use for phone, instead use 75063-81) [facility]18[place]20[place] Estab. patient 30-39min; chronic exacerbation, 2 stable chronic or 1 acute illness add add modifier 95 for video, (do not use for phone, instead use 82144-56) [facility] 10[place]18/20[place] Estab. patient 30-39min; chronic exacerbation, 2 stable chronic or 1 acute illness add add modifier 95 for video, (do not use for phone, instead use 66334-29) [facility], ([place]) 10[place]18/20[place] Estab. patient 30-39min; chronic exacerbation, 2 stable chronic or 1 acute illness add add modifier 95 for video, (do not use for phone, instead use 71889-71) [facility]18/20[place] Estab. patient 30-39min; chronic exacerbation, 2 stable chronic or 1 acute illness add add modifier 95 for video, (do not use for phone, instead use 53990-65) [facility] 10[place]18/20[place] Estab. patient 30-39min; chronic exacerbation, 2 stable chronic or 1 acute illness add add modifier 95 for video, (do not use for phone, instead use 46556-89) [facility] 10[place]18/2022 Estab. patient 30-39min; chronic exacerbation, 2 stable chronic or 1 acute illness add add modifier 95 for video, (do not use for phone, instead use 12718-21) [facility] 10[place]18/2022 Estab. patient 30-39min; chronic exacerbation, 2 stable chronic or 1 acute illness add add modifier 95 for video, (do not use for phone, instead use 15505-64) [facility] 10[place]18/2022 Unlisted special service; to be used for medical record reviews and reporting CPTII codes (1111F, etc) [facility] 11/25/2022 Other specified health statu s Unlisted special service; to be used for medical record reviews and reporting CPTII codes (1111F, etc) [facility]/25/2022 Unlisted special service; to be used for medical record reviews and reporting CPTII codes (1111F, etc) [facility] 11/25/2022 No Data Available [facility] 02/24/2023 Type 2 diabetes mellitus wit h other specified complicationEmphysema, unspecifiedEnlarged prostate without lower urinary tract symptomsType 2 diabetes mellitus with diabetic polyneuropathyEssential (primary) hypertensionHyperlipidemia, unspecifiedMajor depressive disorder, single episode, in full remissionLow back pain, unspecifiedAthscl heart disease of [place] coronary artery w/o ang pctrsMorbid (severe) obesity due to excess caloriesBody mass index (BMI) 40.0-44.9, adult No Data Available [facility] 02[place]24/2023 No Data Available [facility] 02/24/2023 No Data Available [facility] 02/24/2023 No Data Available [facility] No Data Available [facility] No Data Available [facility] 04/04/2023 Type 2 diabetes mellitus wit h [...] initial encounterAnxiety disorder, unspecified No Data Available [facility]20[place] No Data Available [facility]20[place] No Data Available [facility]20[place] No Data Available [facility]20[place] No Data Available [facility]20[place] No Data Available [facility]/04[place]20[place] No Data Available [facility]/04[place]20[place] No Data Available [facility] [place] 05[place]02/2023 Type 2 diabetes mellitus wit h other specified complicationEmphysema, unspecifiedEnlarged prostate without lower urinary tract symptomsType 2 diabetes mellitus with diabetic polyneuropathyEssential (primary) hypertensionHyperlipidemia, unspecifiedLow back pain, unspecifiedAthscl heart disease of [place] coronary artery w/o ang pctrsBody mass index (BMI) 40.0-44.9, adultMorbid (severe) obesity due to excess caloriesOther problems related to medical facilities and other health careUnspecified fall, initial encounterAnxiety disorder, unspecifiedMajor depressive disorder, recurrent, moderate No Data Available [facility] 05[place]02[place]20[place] No Data Available [facility]02[place]20[place] No Data Available [facility]20[place] No Data Available [facility]/02[place]20[place] No Data Available [facility]/02/2023 No Data Available [facility]/2023 Type 2 diabetes mellitus wit h diabetic polyneuropathyType 2 diabetes mellitus with other specified complicationHyperlipidemia, unspecifiedEmphysema, unspecifiedMorbid (severe) obesity due to excess caloriesBody mass index (BMI) 40.0-44.9, adultMajor depressive disorder, recurrent, moderateEnlarged prostate without lower urinary tract symptomsEssential (primary) hypertensionLow back pain, unspecifiedOther problems related to medical facilities and other health careAnxiety disorder, unspecifiedUnspecified fall, subsequent encounter No Data Available [facility]2023 No Data Available [facility] 05[place]/2023 No Data Available [facility] 05/20/2023 No Data Available [facility] 05/20/2023 No Data Available [facility] 05/20/2023 No Data Available [facility] 07/08/2023 Type 2 diabetes mellitus wit h other specified complicationHyperlipidemia, unspecifiedLong term (current) use of insulinLong-term (current) use of injectable non-insulin antidiabetic drugsOther problems related to medical facilities and other health care No Data Available [facility] 07/31/2023 Altered mental status, unspecified No Data Available [facility] 08/26/2023 Altered mental status, unspecifiedOther problems related to medical facilities and other health care No Data Available [facility] 10/02/2023 Type 2 diabetes mellitus wit h other specified complicationHyperlipidemia, unspecifiedOther problems related to medical facilities and other health careAltered mental status, unspecified Estab. patient 30-39min; chronic exacerbation, 2 stable chronic or 1 acute illness add add modifier 95 for video, (do not use for phone, instead use [id number]) [facility] 12/10/2023 Type 2 diabetes mellitus wit h [...] (do not use for phone, instead use 42373-31) [facility] 12[place]10/2023 Estab. patient 30-39min; chronic exacerbation, 2 stable chronic or 1 acute illness add add modifier 95 for video, (do not use for phone, instead use 94524-73) [facility] 12[place]10/2023 Estab. patient 30-39min; chronic exacerbation, 2 stable chronic or 1 acute illness add add modifier 95 for video, (do not use for phone, instead use 08897-05) [facility] 12[place]10/2023 Estab. patient 30-39min; chronic exacerbation, 2 stable chronic or 1 acute illness add add modifier 95 for video, (do not use for phone, instead use 24899-73) [facility] 12[place]10/2023 Estab. patient 30-39min; chronic exacerbation, 2 stable chronic or 1 acute illness add add modifier 95 for video, (do not use for phone, instead use 61282-84) [facility] 12[place]10/2023 Estab. patient 30-39min; chronic exacerbation, 2 stable chronic or 1 acute illness add add modifier 95 for video, (do not use for phone, instead use 47247-05) [facility] 12[place]10/2023 Estab. patient 30-39min; chronic exacerbation, 2 stable chronic or 1 acute illness add add modifier 95 for video, (do not use for phone, instead use 60419-63) [facility] 12/10/2023 Estab. patient 30-39min; chronic exacerbation, 2 stable chronic or 1 acute illness add add modifier 95 for video, (do not use for phone, instead use 10196-37) [facility] 12/10/2023 Estab. patient 30-39min; chronic exacerbation, 2 stable chronic or 1 acute illness add add modifier 95 for video, (do not use for phone, instead use 52833-49) [facility] [place]20[place] No Data Available [facility] [place]2023 Major depressive disorder, recurrent, moderateType 2 diabetes mellitus with other specified complicationHyperlipidemia, unspecifiedPolyosteoarthritis, unspecifiedUnsteadiness on feetAnxiety disorder, unspecifiedOther problems related to medical facilities and other health careLow back pain, unspecifiedUnspecified fall, initial encounter No Data Available [facility] [place]18[place]20[place] No Data Available [facility] [place] No Data Available [facility] [place]20[place] No Data Available [facility] [place] No Data Available [facility] [place] Essential (primary) hypertensionType 2 diabetes mellitus with other specified complicationNicotine dependence, unspecified, in remissionHyperlipidemia, unspecifiedOther problems related to medical facilities and other health care No Data Available [facility] [place]20[place] No Data Available [facility] [place]20[place] No Data Available [facility] [place] No Data Available [facility] [place] No Data Available [facility] [place] No Data Available [facility] [place]2024 Other malaiseRepeated fallsPersonal history of other medical treatment No Data Available [facility] [place]/27/20[place] No Data Available [facility] [place] 02/[place]/2024 No Data Available [facility] [place] 02/27/2024 No Data Available [facility] [place] 03[place]08/2024 Anxiety disorder, unspecifiedAcute upper respiratory infection, unspecifiedOther problems related to medical facilities and other health care No Data Available [facility] [place] No Data Available [facility] [place] Estab. patient 10-29min; 1 minor problem; add add modifier 95 for video, modifier 93 for phone [facility] [place] 03[place]12/2024 Acute upper respiratory infection, unspecifiedOther problems related to medical facilities and other health care Estab. patient 10-29min; 1 minor problem; add add modifier 95 for video, modifier 93 for phone [facility] [place] 03/12/20[place] Estab. patient 10-29min; 1 minor problem; add add modifier 95 for video, modifier 93 for [facility], ([place] 04[place]07/2024 Low back pain, unspecifiedOt her problems related to medical facilities and other health care RN, CN or CP time with patient by phone; use with 1111F, BP, A1c or other CPTII codes [facility] 06[place]/2024 Encounter for other specifie d aftercare RN, CN or CP time with patient by phone; use with 1111F, BP, A1c or other CPTII codes [facility] 06/01/20[place] Estab. patient 10-29min; 1 minor problem; add add modifier 95 for video, modifier 93 for phone [facility] [place]04/2024 Other problems related to medical facilities and other health careUnspecified abdominal pain Estab. patient 10-29min; 1 minor problem; add add modifier 95 for video, modifier 93 for phone [facility], ([place] 2024 Type 2 diabetes mellitus wit h other specified complicationHyperlipidemia, unspecifiedEmphysema, unspecifiedUnspecified urinary incontinenceUnspecified fall, subsequent encounterPersonal history of other medical treatment Estab. patient 10-29min; 1 minor problem; add add modifier 95 for video, modifier 93 for [facility] Estab. patient 10-29min; 1 minor problem; add add modifier 95 for video, modifier 93 for phone [facility] 20[facility] Estab. patient 10-29min; 1 minor problem; add add modifier 95 for video, modifier 93 for phone [facility] [place] 06/09/2024 Type 2 diabetes mellitus wit h other specified complicationOther problems related to medical facilities and other health care Estab. patient 10-29min; 1 minor problem; add add modifier 95 for video, modifier 93 for phone [facility] 06/09/2024 Acute upper respiratory infection, unspecifiedEssential (primary) hypertensionType 2 diabetes mellitus with diabetic polyneuropathy Vital Signs Date of Collection Vitals 2022-02-19 [...] 07:10:08 Pain Scale - 0.0 {sc ore} 2024-06-09 19:06:09 BP Diastolic - 92.0 mm[Hg]BP Systolic - 144.0 mm[Hg]Heart Rate - 77.0 /minBody Temperature - 37.61 CelO2 % BldC Oximetry - 91.0 % Social History Social History Social History Observation Description Effec tive Time Current Smoking Status Former smoker 4 Sex Male Gender identity Man History of Procedures Procedures Service Procedure code Service date Servicing provider Phone# New patient,40-59min; chronic exacerbation, 2 stable chronic or 1 acute illness add add modifier 95 for video (do not use for phone, instead use 04043-58) [id number] 2022-02-19 No Data Available No Data Availa [...] 1111F, BP, A1c or other CPTII codes [id number] 2022-10-14 No Data Available No Data Avai lable Medications prescribed in hospital were reviewed and reconciled against what they were taking prior to admission during today's visit. (1111F) 1111F 2022-10-14 No Data Available No Data Availa ble Estab. patient 30-39min; chronic exacerbation, 2 stable chronic or 1 acute illness add add modifier 95 for video, (do not use for phone, instead use 04510-14) [id number] 2022-10-18 No Data Available No Data Availa [...] reviews and reporting CPTII codes (1111F, etc) [id number] 2022-11-25 No Data Available No Data Availa ble DBP <80 (3078F) 3078F 2022-11-25 No Data Available No Data Available SBP < 130 (3074F) 3074F 2022-11-25 No Data Available No Data Available No Data Available [id number] 2023-02-24 No Data Available No Data Available [...] le No Data Available No Data Available [id number] 2023-04-04 No Data Available No Data Available [...] le No Data Available No Data Available [id number] 2023-05-02 No Data Available No Data Available [...] No Data Avail able No Data Available [id number] 2023-05-20 No Data Available No Data Available [...] le No Data Available No Data Available [id number] 2023-07-08 No Data Available No Data Available No Data Available [id number] 2023-07-31 No Data Available No Data Available No Data Available [id number] 2023-08-26 No Data Available No Data Available No Data Available [id number] 2023-10-02 No Data Available No Data Available Estab. patient 30-39min; chronic exacerbation, 2 stable chronic or 1 acute illness add add modifier 95 for video, (do not use for phone, instead use 03132-15) [id number] 2023-12-10 No Data Available No Data Availa [...] No Data Avail able No Data Available [id number] 2023-12-18 No Data Available No Data Available [...] Available No Data Available No Data Available [id number] 2024-01-14 No Data Available No Data Available [...] No Data Availa ble No Data Available [id number] 2024-02-27 No Data Available No Data Available [...] No Data A vailable No Data Available 2024-03-08 No Data Available No Data Available [...] 95 for video, modifier 93 for phone [id number] 2024-03-12 No Data Available No Data Availa ble Medication List Documented (1159F) [id number] 2024-03-12 No Data Available No Data Colette ilable Estab. patient 10-29min; 1 minor problem; add add modifier 95 for video, modifier 93 for phone [id number] 2024-04-07 No Data Available No Data Availa ble RN, CN or CP time with patient by phone; use with 1111F, BP, A1c or other CPTII codes [id number] 2024-06-01 No Data Available No Data Avai lable Medications prescribed in hospital were reviewed and reconciled against what they were taking prior to admission during today's visit. (1111F) 1111F 2024-06-01 No Data Available No Data Availa ble Estab. patient 10-29min; 1 minor problem; add add modifier 95 for video, modifier 93 for phone [id number] 2024-06-04 No Data Available No Data Availa ble Estab. patient 10-29min; 1 minor problem; add add modifier 95 for video, modifier 93 for phone [id number] 2024 No Data Available No Data Availa ble Medications prescribed in hospital were reviewed and reconciled against what they were taking prior to admission during today's visit. (1111F) 1111F 2024 No Data Available No Data Availa ble Medication List Documented (1159F) 1159F 2024 No Data Available No Data Colette ilable Estab. patient 10-29min; 1 minor problem; add add modifier 95 for video, modifier 93 for phone [id number] 2024-06-09 No Data Available No Data Availa ble Estab. patient 10-29min; 1 minor problem; add add modifier 95 for video, modifier 93 for phone [id number] 2024-06-10 No Data Available No Data Availa ble Functional Status Functional Category Effective Dates ADLsDressing - Needs assista nceBathing - Needs assistanceToileting - Needs assistanceTransfers - Needs assistanceEating - IndependentiADLsShopping - Needs assistanceMedications - IndependentHousekeeping - Needs assistanceCooking - Needs assistanceFalls in last 6 months - Yes 2022-10-18 [facility] coming in M-F only one h our per day (originally approved for 10 hours) 2023-04-04 uses cane and walker at home to ambulate 2023-12-18 [facility] is his niece. [place] 2023-12-18 has meals [...] episode, moderate 2023-07-08 11:58:49 Diabetes mellitus wi other complications/HLDOther problems related to medical facilities and other health care 2023-07-31 07:55:39 Altered mental state 2023-08-26 13:38:01 Altered mental state Other problems related to medical facilities and other health care 2023-10-02 12:45:19 Diabetes mellitus [facility] other complications/HLDOther problems related to medical facilities and other health careAltered mental state 2023-12-10 06:39:26 Diabetes mellitus ks th other complications/HLDChronic obstructive airway diseasePulmonary emphysema, [...] with other complicationsHLD 2024-01-14 12:22:45 Diabetes mellitus [facility] other complicationsHLDHypertensionOther problems related to medical facilities [...] to medical facilities and other health care 2024-06-04 09:01:08 Other problems relat ed to medical facilities and other health careAbdominal pain 2024 07:07:28 Diabetes mellitus wi th other complicationsHLDFall, initial encounterPatient Education to avoid future hospitalization: Call Don if symptoms of illness develop.Other problems related to medical facilities and other health careIncontinenceHistory of recent hospitalizationChronic obstructive airway diseasePulmonary emphysema, unspecified emphysema type 2024-06-09 07:50:22 Follow up plan for a cute symptoms:Diabetes mellitus with other complicationsHLDOther problems related to medical facilities and other health care 2024-06-09 19:06:09 Follow up plan for a cute symptoms: 06/11/24 with APPURI (upper respiratory infection)HypertensionDiabetic peripheral neuropathy associated with type 2 diabetes mellitus Plan of Care Date of Service Plans 2022-02-19 11:14:30 Medication Review by prescribing provider or pharmacist documented (1160F)Medication List Documented (1159F)Functional Status Assessed (1170F)Advance Care Directive Advance care planning discussion documented in the medical record (1158F)BMI obtained (3008F)Televideo new patient,40-59min; chronic exacerbation, 2 stable chronic or 1 acute illness add modifier 95Pain Assessment - Pain Documented (1125F)Continue to see PCP. Follow-up with Don as needed for any acute or disease education needs that may arise.StableNo A1c on EMR, Pt denies monitoring BGLantus, TrulicityContinue to f/u w/ electronic controls repairer supervisor q3-6 months, monitor BG levels, discussed dietary and exercise interventions, contact us if develop hyperglycemia s/sxStableAlbuterol, FloventMonitor O2, take medications as Rx, continue f/u care w/ PCP [id number], contact us if you develop respiratory distressStableTamsulosinMonitor urine output, continue taking medication as prescribed, f/u PCP [id number], contact us if develop acute decrease in [...] denies monitoring BGLantus, TrulicityContinue to f/u w/ electronic controls repairer supervisor q3-6 months, monitor BG levels, discussed dietary and exercise interventions, contact us if develop hyperglycemia s/sxStableAlbuterol, FloventMonitor O2, take medications as Rx, continue f/u care w/ PCP [id number], contact us if you develop respiratory distressStableTamsulosinMonitor urine output, continue taking medication as prescribed, f/u PCP [id number], contact us if develop acute decrease in [...] denies monitoring BGLantus, TrulicityContinue to f/u w/ electronic controls repairer supervisor q3-6 months, monitor BG levels, discussed dietary and exercise interventions, contact us if develop hyperglycemia s/sxStableAlbuterol, FloventMonitor O2, take medications as Rx, continue f/u care w/ PCP [id number], contact us if you develop respiratory distressStableTamsulosinMonitor urine output, continue taking medication as prescribed, f/u PCP [id number], contact us if develop acute decrease in [...] coping mechanisms and benefits of potential verbal [id number]/18/23: feels more calm now that he's home; [...] denies monitoring BGLantus, TrulicityContinue to f/u w/ electronic controls repairer supervisor q3-6 months, monitor BG levels, discussed dietary and exercise interventions, contact us if develop hyperglycemia s/sxCONTINGENCY PLANMember to call for the following symptoms: Blood sugar <70/ Blood sugar >300/ More thirsty than usual/ Urinating more than usualPlanned intervention:StableAlbuterol, FloventMonitor O2, take medications as Rx, continue f/u care w/ PCP [id number], contact us if you develop respiratory distressStableTamsulosinMonitor urine output, continue taking medication as prescribed, f/u PCP [id number], contact us if develop acute decrease in [...] joint pain increased [facility]. [facility] with [facility] as [...] modifier 95)Continue to see PCP. [facility] or disease education needs that may arise 30/09.Type 2 diabetes mellitus with HLDNo A1c on EMR, Pt denies monitoring BGLantus, TrulicityContinue to f/u w/ electronic controls repairer supervisor q3-6 months, monitor BG levels, discussed dietary and exercise interventions, contact us if develop hyperglycemia s/sxCONTINGENCY PLANMember to call for the following symptoms: Blood sugar <70/ Blood sugar >300/ More thirsty than usual/ Urinating more than usualPlanned intervention:StableAlbuterol, FloventMonitor O2, take medications as Rx, continue f/u care w/ PCP [id number], contact us if you develop respiratory distressStableTamsulosinMonitor urine output, continue taking medication as prescribed, f/u PCP [id number], contact us if develop acute decrease in [...] denies monitoring BGLantus, TrulicityContinue to f/u w/ electronic controls repairer supervisor q3-6 months, monitor BG levels, discussed dietary and exercise interventions, contact us if develop hyperglycemia s/sxCONTINGENCY PLANMember to call for the following symptoms: Blood sugar <70/ Blood sugar >300/ More thirsty than usual/ Urinating more than usualPlanned intervention: 05/20/23: had episodes of hypoglycemia in STR; have decreased lantus to 60Units per nightStableAlbuterol, FloventMonitor O2, take medications as Rx, continue f/u care w/ PCP [id number], contact us if you develop respiratory distressStableTamsulosinMonitor urine output, continue taking medication as prescribed, f/u PCP [id number], contact us if develop acute decrease in [...] call CBContinue to see PCP. [facility] for [facility] [...] denies monitoring BGLantus, TrulicityContinue to f/u w/ electronic controls repairer supervisor q3-6 months, monitor BG levels, discussed dietary [...] joint pain increased [facility]. [facility] with [facility] as [...] date) tx [facility] the hospital to a [facility] for advanced [facility] per cg. I left [...] date) tx from the hospital to a fci for advanced dementia per cg. I left a message to the patient's son Manuel for add. information. Placed member on hold due to placement.08/26/23: Son reports that the patient returned home 2 weeks ago from SNF. The family has been providing 30/09 support but he reports that the patient needs more [facility] hours to continue to providing adequate care. I provided [facility] CC number for follow up. Denies [...] joint pain increased [facility] with [facility] as needed for any acute or disease education needs that may arise 30/09.what should be done when the member calls: see each individual diagnosis for contingency plan 2023-10-02 12:45:19 Phone (patient, pare nt, or guardian); 5-10 minutes of medical discussion (no modifier 95)Continue to see PCP. [facility] or disease education needs that may arise 30/09.Type 2 diabetes mellitus with HLDNo A1c on EMR, Pt denies monitoring BGLantus, TrulicityContinue to f/u w/ electronic controls repairer supervisor q3-6 months, monitor BG levels, discussed dietary [...] reports that the patient recently started with [facility] (niece) to help with his care. He was previously non-compliant with his medications and insulin; [facility] Crystal is helping with his medication management [...] date) tx from the hospital to a fci for advanced dementia per cg. I left a message to the patient's son Manuel for add. information. Placed member on hold due to placement.08/26/23: Son reports that the patient returned home 2 weeks ago from SNF. The family has been providing 30/09 support but he reports that the patient needs more [facility] [employer] hours to continue to providing adequate care. I provided [facility] CC number for follow up. Denies [...] denies monitoring BGLantus, TrulicityContinue to f/u w/ electronic controls repairer supervisor q3-6 months, monitor BG levels, discussed dietary [...] reports that the patient recently started with [facility] [employer] (niece) to help with his care. He was previously non-compliant with his medications and insulin; [facility] [employer] Crystal is helping with his medication management due to BS in 300's avg.StableAlbuterol, FloventMonitor O2, take medications as Rx, continue f/u care w/ PCP [id number], contact us if you develop respiratory distressStableTamsulosinMonitor urine output, continue taking medication as prescribed, f/u PCP [id number], contact us if develop acute decrease in urine outputStableGabapentin, Lantus, TrulicityMonitor sensation of BLE, continue taking medications as Rx, monitor BG levels, discussed diabetic dietary and exercise interventions, contact us if neuropathy worsen05/02/23: Worse symptom out of all chronic issues is neuropathyStablePt denies monitoring BPLisinopril, MetoprololDiscussed dietary and exercise interventions, f/u w/ PCP q6-12 months, contact us develop emergent HTN s/sx10/05/03BP 150/76 today but in pain and frustrated about reduced [facility] [employer] hours. Please keep a log and we [...] joint pain increased [facility]. [facility] as needed for any acute or [...] PT - asking PCP.Due to not enough [facility] [employer] presence, has fallen a number of times recently, and hurt his ribs badly.Also needs medication reminders. Reduced [facility] [employer] hours because they were sending meals on wheels. [facility] [employer] has been with him since August and [...] (with food)Patient verbalized understanding. Caregiver verbalized understanding.Reduced [facility] [employer] hours because they were sending meals on wheels but has not received the meals yet.Also needs medication reminders now that his C[facility] [employer] is not there as much - at risk for noncompliance.Reduced [facility] [employer] hours because they were sending meals on wheels. [facility] [employer] has been with him since August and [...] 05/02/23: hydroxyzine is helping with panic attacks PRN10.10: continues to see psychiatrist. Anxiety controlled with medications.fall 04/03/23: from chair neck pain today 06/17did [...] oxybutynin. Will send via sms to his [facility] member to call: If he falls or feels dizzy and is at danger of fallingIf bp is elevated sbp>150; dbp>90 or symptomatic-h/a, dizziness, cp, sob. if BS >300 or BS<90 or symptomatic; i.e., dizzy, off balance , shaky, general weakness. if UTI symptoms arise-urinary frequency, dysuria, low abd pain. if pain in knees increases/ or joint pain increased Please [facility]. Follow-up with Don as [...] denies monitoring BGLantus, TrulicityContinue to f/u w/ electronic controls repairer supervisor q3-6 months, monitor BG levels, discussed dietary [...] reports that the patient recently started with [facility] [employer] (niece) to help with his care. He was previously non-compliant with his medications and insulin; [facility] [employer] Crystal is helping with his medication management [...] denies monitoring BGLantus, TrulicityContinue to f/u w/ electronic controls repairer supervisor q3-6 months, monitor BG levels, discussed dietary [...] reports that the patient recently started with [facility] [employer] (niece) to help with his care. He was previously non-compliant with his medications and insulin; [facility] [employer] Crystal is helping with his medication management due to BS in 300's avg.10.24: reports his BS have decreased. Now <200 average. Is f/u wit pcp and reports good bs and good BP during visit no records available to review today01/14/2024 patient visited electronic controls repairer supervisor this week . patient states that his BG is controlled for the most part.StablePt denies monitoring BPLisinopril, MetoprololDiscussed dietary and exercise interventions, f/u w/ PCP q6-12 months, contact us develop emergent HTN s/sx1BP 150/76 today but in pain and frustrated about reduced [facility] [employer] hours. Please keep a log and we [...] joint pain increased [facility]. [facility] [...] at home and decided to get looked at.[facility] [employer] hours were reduced just as he is getting weaker and his walking is unsafe.Needs PT - asking PCP.Due to not enough [facility] [employer] presence, has fallen a number of times recently, and hurt his ribs badly.Also needs medication reminders. Reduced [facility] [employer] hours because they were sending meals on wheels. [facility] has been with him since August and [...] to seek medical assistance or [facility]03[facility]08[facility]24 Patient reports fever, chills and congestion with [...] for phoneContinue to see PCP. Follow-up with [facility] as needed for any acute or disease education needs that may arise 30/09.Add Contingency PlanStableCymbaltaContinue taking medications, practice core ROM exercises as tolerable, contact us if develop increase in low back pain without reliefER visit on 03/19/24 at [facility]. He reports feeling better, [...] remember to call CBPSYCH CONTINGENCY PLANLast updated: 03/08/2024[facility] to call for the following symptoms: Agitation/ Anxiety/ Insomnia/ Panic attacksPlanned intervention: Hydroxyzine (Vistaril) 25mg PO q6h PRN anxiety/ Encourage member to journal feelings/ Remind member of personal goal:/ Encourage use of home medication:/ Increase dose of current medication:/ Limit extra stimulation 2024-06-04 09:01:08 Estab. patient 10-29 min; 1 minor problem; add add modifier 95 for video, modifier 93 for phoneContinue to see PCP. Follow-up with [facility] as needed for any acute or disease education needs that may arise 30/09.When member to call: 1. If bp is elevated sbp>150; dbp>90 or symptomatic-h/a, dizziness, cp, sob. 2. if there is a fall 3. if BS >300 or BS<90 or symptomatic; i.e., dizzy, off balance , shaky, general weakness. 4. if UTI symptoms arise-urinary frequency, dysuria, low abd pain.5. Generalized body pain/aches.Please remember to call CBPlease call if you experience abdominal pain, swelling, constipation, diarrhea, nausea or vomitingPlanned intervention: Prescribe medication as appropriatePSYCH CONTINGENCY PLANLast updated: 03/08/2024[facility] to call for the following symptoms: Agitation/ Anxiety/ Insomnia/ Panic attacksPlanned intervention: Hydroxyzine (Vistaril) 25mg PO q6h PRN anxiety/ Encourage member to journal feelings/ Remind member of personal goal:/ Encourage use of home medication:/ Increase dose of current medication:/ Limit extra stimulation06/04/24: ER visit on 06/03/24 for severe abdominal pain. Niece reports the patient's symptom started in the evening, denies other symptoms. She suggested calling CB, but the patient insisted in going to the ER. She reports that the patient was diagnoses with a possible virus, prescribed a medication (unable to recall, MR requested). Reports that the patient is feeling better, denies any current concerns. 2024 07:07:28 Estab. patient 10-29 min; 1 minor problem; add add modifier 95 for video, modifier 93 for phoneDischarge medications reconciled with current medication listContinue to see PCP. Follow-up with [facility] as needed for any acute or disease education needs that may arise 30/09. PCP visit is planned for:Type 2 diabetes mellitus with HLDA1C 11/7% 5Continue to f/u w/ electronic controls repairer supervisor q3-6 months, monitor BG levels, discussed dietary and exercise interventions, contact us if develop hyperglycemia s/s06/03/24: [facility] [employer]/Ninoska Crystal reports that she recently restarted care with the patient. She reports his blood sugar were better controlled months ago under her care and she will monitor patient blood sugar and diet.fall 04/03/23: from chair neck pain today 06/17did not hit his head taking tylenol arthritis BS: 99, 120's Is no longer using trulicity (d/t N/V) DME ordered in ER-shower chair and walker ANXIETY: taking gabapentin (for RLS) 06/03/24: Patient was hospitalized on 05/21-05/24 post falls. Cg reports the patient had a fall and hit head on a bureau. The patient is currently walking with a walker, denies any current concernsFALL CONTINGENCY PLANMember to call for the following symptoms: Fall??/ Refusing to use walker??/ Vertigo/ WeaknessPlanned intervention: Encourage extra fluid intake / Assess for change in mental status and provide reassurance if none (patient's Baseline is _) / Review importance of sitting for two to three minutes prior to standing after laying downPlease call if you experience ANDOMINAL PAIN, swelling, constipation, diarrhea, nausea or vomitingPlanned intervention: Prescribe medication as appropriatePSYCH CONTINGENCY PLANLast updated: 03/08/2024Member to call for the following symptoms: Agitation/ Anxiety/ Insomnia/ Panic attacksPlanned intervention: Hydroxyzine (Vistaril) 25mg PO q6h PRN anxiety/ Encourage member to journal feelings/ Remind member of personal goal:/ Encourage use of home medication:/ Increase dose of current medication:/ Limit extra stimulation06/03/24: Cg requesting incontinence supplies, order placed on 06/08/24.Patient reports that on 02/12/2024 and was discharged the same date.- not admittedPatient reports that he was in the hospital due to having respiratoy infection- thought he had COVID-19, he fell at home and decided to get looked at. Patient was hospitalized on 05/21-05/24 post fall at [facility].StableAlbuterol, FloventMonitor O2, take medications as Rx, continue f/u care w/ PCP [id number], contact us if you develop respiratory [id number]/16/2024 patient states he feels well at the moment. 06/03/24: Denies dyspnea 2024-06-09 07:50:22 Televideo 10-29min; 1 minor problem; add add modifier 95 for video, modifier 93 for phoneContinue to see PCP. Follow-up with Don as needed for any acute or disease education needs that may arise 30/09.Type 2 diabetes mellitus with HLDA1C 11/% 5Continue to f/u w/ electronic controls repairer supervisor q3-6 months, monitor BG levels, discussed dietary and exercise interventions, contact us if develop hyperglycemia s/s06/03/24: [facility] [employer]OR/Ninoska Rojas reports that she recently restarted care with the patient. She reports his blood sugar were better controlled months ago under her care and she will monitor patient blood sugar and diet.06/09/24:Cg reports BS this am 308, after receiving sliding scale lispro (12 units), rechecked 2 hours later, BS 317. Instructed cg to administer 2 more units of lispro, encouraged water intake and walk as tolerated and recheck 30-60 min. She reports hx of sudden hypoglycemis, thus, only 2 units recommended at this time. Patient denies any sx of distress, they will callback with continued hyperglycemia.DIABETES CONTINGENCY PLANLast updated: 06/09/2024Member to call for the following symptoms: Blood sugar <70??/ Blood sugar >300??/ DeliriumPlanned intervention: Increase short-acting insulin to lispro 2 units/ Encourage adequate water intake/ Limit high-sugar and high-carbohydrate foods/ Go for a walkPlease call if you experience ANDOMINAL PAIN, swelling, constipation, diarrhea, nausea or vomitingPlanned intervention: Prescribe medication as appropriatePSYCH CONTINGENCY PLANLast updated: 03/08/2024Member to call for the following symptoms: Agitation/ Anxiety/ Insomnia/ Panic attacksPlanned intervention: Hydroxyzine (Vistaril) 25mg PO q6h PRN anxiety/ Encourage member to journal feelings/ Remind member of personal goal:/ Encourage use of home medication:/ Increase dose of current medication:/ Limit extra stimulation 2024-06-09 19:06:09 Televideo 10-29min; 1 minor problem; add add modifier 95 for video, modifier 93 for phoneContinue to see PCP. Follow-up with [facility] as needed for any acute or disease education needs that may arise 30/09.06/09/24: Continue albuterol inhaler as directed.May give OTC cough/cold meds Tylenol every 6 hours as neededMay use cool mist vaporizer/humidifier next to bed. Elevate HOB when lying down. Increase water intake, warm tea with honey, salt water gargles.Contact CB with increase, new or worsening symptomsF/U with JILLIAN 06/11/24StablePt denies monitoring BPLisinopril, MetoprololDiscussed dietary and exercise interventions, f/u w/ PCP q6-12 months, contact us develop emergent HTN s/sx10/2/24BP 150/76 today but in pain and frustrated about reduced [facility] [employer] hours. Please keep a log and we will FU.01/14/2024 patient states that his BP is controlled and take his medication 06/09/24: BP elevated 167/90 and 144/92. Taking furosemide, metoprolol and hydralazine (changed from lisinopril) 05/24/24. Has appt with PCP on 08/05/24 to discuss changes.Monitor sodium and water intake.Regular exercise, continue meds as directed.Contact CB with new, continued or worsening symptoms.F/U with JILLIAN 06/11/24StableGabapentin, Lantus, TrulicityMonitor sensation of BLE, continue taking medications as Rx, monitor BG levels, discussed diabetic dietary and exercise interventions, contact us if neuropathy worsen05/02/23: Worse symptom out of all chronic issues is neuropathy 06/09/24: Continue 35 Units of lantus every evening and Lispro 2-8 Units BID PRN.Increase water and activity.Limit high sugar foods. BGL may be elevated d/t current illness.Contact CB with new, continued or worsening symptoms.F/U with JILLIAN 06/11/24 Goals Date Goal 2022-02-19 Remember to monitor [...] PCP and Specialist. Health Concerns Date Concern 2024-06-10 Visit completed via audio by telephone. Patient/Guardian agreed to visit via telehealth.Time spent in visit: 25:36 minutes 2024-06-10 Today, patient has c hief complaint of: BP and BGL concernsSummary of acute complaint: members BP has been a bit high today, she spoke to Tammy earlier today. member has been eating soup and yucca. member has been drinking a lot. a couple days ago he had swollen feet, but today he woke up with no swelling. denies CP but has headaches and SOB. member was negative for covid. CG states member is lethargic and his body feels warm but is alert, not confused. no cough. no vision changes with headache. his hands are shaking. Member and CG in car while talking to JILLIAN. Has appt 08/05/24 with PCP to discuss BP med changes - stopped lisinopril and started hydralazine, continues with metoprolol.Applicable vital signs: BP 167/90 144/92 HR 77O2 91% low. BG 346 342 Temp 99.7# hours/days of symptoms: todayMedications/interventions member has tried for symptoms / result of interventions: Furosemide. lispro and lantus RN interventions/care plan: eat low carb foods and low salt diet. cassava/yucca is high in carbs and will raise BG. the soup if salty it will make him retain water and increase BP. cool cloth on head for headache. give tylenol now. Was this the second consecutive acute visit (yes/no), if yes was a [employer] JILLIAN f/u visit scheduled?
--- OUTSIDE RECORDS SUMMARY | 2024-06-11 11:19 | XMS_ITS | Clinical Summary ---
[facility] Address [address] [place] [address] Care Team Providers Care Overhead Garage Door Hanger Name Role Phone Unavailable Primary Care Provider [...] 2023 Influenza Vaccine (#1) 2023 RSV Immunization Adult Patie nts (1 - 1-dose 75+ series) 2028 HIB [...]
--- OUTSIDE RECORDS SUMMARY | 2024-06-11 11:19 | XMS_ITS | Clinical Summary ---
Author Organization [employer] Address [address] [facility] [address] [place] [address] Care Team Providers Care Head Grinder Name Role Phone Unavailable Primary Care Provider [...] Most Recently Relevant to Health Maintenance [place] [phone] DENTAL - [facility]
== END 2024-06-11 11:02 | disposition home or self-care (01) ==
LOC: HO.ENCR 10:00
PROVIDERS: PCP Internal Medicine; Visit Provider Physician Assistant Medical
DX: E11.42 Type 2 diabetes mellitus with diabetic polyneuropathy (principal); Z79.4 Long term (current) use of insulin; R53.1 Weakness; J02.9 Acute pharyngitis, unspecified; R63.8 Other symptoms and signs concerning food and fluid intake

== ENCOUNTER 2024-06-11 11:33 | Emergency (ER) | payer OTHER, SELFPAY ==
--- NOTE | ~2024-06-11 | XR_ITS ---
EXAMINATION: XR CHEST CLINICAL INFORMATION: cp COMPARISON: 03/01/2024. TECHNIQUE: Frontal view of the chest was obtained. FINDINGS: There has been a prior median sternotomy. The cardiac, hilar, and mediastinal contours are normal. There are low lung volumes. Lungs are otherwise clear. No pneumothorax or effusion. No focal osseous or soft tissue abnormality. There are mild degenerative changes of the shoulder joints and spine. XR/XR chest 1V IMPRESSION: 1. Low lung volumes with no active pulmonary disease. 2. Prior sternotomy. Electronically signed by: Gabriele Savage MD 06/11/2024 12:20 PM EDT
[2024-06-11 11:46] VITALS: BP 121/56; BP 128/66; PULSE 67; PULSE 72; RESP 16; TEMP 36.6; O2SAT 95; O2SAT 96; BMI 37.9
--- NOTE | 2024-06-11 12:01 | ECG_ITS ---
Test Reason : cp Blood Pressure : */* mmHG Vent. Rate : 66 BPM Atrial Rate : 66 BPM P-R Int : 216 ms QRS Dur : 94 ms QT Int : 370 ms P-R-T Axes : 65 -29 -2 degrees QTcB Int : 387 ms Sinus rhythm with 1st degree A-V block with Premature supraventricular complexes Moderate voltage criteria for LVH, may be normal variant ( R in aVL , Earlimart product ) Septal infarct (cited on or before 01-Mar-2024) ST & T wave abnormality, consider inferior ischemia Abnormal ECG When compared with ECG of 01-Mar-2024 19:42, Premature supraventricular complexes are now Present T wave inversion now evident in Inferior leads Referred By: Sada Rodriguez Electronically Signed By: JAIME CASTRO
--- NOTE | 2024-06-11 12:03 | PC.NURSE ---
pt comes to ED from PCP appointment were he reports weakness and poor PO intake for 2-3 days. he denies pain. VSS stable
--- NOTE | 2024-06-11 12:04 | ED_ITS ---
HPI - Weakness General Chief complaint: Weakness Stated complaint: INC WEAKNESS/DIZZINESS Time Seen by Provider: 06/11/24 11:51 History of Present Illness HPI Narrative: Patient is a 69-year-old male with a history of diabetes. Was sent from the clinic for having decreased p.o. intake generalized malaise. Patient has no specific pain. Denies any coughing congestion upper respiratory symptoms denies any chest pain. Denies any abdominal pain. Denies any nausea vomiting diarrhea. Was noted to have a sugar in the 300 range and a blood pressure of 90s over 40s. Patient denies any diaphoresis denies any palpitation. There has been no changes in medication. Related Data Home Medications ?Medication ?Instructions ?Recorded ?Confirmed polyethylene glycol 3350 17 17 g PO DAILY PRN Constipation 10/09/22 06/11/24 gram/dose oral powder (Miralax) blood-glucose meter (OneTouch #1 ea 11/27/22 06/11/24 Ultra2 Meter) Monthly Medication Organizer 10/03/23 06/11/24 (Med-Box) insulin lispro 100 unit/mL 2 - 12 unit subcut .TIDAC 06/11/24 06/11/24 subcutaneous pen (Humalog KwikPen (U-100) Insulin) Previous Rx's ?Medication ?Instructions ?Recorded SHOWER CHAIR #1 ea 10/05/20 SHOWER CHAIR #1 ea 01/10/21 fluticasone propionate 50 1 spray intranasal DAILY #16 grams 03/16/21 mcg/actuation nasal spray,suspension insulin syr/ndl U100 half gareth 0.5 #100 ea 05/14/21 mL 30 gauge x 5/16 pen needle, diabetic 31 gauge x #100 ea 03/12/22 5/16 (Lite Touch Insulin Pen [place]) lancets 33 gauge (OneTouch Delica #100 ea 03/13/22 Lancets) dicyclomine 20 mg tablet 20 mg PO QID PRN abdominal pain 07/05/22 #20 tabs ondansetron HCl 4 mg tablet 4 mg PO Q6H PRN nausea and 07/06/22 vomiting #14 tabs metoclopramide HCl 10 mg tablet 10 mg PO AC PRN nausea and 11/12/22 (Reglan) vomiting #20 tabs blood sugar diagnostic 1 strip miscellaneous TID #100 11/27/22 strips blood sugar diagnostic (OneTouch #100 ea 01/13/23 Ultra Test strips) pen needle, diabetic 29 gauge x #100 ea 04/02/23/ (BD Ultra-Fine Original Pen Needle) WALKER #1 ea 04/09/23 gabapentin 400 mg capsule 400 mg PO TID #270 caps 06/11/23 walker #1 ea 06/15/23 cyanocobalamin (vitamin B-12) 1,000 mcg PO DAILY 90 days #90 tabs 10/03/23 1,000 mcg tablet monthly medication organizer (med #1 ea 10/06/23 box) [facility] Bed #1 ea 10/07/23 blood-glucose sensor (FreeStyle #2 ea 10/21/23 Iwona 3 Sensor device) 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-glucose,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,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 #1 ea 10/21/23 (FreeStyle Iwona 3 Harwood) phenazopyridine 200 mg tablet 200 mg PO TID 2 days #6 tabs 11/04/23 (Pyridium) cholecalciferol (vitamin D3) 50 50 mcg PO DAILY #90 caps 11/19/23 mcg (2,000 unit) capsule (Vitamin D3) Active Mal guard pads 6 x 11 #208 ea 11/21/23 Cleansing wipes #100 ea 11/21/23 Disposable 30x30 polymer pads #90 ea 11/21/23 heavy floweds Powder free synthetic exam gloves #100 ea 11/21/23 ondansetron 4 mg disintegrating 4 mg PO Q8H PRN nausea and 11/21/23 tablet vomiting #20 tabs metaxalone 800 mg tablet 800 mg PO BEDTIME #10 tabs 12/25/23 glucose 4 gram chewable tablet 16 g (4 x 4 gram) PO Q15M #10 tabs 01/22/24 docusate sodium 100 mg capsule 100 mg PO BID PRN constipation 30 01/28/24 days #60 caps hydroxyzine HCl 25 mg tablet 25 mg PO Q6H PRN anxiety 30 days 02/27/24 #120 tabs lorazepam 1 mg tablet (Ativan) 1 mg PO BEDTIME PRN anxiety/sleep 03/03/24 #10 tabs omeprazole 40 mg capsule,delayed 40 mg PO DAILY #30 caps 04/01/24 release pen needle, diabetic 32 gauge x #1,200 ea 04/08/24 (BD Ultra-Fine Brittany Pen Needle) aspirin 81 mg tablet,delayed 81 mg PO DAILY #90 tabs 04/23/24 release atorvastatin 80 mg tablet 80 mg PO DAILY 90 days #90 tabs 04/23/24 lisinopril 10 mg tablet 10 mg PO DAILY 90 days #90 tabs 04/23/24 metoprolol tartrate 50 mg tablet 50 mg PO BID #180 tabs 04/23/24 naproxen 500 mg tablet 500 mg PO BID PRN pain #60 tabs 04/23/24 oxybutynin chloride 10 mg 10 mg PO DAILY #90 tabs 04/23/24 tablet,extended release 24 hr paroxetine HCl 40 mg tablet 40 mg PO DAILY #90 tabs 04/23/24 tamsulosin 0.4 mg capsule (Flomax) 0.4 mg PO BEDTIME #90 caps 04/23/24 metformin 500 mg tablet,extended 1,500 mg (3 x 500 mg) PO DAILY 90 04/29/24 release 24 hr days #270 tabs lidocaine 5 % topical patch 1 patch topical DAILY #30 ea 05/20/24 albuterol sulfate 90 mcg/actuation 2 puff PO Q4-6H PRN for wheezing 05/24/24 aerosol inhaler #8.5 grams dicyclomine 20 mg tablet 20 mg PO TID PRN Abdominal 06/04/24 Discomfort #20 tabs ondansetron 4 mg disintegrating 4 mg PO Q6-8H PRN nausea and 06/04/24 tablet vomiting #7 tabs insulin glargine U-300 conc 300 120 unit (0.4 mL) subcut BEDTIME 06/11/24 unit/mL (3 mL) subcutaneous pen #18 mL (Toujeo Max U-300 SoloStar) penicillin V potassium 500 mg 500 mg PO TID #30 tabs 06/11/24 tablet Allergies Allergy/AdvReac Type Severity Reaction Status Date / Time hydromorphone [Dilaudid] AdvReac Unknown confusion Verified 06/11/24 11:48 From DILAUDID AdvReac Severe CONFUSION/H Uncoded 06/11/24 11:48 ALLUCIATION S From PERCOCET AdvReac Intermediate AGITATION Uncoded 06/11/24 11:48 Review of Systems 2 Review of Systems: No fever no chills no chest pain or shortness breath no diaphoresis Yes all other systems are reviewed and are negative [facility] Past Medical History Attestation statement: The following information was validated with the patient. Medical History Decreased oral intake Sore throat Weakness At risk for elder neglect Anxiety Type 2 diabetes mellitus with neurologic complication Gastritis and duodenitis Vitamin B12 deficiency Hyperkalemia Intertrigo Major depressive disorder, recurrent Benign prostatic hyperplasia with urinary frequency Constipation Obstructive sleep apnea Vitamin D deficiency Diabetic polyneuropathy Diabetes mellitus Obesity (BMI 30-39.9) Benign essential hypertension Pure hypercholesterolemia Coronary artery disease Surgical History Hx of cataract extraction (~2011) History of quadruple bypass (~2005) Hx of cystoscopy History of prostate surgery (~12/04/10) Hx of cholecystectomy (~2007) Family History Family History Father Lung cancer Mother Diabetes Hypertension Stomach cancer Social History Social History Household Members: None Housing: Apartment Do you presently have visiting nurse or other home services: No Alcohol intake: never Patient Tobacco Use Status: Former Tobacco user Smoked in Last 30 Days: No e-Cigarette/Vaping Use: Never Used Second Hand Smoke Exposure: No Use of substances other than those prescribed or required for medical reasons: No Advance Directives: Yes Advance Directives on File: Yes Advance Directives Date on File: 07/24/23 Do you have a plan to hurt others: No Plan service: No Current occupational status: disabled Cognitive needs: Yes (cane) Hearing needs: No Vision needs: Yes Physical Exam 2 Vital Signs: Vital Signs: Last Vital Signs Temp 98 F 06/11/24 11:46 Pulse 67 06/11/24 16:24 Resp 18 06/11/24 16:24 BP 146/50 H 06/11/24 16:24 Pulse Ox 98 06/11/24 16:24 O2 Del Method Room Air 06/11/24 16:24 BMI result Body Mass Index 37.9 Appearance: Alert. Oriented X3. No acute distress. Eyes: Pupils equal, round and reactive to light. ENT: Pharynx normal. Neck: Normal inspection. Neck supple. No lymph nodes noted. No crepitus CVS: Normal heart rate and rhythm. Pulses normal. Normal S1 and S2 Respiratory: No respiratory distress. Breath sounds normal. No Wheezing. No rales Abdomen: Soft and nontender. No rigidity. No distention. good BS x4 Skin: Skin warm and dry. Normal skin color. Normal skin turgor. Extremities: No lower extremity edema. Neurovascular intact to all extremities. No Lacerations. No Rash Neuro: Oriented X 3. No motor deficit. No sensory deficit. Moving all extermities. No slurred speech Medications Administered Discontinued Medications Generic Name Dose Route Start Last Admin Trade Name Freq PRN Reason Stop Dose Admin Sodium Chloride 1,000 mls @ 999 mls/hr 06/11/24 12:00 06/11/24 13:30 Ns IV 06/11/24 13:00 Infused .Q1H1M ABELARDO Infusion Medical Decision Making Medical Decision Making [facility] Narrative: patient is 69 years old presents today with having decreased p.o. intake weakness. 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 We did a rapid strep on patient which came back positive. We did electrolytes on patient which was normal. White count slightly elevated at 13. Patient's BUN and creatinine was normal. Glucose was 216 troponin mildly elevated at 31 this is about the same as the initial 136. Patient is lipase is normal no evidence for pancreatitis. Urine showed no gross signs of infection. Flu COVID RSV were all negative. My interpretation patient's chest x-ray is grossly negative for Pneumothorax for pneumonia. Patient well-appearing wants to go home blood pressure has remained well during the entire stay in the ED. will give patient antibiotics for strep. Close follow-up on an outpatient basis. my interpretation of patient's EKG showed a sinus rhythm heart rate is 80 SC QRS QTC normal no acute ST segment elevation. Unchanged from previous EKG. Differential Diagnosis Differential Diagnoses: The differential diagnosis associated with the presentation includes Strep pharyngitis, flu, RSV, electrolyte disturbance Admission/Observation Consideration of admission/observation: Escalation of care including admission/observation considered Considered admission but given overall well Lab Data [facility] Lab Attestation statement: I reviewed the patient's lab results. 06/11/24 12:13 06/11/24 12:13 Labs: Lab Results 06/11/24 06/11/24 06/11/24 Range/Units 12:13 12:14 15:12 WBC 13.1 H (4.8-10.8) X10*3/uL RBC 3.83 L (4.60-5.80) X10*6/uL Hgb 11.3 L (14.0-18.0) g/dl Hct 34.0 L (42.0-52.0) % MCV 88.8 (80.0-98.0) fL MCH 29.5 (27.0-33.0) pg MCHC 33.2 (31.0-36.0) g/dl RDW 12.6 (11.0-16.0) % Plt Count 208 (160-400) X10*3/uL MPV 12.0 (9.4-12.4) fL Immature Gran % (Auto) 0.4 (0.0-0.4) % Neut % (Auto) 71.2 (45-73) % Lymph % (Auto) 17.7 L (20-40) % Candler % (Auto) 9.8 (2-11) % Eos % (Auto) 0.7 (0-4) % Baso % (Auto) 0.2 (0-2) % Lymph # (Auto) 2.3 (1.2-4.9) X10*3/uL [place]ler # (Auto) 1.3 H (0.1-1.2) X10*3/uL Eos # (Auto) 0.1 (0.0-0.4) X10*3/uL Baso # (Auto) 0.0 (0.0-0.2) X10*3/uL Abs Immat Gran (auto) 0.05 H (0.00-0.03) X10*3/uL Absolute Neuts (auto) 9.3 H (2.0-8.3) x10*3/uL Absolute Nucleated RBC 0.000 (0.0-0.012) X10*3/uL Nucleated RBC % (auto) 0.0 (0.0-0.2) /100WBC Sodium 136 (135-145) mmol/L Potassium 4.1 (3.3-5.1) mmol/L Chloride 103 (96-108) mmol/L Carbon Dioxide 27 (22-29) mmol/L Anion Gap 10 L (12-20) BUN 16 (9-16) mg/dL Creatinine 1.21 (0.5-1.4) mg/dL Estim Creat Clear Calc 59.8 Estimated GFR 59 Random Glucose 216 H (60-115) mg/dL Calcium 9.1 (8.4-10.2) mg/dL Total Bilirubin 0.5 (0.0-1.0) mg/dL Direct Bilirubin 0.2 (0.0-0.5) mg/dL AST 26 (5-37) U/L ALT 19 (0-40) U/L Alkaline Phosphatase 103 (39-117) U/L Troponin I High Sens 37.7 H D (<3.5-35.0) ng/L Total Protein 6.6 (6.5-8.0) g/dL Albumin 3.6 (3.5-5.0) g/dL Lipase 7 L (8-78) U/L Urine Color Yellow Urine Appearance Clear Urine pH 7.0 (5.0-9.0) Ur Specific [place] 1.010 (1.005-1.025) Urine Protein 30 (1+) H (Neg-Trace) mg/dL Urine Glucose (UA) 100 H (Negative) mg/dL Urine Ketones Negative (Negative) mg/dL Urine Blood Negative (Negative) Urine Nitrite Negative (Negative) Ur Leukocyte Esterase Negative (Negative) Urine RBC 0-2 (0-2) /HPF Urine WBC 0-5 (0-5) /HPF Ur Squamous Epith Cells 0-2 (0-2) /HPF Urine Bacteria None Seen (None Seen) Hyaline Casts 0-2 (0-2) /LPF Influenza Type A (PCR) NEGATIVE (Negative) Influenza Type B (PCR) NEGATIVE (Negative) RSV RNA Qual (PCR) NEGATIVE (Negative) SARS-CoV-2 RNA (RT-PCR) NEGATIVE (Negative) S. pyogenes GrpA MIKE (Negative) 06/11/24 Range/Units 16:52 WBC (4.8-10.8) X10*3/uL RBC (4.60-5.80) X10*6/uL Hgb (14.0-18.0) g/dl Hct (42.0-52.0) % MCV (80.0-98.0) fL MCH (27.0-33.0) pg MCHC (31.0-36.0) g/dl RDW (11.0-16.0) % Plt Count (160-400) X10*3/uL MPV (9.4-12.4) fL Immature Gran % (Auto) (0.0-0.4) % Neut % (Auto) (45-73) % Lymph % (Auto) (20-40) % Candler % (Auto) (2-11) % Eos % (Auto) (0-4) % Baso % (Auto) (0-2) % Lymph # (Auto) (1.2-4.9) X10*3/uL Candler # (Auto) (0.1-1.2) X10*3/uL Eos # (Auto) (0.0-0.4) X10*3/uL Baso # (Auto) (0.0-0.2) X10*3/uL Abs Immat Gran (auto) (0.00-0.03) X10*3/uL Absolute Neuts (auto) (2.0-8.3) x10*3/uL Absolute Nucleated RBC (0.0-0.012) X10*3/uL Nucleated RBC % (auto) (0.0-0.2) /100WBC Sodium (135-145) mmol/L Potassium (3.3-5.1) mmol/L Chloride (96-108) mmol/L Carbon Dioxide (22-29) mmol/L Anion Gap (12-20) BUN (9-16) mg/dL Creatinine (0.5-1.4) mg/dL Estim Creat Clear Calc Estimated GFR Random Glucose (60-115) mg/dL Calcium (8.4-10.2) mg/dL Total Bilirubin (0.0-1.0) mg/dL Direct Bilirubin (0.0-0.5) mg/dL AST (5-37) U/L ALT (0-40) U/L Alkaline Phosphatase (39-117) U/L Troponin I High Sens 31.1 (<3.5-35.0) ng/L Total Protein (6.5-8.0) g/dL Albumin (3.5-5.0) g/dL Lipase (8-78) U/L Urine Color Urine Appearance Urine pH (5.0-9.0) Ur Specific [place] (1.005-1.025) Urine Protein (Neg-Trace) mg/dL Urine Glucose (UA) (Negative) mg/dL Urine Ketones (Negative) mg/dL Urine Blood (Negative) Urine Nitrite (Negative) Ur Leukocyte Esterase (Negative) Urine RBC (0-2) /HPF Urine WBC (0-5) /HPF Ur Squamous Epith Cells (0-2) /HPF Urine Bacteria (None Seen) Hyaline Casts (0-2) /LPF Influenza Type A (PCR) (Negative) Influenza Type B (PCR) (Negative) RSV RNA Qual (PCR) (Negative) SARS-CoV-2 RNA (RT-PCR) (Negative) S. pyogenes GrpA MIKE Positive A (Negative) Independent Interpretation I performed an independent interpretation of an: EKG ( my interpretation patient's EKG as above) and Plain X-Ray ( my interpretation patient's chest x- ray as above) Radiology Impression Discussion of test interpretation with radiology: I have reviewed the radiologist's reading. External Record Review External record reviewed: Inpatient record Chronic Conditions Patient?s care impacted by: Diabetes Social Determinants Patient?s care significantly limited by Social Determinants of Health including: Problems related to primary support group Discharge Plan Discharge Clinical Impression: Acute streptococcal pharyngitis Patient Disposition: Home, Self-Care Instructions: Strep Throat (DC) Prescriptions: New penicillin V potassium 500 mg tablet 500 mg PO TID Qty: 30 0RF No Action fluticasone propionate 50 mcg/actuation spray,suspension 1 spray intranasal DAILY Qty: 16 2RF (DME) pen needle, diabetic [Lite Touch Insulin Pen [place]] 31 gauge x 5/16 needle See Rx Instructions .Route Qty: 100 12RF Rx Instructions: Use 3 times daily (DME) lancets [OneTouch Delica Lancets] 33 gauge misc See Rx Instructions .Route Qty: 100 12RF Rx Instructions: As directed 3 times a day metoclopramide HCl [Reglan] 10 mg tablet 10 mg PO AC PRN (Reason: nausea and vomiting) Qty: 20 0RF OneTouch Ultra Blue Test Strip Strip 1 strip miscellaneous TID Qty: 100 3RF (DME) blood-glucose meter [OneTouch Ultra2 Meter] Misc See Rx Instructions .ROUTE TID Qty: 1 Rx Instructions: test 3 times per day (DME) OneTouch Ultra Test Strip See Rx Instructions .Route Qty: 100 8RF Rx Instructions: test 3 times per day (DME) pen needle, diabetic [BD Ultra-Fine Orig Pen Needle] 29 gauge x 1/2 needle See Rx Instructions .Route Qty: 100 12RF Rx Instructions: 3 times daily (DME) WALKER See Rx Instructions .Route .MEDSUPPLY Qty: 1 0RF Rx Instructions: As directed (DME) Monthly Medication Organizer (Med-Box) 0 .Route .MEDSUPPLY (DME) monthly medication organizer (med box) See Rx Instructions .Route .MEDSUPPLY Qty: 1 0RF Rx Instructions: monthly medication organizer box; (DME) Semi-Electric Hospital Bed See Rx Instructions .Route .MEDSUPPLY Qty: 1 0RF Rx Instructions: As directed cholecalciferol (vitamin D3) [Vitamin D3] 50 mcg (2,000 unit) capsule 50 mcg PO DAILY Qty: 90 3RF (DME) Disposable 30x30 polymer pads heavy floweds See Rx Instructions .Route .MEDSUPPLY Qty: 90 11RF Rx Instructions: As directed (DME) Active Mal guard pads 6 x 11 See Rx Instructions .Route .MEDSUPPLY Qty: 208 0RF Rx Instructions: As directed (DME) Cleansing wipes See Rx Instructions .Route .MEDSUPPLY Qty: 100 11RF Rx Instructions: As directed (DME) Powder free synthetic exam gloves small See Rx Instructions .Route .MEDSUPPLY Qty: 100 11RF Rx Instructions: As directed glucose 4 gram tablet,chewable 16 g PO Q15M Qty: 10 5RF Rx Instructions: Chew 4 tablets as needed for low blood sugar (less than 70 mg/dL) every 15 minutes until symptoms improve docusate sodium 100 mg capsule 100 mg PO BID PRN (Reason: constipation) 30 Days Qty: 60 3RF hydroxyzine HCl 25 mg tablet 25 mg PO Q6H PRN (Reason: anxiety) 30 Days Qty: 120 3RF omeprazole 40 mg capsule,delayed release(DR/EC) 40 mg PO DAILY Qty: 30 3RF (DME) pen needle, diabetic [BD Ultra-Fine Brittany Pen Needle] 32 gauge x / needle See Rx Instructions .Route Qty: 1200 11RF Rx Instructions: test 3 times daily aspirin 81 mg tablet,delayed release (DR/EC) 81 mg PO DAILY Qty: 90 0RF lisinopril 10 mg tablet 10 mg PO DAILY 90 Days Qty: 90 1RF metoprolol tartrate 50 mg tablet 50 mg PO BID Qty: 180 1RF naproxen 500 mg tablet 500 mg PO BID PRN (Reason: pain) Qty: 60 0RF metformin 500 mg tablet extended release 24 hr 1,500 mg PO DAILY 90 Days Qty: 270 0RF lidocaine 5 % adhesive patch,medicated 1 patch topical DAILY Qty: 30 0RF Rx Instructions: leave on most painful area for up to 12 hrs albuterol sulfate 90 mcg/actuation HFA aerosol inhaler 2 puff PO Q4-6H PRN (Reason: for wheezing) Qty: 8.5 2RF dicyclomine 20 mg tablet 20 mg PO QID PRN (Reason: abdominal pain) Qty: 20 0RF ondansetron HCl 4 mg tablet 4 mg PO Q6H PRN (Reason: nausea and vomiting) Qty: 14 0RF polyethylene glycol 3350 [Miralax] 17 gram/dose powder 17 g PO DAILY PRN (Reason: Constipation) phenazopyridine [Pyridium] 200 mg tablet 200 mg PO TID 2 Days Qty: 6 0RF ondansetron 4 mg tablet,disintegrating 4 mg PO Q8H PRN (Reason: nausea and vomiting) Qty: 20 0RF lorazepam [Ativan] 1 mg tablet 1 mg PO BEDTIME PRN (Reason: anxiety/sleep) Qty: 10 0RF dicyclomine 20 mg tablet 20 mg PO TID PRN (Reason: Abdominal Discomfort) Qty: 20 0RF ondansetron 4 mg tablet,disintegrating 4 mg PO Q6-8H PRN (Reason: nausea and vomiting) Qty: 7 0RF ([facility]) SHOWER CHAIR See Rx Instructions .Route .MEDSUPPLY Qty: 1 0RF Rx Instructions: As directed ([facility]) SHOWER CHAIR See Rx Instructions .Route .MEDSUPPLY Qty: 1 0RF Rx Instructions: As directed ([facility]) insulin syr/ndl U100 half gareth 0.5 mL 30 gauge x 5/16 syringe See Rx Instructions .Route Qty: 100 12RF Rx Instructions: Use 4 times daily gabapentin 400 mg capsule 400 mg PO TID Qty: 270 1RF (DME) walker Misc See Rx Instructions .Route Qty: 1 0RF Rx Instructions: As directed cyanocobalamin (vitamin B-12) 1,000 mcg tablet 1,000 mcg PO DAILY 90 Days Qty: 90 3RF insulin glargine U-300 conc [Toujeo Max U-300 SoloStar] 300 unit/mL (3 mL) insulin pen 120 unit subcut BEDTIME Qty: 18 3RF insulin lispro [Humalog KwikPen Insulin] 100 unit/mL insulin pen 2 - 12 unit subcut .TIDAC (DME) FreeStyle Iwona 3 Sensor Device See Rx Instructions .ROUTE .MEDSUPPLY Qty: 2 11RF Rx Instructions: As directed (DME) FreeStyle Iwona 3 [place]wood Misc See Rx Instructions .ROUTE .MEDSUPPLY Qty: 1 0RF Rx Instructions: as directed metaxalone 800 mg tablet 800 mg PO BEDTIME Qty: 10 0RF atorvastatin 80 mg tablet 80 mg PO DAILY 90 Days Qty: 90 1RF oxybutynin chloride 10 mg tablet extended release 24hr 10 mg PO DAILY Qty: 90 0RF tamsulosin [Flomax] 0.4 mg capsule 0.4 mg PO BEDTIME Qty: 90 2RF paroxetine HCl 40 mg tablet 40 mg PO DAILY Qty: 90 0RF Print Language: Belarusian
[2024-06-11] MEDS: 0.9 % Sodium Chloride 1,000 ML 999 ML IV (12:12)
[2024-06-11 12:18] LABS: MANUAL DIFF FLAG NO
--- NOTE | 2024-06-11 12:20 | ECG_ITS ---
Test Reason : cp Blood Pressure : */* mmHG Vent. Rate : 64 BPM Atrial Rate : 64 BPM P-R Int : 216 ms QRS Dur : 94 ms QT Int : 426 ms P-R-T Axes : 39 -29 -6 degrees QTcB Int : 439 ms Sinus rhythm with 1st degree A-V block Moderate voltage criteria for LVH, may be normal variant ( R in aVL , Ezekiel product ) Septal infarct (cited on or before 01-Mar-2024) Abnormal ECG When compared with ECG of 11-Jun-2024 12:17, Premature supraventricular complexes are no longer Present QT has lengthened Referred By: Sada Rodriguez Electronically Signed By: JAIME CASTRO
[2024-06-11 12:21] LABS: Basophils Percent Auto 0.2 % (0-2); Eosinophils Absolute Auto 0.1 X10*3/uL (0.0-0.4); Eosinophils Percent Auto 0.7 % (0-4); Hemoglobin 11.3 g/dl (14.0-18.0); Imm Gran Abs Auto 0.05 X10*3/uL (0.00-0.03); Imm Gran Pct Auto 0.4 % (0.0-0.4); Lymphocytes Absolute Auto 2.3 X10*3/uL (1.2-4.9); Lymphocytes Percent Auto 17.7 % (20-40); Mean Corpuscular HGB Conc 33.2 g/dl (31.0-36.0); Mean Corpuscular Hemoglobin 29.5 pg (27.0-33.0); Mean Corpuscular Volume 88.8 fL (80.0-98.0); Monocytes Absolute Auto 1.3 X10*3/uL (0.1-1.2); Monocytes Percent Auto 9.8 % (2-11); Neutrophils Absolute Auto 9.3 x10*3/uL (2.0-8.3); Neutrophils Percent Auto 71.2 % (45-73); Platelet Count 208 X10*3/uL (160-400); Red Blood Count 3.83 X10*6/uL (4.60-5.80); Red Cell Distribution Width 12.6 % (11.0-16.0); White Blood Count 13.1 X10*3/uL (4.8-10.8)
[2024-06-11 12:41] LABS: Alanine Aminotransferase 19 U/L (0-40); Albumin Level 3.6 g/dL (3.5-5.0); Alkaline Phosphatase 103 U/L (39-117); Anion Gap 10 (12-20); Aspartate Amino Transferase 26 U/L (5-37); Bilirubin Direct 0.2 mg/dL (0.0-0.5); Bilirubin Total 0.5 mg/dL (0.0-1.0); Blood Urea Nitrogen 16 mg/dL (9-16); Calcium 9.1 mg/dL (8.4-10.2); Carbon Dioxide 27 mmol/L (22-29); Chloride 103 mmol/L (96-108); Creatinine Clr Calc Pharmacy 59.8; Estimated Glomerular Filt Rate 59; Glucose Random 216 mg/dL (60-115); Lipase 7 U/L (8-78); Potassium 4.1 mmol/L (3.3-5.1); Sodium 136 mmol/L (135-145); Total Protein 6.6 g/dL (6.5-8.0)
[2024-06-11 12:48] LABS: Troponin-I High Sensitivity 37.7 ng/L (<3.5-35.0)
[2024-06-11 13:00] LABS: Influenza A PCR NEGATIVE (Negative); Influenza B PCR NEGATIVE (Negative); Resp Syncy Virus RNA Qual PCR NEGATIVE (Negative); SARS COV2 PCR INHOUSE NEGATIVE (Negative)
--- OUTSIDE RECORDS SUMMARY | 2024-06-11 14:40 | XMS_ITS ---
Author Name Tammy Vega NP Address [address] [place] [address] Phone [phone] [facility] [employer] [facility] Care Team Providers Care Resident Hall Director Name Role Phone Cale Vegakiara Unavailable [phone] [facility] Unavailable [phone] Unavailable Unavailable Unavailable Unavailable Unavailable Unavailable [facility] Unavailable HungJerry carrillo Unavailable [phone] Reason for Referral Not Available Allergies, adverse [...] No Data Available B-D PEN NDL SHRT [id number](07/23) ANNAMARIE USE TO INJECT 3 TIMES DAILY 2021-06-05 2023-12-12 Clotrimazole-Betamethasone 1-0.05 % Crm APPLY TOPICALLY TO THE AFFECTED AREA TWICE DAILY FOR 15 DAYS 2021-11-26 No Data Available Lisinopril 10 mg Tab TAKE 1 TABLET BY [facility] DAILY 2022-02-05 2024-06-01 Trulicity 1.5 mg/0.5ML Solution [...] 2022-03-12 No Data Available OneTouch Delica Plus [id number] Miscellaneous TEST BLOOD SUGAR THREE TIMES DAILY [...] 40 mg Tab TAKE 1 TABLET BY [facility] DAILY 2022-07-12 No Data Available Polyethylene Glycol 3350 17 GM Packet Mix 1 packet in 8 ounces of water, juice, coffee or tea and drink once a day 2022-07-14 No Data Available Vitamin D3 50 mcg (2,000 unit) capsule TAKE 1 CAPSULE BY MOUTH DAILY 2021-09-07 No Data Available predniSONE 20 mg Tab TAKE 2 TABLETS BY [facility] DAILY x 3days 2022-10-11 2022-10-18 Aspirin 81 [...] Resolved Date BPH (benign prostatic hyperplasia) Active 2021-03-13 N/A Hyperlipidemia Active 2022-02-19 N/A Morbid (severe) [...] Active 2023-04-04 N/A Incontinence Active 2024-06-08 N/A Chronic obstructive airway d iseasePulmonary emphysema, unspecified emphysema type Active 2022-02-19 N/ A Altered mental state Resolved 2023-07-312024-06 Diabetes mellitus with other complicationsHLD Active 2022-02-19 N/A Other problems related to [facility] facilities and other health care Active 2024-03-08 N/A URI (upper respiratory infection) Active 2024-06 N/A Hypertension Active 2022-02-19 N/A Diabetic peripheral neuropat hy associated with type 2 diabetes mellitus Active 2022-02-19 N/A History of recent hospitalization Active 2024-02 N/A Encounters Encounters Type Facility Date of Service Diagnosis/Co mplaint New patient,40-59min; chronic exacerbation, 2 stable chronic or 1 acute illness add add modifier 95 for video (do not use for phone, instead use 19514-74) [facility], ([place]22 Morbid (severe) obesity due to excess caloriesBody mass index (BMI) 40.0-44.9, adultChronic obstructive pulmonary disease, unspecifiedEnlarged prostate without lower urinary tract symptomsType 2 diabetes mellitus with diabetic polyneuropathyEssential (primary) hypertensionHyperlipidemia, unspecifiedMajor depressive disorder, single episode, in full remissionLow back pain, unspecifiedAthscl heart disease of [place] coronary artery w/o ang pctrsType 2 diabetes mellitus with other specified complicationLong term (current) use of insulin New patient,40-59min; chronic exacerbation, 2 stable chronic or 1 acute illness add add modifier 95 for video (do not use for phone, instead use 12760-50) [facility], ([place]19[place] New patient,40-59min; chronic exacerbation, 2 stable chronic or 1 acute illness add add modifier 95 for video (do not use for phone, instead use 99726-86) [facility] ([place] 02[place] New patient,40-59min; chronic exacerbation, 2 stable chronic or 1 acute illness add add modifier 95 for video (do not use for phone, instead use 38195-23) [facility] New patient,40-59min; chronic exacerbation, 2 stable chronic or 1 acute illness add add modifier 95 for video (do not use for phone, instead use 86016-10) [facility] [place] 02[place] New patient,40-59min; chronic exacerbation, 2 stable chronic or 1 acute illness add add modifier 95 for video (do not use for phone, instead use 93675-76) [facility], [place] 02[place]19/2022 RN, CN or CP time with patient by phone; use with 1111F, BP, A1c or other CPTII codes [facility], ([place]) 10/14/2022 Encounter for other specifie d aftercare RN, CN or CP time with patient by phone; use with 1111F, BP, A1c or other CPTII codes [facility], ([place] 10/14/2022 Estab. patient 30-39min; chronic exacerbation, 2 stable chronic or 1 acute illness add add modifier 95 for video, (do not use for phone, instead use 52177-89) [facility] [place]18[place]2022 Type 2 diabetes mellitus wit h [...] (do not use for phone, instead use 79478-39) [facility]18/20[place] Estab. patient 30-39min; chronic exacerbation, 2 stable chronic or 1 acute illness add add modifier 95 for video, (do not use for phone, instead use 91478-44) [facility] 10[place]18/20[place] Estab. patient 30-39min; chronic exacerbation, 2 stable chronic or 1 acute illness add add modifier 95 for video, (do not use for phone, instead use 00327-31) [facility] 10[place]18/2022 Estab. patient 30-39min; chronic exacerbation, 2 stable chronic or 1 acute illness add add modifier 95 for video, (do not use for phone, instead use 37518-44) [facility], ([place] 10[place]18/20[place] Estab. patient 30-39min; chronic exacerbation, 2 stable chronic or 1 acute illness add add modifier 95 for video, (do not use for phone, instead use 76823-92) [facility] 10[place]18/2022 Estab. patient 30-39min; chronic exacerbation, 2 stable chronic or 1 acute illness add add modifier 95 for video, (do not use for phone, instead use 97125-38) [facility] 10[place]18/2022 Estab. patient 30-39min; chronic exacerbation, 2 stable chronic or 1 acute illness add add modifier 95 for video, (do not use for phone, instead use 96141-02) [facility] 10[place]18/2022 Estab. patient 30-39min; chronic exacerbation, 2 stable chronic or 1 acute illness add add modifier 95 for video, (do not use for phone, instead use 76025-12) [facility] 10[place]18/2022 Estab. patient 30-39min; chronic exacerbation, 2 stable chronic or 1 acute illness add add modifier 95 for video, (do not use for phone, instead use 14516-56) [facility] 10[place]18/2022 Unlisted special service; to be used for medical record reviews and reporting CPTII codes (1111F, etc) [facility], [place]/25/2022 Other specified health statu s Unlisted special service; to be used for medical record reviews and reporting CPTII codes (1111F, etc) [facility]/2022 Unlisted special service; to be used for medical record reviews and reporting CPTII codes (1111F, etc) [facility] 11/[place]/2022 No Data Available [facility] 02[place]/2023 Type 2 diabetes mellitus wit h other specified complicationEmphysema, unspecifiedEnlarged prostate without lower urinary tract symptomsType 2 diabetes mellitus with diabetic polyneuropathyEssential (primary) hypertensionHyperlipidemia, unspecifiedMajor depressive disorder, single episode, in full remissionLow back pain, unspecifiedAthscl heart disease of [place] coronary artery w/o ang pctrsMorbid (severe) obesity due to excess caloriesBody mass index (BMI) 40.0-44.9, adult No Data Available [facility] 02/[place]/2023 No Data Available [facility] 02/[place]/2023 No Data Available [facility] 02/[place]/20[place] No Data Available [facility] No Data Available [facility] No Data Available [facility] 04[place]04[place]2023 Type 2 diabetes mellitus wit h [...] initial encounterAnxiety disorder, unspecified No Data Available [facility] No Data Available [facility] No Data Available [facility] No Data Available [facility] No Data Available [facility]20[place] No Data Available [facility]20[place] No Data Available [facility]20[place] No Data Available [facility]02[place]2023 Type 2 diabetes mellitus wit h other specified complicationEmphysema, unspecifiedEnlarged prostate without lower urinary tract symptomsType 2 diabetes mellitus with diabetic polyneuropathyEssential (primary) hypertensionHyperlipidemia, unspecifiedLow back pain, unspecifiedAthscl heart disease of [place] coronary artery w/o ang pctrsBody mass index (BMI) 40.0-44.9, adultMorbid (severe) obesity due to excess caloriesOther problems related to medical facilities and other health careUnspecified fall, initial encounterAnxiety disorder, unspecifiedMajor depressive disorder, recurrent, moderate No Data Available [facility]20[place] No Data Available [facility] No Data Available [facility]20[place] No Data Available [facility]20[place] No Data Available [facility] 05[place]02[place]2023 No Data Available [facility] 05[place]/2023 Type 2 [...] unspecifiedUnspecified fall, subsequent encounter No Data Available [facility] 05[place]2023 No Data Available [facility]20[place] No Data Available [facility]2023 No Data Available [facility]20[place] No Data Available [facility] 05[place]20[place] No Data Available [facility] 07[place]/2023 Type 2 diabetes mellitus wit h other specified complicationHyperlipidemia, unspecifiedLong term (current) use of insulinLong-term (current) use of injectable non-insulin antidiabetic drugsOther problems related to medical facilities and other health care No Data Available [facility] 07[place]/2023 Altered mental status, unspecified No Data Available [facility] 08/[place]/2023 Altered mental status, unspecifiedOther problems related to medical facilities and other health care No Data Available [facility] 10[place]02/2023 Type 2 diabetes mellitus wit h other specified complicationHyperlipidemia, unspecifiedOther problems related to medical facilities and other health careAltered mental status, unspecified Estab. patient 30-39min; chronic exacerbation, 2 stable chronic or 1 acute illness add add modifier 95 for video, (do not use for phone, instead use 54828-09) [facility]2023 Type 2 diabetes mellitus wit h [...] (do not use for phone, instead use 37462-65) [facility] 12[place]10/2023 Estab. patient 30-39min; chronic exacerbation, 2 stable chronic or 1 acute illness add add modifier 95 for video, (do not use for phone, instead use 93245-30) [facility] 12[place]10/2023 Estab. patient 30-39min; chronic exacerbation, 2 stable chronic or 1 acute illness add add modifier 95 for video, (do not use for phone, instead use 36971-91) [facility] 12[place]/2023 Estab. patient 30-39min; chronic exacerbation, 2 stable chronic or 1 acute illness add add modifier 95 for video, (do not use for phone, instead use 25185-03) [facility] 12[place]10/2023 Estab. patient 30-39min; chronic exacerbation, 2 stable chronic or 1 acute illness add add modifier 95 for video, (do not use for phone, instead use 48175-13) [facility] 12[place]2023 Estab. patient 30-39min; chronic exacerbation, 2 stable chronic or 1 acute illness add add modifier 95 for video, (do not use for phone, instead use 90560-40) [facility] 12[place]10[place]2023 Estab. patient 30-39min; chronic exacerbation, 2 stable chronic or 1 acute illness add add modifier 95 for video, (do not use for phone, instead use 30903-65) [facility] 12[place]2023 Estab. patient 30-39min; chronic exacerbation, 2 stable chronic or 1 acute illness add add modifier 95 for video, (do not use for phone, instead use 42658-55) [facility] 12[place]/2023 Estab. patient 30-39min; chronic exacerbation, 2 stable chronic or 1 acute illness add add modifier 95 for video, (do not use for phone, instead use 13894-64) [facility] [place] No Data Available [facility] [place]2023 Major depressive disorder, recurrent, moderateType 2 diabetes mellitus with other specified complicationHyperlipidemia, unspecifiedPolyosteoarthritis, unspecifiedUnsteadiness on feetAnxiety disorder, unspecifiedOther problems related to medical facilities and other health careLow back pain, unspecifiedUnspecified fall, initial encounter No Data Available [facility] [place]20[place] No Data Available [facility] [place] No Data Available [facility] [place] No Data Available [facility] [place] No Data Available [facility] [place] Essential (primary) hypertensionType 2 diabetes mellitus with other specified complicationNicotine dependence, unspecified, in remissionHyperlipidemia, unspecifiedOther problems related to medical facilities and other health care No Data Available [facility] [place] No Data Available [facility] [place] No Data Available [facility] [place] No Data Available [facility] [place] No Data Available [facility] [place] No Data Available [facility] [place]2024 Other malaiseRepeated fallsPersonal history of other medical treatment No Data Available [facility] [place] No Data Available [facility] [place] No Data Available [facility] [place] 02[place]27[place]20[place] No Data Available [facility] [place] 03[place]08/2024 Anxiety disorder, unspecifiedAcute upper respiratory infection, unspecifiedOther problems related to medical facilities and other health care No Data Available [facility] [place]20[place] No Data Available [facility] [place] Estab. patient 10-29min; 1 minor problem; add add modifier 95 for video, modifier 93 for phone [facility] [place] 03[place]12/2024 Acute upper respiratory infection, unspecifiedOther problems related to medical facilities and other health care Estab. patient 10-29min; 1 minor problem; add add modifier 95 for video, modifier 93 for phone [facility] [place] 03[place]12/20[place] Estab. patient 10-29min; 1 minor problem; add add modifier 95 for video, modifier 93 for [facility], [place] 04[place]07/2024 Low back pain, unspecifiedOt her problems related to medical facilities and other health care RN, CN or CP time with patient by phone; use with 1111F, BP, A1c or other CPTII codes [facility], [place] 06/[place]/20[place] Encounter for other specifie d aftercare RN, CN or CP time with patient by phone; use with 1111F, BP, A1c or other CPTII codes [facility], [place] 06/01/20[place] Estab. patient 10-29min; 1 minor problem; add add modifier 95 for video, modifier 93 for phone [facility] [place] 06/04/2024 Other problems related to medical facilities and other health careUnspecified abdominal pain Estab. patient 10-29min; 1 minor problem; add add modifier 95 for video, modifier 93 for phone [facility], [place] 2024 Type 2 diabetes mellitus wit h other specified complicationHyperlipidemia, unspecifiedEmphysema, unspecifiedUnspecified urinary incontinenceUnspecified fall, subsequent encounterPersonal history of other medical treatment Estab. patient 10-29min; 1 minor problem; add add modifier 95 for video, modifier 93 for [facility] [facility] Estab. patient 10-29min; 1 minor problem; add add modifier 95 for video, modifier 93 for phone [facility] [place] Estab. patient 10-29min; 1 minor problem; add add modifier 95 for video, modifier 93 for phone [facility] 06/[place]/2024 Type 2 diabetes mellitus wit h other specified complicationOther problems related to medical facilities and other health care Estab. patient 10-29min; 1 minor problem; add add modifier 95 for video, modifier 93 for phone [facility] [place]24 Acute upper respiratory infection, unspecifiedEssential (primary) hypertensionType 2 diabetes mellitus with diabetic polyneuropathy Estab. patient 10-29min; 1 minor problem; add add modifier 95 for video, modifier 93 for phone [facility] [place] 06[place]/2024 Other problems related to medical facilities and other health carePersonal history of other medical treatment Vital Signs Date of Collection Vitals 2022-02-19 [...] (do not use for phone, instead use 61748-53) [id number] 2022-02-19 No Data Available No Data Availa [...] 1111F, BP, A1c or other CPTII codes 77174 2022-10-14 No Data Available No Data Avai lable Medications prescribed in hospital were reviewed and reconciled against what they were taking prior to admission during today's visit. (1111F) 1111F 2022-10-14 No Data Available No Data Availa ble Estab. patient 30-39min; chronic exacerbation, 2 stable chronic or 1 acute illness add add modifier 95 for video, (do not use for phone, instead use 32420-57) 08253 2022-10-18 No Data Available No Data Availa [...] reviews and reporting CPTII codes (1111F, etc) 78105 2022-11-25 No Data Available No Data Availa ble DBP <80 (3078F) 3078F 2022-11-25 No Data Available No Data Available SBP < 130 (3074F) 3074F 2022-11-25 No Data Available No Data Available No Data Available [id number] 2023-02-24 No Data Available No Data Available [...] le No Data Available No Data Available [id number] 2023-04-04 No Data Available No Data Available [...] No Data Avail able No Data Available [id number] 2023-05-20 No Data Available No Data Available [...] le No Data Available No Data Available [id number] 2023-07-08 No Data Available No Data Available No Data Available [id number] 2023-07-31 No Data Available No Data Available No Data Available 2023-08-26 No Data Available No Data Available No Data Available [id number] 2023-10-02 No Data Available No Data Available Estab. patient 30-39min; chronic exacerbation, 2 stable chronic or 1 acute illness add add modifier 95 for video, (do not use for phone, instead use 25791-20) 94363 2023-12-10 No Data Available No Data Availa [...] No Data Avail able No Data Available [id number] 2023-12-18 No Data Available No Data Available [...] Available No Data Available No Data Available [id number] 2024-01-14 No Data Available No Data Available [...] No Data Availa ble No Data Available 2024-02-27 No Data Available No Data Available [...] 95 for video, modifier 93 for phone [id number] 2024-03-12 No Data Available No Data Availa ble Medication List Documented (1159F) 1159F 2024-03-12 No Data Available No Data Colette ilable Estab. patient 10-29min; 1 minor problem; add add modifier 95 for video, modifier 93 for phone 2024-04-07 No Data Available No Data Availa ble RN, CN or CP time with patient by phone; use with 1111F, BP, A1c or other CPTII codes 63361 2024-06-01 No Data Available No Data Avai lable Medications prescribed in hospital were reviewed and reconciled against what they were taking prior to admission during today's visit. (1111F) 1111F 2024-06-01 No Data Available No Data Availa ble Estab. patient 10-29min; 1 minor problem; add add modifier 95 for video, modifier 93 for phone 2024-06-04 No Data Available No Data Availa ble Estab. patient 10-29min; 1 minor problem; add add modifier 95 for video, modifier 93 for phone 2024 No Data Available No Data Availa [...] 95 for video, modifier 93 for phone [id number] 2024-06-09 No Data Available No Data Availa ble Estab. patient 10-29min; 1 minor problem; add add modifier 95 for video, modifier 93 for phone [id number] 2024-06-10 No Data Available No Data Availa ble Estab. patient 10-29min; 1 minor problem; add add modifier 95 for video, modifier 93 for phone [id number] 2024-06-11 No Data Available No Data Availa ble Functional Status Functional Category Effective Dates ADLsDressing - Needs assista nceBathing - Needs assistanceToileting - Needs assistanceTransfers - Needs assistanceEating - IndependentiADLsShopping - Needs assistanceMedications - IndependentHousekeeping - Needs assistanceCooking - Needs assistanceFalls in last 6 months - Yes 2022-10-18 [employer] coming in M-F only one h our per day (originally approved for 10 hours) 2023-04-04 uses cane and walker at home to ambulate 2023-12-18 EQUITY STRUCTURER is his niece. [employer] 2023-12-18 has meals [...] neuropathy associated with type 2 diabetes mellitus 2024-06-11 09:57:26 Other problems relat ed to medical facilities and other health careHistory of recent hospitalization Plan of Care Date of Service Plans [...] denies monitoring BGLantus, TrulicityContinue to f/u w/ drywall finishing foreman q3-6 months, monitor BG levels, discussed dietary and exercise interventions, contact us if develop hyperglycemia s/sxStableAlbuterol, FloventMonitor O2, take medications as Rx, continue f/u care w/ PCP [id number], contact us if you develop respiratory distressStableTamsulosinMonitor urine output, continue taking medication as prescribed, f/u PCP [id number], contact us if develop acute decrease in [...] denies monitoring BGLantus, TrulicityContinue to f/u w/ drywall finishing foreman q3-6 months, monitor BG levels, discussed dietary and exercise interventions, contact us if develop hyperglycemia s/sxStableAlbuterol, FloventMonitor O2, take medications as Rx, continue f/u care w/ PCP [id number], contact us if you develop respiratory distressStableTamsulosinMonitor urine output, continue taking medication as prescribed, f/u PCP [id number], contact us if develop acute decrease in [...] denies monitoring BGLantus, TrulicityContinue to f/u w/ drywall finishing foreman q3-6 months, monitor BG levels, discussed dietary and exercise interventions, contact us if develop hyperglycemia s/sxStableAlbuterol, FloventMonitor O2, take medications as Rx, continue f/u care w/ PCP [id number], contact us if you develop respiratory distressStableTamsulosinMonitor urine output, continue taking medication as prescribed, f/u PCP [id number], contact us if develop acute decrease in [...] coping mechanisms and benefits of potential verbal kjpamma81/18/23: feels more calm now that he's home; [...] denies monitoring BGLantus, TrulicityContinue to f/u w/ drywall finishing foreman q3-6 months, monitor BG levels, discussed dietary and exercise interventions, contact us if develop hyperglycemia s/sxCONTINGENCY PLANMember to call for the following symptoms: Blood sugar <70/ Blood sugar >300/ More thirsty than usual/ Urinating more than usualPlanned intervention:StableAlbuterol, FloventMonitor O2, take medications as Rx, continue f/u care w/ PCP [id number], contact us if you develop respiratory distressStableTamsulosinMonitor urine output, continue taking medication as prescribed, f/u PCP [id number], contact us if develop acute decrease in [...] call CBContinue to see PCP. Follow-up with [facility] as [...] denies monitoring BGLantus, TrulicityContinue to f/u w/ drywall finishing foreman q3-6 months, monitor BG levels, discussed dietary and exercise interventions, contact us if develop hyperglycemia s/sxCONTINGENCY PLANMember to call for the following symptoms: Blood sugar <70/ Blood sugar >300/ More thirsty than usual/ Urinating more than usualPlanned intervention:StableAlbuterol, FloventMonitor O2, take medications as Rx, continue f/u care w/ PCP [id number], contact us if you develop respiratory distressStableTamsulosinMonitor urine output, continue taking medication as prescribed, f/u PCP [id number], contact us if develop acute decrease in [...] denies monitoring BGLantus, TrulicityContinue to f/u w/ drywall finishing foreman q3-6 months, monitor BG levels, discussed dietary and exercise interventions, contact us if develop hyperglycemia s/sxCONTINGENCY PLANMember to call for the following symptoms: Blood sugar <70/ Blood sugar >300/ More thirsty than usual/ Urinating more than usualPlanned intervention: 05/20/23: had episodes of hypoglycemia in STR; have decreased lantus to 60Units per nightStableAlbuterol, FloventMonitor O2, take medications as Rx, continue f/u care w/ PCP [id number], contact us if you develop respiratory distressStableTamsulosinMonitor urine output, continue taking medication as prescribed, f/u PCP [id number], contact us if develop acute decrease in [...] denies monitoring BGLantus, TrulicityContinue to f/u w/ drywall finishing foreman q3-6 months, monitor BG levels, discussed dietary [...] medication instructions. He has an appt with [facility] on August 07. I reviewed the current [...] date) tx from the hospital to a prison for advanced dementia per cg. 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 I left a message to the patient's son Manuel for add. information. Placed member on hold due to placement.08/26/23: Son reports that the patient returned home 2 weeks ago from SNF. The family has been providing 30/09 support but he reports that the patient needs more EQUITY STRUCTURER hours to continue to providing adequate care. I provided [facility] number for follow up. [...] joint pain increased [facility]. Follow-up with [facility] [...] denies monitoring BGLantus, TrulicityContinue to f/u w/ drywall finishing foreman q3-6 months, monitor BG levels, discussed dietary [...] reports that the patient recently started with EQUITY STRUCTURER (niece) to help with his care. He was previously non-compliant with his medications and insulin; EQUITY STRUCTURER Crystal is helping with his medication management [...] date) tx from the hospital to a prison for advanced dementia per cg. I left a message to the patient's son Manuel for add. information. Placed member on hold due to placement.08/26/23: Son reports that the patient returned home 2 weeks ago from SNF. The family has been providing 30/09 support but he reports that the patient needs more EQUITY STRUCTURER hours to continue to providing adequate care. I provided [facility] CC number for follow up. Denies any other concerns at this time. He reports that the patient requires care with all ADLs and reminders to eat and drink medications. 7/25/24: Son reports that the patient's cognitive status [...] denies monitoring BGLantus, TrulicityContinue to f/u w/ drywall finishing foreman q3-6 months, monitor BG levels, discussed dietary [...] reports that the patient recently started with EQUITY STRUCTURER (niece) to help with his care. He was previously non-compliant with his medications and insulin; EQUITY STRUCTURER Crystal is helping with his medication management due to BS in 300's avg.StableAlbuterol, FloventMonitor O2, take medications as Rx, continue f/u care w/ PCP [id number], contact us if you develop respiratory distressStableTamsulosinMonitor urine output, continue taking medication as prescribed, f/u PCP [id number], contact us if develop acute decrease in [...] but in pain and frustrated about reduced EQUITY STRUCTURER hours. Please keep a log and we [...] joint pain increased [facility]. [facility] with [facility] as needed for any acute or [...] (for RLS)Large Anxiety component (exacerbated end of 2022)taking paroxetine 40mg 02/24/23: feels more calm [...] PT - asking PCP.Due to not enough EQUITY STRUCTURER presence, has fallen a number of times recently, and hurt his ribs badly.Also needs medication reminders. Reduced EQUITY STRUCTURER hours because they were sending meals on wheels. EQUITY STRUCTURER has been with him since August and [...] (with food)Patient verbalized understanding. Caregiver verbalized understanding.Reduced EQUITY STRUCTURER hours because they were sending meals on wheels but has not received the meals yet.Also needs medication reminders now that his EQUITY STRUCTURER is not there as much - at risk for noncompliance.Reduced EQUITY STRUCTURER hours because they were sending meals on wheels. EQUITY STRUCTURER has been with him since August and [...] oxybutynin. Will send via sms to his [facility] member to call: If he falls or feels dizzy and is at danger of fallingIf bp is elevated sbp>150; dbp>90 or symptomatic-h/a, dizziness, cp, sob. if BS >300 or BS<90 or symptomatic; i.e., dizzy, off balance , shaky, general weakness. if UTI symptoms arise-urinary frequency, dysuria, low abd pain. if pain in knees increases/ or joint pain increased Please [facility]. Follow-up with [facility] as [...] denies monitoring BGLantus, TrulicityContinue to f/u w/ drywall finishing foreman q3-6 months, monitor BG levels, discussed dietary [...] reports that the patient recently started with EQUITY STRUCTURER (niece) to help with his care. He was previously non-compliant with his medications and insulin; EQUITY STRUCTURER Crystal is helping with his medication management [...] documented ([id number])Continue to see PCP. Follow-up with [facility] as needed for any acute or disease education needs that may arise 30/09.Type 2 diabetes mellitus with HLDNo A1c on EMR, Pt denies monitoring BGLantus, TrulicityContinue to f/u w/ drywall finishing foreman q3-6 months, monitor BG levels, discussed dietary [...] reports that the patient recently started with EQUITY STRUCTURER (niece) to help with his care. He was previously non-compliant with his medications and insulin; EQUITY STRUCTURER Crystal is helping with his medication management due to BS in 300's avg.10: reports his BS have decreased. Now <200 average. Is f/u wit pcp and reports good bs and good BP during visit no records available to review today01/14/2024 patient visited drywall finishing foreman this week . patient states that his BG is controlled for the most part.StablePt denies monitoring BPLisinopril, MetoprololDiscussed dietary and exercise interventions, f/u w/ PCP q6-12 months, contact us develop emergent HTN s/sx1BP 150/76 today but in pain and frustrated about reduced EQUITY STRUCTURER hours. Please keep a log and we [...] joint pain increased Please [facility]. Follow-up with [facility] [...] at home and decided to get looked at.EQUITY STRUCTURER hours were reduced just as he is getting weaker and his walking is unsafe.Needs PT - asking PCP.Due to not enough EQUITY STRUCTURER presence, has fallen a number of times recently, and hurt his ribs badly.Also needs medication reminders. Reduced EQUITY STRUCTURER hours because they were sending meals on wheels. EQUITY STRUCTURER has been with him since August and [...] to seek medical assistance or to call [facility].03/08/24 Patient reports fever, chills and congestion [...] modifier 95)Continue to see PCP. Follow-up with [facility] as needed for any acute or [...] joint pain increased Please remember to call [facility] to see PCP. Follow-up with [facility] as needed for any acute or disease education needs that may arise 30/09.what should be done when the member calls: see each individual diagnosis for contingency plan 2024-04-07 05:25:01 Estab. patient 10-29 min; 1 minor problem; add add modifier 95 for video, modifier 93 for phoneContinue to see PCP. Follow-up with [facility] as needed for any acute or disease education needs that may arise 30/09.Add Contingency PlanStableCymbaltaContinue taking medications, practice core ROM exercises as tolerable, contact us if develop increase in low back pain without reliefER visit on 03/19/24 at [facility] for [facility]. He reports feeling [...] remember to call CBPSY[facility] CONTINGENCY PLANLast updated: 03/08/2024[facility] to call for the following symptoms: Agitation/ [...] for phoneContinue to see PCP. Follow-up with [facility] as [...] visit on 06/03/24 for severe abdominal pain. Ninoska reports the patient's symptom started in the [...] with HLDA1C 11/7% 5Continue to f/u w/ drywall finishing foreman q3-6 months, monitor BG levels, discussed dietary and exercise interventions, contact us if develop hyperglycemia s/s06/03/24: EQUITY STRUCTURER/Ninoska Rojas reports that she recently restarted care [...] was hospitalized on 05/21-05/24 post fall at [facility].StableAlbuterol, FloventMonitor O2, take medications as Rx, continue f/u care w/ PCP [id number], contact us if you develop respiratory /16/2024 patient states he feels well at the moment. 06/03/24: Denies dyspnea 2024-06-09 07:50:22 Televideo 10-29min; 1 minor problem; add add modifier 95 for video, modifier 93 for phoneContinue to see PCP. Follow-up with Don as needed for any acute or disease education needs that may arise 30/09.Type 2 diabetes mellitus with HLDA1C 11/% 5Continue to f/u w/ drywall finishing foreman q3-6 months, monitor BG levels, discussed dietary and exercise interventions, contact us if develop hyperglycemia s/s06/03/24: EQUITY STRUCTURER/Ninoska Crystal reports that she recently restarted care [...] callback with continued hyperglycemia.DIABETES CONTINGENCY PLANLast updated: 06/09/2024[facility] to call for the following symptoms: Blood sugar <70??/ Blood sugar >300??/ DeliriumPlanned intervention: Increase short-acting insulin to lispro 2 units/ Encourage adequate water intake/ Limit high-sugar and high-carbohydrate foods/ Go for a walkPlease call if you experience ANDOMINAL PAIN, swelling, constipation, diarrhea, nausea or vomitingPlanned intervention: Prescribe medication as appropriatePSYCH CONTINGENCY PLANLast updated: 03/08/2024[facility] to call for the following symptoms: Agitation/ [...] but in pain and frustrated about reduced EQUITY STRUCTURER hours. Please keep a log and we [...] continued or worsening symptoms.F/U with JILLIAN 06/11/24 2024-06-11 09:57:26 Estab. patient 10-29 min; 1 minor problem; add add modifier 95 for video, modifier 93 for phoneContinue to see PCP. Follow-up with [facility] as needed for any acute or disease education needs that may arise 30/09.DIABETES CONTINGENCY PLANLast updated: 06/09/2024[facility] to call for the following symptoms: Blood sugar <70??/ Blood sugar >300??/ DeliriumPlanned intervention: Increase short-acting insulin to lispro 2 units/ Encourage adequate water intake/ Limit high-sugar and high-carbohydrate foods/ Go for a walkPlease call if you experience ANDOMINAL PAIN, swelling, constipation, diarrhea, nausea or vomitingPlanned intervention: Prescribe medication as appropriatePSYCH CONTINGENCY PLANLast updated: 03/08/2024[facility] to call for the following symptoms: Agitation/ Anxiety/ Insomnia/ Panic attacksPlanned intervention: Hydroxyzine (Vistaril) 25mg PO q6h PRN anxiety/ Encourage member to journal feelings/ Remind member of personal goal:/ Encourage use of home medication:/ Increase dose of current medication:/ Limit extra stimulationPatient reports that on 02/12/2024 and was discharged the same date.- not admittedPatient reports that he was in the hospital due to having respiratoy infection- thought he had COVID-19, he fell at home and decided to get looked at. Patient was hospitalized on 05/21-05/24 post fall at [facility].06/11/24: Christopher Suarez reports that the patient is currently in the ER [facility]. Patient was send by drywall finishing foreman due to high BP, BS and possible infection. Cg reports that the patient complained of sore throat today. Reports BS yesterday 168 and he was feeling well. Scheduled a follow up for 06/15. Goals Date Goal 2022-02-19 Remember to monitor [...] PCP and Specialist. Health Concerns Date Concern 2024-06-11 Visit completed via audio by telephone. Patient/Guardian agreed to visit via telehealth.Time spent in visit: 2024-06-11 Most recent hospital stay(s) or ER visit(s) and precipitating factors: Currently in the [facility]
--- OUTSIDE RECORDS SUMMARY | 2024-06-11 14:40 | XMS_ITS | Clinical Summary ---
[facility] Address [address] [place] [address] Care Team Providers Care Pre Press Operator Name Role Phone Unavailable Primary Care Provider [...]
--- OUTSIDE RECORDS SUMMARY | 2024-06-11 14:41 | XMS_ITS | Clinical Summary ---
Author Organization [employer] Address [address] [place] [address] Care Team Providers Care Family And Marriage Counsellor Name Role Phone Unavailable Primary Care Provider [...] Most Recently Relevant to Health Maintenance [place] [phone] DENTAL - [facility]
[2024-06-11 15:22] LABS: Appearance Urine Clear; Color Urine Yellow; Glucose Urine UA 100 mg/dL (Negative); Leukocyte Esterase Urine Negative (Negative); Nitrite Urine Negative (Negative); UMIC TRIGGER UACC YES; Urine Blood Negative (Negative); Urine Ketones Negative (Negative); Urine Protein 30 (1+) mg/dL (Neg-Trace)
[2024-06-11 15:27] LABS: Bacteria Urine None Seen (None Seen); Hyaline Casts Urine 0-2 /LPF (0-2); RBC Urine 0-2 /HPF (0-2); Squamous Epithelial Cell Urine 0-2 /HPF (0-2); WBC Urine 0-5 /HPF (0-5)
[2024-06-11 16:24] VITALS: BP 146/50; PULSE 67; RESP 18; O2SAT 98
[2024-06-11 17:00] LABS: IDNOW Serial# 55D5AD1C; Strep A Nucleic Acid Positive (Negative)
[2024-06-11 17:15] LABS: Troponin-I High Sensitivity 31.1 ng/L (<3.5-35.0)
[2024-06-11 18:25] VITALS: BP 146/50; PULSE 67; RESP 18; TEMP 36.6; O2SAT 98
== END 2024-06-11 18:34 | disposition home or self-care (01) ==
PROVIDERS: Emergency Provider Emergency Medicine Emergency Medical Services; PCP Internal Medicine
DX: J02.0 Streptococcal pharyngitis (principal); R53.1 Weakness; R42 Dizziness and giddiness; R07.89 Other chest pain; I44.0 Atrioventricular block, first degree; Z87.891 Personal history of nicotine dependence; Z03.818 Encounter for observation for suspected exposure to other biological agents ruled out; Z79.899 Other long term (current) drug therapy
CPT/HCPCS: 0241U; 36415; 71045; 80048; 80076; 81001; 82947; 83690; 84484; 85025; 87651; 93005; 96360; 99212; 99284

== ENCOUNTER → 2024-06-11 12:01 | Outpatient (BNV) | payer OTHER, SELFPAY | PROVIDERS: Emergency Provider Emergency Medicine Emergency Medical Services; PCP Internal Medicine; Visit Provider Internal Medicine | DX: I44.0 Atrioventricular block, first degree (principal); I49.3 Ventricular premature depolarization | CPT/HCPCS: 93010 ==

== ENCOUNTER → 2024-06-11 12:01 | Outpatient (BNV) | payer OTHER, SELFPAY | PROVIDERS: Emergency Provider Emergency Medicine Emergency Medical Services; Visit Provider Radiology Diagnostic Radiology | DX: J98.4 Other disorders of lung (principal) | CPT/HCPCS: 71045 ==

== ENCOUNTER 2024-06-13 06:01 | Emergency (ER) | payer OTHER, SELFPAY ==
[2024-06-13 06:10] VITALS: BP 138/88; PULSE 74; O2SAT 97
[2024-06-13 06:13] VITALS: BP 144/41; PULSE 71; RESP 19; TEMP 36.6; O2SAT 95; BMI 38.1
--- OUTSIDE RECORDS SUMMARY | 2024-06-13 07:09 | XMS_ITS | Clinical Summary ---
Author Organization [facility] Address [address] [place] [address] Care Team Providers Care Gear Design Engineer Name Role Phone Unavailable Primary Care Provider [...]
--- OUTSIDE RECORDS SUMMARY | 2024-06-13 07:09 | XMS_ITS | Clinical Summary ---
Author Organization [employer] Address [address] [place] [address] Care Team Providers Care Exchange Clerk Name Role Phone Unavailable Primary Care Provider [...] Most Recently Relevant to Health Maintenance [place] [phone] DENTAL - [facility]
--- OUTSIDE RECORDS SUMMARY | 2024-06-13 07:09 | XMS_ITS ---
Author Name Tammy Vega NP Address [address] [place] [address] Phone [phone] [facility] [facility] Care Team Providers Care Dietetics Teacher Name Role Phone Cale Vegakiara Unavailable [phone] [facility] Unavailable Unavailable Unavailable Unavailable Unavailable Unavailable Unavailable [facility] Unavailable HungJerry carrillo Unavailable [phone] Reason for Referral Not Available Allergies, adverse [...] No Data Available B-D PEN NDL SHRT [id number](07/23) ANNAMARIE USE TO INJECT 3 TIMES DAILY 2021-06-05 2023-12-12 Clotrimazole-Betamethasone 1-0.05 % Crm APPLY TOPICALLY TO THE AFFECTED AREA TWICE DAILY FOR 15 DAYS 2021-11-26 No Data Available Lisinopril 10 mg Tab TAKE 1 TABLET BY [facility] DAILY 2022-02-05 2024-06-01 Trulicity 1.5 mg/0.5ML Solution [...] 2022-03-12 No Data Available OneTouch Delica Plus [id number] Miscellaneous TEST BLOOD SUGAR THREE TIMES DAILY [...] 40 mg Tab TAKE 1 TABLET BY [facility] DAILY 2022-07-12 No Data Available Polyethylene Glycol 3350 17 GM Packet Mix 1 packet in 8 ounces of water, juice, coffee or tea and drink once a day 2022-07-14 No Data Available Vitamin D3 50 mcg (2,000 unit) capsule TAKE 1 CAPSULE BY MOUTH DAILY 2021-09-07 No Data Available predniSONE 20 mg Tab TAKE 2 TABLETS BY [facility] DAILY x 3days 2022-10-11 2022-10-18 Aspirin [...] Active 2022-02-19 N/A Other problems related to [facility] facilities and other health care Active [...] (do not use for phone, instead use 13799-64) [facility] ([place]2022 Morbid (severe) obesity due to excess caloriesBody mass index (BMI) 40.0-44.9, adultChronic obstructive pulmonary disease, unspecifiedEnlarged prostate without lower urinary tract symptomsType 2 diabetes mellitus with diabetic polyneuropathyEssential (primary) hypertensionHyperlipidemia, unspecifiedMajor depressive disorder, single episode, in full remissionLow back pain, unspecifiedAthscl heart disease of [place] coronary artery w/o ang pctrsType 2 diabetes mellitus with other specified complicationLong term (current) use of insulin New patient,40-59min; chronic exacerbation, 2 stable chronic or 1 acute illness add add modifier 95 for video (do not use for phone, instead use 50701-37) [facility], [place] New patient,40-59min; chronic exacerbation, 2 stable chronic or 1 acute illness add add modifier 95 for video (do not use for phone, instead use 46877-88) [facility] [place] New patient,40-59min; chronic exacerbation, 2 stable chronic or 1 acute illness add add modifier 95 for video (do not use for phone, instead use 24372-84) [facility] New patient,40-59min; chronic exacerbation, 2 stable chronic or 1 acute illness add add modifier 95 for video (do not use for phone, instead use 44468-31) [facility] [place] New patient,40-59min; chronic exacerbation, 2 stable chronic or 1 acute illness add add modifier 95 for video (do not use for phone, instead use 32784-60) [facility] 02[place]20[place] RN, CN or CP time with patient by phone; use with 1111F, BP, A1c or other CPTII codes [facility] 10[place]14/2022 Encounter for other specifie d aftercare RN, CN or CP time with patient by phone; use with 1111F, BP, A1c or other CPTII codes [facility] 10[place]14/2022 Estab. patient 30-39min; chronic exacerbation, 2 stable chronic or 1 acute illness add add modifier 95 for video, (do not use for phone, instead use 33994-51) [facility] [place]18[place]20[place] Type 2 diabetes mellitus wit h [...] (do not use for phone, instead use 33149-65) [facility] Estab. patient 30-39min; chronic exacerbation, 2 stable chronic or 1 acute illness add add modifier 95 for video, (do not use for phone, instead use 81800-37) [facility]18[place] Estab. patient 30-39min; chronic exacerbation, 2 stable chronic or 1 acute illness add add modifier 95 for video, (do not use for phone, instead use 92282-68) [facility]18[place] Estab. patient 30-39min; chronic exacerbation, 2 stable chronic or 1 acute illness add add modifier 95 for video, (do not use for phone, instead use 86285-03) [facility], ([place] 10[place]18/20[place] Estab. patient 30-39min; chronic exacerbation, 2 stable chronic or 1 acute illness add add modifier 95 for video, (do not use for phone, instead use 47129-37) [facility]18[place] Estab. patient 30-39min; chronic exacerbation, 2 stable chronic or 1 acute illness add add modifier 95 for video, (do not use for phone, instead use 26754-92) [facility] Estab. patient 30-39min; chronic exacerbation, 2 stable chronic or 1 acute illness add add modifier 95 for video, (do not use for phone, instead use 67747-42) [facility]18[place] Estab. patient 30-39min; chronic exacerbation, 2 stable chronic or 1 acute illness add add modifier 95 for video, (do not use for phone, instead use 97017-88) [facility] 10[place]18[place] Estab. patient 30-39min; chronic exacerbation, 2 stable chronic or 1 acute illness add add modifier 95 for video, (do not use for phone, instead use 03751-24) [facility] 10[place]18[place]2022 Unlisted special service; to be used for medical record reviews and reporting CPTII codes (1111F, etc) [facility]/2022 Other specified health statu s Unlisted special service; to be used for medical record reviews and reporting CPTII codes (1111F, etc) [facility]20[place] Unlisted special service; to be used for medical record reviews and reporting CPTII codes (1111F, etc) [facility]/2022 No Data Available [facility] 02[place]2023 Type 2 diabetes mellitus wit h other specified complicationEmphysema, unspecifiedEnlarged prostate without lower urinary tract symptomsType 2 diabetes mellitus with diabetic polyneuropathyEssential (primary) hypertensionHyperlipidemia, unspecifiedMajor depressive disorder, single episode, in full remissionLow back pain, unspecifiedAthscl heart disease of [place] coronary artery w/o ang pctrsMorbid (severe) obesity due to excess caloriesBody mass index (BMI) 40.0-44.9, adult No Data Available [facility] 02[place]/2023 No Data Available [facility]20[place] No Data Available [facility]20[place] No Data Available [facility] No Data Available [facility] No Data Available [facility] 04[place]04[place]2023 Type 2 diabetes mellitus wit h [...] initial encounterAnxiety disorder, unspecified No Data Available [facility] No Data Available [facility]20[place] No Data Available [facility]/04[place]20[place] No Data Available [facility]/04[place]20[place] No Data Available [facility]/04/20[place] No Data Available [facility] 04/04/2023 No Data Available [facility] 04[place]04/2023 No Data Available [facility] [place]02[place]2023 Type 2 diabetes mellitus wit h other specified complicationEmphysema, unspecifiedEnlarged prostate without lower urinary tract symptomsType 2 diabetes mellitus with diabetic polyneuropathyEssential (primary) hypertensionHyperlipidemia, unspecifiedLow back pain, unspecifiedAthscl heart disease of [place] coronary artery w/o ang pctrsBody mass index (BMI) 40.0-44.9, adultMorbid (severe) obesity due to excess caloriesOther problems related to medical facilities and other health careUnspecified fall, initial encounterAnxiety disorder, unspecifiedMajor depressive disorder, recurrent, moderate No Data Available [facility] 05[place]02[place]2023 No Data Available [facility] 05[place]02[place]20[place] No Data Available [facility] 05/02[place]2023 No Data Available [facility] 05/02/2023 No Data Available [facility] 05/02/2023 No Data Available [facility] 05/20/2023 Type 2 [...] unspecifiedUnspecified fall, subsequent encounter No Data Available [facility]20[place] No Data Available [facility] No Data Available [facility]20[place] No Data Available [facility]20[place] No Data Available [facility] 05[place]20[place] No Data Available [facility] 07[place]/2023 Type 2 diabetes mellitus wit h other specified complicationHyperlipidemia, unspecifiedLong term (current) use of insulinLong-term (current) use of injectable non-insulin antidiabetic drugsOther problems related to medical facilities and other health care No Data Available [facility] 07[place]/2023 Altered mental status, unspecified No Data Available [facility] 08[place]/2023 Altered mental status, unspecifiedOther problems related to medical facilities and other health care No Data Available [facility] 10[place]02/2023 Type 2 diabetes mellitus wit h other specified complicationHyperlipidemia, unspecifiedOther problems related to medical facilities and other health careAltered mental status, unspecified Estab. patient 30-39min; chronic exacerbation, 2 stable chronic or 1 acute illness add add modifier 95 for video, (do not use for phone, instead use 25620-63) [facility] 12[place]2023 Type 2 diabetes mellitus wit h [...] (do not use for phone, instead use 50496-41) [facility] 12[place]10[place]2023 Estab. patient 30-39min; chronic exacerbation, 2 stable chronic or 1 acute illness add add modifier 95 for video, (do not use for phone, instead use 39213-83) [facility] 12[place]10[place]20[place] Estab. patient 30-39min; chronic exacerbation, 2 stable chronic or 1 acute illness add add modifier 95 for video, (do not use for phone, instead use 00765-27) [facility] 12[place]10[place]2023 Estab. patient 30-39min; chronic exacerbation, 2 stable chronic or 1 acute illness add add modifier 95 for video, (do not use for phone, instead use 62113-63) [facility] 12[place]10[place]2023 Estab. patient 30-39min; chronic exacerbation, 2 stable chronic or 1 acute illness add add modifier 95 for video, (do not use for phone, instead use 20636-56) [facility] 12[place]10[place]2023 Estab. patient 30-39min; chronic exacerbation, 2 stable chronic or 1 acute illness add add modifier 95 for video, (do not use for phone, instead use 31102-80) [facility] 12[place]10[place]2023 Estab. patient 30-39min; chronic exacerbation, 2 stable chronic or 1 acute illness add add modifier 95 for video, (do not use for phone, instead use 06666-22) [facility] 12[place]10[place]2023 Estab. patient 30-39min; chronic exacerbation, 2 stable chronic or 1 acute illness add add modifier 95 for video, (do not use for phone, instead use 56969-59) [facility] 12[place]20[place] Estab. patient 30-39min; chronic exacerbation, 2 stable chronic or 1 acute illness add add modifier 95 for video, (do not use for phone, instead use 05771-60) [facility] [place]20[place] No Data Available [facility] [place]18[place]2023 Major depressive disorder, recurrent, moderateType 2 diabetes mellitus with other specified complicationHyperlipidemia, unspecifiedPolyosteoarthritis, unspecifiedUnsteadiness on feetAnxiety disorder, unspecifiedOther problems related to medical facilities and other health careLow back pain, unspecifiedUnspecified fall, initial encounter No Data Available [facility] [place] 12[place]18[place]20[place] No Data Available [facility] [place]/18[place]20[place] No Data Available [facility] [place]/18[place]20[place] No Data Available [facility] [place]18[place]20[place] No Data Available [facility] [place] Essential (primary) hypertensionType 2 diabetes mellitus with other specified complicationNicotine dependence, unspecified, in remissionHyperlipidemia, unspecifiedOther problems related to medical facilities and other health care No Data Available [facility] [place] No Data Available [facility] [place]20[place] No Data Available [facility] [place] No Data Available [facility] [place] No Data Available [facility] [place] No Data Available [facility] [place] 02/[place]/2024 Other malaiseRepeated fallsPersonal history of other medical treatment No Data Available [facility] [place] 02/[place]/20[place] No Data Available [facility] [place] 02/[place]/20[place] No Data Available [facility] [place] 02[place]/2024 No Data Available [facility] [place] 03/08/2024 Anxiety disorder, unspecifiedAcute upper respiratory infection, unspecifiedOther problems related to medical facilities and other health care No Data Available [facility] [place]20[place] No Data Available [facility] [place] Estab. patient 10-29min; 1 minor problem; add add modifier 95 for video, modifier 93 for phone [facility] [place] 03/12/2024 Acute upper respiratory infection, unspecifiedOther problems related to medical facilities and other health care Estab. patient 10-29min; 1 minor problem; add add modifier 95 for video, modifier 93 for phone [facility] [place] 03/12/20[place] Estab. patient 10-29min; 1 minor problem; add add modifier 95 for video, modifier 93 for [facility], ([place] 04/07/2024 Low back pain, unspecifiedOt her problems related to medical facilities and other health care RN, CN or CP time with patient by phone; use with 1111F, BP, A1c or other CPTII codes [facility], [place] 06[place]/20[place] Encounter for other specifie d aftercare RN, CN or CP time with patient by phone; use with 1111F, BP, A1c or other CPTII codes [facility], [place] 06[place]/20[place] Estab. patient 10-29min; 1 minor problem; add add modifier 95 for video, modifier 93 for phone [facility] [place] 06/04/2024 Other problems related to medical facilities and other health careUnspecified abdominal pain Estab. patient 10-29min; 1 minor problem; add add modifier 95 for video, modifier 93 for phone [facility] ([place] 2024 Type 2 diabetes mellitus wit h other specified complicationHyperlipidemia, unspecifiedEmphysema, unspecifiedUnspecified urinary incontinenceUnspecified fall, subsequent encounterPersonal history of other medical treatment Estab. patient 10-29min; 1 minor problem; add add modifier 95 for video, modifier 93 for [facility] ([place] [facility] Estab. patient 10-29min; 1 minor problem; add add modifier 95 for video, modifier 93 for phone [facility] ([place] 2024 Estab. patient 10-29min; 1 minor problem; add add modifier 95 for video, modifier 93 for phone [facility] [place] 06/09/2024 Type 2 diabetes mellitus wit h other specified complicationOther problems related to medical facilities and other health care Estab. patient 10-29min; 1 minor problem; add add modifier 95 for video, modifier 93 for phone [facility] [place] 06[place]/2024 Acute upper respiratory infection, unspecifiedEssential (primary) hypertensionType 2 diabetes mellitus with diabetic polyneuropathy Estab. patient 10-29min; 1 minor problem; add add modifier 95 for video, modifier 93 for phone [facility] [place] 06/11/2024 Other problems related to [...] tive Time Current Smoking Status Former smoker 6 Sex Male Gender identity Man History of Procedures Procedures Service Procedure code Service date Servicing provider Phone# New patient,40-59min; chronic exacerbation, 2 stable chronic or 1 acute illness add add modifier 95 for video (do not use for phone, instead use [id number]) [id number] 2022-02-19 No Data Available No Data Availa [...] 1111F, BP, A1c or other CPTII codes 87570 2022-10-14 No Data Available No Data Avai lable Medications prescribed in hospital were reviewed and reconciled against what they were taking prior to admission during today's visit. (1111F) 1111F 2022-10-14 No Data Available No Data Availa ble Estab. patient 30-39min; chronic exacerbation, 2 stable chronic or 1 acute illness add add modifier 95 for video, (do not use for phone, instead use 91798-91) 81854 2022-10-18 No Data Available No Data Availa [...] reviews and reporting CPTII codes (1111F, etc) 10363 2022-11-25 No Data Available No Data Availa ble DBP <80 (3078F) 3078F 2022-11-25 No Data Available No Data Available SBP < 130 (3074F) 3074F 2022-11-25 No Data Available No Data Available No Data Available [id number] 2023-02-24 No Data Available No Data Available [...] le No Data Available No Data Available [id number] 2023-04-04 No Data Available No Data Available [...] No Data Avail able No Data Available [id number] 2023-05-20 No Data Available No Data Available [...] le No Data Available No Data Available [id number] 2023-07-08 No Data Available No Data Available No Data Available [id number] 2023-07-31 No Data Available No Data Available No Data Available 2023-08-26 No Data Available No Data Available No Data Available [id number] 2023-10-02 No Data Available No Data Available Estab. patient 30-39min; chronic exacerbation, 2 stable chronic or 1 acute illness add add modifier 95 for video, (do not use for phone, instead use 81049-06) 84790 2023-12-10 No Data Available No Data Availa [...] No Data Avail able No Data Available [id number] 2023-12-18 No Data Available No Data Available [...] Available No Data Available No Data Available [id number] 2024-01-14 No Data Available No Data Available [...] 95 for video, modifier 93 for phone [id number] 2024-03-12 No Data Available No Data Availa ble Medication List Documented (1159F) 1159F 2024-03-12 No Data Available No Data Colette ilable Estab. patient 10-29min; 1 minor problem; add add modifier 95 for video, modifier 93 for phone 2024-04-07 No Data Available No Data Availa ble RN, CN or CP time with patient by phone; use with 1111F, BP, A1c or other CPTII codes 44456 2024-06-01 No Data Available No Data Avai [...] 95 for video, modifier 93 for phone [id number] 2024-06-09 No Data Available No Data Availa ble Estab. patient 10-29min; 1 minor problem; add add modifier 95 for video, modifier 93 for phone [id number] 2024-06-10 No Data Available No Data Availa ble Estab. patient 10-29min; 1 minor problem; add add modifier 95 for video, modifier 93 for phone [id number] 2024-06-11 No Data Available No Data Availa ble Functional Status Functional Category Effective Dates ADLsDressing - Needs assista nceBathing - Needs assistanceToileting - Needs assistanceTransfers - Needs assistanceEating - IndependentiADLsShopping - Needs assistanceMedications - IndependentHousekeeping - Needs assistanceCooking - Needs assistanceFalls in last 6 months - Yes 2022-10-18 [employer] coming in M-F only one h our per day (originally approved for 10 hours) 2023-04-04 uses cane and walker at home to ambulate 2023-12-18 [employer] DEL[employer] is his niece. [employer] 2023-12-18 has meals [...] denies monitoring BGLantus, TrulicityContinue to f/u w/ mule developer q3-6 months, monitor BG levels, discussed dietary and exercise interventions, contact us if develop hyperglycemia s/sxStableAlbuterol, FloventMonitor O2, take medications as Rx, continue f/u care w/ PCP [id number], contact us if you develop respiratory distressStableTamsulosinMonitor urine output, continue taking medication as prescribed, f/u PCP [id number], contact us if develop acute decrease in [...] denies monitoring BGLantus, TrulicityContinue to f/u w/ mule developer q3-6 months, monitor BG levels, discussed dietary and exercise interventions, contact us if develop hyperglycemia s/sxStableAlbuterol, FloventMonitor O2, take medications as Rx, continue f/u care w/ PCP [id number], contact us if you develop respiratory distressStableTamsulosinMonitor urine output, continue taking medication as prescribed, f/u PCP [id number], contact us if develop acute decrease in [...] denies monitoring BGLantus, TrulicityContinue to f/u w/ mule developer q3-6 months, monitor BG levels, discussed dietary and exercise interventions, contact us if develop hyperglycemia s/sxStableAlbuterol, FloventMonitor O2, take medications as Rx, continue f/u care w/ PCP [id number], contact us if you develop respiratory distressStableTamsulosinMonitor urine output, continue taking medication as prescribed, f/u PCP [id number], contact us if develop acute decrease in [...] coping mechanisms and benefits of potential verbal /18/23: feels more calm now that he's home; [...] denies monitoring BGLantus, TrulicityContinue to f/u w/ mule developer q3-6 months, monitor BG levels, discussed dietary and exercise interventions, contact us if develop hyperglycemia s/sxCONTINGENCY PLANMember to call for the following symptoms: Blood sugar <70/ Blood sugar >300/ More thirsty than usual/ Urinating more than usualPlanned intervention:StableAlbuterol, FloventMonitor O2, take medications as Rx, continue f/u care w/ PCP [id number], contact us if you develop respiratory distressStableTamsulosinMonitor urine output, continue taking medication as prescribed, f/u PCP [id number], contact us if develop acute decrease in [...] denies monitoring BGLantus, TrulicityContinue to f/u w/ mule developer q3-6 months, monitor BG levels, discussed dietary and exercise interventions, contact us if develop hyperglycemia s/sxCONTINGENCY PLANMember to call for the following symptoms: Blood sugar <70/ Blood sugar >300/ More thirsty than usual/ Urinating more than usualPlanned intervention:StableAlbuterol, FloventMonitor O2, take medications as Rx, continue f/u care w/ PCP [id number], contact us if you develop respiratory distressStableTamsulosinMonitor urine output, continue taking medication as prescribed, f/u PCP [id number], contact us if develop acute decrease in [...] denies monitoring BGLantus, TrulicityContinue to f/u w/ mule developer q3-6 months, monitor BG levels, discussed dietary and exercise interventions, contact us if develop hyperglycemia s/sxCONTINGENCY PLANMember to call for the following symptoms: Blood sugar <70/ Blood sugar >300/ More thirsty than usual/ Urinating more than usualPlanned intervention: 05/20/23: had episodes of hypoglycemia in STR; have decreased lantus to 60Units per nightStableAlbuterol, FloventMonitor O2, take medications as Rx, continue f/u care w/ PCP [id number], contact us if you develop respiratory distressStableTamsulosinMonitor urine output, continue taking medication as prescribed, f/u PCP [id number], contact us if develop acute decrease in [...] denies monitoring BGLantus, TrulicityContinue to f/u w/ mule developer q3-6 months, monitor BG levels, discussed dietary [...] medication instructions. He has an appt with [facility] on August 07. I reviewed the current [...] he reports that the patient needs more LE[employer]SP[employer] DEL[employer] hours to continue to providing adequate care. I provided [facility] number for follow up. Denies [...] joint pain increased Please [facility] Follow-up with [facility] [...] denies monitoring BGLantus, TrulicityContinue to f/u w/ mule developer q3-6 months, monitor BG levels, discussed dietary [...] reports that the patient recently started with LE[employer]LET [employer]SP[employer]ER [employer] (niece) to help with his care. He was previously non-compliant with his medications and insulin; [employer] Crystal is helping with his medication management [...] he reports that the patient needs more [employer] hours to continue to providing adequate care. I provided [facility] number for follow up. Denies [...] denies monitoring BGLantus, TrulicityContinue to f/u w/ mule developer q3-6 months, monitor BG levels, discussed dietary [...] reports that the patient recently started with [employer] (niece) to help with his care. He was previously non-compliant with his medications and insulin; [employer] Crystal is helping with his medication management due to BS in 300's avg.StableAlbuterol, FloventMonitor O2, take medications as Rx, continue f/u care w/ PCP [id number], contact us if you develop respiratory distressStableTamsulosinMonitor urine output, continue taking medication as prescribed, f/u PCP [id number], contact us if develop acute decrease in [...] but in pain and frustrated about reduced [employer] hours. Please keep a log and we [...] joint pain increased [facility]. [facility] for any acute or [...] PT - asking PCP.Due to not enough [employer] presence, has fallen a number of times recently, and hurt his ribs badly.Also needs medication reminders. Reduced [employer] hours because they were sending meals on wheels. [employer] has been with him since August and [...] (with food)Patient verbalized understanding. Caregiver verbalized understanding.Reduced [employer] hours because they were sending meals on wheels but has not received the meals yet.Also needs medication reminders now that his [employer] is not there as much - at risk for noncompliance.Reduced [employer] hours because they were sending meals on wheels. [employer] has been with him since August and [...] oxybutynin. Will send via sms to his [facility] member to call: If he falls or feels dizzy and is at danger of fallingIf bp is elevated sbp>150; dbp>90 or symptomatic-h/a, dizziness, cp, sob. if BS >300 or BS<90 or symptomatic; i.e., dizzy, off balance , shaky, general weakness. if UTI symptoms arise-urinary frequency, dysuria, low abd pain. if pain in knees increases/ or joint pain increased [facility]. [facility]up with [facility] [...] denies monitoring BGLantus, TrulicityContinue to f/u w/ mule developer q3-6 months, monitor BG levels, discussed dietary [...] reports that the patient recently started with [employer] (niece) to help with his care. He was previously non-compliant with his medications and insulin; [employer] Crystal is helping with his medication management [...] denies monitoring BGLantus, TrulicityContinue to f/u w/ mule developer q3-6 months, monitor BG levels, discussed dietary [...] reports that the patient recently started with [employer] (niece) to help with his care. He was previously non-compliant with his medications and insulin; [employer] Crystal is helping with his medication management due to BS in 300's avg.10: reports his BS have decreased. Now <200 average. Is f/u wit pcp and reports good bs and good BP during visit no records available to review today01/14/2024 patient visited mule developer this week . patient states that his BG is controlled for the most part.StablePt denies monitoring BPLisinopril, MetoprololDiscussed dietary and exercise interventions, f/u w/ PCP q6-12 months, contact us develop emergent HTN s/sx1BP 150/76 today but in pain and frustrated about reduced [employer] hours. Please keep a log and we [...] joint pain increased [facility]. Follow-up with [facility] [...] at home and decided to get looked at.[employer] hours were reduced just as he is getting weaker and his walking is unsafe.Needs PT - asking PCP.Due to not enough [employer] presence, has fallen a number of times recently, and hurt his ribs badly.Also needs medication reminders. Reduced [employer] hours because they were sending meals on wheels. [employer] has been with him since August and [...] to seek medical assistance or to [facility].03/08/24 Patient reports fever, chills and congestion [...] modifier 95)Continue to see PCP. [facility] needed for any acute or [...] joint pain increased Please remember to call [facility] to see PCP. [facility] needed for any acute or [...] reliefER visit on 03/19/24 at [facility] for back pain. He reports feeling [...] remember to call CBPSYCH CONTINGENCY PLANLast updated: 03/08/2024[facility] to call for the following symptoms: [...] with HLDA1C 11/7% 5Continue to f/u w/ mule developer q3-6 months, monitor BG levels, discussed dietary and exercise interventions, contact us if develop hyperglycemia s/s06/03/24: [employer]/Ninoska Rojas reports that she recently restarted care [...] hospitalized on 05/21-05/24 post fall at [facility].StableAlbuterol, FloventMonitor O2, take medications as Rx, continue f/u care w/ PCP [id number], contact us if you develop respiratory yahtommw26/16/2024 patient states he feels well at the moment. 06/03/24: Denies dyspnea 2024-06-09 07:50:22 Televideo 10-29min; 1 minor problem; add add modifier 95 for video, modifier 93 for phoneContinue to see PCP. Follow-up with Don as needed for any acute or disease education needs that may arise 30/09.Type 2 diabetes mellitus with HLDA1C 11/% 5Continue to f/u w/ mule developer q3-6 months, monitor BG levels, discussed dietary and exercise interventions, contact us if develop hyperglycemia s/s06/03/24: [employer]/Ninoska Crystal reports that she recently restarted care [...] callback with continued hyperglycemia.DIABETES CONTINGENCY PLANLast updated: 06/09/2024[facility] to call for the following symptoms: Blood sugar <70??/ Blood sugar >300??/ DeliriumPlanned intervention: Increase short-acting insulin to lispro 2 units/ Encourage adequate water intake/ Limit high-sugar and high-carbohydrate foods/ Go for a walkPlease call if you experience ANDOMINAL PAIN, swelling, constipation, diarrhea, nausea or vomitingPlanned intervention: Prescribe medication as appropriatePSYCH CONTINGENCY PLANLast updated: 03/08/2024[facility] to call for the following symptoms: [...] but in pain and frustrated about reduced [employer] hours. Please keep a log and we [...] for phoneContinue to see PCP. [facility] for any acute or disease education needs that may arise 30/09.DIABETES CONTINGENCY PLANLast updated: 06/09/2024[facility] to call for the following symptoms: Blood sugar <70??/ Blood sugar >300??/ DeliriumPlanned intervention: Increase short-acting insulin to lispro 2 units/ Encourage adequate water intake/ Limit high-sugar and high-carbohydrate foods/ Go for a walkPlease call if you experience ANDOMINAL PAIN, swelling, constipation, diarrhea, nausea or vomitingPlanned intervention: Prescribe medication as appropriatePSYCH CONTINGENCY PLANLast updated: 03/08/2024[facility] to call for the following symptoms: [...] hospitalized on 05/21-05/24 post fall at [facility].06/11/24: Christopher Suarez reports that the patient is currently in the ER [facility]. Patient was send by mule developer due to high BP, BS and possible [...] and precipitating factors: Currently in the [facility]
--- NOTE | 2024-06-13 07:13 | ED_ITS ---
HPI - Abdominal Pain General Chief Complaint: Abdominal Pain Stated Complaint: constipation Time Seen by Provider: 06/13/24 07:12 Source: patient, EMS and planogrammer Mode of arrival: EMS Limitations: no limitations History of Present Illness ED Provider: DR. Osuna HPI narrative: 69-year-old male past medical history CAD, obesity, JAIME, HTN, HLD, BPH, DM. Presented with complaint of abdominal pain on unable to have bowel movement since Friday, no nausea, no vomiting, no fever, no chills, patient is a vague historian and somewhat aggressive toward the staff using offending language. P atient is expressing that he is uncomfortable and experiencing pain in the abdomen and rectum. Patient was seen for similar presentation in the past. Related Data Home Medications ?Medication ?Instructions ?Recorded ?Confirmed polyethylene glycol 3350 17 17 g PO DAILY PRN Constipation 10/09/22 06/11/24 gram/dose oral powder (Miralax) blood-glucose meter (Advanced ICU CareTouch #1 ea 11/27/22 06/11/24 Ultra2 Meter) Monthly Medication Organizer 10/03/23 06/11/24 (Med-Box) insulin lispro 100 unit/mL 2 - 12 unit subcut .TIDAC 06/11/24 06/11/24 subcutaneous pen (Humalog KwikPen (U-100) Insulin) Previous Rx's ?Medication ?Instructions ?Recorded SHOWER CHAIR #1 ea 10/05/20 SHOWER CHAIR #1 ea 01/10/21 fluticasone propionate 50 1 spray intranasal DAILY #16 grams 03/16/21 mcg/actuation nasal spray,suspension insulin syr/ndl U100 half gareth 0.5 #100 ea 05/14/21 mL 30 gauge x 5/16 pen needle, diabetic 31 gauge x #100 ea 03/12/22 5/16 (Lite Touch Insulin Pen [place]) lancets 33 gauge (OneTouch Delica #100 ea 03/13/22 Lancets) dicyclomine 20 mg tablet 20 mg PO QID PRN abdominal pain 07/05/22 #20 tabs ondansetron HCl 4 mg tablet 4 mg PO Q6H PRN nausea and 07/06/22 vomiting #14 tabs metoclopramide HCl 10 mg tablet 10 mg PO AC PRN nausea and 11/12/22 (Reglan) vomiting #20 tabs blood sugar diagnostic 1 strip miscellaneous TID #100 11/27/22 strips blood sugar diagnostic (OneTouch #100 ea 01/13/23 Ultra Test strips) pen needle, diabetic 29 gauge x #100 ea 04/02/23 1/2 (BD Ultra-Fine Original Pen Needle) WALKER #1 ea 04/09/23 gabapentin 400 mg capsule 400 mg PO TID #270 caps 06/11/23 walker #1 ea 06/15/23 cyanocobalamin (vitamin B-12) 1,000 mcg PO DAILY 90 days #90 tabs 10/03/23 1,000 mcg tablet monthly medication organizer (med #1 ea 10/06/23 box) Semi-Electric Hospital Bed #1 ea 10/07/23 blood-glucose sensor (FreeStyle #2 ea 10/21/23 Iwona 3 Sensor device) blood-glucose,lithographic plate maker,cont #1 ea 10/21/23 (FreeStyle [place] 3 [place]) phenazopyridine 200 mg tablet 200 mg PO TID 2 days #6 tabs 11/04/23 (Pyridium) cholecalciferol (vitamin D3) 50 50 mcg PO DAILY #90 caps 11/19/23 mcg (2,000 unit) capsule (Vitamin D3) Active Mal guard pads 6 x 11 #208 ea 11/21/23 Cleansing wipes #100 ea 11/21/23 Disposable 30x30 polymer pads #90 ea 11/21/23 heavy floweds Powder free synthetic exam gloves #100 ea 11/21/23 ondansetron 4 mg disintegrating 4 mg PO Q8H PRN nausea and 11/21/23 tablet vomiting #20 tabs metaxalone 800 mg tablet 800 mg PO BEDTIME #10 tabs 12/25/23 glucose 4 gram chewable tablet 16 g (4 x 4 gram) PO Q15M #10 tabs 01/22/24 docusate sodium 100 mg capsule 100 mg PO BID PRN constipation 30 01/28/24 days #60 caps hydroxyzine HCl 25 mg tablet 25 mg PO Q6H PRN anxiety 30 days 02/27/24 #120 tabs lorazepam 1 mg tablet (Ativan) 1 mg PO BEDTIME PRN anxiety/sleep 03/03/24 #10 tabs omeprazole 40 mg capsule,delayed 40 mg PO DAILY #30 caps 04/01/24 release pen needle, diabetic 32 gauge x #1,200 ea 04/08/24 (BD Ultra-Fine Brittany Pen Needle) aspirin 81 mg tablet,delayed 81 mg PO DAILY #90 tabs 04/23/24 release atorvastatin 80 mg tablet 80 mg PO DAILY 90 days #90 tabs 04/23/24 lisinopril 10 mg tablet 10 mg PO DAILY 90 days #90 tabs 04/23/24 metoprolol tartrate 50 mg tablet 50 mg PO BID #180 tabs 04/23/24 naproxen 500 mg tablet 500 mg PO BID PRN pain #60 tabs 04/23/24 oxybutynin chloride 10 mg 10 mg PO DAILY #90 tabs 04/23/24 tablet,extended release 24 hr paroxetine HCl 40 mg tablet 40 mg PO DAILY #90 tabs 04/23/24 tamsulosin 0.4 mg capsule (Flomax) 0.4 mg PO BEDTIME #90 caps 04/23/24 metformin 500 mg tablet,extended 1,500 mg (3 x 500 mg) PO DAILY 90 04/29/24 release 24 hr days #270 tabs lidocaine 5 % topical patch 1 patch topical DAILY #30 ea 05/20/24 albuterol sulfate 90 mcg/actuation 2 puff PO Q4-6H PRN for wheezing 05/24/24 aerosol inhaler #8.5 grams dicyclomine 20 mg tablet 20 mg PO TID PRN Abdominal 06/04/24 Discomfort #20 tabs ondansetron 4 mg disintegrating 4 mg PO Q6-8H PRN nausea and 06/04/24 tablet vomiting #7 tabs insulin glargine U-300 conc 300 120 unit (0.4 mL) subcut BEDTIME 06/11/24 unit/mL (3 mL) subcutaneous pen #18 mL (Toujeo Max U-300 SoloStar) penicillin V potassium 500 mg 500 mg PO TID #30 tabs 06/11/24 tablet polyethylene glycol 3350 17 17 g PO DAILY #119 grams 06/13/24 gram/dose oral powder (Miralax) Allergies Allergy/AdvReac Type Severity Reaction Status Date / Time hydromorphone [Dilaudid] AdvReac Unknown confusion Verified 06/13/24 06:15 From DILAUDID AdvReac Severe CONFUSION/H Uncoded 06/11/24 11:48 ALLUCIATION S From PERCOCET AdvReac Intermediate AGITATION Uncoded 06/11/24 11:48 Review of Systems Review of Systems All other systems are reviewed and are negative Constitutional: Reports as per HPI and Reports no additional constitutional complaints Eyes: Reports as per HPI and Reports no additional eye complaints Reports system reviewed and no additional complaints, except as documented Cardiovascular: Reports as per HPI and Reports no additional cardiovascular complaints Respiratory: Reports as per HPI and Reports no additional respiratory complaints Gastrointestinal: Reports as per HPI and Reports no additional gastrointestinal complaints Genitourinary: Reports no additional female genitourinary complaints Musculoskeletal: Reports no additional musculoskeletal complaints Skin/Breast: Reports system reviewed and no additional complaints, except as docu Psychiatric: Reports no additional psychiatric complaints Endocrine: Reports no additional endocrine complaints Hematologic/Lymphatic: Reports no additional hematologic/lymphatic complaints Allergic/Immunologic: Reports no additional allergic/immunologic complaints Reports system reviewed and no additional complaints, except as documented and Reports Abnormal speech present [facility] Past Medical History Medical History Decreased oral intake Sore throat Weakness At risk for elder neglect Anxiety Type 2 diabetes mellitus with neurologic complication Gastritis and duodenitis Vitamin B12 deficiency Hyperkalemia Intertrigo Major depressive disorder, recurrent Benign prostatic hyperplasia with urinary frequency Constipation Obstructive sleep apnea Vitamin D deficiency Diabetic polyneuropathy Diabetes mellitus Obesity (BMI 30-39.9) Benign essential hypertension Pure hypercholesterolemia Coronary artery disease Surgical History Hx of cataract extraction (~2011) History of quadruple bypass (~2005) Hx of cystoscopy History of prostate surgery (~12/04/10) Hx of cholecystectomy (~2007) Family History Family History Father Lung cancer Mother Diabetes Hypertension Stomach cancer Social History Social History Household Members: None Housing: Apartment Do you presently have visiting nurse or other home services: No Alcohol intake: never Patient Tobacco Use Status: Former Tobacco user e-Cigarette/Vaping Use: Never Used Second Hand Smoke Exposure: No Advance Directives: Yes Advance Directives on File: Yes Advance Directives Date on File: 07/24/23 service: No Current occupational status: disabled Cognitive needs: Yes (cane) Hearing needs: No Vision needs: Yes Physical Exam ED Vital Signs: Vital Signs - 24 hr 06/13/24 06:13 06/13/24 08:10 Temperature 97.9 F 97.9 F Pulse Rate 71 71 Respiratory Rate 19 19 Blood Pressure 144/41 H 144/41 H Pulse Oximetry 95 95 Oxygen Delivery Method Room Air Room Air BMI result Body Mass Index 38.1 Vital signs have been reviewed and appear to be correct. Blood pressure elevated. Heart rate normal. Respiratory rate normal. Temperature normal. Oxygen saturation normal. Appearance: Alert. Oriented X3. No acute distress. Head: Normal external exam. Normocephalic. Atraumatic. No Araujo signs noted. No raccoon eyes noted Eyes: PERRLA. EOMI. Conjunctiva and sclera normal. Eyelids normal. ENT: TM's Normal. Pharynx normal. Uvula midline. Moist mucous membranes. No trismus noted. No drooling noted. No muffled voice noted. Neck: Normal inspection. Neck supple. FROM. No adenopathy. Thyroid Normal. No meningeal signs. No neck mass noted. CVS: Normal heart rate and rhythm. Heart sound normal. No murmurs noted. Pulses normal throughout. Respiratory: No respiratory distress. Painless inspiration. Breath sounds normal. No wheezes/rales/rhonchi noted. Chest nontender. No accessory muscle usage noted or decreased air movement noted. Abdomen: Soft and nontender. Bowel sounds normal in all 4 quadrants. No distention noted. No organomegaly noted. No visible injury noted. Rectal exam: Hard stool in the vault, s/p disimpaction of the rectum Back: No CVA tenderness. Full range of motion noted. Skin: Skin warm and dry. Normal skin color. Normal skin turgor. No rashes/lesions/lacerations noted. Extremities: No lower extremity edema. Extremities exhibit normal range of motion. Extremities nontender. Neuro: Oriented X 3. Cranial nerve exam: II-XII are grossly intact No motor deficit. No sensory deficit. Reflexes normal. Course Reevaluation(s) Reevaluation #1: Patient has a successful bowel movement in the emergency department after rectal disimpaction, patient feels better. Repeat abdominal exam shows no tenderness, no rebound tenderness, no guarding. Time: 08:01 Medical Decision Making Differential Diagnosis Differential Diagnoses: The differential diagnosis associated with the presentation includes (Constipation, colitis, diverticulitis, small-bowel obstruction.) Admission/Observation Consideration of admission/observation: Escalation of care including admission/observation considered Discharge Plan Discharge Clinical Impression: Constipation Patient Disposition: Home, Self-Care Instructions: Constipation (ED) Prescriptions: New polyethylene glycol 3350 [Miralax] 17 gram/dose powder 17 g PO DAILY Qty: 119 0RF No Action fluticasone propionate 50 mcg/actuation spray,suspension 1 spray intranasal DAILY Qty: 16 2RF (DME) pen needle, diabetic [Lite Touch Insulin Pen [place]] 31 gauge x 5/16 needle See Rx Instructions .Route Qty: 100 12RF Rx Instructions: Use 3 times daily (DME) lancets [OneTouch Delica Lancets] 33 gauge misc See Rx Instructions .Route Qty: 100 12RF Rx Instructions: As directed 3 times a day metoclopramide HCl [Reglan] 10 mg tablet 10 mg PO AC PRN (Reason: nausea and vomiting) Qty: 20 0RF OneTouch Ultra Blue Test Strip Strip 1 strip miscellaneous TID Qty: 100 3RF (DME) blood-glucose meter [OneTouch Ultra2 Meter] Misc See Rx Instructions .ROUTE TID Qty: 1 Rx Instructions: test 3 times per day (DME) OneTouch Ultra Test Strip See Rx Instructions .Route Qty: 100 8RF Rx Instructions: test 3 times per day (DME) pen needle, diabetic [BD Ultra-Fine Orig Pen Needle] 29 gauge x 1/2 needle See Rx Instructions .Route Qty: 100 12RF Rx Instructions: 3 times daily (DME) WALKER See Rx Instructions .Route .MEDSUPPLY Qty: 1 0RF Rx Instructions: As directed (DME) Monthly Medication Organizer (Med-Box) 0 .Route .MEDSUPPLY (DME) monthly medication organizer (med box) See Rx Instructions .Route .MEDSUPPLY Qty: 1 0RF Rx Instructions: monthly medication organizer box; (DME) Semi-Electric Hospital Bed See Rx Instructions .Route .MEDSUPPLY Qty: 1 0RF Rx Instructions: As directed cholecalciferol (vitamin D3) [Vitamin D3] 50 mcg (2,000 unit) capsule 50 mcg PO DAILY Qty: 90 3RF (DME) Disposable 30x30 polymer pads heavy floweds See Rx Instructions .Route .MEDSUPPLY Qty: 90 11RF Rx Instructions: As directed (DME) Active Mal guard pads 6 x 11 See Rx Instructions .Route .MEDSUPPLY Qty: 208 0RF Rx Instructions: As directed (DME) Cleansing wipes See Rx Instructions .Route .MEDSUPPLY Qty: 100 11RF Rx Instructions: As directed (DME) Powder free synthetic exam gloves small See Rx Instructions .Route .MEDSUPPLY Qty: 100 11RF Rx Instructions: As directed glucose 4 gram tablet,chewable 16 g PO Q15M Qty: 10 5RF Rx Instructions: Chew 4 tablets as needed for low blood sugar (less than 70 mg/dL) every 15 minutes until symptoms improve docusate sodium 100 mg capsule 100 mg PO BID PRN (Reason: constipation) 30 Days Qty: 60 3RF hydroxyzine HCl 25 mg tablet 25 mg PO Q6H PRN (Reason: anxiety) 30 Days Qty: 120 3RF omeprazole 40 mg capsule,delayed release(DR/EC) 40 mg PO DAILY Qty: 30 3RF (DME) pen needle, diabetic [BD Ultra-Fine Brittany Pen Needle] 32 gauge x 5/32 needle See Rx Instructions .Route Qty: 1200 11RF Rx Instructions: test 3 times daily aspirin 81 mg tablet,delayed release (DR/EC) 81 mg PO DAILY Qty: 90 0RF lisinopril 10 mg tablet 10 mg PO DAILY 90 Days Qty: 90 1RF metoprolol tartrate 50 mg tablet 50 mg PO BID Qty: 180 1RF naproxen 500 mg tablet 500 mg PO BID PRN (Reason: pain) Qty: 60 0RF metformin 500 mg tablet extended release 24 hr 1,500 mg PO DAILY 90 Days Qty: 270 0RF lidocaine 5 % adhesive patch,medicated 1 patch topical DAILY Qty: 30 0RF Rx Instructions: leave on most painful area for up to 12 hrs albuterol sulfate 90 mcg/actuation HFA aerosol inhaler 2 puff PO Q4-6H PRN (Reason: for wheezing) Qty: 8.5 2RF dicyclomine 20 mg tablet 20 mg PO QID PRN (Reason: abdominal pain) Qty: 20 0RF ondansetron HCl 4 mg tablet 4 mg PO Q6H PRN (Reason: nausea and vomiting) Qty: 14 0RF polyethylene glycol 3350 [Miralax] 17 gram/dose powder 17 g PO DAILY PRN (Reason: Constipation) phenazopyridine [Pyridium] 200 mg tablet 200 mg PO TID 2 Days Qty: 6 0RF ondansetron 4 mg tablet,disintegrating 4 mg PO Q8H PRN (Reason: nausea and vomiting) Qty: 20 0RF penicillin V potassium 500 mg tablet 500 mg PO TID Qty: 30 0RF lorazepam [Ativan] 1 mg tablet 1 mg PO BEDTIME PRN (Reason: anxiety/sleep) Qty: 10 0RF dicyclomine 20 mg tablet 20 mg PO TID PRN (Reason: Abdominal Discomfort) Qty: 20 0RF ondansetron 4 mg tablet,disintegrating 4 mg PO Q6-8H PRN (Reason: nausea and vomiting) Qty: 7 0RF ([facility] [place]) SHOWER CHAIR See Rx Instructions .Route .MEDSUPPLY Qty: 1 0RF Rx Instructions: As directed ([facility] [place]) SHOWER CHAIR See Rx Instructions .Route .MEDSUPPLY Qty: 1 0RF Rx Instructions: As directed ([facility] [place]) insulin syr/ndl U100 half gareth 0.5 mL 30 gauge x 5/16 syringe See Rx Instructions .Route Qty: 100 12RF Rx Instructions: Use 4 times daily gabapentin 400 mg capsule 400 mg PO TID Qty: 270 1RF (DME) walker Misc See Rx Instructions .Route Qty: 1 0RF Rx Instructions: As directed cyanocobalamin (vitamin B-12) 1,000 mcg tablet 1,000 mcg PO DAILY 90 Days Qty: 90 3RF insulin glargine U-300 conc [Toujeo Max U-300 SoloStar] 300 unit/mL (3 mL) insulin pen 120 unit subcut BEDTIME Qty: 18 3RF insulin lispro [Humalog KwikPen Insulin] 100 unit/mL insulin pen 2 - 12 unit subcut .TIDAC ([facility] [place]) FreeStyle Iwona 3 Sensor Device See Rx Instructions .ROUTE .MEDSUPPLY Qty: 2 11RF Rx Instructions: As directed ([facility] [place]) FreeStyle Iwona 3 [place] Misc See Rx Instructions .ROUTE .MEDSUPPLY Qty: 1 0RF Rx Instructions: as directed metaxalone 800 mg tablet 800 mg PO BEDTIME Qty: 10 0RF atorvastatin 80 mg tablet 80 mg PO DAILY 90 Days Qty: 90 1RF oxybutynin chloride 10 mg tablet extended release 24hr 10 mg PO DAILY Qty: 90 0RF tamsulosin [Flomax] 0.4 mg capsule 0.4 mg PO BEDTIME Qty: 90 2RF paroxetine HCl 40 mg tablet 40 mg PO DAILY Qty: 90 0RF Interventions: ED Discharge Assessment Last Done: 06/13/24 08:10 Discharge Date/Time: 06/13/24 08:11 Print Language: [place]
[2024-06-13 08:10] VITALS: BP 144/41; PULSE 71; RESP 19; TEMP 36.6; O2SAT 95
== END 2024-06-13 08:11 | disposition home or self-care (01) ==
PROVIDERS: Emergency Provider Emergency Medicine
DX: K59.00 Constipation, unspecified (principal); R10.9 Unspecified abdominal pain; I10 Essential (primary) hypertension; E78.00 Pure hypercholesterolemia, unspecified; Z79.899 Other long term (current) drug therapy
CPT/HCPCS: 99283

== ENCOUNTER → 2024-07-12 15:16 | Outpatient (BNVA) | payer OTHER, SELFPAY | DX: Z13.89 Encounter for screening for other disorder (principal) ==

== ENCOUNTER 2024-07-23 10:45 | Outpatient (AMB) | payer OTHER, SELFPAY ==
--- NOTE | 2024-07-23 10:53 | MHC.OFFVIS ---
Vital Signs 07/23/24 10:58 Height 5 ft 4 in Weight 225 lb 1.471 oz BMI 38.6 BP 134/64 Blood Pressure Location Rt brachial Position Sitting Pulse 67 Pulse Source Pulse Oximeter Pulse Oximetry (%) 97 Oxygen Delivery Method Room Air Intake Visit Reasons: T2DM Intake Note: Patient present today to follow up on Type 2 Diabetes Mellitus. Last Diabetic Eye exam: 11/14/2023 Last Podiatry Visit: Does not see a Pizza Baker Random Glucose: 241 mg/dl HgA1C: 9.0% 07/23/2024 Senior Program Planner Required: Yes Senior Program Planner Language: Customer Field Representative Services: Senior Program Planner Offered & Declined Accompanied by: Niece Allergies hydromorphone [Dilaudid] Adverse Reaction (Unknown, Verified 07/23/24 10:59) confusion From DILAUDID Adverse Reaction (Severe, Uncoded 07/23/24 10:59) CONFUSION/HALLUCIATIONS From PERCOCET Adverse Reaction (Intermediate, Uncoded 07/23/24 10:59) AGITATION Medication List - Last Reconciled 07/23/24 by SLOAN Pedersen [Active Mal guard pads 6 x 11 As directed] albuterol sulfate 90 mcg/actuation 2 puffs PO Q4-6H PRN aspirin 81 mg PO DAILY atorvastatin 80 mg PO DAILY 90 days blood sugar diagnostic (OneTouch Ultra Test strips) test 3 times per day blood sugar diagnostic 1 strip miscellaneous TID blood-glucose meter (OneTouch Ultra2 Meter) test 3 times per day blood-glucose sensor (FreeStyle Iwona 3 Sensor device) As directed blood-glucose,fuel assembler,cont (FreeStyle [place] 3 [place]) as directed cholecalciferol (vitamin D3) (Vitamin D3) 50 mcg PO DAILY [Cleansing wipes As directed] cyanocobalamin (vitamin B-12) 1,000 mcg PO DAILY 90 days dextrose (TRUEplus Glucose) 15 grams (32 mL) PO Q15M PRN dicyclomine 20 mg PO TID PRN dicyclomine 20 mg PO QID PRN [Disposable 30x30 polymer pads heavy floweds As directed] docusate sodium 100 mg PO BID PRN 30 days fluticasone propionate 50 mcg/actuation 1 spray intranasal DAILY gabapentin 400 mg PO TID glucose (TRUEplus Glucose) 15 grams (4 x 3.75 gram) PO .every 15 minutes PRN insulin glargine U-300 conc (Toujeo Max U-300 SoloStar) 35 units subcut BEDTIME insulin lispro 15 - 20 units (0.15 - 0.2 mL) subcut TID insulin syr/ndl U100 half gareth Use 4 times daily lancets (Leroy Brothersuch Delica Lancets) As directed 3 times a day lidocaine 5% 1 patch topical DAILY lisinopril 10 mg PO DAILY 90 days lorazepam (Ativan) 1 mg PO BEDTIME PRN metaxalone 800 mg PO BEDTIME metformin ER 1,500 mg (3 x 500 mg) PO DAILY 90 days metoclopramide HCl (Reglan) 10 mg PO AC PRN metoprolol tartrate 50 mg PO BID [monthly medication organizer (med box) monthly medication organizer box; ] [Monthly Medication Organizer (Med-Box) ] naproxen 500 mg PO BID PRN omeprazole 40 mg PO DAILY ondansetron 4 mg PO Q6-8H PRN ondansetron HCl 4 mg PO Q6H PRN oxybutynin chloride ER 10 mg PO DAILY paroxetine HCl 40 mg PO DAILY pen needle, diabetic (Lite Touch Insulin Pen [place]) Use 3 times daily pen needle, diabetic (BD Ultra-Fine Original Pen Needle) 3 times daily pen needle, diabetic (BD Ultra-Fine Brittany Pen Needle) test 3 times daily phenazopyridine (Pyridium) 200 mg PO TID 2 days polyethylene glycol 3350 (Miralax) 17 grams PO DAILY [Powder free synthetic exam gloves As directed] [Semi-Electric Hospital Bed As directed] [SHOWER CHAIR As directed] [SHOWER CHAIR As directed] tamsulosin (Flomax) 0.4 mg PO BEDTIME [WALKER As directed] walker As directed HPI Comments Details: This is a 69-year-old male with a past medical history of type 2 diabetes with neuropathy, dementia, JAIME, hyperlipidemia, hypercholesterolemia, CAD, depression and depression presenting for management of type 2 diabetes. Accompanied by his niece, Crystal (phone [phone]). His BUSINESS INTEGRATION MANAGER is Fidelia. He was diagnosed with diabetes in 1981. Hga1c today 9% down form 10.2%. Reviewed Iwona 3 download CGM active 76% Average glucose 253 G KS 9.4% Glucose variability 22.9% Very high 48% High 44% Target range 8% 0% hypoglycemia Patient has hyperglycemia throughout the day and night with occasional improvement in sugars in the late afternoon and early evening. Current regimen: Metformin 2 pills in the morning and 1 pill at in the evening Toujeo 120 units every evening. Humalog sliding scale blood sugar 150-200 take 2 units blood sugar 201-250: take 4 units blood sugar 251-300: take 6 units blood sugar 301-350: take 8 units blood sugar 351-400: take 10 units blood sugar Over 400: take 12 units He is actually taking 20-40 units of Toujeo in the evening because he had hypoglycemia at 50 when they administered 120 units. Lantus dosing prior to switching to Toujeo was difficult to ascertain due to changes in caregivers and noncompliance. He is also only taking metformin 1 pill twice daily. Humalog is being administered per sliding scale. Previous medications: He was previously on Trulicity. Discontinued-history of pancreatitis. He has not taken an SGLT2, but he has a history of UTI and intertrigo. Lantus discontinued to switch to Toujeo. Microvascular complications: Neuropathy, nephropathy (CKD) Macrovascular complications: CAD, TIA in 1996 and 2009 ROS: Constitutional: No fevers, chills, weakness. Eyes: No vision changes or loss of vision Respiratory: Denies cough, wheezing or shortness of breath Cardiovascular: Denies chest pain, chest pressure and palpitations. Gastrointestinal: No anorexia, nausea, vomiting or diarrhea. No abdominal pain : Denies dysuria, urinary frequency and hematuria Endocrine: No cold or heat intolerance. No polyuria or polydipsia Physical exam: Constitutional: In no acute distress but appears fatigued. Throat: Tonsils 2+ and erythematous without exudates. Eyes: Pupils are equal, round and reactive to light. Extraocular muscles intact. Neck: Supple, Full range of motion. No lymphadenopathy. Respiratory: Clear to auscultation. Cardiovascular: S1 S2 regular. No murmurs. Right foot: Warm and well perfused. No clubbing, cyanosis. Trace pedal edema Intact DP pulse. Absent vibratory sensation. He has limited sensation to monofilament in the proximal foot. No open wounds. Left foot: Warm and well perfused. No clubbing, cyanosis. Trace pedal edema. Intact DP pulse. Absent vibratory sensation and absent sensation to monofilament. No open wounds. PFSH Medical History Decreased oral intake Sore throat Weakness At risk for elder neglect Anxiety Type 2 diabetes mellitus with neurologic complication Gastritis and duodenitis Vitamin B12 deficiency Hyperkalemia Intertrigo Major depressive disorder, recurrent Benign prostatic hyperplasia with urinary frequency Constipation Obstructive sleep apnea Vitamin D deficiency Diabetic polyneuropathy Diabetes mellitus Obesity (BMI 30-39.9) Benign essential hypertension Pure hypercholesterolemia Coronary artery disease Surgical History Hx of cataract extraction (~2011) History of quadruple bypass (~2005) Hx of cystoscopy History of prostate surgery (~12/04/10) Hx of cholecystectomy (~2007) Family History Father Lung cancer Mother Diabetes Hypertension Stomach cancer Social History Household Members: None Housing: Apartment Do you presently have visiting nurse or other home services: No Alcohol intake: never Patient Tobacco Use Status: Former Tobacco user e-Cigarette/Vaping Use: Never Used Second Hand Smoke Exposure: No Advance Directives Date on File: 07/24/23 service: No Current occupational status: disabled Cognitive needs: Yes (cane) Hearing needs: No Vision needs: Yes Physical Exam Vital Signs: Last Vital Signs Pulse 67 07/23/24 10:58 BP 134/64 07/23/24 10:58 Pulse Ox 97 07/23/24 10:58 Oxygen Delivery Method Room Air 07/23/24 10:58 BMI result Body Mass Index 38.6 Office Procedures Glucose Monitoring Details Details: See [facility] [address] - Glucose monitoring, continuous-physician I&R Procedure code (CPT) selection complete Results AMB Hemoglobin A1c AMB Hemoglobin A1c 9.0 % Last Edit by DEVORA Loya on 07/23/24 11:18 Results Reviewed Results Reviewed: Laboratory Last Values Glucose (Clinic) 241 mg/dL (60-115) H 07/23/24 11:07 Laboratory Tests 09/09/22 09/09/22 10/04/23 09:40 09:41 09:02 Plt Count Creatinine Estim Creat Clear Calc Hgb A1c (Clinic) AST ALT Cholesterol 146 LDL Cholesterol, Calc 69 HDL Cholesterol 27 TSH 1.77 Urine Creatinine 77.07 Urine Microalbumin 109.0 Microalb/Creat Ratio 141.4 04/23/24 06/03/24 06/11/24 14:55 22:30 12:13 Plt Count 208 Creatinine 1.20 1.21 Estim Creat Clear Calc 59.6 59.8 Hgb A1c (Clinic) 10.2 H AST 26 ALT 19 Cholesterol LDL Cholesterol, Calc HDL Cholesterol TSH Urine Creatinine Urine Microalbumin Microalb/Creat Ratio Assessment & Plan Assessment & Plan (1) Type 2 diabetes mellitus with neurologic complication: Code(s): E11.49 - Type 2 diabetes mellitus with other diabetic neurological complication Category: Medical Qualifiers: Diabetes mellitus complication detail: with polyneuropathy Diabetes mellitus laborer marine terminal insulin use: with mcfp use Qualified Code(s): E11.42 - Type 2 diabetes mellitus with diabetic polyneuropathy; Z79.4 - senior living (current) use of insulin Plan In summary this is a 69-year-old male with uncontrolled type 2 diabetes with micro and macrovascular complications on basal-bolus insulin and metformin with improving glycemic control. Take Metformin 2 pills in the morning and 1 pill at in the evening Adinister Toujeo 35 units every evening. If he has low sugars decrease to 30 units. Humalog sliding scale: blood sugar 150-200 take 2 units blood sugar 201-250: take 4 units blood sugar 251-300: take 6 units blood sugar 301-350: take 8 units blood sugar 351-400: take 10 units blood sugar Over 400: take 12 units If you experience low blood sugar, treat this by eating a chewable fruit candy like skittles or jelly beans (about 8 pieces), 4 ounces (1/2 cup) of fruit juice (not diet), 1 tablespoon of honey or 4 glucose tablets. If your blood sugar is under 55, take double the amount of one of the above. Recheck your blood sugar in 15 minutes. Follow up in 2 weeks for type 2 diabetes. Orders: Orders Lipid Panel Today E11.42 - Type 2 diabetes mellitus with diabetic polyneuropathy, E78.5 - Hyperlipidemia, unspecified, Z79.4 - laborer marine terminal (current) use of insulin Aspartate Amino Transferase Today E11.42 - Type 2 diabetes mellitus with diabetic polyneuropathy, Z79.4 - senior living (current) use of insulin Platelet Count Today E11.42 - Type 2 diabetes mellitus with diabetic polyneuropathy, E11.9 - Type 2 diabetes mellitus without complications, Z79.4 - senior living (current) use of insulin AMB Glucose Monitoring Today E11.9 - Type 2 diabetes mellitus without complications AMB Hemoglobin A1c Today E11.42 - Type 2 diabetes mellitus with diabetic polyneuropathy, Z79.4 - senior living (current) use of insulin Vitamin B12 Today E11.42 - Type 2 diabetes mellitus with diabetic polyneuropathy, Z79.4 - laborer marine terminal (current) use of insulin, Z91.89 - Other specified personal risk factors, not elsewhere classified Alanine Aminotransferase Today E11.42 - Type 2 diabetes mellitus with diabetic polyneuropathy, R79.89 - Other specified abnormal findings of blood chemistry, Z79.4 - laborer marine terminal (current) use of insulin Microalbumin, Random (w Creat) Today E11.42 - Type 2 diabetes mellitus with diabetic polyneuropathy, E11.9 - Type 2 diabetes mellitus without complications, Z79.4 - senior living (current) use of insulin Referrals Podiatry Referral E11.42 - Type 2 diabetes mellitus with diabetic polyneuropathy, E11.9 - Type 2 diabetes mellitus without complications, Z79.4 - laborer marine terminal (current) use of insulin Medications: New dextrose (TRUEplus Glucose) until symptoms of low blood sugar are controlled 15 grams (32 mL) PO Q15M PRN 128 mL 3RF hypoglycemia Changed From insulin glargine U-300 conc (Toujeo Max U-300 SoloStar) 120 units (0.4 mL) subcut BEDTIME 18 mL 3RF To insulin glargine U-300 conc (Toujeo Max U-300 SoloStar) 35 units subcut BEDTIME Patient Instructions: Take Metformin 2 pills in the morning and 1 pill at in the evening Adinister Toujeo 35 units every evening. If he has low sugars decrease to 30 units. Humalog sliding scale: blood sugar 150-200 take 2 units blood sugar 201-250: take 4 units blood sugar 251-300: take 6 units blood sugar 301-350: take 8 units blood sugar 351-400: take 10 units blood sugar Over 400: take 12 units If you experience low blood sugar, treat this by eating a chewable fruit candy like skittles or jelly beans (about 8 pieces), 4 ounces (1/2 cup) of fruit juice (not diet), 1 tablespoon of honey or 4 glucose tablets. If your blood sugar is under 55, take double the amount of one of the above. Recheck your blood sugar in 15 minutes. Coding Level of Care Code Est Pt Level 4 (78505) Diagnoses Type 2 diabetes mellitus with diabetic polyneuropathy, with long-term current use of insulin E11.42; Z79.4 Diabetes mellitus complication detail: with polyneuropathy Diabetes mellitus laborer marine terminal insulin use: with mcfp use CPT Codes Details - CPT: 32484 - Glucose monitoring, continuous-physician I&R ([id number])
[2024-07-23 10:58] VITALS: BP 134/64; PULSE 67; O2SAT 97; BMI 38.6
[2024-07-23 11:11] LABS: Glucose, Whole Blood 241 mg/dL (60-115)
--- OUTSIDE RECORDS SUMMARY | 2024-07-23 11:18 | XMS_ITS | Clinical Summary ---
Author Organization [facility] ity Address [address] [place] [address] Care Team Providers Care Travel Assistant Name Role Phone Unavailable Primary Care Provider [...] - 2023-2 5 season) 2023 Influenza Vaccine (Season Ended) 2024 RSV Immunization Adult Patie nts (1 - [...] age to complete this topic Meningococcal B Vaccine Aged Out No l onger eligible based on patient's age to complete this topic RSV Immunization Patients Un lashawn 20 months Aged Out No longer eligible b ased on patient's age to complete this topic Varicella Vaccines Aged Out No longer eligible based on patient's age to complete this topic
--- OUTSIDE RECORDS SUMMARY | 2024-07-23 11:19 | XMS_ITS ---
Author Name Tammy Vega NP Address [address] [place] [address] Phone [phone] [facility] [employer] [facility] Care Team Providers Care Test Design Engineer Name Role Phone Cale Vegakiara Unavailable [phone] [facility] Unavailable [phone] Unavailable Unavailable Unavailable Unavailable Unavailable Unavailable [facility] Unavailable HungJerry carrillo Unavailable [phone] Reason for Referral Not Available Allergies, adverse [...] capsules orally TID 2021-03-28 No Data Available [place] SoloStar 300 UNIT/ML Solution Pen-injector Subcutaneous 120U IN THE Bedtime. 2021-05-14 No Data Available B-D PEN NDL SHRT 75QD1YC(07/23) ANNAMARIE USE TO INJECT 3 TIMES DAILY 2021-06-05 2023-12-12 Clotrimazole-Betamethasone 1-0.05 % Crm APPLY TOPICALLY TO THE AFFECTED AREA TWICE DAILY FOR 15 DAYS 2021-11-26 No Data Available Lisinopril 10 mg Tab TAKE 1 TABLET BY [facility] DAILY 2022-02-05 2024-06-01 Trulicity 1.5 mg/0.5ML [...] Dial) 100 UNIT/ML Solution Pen-injector Subcutaneous INJECT 2-12 UNITS SUBCUTANEOUSLY TWICE DAILY DIRECTED 2022-03-12 No Data Available OneTouch Delica Plus [id number] Miscellaneous TEST BLOOD SUGAR THREE TIMES DAILY [...] 40 mg Tab TAKE 1 TABLET BY [facility] DAILY 2022-07-12 No Data Available Polyethylene Glycol 3350 17 GM Packet Mix 1 packet in 8 ounces of water, juice, coffee or tea and drink once a day 2022-07-14 No Data Available Vitamin D3 50 mcg (2,000 unit) capsule TAKE 1 CAPSULE BY MOUTH DAILY 2021-09-07 No Data Available predniSONE 20 mg Tab TAKE 2 TABLETS BY [facility] DAILY x 3days 2022-10-11 2022-10-18 Aspirin 81 [...] by mouth daily 2024-06-09 No Data Available Penicillin V Potassium 500 m g Tab TAKE 1 TABLET BY MOUTH THREE TIMES DAILY 2024-06-11 No Data Available hydrOXYzine 25 mg Tab TAKE 1 TABLET BY M OUTH EVERY 6 HOURS NEEDED FOR ANXIETY 2024-06-17 No Data Available Problem List Problem Status Onset Date Resolved Date BPH (benign prostatic hyperplasia) Active 2021-03- N/A Hyperlipidemia Active 2022-02-19 N/A Morbid (severe) obesity due to excess calories Active 2022-02-25 N/A Coronary artery disease Active 2022-02-23 N/A MDD (major depressive disord er), recurrent episode, moderate Active 2023-04-04 N/A Osteoarthritis, multiple sites Active 2023-12-18 N/A Unsteady gait Active 2023-12-18 N/A Anxiety Active 2024-03-08 N/A Low back pain Active 2022-02-23 N/A Abdominal pain Active 2024-06-04 N/A Fall, initial encounter Active 2023-04-04 N/A Incontinence Active 2024-06-08 N/A Chronic obstructive airway d iseasePulmonary emphysema, unspecified emphysema type Active 2022-02-19 N/ A Altered mental state Resolved 2023-07-312024-06 Other problems related to [facility] facilities and other health care Active 2024-03-08 N/A Hypertension Active 2022-02-19 N/A Diabetic peripheral neuropat hy associated with type 2 diabetes mellitus Active 2022-02-19 N/A History of recent hospitalization Active 2024-02 N/A URI (upper respiratory infection) Active 2024-06 N/A Diabetes mellitus with other complicationsHLD Active 2022-02-19 N/A Encounters Encounters Type Facility Date of Service Diagnosis/Co mplaint New patient,40-59min; chronic exacerbation, 2 stable chronic or 1 acute illness add add modifier 95 for video (do not use for phone, instead use 91594-76) [facility], [place] Morbid (severe) obesity due to excess caloriesBody mass index (BMI) 40.0-44.9, adultChronic obstructive pulmonary disease, unspecifiedEnlarged prostate without lower urinary tract symptomsType 2 diabetes mellitus with diabetic polyneuropathyEssential (primary) hypertensionHyperlipidemia, unspecifiedMajor depressive disorder, single episode, in full remissionLow back pain, unspecifiedAthscl heart disease of pala coronary artery w/o ang pctrsType 2 diabetes mellitus with other specified complicationLong term (current) use of insulin New patient,40-59min; chronic exacerbation, 2 stable chronic or 1 acute illness add add modifier 95 for video (do not use for phone, instead use 49731-46) [facility] New patient,40-59min; chronic exacerbation, 2 stable chronic or 1 acute illness add add modifier 95 for video (do not use for phone, instead use 90782-89) [facility] 02[place] New patient,40-59min; chronic exacerbation, 2 stable chronic or 1 acute illness add add modifier 95 for video (do not use for phone, instead use 24955-09) [facility] 02[place] New patient,40-59min; chronic exacerbation, 2 stable chronic or 1 acute illness add add modifier 95 for video (do not use for phone, instead use 99935-29) [facility] 02[place] New patient,40-59min; chronic exacerbation, 2 stable chronic or 1 acute illness add add modifier 95 for video (do not use for phone, instead use 26015-41) [facility], ([place] 02/19/2022 RN, CN or CP time with patient by phone; use with 1111F, BP, A1c or other CPTII codes [facility], ([place]) 10/14/2022 Encounter for other specifie d aftercare RN, CN or CP time with patient by phone; use with 1111F, BP, A1c or other CPTII codes [facility], ([place]) 10/14/2022 Estab. patient 30-39min; chronic exacerbation, 2 stable chronic or 1 acute illness add add modifier 95 for video, (do not use for phone, instead use 61500-38) [facility]18[place]2022 Type 2 diabetes mellitus wit [...] (do not use for phone, instead use 78114-23) [facility]18[place]20[place] Estab. patient 30-39min; chronic exacerbation, 2 stable chronic or 1 acute illness add add modifier 95 for video, (do not use for phone, instead use 24393-95) [facility] 10[place]18[place]20[place] Estab. patient 30-39min; chronic exacerbation, 2 stable chronic or 1 acute illness add add modifier 95 for video, (do not use for phone, instead use 78100-83) [facility] 10[place]18/20[place] Estab. patient 30-39min; chronic exacerbation, 2 stable chronic or 1 acute illness add add modifier 95 for video, (do not use for phone, instead use 85906-84) [facility] 10[place]18[place]20[place] Estab. patient 30-39min; chronic exacerbation, 2 stable chronic or 1 acute illness add add modifier 95 for video, (do not use for phone, instead use 62670-11) [facility] 10[place]18/20[place] Estab. patient 30-39min; chronic exacerbation, 2 stable chronic or 1 acute illness add add modifier 95 for video, (do not use for phone, instead use 21666-68) [facility] 10[place]18[place]20[place] Estab. patient 30-39min; chronic exacerbation, 2 stable chronic or 1 acute illness add add modifier 95 for video, (do not use for phone, instead use 27708-68) [facility] 10[place]18/20[place] Estab. patient 30-39min; chronic exacerbation, 2 stable chronic or 1 acute illness add add modifier 95 for video, (do not use for phone, instead use 79011-35) [facility], ([place]) 10/18/2022 Estab. patient 30-39min; chronic exacerbation, 2 stable chronic or 1 acute illness add add modifier 95 for video, (do not use for phone, instead use 32494-25) [facility] 10[place]18/2022 Unlisted special service; to be used for medical record reviews and reporting CPTII codes (1111F, etc) [facility]/2022 Other specified health statu s Unlisted special service; to be used for medical record reviews and reporting CPTII codes (1111F, etc) [facility] 11/[place]/2022 Unlisted special service; to be used for medical record reviews and reporting CPTII codes (1111F, etc) [facility] 11/25/2022 No Data Available [facility], ([place] 02/24/2023 Type 2 diabetes mellitus wit h other specified complicationEmphysema, unspecifiedEnlarged prostate without lower urinary tract symptomsType 2 diabetes mellitus with diabetic polyneuropathyEssential (primary) hypertensionHyperlipidemia, unspecifiedMajor depressive disorder, single episode, in full remissionLow back pain, unspecifiedAthscl heart disease of pala coronary artery w/o ang pctrsMorbid (severe) obesity due to excess caloriesBody mass index (BMI) 40.0-44.9, adult No Data Available [facility] 02/24/2023 No Data Available [facility]20[place] No Data Available [facility]20[place] No Data Available [facility] 02/[place]20[place] No Data Available [facility] 02[place]20[place] No Data Available [facility] 04[place]04/2023 Type 2 diabetes [...] initial encounterAnxiety disorder, unspecified No Data Available [facility], ([place] 04[place]04/2023 No Data Available [facility]/04[place]20[place] No Data Available [facility]/04/2023 No Data Available [facility]/04/2023 No Data Available [facility]/04/2023 No Data Available [facility] 04/04/2023 No Data Available [facility]/04/2023 No Data Available [facility] 05/02/2023 Type 2 diabetes mellitus wit h other specified complicationEmphysema, unspecifiedEnlarged prostate without lower urinary tract symptomsType 2 diabetes mellitus with diabetic polyneuropathyEssential (primary) hypertensionHyperlipidemia, unspecifiedLow back pain, unspecifiedAthscl heart disease of pala coronary artery w/o ang pctrsBody mass index (BMI) 40.0-44.9, adultMorbid (severe) obesity due to excess caloriesOther problems related to medical facilities and other health careUnspecified fall, initial encounterAnxiety disorder, unspecifiedMajor depressive disorder, recurrent, moderate No Data Available [facility] 05/02/2023 No Data Available [facility] 05/02[place]2023 No Data Available [facility] 05/02/2023 No Data Available [facility] 05/02/2023 No Data Available [facility] 05/02/2023 No Data Available [facility] 05/20/2023 Type 2 diabetes [...] unspecifiedUnspecified fall, subsequent encounter No Data Available [facility] 05[place]/20[place] No Data Available [facility]20[place] No Data Available [facility]20[place] No Data Available [facility]20[place] No Data Available [facility] 05[place]20[place] No Data Available [facility] 07[place]/2023 Type 2 diabetes mellitus wit h other specified complicationHyperlipidemia, unspecifiedLong term (current) use of insulinLong-term (current) use of injectable non-insulin antidiabetic drugsOther problems related to medical facilities and other health care No Data Available [facility] 07[place]/2023 Altered mental status, unspecified No Data Available [facility] 08/[place]/2023 Altered mental status, unspecifiedOther problems related to medical facilities and other health care No Data Available [facility] 10[place]02/2023 Type 2 diabetes mellitus wit h other specified complicationHyperlipidemia, unspecifiedOther problems related to medical facilities and other health careAltered mental status, unspecified Estab. patient 30-39min; chronic exacerbation, 2 stable chronic or 1 acute illness add add modifier 95 for video, (do not use for phone, instead use 29785-50) [facility]/10/2023 Type 2 diabetes [...] (do not use for phone, instead use 71890-40) [facility] 12[place]10/2023 Estab. patient 30-39min; chronic exacerbation, 2 stable chronic or 1 acute illness add add modifier 95 for video, (do not use for phone, instead use 27550-06) [facility] ([place]20[place] Estab. patient 30-39min; chronic exacerbation, 2 stable chronic or 1 acute illness add add modifier 95 for video, (do not use for phone, instead use 91202-74) [facility] 12[place]10/2023 Estab. patient 30-39min; chronic exacerbation, 2 stable chronic or 1 acute illness add add modifier 95 for video, (do not use for phone, instead use 67584-75) [facility] 12[place]10/2023 Estab. patient 30-39min; chronic exacerbation, 2 stable chronic or 1 acute illness add add modifier 95 for video, (do not use for phone, instead use 74525-18) [facility] 12[place]10/2023 Estab. patient 30-39min; chronic exacerbation, 2 stable chronic or 1 acute illness add add modifier 95 for video, (do not use for phone, instead use 02172-91) [facility] 12[place]10/2023 Estab. patient 30-39min; chronic exacerbation, 2 stable chronic or 1 acute illness add add modifier 95 for video, (do not use for phone, instead use 74984-48) [facility] ([place] 12/10/2023 Estab. patient 30-39min; chronic exacerbation, 2 stable chronic or 1 acute illness add add modifier 95 for video, (do not use for phone, instead use 40964-57) [facility] 12[place]10/2023 Estab. patient 30-39min; chronic exacerbation, 2 stable chronic or 1 acute illness add add modifier 95 for video, (do not use for phone, instead use 23117-89) [facility] ([place] 12[place]10/2023 No Data Available [facility] 12[place]18/2023 Major depressive disorder, recurrent, moderateType 2 diabetes mellitus with other specified complicationHyperlipidemia, unspecifiedPolyosteoarthritis, unspecifiedUnsteadiness on feetAnxiety disorder, unspecifiedOther problems related to medical facilities and other health careLow back pain, unspecifiedUnspecified fall, initial encounter No Data Available [facility] [place] 12/18/[address] [facility] 12/18[place] [facility]/18[place]2023 No Data Available [facility] [place]/18[place]20[place] No Data Available [facility] [place]2024 Essential (primary) hypertensionType 2 diabetes mellitus with other specified complicationNicotine dependence, unspecified, in remissionHyperlipidemia, unspecifiedOther problems related to medical facilities and other health care No Data Available [facility] ([place] 01/14/2024 No Data Available [facility] ([place] 01/14/[address] [facility] [place] 01/14/2024 No Data Available [facility] [place] 01/14/2024 No Data Available [facility] [place] 01/14/2024 No Data Available [facility] [place] 02/27/2024 Other malaiseRepeated fallsPersonal history of other medical treatment No Data Available [facility] [place] 02/27/2024 No Data Available [facility] [place] 02/27/2024 No Data Available [facility] [place] 02/27/2024 No Data Available [facility] [place] 03/08/2024 Anxiety disorder, unspecifiedAcute upper respiratory infection, unspecifiedOther problems related to medical facilities and other health care No Data Available [facility] 03/08/2024 No Data Available [facility] 03/08/20[place] Estab. patient 10-29min; 1 minor problem; add add modifier 95 for video, modifier 93 for [facility], ([place] 03/12/2024 Acute upper respiratory infection, unspecifiedOther problems related to medical facilities and other health care Estab. patient 10-29min; 1 minor problem; add add modifier 95 for video, modifier 93 for [facility], ([place] 03/12/2024 Estab. patient 10-29min; 1 minor problem; add add modifier 95 for video, modifier 93 for [facility], ([place] 04/07/2024 Low back pain, unspecifiedOt her problems related to medical facilities and other health care RN, CN or CP time with patient by phone; use with 1111F, BP, A1c or other CPTII codes [facility], [place] 06/01/2024 Encounter for other specifie d aftercare RN, CN or CP time with patient by phone; use with 1111F, BP, A1c or other CPTII codes [facility], ([place] 06/01/2024 Estab. patient 10-29min; 1 minor problem; add add modifier 95 for video, modifier 93 for [facility], ([place] 06/04/2024 Unspecified abdominal painOt her problems related to medical facilities and other health care Estab. patient 10-29min; 1 minor problem; add add modifier 95 for video, modifier 93 for [facility], ([place] 2024 Type 2 diabetes mellitus wit h other specified complicationHyperlipidemia, unspecifiedEmphysema, unspecifiedUnspecified urinary incontinenceUnspecified fall, subsequent encounterPersonal history of other medical treatment Estab. patient 10-29min; 1 minor problem; add add modifier 95 for video, modifier 93 for [facility] ([place] 2024 Estab. patient 10-29min; 1 minor problem; add add modifier 95 for video, modifier 93 for [facility] 2024 Estab. patient 10-29min; 1 minor problem; add add modifier 95 for video, modifier 93 for [facility] 06/09/2024 Type 2 diabetes mellitus wit h other specified complicationHyperlipidemia, unspecifiedOther problems related to medical facilities and other health care Estab. patient 10-29min; 1 minor problem; add add modifier 95 for video, modifier 93 for phone [facility], ([place] 06/09/2024 Estab. patient 10-29min; 1 minor problem; add add modifier 95 for video, modifier 93 for phone [facility], ([place] 06/09/2024 Acute upper respiratory infection, unspecifiedEssential (primary) hypertensionType 2 diabetes mellitus with diabetic polyneuropathy Estab. patient 10-29min; 1 minor problem; add add modifier 95 for video, modifier 93 for phone [facility], ([place] 06/09/2024 Estab. patient 10-29min; 1 minor problem; add add modifier 95 for video, modifier 93 for phone [facility], [place] 06/09/2024 Estab. patient 10-29min; 1 minor problem; add add modifier 95 for video, modifier 93 for phone [facility], ([place] 06/09/2024 Estab. patient 10-29min; 1 minor problem; add add modifier 95 for video, modifier 93 for phone [facility], ([place] 06/09/2024 Estab. patient 10-29min; 1 minor problem; add add modifier 95 for video, modifier 93 for phone [facility], ([place] 06/11/2024 Other problems related to medical facilities and other health carePersonal history of other medical treatment Estab. patient 10-29min; 1 minor problem; add add modifier 95 for video, modifier 93 for phone [facility], ([place] 06/15/2024 Acute upper respiratory infection, unspecifiedType 2 diabetes mellitus with other specified complicationOther problems related to medical facilities and other health carePersonal history of other medical treatment Estab. patient 10-29min; 1 minor problem; add add modifier 95 for video, modifier 93 for phone [facility], ([place] 06/15/2024 Estab. patient 10-29min; 1 minor problem; add add modifier 95 for video, modifier 93 for phone [facility], ([place] 06/23/2024 Type 2 diabetes mellitus wit h other specified complicationHyperlipidemia, unspecifiedOther problems related to medical facilities and other health care Estab. patient 10-29min; 1 minor problem; add add modifier 95 for video, modifier 93 for phone [facility], ([place]) 06/23/2024 Vital Signs Date of Collection Vitals 2022-02-19 [...] tive Time Current Smoking Status Former smoker 2024-07-08 6 Sex Male Gender identity Man History of Procedures Procedures Service Procedure code Service date Servicing provider Phone# New patient,40-59min; chronic exacerbation, 2 stable chronic or 1 acute illness add add modifier 95 for video (do not use for phone, instead use 37262-92) [id number] 2022-02-19 No Data Available No Data Availa [...] 1111F, BP, A1c or other CPTII codes 44568 2022-10-14 No Data Available No Data Avai lable Medications prescribed in hospital were reviewed and reconciled against what they were taking prior to admission during today's visit. (1111F) 1111F 2022-10-14 No Data Available No Data Availa ble Estab. patient 30-39min; chronic exacerbation, 2 stable chronic or 1 acute illness add add modifier 95 for video, (do not use for phone, instead use 27486-58) 57037 2022-10-18 No Data Available No Data Availa [...] reviews and reporting CPTII codes (1111F, etc) 43384 2022-11-25 No Data Available No Data Availa ble DBP <80 (3078F) 3078F 2022-11-25 No Data Available No Data Available SBP < 130 (3074F) 3074F 2022-11-25 No Data Available No Data Available No Data Available [id number] 2023-02-24 No Data Available No Data Available [...] le No Data Available No Data Available [id number] 2023-04-04 No Data Available No Data Available [...] le No Data Available No Data Available [id number] 2023-05-02 No Data Available No Data Available [...] No Data Avail able No Data Available [id number] 2023-05-20 No Data Available No Data Available [...] le No Data Available No Data Available [id number] 2023-07-08 No Data Available No Data Available No Data Available [id number] 2023-07-31 No Data Available No Data Available No Data Available [id number] 2023-08-26 No Data Available No Data Available No Data Available [id number] 2023-10-02 No Data Available No Data Available Estab. patient 30-39min; chronic exacerbation, 2 stable chronic or 1 acute illness add add modifier 95 for video, (do not use for phone, instead use 27170-55) [id number] 2023-12-10 No Data Available No Data Availa [...] No Data Avail able No Data Available [id number] 2023-12-18 No Data Available No Data Available [...] Available No Data Available No Data Available [id number] 2024-01-14 No Data Available No Data Available [...] No Data Availa ble No Data Available [id number] 2024-02-27 No Data Available No Data Available [...] 95 for video, modifier 93 for phone [id number] 2024-03-12 No Data Available No Data Availa ble Medication List Documented (1159F) 1159F 2024-03-12 No Data Available No Data Colette ilable Estab. patient 10-29min; 1 minor problem; add add modifier 95 for video, modifier 93 for phone [id number] 2024-04-07 No Data Available No Data Availa ble RN, CN or CP time with patient by phone; use with 1111F, BP, A1c or other CPTII codes 53415 2024-06-01 No Data Available No Data Avai lable Medications prescribed in hospital were reviewed and reconciled against what they were taking prior to admission during today's visit. (1111F) 11112024-06-01 No Data Available No Data Availa ble [...] prior to admission during today's visit. (1111F) 11112024-06-03 No Data Available No Data Availa ble Medication List Documented (1159F) 1159F 2024 No Data Available No Data Colette ilable Estab. patient 10-29min; 1 minor problem; add add modifier 95 for video, modifier 93 for phone 2024-06-09 No Data Available No Data Availa ble Most recent A1c (HbA1c) or GMI level >9% 3042024-06-09 No Data Available No Data Availa ble Estab. patient 10-29min; 1 minor problem; add add modifier 95 for video, modifier 93 for phone 2024-06-10 No Data Available No Data Availa ble SBP >= 140 3077F 2024-06-10 No Data Available No Data Available DBP >=90 3080F 2024-06-10 No Data Available No Data Available Medication List Documented (1159F) [id number] No Data Available No Data Colette ilable Most recent A1c (HbA1c) or GMI level >9% 30462024-06-10 No Data Available No Data Availa ble Estab. patient 10-29min; 1 minor problem; add add modifier 95 for video, modifier 93 for phone 2024-06-11 No Data Available No Data Availa ble Estab. patient 10-29min; 1 minor problem; add add modifier 95 for video, modifier 93 for phone 2024-06-15 No Data Available No Data Availa ble Most recent A1c (HbA1c) or GMI level 7-7.9% (3051F) [id number] 2024-06-15 No Data Available No Data Availa ble Estab. patient 10-29min; 1 minor problem; add add modifier 95 for video, modifier 93 for phone [id number] 2024-06-23 No Data Available No Data Availa ble Medication List Documented (1159F) [id number] 2024-06-23 No Data Available No Data Colette ilable Functional Status Functional Category Effective Dates ADLsDressing - Needs assista nceBathing - Needs assistanceToileting - Needs assistanceTransfers - Needs assistanceEating - IndependentiADLsShopping - Needs assistanceMedications - IndependentHousekeeping - Needs assistanceCooking - Needs assistanceFalls in last 6 months - Yes 2022-10-18 [employer] coming in M-F only one h our per day (originally approved for 10 hours) 2023-04-04 uses cane and walker at home to ambulate 2023-12-18 VEGETABLE BUNCHER is his niece. [employer] 2023-12-18 has meals [...] encounterPatient Education to avoid future hospitalization: Call [facility] if symptoms of illness develop.Other problems related [...] and other health careHistory of recent hospitalization 2024-06-15 09:16:40 URI (upper respirato ry infection)Other problems related to medical facilities and other health careHistory of recent hospitalizationDiabetes mellitus with other complicationsHLD 2024-06-23 06:46:32 Diabetes mellitus wi th other complicationsHLDOther problems related to medical facilities [...] denies monitoring BGLantus, TrulicityContinue to f/u w/ finishing operator q3-6 months, monitor BG levels, discussed dietary and exercise interventions, contact us if develop hyperglycemia s/sxStableAlbuterol, FloventMonitor O2, take medications as Rx, continue f/u care w/ PCP [id number], contact us if you develop respiratory distressStableTamsulosinMonitor urine output, continue taking medication as prescribed, f/u PCP [id number], contact us if develop acute decrease in [...] denies monitoring BGLantus, TrulicityContinue to f/u w/ finishing operator q3-6 months, monitor BG levels, discussed dietary and exercise interventions, contact us if develop hyperglycemia s/sxStableAlbuterol, FloventMonitor O2, take medications as Rx, continue f/u care w/ PCP [id number], contact us if you develop respiratory distressStableTamsulosinMonitor urine output, continue taking medication as prescribed, f/u PCP [id number], contact us if develop acute decrease in [...] denies monitoring BGLantus, TrulicityContinue to f/u w/ finishing operator q3-6 months, monitor BG levels, discussed dietary and exercise interventions, contact us if develop hyperglycemia s/sxStableAlbuterol, FloventMonitor O2, take medications as Rx, continue f/u care w/ PCP [id number], contact us if you develop respiratory distressStableTamsulosinMonitor urine output, continue taking medication as prescribed, f/u PCP [id number], contact us if develop acute decrease in [...] coping mechanisms and benefits of potential verbal [id number]/18/23: feels more calm now that he's home; [...] denies monitoring BGLantus, TrulicityContinue to f/u w/ finishing operator q3-6 months, monitor BG levels, discussed dietary and exercise interventions, contact us if develop hyperglycemia s/sxCONTINGENCY PLANMember to call for the following symptoms: Blood sugar <70/ Blood sugar >300/ More thirsty than usual/ Urinating more than usualPlanned intervention:StableAlbuterol, FloventMonitor O2, take medications as Rx, continue f/u care w/ PCP [id number], contact us if you develop respiratory distressStableTamsulosinMonitor urine output, continue taking medication as prescribed, f/u PCP [id number], contact us if develop acute decrease in [...] joint pain increased [facility]. [facility] [...] denies monitoring BGLantus, TrulicityContinue to f/u w/ finishing operator q3-6 months, monitor BG levels, discussed dietary and exercise interventions, contact us if develop hyperglycemia s/sxCONTINGENCY PLANMember to call for the following symptoms: Blood sugar <70/ Blood sugar >300/ More thirsty than usual/ Urinating more than usualPlanned intervention:StableAlbuterol, FloventMonitor O2, take medications as Rx, continue f/u care w/ PCP [id number], contact us if you develop respiratory distressStableTamsulosinMonitor urine output, continue taking medication as prescribed, f/u PCP [id number], contact us if develop acute decrease in [...] denies monitoring BGLantus, TrulicityContinue to f/u w/ finishing operator q3-6 months, monitor BG levels, discussed dietary and exercise interventions, contact us if develop hyperglycemia s/sxCONTINGENCY PLANMember to call for the following symptoms: Blood sugar <70/ Blood sugar >300/ More thirsty than usual/ Urinating more than usualPlanned intervention: 05/20/23: had episodes of hypoglycemia in STR; have decreased lantus to 60Units per nightStableAlbuterol, FloventMonitor O2, take medications as Rx, continue f/u care w/ PCP [id number], contact us if you develop respiratory distressStableTamsulosinMonitor urine output, continue taking medication as prescribed, f/u PCP [id number], contact us if develop acute decrease in [...] call CBContinue to see PCP. [facility] [...] modifier 95)Continue to see PCP. [facility] or disease education needs that may arise 30/09.Type 2 diabetes mellitus with HLDNo A1c on EMR, Pt denies monitoring BGLantus, TrulicityContinue to f/u w/ finishing operator q3-6 months, monitor BG levels, discussed dietary [...] joint pain increased [facility]. [facility]up with [facility] [...] date) tx from the hospital to a half-way for advanced dementia per cg. I left [...] date) tx from the hospital to a half-way for advanced dementia per cg. I left a message to the patient's son Manuel for add. information. Placed member on hold due to placement.08/26/23: Son reports that the patient returned home 2 weeks ago from SNF. The family has been providing 30/09 support but he reports that the patient needs more [employer] hours to continue to providing adequate care. I provided [facility] CC number for follow up. Denies [...] denies monitoring BGLantus, TrulicityContinue to f/u w/ finishing operator q3-6 months, monitor BG levels, discussed dietary [...] reports that the patient recently started with [employer]GET[employer] (niece) to help with his care. He was previously non-compliant with his medications and insulin; VEGETABLE [employer] Crystal is helping with his medication management [...] date) tx from the hospital to a half-way for advanced dementia per cg. I left a message to the patient's son Manuel for add. information. Placed member on hold due to placement.08/26/23: Son reports that the patient returned home 2 weeks ago from SNF. The family has been providing 30/09 support but he reports that the patient needs more [employer]GET[employer] hours to continue to providing adequate care. I provided [facility] CC number for follow up. Denies [...] Documented ([id number])Continue to see PCP. Follow-up with [facility] as needed for any acute or disease education needs that may arise.Type 2 diabetes mellitus with HLDNo A1c on EMR, Pt denies monitoring BGLantus, TrulicityContinue to f/u w/ finishing operator q3-6 months, monitor BG levels, discussed dietary [...] reports that the patient recently started with [employer]GET[employer] (niece) to help with his care. He was previously non-compliant with his medications and insulin; VEGETABLE B[employer] Crystal is helping with his medication management due to BS in 300's avg.StableAlbuterol, FloventMonitor O2, take medications as Rx, continue f/u care w/ PCP [id number], contact us if you develop respiratory distressStableTamsulosinMonitor urine output, continue taking medication as prescribed, f/u PCP [id number], contact us if develop acute decrease in [...] but in pain and frustrated about reduced [employer] hours. Please keep a log and we [...] call CBContinue to see PCP. Follow-up with [facility] as needed for any acute or disease [...] PT - asking PCP.Due to not enough VEGETABLE BUNCHER presence, has fallen a number of times recently, and hurt his ribs badly.Also needs medication reminders. Reduced [employer]GETABLE [employer] hours because they were sending meals on wheels. VEGETABLE [employer] has been with him since August and [...] (with food)Patient verbalized understanding. Caregiver verbalized understanding.Reduced [employer] hours because they were sending meals on wheels but has not received the meals yet.Also needs medication reminders now that his VEGETABLE BUNCHER is not there as much - at risk for noncompliance.Reduced [employer]GETABLE [employer]CH[employer] hours because they were sending meals on wheels. VEGETABLE BUNCHER has been with him since August and [...] 05/02/23: hydroxyzine is helping with panic attacks PRN10.12.31: continues to see psychiatrist. Anxiety controlled with medications.fall 04/03/23: from chair neck pain today 06/17did not hit his head taking tylenol arthritis BS: 99, 120's Is no longer using trulicity (d/t N/V) DME ordered in ER-shower chair and walker ANXIETY: taking gabapentin (for RLS) .12.17-reports number of falls in past few months, Last fall one week ago. At times feels off-balanced, dizzy, lightheaded. will order walker/rollator today. Bedside commode also orderedmeds that are contributing to his fall risk: dicyclomine, cyclobenzaprine, gabapentin, hydroxyzine, oxybutynin. Will send via sms to his [facility] member to call: If he falls or feels dizzy and is at danger of fallingIf bp is elevated sbp>150; dbp>90 or symptomatic-h/a, dizziness, cp, sob. if BS >300 or BS<90 or symptomatic; i.e., dizzy, off balance , shaky, general weakness. if UTI symptoms arise-urinary frequency, dysuria, low abd pain. if pain in knees increases/ or joint pain increased Please [facility]. Follow-up with [facility] as needed for any acute or disease education needs that may arise 30/09.what should be done when the member calls: see each individual diagnosis for contingency planStableCymbaltaContinue taking medications, practice core ROM exercises as tolerable, contact us if develop increase in low back pain without reliefType 2 diabetes mellitus with HLDNo A1c on EMR, Pt denies monitoring BGLantus, TrulicityContinue to f/u w/ finishing operator q3-6 months, monitor BG levels, discussed dietary [...] reports that the patient recently started with [employer]GETABLE B[employer]CHER (niece) to help with his care. He was previously non-compliant with his medications and insulin; VEGETABLE BUNCHER Crystal is helping with his medication management [...] denies monitoring BGLantus, TrulicityContinue to f/u w/ finishing operator q3-6 months, monitor BG levels, discussed dietary [...] reports that the patient recently started with [employer]GETABLE B[employer]CHER (niece) to help with his care. He was previously non-compliant with his medications and insulin; VEGETABLE BUNCHER Crystal is helping with his medication management due to BS in 300's avg.10.24: reports his BS have decreased. Now <200 average. Is f/u wit pcp and reports good bs and good BP during visit no records available to review today01/14/2024 patient visited finishing operator this week . patient states that his BG is controlled for the most part.StablePt denies monitoring BPLisinopril, MetoprololDiscussed dietary and exercise interventions, f/u w/ PCP q6-12 months, contact us develop emergent HTN s/sx10/2/24BP 150/76 today but in pain and frustrated about reduced [employer]GET[employer] hours. Please keep a log and we [...] joint pain increased [facility]. [facility] [...] at home and decided to get looked at.VEGETABLE [employer]CH[employer] hours were reduced just as he is getting weaker and his walking is unsafe.Needs PT - asking PCP.Due to not enough VEGETABLE BUNCHER presence, has fallen a number of times recently, and hurt his ribs badly.Also needs medication reminders. Reduced [employer]GETABLE [employer]CH[employer] hours because they were sending meals on wheels. VEGETABLE BUNCHER has been with him since August and [...] to seek medical assistance or to call [facility].03/08/24 Patient reports fever, chills and congestion with [...] modifier 95)Continue to see PCP. Follow-up with [facility] as needed for any acute or disease [...] joint pain increased Please [facility]. Follow-up with [facility] as needed for any acute or disease education needs that may arise 30/09.what should be done when the member calls: see each individual diagnosis for contingency plan 2024-04-07 05:25:01 Estab. patient 10-29 min; 1 minor problem; add add modifier 95 for video, modifier 93 for phoneContinue to see PCP. Follow-up with [facility] as needed for any acute or disease education needs that may arise 30/09.Add Contingency PlanStableCymbaltaContinue taking medications, practice core ROM exercises as tolerable, contact us if develop increase in low back pain without reliefER visit on 03/19/24 at [facility]. He reports [...] remember to call CBPSYCH CONTINGENCY PLANLast updated: 03/08/2024[facility] to call for the following symptoms: Agitation/ [...] Prescribe medication as appropriatePSYCH CONTINGENCY PLANLast updated: 03/08/2024[facility] to call for the following symptoms: Agitation/ Anxiety/ Insomnia/ Panic attacksPlanned intervention: Hydroxyzine (Vistaril) 25mg PO q6h PRN anxiety/ Encourage member to journal feelings/ Remind member of personal goal:/ Encourage use of home medication:/ Increase dose of current medication:/ Limit extra stimulation06/04/24: ER visit on 06/03/24 for severe abdominal pain. Nianusha reports the patient's symptom started in the [...] medication listContinue to see PCP. Follow-up with Don as needed for any acute or disease education needs that may arise 30/09. PCP visit is planned for:Type 2 diabetes mellitus with HLDA1C 11/7% 5Continue to f/u w/ finishing operator q3-6 months, monitor BG levels, discussed dietary and exercise interventions, contact us if develop hyperglycemia s/s06/03/24: VEGETABLE BUNCHER/Ninoska Rojas reports that she recently restarted care [...] was hospitalized on 05/21-05/24 post fall at [facility].StableAlbuterol, FloventMonitor O2, take medications as Rx, continue f/u care w/ PCP [id number], contact us if you develop respiratory [id number]/16/2024 patient states he feels well at the moment. 06/03/24: Denies dyspnea 2024-06-09 07:50:22 Televideo 10-29min; 1 minor problem; add add modifier 95 for video, modifier 93 for phoneContinue to see PCP. [facility] or disease education needs that may arise 30/09.Type 2 diabetes mellitus with HLDA1C 01/14% ontinue to f/u w/ finishing operator q3-6 months, monitor BG levels, discussed dietary and exercise interventions, contact us if develop hyperglycemia s/s06/03/24: VEGETABLE BUNCHER/Ninoska Rojas reports that she recently restarted care [...] callback with continued hyperglycemia.DIABETES CONTINGENCY PLANLast updated: 06/09/2024[facility] to call for the following symptoms: Blood sugar <70??/ Blood sugar >300??/ DeliriumPlanned intervention: Increase short-acting insulin to lispro 2 units/ Encourage adequate water intake/ Limit high-sugar and high-carbohydrate foods/ Go for a walkPlease call if you experience ANDOMINAL PAIN, swelling, constipation, diarrhea, nausea or vomitingPlanned intervention: Prescribe medication as appropriatePSYCH CONTINGENCY PLANLast updated: 03/08/2024[facility] to call for the following symptoms: Agitation/ [...] but in pain and frustrated about reduced VEGETABLE [employer] hours. Please keep a log and we will FU.01/14/2024 patient states that his BP is controlled and take his medication 06/09/24: BP elevated 167/90 and 144/92. Taking furosemide, metoprolol and hydralazine (changed from lisinopril) 05/24/24. Has appt with PCP on 08/05/24 to discuss changes.Monitor sodium and water intake.Regular exercise, continue meds as directed.Contact CB with new, continued or worsening symptoms.F/U with JLILIAN 06/11/24StableGabapentin, Lantus, TrulicityMonitor sensation of BLE, continue [...] that may arise 30/09.DIABETES CONTINGENCY PLANLast updated: 06/09/2024[facility] to call for the following symptoms: Blood sugar <70??/ Blood sugar >300??/ DeliriumPlanned intervention: Increase short-acting insulin to lispro 2 units/ Encourage adequate water intake/ Limit high-sugar and high-carbohydrate foods/ Go for a walkPlease call if you experience ANDOMINAL PAIN, swelling, constipation, diarrhea, nausea or vomitingPlanned intervention: Prescribe medication as appropriatePSYCH CONTINGENCY PLANLast updated: 03/08/2024[facility] to call for the following symptoms: Agitation/ [...] was hospitalized on 05/21-05/24 post fall at [facility].06/11/24: Daniela reports that the patient is currently in the [facility]. Patient was send by finishing operator due to high BP, BS and possible infection. Cg reports that the patient complained of sore throat today. Reports BS yesterday 168 and he was feeling well. Scheduled a follow up for 06/15. 2024-06-15 09:16:40 Estab. patient 10-29 min; 1 minor problem; [...] increase, new or worsening symptomsF/U with JILLIAN : ER visit 06/11, dx with strep throat at [facility]. Cg reports changes to insulin regimen due to hyperglycemia, pending MR records. Cg unable to recallDIABETES CONTINGENCY PLANLast updated: 06/09/2024[facility] to call for the following symptoms: Blood sugar <70??/ Blood sugar >300??/ DeliriumPlanned intervention: Increase short-acting insulin to lispro 2 units/ Encourage adequate water intake/ Limit high-sugar and high-carbohydrate foods/ Go for a walkPlease call if you experience ANDOMINAL PAIN, swelling, constipation, diarrhea, nausea or vomitingPlanned intervention: Prescribe medication as appropriatePSYCH CONTINGENCY PLANLast updated: 03/08/2024[facility] to call for the following symptoms: Agitation/ [...] was hospitalized on 05/21-05/24 post fall at [facility].06/11/24: Christopher Suarez reports that the patient is currently in the ER [facility]. Patient was send by finishing operator due to high BP, BS and possible infection. Cg reports that the patient complained of sore throat today. Reports BS yesterday 168 and he was feeling well. Scheduled a follow up for 06/15. Dx with strep throat, d/c with abx, MR requested.Type 2 diabetes mellitus with HLDA1C 11/7% ontinue to f/u w/ finishing operator q3-6 months, monitor BG levels, discussed dietary and exercise interventions, contact us if develop hyperglycemia s/s/: VEGETABLE BUNCHER/Ninoska Rojas reports that she recently restarted care [...] of distress, they will callback with continued hyperglycemia.06/15/24: Cg reports MD changed insulin regimen in ER on 06/11, pending MR records. Cg unable to recall changes. 2024-06-23 06:46:32 Estab. patient 10-29 min; 1 minor problem; add add modifier 95 for video, modifier 93 for phoneContinue to see PCP. [facility] or disease education needs that may arise 30/09.Type 2 diabetes mellitus with HLDA1C 11/7% 5Continue to f/u w/ finishing operator q3-6 months, monitor BG levels, discussed dietary and exercise interventions, contact us if develop hyperglycemia s/s06/03/24: VEGETABLE BUNCHER/Ninoska Rojas reports that she recently restarted care [...] of distress, they will callback with continued hyperglycemia.06/15/24: Cg reports MD changed insulin regimen in ER on 06/11, pending MR records. Cg unable to recall changes.06/23/24: Patient reports that he feels well, reports BS 260 (without am insulin). Reports VEGETABLE BUNCHER will administer insulin soon. Insulin regimen updated. He will call with any concerns. Message left to Daniela.DIABETES CONTINGENCY PLANLast updated: 06/09/2024[facility] to call for the following symptoms: Blood sugar <70??/ Blood sugar >300??/ DeliriumPlanned intervention: Increase short-acting insulin to lispro 2 units/ Encourage adequate water intake/ Limit high-sugar and high-carbohydrate foods/ Go for a walkPlease call if you experience ANDOMINAL PAIN, swelling, constipation, diarrhea, nausea or vomitingPlanned intervention: Prescribe medication as appropriatePSYCH CONTINGENCY PLANLast updated: 03/08/2024[facility] to call for the following symptoms: Agitation/ [...] PCP and Specialist. Health Concerns Date Concern 2024-06-23 Visit completed via audio by telephone. Patient/Guardian agreed to visit via telehealth.Time spent in visit: 2024-06-23 Most recent hospital stay(s) or ER visit(s) and precipitating factors: Denies
--- OUTSIDE RECORDS SUMMARY | 2024-07-23 11:19 | XMS_ITS | Clinical Summary ---
Author Organization [employer] Address [address] [place] [address] Care Team Providers Care Riding Teacher Name Role Phone Unavailable Primary Care Provider [...] mouth in the morning. 2 Active Immunizations Immunization Administration Dates Next Due Influenza High-dose Quadrivalent [...] Most Recently Relevant to Health Maintenance Insurance [facility] - [facility]
== END 2024-07-23 11:40 | disposition home or self-care (01) ==
LOC: HO.ENCR 10:46
PROVIDERS: Visit Provider Physician Assistant Medical
DX: E11.42 Type 2 diabetes mellitus with diabetic polyneuropathy (principal); Z79.4 Long term (current) use of insulin

== ENCOUNTER → 2024-07-23 10:45 | Outpatient (BNVA) | payer OTHER, SELFPAY | PROVIDERS: Visit Provider Physician Assistant Medical | DX: E11.42 Type 2 diabetes mellitus with diabetic polyneuropathy (principal); E78.00 Pure hypercholesterolemia, unspecified; Z79.4 Long term (current) use of insulin | CPT/HCPCS: 82947; 83036; 99212 ==

== ENCOUNTER 2024-08-12 01:48 | Emergency (ER) | payer OTHER, SELFPAY ==
--- NOTE | ~2024-08-12 | CT_ITS ---
CLINICAL HISTORY: trauma CT cervical spine without contrast Comparison: None Findings: The alignment of the cervical spine is normal. There is no fracture. There is multilevel degenerative disc disease. There is multilevel facet and uncovertebral joint osteoarthritis. There is carotid artery calcification. IMPRESSION: No evidence of cervical spine injury. This document has been electronically signed by: Tee Go MD on 08/12/2024 05:08:17
--- NOTE | ~2024-08-12 | CT_ITS ---
CLINICAL HISTORY: trauma CT head without contrast Comparison: None Findings: There is no acute intracranial hemorrhage. Ventricles are within normal limits in size. No mass effect or midline shift is present. The enriquez-white matter differentiation appears normal. There is generalized cerebral atrophy. Hypoattenuation in the deep cerebral white matter is consistent with chronic small vessel ischemic disease. There are chronic lacunar infarcts in the thalami. There are chronic lacunar infarcts versus prominent perivascular spaces in the basal ganglia. The visualized portions of the orbits, paranasal sinuses, and mastoids are unremarkable. No fractures are identified. IMPRESSION: No acute intracranial abnormality. This document has been electronically signed by: Tee Go MD on 08/12/2024 05:04:49
--- NOTE | ~2024-08-12 | CT_ITS ---
CLINICAL HISTORY: traumA CT abdomen and pelvis without contrast Comparison: None Findings: The patient is status post cholecystectomy. The liver, pancreas, spleen, adrenal glands, and kidneys are unremarkable. There is a moderate amount of stool throughout the colon. The gastrointestinal tract is otherwise unremarkable. There is no free fluid or free air. There is no hematoma. The aorta is diffusely atherosclerotic, but normal in diameter. There are no enlarged lymph nodes. The bladder is unremarkable. There are degenerative changes in the lower thoracic spine and upper lumbar spine. There is no fracture in the lumbar spine or pelvis. IMPRESSION: No acute abnormality in the abdomen or pelvis. This document has been electronically signed by: Tee Go MD on 08/12/2024 05:11:39
--- NOTE | ~2024-08-12 | CT_ITS ---
CLINICAL HISTORY: TRAUMA CT chest without contrast Comparison: None Findings: There is borderline cardiomegaly. There is no pericardial effusion. There are small pericardial calcifications anteriorly. Patient is status post CABG. The thoracic aorta is within normal limits in diameter. There is no hematoma. There are no enlarged lymph nodes. There is mild bilateral atelectasis. Lungs appear otherwise clear allowing for mild limitation of motion artifact. Trachea and central bronchi are widely patent. There is a healing subacute fracture of the left 6th rib anteriorly. There are old healed fractures of right posteromedial ribs. There is no acute fracture. There are degenerative changes in the lower thoracic spine. IMPRESSION: No evidence of acute injury in the chest. This document has been electronically signed by: Tee Go MD on 08/12/2024 05:15:51
[2024-08-12 01:51] VITALS: BP 145/77; BP 170/92; PULSE 63; RESP 20; TEMP 37.1; O2SAT 95; O2SAT 97; BMI 35.9
--- OUTSIDE RECORDS SUMMARY | 2024-08-12 02:43 | XMS_ITS | Clinical Summary ---
[facility] Address [address] [place] [address] Care Team Providers Care Station Jailer Name Role Phone Unavailable Primary Care Provider [...]
[2024-08-12] MEDS: LORazepam 1 MG TABLET 2 MG PO (03:02)
--- NOTE | 2024-08-12 03:29 | ED_ITS ---
HPI - General Adult General Chief complaint: Fall Stated complaint: FALL, +HS. -LOC Time Seen by Provider: 08/12/24 02:44 Source: patient and family Limitations: other (Dementia) History of Present Illness ED Provider: Paty Infante PA-C HPI narrative: 69-year-old male with a history of dementia, psychosis, prior alcohol abuse, diabetes, diabetic neuropathy, hypertension, hyperlipidemia, known coronary artery disease, gait instability who uses a walker to ambulate at home, COPD, asthma, overactive bladder, BPH, morbid obesity who presents after unwitnessed fall at home. Patient is not a reliable historian secondary to his underlying cognitive impairment. His niece is at bedside, he states he got up from bed to use the bathroom, subsequently falling backwards, hitting his head, but no loss of consciousness. The patient does take aspirin. Patient complains of head neck back and left lateral chest wall pain. Related Data Home Medications ?Medication ?Instructions ?Recorded ?Confirmed blood-glucose meter (Time Bomb DealsTouch #1 ea 11/27/22 07/23/24 Ultra2 Meter) Monthly Medication Organizer 10/03/23 07/23/24 (Med-Box) insulin glargine U-300 conc 300 35 unit subcut BEDTIME 07/23/24 07/23/24 unit/mL (3 mL) subcutaneous pen (Toujeo Max U-300 SoloStar) Previous Rx's ?Medication ?Instructions ?Recorded SHOWER CHAIR #1 ea 10/05/20 SHOWER CHAIR #1 ea 01/10/21 fluticasone propionate 50 1 spray intranasal DAILY #16 grams 03/16/21 mcg/actuation nasal spray,suspension insulin syr/ndl U100 half gareth 0.5 #100 ea 05/14/21 mL 30 gauge x 07/23 pen needle, diabetic 31 gauge x #100 ea 03/12/2207/23 (Lite Touch Insulin Pen Viper) lancets 33 gauge (OneTouch [place] #100 ea 03/13/22 Lancets) dicyclomine 20 mg tablet 20 mg PO QID PRN abdominal pain 07/05/22 #20 tabs ondansetron HCl 4 mg tablet 4 mg PO Q6H PRN nausea and 07/06/22 vomiting #14 tabs metoclopramide HCl 10 mg tablet 10 mg PO AC PRN nausea and 11/12/22 (Reglan) vomiting #20 tabs blood sugar diagnostic 1 strip miscellaneous TID #100 11/27/22 strips blood sugar diagnostic (OneTouch #100 ea 01/13/23 Ultra Test strips) pen needle, diabetic 29 gauge x #100 ea 04/02/23 1/2 (BD Ultra-Fine Original Pen Needle) WALKER #1 ea 04/09/23 gabapentin 400 mg capsule 400 mg PO TID #270 caps 06/11/23 walker #1 ea 06/15/23 cyanocobalamin (vitamin B-12) 1,000 mcg PO DAILY 90 days #90 tabs 10/03/23 1,000 mcg tablet monthly medication organizer (med #1 ea 10/06/23 box) Semi-Electric Hospital Bed #1 ea 10/07/23 blood-glucose sensor (FreeStyle #2 ea 10/21/23 Iwona 3 Sensor device) 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-glucose,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,cont #1 ea 10/21/23 (FreeStyle Iwona 3 Hardy) phenazopyridine 200 mg tablet 200 mg PO TID 2 days #6 tabs 11/04/23 (Pyridium) cholecalciferol (vitamin D3) 50 50 mcg PO DAILY #90 caps 11/19/23 mcg (2,000 unit) capsule (Vitamin D3) Active Mal guard pads 6 x 11 #208 ea 11/21/23 Cleansing wipes #100 ea 11/21/23 Disposable 30x30 polymer pads #90 ea 11/21/23 heavy floweds Powder free synthetic exam gloves #100 ea 11/21/23 metaxalone 800 mg tablet 800 mg PO BEDTIME #10 tabs 12/25/23 docusate sodium 100 mg capsule 100 mg PO BID PRN constipation 30 01/28/24 days #60 caps lorazepam 1 mg tablet (Ativan) 1 mg PO BEDTIME PRN anxiety/sleep 03/03/24 #10 tabs omeprazole 40 mg capsule,delayed 40 mg PO DAILY #30 caps 04/01/24 release pen needle, diabetic 32 gauge x #1,200 ea 04/08/24 (BD Ultra-Fine Brittany Pen Needle) aspirin 81 mg tablet,delayed 81 mg PO DAILY #90 tabs 04/23/24 release atorvastatin 80 mg tablet 80 mg PO DAILY 90 days #90 tabs 04/23/24 lisinopril 10 mg tablet 10 mg PO DAILY 90 days #90 tabs 04/23/24 metoprolol tartrate 50 mg tablet 50 mg PO BID #180 tabs 04/23/24 naproxen 500 mg tablet 500 mg PO BID PRN pain #60 tabs 04/23/24 oxybutynin chloride 10 mg 10 mg PO DAILY #90 tabs 04/23/24 tablet,extended release 24 hr paroxetine HCl 40 mg tablet 40 mg PO DAILY #90 tabs 04/23/24 tamsulosin 0.4 mg capsule (Flomax) 0.4 mg PO BEDTIME #90 caps 04/23/24 metformin 500 mg tablet,extended 1,500 mg (3 x 500 mg) PO DAILY 90 04/29/24 release 24 hr days #270 tabs lidocaine 5 % topical patch 1 patch topical DAILY #30 ea 05/20/24 albuterol sulfate 90 mcg/actuation 2 puff PO Q4-6H PRN for wheezing 05/24/24 aerosol inhaler #8.5 grams dicyclomine 20 mg tablet 20 mg PO TID PRN Abdominal 06/04/24 Discomfort #20 tabs ondansetron 4 mg disintegrating 4 mg PO Q6-8H PRN nausea and 06/04/24 tablet vomiting #7 tabs polyethylene glycol 3350 17 17 g PO DAILY #119 grams 06/13/24 gram/dose oral powder (Miralax) insulin lispro 100 unit/mL 15 - 20 unit (0.15 - 0.2 mL) 06/21/24 subcutaneous pen subcut TID #15 mL glucose 3.75 gram chewable tablet 15 g (4 x 3.75 gram) PO .every 15 07/20/24 (TRUEplus Glucose) minutes PRN low blood sugar #10 tabs dextrose 15 gram/32 mL oral gel 15 g (32 mL) PO Q15M PRN 07/23/24 packet (TRUEplus Glucose) hypoglycemia #128 mL Allergies Allergy/AdvReac Type Severity Reaction Status Date / Time hydromorphone [Dilaudid] AdvReac Unknown confusion Verified 08/12/24 01:55 From DILAUDID AdvReac Severe CONFUSION/H Uncoded 08/12/24 01:55 ALLUCIATION S From PERCOCET AdvReac Intermediate AGITATION Uncoded 08/12/24 01:55 Review of Systems Review of Systems: Unable to obtain secondary to dementia Yes all other systems are reviewed and are negative Constitutional: Constitutional: Reports fatigue and Reports fever(s) Endocrine: Endocrine: Reports fatigue PMFSH Past Medical History Attestation statement: The following information was validated with the patient. Medical History Decreased oral intake Sore throat Weakness At risk for elder neglect Anxiety Type 2 diabetes mellitus with neurologic complication Gastritis and duodenitis Vitamin B12 deficiency Hyperkalemia Intertrigo Major depressive disorder, recurrent Benign prostatic hyperplasia with urinary frequency Constipation Obstructive sleep apnea Vitamin D deficiency Diabetic polyneuropathy Diabetes mellitus Obesity (BMI 30-39.9) Benign essential hypertension Pure hypercholesterolemia Coronary artery disease Surgical History Hx of cataract extraction (~2011) History of quadruple bypass (~2005) Hx of cystoscopy History of prostate surgery (~12/04/10) Hx of cholecystectomy (~2007) Family History Family History Father Lung cancer Mother Diabetes Hypertension Stomach cancer Social History Social History Household Members: None Housing: Apartment Do you presently have visiting nurse or other home services: No Alcohol intake: never Patient Tobacco Use Status: Former Tobacco user e-Cigarette/Vaping Use: Never Used Second Hand Smoke Exposure: No Advance Directives: Yes Advance Directives on File: Yes Advance Directives Date on File: 07/24/23 service: No Current occupational status: disabled Cognitive needs: Yes (cane) Hearing needs: No Vision needs: Yes Physical Exam ED Vital Signs: Vital Signs - 24 hr 08/12/24 01:51 Temperature 98.8 F Pulse Rate 63 Respiratory Rate 20 Blood Pressure 145/77 H Pulse Oximetry 95 Oxygen Delivery Method Room Air BMI result Body Mass Index 35.9 Const Other: Awake, no evidence of head trauma on exam Orientation/consciousness: oriented to person Neck Other: No palpable mid line tenderness, not in a C-collar, the patient refused when EMS arrived Chest Other: No deformity noted over left lateral chest wall Resp Effort & Inspection: normal respiratory effort Cardio Other: Normal peripheral perfusion Skin Other: Warm dry no rash Neuro General: oriented to person, no focal motor deficits and CN's II-XI intact bilaterally Psych Other: Uncooperative Medications Administered Discontinued Medications Generic Name Dose Route Start Last Admin Trade Name Femi RIVERA Reason Stop Dose Admin Lorazepam 2 mg 08/12/24 02:54 08/12/24 03:02 Lorazepam 1 Mg Tablet PO 08/12/24 02:55 2 mg ONCE ONE Administration Medical Decision Making Medical Decision Making MDM Narrative: 69-year-old male with a history of dementia, psychosis, prior alcohol abuse, diabetes, diabetic neuropathy, hypertension, hyperlipidemia, known coronary artery disease, gait instability who uses a walker to ambulate at home, COPD, asthma, overactive bladder, BPH, morbid obesity who presents after unwitnessed fall at home. Patient is not a reliable historian secondary to his underlying cognitive impairment. His niece is at bedside, he states he got up from bed to use the bathroom, subsequently falling backwards, hitting his head, but no loss of consciousness. The patient does take aspirin. Patient complains of head neck back and left lateral chest wall pain. Problem: Dementia, use of aspirin History: Per patient which is limited I have considered the following differential diagnoses: Intracranial hemorrhage, cervical spine injury, compression fracture, rib fracture Plan: The patient is refusing assessment until we medicate him with the antianxiety medicine. I have no suspicion for any acute injury, there was no sign of trauma on exam. Patient initially states that he slid out of bed. He then states he was up and walking and fell backwards. The pictures unclear, the fall was witnessed. Given the patient is not a reliable historian, we will be obtaining imaging of head neck chest abdomen. Giving a 1 time dose of oral Ativan. I do feel there was an element of malingering and medication seeking behavior. I am holding on ordering labs, again, I have low suspicion for acute injury. I have independently reviewed the following tests: CT scans pending at the time of sign-out. Discharge Plan Discharge Clinical Impression: Fall at home Patient Disposition: Home, Self-Care Instructions: Fall Prevention for Older Adults (ED), How to Get a Person out of Bed (DC) Additional Instructions: CT scans of your head, neck, chest and abdomen and pelvis were obtained, there were no acute abnormalities. See home care instructions. You can use [id number] Tylenol 1000 mg taken every 8 hours with food. Follow up with your primary care provider as needed. Prescriptions: No Action fluticasone propionate 50 mcg/actuation spray,suspension 1 spray intranasal DAILY Qty: 16 2RF (DME) pen needle, diabetic [Lite Touch Insulin Pen Viper] 31 gauge x 5/16 needle See Rx Instructions .Route Qty: 100 12RF Rx Instructions: Use 3 times daily (DME) lancets [OneTouch Delica Lancets] 33 gauge misc See Rx Instructions .Route Qty: 100 12RF Rx Instructions: As directed 3 times a day metoclopramide HCl [Reglan] 10 mg tablet 10 mg PO AC PRN (Reason: nausea and vomiting) Qty: 20 0RF OneTouch Ultra Blue Test Strip Strip 1 strip miscellaneous TID Qty: 100 3RF (DME) blood-glucose meter [OneTouch Ultra2 Meter] [facility] [place] See Rx Instructions .ROUTE TID Qty: 1 Rx Instructions: test 3 times per day (DME) OneTouch Ultra Test Strip See Rx Instructions .Route Qty: 100 8RF Rx Instructions: test 3 times per day (DME) pen needle, diabetic [BD Ultra-Fine Orig Pen Needle] 29 gauge x 1/2 needle See Rx Instructions .Route Qty: 100 12RF Rx Instructions: 3 times daily (DME) WALKER See Rx Instructions .Route .MEDSUPPLY Qty: 1 0RF Rx Instructions: As directed (DME) Monthly Medication Organizer (Med-Box) 0 .Route .MEDSUPPLY (DME) monthly medication organizer (med box) See Rx Instructions .Route .MEDSUPPLY Qty: 1 0RF Rx Instructions: monthly medication organizer box; (DME) Semi-Electric Hospital Bed See Rx Instructions .Route .MEDSUPPLY Qty: 1 0RF Rx Instructions: As directed cholecalciferol (vitamin D3) [Vitamin D3] 50 mcg (2,000 unit) capsule 50 mcg PO DAILY Qty: 90 3RF (DME) Disposable 30x30 polymer pads heavy floweds See Rx Instructions .Route .MEDSUPPLY Qty: 90 11RF Rx Instructions: As directed (DME) Active Mal guard pads 6 x 11 See Rx Instructions .Route .MEDSUPPLY Qty: 208 0RF Rx Instructions: As directed (DME) Cleansing wipes See Rx Instructions .Route .MEDSUPPLY Qty: 100 11RF Rx Instructions: As directed (DME) Powder free synthetic exam gloves small See Rx Instructions .Route .MEDSUPPLY Qty: 100 11RF Rx Instructions: As directed docusate sodium 100 mg capsule 100 mg PO BID PRN (Reason: constipation) 30 Days Qty: 60 3RF omeprazole 40 mg capsule,delayed release(DR/EC) 40 mg PO DAILY Qty: 30 3RF (DME) pen needle, diabetic [BD Ultra-Fine Brittany Pen Needle] 32 gauge x 5/32 needle See Rx Instructions .Route Qty: 1200 11RF Rx Instructions: test 3 times daily aspirin 81 mg tablet,delayed release (DR/EC) 81 mg PO DAILY Qty: 90 0RF lisinopril 10 mg tablet 10 mg PO DAILY 90 Days Qty: 90 1RF metoprolol tartrate 50 mg tablet 50 mg PO BID Qty: 180 1RF naproxen 500 mg tablet 500 mg PO BID PRN (Reason: pain) Qty: 60 0RF metformin 500 mg tablet extended release 24 hr 1,500 mg PO DAILY 90 Days Qty: 270 0RF lidocaine 5 % adhesive patch,medicated 1 patch topical DAILY Qty: 30 0RF Rx Instructions: leave on most painful area for up to 12 hrs albuterol sulfate 90 mcg/actuation HFA aerosol inhaler 2 puff PO Q4-6H PRN (Reason: for wheezing) Qty: 8.5 2RF insulin lispro 100 unit/mL insulin pen 15 - 20 unit subcut TID Qty: 15 3RF glucose [TRUEplus Glucose] 3.75 gram tablet,chewable 15 g PO .every 15 minutes PRN (Reason: low blood sugar) Qty: 10 5RF dicyclomine 20 mg tablet 20 mg PO QID PRN (Reason: abdominal pain) Qty: 20 0RF ondansetron HCl 4 mg tablet 4 mg PO Q6H PRN (Reason: nausea and vomiting) Qty: 14 0RF phenazopyridine [Pyridium] 200 mg tablet 200 mg PO TID 2 Days Qty: 6 0RF lorazepam [Ativan] 1 mg tablet 1 mg PO BEDTIME PRN (Reason: anxiety/sleep) Qty: 10 0RF dicyclomine 20 mg tablet 20 mg PO TID PRN (Reason: Abdominal Discomfort) Qty: 20 0RF ondansetron 4 mg tablet,disintegrating 4 mg PO Q6-8H PRN (Reason: nausea and vomiting) Qty: 7 0RF polyethylene glycol 3350 [Miralax] 17 gram/dose powder 17 g PO DAILY Qty: 119 0RF (DME) SHOWER CHAIR See Rx Instructions .Route .MEDSUPPLY Qty: 1 0RF Rx Instructions: As directed (DME) SHOWER CHAIR See Rx Instructions .Route .MEDSUPPLY Qty: 1 0RF Rx Instructions: As directed (DME) insulin syr/ndl U100 half gareth 0.5 mL 30 gauge x 5/16 syringe See Rx Instructions .Route Qty: 100 12RF Rx Instructions: Use 4 times daily gabapentin 400 mg capsule 400 mg PO TID Qty: 270 1RF (DME) walker Misc See Rx Instructions .Route Qty: 1 0RF Rx Instructions: As directed cyanocobalamin (vitamin B-12) 1,000 mcg tablet 1,000 mcg PO DAILY 90 Days Qty: 90 3RF (DME) FreeStyle Iwona 3 Sensor Device See Rx Instructions .ROUTE .MEDSUPPLY Qty: 2 11RF Rx Instructions: As directed (DME) FreeStyle Iwona 3 Hardy Misc See Rx Instructions .ROUTE .MEDSUPPLY Qty: 1 0RF Rx Instructions: as directed metaxalone 800 mg tablet 800 mg PO BEDTIME Qty: 10 0RF atorvastatin 80 mg tablet 80 mg PO DAILY 90 Days Qty: 90 1RF oxybutynin chloride 10 mg tablet extended release 24hr 10 mg PO DAILY Qty: 90 0RF tamsulosin [Flomax] 0.4 mg capsule 0.4 mg PO BEDTIME Qty: 90 2RF paroxetine HCl 40 mg tablet 40 mg PO DAILY Qty: 90 0RF TRUEplus Glucose 15 gram/32 mL gel in packet 15 g PO Q15M PRN (Reason: hypoglycemia) Qty: 128 3RF Rx Instructions: until symptoms of low blood sugar are controlled insulin glargine U-300 conc [Toujeo Max U-300 SoloStar] 300 unit/mL (3 mL) insulin pen 35 unit subcut BEDTIME Print Language: Maltese
[2024-08-12 04:55] VITALS: BP 184/72; PULSE 54; RESP 12; TEMP 36.5; O2SAT 93
--- NOTE | 2024-08-12 10:45 | MHC.EDTECH ---
male purewick placed on pt with excellent tolerance. RN made aware
[2024-08-12 13:35] VITALS: BP 195/78; PULSE 56; RESP 18; TEMP 36.6; O2SAT 95
[2024-08-12 13:44] LABS: Appearance Urine Clear; Color Urine Yellow; Glucose Urine UA Negative (Negative); Leukocyte Esterase Urine Negative (Negative); Nitrite Urine Negative (Negative); PH >= 9.0 (5.0-9.0); UMIC TRIGGER UACC YES; Urine Blood Negative (Negative); Urine Ketones Negative (Negative); Urine Protein 300 (3+) mg/dL (Neg-Trace)
[2024-08-12 13:48] LABS: Bacteria Urine None Seen (None Seen); Hyaline Casts Urine 0-2 /LPF (0-2); RBC Urine 0-2 /HPF (0-2); Squamous Epithelial Cell Urine 0-2 /HPF (0-2); WBC Urine 0-5 /HPF (0-5)
[2024-08-12 15:33] VITALS: BP 192/75; PULSE 56; RESP 12; TEMP 36.7; O2SAT 93
[2024-08-12 16:08] VITALS: BP 192/75; PULSE 56; RESP 12; TEMP 36.7; O2SAT 93
== END 2024-08-12 16:00 | disposition home or self-care (01) ==
PROVIDERS: Emergency Provider Emergency Medicine
DX: S09.90XA Unspecified injury of head, initial encounter (principal); R10.2 Pelvic and perineal pain; M54.6 Pain in thoracic spine; M54.2 Cervicalgia; R51.9 Headache, unspecified; I25.10 Atherosclerotic heart disease of native coronary artery without angina pectoris; G31.84 Mild cognitive impairment of uncertain or unknown etiology; W19.XXXA Unspecified fall, initial encounter; Y93.9 Activity, unspecified; Y92.9 Unspecified place or not applicable; Y99.8 Other external cause status; Z91.81 History of falling; Z79.899 Other long term (current) drug therapy; Z79.4 Long term (current) use of insulin
CPT/HCPCS: 70450; 71250; 72125; 74176; 81001; 99284

== ENCOUNTER → 2024-08-12 02:55 | Outpatient (BNV) | payer OTHER, SELFPAY | PROVIDERS: Emergency Provider Emergency Medicine; Visit Provider Radiology Diagnostic Radiology | DX: M54.9 Dorsalgia, unspecified (principal); R07.89 Other chest pain; M54.2 Cervicalgia | CPT/HCPCS: 70450; 71250; 72125; 74176 ==

== ENCOUNTER 2024-10-29 13:03 | Outpatient (AMB) | payer OTHER, SELFPAY ==
--- OUTSIDE RECORDS SUMMARY | 2024-10-29 13:06 | XMS_ITS ---
Author Name Tammy Vega NP Address [address] [place] [address] Phone [phone] [facility] Care Team Providers Care Hand Shaker Name Role Phone Cale Vegakiara Unavailable [phone] [facility] Unavailable Unavailable Unavailable Unavailable Unavailable Unavailable Unavailable [facility] Unavailable HungJerry carrillo Unavailable [phone] Reason for Referral Not Available Allergies, adverse [...] No Data Available B-D PEN NDL SHRT [id number](07/23) ANNAMARIE USE TO INJECT 3 TIMES DAILY 2021-06-05 2023-12-12 Clotrimazole-Betamethasone 1-0.05 % Crm APPLY TOPICALLY TO THE AFFECTED AREA TWICE DAILY FOR 15 DAYS 2021-11-26 No Data Available Lisinopril 10 mg Tab TAKE 1 TABLET BY [facility] DAILY 2022-02-05 2024-06-01 Trulicity 1.5 [...] MOUTH EVERY DAY 2022-04-25 No Data Available oxyBUTYnin Chloride ER 10 mg Tab ER 24hr TAKE 1 TABLET BY MOUTH ONCE DAILY 2022-04-25 No Data Available Insulin Lispro (1 Unit Dial) 100 UNIT/ML Solution Pen-injector Subcutaneous INJECT 2-12 UNITS SUBCUTANEOUSLY TWICE DAILY DIRECTED 2022-03-12 No Data Available OneTouch Delica Plus [id number] Miscellaneous TEST BLOOD SUGAR THREE TIMES DAILY [...] 20 mg Tab TAKE 2 TABLETS BY [facility] DAILY x 3days 2022-10-11 2022-10-18 Aspirin 81 mg Tab delayed rel take 1 tab let orally once daily-take with food to avoid stomach upset- follow up with PCP for ongoing monitoring and management 2022-10-14 No Data Available Albuterol Sulfate HFA 108 (9 0 Base) MCG/ACT Aerosol Solution Inhalation 2 puffs Q 4-6H PRN cough, wheezing 2022-10-14 No Data Available Diclofenac Sodium 1 % Gel 4 grams topica lly to affected area 4 times per day PRN pain 2023-04-04 No Data Available hydrOXYzine 25 mg [...] TAKE 1 TAB LET BY MOUTH AT BEDTIME- follow up with PCP for refills and ongoing monitoring and management 2024-06-07 No Data Available Clopidogrel Bisulfate 75 mg Tab take 1 tablet by mouth daily 2024-06-09 2024-09-22 Penicillin V Potassium 500 m g Tab TAKE 1 TABLET BY MOUTH THREE TIMES DAILY 2024-06-11 No Data Available hydrOXYzine 25 mg Tab TAKE 1 TABLET BY M OUTH EVERY 6 HOURS NEEDED FOR ANXIETY 2024-06-17 No Data Available Clotrimazole-Betamethasone 1-0.05 % Crm 1 application topically to affected area 2 times per day for 14 2024-09-16 No Data Available BD ULTRA-FINE SHAJI PEN NEEDL E 32 GAUGE X 5/32 USE THREE TIMES DAILY 2024-04-08 No Data Available Lisinopril 10 mg Tab TAKE 1 TABLET BY [facility] EVERY DAY 2024-04-23 No Data Available D3 SUPER STRENGTH 50 MCG (1999 UT) CAPS No Data Available 2023-11-19 No Data Available Problem List Problem Status Onset Date Resolved Date Synopsis BPH (benign prostatic hyperplasia) Active 2022-02-19 N/A StableTamsulosin Monitor urine output, continue taking medication as prescribed, f/u PCP [id number], contact us if develop acute decrease in urine output Hyperlipidemia Active 2022-02-19 N/A StableAtor vastatin Discussed dietary and exercise interventions, f/u w/ PCP q6-12 months Morbid (severe) obesity due to excess calories Active 2022-02-25 N/A BMI-41.54 encourage healthy food choices Coronary artery disease Active 2022-02-23 N/A S uspectAdvised to eat a healthy diet include emphasizing [...] Limit ETOH intake. If you smoke, quit smoking. MDD (major depressive disorder), recurrent episode, moderate Active 2023-04-04 N/A Large Anxiety component (exacerbated end of year 2022)taking [...] 05/02/23: hydroxyzine is helping with panic attacks PRN1.12.31: continues to see psychiatrist. Anxiety controlled with medications. Osteoarthritis, multiple sites Active 2023-12-18 N/A at risk for fall s uses PRN diclofenac gel, gabapentin, PRN naproxen Fall prevention TIPS: Wear sensible shoes. Remove home hazards (Get rid of all rugs/mats in your home). Light up your living space (keep a flash light next to your bed for night time). Use assistive devices. Unsteady gait Active 2023-12-18 N/A Unsteady ga it R26.81 d/t OA M15.9, Low back pain M54.50at risk for fallsFall prevention TIPS: Wear sensible shoes. Remove home hazards (Get rid of all rugs/mats in your home). Light up your living space (keep a flash light next to your bed for night time). Use assistive devices.rollator walker ordered 12/18/23 Anxiety Active 2024-03-08 N/A Patient report s that he went into the ED on [...] to seek medical assistance or to call [facility]. Low back pain Active 2022-02-23 N/A StableCymba ltaContinue taking medications, practice core ROM exercises as tolerable, contact us if develop increase in low back pain without reliefER visit on 03/19/[address] [facility] for back pain. He reports feeling better, he will follow up with PCP. Denies any current concerns. Abdominal pain Active 2024-06-04 N/A 06/04/24: E R visit on 06/03/24 for severe abdominal pain. Niece reports the patient's symptom started in the evening, denies other symptoms. She suggested calling CB, but the patient insisted in going to the ER. She reports that the patient was diagnoses with a possible virus, prescribed a medication (unable to recall, MR requested). Reports that the patient is feeling better, denies any current concerns. History of fallUnsteady gaitBack pain Active 2023-04-04 N/A 06/03/24: Patient was hospitalized on 05/21-05/24 post fall at [facility]. Cg reports the patient had a fall and hit head on a bureau. The patient is currently walking with a walker, denies any current concerns09/22/24: pt had fall at 0330- no apparent injury- did hit head- no c/o LEON, no changes in vision or mental status- no N&V- has been baseline today- eating and drinking ok- moving arms and legs- does have acute on chronic back pain- managed with Tylenol and naproxen - will auth refill for diclofenac gel- use ice/heat for comfort- Pt is not on Plavix anymore- does take daily ASA- no report of any bleeding or bruising - has red spot on back of head- does not c/o any swelling or pain- Continue meds and plan of care as instructed- conservative measures for s/sx mgt and comfort- continue to monitor- f/u with PCP in the morning- TO ED with any emergent needs or any s/sx of distress - fall/safety precautions 09/24/24: Follow up visit post fall, denies any new or acute symptoms. Patient is using walker in the home. Fall precautions reviewed. Incontinence Active 2024-06-08 N/A 06/03/24: Cg requesting incontinence supplies, order placed on 06/08/24.09/14/24: Cg requesting washable bed chux and wipes. I provided number for Rachelle to add to current order. Chronic obstructive airway diseasePulmonary emphysema, unspecified emphysema type Active 2022-02-19 N/A StableAlbuterol, FloventMonitor O2, take medications as Rx, continue f/u care w/ PCP [id number], contact us if you develop respiratory [id number]/16/2024 patient states he feels well at the moment. 06/03/24: Denies dyspnea Other problems related to medical facilities and other health care Active 2024-03-08 N/A DIABETE S CONTINGENCY PLANLast updated: 06/09/2024Member to call for the following symptoms: Blood sugar <70 / Blood sugar >300 / DeliriumPlanned intervention: Increase short-acting insulin to lispro 2 units/ Encourage adequate water intake/ Limit high-sugar and high-carbohydrate foods/ Go for a walkPlease call if you experience ANDOMINAL PAIN, swelling, constipation, diarrhea, nausea or vomitingPlanned intervention: Prescribe medication as appropriateFALL CONTINGENCY PLANMember to call for the following symptoms: Fall / Refusing to use walker / WeaknessPlanned intervention: Encourage extra fluid intake / Assess for change in mental status and provide reassurance if none (patient's Baseline is a/o x3) / Review importance of sitting for two to three minutes prior to standing after laying down' Hypertension Active 2022-02-19 N/A StablePt den ies monitoring BPLisinopril, MetoprololDiscussed dietary and exercise interventions, f/u w/ PCP q6-12 months, contact us develop emergent HTN s/sx1/05/03BP 150/76 today but in pain and 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 Please keep a log and we will FU.01/14/2024 patient states that his BP is controlled and take his medication 06/09/24: BP elevated 167/90 and 144/92. Taking furosemide, metoprolol and hydralazine (changed from lisinopril) 05/24/24. Has appt with PCP on 08/05/24 to discuss changes.Monitor sodium and water intake.Regular exercise, continue meds as directed.Contact CB with new, continued or worsening symptoms.F/U with JILLIAN 06/11/24 Diabetic peripheral neuropathy associated with type 2 diabetes mellitus Active 2022-02-19 N/A StableGabapentin , Lantus, TrulicityMonitor sensation of BLE, continue taking [...] continued or worsening symptoms.F/U with JILLIAN 06/11/24 History of recent hospitalization Active 2024-02-27 N/A Patient reports that on 02/12/2024 and was discharged the same date.- not admittedPatient reports that he was in the hospital due to having respiratoy infection- thought he had COVID-19, he fell at home and decided to get looked at. Patient was hospitalized on 05/21-05/24 post fall at [facility].06/11/24: Cg Daniela reports that the patient is currently in the [facility]. Patient was send by first officer and flight instructor due to high BP, BS and possible infection. Cg reports that the patient complained of sore throat today. Reports BS yesterday 168 and he was feeling well. Scheduled a follow up for 06/15. Dx with strep throat, d/c with abx, MR requested. Diabetes mellitus with other complicationsHLD Active 2022-02-19 N/A Type 2 di abetes mellitus with HLDA1C 9% [id number] 11/7% 5Continue to f/u w/ first officer and flight instructor q3-6 months, monitor BG levels, discussed dietary and exercise interventions, contact us if develop hyperglycemia s/s06/03/24: PICKING [employer]W SUPERVISOR/Ninoska Crystal reports that she recently restarted care [...] reports BS 260 (without am insulin). Reports PICKING CREW SUPERVISOR will administer insulin soon. Insulin regimen updated. He will call with any concerns. Message left to Daniela.09/14/24: Cg Daniela reports that the patient A1C decreased to 9% recently. She has helped the patient make dietary changes, including changing regular soda to zero sugar alternative. Patient reports that he feels stable at this time. Medication refill Active 2024-09-22 N/A eRx Ref ill Aspirin 81 mg Tab delayed rel take 1 tablet orally once daily-take with food to avoid stomach upset- follow up with PCP for ongoing monitoring and management #30 tablet QAi1mAt Refill Diclofenac Sodium 1 % Gel 4 grams topically to affected area 4 times per day PRN pain #100 gram [id number] Refill QUEtiapine Fumarate 25 mg Tab TAKE 1 TABLET BY MOUTH AT BEDTIME- follow up with PCP for refills and ongoing monitoring and management #30 tablet RFx0 Encounters Encounters Type Facility Date of Service Diagnosis/Co mplaint New patient,40-59min; chronic exacerbation, 2 stable chronic or 1 acute illness add add modifier 95 for video (do not use for phone, instead use 10145-96) [facility] ([place]) 02/19/2022 Morbid (severe) obesity due to excess caloriesBody mass index (BMI) 40.0-44.9, adultChronic obstructive pulmonary disease, unspecifiedEnlarged prostate without lower urinary tract symptomsType 2 diabetes mellitus with diabetic polyneuropathyEssential (primary) hypertensionHyperlipidemia, unspecifiedMajor depressive disorder, single episode, in full remissionLow back pain, unspecifiedAthscl heart disease of [place] coronary artery w/o ang pctrsType 2 diabetes mellitus with other specified complicationLong term (current) use of insulin New patient,40-59min; chronic exacerbation, 2 stable chronic or 1 acute illness add add modifier 95 for video (do not use for phone, instead use 87049-75) [facility], [place] 02[place]19/2022 New patient,40-59min; chronic exacerbation, 2 stable chronic or 1 acute illness add add modifier 95 for video (do not use for phone, instead use 14546-17) [facility], [place] 02/19/2022 New patient,40-59min; chronic exacerbation, 2 stable chronic or 1 acute illness add add modifier 95 for video (do not use for phone, instead use 75993-28) [facility], [place] 02/19/2022 New patient,40-59min; chronic exacerbation, 2 stable chronic or 1 acute illness add add modifier 95 for video (do not use for phone, instead use 35679-23) [facility], [place] 02/19/2022 New patient,40-59min; chronic exacerbation, 2 stable chronic or 1 acute illness add add modifier 95 for video (do not use for phone, instead use 58302-99) [facility], ([place] 02/19/2022 RN, CN or CP time with patient by phone; use with 1111F, BP, A1c or other CPTII codes [facility], ([place]) 10/14/2022 Encounter for other specifie d aftercare RN, CN or CP time with patient by phone; use with 1111F, BP, A1c or other CPTII codes [facility], ([place] 10/14/2022 Estab. patient 30-39min; chronic exacerbation, 2 stable chronic or 1 acute illness add add modifier 95 for video, (do not use for phone, instead use 89346-87) [facility], [place] 10/18/2022 Type 2 diabetes mellitus wit [...] (do not use for phone, instead use 32753-04) [facility], [place] 10/18/2022 Estab. patient 30-39min; chronic exacerbation, 2 stable chronic or 1 acute illness add add modifier 95 for video, (do not use for phone, instead use 81116-33) [facility], ([place] 10/18/2022 Estab. patient 30-39min; chronic exacerbation, 2 stable chronic or 1 acute illness add add modifier 95 for video, (do not use for phone, instead use 06101-57) [facility], ([place] 10/18/2022 Estab. patient 30-39min; chronic exacerbation, 2 stable chronic or 1 acute illness add add modifier 95 for video, (do not use for phone, instead use 83285-34) [facility], ([place] 10/18/2022 Estab. patient 30-39min; chronic exacerbation, 2 stable chronic or 1 acute illness add add modifier 95 for video, (do not use for phone, instead use 97993-23) [facility], [place] 10/18/2022 Estab. patient 30-39min; chronic exacerbation, 2 stable chronic or 1 acute illness add add modifier 95 for video, (do not use for phone, instead use 87266-20) [facility], [place] 10/18/2022 Estab. patient 30-39min; chronic exacerbation, 2 stable chronic or 1 acute illness add add modifier 95 for video, (do not use for phone, instead use 56928-18) [facility] [place] 10/18/2022 Estab. patient 30-39min; chronic exacerbation, 2 stable chronic or 1 acute illness add add modifier 95 for video, (do not use for phone, instead use 37155-30) [facility], [place] 10/18/2022 Estab. patient 30-39min; chronic exacerbation, 2 stable chronic or 1 acute illness add add modifier 95 for video, (do not use for phone, instead use 13222-76) [facility], ([place] 10/18/2022 Unlisted special service; to be used for medical record reviews and reporting CPTII codes (1111F, etc) [facility] ([place] 11/25/2022 Other specified health statu s Unlisted special service; to be used for medical record reviews and reporting CPTII codes (1111F, etc) [facility], [place] 11/25/2022 Unlisted special service; to be used for medical record reviews and reporting CPTII codes (1111F, etc) [facility], [place] 11/25/2022 No Data Available [facility], [place] 02/24/2023 Type 2 diabetes mellitus wit h other specified complicationEmphysema, unspecifiedEnlarged prostate without lower urinary tract symptomsType 2 diabetes mellitus with diabetic polyneuropathyEssential (primary) hypertensionHyperlipidemia, unspecifiedMajor depressive disorder, single episode, in full remissionLow back pain, unspecifiedAthscl heart disease of [place] coronary artery w/o ang pctrsMorbid (severe) obesity due to excess caloriesBody mass index (BMI) 40.0-44.9, adult No Data Available [facility] [place] 02/24/2023 No Data Available [facility] [place] 02/24/2023 No Data Available [facility] [place] 02/24/2023 No Data Available [facility] [place] 02/24/2023 No Data Available [facility] [place] 02/24/2023 No Data Available [facility] [place] 04/04/2023 Type 2 diabetes mellitus wit [...] disorder, unspecified No Data Available [facility] 04/04/2023 No Data Available [facility] 04/04/2023 No Data Available [facility] [place] 04/04/2023 No Data Available [facility] [place] 04[place]04[place]2023 No Data Available [facility], [place] 04/04/2023 No Data Available [facility] [place] 04/04/2023 No Data Available [facility], [place] 04/04/2023 No Data Available [facility], [place] 05/02/2023 Type 2 diabetes mellitus wit h other specified complicationEmphysema, unspecifiedEnlarged prostate without lower urinary tract symptomsType 2 diabetes mellitus with diabetic polyneuropathyEssential (primary) hypertensionHyperlipidemia, unspecifiedLow back pain, unspecifiedAthscl heart disease of [place] coronary artery w/o ang pctrsBody mass index (BMI) 40.0-44.9, adultMorbid (severe) obesity due to excess caloriesOther problems related to medical facilities and other health careUnspecified fall, initial encounterAnxiety disorder, unspecifiedMajor depressive disorder, recurrent, moderate No Data Available [facility], [place] 05/02/2023 No Data Available [facility] [place] 05/02/2023 No Data Available [facility] [place] 05/02/2023 No Data Available [facility] [place] 05/02/2023 No Data Available [facility] [place] 05/02/2023 No Data Available [facility] [place] 05/20/2023 Type 2 [...] unspecifiedUnspecified fall, subsequent encounter No Data Available [facility] [place] 05/20/2023 No Data Available [facility] [place] 05/20/2023 No Data Available [facility], [place] 05/20/2023 No Data Available [facility] [place] 05/20/2023 No Data Available [facility] [place] 05/20/2023 No Data Available [facility] [place] 07/08/2023 Type 2 diabetes mellitus wit h other specified complicationHyperlipidemia, unspecifiedLong term (current) use of insulinLong-term (current) use of injectable non-insulin antidiabetic drugsOther problems related to medical facilities and other health care No Data Available [facility], [place] 07/31/2023 Altered mental status, unspecified No Data Available [facility], [place] 08/26/2023 Altered mental status, unspecifiedOther problems related to medical facilities and other health care No Data Available [facility], [place] 10/02/2023 Type 2 diabetes mellitus wit h other specified complicationHyperlipidemia, unspecifiedOther problems related to medical facilities and other health careAltered mental status, unspecified Estab. patient 30-39min; chronic exacerbation, 2 stable chronic or 1 acute illness add add modifier 95 for video, (do not use for phone, instead use 35330-74) [facility] [place] 12/10/2023 Type 2 diabetes mellitus wit [...] (do not use for phone, instead use 50058-92) [facility], [place] 12/10/2023 Estab. patient 30-39min; chronic exacerbation, 2 stable chronic or 1 acute illness add add modifier 95 for video, (do not use for phone, instead use 51386-84) [facility] [place] 12/10/2023 Estab. patient 30-39min; chronic exacerbation, 2 stable chronic or 1 acute illness add add modifier 95 for video, (do not use for phone, instead use 08118-80) [facility] [place] 12/10/2023 Estab. patient 30-39min; chronic exacerbation, 2 stable chronic or 1 acute illness add add modifier 95 for video, (do not use for phone, instead use 93325-41) [facility] [place] 12/10/2023 Estab. patient 30-39min; chronic exacerbation, 2 stable chronic or 1 acute illness add add modifier 95 for video, (do not use for phone, instead use 69978-46) [facility] [place] 12/10/2023 Estab. patient 30-39min; chronic exacerbation, 2 stable chronic or 1 acute illness add add modifier 95 for video, (do not use for phone, instead use 28530-79) [facility], [place] 12/10/2023 Estab. patient 30-39min; chronic exacerbation, 2 stable chronic or 1 acute illness add add modifier 95 for video, (do not use for phone, instead use 11492-42) [facility] [place] 12/10/2023 Estab. patient 30-39min; chronic exacerbation, 2 stable chronic or 1 acute illness add add modifier 95 for video, (do not use for phone, instead use 84346-21) [facility] [place] 12/10/2023 Estab. patient 30-39min; chronic exacerbation, 2 stable chronic or 1 acute illness add add modifier 95 for video, (do not use for phone, instead use 39476-55) [facility], [place] 12/10/2023 No Data Available [facility], [place] 12/18/2023 Major depressive disorder, recurrent, moderateType 2 diabetes mellitus with other specified complicationHyperlipidemia, unspecifiedPolyosteoarthritis, unspecifiedUnsteadiness on feetAnxiety disorder, unspecifiedOther problems related to medical facilities and other health careLow back pain, unspecifiedUnspecified fall, initial encounter No Data Available [facility] [place] 12/18/2023 No Data Available [facility] [place] 12/18/2023 No Data Available [facility] [place] 12/18/2023 No Data Available [facility] [place] 12/18/2023 No Data Available [facility] [place] 01/14/2024 Essential (primary) hypertensionType 2 diabetes mellitus with other specified complicationNicotine dependence, unspecified, in remissionHyperlipidemia, unspecifiedOther problems related to medical facilities and other health care No Data Available [facility] [place] 01/14/2024 No Data Available [facility] [place] 01/14/2024 No Data Available [facility] [place] 01/14/2024 No Data Available [facility] [place] 01/14/2024 No Data Available [facility] [place] 01/14/2024 No Data Available [facility] [place] 02/27/2024 Other malaiseRepeated fallsPersonal history of other medical treatment No Data Available [facility] [place] 02/27/2024 No Data Available [facility] [place] 02/27/2024 No Data Available [facility] [place] 02/27/2024 No Data Available [facility] [place] 03/08/2024 Anxiety disorder, unspecifiedAcute upper respiratory infection, unspecifiedOther problems related to medical facilities and other health care No Data Available [facility] [place] 03/08/2024 No Data Available [facility] [place] 03/08/2024 Estab. patient 10-29min; 1 minor problem; add add modifier 95 for video, modifier 93 for phone [facility] [place] 03/12/2024 Acute upper respiratory infection, unspecifiedOther problems related to medical facilities and other health care Estab. patient 10-29min; 1 minor problem; add add modifier 95 for video, modifier 93 for phone [facility] [place] 03/12/20[place] Estab. patient 10-29min; 1 minor problem; add add modifier 95 for video, modifier 93 for phone [facility] [place] 04/07/2024 Low back pain, unspecifiedOt her problems related to medical facilities and other health care RN, CN or CP time with patient by phone; use with 1111F, BP, A1c or other CPTII codes [facility], ([place]) 06/01/2024 Encounter for other specifie d aftercare RN, CN or CP time with patient by phone; use with 1111F, BP, A1c or other CPTII codes [facility], [place] 06/01/2024 Estab. patient 10-29min; 1 minor problem; add add modifier 95 for video, modifier 93 for [facility], [place] 06/04/2024 Unspecified abdominal painOt her problems related to medical facilities and other health care Estab. patient 10-29min; 1 minor problem; add add modifier 95 for video, modifier 93 for [facility], [place] 2024 Type 2 diabetes mellitus wit h other specified complicationHyperlipidemia, unspecifiedEmphysema, unspecifiedUnspecified urinary incontinenceUnspecified fall, subsequent encounterPersonal history of other medical treatment Estab. patient 10-29min; 1 minor problem; add add modifier 95 for video, modifier 93 for [facility], [place] 2024 Estab. patient 10-29min; 1 minor problem; add add modifier 95 for video, modifier 93 for [facility] 2024 Estab. patient 10-29min; 1 minor problem; add add modifier 95 for video, modifier 93 for [facility] 06/09/2024 Type 2 diabetes mellitus wit h other specified complicationHyperlipidemia, unspecifiedOther problems related to medical facilities and other health care Estab. patient 10-29min; 1 minor problem; add add modifier 95 for video, modifier 93 for [facility] 06/09/2024 Estab. patient 10-29min; 1 minor problem; add add modifier 95 for video, modifier 93 for [facility] 06/09/2024 Acute upper respiratory infection, unspecifiedEssential (primary) hypertensionType 2 diabetes mellitus with diabetic polyneuropathy Estab. patient 10-29min; 1 minor problem; add add modifier 95 for video, modifier 93 for [facility] 06/09/2024 Estab. patient 10-29min; 1 minor [...] for phone [facility], [place] 06/23/2024 Estab. patient 10-29min; 1 minor problem; add add modifier 95 for video, modifier 93 for phone [facility], [place] 09/14/2024 Type 2 diabetes mellitus wit h other specified complicationOther problems related to medical facilities and other health careUnspecified urinary incontinence Estab. patient 10-29min; 1 minor problem; add add modifier 95 for video, modifier 93 for phone [facility], [place] 09/16/2024 Type 2 diabetes mellitus wit h other specified complicationHyperlipidemia, unspecified Estab. patient 10-29min; 1 minor problem; add add modifier 95 for video, modifier 93 for phone [facility] [place] 09/16/2024 Estab. patient 10-29min; 1 minor problem; add add modifier 95 for video, modifier 93 for phone [facility] [place] 09/22/2024 Dorsalgia, unspecifiedUnsteadiness on feetEncounter for issue of repeat prescriptionHistory of falling Estab. patient 10-29min; 1 minor problem; add add modifier 95 for video, modifier 93 for phone [facility] [place] 09/22/2024 Estab. patient 10-29min; 1 minor problem; add add modifier 95 for video, modifier 93 for phone [facility] [place] 09/22/2024 Estab. patient 10-29min; 1 minor problem; add add modifier 95 for video, modifier 93 for phone [facility] [place] 09/22/2024 Estab. patient 10-29min; 1 minor problem; add add modifier 95 for video, modifier 93 for phone [facility] [place] 09/22/2024 Estab. patient 10-29min; 1 minor problem; add add modifier 95 for video, modifier 93 for phone [facility] [place] 09/24/2024 Dorsalgia, unspecifiedUnsteadiness on feetOther problems related to medical facilities and other health careHistory of falling Estab. patient 10-29min; 1 minor problem; add add modifier 95 for video, modifier 93 for phone [facility] [place] 09/24/2024 Estab. patient 10-29min; 1 minor problem; add add modifier 95 for video, modifier 93 for phone [facility] [place] 09/24/2024 Vital Signs Date of Collection Vitals 2022-02-19 [...] CelO2 % BldC Oximetry - 91.0 % 2024-09-14 06:37:21 Weight - 94.6 kgBody Mass Index (BMI) - 35.8 kg/m2 2024-09-22 18:11:16 BP Diastolic - 83.0 mm[Hg]BP Systolic - 139.0 mm[Hg]Heart Rate - 61.0 /min 2024-09-24 08:37:04 BP Diastolic - 80.0 mm[Hg]BP Systolic - 132.0 mm[Hg] Social History Social History Social History Observation Description Effec tive Time Current Smoking Status Former smoker 2024-10-09 2 Sex Male Gender identity Man History of Procedures Procedures Service Procedure code Service date Servicing provider Phone# New patient,40-59min; chronic exacerbation, 2 stable chronic or 1 acute illness add add modifier 95 for video (do not use for phone, instead use 93316-96) [id number] 2022-02-19 No Data Available No Data Availa [...] 1111F, BP, A1c or other CPTII codes [id number] 2022-10-14 No Data Available No Data Avai lable Medications prescribed in hospital were reviewed and reconciled against what they were taking prior to admission during today's visit. (1111F) 1111F 2022-10-14 No Data Available No Data Availa ble Estab. patient 30-39min; chronic exacerbation, 2 stable chronic or 1 acute illness add add modifier 95 for video, (do not use for phone, instead use [id number]) 31715 2022-10-18 No Data Available No Data Availa [...] ble Advance care planning discussed and documented advance care plan or surrogate decision-maker was [...] reviews and reporting CPTII codes (1111F, etc) 03435 2022-11-25 No Data Available No Data Availa ble DBP <80 (3078F) 3078F 2022-11-25 No Data Available No Data Available SBP < 130 (3074F) 3074F 2022-11-25 No Data Available No Data Available No Data Available [id number] 2023-02-24 No Data Available No Data Available [...] le No Data Available No Data Available [id number] 2023-04-04 No Data Available No Data Available [...] ble Advance care planning discussed and documented advance care plan or surrogate decision-maker was documented in the medical record. (1123F) 1123F 2023-05-02 No Data Available No Data Availa ble Functional Status Assessed (1170F) 1170F 2023-05-02 No Data Available No Data Avail able No Data Available 2023-05-20 No Data Available No Data Available [...] le No Data Available No Data Available [id number] 2023-07-08 No Data Available No Data Available No Data Available 2023-07-31 No Data Available No Data Available No Data Available [id number] 2023-08-26 No Data Available No Data Available No Data Available [id number] 2023-10-02 No Data Available No Data Available Estab. patient 30-39min; chronic exacerbation, 2 stable chronic or 1 acute illness add add modifier 95 for video, (do not use for phone, instead use 73022-43) [id number] 2023-12-10 No Data Available No Data Availa [...] ble Advance care planning discussed and documented advance care plan or surrogate decision-maker was [...] No Data Avail able No Data Available [id number] 2023-12-18 No Data Available No Data Available [...] Available No Data Available No Data Available [id number] 2024-01-14 No Data Available No Data Available [...] ble Advance care planning discussed and documented advance care plan or surrogate decision-maker was documented in the medical record. (1123F) 1123F 2024-01-14 No Data Available No Data Availa ble No Data Available [id number] 2024-02-27 No Data Available No Data Available [...] No Data A vailable No Data Available [id number] 2024-03-08 No Data Available No Data Available [...] 95 for video, modifier 93 for phone [id number] 2024-03-12 No Data Available No Data Availa ble Medication List Documented (1159F) 1159F 2024-03-12 No Data Available No Data Colette ilable Estab. patient 10-29min; 1 minor problem; add add modifier 95 for video, modifier 93 for phone [id number] 2024-04-07 No Data Available No Data Availa ble RN, CN or CP time with patient by phone; use with 1111F, BP, A1c or other CPTII codes 18489 2024-06-01 No Data Available No Data Avai [...] recent A1c (HbA1c) or GMI level >9% 3046F 2024-06-09 No Data Available No Data Availa ble Estab. patient 10-29min; 1 minor problem; add add modifier 95 for video, modifier 93 for phone 2024-06-10 No Data Available No Data Availa ble SBP >= 140 3077F 2024-06-10 No Data Available No Data Available DBP >=90 3080F 2024-06-10 No Data Available No Data Available Medication List Documented (1159F) 1159F 2024-06-10 No Data Available No Data Colette ilable Most recent A1c (HbA1c) or GMI level >9% 3046F 2024-06-10 No Data Available No Data Availa ble Estab. patient 10-29min; 1 minor problem; add add modifier 95 for video, modifier 93 for phone 2024-06-11 No Data Available No Data Availa ble Estab. patient 10-29min; 1 minor problem; add add modifier 95 for video, modifier 93 for phone [id number] 2024-06-15 No Data Available No Data Availa ble Most recent A1c (HbA1c) or GMI level 7-7.9% (3051F) 3051F 2024-06-15 No Data Available No Data Availa ble Estab. patient 10-29min; 1 minor problem; add add modifier 95 for video, modifier 93 for phone [id number] 2024-06-23 No Data Available No Data Availa ble Medication List Documented (1159F) 1159F 2024-06-23 No Data Available No Data Colette ilable Estab. patient 10-29min; 1 minor problem; add add modifier 95 for video, modifier 93 for phone [id number] 2024-09-14 No Data Available No Data Availa ble Estab. patient 10-29min; 1 minor problem; add add modifier 95 for video, modifier 93 for phone [id number] 2024-09-16 No Data Available No Data Availa ble Most recent A1c (HbA1c) or GMI level 8-9% (3052F) 3052F 2024-09-16 No Data Available No Data Availa ble Estab. patient 10-29min; 1 minor problem; add add modifier 95 for video, modifier 93 for phone [id number] 2024-09-23 No Data Available No Data Availa ble SBP 130-139 (3075F) 3075F 2024-09-23 No Data Availabl e No Data Available DBP 80-89 (3079F) 3079F 2024-09-23 No Data Available No Data Available Medication List Documented (1159F) 1159F 2024-09-23 No Data Available No Data Colette ilable Pain Assessment - Pain Documented on a Pain Scale (1125F) 1125F 2024-09-23 No Data Available No Data Colette ilable Estab. patient 10-29min; 1 minor problem; add add modifier 95 for video, modifier 93 for phone [id number] 2024-09-24 No Data Available No Data Availa ble SBP 130-139 (3075F) 3075F 2024-09-24 No Data Availabl e No Data Available DBP 80-89 (3079F) 3079F 2024-09-24 No Data Available No Data Available Functional Status Functional Category Effective Dates ADLsDressing - Needs assista nceBathing - Needs assistanceToileting - Needs assistanceTransfers - Needs assistanceEating - IndependentiADLsShopping - Needs assistanceMedications - IndependentHousekeeping - Needs assistanceCooking - Needs assistanceFalls in last 6 months - Yes 2022-10-18 [employer]ING [employer] SUPER[employer] coming in M-F only one h our per day (originally approved for 10 hours) 2023-04-04 uses cane and walker at home to ambulate 2023-12-18 PICKING CREW SUPERVISOR is his niece. Susanne 2023-12-18 has meals on wheels coming in [...] back painMorbid (severe) obesity due to excess caloriesCOD-19 2023-02-24 07:37:55 Diabetes mellitus wi th other [...] to medical facilities and other health care 2024-09-14 06:37:21 Diabetes mellitus wi th other complicationsHLDOther problems related to medical facilities and other health careIncontinence 2024-09-16 09:16:44 Other problems relat ed to medical facilities and other health careDiabetes mellitus with other complicationsHLD 2024-09-22 18:11:16 History of fallUnste shlomo gaitBack painMedication refill 2024-09-24 08:37:04 Other problems relat ed to medical facilities and other health careHistory of fallUnsteady gaitBack pain Plan of Care Date of Service Plans [...] denies monitoring BGLantus, TrulicityContinue to f/u w/ first officer and flight instructor q3-6 months, monitor BG levels, discussed dietary and exercise interventions, contact us if develop hyperglycemia s/sxStableAlbuterol, FloventMonitor O2, take medications as Rx, continue f/u care w/ PCP [id number], contact us if you develop respiratory distressStableTamsulosinMonitor urine output, continue taking medication as prescribed, f/u PCP [id number], contact us if develop acute decrease in [...] modifier 95Advance care planning discussed and documented advance care plan or surrogate decision-maker was documented in the medical record. (1123F)Advance care planning discussed and documented in the medical record beneficiary/patient did not wish to or was [...] denies monitoring BGLantus, TrulicityContinue to f/u w/ first officer and flight instructor q3-6 months, monitor BG levels, discussed dietary and exercise interventions, contact us if develop hyperglycemia s/sxStableAlbuterol, FloventMonitor O2, take medications as Rx, continue f/u care w/ PCP [id number], contact us if you develop respiratory distressStableTamsulosinMonitor urine output, continue taking medication as prescribed, f/u PCP [id number], contact us if develop acute decrease in [...] denies monitoring BGLantus, TrulicityContinue to f/u w/ first officer and flight instructor q3-6 months, monitor BG levels, discussed dietary and exercise interventions, contact us if develop hyperglycemia s/sxStableAlbuterol, FloventMonitor O2, take medications as Rx, continue f/u care w/ PCP [id number], contact us if you develop respiratory distressStableTamsulosinMonitor urine output, continue taking medication as prescribed, f/u PCP [id number], contact us if develop acute decrease in [...] denies monitoring BGLantus, TrulicityContinue to f/u w/ first officer and flight instructor q3-6 months, monitor BG levels, discussed dietary and exercise interventions, contact us if develop hyperglycemia s/sxCONTINGENCY PLANMember to call for the following symptoms: Blood sugar <70/ Blood sugar >300/ More thirsty than usual/ Urinating more than usualPlanned intervention:StableAlbuterol, FloventMonitor O2, take medications as Rx, continue f/u care w/ PCP [id number], contact us if you develop respiratory distressStableTamsulosinMonitor urine output, continue taking medication as prescribed, f/u PCP [id number], contact us if develop acute decrease in [...] call CBContinue to see PCP. [facility] needed for any acute or [...] modifier 95)Continue to see PCP. [facility] needed for any acute or disease education needs that may arise 30/09.Type 2 diabetes mellitus with HLDNo A1c on EMR, Pt denies monitoring BGLantus, TrulicityContinue to f/u w/ first officer and flight instructor q3-6 months, monitor BG levels, discussed dietary and exercise interventions, contact us if develop hyperglycemia s/sxCONTINGENCY PLANMember to call for the following symptoms: Blood sugar <70/ Blood sugar >300/ More thirsty than usual/ Urinating more than usualPlanned intervention:StableAlbuterol, FloventMonitor O2, take medications as Rx, continue f/u care w/ PCP [id number], contact us if you develop respiratory distressStableTamsulosinMonitor urine output, continue taking medication as prescribed, f/u PCP [id number], contact us if develop acute decrease in [...] call CBContinue to see PCP. Follow-up with [facility] as needed for any acute or disease [...] visit. (1111F)Continue to see PCP. Follow-up with [facility] as needed for any acute or disease education needs that may arise 30/09.Type 2 diabetes mellitus with HLDNo A1c on EMR, Pt denies monitoring BGLantus, TrulicityContinue to f/u w/ first officer and flight instructor q3-6 months, monitor BG levels, discussed dietary and exercise interventions, contact us if develop hyperglycemia s/sxCONTINGENCY PLANMember to call for the following symptoms: Blood sugar <70/ Blood sugar >300/ More thirsty than usual/ Urinating more than usualPlanned intervention: 05/20/23: had episodes of hypoglycemia in STR; have decreased lantus to 60Units per nightStableAlbuterol, FloventMonitor O2, take medications as Rx, continue f/u care w/ PCP [id number], contact us if you develop respiratory distressStableTamsulosinMonitor urine output, continue taking medication as prescribed, f/u PCP [id number], contact us if develop acute decrease in [...] joint pain increased [facility]. [facility] as needed for any acute or [...] modifier 95)Continue to see PCP. Follow[facility]up with [facility] as needed for any acute or disease education needs that may arise 30/09.Type 2 diabetes mellitus with HLDNo A1c on EMR, Pt denies monitoring BGLantus, TrulicityContinue to f/u w/ first officer and flight instructor q3-6 months, monitor BG levels, discussed dietary [...] date) tx from the hospital to a custodial for advanced dementia per cg. I left [...] date) tx from the hospital to a custodial for advanced dementia per cg. I left a message to the patient's son Manuel for add. information. Placed member on hold due to placement.08/26/23: Son reports that the patient returned home 2 weeks ago from SNF. The family has been providing 30/09 support but he reports that the patient needs more [employer]PER[employer] hours to continue to providing adequate care. I provided [facility] number for follow up. [...] call CBContinue to see PCP. [facility] for any acute or disease education needs that may arise 30/09.what should be done when the member calls: see each individual diagnosis for contingency plan 2023-10-02 12:45:19 Phone (patient, pare nt, or guardian); 5-10 minutes of medical discussion (no modifier 95)Continue to see PCP. [facility] needed for any acute or disease education needs that may arise 30/09.Type 2 diabetes mellitus with HLDNo A1c on EMR, Pt denies monitoring BGLantus, TrulicityContinue to f/u w/ first officer and flight instructor q3-6 months, monitor BG levels, discussed dietary [...] reports that the patient recently started with P[employer]ING [employer] SUPERVISOR (niece) to help with his care. He was previously non-compliant with his medications and insulin; P[employer]ING [employer] SUPERVISOR Crystal is helping with his medication management [...] date) tx from the hospital to a custodial for advanced dementia per cg. I left a message to the patient's son Manuel for add. information. Placed member on hold due to placement.08/26/23: Son reports that the patient returned home 2 weeks ago from SNF. The family has been providing 30/09 support but he reports that the patient needs more [employer]PER[employer]OR hours to continue to providing adequate care. I provided [facility] CC number for follow up. [...] record (1158F)Advance care planning discussed and documented advance care plan or surrogate decision-maker was documented in the medical record. (1123F)Pain Assessment - Pain Documented (1125F)Continue to see PCP. Follow-up with [facility] as needed for any acute or disease education needs that may arise.Type 2 diabetes mellitus with HLDNo A1c on EMR, Pt denies monitoring BGLantus, TrulicityContinue to f/u w/ first officer and flight instructor q3-6 months, monitor BG levels, discussed dietary [...] reports that the patient recently started with P[employer]ING CREW SUPERVISOR (niece) to help with his care. He was previously non-compliant with his medications and insulin; PICKING CREW SUPERVISOR Crystal is helping with his medication management due to BS in 300's avg.StableAlbuterol, FloventMonitor O2, take medications as Rx, continue f/u care w/ PCP [id number], contact us if you develop respiratory distressStableTamsulosinMonitor urine output, continue taking medication as prescribed, f/u PCP [id number], contact us if develop acute decrease in [...] but in pain and 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 Please keep a log and we [...] call CBContinue to see PCP. Follow[facility]up with [facility] as needed for any acute or [...] PT - asking PCP.Due to not enough P[employer]ING [employer]W SUPERVISOR presence, has fallen a number of times recently, and hurt his ribs badly.Also needs medication reminders. Reduced [employer]ING [employer] SUPER[employer] hours because they were sending meals on wheels. PICKING CREW SUPERVISOR has been with him since August and [...] (with food)Patient verbalized understanding. Caregiver verbalized understanding.Reduced P[employer]ING [employer]W SUPERVISOR hours because they were sending meals on wheels but has not received the meals yet.Also needs medication reminders now that his PICKING CREW SUPERVISOR is not there as much - at risk for noncompliance.Reduced PICKING CREW SUPERVISOR hours because they were sending meals on wheels. PICKING CREW SUPERVISOR has been with him since August and [...] Will send via sms to his [facility] member to call: If he falls or feels dizzy and is at danger of fallingIf bp is elevated sbp>150; dbp>90 or symptomatic-h/a, dizziness, cp, sob. if BS >300 or BS<90 or symptomatic; i.e., dizzy, off balance , shaky, general weakness. if UTI symptoms arise-urinary frequency, dysuria, low abd pain. if pain in knees increases/ or joint pain increased Please remember to call [facility] to see PCP. Follow-up with [facility] as needed for any acute or disease education needs that may arise 30/09.what should be done when the member calls: see each individual diagnosis for contingency planStableCymbaltaContinue taking medications, practice core ROM exercises as tolerable, contact us if develop increase in low back pain without reliefType 2 diabetes mellitus with HLDNo A1c on EMR, Pt denies monitoring BGLantus, TrulicityContinue to f/u w/ first officer and flight instructor q3-6 months, monitor BG levels, discussed dietary [...] and instructions of the insulins and contingency plan.7/25/24: Son reports that the patient recently started with PICKING CREW SUPERVISOR (niece) to help with his care. He was previously non-compliant with his medications and insulin; P[employer]ING [employer] SUPERVISOR Crystal is helping with his medication management [...] denies monitoring BGLantus, TrulicityContinue to f/u w/ first officer and flight instructor q3-6 months, monitor BG levels, discussed dietary [...] reports that the patient recently started with P[employer]ING CREW SUPERVISOR (niece) to help with his care. He was previously non-compliant with his medications and insulin; PICKING CREW SUPERVISOR Crystal is helping with his medication management due to BS in 300's avg.10.10.24: reports his BS have decreased. Now <200 average. Is f/u wit pcp and reports good bs and good BP during visit no records available to review today01/14/2024 patient visited first officer and flight instructor this week . patient states that his BG is controlled for the most part.StablePt denies monitoring BPLisinopril, MetoprololDiscussed dietary and exercise interventions, f/u w/ PCP q6-12 months, contact us develop emergent HTN s/sx10/2/24BP 150/76 today but in pain and 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 Please keep a log and we [...] modifier 95)Advance care planning discussed and documented advance care plan or surrogate decision-maker was documented in the medical record. (1123F)Advance care planning discussed and documented in the medical record beneficiary/patient did not wish to or was unable to provide an advance care plan or name a surrogate decision-maker. (1124F)PCP visit is planned for:Patient reports that on 02/12/2024 and was discharged the same date.- not admittedPatient reports that he was in the hospital due to having respiratoy infection- thought he had COVID-19, he fell at home and decided to get looked at.PICKING CREW SUPERVISOR hours were reduced just as he is getting weaker and his walking is unsafe.Needs PT - asking PCP.Due to not enough PICKING CREW SUPERVISOR presence, has fallen a number of times recently, and hurt his ribs badly.Also needs medication reminders. Reduced PICKING CREW SUPERVISOR hours because they were sending meals on wheels. PICKING CREW SUPERVISOR has been with him since August and [...] to seek medical assistance or to call [facility].03/08/24 Patient reports fever, chills and congestion [...] modifier 95)Continue to see PCP. Follow-up with [facility] as needed for any acute or [...] joint pain increased [facility]. [facility] with [facility] as needed for any acute or disease education needs that may arise 30/09.what should be done when the member calls: see each individual diagnosis for contingency plan 2024-04-07 05:25:01 Estab. patient 10-29 min; 1 minor problem; add add modifier 95 for video, modifier 93 for phoneContinue to see PCP. [facility] for any acute or disease education needs that may arise 30/09.Add Contingency PlanStableCymbaltaContinue taking medications, practice core ROM exercises as tolerable, contact us if develop increase in low back pain without reliefER visit on 03/19/[address] [facility] for back pain. He reports feeling [...] with HLDA1C 11/7% 5Continue to f/u w/ first officer and flight instructor q3-6 months, monitor BG levels, discussed dietary and exercise interventions, contact us if develop hyperglycemia s/s06/03/24: PICKING CREW SUPERVISOR/Ninoska Sandraagros reports that she recently restarted care with [...] PLANMember to call for the following symptoms: Fall / Refusing to use walker / Vertigo/ WeaknessPlanned intervention: Encourage extra fluid intake [...] was hospitalized on 05/21-05/24 post fall at [facility].StableAlbuterol, FloventMonitor O2, take medications as Rx, continue f/u care w/ PCP [id number], contact us if you develop respiratory [id number]/16/2024 patient states he feels well at the moment. 06/03/24: Denies dyspnea 2024-06-09 07:50:22 Televideo 10-29min; 1 minor problem; add add modifier 95 for video, modifier 93 for phoneContinue to see PCP. Follow-up with Don as needed for any acute or disease education needs that may arise 30/09.Type 2 diabetes mellitus with HLDA1C 11/7% 5Continue to f/u w/ first officer and flight instructor q3-6 months, monitor BG levels, discussed dietary and exercise interventions, contact us if develop hyperglycemia s/s06/03/24: PICKING CREW SUPERVISOR/Ninoska Crystal reports that she recently restarted care [...] callback with continued hyperglycemia.DIABETES CONTINGENCY PLANLast updated: 06/09/2024[facility] to call for the following symptoms: Blood sugar <70 / Blood sugar >300 / DeliriumPlanned intervention: Increase short-acting insulin to lispro 2 units/ Encourage adequate water intake/ Limit high-sugar and high-carbohydrate foods/ Go for a walkPlease call if you experience ANDOMINAL PAIN, swelling, constipation, diarrhea, nausea or vomitingPlanned intervention: Prescribe medication as appropriatePSYCH CONTINGENCY PLANLast updated: 03/08/2024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 Please keep a log and we [...] that may arise 30/09.DIABETES CONTINGENCY PLANLast updated: 06/09/2024Member to call for the following symptoms: Blood sugar <70 / Blood sugar >300 / DeliriumPlanned intervention: Increase short-acting insulin to lispro [...] was hospitalized on 05/21-05/24 post fall at [facility].06/11/24: Cg Daniela reports that the patient is currently in the ER [facility]. Patient was send by first officer and flight instructor due to high BP, BS and possible [...] visit 06/11, dx with strep throat at [facility]. Cg reports changes to insulin regimen due to hyperglycemia, pending MR records. Cg unable to recallDIABETES CONTINGENCY PLANLast updated: 06/09/2024Meer to call for the following symptoms: Blood sugar <70 / Blood sugar >300 / DeliriumPlanned intervention: Increase short-acting insulin to lispro 2 units/ Encourage adequate water intake/ Limit high-sugar and high-carbohydrate foods/ Go for a walkPlease call if you experience ANDOMINAL PAIN, swelling, constipation, diarrhea, nausea or vomitingPlanned intervention: Prescribe medication as appropriatePSYCH CONTINGENCY PLANLast updated: 03/08/2024Meer to call for the following symptoms: Agitation/ [...] was hospitalized on 05/21-05/24 post fall at [facility].06/11/24: Cg Daniela reports that the patient is currently in the [facility]. Patient was send by first officer and flight instructor due to high BP, BS and possible infection. Cg reports that the patient complained of sore throat today. Reports BS yesterday 168 and he was feeling well. Scheduled a follow up for 06/15. Dx with strep throat, d/c with abx, MR requested.Type 2 diabetes mellitus with HLDA1C 11/7% ontinue to f/u w/ first officer and flight instructor q3-6 months, monitor BG levels, discussed dietary and exercise interventions, contact us if develop hyperglycemia s/s/: PICKING CREW SUPERVISOR/Ninoska Crystal reports that she recently restarted care [...] will callback with continued hyperglycemia.06/15/24: Cg reports changed insulin regimen in ER on 06/11, pending MR records. Cg unable to recall changes. 2024-06-23 06:46:32 Estab. patient 10-29 min; 1 minor problem; add add modifier 95 for video, modifier 93 for phoneContinue to see PCP. [facility] needed for any acute or disease education needs that may arise 30/09.Type 2 diabetes mellitus with HLDA1C 11/7% 5Continue to f/u w/ first officer and flight instructor q3-6 months, monitor BG levels, discussed dietary and exercise interventions, contact us if develop hyperglycemia s/s06/03/24: PICKING CREW SUPERVISOR/Ninoska Rojas reports that she recently restarted care [...] reports BS 260 (without am insulin). Reports PICKING CREW SUPERVISOR will administer insulin soon. Insulin regimen updated. He will call with any concerns. Message left to Daniela.DIABETES CONTINGENCY PLANLast updated: 06/09/2024Member to call for the following symptoms: Blood sugar <70 / Blood sugar >300 / DeliriumPlanned intervention: Increase short-acting insulin to lispro 2 units/ Encourage adequate water intake/ Limit high-sugar and high-carbohydrate foods/ Go for a walkPlease call if you experience ANDOMINAL PAIN, swelling, constipation, diarrhea, nausea or vomitingPlanned intervention: Prescribe medication as appropriatePSYCH CONTINGENCY PLANLast updated: 03/08/2024[facility] to call for the following symptoms: Agitation/ Anxiety/ Insomnia/ Panic attacksPlanned intervention: Hydroxyzine (Vistaril) 25mg PO q6h PRN anxiety/ Encourage member to journal feelings/ Remind member of personal goal:/ Encourage use of home medication:/ Increase dose of current medication:/ Limit extra stimulation 2024-09-14 06:37:21 Estab. patient 10-29 min; 1 minor problem; add add modifier 95 for video, modifier 93 for phoneContinue to see PCP. [facility] needed for any acute or disease education needs that may arise 30/09.Type 2 diabetes mellitus with HLDA1C 9% 1C 11/7% ontinue to f/u w/ first officer and flight instructor q3-6 months, monitor BG levels, discussed dietary and exercise interventions, contact us if develop hyperglycemia s/s06/03/24: PICKING CREW SUPERVISOR/Ninoska Rojas reports that she recently restarted care [...] reports BS 260 (without am insulin). Reports PICKING CREW SUPERVISOR will administer insulin soon. Insulin regimen updated. He will call with any concerns. Message left to Daniela.09/14/24: Christopher Suarez reports that the patient A1C decreased to 9% recently. She has helped the patient make dietary changes, including changing regular soda to zero sugar alternative. Patient reports that he feels stable at this time.DIABETES CONTINGENCY PLANLast updated: 4/2 to call for the following symptoms: Blood sugar <70 / Blood sugar >300 / DeliriumPlanned intervention: Increase short-acting insulin to lispro 2 units/ Encourage adequate water intake/ Limit high-sugar and high-carbohydrate foods/ Go for a walkPlease call if you experience ANDOMINAL PAIN, swelling, constipation, diarrhea, nausea or vomitingPlanned intervention: Prescribe medication as appropriatePSYCH CONTINGENCY PLANLast updated: 03/08/2024 to call for the following symptoms: Agitation/ Anxiety/ Insomnia/ Panic attacksPlanned intervention: Hydroxyzine (Vistaril) 25mg PO q6h PRN anxiety/ Encourage member to journal feelings/ Remind member of personal goal:/ Encourage use of home medication:/ Increase dose of current medication:/ Limit extra stimulation06/03/24: Cg requesting incontinence supplies, order placed on 06/08/24.09/14/24: Cg requesting washable bed chux and wipes. I provided number for Jeannette to add to current order. 2024-09-16 09:16:44 Estab. patient 10-29 min; 1 minor problem; add add modifier 95 for video, modifier 93 for phoneContinue to see PCP. Follow-up with [facility] as needed for any acute or disease education needs that may arise 30/09.DIABETES CONTINGENCY PLANLast updated: 06/09/2024 to call for the following symptoms: Blood sugar <70 / Blood sugar >300 / DeliriumPlanned intervention: Increase short-acting insulin to lispro 2 units/ Encourage adequate water intake/ Limit high-sugar and high-carbohydrate foods/ Go for a walkPlease call if you experience ANDOMINAL PAIN, swelling, constipation, diarrhea, nausea or vomitingPlanned intervention: Prescribe medication as appropriatePSYCH CONTINGENCY PLANLast updated: 03/08/2024 to call for the following symptoms: Agitation/ Anxiety/ Insomnia/ Panic attacksPlanned intervention: Hydroxyzine (Vistaril) 25mg PO q6h PRN anxiety/ Encourage member to journal feelings/ Remind member of personal goal:/ Encourage use of home medication:/ Increase dose of current medication:/ Limit extra stimulationType 2 diabetes mellitus with HLDA1C 9% 1C 11/7% 03/2025Continue to f/u w/ first officer and flight instructor q3-6 months, monitor BG levels, discussed dietary and exercise interventions, contact us if develop hyperglycemia s/s06/03/24: PICKING CREW SUPERVISOR/Ninoska Rojas reports that she recently restarted care [...] reports BS 260 (without am insulin). Reports PICKING CREW SUPERVISOR will administer insulin soon. Insulin regimen updated. He will call with any concerns. Message left to Daniela.09/14/24: Cg Daniela reports that the patient A1C decreased to 9% recently. She has helped the patient make dietary changes, including changing regular soda to zero sugar alternative. Patient reports that he feels stable at this time. 2024-09-22 18:11:16 Televideo 10-29min; 1 minor problem; add add modifier 95 for video, modifier 93 for phoneSBP 130-139 (3075F)DBP 80-89 (3079F)Continue to see PCP. Follow-up with Don as needed for any acute or disease education needs that may arise 30/09.fall 04/03/23: from chair neck pain today 06/17did not hit his head taking tylenol arthritis BS: 99, 120's Is no longer using trulicity (d/t N/V) DME ordered in ER-shower chair and walker ANXIETY: taking gabapentin (for RLS) 06/03/24: Patient was hospitalized on 05/21-05/24 post fall at [facility]. Cg reports the patient had a fall and hit head on a bureau. The patient is currently walking with a walker, denies any current concerns09/22/24: pt had fall at 0330- no apparent injury- did hit head- no c/o LEON, no changes in vision or mental status- no N&V- has been baseline today- eating and drinking ok- moving arms and legs- does have acute on chronic back pain- managed with Tylenol and naproxen - will auth refill for diclofenac gel- use ice/heat for comfort- Pt is not on Plavix anymore- does take daily ASA- no report of any bleeding or bruising - has red spot on back of head- does not c/o any swelling or pain- Continue meds and plan of care as instructed- conservative measures for s/sx mgt and comfort- continue to monitor- f/u with PCP in the morning- TO ED with any emergent needs or any s/sx of distress - fall/safety precautionseRx Refill Aspirin 81 mg Tab delayed rel take 1 tablet orally once daily-take with food to avoid stomach upset- follow up with PCP for ongoing monitoring and management #30 tablet [id number] Refill Diclofenac Sodium 1 % Gel 4 grams topically to affected area 4 times per day PRN pain #100 gram [id number] Refill QUEtiapine Fumarate 25 mg Tab TAKE 1 TABLET BY MOUTH AT BEDTIME- follow up with PCP for refills and ongoing monitoring and management #30 tablet RFx0 2024-09-24 08:37:04 Estab. patient 10-29 min; 1 minor problem; add add modifier 95 for video, modifier 93 for phoneSBP 130-139 (3075F)DBP 80-89 (3079F)Continue to see PCP. Follow-up with [facility] as needed for any acute or disease education needs that may arise 30/09.DIABETES CONTINGENCY PLANLast updated: 06/09/2024Member to call for the following symptoms: Blood sugar <70 / Blood sugar >300 / DeliriumPlanned intervention: Increase short-acting insulin to lispro 2 units/ Encourage adequate water intake/ Limit high-sugar and high-carbohydrate foods/ Go for a walkPlease call if you experience ANDOMINAL PAIN, swelling, constipation, diarrhea, nausea or vomitingPlanned intervention: Prescribe medication as appropriateFALL CONTINGENCY PLANMember to call for the following symptoms: Fall / Refusing to use walker / WeaknessPlanned intervention: Encourage extra fluid intake / Assess for change in mental status and provide reassurance if none (patient's Baseline is a/o x3) / Review importance of sitting for two to three minutes prior to standing after laying down'06/03/24: Patient was hospitalized on 05/21-05/24 post fall at [facility]. Cg reports the patient had a fall and hit head on a bureau. The patient is currently walking with a walker, denies any current concerns09/22/24: pt had fall at 0330- no apparent injury- did hit head- no c/o LEON, no changes in vision or mental status- no N&V- has been baseline today- eating and drinking ok- moving arms and legs- does have acute on chronic back pain- managed with Tylenol and naproxen - will auth refill for diclofenac gel- use ice/heat for comfort- Pt is not on Plavix anymore- does take daily ASA- no report of any bleeding or bruising - has red spot on back of head- does not c/o any swelling or pain- Continue meds and plan of care as instructed- conservative measures for s/sx mgt and comfort- continue to monitor- f/u with PCP in the morning- TO ED with any emergent needs or any s/sx of distress - fall/safety precautions 09/24/24: Follow up visit post fall, denies any new or acute symptoms. Patient is using walker in the home. Fall precautions reviewed. Goals Date Goal 2022-02-19 Remember to monitor [...] PCP and Specialist. Health Concerns Date Concern 2024-09-24 Patient/Guardian agr eed to visit via telehealth.Visit completed via:[ ] audio and video; [x] audio only 2024-09-24 Concerns for today's visit:No acute concerns or needs 2024-09-24 Most recent hospital stay or ER visit:No ER visits or hospitalizations documented in [facility] in 90 days. Member denies ER visits or hospitalizations in last 90 days. 2024-09-24 Open HEDIS Measures: No open measures
--- OUTSIDE RECORDS SUMMARY | 2024-10-29 13:07 | XMS_ITS | Clinical Summary ---
Author Organization [facility] it[facility] Address [address] [place] [address] Care Team Providers Care Harnessmaker Apprentice Name Role Phone Unavailable Primary Care Provider [...] Panel) 04/04/2023 Colorectal Cancer Screening: Colonoscopy 04/04/2023 Falls Risk Assessment 04/04/2023 Hepatitis C Screening 04/04/2023 Social Influencers of Health Screening 04/04/2023 COVID-19 Vaccine (1 - 2023-2 5 season) 2023 Depression Screening 03/10/2024 Influenza Vaccine (#1) 2024 RSV Immunization Adult Patie nts (1 [...]
--- OUTSIDE RECORDS SUMMARY | 2024-10-29 13:07 | XMS_ITS | Clinical Summary ---
Author Organization [facility] Address [address] [place], [place] [address] Phone Care Team Providers Care Community Health Program Representative Name Role Phone Unavailable Primary Care Provider Unavailabl e Social History Tobacco Use Types Packs/Day Years Used Date Smoking Tobacco: Never Assessed Education Answer Date Recorded Are you interested in more education? Not on odalys e 05/04/2024 Are you concerned about learning? Not on file 05/04/2024 No 05/04/2024 No 05/04/2024 Digital Access Answer Date Recorded No 05/04/2024 No 05/04/2024 Reliable internet access at home? Not on file 05/04/2024 Device with a working camera? Not on file Sex and Gender Information Value Date Recorded Sex Assigned at Not on file Legal Sex Male 10:48 AM EST Gender Identity Not on file Sexual Orientation Not on file Plan of Treatment Not on file Medical Devices Not on file [place] [address] [place] [address] MEDICARE REPLACEMENT MEDICARE REPLACEMENT MEDICARE REPLACEMENT MEDICARE [place]AC[place] [address] [place] [address] MEDICARE REPLACEMENT MEDICARE REPLACEMENT Additional Source Comments The information contained in this document represents components of the legal health record. It is not the complete legal health record.[facility]
--- OUTSIDE RECORDS SUMMARY | 2024-10-29 13:07 | XMS_ITS | Clinical Summary ---
Author Organization [facility] Address [address] [place] [address] Care Team Providers Care Airplane Rental Clerk Name Role Phone Unavailable Primary Care [...] Vaccine ( season) 2023 Influenza Vaccine (#1) 2024 , 01/10/2021, 12/15/2018, Additional history exists Dental [...] Most Recently Relevant to Health Maintenance [place] [id number] DENTAL - [facility]
--- OUTSIDE RECORDS SUMMARY | 2024-10-29 13:07 | XMS_ITS ---
Author Organization [facility] Care Team Providers Care Systems Technician Name Role Phone Chen Keita Unavailable Unavailable Bam Fishman Unavailable Unavailable Allergies and adverse reactions Code CodeSystem Substance Reaction Severity StartDate Concern Status 716734 RXNORM Percogesic Restlessness an d agitation (code- 602089159, SNOMED CT) Moderate 05/11/2023 active 3423 RXNORM Dilaudid Confusional sta te (code- 031231460, SNOMED CT); Hallucinations (code- 9331311, SNOMED CT) Moderate 05/11/2023 active Care Team Name Role Address Phone Organization Dates Bam Fishman PCP [address] [place] [address], [address], [place] (Office): [phone] (Fax): [phone] [facility] 05/11/2023 - 05/26/2023 Chen Keita [place], [facility] [place] [facility] 05/11/2023 - 05/26/2023 Immunizations Immunization Status Vaccine Details Vaccine Code CodeSystem Date Notes Influenza completed Influenza, high-dose, split virus, quadrivalent, injectable, preservative free 197 CVX created date: 05/21/2023 administere d date: 02/27/2022 Herpes Zoster (shingles) completed varicella zoster immune globulin 36 CVX created date: 05/21/2023 administere d date: 05/22/2022 Herpes Zoster (shingles) completed varicella zoster immune globulin 36 CVX created date: 05/21/2023 administere d date: 02/27/2022 TD Diphtheria/Tetanu s completed tetanus and diphtheria toxoids, adsorbed, preservative free, for adult use (2 Lf of tetanus toxoid and 2 Lf of diphtheria toxoid) 09 CVX created date: 05/21/2023 administere d date: 03/22/2016 pneumovax 20 completed Pneumococcal conjugate vaccine 20-valent (PCV20), polysaccharide [id number] conjugate, adjuvant, preservative free 216 CVX created date: 05/21/2023 consent date: 05/21/2023 administere d date: 05/22/2022 RSV - GSK Arexvy completed Respiratory syncytial virus (RSV), vaccine, recombinant, protein subunit RSV prefusion F, adjuvant reconstituted, 0.5 mL, preservative free 303 CVX created date: 05/21/2023 administere d date: 04/17/2023 Mental Status Section Date Assessment Total Score Description 05/26/2023 BIMS 15 cognitively int act CAM 0 No delirium ind icated PHQ-9 08 mild depression 05/18/2023 BIMS 14 cognitively int act CAM 0 No delirium ind icated PHQ-9 00 Problems Problem # Description Date of onset Resolved Date Code CodeSystem Concern Status 1 ALCOHOL ABUSE WITH ALCOHOL-INDUCED MOOD DISORDER 05/11/[address] active 2 BENIGN PROSTATIC HYPERPLASIA WITH LOWER URINARY TRACT SYMPTOMS 05/11/[address] active 3 CHRONIC OBSTRUCTIVE PULMONARY DISEASE, UNSPECIFIED 05/11/[address] active 4 DIABETES MELLITUS DUE TO UNDERLYING CONDITION WITH DIABETIC NEUROPATHY, UNSPECIFIED 05/11/[address] active 5 EPIGASTRIC PAIN 05/11/[address] ac tive 6 ERYTHEMA INTERTRIGO 05/11/[address] active 7 HYPERKALEMIA 05/11/[address] activ e 8 MALE ERECTILE DYSFUNCTION, UNSPECIFIED 05/11/[address] active 9 MILD INTERMITTENT ASTHMA, UNCOMPLICATED 05/11/[address] active 10 OVERACTIVE BLADDER 05/11/[address] T active 11 PURE HYPERCHOLESTEROLEM IA, UNSPECIFIED 05/11/[address] active 12 SHORTNESS OF BREATH 05/11/[address] active 13 UNSPECIFIED CHRONIC GASTRITIS WITHOUT BLEEDING 05/11/[address] active Reason for Referral No Reasons for Referral Entered Social History Social History Observation Description Start Date End Date Code Code System Current Smoking Status Tobacco smoking consumption unknown 882360869 SNOMED CT Sex Assigned At Male 1955 82879-0 [facility] Gender Identity Vital Signs Code Code System Vitals Name Values and Units Timing Information 2339-0 [facility] Blood Sugar Masfq=765.0 Units=mg/dL 05/26/2023 9279-1 [facility] Respiratory Rate Value=16.0 Units=/m in 05/26/2023 8462-4 [facility] Blood Pressure-Diastolic Value=68 Un its=mmHg 05/26/2023 8480-6 [facility] Blood Pressure-Systolic Jrcpx=577 Un its=mmHg 05/26/2023 8310-5 [facility] Body Temperature Value=97.9 Units= F 05/26/2023 8867-4 [facility] Heart rate Value=53.0 Units=/min 52112-5 [facility] O2 % BldC Oximetry Value=93.0 Units= % 05/26/2023 66715-1 [facility] Pain Level Value=0.0 05/26/2023 47619-0 [facility] Weight Ghdlj=629.0 Units=Lbs 06/2023 8302-2 [facility] Height Value=64.0 Units=Inches 05/12/2023
--- OUTSIDE RECORDS SUMMARY | 2024-10-29 13:07 | XMS_ITS | Patient Health Record ---
Author Organization [facility] Address [address] [place] [address] Care Team Providers Care House Repairer Name Role Phone Hung ANDERSEN, [place] Primary Care Provider Steven Callahan [phone] Reason For Referral No Information Medications Medication SIG (Take, Route, Frequency, Duration) Notes Start Date End Date Status Flovent HFA 110 MCG/ACT TOME DOS INHALAC IONES POR V?A ORAL DOS VECES AL D?A Inhalation for 30 Active Vitamin D3 50 MCG (2000 UT) 1 capsule Orally Once a day Active Ferrous Sulfate 325 (65 Fe) MG TOME JACEY TABLETA TODOS LOS D? Oral for 30 Active GlycoLax - as directed Orally Active Metoprolol Tartrate 50 MG TOME JACEY TABLE TA DOS VECES AL D?A Oral for 90 Active Docusate Sodium 100 MG TOME JACEY C?PSULA TODOS LOS D? CUANDO SEA NECESARIO Oral for 30 Active traMADol HCl 50 MG 1 tablet as needed O rally every 6 hours as needed for pain Active PARoxetine HCl 40 MG TOME JACEY TABLETA TO DOS LOS D? EN LA MA?HARRY Oral for 90 Active Lisinopril 10 MG TOME JACEY TABLETA TOD OS LOS HUA 90 Oral for 90 Active Aspirin Low Dose 81 MG TOME JACEY TABLETA POR V?A ORAL TODOS LOS D? Oral for 90 Active HumaLOG KwikPen 100 UNIT/ML INJECT 50 UNITS TWICE A DAY SUBCUTANEOUS Subcutaneous for 15 Active Lantus SoloStar 100 UNIT/ML INJECT 80 UNITS POR VIA SUBCUTANEA DOS VECES AL LORI 28 Subcutaneous for 84 Activ e Fluticasone Propionate 50 MCG/ACT SPRAY 1 SPRAY INTO EACH NOSTRIL TODOS LOS D? Nasal for 60 Active Basaglar KwikPen 100 UNIT/ML as directed Subcutaneous Act josiane Atorvastatin Calcium 80 MG TOME JACEY TABL ETA TODOS LOS D? Oral for 90 Active Gabapentin 400 MG TOME 2 C?PSULAS POR V?A ORAL DOS VECES AL D?A Oral for 90 Active Immunizations Vaccine Route Administration Date Status Comme nts Influenza Unknown 12/08/2018 Administered Social History Tobacco Use: Social History Observation Description Date Details (start date - stop date) Former Smoker NA - NA Tobacco Use/Smoking Question Answer Notes Patient is a former smoker How long has it been since you last smoked? > 10 years Alcohol Screen Question Answer Notes Did you have a drink containing alcohol in the p ast year? No Points 0 Interpretation Negative Section Notes: Sober from alcohol and tobac co since 2005 Problems Problem Type SNOMED Code ICD Code Onset Dates Problem Status W/U Status Risk Notes Problem [id number] Encounter for screening for malignant neoplasm of colon (Z12.11) Active confirmed Problem 280177722233135 Preprocedural examination (Z01.818) Active confirmed Problem 295470871 Long-term use of aspirin therapy (Z79.82) Active confirmed Problem 49555855 Constipation, unspecified constipation type (K59.00) Active confirmed Problem 288143209 Elevated LFTs (R94.5) Active confirmed Plan Of Treatment Future Test Test Name Order Date COLONOSCOPY 02/02/2019 Insurance Providers Payer Name Payer Address Payer Phone Subscriber Number Group Number Insured Name Patient Relationship to Insured Coverage Start Date Coverage End Date MEDICARE OF [place] [address] [place] [id number] [phone] [id number] GLEN VALDERRAMA Self - patient is the insured MEDICAID OF [facility] [address] [place] [address] [phone] [id number] GLEN VALDERRAMA Self - patient is the insured Medical (General) History Medical History History ICD Code IDDM Hyperlipidemia Coronary artery disease Kidney disease Neuropathy Hypertension Benign hypertrophy of prostate Denies AR COPD small CVA's Sleep apnea, but does not use a CPAP EGD [place] [address] Chavis--mild gastri tis and duodenitis, no Hpylori Retinopathy Neuropathy Peripheral vascular disease Depression Anemia CKD vitamn B12 deficiency benign positional vertigo Surgical History Surgery Date(Month/Year) 4V CABG 2005 [facility] for gallstone pancreatitis in [address] Crowley Prostate
--- NOTE | 2024-10-29 13:13 | A.OFFVIS_ITS ---
Vital Signs 10/29/24 13:14 Height 5 ft 4 in Weight 220 lb 7.396 oz BMI 37.8 BP 142/82 H Blood Pressure Location Rt brachial Position Sitting Pulse 58 Pulse Source Pulse Oximeter Pulse Oximetry (%) 98 Oxygen Delivery Method Room Air Intake Visit Reasons: T2DM Intake Note: Patient present today to follow up on Type 2 Diabetes Mellitus. Last Diabetic Eye exam: 11/14/2023 Last Podiatry Visit: Does not see a Bid Writer HgA1C: 8.0%, 10/29/2024 Random Glucose: 167 mg/dL Reclamation Kettle Tender Required: Yes Reclamation Kettle Tender Language: Link Knitting Machine Operator Services: Reclamation Kettle Tender Offered & Declined Reclamation Kettle Tender Name: Niece Accompanied by: Nephew or Niece Allergies hydromorphone (Dilaudid) Adverse Reaction (Unknown, Verified 10/29/24 13:20) confusion From DILAUDID Adverse Reaction (Severe, Uncoded 10/29/24 13:20) CONFUSION/HALLUCIATIONS From PERCOCET Adverse Reaction (Intermediate, Uncoded 10/29/24 13:20) AGITATION Medication List - Last Reconciled 10/29/24 by SLOAN Pedersen [Active Mal guard pads 6 x 11 As directed] albuterol sulfate 90 mcg/actuation 2 puffs PO Q4-6H PRN aspirin 81 mg PO DAILY atorvastatin 80 mg PO DAILY 90 days blood sugar diagnostic 1 strip miscellaneous TID blood sugar diagnostic (OneTouch Ultra Test strips) test 3 times per day blood-glucose meter (OneTouch Ultra2 Meter) test 3 times per day blood-glucose sensor (FreeStyle Iwona 3 Plus Sensor device) Apply 1 new sensor every 15 days as directed to monitor blood glucose continuously. blood-glucose,glycerin supervisor,cont (FreeStyle Iwona 3 [place]) as directed cholecalciferol (vitamin D3) (Vitamin D3) 50 mcg PO DAILY [Cleansing wipes As directed] cyanocobalamin (vitamin B-12) 1,000 mcg PO DAILY 90 days dextrose (TRUEplus Glucose) 15 grams (32 mL) PO Q15M PRN dicyclomine 20 mg PO TID PRN dicyclomine 20 mg PO QID PRN [Disposable 30x30 polymer pads heavy floweds As directed] docusate sodium 100 mg PO BID PRN 30 days fluticasone propionate 50 mcg/actuation 1 spray intranasal DAILY gabapentin 400 mg PO TID glucose (TRUEplus Glucose) 15 grams (4 x 3.75 gram) PO .every 15 minutes PRN insulin glargine U-300 conc (Toujeo Max U-300 SoloStar) 28 units subcut BEDTIME insulin lispro 2 - 12 units subcut TID insulin syr/ndl U100 half gareth Use 4 times daily lancets (Game9z Lancets) As directed 3 times a day lidocaine 5% 1 patch topical DAILY lisinopril 10 mg PO DAILY 90 days lorazepam (Ativan) 1 mg PO BEDTIME PRN metaxalone 800 mg PO BEDTIME metformin ER 500 mg PO BID metoclopramide HCl (Reglan) 10 mg PO AC PRN metoprolol tartrate 50 mg PO BID [monthly medication organizer (med box) monthly medication organizer box; ] [Monthly Medication Organizer (Med-Box) ] naproxen 500 mg PO BID PRN omeprazole 40 mg PO DAILY ondansetron 4 mg PO Q6-8H PRN ondansetron HCl 4 mg PO Q6H PRN oxybutynin chloride ER 10 mg PO DAILY paroxetine HCl 40 mg PO DAILY pen needle, diabetic (Lite Touch Insulin Pen [place]) Use 3 times daily pen needle, diabetic (BD Ultra-Fine Original Pen Needle) 3 times daily pen needle, diabetic (BD Ultra-Fine Brittany Pen Needle) test 3 times daily phenazopyridine (Pyridium) 200 mg PO TID 2 days polyethylene glycol 3350 (Miralax) 17 grams PO DAILY [Powder free synthetic exam gloves As directed] [Semi-Electric Hospital Bed As directed] [SHOWER CHAIR As directed] [SHOWER CHAIR As directed] tamsulosin (Flomax) 0.4 mg PO BEDTIME [WALKER As directed] walker As directed HPI Comments Details: This is a 69-year-old male with a past medical history of type 2 diabetes with neuropathy, dementia, JAIME, hyperlipidemia, hypercholesterolemia, CAD, depression and depression presenting for management of type 2 diabetes. Accompanied by his niece, Crystal (phone [phone]). 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 He was diagnosed with diabetes in 1981. Hga1c today 8% down from 9%. He does not have his CGM or glucometer today. Current regimen: Metformin 1000 mg in the morning and 500 mg in the evening (only taking 500 mg BID) Toujeo 35 units every evening (takes 20 some days and 35 units other days). She has been administering it like this because sometimes when she administered 35 he has low blood sugar down to the high 50s. Humalog sliding scale: blood sugar 150-200 take 2 units blood sugar 201-250: take 4 units blood sugar 251-300: take 6 units blood sugar 301-350: take 8 units blood sugar 351-400: take 10 units blood sugar Over 400: take 12 units Only has zero sugar juice and soda. Previous medications: He was previously on Trulicity. Discontinued-history of pancreatitis. He has not taken an SGLT2, but he has a history of UTI and intertrigo. Lantus discontinued to switch to Toujeo. Microvascular complications: Neuropathy, nephropathy (CKD) Macrovascular complications: CAD, TIA in 1996 and 2009 ROS: Constitutional: No fevers, chills, weakness. Eyes: No vision changes or loss of vision Respiratory: Denies cough, wheezing or shortness of breath Cardiovascular: Denies chest pain, chest pressure and palpitations. Gastrointestinal: No anorexia, nausea, vomiting or diarrhea. No abdominal pain Endocrine: No cold or heat intolerance. No polyuria or polydipsia Physical exam: Constitutional: Alert, in no distress. Neck: Supple, Full range of motion. No lymphadenopathy Respiratory: Clear to auscultation. Cardiovascular: S1 S2 regular. No murmurs Extremities: Warm and well perfused. No clubbing, cyanosis or edema. Psychiatric: Normal mood and affect [facility] Medical History Decreased oral intake Sore throat Weakness At risk for elder neglect Anxiety Type 2 diabetes mellitus with neurologic complication Gastritis and duodenitis Vitamin B12 deficiency Hyperkalemia Intertrigo Major depressive disorder, recurrent Benign prostatic hyperplasia with urinary frequency Constipation Obstructive sleep apnea Vitamin D deficiency Diabetic polyneuropathy Diabetes mellitus Obesity (BMI 30-39.9) Benign essential hypertension Pure hypercholesterolemia Coronary artery disease Surgical History Hx of cataract extraction (~2011) History of quadruple bypass (~2005) Hx of cystoscopy History of prostate surgery (~12/04/10) Hx of cholecystectomy (~2007) Family History Father Lung cancer Mother Diabetes Hypertension Stomach cancer Social History Household Members: None Housing: Apartment Do you presently have visiting nurse or other home services: No Alcohol intake: never Patient Tobacco Use Status: Former Tobacco user e-Cigarette/Vaping Use: Never Used Second Hand Smoke Exposure: No Advance Directives Date on File: 07/24/23 service: No Current occupational status: disabled Cognitive needs: Yes (cane) Hearing needs: No Vision needs: Yes Physical Exam Vital Signs: Last Vital Signs Pulse 58 10/29/24 13:14 BP 142/82 H 10/29/24 13:14 Pulse Ox 98 10/29/24 13:14 Oxygen Delivery Method Room Air 10/29/24 13:14 BMI result Body Mass Index 37.8 Results AMB Hemoglobin A1c AMB Hemoglobin A1c 8.0 % Last Edit by DEVORA Parada on 10/29/24 13:41 Results Reviewed Results Reviewed: Laboratory Last Values Glucose (Clinic) 167 mg/dL (60-115) H 10/29/24 13:18 Hgb A1c (Clinic) 8.0 % (4.0-6.0) H 10/29/24 13:40 Laboratory Tests 09/09/22 09/09/22 10/04/23 09:40 09:41 09:02 Plt Count Creatinine Estim Creat Clear Calc Hgb A1c (Clinic) AST ALT Cholesterol 146 LDL Cholesterol, Calc 69 HDL Cholesterol 27 TSH 1.77 Urine Creatinine 77.07 Urine Microalbumin 109.0 Microalb/Creat Ratio 141.4 04/23/24 06/03/24 06/11/24 14:55 22:30 12:13 Plt Count 208 Creatinine 1.20 1.21 Estim Creat Clear Calc 59.6 59.8 Hgb A1c (Clinic) 10.2 H AST 26 ALT 19 Cholesterol LDL Cholesterol, Calc HDL Cholesterol TSH Urine Creatinine Urine Microalbumin Microalb/Creat Ratio Assessment & Plan Assessment & Plan (1) Type 2 diabetes mellitus with neurologic complication: Code(s): E11.49 - Type 2 diabetes mellitus with other diabetic neurological complication Category: Medical Qualifiers: Diabetes mellitus complication detail: with polyneuropathy Diabetes mellitus halfway insulin use: with halfway use Qualified Code(s): E11.42 - Type 2 diabetes mellitus with diabetic polyneuropathy; Z79.4 - assisted (current) use of insulin Plan In summary this is a 69-year-old male with type 2 diabetes presenting for management today. Given history of frequent falls and cognitive impairment A1C target A1c is less than 8%. Continue metformin 500 mg twice daily. Change Toujeo to 28 units every evening. Humalog sliding scale before breakfast and lunch: blood sugar 150-200 take 2 units blood sugar 201-250: take 4 units blood sugar 251-300: take 6 units blood sugar 301-350: take 8 units blood sugar 351-400: take 10 units blood sugar Over 400: take 12 units Humalog sliding scale before dinner blood sugar 150-200 take 0 units blood sugar 201-250: take 2 units blood sugar 251-300: take 4 units blood sugar 301-350: take 6 units blood sugar 351-400: take 8 units blood sugar Over 400: take 10 units If you experience low blood sugar, treat this by eating a chewable fruit candy like skittles or jelly beans (about 8 pieces), 4 ounces (1/2 cup) of fruit juice (not diet), 1 tablespoon of honey or 4 glucose tablets. If your blood sugar is under 50, take double the amount of one of the above. Recheck your blood sugar in 15 minutes. Follow up in 3 months for type 2 diabetes. Crystal spent some of the visit today talking about some difficulties coordinating his care for appointments, refill requests and documentation needed to increase SEARCH ENGINE MARKETING STRATEGIST hours. I will send a referral over to the nurse navigator to see if they can give some assistance. Orders: Orders AMB Hemoglobin A1c Today SLOAN Pedersen E11.42 - Type 2 diabetes mellitus with diabetic polyneuropathy, Z79.4 - adjunct faculty for medical terminology (current) use of insulin Referrals Nurse Navigator Referral SLOAN Pedersen E11.9 - Type 2 diabetes mellitus without complications, F33.9 - Major depressive disorder, recurrent, unspecified, Z91.89 - Other specified personal risk factors, not elsewhere classified Medications: New blood-glucose sensor (FreeStyle Iwona 3 Plus Sensor device) Apply 1 new sensor every 15 days as directed to monitor blood glucose continuously. 2 ea 11RF SLOAN Pedersen Changed From insulin lispro 15 - 20 units (0.15 - 0.2 mL) subcut TID 15 mL 3RF To insulin lispro 2 - 12 units subcut TID Jerry Persaud MD From metformin ER 1,500 mg (3 x 500 mg) PO DAILY 90 days 270 tabs 0RF To metformin ER 500 mg PO BID SLOAN Pedersen Discontinued blood-glucose sensor (FreeStyle Iwona 3 Sensor device) Discontinued Reason: Doctor's Order As directed 2 11RF Patient Instructions: Metformin 500 mg twice daily Administer Toujeo 28 units every evening Humalog sliding scale before breakfast and lunch: blood sugar 150-200 take 2 units blood sugar 201-250: take 4 units blood sugar 251-300: take 6 units blood sugar 301-350: take 8 units blood sugar 351-400: take 10 units blood sugar Over 400: take 12 units Humalog sliding scale before dinner blood sugar 150-200 take 0 units blood sugar 201-250: take 2 units blood sugar 251-300: take 4 units blood sugar 301-350: take 6 units blood sugar 351-400: take 8 units blood sugar Over 400: take 10 units If you experience low blood sugar, treat this by eating a chewable fruit candy like skittles or jelly beans (about 8 pieces), 4 ounces (1/2 cup) of fruit juice (not diet), 1 tablespoon of honey or 4 glucose tablets. If your blood sugar is under 50, take double the amount of one of the above. Recheck your blood sugar in 15 minutes. 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
[2024-10-29 13:14] VITALS: BP 142/82; PULSE 58; O2SAT 98; BMI 37.8
[2024-10-29 13:22] LABS: Glucose, Whole Blood 167 mg/dL (60-115)
== END 2024-10-29 13:53 | disposition home or self-care (01) ==
LOC: HO.ENCR 13:04
PROVIDERS: PCP Internal Medicine; Visit Provider Physician Assistant Medical
DX: E11.42 Type 2 diabetes mellitus with diabetic polyneuropathy (principal); Z79.4 Long term (current) use of insulin

== ENCOUNTER → 2024-10-29 13:03 | Outpatient (BNVA) | payer OTHER, SELFPAY | PROVIDERS: PCP Internal Medicine; Visit Provider Physician Assistant Medical | DX: E11.49 Type 2 diabetes mellitus with other diabetic neurological complication (principal); E11.42 Type 2 diabetes mellitus with diabetic polyneuropathy; Z79.4 Long term (current) use of insulin; Z79.84 Long term (current) use of oral hypoglycemic drugs | CPT/HCPCS: 82947; 83036; 99212 ==

== ENCOUNTER 2024-12-10 09:44 | Emergency (ER) | payer OTHER, SELFPAY ==
--- NOTE | ~2024-12-10 | XR_ITS ---
EXAMINATION: XR LUMBOSACRAL SPINE CLINICAL INFORMATION: trauma, pain COMPARISON: Correlated to CT abdomen pelvis dated August 12, 2024. TECHNIQUE: AP and lateral views. FINDINGS: Multilevel small marginal osteophyte formation and multilevel endplate sclerosis throughout the axial skeleton. No acute cortical disruption or gross malalignment. No lytic or blastic lesions. Vascular calcifications, aorta. XR/XR lumbar spine 2-3V IMPRESSION: Multilevel thoracolumbar spondylosis without acute fracture or trauma-related listhesis. Atherosclerosis disease. Electronically signed by: Jermain Harrington MD 12/10/2024 11:51 AM EDT
--- NOTE | ~2024-12-10 | CT_ITS ---
EXAMINATION: CT HEAD WITHOUT CONTRAST CLINICAL INFORMATION: trauma, head injury COMPARISON: August 12, 2024. TECHNIQUE: Contiguous axial imaging was performed from the skull base to vertex without intravenous administration of contrast. This CT examination was performed using dose optimization techniques as appropriate, variously including the following: *Automated exposure control *Adjustment of mA and/or kV according to patient size (this includes techniques or standardized protocols for targeted exams where dose is matched to indication/reason for exam; i.e. extremities or head) *Use of iterative reconstruction technique DLP: 1483 mGy-cm FINDINGS: No acute cortical disruption in the bony calvarium or the skull base. No acute intracranial hemorrhage, mass effect, midline shift, hydrocephalus or herniation. Prominence of the extra-axial CSF spaces cerebral ventricles. Bilateral multifocal patchy and confluent deep periventricular white matter hypodensities involving centrum semiovale and montano radiata. Multifocal old lacunar infarcts, basal ganglia, extracapsular, montano radiata and cerebellum. Posterior cranial fossa contents demonstrated no acute hemorrhage or mass effect. Normal position cerebellar tonsils. Calcified plaques in the V4 segments of the vertebral arteries and cavernous supraclinoid segments both ICA. No air-fluid levels in the paranasal sinuses. Tympanic cavities and mastoid antrum are aerated. Poor pneumatization of the mastoid air cells. CT/CT head/brain wo IV con IMPRESSION: No acute fracture, bony calvarium. No acute intracranial hemorrhage. Small vessel occlusive disease. Global cerebral atrophy predominantly bifrontal and bitemporal lobes. Atherosclerosis disease Electronically signed by: Jermain Harrington MD 12/10/2024 12:43 PM EDT
[2024-12-10 09:48] VITALS: BP 191/71; PULSE 64; RESP 16; TEMP 36.3; O2SAT 97; BMI 29.2
--- NOTE | 2024-12-10 10:05 | ED_ITS ---
HPI - General Adult General Chief complaint: Fall Stated complaint: Hit Head L Arm Lac Fall 12/10/24 Time Seen by Provider: 12/10/24 10:05 History of Present Illness ED Provider: Sharif GAYLE narrative: The patient is a 69-year-old male with multiple medical problems who lives at home with his family. He is quite frail and disabled. He had an appointment with the neurology office here at [facility] today. His niece was bringing him to the appointment. She had driven him to the hospital. In the front of the hospital she had gotten him out of the car. He was standing while waiting for her to get the wheelchair out of the car. He then fell, landing 1st on his buttocks and then striking his head. He had no loss of consciousness. He was brought to the emergency room after the fall. He is complaining of some lower back pain. The patient is not on anticoagulation although he is on a daily aspirin. Other than the low back pain the patient is not complaining of any significant injury or pain as a result of the fall. No chest pain or shortness of breath. The niece is concerned that the patient has had some urinary discomfort recently. He seems to be chronically incontinent. He is on oxybutynin. The niece would like to make sure he does not have a urinary tract infection. Related Data Home Medications ?Medication ?Instructions ?Recorded ?Confirmed Monthly Medication Organizer 10/03/23 10/29/24 (Med-Box) insulin glargine U-300 conc 300 28 unit subcut BEDTIME 10/29/24 10/29/24 unit/mL (3 mL) subcutaneous pen (Toujeo Max U-300 SoloStar) insulin lispro 100 unit/mL 2 - 12 unit subcut TID 10/0910/29/24 subcutaneous pen metformin 500 mg tablet,extended 500 mg PO BID 5 10/29/24 release 24 hr Previous Rx's ?Medication ?Instructions ?Recorded SHOWER CHAIR #1 ea 10/05/20 SHOWER CHAIR #1 ea 01/10/21 fluticasone propionate 50 1 spray intranasal DAILY #16 grams 03/16/21 mcg/actuation nasal spray,suspension insulin syr/ndl U100 half gareth 0.5 #100 ea 05/14/21 mL 30 gauge x 5/16 dicyclomine 20 mg tablet 20 mg PO QID PRN abdominal pain 07/05/22 #20 tabs ondansetron HCl 4 mg tablet 4 mg PO Q6H PRN nausea and 07/06/22 vomiting #14 tabs metoclopramide HCl 10 mg tablet 10 mg PO AC PRN nausea and 11/12/22 (Reglan) vomiting #20 tabs WALKER #1 ea 04/09/23 walker #1 ea 06/15/23 monthly medication organizer (med #1 ea 10/06/23 box) Semi-Electric Hospital Bed #1 ea 10/07/23 phenazopyridine 200 mg tablet 200 mg PO TID 2 days #6 tabs 11/04/23 (Pyridium) cholecalciferol (vitamin D3) 50 50 mcg PO DAILY #90 ca ps 11/19/23 mcg (2,000 unit) capsule (Vitamin D3) Active Mal guard pads 6 x 11 #208 ea 11/21/23 Cleansing wipes #100 ea 11/21/23 Disposable 30x30 polymer pads #90 ea 11/21/23 heavy floweds Powder free synthetic exam gloves #100 ea 11/21/23 metaxalone 800 mg tablet 800 mg PO BEDTIME #10 tabs 1 docusate sodium 100 mg capsule 100 mg PO BID PRN const ipation 30 01/28/24 days #60 caps lorazepam 1 mg tablet (Ativan) 1 mg PO BEDTIME PRN anx iety/sleep 03/03/24 #10 tabs pen needle, diabetic 32 gauge x #1,200 ea 04/08/24 (BD Ultra-Fine Brittany Pen Needle) naproxen 500 mg tablet 500 mg PO BID PRN pain #60 t abs 04/23/24 lidocaine 5 % topical patch 1 patch topical DAILY #30 ea 05/20/24 albuterol sulfate 90 mcg/actuation 2 puff PO Q4-6H PRN for wheezing 05/24/24 aerosol inhaler #8.5 grams dicyclomine 20 mg tablet 20 mg PO TID PRN Abdominal 0 06/04/24 Discomfort #20 tabs ondansetron 4 mg disintegrating 4 mg PO Q6-8H PRN naus ea and 06/04/24 tablet vomiting #7 tabs glucose 3.75 gram chewable tablet 15 g (4 x 3.75 gram) PO .every 15 07/20/24 (TRUEplus Glucose) minutes PRN low blood sugar #10 tabs dextrose 15 gram/32 mL oral gel 15 g (32 mL) PO Q15M P RN 07/23/24 packet (TRUEplus Glucose) hypoglycemia #128 mL blood-glucose,parachute panel joiner,cont #1 ea 08/19/24 (FreeStyle I[place] 3 [place]) gabapentin 400 mg capsule 400 mg PO TID #270 caps 08/08 05/04 oxybutynin chloride 10 mg 10 mg PO DAILY #90 tabs 08/08 05/04 tablet,extended release 24 hr omeprazole 40 mg capsule,delayed 40 mg PO DAILY #30 ca ps 08/27/24 release paroxetine HCl 40 mg tablet 40 mg PO DAILY #90 tabs lisinopril 10 mg tablet 10 mg PO DAILY 90 days #90 t abs 10/17/24 metoprolol tartrate 50 mg tablet 50 mg PO BID #180 tab s 10/17/24 cyanocobalamin (vitamin B-12) 1,000 mcg PO DAILY 90 da ys #90 tabs 10/19/24 1,000 mcg tablet aspirin 81 mg tablet,delayed 81 mg PO DAILY #90 tabs 0 10/21/24 release atorvastatin 80 mg tablet 80 mg PO DAILY 90 days #90 t abs 10/21/24 polyethylene glycol 3350 17 17 g PO DAILY #119 grams 0 10/21/24 gram/dose oral powder (Miralax) tamsulosin 0.4 mg capsule (Flomax) 0.4 mg PO BEDTIME # 90 caps 10/21/24 blood-glucose sensor (FreeStyle #2 ea 10/29/24 Iwona 3 Plus Sensor device) memantine 5 mg tablet (Namenda) 5 mg PO BID #180 tabs 11/29/24 quetiapine 25 mg tablet 25 mg PO BEDTIME #90 tabs Allergies Allergy/AdvReac Type Severity Reaction Status Date / Time hydromorphone (Dilaudid) AdvReac Unknown confusion Verified 12/10/24 09:49 From DILAUDID AdvReac Severe CONFUSION/H Uncoded 10/29/24 13:20 ALLUCIATION S From PERCOCET AdvReac Intermediate AGITATION Uncoded 10/29/24 13:20 Review of Systems 2 Review of Systems: Yes all other systems are reviewed and are negative [facility] Past Medical History Medical History (Updated 12/11/24 @ 00:01 by Ryan York) Vascular dementia MCI (mild cognitive impairment) Dementia Decreased oral intake Sore throat Weakness At risk for elder neglect Anxiety Type 2 diabetes mellitus with neurologic complication Gastritis and duodenitis Vitamin B12 deficiency Hyperkalemia Intertrigo Major depressive disorder, recurrent Benign prostatic hyperplasia with urinary frequency Constipation Obstructive sleep apnea Vitamin D deficiency Diabetic polyneuropathy Diabetes mellitus Obesity (BMI 30-39.9) Benign essential hypertension Pure hypercholesterolemia Coronary artery disease Surgical History Hx of cataract extraction (~2011) History of quadruple bypass (~2005) Hx of cystoscopy History of prostate surgery (~12/04/10) Hx of cholecystectomy (~2007) Family History Family History Father Lung cancer Mother Diabetes Hypertension Stomach cancer Social History Social History Household Members: None Housing: Apartment Do you presently have visiting nurse or other home services: No Alcohol intake: never Patient Tobacco Use Status: Former Tobacco user e-Cigarette/Vaping Use: Never Used Second Hand Smoke Exposure: No Advance Directives Date on File: 07/24/23 service: No Current occupational status: disabled Cognitive needs: Yes (cane) Hearing needs: No Vision needs: Yes Physical Exam ED Vital Signs: Vital Signs - 24 hr 12/10/24 20:21 Temperature 97.3 F Pulse Rate 62 Respiratory Rate 14 Blood Pressure 166/62 H Pulse Oximetry 94 Oxygen Delivery Method Room Air BMI result Body Mass Index 29.2 Const Other: The patient is a chronically ill-appearing 69-year-old. He is awake and alert. He seems very chronically ill but does not seem obviously acutely ill. He was pleasant. I had a interactive media marketing director with me when I spoke to him but the patient answered by speaking in [place] you in the [facility] was asking questions in Nigerien. HENMT Other: No obvious signs of trauma to the head or the face. No raccoon eyes. No erickson sign. Eyes Other: Pupils are round equal, conjunctivae are clear, extraocular movements intact Neck Other: No posterior C-spine tenderness. No pain with range of motion of the head. C- spine is clinically clear. Resp Effort & Inspection: normal respiratory effort Auscultation: clear to auscultation bilaterally Cardio Rate: regular rate Rhythm: regular rhythm Heart sounds: S1 normal heart sound present and S2 normal heart sound present GI Other: Abdomen is soft and nontender Back/Spine/Pelvis Other: There is diffuse lower lumbar tenderness. No step-off. Skin Other: Skin is pale and dry Neuro Other: The patient is awake and alert. I believe he has some dementia and he he has a very vague demeanor. However he was able to answer all questions reasonably well. He seemed to prefer answering in [place]bourgish although he was asked questions in Nigerien. Cranial nerves seem intact. He seems to have symmetrical strength in his extremities. Extrem Other: No injuries to the extremities. There is some chronic lower extremity edema. Medications Administered Discontinued Medications Generic Name Dose Route Start Last Admin Trade Name Freq PRN Reason Stop Dose Admin Acetaminophen 975 mg 12/10/24 11:22 12/10/24 12:57 Acetaminophen 325 Mg Tablet PO 12/10/24 11:23 Not Given ONCE ONE Lorazepam 1 mg 12/10/24 10:54 12/10/24 11:16 Lorazepam 1 Mg Tablet PO 12/10/24 10:55 1 mg ONCE ONE Administration Medical Decision Making Medical Decision Making [facility] Narrative: The patient is a chronically ill 69-year-old with multiple medical problems who had a mechanical fall after getting out of the car when coming to the hospital for a neurology appointment. He landed on his buttocks and then struck his head. He had no loss of consciousness. He is not on anticoagulation. He is on daily aspirin. Clinically the patient was awake and alert and had a C-spine that seemed clinically clear. He has some low back tenderness. His niece is also concerned that he has complained of some urinary discomfort in the last couple of days. He seems to be chronically incontinent of urine. The patient has a white count of 11.6 with a an unremarkable differential. He has 64% neutrophils, 27% lymphocytes, and 6% monocytes. His hemoglobin is stable at 11.0, this is similar to baseline. Basic metabolic panel shows normal electrolytes. BUN and creatinine are somewhat higher than when last checked but not remarkably different from his overall trend. Head CT is negative. Lumbar spine x-ray is negative. It took a long time to get a urine sample. Ultimately the patient underwent a straight catheterization for a urine sample. His urinalysis does not suggest a urinary tract infection. The patient is a not seem to have any obvious acute medical issue. I think he is quite chronically debilitated. I think he can likely be discharged to return home to his family's care. Lab Data 12/10/24 10:26 12/10/24 10:26 Labs: Lab Results 12/10/24 12/10/24 Range/Units 10: 16:31 WBC 11.6 H (4.8-10.8) X10*3/uL RBC 3.71 L (4.60-5.80) X10*6/uL Hgb 11.0 L (14.0-18.0) g/dl Hct 33.1 L (42.0-52.0) % MCV 89.2 (80.0-98.0) fL MCH 29.6 (27.0-33.0) pg MCHC 33.2 (31.0-36.0) g/dl RDW 12.3 (11.0-16.0) % Plt Count 180 (160-400) X10*3/uL MPV 12.7 H (9.4-12.4) fL Immature Gran % (Auto) 0.3 (0.0-0.4) % Neut % (Auto) 64.7 (45-73) % Lymph % (Auto) 27.1 (20-40) % Schleicher % (Auto) 6.1 (2-11) % Eos % (Auto) 1.6 (0-4) % Baso % (Auto) 0.2 (0-2) % Lymph # (Auto) 3.1 (1.2-4.9) X10*3/uL Schleicher # (Auto) 0.7 (0.1-1.2) X10*3/uL Eos # (Auto) 0.2 (0.0-0.4) X10*3/uL Baso # (Auto) 0.0 (0.0-0.2) X10*3/uL Abs Immat Gran (auto) 0.04 H (0.00-0.03) X10*3/uL Absolute Neuts (auto) 7.5 (2.0-8.3) x10*3/uL Absolute Nucleated RBC 0.000 (0.0-0.012) X10*3/uL Nucleated RBC % (auto) 0.0 (0.0-0.2) /100WBC Sodium 140 (135-145) mmol/L Potassium 4.1 (3.3-5.1) mmol/L Chloride 103 (96-108) mmol/L Carbon Dioxide 28 (22-29) mmol/L Anion Gap 13 (12-20) BUN 31 H (9-16) mg/dL Creatinine 1.52 H (0.5-1.4) mg/dL Estim Creat Clear Calc 41.8 Estimated GFR 45 Random Glucose 280 H (60-115) mg/dL Calcium 9.3 (8.4-10.2) mg/dL Total Bilirubin 0.3 (0.0-1.0) mg/dL AST 47 H (5-37) U/L ALT 67 H (0-40) U/L Alkaline Phosphatase 158 H (39-117) U/L Total Protein 6.8 (6.5-8.0) g/dL Albumin 4.0 (3.5-5.0) g/dL Urine Color Yellow Urine Appearance Clear Urine pH 5.5 (5.0-9.0) Ur Specific [place] 1.020 (1.005-1.025) Urine Protein 300 (3+) H (Neg-Trace) mg/dL Urine Glucose (UA) 100 H (Negative) mg/dL Urine Ketones Negative (Negative) mg/dL Urine Blood Negative (Negative) Urine Nitrite Negative (Negative) Ur Leukocyte Esterase Trace H (Negative) Urine RBC 0-2 (0-2) /HPF Urine WBC 6-10 (0-5) /HPF Ur Squamous Epith Cells 0-2 (0-2) /HPF Urine Bacteria None Seen (None Seen) Hyaline Casts 3-5 (0-2) /LPF Discharge Plan Discharge Clinical Impression: Fall, Head injury, Back injury Patient Disposition: Home, Self-Care Additional Instructions: There does not seem to be any significant head injury or back injury as a result of the fall. There was no sign of urinary tract infection. Please have him continue his regular medications. Please plan on following up with his regular doctor next week. It would also be good to follow up with his urologist. Return to the emergency room if worse. Prescriptions: No Action fluticasone propionate 50 mcg/actuation spray,suspension 1 spray intranasal DAILY Qty: 16 2RF metoclopramide HCl [Reglan] 10 mg tablet 10 mg PO AC PRN (Reason: nausea and vomiting) Qty: 20 0RF (DME) WALKER See Rx Instructions .Route .MEDSUPPLY Qty: 1 0RF Rx Instructions: As directed (DME) Monthly Medication Organizer (Med-Box) 0 .Route .MEDSUPPLY (DME) monthly medication organizer (med box) See Rx Instructions .Route .MEDSUPPLY Qty: 1 0RF Rx Instructions: monthly medication organizer box; (DME) Semi-Electric Hospital Bed See Rx Instructions .Route .MEDSUPPLY Qty: 1 0RF Rx Instructions: As directed cholecalciferol (vitamin D3) [Vitamin D3] 50 mcg (2,000 unit) capsule 50 mcg PO DAILY Qty: 90 3RF (DME) Disposable 30x30 polymer pads heavy floweds See Rx Instructions .Route .MEDSUPPLY Qty: 90 11RF Rx Instructions: As directed (DME) Active Mal guard pads 6 x 11 See Rx Instructions .Route .MEDSUPPLY Qty: 208 0RF Rx Instructions: As directed (DME) Cleansing wipes See Rx Instructions .Route .MEDSUPPLY Qty: 100 11RF Rx Instructions: As directed (DME) Powder free synthetic exam gloves small See Rx Instructions .Route .MEDSUPPLY Qty: 100 11RF Rx Instructions: As directed docusate sodium 100 mg capsule 100 mg PO BID PRN (Reason: constipation) 30 Days Qty: 60 3RF (DME) pen needle, diabetic [BD Ultra-Fine Brittany Pen Needle] 32 gauge x 5/32 needle See Rx Instructions .Route Qty: 1200 11RF Rx Instructions: test 3 times daily naproxen 500 mg tablet 500 mg PO BID PRN (Reason: pain) Qty: 60 0RF lidocaine 5 % adhesive patch,medicated 1 patch topical DAILY Qty: 30 0RF Rx Instructions: leave on most painful area for up to 12 hrs albuterol sulfate 90 mcg/actuation HFA aerosol inhaler 2 puff PO Q4-6H PRN (Reason: for wheezing) Qty: 8.5 2RF glucose [TRUEplus Glucose] 3.75 gram tablet,chewable 15 g PO .every 15 minutes PRN (Reason: low blood sugar) Qty: 10 5RF gabapentin 400 mg capsule 400 mg PO TID Qty: 270 1RF oxybutynin chloride 10 mg tablet extended release 24hr 10 mg PO DAILY Qty: 90 0RF (DME) FreeStyle Iwona 3 [place] Misc See Rx Instructions .ROUTE .MEDSUPPLY Qty: 1 0RF Rx Instructions: as directed omeprazole 40 mg capsule,delayed release(DR/EC) 40 mg PO DAILY Qty: 30 3RF paroxetine HCl 40 mg tablet 40 mg PO DAILY Qty: 90 0RF lisinopril 10 mg tablet 10 mg PO DAILY 90 Days Qty: 90 1RF metoprolol tartrate 50 mg tablet 50 mg PO BID Qty: 180 1RF cyanocobalamin (vitamin B-12) 1,000 mcg tablet 1,000 mcg PO DAILY 90 Days Qty: 90 3RF polyethylene glycol 3350 [Miralax] 17 gram/dose powder 17 g PO DAILY Qty: 119 0RF aspirin 81 mg tablet,delayed release (DR/EC) 81 mg PO DAILY Qty: 90 0RF atorvastatin 80 mg tablet 80 mg PO DAILY 90 Days Qty: 90 1RF tamsulosin [Flomax] 0.4 mg capsule 0.4 mg PO BEDTIME Qty: 90 2RF memantine [Namenda] 5 mg tablet 5 mg PO BID Qty: 180 0RF quetiapine 25 mg tablet 25 mg PO BEDTIME Qty: 90 0RF dicyclomine 20 mg tablet 20 mg PO QID PRN (Reason: abdominal pain) Qty: 20 0RF ondansetron HCl 4 mg tablet 4 mg PO Q6H PRN (Reason: nausea and vomiting) Qty: 14 0RF phenazopyridine [Pyridium] 200 mg tablet 200 mg PO TID 2 Days Qty: 6 0RF lorazepam [Ativan] 1 mg tablet 1 mg PO BEDTIME PRN (Reason: anxiety/sleep) Qty: 10 0RF dicyclomine 20 mg tablet 20 mg PO TID PRN (Reason: Abdominal Discomfort) Qty: 20 0RF ondansetron 4 mg tablet,disintegrating 4 mg PO Q6-8H PRN (Reason: nausea and vomiting) Qty: 7 0RF (DME) SHOWER CHAIR See Rx Instructions .Route .MEDSUPPLY Qty: 1 0RF Rx Instructions: As directed (DME) SHOWER CHAIR See Rx Instructions .Route .MEDSUPPLY Qty: 1 0RF Rx Instructions: As directed (DME) insulin syr/ndl U100 half gareth 0.5 mL 30 gauge x 5/16 syringe See Rx Instructions .Route Qty: 100 12RF Rx Instructions: Use 4 times daily (DME) walker Misc See Rx Instructions .Route Qty: 1 0RF Rx Instructions: As directed (DME) FreeStyle Iwona 3 Plus Sensor Device See Rx Instructions .ROUTE .MEDSUPPLY Qty: 2 11RF Rx Instructions: Apply 1 new sensor every 15 days as directed to monitor blood glucose continuously. insulin lispro 100 unit/mL insulin pen 2 - 12 unit subcut TID Patient Comments: Per sliding scale metformin 500 mg tablet extended release 24 hr 500 mg PO BID metaxalone 800 mg tablet 800 mg PO BEDTIME Qty: 10 0RF TRUEplus Glucose 15 gram/32 mL gel in packet 15 g PO Q15M PRN (Reason: hypoglycemia) Qty: 128 3RF Rx Instructions: until symptoms of low blood sugar are controlled insulin glargine U-300 conc [Toujeo Max U-300 SoloStar] 300 unit/mL (3 mL) insulin pen 28 unit subcut BEDTIME Referrals: Jerry Persaud MD [Primary Care Provider, Internal Medicine] Interventions: ED Discharge Assessment Last Done: 12/10/24 20:21 Discharge Date/Time: 12/10/24 20:23 Print Language: Nigerien
[2024-12-10 10:31] LABS: MANUAL DIFF FLAG NO
[2024-12-10 10:37] LABS: Hematocrit 33.1 % (42.0-52.0); Hemoglobin 11.0 g/dl (14.0-18.0); Imm Gran Abs Auto 0.04 X10*3/uL (0.00-0.03); Imm Gran Pct Auto 0.3 % (0.0-0.4); Lymphocytes Absolute Auto 3.1 X10*3/uL (1.2-4.9); Mean Corpuscular HGB Conc 33.2 g/dl (31.0-36.0); Mean Corpuscular Hemoglobin 29.6 pg (27.0-33.0); Mean Corpuscular Volume 89.2 fL (80.0-98.0); NRBC Abs Auto 0.000 X10*3/uL (0.0-0.012); NRBC Pct Auto 0.0 /100WBC (0.0-0.2); Platelet Count 180 X10*3/uL (160-400); Red Blood Count 3.71 X10*6/uL (4.60-5.80); White Blood Count 11.6 X10*3/uL (4.8-10.8)
[2024-12-10 10:55] LABS: Alanine Aminotransferase 67 U/L (0-40); Albumin Level 4.0 g/dL (3.5-5.0); Alkaline Phosphatase 158 U/L (39-117); Anion Gap 13 (12-20); Aspartate Amino Transferase 47 U/L (5-37); Blood Urea Nitrogen 31 mg/dL (9-16); Calcium 9.3 mg/dL (8.4-10.2); Carbon Dioxide 28 mmol/L (22-29); Chloride 103 mmol/L (96-108); Creatinine Clr Calc Pharmacy 41.8; Estimated Glomerular Filt Rate 45; Potassium 4.1 mmol/L (3.3-5.1); Sodium 140 mmol/L (135-145); Total Protein 6.8 g/dL (6.5-8.0)
[2024-12-10 11:14] VITALS: BP 148/51; PULSE 64; RESP 18; O2SAT 94
--- OUTSIDE RECORDS SUMMARY | 2024-12-10 11:48 | XMS_ITS | Clinical Summary ---
Author Organization [facility] Address [address] [place] [address] Care Team Providers Care Senior Ui Designer Name Role Phone Unavailable Primary Care Provider Unavailabl e Social History Tobacco Use Types Packs/Day Years Used Date Smoking Tobacco: Never Assessed Sex and Gender Information Value Date Recorded Sex Assigned at Not on file Legal Sex Male 9:10 PM EST Gender Identity Not on file Sexual Orientation Not on file Plan of Treatment Health Maintenance Due Date Last Done Comments Colorectal Cancer Screening: Colonoscopy 1955 DTaP,Tdap,and Td Vaccines (1 - Tdap) 1972 Pneumococcal Vaccine: 50+ Ye ars (1 of 1 - PCV) 06/04/2003 Zoster Vaccines (1 of 2) 06/04/2003 Abdominal Aortic Aneurysm (A AA) Screen 04/04/2023 Cholesterol Screening (Lipid Panel) 04/04/2023 Falls Risk Assessment 04/04/2023 Hepatitis C Screening 04/04/2023 Social Influencers of Health Screening 04/04/2023 Depression Screening 03/10/2024 COVID-19 Vaccine ( - 2023-2 5 season) 2024 Influenza Vaccine (#1) 2024 RSV Immunization Adult [...]
--- OUTSIDE RECORDS SUMMARY | 2024-12-10 11:48 | XMS_ITS ---
Author Name Luca Garduno NP Address [address] [place] [address] Phone [phone] [facility] Care Team Providers Care Tassel Maker Name Role Phone Luca Garduno Unavailable [phone] [facility] Unavailable Unavailable Unavailable Unavailable Unavailable Unavailable Unavailable [facility] Unavailable Hung Jerry Unavailable [phone] Reason for Referral Not Available Allergies, adverse [...] No Data Available B-D PEN NDL SHRT [id number](07/23) ANNAMARIE USE TO INJECT 3 TIMES DAILY 2021-06-05 2023-12-12 Clotrimazole-Betamethasone 1-0.05 % Crm APPLY TOPICALLY TO THE AFFECTED AREA TWICE DAILY FOR 15 DAYS 2021-11-26 No Data Available Lisinopril 10 mg Tab TAKE 1 TABLET BY MO [facility] DAILY 2022-02-05 2024-06-01 Trulicity 1.5 mg/0.5ML [...] 2022-03-12 No Data Available OneTouch Delica Plus [id number] Miscellaneous TEST BLOOD SUGAR THREE TIMES DAILY 2022-03-13 No Data Available UltiCare Pen Needle 31 gauge x 5/16 USE THREE TIMES DAILY DIRECTED 2022-03-12 2023-12-12 Omeprazole 40 mg Cap delayed rel TAKE 1 CAPSULE BY MOUTH EVERY DAY 2022-06-10 No Data Available FreeStyle Iwona 3 Sensor Miscellaneous USE DIRECTED. CHANGE EVERY 14 DAYS. 2022-06-12 No Data Available Amoxicillin-Pot Clavulanate 875/125 mg Tab TAKE 1 TABLET BY MOUTH TWICE DAILY 2022-07-05 No Data Available PARoxetine 40 mg Tab TAKE 1 TABLET BY MO [facility] DAILY 2022-07-12 No Data Available Polyethylene Glycol 3350 17 GM Packet Mix 1 packet in 8 ounces of water, juice, coffee or tea and drink once a day 2022-07-14 No Data Available Vitamin D3 50 mcg (2,000 unit) capsule TAKE 1 CAPSULE BY MOUTH DAILY 2021-09-07 No Data Available predniSONE 20 mg Tab TAKE 2 TABLETS BY M [facility] DAILY x 3days 2022-10-11 2022-10-18 Aspirin 81 [...] continue taking medication as prescribed, f/u PCP [id number], contact us if develop acute decrease in [...] to seek medical assistance or to call [facility]. Low back pain Active 2022-02-23 N/A StableCymba ltaContinue taking medications, practice core ROM exercises as tolerable, contact us if develop increase in low back pain without reliefER visit on 03/19/24 at [facility] for back pain. He reports feeling better, [...] was hospitalized on 05/21-05/24 post fall at [facility]. Cg reports the patient had a [...] Cg requesting incontinence supplies, order placed on 4/1/25.09/14/24: Cg requesting washable bed chux and wipes. I provided number for [place] to add to current order. Chronic obstructive airway diseasePulmonary emphysema, unspecified emphysema type Active 2022-02-19 N/A StableAlbuterol, FloventMonitor O2, take medications as Rx, continue f/u care w/ PCP [id number], contact us if you develop respiratory [id number]/16/2024 patient states he feels well at the [...] but in pain and frustrated about reduced DOOR MANAGER hours. Please keep a log and [...] was hospitalized on 05/21-05/24 post fall at [facility].06/11/24: Cg Daniela reports that the patient is currently in the [facility]. Patient was send by bead supervisor due to high BP, BS and possible infection. Cg reports that the patient complained of sore throat today. Reports BS yesterday 168 and he was feeling well. Scheduled a follow up for 06/15. Dx with strep throat, d/c with abx, MR requested. Diabetes mellitus with other complicationsHLD Active 2022-02-19 N/A Type 2 di abetes mellitus with HLDA1C 9% [id number] 11/7% 5Continue to f/u w/ bead supervisor q3-6 months, monitor BG levels, discussed dietary and exercise interventions, contact us if develop hyperglycemia s/s06/03/24: DOOR MANAGER/Ninoska Rojas reports that she recently restarted care [...] reports BS 260 (without am insulin). Reports DOOR MANAGER will administer insulin soon. Insulin regimen updated. [...] for ongoing monitoring and management #30 tablet [id number] Refill Diclofenac Sodium 1 % Gel 4 grams topically to affected area 4 times per day PRN pain #100 gram [id number] Refill QUEtiapine Fumarate 25 mg Tab TAKE 1 TABLET BY MOUTH AT BEDTIME- follow up with PCP for refills and ongoing monitoring and management #30 tablet RFx0 Encounters Encounters Type Facility Date of Service Diagnosis/Co mplaint New patient,40-59min; chronic exacerbation, 2 stable chronic or 1 acute illness add add modifier 95 for video (do not use for phone, instead use 58248-18) [facility] [place]2022 Morbid (severe) obesity due to excess caloriesBody mass index (BMI) 40.0-44.9, adultChronic obstructive pulmonary disease, unspecifiedEnlarged prostate without lower urinary tract symptomsType 2 diabetes mellitus with diabetic polyneuropathyEssential (primary) hypertensionHyperlipidemia, unspecifiedMajor depressive disorder, single episode, in full remissionLow back pain, unspecifiedAthscl heart disease of [place] coronary artery w/o ang pctrsType 2 diabetes mellitus with other specified complicationLong term (current) use of insulin New patient,40-59min; chronic exacerbation, 2 stable chronic or 1 acute illness add add modifier 95 for video (do not use for phone, instead use 36026-22) [facility] [place] New patient,40-59min; chronic exacerbation, 2 stable chronic or 1 acute illness add add modifier 95 for video (do not use for phone, instead use 01009-86) [facility] New patient,40-59min; chronic exacerbation, 2 stable chronic or 1 acute illness add add modifier 95 for video (do not use for phone, instead use 84997-05) [facility] New patient,40-59min; chronic exacerbation, 2 stable chronic or 1 acute illness add add modifier 95 for video (do not use for phone, instead use 82150-12) [facility] New patient,40-59min; chronic exacerbation, 2 stable chronic or 1 acute illness add add modifier 95 for video (do not use for phone, instead use 45219-44) [facility] 02[place]/20[place] RN, CN or CP time with patient by phone; use with 1111F, BP, A1c or other CPTII codes [facility], ([place]) 10/14/2022 Encounter for other specifie d aftercare RN, CN or CP time with patient by phone; use with 1111F, BP, A1c or other CPTII codes [facility], ([place]) 10/14/2022 Estab. patient 30-39min; chronic exacerbation, 2 stable chronic or 1 acute illness add add modifier 95 for video, (do not use for phone, instead use 54088-05) [facility]18[place]2022 Type 2 diabetes mellitus wit h [...] (do not use for phone, instead use 80630-48) [facility], ([place]) 10/18/20[place] Estab. patient 30-39min; chronic exacerbation, 2 stable chronic or 1 acute illness add add modifier 95 for video, (do not use for phone, instead use 81230-73) [facility] ([place] 10[place]18/20[place] Estab. patient 30-39min; chronic exacerbation, 2 stable chronic or 1 acute illness add add modifier 95 for video, (do not use for phone, instead use 17997-31) [facility] ([place] 10[place]18/20[place] Estab. patient 30-39min; chronic exacerbation, 2 stable chronic or 1 acute illness add add modifier 95 for video, (do not use for phone, instead use 37741-20) [facility] ([place] 10[place]18/20[place] Estab. patient 30-39min; chronic exacerbation, 2 stable chronic or 1 acute illness add add modifier 95 for video, (do not use for phone, instead use 01168-26) [facility] [place] 10[place]18/20[place] Estab. patient 30-39min; chronic exacerbation, 2 stable chronic or 1 acute illness add add modifier 95 for video, (do not use for phone, instead use 23655-55) [facility] ([place] 10[place]18/20[place] Estab. patient 30-39min; chronic exacerbation, 2 stable chronic or 1 acute illness add add modifier 95 for video, (do not use for phone, instead use 91340-10) [facility] ([place] 10[place]18/20[place] Estab. patient 30-39min; chronic exacerbation, 2 stable chronic or 1 acute illness add add modifier 95 for video, (do not use for phone, instead use 07888-17) [facility] 10[place]18/20[place] Estab. patient 30-39min; chronic exacerbation, 2 stable chronic or 1 acute illness add add modifier 95 for video, (do not use for phone, instead use 83300-84) [facility] ([place]) 10/18/2022 Unlisted special service; to be used for medical record reviews and reporting CPTII codes (1111F, etc) [facility] ([place] 11/25/2022 Other specified health statu s Unlisted special service; to be used for medical record reviews and reporting CPTII codes (1111F, etc) [facility]/25/2022 Unlisted special service; to be used for medical record reviews and reporting CPTII codes (1111F, etc) [facility] ([place] 11/25/2022 No Data Available [facility] 02[place]/2023 Type 2 diabetes mellitus wit h other specified complicationEmphysema, unspecifiedEnlarged prostate without lower urinary tract symptomsType 2 diabetes mellitus with diabetic polyneuropathyEssential (primary) hypertensionHyperlipidemia, unspecifiedMajor depressive disorder, single episode, in full remissionLow back pain, unspecifiedAthscl heart disease of [place] coronary artery w/o ang pctrsMorbid (severe) obesity due to excess caloriesBody mass index (BMI) 40.0-44.9, adult No Data Available [facility] 02[place]/2023 No Data Available [facility]20[place] No Data Available [facility]20[place] No Data Available [facility]20[place] No Data Available [facility] No Data Available [facility] 04[place]04/2023 Type 2 diabetes mellitus [...] initial encounterAnxiety disorder, unspecified No Data Available [facility] 04[place]04/2023 No Data Available [facility] 04[place]04[place]2023 No Data Available [facility] 04/04/2023 No Data Available [facility] [place]04[place]2023 No Data Available [facility], [place]/04/2023 No Data Available [facility] [place] 04/04/2023 No Data Available [facility] [place] 04/04/2023 No Data Available [facility] 05[place]02/2023 Type 2 diabetes mellitus wit h other specified complicationEmphysema, unspecifiedEnlarged prostate without lower urinary tract symptomsType 2 diabetes mellitus with diabetic polyneuropathyEssential (primary) hypertensionHyperlipidemia, unspecifiedLow back pain, unspecifiedAthscl heart disease of [place] coronary artery w/o ang pctrsBody mass index (BMI) 40.0-44.9, adultMorbid (severe) obesity due to excess caloriesOther problems related to medical facilities and other health careUnspecified fall, initial encounterAnxiety disorder, unspecifiedMajor depressive disorder, recurrent, moderate No Data Available [facility] [place] 05/02/2023 No Data Available [facility] [place] 05[place]02/2023 No Data Available [facility] [place] 05/02/2023 No Data Available [facility] [place] 05/02/2023 No Data Available [facility], ([place] 05/02/2023 No Data Available [facility] [place] 05/20/2023 Type 2 diabetes mellitus wit h diabetic polyneuropathyType 2 diabetes mellitus with other specified complicationHyperlipidemia, unspecifiedEmphysema, unspecifiedMorbid (severe) obesity due to excess caloriesBody mass index (BMI) 40.0-44.9, adultMajor depressive disorder, recurrent, moderateEnlarged prostate without lower urinary tract symptomsEssential (primary) hypertensionLow back pain, unspecifiedOther problems related to medical facilities and other health careAnxiety disorder, unspecifiedUnspecified fall, subsequent encounter No Data Available [facility] [place] 05/20/2023 No Data Available [facility] [place] 05/20/2023 No Data Available [facility] [place] 05/20/2023 No Data Available [facility] ([place] 05/20/2023 No Data Available [facility]/20[place] No Data Available [facility] 07/08/2023 Type 2 diabetes mellitus wit h other specified complicationHyperlipidemia, unspecifiedLong term (current) use of insulinLong-term (current) use of injectable non-insulin antidiabetic drugsOther problems related to medical facilities and other health care No Data Available [facility] 07/31/2023 Altered mental status, unspecified No Data Available [facility] 08/26/2023 Altered mental status, unspecifiedOther problems related to medical facilities and other health care No Data Available [facility] 10[place]02/2023 Type 2 diabetes mellitus wit h other specified complicationHyperlipidemia, unspecifiedOther problems related to medical facilities and other health careAltered mental status, unspecified Estab. patient 30-39min; chronic exacerbation, 2 stable chronic or 1 acute illness add add modifier 95 for video, (do not use for phone, instead use 22613-35) [facility]/10/2023 Type 2 diabetes mellitus wit h [...] (do not use for phone, instead use 25084-09) [facility] 12[place]10/20[place] Estab. patient 30-39min; chronic exacerbation, 2 stable chronic or 1 acute illness add add modifier 95 for video, (do not use for phone, instead use 60146-85) [facility] 12[place]10/2023 Estab. patient 30-39min; chronic exacerbation, 2 stable chronic or 1 acute illness add add modifier 95 for video, (do not use for phone, instead use 29245-88) [facility] 12[place]10/2023 Estab. patient 30-39min; chronic exacerbation, 2 stable chronic or 1 acute illness add add modifier 95 for video, (do not use for phone, instead use 76815-13) [facility] 12[place]10/2023 Estab. patient 30-39min; chronic exacerbation, 2 stable chronic or 1 acute illness add add modifier 95 for video, (do not use for phone, instead use 81787-37) [facility] 12[place]10/2023 Estab. patient 30-39min; chronic exacerbation, 2 stable chronic or 1 acute illness add add modifier 95 for video, (do not use for phone, instead use 44461-50) [facility] 12[place]10/2023 Estab. patient 30-39min; chronic exacerbation, 2 stable chronic or 1 acute illness add add modifier 95 for video, (do not use for phone, instead use 37843-02) [facility] 12[place]10/2023 Estab. patient 30-39min; chronic exacerbation, 2 stable chronic or 1 acute illness add add modifier 95 for video, (do not use for phone, instead use 81062-72) [facility] 12[place]10/2023 Estab. patient 30-39min; chronic exacerbation, 2 stable chronic or 1 acute illness add add modifier 95 for video, (do not use for phone, instead use 03348-63) [facility] [place] 12/10/2023 No Data Available [facility] [place] 12/18/2023 Major depressive disorder, recurrent, moderateType 2 diabetes mellitus with other specified complicationHyperlipidemia, unspecifiedPolyosteoarthritis, unspecifiedUnsteadiness on feetAnxiety disorder, unspecifiedOther problems related to medical facilities and other health careLow back pain, unspecifiedUnspecified fall, initial encounter No Data Available [facility] [place] 12/18/2023 No Data Available [facility] [place]/18[place]20[place] No Data Available [facility] [place]/18[place]20[place] No Data Available [facility] [place]/18[place]2023 No Data Available [facility] [place] 01[place]14/2024 Essential (primary) hypertensionType 2 diabetes mellitus with other specified complicationNicotine dependence, unspecified, in remissionHyperlipidemia, unspecifiedOther problems related to medical facilities and other health care No Data Available [facility] [place] 01[place]14/2024 No Data Available [facility] [place] 01/14/2024 No Data Available [facility] [place] 01[place]14/2024 No Data Available [facility] [place] 01/14/2024 No Data Available [facility] [place]/14/2024 No Data Available [facility] [place] 02/27/2024 Other malaiseRepeated fallsPersonal history of other medical treatment No Data Available [facility] [place] 02/27/2024 No Data Available [facility] [place] 02/27/2024 No Data Available [facility] [place] 02/27/2024 No Data Available [facility] [place] 03/08/2024 Anxiety disorder, unspecifiedAcute upper respiratory infection, unspecifiedOther problems related to medical facilities and other health care No Data Available [facility] [place] 03/08/2024 No Data Available [facility] [place] 03/08/20[place] Estab. patient 10-29min; 1 minor problem; add add modifier 95 for video, modifier 93 for phone [facility] [place] 03/12/2024 Acute upper respiratory infection, unspecifiedOther problems related to medical facilities and other health care Estab. patient 10-29min; 1 minor problem; add add modifier 95 for video, modifier 93 for phone [facility] [place] 03/12/20[place] Estab. patient 10-29min; 1 minor problem; add add modifier 95 for video, modifier 93 for phone [facility] [place] 04[place]07/2024 Low back pain, unspecifiedOt her problems related to medical facilities and other health care RN, CN or CP time with patient by phone; use with 1111F, BP, A1c or other CPTII codes [facility] 06[place]01/2024 Encounter for other specifie d aftercare RN, CN or CP time with patient by phone; use with 1111F, BP, A1c or other CPTII codes [facility], [place] 06/01/20[place] Estab. patient 10-29min; 1 minor problem; add add modifier 95 for video, modifier 93 for phone [facility], [place] 06/04/2024 Unspecified abdominal painOt her problems related to medical facilities and other health care Estab. patient 10-29min; 1 minor problem; add add modifier 95 for video, modifier 93 for phone [facility], ([place] 2024 Type 2 diabetes mellitus wit h other specified complicationHyperlipidemia, unspecifiedEmphysema, unspecifiedUnspecified urinary incontinenceUnspecified fall, subsequent encounterPersonal history of other medical treatment Estab. patient 10-29min; 1 minor problem; add add modifier 95 for video, modifier 93 for [facility], ([place] 2024 Estab. patient 10-29min; 1 minor problem; add add modifier 95 for video, modifier 93 for [facility], ([place] 2024 Estab. patient 10-29min; 1 minor problem; add add modifier 95 for video, modifier 93 for [facility], [place] 06/09/2024 Type 2 diabetes mellitus wit h other specified complicationHyperlipidemia, unspecifiedOther problems related to medical facilities and other health care Estab. patient 10-29min; 1 minor problem; add add modifier 95 for video, modifier 93 for phone [facility] ([place] 06/09/20[place] Estab. patient 10-29min; 1 minor problem; add add modifier 95 for video, modifier 93 for phone [facility], [place] 06/09/2024 Acute upper respiratory infection, unspecifiedEssential (primary) hypertensionType 2 diabetes mellitus with diabetic polyneuropathy Estab. patient 10-29min; 1 minor problem; add add modifier 95 for video, modifier 93 for phone [facility] ([place] 06/09/2024 Estab. patient 10-29min; 1 minor [...] 95 for video, modifier 93 for phone [facility] [place] 09[place]16/20[place] Estab. patient 10-29min; 1 minor problem; add add modifier 95 for video, modifier 93 for phone [facility] [place] 09/22/2024 Dorsalgia, unspecifiedUnsteadiness on feetEncounter for issue of repeat prescriptionHistory of falling Estab. patient 10-29min; 1 minor problem; add add modifier 95 for video, modifier 93 for phone [facility] [place] 09[place]22/2024 Estab. patient 10-29min; 1 minor problem; add add modifier 95 for video, modifier 93 for phone [facility] [place] 09/22/2024 Estab. patient 10-29min; 1 minor problem; add add modifier 95 for video, modifier 93 for phone [facility] [place] 09/22/2024 Estab. patient 10-29min; 1 minor problem; add add modifier 95 for video, modifier 93 for phone [facility] [place] 09[place]22/2024 Estab. patient 10-29min; 1 minor problem; add add modifier 95 for video, modifier 93 for phone [facility] [place] 09/24/2024 Dorsalgia, unspecifiedUnsteadiness on feetOther problems related to medical facilities and other health careHistory of falling Estab. patient 10-29min; 1 minor problem; add add modifier 95 for video, modifier 93 for phone [facility] [place] 09/24/20[place] Estab. patient 10-29min; 1 minor problem; add add modifier 95 for video, modifier 93 for phone [facility] [place] 09/24/2024 Vital Signs [...] tive Time Current Smoking Status Former smoker 3 Sex Male Gender identity Man History of Procedures Procedures Service Procedure code Service date Servicing provider Phone# New patient,40-59min; chronic exacerbation, 2 stable chronic or 1 acute illness add add modifier 95 for video (do not use for phone, instead use 66070-32) [id number] 2022-02-19 No Data Available No Data Availa [...] 1111F, BP, A1c or other CPTII codes 17234 2022-10-14 No Data Available No Data Avai lable Medications prescribed in hospital were reviewed and reconciled against what they were taking prior to admission during today's visit. (1111F) 1111F 2022-10-14 No Data Available No Data Availa ble Estab. patient 30-39min; chronic exacerbation, 2 stable chronic or 1 acute illness add add modifier 95 for video, (do not use for phone, instead use 77884-42) [id number] 2022-10-18 No Data Available No Data Availa [...] reviews and reporting CPTII codes (1111F, etc) 05937 2022-11-25 No Data Available No Data Availa ble DBP <80 (3078F) 3078F 2022-11-25 No Data Available No Data Available SBP < 130 (3074F) 3074F 2022-11-25 No Data Available No Data Available No Data Available [id number] 2023-02-24 No Data Available No Data Available [...] le No Data Available No Data Available [id number] 2023-04-04 No Data Available No Data Available [...] le No Data Available No Data Available [id number] 2023-07-08 No Data Available No Data Available No Data Available [id number] 2023-07-31 No Data Available No Data Available No Data Available [id number] 2023-08-26 No Data Available No Data Available No Data Available 18715 2023-10-02 No Data Available No Data Available Estab. patient 30-39min; chronic exacerbation, 2 stable chronic or 1 acute illness add add modifier 95 for video, (do not use for phone, instead use 00585-02) 97652 2023-12-10 No Data Available No Data Availa [...] No Data Avail able No Data Available [id number] 2023-12-18 No Data Available No Data Available [...] Available No Data Available No Data Available [id number] 2024-01-14 No Data Available No Data Available [...] No Data Availa ble No Data Available [id number] 2024-02-27 No Data Available No Data Available [...] No Data A vailable No Data Available [id number] 2024-03-08 No Data Available No Data Available [...] 95 for video, modifier 93 for phone [id number] 2024-03-12 No Data Available No Data Availa ble Medication List Documented (1159F) 1159F 2024-03-12 No Data Available No Data Colette ilable Estab. patient 10-29min; 1 minor problem; add add modifier 95 for video, modifier 93 for phone [id number] 2024-04-07 No Data Available No Data Availa ble RN, CN or CP time with patient by phone; use with 1111F, BP, A1c or other CPTII codes [id number] 2024-06-01 No Data Available No Data Avai [...] 95 for video, modifier 93 for phone [id number] 2024-06-15 No Data Available No Data Availa ble Most recent A1c (HbA1c) or GMI level 7-7.9% (3051F) 3051F 2024-06-15 No Data Available No Data Availa ble Estab. patient 10-29min; 1 minor problem; add add modifier 95 for video, modifier 93 for phone [id number] 2024-06-23 No Data Available No Data Availa ble Medication List Documented (1159F) 1159F 2024-06-23 No Data Available No Data Colette ilable Estab. patient 10-29min; 1 minor problem; add add modifier 95 for video, modifier 93 for phone [id number] 2024-09-14 No Data Available No Data Availa ble Estab. patient 10-29min; 1 minor problem; add add modifier 95 for video, modifier 93 for phone [id number] 2024-09-16 No Data Available No Data Availa ble Most recent A1c (HbA1c) or GMI level 8-9% (3052F) 3052F 2024-09-16 No Data Available No Data Availa ble Estab. patient 10-29min; 1 minor problem; add add modifier 95 for video, modifier 93 for phone [id number] 2024-09-23 No Data Available No Data Availa [...] 95 for video, modifier 93 for phone [id number] 2024-09-24 No Data Available No Data Availa [...] in last 6 months - Yes 2022-10-18 DOOR MANAGER coming in M-F only one h our per day (originally approved for 10 hours) 2023-04-04 uses cane and walker at home to ambulate 2023-12-18 DOOR MANAGER is his niece. Temp 2023-12-18 has meals on wheels coming in [...] denies monitoring BGLantus, TrulicityContinue to f/u w/ bead supervisor q3-6 months, monitor BG levels, discussed dietary and exercise interventions, contact us if develop hyperglycemia s/sxStableAlbuterol, FloventMonitor O2, take medications as Rx, continue f/u care w/ PCP [id number], contact us if you develop respiratory distressStableTamsulosinMonitor urine output, continue taking medication as prescribed, f/u PCP [id number], contact us if develop acute decrease in [...] denies monitoring BGLantus, TrulicityContinue to f/u w/ bead supervisor q3-6 months, monitor BG levels, discussed dietary and exercise interventions, contact us if develop hyperglycemia s/sxStableAlbuterol, FloventMonitor O2, take medications as Rx, continue f/u care w/ PCP [id number], contact us if you develop respiratory distressStableTamsulosinMonitor urine output, continue taking medication as prescribed, f/u PCP [id number], contact us if develop acute decrease in [...] denies monitoring BGLantus, TrulicityContinue to f/u w/ bead supervisor q3-6 months, monitor BG levels, discussed dietary and exercise interventions, contact us if develop hyperglycemia s/sxStableAlbuterol, FloventMonitor O2, take medications as Rx, continue f/u care w/ PCP [id number], contact us if you develop respiratory distressStableTamsulosinMonitor urine output, continue taking medication as prescribed, f/u PCP [id number], contact us if develop acute decrease in [...] coping mechanisms and benefits of potential verbal vepusyi25/18/23: feels more calm now that he's home; [...] denies monitoring BGLantus, TrulicityContinue to f/u w/ bead supervisor q3-6 months, monitor BG levels, discussed dietary and exercise interventions, contact us if develop hyperglycemia s/sxCONTINGENCY PLANMember to call for the following symptoms: Blood sugar <70/ Blood sugar >300/ More thirsty than usual/ Urinating more than usualPlanned intervention:StableAlbuterol, FloventMonitor O2, take medications as Rx, continue f/u care w/ PCP [id number], contact us if you develop respiratory distressStableTamsulosinMonitor urine output, continue taking medication as prescribed, f/u PCP [id number], contact us if develop acute decrease in [...] call CBContinue to see PCP. Follow[facility] with [facility] as needed for any acute [...] modifier 95)Continue to see PCP. Follow-up with [facility] as needed for any acute or disease education needs that may arise 30/09.Type 2 diabetes mellitus with HLDNo A1c on EMR, Pt denies monitoring BGLantus, TrulicityContinue to f/u w/ bead supervisor q3-6 months, monitor BG levels, discussed dietary and exercise interventions, contact us if develop hyperglycemia s/sxCONTINGENCY PLANMember to call for the following symptoms: Blood sugar <70/ Blood sugar >300/ More thirsty than usual/ Urinating more than usualPlanned intervention:StableAlbuterol, FloventMonitor O2, take medications as Rx, continue f/u care w/ PCP [id number], contact us if you develop respiratory distressStableTamsulosinMonitor urine output, continue taking medication as prescribed, f/u PCP [id number], contact us if develop acute decrease in [...] denies monitoring BGLantus, TrulicityContinue to f/u w/ bead supervisor q3-6 months, monitor BG levels, discussed [...] as Rx, continue f/u care w/ PCP [id number], contact us if you develop respiratory distressStableTamsulosinMonitor urine output, continue taking medication as prescribed, f/u PCP [id number], contact us if develop acute decrease in [...] joint pain increased [facility]. [facility] as needed for any acute or [...] modifier 95)Continue to see PCP. [facility] as needed for any acute or disease education needs that may arise 30/09.Type 2 diabetes mellitus with HLDNo A1c on EMR, Pt denies monitoring BGLantus, TrulicityContinue to f/u w/ bead supervisor q3-6 months, monitor BG levels, discussed [...] he reports that the patient needs more DOOR MANAGER hours to continue to providing adequate care. I provided [facility] CC number for follow up. Denies [...] call CBContinue to see PCP. Follow-up with [facility] as needed for any acute or disease education needs that may arise 30/09.what should be done when the member calls: see each individual diagnosis for contingency plan 2023-10-02 12:45:19 Phone (patient, pare nt, or guardian); 5-10 minutes of medical discussion (no modifier 95)Continue to see PCP. Follow-up with [facility] as needed for any acute or disease education needs that may arise 30/09.Type 2 diabetes mellitus with HLDNo A1c on EMR, Pt denies monitoring BGLantus, TrulicityContinue to f/u w/ bead supervisor q3-6 months, monitor BG levels, discussed [...] reports that the patient recently started with DOOR MANAGER (niece) to help with his care. He was previously non-compliant with his medications and insulin; DOOR MANAGER Crystal is helping with his medication [...] joint pain increased [facility]. Follow-up with Don as [...] he reports that the patient needs more DOOR MANAGER hours to continue to providing adequate care. I provided [facility] CC number for follow up. Denies [...] denies monitoring BGLantus, TrulicityContinue to f/u w/ bead supervisor q3-6 months, monitor BG levels, discussed [...] reports that the patient recently started with DOOR MANAGER (niece) to help with his care. He was previously non-compliant with his medications and insulin; DOOR MANAGER Crystal is helping with his medication management due to BS in 300's avg.StableAlbuterol, FloventMonitor O2, take medications as Rx, continue f/u care w/ PCP [id number], contact us if you develop respiratory distressStableTamsulosinMonitor urine output, continue taking medication as prescribed, f/u PCP [id number], contact us if develop acute decrease in [...] but in pain and frustrated about reduced DOOR MANAGER hours. Please keep a log and [...] call CBContinue to see PCP. [facility] as needed for any acute or [...] PT - asking PCP.Due to not enough DOOR MANAGER presence, has fallen a number of times recently, and hurt his ribs badly.Also needs medication reminders. Reduced DOOR MANAGER hours because they were sending meals on wheels. DOOR MANAGER has been with him since August [...] (with food)Patient verbalized understanding. Caregiver verbalized understanding.Reduced DOOR MANAGER hours because they were sending meals on wheels but has not received the meals yet.Also needs medication reminders now that his DOOR MANAGER is not there as much - at risk for noncompliance.Reduced DOOR MANAGER hours because they were sending meals on wheels. DOOR MANAGER has been with him since August and has not been paid yet.Messaged N for assistance. 2023-12-18 09:44:24 Phone (patient, pare [...] Will send via sms to his [facility] member to call: If he falls or feels dizzy and is at danger of fallingIf bp is elevated sbp>150; dbp>90 or symptomatic-h/a, dizziness, cp, sob. if BS >300 or BS<90 or symptomatic; i.e., dizzy, off balance , shaky, general weakness. if UTI symptoms arise-urinary frequency, dysuria, low abd pain. if pain in knees increases/ or joint pain increased [facility]. [facility] as needed for any acute or disease education needs that may arise 30/09.what should be done when the member calls: see each individual diagnosis for contingency planStableCymbaltaContinue taking medications, practice core ROM exercises as tolerable, contact us if develop increase in low back pain without reliefType 2 diabetes mellitus with HLDNo A1c on EMR, Pt denies monitoring BGLantus, TrulicityContinue to f/u w/ bead supervisor q3-6 months, monitor BG levels, discussed [...] reports that the patient recently started with DOOR MANAGER (niece) to help with his care. He was previously non-compliant with his medications and insulin; DOOR MANAGER Crystal is helping with his medication management due to BS in 300's avg.10..24: reports his BS have decreased. Now <200 [...] denies monitoring BGLantus, TrulicityContinue to f/u w/ bead supervisor q3-6 months, monitor BG levels, discussed [...] reports that the patient recently started with DOOR MANAGER (niece) to help with his care. He was previously non-compliant with his medications and insulin; DOOR MANAGER Crystal is helping with his medication management due to BS in 300's avg.10.10.24: reports his BS have decreased. Now <200 average. Is f/u wit pcp and reports good bs and good BP during visit no records available to review today01/14/2024 patient visited bead supervisor this week . patient states that his BG is controlled for the most part.StablePt denies monitoring BPLisinopril, MetoprololDiscussed dietary and exercise interventions, f/u w/ PCP q6-12 months, contact us develop emergent HTN s/sx10/2/24BP 150/76 today but in pain and frustrated about reduced DOOR MANAGER hours. Please keep a log and [...] at home and decided to get looked at.DOOR MANAGER hours were reduced just as he is getting weaker and his walking is unsafe.Needs PT - asking PCP.Due to not enough DOOR MANAGER presence, has fallen a number of times recently, and hurt his ribs badly.Also needs medication reminders. Reduced DOOR MANAGER hours because they were sending meals on wheels. DOOR MANAGER has been with him since August [...] to seek medical assistance or to call [facility].03/08/24 Patient reports fever, chills and congestion [...] modifier 95)Continue to see PCP. [facility] as needed for any acute or [...] joint pain increased Please [facility]. [facility] as needed for any acute or disease education needs that may arise 30/09.what should be done when the member calls: see each individual diagnosis for contingency plan 2024-04-07 05:25:01 Estab. patient 10-29 min; 1 minor problem; add add modifier 95 for video, modifier 93 for phoneContinue to see PCP. [facility] as needed for any acute or disease education needs that may arise 30/09.Add Contingency PlanStableCymbaltaContinue taking medications, practice core ROM exercises as tolerable, contact us if develop increase in low back pain without reliefER visit on 03/19/24 at [facility] for back pain. He reports feeling better, [...] with HLDA1C 11/7% 5Continue to f/u w/ bead supervisor q3-6 months, monitor BG levels, discussed dietary and exercise interventions, contact us if develop hyperglycemia s/s06/03/24: DOOR MANAGER/Ninoska Rojas reports that she recently restarted care [...] was hospitalized on 05/21-05/24 post fall at [facility].StableAlbuterol, FloventMonitor O2, take medications as Rx, continue f/u care w/ PCP [id number], contact us if you develop respiratory daczftyk65/16/2024 patient states he feels well at the moment. 06/03/24: Denies dyspnea 2024-06-09 07:50:22 Televideo 10-29min; 1 minor problem; add add modifier 95 for video, modifier 93 for phoneContinue to see PCP. Follow-up with Don as needed for any acute or disease education needs that may arise 30/09.Type 2 diabetes mellitus with HLDA1C 11/7% 5Continue to f/u w/ bead supervisor q3-6 months, monitor BG levels, discussed dietary and exercise interventions, contact us if develop hyperglycemia s/sx3/: DOOR MANAGER/Ninoska Crystal reports that she recently restarted care [...] with continued hyperglycemia.DIABETES CONTINGENCY PLANLast updated: 06/09/2024[facility] to call for the following symptoms: Blood sugar <70 / Blood sugar >300 / DeliriumPlanned intervention: Increase short-acting insulin to lispro 2 units/ Encourage adequate water intake/ Limit high-sugar and high-carbohydrate foods/ Go for a walkPlease call if you experience ANDOMINAL PAIN, swelling, constipation, diarrhea, nausea or vomitingPlanned intervention: Prescribe medication as appropriatePSYCH CONTINGENCY PLANLast updated: 03/08/2024[facility] to call for the following symptoms: [...] but in pain and frustrated about reduced DOOR MANAGER hours. Please keep a log and [...] was hospitalized on 05/21-05/24 post fall at [facility].06/11/24: Cg Daniela reports that the patient is currently in the ER [facility]. Patient was send by bead supervisor due to high BP, BS and possible infection. Cg reports that the patient complained of sore throat today. Reports BS yesterday 168 and he was feeling well. Scheduled a follow up for 2024-06-15 09:16:40 Estab. patient 10-29 min; 1 [...] visit 06/11, dx with strep throat at [facility]. Cg reports changes to insulin regimen due [...] medication as appropriatePSYCH CONTINGENCY PLANLast updated: 03/08/2024[facility] to call for the following symptoms: [...] was hospitalized on 05/21-05/24 post fall at [facility].06/11/24: Cg Daniela reports that the patient is currently in the ER [facility]. Patient was send by bead supervisor due to high BP, BS and possible infection. Cg reports that the patient complained of sore throat today. Reports BS yesterday 168 and he was feeling well. Scheduled a follow up for 06/15. Dx with strep throat, d/c with abx, MR requested.Type 2 diabetes mellitus with HLDA1C 11/7% ontinue to f/u w/ bead supervisor q3-6 months, monitor BG levels, discussed dietary and exercise interventions, contact us if develop hyperglycemia s/s06/03/24: DOOR MANAGER/Ninoska Crystal reports that she recently restarted care [...] for phoneContinue to see PCP. Follow-[facility] with [facility] as needed for any acute or disease education needs that may arise 30/09.Type 2 diabetes mellitus with HLDA1C 11/7% 5Continue to f/u w/ bead supervisor q3-6 months, monitor BG levels, discussed dietary and exercise interventions, contact us if develop hyperglycemia s/s06/03/24: DOOR MANAGER/Ninoska Rojas reports that she recently restarted care [...] reports BS 260 (without am insulin). Reports DOOR MANAGER will administer insulin soon. Insulin regimen updated. [...] medication as appropriatePSYCH CONTINGENCY PLANLast updated: 03/08/2024[facility] to call for the following symptoms: [...] 9% 1C 11/7% ontinue to f/u w/ bead supervisor q3-6 months, monitor BG levels, discussed dietary and exercise interventions, contact us if develop hyperglycemia s/s06/03/24: DOOR MANAGER/Ninoska Rojas reports that she recently restarted care [...] reports BS 260 (without am insulin). Reports DOOR MANAGER will administer insulin soon. Insulin regimen updated. He will call with any concerns. Message left to Daniela.09/14/24: Christopher Suarez reports that the patient A1C decreased to 9% recently. She has helped the patient make dietary changes, including changing regular soda to zero sugar alternative. Patient reports that he feels stable at this time.DIABETES CONTINGENCY PLANLast updated: 06/09/2024[facility] to call for the following symptoms: Blood sugar <70 / Blood sugar >300 / DeliriumPlanned intervention: Increase short-acting insulin to lispro 2 units/ Encourage adequate water intake/ Limit high-sugar and high-carbohydrate foods/ Go for a walkPlease call if you experience ANDOMINAL PAIN, swelling, constipation, diarrhea, nausea or vomitingPlanned intervention: Prescribe medication as appropriatePSYCH CONTINGENCY PLANLast updated: 03/08/2024[facility] to call for the following symptoms: Agitation/ Anxiety/ Insomnia/ Panic attacksPlanned intervention: Hydroxyzine (Vistaril) 25mg PO q6h PRN anxiety/ Encourage member to journal feelings/ Remind member of personal goal:/ Encourage use of home medication:/ Increase dose of current medication:/ Limit extra stimulation06/03/24: Cg requesting incontinence supplies, order placed on 06/08/24.09/14/24: Cg requesting washable bed chux and wipes. I provided number for [place] to add to current order. 2024-09-16 09:16:44 Estab. patient 10-29 min; 1 minor problem; add add modifier 95 for video, modifier 93 for phoneContinue to see PCP. [facility] with [facility] as needed for any acute or disease education needs that may arise 30/09.DIABETES CONTINGENCY PLANLast updated: 06/09/2024[facility] to call for the following symptoms: Blood sugar <70 / Blood sugar >300 / DeliriumPlanned intervention: Increase short-acting insulin to lispro 2 units/ Encourage adequate water intake/ Limit high-sugar and high-carbohydrate foods/ Go for a walkPlease call if you experience ANDOMINAL PAIN, swelling, constipation, diarrhea, nausea or vomitingPlanned intervention: Prescribe medication as appropriatePSYCH CONTINGENCY PLANLast updated: 03/08/2024[facility] to call for the following symptoms: Agitation/ Anxiety/ Insomnia/ Panic attacksPlanned intervention: Hydroxyzine (Vistaril) 25mg PO q6h PRN anxiety/ Encourage member to journal feelings/ Remind member of personal goal:/ Encourage use of home medication:/ Increase dose of current medication:/ Limit extra stimulationType 2 diabetes mellitus with HLDA1C 9% [id number] 11/7% 5Continue to f/u w/ bead supervisor q3-6 months, monitor BG levels, discussed dietary and exercise interventions, contact us if develop hyperglycemia s/s06/03/24: DOOR MANAGER/Ninoska Rojas reports that she recently restarted care [...] reports BS 260 (without am insulin). Reports DOOR MANAGER will administer insulin soon. Insulin regimen updated. [...] was hospitalized on 05/21-05/24 post fall at [facility]. Cg reports the patient had a [...] for ongoing monitoring and management #30 tablet [id number] Refill Diclofenac Sodium 1 % Gel 4 grams topically to affected area 4 times per day PRN pain #100 gram [id number] Refill QUEtiapine Fumarate 25 mg Tab TAKE 1 TABLET BY MOUTH AT BEDTIME- follow up with PCP for refills and ongoing monitoring and management #30 tablet RFx0 2024-09-24 08:37:04 Estab. patient 10-29 min; 1 minor problem; add add modifier 95 for video, modifier 93 for phoneSBP 130-139 (3075F)DBP 80-89 (3079F)Continue to see PCP. Follow-up with [facility] [...] was hospitalized on 05/21-05/24 post fall at [facility]. Cg reports the patient had a [...]
--- OUTSIDE RECORDS SUMMARY | 2024-12-10 11:49 | XMS_ITS | Clinical Summary ---
Author Organization [employer] Address [address] [place] [address] Care Team Providers Care Process Manager Name Role Phone Unavailable Primary Care [...] Screening 06/01/2023 05/31/2022 COVID-19 Vaccine ( season) 2024 Influenza Vaccine (#1) 2024 , 01/10/2021, 12/15/2018, [...] Most Recently Relevant to Health Maintenance [place] [phone] DENTAL - [facility]
--- OUTSIDE RECORDS SUMMARY | 2024-12-10 11:49 | XMS_ITS | Patient Health Record ---
Author Organization [facility] Address [address] [place] [address] Care Team Providers Care Market Development Executive Name Role Phone Hung ANDERSEN, [place] Primary Care Provider Steven Callahan [phone] Reason For Referral No Information Medications Medication [...] Problem Status W/U Status Risk Notes Problem 474561335 Encounter for screening for malignant neoplasm of colon (Z12.11) Active confirmed Problem 102838129203300 Preprocedural examination (Z01.818) Active confirmed Problem 199135925 Long-term use of aspirin therapy (Z79.82) Active confirmed Problem 70743997 Constipation, unspecified constipation type (K59.00) Active confirmed Problem 201902302 Elevated LFTs (R94.5) Active confirmed Plan Of Treatment Future Test Test Name Order Date COLONOSCOPY 02/02/2019 Insurance Providers Payer Name Payer Address Payer Phone Subscriber Number Group Number Insured Name Patient Relationship to Insured Coverage Start Date Coverage End Date MEDICARE OF [place] [address] [place] [address] [id number] GLEN VALDERRAMA Self - patient is the insured MEDICAID OF [facility] [address] [place] [phone] [id number] GLEN VALDERRAMA Self - patient is the insured Medical (General) History Medical History History ICD Code IDDM Hyperlipidemia Coronary artery disease Kidney disease Neuropathy Hypertension Benign hypertrophy of prostate Denies VA COPD small CVA's Sleep apnea, but does not use a CPAP EGD [place] [address] Chavis--mild gastri tis and duodenitis, no Hpylori Retinopathy Neuropathy Peripheral vascular disease Depression Anemia CKD vitamn B12 deficiency benign positional vertigo Surgical History Surgery Date(Month/Year) 4V CABG 2005 [facility] for gallstone pancreatitis in [address] Crowley Prostate
--- OUTSIDE RECORDS SUMMARY | 2024-12-10 11:49 | XMS_ITS | Clinical Summary ---
Author Organization [facility] Address [address] [place], [place] [id number] Phone Care Team Providers Care Bulking Machine Operator Name Role Phone Unavailable Primary Care [...] file Medical Devices Not on file Insurance DUAL MEDICARE REPLACEMENT DUAL MEDICARE REPLACEMENT DUAL MEDICARE REPLACEMENT Member Subscriber Plan / Payer (Ef fective 2024-Present) Name:Regan Gibbs Relation to Subscriber:Self Name:Regan Gibbs Payer ID:[id number] (NAIC) Group ID:Not on file Type:Medicare Address: [place] [phone] DUAL MEDICARE REPLACEMENT [facility] DUAL MEDICARE REPLACEMENT [facility] DUAL MEDICARE REPLACEMENT Additional Source Comments The information contained in this document represents components of the legal health record. It is not the complete legal health record.[facility]
[2024-12-10 16:31] VITALS: BP 166/62; PULSE 62; RESP 14; O2SAT 94
[2024-12-10 16:42] LABS: Appearance Urine Clear; Glucose Urine UA 100 mg/dL (Negative); PH 5.5 (5.0-9.0); Specific Gravity - Urine 1.020 (1.005-1.025); UMIC TRIGGER UACC YES
[2024-12-10 16:55] LABS: UACC Culture Trigger YES
[2024-12-10 20:21] VITALS: BP 166/62; PULSE 62; RESP 14; TEMP 36.3; O2SAT 94
== END 2024-12-10 20:23 | disposition home or self-care (01) ==
PROVIDERS: Emergency Provider Emergency Medicine; PCP Internal Medicine
DX: S09.90XA Unspecified injury of head, initial encounter (principal); S39.92XA Unspecified injury of lower back, initial encounter; R51.9 Headache, unspecified; R30.0 Dysuria; M79.602 Pain in left arm; N39.0 Urinary tract infection, site not specified; E11.9 Type 2 diabetes mellitus without complications; W01.0XXA Fall on same level from slipping, tripping and stumbling without subsequent striking against object, initial encounter; Z91.81 History of falling; Y93.9 Activity, unspecified; Y92.9 Unspecified place or not applicable; Y99.8 Other external cause status; Z79.899 Other long term (current) drug therapy
CPT/HCPCS: 36415; 70450; 72100; 80053; 81001; 85025; 87086; 87088; 87186; 99284

== ENCOUNTER → 2024-12-10 11:22 | Outpatient (BNV) | payer OTHER, SELFPAY | PROVIDERS: Emergency Provider Emergency Medicine; PCP Internal Medicine; Visit Provider Radiology Diagnostic Radiology | DX: S09.90XA Unspecified injury of head, initial encounter (principal); I67.82 Cerebral ischemia; G31.89 Other specified degenerative diseases of nervous system; M54.50 Low back pain, unspecified; M47.815 Spondylosis without myelopathy or radiculopathy, thoracolumbar region | CPT/HCPCS: 70450; 72100 ==

== ENCOUNTER 2025-02-01 14:28 | Outpatient (AMB) | payer OTHER, SELFPAY ==
--- NOTE | 2025-02-01 14:35 | MHC.PC.OV ---
Vital Signs 02/01/25 14:36 Height 5 ft 4 in Weight 210 lb 15.718 oz BMI 36.2 BP 120/64 Blood Pressure Location Lt brachial Position Sitting Pulse 57 Pulse Source Pulse Oximeter Temp 96.9 F Temp Source Temporal Artery Scan Pulse Oximetry (%) 95 Oxygen Delivery Method Room Air Intake Visit Reasons: annual exam - see comments Intake Note: Patient is here today for a physical. Guest Service Manager Required: Yes Guest Service Manager Language: Hungarian Information Interpreted: non-clinical & clinical Physician Support Coordinator: Present Accompanied by: Niece Allergies hydromorphone (Dilaudid) Adverse Reaction (Unknown, Verified 02/01/25 14:53) confusion From DILAUDID Adverse Reaction (Severe, Uncoded 02/01/25 14:53) CONFUSION/HALLUCIATIONS From PERCOCET Adverse Reaction (Intermediate, Uncoded 02/01/25 14:53) AGITATION Medication List - Last Reconciled 02/01/25 by Lisa Morris MD [Active Mal guard pads 6 x 11 As directed] albuterol sulfate 90 mcg/actuation 2 puffs PO Q4-6H PRN aspirin 81 mg PO DAILY atorvastatin 80 mg PO DAILY 90 days blood-glucose sensor (FreeStyle Wiona 3 Plus Sensor device) Apply 1 new sensor every 15 days as directed to monitor blood glucose continuously. blood-glucose,cellar pumper,cont (FreeStyle [place] 3 [place]) as directed cholecalciferol (vitamin D3) (Vitamin D3) 50 mcg PO DAILY [Cleansing wipes As directed] clotrimazole-betamethasone 1-0.05 % appl topical BID cyanocobalamin (vitamin B-12) 1,000 mcg PO DAILY 90 days dextrose (TRUEplus Glucose) 15 grams (32 mL) PO Q15M PRN dicyclomine 20 mg PO TID PRN [Disposable 30x30 polymer pads heavy floweds As directed] docusate sodium 100 mg PO BID PRN 30 days fluticasone propionate 50 mcg/actuation 1 spray intranasal DAILY gabapentin 400 mg PO TID glucose (TRUEplus Glucose) 15 grams (4 x 3.75 gram) PO .every 15 minutes PRN insulin glargine U-300 conc (Toujeo Max U-300 SoloStar) 28 units subcut BEDTIME insulin lispro 2 - 12 units subcut TID insulin syr/ndl U100 half gareth Use 4 times daily lidocaine 5% 1 patch topical DAILY lisinopril 10 mg PO DAILY 90 days lorazepam (Ativan) 1 mg PO BEDTIME PRN memantine (Namenda) 5 mg PO BID metaxalone 800 mg PO BEDTIME metformin ER 500 mg PO BID metoclopramide HCl (Reglan) 10 mg PO AC PRN metoprolol tartrate 50 mg PO BID [monthly medication organizer (med box) monthly medication organizer box; ] [Monthly Medication Organizer (Med-Box) ] naproxen 500 mg PO BID PRN omeprazole 40 mg PO DAILY ondansetron 4 mg PO Q6-8H PRN oxybutynin chloride ER 10 mg PO DAILY paroxetine HCl 40 mg PO DAILY pen needle, diabetic (BD Ultra-Fine Brittany Pen Needle) test 3 times daily phenazopyridine (Pyridium) 200 mg PO TID 2 days polyethylene glycol 3350 (Miralax) 17 grams PO DAILY [Powder free synthetic exam gloves As directed] quetiapine 25 mg PO BEDTIME [Semi-Electric Hospital Bed As directed] [SHOWER CHAIR As directed] [SHOWER CHAIR As directed] tamsulosin (Flomax) 0.4 mg PO BEDTIME [WALKER As directed] walker As directed Tobacco use date assessed: 02/01/25 Fall risk assessment: 2 + Falls in past year (12/29/24-12/30/24) Last assessed Fall Risk: 02/01/25 Dental Screening Dental Screen Date: 04/23/24 HPI HPI Comments History of Present Illness Details The patient is a 69 year old individual presenting for a physical examination. The patient has a diagnosis of vascular dementia and takes Namenda for memory. Currently in a wheelchair due to bilateral leg weakness. Up-to-date with pneumonia and Tdap vaccine. Unknown if he had the influenza vaccine this year. The patient has a history of diabetes with a hemoglobin A1c of 8.7%. The condition is managed with insulin and metformin twice daily. For hypertension, the patient takes lisinopril 10 mg and metoprolol, and atorvastatin for cholesterol. The patient has a history of a fall with a back injury, and manages associated pain with a lidocaine patch, and naproxen as needed. The patient has a history of anemia noted a year ago. Other medications include paroxetine for depression with anxiety, lorazepam, tamsulosin for the prostate, oxybutynin for urinary symptoms, metoclopramide for stomach issues, and dicyclomine. The patient also takes vitamin D and B12 supplements. [facility] Medical History (Updated 02/01/25 @ 15:22 by Lisa Morris MD) Vascular dementia MCI (mild cognitive impairment) Dementia Decreased oral intake Sore throat Weakness At risk for elder neglect Anxiety Type 2 diabetes mellitus with neurologic complication Gastritis and duodenitis Vitamin B12 deficiency Hyperkalemia Intertrigo Major depressive disorder, recurrent Benign prostatic hyperplasia with urinary frequency Constipation Obstructive sleep apnea Vitamin D deficiency Diabetic polyneuropathy Diabetes mellitus Obesity (BMI 30-39.9) Benign essential hypertension Pure hypercholesterolemia Coronary artery disease Surgical History Hx of cataract extraction (~2011) History of quadruple bypass (~2005) Hx of cystoscopy History of prostate surgery (~12/04/10) Hx of cholecystectomy (~2007) Family History Father Lung cancer Mother Diabetes Hypertension Stomach cancer Social History Household Members: None Housing: Apartment Do you presently have visiting nurse or other home services: No Alcohol intake: never Patient Tobacco Use Status: Former Tobacco user e-Cigarette/Vaping Use: Never Used Second Hand Smoke Exposure: Yes Advance Directives Date on File: 07/24/23 service: No Current occupational status: disabled Cognitive needs: Yes (cane) Hearing needs: No Vision needs: Yes Questionnaire PHQ-9 Over the last 2 weeks, how often have you been bothered by any of the following problems? 1. Little interest or pleasure in doing things: nearly every day 2. Feeling down, depressed, or hopeless: more than half the days 3. Trouble falling or staying asleep, or sleeping too much: several days 4. Feeling tired or having little energy: more than half the days 5. Poor appetite or overeating: several days 6. Feeling bad about yourself - or that you are a failure or have let yourself or your family down: more than half the days 7. Trouble concentrating on things, such as reading the newspaper or watching television: more than half the days 8. Moving or speaking so slowly that other people could have noticed. Or the opposite - being so fidgety or restless that you have been moving around a lot more than usual: several days 9. Thoughts that you would be better off or of hurting yourself in some way: more than half the days Total score: 16 Depression Screening Interpretation: Positive (no suicidal thoughts) Depression Screening Follow-up: Existing condition and Follow-up Visit Requested Depression Screening Done: Yes 38170 - PHQ-9 Billing: Yes Source: Developed by Drs. Steven Miller, Monie Garduno, Trevor Lin and colleagues, with an educational kwabena from [employer]. Thrive Questionnaire Date Thrive assessed: 04/23/24 I am a: Patient What is your living situation today?: I have a steady place to live Within the past 12 months, did the food you bought not last and you didn't have the money to get more?: Never true Within the past 12 months, did you worry whether your food would run out before you got money to buy more?: Never true Do you have trouble paying for medicines?: No Do you have trouble getting transportation to medical appointments?: No Do you have trouble paying your heating and electricity bill?: No Do you have trouble taking care of your child, family member or friend?: No Do you have trouble with day-to-day activities such as bathing, preparing meals, shopping, managing finances, etc.?: Yes Are you currently unemployed and looking for a job?: No Are you interested in more education?: No Please select the resources that you would like help with: Care for elder or disabled and Daily support Currently or been in a relationship where the following occur: No concerns reported THRIVE Score: 0 AUDIT C Alcohol Use Questionnaire (AUDIT-C) 1. How often do you have a drink containing alcohol?: Never Total Score: 0 Score Reviewed/Action Taken: No CHEL-7 AMB Questionnaire CHEL-7 Date CHEL - 7 assessed: 02/01/25 Feeling nervous, anxious, or on edge: 3 = Nearly every day Not being able to stop or control worryin = More than half the days Worrying too much about different things: 3 = Nearly every day Trouble relaxin = More than half the days Being so restless that it is hard to sit still: 1 = Several days Becoming easily annoyed or irritable: 3 = Nearly every day Feeling afraid as if something awful might happen: 1 = Several days Total CHEL-7 score (0-4 normal; 5-9 mild; 10-14 moderate; 15-21 severe): 15 Source: Developed by Drs. Steven Miller, Monie Garduno, Trevor Lin and colleagues, with an educational kwabena from [employer]. CHEL-7 Assessment Billing CHEL-7 Assessment Tool: CHEL-7 Assessment 30736 Review of Systems Const All systems reviewed & are unremarkable except as noted in HPI and below Card Denies chest pain at rest, Denies chest pain with activity, Denies edema, Denies irregular heart rhythm, Denies claudication, Denies dyspnea, Denies dyspnea on exertion, Denies orthopnea, Denies paroxysmal nocturnal dyspnea and Denies slow heart rate Resp Denies cough, Denies dyspnea and Denies dyspnea on exertion GI Denies abdominal pain, Denies change in bowel habits, Denies excessive flatus, Denies nausea and Denies vomiting Physical exam (Primary Care) Vital Signs: Last Vital Signs Temp 96.9 F 02/01/25 14:36 Pulse 57 02/01/25 14:36 BP 120/64 02/01/25 14:36 Pulse Ox 95 02/01/25 14:36 Oxygen Delivery Method Room Air 02/01/25 14:36 BMI result Body Mass Index 36.2 BMI Assessment/Plan discussion: High BMI High, discussed plan: lifestyle, weight reduction, dietary and physical activity Tobacco/Smoking Status: Tobacco use Status Tobacco use date assessed 02/01/25 02/01/25 14:42 Patient Tobacco Use Status Former Tobacco user 02/01/25 14:42 e-Cigarette/Vaping Use Never Used 02/01/25 14:42 PHQ-9: PHQ-9 Score PHQ-9: Total score 16 02/01/25 14:49 Depression Screening Interpretation: Positive (no suicidal thoughts) Depression Screening Follow-up: Existing condition and Follow-up Visit Requested Thrive Assessment: Date of Thrive Assessment Date Thrive assessed 04/23/24 02/01/25 14:42 Currently or been in a relationship where the following occur: No concerns reported Const Limitations: wheelchair HENMT Head: Yes normal to inspection, Yes normocephalic and Yes atraumatic Ears: external ears normal Eyes General: appearance normal, both eyes and all related structures Eyelids: Yes eyelids normal Conjunctivae: conjunctivae normal Neck Neck: Yes normal visual inspection and Yes supple Resp Effort & Inspection: normal respiratory effort Auscultation: clear to auscultation bilaterally Cardio Jugular venous distension: no JVD Rate: regular rate Rhythm: regular rhythm Heart sounds: S1 normal heart sound present and S2 normal heart sound present GI Inspection: Yes normal to inspection Palpation (GI): Soft to palpation and nontender Auscultation: normal bowel sounds Skin General skin exam: no rashes or lesions noted Neuro General: no focal motor deficits Extrem General: Yes full ROM Psych Appearance: grossly normal Results AMB Hemoglobin A1c AMB Hemoglobin A1c 8.7 % Last Edit by DEVORA Rogers on 02/01/25 14:50 Results Reviewed Results Reviewed: Laboratory Last Values Hgb A1c (Clinic) 8.7 % (4.0-6.0) H 02/01/25 14:35 Coding Level of Care Code Est Pt Level 4 (04756) Est Pt Prev Care >65y(67993) Diagnoses Annual physical exam Z00.00 Diabetic polyneuropathy associated with type 2 diabetes mellitus E11.42 Diabetes mellitus type: type 2 Erectile dysfunction N52.9 Episode of recurrent major depressive disorder, unspecified depression episode severity F33.9 Active/Remission status: currently active Major depression episode severity: unspecified Diabetic retinopathy E11.319 Additional Codes PHQ-9 - 04022 - PHQ-9 Billing: Yes ([id number]) CHEL-7 Assessment Billing - CHEL-7 Assessment Tool: CHEL-7 Assessment [id number] ([id number]) Time Spent (min) 39 Assessment & Plan Assessment & Plan (1) Annual physical exam: Code(s): Z00.00 - Encounter for general adult medical examination without abnormal findings Category: Medical (2) Diabetic polyneuropathy: Code(s): E11.42 - Type 2 diabetes mellitus with diabetic polyneuropathy Category: Medical Qualifiers: Diabetes mellitus type: type 2 Qualified Code(s): E11.42 - Type 2 diabetes mellitus with diabetic polyneuropathy (3) Erectile dysfunction: Code(s): N52.9 - Male erectile dysfunction, unspecified Category: Medical (4) Major depressive disorder, recurrent: Code(s): F33.9 - Major depressive disorder, recurrent, unspecified Category: Medical Qualifiers: Active/Remission status: currently active Major depression episode severity: unspecified Qualified Code(s): F33.9 - Major depressive disorder, recurrent, unspecified (5) Diabetic retinopathy: Code(s): E11.319 - Type 2 diabetes mellitus with unspecified diabetic retinopathy without macular edema Category: Medical Plan Plan 1. Annual Physical Examination The patient presented for a routine physical. Medications were reviewed, and it was confirmed that vaccinations are up to date. A cream was prescribed. 2. Type 2 Diabetes Mellitus The patient's hemoglobin A1c is 7.58. Continue current management with insulin and metformin. 3. Vascular Dementia The patient has an established diagnosis of vascular dementia. Continue Namenda for memory. 4. Anemia The patient has a history of anemia from one year ago and appears pale. No changes to the plan were discussed. 5. Polypharmacy An extensive medication review was conducted, noting medications that can cause sleepiness, such as hydroxyzine and paroxetine. Continue current medications as prescribed. The patient will continue with occupational therapy. Orders: Orders Vitamin B12 and Folate 4 Months E53.8 - Deficiency of other specified B group vitamins Microalbumin, Random (w Creat) 4 Months R80.9 - Proteinuria, unspecified AMB Hemoglobin A1c Today E11.42 - Type 2 diabetes mellitus with diabetic polyneuropathy, E11.9 - Type 2 diabetes mellitus without complications, Z79.4 - half-way (current) use of insulin Vitamin D 25-OH Total 4 Months E55.9 - Vitamin D deficiency, unspecified Lipid Panel 4 Months E78.5 - Hyperlipidemia, unspecified Complete Blood Count Auto Diff 4 Months D64.9 - Anemia, unspecified IRON PROFILE 4 Months D64.9 - Anemia, unspecified Comprehensive [place]. 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 Referrals Counseling Referral F33.9 - Major depressive disorder, recurrent, unspecified Urology Referral N52.9 - Male erectile dysfunction, unspecified Medications: New clotrimazole-betamethasone 1-0.05 % 1 appl topical BID 15 grams 1RF 30 days gabapentin 300 mg PO TID 90 caps 1RF 30 days Refilled memantine (Namenda) 5 mg PO BID 180 tabs 0RF omeprazole 40 mg PO DAILY 30 caps 3RF quetiapine 25 mg PO BEDTIME 90 tabs 0RF docusate sodium 100 mg PO BID PRN 60 caps 3RF constipation 30 days Discontinued phenazopyridine (Pyridium) Discontinued Reason: Patient Completed Course 200 mg PO TID 2 days 6 tabs 0RF gabapentin Discontinued Reason: Patient Completed Course 400 mg PO TID 270 caps 1RF metaxalone Discontinued Reason: Order 800 mg PO BEDTIME 10 tabs 0RF G89.29 - Other chronic pain, M54.50 - Low back pain, unspecified
[2025-02-01 14:36] VITALS: BP 120/64; PULSE 57; TEMP 36.1; O2SAT 95; BMI 36.2
--- OUTSIDE RECORDS SUMMARY | 2025-02-01 18:21 | XMS_ITS ---
Author Name Luca Garduno NP Address [address] [place] [address] Phone [phone] [facility] [employer] [facility] Care Team Providers Care Borough Coordinator Name Role Phone Luca Garduno Unavailable [phone] Unavailable Unavailable [phone] Unavailable Unavailable [phone] [facility], [facility] Unavailable Unavailable Unavailable Unavailable Olga Angel Unavailable [phone] [facility], [place] Unavailable Jerry Persaud Unavailable [phone] Reason for Referral Not Available Allergies, adverse [...] capsules orally TID 2021-03-28 No Data Available Tojose manuel SoloStar 300 UNIT/ML Solution Pen-injector Subcutaneous 120U IN THE Bedtime. 2021-05-14 No Data Available B-D PEN NDL SHRT [id number](07/23) ANNAMARIE USE TO INJECT 3 TIMES DAILY 2021-06-05 2023-12-12 Clotrimazole-Betamethasone 1-0.05 % Crm APPLY TOPICALLY TO THE AFFECTED AREA TWICE DAILY FOR 15 DAYS 2021-11-26 No Data Available Lisinopril 10 mg Tab TAKE 1 TABLET BY [facility] DAILY 2022-02-05 2024-06-01 Trulicity 1.5 [...] 2022-03-12 No Data Available OneTouch Delica Plus Fhdfil22L Miscellaneous TEST BLOOD SUGAR THREE TIMES DAILY 2022-03-13 No Data Available UltiCare Pen Needle 31 gauge x 07/23 USE THREE TIMES DAILY DIRECTED 2022-03-12 2023-12-12 Omeprazole 40 mg Cap delayed rel TAKE 1 CAPSULE BY MOUTH EVERY DAY 2022-06-10 No Data Available FreeStyle Iwona 3 Sensor Miscellaneous USE DIRECTED. CHANGE EVERY 14 DAYS. 2022-06-12 No Data Available Amoxicillin-Pot Clavulanate 875/125 mg Tab TAKE 1 TABLET BY MOUTH TWICE DAILY 2022-07-05 No Data Available PARoxetine 40 mg Tab TA[facility] 1 TABLET BY [facility] DAILY 2022-07-12 No Data Available Polyethylene Glycol 3350 17 GM Packet Mix 1 packet in 8 ounces of water, juice, coffee or tea and drink once a day 2022-07-14 No Data Available Vitamin D3 50 mcg (2,000 unit) capsule TAKE 1 CAPSULE BY MOUTH DAILY 2021-09-07 No Data Available predniSONE 20 mg Tab TAKE 2 TABLETS BY [facility] DAILY x 3days 2022-10-11 [...] a day as needed for pain 2023-12-10 2024-12-13 Dicyclomine 20 mg Tab 1 tablet orally 2 times a day PRN 2023-12-10 No Data Available Metoclopramide 10 mg Tab 1 tablet orally 3 times per day before meals and QHS PRN 2023-12-10 2024-06-01 BD ULTRA-FINE SHAJI PEN NEEDL E 32 GAUGE X 5/32 USE THREE TIMES DAILY 2023-04-02 2023-12-12 TechLITE Pen Needle 32 gauge x 5/32 USE THREE TIMES DAILY 2023-04-022023-12-12 Phenazopyridine 200 mg Tab TAKE 1 TABLET [...] 1 mg Tab TAKE 1 TABLET BY AT BEDTIME NEEDED FOR ANXIETY OR for [...] continue taking medication as prescribed, f/u PCP [id number], contact us if develop acute decrease in [...] medications. Osteoarthritis, multiple sites Active 2023-12-18 N/A -Gabapentin-Lido sujit patch-follow ups with pcp Unsteady gait Active 2023-12-18 N/A -multiple f alls-plans to see Neurology 12.15.24-CG to continue to encourage use of Walker -monitor BP and slow care movements from sitting to standing Anxiety Active 2024-03-08 N/A Patient report s [...] to seek medical assistance or to call [facility]. Low back pain Active 2022-02-23 N/A StableCymba ltaContinue taking medications, practice core ROM exercises as tolerable, contact us if develop increase in low back pain without relief History of fallUnsteady gaitBack pain Active 2023-04-04 N/A 06/03/24: Patient was hospitalized on 05/21-05/24 post fall at [facility]. Cg reports the patient had a [...] walker in the home. Fall precautions reviewed. 12.13.24-had ER visit on 12.10.24 after a fall --walking to his wheelchair and CG states it was like he passed out but came right back awake. NO injuries in fall. ER completed CT scan and xray of back -all negative. -has Neurology follow up on 12.15.24. plans to discuss falls and ask about PT-encouraged use of Walker at home. reminders to use each time he gets up and to stand for a few mins prior to walking to get balance. Incontinence Active 2024-06-08 N/A 06/03/24: Cg requesting incontinence supplies, order placed on 06/08/24.09/14/24: Cg requesting washable bed chux and wipes. I provided number for [place] to add to current order. Chronic obstructive airway diseasePulmonary emphysema, unspecified emphysema type Active 2022-02-19 N/A StableAlbuterol, FloventMonitor O2, take medications as Rx, continue f/u care w/ PCP [id number], contact us if you develop respiratory distress Other problems related to medical facilities and other health care Active 2024-03-08 N/A FALL CO NTINGENCY PLANMember to call for the following symptoms: Fall / Refusing to use walker / WeaknessPlanned intervention: Encourage extra fluid intake / Review importance of sitting for two to three minutes prior to standing after laying down Hypertension Active 2022-02-19 N/A StablePt den ies monitoring BPLisinopril, MetoprololDiscussed dietary and exercise interventions, f/u w/ PCP q6-12 months, contact us develop emergent HTN s/sx1BP 150/76 today but in pain and frustrated about reduced [facility]ASS[facility]ER hours. Please keep a log and we [...] continued or worsening symptoms.F/U with JILLIAN 06/11/24 Diabetes mellitus with other complicationsHLD Active 2022-02-19 N/A Type 2 di abetes mellitus with HLDA1C 9% [id number] 11/7% ontinue to f/u w/ ecclesiastical worker q3-6 months, monitor BG levels, discussed dietary and exercise interventions, contact us if develop hyperglycemia s/s09/14/24: Christopher Suarez reports that the patient A1C decreased to 9% recently. She has helped the patient make dietary changes, including changing regular soda to zero sugar alternative. Patient reports that he feels stable at this time. Encounters Encounters Type Facility Date of Service Diagnosis/Co mplaint New patient,40-59min; chronic exacerbation, 2 stable chronic or 1 acute illness add add modifier 95 for video (do not use for phone, instead use 18264-51) [facility] [place] Morbid (severe) obesity due to excess caloriesBody mass index (BMI) 40.0-44.9, adultChronic obstructive pulmonary disease, unspecifiedEnlarged prostate without lower urinary tract symptomsType 2 diabetes mellitus with diabetic polyneuropathyEssential (primary) hypertensionHyperlipidemia, unspecifiedMajor depressive disorder, single episode, in full remissionLow back pain, unspecifiedAthscl heart disease of [place] coronary artery w/o ang pctrsType 2 diabetes mellitus with other specified complicationLong term (current) use of insulin New patient,40-59min; chronic exacerbation, 2 stable chronic or 1 acute illness add add modifier 95 for video (do not use for phone, instead use 56923-11) [facility] New patient,40-59min; chronic exacerbation, 2 stable chronic or 1 acute illness add add modifier 95 for video (do not use for phone, instead use 35410-47) [facility] New patient,40-59min; chronic exacerbation, 2 stable chronic or 1 acute illness add add modifier 95 for video (do not use for phone, instead use 53743-50) [facility] New patient,40-59min; chronic exacerbation, 2 stable chronic or 1 acute illness add add modifier 95 for video (do not use for phone, instead use 03937-52) [facility] New patient,40-59min; chronic exacerbation, 2 stable chronic or 1 acute illness add add modifier 95 for video (do not use for phone, instead use 95367-31) [facility] 02[place]2022 RN, CN or CP time with patient by phone; use with 1111F, BP, A1c or other CPTII codes [facility] ([place]) 10/14/2022 Encounter for other specifie d aftercare RN, CN or CP time with patient by phone; use with 1111F, BP, A1c or other CPTII codes [facility] [place] 10/14/2022 Estab. patient 30-39min; chronic exacerbation, 2 stable chronic or 1 acute illness add add modifier 95 for video, (do not use for phone, instead use 63126-43) [facility]20[place] Type 2 diabetes mellitus wit h [...] (do not use for phone, instead use 28119-53) [facility] Estab. patient 30-39min; chronic exacerbation, 2 stable chronic or 1 acute illness add add modifier 95 for video, (do not use for phone, instead use 49490-97) [facility]20[place] Estab. patient 30-39min; chronic exacerbation, 2 stable chronic or 1 acute illness add add modifier 95 for video, (do not use for phone, instead use 29306-44) [facility]18[place]20[place] Estab. patient 30-39min; chronic exacerbation, 2 stable chronic or 1 acute illness add add modifier 95 for video, (do not use for phone, instead use 26448-06) [facility] ([place]18/2022 Estab. patient 30-39min; chronic exacerbation, 2 stable chronic or 1 acute illness add add modifier 95 for video, (do not use for phone, instead use 64713-09) [facility]18[place]20[place] Estab. patient 30-39min; chronic exacerbation, 2 stable chronic or 1 acute illness add add modifier 95 for video, (do not use for phone, instead use 68042-53) [facility]18[place]20[place] Estab. patient 30-39min; chronic exacerbation, 2 stable chronic or 1 acute illness add add modifier 95 for video, (do not use for phone, instead use 76502-91) [facility]18[place]20[place] Estab. patient 30-39min; chronic exacerbation, 2 stable chronic or 1 acute illness add add modifier 95 for video, (do not use for phone, instead use 05504-63) [facility] ([place]18[place] Estab. patient 30-39min; chronic exacerbation, 2 stable chronic or 1 acute illness add add modifier 95 for video, (do not use for phone, instead use 89342-08) [facility]2022 Unlisted special service; to be used for medical record reviews and reporting CPTII codes (1111F, etc) [facility] ([place] 11/[place]/2022 Other specified health statu s Unlisted special service; to be used for medical record reviews and reporting CPTII codes (1111F, etc) [facility]/2022 Unlisted special service; to be used for medical record reviews and reporting CPTII codes (1111F, etc) [facility]/2022 No Data Available [facility]2023 Type 2 diabetes mellitus wit h other specified complicationEmphysema, unspecifiedEnlarged prostate without lower urinary tract symptomsType 2 diabetes mellitus with diabetic polyneuropathyEssential (primary) hypertensionHyperlipidemia, unspecifiedMajor depressive disorder, single episode, in full remissionLow back pain, unspecifiedAthscl heart disease of [place] coronary artery w/o ang pctrsMorbid (severe) obesity due to excess caloriesBody mass index (BMI) 40.0-44.9, adult No Data Available [facility] No Data Available [facility] No Data Available [facility] No Data Available [facility] No Data Available [facility] No Data Available [facility]20[place] Type 2 diabetes [...] initial encounterAnxiety disorder, unspecified No Data Available [facility]20[place] No Data Available [facility] No Data Available [facility] No Data Available [facility]20[place] No Data Available [facility] No Data Available [facility] No Data Available [facility] No Data Available [facility] 05[place]02[place]2023 Type 2 diabetes mellitus wit h other specified complicationEmphysema, unspecifiedEnlarged prostate without lower urinary tract symptomsType 2 diabetes mellitus with diabetic polyneuropathyEssential (primary) hypertensionHyperlipidemia, unspecifiedLow back pain, unspecifiedAthscl heart disease of [place] coronary artery w/o ang pctrsBody mass index (BMI) 40.0-44.9, adultMorbid (severe) obesity due to excess caloriesOther problems related to medical facilities and other health careUnspecified fall, initial encounterAnxiety disorder, unspecifiedMajor depressive disorder, recurrent, moderate No Data Available [facility]02[place]20[place] No Data Available [facility] No Data Available [facility] No Data Available [facility] No Data Available [facility] No Data Available [facility]/2023 Type 2 diabetes mellitus wit h diabetic polyneuropathyType 2 diabetes mellitus with other specified complicationHyperlipidemia, unspecifiedEmphysema, unspecifiedMorbid (severe) obesity due to excess caloriesBody mass index (BMI) 40.0-44.9, adultMajor depressive disorder, recurrent, moderateEnlarged prostate without lower urinary tract symptomsEssential (primary) hypertensionLow back pain, unspecifiedOther problems related to medical facilities and other health careAnxiety disorder, unspecifiedUnspecified fall, subsequent encounter No Data Available [facility] 05[place]/2023 No Data Available [facility] 05[place]/2023 No Data Available [facility]20[place] No Data Available [facility]/20[place] No Data Available [facility] 05[place]/20[place] No Data Available [facility] 07[place]08/2023 Type 2 diabetes mellitus wit h other specified complicationHyperlipidemia, unspecifiedLong term (current) use of insulinLong-term (current) use of injectable non-insulin antidiabetic drugsOther problems related to medical facilities and other health care No Data Available [facility] 07[place]/2023 Altered mental status, unspecified No Data Available [facility] 08/[place]/2023 Altered mental status, unspecifiedOther problems related to medical facilities and other health care No Data Available [facility] 10[place]02/2023 Type 2 diabetes mellitus wit h other specified complicationHyperlipidemia, unspecifiedOther problems related to medical facilities and other health careAltered mental status, unspecified Estab. patient 30-39min; chronic exacerbation, 2 stable chronic or 1 acute illness add add modifier 95 for video, (do not use for phone, instead use 92186-89) [facility]2023 Type 2 diabetes mellitus wit h [...] (do not use for phone, instead use 41635-72) [facility]/20[place] Estab. patient 30-39min; chronic exacerbation, 2 stable chronic or 1 acute illness add add modifier 95 for video, (do not use for phone, instead use 48287-46) [facility] 12[place]/2023 Estab. patient 30-39min; chronic exacerbation, 2 stable chronic or 1 acute illness add add modifier 95 for video, (do not use for phone, instead use 57250-46) [facility] ([place] 12[place]10/2023 Estab. patient 30-39min; chronic exacerbation, 2 stable chronic or 1 acute illness add add modifier 95 for video, (do not use for phone, instead use 23672-64) [facility] [place] 12[place]/2023 Estab. patient 30-39min; chronic exacerbation, 2 stable chronic or 1 acute illness add add modifier 95 for video, (do not use for phone, instead use 96172-21) [facility] 12[place]20[place] Estab. patient 30-39min; chronic exacerbation, 2 stable chronic or 1 acute illness add add modifier 95 for video, (do not use for phone, instead use 90850-46) [facility] 12[place]/2023 Estab. patient 30-39min; chronic exacerbation, 2 stable chronic or 1 acute illness add add modifier 95 for video, (do not use for phone, instead use 24391-88) [facility] Estab. patient 30-39min; chronic exacerbation, 2 stable chronic or 1 acute illness add add modifier 95 for video, (do not use for phone, instead use 13090-40) [facility] Estab. patient 30-39min; chronic exacerbation, 2 stable chronic or 1 acute illness add add modifier 95 for video, (do not use for phone, instead use 64829-64) [facility] No Data Available [facility] Major depressive disorder, recurrent, moderateType 2 diabetes mellitus with other specified complicationHyperlipidemia, unspecifiedPolyosteoarthritis, unspecifiedUnsteadiness on feetAnxiety disorder, unspecifiedOther problems related to medical facilities and other health careLow back pain, unspecifiedUnspecified fall, initial encounter No Data Available [facility]18[place]20[place] No Data Available [facility] No Data Available [facility] No Data Available [facility] No Data Available [facility]20[place] Essential (primary) hypertensionType 2 diabetes mellitus with other specified complicationNicotine dependence, unspecified, in remissionHyperlipidemia, unspecifiedOther problems related to medical facilities and other health care No Data Available [facility] No Data Available [facility] No Data Available [facility] No Data Available [facility] No Data Available [facility] No Data Available [facility]20[place] Other malaiseRepeated fallsPersonal history of other medical treatment No Data Available [facility] 02/[place]20[place] No Data Available [facility]20[place] No Data Available [facility] 02[place] No Data Available [facility] 03[place]08/2024 Anxiety disorder, unspecifiedAcute upper respiratory infection, unspecifiedOther problems related to medical facilities and other health care No Data Available [facility] 03[place] No Data Available [facility] Estab. patient 10-29min; 1 minor problem; add add modifier 95 for video, modifier 93 for phone [facility] 03[place]12/2024 Acute upper respiratory infection, unspecifiedOther problems related to medical facilities and other health care Estab. patient 10-29min; 1 minor problem; add add modifier 95 for video, modifier 93 for phone [facility] 03/12/20[place] Estab. patient 10-29min; 1 minor problem; add add modifier 95 for video, modifier 93 for phone [facility]2024 Low back pain, unspecifiedOt her problems related to medical facilities and other health care RN, CN or CP time with patient by phone; use with 1111F, BP, A1c or other CPTII codes [facility] 06[place]/2024 Encounter for other specifie d aftercare RN, CN or CP time with patient by phone; use with 1111F, BP, A1c or other CPTII codes [facility] 06[place]/20[place] Estab. patient 10-29min; 1 minor problem; add add modifier 95 for video, modifier 93 for [facility] 06/04/2024 Unspecified abdominal painOt her problems related to medical facilities and other health care Estab. patient 10-29min; 1 minor problem; add add modifier 95 for video, modifier 93 for phone [facility] [place] 2024 Type 2 diabetes mellitus wit h other specified complicationHyperlipidemia, unspecifiedEmphysema, unspecifiedUnspecified urinary incontinenceUnspecified fall, subsequent encounterPersonal history of other medical treatment Estab. patient 10-29min; 1 minor problem; add add modifier 95 for video, modifier 93 for phone [facility] [place] 20[place] Estab. patient 10-29min; 1 minor problem; add add modifier 95 for video, modifier 93 for phone [facility] [place] 20[place] Estab. patient 10-29min; 1 minor problem; add add modifier 95 for video, modifier 93 for phone [facility] [place]09/2024 Type 2 diabetes mellitus wit h other specified complicationHyperlipidemia, unspecifiedOther problems related to medical facilities and other health care Estab. patient 10-29min; 1 minor problem; add add modifier 95 for video, modifier 93 for phone [facility] [place] Estab. patient 10-29min; 1 minor [...] for phone [facility] [place] Estab. patient 10-29min; 1 minor [...] for phone [facility] [place]20[place] Other problems related to [...] for phone [facility] [place] Estab. patient 10-29min; 1 minor [...] for phone [facility] [place] 09[place]16/20[place] Estab. patient 10-29min; 1 minor problem; add add modifier 95 for video, modifier 93 for phone [facility] [place] 09[place]22/2024 Dorsalgia, unspecifiedUnsteadiness on feetEncounter for issue of repeat prescriptionHistory of falling Estab. patient 10-29min; 1 minor problem; add add modifier 95 for video, modifier 93 for phone [facility] [place] 09/22/20[place] Estab. patient 10-29min; 1 minor problem; add add modifier 95 for video, modifier 93 for phone [facility] [place] Estab. patient 10-29min; 1 minor problem; add add modifier 95 for video, modifier 93 for phone [facility] [place] 09/22/20[place] Estab. patient 10-29min; 1 minor problem; add add modifier 95 for video, modifier 93 for phone [facility] [place]20[place] Estab. patient 10-29min; 1 minor problem; add add modifier 95 for video, modifier 93 for phone [facility] [place]20[place] Dorsalgia, unspecifiedUnsteadiness on feetOther problems related to medical facilities and other health careHistory of falling Estab. patient 10-29min; 1 minor problem; add add modifier 95 for video, modifier 93 for phone [facility] [place] 09/[place]/20[place] Estab. patient 10-29min; 1 minor problem; add add modifier 95 for video, modifier 93 for phone [facility] [place] Estab. patient 10-29min; 1 minor problem; add add modifier 95 for video, modifier 93 for phone [facility] [place]2024 History of fallingDorsalgia, unspecifiedUnsteadiness on feetOther problems related to medical facilities and other health carePolyosteoarthritis, unspecified Vital Signs Date of Collection Vitals 2022-02-19 [...] tive Time Current Smoking Status Former smoker 2025-01-09 5 Sex Male Gender identity Man History of Procedures Procedures Service Procedure code Service date Servicing provider Phone# New patient,40-59min; chronic exacerbation, 2 stable chronic or 1 acute illness add add modifier 95 for video (do not use for phone, instead use 46970-96) 00464 2022-02-19 No Data Available No Data Availa [...] 1111F, BP, A1c or other CPTII codes 48027 2022-10-14 No Data Available No Data Avai lable Medications prescribed in hospital were reviewed and reconciled against what they were taking prior to admission during today's visit. (1111F) 1111F 2022-10-14 No Data Available No Data Availa ble Estab. patient 30-39min; chronic exacerbation, 2 stable chronic or 1 acute illness add add modifier 95 for video, (do not use for phone, instead use 80075-47) 78323 2022-10-18 No Data Available No Data Availa [...] reviews and reporting CPTII codes (1111F, etc) 47899 2022-11-25 No Data Available No Data Availa ble DBP <80 (3078F) 3078F 2022-11-25 No Data Available No Data Available SBP < 130 (3074F) 3074F 2022-11-25 No Data Available No Data Available No Data Available [id number] 2023-02-24 No Data Available No Data Available [...] le No Data Available No Data Available [id number] 2023-05-02 No Data Available No Data Available [...] No Data Avail able No Data Available [id number] 2023-05-20 No Data Available No Data Available [...] le No Data Available No Data Available [id number] 2023-07-08 No Data Available No Data Available No Data Available 15782 2023-07-31 No Data Available No Data Available No Data Available 64772 2023-08-26 No Data Available No Data Available No Data Available [id number] 2023-10-02 No Data Available No Data Available Estab. patient 30-39min; chronic exacerbation, 2 stable chronic or 1 acute illness add add modifier 95 for video, (do not use for phone, instead use [id number]) [id number] 2023-12-10 No Data Available No Data Availa [...] No Data Avail able No Data Available [id number] 2023-12-18 No Data Available No Data Available [...] Available No Data Available No Data Available [id number] 2024-01-14 No Data Available No Data Available [...] No Data Availa ble No Data Available [id number] 2024-02-27 No Data Available No Data Available [...] No Data A vailable No Data Available [id number] 2024-03-08 No Data Available No Data Available [...] 95 for video, modifier 93 for phone 2024-03-12 No Data Available No Data Availa ble Medication List Documented (1159F) 1159F 2024-03-12 No Data Available No Data Colette ilable Estab. patient 10-29min; 1 minor problem; add add modifier 95 for video, modifier 93 for phone 2024-04-07 No Data Available No Data Availa ble RN, CN or CP time with patient by phone; use with 1111F, BP, A1c or other CPTII codes 23832 2024-06-01 No Data Available No Data Avai lable Medications prescribed in hospital were reviewed and reconciled against what they were taking prior to admission during today's visit. (1111F) 1110F 2024-06-01 No Data Available No Data Availa [...] prior to admission during today's visit. (1111F) 2024 No Data Available No Data Availa ble Medication List Documented (1159F) 1159F 2024 No Data Available No Data Colette ilable Estab. patient 10-29min; 1 minor problem; add add modifier 95 for video, modifier 93 for phone [id number] 2024-06-09 No Data Available No Data Availa ble Most recent A1c (HbA1c) or GMI level >9% 3046F 2024-06-09 No Data Available No Data Availa ble Estab. patient 10-29min; 1 minor problem; add add modifier 95 for video, modifier 93 for phone [id number] 2024-06-10 No Data Available No Data Availa [...] 95 for video, modifier 93 for phone [id number] 2024-06-11 No Data Available No Data Availa ble Estab. patient 10-29min; 1 minor problem; add add modifier 95 for video, modifier 93 for phone [id number] 2024-06-15 No Data Available No Data Availa ble Most recent A1c (HbA1c) or GMI level 7-7.9% (3051F) 3051F 2024-06-15 No Data Available No Data Availa ble Estab. patient 10-29min; 1 minor problem; add add modifier 95 for video, modifier 93 for phone [id number] 2024-06-23 No Data Available No Data Availa ble Medication List Documented (1159F) 1159F 2024-06-23 No Data Available No Data Colette ilable Estab. patient 10-29min; 1 minor problem; add add modifier 95 for video, modifier 93 for phone [id number] 2024-09-14 No Data Available No Data Availa ble Estab. patient 10-29min; 1 minor problem; add add modifier 95 for video, modifier 93 for phone [id number] 2024-09-16 No Data Available No Data Availa ble Most recent A1c (HbA1c) or GMI level 8-9% (3052F) 3052F 2024-09-16 No Data Available No Data Availa ble Estab. patient 10-29min; 1 minor problem; add add modifier 95 for video, modifier 93 for phone [id number] 2024-09-23 No Data Available No Data Availa [...] 95 for video, modifier 93 for phone [id number] 2024-09-24 No Data Available No Data Availa ble SBP 130-139 (3075F) 3075F 2024-09-24 No Data Availabl e No Data Available DBP 80-89 (3079F) 3079F 2024-09-24 No Data Available No Data Available Estab. patient 10-29min; 1 minor problem; add add modifier 95 for video, modifier 93 for phone [id number] 2024-12-13 No Data Available No Data Availa ble Functional Status Functional Category Effective Dates ADLsDressing - Needs assista nceBathing - Needs assistanceToileting - Needs assistanceTransfers - Needs assistanceEating - IndependentiADLsShopping - Needs assistanceMedications - IndependentHousekeeping - Needs assistanceCooking - Needs assistanceFalls in last 6 months - Yes 2022-10-18 CHASSIS WIRER coming in M-F only one h our per day (originally approved for 10 hours) 2023-04-04 uses cane and walker at home to ambulate 2023-12-18 CHASSIS WIRER is his niece. [employer] 2023-12-18 has meals [...] other health careHistory of fallUnsteady gaitBack pain 2024-12-13 08:12:20 History of fallUnste shlomo gaitBack painOther problems related to medical facilities and other health careUnsteady gaitOsteoarthritis, multiple sites Plan of Care Date of Service Plans [...] denies monitoring BGLantus, TrulicityContinue to f/u w/ ecclesiastical worker q3-6 months, monitor BG levels, discussed dietary and exercise interventions, contact us if develop hyperglycemia s/sxStableAlbuterol, FloventMonitor O2, take medications as Rx, continue f/u care w/ PCP [id number], contact us if you develop respiratory distressStableTamsulosinMonitor urine output, continue taking medication as prescribed, f/u PCP [id number], contact us if develop acute decrease in [...] denies monitoring BGLantus, TrulicityContinue to f/u w/ ecclesiastical worker q3-6 months, monitor BG levels, discussed dietary and exercise interventions, contact us if develop hyperglycemia s/sxStableAlbuterol, FloventMonitor O2, take medications as Rx, continue f/u care w/ PCP [id number], contact us if you develop respiratory distressStableTamsulosinMonitor urine output, continue taking medication as prescribed, f/u PCP [id number], contact us if develop acute decrease in [...] denies monitoring BGLantus, TrulicityContinue to f/u w/ ecclesiastical worker q3-6 months, monitor BG levels, discussed dietary and exercise interventions, contact us if develop hyperglycemia s/sxStableAlbuterol, FloventMonitor O2, take medications as Rx, continue f/u care w/ PCP [id number], contact us if you develop respiratory distressStableTamsulosinMonitor urine output, continue taking medication as prescribed, f/u PCP [id number], contact us if develop acute decrease in [...] coping mechanisms and benefits of potential verbal lpsixfa68/18/23: feels more calm now that he's home; [...] denies monitoring BGLantus, TrulicityContinue to f/u w/ ecclesiastical worker q3-6 months, monitor BG levels, discussed dietary and exercise interventions, contact us if develop hyperglycemia s/sxCONTINGENCY PLANMember to call for the following symptoms: Blood sugar <70/ Blood sugar >300/ More thirsty than usual/ Urinating more than usualPlanned intervention:StableAlbuterol, FloventMonitor O2, take medications as Rx, continue f/u care w/ PCP [id number], contact us if you develop respiratory distressStableTamsulosinMonitor urine output, continue taking medication as prescribed, f/u PCP [id number], contact us if develop acute decrease in [...] denies monitoring BGLantus, TrulicityContinue to f/u w/ ecclesiastical worker q3-6 months, monitor BG levels, discussed dietary and exercise interventions, contact us if develop hyperglycemia s/sxCONTINGENCY PLANMember to call for the following symptoms: Blood sugar <70/ Blood sugar >300/ More thirsty than usual/ Urinating more than usualPlanned intervention:StableAlbuterol, FloventMonitor O2, take medications as Rx, continue f/u care w/ PCP [id number], contact us if you develop respiratory distressStableTamsulosinMonitor urine output, continue taking medication as prescribed, f/u PCP [id number], contact us if develop acute decrease in [...] joint pain increased [facility]. Follow-up with Don [...] denies monitoring BGLantus, TrulicityContinue to f/u w/ ecclesiastical worker q3-6 months, monitor BG levels, discussed dietary and exercise interventions, contact us if develop hyperglycemia s/sxCONTINGENCY PLANMember to call for the following symptoms: Blood sugar <70/ Blood sugar >300/ More thirsty than usual/ Urinating more than usualPlanned intervention: 05/20/23: had episodes of hypoglycemia in STR; have decreased lantus to 60Units per nightStableAlbuterol, FloventMonitor O2, take medications as Rx, continue f/u care w/ PCP [id number], contact us if you develop respiratory distressStableTamsulosinMonitor urine output, continue taking medication as prescribed, f/u PCP [id number], contact us if develop acute decrease in [...] joint pain increased Please [facility]. Follow-up with Don [...] denies monitoring BGLantus, TrulicityContinue to f/u w/ ecclesiastical worker q3-6 months, monitor BG levels, discussed dietary [...] date) tx from the hospital to a longterm for advanced dementia per cg. I left [...] date) tx from the hospital to a longterm for advanced dementia per cg. I left a message to the patient's son Manuel for add. information. Placed member on hold due to placement.08/26/23: Son reports that the patient returned home 2 weeks ago from SNF. The family has been providing 30/09 support but he reports that the patient needs more CHASSIS WIRER hours to continue to providing adequate care. I provided [facility] number for follow up. Denies [...] denies monitoring BGLantus, TrulicityContinue to f/u w/ ecclesiastical worker q3-6 months, monitor BG levels, discussed dietary [...] reports that the patient recently started with CHASSIS WIRER (niece) to help with his care. He was previously non-compliant with his medications and insulin; CHASSIS WIRER Crystal is helping with his medication management [...] joint pain increased Please [facility]. Follow-up with Don as needed for any acute or disease education needs that may arise 30/09.what should be done when the member calls: see each individual diagnosis for contingency plan07/31/23: Cg reports patient had AMS last week (unable to recall date) tx from the hospital to a longterm for advanced dementia per cg. I left a message to the patient's son Manuel for add. information. Placed member on hold due to placement.08/26/23: Son reports that the patient returned home 2 weeks ago from SNF. The family has been providing / support but he reports that the patient needs more CHASSIS WIRER hours to continue to providing adequate care. I provided [facility] number for follow up. Denies [...] denies monitoring BGLantus, TrulicityContinue to f/u w/ ecclesiastical worker q3-6 months, monitor BG levels, discussed dietary [...] reports that the patient recently started with CHASSIS WIRER (niece) to help with his care. He was previously non-compliant with his medications and insulin; CHASSIS WIRER Crystal is helping with his medication management due to BS in 300's avg.StableAlbuterol, FloventMonitor O2, take medications as Rx, continue f/u care w/ PCP [id number], contact us if you develop respiratory distressStableTamsulosinMonitor urine output, continue taking medication as prescribed, f/u PCP [id number], contact us if develop acute decrease in [...] but in pain and frustrated about reduced CHASSIS WIRER hours. Please keep a log and we [...] PT - asking PCP.Due to not enough CHASSIS WIRER presence, has fallen a number of times recently, and hurt his ribs badly.Also needs medication reminders. Reduced CHASSIS WIRER hours because they were sending meals on wheels. CHASSIS WIRER has been with him since August and [...] (with food)Patient verbalized understanding. Caregiver verbalized understanding.Reduced CHASSIS WIRER hours because they were sending meals on wheels but has not received the meals yet.Also needs medication reminders now that his CHASSIS WIRER is not there as much - at risk for noncompliance.Reduced CHASSIS WIRER hours because they were sending meals on wheels. CHASSIS WIRER has been with him since August and [...] Will send via sms to his CG milliWhen member to call: If he falls or [...] denies monitoring BGLantus, TrulicityContinue to f/u w/ ecclesiastical worker q3-6 months, monitor BG levels, discussed dietary [...] reports that the patient recently started with CHASSIS WIRER (niece) to help with his care. He was previously non-compliant with his medications and insulin; CHASSIS WIRER Crystal is helping with his medication management [...] denies monitoring BGLantus, TrulicityContinue to f/u w/ ecclesiastical worker q3-6 months, monitor BG levels, discussed dietary [...] reports that the patient recently started with CHASSIS WIRER (niece) to help with his care. He was previously non-compliant with his medications and insulin; CHASSIS WIRER Cyrstal is helping with his medication management due to BS in 300's avg.10.24: reports his BS have decreased. Now <200 average. Is f/u wit pcp and reports good bs and good BP during visit no records available to review today01/14/2024 patient visited ecclesiastical worker this week . patient states that his BG is controlled for the most part.StablePt denies monitoring BPLisinopril, MetoprololDiscussed dietary and exercise interventions, f/u w/ PCP q6-12 months, contact us develop emergent HTN s/sx1//24BP 150/76 today but in pain and frustrated about reduced CHASSIS WIRER hours. Please keep a log and we [...] joint pain increased [facility]. Follow-up with [...] at home and decided to get looked at.CHASSIS WIRER hours were reduced just as he is getting weaker and his walking is unsafe.Needs PT - asking PCP.Due to not enough CHASSIS WIRER presence, has fallen a number of times recently, and hurt his ribs badly.Also needs medication reminders. Reduced CHASSIS WIRER hours because they were sending meals on wheels. CHASSIS WIRER has been with him since August and [...] to seek medical assistance or to call [facility].03/08/24 Patient reports fever, chills and congestion [...] modifier 95)Continue to see PCP. Follow-up with [facility] as needed for any acute or [...] joint pain increased [facility]. Follow-up with [facility] as [...] pain without reliefER visit on 03/19/24 at [facility] for back pain. He reports feeling better, [...] with HLDA1C 11/7% 5Continue to f/u w/ ecclesiastical worker q3-6 months, monitor BG levels, discussed dietary and exercise interventions, contact us if develop hyperglycemia s/s06/03/24: CHASSIS WIRER/Ninoska Rojas reports that she recently restarted care [...] was hospitalized on 05/21-05/24 post fall at [facility].StableAlbuterol, FloventMonitor O2, take medications as Rx, continue f/u care w/ PCP [id number], contact us if you develop respiratory hgotkyve05/16/2024 patient states he feels well at the moment. 06/03/24: Denies dyspnea 2024-06-09 07:50:22 Televideo 10-29min; 1 minor problem; add add modifier 95 for video, modifier 93 for phoneContinue to see PCP. [facility] acute or disease education needs that may arise 30/09.Type 2 diabetes mellitus with HLDA1C 11/7% ontinue to f/u w/ ecclesiastical worker q3-6 months, monitor BG levels, discussed dietary and exercise interventions, contact us if develop hyperglycemia s/s06/03/24: CHASSIS WIRER/Ninoska Rojas reports that she recently restarted care [...] callback with continued hyperglycemia.DIABETES CONTINGENCY PLANLast updated: 06/09/2024[facility] to call for the following symptoms: Blood sugar <70 / Blood sugar >300 / DeliriumPlanned intervention: Increase short-acting insulin to lispro 2 units/ Encourage adequate water intake/ Limit high-sugar and high-carbohydrate foods/ Go for a walkPlease call if you experience ANDOMINAL PAIN, swelling, constipation, diarrhea, nausea or vomitingPlanned intervention: Prescribe medication as appropriatePSYCH CONTINGENCY PLANLast updated: 03/08/2024[facility] to call for the following [...] but in pain and frustrated about reduced CHASSIS WIRER hours. Please keep a log and we [...] that may arise 30/09.DIABETES CONTINGENCY PLANLast updated: 06/09/2024[facility] to call for the following symptoms: Blood sugar <70 / Blood sugar >300 / DeliriumPlanned intervention: Increase short-acting insulin to lispro 2 units/ Encourage adequate water intake/ Limit high-sugar and high-carbohydrate foods/ Go for a walkPlease call if you experience ANDOMINAL PAIN, swelling, constipation, diarrhea, nausea or vomitingPlanned intervention: Prescribe medication as appropriatePSYCH CONTINGENCY PLANLast updated: 03/08/2024[facility] to call for the following symptoms: Agitation/ [...] was hospitalized on 05/21-05/24 post fall at [facility].06/11/24: Cg Daniela reports that the patient is currently in the ER [facility]. Patient was send by ecclesiastical worker due to high BP, BS and possible [...] increase, new or worsening symptomsF/U with JILLIAN /12/02: ER visit 06/11, dx with strep throat at [facility]. Cg reports changes to insulin regimen due to hyperglycemia, pending MR records. Cg unable to recallDIABETES CONTINGENCY PLANLast updated: 06/09/2024[facility] to call for the following symptoms: Blood sugar <70 / Blood sugar >300 / DeliriumPlanned intervention: Increase short-acting insulin to lispro 2 units/ Encourage adequate water intake/ Limit high-sugar and high-carbohydrate foods/ Go for a walkPlease call if you experience ANDOMINAL PAIN, swelling, constipation, diarrhea, nausea or vomitingPlanned intervention: Prescribe medication as appropriatePSYCH CONTINGENCY PLANLast updated: 03/08/2024[facility] to call for the following [...] was hospitalized on 05/21-05/24 post fall at [facility].06/11/24: Cg Daniela reports that the patient is currently in the ER [facility]. Patient was send by ecclesiastical worker due to high BP, BS and possible infection. Cg reports that the patient complained of sore throat today. Reports BS yesterday 168 and he was feeling well. Scheduled a follow up for 06/15. Dx with strep throat, d/c with abx, MR requested.Type 2 diabetes mellitus with HLDA1C 11/7% 5Continue to f/u w/ ecclesiastical worker q3-6 months, monitor BG levels, discussed dietary and exercise interventions, contact us if develop hyperglycemia s/s/: CHASSIS WIRER/Ninoska Crystal reports that she recently restarted care [...] 30/09.Type 2 diabetes mellitus with HLDA1C 11/7% ontinue to f/u w/ ecclesiastical worker q3-6 months, monitor BG levels, discussed dietary and exercise interventions, contact us if develop hyperglycemia s/s06/03/24: CHASSIS WIRER/Ninoska Rojas reports that she recently restarted care [...] reports BS 260 (without am insulin). Reports CHASSIS WIRER will administer insulin soon. Insulin regimen updated. He will call with any concerns. Message left to [employer].DIABETES CONTINGENCY PLANLast updated: 06/09/2024[facility] to call for the following symptoms: Blood sugar <70 / Blood sugar >300 / DeliriumPlanned intervention: Increase short-acting insulin to lispro 2 units/ Encourage adequate water intake/ Limit high-sugar and high-carbohydrate foods/ Go for a walkPlease call if you experience ANDOMINAL PAIN, swelling, constipation, diarrhea, nausea or vomitingPlanned intervention: Prescribe medication as appropriatePSYCH CONTINGENCY PLANLast updated: 03/08/2024[facility] to call for the following [...] for phoneContinue to see PCP. Follow-up with [facility] as needed for any acute or disease education needs that may arise 30/09.Type 2 diabetes mellitus with HLDA1C 9% [id number] 11/7% ontinue to f/u w/ ecclesiastical worker q3-6 months, monitor BG levels, discussed dietary and exercise interventions, contact us if develop hyperglycemia s/s/: CHASSIS WIRER/Ninoska Rojas reports that she recently restarted care [...] reports BS 260 (without am insulin). Reports CHASSIS WIRER will administer insulin soon. Insulin regimen updated. He will call with any concerns. Message left to Daniela.09/14/24: Christopher Suarez reports that the patient A1C decreased to 9% recently. She has helped the patient make dietary changes, including changing regular soda to zero sugar alternative. Patient reports that he feels stable at this time.DIABETES CONTINGENCY PLANLast updated: 06/09/2024[facility] to call for the following symptoms: Blood sugar <70 / Blood sugar >300 / DeliriumPlanned intervention: Increase short-acting insulin to lispro 2 units/ Encourage adequate water intake/ Limit high-sugar and high-carbohydrate foods/ Go for a walkPlease call if you experience ANDOMINAL PAIN, swelling, constipation, diarrhea, nausea or vomitingPlanned intervention: Prescribe medication as appropriatePSYCH CONTINGENCY PLANLast updated: 03/08/2024[facility] to call for the following symptoms: Agitation/ Anxiety/ Insomnia/ Panic attacksPlanned intervention: Hydroxyzine (Vistaril) 25mg PO q6h PRN anxiety/ Encourage member to journal feelings/ Remind member of personal goal:/ Encourage use of home medication:/ Increase dose of current medication:/ Limit extra stimulation06/03/24: Cg requesting incontinence supplies, order placed on 06/08/24.09/14/24: Cg requesting washable bed chux and wipes. I provided number for [place] to add to current order. 2024-09-16 09:16:44 Estab. patient 10-29 min; 1 minor problem; add add modifier 95 for video, modifier 93 for phoneContinue to see PCP. [facility] any acute or disease education needs that may arise 30/09.DIABETES CONTINGENCY PLANLast updated: 06/09/2024[facility] to call for the following symptoms: Blood sugar <70 / Blood sugar >300 / DeliriumPlanned intervention: Increase short-acting insulin to lispro 2 units/ Encourage adequate water intake/ Limit high-sugar and high-carbohydrate foods/ Go for a walkPlease call if you experience ANDOMINAL PAIN, swelling, constipation, diarrhea, nausea or vomitingPlanned intervention: Prescribe medication as appropriatePSYCH CONTINGENCY PLANLast updated: 03/08/2024[facility] to call for the following symptoms: Agitation/ Anxiety/ Insomnia/ Panic attacksPlanned intervention: Hydroxyzine (Vistaril) 25mg PO q6h PRN anxiety/ Encourage member to journal feelings/ Remind member of personal goal:/ Encourage use of home medication:/ Increase dose of current medication:/ Limit extra stimulationType 2 diabetes mellitus with HLDA1C 9% [id number] 11/7% 5Continue to f/u w/ ecclesiastical worker q3-6 months, monitor BG levels, discussed dietary and exercise interventions, contact us if develop hyperglycemia s/s06/03/24: CHASSIS WIRER/Ninoska Crystal reports that she recently restarted care [...] reports BS 260 (without am insulin). Reports CHASSIS WIRER will administer insulin soon. Insulin regimen updated. He will call with any concerns. Message left to aDniela.09/14/24: Cg Daniela reports that the patient A1C [...] was hospitalized on 05/21-05/24 post fall at [facility]. Cg reports the patient had a [...] for ongoing monitoring and management #30 tablet [id number] Refill Diclofenac Sodium 1 % Gel 4 grams topically to affected area 4 times per day PRN pain #100 gram [id number] Refill QUEtiapine Fumarate 25 mg Tab TAKE [...] was hospitalized on 05/21-05/24 post fall at [facility]. Cg reports the patient had a [...] walker in the home. Fall precautions reviewed. 2024-12-13 08:12:20 Estab. patient 10-29 min; 1 minor problem; add add modifier 95 for video, modifier 93 for phoneContinue to see PCP. Follow-up with Don as needed for any acute or disease education needs that may arise.06/03/24: Patient was hospitalized on 05/21-05/24 post fall at [facility]. Cg reports the patient had a [...] walker in the home. Fall precautions reviewed. 12.13.24-had ER visit on 12.10.24 after a fall --walking to his wheelchair and CG states it was like he passed out but came right back awake. NO injuries in fall. ER completed CT scan and xray of back -all negative. -has Neurology follow up on 12.15.24. plans to discuss falls and ask about PT-encouraged use of Walker at home. reminders to use each time he gets up and to stand for a few mins prior to walking to get balance.FALL CONTINGENCY PLANMember to call for the following symptoms: Fall / Refusing to use walker / WeaknessPlanned intervention: Encourage extra fluid intake / Review importance of sitting for two to three minutes prior to standing after laying down-multiple falls-plans to see Neurology 12.15.24-CG to continue to encourage use of Walker -monitor BP and slow care movements from sitting to jtebbmpc-Muqoqtrwym-Imobptabd patch-follow ups with pcp Goals Date Goal 2022-02-19 Remember to monitor [...] up appointments with established PCP and Specialist. 2024-12-13 Reminded to call Car julio 30/09 for health issues discussed during visit or with any questions or concerns. Health Concerns Date Concern 2024-12-13 Patient/Guardian agr eed to visit via telehealth.Visit completed via:[ ] audio and video; [x] audio only 2024-12-13 ER Visit SummaryER yesenia ho date: 12.10.24Reason for ER visit: fallSummary of ER course: xray on back and Ct of head all negative findingsCurrent issues/current symptoms/outstanding follow-up needs: none currentPCP Follow-Up: plans to call for follow up todayDiscussed our goal of helping the member have more days at home rather than in the ER or the hospital. 2024-12-13 Concerns for today's visit:No acute concerns or needs. 2024-12-13 follow up on ER emeli aldana spoke to Niece/Christopher Suarez. States they were getting out to see Neurologist and she told member to wait in the care while she got wheelchair. He proceeded to get out of care after she said to wait and stumbled falling to concrete. Had CT of head which was negative and lower back xray-negative. Neg for UTI. rescheduled Neurology to 10.8.25. plans to discuss PT with Neurology. scheduled [facility] for next week.
--- OUTSIDE RECORDS SUMMARY | 2025-02-01 18:22 | XMS_ITS | Clinical Summary ---
Author Organization [facility] Address [address] [place] [address] Phone Care Team Providers Care Supervisor [place] Name Role Phone Physician, No Pcp Primary Care Provider Unavaila ble Allergies Active Allergy Reactions Criticality Noted Date Comments Hydromorphone Other,Hallucinations 12/30/2024 Oxycodone-Acetaminophen Hallucinations 12/31/19 Medications albuterol HFA (PROAIR HFA ; PROVENTIL HFA ; VENTOLIN HFA) 90 mcg/actuation inhaler Inhale 2 puffs by mouth every 6 (six) hours if needed for wheezing or shortness of breath. Active aspirin 81 mg chewable tablet Chew 1 tablet (81 mg total) 1 (one) time each day. Active atorvastatin (LIPITOR) 80 mg tablet Take 1 tablet (80 mg total) by mouth at bedtime. Active lisinopriL (PRINIVIL,ZESTRI L) 10 mg tablet Take 1 tablet (10 mg total) by mouth 1 (one) time each day. Active memantine (NAMENDA) 5 mg tablet Take 1 tablet (5 mg total) by mouth 2 (two) times a day. Active metoprolol tartrate (LOPRESSOR) 50 mg tablet Take 1 tablet (50 mg total) by mouth 2 (two) times a day. Active omeprazole (PriLOSEC) [address] capsule Take 1 capsule (40 mg total) by mouth 1 (one) time each day. Do not crush or chew. Active oxyBUTYnin XL (DITROPAN-XL) 10 mg 24 hr tablet Take 1 tablet (10 mg total) by mouth 1 (one) time each day. Do not crush, chew, or split. Active PARoxetine (PAXIL) 40 mg tablet Take 1 tablet (40 mg total) by mouth 1 (one) time each day in the morning. Active polyethylene glycol (MIRALAX) 17 gram packet Take 17 g by mouth 1 (one) time each day. Active QUEtiapine (SEROquel) 25 mg tablet Take 1 tablet (25 mg total) by mouth at bedtime. Active docusate sodium (COLACE) 100 mg capsule Take 1 capsule (100 mg total) by mouth 1 (one) time each day. Active tamsulosin (FLOMAX) 0.4 mg 24 hr capsule Take 1 capsule (0.4 mg total) by mouth 1 (one) time each day with breakfast. Capsules should be taken 30 minutes following the same meal each day. Active glucose 4 gram chewable tablet Chew 4 tablets (16 g total) if needed for low blood sugar. Active cyanocobalamin (VITAMIN B-12) 1,000 mcg tablet Take 1 tablet (1,000 mcg total) by mouth 1 (one) time each day. Active cholecalciferol (VITAMIN D-3) 50 mcg (2,000 unit) tablet Take 1 tablet (2,000 Units total) by mouth 1 (one) time each day. Active insulin lispro 100 unit/mL injection Inject 8 Units under the skin 3 (three) times a day before meals. -Administer within 15 minutes of a meal 15 to 20 units tid 5 Active amLODIPine (NORVASC) 10 mg tablet Take 1 tablet (10 mg total) by mouth 1 (one) time each day. 5 Active insulin glargine (LANTUS) 100 unit/mL injection Inject 50 Units under the skin 1 (one) time each day. 5 Active insulin glargine U-300 (Toujeo SoloStar U-300 Insulin) 300 unit/mL (1.5 mL) CONCENTRATED injection pen Inject 120 Units under the skin at bedtime. 025 Discontinu ed(Stop Taking at Discharge) oxyCODONE (ROXICODONE) 5 mg immediate release tablet Take 1 tablet (5 mg total) by mouth every 6 (six) hours if needed for severe pain for up to 2 days. Max Daily Amount: 20 mg 8 each 025 Active Problems Problem Noted Date Diagnosed Date Multiple fractures of ribs, left side, initial encounter for closed fracture 12/30/2024 Encounters Date Type Department Care Team Description 01/07/2025 Lab Requisition [facility] Lab [address] [place] [address] Bam Fishman MD Diabetes mellitus due to underlying condition with diabetic neuropathy, unspecified ([facility] V24, [facility] V28); Benign prostatic hyperplasia with lower urinary tract symptoms; Hyperlipidemia, unspecified; Pure hypercholesterolemia , unspecified 01/05/2025 Lab Requisition [facility] Lab [address] [place] [address] Bam Fishman MD Essential (primary) hypertension 12/30/2024 3:53 AM EDT - 01/04/2025 4:39 PM EDT Hospital Encounter [facility]rology [address] [place] [id number] Balaji Be MD Deslouches, Joshua, MD Flores, Carlos M, MD Mohani, Priya, MD Shah, Princy, MD Fall, initial encounter (Primary Dx); Altered mental status, unspecified altered mental status type; Closed fracture of multiple ribs of left side, initial encounter Discharge Disposition: Halfway Facility from Last 3 Months Social History Tobacco Use Types Packs/Day Years Used Date Smoking Tobacco: Former Cigarettes 0 Q uit: 12/30/2004 Smokeless Tobacco: Never Tobacco Cessation:Counseling Given: Not Answered Food Risk Answer Date Recorded Within the past 12 months we worried whether our food would run out before we got money to buy more. Never true 01/03/2025 Within the past 12 months th e food we bought just didn't last and we didn't have money to get more. Never true 01/03/2025 Interpersonal Safety Answer Date Record ed Physical Abuse Unrecognized value 12/30/2024 Verbal Abuse Unrecognized value 12/30/2024 Sex and Gender Information Value Date Recorded Sex Assigned at Not on file Legal Sex Male 9:10 PM EST Gender Identity Not on file Sexual Orientation Not on file Obstetrics History Last Filed Vital Signs Vital Sign Reading Time Taken Comments Blood Pressure 115/60 01/04/2025 2:08 PM EDT Pulse 59 01/04/2025 2:08 PM EDT Temperature 36.4 C (97.5 F) 01/04/2025 2:08 PM EDT Respiratory Rate 16 01/04/2025 2:08 PM EDT Oxygen Saturation 95% 01/04/2025 2:08 PM EDT Inhaled Oxygen Concentration - - Weight 109 kg (240 lb) 12/30/2024 3:57 AM EDT Height 162.6 cm (5' 4 ) 12/30/2024 3:57 AM EDT Body Mass Index 41.2 12/30/2024 3:57 AM EDT Plan of Treatment Health Maintenance Due Date Last Done Comments Colorectal Cancer Screening: Colonoscopy 1955 Diabetes: Annual Foot Exam 06/04/1963 Diabetes: Annual Retina Eye Exam 06/04/1963 Hepatitis A Vaccines (1 of 2 - Risk 2-dose series) 1972 Abdominal Aortic Aneurysm (AAA) Screen 04/04/2023 Cholesterol Screening (Lipid Panel) 04/04/2023 Hepatitis C Screening 04/04/2023 Medicare Annual Wellness Visit 04/04/2023 Depression Screening 03/10/2024 COVID-19 Vaccine ( season) 2024 Influenza Vaccine (#1) 2024 , 02/27/2022, 01/10/2021, Additional history exists Diabetes: Annual Urine Albumin-Creatinine Ratio (uACR) 12/30/2024 Diabetes: Blood Sugar Control Test (HGBA1C) 06/30/2025 12/30/2024, 06/09/2024 Social Influencers of Health Screening 01/03/2026 01/03/2025 Falls Risk Assessment 01/04/2026 01/04/2025 Diabetes: Annual GFR (Glomerular Filtration Rate) 01/07/2026 01/07/2025, 01/05/2025, 01/04/2025, Additional history exists Hypertension/CHF/CAD Annual BMP Blood Test 01/07/2026 01/07/2025, 01/05/2025, 01/04/2025, Additional history exists DTaP,Tdap,and Td Vaccines (3 - Td or Tdap) 03/22/2026 03/22/2016, 03/22/2016 Pneumococcal Vaccine: 50+ Years Completed 05/22/2022, 01/10/2001 Zoster Vaccines Completed 05/22/2022, 02/27/2022 RSV Immunization Adult Patients Completed 04/17/2023 HIB Vaccines Aged Out No [...] to complete this topic RSV Immunization Patients Under 20 months Aged Out No longer eligible based on patient's age to complete this topic Varicella Vaccines Aged Out No longer eligible based on patient's age to complete this topic Procedures Procedure Name Priority Date/Time Associated Diagnosis Comments BASIC METABOLIC PANEL Routine 01/07/2025 6:02 AM EDT Diabetes mellitus due to underlying condition with diabetic neuropathy, unspecified (CMS/HCC V24, CMS/HCC V28) Benign prostatic hyperplasia with lower urinary tract symptoms Hyperlipidemia, unspecified Pure hypercholesterolemi a, unspecified COMPLETE BLOOD COUNT Routine 01/07/2025 6:02 AM EDT Diabetes mellitus due to underlying condition with diabetic neuropathy, unspecified (CMS/HCC V24, CMS/HCC V28) Benign prostatic hyperplasia with lower urinary tract symptoms Hyperlipidemia, unspecified Pure hypercholesterolemi a, unspecified COMPREHENSIVE METABOLIC PANEL Routine 01/05/2025 4:35 AM EDT Essential (primary) hypertension COMPLETE BLOOD COUNT Routine 01/05/2025 4:35 AM EDT Essential (primary) hypertension ECG ANNOTATED 01/05/2025 POCT GLUCOSE BLOOD Routine 01/04/2025 11 :23 AM EDT POCT GLUCOSE BLOOD Routine 01/04/2025 7: 27 AM EDT MAGNESIUM Routine 01/04/2025 5:51 AM EDT BASIC METABOLIC PANEL Routine 01/04/2025 5:51 AM EDT COMPLETE BLOOD COUNT Routine 01/04/2025 5:51 AM EDT PHOSPHORUS Routine 01/04/2025 5:51 AM EDT POCT GLUCOSE BLOOD Routine 01/03/2025 8: 26 PM EDT POCT GLUCOSE BLOOD Routine 01/03/2025 4: 19 PM EDT POCT GLUCOSE BLOOD Routine 01/03/2025 11 :19 AM EDT BASIC METABOLIC PANEL Routine 01/03/2025 9:16 AM EDT LAVENDER - EDTA Routine 01/03/2025 9:12 AM EDT EXTRA TUBES Routine 01/03/2025 9:12 AM EDT POCT GLUCOSE BLOOD Routine 01/03/2025 7: 33 AM EDT POCT GLUCOSE BLOOD Routine 01/02/2025 8: 34 PM EDT POCT GLUCOSE BLOOD Routine 01/02/2025 4: 28 PM EDT BASIC METABOLIC PANEL Routine 01/02/2025 12:11 PM EDT POCT GLUCOSE BLOOD Routine 01/02/2025 11 :25 AM EDT POCT GLUCOSE BLOOD Routine 01/02/2025 8: 19 AM EDT MAGNESIUM Routine 01/02/2025 5:16 AM EDT BASIC METABOLIC PANEL Routine 01/02/2025 5:16 AM EDT COMPLETE BLOOD COUNT Routine 01/02/2025 5:16 AM EDT PHOSPHORUS Routine 01/02/2025 5:16 AM EDT POCT GLUCOSE BLOOD Routine 01/01/2025 9: 02 PM EDT POCT GLUCOSE BLOOD Routine 01/01/2025 4: 42 PM EDT POCT GLUCOSE BLOOD Routine 01/01/2025 11 :39 AM EDT POCT GLUCOSE BLOOD Routine 01/01/2025 8: 10 AM EDT CBC WITH AUTO DIFFERENTIAL Routine 01/01/2025 6:03 AM EDT MAGNESIUM Routine 01/01/2025 6:03 AM EDT CBC AND DIFFERENTIAL Routine 01/01/2025 6:03 AM EDT BASIC METABOLIC PANEL Routine 01/01/2025 6:03 AM EDT POCT GLUCOSE BLOOD Routine 12/31/2024 7: 50 PM EDT POCT GLUCOSE BLOOD Routine 12/31/2024 4: 22 PM EDT POCT GLUCOSE BLOOD Routine 12/31/2024 11 :25 AM EDT POCT GLUCOSE BLOOD Routine 12/31/2024 8: 45 AM EDT CBC WITH AUTO DIFFERENTIAL Routine 12/31/2024 5:43 AM EDT CBC AND DIFFERENTIAL Routine 12/31/2024 5:43 AM EDT MAGNESIUM Routine 12/31/2024 5:43 AM EDT BASIC METABOLIC PANEL Routine 12/31/2024 5:43 AM EDT POCT GLUCOSE BLOOD Routine 12/30/2024 8: 33 PM EDT POCT GLUCOSE BLOOD Routine 12/30/2024 4: 36 PM EDT POCT GLUCOSE BLOOD Routine 12/30/2024 12 :01 PM EDT RESPIRATORY VIRUS PANEL MOLECULAR STUDY STAT 12/30/2024 11:34 AM EDT POCT GLUCOSE BLOOD Routine 12/30/2024 10 :37 AM EDT POCT GLUCOSE BLOOD Routine 12/30/2024 10 :01 AM EDT POCT GLUCOSE BLOOD Routine 12/30/2024 8: 50 AM EDT B-TYPE NATRIURETIC PEPTIDE STAT 12/30/2024 8:02 AM EDT XR TIBIA FIBULA 2 VIEWS LEFT STAT 12/30/2024 6:[address] CHEST/ABDOMEN/PELVIS W CONTRAST STAT 12/30/2024 6:00 AM EDT CARUSO URINE CULTURE TUBE STAT 12/30/2024 5:46 AM EDT URINALYSIS WITH REFLEX MICROSCOPIC AND CULTURE STAT 12/30/2024 5:46 AM EDT URINALYSIS WITH REFLEX MICROSCOPIC AND CULTURE STAT 12/30/2024 5:46 AM EDT CULTURE URINE STAT 12/30/2024 5:46 AM EDT TROPONIN I HIGH SENSITIVITY Timed 12/30/2024 5:[address] HEAD WO CONTRAST STAT 12/30/2024 4 :[address] CERVICAL SPINE WO CONTRAST STAT 12/30/2024 4:32 AM EDT AMMONIA STAT 12/30/2024 4:25 AM EDT POCT GLUCOSE BLOOD Routine 12/30/2024 4: 13 AM EDT HEMOGLOBIN A1C Add-On 12/30/2024 4:13 AM EDT TREPONEMA PALLIDUM ANTIBODY WITH REFLEX TO RPR AND PARTICLE AGGLUTINATION STAT Add-on 12/30/2024 4:13 AM EDT CORTISOL STAT Add-on 12/30/2024 4:13 AM EDT ACETAMINOPHEN LEVEL STAT Add-on 12/30/2024 4 :13 AM EDT VITAMIN B12 AND FOLATE STAT Add-on 4:13 AM EDT THYROID STIMULATING HORMONE WITH REFLEX TO FREE T4 AND FREE T3 STAT Add-on 12/30/2024 4:13 AM EDT SALICYLATE LEVEL STAT Add-on 12/30/2024 4:13 AM EDT HIV 1, 2 ANTIBODY, P24 ANTIGEN WITH REFLEX TO DIFFERENTIATION STAT Add-on 12/30/2024 4:13 AM EDT ETHANOL STAT Add-on 12/30/2024 4:13 AM EDT PROTHROMBIN TIME WITH INR STAT 12/30/2024 4:13 AM EDT CBC WITH AUTO DIFFERENTIAL STAT 12/30/2024 4:13 AM EDT COMPREHENSIVE METABOLIC PANEL STAT 12/30/2024 4:13 AM EDT CREATINE KINASE AND CKMB STAT 12/30/2024 4:13 AM EDT TROPONIN I HIGH SENSITIVITY Timed 12/30/2024 4:13 AM EDT MAGNESIUM STAT 12/30/2024 4:13 AM EDT CBC AND DIFFERENTIAL STAT 12/30/2024 4:13 AM EDT ECG 12-LEAD STAT 12/30/2024 4:02 AM EDT from Last 3 Months Results * (ABNORMAL) Complete blood count (01/07/2025 6:02 AM EDT) Only the most recent of4 resultswithin the time period is included. [facility] WBC 13.0(H) 4.8 - 10.8 K/mcL LAB HEMETOLOGY METHOD 01/07/2025 11:04 AM EDT [facility] LAB RBC 3.80(L) 4.50 - 5.50 M/mcL LAB HEMETOLOGY METHOD 01/07/2025 11:04 AM [facility] LAB Hemoglobin 11.4(L) 13.5 - 17.5 g/dL LAB HEMETOLOGY METHOD 01/07/2025 11:04 AM T [facility] LAB Hematocrit 35.4(L) 42.0 - 54.0 % LAB HEMETOLOGY METHOD 01/07/2025 11:04 AM EDT [facility] LAB MCV 92.9 79.0 - 98.0 FL LAB HEMETOLOGY METHOD 01/07/2025 11:04 AM [facility] LAB MCH 29.9 27.0 - 32.0 pcg LAB HEMETOLOGY METHOD 01/07/2025 11:04 AM EDT [facility] LAB MCHC 32.2 32.0 - 37.0 g/dL LAB HEMETOLOGY METHOD 01/07/2025 11:04 AM EDT [facility] RDW 12.7 11.0 - 15.0 % LAB HEMETOLOGY METHOD 01/07/2025 11:04 AM EDT [facility] Platelets 238 130 - 400 K/mcL LAB HEMETOLOGY METHOD 01/07/2025 11:04 AM EDT [facility] MPV 12.4(H) 7.0 - 11.0 FL LAB HEMETOLOGY METHOD 01/07/2025 11:04 AM EDT [facility] NRBC 0.0 <1.0 % [facility] 01/07/2025 11:04 AM EDT [facility] NRBC Absolute 0.00 <0.10 K/mcL [facility] 01/07/2025 11:04 AM EDT [facility] Blood Venous blood specimen / Unknown Venipuncture / Unknown 01/07/2025 6:02 AM EDT 01/07/2025 9:46 AM EDT Bam Fishman MD LAB BLOOD ORDERABLES Final R esult [facility] [address] [place] [address], * (ABNORMAL) Basic metabolic panel (01/07/2025 6:02 AM EDT) Only the most recent of7 resultswithin the time period is included. Sodium 140 133 - 145 mmol/L LAB CHEMISTRY METHOD 01/07/2025 11:34 AM EDT [facility] Potassium 4.4 3.5 - 5.5 mmol/L LAB CHEMISTRY METHOD 01/07/2025 11:34 AM EDT [facility] Chloride 104 96 - 110 mmol/L LAB CHEMISTRY METHOD 01/07/2025 11:34 AM [facility] CO2 31 21 - 32 mmol/L LAB CHEMISTRY METHOD 01/07/2025 11:34 AM [facility] Anion Gap 5 3 - 11 LAB CHEMISTRY METHOD 01/07/2025 11:34 AM [facility] Glucose 52(L) 70 - 100 mg/dL LAB CHEMISTRY METHOD 01/07/2025 11:34 AM [facility] BUN 26(H) 5 - 25 mg/dL LAB CHEMISTRY METHOD 01/07/2025 11:34 AM [facility] LAB Creatinine 1.07 0.70 - 1.30 mg/dL LAB CHEMISTRY METHOD 01/07/2025 11:34 AM [facility] LAB eGFR 74 >=60 mL/min/1. 73m2 LAB CHEMISTRY METHOD 01/07/2025 11:34 AM [facility] LAB Comment:Calculation based on the Chronic Kidney Disease Epidemiology Collaboration (CKD-EPI) equation refit without adjustment for race. BUN/Creatinine Ratio 24.3 LAB CHEMISTRY METHOD 01/07/2025 11:34 AM [facility] Calcium 9.2 8.5 - 10.5 mg/dL LAB CHEMISTRY METHOD 01/07/2025 11:34 AM [facility] LAB Blood Venous blood specimen / Unknown Venipuncture / Unknown 01/07/2025 6:02 AM EDT 01/07/2025 9:46 AM EDT us Bam Fishman MD LAB BLOOD ORDERABLES Final R esult [facility] [address] [place] [address], * (ABNORMAL) Comprehensive metabolic panel (01/05/2025 4:35 AM EDT) Only the most recent of2 resultswithin the time period is included. Sodium 138 133 - 145 mmol/L LAB CHEMISTRY METHOD 01/05/2025 2:20 PM [facility] Potassium 4.6 3.5 - 5.5 mmol/L LAB CHEMISTRY METHOD 01/05/2025 2:20 PM [facility] Chloride 104 96 - 110 mmol/L LAB CHEMISTRY METHOD 01/05/2025 2:20 PM [facility] CO2 30 21 - 32 mmol/L LAB CHEMISTRY METHOD 01/05/2025 2:20 PM [facility] Anion Gap 4 3 - 11 LAB CHEMISTRY METHOD 01/05/2025 2:20 PM [facility] Glucose 86 70 - 100 mg/dL LAB CHEMISTRY METHOD 01/05/2025 2:20 PM [facility] BUN 37(H) 5 - 25 mg/dL LAB CHEMISTRY METHOD 01/05/2025 2:20 PM [facility] Creatinine 1.59(H) 0.70 - 1.30 mg/dL LAB CHEMISTRY METHOD 01/05/2025 2:20 PM [facility] LAB eGFR 46(L) >=60 mL/min/1. 73m2 LAB CHEMISTRY METHOD 01/05/2025 2:20 PM [facility] LAB Comment:Calculation based on the Chronic Kidney Disease Epidemiology Collaboration (CKD-EPI) equation refit without adjustment for race. BUN/Creatinine Ratio 23.3 LAB CHEMISTRY METHOD 01/05/2025 2:20 PM [facility] Calcium 9.1 8.5 - 10.5 mg/dL LAB CHEMISTRY METHOD 01/05/2025 2:20 PM [facility] AST (SGOT) 70(H) 10 - 42 unit/L LAB CHEMISTRY METHOD 01/05/2025 2:20 PM [facility] ALT (SGPT) 84(H) 10 - 60 unit/L LAB CHEMISTRY METHOD 01/05/2025 2:20 PM EDT [facility] Alkaline Phosphatase 133(H) 42 - 121 unit/L LAB CHEMISTRY METHOD 01/05/2025 2:20 PM EDT [facility] Total Protein 6.2 6.0 - 8.0 g/dL LAB CHEMISTRY METHOD 01/05/2025 2:20 PM EDT [facility] Albumin 2.9(L) 3.2 - 5.0 g/dL LAB CHEMISTRY METHOD 01/05/2025 2:20 PM EDT [facility] Total Bilirubin 0.2 0.0 - 1.4 mg/dL LAB CHEMISTRY METHOD 01/05/2025 2:20 PM EDT [facility] Blood Venous blood specimen / Unknown Venipuncture / Unknown 01/05/2025 4:35 AM EDT 01/05/2025 10:12 AM EDT Bam Fishman MD LAB BLOOD ORDERABLES Final R esult [facility] [address] [place] [address], [place] [phone] * ECG-Annotated (01/05/2025) us Provider Onbase ECG ORDERABLES Final Result * (ABNORMAL) POCT Glucose, blood (01/04/2025 11:23 AM EDT) Only the most recent of25 resultswithin the time period is included. [facility] Glucose POCT 160(H) 70 - 100 mg/dL 01/04/2025 11:24 AM EDT [facility] Blood Capillary blood specimen / Unknown 01/04/2025 11:23 AM EDT 01/04/2025 11:26 AM EDT Rei Carbone MD LAB POINT OF CARE TE ST DOCKED DEVICE UNSOLICITED RESULTS Final Result [facility] [address] [place] [address], [place] [phone] * Phosphorus (01/04/2025 5:51 AM EDT) Only the most recent of2 resultswithin the time period is included. Phosphorus 4.5 2.5 - 4.5 mg/dL LAB CHEMISTRY METHOD 01/04/2025 7:31 AM EDT [facility] Blood Venous blood specimen / Unknown Venipuncture / Unknown 01/04/2025 5:51 AM EDT 01/04/2025 6:24 AM EDT us Rei Carbone MD LAB BLOOD ORDERABLES Final Resul t Performing Organization Address [facility] Co de Phone Number [facility] [address] [place] [address], * Magnesium (01/04/2025 5:51 AM EDT) Only the most recent of5 resultswithin the time period is included. Magnesium 2.0 1.9 - 2.6 mg/dL LAB CHEMISTRY METHOD 01/04/2025 7:28 AM EDT [facility] Blood Venous blood specimen / Unknown Venipuncture / Unknown 01/04/2025 5:51 AM EDT 01/04/2025 6:24 AM EDT us Rei Carbone MD LAB BLOOD ORDERABLES Final Resul t Performing Organization Address City/[facility]/ZIP Co de Phone Number [facility] [address] [place] [address], * Lavender tube (01/03/2025 9:12 AM EDT) Extra Tube Hold for add-ons. 01/03/2025 11:01 AM EDT [facility] Comment:Auto resulted. Blood Venous blood specimen / Unknown 01/03/2025 9:12 AM EDT 01/03/2025 9:22 AM EDT us Rei Carbone MD LAB BLOOD ORDERABLES Final Resul t [facility] [address] [place] [address], [place] [phone] * (ABNORMAL) CBC auto differential (01/01/2025 6:03 AM EDT) Only the most recent of3 resultswithin the time period is included. WBC 10.0 4.8 - 10.8 K/mcL LAB HEMETOLOGY METHOD 01/01/2025 7:03 AM [facility] RBC 3.70(L) 4.50 - 5.50 M/mcL LAB HEMETOLOGY METHOD 01/01/2025 7:03 AM [facility] Hemoglobin 11.0(L) 13.5 - 17.5 g/dL LAB HEMETOLOGY METHOD 01/01/2025 7:03 AM [facility] Hematocrit 33.4(L) 42.0 - 54.0 % LAB HEMETOLOGY METHOD 01/01/2025 7:03 AM [facility] MCV 91.3 79.0 - 98.0 FL LAB HEMETOLOGY METHOD 01/01[facility]2025 7[facility] MCH 30.1 27.0 - 32.0 pcg LAB HEMETOLOGY METHOD 01/01/2025 7:03 AM [facility] MCHC 32.9 32.0 - 37.0 g/dL LAB HEMETOLOGY METHOD 01/01/2025 7:03 AM [facility] RDW 12.3 11.0 - 15.0 % LAB HEMETOLOGY METHOD 01/01/2025 7:03 AM [facility] Platelets 203 130 - 400 K/mcL LAB HEMETOLOGY METHOD 01/01/2025 7:03 AM [facility] MPV 12.8(H) 7.0 - 11.0 FL LAB HEMETOLOGY METHOD 01/01/2025 7:03 AM [facility] NRBC 0.0 <1.0 % LAB HEMETOLOGY METHOD 01/01/2025 7:03 AM [facility] NRBC Absolute 0.00 <0.10 K/mcL LAB HEMETOLOGY METHOD 01/01/2025 7:03 AM [facility] Neutrophils Relative 65.3 % LAB HEMETOLOGY METHOD 01/01/2025 7:03 AM [facility] Lymphocytes Relative 25.2 % LAB HEMETOLOGY METHOD 01/01/2025 7:03 AM [facility] Monocytes Relative 6.2 % LAB HEMETOLOGY METHOD 01/01/2025 7:03 AM [facility] Eosinophils Relative 2.6 % LAB HEMETOLOGY METHOD 01/01/2025 7:03 AM [facility] Basophils Relative 0.3 % LAB HEMETOLOGY METHOD 01/01/2025 7:03 AM [facility] Immature Granulocytes Relative 0.4 % LAB HEMETOLOGY METHOD 01/01/2025 7:03 AM [facility] Neutrophils Absolute 6.53 1.50 - 7.00 K/mcL LAB HEMETOLOGY METHOD 01/01/2025 7:03 AM [facility] Lymphocytes Absolute 2.52 1.00 - 5.00 K/mcL LAB HEMETOLOGY METHOD 01/01/2025 7:03 AM [facility] Monocytes Absolute 0.62 0.20 - 1.00 K/mcL LAB HEMETOLOGY METHOD 01/01/2025 7:03 AM [facility] Eosinophils Absolute 0.26 0.00 - 0.50 K/mcL LAB HEMETOLOGY METHOD 01/01/2025 7:03 AM EDT [facility] Basophils Absolute 0.03 0.00 - 0.20 K/mcL LAB HEMETOLOGY METHOD 01/01/2025 7:03 AM EDT [facility] Immature Granulocytes Absolute 0.04(H) 0.00 - 0.03 K/mcL LAB HEMETOLOGY METHOD 01/01/2025 7:03 AM EDT [facility] Blood Venous blood specimen / Unknown Venipuncture / Unknown 01/01/2025 6:03 AM EDT 01/01/2025 6:44 AM EDT us Abi Andino MD LAB BLOOD ORDERABLES Final Resul t [facility] [address] [place] [address], * Respiratory virus panel molecular study (12/30/2024 11:34 AM EDT) Adenovirus Detection by PCR Not Detected Not Detected LAB MICROBIOLOGY METHOD 12/30/2024 1:30 PM EDT [facility] Influenza A PCR Not Detected Not Detected LAB MICROBIOLOGY METHOD 12/30/2024 1:30 PM EDT [facility] Influenza B PCR Not Detected Not Detected LAB MICROBIOLOGY METHOD 12/30/2024 1:30 PM EDT [facility] Coronavirus 229E Not Detected Not Detected LAB MICROBIOLOGY METHOD 12/30/2024 1:30 PM EDT [facility] Coronavirus HKU1 Not Detected Not Detected LAB MICROBIOLOGY METHOD 12/30/2024 1:30 PM EDT [facility] Coronavirus OC43 Not Detected Not Detected LAB MICROBIOLOGY METHOD 12/30/2024 1:30 PM EDT [facility] Coronavirus NL63 Not Detected Not Detected LAB MICROBIOLOGY METHOD 12/30/2024 1:30 PM EDT [facility] Parainfluenza Virus 1 Not Detected Not Detected LAB MICROBIOLOGY METHOD 12/30/2024 1:30 PM EDT [facility] Parainfluenza Virus 2 Not Detected Not Detected LAB MICROBIOLOGY METHOD 12/30/2024 1:30 PM EDT [facility] Parainfluenza Virus 3 Not Detected Not Detected LAB MICROBIOLOGY METHOD 12/30/2024 1:30 PM EDT [facility] Parainfluenza Virus 4 Not Detected Not Detected LAB MICROBIOLOGY METHOD 12/30/2024 1:30 PM EDT [facility] RSV PCR Not Detected Not Detected LAB MICROBIOLOGY METHOD 12/30/2024 1:30 PM EDT [facility] Human Metapneumovirus A and B Not Detected Not Detected LAB MICROBIOLOGY METHOD 12/30/2024 1:30 PM EDT [facility] Rhinovirus/Entero virus Not Detected Not Detected LAB MICROBIOLOGY METHOD 12/30/2024 1:30 PM EDT [facility] Bordetella pertussis Not Detected Not Detected LAB MICROBIOLOGY METHOD 12/30/2024 1:30 PM EDT [facility] Bordetella parapertussis Not Detected Not Detected LAB MICROBIOLOGY METHOD 12/30/2024 1:30 PM EDT [facility] Mycoplasma pneumo by PCR Not Detected Not Detected LAB MICROBIOLOGY METHOD 12/30/2024 1:30 PM EDT [facility] Chlamydia pneumoniae Not Detected Not Detected LAB MICROBIOLOGY METHOD 12/30/2024 1:30 PM EDT [facility] SARS COV-2 Not Detected Not Detected LAB MICROBIOLOGY METHOD 12/30/2024 1:30 PM EDT [facility] Swab Nasopharyngeal structure / Unknown Non-blood Collection / Unknown 12/30/2024 11:34 AM EDT 12/30/2024 12:04 PM EDT Narrative [facility] - 12/30/2024 1:30 PM EDT Testing was performed using the [employer] Respiratory Pathogen PCR Assay. All results must be correlated with the clinical findings. Results should not be used as the sole basis for diagnosis. False Negative results may occur from the presence of sequence variants in the region targeted by the assay or the presence of inhibitors. Results may be affected by concurrent antiviral/antimicrobial therapy or levels of organisms that are below the limit of detection. Blayne Munoz MD LAB MICROBIOLOGY - GENERAL OR DERABLES Final Result Performing Organization Address [facility] Co de Phone Number [facility] [address] [place] [address], * (ABNORMAL) B-type natriuretic peptide (12/30/2024 8:02 AM EDT) BNP 147(H) <=100 pcg/mL LAB CHEMISTRY METHOD 12/30/2024 10:08 AM EDT [facility] Blood Venous blood specimen / Unknown Venipuncture / Unknown 12/30/2024 8:02 AM EDT 12/30/2024 8:14 AM EDT Daryl Barone MD LAB BLOOD ORDERABLES Final Result Performing Organization Address [facility] Co de Phone Number [facility] [address] [place] [address], * XR Tibia Fibula 2 Views Left (12/30/2024 6:24 AM EDT) Anatomical Region Laterality Modality Lower Extremities, Lower Leg Left Rad iographic Imaging 12/30/2024 8:45 AM EDT Impressions 12/30/2024 8:46 AM EDT No fracture or significant soft tissue abnormality. -------- FINAL REPORT -------- Dictated By: Adarsh Iazguirre Dictated Date: 12/30/2024 08:45 ET Assigned Physician: Adarsh Izaguirre Reviewed and Electronically Signed By: Adarsh Izaguirre Signed Date: 12/30/2024 08:46 ET Workstation ID: [id number] Transcribed By: Self Edit Transcribed Date: 12/30/2024 08:45 ET Narrative 12/30/2024 8:46 AM EDT INDICATION: accidental fall Pain and swelling within the lower leg FINDINGS: AP and lateral views of the left lower leg obtained. No prior studies are available for comparison. Tibia and fibula are intact. No fracture or dislocation. No lytic or sclerotic lesions. No radiopaque foreign body or periosteal reaction. No soft tissue gas or significant swelling. Surgical clips noted along the medial aspect of the calf. Procedure Note Adarsh Izaguirre MD - 12/30/2024 INDICATION: accidental fall Pain and swelling within the lower leg FINDINGS: AP and lateral views of the left lower leg obtained. No priorstudies are available for comparison. Tibia and fibula are intact. No fracture or dislocation. No lytic orsclerotic lesions. No radiopaque foreign body or periosteal reaction. Nosoft tissue gas or significant swelling. Surgical clips noted along themedial aspect of the calf. IMPRESSION: No fracture or significant soft tissue abnormality. -------- FINAL REPORT -------- Dictated By: Adarsh Izaguirre Dictated Date: 12/30/2024 08:45 ET Assigned Physician: Adarsh Izaguirre Reviewed and Electronically Signed By: Adarsh Izaguirre Signed Date: 12/30/2024 08:46 ET Workstation ID: [id number] Transcribed By: Self Edit Transcribed Date: 12/30/2024 08:45 ET us Balaji Be MD IMG XR PROCEDURES Final Result * CT Chest/Abdomen/Pelvis w Contrast (12/30/2024 6:00 AM EDT) Anatomical Region Laterality Modality Body Computed Tomogra phy 12/30/2024 6:58 AM EDT Impressions 12/30/2024 6:58 AM EDT Acute fractures left anterior 3rd through 5th ribs. Cardiomegaly with atheromatous disease. Mild streaky bilateral infiltrates. CT ABDOMEN AND PELVIS WITH IV CONTRAST Comparison: CT/SR - ABDOMEN AND PELVIS C+ CT - 03/08/23 00:46 EST FINDINGS: There is no free air. There is no significant free fluid. No peritoneal or retroperitoneal hematoma. No contusion or laceration involving liver, spleen, pancreas, or kidney. No solid mass. Cholecystectomy. No ductal dilation or visible stone. No adrenal mass, enlargement, or nodule. No evidence for bladder rupture. The appendix is without acute pathology. No visible bowel wall contusion, laceration, or disruption. No dilation to suggest obstruction. Dense retained colonic stool. No adenopathy identified. Atheromatous abdominal aortic calcifications without aneurysm No body wall contusion or hematoma. No acute fracture or displacement. Degenerative spinal changes. IMPRESSION: No acute posttraumatic changes abdomen or pelvis. Dense retained colonic stool. This document has been electronically signed by: Gianni Denny MD on 12/30/2024 06:58:56 Narrative 12/30/2024 6:58 AM EDT INDICATION: trauma w pain CT CHEST WITH IV CONTRAST. Comparison: CT/SR - ABDOMEN AND PELVIS C+ CT - 03/08/23 00:46 EST FINDINGS: Mild cardiomegaly. No significant pericardial effusion. There is no thoracic aortic aneurysm. Atheromatous coronary arterial calcifications. Scattered bilateral streaky parenchymal opacities. There is no pneumothorax. There is no pleural effusion. There is no axillary, hilar, or mediastinal adenopathy. No body wall contusion or hematoma. Acute fractures left anterior 3rd through 5th ribs. Sternotomy. Degenerative spinal changes. Procedure Note Gianni Denny MD - 12/30/2024 INDICATION: trauma w pain CT CHEST WITH IV CONTRAST. Comparison: CT/SR - ABDOMEN AND PELVIS C+ CT - 03/08/23 00:46 EST FINDINGS: Mild cardiomegaly. No significant pericardial effusion. There is no thoracic aortic aneurysm. Atheromatous coronary arterial calcifications. Scattered bilateral streaky parenchymal opacities. There is no pneumothorax. There is no pleural effusion. There is no axillary, hilar, or mediastinal adenopathy. No body wall contusion or hematoma. Acute fractures left anterior 3rd through 5th ribs. Sternotomy. Degenerative spinal changes. IMPRESSION: Acute fractures left anterior 3rd through 5th ribs. Cardiomegaly with atheromatous disease. Mild streaky bilateral infiltrates. CT ABDOMEN AND PELVIS WITH IV CONTRAST Comparison: CT/SR - ABDOMEN AND PELVIS C+ CT - 03/08/23 00:46 EST FINDINGS: There is no free air. There is no significant free fluid. No peritoneal or retroperitoneal hematoma. No contusion or laceration involving liver, spleen, pancreas, or kidney. No solid mass. Cholecystectomy. No ductal dilation or visible stone. No adrenal mass, enlargement, or nodule. No evidence for bladder rupture. The appendix is without acute pathology. No visible bowel wall contusion, laceration, or disruption. No dilationto suggest obstruction. Dense retained colonic stool. No adenopathy identified. Atheromatous abdominal aortic calcifications without aneurysm No body wall contusion or hematoma. No acute fracture or displacement. Degenerative spinal changes. IMPRESSION: No acute posttraumatic changes abdomen or pelvis. Dense retained colonic stool. This document has been electronically signed by: Gianni Denny MD on 12/30/2024 06:58:56 Balaji Be MD IMG CT PROCEDURES Final Result * (ABNORMAL) Urinalysis with reflex microscopic and culture (12/30/2024 5:46 AM EDT) Pathologist [facility] Specific Luther Urine 1.027 1.003 - 1.030 LAB URINALYSIS - AUTOMATED METHOD 12/30/2024 7:39 AM EDT [facility] pH, Urine 5.0 5.0 - 8.0 pH LAB URINALYSIS - AUTOMATED METHOD 12/30/2024 7:39 AM [facility] Leukocytes, Urine Trace(A) Negative LAB URINALYSIS - AUTOMATED METHOD 12/30/2024 7:39 AM [facility] Nitrite, Urine Negative Negative LAB URINALYSIS - AUTOMATED METHOD 12/30/2024 7:39 AM [facility] Protein, Urine 100(A) <=Trace mg/dL LAB URINALYSIS - AUTOMATED METHOD 12/30/2024 7:39 AM [facility] Glucose, Urine 250(A) Negative mg/dL LAB URINALYSIS - AUTOMATED METHOD 12/30/2024 7:39 AM [facility] Ketones, Urine Trace(A) Negative mg/dL LAB URINALYSIS - AUTOMATED METHOD 12/30/2024 7:39 AM [facility] Urobilinogen, Urine 1.0 0.2 - 1.0 mg/dL LAB URINALYSIS - AUTOMATED METHOD 12/30/2024 7:39 AM [facility] Bilirubin, Urine Negative Negative LAB URINALYSIS - AUTOMATED METHOD 12/30/2024 7:39 AM [facility] Blood, Urine Negative Negative LAB URINALYSIS - AUTOMATED METHOD 12/30/2024 7:39 AM [facility] RBC, Urine 3.1 0 - 4 /HPF LAB URINALYSIS - AUTOMATED METHOD 12/30/2024 7:39 AM [facility] WBC, Urine 40(H) 0 - 4 /HPF LAB URINALYSIS - AUTOMATED METHOD 12/30/2024 7:39 AM [facility] Squamous Epithelial, Urine >100(H) 0 - 60 /LPF LAB URINALYSIS - AUTOMATED METHOD 12/30/2024 7:39 AM [facility] Bacteria, Urine Negative Negative /HPF LAB URINALYSIS - AUTOMATED METHOD 12/30/2024 7:39 AM [facility] Hyaline Casts, Urine 18.4(H) 0 - 3 /LPF LAB URINALYSIS - AUTOMATED METHOD 12/30/2024 7:39 AM [facility] Urine Urine specimen obtained by clean catch procedure / Unknown Non-blood Collection / Unknown 12/30/2024 5:46 AM EDT 12/30/2024 6:28 AM EDT us Balaji Be MD LAB URINE ORDERABLES Final Resu lt Performing Organization Address [facility]/ZIP Co de Phone Number [facility] [address] [place] [address], [place] [phone] * Caruso urine culture tube (12/30/2024 5:46 AM EDT) Extra Tube Hold for add-ons. 12/30/2024 8:01 AM EDT [facility] Comment:Auto resulted. Urine Urine specimen obtained by clean catch procedure / Unknown Non-blood Collection / Unknown 12/30/2024 5:46 AM EDT 12/30/2024 6:29 AM EDT us Balaji Be MD LAB URINE ORDERABLES Final Resu lt Performing Organization Address [facility] Co de Phone Number [facility] [address] [place] [address], [place] [phone] * Culture urine (12/30/2024 5:46 AM EDT) Culture, Urine No growth 12/31/2024 8:27 AM EDT [facility] Urine Urine specimen obtained by clean catch procedure / Unknown Non-blood Collection / Unknown 12/30/2024 5:46 AM EDT 12/30/2024 7:39 AM EDT us Balaji Be MD LAB MICROBIOLOGY - GENERAL ORDE RABLES Final Result Performing Organization Address [facility]/ZIP Co de Phone Number [facility] [address] [place] [address], [place] [phone] * Troponin I high sensitivity (12/30/2024 5:14 AM EDT) Only the most recent of2 resultswithin the time period is included. High Sensitivity Troponin I 10 <=79 ng/L LAB CHEMISTRY METHOD 12/30/2024 7:00 AM EDT [facility] Blood Venous blood specimen / Unknown Venipuncture / Unknown 12/30/2024 5:14 AM EDT 12/30/2024 6:28 AM EDT Narrative [facility] - 12/30/2024 7:00 AM EDT High levels of biotin in samples may falsely decrease hsTroponin values. Use caution when interpreting hsTroponin results in patients taking biotin who exhibit renal impairment (eGFR <60) or in patients taking more than 20 mg/day of biotin. us Balaji Be MD LAB BLOOD ORDERABLES Final Resu lt [facility] [address] [place] [address], * CT Cervical Spine wo Contrast (12/30/2024 4:32 AM EDT) Anatomical Region Laterality Modality Spine, C-spine Computed Tomogra phy 12/30/2024 5:1 0 AM EDT Impressions 12/30/2024 5:10 AM EDT No evidence of cervical spine injury. This document has been electronically signed by: Tee Go MD on 12/30/2024 05:10:03 Narrative 12/30/2024 5:10 AM EDT INDICATION: trauma, neck pain CT cervical spine without contrast Comparison: None provided Findings: The alignment of the cervical spine is normal. There is no fracture. There is multilevel degenerative disc disease. 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 There is carotid artery calcification. Procedure Note Tee Go MD - 12/30/2024 INDICATION: trauma, neck pain CT cervical spine without contrast Comparison: None provided Findings: The alignment of the cervical spine is normal. There is no fracture.There is multilevel degenerative disc disease. There is multileveluncovertebral joint osteoarthritis causing mild neuroforaminal stenoses. There is carotid artery calcification. IMPRESSION: No evidence of cervical spine injury. This document has been electronically signed by: Tee Go MD on 12/30/2024 05:10:03 Balaji Be MD [facility] CT PROCEDURES Final Result * CT Head wo Contrast (12/30/2024 4:32 AM EDT) Anatomical Region Laterality Modality Head and Neck Computed Tomogra phy 12/30/2024 5:07 AM EDT Impressions 12/30/2024 5:07 AM EDT No acute intracranial abnormality. This document has been electronically signed by: Tee Go MD on 12/30/2024 05:07:39 Narrative 12/30/2024 5:07 AM EDT INDICATION: Head injury with or without LOC CT head without contrast Comparison: None provided Findings: There is no acute intracranial hemorrhage. Ventricles are within normal limits in size. No mass effect or midline shift is present. The caruso-white matter differentiation appears normal. There is generalized cerebral atrophy. Hypoattenuation in the deep cerebral white matter is consistent with chronic small vessel ischemic disease. The visualized portions of the orbits, paranasal sinuses, and mastoids are unremarkable. No fractures are identified. Procedure Note Tee Go MD - 12/30/2024 INDICATION: Head injury with or without LOC CT head without contrast Comparison: None provided Findings: There is no acute intracranial hemorrhage. Ventricles are within normal limits in size. No mass effect or midline shift is present. Thegray-white matter differentiation appears normal. There is generalized cerebral atrophy. Hypoattenuation in the deep cerebral white matter is consistent with chronic small vessel ischemic disease. The visualized portions of the orbits, paranasal sinuses, and mastoidsare unremarkable. No fractures are identified. IMPRESSION: No acute intracranial abnormality. This document has been electronically signed by: Tee Go MD on 12/30/2024 05:07:39 Balaji Be MD [facility] CT PROCEDURES Final Result * Ammonia (12/30/2024 4:25 AM EDT) Ammonia 21 11 - 35 mcmol/L LAB CHEMISTRY METHOD 12/30/2024 4:53 AM EDT [facility] Blood Venous blood specimen / Unknown Venipuncture / Unknown 12/30/2024 4:25 AM EDT 12/30/2024 4:28 AM EDT us Balaji Be MD LAB BLOOD ORDERABLES Final Resu lt Performing Organization Address [facility] Co de Phone Number [facility] [address] [place] [address], [place] [phone] * HIV 1,2 antibody, p24 antigen with reflex to differentiation (12/30/2024 4:13 AM EDT) [facility] HIV Combo AB/AG Negative Negative LAB CHEMISTRY METHOD 12/30/2024 6:09 AM EDT [facility] Blood Venous blood specimen / Unknown Venipuncture / Unknown 12/30/2024 4:13 AM EDT 12/30/2024 4:22 AM EDT Narrative [facility] - 12/30/2024 6:09 AM EDT This assay is a 4th generation assay allowing for earlier detection of HIV infection by detecting the presence of the HIV-1 p24 antigen as well as the traditional antibodies to HIV type 1 (including group O) and type 2. Use of a 4th generation assay is the current CDC recommendation for HIV screening. us Balaji Be MD LAB BLOOD ORDERABLES Final Resu lt Performing Organization Address [facility] de Phone Number [facility] [address] [place] [address], [place] [phone] * Treponema pallidum antibody with reflex to RPR and particle agglutination (12/30/2024 4:13 AM EDT) [facility] T. Pallidum Antibodies Negative Negative LAB CHEMISTRY METHOD 12/30/2024 5:41 AM EDT [facility] Blood Venous blood specimen / Unknown Venipuncture / Unknown 12/30/2024 4:13 AM EDT 12/30/2024 4:22 AM EDT us Balaji Be MD LAB BLOOD ORDERABLES Final Resu lt Performing Organization Address [facility]/ZIP Co de Phone Number [facility] [address] [place] [address], [place] [phone] * Thyroid stimulating hormone with reflex to free t4 and free t3 (12/30/2024 4:13 AM EDT) TSH 1.71 0.40 - 4.00 mcIU/mL LAB CHEMISTRY METHOD 12/30/2024 5:30 AM EDT [facility] Blood Venous blood specimen / Unknown Venipuncture / Unknown 12/30/2024 4:13 AM EDT 12/30/2024 4:22 AM EDT us Balaji Be MD LAB BLOOD ORDERABLES Final Resu lt Performing Organization Address [facility] de Phone Number [facility] [address] [place] [address], [place] [phone] * (ABNORMAL) Vitamin B12 and folate (12/30/2024 4:13 AM EDT) Vitamin B-12 1,884(H) 250 - 900 pcg/mL LAB CHEMISTRY METHOD 12/30/2024 5:32 AM EDT [facility] Folate 5.1 2.8 - 17.0 ng/ml LAB CHEMISTRY METHOD 12/30/2024 5:32 AM EDT [facility] Blood Venous blood specimen / Unknown Venipuncture / Unknown 12/30/2024 4:13 AM EDT 12/30/2024 4:22 AM EDT us Balaji Be MD LAB BLOOD ORDERABLES Final Resu lt Performing Organization Address [facility]/ZIP Co de Phone Number [facility] [address] [place] [address], [place] [phone] * Protime-INR (12/30/2024 4:13 AM EDT) Pathologist [facility] Protime 12.4 10.6 - 13.9 sec LAB COAGULATION METHOD 12/30/2024 4:47 AM EDT [facility] INR 1.0 LAB COAGULATION METHOD 12/30/2024 4:47 AM EDT [facility] Blood Venous blood specimen / Unknown Venipuncture / Unknown 12/30/2024 4:13 AM EDT 12/30/2024 4:22 AM EDT Balaji Be MD LAB BLOOD ORDERABLES Final Resu lt Performing Organization Address [facility] de Phone Number [facility] [address] [place] [address], [place] [phone] * (ABNORMAL) Hemoglobin A1c (12/30/2024 4:13 AM EDT) [facility] Hemoglobin A1C 10.2(H) <6.5 % LAB CHEMISTRY METHOD 12/30/2024 11:17 AM EDT [facility] Mean Bld Glu Estim. 246 mg/dL LAB CHEMISTRY METHOD 12/30/2024 11:17 AM EDT [facility] Blood Venous blood specimen / Unknown Venipuncture / Unknown 12/30/2024 4:13 AM EDT 12/30/2024 4:22 AM EDT Blayne Munoz MD LAB BLOOD ORDERABLES Final Re sult Performing Organization Address [facility]/ZIP Co de Phone Number [facility] [address] [place] [address], [place] [phone] * CK total and CKMB (12/30/2024 4:13 AM EDT) Total CK 102 22 - 269 unit/L LAB CHEMISTRY METHOD 12/30/2024 5:05 AM EDT [facility] CK-MB 1.2 1.0 - 3.6 ng/mL LAB CHEMISTRY METHOD 12/30/2024 5:05 AM EDT [facility] CK-MB Index 0.0 0.0 - 5.0 LAB CHEMISTRY METHOD 12/30/2024 5:05 AM EDT [facility] Blood Venous blood specimen / Unknown Venipuncture / Unknown 12/30/2024 4:13 AM EDT 12/30/2024 4:22 AM EDT us Balaji Be MD LAB BLOOD ORDERABLES Final Resu lt Performing Organization Address [facility]/ZIP Co de Phone Number [facility] [address] [place] [address], [place] [phone] * Cortisol (12/30/2024 4:13 AM EDT) Pathologist [facility] Cortisol 12.2 mcg/dL LAB CHEMISTRY METHOD 12/30/2024 5:29 AM EDT [facility] Blood Venous blood specimen / Unknown Venipuncture / Unknown 12/30/2024 4:13 AM EDT 12/30/2024 4:22 AM EDT Narrative [facility] - 12/30/2024 5:29 AM EDT CORTISOL REFERENCE RANGE 8 AM SPEC: 5.0-23.0 mcg/dL 4 PM SPEC: 3.0-16.0 mcg/dL 8 PM SPEC: <5.0 mcg/dL us Balaji Be MD LAB BLOOD ORDERABLES Final Resu lt Performing Organization Address City/[facility]/ZIP Co de Phone Number [facility] [address] [place] [address], [place] [phone] * Ethanol (12/30/2024 4:13 AM EDT) Ethanol Level <3 0 - 10 mg/dL LAB CHEMISTRY METHOD 12/30/2024 5:05 AM EDT [facility] Blood Venous blood specimen / Unknown Venipuncture / Unknown 12/30/2024 4:13 AM EDT 12/30/2024 4:22 AM EDT us Balaji Be MD LAB BLOOD ORDERABLES Final Resu lt [facility] [address] [place] [address], [place] [phone] * (ABNORMAL) Acetaminophen level (12/30/2024 4:13 AM EDT) Acetaminophen Level <2.0(L) 10.0 - 30.0 mcg/mL LAB CHEMISTRY METHOD 12/30/2024 5:05 AM EDT [facility] Blood Venous blood specimen / Unknown Venipuncture / Unknown 12/30/2024 4:13 AM EDT 12/30/2024 4:22 AM EDT us Balaji Be MD LAB BLOOD ORDERABLES Final Resu lt Performing Organization Address City/[facility]/ZIP Co de Phone Number [facility] [address] [place] [address], [place] [phone] * (ABNORMAL) Salicylate level (12/30/2024 4:13 AM EDT) Salicylate Level <1.7(L) 2.0 - 29.0 mg/dL LAB CHEMISTRY METHOD 12/30/2024 5:05 AM EDT [facility] Blood Venous blood specimen / Unknown Venipuncture / Unknown 12/30/2024 4:13 AM EDT 12/30/2024 4:22 AM EDT Balaji Be MD LAB BLOOD ORDERABLES Final Resu lt [facility] [address] [place] [address], * ECG 12 lead (12/30/2024 4:02 AM EDT) Ventricular Rate ECG 59 BPM GEMUSE Atrial Rate 59 BPM GEMUSE P-R Interval 206 ms GEMUSE QRS Duration 96 ms GEMUSE Q-T Interval 444 ms GEMUSE QTc 439 ms GEMUSE P Wave [place] 58 degrees GEMUSE R [place] -26 degrees GEMUSE T [place] 43 degrees GEMUSE ECG Interpretation Sinus bradycardia Minimal voltage criteria for LVH, may be normal variant Septal infarct , age undetermined Abnormal ECG No previous ECGs available Confirmed by ALYSSA DUMAS ([id number]) on 12/30/2024 4:13:41 PM GEMUSE 12/30/2024 4:02 AM EDT 12/30/2024 4:13 PM EDT Balaji Be MD ECG ORDERABLES Final Result Performing Organization Address [facility] Co de Phone Number MIGUELANGEL from Last 3 Months Insurance [place] [address] MEDICAID - [place] Advance Directives Documents on File Type Date 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 Do not modify or discontinue any currently active code status orders. Healthcare Agents on File Name Relationship Healthcare Agent Relationshi p Communication Crystal Murphy Ninoska First Alternate Health Care Agent Manuel Garcia Second Alternate Health Car e Agent Care Teams Supervisor [place] Relationship Specialty Start Date End Date Physician, No Pcp PCP - General 12/30/24
--- OUTSIDE RECORDS SUMMARY | 2025-02-01 18:22 | XMS_ITS | Clinical Summary ---
Author Organization [facility] Address [address] [place], [place] [id number] Phone Care Team Providers Care Appraiser Real Estate Name Role Phone Unavailable Primary Care Provider [...] file Medical Devices Not on file [place] [address] [address] [place] [address] MEDICARE REPLACEMENT MEDICARE REPLACEMENT MEDICARE REPLACEMENT MEDICARE [place] [address] [place] [address] [place] [address] MEDICARE REPLACEMENT Additional Source Comments The information contained in this document represents components of the legal health record. It is not the complete legal health record.[facility]
--- OUTSIDE RECORDS SUMMARY | 2025-02-01 18:22 | XMS_ITS | Patient Health Record ---
Author Organization [facility] Address [address] [place] [address] Care Team Providers Care Debt Collection Specialist Name Role Phone Hung ANDERSEN Zumbrota Primary Care Provider Steven Callahan [phone] Reason For Referral No Information Medications Medication SIG (Take, Route, Frequency, Duration) Notes Start Date End Date Status Flovent HFA 110 MCG/ACT Aerosol TOME DOS INHALACIONES POR V?A ORAL DOS VECES AL D?A Inhalation; Duration: 30 Active Vitamin D3 50 MCG (2000 UT) Capsule 1 capsule Orally Once a day Active Ferrous Sulfate 325 (65 Fe) MG Tablet TOME JACEY TABLETA TODOS LOS D? Oral; Duration: 30 Active GlycoLax - Powder as directed Orally Active Metoprolol Tartrate 50 MG Tablet TOME JACEY TABLETA DOS VECES AL D?A Oral; Duration: 90 Active Docusate Sodium 100 MG Capsule TOME JACEY C?PSULA TODOS LOS D? CUANDO SEA NECESARIO Oral; Duration: 30 Active traMADol HCl 50 MG Tablet 1 tablet as ne eded Orally every 6 hours as needed for pain Active PARoxetine HCl 40 MG Tablet TOME JACEY TABLETA TODOS LOS D? EN LA MA?HARRY Oral; Duration: 90 Active Lisinopril 10 MG Tablet TOME JACEY TABLETA TODOS LOS HUA 90 Oral; Duration: 90 Activ e Aspirin Low Dose 81 MG Tablet Delayed Release TOME JACEY TABLETA POR V?A ORAL TODOS LOS D? Oral; Duration: 90 Active HumaLOG KwikPen 100 UNIT/ML Solution Pen-injector INJECT 50 UNITS TWICE A DAY SUBCUTANEOUS Subcutaneous; Duration: 15 Activ e Lantus SoloStar 100 UNIT/ML Solution Pen-injector INJECT 80 UNITS POR VIA SUBCUTANEA DOS VECES AL LORI 28 Subcutaneous; Duration: 84 Active Fluticasone Propionate 50 MCG/ACT Suspension SPRAY 1 SPRAY INTO EACH NOSTRIL TODOS LOS D? Nasal; Duration: 60 Active Basaglar KwikPen 100 UNIT/ML Solution Pen-injector as directed Subcutaneous Act josiane Atorvastatin Calcium 80 MG Tablet TOME JACEY TABLETA TODOS LOS D? Oral; Duration: 90 Active Gabapentin 400 MG Capsule TOME 2 C?PSULA S POR V?A ORAL DOS VECES AL D?A Oral; Duration: 90 Active Immunizations Vaccine Route Administration Date Status Comme nts Influenza Unknown 12/08/2018 Administered Social History Tobacco Use: Social History Observation Description Date Details (start date - stop date) Former Smoker NA - NA Social History Drugs/Alcohol: Social Info Question Answer Notes Alcohol Screen Did you have a drink containing alcohol in the past year? No Points 0 Interpretation Negative Tobacco Use: Social Info Question Answer Notes Tobacco Use/Smoking Patient is a former smoker How long has it been since you last smoked? > 10 years Additional Details Category Social Info Options Details Miscellaneous: Marital status: Occupation: retired Section Notes: Sober from [employer] since 2005 Problems Problem Type SNOMED Code ICD Code Onset Dates Problem Status W/U Status Risk Notes Problem Screening for malignant neoplasm of colon (007119376) Encounter for screening for malignant neoplasm of colon (Z12.11) Active confirmed Problem Preprocedural examination (488488401394848) Preprocedural examination (Z01.818) Active confirmed Problem Long-term current use of antiplatelet drug (757569327191248) Long-term use of aspirin therapy (Z79.82) Active confirmed Problem Constipation (96018937) Constipation, unspecified constipation type (K59.00) Active confirmed Problem Elevated liver enzymes level (854596285) Elevated LFTs (R94.5) Active confirmed Plan Of Treatment Future Test Test Name Order Date COLONOSCOPY 02/02/2019 Insurance Providers Payer Name Payer Address Payer Phone Subscriber Number Group Number Insured Name Patient Relationship to Insured Coverage Start Date Coverage End Date MEDICARE OF [place] [address] [place] [address] [id number] GLEN VALDERRAMA Self - patient is the insured [facility] [address] [place] [address] [id number] GLEN VALDERRAMA Self - patient is the insured Medical (General) History Medical History History ICD Code IDDM Hyperlipidemia Coronary artery disease Kidney disease Neuropathy Hypertension Benign hypertrophy of prostate Denies [place] COPD small CVA's Sleep apnea, but does not use a CPAP E[place] [address] Chavis--mild gastri tis and duodenitis, no Hpylori Retinopathy Neuropathy Peripheral vascular disease Depression Anemia CKD vitamn B12 deficiency benign positional vertigo Surgical History Surgery Date(Month/Year) 4V CABG 2005 [facility] for gallstone pancreatitis in [address] Crowley Prostate
--- OUTSIDE RECORDS SUMMARY | 2025-02-01 18:22 | XMS_ITS | Encounter Summary ---
Author Organization [facility] Address [address] [place] [address] Care Team Providers Care Social Director Name Role Phone Physician, No Pcp Primary Care Provider Unavaila ble Encounter Details Date Type Department Care Team (Late st Contact Info) Description 01/07/2025 Lab Requisition [facility] - Main Lab [address] [facility] [place] [address] Bam Fishman MD [address] [place] [address] Diabetes mellitus due to underlying condition with diabetic neuropathy, unspecified (CMS/HCC V24, CMS/HCC V28); Benign prostatic hyperplasia with lower urinary tract symptoms; Hyperlipidemia, unspecified; Pure hypercholesterolemia, unspecified Social History Tobacco Use Types Packs/Day Years Used Date Smoking Tobacco: Former Cigarettes 0 Q uit: 12/30/2004 Smokeless Tobacco: Never Food Risk Answer Date Recorded Within the [...] on file Sexual Orientation Not on file documented as of this encounter Plan of Treatment Not on file documented as of this encounter Procedures Procedure Name Priority Date/Time Associated Diagnosis Comments COMPLETE BLOOD COUNT Routine 01/07/2025 6:02 AM EDT Diabetes mellitus due to underlying condition with diabetic neuropathy, unspecified ([facility] V24, [facility] V28) Benign prostatic hyperplasia with lower urinary tract symptoms Hyperlipidemia, unspecified Pure hypercholesterolemia , unspecified BASIC METABOLIC PANEL Routine 01/07/2025 6:02 AM EDT Diabetes mellitus due to underlying condition with diabetic neuropathy, unspecified ([facility] V24, [facility] V28) Benign prostatic hyperplasia with lower urinary tract symptoms Hyperlipidemia, unspecified Pure hypercholesterolemia , unspecified documented in this encounter Results * (ABNORMAL) Basic metabolic panel (01/07/2025 6:02 AM EDT) Sodium 140 133 - 145 mmol/L LAB CHEMISTRY METHOD 01/07/2025 11:34 AM [facility] Potassium 4.4 3.5 - 5.5 mmol/L LAB CHEMISTRY METHOD 01/07/2025 11:34 AM [facility] Chloride 104 96 - 110 mmol/L LAB CHEMISTRY METHOD 01/07/2025 11:34 AM [facility] CO2 31 21 - 32 mmol/L LAB CHEMISTRY METHOD 01/07/2025 11:34 AM [facility] Anion Gap 5 3 - 11 LAB CHEMISTRY METHOD 01/07/2025 11:34 AM [facility] Glucose 52(L) 70 - 100 mg/dL LAB CHEMISTRY METHOD 01/07/2025 11:34 AM [facility] BUN 26(H) 5 - 25 mg/dL LAB CHEMISTRY METHOD 01/07/2025 11:34 AM [facility] Creatinine 1.07 0.70 - 1.30 mg/dL LAB CHEMISTRY METHOD 01/07/2025 11:34 AM EDT [facility] eGFR 74 >=60 mL/min/1. 73m2 LAB CHEMISTRY METHOD 01/07/2025 11:34 AM EDT [facility] Comment:Calculation based on the Chronic Kidney Disease Epidemiology Collaboration (CKD-EPI) equation refit without adjustment for race. BUN/Creatinine Ratio 24.3 LAB CHEMISTRY METHOD 01/07/2025 11:34 AM EDT [facility] Calcium 9.2 8.5 - 10.5 mg/dL LAB CHEMISTRY METHOD 01/07/2025 11:34 AM T [facility] Blood Venous blood specimen / Unknown Venipuncture / Unknown 01/07/2025 6:02 AM EDT 01/07/2025 9:46 AM EDT us Bam Fishman MD LAB BLOOD ORDERABLES Final R esult [facility] [address] [place] [address], * (ABNORMAL) Complete blood count (01/07/2025 6:02 AM EDT) WBC 13.0(H) 4.8 - 10.8 K/[facility] LAB HEMETOLOGY METHOD 01/07/2025 11:04 AM [facility] RBC 3.80(L) 4.50 - 5.50 M/mcL LAB HEMETOLOGY METHOD 01/07/2025 11:04 AM [facility] Hemoglobin 11.4(L) 13.5 - 17.5 g/dL LAB HEMETOLOGY METHOD 01/07/2025 11:04 AM [facility] Hematocrit 35.4(L) 42.0 - 54.0 % LAB HEMETOLOGY METHOD 01/07/2025 11:04 AM [facility] MCV 92.9 79.0 - 98.0 FL LAB HEMETOLOGY METHOD 01/07/2025 11:04 AM [facility] MCH 29.9 27.0 - 32.0 pcg LAB HEMETOLOGY METHOD 01/07/2025 11:04 AM EDT [facility] MCHC 32.2 32.0 - 37.0 g/dL LAB HEMETOLOGY METHOD 01/07/2025 11:04 AM [facility] RDW 12.7 11.0 - 15.0 % LAB HEMETOLOGY METHOD 01/07/2025 11:04 AM EDT [facility] Platelets 238 130 - 400 K/mcL LAB HEMETOLOGY METHOD 01/07/2025 11:04 AM T [facility] MPV 12.4(H) 7.0 - 11.0 FL LAB HEMETOLOGY METHOD 01/07/2025 11:04 AM [facility] NRBC 0.0 <1.0 % LAB HEMETOLOGY METHOD 01/07/2025 11:04 AM T [facility] NRBC Absolute 0.00 <0.10 K/mcL LAB HEMETOLOGY METHOD 01/07/2025 11:04 AM [facility] Blood Venous blood specimen / Unknown Venipuncture / Unknown 01/07/2025 6:02 AM EDT 01/07/2025 9:46 AM EDT us Bam Fishman MD LAB BLOOD ORDERABLES Final R esult [facility] [address] [place] [address], documented in this encounter Visit Diagnoses Diagnosis Diabetes mellitus due to underlying condition with diabetic neuropathy, unspecified (CMS/HCC V24, CMS/HCC V28) Benign prostatic hyperplasia with lower urinary tract symptoms Hyperlipidemia, unspecified Pure hypercholesterolemia, unspecified documented in this encounter Care Teams Social Director Relationship Specialty Start Date End Date Physician, No Pcp PCP - General 12/30/24 documented as of this encounter
--- OUTSIDE RECORDS SUMMARY | 2025-02-01 18:22 | XMS_ITS | Encounter Summary ---
Author Organization [facility] Address [address] [place] [address] Care Team Providers Care Clinical Laboratory Medical Director Name Role Phone Physician, No Pcp Primary Care Provider Unavaila ble Encounter Details Date Type Department Care Team (Late st Contact Info) Description 01/05/2025 Lab Requisition [facility] - Main Lab [address] [facility] [place] [address] Bam Fishman MD [address] [place] [address] Essential (primary) hypertension Social History Tobacco Use Types Packs/Day Years [...] Associated Diagnosis Comments COMPLETE BLOOD COUNT Routine 01/05/2025 4:35 AM EDT Essential (primary) hypertension COMPREHENSIVE METABOLIC PANEL Routine 01/05/2025 4:35 AM EDT Essential (primary) hypertension documented in this encounter Results * (ABNORMAL) Comprehensive metabolic panel (01/05/2025 4:35 AM EDT) Sodium 138 133 - 145 mmol/L LAB CHEMISTRY METHOD 01/05/2025 2:20 PM [facility] Potassium 4.6 3.5 - 5.5 mmol/L LAB CHEMISTRY METHOD 01/05/2025 2:20 PM [facility] Chloride 104 96 - 110 mmol/L LAB CHEMISTRY METHOD 01/05/2025 2:20 PM [facility] CO2 30 21 - 32 mmol/L LAB CHEMISTRY METHOD 01/05/2025 2:20 PM [facility] Anion Gap 4 3 - 11 LAB CHEMISTRY METHOD 01/05/2025 2:20 PM [facility] Glucose 86 70 - 100 mg/dL LAB CHEMISTRY METHOD 01/05/2025 2:20 PM [facility] BUN 37(H) 5 - 25 mg/dL LAB CHEMISTRY METHOD 01/05/2025 2:20 PM [facility] Creatinine 1.59(H) 0.70 - 1.30 mg/dL LAB CHEMISTRY METHOD 01/05/2025 2:20 PM [facility] eGFR 46(L) >=60 mL/min/1. 73m2 LAB CHEMISTRY METHOD 01/05/2025 2:20 PM [facility] Comment:Calculation based on the Chronic Kidney Disease Epidemiology Collaboration (CKD-EPI) equation refit without adjustment for race. BUN/Creatinine Ratio 23.3 LAB CHEMISTRY METHOD 01/05/2025 2:20 PM [facility] Calcium 9.1 8.5 - 10.5 mg/dL LAB CHEMISTRY METHOD 01/05/2025 2:20 PM EDT [facility] AST (SGOT) 70(H) 10 - 42 unit/L LAB CHEMISTRY METHOD 01/05/2025 2:20 PM EDT [facility] ALT (SGPT) 84(H) 10 - [...] mg/dL LAB CHEMISTRY METHOD 01/05/2025 2:20 PM T [facility] Blood Venous blood specimen / Unknown Venipuncture / Unknown 01/05/2025 4:35 AM EDT 01/05/2025 10:12 AM EDT Bam Fishman MD LAB BLOOD ORDERABLES Final R esult [facility] [address] [place] [address], * (ABNORMAL) Complete blood count (01/05/2025 4:35 AM EDT) WBC 9.9 4.8 - 10.8 K/[facility] LAB HEMETOLOGY METHOD 01/05/2025 11:29 AM EDT [facility] RBC 3.60(L) 4.50 - 5.50 M/mcL LAB HEMETOLOGY METHOD 01/05/2025 11:29 AM EDT [facility] Hemoglobin 10.7(L) 13.5 - 17.5 g/dL LAB HEMETOLOGY METHOD 01/05/2025 11:29 AM [facility] Hematocrit 33.5(L) 42.0 - 54.0 % LAB HEMETOLOGY METHOD 01/05/2025 11:29 AM [facility] MCV 93.8 79.0 - 98.0 FL LAB HEMETOLOGY METHOD 01/05/2025 11:29 AM [facility] MCH 30.0 27.0 - 32.0 pcg LAB HEMETOLOGY METHOD 01/05/2025 11:29 AM [facility] MCHC 31.9(L) 32.0 - 37.0 g/dL LAB HEMETOLOGY METHOD 01/05/2025 11:29 AM [facility] RDW 12.6 11.0 - 15.0 % LAB HEMETOLOGY METHOD 01/05/2025 11:29 AM [facility] Platelets 218 130 - 400 K/mcL LAB HEMETOLOGY METHOD 01/05/2025 11:29 AM [facility] MPV 12.5(H) 7.0 - 11.0 FL LAB HEMETOLOGY METHOD 01/05/2025 11:29 AM [facility] NRBC 0.0 <1.0 % LAB HEMETOLOGY METHOD 01/05/2025 11:29 AM [facility] NRBC Absolute 0.00 <0.10 K/mcL LAB HEMETOLOGY METHOD 01/05/2025 11:29 AM [facility] Blood Venous blood specimen / Unknown Venipuncture / Unknown 01/05/2025 4:35 AM EDT 01/05/2025 10:12 AM EDT us Bam Fishman MD LAB BLOOD ORDERABLES Final R esult [facility] [address] [place] [address], documented in this encounter Visit Diagnoses Diagnosis Essential (primary) hypertension Unspecified essential hypertension documented in this encounter Care Teams Clinical Laboratory Medical Director Relationship Specialty Start Date End Date Physician, No Pcp PCP - General 12/30/24 documented as of this encounter
--- OUTSIDE RECORDS SUMMARY | 2025-02-01 18:22 | XMS_ITS | Clinical Summary ---
Author Organization [employer] Address [address] [address] Care Team Providers Care Director Blood Bank Name Role Phone Unavailable Primary Care Provider [...] Most Recently Relevant to Health Maintenance [place] [phone] DENTAL - [facility]
== END 2025-02-01 15:22 | disposition home or self-care (01) ==
PROVIDERS: PCP Internal Medicine; Visit Provider Internal Medicine
DX: Z00.00 Encounter for general adult medical examination without abnormal findings (principal); E11.42 Type 2 diabetes mellitus with diabetic polyneuropathy; E11.319 Type 2 diabetes mellitus with unspecified diabetic retinopathy without macular edema; Z79.4 Long term (current) use of insulin; N52.9 Male erectile dysfunction, unspecified; F33.9 Major depressive disorder, recurrent, unspecified

== ENCOUNTER → 2025-02-01 14:28 | Outpatient (BNVA) | payer OTHER, SELFPAY | PROVIDERS: PCP Internal Medicine; Visit Provider Internal Medicine | DX: Z00.00 Encounter for general adult medical examination without abnormal findings (principal); F01.50 Vascular dementia, unspecified severity, without behavioral disturbance, psychotic disturbance, mood disturbance, and anxiety; D64.9 Anemia, unspecified; E78.5 Hyperlipidemia, unspecified; R80.9 Proteinuria, unspecified; E53.8 Deficiency of other specified B group vitamins; Z79.4 Long term (current) use of insulin; F33.9 Major depressive disorder, recurrent, unspecified; N52.9 Male erectile dysfunction, unspecified; Z13.31 Encounter for screening for depression; Z13.39 Encounter for screening examination for other mental health and behavioral disorders | CPT/HCPCS: 83036; 96127; 99212; 99397 ==